=== PATIENT | male | born 1975 | race African-American/Black ===

== ENCOUNTER 2019-06-23 00:52 | Emergency (ER) | payer BC, SELFPAY ==
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
[2019-06-23] MEDS ORDERED: KETOROLAC 30 MG/ML INJ ONE (02:51)
[2019-06-23 03:19] LABS: Basophils % 0.5 % (0-1.3); Hematocrit 37.8 % (39.6-49.0); Lymphocytes % 31.5 % (15.3-44.8); MPV 8.6 fL (7.6-11.3); RBC Red Blood Cell Count 4.49 M/uL (4.33-5.43)
[2019-06-23 03:31] LABS: Albumin 3.7 g/dL (3.4-5.0); Bilirubin Total 0.3 mg/dL (0.2-1.0); Potassium 3.3 mmol/L (3.5-5.1); Uric Acid 3.6 mg/dL (3.5-7.2)
--- NOTE | 2019-06-23 04:20 | ER ---
Nurse's Notes [facility] Name: Mike Francis III Age: 44 yrs Sex: Male : 1975 Arrival Date: 06/23/2019 Time: 00:55 Bed 28 Private MD: Diagnosis: Pain in unspecified joint;Hypokalemia Presentation: 06/23 01:00 Presenting complaint: Patient states: hand pain/swelling that started about a week ago, ch2 moves from hand to hand, and to left knee. Transition of care: patient was not received from another setting of care. Onset of symptoms was June 16, 2019. Risk Assessment: Do you want to hurt yourself or someone else? Patient reports no desire to harm self or others. Initial Sepsis Screen: Does the patient meet any 2 criteria? No. Patient's initial sepsis screen is negative. Does the patient have a suspected source of infection? No. Patient's initial sepsis screen is negative. Care prior to arrival: None. Activity prior to arrival: None. 01:00 Acuity: Unassigned ch2 01:00 Method Of Arrival: Ambulatory ch2 Triage Assessment: 01:05 General: Appears in no apparent distress. uncomfortable, well groomed, well developed, ch2 well nourished, Behavior is calm, cooperative, Reports Denies fever, feeling ill, fatigue, chills. Pain: Complains of pain in right hand Pain currently is 8 out of 10 on a pain scale. Quality of pain is described as pressure, tender, throbbing, Alleviated by nothing. Historical: - Allergies: 03:35 Iodine; ch2 - Immunization history:: patient does not get flu vaccinated per routine. Screenin:13 Abuse screen: Denies threats or abuse. Denies injuries from another. Nutritional ch2 screening: No deficits noted. Tuberculosis screening: No symptoms or risk factors identified. Never had TB. Fall Risk None identified. No fall in past 12 months (0 pts). No secondary diagnosis (0 pts). IV access (20 points). Ambulatory Aid- None/Bed Rest/Nurse Assist (0 pts). Gait- Normal/Bed Rest/Wheelchair (0 pts) Mental Status- Oriented to own ability (0 pts). Assessment: 01:15 General: Appears in no apparent distress. uncomfortable, well groomed, well developed, ch2 well nourished, Behavior is calm, cooperative, appropriate for age, Reports Denies fever, feeling ill, fatigue, chills. 01:15 Pain: Complains of pain in right hand pain/swelling currently in right hand, pt reports ch2 pain/swelling has occurred in left hand and left knee but not at this time Is. Neuro: No deficits noted. Level of Consciousness is awake, alert, obeys commands, Oriented to person, place, time, situation, Appropriate for age [employer] are weak on right Weakness in right hand(s) Gait is steady, Speech is normal, Facial symmetry appears normal, Pupils are PERRLA, Intact Denies numbness in right hand and left hand. Cardiovascular: Denies chest pain, fatigue, shortness of breath, Heart tones S1 S2 present Capillary refill < 3 seconds in right in left fingers Patient's skin is warm and dry. no visible wound, skin D\T\I. Respiratory: No deficits noted. Airway is patent Respiratory effort is even, unlabored, Respiratory pattern is regular, symmetrical, Onset: The symptoms/episode began/occurred Denies cough, shortness of breath. GI: No deficits noted. No signs and/or symptoms were reported involving the gastrointestinal system. Abdomen is round non-distended, Reports normal bowel habits. : No deficits noted. No signs and/or symptoms were reported regarding the genitourinary system. Denies burning with urination, pain. EENT: No deficits noted. No signs and/or symptoms were reported regarding the EENT system. Derm: No deficits noted. No signs and/or symptoms reported regarding the dermatologic system. Musculoskeletal: Reports weakness in right hand pain in right hand LROM, patient denies injury/trauma Denies numbness in, right hand and left hand. 02:50 Reassessment: Patient appears in no apparent distress at this time. No changes from ch2 previously documented assessment. Patient and/or family updated on plan of care and expected duration. Pain level reassessed. Patient is alert, oriented x 3, equal unlabored respirations, skin warm/dry/pink. 03:31 General: Behavior is calm, quiet, patient resting with eyes closed, snoring. ch2 04:15 Reassessment: Patient appears in no apparent distress at this time. No changes from ch2 previously documented assessment. Patient and/or family updated on plan of care and expected duration. Pain level reassessed. Patient is alert, oriented x 3, equal unlabored respirations, skin warm/dry/pink. sitting up in bed, awake, no complaints or concerns at this time. Vital Signs: 01:08 BP 168 / 96; Pulse 68; Resp 18; Temp 98.5; Pulse Ox 99% ; Weight 124.74 kg; Height 6 ch2 ft. 4 in. (193.04 cm); 01:30 BP 168 / 96; Pulse 69; Resp 16; Pulse Ox 98% ; ch2 02:45 BP 182 / 100; Pulse 62; Resp 16; Pulse Ox 100% ; ch2 03:45 BP 163 / 106; Pulse 79; Resp 16; Pulse Ox 96% ; ch2 04:45 BP 157 / 94; Pulse 59; Resp 18; Pulse Ox 97% ; ch2 01:08 Body Mass Index 33.47 (124.74 kg, 193.04 cm) ch2 Vitals: 02:45 Cardiac Rhythm Assessment Regular. ch2 ED Course: 00:55 Patient arrived in ED. ds1 01:00 Arm band placed on left wrist. Patient placed in an exam room, on a stretcher, on pulse ch2 oximetry, Patient notified of wait time. 01:08 George Lockhart PA is PHCP. jmm 01:08 Domenic Blackmon MD is Attending Physician. jmm 01:40 Inserted saline lock: 20 gauge in left antecubital area, using aseptic technique. ch2 01:42 Initial lab(s) drawn, by mo, sent to lab. ch2 01:46 Patient has correct armband on for positive identification. Bed in low position. Call ch2 light in reach. Side rails up X 1. 01:46 Pulse ox on. NIBP on. Door closed. Noise minimized. Lights dimmed. Pillow given. ch2 02:58 Triage completed. ch2 04:19 Desmond Hill MD is Referral Physician. lee 05:20 IV discontinued, intact, bleeding controlled, No redness/swelling at site. Pressure ch2 dressing applied. 06:00 Wrist Right 3 View XRAY In Process Unspecified. EDMS 06:00 Hand Right 3 View XRAY In Process Unspecified. EDMS 06:00 Hand Left 3 View XRAY In Process Unspecified. EDMS 06:00 Knee Left 3 View XRAY In Process Unspecified. EDMS Administered Medications: 02:50 Drug: Ketorolac 30 mg Route: IVP; Site: left antecubital; ch2 03:25 Follow up: Response: No adverse reaction; Marked relief of symptoms; Pain is decreased ch2 05:12 Drug: SOLU-Medrol 125 mg Route: IVP; Site: left antecubital; ch2 05:12 Drug: predniSONE 20 mg Route: PO; ch2 05:12 Drug: Potassium Effervescent Tablet 25 mEq Route: PO; ch2 Outcome: 04:20 Discharge ordered by . lee 05:24 Discharged to home ambulatory. ch2 05:24 Condition: improved ch2 05:24 Discharge instructions given to patient, Instructed on discharge instructions, follow up and referral plans. medication usage, Demonstrated understanding of instructions, follow-up care, medications, Prescriptions given X 3. 05:42 Patient left the ED. ch2 Signatures: Dispatcher [employer] EDMS Domenic Blackmon MD MD cha Mickail, Joel, PA PA Shiloh Rueda ds1 Criss Blas RN RN ch2 Corrections: (The following items were deleted from the chart) 03: 02:55 Presenting complaint: Patient states: hand pain/swelling that started about a ch2 week ago, moves from hand to hand, and to left knee ch2 03: 02:55 Transition of care: patient was not received from another setting of care. ch2 ch2 03: 02:55 Onset of symptoms was June 16, 2019 ch2 ch2 : 02:55 Risk Assessment: Do you want to hurt yourself or someone else? Patient reports no ch2 desire to harm self or others. ch2 03: 02:55 Initial Sepsis Screen: Does the patient meet any 2 criteria? No. Patient's ch2 initial sepsis screen is negative. Does the patient have a suspected source of infection? No. Patient's initial sepsis screen is negative. ch2 03: 02:55 Care prior to arrival: None. ch2 ch2 03: 02:55 Activity prior to arrival: None. ch2 ch2 03: 02:55 Method Of Arrival: Ambulatory ch2 ch2 02:55 Acuity: IFEANYI 5 ch2 ch2 03:00 General: Appears in no apparent distress. uncomfortable, well groomed, well ch2 developed, well nourished, Behavior is calm, cooperative, Reports Denies fever, feeling ill, fatigue, chills, ch2 03: 03:00 Pain: Complains of pain in right hand Pain currently is 8 out of 10 on a pain ch2 scale. Quality of pain is described as pressure, tender, throbbing, Alleviated by nothing. ch2 05:38 03:45 BP 157 / 94; Pulse 59bpm; Resp 18bpm; Pulse Ox 97%; ch2 ch2
--- NOTE | 2019-06-23 04:21 | EDPHYS ---
Physician Documentation [facility] Name: Mike Francis III Age: 44 yrs Sex: Male : 1975 Arrival Date: 06/23/2019 Time: 00:55 Bed 28 Private MD: ED Physician Domenic Blackmon HPI: 06/23 01:44 This 44 yrs old Black Male presents to ER via Unassigned with complaints of Hand jmm Swelling, Hand Pain. 01:44 The patient or guardian reports pain. Onset: The symptoms/episode began/occurred jmm gradually, 1 week(s) ago. Modifying factors: The symptoms are alleviated by nothing, the symptoms are aggravated by movement. This is a 44 year old male with a history of dm, htn, that presents ot the ED with complaints of increased pain and swelling to his right wrist, right hand, left hand, left knee. Symptoms began approx 1 week ago and have gradually worsened since. . Historical: - Allergies: 03:35 Iodine; ch2 - Immunization history:: patient does not get flu vaccinated per routine. ROS: 01:44 Constitutional: Negative for fever, chills, and weight loss, Cardiovascular: Negative jmm for chest pain, palpitations, and edema, Respiratory: Negative for shortness of breath, cough, wheezing, and pleuritic chest pain. 01:44 MS/extremity: Positive for pain. 01:44 All other systems are negative. Exam: 01:44 Constitutional: This is a well developed, well nourished patient who is awake, alert, jmm and in no acute distress. Head/Face: atraumatic. Eyes: EOMI, no conjunctival erythema appreciated ENT: Moist Mucus Membranes Neck: Trachea midline, Supple Chest/axilla: Normal chest wall appearance and motion. Cardiovascular: Regular rate and rhythm. No edema appreciated Respiratory: Normal respirations, no respiratory distress appreciated Abdomen/GI: Non distended, soft 01:44 Musculoskeletal/extremity: pain noted diffusely to the right wrist joint, ip joints. left ip joints. no swelling appreciated to the left knee, FROM appreciated, compartment are soft, NVI. 01:44 Skin: Appearance: Color: normal in color. 01:44 Neuro: Orientation: is normal, Mentation: is normal, Memory: is normal. 01:44 Psych: Behavior/mood is pleasant, cooperative. Vital Signs: 01:08 BP 168 / 96; Pulse 68; Resp 18; Temp 98.5; Pulse Ox 99% ; Weight 124.74 kg; Height 6 ch2 ft. 4 in. (193.04 cm); 01:30 BP 168 / 96; Pulse 69; Resp 16; Pulse Ox 98% ; ch2 02:45 BP 182 / 100; Pulse 62; Resp 16; Pulse Ox 100% ; ch2 03:45 BP 163 / 106; Pulse 79; Resp 16; Pulse Ox 96% ; ch2 04:45 BP 157 / 94; Pulse 59; Resp 18; Pulse Ox 97% ; ch2 01:08 Body Mass Index 33.47 (124.74 kg, 193.04 cm) ch2 MDM: 01:09 Patient medically screened. [facility] 02:56 Data reviewed: vital signs, nurses notes. Transition of care: After a detail discussion alvin of the patient's case, care is transferred to Domenic Blackmon MD. 06/23 01:42 Order name: CBC with Diff [facility] 06/23 01:42 Order name: CMP [facility] 06/23 01:42 Order name: Uric Acid [facility] 06/23 03:23 Order name: CBC with Automated Diff; Complete Time: 04:18 EDMS 06/23 03:31 Order name: Comprehensive Metabolic Panel; Complete Time: 04:18 EDMS 06/23 03:31 Order name: Uric Acid; Complete Time: 04:18 EDMS 06/23 01:44 Order name: Wrist Right 3 View XRAY [facility] 06/23 01:44 Order name: Hand Right 3 View XRAY [facility] 06/23 01:44 Order name: Hand Left 3 View XRAY [facility] 06/23 01:44 Order name: Knee Left 3 View XRAY [facility] 06/23 01:42 Order name: Saline Lock [facility] Administered Medications: 02:50 Drug: Ketorolac 30 mg Route: IVP; Site: left antecubital; ch2 03:25 Follow up: Response: No adverse reaction; Marked relief of symptoms; Pain is decreased ch2 05:12 Drug: SOLU-Medrol 125 mg Route: IVP; Site: left antecubital; ch2 05:12 Drug: predniSONE 20 mg Route: PO; ch2 05:12 Drug: Potassium Effervescent Tablet 25 mEq Route: PO; ch2 Disposition: 04:21 Co-signature as Attending Physician, Domenic Blackmon MD I agree with the assessment and lee plan of care. Disposition: 06/23/19 04:20 Discharged to Home. Impression: Pain in unspecified joint, Hypokalemia. - Condition is Stable. - Discharge Instructions: Potassium Content of Foods, Musculoskeletal Pain, Hypokalemia, Joint Pain. - Prescriptions for Ibuprofen 800 mg Oral Tablet - take 1 tablet by ORAL route every 8 hours As needed take with food; 30 tablet. orphenadrine citrate 100 mg Oral Tablet Sustained Release - take 1 tablet by ORAL route 2 times per day As needed; 20 tablet. Medrol (Jaxon) 4 mg Oral Tablets, Dose Pack - take 1 tablet by ORAL route as directed - follow package instructions; 1 packet. - Medication Reconciliation Form, Thank You Letter, Antibiotic Education, Prescription Opioid Use form. - Follow up: Desmond Hill; When: 2 - 3 days; Reason: Recheck today's complaints, Continuance of care, Re-evaluation by your physician. Signatures: Dispatcher [employer] Domenic Porter MD MD cha Mickail, Joel, PA PA Criss Garibay, RN RN ch2 Corrections: (The following items were deleted from the chart) 05:42 04:20 06/23/2019 04:20 Discharged to Home. Impression: Pain in unspecified joint; ch2 Hypokalemia. Condition is Stable. Discharge Instructions: Joint Pain. Prescriptions for Ibuprofen 800 mg Oral Tablet - take 1 tablet by ORAL route every 8 hours As needed take with food; 30 tablet, orphenadrine citrate 100 mg Oral Tablet Sustained Release - take 1 tablet by ORAL route 2 times per day As needed; 20 tablet. and Forms are Medication Reconciliation Form, Thank You Letter, Antibiotic Education, Prescription Opioid Use. Follow up: Desmond Hill; When: 2 - 3 days; Reason: Recheck today's complaints, Continuance of care, Re-evaluation by your physician. [facility]
[2019-06-23] MEDS ORDERED: predniSONE 20 MG TAB ONE (05:05)
[2019-06-23] MEDS ORDERED: METHYLPREDNISOLONE 125 MG INJ ONE (05:05)
[2019-06-23] MEDS ORDERED: POTASSIUM 25 MEQ EFFERV TAB ONE (05:06)
[2019-06-23 11:07] VITALS: TEMP 98.5
[2019-06-23 11:11] VITALS: BP 157/94; O2SAT 97
--- NOTE | 2019-06-26 15:22 | RAD REPORT ---
EXAM DESCRIPTION: RAD - Hand Left 3 View - 06/23/2019 2:41 am CLINICAL HISTORY: PAIN COMPARISON: None. TECHNIQUE: XR HAND 3 OR MORE VIEWS 06/23/2019 1:44 AM MAITRE D' FINDINGS: There is an age-indeterminate deformity of the proximal base of the distal osseous body. J oint spaces are preserved. Soft tissues are unremarkable. IMPRESSION: Age-indeterminate abnormality of the proximal base of the distal fourth phalanx. Electronically signed by: Fabian Lorenzo MD 06/23/2019 3:02 AM MAITRE D' Due to temporary technical issues with the PACS/Fluency reporting system, reports are being signed by the in house radiologist as a courtesy to ensure prompt reporting. The interpreting radiologist is f ully responsible for the content of the report.
--- NOTE | 2019-06-26 15:24 | RAD REPORT ---
EXAM DESCRIPTION: RAD - Wrist Right 3 View - 06/23/2019 2:41 am CLINICAL HISTORY: Pain. COMPARISON: None. TECHNIQUE: AP, lateral, and oblique views of the right wrist. FINDINGS: There is dorsal wrist and forearm subcutaneous edema. There is no fracture. No bony malali gnment. Joint spaces appear normal. Normal bone density. No subcutaneous emphysema or foreign body. IMPRESSION: 1. Dorsal right wrist and forearm edema. No acute bony finding within the right wrist. Electronically signed by: Carolee Newman DO 06/23/2019 3:02 AM AXMINSTER RUG SETTER Due to temporary technical issues with the PACS/Fluency reporting system, reports are being signed by the in house radiologist as a courtesy to ensure prompt reporting. The interpreting radiologist is f ully responsible for the content of the report.
--- NOTE | 2019-06-26 15:25 | RAD REPORT ---
EXAM DESCRIPTION: RAD - Knee Left 3 View - 06/23/2019 2:41 am CLINICAL HISTORY: PAIN COMPARISON: None. TECHNIQUE: XR KNEE 3 VIEWS 06/23/2019 1:44 AM ASPHALT PLANT OPERATOR FINDINGS: There is no fracture. There is mild narrowing of the medial knee compartment. There is pre patellar soft tissue swelling. IMPRESSION: No acute osseous findings. Electronically signed by: Fabian Lorenzo MD 06/23/2019 3:16 AM [employer]HALT PLANT OPERATOR Due to temporary technical issues with the PACS/Fluency reporting system, reports are being signed by the in house radiologist as a courtesy to ensure prompt reporting. The interpreting radiologist is f ully responsible for the content of the report.
--- NOTE | 2019-06-26 15:27 | RAD REPORT ---
EXAM DESCRIPTION: RAD - Hand Right 3 View - 06/23/2019 2:41 am CLINICAL HISTORY: PAIN COMPARISON: None. TECHNIQUE: XR HAND 3 OR MORE VIEWS 06/23/2019 1:44 AM RETAIL SUPPORT MANAGER FINDINGS: There is no fracture. Joint spaces are preserved. There is mild dorsal soft tissue swell ing. IMPRESSION: No acute osseous findings. Electronically signed by: Fabian Lorenzo MD 06/23/2019 3:16 AM RETAIL SUPPORT MANAGER Due to temporary technical issues with the PACS/Fluency reporting system, reports are being signed by the in house radiologist as a courtesy to ensure prompt reporting. The interpreting radiologist is f ully responsible for the content of the report.
== END 2019-06-23 05:42 | disposition home or self-care (01) ==
LOC: ER 00:52
DX: E87.6 Hypokalemia (principal); M79.642 Pain in left hand; M79.641 Pain in right hand; M25.531 Pain in right wrist; Z91.048 Other nonmedicinal substance allergy status
CPT/HCPCS: 36415; 80053; 84550; 85025; 96374; 96375; 99284; J2930; J7512

== ENCOUNTER 2020-04-07 09:41 | Emergency (ER) | payer SELFPAY ==
[2020-04-07] MEDS ORDERED: METOCLOPRAMIDE 10 MG/2mL INJ ONE (11:03)
[2020-04-07] MEDS ORDERED: KETOROLAC 30 MG/ML INJ ONE (11:03)
[2020-04-07] MEDS ORDERED: DIPHENHYDRAMINE 50 MG/ML VIAL ONE (11:03)
[2020-04-07] MEDS ORDERED: NA CHLORIDE 0.9% 1,000 ML ONE (11:03)
--- NOTE | 2020-04-07 11:28 | RAD REPORT ---
EXAM DESCRIPTION: CT - Head Brain Wo Cont - 04/07/2020 11:04 am CLINICAL HISTORY: Headache COMPARISON: None. TECHNIQUE: Computed axial tomography of the head was obtained. IV contrast was not requested. All CT scans are performed using dose optimization technique as appropriate and may include automated exposure control or mA/KV adjustment according to patient size. FINDINGS: An intracranial bleed is not seen . The ventricles are normal in caliber. No extra-axial fluid collection is noted. Fluid within the sinuses/ mastoids is not seen. IMPRESSION: No acute intracranial abnormality is seen. If patient's symptoms persist MRI of the bra in would be recommended.
[2020-04-07 11:30] LABS: Absolute Lymphocytes (CBC) 2.6 K/uL (0.7-4.9); Basophils % 2.6 % (0-1.3); Hematocrit 38.4 % (39.6-49.0); Lymphocytes % 22.9 % (15.3-44.8); MPV 7.4 fL (7.6-11.3)
--- NOTE | 2020-04-07 11:43 | EDPHYS ---
Physician Documentation [facility] Name: Mike Francis III Age: 45 yrs Sex: Male : 1975 Arrival Date: 04/07/2020 Time: 09:44 Bed 4 Private MD: LUISA Physician Domenic Blackmon HPI: 04/07 10:42 This 45 yrs old Black Male presents to ER via Ambulatory with complaints of Headache > lee 24hrs Old, Nausea/Vomiting/Diarrhea, Abdominal Pain. 10:42 The patient complains of pain to the forehead, left frontal area and right frontal lee area. The patient describes the headache as a pressure. Onset: The symptoms/episode began/occurred 2 day(s) ago. Associated signs and symptoms: Pertinent positives: vomiting. Severity of symptoms: At its worst the pain was mild, in the emergency department the pain is unchanged. Headache History: The patient has had previous headaches and this one is similar to previous episodes. The symptoms are alleviated by nothing. the symptoms are aggravated by nothing. The patient has experienced similar episodes in the past, several times. Historical: - Allergies: 10:06 Iodine; ca1 - Home Meds: 10:06 atorvastatin 20 mg oral tab once daily [Active]; valsartan-hydrochlorothiazide 320-25 ca1 mg oral tab 1 tab once daily [Active]; baclofen 10 mg Oral tab 1 tab twice a day [Active]; carvedilol 25 mg oral tab 1 tab 2 times per day [Active]; fluoxetine 40 mg Oral cap 1 cap once daily [Active]; clonidine HCl 0.2 mg Oral tab 1 tab 2 times per day [Active]; hydrocodone-acetaminophen 7.5-325 mg Oral tab [Active]; etodolac 500 mg Oral tab 1 tab 2 times per day [Active]; buspirone 15 mg Oral tab 1 tab three times a day [Active]; metformin 850 mg Oral tab 1 tab 2 times per day [Active]; Trazodone Oral [Active]; amlodipine 10 mg tab 1 tab once daily [Active]; - PMHx: 10:06 Hypertension; Diabetes - NIDDM; High Cholesterol; Mild Heart Attack x 2; ca1 - PSHx: 10:06 Appendectomy; ca1 - Immunization history:: Adult Immunizations up to date. - Social history:: Smoking status: Patient reports the use of cigarette tobacco products, smokes one-half pack cigarettes per day. - Family history:: not pertinent. ROS: 10:42 Constitutional: Negative for fever, chills, and weight loss, Eyes: Negative for injury, lee pain, redness, and discharge, ENT: Negative for injury, pain, and discharge, Neck: Negative for injury, pain, and swelling, Cardiovascular: Negative for chest pain, palpitations, and edema, Respiratory: Negative for shortness of breath, cough, wheezing, and pleuritic chest pain, Abdomen/GI: Negative for abdominal pain, nausea, vomiting, diarrhea, and constipation, Back: Negative for injury and pain, : Negative for injury, bleeding, discharge, and swelling, MS/Extremity: Negative for injury and deformity, Skin: Negative for injury, rash, and discoloration, Psych: Negative for depression, anxiety, suicide ideation, homicidal ideation, and hallucinations, Allergy/Immunology: Negative for hives, rash, and allergies, Endocrine: Negative for neck swelling, polydipsia, polyuria, polyphagia, and marked weight changes. 10:42 Neuro: Positive for headache. Exam: 10:42 Constitutional: This is a well developed, well nourished patient who is awake, alert, lee and in no acute distress. Head/Face: Normocephalic, atraumatic. Eyes: Pupils equal round and reactive to light, extra-ocular motions intact. Lids and lashes normal. Conjunctiva and sclera are non-icteric and not injected. Cornea within normal limits. Periorbital areas with no swelling, redness, or edema. ENT: Nares patent. No nasal discharge, no septal abnormalities noted. Tympanic membranes are normal and external auditory canals are clear. Oropharynx with no redness, swelling, or masses, exudates, or evidence of obstruction, uvula midline. Mucous membranes moist. Neck: Trachea midline, no thyromegaly or masses palpated, and no cervical lymphadenopathy. Supple, full range of motion without nuchal rigidity, or vertebral point tenderness. No Meningismus. Chest/axilla: Normal chest wall appearance and motion. Nontender with no deformity. No lesions are appreciated. Cardiovascular: Regular rate and rhythm with a normal S1 and S2. No gallops, murmurs, or rubs. Normal PMI, no JVD. No pulse deficits. Respiratory: Lungs have equal breath sounds bilaterally, clear to auscultation and percussion. No rales, rhonchi or wheezes noted. No increased work of breathing, no retractions or nasal flaring. Abdomen/GI: Soft, non-tender, with normal bowel sounds. No distension or tympany. No guarding or rebound. No evidence of tenderness throughout. Back: No spinal tenderness. No costovertebral tenderness. Full range of motion. Male : Normal genitalia with no discharge or lesions. Skin: Warm, dry with normal turgor. Normal color with no rashes, no lesions, and no evidence of cellulitis. MS/ Extremity: Pulses equal, no cyanosis. Neurovascular intact. Full, normal range of motion. Neuro: Awake and alert, GCS 15, oriented to person, place, time, and situation. Cranial nerves II-XII grossly intact. Motor strength 5/5 in all extremities. Sensory grossly intact. Cerebellar exam normal. Normal gait. Psych: Awake, alert, with orientation to person, place and time. Behavior, mood, and affect are within normal limits. Vital Signs: 09:58 BP 118 / 85; Pulse 69; Resp 16 S; Temp 97.8(TE); Pulse Ox 99% on R/A; Weight 122.47 kg ca1 (R); Height 6 ft. 4 in. (193.04 cm) (R); Pain 7/10; 11:00 BP 122 / 73; Pulse 59; Resp 16; Pulse Ox 100% ; bp 12:18 BP 120 / 69; Pulse 63; Resp 17; Temp 97.9; Pulse Ox 100% ; bp 09:58 Body Mass Index 32.87 (122.47 kg, 193.04 cm) ca1 [place] Coma Score: 10:44 Eye Response: spontaneous(4). Verbal Response: oriented(5). Motor Response: obeys lee commands(6). Total: 15. MDM: 10:13 Patient medically screened. lee 10:44 Differential diagnosis: cluster headache, hyponatremia, sinusitis, tension headache. lee Data reviewed: vital signs, nurses notes, lab test result(s), radiologic studies, CT scan. Data interpreted: maxillofacial prosthetics dentist: not applicable for this patient encounter. rate is 69 beats/min, rhythm is regular, Pulse oximetry: on room air is 99 %. Test interpretation: by ED physician or midlevel provider:. Counseling: I had a detailed discussion with the patient and/or guardian regarding: the historical points, exam findings, and any diagnostic results supporting the discharge/admit diagnosis, lab results, radiology results, the need for outpatient follow up, for definitive care, a neurologist. 11:42 ED course: improveds, meds given for nausea, will follow up with dr ibrahim. [facility] 04/07 10:42 Order name: CBC with Diff [facility] 04/07 10:42 Order name: Comprehensive Metabolic Panel; Complete Time: 12:00 [facility] 04/07 10:42 Order name: Lipase; Complete Time: 12:00 [facility] 04/07 10:42 Order name: CT Head Brain wo Cont; Complete Time: 11:41 [facility] 04/07 10:43 Order name: CBC with Automated Diff; Complete Time: 11:41 [facility] 04/07 10:42 Order name: Urine Dipstick-Ancillary (obtain specimen); Complete Time: 12:18 [facility] Administered Medications: 11:00 Drug: NS 0.9% 1000 ml Route: IV; Rate: 1 bolus; Site: right antecubital; bp 12:18 Follow up: IV Status: Completed infusion; IV Intake: 1000ml bp 11:00 Drug: Reglan 10 mg Route: IVP; Site: right antecubital; bp 12:17 Follow up: Response: Pain is decreased bp 11:00 Drug: Benadryl 50 mg Route: IVP; Site: right antecubital; bp 12:17 Follow up: Response: Pain is decreased bp 11:00 Drug: TORadol 30 mg Route: IVP; Site: right antecubital; bp 12:17 Follow up: Response: Pain is decreased bp 12:05 Drug: Potassium Effervescent Tablet 50 mEq Route: PO; bp 12:18 Follow up: Response: No adverse reaction bp Disposition: 04/07/20 11:42 Discharged to Home. Impression: Type 2 diabetes mellitus, Headache, Migraine, Hypokalemia. - Condition is Stable. - Discharge Instructions: Type 2 Diabetes Mellitus, Diagnosis, Adult, Potassium Content of Foods, General Headache Without Cause, Migraine Headache, Hypertension, Migraine Headache, Jxdv-[id number], General Headache Without Cause, Gwqb-ek-Ibtn, Type 2 Diabetes Mellitus, Diagnosis, Adult, Sxas-iv-Qigj, Hypokalemia. - Prescriptions for Zofran 4 mg Oral Tablet - take 1 tablet by ORAL route every 12 hours As needed; 14 tablet. - Medication Reconciliation Form, Thank You Letter, Antibiotic Education, Prescription Opioid Use form. - Follow up: Private Physician; When: 2 - 3 days; Reason: Recheck today's complaints, Continuance of care, Re-evaluation by your physician. Follow up: Shmuel Ibrahim; When: 2 - 3 days; Reason: Recheck today's complaints, Re-evaluation by your physician. - Problem is new. - Symptoms have improved. Signatures: Dispatcher [employer] EDMS Domenic Blackmon MD MD cha Peltier, Brian RN RN bp Ayana, Angela RN RN ca1 Corrections: (The following items were deleted from the chart) 12:01 11:42 04/07/2020 11:42 Discharged to Home. Impression: Type 2 diabetes mellitus; lee Headache; Migraine. Condition is Stable. Discharge Instructions: Type 2 Diabetes Mellitus, Diagnosis, Adult, General Headache Without Cause, Migraine Headache, Hypertension, Migraine Headache, Xvnn-pz-Xzag, General Headache Without Cause, Jwzp-po-Bksb, Type 2 Diabetes Mellitus, Diagnosis, Adult, Azhn-rv-Rrrr. Prescriptions for Zofran 4 mg Oral Tablet - take 1 tablet by ORAL route every 12 hours As needed; 14 tablet. and Forms are Medication Reconciliation Form, Thank You Letter, Antibiotic Education, Prescription Opioid Use. Follow up: Private Physician; When: 2 - 3 days; Reason: Recheck today's complaints, Continuance of care, Re-evaluation by your physician. Follow up: Shmuel Ibrahim; When: 2 - 3 days; Reason: Recheck today's complaints, Re-evaluation by your physician. Problem is new. Symptoms have improved. [facility] 12:20 12:01 04/07/2020 11:42 Discharged to Home. Impression: Type 2 diabetes mellitus; bp Headache; Migraine; Hypokalemia. Condition is Stable. Discharge Instructions: Type 2 Diabetes Mellitus, Diagnosis, Adult, General Headache Without Cause, Migraine Headache, Hypertension, Migraine Headache, Jwmq-ng-Ioqp, General Headache Without Cause, Bezk-hf-Nxsz, Type 2 Diabetes Mellitus, Diagnosis, Adult, Vqvl-xy-Wvbj. Prescriptions for Zofran 4 mg Oral Tablet - take 1 tablet by ORAL route every 12 hours As needed; 14 tablet. and Forms are Medication Reconciliation Form, Thank You Letter, Antibiotic Education, Prescription Opioid Use. Follow up: Private Physician; When: 2 - 3 days; Reason: Recheck today's complaints, Continuance of care, Re-evaluation by your physician. Follow up: Shmuel Ibrahim; When: 2 - 3 days; Reason: Recheck today's complaints, Re-evaluation by your physician. Problem is new. Symptoms have improved. lee
--- NOTE | 2020-04-07 11:43 | ER ---
Nurse's Notes [facility] Name: Mike Francis III Age: 45 yrs Sex: Male : 1975 Arrival Date: 04/07/2020 Time: 09:44 Bed 4 Private MD: Diagnosis: Type 2 diabetes mellitus;Headache;Migraine;Hypokalemia Presentation: 04/07 09:58 Chief complaint: Patient states: Headache x 3 days. Mid abdominal pain and cramps, ca1 N/V/D x 3-4 days. Fever on and off x 3-4 days. Bilateral ear aches. Denies cough, nasal congestion. Coronavirus screen: Client denies travel out of the [place] in the last 14 days. At this time, the client does not indicate any symptoms associated with coronavirus-19. Ebola Screen: Patient negative for fever greater than or equal to 101.5 degrees Fahrenheit, and additional compatible Ebola Virus Disease symptoms Patient denies exposure to infectious person. Patient denies travel to an Ebola-affected area in the 21 days before illness onset. No symptoms or risks identified at this time. Initial Sepsis Screen: Does the patient meet any 2 criteria? No. Patient's initial sepsis screen is negative. Does the patient have a suspected source of infection? No. Patient's initial sepsis screen is negative. Risk Assessment: Do you want to hurt yourself or someone else? Patient reports no desire to harm self or others. Onset of symptoms was April 07, 2020. 09:58 Method Of Arrival: Ambulatory ca1 09:58 Acuity: IFEANYI 3 ca1 Triage Assessment: 10:17 Headache History: The patient has had previous headaches and this one is similar to bp previous episodes. General: Appears in no apparent distress. uncomfortable, Behavior is cooperative, appropriate for age, anxious. Pain: Complains of pain in head Pain currently is 6 out of 10 on a pain scale. Pain began 2-3 days ago. Also complains of nausea. EENT: No deficits noted. Neuro: Reports headache. Cardiovascular: No deficits noted. Respiratory: No deficits noted. GI: No signs and/or symptoms were reported involving the gastrointestinal system. : No signs and/or symptoms were reported regarding the genitourinary system. Derm: No deficits noted. Musculoskeletal: No deficits noted. Historical: - Allergies: 10:06 Iodine; ca1 - Home Meds: 10:06 atorvastatin 20 mg oral tab once daily [Active]; valsartan-hydrochlorothiazide 320-25 ca1 mg oral tab 1 tab once daily [Active]; baclofen 10 mg Oral tab 1 tab twice a day [Active]; carvedilol 25 mg oral tab 1 tab 2 times per day [Active]; fluoxetine 40 mg Oral cap 1 cap once daily [Active]; clonidine HCl 0.2 mg Oral tab 1 tab 2 times per day [Active]; hydrocodone-acetaminophen 7.5-325 mg Oral tab [Active]; etodolac 500 mg Oral tab 1 tab 2 times per day [Active]; buspirone 15 mg Oral tab 1 tab three times a day [Active]; metformin 850 mg Oral tab 1 tab 2 times per day [Active]; Trazodone Oral [Active]; amlodipine 10 mg tab 1 tab once daily [Active]; - PMHx: 10:06 Hypertension; Diabetes - NIDDM; High Cholesterol; Mild Heart Attack x 2; ca1 - PSHx: 10:06 Appendectomy; ca1 - Immunization history:: Adult Immunizations up to date. - Social history:: Smoking status: Patient reports the use of cigarette tobacco products, smokes one-half pack cigarettes per day. - Family history:: not pertinent. Screenin:18 Abuse screen: Denies threats or abuse. Denies injuries from another. Nutritional bp screening: No deficits noted. Tuberculosis screening: No symptoms or risk factors identified. Fall Risk None identified. Assessment: 10:18 General: SEE TRIAGE NOTE. bp 11:00 Reassessment: PT TO CT WITH BOILER TENDER. bp 11:19 Reassessment: PT RETURNED FROM CT. bp 11:49 Reassessment: D/C ON HOLD PENDING LAB RESULTS. bp 12:18 Reassessment: PT D/C HOME AMBULATORY, DX WITH HYPOKALEMIA AND MIGRAINE LOUISE. bp Vital Signs: 09:58 BP 118 / 85; Pulse 69; Resp 16 S; Temp 97.8(TE); Pulse Ox 99% on R/A; Weight 122.47 kg ca1 (R); Height 6 ft. 4 in. (193.04 cm) (R); Pain 7/10; 11:00 BP 122 / 73; Pulse 59; Resp 16; Pulse Ox 100% ; bp 12:18 BP 120 / 69; Pulse 63; Resp 17; Temp 97.9; Pulse Ox 100% ; bp 09:58 Body Mass Index 32.87 (122.47 kg, 193.04 cm) ca1 [place] Coma Score: 10:44 Eye Response: spontaneous(4). Verbal Response: oriented(5). Motor Response: obeys lee commands(6). Total: 15. ED Course: 09:44 Patient arrived in ED. ag5 10:00 Triage completed. ca1 10:06 Arm band placed on right wrist. ca1 10:13 Domenic Blackmon MD is Attending Physician. lee 10:16 Marlon Gill, AD is Primary Nurse. bp 10:18 Patient has correct armband on for positive identification. Bed in low position. Call bp light in reach. Side rails up X2. 11:04 CT Head Brain wo Cont In Process Unspecified. EDMS 11:19 Inserted saline lock: 20 gauge in right antecubital area, using aseptic technique. bp Blood collected. 11:21 CBC with Diff Sent. bp 11:42 Shmuel Soria MD is Referral Physician. lee 12:18 No provider procedures requiring assistance completed. IV discontinued, intact, bp bleeding controlled, No redness/swelling at site. Pressure dressing applied. Administered Medications: 11:00 Drug: NS 0.9% 1000 ml Route: IV; Rate: 1 bolus; Site: right antecubital; bp 12:18 Follow up: IV Status: Completed infusion; IV Intake: 1000ml bp 11:00 Drug: Reglan 10 mg Route: IVP; Site: right antecubital; bp 12:17 Follow up: Response: Pain is decreased bp 11:00 Drug: Benadryl 50 mg Route: IVP; Site: right antecubital; bp 12:17 Follow up: Response: Pain is decreased bp 11:00 Drug: TORadol 30 mg Route: IVP; Site: right antecubital; bp 12:17 Follow up: Response: Pain is decreased bp 12:05 Drug: Potassium Effervescent Tablet 50 mEq Route: PO; bp 12:18 Follow up: Response: No adverse reaction bp Intake: 12:18 IV: 1000ml; Total: 1000ml. bp Outcome: 11:42 Discharge ordered by . lee 12:18 Discharged to home ambulatory. bp 12:18 Condition: stable 12:18 Discharge instructions given to patient, Instructed on discharge instructions, follow up and referral plans. medication usage, Demonstrated understanding of instructions, follow-up care, medications, Prescriptions given X 1. 12:20 Patient left the ED. bp Signatures: Dispatcher [employer] Domenic Porter MD MD cha Peltier, Brian, RN RN Angela Henderson RN RN [facility] Edy Bhatti ag
[2020-04-07 11:46] LABS: Albumin 3.8 g/dL (3.4-5.0); Bilirubin Total 0.4 mg/dL (0.2-1.0); Protein, Total 7.4 g/dL (6.4-8.2)
[2020-04-07] MEDS ORDERED: POTASSIUM 25 MEQ EFFERV TAB ONE (12:20)
[2020-04-07 12:31] VITALS: O2SAT 100
[2020-04-07 12:32] VITALS: BP 120/69; TEMP 97.9
== END 2020-04-07 12:20 | disposition home or self-care (01) ==
LOC: ER 09:41
DX: G43.909 Migraine, unspecified, not intractable, without status migrainosus (principal); E87.6 Hypokalemia; E11.9 Type 2 diabetes mellitus without complications; F17.210 Nicotine dependence, cigarettes, uncomplicated; I10 Essential (primary) hypertension; E78.00 Pure hypercholesterolemia, unspecified; I25.2 Old myocardial infarction; Z88.8 Allergy status to other drugs, medicaments and biological substances
CPT/HCPCS: 36415; 70450; 80053; 83690; 85025; 96361; 96374; 96375; 99284; J1200; J2765; J7030

== ENCOUNTER 2020-09-23 09:28 | Inpatient (IN) | payer SELFPAY ==
--- NOTE | 2020-09-23 10:11 | RAD REPORT ---
EXAM DESCRIPTION: CT - Ct Stroke Brain Wo Cont - 09/23/2020 10:00 am CLINICAL HISTORY: Headache COMPARISON: 2019 TECHNIQUE: Computed axial tomography of the head was obtained. All CT scans are performed using dose optimization technique as appropriate and may include automated exposure control or mA/KV adjustment according to patient size. FINDINGS: An intracranial bleed is not seen . The ventricles are normal in caliber. No extra-axial fluid collection is noted. Mild to moderate low-density within periventricular, deep and subcortical white matter likely ischemi c changes secondary to small vessel disease Fluid within the sinuses/ mastoids is not seen. Mild chronic sinusitis IMPRESSION: No acute intracranial abnormality is seen. If patient's symptoms persist MRI of the bra in would be recommended. Dr Aldridge of the emergency room was notified at 10:07 a.m. September 23, 2020
[2020-09-23 10:13] LABS: Absolute Lymphocytes (CBC) 1.7 K/uL (0.7-4.9); Basophils % 1.5 % (0-1.3); Hematocrit 32.1 % (39.6-49.0); Lymphocytes % 18.6 % (15.3-44.8); MPV 7.3 fL (7.6-11.3); RBC Red Blood Cell Count 4.23 M/uL (4.33-5.43)
[2020-09-23 10:16] LABS: Protime INR 1.09
[2020-09-23 10:27] LABS: BUN Blood Urea Nitrogen 9 mg/dL (7-18); Bicarbonate 32 mmol/L (21-32); Creatine Phosphokinase 69 U/L (39-308); Glucose Level 118 mg/dL (74-106); Potassium 3.1 mmol/L (3.5-5.1); Sodium Level 142 mmol/L (136-145); Troponin (Emerg Dept Use Only) < 0.02 ng/mL (0.0-0.045)
--- NOTE | 2020-09-23 10:56 | RAD REPORT ---
EXAM DESCRIPTION: Johny Single View09/23/2020 10:50 am CLINICAL HISTORY: Confusion COMPARISON: none FINDINGS: The lungs appear clear of acute infiltrate. The heart is normal size IMPRESSION: No acute abnormalities displayed
[2020-09-23 12:25] LABS: Urine Blood NEGATIVE (NEG); Urine Glucose NEGATIVE (NEG); Urine Protein 1+ (NEG)
[2020-09-23 12:26] LABS: Barbiturates NEGATIVE (NEGATIVE); Benzodiazepines NEGATIVE (NEGATIVE); Cocaine NEGATIVE (NEGATIVE); METHAMPHETAM NEGATIVE (NEGATIVE); Methadone NEGATIVE (NEGATIVE); Opiates NEGATIVE (NEGATIVE); Phencyclidine NEGATIVE (NEGATIVE); THC Cannibis NEGATIVE (NEGATIVE)
--- NOTE | 2020-09-23 13:17 | EDPHYS ---
Physician Documentation [facility] Name: Mike Francis III Age: 45 yrs Sex: Male : 1975 Arrival Date: 09/23/2020 Time: 09:[address] Private MD: ED Physician Romario Aldridge HPI: 09/23 09:43 This 45 yrs old Black Male presents to ER via Unassigned with complaints of Slurred rn Speech, Confusion. 09:43 The patient presents to the emergency department with a speech or higher order brain rn function problem, aphasia. Onset: The symptoms/episode began/occurred last night. Context: occurred at home, occurred while the patient was at rest. Associated signs and symptoms: Pertinent positives: altered mental status, headache, Pertinent negatives: fever, syncope. Severity of symptoms: At their worst the symptoms were moderate in the emergency department the symptoms are unchanged. Current symptoms: confusion. The patient has not experienced similar symptoms in the past. reports began "acting funny" last night, seemed confused and didn't understand simple commands, worse this morning, not speaking, running into things, twitching on right side of body, also reports episode last night of stiffening and confusion. No previous stroke or seizure. . Historical: - Allergies: 09:47 Iodine; iw - PMHx: :47 Diabetes - NIDDM; High Cholesterol; Hypertension; Mild Heart Attack x 2; iw - PSHx: 09:47 Appendectomy; iw - Immunization history:: Adult Immunizations up to date. - Family history:: not pertinent. - Social history:: Smoking status: Patient reports the use of cigarette tobacco products, smokes one pack cigarettes per day. - Hospitalizations: : No recent hospitalization is reported. - History obtained from: . ROS: 09:43 Unable to obtain ROS due to altered mental status, patient being uncooperative. rn Exam: :43 Constitutional: This is a well developed, well nourished patient who is awake, slow to rn respond, not following commands Head/Face: Normocephalic, atraumatic. Eyes: Pupils equal round and reactive to light, doees not track ENT: dry MM Neck: Supple, full range of motion without nuchal rigidity, or vertebral point tenderness. No Meningismus. Cardiovascular: Regular rate and rhythm. No pulse deficits. Respiratory: No increased work of breathing, no retractions or nasal flaring. Abdomen/GI: soft, non-tender Skin: Warm, dry MS/ Extremity: Pulses equal, no cyanosis Neuro: Awake, slow to respond, nods to questions but not speaking, does not follow all commands, does not track or follow finger. + intermittent spasm RUE. All 4 extremities with FROM passively, does not follow commands or leave extremities up to test. + left sided facial droop. Vital Signs: 09:48 BP 135 / 90; Pulse 83; Resp 16; Pulse Ox 100% on R/A; iw 10:11 BP 124 / 75; Pulse 77; Resp 20; Pulse Ox 100% on R/A; sr5 11:00 BP 129 / 77; Pulse 92; Resp 18; Pulse Ox 99% ; bw 11:20 BP 123 / 81; Pulse 71; Resp 15; Pulse Ox 100% ; bw 13:00 BP 128 / 82; Pulse 97; Resp 15; Pulse Ox 100% ; bw 14:34 BP 139 / 81; Pulse 75; Resp 18; Pulse Ox 100% on R/A; jl7 16:04 BP 137 / 92; Pulse 76; Resp 12; Pulse Ox 100% ; bw 16:43 BP 136 / 84; Pulse 79; Resp 15; Pulse Ox 100% on R/A; bw 10:[address] sr5 NIH Stroke Scale Scores: 09:46 NIHSS Score: 14 bw Herreid Coma Score: 09:46 Eye Response: to voice(3). Verbal Response: inappropriate words(3). Motor Response: bw localizes pain(5). Total: 11. 14:34 Eye Response: spontaneous(4). Verbal Response: confused(4). Motor Response: obeys jl7 commands(6). Total: 14. MDM: 09:36 Patient medically screened. rn 09:52 ED course: Onset last night, no indication for tPA given outside of window, pt in CT rn scan now.. 10:07 ED course: CT head no acute findings per Dr. Ochoa. rn 13:15 Data reviewed: vital signs, nurses notes, lab test result(s), EKG, radiologic studies, rn CT scan, and as a result, I will admit patient. Counseling: I had a detailed discussion with the patient and/or guardian regarding: the historical points, exam findings, and any diagnostic results supporting the discharge/admit diagnosis, lab results, radiology results, the need for further work-up and treatment in the hospital. Response to treatment: the patient's symptoms have mildly improved after treatment, and as a result, I will admit patient. 09/23 09:43 Order name: CPK; Complete Time: 10:55 rn 09/23 09:43 Order name: Troponin (emerg Dept Use Only); Complete Time: 10:55 rn 09/23 09:43 Order name: Basic Metabolic Panel; Complete Time: 10:55 rn 09/23 09:43 Order name: CBC with Diff; Complete Time: 10:55 rn 09/23 09:43 Order name: Protime (+inr); Complete Time: 10:55 rn 09/23 09:43 Order name: Ptt, Activated; Complete Time: 10:55 rn 09/23 09:43 Order name: CT Stroke Brain w/o Contrast; Complete Time: 10:55 rn 09/23 09:43 Order name: Stroke CXR 1 View; Complete Time: 11:13 rn 09/23 09:55 Order name: COVID-19 : Document "Date of Symptom Onset" if Symptomatic. rn 09/23 11:02 Order name: Glucose, Ancillary Testing; Complete Time: 11:13 EDMS 09/23 11:15 Order name: Urine Drug Screen; Complete Time: 14:05 rn 09/23 11:17 Order name: SARS-COV-2 RT PCR; Complete Time: 14:05 EDMS 09/23 12:04 Order name: Urine Dipstick--Ancillary (enter results); Complete Time: 14:05 09/23 09:43 Order name: EKG; Complete Time: 09:43 rn 09/23 09:43 Order name: Accucheck; Complete Time: 09:49 rn 09/23 09:43 Order name: Cardiac monitoring; Complete Time: 09:49 rn 09/23 09:43 Order name: EKG - Nurse/Tech; Complete Time: 09:49 rn 09/23 09:43 Order name: IV Saline Lock; Complete Time: 09:50 rn 09/23 09:43 Order name: Labs collected and sent; Complete Time: 09:50 rn 09/23 09:43 Order name: NPO; Complete Time: 12:02 rn 09/23 09:43 Order name: O2 Per Protocol; Complete Time: 09:50 rn 09/23 09:43 Order name: O2 Sat Monitoring; Complete Time: 09:50 rn 09/23 09:43 Order name: Stroke Swallow Screen; Complete Time: 12:03 rn 09/23 11:41 Order name: Brain W/Wo Cont; Complete Time: 14:05 EDMS 09/23 11:43 Order name: MRA Head Wo Cont; Complete Time: 14:05 EDMS 09/23 11:43 Order name: MRA Neck W/Wo Cont; Complete Time: 14:05 EDMS Administered Medications: No medications were administered Point of Care Testing: Blood Glucose: Blood Glucose: 117 mg/dL; iw Ranges: Critical Glucose Levels:Adult <50 mg/dl or >400 mg/dl <40 mg/dl or >180 mg/dl Disposition: 09/23/20 13:16 Hospitalization ordered by Manuel Fuentes for Observation. Preliminary diagnosis is Altered mental status, unspecified. - Bed requested for Telemetry/MedSurg (observation). - Status is Observation. bw - Condition is Stable. - Problem is new. - Symptoms have improved. NIH Stroke Scale - NIH Stroke Score Date: 09/23/2020 Time: Total Score = 14 1a. Level of Consciousness (LOC) - 1(Not Alert) 1b. Level of Consciousness (LOC) (Year \\T\\ Age) - 2(Neither) 1c. LOC Commands (Open \\T\\ Closes Eyes/Commercial Baker Helper) - 1(One) 2. Best Gaze (Lateral Gaze Paresis) - 1(Partial gaze palsy) 3. Visual Field Loss - 0(No visual loss) 4. Facial Palsy - 1(Minor Paralysis) 5a. Left Arm: Motor (10-second hold) - 1(Drift) 5b. Right Arm: Motor (10-second hold) - 1(Drift) 6a. Left Leg: Motor (5-second hold - always test supine) - 0(No drift) 6b. Right Leg: Motor (5-second hold - always test supine) - 0(No drift) 7. Limb Ataxia (finger/nose \\T\\ heel/mendez - test with eyes open) - 9(Amputation, joint fusion) - Notes: unable to assess, when pt prompted for exam pt does not move. Reattempted, same result 8. Sensory Loss (pinprick arms/legs/face) - 0(Normal) 9. Best Language: Aphasia (description/naming/reading) - 3(Mute, global aphasia) 10. Dysarthria (speech clarity - read or repeat words) - 2(Severe) 11. Extinction and Inattention (visual/tactile/auditory/spatial/personal) - 1(Present) Initials: Signatures: Dispatcher [employer] EDPriya Sweet, RN AD Romario Aldridge MD MD rn Botello, Elizabeth eb Webb, Bethany, RN RN bw Corrections: (The following items were deleted from the chart) 10:22 09:55 CORONAVIRUS ordered. EDMS EDMS 11:41 10:12 Brain Wo Cont ordered. EDDC EDMS 15:31 13:16 Hospitalization Ordered by Manuel Fuentes DO for Observation. Preliminary eb diagnosis is Altered mental status, unspecified. Bed requested for Telemetry/MedSurg (observation). Status is Observation. Condition is Stable. Problem is new. Symptoms have improved. rn 16:45 15:31 09/23/2020 13:16 Hospitalization Ordered by Manuel Fuentes DO for bw Observation. Preliminary diagnosis is Altered mental status, unspecified. Bed requested for Telemetry/MedSurg (observation). Status is Observation. Condition is Stable. Problem is new. Symptoms have improved. eb
--- NOTE | 2020-09-23 13:17 | ER ---
Nurse's Notes [facility] Name: Mike Francis III Age: 45 yrs Sex: Male : 1975 Arrival Date: 09/23/2020 Time: 09:[address] Private MD: Diagnosis: Altered mental status, unspecified Presentation: 09/23 09:35 Chief complaint: Spouse and/or significant other states: started last night with a iw headache and he was "twitching" around 7-8 pm but he was talking normally after that, then he woke up this morning at 0600 and he just won't say and when he does it sounds slurred or he doesn't make sense. Pt was able to get himself up out of wheelchair and into stretcher , c/o headache, is not responding verbally. 09:45 Coronavirus screen: At this time, the client does not indicate any symptoms associated iw with coronavirus-19. Ebola Screen: Patient negative for fever greater than or equal to 101.5 degrees Fahrenheit, and additional compatible Ebola Virus Disease symptoms Patient denies exposure to infectious person. Patient denies travel to an Ebola-affected area in the 21 days before illness onset. No symptoms or risks identified at this time. Risk Assessment: Do you want to hurt yourself or someone else? Patient reports no desire to harm self or others. 09:45 Method Of Arrival: Wheelchair iw 09:45 Acuity: IFEANYI 2 iw 09:46 Initial Sepsis Screen: Does the patient meet any 2 criteria? No. Patient's initial iw sepsis screen is negative. Does the patient have a suspected source of infection? No. Patient's initial sepsis screen is negative. 09:48 An acute neurological deficit is present. Pre-hospital glucose is not applicable to iw this patient. 09:49 Onset of symptoms was September 22, 2020 at 19:00. iw Triage Assessment: 09:45 The onset of the patients symptoms was September 22, 2020 at 19:00. General: Appears. bw General: Behavior is flat. Stroke Activation: Symptom onset > 6 hours Physician: Stroke Attending; Name: ; Notified At: ; Arrived At: Physician: Chief Stroke Resident; Name: ; Notified At: ; Arrived At: Physician: Stroke Resident; Name: ; Notified At: ; Arrived At: Physician: ED Attending; Name: ; Notified At: ; Arrived At: Physician: ED Resident; Name: ; Notified At: ; Arrived At: Historical: - Allergies: :47 Iodine; iw - PMHx: :47 Diabetes - NIDDM; High Cholesterol; Hypertension; Mild Heart Attack x 2; iw - PSHx: :47 Appendectomy; iw - Immunization history:: Adult Immunizations up to date. - Family history:: not pertinent. - Social history:: Smoking status: Patient reports the use of cigarette tobacco products, smokes one pack cigarettes per day. - Hospitalizations: : No recent hospitalization is reported. - History obtained from: . Screenin:46 Abuse screen: Denies threats or abuse. Nutritional screening: No deficits noted. bw Tuberculosis screening: No symptoms or risk factors identified. Fall Risk IV access (20 points). Gait- Weak (10 pts.). Mental Status- Overestimates/Forgets Limitations (15 pts.). Assessment: :46 VAN Scoring: Aphasia: Patient exhibits both expressive and receptive aphasia. Provider bernardo notified of +VAN scoring. Patient has been NPO before screening. The patient is alert, and able to follow commands. The patient exhibits slurred or garbled speech. The patient is exhibiting difficulty speaking. The patient does not exhibit difficulty understanding words. The patient is able to swallow own secretions with no drooling or need for suction. The patient failed the bedside swallow screening. The patient will be kept NPO until cleared by Speech Therapy or Physician. 09:46 Pain: Complains of pain in head Pain began 14 hours ago Is. Neuro: Level of bw Consciousness is lethargic, Oriented to person, Refueling Ramp Supervisor are pt having tremors in RUE. and unable to forming operator on left side. . Weakness Gait is unsteady, Speech is slurred, Facial droop on left, Pupils are sluggish, Reports headache. Cardiovascular: No deficits noted. Respiratory: No deficits noted. GI: No deficits noted. : No deficits noted. EENT: No deficits noted. Derm: No deficits noted. Musculoskeletal: tremors noted in RUE. 11:15 Reassessment: Assisted pt to standing, pt provided urine sample at this time. jl7 11:25 Reassessment: Pt transported to MRI via wheelchair. jl7 13:00 Reassessment: Pt returned from MRI. jl7 15:48 Reassessment: Expressive aphasia noted, able to answer name correctly. When asked who jl7 the president is pt stated "Burrito" and started laughing, tried to answer the question again and stated "Burrito" again, when I said President Awilda, pt nodded. Swallow screen continued at this time. 15:49 Patient has been NPO before screening. The patient is alert, and able to follow jl7 commands. The patient exhibits slurred or garbled speech. The patient is exhibiting difficulty speaking. The patient does not exhibit difficulty understanding words. The patient is able to swallow own secretions with no drooling or need for suction. Patient tolerated one teaspoon of water. No drooling, immediate coughing, gurgling, or clearing of the throat was noted. The patient tolerated 90mL of water. No drooling, immediate coughing, gurgling, or clearing of the throat was noted. The patient passed the bedside swallow screening. Oral medications may be given as ordered. Contact Physician for further diet orders. Provider notified of bedside swallow screening results: Manuel Fuentes DO. T-PA (Activase) Screening: Contraindications: Patient reports onset of signs and symptoms of stroke greater than 6 hours ago: Yes. Vital Signs: 09:48 BP 135 / 90; Pulse 83; Resp 16; Pulse Ox 100% on R/A; iw 10:11 BP 124 / 75; Pulse 77; Resp 20; Pulse Ox 100% on R/A; sr5 11:00 BP 129 / 77; Pulse 92; Resp 18; Pulse Ox 99% ; bw 11:20 BP 123 / 81; Pulse 71; Resp 15; Pulse Ox 100% ; bw 13:00 BP 128 / 82; Pulse 97; Resp 15; Pulse Ox 100% ; bw 14:34 BP 139 / 81; Pulse 75; Resp 18; Pulse Ox 100% on R/A; jl7 16:04 BP 137 / 92; Pulse 76; Resp 12; Pulse Ox 100% ; bw 16:43 BP 136 / 84; Pulse 79; Resp 15; Pulse Ox 100% on R/A; bw 10:[address] sr5 Pablo Coma Score: 09:46 Eye Response: to voice(3). Verbal Response: inappropriate words(3). Motor Response: bw localizes pain(5). Total: 11. 14:34 Eye Response: spontaneous(4). Verbal Response: confused(4). Motor Response: obeys jl7 commands(6). Total: 14. NIH Stroke Scale Scores: 09:46 NIHSS Score: 14 bw ED Course: 09:29 Patient arrived in ED. mr 09:36 Romario Aldridge MD is Attending Physician. rn 09:43 Ambar Staples RN is Primary Nurse. bw 09:45 Triage completed. iw 09:46 Arm band placed on. iw 09:46 Patient has correct armband on for positive identification. Bed in low position. Call bw light in reach. Side rails up X2. Adult w/ patient. 09:46 No provider procedures requiring assistance completed. bw 09:50 Initial lab(s) drawn, by me, sent to lab. Inserted saline lock: 20 gauge in right jl7 wrist, using aseptic technique. Blood collected. 09:52 EKG done, by ED staff, reviewed by Romario Aldridge MD. jl7 09:59 CT Stroke Brain w/o Contrast In Process Unspecified. EDMS 10:00 satellite project site monitor on. Pulse ox on. NIBP on. jl7 10:00 Warm blanket given. jl7 10:50 Stroke CXR 1 View In Process Unspecified. EDMS 11:26 No apparent distress. pt to MRI. bw 12:03 Urine collected: clean catch specimen, clear. bw 12:15 COVID-19 : Document "Date of Symptom Onset" if Symptomatic. Sent. bw 12:55 Brain W/Wo Cont In Process Unspecified. EDMS 12:55 MRA Head Wo Cont In Process Unspecified. EDMS 12:55 MRA Neck W/Wo Cont In Process Unspecified. EDMS 13:16 Manuel Fuentes DO is Hospitalizing Provider. rn 16:40 Patient admitted, IV remains in place. bleeding controlled, No redness/swelling at site.bw Administered Medications: No medications were administered Point of Care Testing: Blood Glucose: 09:46 Blood Glucose: 117 mg/dL; iw Ranges: Outcome: 13:16 Decision to Hospitalize by Provider. rn 16:40 Admitted to Med/surg accompanied by tech, family with patient, via stretcher, room 229, bw with chart, Report called to Patricia DUONG 16:42 Condition: stable bw 16:42 Instructed on the need for admit, safety practices, Demonstrated understanding of instructions, follow-up care. 16:45 Patient left the ED. NIH Stroke Scale - NIH Stroke Score Date: 09/23/2020 Time: 09:46 Total Score = 14 1a. Level of Consciousness (LOC) - 1(Not Alert) 1b. Level of Consciousness (LOC) (Year \\T\\ Age) - 2(Neither) 1c. LOC Commands (Open \\T\\ Closes Eyes/Utility Bill Collection Clerk) - 1(One) 2. Best Gaze (Lateral Gaze Paresis) - 1(Partial gaze palsy) 3. Visual Field Loss - 0(No visual loss) 4. Facial Palsy - 1(Minor Paralysis) 5a. Left Arm: Motor (10-second hold) - 1(Drift) 5b. Right Arm: Motor (10-second hold) - 1(Drift) 6a. Left Leg: Motor (5-second hold - always test supine) - 0(No drift) 6b. Right Leg: Motor (5-second hold - always test supine) - 0(No drift) 7. Limb Ataxia (finger/nose \\T\\ heel/mendez - test with eyes open) - 9(Amputation, joint fusion) - Notes: unable to assess, when pt prompted for exam pt does not move. Reattempted, same result 8. Sensory Loss (pinprick arms/legs/face) - 0(Normal) 9. Best Language: Aphasia (description/naming/reading) - 3(Mute, global aphasia) 10. Dysarthria (speech clarity - read or repeat words) - 2(Severe) 11. Extinction and Inattention (visual/tactile/auditory/spatial/personal) - 1(Present) Initials: Signatures: Dispatcher [employer] SUZETTE Danya Scott Priya Friedman, RN Romario Hutton MD MD rn Resecker, Sam, RN RN sr5 Hilary Zapata RN RN jl7 Ambar Staples RN RN bw
--- NOTE | 2020-09-23 13:32 | RAD REPORT ---
EXAM DESCRIPTION: MRI - MRA Neck W/Wo Cont - 09/23/2020 12:55 pm CLINICAL HISTORY: confusion, slurred speech, headache COMPARISON: CT head same date, MRI brain same date TECHNIQUE: MR angiography of the cervical vasculature performed. Coronal imaging plane acquisition u tilized. A 20 MultiHance contrast volume was utilized. Coronal reformatted images were generated and reviewed. Vertical axis 3D rotational projections obtained using maximum intensity projection protoco l. FINDINGS: Exam has significant motion degradation limitation. Aortic arch is bovine configuration with no great vessel origin stenoses seen. Vertebral artery origi n assessment is limited. Codominant vertebral arteries show no suspicious finding in the neck. The co mmon carotid and internal carotid arteries are also without suspicious finding. IMPRESSION: Motion degraded MRA neck examination shows no dissection, stenosis or suspicious finding .
--- NOTE | 2020-09-23 13:36 | RAD REPORT ---
EXAM DESCRIPTION: MRI - MRA Head Wo Cont - 09/23/2020 12:55 pm CLINICAL HISTORY: Headache, slurred speech, confusion COMPARISON: CT head same date, MRI brain same date TECHNIQUE: Axial and coronal 3D [id number] image acquisition was performed. 3D rotational images were generated with source and reconstruction images reviewed. Horizontal and vertical axis rotation al views generated using MIP protocol. FINDINGS: Exam has motion degradation limitation. No aneurysm, vascular malformation, or other diffuse vascular abnormality seen. Major venous sinuses are patent. Cavernous internal carotid arteries show no suspicious findings. There is focal narrowing seen at the left middle cerebral artery M1 -M2 junction. This could be true atherosclerotic narrowing or possibl y artifact due to motion. No other significant areas of luminal narrowing identifiable. IMPRESSION: Left middle cerebral artery significant luminal narrowing at the M1 - M2 junction. This could be true atherosclerotic narrowing or artifact. Vasospasm or vasculitis etiologies for the left middle cerebral artery finding are lesser in likeliho od. No other significant findings identifiable on this motion degraded study.
--- NOTE | 2020-09-23 13:50 | RAD REPORT ---
EXAM DESCRIPTION: MRI - Brain W/Wo Cont - 09/23/2020 12:55 pm CLINICAL HISTORY: confusion, headache, slurred speech, Stroke protocol evaluation COMPARISON: Ct Stroke Brain Wo Cont dated 09/23/2020; Chest Single View dated 09/23/2020 TECHNIQUE: Sagittal and axial T1-weighted images were obtained. Axial PD/heavily T2-weighted and T2- FLAIR images were obtained along with axial DWI/ADC mapping sequences. Coronal heavily T2 weighted s equence obtained. Axial and coronal post-contrast T1-weighted images were also obtained. A 20 ml Mul tihance contrast following utilized. FINDINGS: No intracranial hemorrhage is present. Diffusion-weighted imaging does not demonstrate an acute ischemic pattern. Patient has numerous areas of hyperintense T2/ IR signal in the cerebral whit e matter and subcortical white matter. Findings are more pronounced in the medial left occipital lobe . Cortical edema and thickening changes are present in the medial left occipital lobe, less definitiv e in the other sites of T2 signal abnormality. Basal ganglia, thalamus, brainstem and cerebellum tiss ues are generally spared. There is mild localized mass effect at the sites of signal abnormality. No overall cerebral edema or sulcal effacement. No midline shift. Ventricles are normal. No extra-axial fluid collections. Signal voids are seen as a normal finding in the major intracranial vessels. Post-contrast imaging shows no abnormal cortical thickening or abnormal degree of cortical enhancemen t. The patient has innumerable areas of abnormal enhancement throughout the cerebral hemispheres. The se are primarily but not exclusively subcortical in location. There is a questionable enhancing focus in the left-side of the medulla -alyssa junction of the brainstem. No definitive cerebellum enhancemen t abnormality. [employer] vasculitis would be a primary consideration. Multiple intracranial metastatic lesions would be a consideration. Hematogenous seeding of an infectious process would be a consideration as well though the patient does not appear to be acutely septic or ill from infection. The literature on [employer] COVID-19 manifestations outside of acute ischemic infarction is still developin g. This would be clinical consideration given the general clinical environment. Mastoid air cells and paranasal sinuses are clear. IMPRESSION: Grossly abnormal examination with innumerable small enhancing lesions throughout the cer ebral hemisphere with 1 questionable site in the brainstem. [employer] vasculitis would be a primary consideration. Intracranial metastatic disease or hematogenous seed ing of an infectious process also considerations of the patient does not apparently have the history nor systemic symptoms to support these diagnoses. The literature on [employer] COVID-19 manifestations outside of acute ischemic infarction is still developin g. This would be clinical consideration given the general clinical environment and can be correlated with any testing. No acute infarction findings and no hemorrhage or significant mass effect.
--- NOTE | 2020-09-23 16:22 | P.HP ---
Certification for Inpatient Patient admitted to: Observation With expected LOS: <2 Midnights Patient will require the following post-hospital care: None Practitioner: I am a practitioner with admitting privileges, knowledge of patient current condition, hospital course, and medical plan of care. Services: Services provided to patient in accordance with Admission requirements found in Title 42 Section 412.3 of the Code of Federal Regulations Patient History Date of Service: 09/23/20 Primary Care Provider: Elisha Valdez NP Reason for admission: Altered mental status History of Present Illness: 45-year-old male with history of diabetes, hypertension and hyperlipidemia. Patient was brought in by after increasing altered mental status. reports the patient has lost over 100 lb since February of 2020. She also reports that he has been having issues with migraine headaches and memory loss since that time. Recently yesterday he started to have some difficulty with his mentation. He was not following commands appropriately a.m. was slow to respond. She reports his right arm with twitch as well. She further reports the patient had an argument with a family member. After that he looked like he was in a daze. He went to bed thinking that he was just tired. This morning he was difficult to arouse. He was not making any sense. She reports that he has with increased fatigue as of late. He came to the ER for further evaluation. In the ER patient was evaluated. Vital signs stable. White count 9.2, hemoglobin 10. Sodium within normal range. Potassium 3.1. Blood sugar 118. Renal function stable. Troponin negative. Lactic acid normal. CT scan unremarkable shows no acute stroke. Patient was negative for COVID. MRI showed innumerable small enhancing lesions throughout the cerebral hemisphere. This was discussed in detail with radiology. Metastasis was suspected. Patient was admitted for further evaluation and treatment. When I saw the patient ER, patient was able to talk better but still patient confused. Patient not able to follow commands appropriately. Patient did not appear septic. reports patient had history of colonoscopy 6 years ago with colon polyps. No significant family history of cancer in the family. Pa patient is a heavy smoker about 1 pack per day. reports no melena, blood loss. Only significant changes has been weight loss, fatigue and altered mental status changes. Allergies No Known Allergies Allergy (Unverified 09/23/20 15:30) Home medications list reviewed: Yes - Past Medical/Surgical History -: Diabetes mellitus type 2 -: Hypertension -: Hyperlipidemia -: Colon polyps -: Appendectomy Psychosocial/ Personal History: Patient is . 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 - Family History Family History: Reviewed- Non-Contributory - Social History Smoking Status: Heavy Tobacco smoker (>10 cigarettes/day) Smoking therapy provided: No Patient receptive to therapy: No Alcohol use: No CD- Drugs: No Caffeine use: Yes Place of Residence: Home Review of Systems General: Weakness, Malaise, As per HPI Eyes: Unremarkable ENT: Unremarkable Respiratory: Unremarkable Cardiovascular: Unremarkable Gastrointestinal: Unremarkable Genitourinary: Unremarkable Musculoskeletal: Unremarkable Integumentary: Unremarkable Neurological: Weakness, Confusion, As per HPI Lymphatics: Unremarkable Physical Examination - Physical Exam General: Alert, In no apparent distress, Confused, Other (Patient not able to follow full commands appropriately. Some commands able to be followed.) HEENT: Atraumatic, Normocephalic, PERRLA, Mucous membr. moist/pink Neck: Supple Respiratory: Clear to auscultation bilaterally, Normal air movement Cardiovascular: Normal pulses, Regular rate/rhythm Gastrointestinal: Normal bowel sounds, Soft and benign, Non-distended, No tenderness, No masses, No rebound, No guarding Musculoskeletal: No erythema, No tenderness, No warmth Integumentary: No tenderness/swelling Neurological: Normal speech, Normal strength at 5/5 x4 extr, Normal tone, Other (Patient confused. Appears to be able to move all extremities appropriately. No focal deficits noted.) - Studies Laboratory Data (last 24 hrs) 09/23/20 09:46: PT 12.6 H, INR 1.09, APTT 33.7 09/23/20 09:46: WBC 9.20, Hgb 10.1 L, Hct 32.1 L, Plt Count 518 H 09/23/20 09:46: Sodium 142, Potassium 3.1 L, BUN 9, Creatinine 0.80, Glucose 118 H Assessment and Plan - Plan Impression: Encephalopathy suspect related to underlying cancer of unknown etiology with noted possible brain metastasis Weight loss, fatigue, and tobacco abuse need to rule out underlying cancer Diabetes mellitus type 2 Hypertension Hyperlipidemia Plan: Patient will be admitted for further evaluation and treatment. Case discussed with Neurology. Neurology suspects MRI changes related to underlying primary cancer. Will need to rule out cancer in other places. Will order CT scan of the chest, abdomen and pelvis. Patient with history of tobacco abuse, weight loss. Possible etiologies include:, lung cancer. Will also start Keppra due to possible underlying seizures and current inflammation noted on MRI. Will check inflammatory markers to evaluate for possible sarcoidosis, lupus.. Will check lab closely. Physical, Occupational, and speech therapy consulted to evaluate further. Will need to obtain and verify home medication. Will provide IV fluids. Continue to reassess. Will also order a EEG, echocardiogram and carotid Doppler. Provide DVT prophylaxis. Await findings from CT scan to determine possible etiology. Discharge Plan: Home Plan to discharge in: 48 Hours - Advance Directives Does patient have a Living Will: No Does patient have a Durable POA for Healthcare: No - Code Status/Comfort Care Code Status Assessed: Yes (Patient is full code) Time Spent Managing Pts Care (In Minutes): 55
[2020-09-23] MEDS: INSULIN -REGULAR HUMAN 50 UNIT/0.5 ML ML SQ SCH ×2 (17:01→21:00)
[2020-09-23] MEDS ORDERED: ONDANSETRON 4 MG/2 ML VIAL IV PRN (17:01)
[2020-09-23] MEDS: NA CHLORIDE 0.9% 1,000 ML IV SCH (17:55)
[2020-09-23 18:49] LABS: Ferritin 267.4 ng/mL (26-388)
--- NOTE | 2020-09-23 19:29 | RAD REPORT ---
EXAM DESCRIPTION: CT - Chest Abd Pelvis Wo Con - 09/23/2020 7:10 pm CLINICAL HISTORY: Abnormal MRI head suspicious for mets to the brain, rule out primary cancer, unexp lained 100 pound weight loss over the preceding 6 months COMPARISON: No comparisons TECHNIQUE: Axial 5 millimeter thick images of the chest, abdomen and pelvis were obtained without IV contrast. Oral contrast was administered. IV contrast was withheld due to significant iodine contras t allergy All CT scans are performed using dose optimization technique as appropriate and may include automated exposure control or mA/KV adjustment according to patient size. FINDINGS: No worrisome mass or abnormal pulmonary nodule pattern seen. There is a 5-6 mm spiculated density in the lingula that has a presentation much more consistent with scarring. This is not regard ed as a clinically significant finding. No pneumothorax or pleural effusion. No chest wall mass or a bnormal axillary lymphadenopathy seen. Mediastinal and hilar regions show no mass or lymphadenopathy . No significant cardiac finding. Liver is normal in size. Liver parenchymal assessment is limited in the absence of IV contrast; howev er, there is no finding suspicious for focal or diffuse hepatic mass lesion. Spleen and pancreas show no suspicious findings on noncontrast imaging. No gallbladder or biliary tree abnormality seen. Gall bladder is not clearly defined and may be isodense to slightly hypodense relative to the liver. Prima ry gallbladder process is not suspected. No hydronephrosis or suspicious renal mass. Isodense masses and pyelonephritis cannot be excluded on non contrast imaging. No adrenal abnormalities. Urinary bladder is contracted limiting assessment. N o suspicion for a bladder mass. Stomach is not dilated. Almost all of the oral contrast has exited the stomach. There is a slightly t hickened or nodular appearance to the proximal stomach that can be accounted for by the limited intra lumen content. No dilated small bowel loop or focal small bowel abnormality. No colon mass is identi fiable. Sigmoid colon is redundant reaching the superior left upper quadrant. No free air, free fluid or inflammatory stranding. No hernia, mass or bulky lymphadenopathy. Disc and bone degenerative changes are present. No pathologic or destructive bone process identifiabl e. IMPRESSION: CT chest imaging shows no mass, lymphadenopathy or other finding for an occult malignanc y. No colon mass is present. No abdominal or pelvic lymphadenopathy. No focal liver lesion identifiable. The absence of contrast does decrease sensitivity though likeliho od of an occult liver process is felt to be low. Martell of the stomach are slightly thickened and nodular. This is likely an artifact caused by a limit ed content within the lumen. This is the only finding seen that could potentially be a malignant proc ess.
[2020-09-23] MEDS ORDERED: carvediloL 6.25 MG TAB PO SCH (21:00)
[2020-09-23] MEDS: HEPARIN 5000 UNIT/ML 1 ML VIAL SQ SCH (21:10)
[2020-09-23] MEDS: levETIRAcetam 500 MG in NA CHLORIDE 0.9% 100 ML IV SCH (21:11)
[2020-09-23] MEDS: FOLIC ACID 1 MG in NA CHLORIDE 0.9% 50 ML IV SCH (21:13)
[2020-09-24] MEDS: ACETAMINOPHEN 500 MG TAB PO PRN ×2 (00:34→09:17)
[2020-09-24] MEDS ORDERED: POTASSIUM 25 MEQ EFFERV TAB PO ONE ×2 (01:31→22:45)
[2020-09-24 05:40] LABS: Absolute Lymphocytes (CBC) 2.5 K/uL (0.7-4.9); Basophils % 2.6 % (0-1.3); Hematocrit 28.3 % (39.6-49.0); Lymphocytes % 27.3 % (15.3-44.8); RBC Red Blood Cell Count 3.79 M/uL (4.33-5.43)
[2020-09-24 06:11] LABS: ALT/SGPT 11 U/L (12-78); AST/SGOT 4 U/L (15-37); Albumin 3.1 g/dL (3.4-5.0); Alkaline Phosphatase 89 U/L (45-117); BUN Blood Urea Nitrogen 7 mg/dL (7-18); Bicarbonate 28 mmol/L (21-32); Bilirubin Total 0.4 mg/dL (0.2-1.0); Glucose Level 101 mg/dL (74-106); HDL Cholesterol 26 mg/dL (40-60); LDL Cholesterol, Calculated 103 (<130); Magnesium 1.8 mg/dL (1.8-2.4); Potassium 3.3 mmol/L (3.5-5.1); Sodium Level 143 mmol/L (136-145)
[2020-09-24] MEDS: NA CHLORIDE 0.9% 1,000 ML IV SCH ×2 (06:22→21:02)
[2020-09-24] MEDS ORDERED: POTASSIUM CL SA 10 MEQ TAB PO ONE (07:30)
[2020-09-24] MEDS: INSULIN -REGULAR HUMAN 50 UNIT/0.5 ML ML SQ SCH ×4 (07:30→21:00)
[2020-09-24 08:00] LABS: Blood Morphology Comment NOT SEEN (NOT SEEN); Platelet Estimate INCR; Platelets, Giant FEW; White Blood Cell Scan 0 (OK)
[2020-09-24] MEDS ORDERED: PNEUMOCOCCAL VACCINE 0.5 ML IMVAC ONE (08:00)
[2020-09-24 08:30] LABS: Rheumatoid Factor NEG (NEG)
[2020-09-24] MEDS ORDERED: THIAMINE 200 MG/2 ML INJ IVP SCH (09:00)
[2020-09-24] MEDS ORDERED: FOLIC ACID 5 MG/ML VIAL IVP SCH (09:00)
[2020-09-24] MEDS: carvediloL 6.25 MG TAB PO SCH ×2 (09:01→21:03)
[2020-09-24] MEDS: ASPIRIN EC 81 MG TAB PO SCH (09:01)
[2020-09-24] MEDS: HEPARIN 5000 UNIT/ML 1 ML VIAL SQ SCH (09:02)
[2020-09-24] MEDS: levETIRAcetam 500 MG in NA CHLORIDE 0.9% 100 ML IV SCH ×2 (09:18→21:02)
--- NOTE | 2020-09-24 11:59 | P.PN ---
Subjective Date of Service: 09/24/20 Primary Care Provider: Elisha Valdez NP Chief Complaint: Altered mental status Subjective: Other (Patient more alert. Still confused. No pain.) Physical Examination - Vital Signs Temperature: 99.1 F Blood Pressure: 155/74 Pulse: 80 Respirations: 18 Pulse Ox (%): 99 - Studies Laboratory Data (last 24 hrs) 09/24/20 05:20: Sodium 143, Potassium 3.3 L, BUN 7, Creatinine 0.70, Glucose 101, Magnesium 1.8, Total Bilirubin 0.4, AST 4 L, ALT 11 L, Alkaline Phosphatase 89, Triglycerides 153 H, Cholesterol 160, HDL Cholesterol 26 L, Cholesterol/HDL Ratio 6.15 09/24/20 05:20: WBC 9.20, Hgb 9.2 L, Hct 28.3 L, Plt Count 463 H Assessment & Plan Discharge Plan: Home Plan to discharge in: 48 Hours Physician Review Additional Text: Physical Exam: Patient alert, cooperative. Still confused. Impression: Encephalopathy suspect related to underlying cancer of unknown etiology with noted possible brain metastasis Weight loss, fatigue, family history of colon cancer, personal history of colon polyps and tobacco abuse need to rule out underlying cancer Diabetes mellitus type 2 Hypertension Hyperlipidemia Fever of unknown etiology likely related to above Plan: Encephalopathy suspect related to underlying cancer of unknown etiology with noted possible brain metastasis: MRI reviewed with radiology. Case also discuss with Neurology. Suspect brain mets from unknown cancer etiology. So far CT scan shows no evidence of other etiologies. This was limited as the patient has allergy to iodine. Will confirm this. Family reports family history of colon cancer. Patient with history of colon polyps. Patient also with history of weight loss, fatigue and tobacco abuse. Will consult GI for further possible evaluation. Would recommend EGD and colonoscopy to further investigate. Will also order abdominal ultrasound. Patient to see speech, physical therapy and occupational therapy. Will discuss further with Neurology. Patient on DVT prophylaxis. Patient also on Keppra, As recommended by neurology. Anticipate improvement over the next 48-72 hr. Weight loss, fatigue, family history of colon cancer, personal history of colon polyps and tobacco abuse need to rule out underlying cancer: Etiology unknown. Continue as above. Will discuss with GI. Anticipate EGD and colonoscopy. Will obtain abdominal ultrasound. Diabetes mellitus type 2: Continue Accu-Cheks and sliding scale. Hypertension: Continue medication. Will monitor closely. Hyperlipidemia: Review and restart home medication. Fever of unknown etiology likely related to above: Pro calcitonin negative. White count normal. Blood cultures obtained. Echocardiogram pending. Continue with above plan of care. No need for antibiotic therapy at this time. Tylenol will be provided. Continue with above plan of care. Time Spent Managing Pts Care (In Minutes): 55
[2020-09-24] MEDS ORDERED: TRAMADOL HCL 50 MG TAB PO PRN (12:02)
--- NOTE | 2020-09-24 17:01 | RAD REPORT ---
EXAM DESCRIPTION: US - Abdomen Exam Complete - 09/24/2020 4:35 pm CLINICAL HISTORY: Abdominal pain COMPARISON: September 23, 2020 cat scan FINDINGS: The liver has an increased echotexture. A gallstone is not seen. The gallbladder wall is not thickened. The biliary tree is normal caliber. Limited evaluation of pancreas secondary to overlying bowel gas The right kidney measures 10 centimeters with a normal echotexture. The left kidney measures 10 centimeters with a normal echotexture. The spleen measures 9 centimeters. The abdominal aorta and inferior vena cava appear unremarkable IMPRESSION: No acute abnormality is displayed
[2020-09-24] MEDS: FOLIC ACID 1 MG in NA CHLORIDE 0.9% 50 ML IV SCH (21:02)
--- NOTE | 2020-09-24 21:30 | CON ---
Reason For Consultation: Consultation called because of altered mental status. History Of Present Illness: Mr. Francis is a 45-year-old right-handed patient, who w as brought in by his for worsening mental status. His is in the room. She reports he had about a more than 100 pound weight loss, began in February 2000. He was actually laid off from his job at that time and began having significant headaches and memory loss. These symptoms were slowly pro gressive until about 2 days ago when he became more disoriented, confused, and at times does not seem to recognize his , did not know what he was doing, looks around on the days confused. She thoug ht he possibly even had seizure activity with some shaking of the arms. He did not have tongue bitin g or bowel and bladder loss of control. At [facility], his head CT scan done on the at 10 a.m. did show [id number] small-vessel ischemic disease, although the patient is of young age at 45. However, his brain MRI identified numerous small enhancing lesions throughout the cerebral h emisphere and possibly 2 in the brainstem. The radiologist had a differential diagnosis that include d F[employer] vasculitis, that is primary F[employer] vasculitis, less likely metastatic disease. The patient's magn etic resonance angiogram of his head showed the left middle cerebral artery has significant luminal n arrowing at M1/M2 junction, which may be arthrosclerotic or they felt it potentially could be artifac t. Further, the patient's spasm or vasculitis may be considered. The magnetic resonance angiogram s tudy of the neck showed motion degradation, but no dissection or stenosis was suspected. Given the p ossibility of metastatic disease in chest, abdomen, and pelvis, CT scan was done with essentially no significant abnormalities being identified. There was slight thickening or nodular appearance in the proximal stomach, and this was felt to be due to limited intraluminal content. His complete blood c ount with differential was remarkable for slightly low hemoglobin and hematocrit, normal white blood cell count. Coagulation panel essentially unremarkable. Chemistries show slightly low potassium, lo w protein level of 3.1. His cholesterol panel was unremarkable except for low HDL of 26. Urinalysis was negative except for 1+ protein. Toxicology negative. Immunology screen for rheumatoid factor i s negative and COVID-19 was negative. He does have a pending lumbar puncture. At the time of my evaluation, the patient was standing with his helping to get him dressed, putt ing on deodorant and shirt and he eventually sat at the side of the bed. He appeared days confused a nd disoriented. Past Medical History: Diabetes mellitus type 2, hypertension, dyslipidemia, colon polyps. Past Surgical History: Appendectomy. Family History: Noncontributory. Allergies: NO KNOWN DRUG ALLERGIES. Medications: At home, aspirin 81 mg daily, Coreg 12.5 mg twice daily. He is now on folate 1 mg dayan y, heparin 5000 units subcutaneously every 12 hours. He was recently started on Keppra 500 mg twice daily, Zofran, and thiamine. Review of Systems: The patient's did report a weight loss, more confusion. She felt that at one point he was febri le and actually in the hospital, his T-max is 100.3. Physical Examination: GENERAL: The patient is sitting at the side of bed, does appear somewhat disoriented and staring, an d may have an apprehensive or scared look on his face at times. HEENT: He is normocephalic, atraumatic. Sclerae anicteric. Oropharynx is moist and pink. Neck: Supple. Chest: Clear. Heart: Regular. Extremities: No edema, cyanosis, or clubbing. Neurological: He is slow to respond, but eventually does respond to his name, got his birthday, was able to give a thumbs up sign after repeated encouragement. He does appear confused when asked quest ions. Otherwise, on cranial nerve exam, no focal deficits identified. On motor examination, he has equally strong in the upper and lower extremities. No focal weakness identified. Sensory exam, no f ocal sensory loss. Coordination appears slow, but intact. Reflexes are symmetric in the upper and l ower extremities and not hyperreflexic. Gait, he has good stance and stride, but requires some instr uctions to move in any given direction as he is slow to respond. Assessment: Mr. 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 He does not have a stroke, does n ot have an obvious septic encephalitis, so no bacterial infection, possibly a viral etiology though. Plan: 1.Lumbar puncture to look for protein, glucose, cell count differential, CSF electrophoresis, VDRL, acid-fast bacillus, Lyme titers, myelin basic protein, anti-NMDA receptor antibody, anti-Yo, anti-Ri, anti-Mo antibodies, and consider CSF PCR for herpes simplex virus 1 and 2, and may save CSF for furt her studies as needed. 2.Continue with the anti-platelet regimen. 3.Aggressive management of his hypertension and diabetes. 4.At this point, the patient actually did have a swallow evaluation at the bedside and he was found to not have any difficulty with swallowing, and therefore may have his regular diet with actually a h eart healthy diet and diabetic association related diet. He will be followed once the CSF study is d one. Furthermore, he should have a routine electroencephalogram. 5.He may benefit from a course of steroids depending on the results of his CSF studies. ANIL/MODL Voice ID: [id number] Report ID: [id number]
--- NOTE | 2020-09-24 22:29 | EKG ---
Test Date: 2020-09-23 Test Time: 09:50:17 [employer]: MICHELA MEASUREMENT RESULTS: Intervals: Rate: 76 LA: 138 QRSD: 94 QT: 382 QTc: 429 [place]: P: 39 LA: 138 QRS: 30 T: 10 INTERPRETIVE STATEMENTS: Normal sinus rhythm Nonspecific T wave abnormality Abnormal ECG No previous ECG available for comparison Electronically Signed On 09-24-20 22:25:47 USED [employer] [facility] by Srikanth Diego
[2020-09-25 06:20] LABS: BUN Blood Urea Nitrogen 9 mg/dL (7-18); Bicarbonate 27 mmol/L (21-32); Glucose Level 93 mg/dL (74-106); Potassium 3.6 mmol/L (3.5-5.1); Sodium Level 145 mmol/L (136-145)
[2020-09-25] MEDS ORDERED: POTASSIUM 25 MEQ EFFERV TAB PO ONE (06:23)
[2020-09-25 06:26] LABS: C-Reactive Protein 32.9 mg/L (<3.00)
[2020-09-25 06:55] LABS: Magnesium 1.6 mg/dL (1.8-2.4)
--- NOTE | 2020-09-25 07:16 | P.PN ---
Subjective Date of Service: 09/25/20 Primary Care Provider: Elisha Valdez NP Chief Complaint: Altered mental status Subjective: Other (Patient still confused but more cooperative and alert.) Physical Examination - Vital Signs Temperature: 99.9 F Blood Pressure: 156/79 Pulse: 70 Respirations: 19 Pulse Ox (%): 97 - Studies Laboratory Data (last 24 hrs) 09/24/20 05:20: WBC 9.20, Hgb 9.2 L, Hct 28.3 L, Plt Count 463 H Assessment & Plan Discharge Plan: Home Plan to discharge in: 48 Hours Physician Review Additional Text: Physical Exam: Patient alert, cooperative. Still confused. Not oriented to time, place. Heart: Regular rate rhythm Lungs: Clear to auscultation GI: Soft nontender nondistended Extremities: Good range of motion to the upper lower extremities. No focal deficits noted. Impression: Encephalopathy suspect related to underlying cancer of unknown etiology with abnormal MRI noting possible brain metastasis versus vasculitis versus other autoimmune process Weight loss, fatigue, family history of colon cancer, personal history of colon polyps and tobacco abuse need to rule out underlying cancer Diabetes mellitus type 2 Hypertension Hyperlipidemia Fever of unknown etiology likely related to above Plan: Encephalopathy suspect related to underlying cancer of unknown etiology with abnormal MRI noting possible brain metastasis versus vasculitis versus other autoimmune process: MRI reviewed with radiology and neurology. Neurology suspects possible vasculitis versus other autoimmune condition. No stroke identified. No obvious septic encephalitis noted. Patient will have lumbar puncture today to evaluate for other etiologies. Case discussed with Radiology who will do this. Will speak with GI for the possibility of EGD and colonoscopy likely on this hospitalization as the patient has risk factors including family history of colon cancer, personal history of colon polyps and weight loss. Abdominal ultrasound unremarkable. CT chest, abdomen, pelvis unremarkable. Patient remains on Keppra. Will transition to oral. EEG pending. Patient may require high-dose steroids due to the inflammation if indicated. Will discuss further with Neurology after lumbar tap evaluation. Weight loss, fatigue, family history of colon cancer, personal history of colon polyps and tobacco abuse need to rule out underlying cancer: Etiology unknown. Continue as above. Left message with GI, will discuss further with him. Anticipate EGD and colonoscopy during this hospitalization. Abdominal ultrasound unremarkable. Diabetes mellitus type 2: Hemoglobin A1c 6.0. Continue Accu-Cheks and sliding scale. Will need to verify home medications. Hypertension: Carvedilol adjusted for better control. Hyperlipidemia: Continue medication. LDL 103. Fever of unknown etiology likely related to above: Pro calcitonin negative. White count normal. Blood cultures obtained and pending. Echocardiogram pending. Sed rate and CRP elevated. COVID test negative. Continue with above plan of care. No need for antibiotic therapy at this time. Tylenol will be provided. Continue with above plan of care. Time Spent Managing Pts Care (In Minutes): 55
[2020-09-25] MEDS: INSULIN -REGULAR HUMAN 50 UNIT/0.5 ML ML SQ SCH ×4 (07:30→20:46)
--- NOTE | 2020-09-25 09:09 | ECHO ---
HEIGHT: 6 ft 4 in WEIGHT: 229 lb 11.2 oz DATE OF STUDY: 09/24/[address]: Manuel Fuentes DO 2-DIMENSIONAL: YES M.MODE: YES DOPPLER: YES COLOR FLOW: YES TDS: NO PORTABLE: NO DEFINITY: NO BUBBLE STUDY: NO DIAGNOSIS: ALTERED MENTAL STATUS, POSSIBLE METS TO BRAIN CARDIAC HISTORY: CATHERIZATION: NO SURGERY: NO PROSTHETIC VALVE: NO PACEMAKER: NO MEASUREMENTS (cm) DIASTOLIC (NORMALS) SYSTOLIC (NORMALS) IVSd 1.1 (0.6-1.2) LA Diam 3.4 (1.9-4.0) LVEF 71% LVIDd 4.6 (3.5-5.7) LVIDs 2.8 (2.0-3.5) %FS 40% LVPWd 1.2 (0.6-1.2) Ao Diam 2.9 (2.0-3.7) 2 DIMENSIONAL ASSESSMENT: RIGHT ATRIUM: NORMAL LEFT ATRIUM: NORMAL RIGHT VENTRICLE: NORMAL LEFT VENTRICLE: NORMAL TRICUSPID VALVE: NORMAL MITRAL VALVE: NORMAL PULMONIC VALVE: NORMAL AORTIC VALVE: NORMAL PERICARDIAL EFFUSION: NONE AORTIC ROOT: NORMAL LEFT VENTRICULAR WALL MOTION: NORMAL DOPPLER/COLOR FLOW: NORMAL COMMENTS: NORMAL 2D ECHOCARDIOGRAM WITH DOPPLER. NO WALL MOTION ABNORMALITY. NO EFFUSION. TECHNOLOGIST: Joan RIVERA
[2020-09-25] MEDS: FOLIC ACID 1 MG TABLET PO SCH (10:46)
[2020-09-25] MEDS: HYDROCODONE/APAP 7.5/325 MG TAB PO PRN ×2 (10:47→20:58)
[2020-09-25] MEDS: THIAMINE HCL 100 MG TABLET PO SCH (10:47)
[2020-09-25] MEDS: levETIRAcetam 500 MG TAB PO SCH ×2 (10:47→20:43)
[2020-09-25] MEDS: carvediloL 6.25 MG TAB PO SCH ×2 (10:53→20:43)
[2020-09-25] MEDS: NACHLORIDE 0.45% 1,000 ML IV SCH (10:53)
--- NOTE | 2020-09-25 11:44 | RAD REPORT ---
EXAM DESCRIPTION: RAD - Lumbar Puncture For Dx - 09/25/2020 11:35 am CLINICAL HISTORY: Altered mental status, abnormal brain MRI suspicious for vasculitis or autoimmune disorder COMPARISON: None. TECHNIQUE: The procedure, risks and alternatives to the procedure were discussed with the patient in detail. The patient is 24 hours out from the end 81 milligram aspirin therapy. The elevated risk for bleeding was fully detailed to the patient and the patient's . The elevated risk was discussed w ith the patient and family via primary service as well. After answering all questions, both oral and written consent were obtained. Time-out procedure was performed. The patient was placed in an oblique prone position on the fluoroscopic table. The skin of the lower back was prepped and draped in the usual sterile fashion. After anesthetizing the skin and deeper sof t tissues with 1% lidocaine, a 22 gauge needle was advanced into the thecal sac at the L3 level. Intrathecal placement was obtained without difficulty. Clear colorless CSF was observed. Opening pres sure was 8. CSF remain colorless throughout the procedure. Approximately 12 mL of ascites was removed and retained for requested studies. At the conclusion of the procedure, the needle was withdrawn and a sterile bandage placed over the pu ncture site. The patient tolerated the procedure well without immediate complications. Post-procedu re care and precaution instructions were discussed with the patient and his before the LP proced ure. Patient was transferred back to the floor for continued care. IMPRESSION: Successful fluoroscopic guided lumbar puncture. All obtained fluid was sent to the lab for studies requested by the referring physician.
[2020-09-25 11:51] LABS: CSF Glucose 45 mg/dL (40-70)
[2020-09-25 15:29] LABS: Body Fluid Source CSF; Color of fluid Colorless (COLORLESS)
[2020-09-25 15:30] LABS: Appearance CLEAR (CLEAR)
[2020-09-25 15:31] LABS: Body Fluid WBC 141 /mm^3
[2020-09-25 16:42] LABS: Appearance CLEAR (CLEAR); Body Fluid Source CSF; Body Fluid WBC 85 /mm^3; Color of fluid Colorless (COLORLESS); Fluid Total Volume 13.5 ml
[2020-09-25] MEDS: HEPARIN 5000 UNIT/ML 1 ML VIAL SQ SCH (20:22)
[2020-09-25] MEDS: ATORVASTATIN 40 MG TAB PO SCH (20:44)
[2020-09-25] MEDS: GLUCERNA SHAKE 237 ML CAN PO SCH (20:46)
[2020-09-26] LABS: RPR (Rapid Plasma Reagin) NON-REACT (NON-REACT)
[2020-09-26] MEDS: NACHLORIDE 0.45% 1,000 ML IV SCH ×3 (04:00→06:36)
[2020-09-26 04:26] LABS: BUN Blood Urea Nitrogen 9 mg/dL (7-18); Bicarbonate 26 mmol/L (21-32); Glucose Level 90 mg/dL (74-106); Potassium 3.9 mmol/L (3.5-5.1); Sodium Level 144 mmol/L (136-145)
[2020-09-26 04:43] LABS: Absolute Lymphocytes (CBC) 2.9 K/uL (0.7-4.9); Basophils % 0.5 % (0-1.3); Hematocrit 28.3 % (39.6-49.0); Lymphocytes % 32.3 % (15.3-44.8); MPV 7.8 fL (7.6-11.3); RBC Red Blood Cell Count 3.77 M/uL (4.33-5.43)
[2020-09-26] MEDS: INSULIN -REGULAR HUMAN 50 UNIT/0.5 ML ML SQ SCH ×4 (07:30→21:00)
[2020-09-26] MEDS ORDERED: POTASSIUM 25 MEQ EFFERV TAB PO ONE (09:00)
[2020-09-26] MEDS: GLUCERNA SHAKE 237 ML CAN PO SCH ×2 (09:00→21:00)
[2020-09-26] MEDS ORDERED: MAGNESIUM SULFATE 1 gm IVPB 1 GM/100 ML BAG IV ONE (09:00)
[2020-09-26] MEDS: levETIRAcetam 500 MG TAB PO SCH ×2 (10:10→21:05)
[2020-09-26] MEDS: ASPIRIN EC 81 MG TAB PO SCH (10:10)
[2020-09-26] MEDS: FOLIC ACID 1 MG TABLET PO SCH (10:11)
[2020-09-26] MEDS: THIAMINE HCL 100 MG TABLET PO SCH (10:11)
[2020-09-26] MEDS: carvediloL 6.25 MG TAB PO SCH ×2 (10:11→21:05)
[2020-09-26] MEDS: HEPARIN 5000 UNIT/ML 1 ML VIAL SQ SCH ×2 (10:11→21:05)
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
[2020-09-26] MEDS: METHYLPRED NA SUC 1,000 MG in NA CHLORIDE 0.9% 100 ML IV SCH (15:00)
[2020-09-26] MEDS: HYDROCODONE/APAP 7.5/325 MG TAB PO PRN (16:23)
[2020-09-26 17:29] VITALS: BMI 31.2
[2020-09-26] MEDS: ATORVASTATIN 40 MG TAB PO SCH (21:05)
[2020-09-27 05:52] LABS: Absolute Lymphocytes (CBC) 0.7 K/uL (0.7-4.9); Basophils % 0.1 % (0-1.3); Lymphocytes % 8.8 % (15.3-44.8); MPV 7.3 fL (7.6-11.3); RBC Red Blood Cell Count 4.29 M/uL (4.33-5.43)
[2020-09-27 06:10] LABS: BUN Blood Urea Nitrogen 12 mg/dL (7-18); Bicarbonate 25 mmol/L (21-32); Glucose Level 155 mg/dL (74-106); Magnesium 1.9 mg/dL (1.8-2.4); Potassium 4.1 mmol/L (3.5-5.1); Sodium Level 139 mmol/L (136-145)
[2020-09-27 06:32] LABS: Anisocytosis 1+; Blood Morphology Comment NOTED (NOT SEEN); Platelet Estimate ADEQ; Platelets, Giant FEW
[2020-09-27] MEDS: NACHLORIDE 0.45% 1,000 ML IV SCH (06:37)
[2020-09-27] MEDS: INSULIN -REGULAR HUMAN 50 UNIT/0.5 ML ML SQ SCH ×4 (07:30→20:53)
[2020-09-27] MEDS: METHYLPRED NA SUC 1,000 MG in NA CHLORIDE 0.9% 100 ML IV SCH (09:04)
[2020-09-27] MEDS: levETIRAcetam 500 MG TAB PO SCH ×2 (09:04→20:46)
[2020-09-27] MEDS: FOLIC ACID 1 MG TABLET PO SCH (09:04)
[2020-09-27] MEDS: THIAMINE HCL 100 MG TABLET PO SCH (09:04)
[2020-09-27] MEDS: ASPIRIN EC 81 MG TAB PO SCH (09:04)
[2020-09-27] MEDS: GLUCERNA SHAKE 237 ML CAN PO SCH ×2 (09:05→20:58)
[2020-09-27] MEDS: carvediloL 6.25 MG TAB PO SCH ×2 (09:05→20:46)
[2020-09-27] MEDS: HEPARIN 5000 UNIT/ML 1 ML VIAL SQ SCH ×2 (09:05→20:47)
--- NOTE | 2020-09-27 09:36 | P.PN ---
Subjective Date of Service: 09/27/20 Primary Care Provider: Elisha Valdez NP Chief Complaint: Altered mental status Subjective: Improving, Doing well Physical Examination - Vital Signs Temperature: 97.9 F Blood Pressure: 153/87 Pulse: 67 Respirations: 22 Pulse Ox (%): 97 Assessment & Plan Discharge Plan: Home Plan to discharge in: 24 Hours Physician Review Additional Text: Physical Exam: Patient alert, cooperative. Patient less confused today. Patient oriented to time and place. Heart: Regular rate rhythm Lungs: Clear to auscultation GI: Soft nontender nondistended Extremities: Good range of motion to the upper lower extremities. No focal deficits noted. Impression: Encephalopathy with abnormal MRI suspect autoimmune process Weight loss, fatigue, family history of colon cancer, personal history of colon polyps and tobacco abuse Diabetes mellitus type 2 Hypertension Hyperlipidemia Fever of unknown etiology likely related to above Plan: Encephalopathy with abnormal MRI suspect autoimmune process: Spoke with , patient and Neurology yesterday at length concerning plan of care. Patient received 1st dose of high-dose steroids. Will continue with Solu-Medrol 1 g IV daily for the next 2 days. If stable likely discharge home tomorrow with tapering steroid dose. Suspect autoimmune process. CSF sent for autoimmune encephalitis workup. Continue Keppra. Blood pressure still slightly elevated. Will add Norvasc for better control. Continue monitor the patient closely. Anticipate discharge as early as tomorrow. Weight loss, fatigue, family history of colon cancer, personal history of colon polyps and tobacco abuse: Doubt cancer. Case discussed with GI. No need for intervention at this time. Diabetes mellitus type 2: Hemoglobin A1c 6.0. Continue Accu-Cheks and sliding scale. No need for medications. Hypertension: Blood pressure remains slightly elevated. Continue carvedilol. Will add Norvasc low-dose for better blood pressure control. Hyperlipidemia: Continue medication-statin. LDL 103. Fever of unknown etiology likely related to above: Pro calcitonin negative. White count normal. CSF shows no indication of infection. Echocardiogram unremarkable. Sed rate and CRP elevated. COVID test negative. Doubt infectious cause. This maybe autoimmune related. Time Spent Managing Pts Care (In Minutes): 55
[2020-09-27] MEDS: AMLODIPINE 2.5 MG TAB PO SCH (10:00)
[2020-09-27 11:55] LABS: HIV AG/AB 4TH GEN Non-reactive (Non-reactive)
[2020-09-27] MEDS: ATORVASTATIN 40 MG TAB PO SCH (20:47)
[2020-09-27] MEDS: HYDROCODONE/APAP 7.5/325 MG TAB PO PRN (20:53)
[2020-09-27 23:18] VITALS: O2SAT 96
[2020-09-28 04:50] VITALS: TEMP 97.3
[2020-09-28 06:40] LABS: BUN Blood Urea Nitrogen 15 mg/dL (7-18); Bicarbonate 25 mmol/L (21-32); Glucose Level 138 mg/dL (74-106); Potassium 4.2 mmol/L (3.5-5.1); Sodium Level 141 mmol/L (136-145)
[2020-09-28 07:18] LABS: Absolute Lymphocytes (CBC) 1.8 K/uL (0.7-4.9); Basophils % 0.4 % (0-1.3); Hematocrit 31.5 % (39.6-49.0); Lymphocytes % 10.3 % (15.3-44.8); MPV 8.4 fL (7.6-11.3); RBC Red Blood Cell Count 4.14 M/uL (4.33-5.43)
[2020-09-28] MEDS: INSULIN -REGULAR HUMAN 50 UNIT/0.5 ML ML SQ SCH ×2 (07:30→11:30)
[2020-09-28] MEDS: GLUCERNA SHAKE 237 ML CAN PO SCH (09:00)
[2020-09-28] MEDS: ASPIRIN EC 81 MG TAB PO SCH (09:08)
[2020-09-28] MEDS: FOLIC ACID 1 MG TABLET PO SCH (09:09)
[2020-09-28] MEDS: THIAMINE HCL 100 MG TABLET PO SCH (09:09)
[2020-09-28] MEDS: AMLODIPINE 2.5 MG TAB PO SCH (09:09)
[2020-09-28] MEDS: carvediloL 6.25 MG TAB PO SCH (09:09)
[2020-09-28] MEDS: HEPARIN 5000 UNIT/ML 1 ML VIAL SQ SCH (09:10)
[2020-09-28] MEDS: levETIRAcetam 500 MG TAB PO SCH (09:10)
[2020-09-28 09:34] LABS: Blood Morphology Comment NOT SEEN (NOT SEEN); Platelet Estimate INCR; White Blood Cell Scan OK (OK)
[2020-09-28] MEDS: METHYLPRED NA SUC 1,000 MG in NA CHLORIDE 0.9% 100 ML IV SCH (10:07)
[2020-09-28 10:37] VITALS: BP 160/86
--- NOTE | 2020-09-28 11:20 | P.CNS ---
Date of Consult: 09/28/20 Reason for Consult: follow up care Requesting Physician: Manuel Fuentes Primary Care Provider: Elisha Valdez NP Chief Complaint: Altered mental status History of Present Illness: Patient is a pleasant gentleman here for altered mental status. He was seen by the hosptilalist and Dr. Soria. He had an abnormal MRI. Had clear CT of the body to rule out cancer. 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 He has past medical history of htn, hyperlipidemia. He most likely has hyperglycemia. The a1c was 6. Was started on keppra and steroids. He is awaiting the results of his lumbar puncture. Allergies iodine Allergy (Verified 09/25/20 11:56) Anaphylaxis Home Medications: Amlodipine Besylate [Norvasc] 10 mg PO BEDTIME 09/25/20 Aspirin [Aspirin EC 81 MG] 81 mg PO DAILY 09/25/20 Buspirone HCl 30 mg PO BID 09/25/20 Carvedilol [Coreg] 25 mg PO BEDTIME 09/25/20 Citalopram Hydrobromide [Citalopram HBr] 40 mg PO BEDTIME 09/25/20 Cyanocobalamin (Vitamin B-12) [B-12] 500 mcg PO DAILY 09/25/20 Iron 18 mg PO BEDTIME 09/25/20 Metformin HCl 850 mg PO BEDTIME 09/25/20 [place]-3S/Dha/Epa/Fish Oil [Fish Oil [place]-3 Softgel] 1,200 mg PO BEDTIME 09/25/20 Potassium Gluconate [Potassium] 99 mg PO DAILY 09/25/20 Valsartan/Hydrochlorothiazide [Valsartan-Hctz 320-25 mg Tab] 1 each PO BEDTIME 09/25/20 - Past Medical/Surgical History Diabetic: Yes -: Diabetes mellitus type 2 -: Hypertension -: Hyperlipidemia -: Colon polyps -: Anxiety -: Appendectomy Psychosocial/ Personal History: Patient is . 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 - Family History Father Medical History: Cancer Notes: colon Mother Medical History: Hypertension - Social History Smoking Status: Current every day smoker Alcohol use: No CD- Drugs: No Caffeine use: Yes Place of Residence: Home Review of Systems 10-point ROS is otherwise unremarkable Physical Examination Temp Pulse Resp BP Pulse Ox 97.3 F 65 20 160/86 H 99 09/28/20 08:00 09/28/20 08:00 09/28/20 08:00 09/28/20 08:00 09/28/20 08:00 General: Alert, In no apparent distress HEENT: Atraumatic, PERRLA, Mucous membr. moist/pink, EOMI, Sclerae nonicteric Neck: Supple, 2+ carotid pulse no bruit, No LAD, Without JVD or thyroid abnormality Respiratory: Clear to auscultation bilaterally, Normal air movement Cardiovascular: Regular rate/rhythm, Normal S1 S2 Gastrointestinal: Normal bowel sounds, No tenderness Musculoskeletal: No tenderness Integumentary: No rashes Neurological: Normal gait, Normal speech, Normal tone, Normal affect Lymphatics: No axilla or inguinal lymphadenopathy - Problems (1) Encephalitis Current Visit: Yes Status: Acute Plan: will need to follow up on his lab results as an outpatient. He may need an outpatient referral to Dr. Soria based on his insurance. Tapering of steroids. continuing keppra (2) HTN (hypertension) Current Visit: Yes Status: Acute Plan: will monitor and adjust meds accordingly. Qualifiers: Hypertension type: essential hypertension Qualified Code(s): I10 - Essential (primary) hypertension (3) Hyperlipemia Current Visit: Yes Status: Acute Plan: we can continue statin. Routine check ups on his cholesterol meds Qualifiers: Hyperlipidemia type: moderate mixed hyperlipidemia not requiring statin therapy Qualified Code(s): E78.2 - Mixed hyperlipidemia (4) Prediabetes Current Visit: Yes Status: Acute Plan: will see if his sugar resolves after solumedrol d/c However he will need chronic monitoring as he is at higher risk of developing diabetes in the future. Physician Review: Patient Assessed, Agree with Above Assessment and Plan Critical Care: No Time Spent Managing Pts care (In Minutes): 25
--- NOTE | 2020-09-28 13:00 | P.DS ---
Admission Date: 09/24/20 Discharge Date: 09/28/20 Primary Care Provider: Elisha Valdez NP Disposition: ROUTINE DISCHARGE Discharge Condition: GOOD Reason for Admission: Altered mental status Consultations: Neurology-Dr. oSria Procedures: COVID: Negative CT scan: FINDINGS: An intracranial bleed is not seen . The ventricles are normal in caliber. No extra-axial fluid collection is noted. Mild to moderate low-density within periventricular, deep and subcortical white matter likely ischemic changes secondary to small vessel disease Fluid within the sinuses/ mastoids is not seen. Mild chronic sinusitis IMPRESSION: No acute intracranial abnormality is seen. MRI Brain: FINDINGS: No intracranial hemorrhage is present. Diffusion-weighted imaging does not demonstrate an acute ischemic pattern. Patient has numerous areas of hyperintense T2/ IR signal in the cerebral white matter and subcortical white matter. Findings are more pronounced in the medial left occipital lobe. Cortical edema and thickening changes are present in the medial left occipital lobe, less definitive in the other sites of T2 signal abnormality. Basal ganglia, thalamus, brainstem and cerebellum tissues are generally spared. There is mild localized mass effect at the sites of signal abnormality. No overall cerebral edema or sulcal effacement. No midline shift. Ventricles are normal. No extra-axial fluid collections. Signal voids are seen as a normal finding in the major intracranial vessels. Post-contrast imaging shows no abnormal cortical thickening or abnormal degree of cortical enhancement. The patient has innumerable areas of abnormal enhancement throughout the cerebral hemispheres. These are primarily but not exclusively subcortical in location. There is a questionable enhancing focus in the left-side of the medulla -alyssa junction of the brainstem. No definitive cerebellum enhancement abnormality. PSYCHOLOGY ASSISTANT vasculitis would be a primary consideration. Multiple intracranial metastatic lesions would be a consideration. Hematogenous seeding of an infectious process would be a consideration as well though the patient does not appear to be acutely septic or ill from infection. The literature on PSYCHOLOGY ASSISTANT COVID-19 manifestations outside of acute ischemic infarction is still developing. This would be clinical consideration given the general clinical environment. Mastoid air cells and paranasal sinuses are clear. IMPRESSION: Grossly abnormal examination with innumerable small enhancing lesions throughout the cerebral hemisphere with 1 questionable site in the brainstem. PSYCHOLOGY ASSISTANT vasculitis would be a primary consideration. Intracranial metastatic disease or hematogenous seeding of an infectious process also considerations of the patient does not apparently have the history nor systemic symptoms to support these diagnoses. The literature on PSYCHOLOGY ASSISTANT COVID-19 manifestations outside of acute ischemic infarction is still developing. This would be clinical consideration given the general clinical environment and can be correlated with any testing. No acute infarction findings and no hemorrhage or significant mass effect. MRA Brain: FINDINGS: Exam has motion degradation limitation. No aneurysm, vascular malformation, or other diffuse vascular abnormality seen. Major venous sinuses are patent. Cavernous internal carotid arteries show no suspicious findings. There is focal narrowing seen at the left middle cerebral artery M1 -M2 junction. This could be true atherosclerotic narrowing or possibly artifact due to motion. No other significant areas of luminal narrowing identifiable. IMPRESSION: Left middle cerebral artery significant luminal narrowing at the M1 - M2 junction. This could be true atherosclerotic narrowing or artifact. Vasospasm or vasculitis etiologies for the left middle cerebral artery finding are lesser in likelihood. No other significant findings identifiable on this motion degraded study. MRA Neck: FINDINGS: Exam has significant motion degradation limitation. Aortic arch is bovine configuration with no great vessel origin stenoses seen. Vertebral artery origin assessment is limited. Codominant vertebral arteries show no suspicious finding in the neck. The common carotid and internal carotid arteries are also without suspicious finding. IMPRESSION: Motion degraded MRA neck examination shows no dissection, stenosis or suspicious finding. ECHO: MEASUREMENTS (cm) DIASTOLIC (NORMALS) SYSTOLIC (NORMALS) IVSd 1.1 (0.6-1.2) LA Diam 3.4 (1.9-4.0) LVEF 71% LVIDd 4.6 (3.5-5.7) LVIDs 2.8 (2.0-3.5) %FS 40% LVPWd 1.2 (0.6-1.2) Ao Diam 2.9 (2.0-3.7) 2 DIMENSIONAL ASSESSMENT: RIGHT ATRIUM: NORMAL LEFT ATRIUM: NORMAL RIGHT VENTRICLE: NORMAL LEFT VENTRICLE: NORMAL TRICUSPID VALVE: NORMAL MITRAL VALVE: NORMAL PULMONIC VALVE: NORMAL AORTIC VALVE: NORMAL PERICARDIAL EFFUSION: NONE AORTIC ROOT: NORMAL LEFT VENTRICULAR WALL MOTION: NORMAL DOPPLER/COLOR FLOW: NORMAL COMMENTS: NORMAL 2D ECHOCARDIOGRAM WITH DOPPLER. NO WALL MOTION ABNORMALITY. NO EFFUSION. ABUS: COMPARISON: September 23, 2020 cat scan FINDINGS: The liver has an increased echotexture. A gallstone is not seen. The gallbladder wall is not thickened. The biliary tree is normal caliber. Limited evaluation of pancreas secondary to overlying bowel gas The right kidney measures 10 centimeters with a normal echotexture. The left kidney measures 10 centimeters with a normal echotexture. The spleen measures 9 centimeters. The abdominal aorta and inferior vena cava appear unremarkable IMPRESSION: No acute abnormality is displayed CT Scan Chest/Ab/Pelvis: FINDINGS: No worrisome mass or abnormal pulmonary nodule pattern seen. There is a 5-6 mm spiculated density in the lingula that has a presentation much more consistent with scarring. This is not regarded as a clinically significant finding. No pneumothorax or pleural effusion. No chest wall mass or abnormal axillary lymphadenopathy seen. Mediastinal and hilar regions show no mass or lymphadenopathy. No significant cardiac finding. Liver is normal in size. Liver parenchymal assessment is limited in the absence of IV contrast; however, there is no finding suspicious for focal or diffuse hepatic mass lesion. Spleen and pancreas show no suspicious findings on noncontrast imaging. No gallbladder or biliary tree abnormality seen. Gallbladder is not clearly defined and may be isodense to slightly hypodense relative to the liver. Primary gallbladder process is not suspected. No hydronephrosis or suspicious renal mass. Isodense masses and pyelonephritis cannot be excluded on non contrast imaging. No adrenal abnormalities. Urinary bladder is contracted limiting assessment. No suspicion for a bladder mass. Stomach is not dilated. Almost all of the oral contrast has exited the stomach. There is a slightly thickened or nodular appearance to the proximal stomach that can be accounted for by the limited intra lumen content. No dilated small bowel loop or focal small bowel abnormality. No colon mass is identifiable. Sigmoid colon is redundant reaching the superior left upper quadrant. No free air, free fluid or inflammatory stranding. No hernia, mass or bulky lymphadenopathy. Disc and bone degenerative changes are present. No pathologic or destructive bone process identifiable. IMPRESSION: CT chest imaging shows no mass, lymphadenopathy or other finding for an occult malignancy. No colon mass is present. No abdominal or pelvic lymphadenopathy. No focal liver lesion identifiable. The absence of contrast does decrease sensitivity though likelihood of an occult liver process is felt to be low. Martell of the stomach are slightly thickened and nodular. This is likely an artifact caused by a limited content within the lumen. This is the only finding seen that could potentially be a malignant process. Lumbar puncture: COMPARISON: None. TECHNIQUE: The procedure, risks and alternatives to the procedure were discussed with the patient in detail. The patient is 24 hours out from the end 81 milligram aspirin therapy. The elevated risk for bleeding was fully detailed to the patient and the patient's . The elevated risk was discussed with the patient and family via primary service as well. After answering all questions, both oral and written consent were obtained. Time-out procedure was performed. The patient was placed in an oblique prone position on the fluoroscopic table. The skin of the lower back was prepped and draped in the usual sterile fashion. After anesthetizing the skin and deeper soft tissues with 1% lidocaine, a 22 gauge needle was advanced into the thecal sac at the L3 level. Intrathecal placement was obtained without difficulty. Clear colorless CSF was observed. Opening pressure was 8. CSF remain colorless throughout the procedure. Approximately 12 mL of ascites was removed and retained for requested studies. At the conclusion of the procedure, the needle was withdrawn and a sterile bandage placed over the puncture site. The patient tolerated the procedure well without immediate complications. Post-procedure care and precaution instructions were discussed with the patient and his before the LP procedure. Patient was transferred back to the floor for continued care. IMPRESSION: Successful fluoroscopic guided lumbar puncture. All obtained fluid was sent to the lab for studies requested by the referring physician. EEG: No evidence of seizures CSF Cytology: No malignant cells noted. 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 Patient was brought in by after increasing altered mental status. reports the patient has lost over 100 lb since February of 2020. She also reports that he has been having issues with migraine headaches and memory loss since that time. Recently yesterday he started to have some difficulty with his mentation. He was not following commands appropriately a.m. was slow to respond. She reports his right arm with twitch as well. She further reports the patient had an argument with a family member. After that he looked like he was in a daze. He went to bed thinking that he was just tired. This morning he was difficult to arouse. He was not making any sense. She reports that he has with increased fatigue as of late. He came to the ER for further evaluation. In the ER patient was evaluated. Vital signs stable. White count 9.2, hemoglobin 10. Sodium within normal range. Potassium 3.1. Blood sugar 118. Renal function stable. Troponin negative. Lactic acid normal. CT scan unremarkable shows no acute stroke. Patient was negative for COVID. MRI showed innumerable small enhancing lesions throughout the cerebral hemisphere. This was discussed in detail with radiology. Metastasis was suspected. Patient was admitted for further evaluation and treatment. When I saw the patient ER, patient was able to talk better but still patient confused. Patient not able to follow commands appropriately. Patient did not appear septic. reports patient had history of colonoscopy 6 years ago with colon polyps. No significant family history of cancer in the family. Pa patient is a heavy smoker about 1 pack per day. reports no melena, blood loss. Only significant changes has been weight loss, fatigue and altered mental status changes. Hospital Course: Patient presented with several months of weight loss, headaches, and memory loss. The patient also presented to the emergency room with altered mental status changes. Patient was admitted for evaluation of encephalopathy. Upon initial evaluation MRI showed grossly abnormal exam with innumerable small enhancing lesions throughout the cerebral hemisphere. The patient was admitted for further evaluation and treatment. Neurology was consulted. Further workup included stroke protocol MRI, echocardiogram, CT chest/abdomen/pelvis, abdominal ultrasound, and lumbar puncture. Early on infectious cause was ruled out. There was some suspicion of metastatic disease but CSF showed no malignant cells. CT scan did not reveal any significant primary lesion. After much discu ssion encephalopathy likely related to some autoimmune process. Lumbar puncture was done to further evaluate. Lab sent out for further analysis of encephalitis. EEG did not showing evidence of significant seizures. Patient was placed on Keppra due to significant abnormal changes on MRI with the possibility of future seizures. Patient also received high-dose steroids for 3 days. Patient has done well. During the course of his stay his condition improved. Patient still confused at times but improved and more appropriate. Patient more alert and cooperative as well. During the course of his stay th multiple medications were adjusted including medication for blood pressure. Other medications were discontinued including buspirone, Celexa, vitamin-B 12, iron, metformin, potassium supplementation, valsartan hydrochlorothiazide and omega-3. At discharge the patient will continue home with follow up with Neurology this week. At discharge the patient will continue with Keppra 500 mg 1 pill twice daily, aspirin 81 mg daily, thiamine 100 mg daily, and folic acid 1 mg daily. At discharge the patient will also continue with prednisone 20 mg 1 pill twice daily for 7 days then 1 pill once daily for 7 days. The patient will follow up with neurology within 1 week to follow up this hospitalization and follow up further lab evaluation of autoimmune disease. Further adjustment in his medication can be done by Neurology. Lab pending include hepatitis panel, protein electrophoresis, CSF evaluation for encephalitis-autoimmune disease. Patient will establish care with Dr. Rutledge who has seen the patient for follow up . Patient has hypertension. Medications have been adjusted. Patient no longer on a valsartan hydrochlorothiazide. Medications have been adjusted. At discharge patient will continue with Norvasc 5 mg daily and carvedilol 12.5 mg 1 pill twice daily. Recommend to monitor blood pressure daily. Recommend to maintain blood pressure less than 130/80. If blood pressures remain above 140/90 then he is to follow up with his PCP to further monitor and address. Further adjustment can be done by his PCP. Patient was evaluated for diabetes. Hemoglobin A1c 6.0. Blood sugars have remained stable off medication. Patient previously on metformin. Will discontinue metformin at this time. Suspect pre diabetes. Recommend to recheck A1c in 3 months to further address and monitor. Recommend to maintain blood sugars less than 140 fasting and less than 200 after meals. If blood sugars remain above 200 then metformin may need to be restarted. This can be further addressed by his PCP. Patient with hyperlipidemia. LDL 103. Medications have been adjusted. As mentioned above omega-3 has been discontinued. At discharge patient will continue with Lipitor 40 mg daily. Recommend to recheck fasting lipid panel in 4-6 weeks to monitors progress. Further adjustment in medication can be done by his PCP. Patient with fever of all unknown etiology. As mentioned above autoimmune evaluation under way. No evidence of infection noted. Patient had negative pro calcitonin. White count within normal range. CSF did not indicate any infection. Echocardiogram unremarkable. COVID test negative. Patient with anemia of chronic disease with underlying iron deficiency. At discharge patient may continue with iron supplementation daily. Recommend to recheck CBC in 2-4 weeks to monitors progress. With his history of colon polyps, family history of colon cancer, and anemia will recommend that he follow up with GI as an outpatient for further evaluation. Patient would benefit with EGD and colonoscopy as an outpatient to further address. Vital Signs/Physical Exam: Temp Pulse Resp BP Pulse Ox 97.3 F 65 20 160/86 H 99 09/28/20 08:00 09/28/20 08:00 09/28/20 08:00 09/28/20 08:00 09/28/20 08:00 General: Alert, In no apparent distress, Oriented x2, Cooperative, Other (Less confusion noted. Patient cooperative) HEENT: Atraumatic Neck: Supple Respiratory: Clear to auscultation bilaterally, Normal air movement Cardiovascular: Normal pulses, Regular rate/rhythm Gastrointestinal: Normal bowel sounds, Soft and benign, Non-distended, No tenderness, No masses, No rebound, No guarding Musculoskeletal: No erythema, No tenderness, No warmth Integumentary: No tenderness/swelling, No erythema, No warmth, No cyanosis Neurological: Normal speech, Normal strength at 5/5 x4 extr, Normal tone, Other (Flat affect. Slight confusion noted but appropriate) Laboratory Data at Discharge: WBC 17.20 K/uL (4.3-10.9) H D 09/28/20 05:56 Hgb 9.9 g/dL (13.6-17.9) L 09/28/20 05:56 Hct 31.5 % (39.6-49.0) L 09/28/20 05:56 Plt Count 500 K/uL (152-406) H 09/28/20 05:56 PT 12.6 SECONDS (9.5-12.5) H 09/23/20 09:46 INR 1.09 09/23/20 09:46 APTT 33.7 SECONDS (24.3-36.9) 09/23/20 09:46 Sodium 141 mmol/L (136-145) 09/28/20 05:56 Potassium 4.2 mmol/L (3.5-5.1) 09/28/20 05:56 BUN 15 mg/dL (7-18) 09/28/20 05:56 Creatinine 0.96 mg/dL (0.55-1.3) 09/28/20 05:56 Glucose 138 mg/dL (74-106) H 09/28/20 05:56 Magnesium 1.9 mg/dL (1.8-2.4) 09/27/20 05:33 Total Bilirubin 0.4 mg/dL (0.2-1.0) 09/24/20 05:20 AST 4 U/L (15-37) L 09/24/20 05:20 ALT 11 U/L (12-78) L 09/24/20 05:20 Alkaline Phosphatase 89 U/L (45-117) 09/24/20 05:20 Triglycerides 153 mg/dL (<150) H 09/24/20 05:20 Cholesterol 160 mg/dL (<200) 09/24/20 05:20 HDL Cholesterol 26 mg/dL (40-60) L 09/24/20 05:20 Cholesterol/HDL Ratio 6.15 09/24/20 05:20 Home Medications: Aspirin [Aspirin EC 81 MG] 81 mg PO DAILY 09/25/20 Amlodipine Besylate [Norvasc] 5 mg PO DAILY #30 tablet 09/28/20 Atorvastatin Calcium [Lipitor] 40 mg PO BEDTIME #30 tab 09/28/20 Folic Acid 1 mg PO DAILY #90 tablet 09/28/20 Thiamine HCl [Vitamin B-1*] 100 mg PO DAILY #90 tablet 09/28/20 carvediloL [Coreg*] 12.5 mg PO BID #60 tab 09/28/20 levETIRAcetam [Keppra*] 500 mg PO BID #60 tab 09/28/20 predniSONE [Prednisone*] 20 mg PO SEECOM #21 tab 09/28/20 New Medications: carvediloL [Coreg*] 12.5 mg PO BID #60 tab Folic Acid 1 mg PO DAILY #90 tablet levETIRAcetam [Keppra*] 500 mg PO BID #60 tab Atorvastatin Calcium [Lipitor] 40 mg PO BEDTIME #30 tab Amlodipine Besylate [Norvasc] 5 mg PO DAILY #30 tablet predniSONE [Prednisone*] 20 mg PO SEECOM #21 tab Thiamine HCl [Vitamin B-1*] 100 mg PO DAILY #90 tablet Physician Discharge Instructions: Patient presented with several months of weight loss, headaches, and memory loss. The patient also presented to the emergency room with altered mental status changes. Patient was admitted for evaluation of encephalopathy. Upon initial evaluation MRI showed grossly abnormal exam with innumerable small e nhancing lesions throughout the cerebral hemisphere. The patient was admitted for further evaluation and treatment. Neurology was consulted. Further workup included stroke protocol MRI, echocardiogram, CT chest/abdomen/pelvis, abdominal ultrasound, and lumbar puncture. Early on infectious cause was ruled out. There was some suspicion of metastatic disease but CSF showed no malignant cells. CT scan did not reveal any significant primary lesion. After much discussion encephalopathy likely related to some autoimmune process. Lumbar puncture was done to further evaluate. Lab sent out for further analysis of encephalitis. EEG did not showing evidence of significant seizures. Patient was placed on Keppra due to significant abnormal changes on MRI with the possibility of future seizures. Patient also received high-dose steroids for 3 days. Patient has done well. During the course of his stay his condition improved. Patient still confused at times but improved and more appropriate. Patient more alert and cooperative as well. During the course of his stay th multiple medications were adjusted including medication for blood pressure. Other medications were discontinued including buspirone, Celexa, vitamin-B 12, iron, metformin, potassium supplementation, valsartan hydrochlorothiazide and omega-3. At discharge the patient will continue home with follow up with Neurology this week. At discharge the patient will continue with Keppra 500 mg 1 pill twice daily, aspirin 81 mg daily, thiamine 100 mg daily, and folic acid 1 mg daily. At discharge the patient will also continue with prednisone 20 mg 1 pill twice daily for 7 days then 1 pill once daily for 7 days. The patient will follow up with neurology within 1 week to follow up this hospitalization and follow up further lab evaluation of autoimmune disease. Further adjustment in his medication can be done by Neurology. Lab pending include hepatitis panel, protein electrophoresis, CSF evaluation for encephalitis-autoimmune disease. Patient will establish care with Dr. Rutledge who has seen the patient for follow up . Patient has hypertension. Medications have been adjusted. Patient no longer on a valsartan hydrochlorothiazide. Medications have been adjusted. At discharge patient will continue with Norvasc 5 mg daily and carvedilol 12.5 mg 1 pill twice daily. Recommend to monitor blood pressure daily. Recommend to maintain blood pressure less than 130/80. If blood pressures remain above 140/90 then he is to follow up with his PCP to further monitor and address. Further adjustment can be done by his PCP. Patient was evaluated for diabetes. Hemoglobin A1c 6.0. Blood sugars have remained stable off medication. Patient previously on metformin. Will discontinue metformin at this time. Suspect pre diabetes. Recommend to recheck A1c in 3 months to further address and monitor. Recommend to maintain blood sugars less than 140 fasting and less than 200 after meals. If blood sugars remain above 200 then metformin may need to be restarted. This can be further addressed by his PCP. Patient with hyperlipidemia. LDL 103. Medications have been adjusted. As mentioned above omega-3 has been discontinued. At discharge patient will continue with Lipitor 40 mg daily. Recommend to recheck fasting lipid panel in 4-6 weeks to monitors progress. Further adjustment in medication can be done by his PCP. Patient with fever of all unknown etiology. As mentioned above autoimmune evaluation under way. No evidence of infection noted. Patient had negative pro calcitonin. White count within normal range. CSF did not indicate any infection. Echocardiogram unremarkable. COVID test negative. Patient with anemia of chronic disease with underlying iron deficiency. At discharge patient may continue with iron supplementation daily. Recommend to recheck CBC in 2-4 weeks to monitors progress. With his history of colon polyps, family history of colon cancer, and anemia will recommend that he follow up with GI as an outpatient for further evaluation. Patient would benefit with EGD and colonoscopy as an outpatient to further address. Diet: ADA Activity: Ad manuela Followup: Kika Valdez NP [Primary Care Provider] - Time spent managing pt's care (in minutes): 55
[2020-09-28 20:15] LABS: HBsAG Nonreactive (Nonreactive)
[2020-09-28] MEDS ORDERED: carvediloL 12.5 MG TAB PO SCH (21:00)
[2020-09-29] MEDS ORDERED: AMLODIPINE 5 MG TAB PO SCH (09:00)
--- NOTE | 2020-09-29 10:09 | EEG ---
CHART: [id number] TEST ID#: [id number] DATE OF STUDY: 09/24/2020 THE EEG WAS RECORDED PORTABLE IN THE PATIENT'S ROOM ON A 17 CHANNEL MACHINE. ELECTRODES WERE APPLIED IN THE USUAL MANNER USING THE INTERNATIONAL 10-20 SYSTEM. THE WAKING BACKGROUND RHYTHM IN THIS RECORD CONSISTS OF POORLY DEVELOPED AND POORLY ORGANIZED WAVES OF 6-7 HZ., [*] WHICH ATTENUATE POORLY WITH EYE OPENING. MODERATE VOLTAGE 1.5-3 HZ ACTIVITY IS EXPRESSED IN THE FRONTAL REGIONS. MULTIFOCAL SHARP WAVES ARE SEEN IN THE LEFT AND RIGHT TEMPORAL REGION. THERE ARE NO FOCAL OR LATERALIZING FEATURES. NO EPILEPTIFORM ACTIVITY APPEARS. SLEEP OCCURRED NATURALLY. IN ADDITION NORMAL SLEEP PATTERNS ARE PRESENT. HYPERVENTILATION WAS NOT PERFORMED. PHOTIC STIMULATION PRODUCED NO DRIVING BILATERALLY. IMPRESSION: THIS IS A MODERATELY ABNORMAL EEG DUE TO THE PRESENCE OF A MODERATELY SLOW BACKGROUND AND OCCIPITAL DOMINANT RHYTHM. FURTHERMORE, MULTIFOCAL SHARP WAVES ARE PRESENT. THESE FINDINGS ARE CONSISTENT WITH A DIFFUSE DISTURBANCE IN CEREBRAL ACTIVITY.
[2020-09-29 21:50] LABS: Albumin, (SPE) 3.1 g/dL (3.8-4.8); Alpha-1-Globulins 0.4 g/dL (0.2-0.3); Alpha-2-Globulins 0.9 g/dL (0.5-0.9); Gamma Globulins 0.7 g/dL (0.8-1.7); INTERPRETATION REPORT
== END 2020-09-28 14:24 | disposition home or self-care (01) | DRG 99 ==
LOC: ER 09:28 → ERHOLD 14:06 → 2ND 16:06 → OBSVTOIN 09-24 08:08
PROVIDERS: ADMIT Family Medicine; ATTEND Family Medicine
PROC: 009U3ZX Drainage of Spinal Canal, Percutaneous Approach, Diagnostic (ICD-10-PCS; principal; 2020-09-24)
DX: B00.4 Herpesviral encephalitis (principal); I10 Essential (primary) hypertension; F17.210 Nicotine dependence, cigarettes, uncomplicated; D50.9 Iron deficiency anemia, unspecified; E78.2 Mixed hyperlipidemia; R73.9 Hyperglycemia, unspecified; R73.03 Prediabetes; R50.9 Fever, unspecified; Z85.038 Personal history of other malignant neoplasm of large intestine; Z86.73 Personal history of transient ischemic attack (TIA), and cerebral infarction without residual deficits; Z90.49 Acquired absence of other specified parts of digestive tract; Z88.8 Allergy status to other drugs, medicaments and biological substances; Z79.82 Long term (current) use of aspirin; Z79.52 Long term (current) use of systemic steroids; Z20.822 Contact with and (suspected) exposure to COVID-19
CPT/HCPCS: 36415; 70450; 70544; 70549; 70553; 71045; 71250; 74176; 76700; 77003; 80048; 80053; 80061; 80074; 80307; 81003; 82550; 82607; 82728; 82945; 82947; 83036; 83540; 83735; 84132; 84145; 84157; 84165; 84439; 84443; 84466; 84484; 85025; 85610; 85652; 85730; 86038; 86140; 86430; 86592; 87015; 87040; 87070; 87116; 87206; 87389; 88108; 88161; 89050; 92610; 93005; 93306; 93880; 95819; 97161; 99285; A9577; G0103; G0378; J1644; J1953; J2930; J3411; J3475; J7030; U0003

== ENCOUNTER 2020-11-12 16:13 | Inpatient (IN) | payer SELFPAY ==
--- NOTE | 2020-11-12 16:48 | RAD REPORT ---
EXAM DESCRIPTION: CT - Ct Stroke Brain Wo Cont - 11/12/2020 4:38 pm CLINICAL HISTORY: MENTAL STATUS CHANGEsome non sip headache COMPARISON: Ct Stroke Brain Wo Cont dated 09/23/2020; Head Brain Wo Cont dated 04/07/2020; Brain W/Wo C ont dated 09/23/2020 TECHNIQUE: Axial 5 millimeter thick images of the head were obtained without IV contrast. All CT scans are performed using dose optimization technique as appropriate and may include automated exposure control or mA/KV adjustment according to patient size. FINDINGS: No intracranial hemorrhage, mass, or cerebral edema. No acute infarction identifiable. No cortical edema or sulcal effacement. Garcia matter-white matter differentiation is preserved.Ventricles are normal in size, unchanged from the most recent MRI and CT studies. 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 No follow-up information is availab le. There are no correlates on this examination. Visualized portions of the mastoid air cells, paranasal sinuses, and orbits are unremarkable. Findings telephoned to Nikolay Grace 1643 hours IMPRESSION: No CT evidence of acute intracranial process.
[2020-11-12 17:09] LABS: Absolute Lymphocytes (CBC) 2.5 K/uL (0.7-4.9); Basophils % 1.7 % (0-1.3); Hematocrit 34.3 % (39.6-49.0); Lymphocytes % 23.4 % (15.3-44.8); MPV 7.4 fL (7.6-11.3); RBC Red Blood Cell Count 4.43 M/uL (4.33-5.43)
[2020-11-12 17:13] LABS: Protime INR 1.12
[2020-11-12 17:25] LABS: ALT/SGPT 12 U/L (12-78); AST/SGOT 6 U/L (15-37); Albumin 3.4 g/dL (3.4-5.0); Alkaline Phosphatase 89 U/L (45-117); BUN Blood Urea Nitrogen 10 mg/dL (7-18); Bicarbonate 27 mmol/L (21-32); Bilirubin Direct < 0.1 mg/dL (0-0.2); Bilirubin Total 0.3 mg/dL (0.2-1.0); Glucose Level 103 mg/dL (74-106); Magnesium 1.9 mg/dL (1.8-2.4); Potassium 3.5 mmol/L (3.5-5.1); Sodium Level 142 mmol/L (136-145); Troponin (Emerg Dept Use Only) < 0.02 ng/mL (0.0-0.045)
[2020-11-12] MEDS ORDERED: DIVALPROEX DR 250 MG TAB PO ONE (17:38)
[2020-11-12] MEDS ORDERED: NA CHLORIDE 0.9% 100 ML ONE (17:53)
--- NOTE | 2020-11-12 17:56 | RAD REPORT ---
EXAM DESCRIPTION: RAD - Chest Single View - 11/12/2020 5:15 pm CLINICAL HISTORY: DYSPNEA COMPARISON: Portable September 23 TECHNIQUE: AP portable chest image was obtained 11/12/2020 5:15 pm . FINDINGS: Lung volumes are low. No peripheral mass, consolidation or significant pulmonary edema. No cardiomegaly. Vasculature and lung markings are accentuated by body habitus, portable technique and low lung volume. Minimal edema or infiltrate could be masked. No measurable pleural effusion and no p neumothorax. No acute bony abnormality seen. No acute aortic findings suspected. IMPRESSION: Limited shallow inspiration exam no acute cardiopulmonary finding. Due to body habitus and low lung volume affects, minimal interstitial edema or infiltrate could be ma sked.
[2020-11-12] MEDS ORDERED: ACYCLOVIR IVPB ONE (18:00)
[2020-11-12] MEDS ORDERED: NA CHLORIDE 0.9% IVPB ONE (18:00)
[2020-11-12] MEDS ORDERED: LORazepam 2 MG/ML VIAL ONE (18:20)
--- NOTE | 2020-11-12 18:43 | ER ---
Nurse's Notes [facility] Name: Mike Francis III Age: 45 yrs Sex: Male : 1975 Arrival Date: 11/12/2020 Time: 16:14 Bed 6 Private MD: Diagnosis: Encephalopathy;Herpesviral encephalitis Presentation: 11/12 16:35 Chief complaint: Patient states: Sudden onset of LOUISE and words not making sense to ll1 at 1452 today. Shaking. Here September 23 for similar problems, they found lesions on the brain and swelling of the brain. Coronavirus screen: Client denies travel out of the [place] in the last 14 days. At this time, the client does not indicate any symptoms associated with coronavirus-19. Ebola Screen: Patient denies travel to an Ebola-affected area in the 21 days before illness onset. Initial Sepsis Screen: Does the patient meet any 2 criteria? No. Patient's initial sepsis screen is negative. Does the patient have a suspected source of infection? Yes: Other: LOUISE. Risk Assessment: Do you want to hurt yourself or someone else? Patient reports no desire to harm self or others. Onset of symptoms was November 12, 2020. 16:35 Method Of Arrival: Wheelchair ll1 16:35 Acuity: IFEANYI 2 ll1 Historical: - Allergies: 16:35 Iodine; ll1 - Home Meds: 16:42 amlodipine 10 mg tab 1 tab once daily [Active]; carvedilol 25 mg Oral tab 1 tab 2 times jl7 per day [Active]; levetiracetam 500 mg oral tab 1 tab 2 times per day [Active]; atorvastatin 20 mg Oral tab once daily [Active]; carbamazepine 200 mg Oral CM12 [Active]; thiamine HCl (vitamin B1) 100 mg Oral tab [Active]; folic acid 1 mg Oral tab 1 tab once daily [Active]; - PMHx: 16:35 Diabetes - NIDDM; High Cholesterol; Hypertension; Mild Heart Attack x 2; brain ll1 lesions/swelling of the brain; - PSHx: 16:35 Appendectomy; ll1 - Immunization history:: Flu vaccine is not up to date. - Social history:: Smoking status: Patient reports the use of cigarette tobacco products, smokes one-half pack cigarettes per day. Screenin:44 Abuse screen: Denies threats or abuse. Nutritional screening: No deficits noted. tr6 Tuberculosis screening: No symptoms or risk factors identified. Fall Risk None identified. 11/13 01:40 Patient has been NPO before screening. The patient is alert, able to follow commands. rr5 The patient does not exhibit slurred or garbled speech The patient is not exhibiting difficulty speaking. The patient does not exhibit difficulty understanding words. The patient is able to swallow own secretions with no drooling or need for suction. Patient tolerated one teaspoon of water. No drooling, immediate coughing, gurgling, or clearing of the throat was noted. The patient tolerated 90mL of water. No drooling, immediate coughing, gurgling, or clearing of the throat was noted. The patient passed the bedside swallow screening. Oral medications may be given as ordered. Contact Physician for further diet orders. Assessment: 11/12 16:30 General: Appears in no apparent distress. uncomfortable, Behavior is appropriate for ld1 age, agitated. Pain: Denies pain. Neuro: Level of Consciousness is awake, alert, confused, Oriented to person. 16:30 Cardiovascular: Capillary refill < 3 seconds Patient's skin is warm and dry. ld1 Respiratory: Airway is patent Respiratory effort is even, unlabored, Respiratory pattern is regular, symmetrical. GI: Abdomen is flat, non-distended. : No deficits noted. EENT: No deficits noted. Derm: No deficits noted. Musculoskeletal: No deficits noted. 19:35 General: Appears in no apparent distress. uncomfortable, Behavior is agitated, rr5 uncooperative. Neuro: Level of Consciousness is awake, alert, confused, Oriented to person. Cardiovascular: Capillary refill < 3 seconds Patient's skin is warm and dry. Respiratory: Airway is patent Respiratory effort is even, unlabored, Respiratory pattern is regular, symmetrical. Derm: Skin is intact, is healthy with good turgor, Skin temperature is warm. Musculoskeletal: No signs and/or symptoms reported regarding the musculoskeletal system. 20:35 Reassessment: Patient appears in no apparent distress at this time. Patient and/or rr5 family updated on plan of care and expected duration. Pain level reassessed. awaiting for covid result. 21:30 Reassessment: Patient appears in no apparent distress at this time. admitted as ER rr5 Hold. resting eyes closed breathing spontaneously at room air. Vital Signs: 16:35 BP 152 / 85; Pulse 80; Resp 17; Temp 98.2; Pulse Ox 100% ; Weight 108.41 kg; Height 6 ll1 ft. 5 in. (195.58 cm); 17:45 BP 154 / 97; Pulse 70; Resp 17; Pulse Ox 100% on R/A; tw2 18:31 BP 168 / 99; Pulse 84; Resp 18; Pulse Ox 98% on R/A; tw2 19:00 BP 156 / 89; Pulse 76; Resp 17; Pulse Ox 98% on R/A; rv 19:30 BP 155 / 98; Pulse 95; Resp 17; Pulse Ox 100% on R/A; rv 19:53 BP 161 / 85; Pulse 80; Resp 17; Temp 98.9; Pulse Ox 98% ; rr5 20:30 BP 151 / 95; Pulse 95; Resp 19; Pulse Ox 100% on R/A; rv 21:30 BP 128 / 104; Pulse 90; Resp 18; Pulse Ox 98% ; rr5 11/13 10:59 BP 157 / 104; Pulse 99; Resp 18; Pulse Ox 98% ; ld1 11/12 16:35 Body Mass Index 28.34 (108.41 kg, 195.58 cm) 1 ED Course: 11/12 16:14 Patient arrived in ED. as 16:33 Nikolay Grace PA is PHCP. jr8 16:33 Romario Aldridge MD is Attending Physician. jr8 16:34 Arm band placed on Patient placed in an exam room, on a stretcher, Patient's private 1 physician notified Patient stroke alert called, wheeled to CT. 16:37 Triage completed. 1 16:37 Mary Trinidad, AD is Primary Nurse. jl7 16:38 CT Stroke Brain w/o Contrast In Process Unspecified. EDMS 16:44 Placed in gown. Bed in low position. Adult w/ patient. color television console monitor on. Pulse ox on. tr6 NIBP on. 16:48 Missed attempt(s): 22 gauge in right forearm. Bleeding controlled, band aid applied, jl7 catheter tip intact. 16:48 Initial lab(s) drawn, by [employer], sent to lab. EKG done, by ED staff, reviewed by Nikolay ORTIZ. 16:50 Missed attempt(s): 20 gauge in right wrist. Bleeding controlled, band aid applied, jl7 catheter tip intact. 16:55 Missed attempt(s): 22 gauge in left forearm. Bleeding controlled, band aid applied, jl7 catheter tip intact. 17:14 Stroke CXR 1 View In Process Unspecified. EDMS 17:19 Inserted saline lock: 20 gauge in left hand, using aseptic technique. Blood collected. dh4 18:37 No provider procedures requiring assistance completed. ld1 18:39 Keny Rutledge MD is Hospitalizing Provider. jr8 18:52 COVID-19 : Document "Date of Symptom Onset" if Symptomatic. Sent. jl7 18:56 COVID-19 : Document "Date of Symptom Onset" if Symptomatic. Sent. ld1 19:12 Primary Nurse role handed off by Mary Trinidad, AD mw2 19:17 Chinmay Chaparro RN is Primary Nurse. rr5 23:28 Patient admitted, IV remains in place. intact, No redness/swelling at site. rr5 Administered Medications: 17:32 Drug: Depakote (divalproex) 1000 mg Route: PO; ld1 18:00 Follow up: Response: No adverse reaction ld1 17:40 Drug: SOLU-Medrol (methylPrednisoLONE) 1000 mg Route: IVP; Site: left forearm; ld1 18:33 Follow up: Response: No adverse reaction ld1 18:05 Drug: Ativan (LORazepam) 0.5 mg Route: IVP; Site: left forearm; ld1 18:25 Follow up: Response: No adverse reaction ld1 18:33 Follow up: Response: No adverse reaction ld1 18:47 Drug: Acyclovir 10 mg/kg Route: IVPB; Site: left wrist; ld1 19:30 Follow up: Response: No adverse reaction; IV Status: Completed infusion; IV Intake: rr5 100ml 18:47 Drug: Acyclovir 10 mg/kg Route: IVPB; Site: left wrist; ld1 Intake: 19:30 IV: 100ml; Total: 100ml. rr5 Outcome: 18:42 Decision to Hospitalize by Provider. jr8 21:30 Admitted to ER Hold. Please see [facility] for further documentation. rr5 21:30 Condition: stable 21:30 Instructed on the need for admit. 11/13 14:16 Admitted to Tele accompanied by nurse, via stretcher, room 201, with chart, Report jd3 called to Stella DUONG Instructed on the need for admit. 14:16 Patient left the ED. jd3 Signatures: Dispatcher [employer] EDMag Rene Josh, PA PA jr8 Eva Mobley, RN RN tw2 Hilary Zapata, RN RN jl7 Manuel Melissa RN RN jd3 Ronda Shields 2 Rocael Scott, RN RN Chinmay Chaparro, RN RN rr5 Nii Qureshi 4 Mireya Rea RN RN ll1 Mary Trinidad RN RN ld1 Gabriella Cox, RN RN tr6
--- NOTE | 2020-11-12 18:43 | EDPHYS ---
Physician Documentation [facility] Name: Mike Francis III Age: 45 yrs Sex: Male : 1975 Arrival Date: 11/12/2020 Time: 16:14 Bed 6 Private MD: ED Physician Romario Aldridge HPI: 11/12 18:42 This 45 yrs old Black Male presents to ER via Wheelchair with complaints of Confusion. jr8 18:42 Patient brought in by for acute onset confusion. Stated that he has had this once jr8 before recently and was diagnosed with HSV encephalitis. Stated that they had noticed slow mental decline for the past 6 months but then had abrupt change earlier this month. Had been following up with Dr. Soria for continued care post last admission. Currently has been weaning down hon his Keppra . Severity of symptoms: At their worst the symptoms were moderate in the emergency department the symptoms are unchanged. The patient has experienced a previous episode. The patient has been recently seen by a physician:. Historical: - Allergies: 16:35 Iodine; ll1 - Home Meds: 16:42 amlodipine 10 mg tab 1 tab once daily [Active]; carvedilol 25 mg Oral tab 1 tab 2 times jl7 per day [Active]; levetiracetam 500 mg oral tab 1 tab 2 times per day [Active]; atorvastatin 20 mg Oral tab once daily [Active]; carbamazepine 200 mg Oral CM12 [Active]; thiamine HCl (vitamin B1) 100 mg Oral tab [Active]; folic acid 1 mg Oral tab 1 tab once daily [Active]; - PMHx: 16:35 Diabetes - NIDDM; High Cholesterol; Hypertension; Mild Heart Attack x 2; brain ll1 lesions/swelling of the brain; - PSHx: 16:35 Appendectomy; ll1 - Immunization history:: Flu vaccine is not up to date. - Social history:: Smoking status: Patient reports the use of cigarette tobacco products, smokes one-half pack cigarettes per day. ROS: 18:42 Unable to obtain ROS due to altered mental status. jr8 Exam: 18:42 Eyes: Pupils equal round and reactive to light, extra-ocular motions intact. Lids and jr8 lashes normal. Conjunctiva and sclera are non-icteric and not injected. Cornea within normal limits. Periorbital areas with no swelling, redness, or edema. ENT: Nares patent. No nasal discharge, no septal abnormalities noted. Tympanic membranes are normal and external auditory canals are clear. Oropharynx with no redness, swelling, or masses, exudates, or evidence of obstruction, uvula midline. Mucous membranes moist. Cardiovascular: Regular rate and rhythm with a normal S1 and S2. No gallops, murmurs, or rubs. Normal PMI, no JVD. No pulse deficits. Respiratory: Lungs have equal breath sounds bilaterally, clear to auscultation and percussion. No rales, rhonchi or wheezes noted. No increased work of breathing, no retractions or nasal flaring. Abdomen/GI: Soft, non-tender, with normal bowel sounds. No distension or tympany. No guarding or rebound. No evidence of tenderness throughout. Back: No spinal tenderness. No costovertebral tenderness. Full range of motion. Skin: Warm, dry with normal turgor. Normal color with no rashes, no lesions, and no evidence of cellulitis. MS/ Extremity: Pulses equal, no cyanosis. Neurovascular intact. Full, normal range of motion. 18:42 Neuro: Orientation: to person, Mentation: able to follow commands, confused, Memory: immediate memory is intact, remote memory is impaired, recent memory is impaired, Cranial nerves: CN I not tested, CN II- XII are normal as tested, extraocular movements are intact, Facial palsy and sensory deficits are absent. no gross hearing deficit,. Nystagmus is absent. Speech is clear and appropriate. Tongue strength is normal, Motor: moves all fours, Sensation: no obvious gross deficits, Abnormal movements: resting tremor, is located in the right arm. Vital Signs: 16:35 BP 152 / 85; Pulse 80; Resp 17; Temp 98.2; Pulse Ox 100% ; Weight 108.41 kg; Height 6 ll1 ft. 5 in. (195.58 cm); 17:45 BP 154 / 97; Pulse 70; Resp 17; Pulse Ox 100% on R/A; tw2 18:31 BP 168 / 99; Pulse 84; Resp 18; Pulse Ox 98% on R/A; tw2 19:00 BP 156 / 89; Pulse 76; Resp 17; Pulse Ox 98% on R/A; rv 19:30 BP 155 / 98; Pulse 95; Resp 17; Pulse Ox 100% on R/A; rv 19:53 BP 161 / 85; Pulse 80; Resp 17; Temp 98.9; Pulse Ox 98% ; rr5 20:30 BP 151 / 95; Pulse 95; Resp 19; Pulse Ox 100% on R/A; rv 21:30 BP 128 / 104; Pulse 90; Resp 18; Pulse Ox 98% ; rr5 11/13 10:59 BP 157 / 104; Pulse 99; Resp 18; Pulse Ox 98% ; ld1 11/12 16:35 Body Mass Index 28.34 (108.41 kg, 195.58 cm) ll1 MDM: 11/12 16:33 Patient medically screened. jr8 18:24 Data reviewed: vital signs, nurses notes, lab test result(s), EKG, radiologic studies, [facility] CT scan. Data interpreted: Pulse oximetry: on room air is 100 %. Interpretation: normal. Counseling: I had a detailed discussion with the patient and/or guardian regarding: the historical points, exam findings, and any diagnostic results supporting the discharge/admit diagnosis, lab results, radiology results, the need for further work-up and treatment in the hospital. 18:42 Physician consultation: Shmuel Soria MD was called at 17:30, was contacted at 17:30, [facility] regarding consult, and will see patient in inpatient room. 11/12 16:34 Order name: Hepatic Function; Complete Time: 17:52 [facility] 11/12 16:34 Order name: Troponin (emerg Dept Use Only); Complete Time: 17:52 [facility] 11/12 16:34 Order name: Magnesium; Complete Time: 17:52 [facility] 11/12 16:34 Order name: Basic Metabolic Panel; Complete Time: 17:52 [facility] 11/12 16:34 Order name: CBC with Diff; Complete Time: 17:52 [facility] 11/12 16:34 Order name: Protime (+inr); Complete Time: 17:52 [facility] 11/12 16:34 Order name: Ptt, Activated; Complete Time: 17:52 [facility] 11/12 17:07 Order name: Glucose, Ancillary Testing; Complete Time: 17:52 EDMS 11/12 18:50 Order name: COVID-19 : Document "Date of Symptom Onset" if Symptomatic. [facility] 11/12 18:50 Order name: COVID-19 : Document "Date of Symptom Onset" if Symptomatic. 8 11/12 20:28 Order name: SARS-COV-2 RT PCR; Complete Time: 21:34 EDMS 11/13 06:21 Order name: CBC with Automated Diff; Complete Time: 09:56 EDMS 11/12 16:34 Order name: CT Stroke Brain w/o Contrast; Complete Time: 17:06 8 11/12 16:34 Order name: Stroke CXR 1 View; Complete Time: 18:08 [facility] 11/12 16:34 Order name: EKG; Complete Time: 16:34 jr8 11/12 16:34 Order name: Accucheck; Complete Time: 18:22 8 11/12 16:34 Order name: Cardiac monitoring; Complete Time: 18:22 [facility] 11/12 16:34 Order name: EKG - Nurse/Tech; Complete Time: 18:22 8 11/12 16:34 Order name: IV Saline Lock; Complete Time: 18:22 [facility] 11/12 16:34 Order name: Labs collected and sent; Complete Time: 18:22 [facility] 11/12 19:36 Order name: CONS Physician Consult EDMS 11/13 06:41 Order name: Basic Metabolic Panel; Complete Time: 09:24 EDMS 11/13 09:47 Order name: Manual Differential; Complete Time: 09:56 EDMS 11/13 11:56 Order name: Glucose, Ancillary Testing; Complete Time: 11:56 EDMS 11/12 16:34 Order name: NPO; Complete Time: 18:22 [facility] 11/12 16:34 Order name: O2 Per Protocol; Complete Time: 18:22 [facility] 11/12 16:34 Order name: O2 Sat Monitoring; Complete Time: 18:22 8 11/12 16:34 Order name: Stroke Swallow Screen; Complete Time: 01:48 jr8 Administered Medications: 17:32 Drug: Depakote (divalproex) 1000 mg Route: PO; ld1 18:00 Follow up: Response: No adverse reaction ld1 17:40 Drug: SOLU-Medrol (methylPrednisoLONE) 1000 mg Route: IVP; Site: left forearm; ld1 18:33 Follow up: Response: No adverse reaction ld1 18:05 Drug: Ativan (LORazepam) 0.5 mg Route: IVP; Site: left forearm; ld1 18:25 Follow up: Response: No adverse reaction ld1 18:33 Follow up: Response: No adverse reaction ld1 18:47 Drug: Acyclovir 10 mg/kg Route: IVPB; Site: left wrist; ld1 19:30 Follow up: Response: No adverse reaction; IV Status: Completed infusion; IV Intake: rr5 100ml 18:47 Drug: Acyclovir 10 mg/kg Route: IVPB; Site: left wrist; ld1 Disposition: 11/13 15:24 Co-signature as Attending Physician, Romario Aldridge MD. rn Disposition: 11/12/20 18:42 Hospitalization ordered by Keny Rutledge for Inpatient Admission. Preliminary diagnosis are Encephalopathy, Herpesviral encephalitis. - Bed requested for Telemetry/MedSurg (observation). - Status is Inpatient Admission. jd3 - Condition is Stable. - Problem is new. - Symptoms are unchanged. Signatures: Dispatcher [employer] EDMS Priya Schultz, AD DUONG iw Romario Aldridge MD MD rn Roszak, Josh, PA PA jr8 Hilary Zapata RN AD jl7 Rosa Hameed mn Manuel Melissa RN RN jd3 Alyson, Ronda mw2 Mireya Rea RN RN brody1 Mary Trinidad RN RN ld1 Chinmay Chaparro RN rr5 Corrections: (The following items were deleted from the chart) 11/12 18:51 18:51 CORONAVIRUS ordered. EDTN EDMS 18:51 18:51 CORONAVIRUS ordered. EDTN EDMS 19:39 18:51 CORONAVIRUS ordered. [facility] EDTN 21:01 18:42 Hospitalization Ordered by Keny Rutledge MD for Inpatient Admission. Preliminary diagnosis is Encephalopathy; Herpesviral encephalitis. Bed requested for Telemetry/MedSurg (Inpatient). Status is Inpatient Admission. Condition is Stable. Problem is new. Symptoms are unchanged. jr8 21: 21:01 11/12/2020 18:42 Hospitalization Ordered by Keny Rutledge MD for Inpatient mw2 Admission. Preliminary diagnosis is Encephalopathy; Herpesviral encephalitis. Bed requested for [facility] ER HOLD. Status is Inpatient Admission. Condition is Stable. Problem is new. Symptoms are unchanged. 11/13 12:52 11/12 21:01 11/12/2020 18:42 Hospitalization Ordered by Keny Rutledge MD for Inpatient mt Admission. Preliminary diagnosis is Encephalopathy; Herpesviral encephalitis. Bed requested for [facility] ER HOLD. Status is Inpatient Admission. Condition is Stable. Problem is new. Symptoms are unchanged. mw2 11/13 14:16 12:52 11/12/2020 18:42 Hospitalization Ordered by Keny Rutledge MD for Inpatient jd3 Admission. Preliminary diagnosis is Encephalopathy; Herpesviral encephalitis. Bed requested for Telemetry/MedSurg (observation). Status is Inpatient Admission. Condition is Stable. Problem is new. Symptoms are unchanged. mt
[2020-11-12] MEDS ORDERED: ACETAMINOPHEN 500 MG TAB PO PRN (23:12)
[2020-11-12] MEDS ORDERED: ONDANSETRON 4 MG/2 ML VIAL IV PRN (23:12)
[2020-11-12 23:16] VITALS: BMI 28.3
[2020-11-13] MEDS: ACYCLOVIR IVPB SCH ×3 (01:00→17:31)
[2020-11-13] MEDS: NA CHLORIDE 0.9% IVPB SCH ×3 (01:00→17:31)
[2020-11-13 06:20] LABS: Absolute Lymphocytes (CBC) 0.8 K/uL (0.7-4.9); Basophils % 0.3 % (0-1.3); Hematocrit 35.4 % (39.6-49.0); MPV 7.4 fL (7.6-11.3); RBC Red Blood Cell Count 4.64 M/uL (4.33-5.43)
[2020-11-13 06:40] LABS: BUN Blood Urea Nitrogen 11 mg/dL (7-18); Bicarbonate 27 mmol/L (21-32); Glucose Level 150 mg/dL (74-106); Potassium 3.5 mmol/L (3.5-5.1); Sodium Level 140 mmol/L (136-145)
[2020-11-13] MEDS ORDERED: NA CHLORIDE 0.9% 100 ML ONE (07:49)
[2020-11-13] MEDS ORDERED: DIVALPROEX DR 250 MG TAB PO ONE (07:49)
[2020-11-13] MEDS: METHYLPRED NA SUC 1,000 MG in NA CHLORIDE 0.9% 100 ML IV SCH (08:29)
[2020-11-13] MEDS: DIVALPROEX DR 500MG TAB PO SCH ×2 (08:29→20:05)
[2020-11-13] MEDS ORDERED: METHYLPREDNISOLONE 40 MG INJ IV SCH (09:00)
[2020-11-13] MEDS: LORazepam 2 MG/ML VIAL IV PRN ×3 (09:23→21:47)
--- NOTE | 2020-11-13 09:29 | P.HP ---
Certification for Inpatient Patient admitted to: Inpatient With expected LOS: >2 Midnights Patient will require the following post-hospital care: Home Health Services Practitioner: I am a practitioner with admitting privileges, knowledge of patient current condition, hospital course, and medical plan of care. 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 He has a previous history of htn and encephalopathy a month ago. 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 The patient was discharged on keppra, prednisone and 2 weeks of acyclovir. Yesterday he started having headaches and confusion. He is not at the baseline mentation that he was at when I last in the office. He has some tremors in his hands. The patient is not able to give a good history at this time. Allergies iodine Allergy (Verified 09/25/20 11:56) Anaphylaxis Home Medications: Aspirin [Aspirin EC 81 MG] 81 mg PO DAILY 09/25/20 Amlodipine Besylate [Norvasc] 5 mg PO DAILY #30 tablet 09/28/20 Atorvastatin Calcium [Lipitor] 40 mg PO BEDTIME #30 tab 09/28/20 Folic Acid 1 mg PO DAILY #90 tablet 09/28/20 Thiamine HCl [Vitamin B-1*] 100 mg PO DAILY #90 tablet 09/28/20 carvediloL [Coreg*] 12.5 mg PO BID #60 tab 09/28/20 levETIRAcetam [Keppra*] 500 mg PO BID #60 tab 09/28/20 predniSONE [Prednisone*] 20 mg PO SEECOM #21 tab 09/28/20 Acyclovir 400 mg PO TID #42 tablet 10/10/20 - Past Medical/Surgical History Has patient received pneumonia vaccine in the past: No Diabetic: Yes -: Diabetes mellitus type 2 -: Hypertension -: Hyperlipidemia -: Colon polyps -: Anxiety -: Appendectomy Psychosocial/ Personal History: Patient is . 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 - Family History Father -: Cancer Notes: colon Mother -: Hypertension - Social History Smoking Status: Current every day smoker Alcohol use: No CD- Drugs: No Caffeine use: Yes Review of Systems is unable to be obtained Physical Examination - Vital Signs Temperature: 98.2 F Blood Pressure: 157/104 Pulse: 96 Respirations: 15 Pulse Ox (%): 99 - Physical Exam General: Alert, Mild distress, Confused HEENT: Atraumatic, PERRLA, Mucous membr. moist/pink, EOMI, Sclerae nonicteric Neck: Supple, 2+ carotid pulse no bruit, No LAD, Without JVD or thyroid abnormality Respiratory: Clear to auscultation bilaterally, Normal air movement Cardiovascular: Regular rate/rhythm, Normal S1 S2 Gastrointestinal: Normal bowel sounds, No tenderness Musculoskeletal: No tenderness Integumentary: No rashes Neurological: Normal tone, Other (intention tremors of the hands), Abnormal affect Lymphatics: No axilla or inguinal lymphadenopathy - Studies Laboratory Data (last 24 hrs) 11/12/20 16:55: PT 12.9 H, INR 1.12, APTT 20.6 L 11/12/20 16:55: WBC 10.60, Hgb 10.7 L, Hct 34.3 L, Plt Count 325 11/12/20 16:55: Sodium 142, Potassium 3.5, BUN 10, Creatinine 1.01, Glucose 103, Magnesium 1.9, Total Bilirubin 0.3, AST 6 L, ALT 12, Alkaline Phosphatase 89 Assessment and Plan - Problems (Diagnosis) (1) Encephalitis Current Visit: No Status: Acute Plan: Sunil being seen by Dr. Soria. Is on steroids. Switched his keppra to dilaudid. Will continue to monitor the patient. (2) HTN (hypertension) Current Visit: No Status: Acute Plan: will restart his home amlodipine Qualifiers: Hypertension type: essential hypertension Qualified Code(s): I10 - Essential (primary) hypertension (3) Hyperlipemia Current Visit: No Status: Acute Plan: hold the statin for now. We can restart after his mentation improves. He may have difficulty complying with medications. Qualifiers: Hyperlipidemia type: moderate mixed hyperlipidemia not requiring statin therapy Qualified Code(s): E78.2 - Mixed hyperlipidemia Discharge Plan: Home Plan to discharge in: Greater than 2 days - Advance Directives Does patient have a Living Will: No Does patient have a Durable POA for Healthcare: No - Code Status/Comfort Care Code Status Assessed: Yes Code Status: Full Code Physician Review: Patient Assessed, Agree with Above Assessment and Plan Critical Care: No Time Spent Managing Pts Care (In Minutes): 40
[2020-11-13] MEDS ORDERED: GLUCAGON 1 MG/VIAL IM PRN (09:34)
[2020-11-13] MEDS ORDERED: D50W 25 GM/50 ML SYRINGE IV PRN (09:34)
[2020-11-13] MEDS ORDERED: LORazepam 2 MG/ML VIAL ONE ×2 (09:36→21:44)
[2020-11-13 09:46] LABS: Anisocytosis 1+; Blood Morphology Comment NOTED (NOT SEEN); Platelet Estimate INCR
[2020-11-13] MEDS: INSULIN -REGULAR HUMAN 50 UNIT/0.5 ML ML SQ SCH ×3 (11:30→21:00)
[2020-11-13] MEDS ORDERED: METRONIDAZOLE 500mg IVPB 500 MG/100 ML BAG IV ONE (11:31)
[2020-11-13] MEDS ORDERED: CIPROFLOXACIN 400mg IV 400 MG/200 ML BAG IV ONE (11:31)
[2020-11-13] MEDS ORDERED: INSULIN -REGULAR HUMAN 50 UNIT/0.5 ML ML ONE (12:05)
[2020-11-13] MEDS: ENOXAPARIN 40 MG/0.4 ML SQ SCH (17:31)
[2020-11-13] MEDS ORDERED: MORPHINE 4 MG/ML SYR IV ONE (21:18)
[2020-11-13] MEDS ORDERED: MORPHINE 2 MG/ML SYR ONE (21:44)
[2020-11-13] MEDS ORDERED: ZIPRASIDONE MESYLA 20 MG/VIAL IM ONE (23:03)
[2020-11-13] MEDS: WATER FOR INJ,STERILE 10 ML IM PRN (23:22)
[2020-11-14] MEDS: NA CHLORIDE 0.9% IVPB SCH ×3 (01:14→17:22)
[2020-11-14] MEDS: ACYCLOVIR IVPB SCH ×3 (01:14→17:22)
[2020-11-14] MEDS: PANTOPRAZOLE 40MG TABLET PO SCH (05:43)
[2020-11-14] MEDS: LORazepam 2 MG/ML VIAL IV PRN ×2 (05:43→21:11)
[2020-11-14] MEDS: INSULIN -REGULAR HUMAN 50 UNIT/0.5 ML ML SQ SCH ×4 (07:30→21:10)
[2020-11-14] MEDS ORDERED: ZIPRASIDONE MESYLA 20 MG/VIAL IM PRN (07:49)
[2020-11-14] MEDS ORDERED: WATER FOR INJ,STERILE 10 ML IM PRN (07:49)
--- NOTE | 2020-11-14 08:12 | P.PN ---
Subjective Date of Service: 11/14/20 Primary Care Provider: Maty Chief Complaint: altered mental status Subjective: New changes (Patient very agitated last night. needed a lot of sedation to keep him calm) Review of Systems is unable to be obtained General: Weakness Neurological: Confusion Physical Examination - Vital Signs Temperature: 98 F Blood Pressure: 166/92 Pulse: 82 Respirations: 18 Pulse Ox (%): 96 - Physical Exam General: Mild distress, Delirious HEENT: Atraumatic, PERRLA, EOMI Neck: Supple, JVD not distended Respiratory: Clear to auscultation bilaterally, Normal air movement Cardiovascular: Regular rate/rhythm, Normal S1 S2 Gastrointestinal: Normal bowel sounds, No tenderness Musculoskeletal: No tenderness Integumentary: No rashes Neurological: Abnormal strength (4/5), Abnormal affect (confused and nonverbal ) Lymphatics: No axilla or inguinal lymphadenopathy Assessment & Plan - Problems (Diagnosis) (1) Encephalitis Current Visit: No Status: Acute Plan: Sunil being seen by Dr. Soria. Is on steroids. Switched his keppra to dilaudid. Will continue to monitor the patient. 11/14 Continue acyclovir. Ativan and morphine for agitation. Geodon if the patient becomes violent. This is not his baseline. Normally a very pleasant and gentle person. (2) HTN (hypertension) Current Visit: No Status: Acute Plan: will restart his home amlodipine Qualifiers: Hypertension type: essential hypertension Qualified Code(s): I10 - Essential (primary) hypertension (3) Hyperlipemia Current Visit: No Status: Acute Plan: hold the statin for now. We can restart after his mentation improves. He may have difficulty complying with medications. Qualifiers: Hyperlipidemia type: moderate mixed hyperlipidemia not requiring statin therapy Qualified Code(s): E78.2 - Mixed hyperlipidemia Discharge Plan: Home Plan to discharge in: Greater than 2 days - Code Status/Comfort Care Code Status Assessed: No Physician Review: Patient Assessed, Agree with Above Assessment and Plan Critical Care: No Time Spent Managing Pts Care (In Minutes): 20
[2020-11-14] MEDS: DIVALPROEX DR 500MG TAB PO SCH ×2 (08:26→21:10)
[2020-11-14] MEDS: METHYLPRED NA SUC 1,000 MG in NA CHLORIDE 0.9% 100 ML IV SCH (08:28)
[2020-11-14] MEDS ORDERED: D50W 25 GM/50 ML VIAL IV PRN (13:00)
[2020-11-14] MEDS: ENOXAPARIN 40 MG/0.4 ML SQ SCH (16:22)
--- NOTE | 2020-11-14 21:52 | CON ---
Reason For Consultation: Consultation called because of more confusion. History Of Present Illness: Mr. 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 He had significant confusion, disor ientation, poor memory and judgment, and aggressive behavior. He was treated with steroids along wit h acyclovir for 2 weeks and they improved his mentation significantly. However, his notes that he began worsening cognitive functioning about a week ago with more headaches, confusion, and was bro ught [facility] to the [facility] and was admitted on November 12, 2020. He was put on Keppra for se izures. However, given the possibility of Keppra worsening behaviors, that was switched over to Depa kote and is on 500 mg twice daily. Also, he has been receiving acyclovir again along with methylpred nisolone 1 g daily. His notes he is somewhat better today. Past Medical History: As indicated in addition to diabetes mellitus type 2, hypertension, dyslipidem ia, colon polyps, anxiety. Past Surgical History: Appendectomy. Allergies: IODINE. Medications: At home, aspirin 81 mg daily, Norvasc 5 mg daily, Lipitor 40 mg at bedtime, folate 1 mg daily, thiamine 100 mg daily, carvedilol 12.5 mg once daily. He was on prednisone 5 mg daily and ac yclovir. Family History: Cancer of the colon in his father, hypertension in mother. Social History: The patient smokes daily and use caffeinated beverages. No alcohol. Review of Systems: Aside from mentioned, he had no recent fevers, chills, nausea, vomiting, myalgias, arthralgias, rash. Physical Examination: Vital Signs: Blood pressure 159/96, pulse of 78, respiratory rate 15, temperature 98.5, oxygen satur ation 100%. General: Mr. Francis is resting in bed. He is in no acute distress. HEENT: He is normocephalic, atraumatic. Sclerae anicteric. Oropharynx is moist and pink. Neck: Supple. Chest: Clear. Heart: Regular. Extremities: No edema or cyanosis. Neurologic: He is alert and oriented to person. He is slow to respond, but has no focal cranial ner ve deficits. No focal motor, sensory, coordination, balance, or gait deficits. Reflexes are symmetr ic. Laboratory Studies: Complete blood count with differential shows slightly elevated white blood cell count, likely related to steroids; hemoglobin and hematocrit are stable. INR 1.12. Chemistries are normal except blood glucose ranged from 150 to 211, calcium 9.7. COVID-19 test is negative. He has repeat head CT scan done on the and shows no acute processes. 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 Plan: 1.Depakote 500 mg twice daily. 2.Continue 3 days of 1 g daily Solu-Medrol. 3.Continue acyclovir. 4.The patient will continue with aggressive management of hypertension, diabetes mellitus, and he shall be discharged home and follow up in clinic with Dr. Zaman 1 month later. ANIL/MIRYAM Voice ID: [id number] Report ID: [id number]
[2020-11-14] MEDS: WATER FOR INJ,STERILE 10 ML IM PRN (23:32)
[2020-11-15] MEDS: LORazepam 2 MG/ML VIAL IV PRN ×2 (00:47→22:06)
[2020-11-15] MEDS: NA CHLORIDE 0.9% IVPB SCH ×3 (00:52→22:17)
[2020-11-15] MEDS: ACYCLOVIR IVPB SCH ×3 (00:52→22:17)
[2020-11-15] MEDS: PANTOPRAZOLE 40MG TABLET PO SCH (06:30)
[2020-11-15] MEDS: INSULIN -REGULAR HUMAN 50 UNIT/0.5 ML ML SQ SCH ×4 (07:30→22:03)
[2020-11-15] MEDS: DIVALPROEX DR 500MG TAB PO SCH ×2 (08:30→22:03)
--- NOTE | 2020-11-15 09:38 | P.PN ---
Subjective Date of Service: 11/15/20 Primary Care Provider: Maty Chief Complaint: altered mental status Subjective: Improving Review of Systems 10-point ROS is otherwise unremarkable General: Weakness Neurological: Confusion Physical Examination - Vital Signs Temperature: 97.5 F Blood Pressure: 142/77 Pulse: 61 Respirations: 18 Pulse Ox (%): 97 - Physical Exam General: In no apparent distress, Oriented x2 HEENT: Atraumatic, PERRLA, EOMI Neck: Supple, JVD not distended Respiratory: Clear to auscultation bilaterally, Normal air movement Cardiovascular: Regular rate/rhythm, Normal S1 S2 Gastrointestinal: Normal bowel sounds, No tenderness Musculoskeletal: No tenderness Integumentary: No rashes Neurological: Normal speech, Normal tone, Normal affect Lymphatics: No axilla or inguinal lymphadenopathy Assessment & Plan - Problems (Diagnosis) (1) Encephalitis Current Visit: No Status: Acute Plan: Sunil being seen by Dr. Soria. Is on steroids. Switched his keppra to dilaudid. Will continue to monitor the patient. 11/14 Continue acyclovir. Ativan and morphine for agitation. Geodon if the patient becomes violent. This is not his baseline. Normally a very pleasant and gentle person. (2) HTN (hypertension) Current Visit: No Status: Acute Plan: will restart his home amlodipine Qualifiers: Hypertension type: essential hypertension Qualified Code(s): I10 - Essential (primary) hypertension (3) Hyperlipemia Current Visit: No Status: Acute Plan: hold the statin for now. We can restart after his mentation improves. He may have difficulty complying with medications. Qualifiers: Hyperlipidemia type: moderate mixed hyperlipidemia not requiring statin therapy Qualified Code(s): E78.2 - Mixed hyperlipidemia Discharge Plan: Home Plan to discharge in: Greater than 2 days - Code Status/Comfort Care Code Status Assessed: No Physician Review: Patient Assessed, Agree with Above Assessment and Plan Critical Care: No Time Spent Managing Pts Care (In Minutes): 20
[2020-11-15] MEDS: METHYLPRED NA SUC 1,000 MG in NA CHLORIDE 0.9% 100 ML IV SCH ×2 (10:36→15:00)
[2020-11-15] MEDS: ENOXAPARIN 40 MG/0.4 ML SQ SCH (16:56)
[2020-11-15] MEDS: AMLODIPINE 5 MG TAB PO SCH (19:00)
[2020-11-15] MEDS: ATORVASTATIN 20 MG TAB PO SCH (22:03)
[2020-11-16] MEDS: ACYCLOVIR IVPB SCH ×3 (05:12→22:00)
[2020-11-16] MEDS: NA CHLORIDE 0.9% IVPB SCH ×3 (05:12→22:00)
[2020-11-16] MEDS: PANTOPRAZOLE 40MG TABLET PO SCH (05:41)
[2020-11-16] MEDS: INSULIN -REGULAR HUMAN 50 UNIT/0.5 ML ML SQ SCH ×4 (08:09→20:35)
[2020-11-16] MEDS: AMLODIPINE 5 MG TAB PO SCH (08:10)
[2020-11-16] MEDS: DIVALPROEX DR 500MG TAB PO SCH ×2 (08:11→20:35)
[2020-11-16] MEDS: FOLIC ACID 1 MG TABLET PO SCH (08:11)
[2020-11-16] MEDS: ATORVASTATIN 20 MG TAB PO SCH (08:11)
[2020-11-16] MEDS: THIAMINE HCL 100 MG TABLET PO SCH (08:11)
[2020-11-16] MEDS: METHYLPRED NA SUC 1,000 MG in NA CHLORIDE 0.9% 100 ML IV SCH (13:06)
--- NOTE | 2020-11-16 14:17 | P.PN ---
Subjective Date of Service: 11/16/20 Primary Care Provider: Maty Chief Complaint: altered mental status Subjective: No new changes Review of Systems 10-point ROS is otherwise unremarkable Neurological: Confusion (patinet complaints of some auditory hallucinations. ) Physical Examination - Vital Signs Temperature: 98.1 F Blood Pressure: 164/78 Pulse: 59 Respirations: 18 Pulse Ox (%): 97 - Physical Exam General: Alert, In no apparent distress HEENT: Atraumatic, PERRLA, EOMI Neck: Supple, JVD not distended Respiratory: Clear to auscultation bilaterally, Normal air movement Cardiovascular: Regular rate/rhythm, Normal S1 S2 Gastrointestinal: Normal bowel sounds, No tenderness Musculoskeletal: No tenderness Integumentary: No rashes Neurological: Normal speech, Normal tone, Normal affect Lymphatics: No axilla or inguinal lymphadenopathy Assessment & Plan - Problems (Diagnosis) (1) Encephalitis Current Visit: No Status: Acute Plan: Sunil being seen by Dr. Soria. Is on steroids. Switched his keppra to dilaudid. Will continue to monitor the patient. 11/15. no iv acycylovir. will switch to oral dosage. Will try to improve his sleep. Hopefully that will help the agitation. Seems to get more confused when he gets tired. (2) HTN (hypertension) Current Visit: No Status: Acute Plan: will restart his home amlodipine Qualifiers: Hypertension type: essential hypertension Qualified Code(s): I10 - Essential (primary) hypertension (3) Hyperlipemia Current Visit: No Status: Acute Plan: hold the statin for now. We can restart after his mentation improves. He may have difficulty complying with medications. Qualifiers: Hyperlipidemia type: moderate mixed hyperlipidemia not requiring statin therapy Qualified Code(s): E78.2 - Mixed hyperlipidemia Discharge Plan: Home Plan to discharge in: Greater than 2 days - Code Status/Comfort Care Code Status Assessed: No Physician Review: Patient Assessed, Agree with Above Assessment and Plan Critical Care: No Time Spent Managing Pts Care (In Minutes): 25
[2020-11-16] MEDS: ENOXAPARIN 40 MG/0.4 ML SQ SCH (17:05)
[2020-11-16] MEDS: ACYCLOVIR 400 MG TABLET PO SCH (20:34)
[2020-11-16] MEDS: ZOLPIDEM TARTRATE 10 MG TABLET PO PRN (20:36)
[2020-11-17] MEDS: PANTOPRAZOLE 40MG TABLET PO SCH (05:04)
[2020-11-17] MEDS: ACYCLOVIR IVPB SCH ×2 (05:08→18:34)
[2020-11-17] MEDS: NA CHLORIDE 0.9% IVPB SCH ×2 (05:08→18:34)
[2020-11-17] MEDS: INSULIN -REGULAR HUMAN 50 UNIT/0.5 ML ML SQ SCH ×4 (07:30→20:06)
[2020-11-17] MEDS: FOLIC ACID 1 MG TABLET PO SCH (10:06)
[2020-11-17] MEDS: DIVALPROEX DR 500MG TAB PO SCH ×2 (10:07→20:05)
[2020-11-17] MEDS: THIAMINE HCL 100 MG TABLET PO SCH (10:07)
[2020-11-17] MEDS: AMLODIPINE 5 MG TAB PO SCH (10:07)
[2020-11-17] MEDS: ACYCLOVIR 400 MG TABLET PO SCH (10:08)
[2020-11-17] MEDS: METHYLPRED NA SUC 1,000 MG in NA CHLORIDE 0.9% 100 ML IV SCH (10:45)
[2020-11-17] MEDS ORDERED: GLUCAGON 1 MG/VIAL IM PRN (15:30)
--- NOTE | 2020-11-17 15:36 | P.PN ---
Subjective Date of Service: 11/17/20 Primary Care Provider: Maty Chief Complaint: altered mental status Subjective: No new changes, Improving (patient is improving mentally) Review of Systems 10-point ROS is otherwise unremarkable Neurological: Confusion Physical Examination - Vital Signs Temperature: 98.3 F Blood Pressure: 170/103 Pulse: 61 Respirations: 16 Pulse Ox (%): 100 - Physical Exam General: Alert, In no apparent distress HEENT: Atraumatic, PERRLA, EOMI Neck: Supple, JVD not distended Respiratory: Clear to auscultation bilaterally, Normal air movement Cardiovascular: Regular rate/rhythm, Normal S1 S2 Gastrointestinal: Normal bowel sounds, No tenderness Musculoskeletal: No tenderness Integumentary: No rashes Neurological: Normal speech, Normal tone, Normal affect Lymphatics: No axilla or inguinal lymphadenopathy Assessment & Plan - Problems (Diagnosis) (1) Encephalitis Current Visit: No Status: Acute Plan: Sunil being seen by Dr. Soria. Is on steroids. Switched his keppra to dilaudid. Will continue to monitor the patient. 11/[address] Soria. The patient in improving. However having talked to his . He is not at his baseline. Was not at his baseline in the interveining month between his first and second hospitalization. Discussed with his this may be autoimmune. He may have a relapsing and remitting course. Will start him on n antipsychotic for the confusion and hallucinations. Will consult neonatal social worker. He may be on disability and need medicare/medicaid from this point forward. (2) HTN (hypertension) Current Visit: No Status: Acute Plan: will restart his home amlodipine Qualifiers: Hypertension type: essential hypertension Qualified Code(s): I10 - Essential (primary) hypertension (3) Hyperlipemia Current Visit: No Status: Acute Plan: hold the statin for now. We can restart after his mentation improves. He may have difficulty complying with medications. Qualifiers: Hyperlipidemia type: moderate mixed hyperlipidemia not requiring statin therapy Qualified Code(s): E78.2 - Mixed hyperlipidemia (4) Prediabetes Current Visit: No Status: Acute Plan: will check his sugar and start him on a sliding scale. Discharge Plan: Home Plan to discharge in: Greater than 2 days - Code Status/Comfort Care Code Status Assessed: No Physician Review: Patient Assessed, Agree with Above Assessment and Plan Critical Care: No Time Spent Managing Pts Care (In Minutes): 30
[2020-11-17] MEDS ORDERED: D50W 25 GM/50 ML VIAL IV PRN (16:00)
[2020-11-17] MEDS: ENOXAPARIN 40 MG/0.4 ML SQ SCH (18:24)
[2020-11-17] MEDS: ATORVASTATIN 40 MG TAB PO SCH (20:05)
[2020-11-17] MEDS: ZIPRASIDONE 20 MG CAP PO SCH (20:05)
[2020-11-18] MEDS: NA CHLORIDE 0.9% IVPB SCH ×3 (01:26→18:14)
[2020-11-18] MEDS: ACYCLOVIR IVPB SCH ×3 (01:26→18:14)
[2020-11-18] MEDS: ZOLPIDEM TARTRATE 10 MG TABLET PO PRN ×2 (01:27→22:39)
[2020-11-18] MEDS: PANTOPRAZOLE 40MG TABLET PO SCH (06:30)
[2020-11-18] MEDS: INSULIN -REGULAR HUMAN 50 UNIT/0.5 ML ML SQ SCH ×4 (07:30→21:00)
--- NOTE | 2020-11-18 07:47 | P.PN ---
Subjective Date of Service: 11/18/20 Primary Care Provider: Maty Chief Complaint: altered mental status Subjective: No new changes Review of Systems 10-point ROS is otherwise unremarkable Neurological: Confusion Physical Examination - Vital Signs Temperature: 98.1 F Blood Pressure: 160/70 Pulse: 70 Respirations: 16 Pulse Ox (%): 96 - Physical Exam General: Alert, In no apparent distress HEENT: Atraumatic, PERRLA, EOMI Neck: Supple, JVD not distended Respiratory: Clear to auscultation bilaterally, Normal air movement Cardiovascular: Regular rate/rhythm, Normal S1 S2 Gastrointestinal: Normal bowel sounds, No tenderness Musculoskeletal: No tenderness Integumentary: No rashes Neurological: Normal speech, Normal tone, Normal affect Lymphatics: No axilla or inguinal lymphadenopathy Assessment & Plan - Problems (Diagnosis) (1) Encephalitis Current Visit: No Status: Acute Plan: Sunil being seen by Dr. Soria. Is on steroids. Switched his keppra to dilaudid. Will continue to monitor the patient. 11/18 Will discuss with social studies teacher. Patient may walk around outside. he is having anxiety. His is here and is willing to walk the patient. Will be able to discharge him on geodon, decadrone and acyclovir. However as this may be a pe rmanent disability, would need assistance. hospitality workers was consulted yesterday to work on a medicare/medicaid [place] and any other paper work we can find for the patient (2) HTN (hypertension) Current Visit: No Status: Acute Plan: will restart his home amlodipine Qualifiers: Hypertension type: essential hypertension Qualified Code(s): I10 - Essential (primary) hypertension (3) Hyperlipemia Current Visit: No Status: Acute Plan: hold the statin for now. We can restart after his mentation improves. He may have difficulty complying with medications. Qualifiers: Hyperlipidemia type: moderate mixed hyperlipidemia not requiring statin therapy Qualified Code(s): E78.2 - Mixed hyperlipidemia (4) Prediabetes Current Visit: No Status: Acute Plan: will check his sugar and start him on a sliding scale. Discharge Plan: Home - Code Status/Comfort Care Code Status Assessed: No Physician Review: Patient Assessed, Agree with Above Assessment and Plan Critical Care: No Time Spent Managing Pts Care (In Minutes): 20
[2020-11-18 08:53] LABS: ALT/SGPT 16 U/L (12-78); Albumin 3.6 g/dL (3.4-5.0); Alkaline Phosphatase 87 U/L (45-117); BUN Blood Urea Nitrogen 14 mg/dL (7-18); Bicarbonate 30 mmol/L (21-32); Bilirubin Total 0.4 mg/dL (0.2-1.0); Glucose Level 132 mg/dL (74-106); Potassium 3.9 mmol/L (3.5-5.1); Sodium Level 142 mmol/L (136-145)
[2020-11-18 08:57] LABS: AST/SGOT < 3 U/L (15-37)
[2020-11-18 08:58] LABS: Absolute Lymphocytes (CBC) 2.6 K/uL (0.7-4.9); Basophils % 0.7 % (0-1.3); Lymphocytes % 16.2 % (15.3-44.8); MPV 7.7 fL (7.6-11.3)
[2020-11-18] MEDS: FOLIC ACID 1 MG TABLET PO SCH (09:36)
[2020-11-18] MEDS: ZIPRASIDONE 20 MG CAP PO SCH ×2 (09:36→20:13)
[2020-11-18] MEDS: AMLODIPINE 5 MG TAB PO SCH (09:36)
[2020-11-18] MEDS: DIVALPROEX DR 500MG TAB PO SCH ×2 (09:36→20:13)
[2020-11-18] MEDS: THIAMINE HCL 100 MG TABLET PO SCH (09:36)
[2020-11-18 13:06] LABS: Anisocytosis 1+; Blood Morphology Comment NOTED (NOT SEEN); Platelet Estimate INCR; Poikilocytosis SLIGHT
[2020-11-18] MEDS: ENOXAPARIN 40 MG/0.4 ML SQ SCH (16:21)
[2020-11-18] MEDS: ATORVASTATIN 40 MG TAB PO SCH (20:13)
[2020-11-19] MEDS: ACYCLOVIR IVPB SCH ×2 (02:02→10:15)
[2020-11-19] MEDS: NA CHLORIDE 0.9% IVPB SCH ×2 (02:02→10:15)
[2020-11-19] MEDS: PANTOPRAZOLE 40MG TABLET PO SCH (06:30)
[2020-11-19] MEDS: INSULIN -REGULAR HUMAN 50 UNIT/0.5 ML ML SQ SCH (07:30)
[2020-11-19] MEDS: THIAMINE HCL 100 MG TABLET PO SCH (09:00)
[2020-11-19 09:05] VITALS: BP 165/89; TEMP 97.5
--- NOTE | 2020-11-19 09:34 | P.DS ---
Admission Date: 11/12/20 Discharge Date: 11/19/20 Primary Care Provider: Maty Disposition: ROUTINE DISCHARGE Discharge Condition: GOOD Reason for Admission: altered mental status - Problems (1) Encephalitis Current Visit: No Status: Acute (2) HTN (hypertension) Current Visit: No Status: Acute Qualifiers: Hypertension type: essential hypertension Qualified Code(s): I10 - Essential (primary) hypertension (3) Hyperlipemia Current Visit: No Status: Acute Qualifiers: Hyperlipidemia type: moderate mixed hyperlipidemia not requiring statin therapy Qualified Code(s): E78.2 - Mixed hyperlipidemia (4) Prediabetes Current Visit: No Status: Acute Brief History of Present Illness: 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 He has a previous history of htn and encephalopathy a month ago. 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 The patient was discharged on keppra, prednisone and 2 weeks of acyclovir. Yesterday he started having headaches and confusion. He is not at the baseline mentation that he was at when I last in the office. He has some tremors in his hands. The patient is not able to give a good history at this time. Hospital Course: Patient was admitted for worsening confusion. He was started on acyclovir and solumedrol. This improved his mental function. His sugar wasn't increased. He was switched form keppra to depakote(not dilaudid as stated in the previous ) The patient was started on geodon for the confusion and the hallucinated The patient has not been ever back to his baseline. Discussed the patient with Dr. Soria. Will keep him on a low dose of acyclovir. will not keep him on geodon as it would increase the confusion. 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 Vital Signs/Physical Exam: Temp Pulse Resp BP Pulse Ox 97.5 F 74 16 165/89 H 99 11/19/20 08:00 11/19/20 08:00 11/19/20 08:00 11/19/20 08:00 11/19/20 08:00 General: Alert, In no apparent distress HEENT: Atraumatic, PERRLA, EOMI Neck: Supple, JVD not distended Respiratory: Clear to auscultation bilaterally, Normal air movement Cardiovascular: Regular rate/rhythm, Normal S1 S2 Gastrointestinal: Normal bowel sounds, No tenderness Musculoskeletal: No tenderness Integumentary: No rashes Neurological: Normal speech, Normal tone, Normal affect Lymphatics: No axilla or inguinal lymphadenopathy Laboratory Data at Discharge: WBC 15.90 K/uL (4.3-10.9) H D 11/18/20 08:12 Hgb 12.5 g/dL (13.6-17.9) L 11/18/20 08:12 Hct 40.0 % (39.6-49.0) 11/18/20 08:12 Plt Count 468 K/uL (152-406) H 11/18/20 08:12 PT 12.9 SECONDS (9.5-12.5) H 11/12/20 16:55 INR 1.12 11/12/20 16:55 APTT 20.6 SECONDS (24.3-36.9) L 11/12/20 16:55 Sodium 142 mmol/L (136-145) 11/18/20 08:12 Potassium 3.9 mmol/L (3.5-5.1) 11/18/20 08:12 BUN 14 mg/dL (7-18) 11/18/20 08:12 Creatinine 0.84 mg/dL (0.55-1.3) 11/18/20 08:12 Glucose 132 mg/dL (74-106) H 11/18/20 08:12 Magnesium 1.9 mg/dL (1.8-2.4) 11/12/20 16:55 Total Bilirubin 0.4 mg/dL (0.2-1.0) 11/18/20 08:12 AST < 3 U/L (15-37) L 11/18/20 08:12 ALT 16 U/L (12-78) 11/18/20 08:12 Alkaline Phosphatase 87 U/L (45-117) 11/18/20 08:12 Home Medications: Folic Acid 1 mg PO DAILY #90 tablet 09/28/20 Thiamine HCl [Vitamin B-1*] 100 mg PO DAILY #90 tablet 09/28/20 levETIRAcetam [Keppra*] 500 mg PO BID #60 tab 09/28/20 Amlodipine Besylate [Norvasc] 10 mg PO DAILY 11/13/20 Atorvastatin Calcium [Lipitor] 40 mg PO BEDTIME 11/13/20 Carbamazepine [Carbamazepine ER] 200 mg PO DAILY 11/13/20 carvediloL [Coreg*] 25 mg PO BID 11/13/20 Divalproex Sodium [Depakote ER] 500 mg PO BID 90 Days #180 tab.er.24h 11/19/20 Metformin ER [Glucophage ER*] 500 mg PO DAILY 90 Days #90 tab 11/19/20 Ziprasidone HCl [Geodon] 20 mg PO DAILY 90 Days #90 capsule 11/19/20 New Medications: Divalproex Sodium [Depakote ER] 500 mg PO BID 90 Days #180 tab.er.24h Ziprasidone HCl [Geodon] 20 mg PO DAILY 90 Days #90 capsule Metformin ER [Glucophage ER*] 500 mg PO DAILY 90 Days #90 tab Followup: Keny Rutledge MD [Primary Care Provider] - 1-2 Weeks Shmuel Soria MD [ASSOCIATE-ACTIVE - CAN ADMIT] - 1 Week Physician Review: Patient Assessed, Agree with Above Assessment and Plan Time spent managing pt's care (in minutes): 30
[2020-11-19] MEDS: FOLIC ACID 1 MG TABLET PO SCH (10:15)
[2020-11-19] MEDS: ZIPRASIDONE 20 MG CAP PO SCH (10:16)
[2020-11-19] MEDS: AMLODIPINE 5 MG TAB PO SCH (10:17)
[2020-11-19] MEDS: DIVALPROEX DR 500MG TAB PO SCH (10:17)
[2020-11-19 12:32] VITALS: O2SAT 99
== END 2020-11-19 12:10 | disposition home or self-care (01) | DRG 98 ==
LOC: ER 16:13 → ERHOLD 19:35 → 2ND 11-13 13:31
PROVIDERS: ADMIT Internal Medicine; ATTEND Internal Medicine
DX: B00.4 Herpesviral encephalitis (principal); R44.0 Auditory hallucinations; G93.40 Encephalopathy, unspecified; E11.9 Type 2 diabetes mellitus without complications; F17.210 Nicotine dependence, cigarettes, uncomplicated; I10 Essential (primary) hypertension; F41.9 Anxiety disorder, unspecified; E78.2 Mixed hyperlipidemia; R25.1 Tremor, unspecified; Z88.8 Allergy status to other drugs, medicaments and biological substances; Z79.899 Other long term (current) drug therapy; Z79.84 Long term (current) use of oral hypoglycemic drugs; Z90.49 Acquired absence of other specified parts of digestive tract; Z79.82 Long term (current) use of aspirin; Z79.52 Long term (current) use of systemic steroids; Z20.822 Contact with and (suspected) exposure to COVID-19
CPT/HCPCS: 36415; 70450; 71045; 80048; 80053; 80076; 82947; 83735; 84484; 85025; 85610; 85730; 93005; 96365; 96375; 97116; 97162; 97530; 99285; J0133; J0744; J1650; J2270; J2930; J3486; U0003

== ENCOUNTER → 2023-08-22 | Emergency (ER) | payer OTHER ==
[~2023-08-22] MED LIST: KETOROLAC 30 MG/ML INJ ONE; POTASSIUM 25 MEQ EFFERV TAB ONE; dexAMETHasone 10 MG/ML VIAL ONE
--- OUTSIDE RECORDS SUMMARY | 2023-08-22 17:28 | XMS REPORT | Continuity of Care Document ---
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 MULTIVITS-M INERALS/FA/ LYCOPENE (ONE-A-DAY MEN'S MULTIVITAMI N ORAL) 2022-07 14:44: 15 Yes Take by mouth. [facility] POTASSIUM-9 9 ORAL 2022-07 14:44: 15 Yes 99mg Take 99 mg by mouth daily. [facility] omega-3s-dh a-epa-fish oil-D3 (FISH OIL-VIT D3) 360 mg-1,200 mg -1,000 unit Cap 2022-07 14:44: 15 Yes Take by mouth. [facility] MULTIVITS-M INERALS/FA/ LYCOPENE (ONE-A-DAY MEN'S MULTIVITAMI N ORAL) 2022-07 14:44: 15 Yes Take by mouth. [facility] POTASSIUM-9 9 ORAL 2022-07 14:44: 15 Yes 99mg Take 99 mg by mouth daily. [facility] omega-3s-dh a-epa-fish oil-D3 (FISH OIL-VIT D3) 360 mg-1,200 mg -1,000 unit Cap 2022-07 14:44: 15 Yes Take by mouth. [facility] MULTIVITS-M INERALS/FA/ LYCOPENE (ONE-A-DAY MEN'S MULTIVITAMI N ORAL) 2022-07 14:44: 15 Yes Take by mouth. [facility] POTASSIUM-9 9 ORAL 2022-07 14:44: 15 Yes 99mg Take 99 mg by mouth daily. [facility] omega-3s-dh a-epa-fish oil-D3 (FISH OIL-VIT D3) 360 mg-1,200 mg -1,000 unit Cap 2022-07 14:44: 15 Yes Take by mouth. [facility] MULTIVITS-M INERALS/FA/ LYCOPENE (ONE-A-DAY MEN'S MULTIVITAMI N ORAL) 2022-07 14:44: 15 Yes Take by mouth. [facility] POTASSIUM-9 9 ORAL 2022-07 14:44: 15 Yes 99mg Take 99 mg by mouth daily. [facility] omega-3s-dh a-epa-fish oil-D3 (FISH OIL-VIT D3) 360 mg-1,200 mg -1,000 unit Cap 2022-07 14:44: 15 Yes Take by mouth. [facility] MULTIVITS-M INERALS/FA/ LYCOPENE (ONE-A-DAY MEN'S MULTIVITAMI N ORAL) 2022-07 14:44: 15 Yes Take by mouth. [facility] POTASSIUM-9 9 ORAL 2022-07 14:44: 15 Yes 99mg Take 99 mg by mouth daily. [facility] omega-3s-dh a-epa-fish oil-D3 (FISH OIL-VIT D3) 360 mg-1,200 mg -1,000 unit Cap 2022-07 14:44: 15 Yes Take by mouth. [facility] MULTIVITS-M INERALS/FA/ LYCOPENE (ONE-A-DAY MEN'S MULTIVITAMI N ORAL) 2022-07 14:44: 15 Yes Take by mouth. [facility] POTASSIUM-9 9 ORAL 2022-07 14:44: 15 Yes 99mg Take 99 mg by mouth daily. [facility] omega-3s-dh a-epa-fish oil-D3 (FISH OIL-VIT D3) 360 mg-1,200 mg -1,000 unit Cap 2022-07 14:44: 15 Yes Take by mouth. [facility] MULTIVITS-M INERALS/FA/ LYCOPENE (ONE-A-DAY MEN'S MULTIVITAMI N ORAL) 2022-07 14:44: 15 Yes Take by mouth. [facility] POTASSIUM-9 9 ORAL 2022-07 14:44: 15 Yes 99mg Take 99 mg by mouth daily. [facility] omega-3s-dh a-epa-fish oil-D3 (FISH OIL-VIT D3) 360 mg-1,200 mg -1,000 unit Cap 2022-07 14:44: 15 Yes Take by mouth. [facility] MULTIVITS-M INERALS/FA/ LYCOPENE (ONE-A-DAY MEN'S MULTIVITAMI N ORAL) 2022-07 14:44: 15 Yes Take by mouth. [facility] POTASSIUM-9 9 ORAL 2022-07 14:44: 15 Yes 99mg Take 99 mg by mouth daily. [facility] omega-3s-dh a-epa-fish oil-D3 (FISH OIL-VIT D3) 360 mg-1,200 mg -1,000 unit Cap 2022-07 14:44: 15 Yes Take by mouth. [facility] MULTIVITS-M INERALS/FA/ LYCOPENE (ONE-A-DAY MEN'S MULTIVITAMI N ORAL) 2022-07 14:44: 15 Yes Take by mouth. [facility] POTASSIUM-9 9 ORAL 2022-07 14:44: 15 Yes 99mg Take 99 mg by mouth daily. [facility] omega-3s-dh a-epa-fish oil-D3 (FISH OIL-VIT D3) 360 mg-1,200 mg -1,000 unit Cap 2022-07 14:44: 15 Yes Take by mouth. [facility] MULTIVITS-M INERALS/FA/ LYCOPENE (ONE-A-DAY MEN'S MULTIVITAMI N ORAL) 2022-07 14:44: 15 Yes Take by mouth. [facility] POTASSIUM-9 9 ORAL 2022-07 14:44: 15 Yes 99mg Take 99 mg by mouth daily. [facility] omega-3s-dh a-epa-fish oil-D3 (FISH OIL-VIT D3) 360 mg-1,200 mg -1,000 unit Cap 2022-07 14:44: 15 Yes Take by mouth. [facility] MULTIVITS-M INERALS/FA/ LYCOPENE (ONE-A-DAY MEN'S MULTIVITAMI N ORAL) 2022-07 14:44: 15 Yes Take by mouth. [facility] POTASSIUM-9 9 ORAL 2022-07 14:44: 15 Yes 99mg Take 99 mg by mouth daily. [facility] omega-3s-dh a-epa-fish oil-D3 (FISH OIL-VIT D3) 360 mg-1,200 mg -1,000 unit Cap 2022-07 14:44: 15 Yes Take by mouth. [facility] MULTIVITS-M INERALS/FA/ LYCOPENE (ONE-A-DAY MEN'S MULTIVITAMI N ORAL) 2022-07 14:44: 15 Yes Take by mouth. [facility] POTASSIUM-9 9 ORAL 2022-07 14:44: 15 Yes 99mg Take 99 mg by mouth daily. [facility] glyBURIDE 5 mg tablet 2022- 0-25 00:00: 00 Yes [id number] 5mg Take 1 tablet by mouth daily with breakfast. [facility] glyBURIDE 5 mg tablet 2022- 0-25 00:00: 00 Yes [id number] 5mg Take 1 tablet by mouth daily with breakfast. [facility] glyBURIDE 5 mg tablet 2022- 0-25 00:00: 00 Yes [id number] 5mg Take 1 tablet by mouth daily with breakfast. [facility] glyBURIDE 5 mg tablet 2022- 0-25 00:00: 00 Yes [id number] 5mg Take 1 tablet by mouth daily with breakfast. [facility] glyBURIDE 5 mg tablet 2022- 0-25 00:00: 00 Yes [id number] 5mg Take 1 tablet by mouth daily with breakfast. [facility] glyBURIDE 5 mg tablet 2022- 0-25 00:00: 00 Yes [id number] 5mg Take 1 tablet by mouth daily with breakfast. [facility] glyBURIDE 5 mg tablet 2022- 0-25 00:00: 00 Yes [id number] 5mg Take 1 tablet by mouth daily with breakfast. [facility] glyBURIDE 5 mg tablet 2022- 0-25 00:00: 00 Yes [id number] 5mg Take 1 tablet by mouth daily with breakfast. [facility] glyBURIDE 5 mg tablet 2022- 0-25 00:00: 00 Yes [id number] 5mg Take 1 tablet by mouth daily with breakfast. [facility] glyBURIDE 5 mg tablet 2022- 0-25 00:00: 00 Yes [id number] 5mg Take 1 tablet by mouth daily with breakfast. [facility] glyBURIDE 5 mg tablet 2022- 0-25 00:00: 00 Yes [id number] 5mg Take 1 tablet by mouth daily with breakfast. [facility] glyBURIDE 5 mg tablet 2022- 0-25 00:00: 00 Yes [id number] 5mg Take 1 tablet by mouth daily with breakfast. [facility] glyBURIDE 5 mg tablet 2022-07 0 00:00: 00 Yes [id number] 5mg Take 1 tablet by mouth daily with breakfast. [facility] glyBURIDE 5 mg tablet 2022-07 0 00:00: 00 Yes [id number] 5mg Take 1 tablet by mouth daily with breakfast. [facility] glyBURIDE 5 mg tablet 2022-07 0 00:00: 00 Yes [id number] 5mg Take 1 tablet by mouth daily with breakfast. [facility] glyBURIDE 5 mg tablet 2022-07 0 00:00: 00 Yes [id number] 5mg Take 1 tablet by mouth daily with breakfast. [facility] glyBURIDE 5 mg tablet 2022-07 0 00:00: 00 Yes [id number] 5mg Take 1 tablet by mouth daily with breakfast. [facility] glyBURIDE 5 mg tablet 2022-07 0 00:00: 00 Yes [id number] 5mg Take 1 tablet by mouth daily with breakfast. [facility] atorvastati n 20 mg tablet 2022-07 0 00:00: 00 Yes [id number] 20mg Take 1 tablet by mouth at bedtime. [facility] atorvastati n 20 mg tablet 2022-07 0 00:00: 00 Yes [id number] 20mg Take 1 tablet by mouth at bedtime. [facility] atorvastati n 20 mg tablet 2022-07 0 00:00: 00 Yes [id number] 20mg Take 1 tablet by mouth at bedtime. [facility] atorvastati n 20 mg tablet 2022-07 0 00:00: 00 Yes [id number] 20mg Take 1 tablet by mouth at bedtime. [facility] atorvastati n 20 mg tablet 2022-07 0 00:00: 00 Yes [id number] 20mg Take 1 tablet by mouth at bedtime. [facility] atorvastati n 20 mg tablet 2022-07 0 00:00: 00 Yes [id number] 20mg Take 1 tablet by mouth at bedtime. [facility] atorvastati n 20 mg tablet 2022-07 0 00:00: 00 Yes [id number] 20mg Take 1 tablet by mouth at bedtime. [facility] atorvastati n 20 mg tablet 2022-07 0 00:00: 00 Yes [id number] 20mg Take 1 tablet by mouth at bedtime. [facility] atorvastati n 20 mg tablet 2022-07 0 00:00: 00 Yes [id number] 20mg Take 1 tablet by mouth at bedtime. [facility] atorvastati n 20 mg tablet 2022-07 0 00:00: 00 Yes [id number] 20mg Take 1 tablet by mouth at bedtime. [facility] atorvastati n 20 mg tablet 2022-07 0 00:00: 00 Yes [id number] 20mg Take 1 tablet by mouth at bedtime. [facility] atorvastati n 20 mg tablet 2022-07 0 00:00: 00 Yes [id number] 20mg Take 1 tablet by mouth at bedtime. [facility] atorvastati n 20 mg tablet 2022-07 0 00:00: 00 Yes [id number] 20mg Take 1 tablet by mouth at bedtime. [facility] hydrALAZINE 25 mg tablet 04-19 00:00: 00 Yes [id number] 25mg Take 1 tablet by mouth every 6 (six) hours. [facility] hydrALAZINE 25 mg tablet 2022-0 04-19 00:00: 00 Yes [id number] 25mg Take 1 tablet by mouth every 6 (six) hours. [facility] hydrALAZINE 25 mg tablet 0 04-19 00:00: 00 Yes [id number] 25mg Take 1 tablet by mouth every 6 (six) hours. [facility] hydrALAZINE 25 mg tablet 2022-0 04-19 00:00: 00 Yes [id number] 25mg Take 1 tablet by mouth every 6 (six) hours. [facility] hydrALAZINE 25 mg tablet 2022-0 04-19 00:00: 00 Yes [id number] 25mg Take 1 tablet by mouth every 6 (six) hours. [facility] hydrALAZINE 25 mg tablet 2022-0 04-19 00:00: 00 Yes [id number] 25mg Take 1 tablet by mouth every 6 (six) hours. [facility] hydrALAZINE 25 mg tablet 2022-0 04-19 00:00: 00 Yes [id number] 25mg Take 1 tablet by mouth every 6 (six) hours. [facility] hydrALAZINE 25 mg tablet 2022-0 04-19 00:00: 00 Yes [id number] 25mg Take 1 tablet by mouth every 6 (six) hours. [facility] hydrALAZINE 25 mg tablet 0 04-19 00:00: 00 Yes [id number] 25mg Take 1 tablet by mouth every 6 (six) hours. [facility] hydrALAZINE 25 mg tablet 0 04-19 00:00: 00 Yes [id number] 25mg Take 1 tablet by mouth every 6 (six) hours. [facility] hydrALAZINE 25 mg tablet 0 04-19 00:00: 00 Yes [id number] 25mg Take 1 tablet by mouth every 6 (six) hours. [facility] hydrALAZINE 25 mg tablet 0 04-19 00:00: 00 Yes [id number] 25mg Take 1 tablet by mouth every 6 (six) hours. [facility] hydrALAZINE 25 mg tablet 2022-0 04-19 00:00: 00 Yes [id number] 25mg Take 1 tablet by mouth every 6 (six) hours. [facility] atorvastati n (LIPITOR) tablet 20 mg 03-22 02:00: 00 Yes 20mg 20 mg, Oral, QHS, First dose on Tue03/21/23 at 2100, Until Discontinu ed, Routine [facility] enoxaparin (LOVENOX) injection 40 mg 03-21 22:00: 00 Yes 40mg 40 mg, Subcutaneo us, DAILY, First dose on Tue03/21/23 at 1700, Until Discontinu ed, Routine [facility] omega-3s-dh a-epa-fish oil-D3 (FISH OIL-VIT D3) 360 mg-1,200 mg -1,000 unit Cap 03-21 17:40: 37 Yes Take by mouth. [facility] MULTIVITS-M INERALS/FA/ LYCOPENE (ONE-A-DAY MEN'S MULTIVITAMI N ORAL) 03-21 17:40: 37 Yes Take by mouth. [facility] POTASSIUM-9 9 ORAL 03-21 17:40: 37 Yes 99mg Take 99 mg by mouth daily. [facility] omega-3s-dh a-epa-fish oil-D3 (FISH OIL-VIT D3) 360 mg-1,200 mg -1,000 unit Cap 03-21 17:40: 37 Yes Take by mouth. [facility] MULTIVITS-M INERALS/FA/ LYCOPENE (ONE-A-DAY MEN'S MULTIVITAMI N ORAL) 03-21 17:40: 37 Yes Take by mouth. [facility] POTASSIUM-9 9 ORAL 03-21 17:40: 37 Yes 99mg Take 99 mg by mouth daily. [facility] omega-3s-dh a-epa-fish oil-D3 (FISH OIL-VIT D3) 360 mg-1,200 mg -1,000 unit Cap 03-21 17:40: 37 Yes Take by mouth. [facility] MULTIVITS-M INERALS/FA/ LYCOPENE (ONE-A-DAY MEN'S MULTIVITAMI N ORAL) 03-21 17:40: 37 Yes Take by mouth. [facility] POTASSIUM-9 9 ORAL 03-21 17:40: 37 Yes 99mg Take 99 mg by mouth daily. [facility] omega-3s-dh a-epa-fish oil-D3 (FISH OIL-VIT D3) 360 mg-1,200 mg -1,000 unit Cap 03-21 17:40: 37 Yes Take by mouth. [facility] MULTIVITS-M INERALS/FA/ LYCOPENE (ONE-A-DAY MEN'S MULTIVITAMI N ORAL) 03-21 17:40: 37 Yes Take by mouth. [facility] POTASSIUM-9 9 ORAL 03-21 17:40: 37 Yes 99mg Take 99 mg by mouth daily. [facility] omega-3s-dh a-epa-fish oil-D3 (FISH OIL-VIT D3) 360 mg-1,200 mg -1,000 unit Cap 03-21 17:40: 37 Yes Take by mouth. [facility] MULTIVITS-M INERALS/FA/ LYCOPENE (ONE-A-DAY MEN'S MULTIVITAMI N ORAL) 03-21 17:40: 37 Yes Take by mouth. [facility] POTASSIUM-9 9 ORAL 03-21 17:40: 37 Yes 99mg Take 99 mg by mouth daily. [facility] predniSONE (DELTASONE) tablet 10 mg 03-21 14:00: 00 Yes 10mg 10 mg, Oral, DAILY, First dose on Tue03/21/23 at 0900, Until Discontinu ed, Routine [facility] pantoprazol e (PROTONIX) EC tablet 40 mg 03-21 14:00: 00 Yes 40mg 40 mg, Oral, DAILY, First dose on Tue03/21/23 at 0900, Until Discontinu ed, Routine [facility] lisinopriL (PRINIVIL,Z ESTRIL) tablet 40 mg 03-21 14:00: 00 Yes 40mg 40 mg, Oral, DAILY, First dose on Tue03/21/23 at 0900, Until Discontinu ed, Routine [facility] amLODIPine (NORVASC) tablet 10 mg 03-21 14:00: 00 Yes 10mg 10 mg, Oral, DAILY, First dose on Tue03/21/23 at 0900, Until Discontinu ed, Routine [facility] risperiDONE (RISPERDAL) tablet 1 mg 03-21 13:00: 00 Yes 1mg 1 mg, Oral, BID, First dose on Tue03/21/23 at 0800, Until Discontinu ed, Routine [facility] gabapentin (NEURONTIN) capsule 300 mg 03-21 13:00: 00 Yes 300mg 300 mg, Oral, TID, First dose on Tue03/21/23 at 0800, Until Discontinu ed, Routine [facility] divalproex ER (DEPAKOTE ER) 24 hr tablet 2,000 mg 03-21 13:00: 00 Yes 2000mg 2,000 mg, Oral, BID, First dose on Tue03/21/23 at 0800, Until Discontinu ed, Routine [facility] carvediloL (COREG) tablet 25 mg 03-21 13:00: 00 Yes 25mg 25 mg, Oral, BID MEALS, First dose on Tue03/21/23 at 0800, Until Discontinu ed, Routine [facility] lacosamide (VIMPAT) tablet 50 mg 03-21 13:00: 00 Yes 50mg 50 mg, Oral, BID, First dose on Tue03/21/23 at 0800, Until Discontinu ed, Routine
membership assistant approving Restricted medication : DAVID [facility]AV[facility] hydrALAZINE (APRESOLINE ) tablet 25 mg 03-21 11:00: 00 Yes 25mg 25 mg, Oral, Q6H, First dose on Tue03/21/23 at 0600, Until Discontinu ed, Routine [facility] albuterol (VENTOLIN) inhaler 2 Puff 03-21 05:47: 08 Yes 2{puff} 2 Puff, Inhalation , Q6HPRN, Starting on Tue03/21/23 at 0047, Until Discontinu ed, Routine, Wheezing, Shortness of Breath, Bronchospa sm, Chest tightness [facility] acetaminoph en (TYLENOL) tablet 650 mg 03-21 05:38: 49 Yes 650mg 650 mg, Oral, PRN, Starting on Tue03/21/23 at 0038, Until Discontinu ed, Routine, Before infusion [facility] lacosamide (VIMPAT) 100 mg in NaCl 0.9% (NS) 50 mL piggyback 03-21 03:45: 03-21 07:15 :00 No 100mg 100 mg, IV Piggyback, ONCE, 1 dose, On 03/20/23 at 2245, Administer over 30 Minutes, 50 mL
Facu lty member approving Restricted medication : [facility] ibuprofen (IBU) tablet 800 mg 03-21 02:30: 00 03-21 06:09 :00 No 800mg 800 mg, Oral, ONCE, 1 dose, On 03/20/23 at 2130, [facility] lacosamide 50 mg tablet 03-21 00:00: 00 Yes [id number] 50mg Take 1 tablet by mouth in the morning and 1 tablet in the evening. [facility] lacosamide 50 mg tablet 03-21 00:00: 00 Yes [id number] 50mg Take 1 tablet by mouth in the morning and 1 tablet in the evening. [facility] lacosamide 50 mg tablet 03-21 00:00: 00 Yes [id number] 50mg Take 1 tablet by mouth in the morning and 1 tablet in the evening. [facility] lacosamide 50 mg tablet 03-21 00:00: 00 Yes [id number] 50mg Take 1 tablet by mouth in the morning and 1 tablet in the evening. [facility] lacosamide 50 mg tablet 03-21 00:00: 00 Yes [id number] 50mg Take 1 tablet by mouth in the morning and 1 tablet in the evening. [facility] lacosamide 50 mg tablet 03-21 00:00: 00 Yes [id number] 50mg Take 1 tablet by mouth in the morning and 1 tablet in the evening. [facility] lacosamide 50 mg tablet 03-21 00:00: 00 Yes [id number] 50mg Take 1 tablet by mouth in the morning and 1 tablet in the evening. [facility] lacosamide 50 mg tablet 03-21 00:00: 00 Yes [id number] 50mg Take 1 tablet by mouth in the morning and 1 tablet in the evening. [facility] lacosamide 50 mg tablet 03-21 00:00: 00 Yes [id number] 50mg Take 1 tablet by mouth in the morning and 1 tablet in the evening. [facility] lacosamide 50 mg tablet 03-21 00:00: 00 Yes [id number] 50mg Take 1 tablet by mouth in the morning and 1 tablet in the evening. [facility] lacosamide 50 mg tablet 03-21 00:00: 00 Yes [id number] 50mg Take 1 tablet by mouth in the morning and 1 tablet in the evening. [facility] lacosamide 50 mg tablet 03-21 00:00: 00 Yes [id number] 50mg Take 1 tablet by mouth in the morning and 1 tablet in the evening. [facility] lacosamide 50 mg tablet 03-21 00:00: 00 Yes [id number] 50mg Take 1 tablet by mouth in the morning and 1 tablet in the evening. [facility] lacosamide 50 mg tablet 03-21 00:00: 00 06-17 00:00 :00 No [id number] 50mg Take 1 tablet by mouth in the morning and 1 tablet in the evening. [facility] NaCl 0.9% (NS) bolus infusion 1,000 mL 03-20 23:00: 00 03-20 22:35 :00 No 1000mL at 999 mL/hr, 1,000 mL, IV Infusion, ONCE, 1 dose, On 03/20/23 at 1800, [facility] divalproex ER 500 mg 24 hr tablet 02-18 00:00: 00 Yes [id number] 2000mg Take 4 tablets by mouth in the morning and 4 tablets in the evening. [facility] divalproex ER 500 mg 24 hr tablet 02-18 00:00: 00 Yes [id number] 2000mg Take 4 tablets by mouth in the morning and 4 tablets in the evening. [facility] divalproex ER 500 mg 24 hr tablet 2023-0 7-28 00:00: 00 Yes [id number] 2000mg Take 4 tablets by mouth in the morning and 4 tablets in the evening. [facility] divalproex ER 500 mg 24 hr tablet 3-0 7-28 00:00: 00 Yes [id number] 2000mg Take 4 tablets by mouth in the morning and 4 tablets in the evening. [facility] divalproex ER 500 mg 24 hr tablet 3-0 7-28 00:00: 00 Yes [id number] 2000mg Take 4 tablets by mouth in the morning and 4 tablets in the evening. [facility] divalproex ER 500 mg 24 hr tablet 3-0 7-28 00:00: 00 Yes [id number] 2000mg Take 4 tablets by mouth in the morning and 4 tablets in the evening. [facility] divalproex ER 500 mg 24 hr tablet 3-0 728 00:00: 00 Yes [id number] 2000mg Take 4 tablets by mouth in the morning and 4 tablets in the evening. [facility] divalproex ER 500 mg 24 hr tablet 3-0 28 00:00: 00 Yes [id number] 2000mg Take 4 tablets by mouth in the morning and 4 tablets in the evening. [facility] divalproex ER 500 mg 24 hr tablet 3-0 28 00:00: 00 Yes [id number] 2000mg Take 4 tablets by mouth in the morning and 4 tablets in the evening. [facility] divalproex ER 500 mg 24 hr tablet 3-0 28 00:00: 00 Yes [id number] 2000mg Take 4 tablets by mouth in the morning and 4 tablets in the evening. [facility] divalproex ER 500 mg 24 hr tablet 3-0 7-28 00:00: 00 Yes [id number] 2000mg Take 4 tablets by mouth in the morning and 4 tablets in the evening. [facility] divalproex ER 500 mg 24 hr tablet 3-0 7-28 00:00: 00 Yes [id number] 2000mg Take 4 tablets by mouth in the morning and 4 tablets in the evening. [facility] divalproex ER 500 mg 24 hr tablet 02-18 00:00: 00 Yes [id number] 2000mg Take 4 tablets by mouth in the morning and 4 tablets in the evening. [facility] divalproex ER 500 mg 24 hr tablet 02-18 00:00: 00 Yes [id number] 2000mg Take 4 tablets by mouth in the morning and 4 tablets in the evening. [facility] divalproex ER 500 mg 24 hr tablet 02-18 00:00: 00 Yes [id number] 2000mg Take 4 tablets by mouth in the morning and 4 tablets in the evening. [facility] divalproex ER 500 mg 24 hr tablet 02-18 00:00: 00 Yes [id number] 2000mg Take 4 tablets by mouth in the morning and 4 tablets in the evening. [facility] divalproex ER 500 mg 24 hr tablet 02-18 00:00: 00 06-17 00:00 :00 No [id number] 2000mg Take 4 tablets by mouth in the morning and 4 tablets in the evening. [facility] omega-3s-dh a-epa-fish oil-D3 (FISH OIL-VIT D3) 360 mg-1,200 mg -1,000 unit Cap 02-16 11:59: 33 Yes Take by mouth. [facility] MULTIVITS-M INERALS/FA/ LYCOPENE (ONE-A-DAY MEN'S MULTIVITAMI N ORAL) 02-16 11:59: 33 Yes Take by mouth. [facility] POTASSIUM-9 9 ORAL 02-16 11:59: 33 Yes 99mg Take 99 mg by mouth daily. [facility] omega-3s-dh a-epa-fish oil-D3 (FISH OIL-VIT D3) 360 mg-1,200 mg -1,000 unit Cap 02-16 11:59: 33 Yes Take by mouth. [facility] MULTIVITS-M INERALS/FA/ LYCOPENE (ONE-A-DAY MEN'S MULTIVITAMI N ORAL) 02-16 11:59: 33 Yes Take by mouth. [facility] POTASSIUM-9 9 ORAL 02-16 11:59: 33 Yes 99mg Take 99 mg by mouth daily. [facility] omega-3s-dh a-epa-fish oil-D3 (FISH OIL-VIT D3) 360 mg-1,200 mg -1,000 unit Cap 02-16 11:59: 33 Yes Take by mouth. [facility] MULTIVITS-M INERALS/FA/ LYCOPENE (ONE-A-DAY MEN'S MULTIVITAMI N ORAL) 02-16 11:59: 33 Yes Take by mouth. [facility] POTASSIUM-9 9 ORAL 02-16 11:59: 33 Yes 99mg Take 99 mg by mouth daily. [facility] omega-3s-dh a-epa-fish oil-D3 (FISH OIL-VIT D3) 360 mg-1,200 mg -1,000 unit Cap 02-16 11:59: 33 Yes Take by mouth. [facility] MULTIVITS-M INERALS/FA/ LYCOPENE (ONE-A-DAY MEN'S MULTIVITAMI N ORAL) 02-16 11:59: 33 Yes Take by mouth. [facility] POTASSIUM-9 9 ORAL 02-16 11:59: 33 Yes 99mg Take 99 mg by mouth daily. [facility] divalproex ER (DEPAKOTE ER) 24 hr tablet 2,000 mg 02-16 01:00: 00 Yes [id number] 2000mg 2,000 mg, Oral, BID, First dose (after last modificati on) on Tue02/15/23 at 1999, Until Discontinu ed, Routine [facility] divalproex ER 500 mg 24 hr tablet 02-16 00:00: 00 Yes [id number] 2000mg Take 4 tablets by mouth in the morning and 4 tablets in the evening. [facility] divalproex ER 500 mg 24 hr tablet 02-16 00:00: 00 Yes [id number] 2000mg Take 4 tablets by mouth in the morning and 4 tablets in the evening. [facility] divalproex ER 500 mg 24 hr tablet 02-16 00:00: 00 02-18 00:00 :00 No [id number] 2000mg Take 4 tablets by mouth in the morning and 4 tablets in the evening. [facility] hydralAZINE (APRESOLINE ) injection 5 mg 02-15 02:36: 49 02-18 02:35 :49 No 5mg 5 mg, Slow IV Push, Q3HPRN, Starting on Tue02/14/23 at 2136, Until Karely 02/17/23 at 2135, Routine, DBP=>100; SBP=>180 [facility] atorvastati n (LIPITOR) tablet 20 mg 02-15 02:00: 00 Yes 20mg 20 mg, Oral, QHS, First dose on Tue02/14/23 at 2100, Until Discontinu ed, Routine [facility] iopamidol (ISOVUE 370-500 mL) injection 100 mL 02-14 16:30: 00 02-14 15:30 :00 No [id number] 100mL 100 mL, Intravenou s, ONCE, 1 dose, On Tue02/14/23 at 1130, Routine [facility] predniSONE (DELTASONE) tablet 5 mg 02-14 14:00: 00 Yes 5mg 5 mg, Oral, DAILY, First dose on Tue02/14/23 at 0900, Until Discontinu ed, Routine [facility] pantoprazol e (PROTONIX) EC tablet 40 mg 02-14 14:00: 00 Yes 40mg 40 mg, Oral, DAILY, First dose on Tue02/14/23 at 0900, Until Discontinu ed, Routine [facility] lisinopriL (PRINIVIL,Z ESTRIL) tablet 40 mg 02-14 14:00: 00 Yes 40mg 40 mg, Oral, DAILY, First dose on Tue02/14/23 at 0900, Until Discontinu ed [facility] ferrous sulfate tablet 325 mg 02-14 14:00: 00 Yes 325mg 325 mg, Oral, Q OTHERDAY, First dose on Tue02/14/23 at 0900, Until Discontinu ed, [facility]ine [facility] amLODIPine (NORVASC) tablet 10 mg 02-14 14:00: 00 Yes 10mg 10 mg, Oral, DAILY, First dose on Tue02/14/23 at 0900, Until Discontinu ed, Routine [facility] KCL (KLOR-CON M20) tablet 40 mEq 02-14 14:00: 00 02-14 18:20 :00 No [id number] 40meq 40 mEq, Oral, ONCE, 1 dose, On Tue02/14/23 at 0900, Routine [facility] risperiDONE (RISPERDAL) tablet 1 mg 02-14 13:00: 00 Yes 1mg 1 mg, Oral, BID, First dose on Tue02/14/23 at 0800, Until Discontinu ed, Routine [facility] glyBURIDE (DIABETA) tablet 5 mg 02-14 13:00: 00 Yes 5mg 5 mg, Oral, QAM WITH BREAKFAST, First dose on Tue02/14/23 at 0800, Until Discontinu ed, Routine [facility] gabapentin (NEURONTIN) capsule 300 mg 02-14 13:00: 00 Yes 300mg 300 mg, Oral, TID, First dose on Tue02/14/23 at 0800, Until Discontinu ed, Routine [facility] fluticasone propionate 50 mcg/actuati on nasal spray 1 Somis 02-14 13:00: 00 Yes 1{spray } 1 Somis, Nasal, BID, First dose on Tue02/14/23 at 0800, Until Discontinu ed, Routine [facility] carvediloL (COREG) tablet 25 mg 02-14 13:00: 00 Yes 25mg 25 mg, Oral, BID MEALS, First dose on Tue02/14/23 at 0800, Until Discontinu ed, Routine [facility] hydrALAZINE (APRESOLINE ) tablet 25 mg 02-14 11:00: 00 Yes 25mg 25 mg, Oral, Q6H, First dose on Tue02/14/23 at 0600, Until Discontinu ed, Routine [facility] hydrOXYzine (ATARAX) tablet 10 mg 02-14 06:26: 00 Yes 10mg 10 mg, Oral, Q6HPRN, Starting on Tue02/14/23 at 0126, Until Discontinu ed, Routine, Itching [facility] diphenhydrA MINE (BENADRYL) tablet 25 mg 02-14 06:25: 45 Yes 25mg 25 mg, Oral, PRN, Starting on Tue02/14/23 at 0125, Until Discontinu ed, Routine, Itching [facility] acetaminoph en (TYLENOL) tablet 650 mg 02-14 06:25: 39 Yes 650mg 650 mg, Oral, PRN, Starting on Tue02/14/23 at 0125, Until Discontinu ed, Routine, Before infusion [facility] acetaminoph en (TYLENOL) tablet 650 mg 02-14 05:22: 22 Yes 650mg 650 mg, Oral, Q6HPRN, Starting on Tue02/14/23 at 0022, Until Discontinu ed, Routine, Temp > 38 C [facility] omega-3s-dh a-epa-fish oil-D3 (FISH OIL-VIT D3) 360 mg-1,200 mg -1,000 unit Cap 01-31 15:09: 07 Yes Take by mouth. [facility] MULTIVITS-M INERALS/FA/ LYCOPENE (ONE-A-DAY MEN'S MULTIVITAMI N ORAL) 01-31 15:09: 07 Yes Take by mouth. [facility] POTASSIUM-9 9 ORAL 01-31 15:09: 07 Yes 99mg Take 99 mg by mouth daily. [facility] gabapentin 300 mg capsule 01-31 00:00: 00 Yes [id number] 300mg Take 1 capsule by mouth in the morning and 1 capsule at noon and 1 capsule in the evening. [facility] lisinopriL 40 mg tablet 01-31 00:00: 00 Yes [id number] 40mg Take 1 tablet by mouth in the morning. [facility] metFORMIN 1,000 mg tablet 3-0 7-10 00:00: 00 Yes [id number] 1000mg Take 1 tablet by mouth in the morning and 1 tablet in the evening. Take with meals. [facility] gabapentin 300 mg capsule 3-0 7-10 00:00: 00 Yes [id number] 300mg Take 1 capsule by mouth in the morning and 1 capsule at noon and 1 capsule in the evening. [facility] lisinopriL 40 mg tablet 3-0 7-10 00:00: 00 Yes [id number] 40mg Take 1 tablet by mouth in the morning. [facility] metFORMIN 1,000 mg tablet 3-0 7-10 00:00: 00 Yes [id number] 1000mg Take 1 tablet by mouth in the morning and 1 tablet in the evening. Take with meals. [facility] gabapentin 300 mg capsule 3-0 7-10 00:00: 00 Yes [id number] 300mg Take 1 capsule by mouth in the morning and 1 capsule at noon and 1 capsule in the evening. [facility] lisinopriL 40 mg tablet 3-0 7-10 00:00: 00 Yes [id number] 40mg Take 1 tablet by mouth in the morning. [facility] metFORMIN 1,000 mg tablet 3-0 7-10 00:00: 00 Yes [id number] 1000mg Take 1 tablet by mouth in the morning and 1 tablet in the evening. Take with meals. [facility] gabapentin 300 mg capsule 3-0 7-10 00:00: 00 Yes [id number] 300mg Take 1 capsule by mouth in the morning and 1 capsule at noon and 1 capsule in the evening. [facility] lisinopriL 40 mg tablet 3-0 7-10 00:00: 00 Yes [id number] 40mg Take 1 tablet by mouth in the morning. [facility] metFORMIN 1,000 mg tablet 3-0 7-10 00:00: 00 Yes [id number] 1000mg Take 1 tablet by mouth in the morning and 1 tablet in the evening. Take with meals. [facility] atorvastati n 20 mg tablet 2022-0 -10 00:00: 00 Yes [id number] 20mg Take 1 tablet by mouth at bedtime. [facility] hydrALAZINE 25 mg tablet 2022-0 710 00:00: 00 Yes [id number] 25mg Take 1 tablet by mouth every 6 (six) hours. [facility] gabapentin 300 mg capsule 2022-0 10 00:00: 00 Yes [id number] 300mg Take 1 capsule by mouth in the morning and 1 capsule at noon and 1 capsule in the evening. [facility] lisinopriL 40 mg tablet 2022-0 10 00:00: 00 Yes [id number] 40mg Take 1 tablet by mouth in the morning. [facility] glyBURIDE 5 mg tablet 2022-0 10 00:00: 00 Yes [id number] 5mg Take 1 tablet by mouth daily with breakfast. [facility] metFORMIN 1,000 mg tablet 2022-0 10 00:00: 00 Yes [id number] 1000mg Take 1 tablet by mouth in the morning and 1 tablet in the evening. Take with meals. [facility] atorvastati n 20 mg tablet 2022-0 10 00:00: 00 Yes [id number] 20mg Take 1 tablet by mouth at bedtime. [facility] hydrALAZINE 25 mg tablet 2022-0 10 00:00: 00 Yes [id number] 25mg Take 1 tablet by mouth every 6 (six) hours. [facility] gabapentin 300 mg capsule 2022-0 10 00:00: 00 Yes [id number] 300mg Take 1 capsule by mouth in the morning and 1 capsule at noon and 1 capsule in the evening. [facility] lisinopriL 40 mg tablet 2022-0 10 00:00: 00 Yes [id number] 40mg Take 1 tablet by mouth in the morning. [facility] glyBURIDE 5 mg tablet 2022-0 -10 00:00: 00 Yes [id number] 5mg Take 1 tablet by mouth daily with breakfast. [facility] metFORMIN 1,000 mg tablet 2022-0 7-10 00:00: 00 Yes [id number] 1000mg Take 1 tablet by mouth in the morning and 1 tablet in the evening. Take with meals. [facility] atorvastati n 20 mg tablet 2022-0 10 00:00: 00 Yes [id number] 20mg Take 1 tablet by mouth at bedtime. [facility] hydrALAZINE 25 mg tablet 2022-0 10 00:00: 00 Yes [id number] 25mg Take 1 tablet by mouth every 6 (six) hours. [facility] gabapentin 300 mg capsule 2022-0 10 00:00: 00 Yes [id number] 300mg Take 1 capsule by mouth in the morning and 1 capsule at noon and 1 capsule in the evening. [facility] lisinopriL 40 mg tablet 2022-0 01-31 00:00: 00 Yes [id number] 40mg Take 1 tablet by mouth in the morning. [facility] glyBURIDE 5 mg tablet 2022-0 01-31 00:00: 00 Yes [id number] 5mg Take 1 tablet by mouth daily with breakfast. [facility] metFORMIN 1,000 mg tablet 2022-0 01-31 00:00: 00 Yes [id number] 1000mg Take 1 tablet by mouth in the morning and 1 tablet in the evening. Take with meals. [facility] atorvastati n 20 mg tablet 2022-0 10 00:00: 00 Yes [id number] 20mg Take 1 tablet by mouth at bedtime. [facility] hydrALAZINE 25 mg tablet 2022-0 10 00:00: 00 Yes [id number] 25mg Take 1 tablet by mouth every 6 (six) hours. [facility] gabapentin 300 mg capsule 2022-0 10 00:00: 00 Yes [id number] 300mg Take 1 capsule by mouth in the morning and 1 capsule at noon and 1 capsule in the evening. [facility] lisinopriL 40 mg tablet 2022-0 10 00:00: 00 Yes [id number] 40mg Take 1 tablet by mouth in the morning. [facility] glyBURIDE 5 mg tablet 2022-0 7-10 00:00: 00 Yes [id number] 5mg Take 1 tablet by mouth daily with breakfast. [facility] metFORMIN 1,000 mg tablet 0 01-31 00:00: 00 Yes [id number] 1000mg Take 1 tablet by mouth in the morning and 1 tablet in the evening. Take with meals. [facility] atorvastati n 20 mg tablet 2022-0 01-31 00:00: 00 Yes [id number] 20mg Take 1 tablet by mouth at bedtime. [facility] hydrALAZINE 25 mg tablet 0 01-31 00:00: 00 Yes [id number] 25mg Take 1 tablet by mouth every 6 (six) hours. [facility] gabapentin 300 mg capsule 01-31 00:00: 00 Yes [id number] 300mg Take 1 capsule by mouth in the morning and 1 capsule at noon and 1 capsule in the evening. [facility] lisinopriL 40 mg tablet 0 01-31 00:00: 00 Yes [id number] 40mg Take 1 tablet by mouth in the morning. [facility] glyBURIDE 5 mg tablet 0 01-31 00:00: 00 Yes [id number] 5mg Take 1 tablet by mouth daily with breakfast. [facility] metFORMIN 1,000 mg tablet 0 01-31 00:00: 00 Yes [id number] 1000mg Take 1 tablet by mouth in the morning and 1 tablet in the evening. Take with meals. [facility] atorvastati n 20 mg tablet 0 01-31 00:00: 00 Yes [id number] 20mg Take 1 tablet by mouth at bedtime. [facility] hydrALAZINE 25 mg tablet 0 01-31 00:00: 00 Yes [id number] 25mg Take 1 tablet by mouth every 6 (six) hours. [facility] gabapentin 300 mg capsule 2022-0 01-31 00:00: 00 Yes [id number] 300mg Take 1 capsule by mouth in the morning and 1 capsule at noon and 1 capsule in the evening. [facility] lisinopriL 40 mg tablet 2022-0 01-31 00:00: 00 Yes [id number] 40mg Take 1 tablet by mouth in the morning. [facility] glyBURIDE 5 mg tablet 2022-0 10 00:00: 00 Yes [id number] 5mg Take 1 tablet by mouth daily with breakfast. [facility] metFORMIN 1,000 mg tablet 2022-0 10 00:00: 00 Yes [id number] 1000mg Take 1 tablet by mouth in the morning and 1 tablet in the evening. Take with meals. [facility] gabapentin 300 mg capsule 2022-0 10 00:00: 00 Yes [id number] 300mg Take 1 capsule by mouth in the morning and 1 capsule at noon and 1 capsule in the evening. [facility] lisinopriL 40 mg tablet 2022-0 10 00:00: 00 Yes [id number] 40mg Take 1 tablet by mouth in the morning. [facility] metFORMIN 1,000 mg tablet 2022-0 01-31 00:00: 00 Yes [id number] 1000mg Take 1 tablet by mouth in the morning and 1 tablet in the evening. Take with meals. [facility] gabapentin 300 mg capsule 2022-0 10 00:00: 00 Yes [id number] 300mg Take 1 capsule by mouth in the morning and 1 capsule at noon and 1 capsule in the evening. [facility] lisinopriL 40 mg tablet 2022-0 10 00:00: 00 Yes [id number] 40mg Take 1 tablet by mouth in the morning. [facility] metFORMIN 1,000 mg tablet 2022-0 10 00:00: 00 Yes [id number] 1000mg Take 1 tablet by mouth in the morning and 1 tablet in the evening. Take with meals. [facility] gabapentin 300 mg capsule 2022-0 10 00:00: 00 Yes [id number] 300mg Take 1 capsule by mouth in the morning and 1 capsule at noon and 1 capsule in the evening. [facility] lisinopriL 40 mg tablet 3-0 7-10 00:00: 00 Yes [id number] 40mg Take 1 tablet by mouth in the morning. [facility] metFORMIN 1,000 mg tablet 2023-0 7-10 00:00: 00 Yes [id number] 1000mg Take 1 tablet by mouth in the morning and 1 tablet in the evening. Take with meals. [facility] gabapentin 300 mg capsule 3-0 7-10 00:00: 00 Yes [id number] 300mg Take 1 capsule by mouth in the morning and 1 capsule at noon and 1 capsule in the evening. [facility] lisinopriL 40 mg tablet 3-0 7-10 00:00: 00 Yes [id number] 40mg Take 1 tablet by mouth in the morning. [facility] metFORMIN 1,000 mg tablet 3-0 7-10 00:00: 00 Yes [id number] 1000mg Take 1 tablet by mouth in the morning and 1 tablet in the evening. Take with meals. [facility] gabapentin 300 mg capsule 3-0 7-10 00:00: 00 Yes [id number] 300mg Take 1 capsule by mouth in the morning and 1 capsule at noon and 1 capsule in the evening. [facility] lisinopriL 40 mg tablet 3-0 7-10 00:00: 00 Yes [id number] 40mg Take 1 tablet by mouth in the morning. [facility] metFORMIN 1,000 mg tablet 3-0 7-10 00:00: 00 Yes [id number] 1000mg Take 1 tablet by mouth in the morning and 1 tablet in the evening. Take with meals. [facility] gabapentin 300 mg capsule 3-0 7-10 00:00: 00 Yes [id number] 300mg Take 1 capsule by mouth in the morning and 1 capsule at noon and 1 capsule in the evening. [facility] lisinopriL 40 mg tablet 3-0 7-10 00:00: 00 Yes [id number] 40mg Take 1 tablet by mouth in the morning. [facility] metFORMIN 1,000 mg tablet 3-0 7-10 00:00: 00 Yes [id number] 1000mg Take 1 tablet by mouth in the morning and 1 tablet in the evening. Take with meals. [facility] gabapentin 300 mg capsule 3-0 7-10 00:00: 00 Yes [id number] 300mg Take 1 capsule by mouth in the morning and 1 capsule at noon and 1 capsule in the evening. [facility] lisinopriL 40 mg tablet 3-0 7-10 00:00: 00 Yes [id number] 40mg Take 1 tablet by mouth in the morning. [facility] metFORMIN 1,000 mg tablet 3-0 7-10 00:00: 00 Yes [id number] 1000mg Take 1 tablet by mouth in the morning and 1 tablet in the evening. Take with meals. [facility] gabapentin 300 mg capsule 3-0 7-10 00:00: 00 Yes [id number] 300mg Take 1 capsule by mouth in the morning and 1 capsule at noon and 1 capsule in the evening. [facility] lisinopriL 40 mg tablet 3-0 7-10 00:00: 00 Yes [id number] 40mg Take 1 tablet by mouth in the morning. [facility] metFORMIN 1,000 mg tablet 3-0 7-10 00:00: 00 Yes [id number] 1000mg Take 1 tablet by mouth in the morning and 1 tablet in the evening. Take with meals. [facility] gabapentin 300 mg capsule 3-0 7-10 00:00: 00 Yes [id number] 300mg Take 1 capsule by mouth in the morning and 1 capsule at noon and 1 capsule in the evening. [facility] lisinopriL 40 mg tablet 3-0 7-10 00:00: 00 Yes [id number] 40mg Take 1 tablet by mouth in the morning. [facility] metFORMIN 1,000 mg tablet 3-0 7-10 00:00: 00 Yes [id number] 1000mg Take 1 tablet by mouth in the morning and 1 tablet in the evening. Take with meals. [facility] gabapentin 300 mg capsule 3-0 7-10 00:00: 00 Yes [id number] 300mg Take 1 capsule by mouth in the morning and 1 capsule at noon and 1 capsule in the evening. [facility] lisinopriL 40 mg tablet 3-0 7-10 00:00: 00 Yes [id number] 40mg Take 1 tablet by mouth in the morning. [facility] metFORMIN 1,000 mg tablet 3-0 7-10 00:00: 00 Yes [id number] 1000mg Take 1 tablet by mouth in the morning and 1 tablet in the evening. Take with meals. [facility] gabapentin 300 mg capsule 3-0 7-10 00:00: 00 Yes [id number] 300mg Take 1 capsule by mouth in the morning and 1 capsule at noon and 1 capsule in the evening. [facility] lisinopriL 40 mg tablet 3-0 7-10 00:00: 00 Yes [id number] 40mg Take 1 tablet by mouth in the morning. [facility] metFORMIN 1,000 mg tablet 3-0 7-10 00:00: 00 Yes [id number] 1000mg Take 1 tablet by mouth in the morning and 1 tablet in the evening. Take with meals. [facility] gabapentin 300 mg capsule 3-0 7-10 00:00: 00 Yes [id number] 300mg Take 1 capsule by mouth in the morning and 1 capsule at noon and 1 capsule in the evening. [facility] lisinopriL 40 mg tablet 3-0 7-10 00:00: 00 Yes [id number] 40mg Take 1 tablet by mouth in the morning. [facility] metFORMIN 1,000 mg tablet 3-0 7-10 00:00: 00 Yes [id number] 1000mg Take 1 tablet by mouth in the morning and 1 tablet in the evening. Take with meals. [facility] gabapentin 300 mg capsule 3-0 7-10 00:00: 00 Yes [id number] 300mg Take 1 capsule by mouth in the morning and 1 capsule at noon and 1 capsule in the evening. [facility] lisinopriL 40 mg tablet 3-0 7-10 00:00: 00 Yes [id number] 40mg Take 1 tablet by mouth in the morning. [facility] metFORMIN 1,000 mg tablet 3-0 7-10 00:00: 00 Yes [id number] 1000mg Take 1 tablet by mouth in the morning and 1 tablet in the evening. Take with meals. [facility] gabapentin 300 mg capsule 3-0 7-10 00:00: 00 Yes [id number] 300mg Take 1 capsule by mouth in the morning and 1 capsule at noon and 1 capsule in the evening. [facility] lisinopriL 40 mg tablet 01-31 00:00: 00 Yes [id number] 40mg Take 1 tablet by mouth in the morning. [facility] metFORMIN 1,000 mg tablet 01-31 00:00: 00 Yes [id number] 1000mg Take 1 tablet by mouth in the morning and 1 tablet in the evening. Take with meals. [facility] riTUXimab (RITUXAN) 1,000 mg in NaCl 0.9% (NS) 1,000 mL infusion 12-01 17:00: 00 12-01 20:21 :00 No [id number] 1000mg 1,000 mg, IV Infusion, ONCE, On Tue12/01/22 at 1200, For 1 dose
In itial infusion: start rate at 50 mg/hr. If there is no reaction, increase rate by 50 mg/hr increments every 30 minutes to a maximum of 400 mg/hr.&nbs p;Subseque nt infusions: initiate rate at 100 mg/hr. If infusion is well-sudeep ated, rate may be escalated in 100 mg/hr increments at 30 minute intervals to a maximum of 400 mg/hr.&nbs p;For NHL, from Cycle 2 onward, may give over 90 minutes.&n bsp; Diluted solution may be refrigerat ed for 24 hours.&nbs p; Co mplete administra tion within 8 hours from removal from refrigerat ion. Infu mike-Relat ed Reactions (IRR):&nbs p;Rituxima b products can cause severe, including fatal, infusion-r elated reactions. Severe reactions typically occurred during the first infusion with time to onset of 30-120 minutes.&n bsp; Rituximab product-in duced infusion-r elated reactions and sequelae include urticaria, hypotensio n, angioedema , hypoxia, bronchospa sm, pulmonary infiltrate s, acute respirator y distress syndrome, myocardial infarction , ventricula r fibrillati on, cardiogeni c shock, anaphylact oid events, or .&nbs p;&nbs p;Premedic ate patients with an antihistam ine and acetaminop hen prior to dosing. For patients with Granulomat osis with Polyangiit is (GPA) (Megan's Granulomat osis) and Microscopi c Polyangiit is (MPA), methylpred nisolone 100 mg intravenou sly or its equivalent is recommende d 30 minutes prior to each infusion. [place] medical management (e.g., glucocorti coids, epinephrin e, bronchodil ators, or oxygen) for infusion-r elated reactions as needed. Depending on the severity of the infusion-r elated reaction and the required interventi ons, temporaril y or permanentl y discontinu e RUXIENCE. Resume infusion at a minimum 50% reduction in rate after symptoms have resolved.& nbsp;Close ly monitor the following patients: those with preexistin g cardiac or pulmonary conditions , those who experience d prior cardiopulm onary adverse reactions, and those with high numbers of circulatin g malignant cells (greater than or equal to 25,000/mm3 ). &n bsp;BOXED WARNINGS:& nbsp;WARNI NG: FATAL INFUSION-R ELATED REACTIONS, SEVERE MUCOCUTANE OUS REACTIONS, HEPATITIS B VIRUS REACTIVATI ON and PROGRESSIV E MULTIFOCAL LEUKOENCEP HALOPATHY& nbsp;Infus ion-relate d reactions: Rituximab administra tion can result in serious, including fatal infusion-r elated reactions. Deaths within 24 hours of Rituximab infusion have occurred. Approximat dolores 80% of fatal infusion-r elated reactions occurred in associatio n with the first infusion. Monitor patients closely. Discontinu e Rituximab infusion for severe reactions and provide medical treatment for Grade 3 or 4 infusion-r elated reactions. &amp ;nbsp;Sharon re Mucocutane ous Reactions: Severe, including fatal, mucocutane ous reactions can occur in patients receiving Rituximab. &nbs p;Hepatiti s B Virus (HBV) Reactivati on: HBV reactivati on can occur in patients treated with Rituximab, in some cases resulting in fulminant hepatitis, hepatic failure, and . Screen all patients for HBV infection before treatment initiation , and monitor patients during and after treatment with Rituximab. Discontinu e Rituximab and concomitan t medication s in the event of HBV reactivati on. & nbsp;Progr essive Multifocal Leukoencep halopathy (PML), including fatal PML, can occur in patients receiving Rituximab. &nbs p;
[facility] riTUXimab (RITUXAN) 1,000 mg in NaCl 0.9% (NS) 1,000 mL infusion 12-01 17:00: 00 12-01 20:21 :00 No [id number] 1000mg 1,000 mg, IV Infusion, ONCE, On Tue12/01/22 at 1200, For 1 dose
In itial infusion: start rate at 50 mg/hr. If there is no reaction, increase rate by 50 mg/hr increments every 30 minutes to a maximum of 400 mg/hr.&nbs p;Subseque nt infusions: initiate rate at 100 mg/hr. If infusion is well-sudeep ated, rate may be escalated in 100 mg/hr increments at 30 minute intervals to a maximum of 400 mg/hr.&nbs p;For NHL, from Cycle 2 onward, may give over 90 minutes.&n bsp; Diluted solution may be refrigerat ed for 24 hours.&nbs p; Co mplete administra tion within 8 hours from removal from refrigerat ion. Infu mike-Relat ed Reactions (IRR):&nbs p;Rituxima b products can cause severe, including fatal, infusion-r elated reactions. Severe reactions typically occurred during the first infusion with time to onset of 30-120 minutes.&n bsp; Rituximab product-in duced infusion-r elated reactions and sequelae include urticaria, hypotensio n, angioedema , hypoxia, bronchospa sm, pulmonary infiltrate s, acute respirator y distress syndrome, myocardial infarction , ventricula r fibrillati on, cardiogeni c shock, anaphylact oid events, or .&nbs p;&nbs p;Premedic ate patients with an antihistam ine and acetaminop hen prior to dosing. For patients with Granulomat osis with Polyangiit is (GPA) (Megan's Granulomat osis) and Microscopi c Polyangiit is (MPA), methylpred nisolone 100 mg intravenou sly or its equivalent is recommende d 30 minutes prior to each infusion. [place] [facility] management (e.g., glucocorti coids, epinephrin e, bronchodil ators, or oxygen) for infusion-r elated reactions as needed. Depending on the severity of the infusion-r elated reaction and the required interventi ons, temporaril y or permanentl y discontinu e RUXIENCE. Resume infusion at a minimum 50% reduction in rate after symptoms have resolved.& nbsp;Close ly monitor the following patients: those with preexistin g cardiac or pulmonary conditions , those who experience d prior cardiopulm onary adverse reactions, and those with high numbers of circulatin g malignant cells (greater than or equal to 25,000/mm3 ). &n bsp;BOXED WARNINGS:& nbsp;JESSNI NG: FATAL INFUSION-R ELATED REACTIONS, SEVERE MUCOCUTANE OUS REACTIONS, HEPATITIS B VIRUS REACTIVATI ON and PROGRESSIV E MULTIFOCAL LEUKOENCEP HALOPATHY& nbsp;Infus ion-relate d reactions: Rituximab administra tion can result in serious, including fatal infusion-r elated reactions. Deaths within 24 hours of Rituximab infusion have occurred. Approximat dolores 80% of fatal infusion-r elated reactions occurred in associatio n with the first infusion. Monitor patients closely. Discontinu e Rituximab infusion for severe reactions and provide medical treatment for Grade 3 or 4 infusion-r elated reactions. &amp ;nbsp;[facility]aron re Mucocutane ous Reactions: Severe, including fatal, mucocutane ous reactions can occur in patients receiving Rituximab. &nbs p;Hepatiti s B Virus (HBV) Reactivati on: HBV reactivati on can occur in patients treated with Rituximab, in some cases resulting in fulminant hepatitis, hepatic failure, and . Screen all patients for HBV infection before treatment initiation , and monitor patients during and after treatment with Rituximab. Discontinu e Rituximab and concomitan t medication s in the event of HBV reactivati on. & nbsp;Progr essive Multifocal Leukoencep halopathy (PML), including fatal PML, can occur in patients receiving Rituximab. &nbs p;
[facility] riTUXimab (RITUXAN) 1,000 mg in NaCl 0.9% (NS) 1,000 mL infusion 12-01 17:00: 00 12-01 20:21 :00 No [id number] 1000mg 1,000 mg, IV Infusion, ONCE, On Tue12/01/22 at 1200, For 1 dose
In itial infusion: start rate at 50 mg/hr. If there is no reaction, increase rate by 50 mg/hr increments every 30 minutes to a maximum of 400 mg/hr.&nbs p;Subseque nt infusions: initiate rate at 100 mg/hr. If infusion is well-sudeep ated, rate may be escalated in 100 mg/hr increments at 30 minute intervals to a maximum of 400 mg/hr.&nbs p;For NHL, from Cycle 2 onward, may give over 90 minutes.&n bsp; Diluted solution may be refrigerat ed for 24 hours.&nbs p; Co mplete administra tion within 8 hours from removal from refrigerat ion. Infu mike-Relat ed Reactions (IRR):&nbs p;Rituxima b products can cause severe, including fatal, infusion-r elated reactions. Severe reactions typically occurred during the first infusion with time to onset of 30-120 minutes.&n bsp; Rituximab product-in duced infusion-r elated reactions and sequelae include urticaria, hypotensio n, angioedema , hypoxia, bronchospa sm, pulmonary infiltrate s, acute respirator y distress syndrome, myocardial infarction , ventricula r fibrillati on, cardiogeni c shock, anaphylact oid events, or .&nbs p;&nbs p;Premedic ate patients with an antihistam ine and acetaminop hen prior to dosing. For patients with Granulomat osis with Polyangiit is (GPA) (Megan's Granulomat osis) and Microscopi c Polyangiit is (MPA), methylpred nisolone 100 mg intravenou sly or its equivalent is recommende d 30 minutes prior to each infusion. [place] [facility] (e.g., glucocorti coids, epinephrin e, bronchodil ators, or oxygen) for infusion-r elated reactions as needed. Depending on the severity of the infusion-r elated reaction and the required interventi ons, temporaril y or permanentl y discontinu e RUXIENCE. Resume infusion at a minimum 50% reduction in rate after symptoms have resolved.& nbsp;Close ly monitor the following patients: those with preexistin g cardiac or pulmonary conditions , those who experience d prior cardiopulm onary adverse reactions, and those with high numbers of circulatin g malignant cells (greater than or equal to 25,000/mm3 ). &n bsp;BOXED WARNINGS:& nbsp;WARNI NG: FATAL INFUSION-R ELATED REACTIONS, SEVERE MUCOCUTANE OUS REACTIONS, HEPATITIS B VIRUS REACTIVATI ON and PROGRESSIV E MULTIFOCAL LEUKOENCEP HALOPATHY& nbsp;Infus ion-relate d reactions: Rituximab administra tion can result in serious, including fatal infusion-r elated reactions. Deaths within 24 hours of Rituximab infusion have occurred. Approximat dolores 80% of fatal infusion-r elated reactions occurred in associatio n with the first infusion. Monitor patients closely. Discontinu e Rituximab infusion for severe reactions and provide medical treatment for Grade 3 or 4 infusion-r elated reactions. &amp ;nbsp;Sharon re Mucocutane ous Reactions: Severe, including fatal, mucocutane ous reactions can occur in patients receiving Rituximab. &nbs p;Hepatiti s B Virus (HBV) Reactivati on: HBV reactivati on can occur in patients treated with Rituximab, in some cases resulting in fulminant hepatitis, hepatic failure, and . Screen all patients for HBV infection before treatment initiation , and monitor patients during and after treatment with Rituximab. Discontinu e Rituximab and concomitan t medication s in the event of HBV reactivati on. & nbsp;Progr essive Multifocal Leukoencep halopathy (PML), including fatal PML, can occur in patients receiving Rituximab. &nbs p;
[facility] riTUXimab (RITUXAN) 1,000 mg in NaCl 0.9% (NS) 1,000 mL infusion 12-01 17:00: 00 12-01 20:21 :00 No [id number] 1000mg 1,000 mg, IV Infusion, ONCE, On Tue12/01/22 at 1200, For 1 dose
In itial infusion: start rate at 50 mg/hr. If there is no reaction, increase rate by 50 mg/hr increments every 30 minutes to a maximum of 400 mg/hr.&nbs p;Subseque nt infusions: initiate rate at 100 mg/hr. If infusion is well-sudeep ated, rate may be escalated in 100 mg/hr increments at 30 minute intervals to a maximum of 400 mg/hr.&nbs p;For NHL, from Cycle 2 onward, may give over 90 minutes.&n bsp; Diluted solution may be refrigerat ed for 24 hours.&nbs p; Co mplete administra tion within 8 hours from removal from refrigerat ion. Infu mike-Relat ed Reactions (IRR):&nbs p;Rituxima b products can cause severe, including fatal, infusion-r elated reactions. Severe reactions typically occurred during the first infusion with time to onset of 30-120 minutes.&n bsp; Rituximab product-in duced infusion-r elated reactions and sequelae include urticaria, hypotensio n, angioedema , hypoxia, bronchospa sm, pulmonary infiltrate s, acute respirator y distress syndrome, myocardial infarction , ventricula r fibrillati on, cardiogeni c shock, anaphylact oid events, or .&nbs p;&nbs p;Premedic ate patients with an antihistam ine and acetaminop hen prior to dosing. For patients with Granulomat osis with Polyangiit is (GPA) (Megan's Granulomat osis) and Microscopi c Polyangiit is (MPA), methylpred nisolone 100 mg intravenou sly or its equivalent is recommende d 30 minutes prior to each infusion. [place] [facility] (e.g., glucocorti coids, epinephrin e, bronchodil ators, or oxygen) for infusion-r elated reactions as needed. Depending on the severity of the infusion-r elated reaction and the required interventi ons, temporaril y or permanentl y discontinu e RUXIENCE. Resume infusion at a minimum 50% reduction in rate after symptoms have resolved.& nbsp;Close ly monitor the following patients: those with preexistin g cardiac or pulmonary conditions , those who experience d prior cardiopulm onary adverse reactions, and those with high numbers of circulatin g malignant cells (greater than or equal to 25,000/mm3 ). &n bsp;BOXED WARNINGS:& nbsp;WARNI NG: FATAL INFUSION-R ELATED REACTIONS, SEVERE MUCOCUTANE OUS REACTIONS, HEPATITIS B VIRUS REACTIVATI ON and PROGRESSIV E MULTIFOCAL LEUKOENCEP HALOPATHY& nbsp;Infus ion-relate d reactions: Rituximab administra tion can result in serious, including fatal infusion-r elated reactions. Deaths within 24 hours of Rituximab infusion have occurred. Approximat dolores 80% of fatal infusion-r elated reactions occurred in associatio n with the first infusion. Monitor patients closely. Discontinu e Rituximab infusion for severe reactions and provide medical treatment for Grade 3 or 4 infusion-r elated reactions. &amp ;nbsp;Sharon re Mucocutane ous Reactions: Severe, including fatal, mucocutane ous reactions can occur in patients receiving Rituximab. &nbs p;Hepatiti s B Virus (HBV) Reactivati on: HBV reactivati on can occur in patients treated with Rituximab, in some cases resulting in fulminant hepatitis, hepatic failure, and . Screen all patients for HBV infection before treatment initiation , and monitor patients during and after treatment with Rituximab. Discontinu e Rituximab and concomitan t medication s in the event of HBV reactivati on. & nbsp;Progr essive Multifocal Leukoencep halopathy (PML), including fatal PML, can occur in patients receiving Rituximab. &nbs p;
[facility] riTUXimab (RITUXAN) 1,000 mg in NaCl 0.9% (NS) 1,000 mL infusion 12-01 17:00: 00 12-01 20:21 :00 No [id number] 1000mg 1,000 mg, IV Infusion, ONCE, On Tue12/01/22 at 1200, For 1 dose
In itial infusion: start rate at 50 mg/hr. If there is no reaction, increase rate by 50 mg/hr increments every 30 minutes to a maximum of 400 mg/hr.&nbs p;Subseque nt infusions: initiate rate at 100 mg/hr. If infusion is well-sudeep ated, rate may be escalated in 100 mg/hr increments at 30 minute intervals to a maximum of 400 mg/hr.&nbs p;For NHL, from Cycle 2 onward, may give over 90 minutes.&n bsp; Diluted solution may be refrigerat ed for 24 hours.&nbs p; Co mplete administra tion within 8 hours from removal from refrigerat ion. Infu mike-Relat ed Reactions (IRR):&nbs p;Rituxima b products can cause severe, including fatal, infusion-r elated reactions. Severe reactions typically occurred during the first infusion with time to onset of 30-120 minutes.&n bsp; Rituximab product-in duced infusion-r elated reactions and sequelae include urticaria, hypotensio n, angioedema , hypoxia, bronchospa sm, pulmonary infiltrate s, acute respirator y distress syndrome, myocardial infarction , ventricula r fibrillati on, cardiogeni c shock, anaphylact oid events, or .&nbs p;&nbs p;Premedic ate patients with an antihistam ine and acetaminop hen prior to dosing. For patients with Granulomat osis with Polyangiit is (GPA) (Megan's Granulomat osis) and Microscopi c Polyangiit is (MPA), methylpred nisolone 100 mg intravenou sly or its equivalent is recommende d 30 minutes prior to each infusion. [place] [facility] (e.g., glucocorti coids, epinephrin e, bronchodil ators, or oxygen) for infusion-r elated reactions as needed. Depending on the severity of the infusion-r elated reaction and the required interventi ons, temporaril y or permanentl y discontinu e RUXIENCE. Resume infusion at a minimum 50% reduction in rate after symptoms have resolved.& nbsp;Close ly monitor the following patients: those with preexistin g cardiac or pulmonary conditions , those who experience d prior cardiopulm onary adverse reactions, and those with high numbers of circulatin g malignant cells (greater than or equal to 25,000/mm3 ). &n bsp;BOXED WARNINGS:& nbsp;PATY NG: FATAL INFUSION-R ELATED REACTIONS, SEVERE MUCOCUTANE OUS REACTIONS, HEPATITIS B VIRUS REACTIVATI ON and PROGRESSIV E MULTIFOCAL LEUKOENCEP HALOPATHY& nbsp;Infus ion-relate d reactions: Rituximab administra tion can result in serious, including fatal infusion-r elated reactions. Deaths within 24 hours of Rituximab infusion have occurred. Approximat dolores 80% of fatal infusion-r elated reactions occurred in associatio n with the first infusion. Monitor patients closely. Discontinu e Rituximab infusion for severe reactions and provide medical treatment for Grade 3 or 4 infusion-r elated reactions. &amp ;nbsp;Sharon re Mucocutane ous Reactions: Severe, including fatal, mucocutane ous reactions can occur in patients receiving Rituximab. &nbs p;Hepatiti s B Virus (HBV) Reactivati on: HBV reactivati on can occur in patients treated with Rituximab, in some cases resulting in fulminant hepatitis, hepatic failure, and . Screen all patients for HBV infection before treatment initiation , and monitor patients during and after treatment with Rituximab. Discontinu e Rituximab and concomitan t medication s in the event of HBV reactivati on. & nbsp;Progr essive Multifocal Leukoencep halopathy (PML), including fatal PML, can occur in patients receiving Rituximab. &nbs p;
[facility] riTUXimab (RITUXAN) 1,000 mg in NaCl 0.9% (NS) 1,000 mL infusion 12-01 17:00: 00 12-01 20:21 :00 No [id number] 1000mg 1,000 mg, IV Infusion, ONCE, On Tue12/01/22 at 1200, For 1 dose
In itial infusion: start rate at 50 mg/hr. If there is no reaction, increase rate by 50 mg/hr increments every 30 minutes to a maximum of 400 mg/hr.&nbs p;Subseque nt infusions: initiate rate at 100 mg/hr. If infusion is well-sudeep ated, rate may be escalated in 100 mg/hr increments at 30 minute intervals to a maximum of 400 mg/hr.&nbs p;For NHL, from Cycle 2 onward, may give over 90 minutes.&n bsp; Diluted solution may be refrigerat ed for 24 hours.&nbs p; Co mplete administra tion within 8 hours from removal from refrigerat ion. Infu mike-Relat ed Reactions (IRR):&nbs p;Rituxima b products can cause severe, including fatal, infusion-r elated reactions. Severe reactions typically occurred during the first infusion with time to onset of 30-120 minutes.&n bsp; Rituximab product-in duced infusion-r elated reactions and sequelae include urticaria, hypotensio n, angioedema , hypoxia, bronchospa sm, pulmonary infiltrate s, acute respirator y distress syndrome, myocardial infarction , ventricula r fibrillati on, cardiogeni c shock, anaphylact oid events, or .&nbs p;&nbs p;Premedic ate patients with an antihistam ine and acetaminop hen prior to dosing. For patients with Granulomat osis with Polyangiit is (GPA) (Megan's Granulomat osis) and Microscopi c Polyangiit is (MPA), methylpred nisolone 100 mg intravenou sly or its equivalent is recommende d 30 minutes prior to each infusion. [place] [facility] management (e.g., glucocorti coids, epinephrin e, bronchodil ators, or oxygen) for infusion-r elated reactions as needed. Depending on the severity of the infusion-r elated reaction and the required interventi ons, temporaril y or permanentl y discontinu e RUXIENCE. Resume infusion at a minimum 50% reduction in rate after symptoms have resolved.& nbsp;Close ly monitor the following patients: those with preexistin g cardiac or pulmonary conditions , those who experience d prior cardiopulm onary adverse reactions, and those with high numbers of circulatin g malignant cells (greater than or equal to 25,000/mm3 ). &n bsp;BOXED WARNINGS:& nbsp;PATY NG: FATAL INFUSION-R ELATED REACTIONS, SEVERE MUCOCUTANE OUS REACTIONS, HEPATITIS B VIRUS REACTIVATI ON and PROGRESSIV E MULTIFOCAL LEUKOENCEP HALOPATHY& nbsp;Infus ion-relate d reactions: Rituximab administra tion can result in serious, including fatal infusion-r elated reactions. Deaths within 24 hours of Rituximab infusion have occurred. Approximat dolores 80% of fatal infusion-r elated reactions occurred in associatio n with the first infusion. Monitor patients closely. Discontinu e Rituximab infusion for severe reactions and provide medical treatment for Grade 3 or 4 infusion-r elated reactions. &amp ;nbsp;Sharon re Mucocutane ous Reactions: Severe, including fatal, mucocutane ous reactions can occur in patients receiving Rituximab. &nbs p;Hepatiti s B Virus (HBV) Reactivati on: HBV reactivati on can occur in patients treated with Rituximab, in some cases resulting in fulminant hepatitis, hepatic failure, and . Screen all patients for HBV infection before treatment initiation , and monitor patients during and after treatment with Rituximab. Discontinu e Rituximab and concomitan t medication s in the event of HBV reactivati on. & nbsp;Progr essive Multifocal Leukoencep halopathy (PML), including fatal PML, can occur in patients receiving Rituximab. &nbs p;
[facility] riTUXimab (RITUXAN) 1,000 mg in NaCl 0.9% (NS) 1,000 mL infusion 12-01 17:00: 00 12-01 20:21 :00 No [id number] 1000mg 1,000 mg, IV Infusion, ONCE, On Tue12/01/22 at 1200, For 1 dose
In itial infusion: start rate at 50 mg/hr. If there is no reaction, increase rate by 50 mg/hr increments every 30 minutes to a maximum of 400 mg/hr.&nbs p;Subseque nt infusions: initiate rate at 100 mg/hr. If infusion is well-sudeep ated, rate may be escalated in 100 mg/hr increments at 30 minute intervals to a maximum of 400 mg/hr.&nbs p;For NHL, from Cycle 2 onward, may give over 90 minutes.&n bsp; Diluted solution may be refrigerat ed for 24 hours.&nbs p; Co mplete administra tion within 8 hours from removal from refrigerat ion. Infu mike-Relat ed Reactions (IRR):&nbs p;Rituxima b products can cause severe, including fatal, infusion-r elated reactions. Severe reactions typically occurred during the first infusion with time to onset of 30-120 minutes.&n bsp; Rituximab product-in duced infusion-r elated reactions and sequelae include urticaria, hypotensio n, angioedema , hypoxia, bronchospa sm, pulmonary infiltrate s, acute respirator y distress syndrome, myocardial infarction , ventricula r fibrillati on, cardiogeni c shock, anaphylact oid events, or .&nbs p;&nbs p;Premedic ate patients with an antihistam ine and acetaminop hen prior to dosing. For patients with Granulomat osis with Polyangiit is (GPA) (Megan's Granulomat osis) and Microscopi c Polyangiit is (MPA), methylpred nisolone 100 mg intravenou sly or its equivalent is recommende d 30 minutes prior to each infusion. [place] [facility] management (e.g., glucocorti coids, epinephrin e, bronchodil ators, or oxygen) for infusion-r elated reactions as needed. Depending on the severity of the infusion-r elated reaction and the required interventi ons, temporaril y or permanentl y discontinu e RUXIENCE. Resume infusion at a minimum 50% reduction in rate after symptoms have resolved.& nbsp;Close ly monitor the following patients: those with preexistin g cardiac or pulmonary conditions , those who experience d prior cardiopulm onary adverse reactions, and those with high numbers of circulatin g malignant cells (greater than or equal to 25,000/mm3 ). &n bsp;BOXED WARNINGS:& nbsp;WARNI NG: FATAL INFUSION-R ELATED REACTIONS, SEVERE MUCOCUTANE OUS REACTIONS, HEPATITIS B VIRUS REACTIVATI ON and PROGRESSIV E MULTIFOCAL LEUKOENCEP HALOPATHY& nbsp;Infus ion-relate d reactions: Rituximab administra tion can result in serious, including fatal infusion-r elated reactions. Deaths within 24 hours of Rituximab infusion have occurred. Approximat dolores 80% of fatal infusion-r elated reactions occurred in associatio n with the first infusion. Monitor patients closely. Discontinu e Rituximab infusion for severe reactions and provide medical treatment for Grade 3 or 4 infusion-r elated reactions. &amp ;nbsp;Sharon re Mucocutane ous Reactions: Severe, including fatal, mucocutane ous reactions can occur in patients receiving Rituximab. &nbs p;Hepatiti s B Virus (HBV) Reactivati on: HBV reactivati on can occur in patients treated with Rituximab, in some cases resulting in fulminant hepatitis, hepatic failure, and . Screen all patients for HBV infection before treatment initiation , and monitor patients during and after treatment with Rituximab. Discontinu e Rituximab and concomitan t medication s in the event of HBV reactivati on. & nbsp;Progr essive Multifocal Leukoencep halopathy (PML), including fatal PML, can occur in patients receiving Rituximab. &nbs p;
[facility] riTUXimab (RITUXAN) 1,000 mg in NaCl 0.9% (NS) 1,000 mL infusion 12-01 17:00: 00 12-01 20:21 :00 No [id number] 1000mg 1,000 mg, IV Infusion, ONCE, On Tue12/01/22 at 1200, For 1 dose
In itial infusion: start rate at 50 mg/hr. If there is no reaction, increase rate by 50 mg/hr increments every 30 minutes to a maximum of 400 mg/hr.&nbs p;Subseque nt infusions: initiate rate at 100 mg/hr. If infusion is well-sudeep ated, rate may be escalated in 100 mg/hr increments at 30 minute intervals to a maximum of 400 mg/hr.&nbs p;For NHL, from Cycle 2 onward, may give over 90 minutes.&n bsp; Diluted solution may be refrigerat ed for 24 hours.&nbs p; Co mplete administra tion within 8 hours from removal from refrigerat ion. Infu mike-Relat ed Reactions (IRR):&nbs p;Rituxima b products can cause severe, including fatal, infusion-r elated reactions. Severe reactions typically occurred during the first infusion with time to onset of 30-120 minutes.&n bsp; Rituximab product-in duced infusion-r elated reactions and sequelae include urticaria, hypotensio n, angioedema , hypoxia, bronchospa sm, pulmonary infiltrate s, acute respirator y distress syndrome, myocardial infarction , ventricula r fibrillati on, cardiogeni c shock, anaphylact oid events, or .&nbs p;&nbs p;Premedic ate patients with an antihistam ine and acetaminop hen prior to dosing. For patients with Granulomat osis with Polyangiit is (GPA) (Megan's Granulomat osis) and Microscopi c Polyangiit is (MPA), methylpred nisolone 100 mg intravenou sly or its equivalent is recommende d 30 minutes prior to each infusion. [place] [facility] (e.g., glucocorti coids, epinephrin e, bronchodil ators, or oxygen) for infusion-r elated reactions as needed. Depending on the severity of the infusion-r elated reaction and the required interventi ons, temporaril y or permanentl y discontinu e RUXIENCE. Resume infusion at a minimum 50% reduction in rate after symptoms have resolved.& nbsp;Close ly monitor the following patients: those with preexistin g cardiac or pulmonary conditions , those who experience d prior cardiopulm onary adverse reactions, and those with high numbers of circulatin g malignant cells (greater than or equal to 25,000/mm3 ). &n bsp;BOXED WARNINGS:& nbsp;PATY NG: FATAL INFUSION-R ELATED REACTIONS, SEVERE MUCOCUTANE OUS REACTIONS, HEPATITIS B VIRUS REACTIVATI ON and PROGRESSIV E MULTIFOCAL LEUKOENCEP HALOPATHY& nbsp;Infus ion-relate d reactions: Rituximab administra tion can result in serious, including fatal infusion-r elated reactions. Deaths within 24 hours of Rituximab infusion have occurred. Approximat dolores 80% of fatal infusion-r elated reactions occurred in associatio n with the first infusion. Monitor patients closely. Discontinu e Rituximab infusion for severe reactions and provide medical treatment for Grade 3 or 4 infusion-r elated reactions. &amp ;nbsp;Sharon re Mucocutane ous Reactions: Severe, including fatal, mucocutane ous reactions can occur in patients receiving Rituximab. &nbs p;Hepatiti s B Virus (HBV) Reactivati on: HBV reactivati on can occur in patients treated with Rituximab, in some cases resulting in fulminant hepatitis, hepatic failure, and . Screen all patients for HBV infection before treatment initiation , and monitor patients during and after treatment with Rituximab. Discontinu e Rituximab and concomitan t medication s in the event of HBV reactivati on. & nbsp;Progr essive Multifocal Leukoencep halopathy (PML), including fatal PML, can occur in patients receiving Rituximab. &nbs p;
[facility] riTUXimab (RITUXAN) 1,000 mg in NaCl 0.9% (NS) 1,000 mL infusion 12-01 17:00: 00 12-01 20:21 :00 No [id number] 1000mg 1,000 mg, IV Infusion, ONCE, On Tue12/01/22 at 1200, For 1 dose
In itial infusion: start rate at 50 mg/hr. If there is no reaction, increase rate by 50 mg/hr increments every 30 minutes to a maximum of 400 mg/hr.&nbs p;Subseque nt infusions: initiate rate at 100 mg/hr. If infusion is well-sudeep ated, rate may be escalated in 100 mg/hr increments at 30 minute intervals to a maximum of 400 mg/hr.&nbs p;For NHL, from Cycle 2 onward, may give over 90 minutes.&n bsp; Diluted solution may be refrigerat ed for 24 hours.&nbs p; Co mplete administra tion within 8 hours from removal from refrigerat ion. Infu mike-Relat ed Reactions (IRR):&nbs p;Rituxima b products can cause severe, including fatal, infusion-r elated reactions. Severe reactions typically occurred during the first infusion with time to onset of 30-120 minutes.&n bsp; Rituximab product-in duced infusion-r elated reactions and sequelae include urticaria, hypotensio n, angioedema , hypoxia, bronchospa sm, pulmonary infiltrate s, acute respirator y distress syndrome, myocardial infarction , ventricula r fibrillati on, cardiogeni c shock, anaphylact oid events, or .&nbs p;&nbs p;Premedic ate patients with an antihistam ine and acetaminop hen prior to dosing. For patients with Granulomat osis with Polyangiit is (GPA) (Megan's Granulomat osis) and Microscopi c Polyangiit is (MPA), methylpred nisolone 100 mg intravenou sly or its equivalent is recommende d 30 minutes prior to each infusion. [place] [facility] (e.g., glucocorti coids, epinephrin e, bronchodil ators, or oxygen) for infusion-r elated reactions as needed. Depending on the severity of the infusion-r elated reaction and the required interventi ons, temporaril y or permanentl y discontinu e RUXIENCE. Resume infusion at a minimum 50% reduction in rate after symptoms have resolved.& nbsp;Close ly monitor the following patients: those with preexistin g cardiac or pulmonary conditions , those who experience d prior cardiopulm onary adverse reactions, and those with high numbers of circulatin g malignant cells (greater than or equal to 25,000/mm3 ). &n bsp;BOXED WARNINGS:& nbsp;WARNI NG: FATAL INFUSION-R ELATED REACTIONS, SEVERE MUCOCUTANE OUS REACTIONS, HEPATITIS B VIRUS REACTIVATI ON and PROGRESSIV E MULTIFOCAL LEUKOENCEP HALOPATHY& nbsp;Infus ion-relate d reactions: Rituximab administra tion can result in serious, including fatal infusion-r elated reactions. Deaths within 24 hours of Rituximab infusion have occurred. Approximat dolores 80% of fatal infusion-r elated reactions occurred in associatio n with the first infusion. Monitor patients closely. Discontinu e Rituximab infusion for severe reactions and provide medical treatment for Grade 3 or 4 infusion-r elated reactions. &amp ;nbsp;Sharon re Mucocutane ous Reactions: Severe, including fatal, mucocutane ous reactions can occur in patients receiving Rituximab. &nbs p;Hepatiti s B Virus (HBV) Reactivati on: HBV reactivati on can occur in patients treated with Rituximab, in some cases resulting in fulminant hepatitis, hepatic failure, and . Screen all patients for HBV infection before treatment initiation , and monitor patients during and after treatment with Rituximab. Discontinu e Rituximab and concomitan t medication s in the event of HBV reactivati on. & nbsp;Progr essive Multifocal Leukoencep halopathy (PML), including fatal PML, can occur in patients receiving Rituximab. &nbs p;
[facility] riTUXimab (RITUXAN) 1,000 mg in NaCl 0.9% (NS) 1,000 mL infusion 12-01 17:00: 00 12-01 20:21 :00 No [id number] 1000mg 1,000 mg, IV Infusion, ONCE, On Tue12/01/22 at 1200, For 1 dose
In itial infusion: start rate at 50 mg/hr. If there is no reaction, increase rate by 50 mg/hr increments every 30 minutes to a maximum of 400 mg/hr.&nbs p;Subseque nt infusions: initiate rate at 100 mg/hr. If infusion is well-sudeep ated, rate may be escalated in 100 mg/hr increments at 30 minute intervals to a maximum of 400 mg/hr.&nbs p;For NHL, from Cycle 2 onward, may give over 90 minutes.&n bsp; Diluted solution may be refrigerat ed for 24 hours.&nbs p; Co mplete administra tion within 8 hours from removal from refrigerat ion. Infu mike-Relat ed Reactions (IRR):&nbs p;Rituxima b products can cause severe, including fatal, infusion-r elated reactions. Severe reactions typically occurred during the first infusion with time to onset of 30-120 minutes.&n bsp; Rituximab product-in duced infusion-r elated reactions and sequelae include urticaria, hypotensio n, angioedema , hypoxia, bronchospa sm, pulmonary infiltrate s, acute respirator y distress syndrome, myocardial infarction , ventricula r fibrillati on, cardiogeni c shock, anaphylact oid events, or .&nbs p;&nbs p;Premedic ate patients with an antihistam ine and acetaminop hen prior to dosing. For patients with Granulomat osis with Polyangiit is (GPA) (Megan's Granulomat osis) and Microscopi c Polyangiit is (MPA), methylpred nisolone 100 mg intravenou sly or its equivalent is recommende d 30 minutes prior to each infusion. [place] [facility] (e.g., glucocorti coids, epinephrin e, bronchodil ators, or oxygen) for infusion-r elated reactions as needed. Depending on the severity of the infusion-r elated reaction and the required interventi ons, temporaril y or permanentl y discontinu e RUXIENCE. Resume infusion at a minimum 50% reduction in rate after symptoms have resolved.& nbsp;Close ly monitor the following patients: those with preexistin g cardiac or pulmonary conditions , those who experience d prior cardiopulm onary adverse reactions, and those with high numbers of circulatin g malignant cells (greater than or equal to 25,000/mm3 ). &n bsp;BOXED WARNINGS:& nbsp;JESSNI NG: FATAL INFUSION-R ELATED REACTIONS, SEVERE MUCOCUTANE OUS REACTIONS, HEPATITIS B VIRUS REACTIVATI ON and PROGRESSIV E MULTIFOCAL LEUKOENCEP HALOPATHY& nbsp;Infus ion-relate d reactions: Rituximab administra tion can result in serious, including fatal infusion-r elated reactions. Deaths within 24 hours of Rituximab infusion have occurred. Approximat dolores 80% of fatal infusion-r elated reactions occurred in associatio n with the first infusion. Monitor patients closely. Discontinu e Rituximab infusion for severe reactions and provide medical treatment for Grade 3 or 4 infusion-r elated reactions. &amp ;nbsp;Sharon re Mucocutane ous Reactions: Severe, including fatal, mucocutane ous reactions can occur in patients receiving Rituximab. &nbs p;Hepatiti s B Virus (HBV) Reactivati on: HBV reactivati on can occur in patients treated with Rituximab, in some cases resulting in fulminant hepatitis, hepatic failure, and . Screen all patients for HBV infection before treatment initiation , and monitor patients during and after treatment with Rituximab. Discontinu e Rituximab and concomitan t medication s in the event of HBV reactivati on. & nbsp;Progr essive Multifocal Leukoencep halopathy (PML), including fatal PML, can occur in patients receiving Rituximab. &nbs p;
[facility] riTUXimab (RITUXAN) 1,000 mg in NaCl 0.9% (NS) 1,000 mL infusion 12-01 17:00: 00 12-01 20:21 :00 No [id number] 1000mg 1,000 mg, IV Infusion, ONCE, On Tue12/01/22 at 1200, For 1 dose
In itial infusion: start rate at 50 mg/hr. If there is no reaction, increase rate by 50 mg/hr increments every 30 minutes to a maximum of 400 mg/hr.&nbs p;Subseque nt infusions: initiate rate at 100 mg/hr. If infusion is well-sudeep ated, rate may be escalated in 100 mg/hr increments at 30 minute intervals to a maximum of 400 mg/hr.&nbs p;For NHL, from Cycle 2 onward, may give over 90 minutes.&n bsp; Diluted solution may be refrigerat ed for 24 hours.&nbs p; Co mplete administra tion within 8 hours from removal from refrigerat ion. Infu mike-Relat ed Reactions (IRR):&nbs p;Rituxima b products can cause severe, including fatal, infusion-r elated reactions. Severe reactions typically occurred during the first infusion with time to onset of 30-120 minutes.&n bsp; Rituximab product-in duced infusion-r elated reactions and sequelae include urticaria, hypotensio n, angioedema , hypoxia, bronchospa sm, pulmonary infiltrate s, acute respirator y distress syndrome, myocardial infarction , ventricula r fibrillati on, cardiogeni c shock, anaphylact oid events, or .&nbs p;&nbs p;Premedic ate patients with an antihistam ine and acetaminop hen prior to dosing. For patients with Granulomat osis with Polyangiit is (GPA) (Megan's Granulomat osis) and Microscopi c Polyangiit is (MPA), methylpred nisolone 100 mg intravenou sly or its equivalent is recommende d 30 minutes prior to each infusion. [place] [facility] (e.g., glucocorti coids, epinephrin e, bronchodil ators, or oxygen) for infusion-r elated reactions as needed. Depending on the severity of the infusion-r elated reaction and the required interventi ons, temporaril y or permanentl y discontinu e RUXIENCE. Resume infusion at a minimum 50% reduction in rate after symptoms have resolved.& nbsp;Close ly monitor the following patients: those with preexistin g cardiac or pulmonary conditions , those who experience d prior cardiopulm onary adverse reactions, and those with high numbers of circulatin g malignant cells (greater than or equal to 25,000/mm3 ). &n bsp;BOXED WARNINGS:& nbsp;WARNI NG: FATAL INFUSION-R ELATED REACTIONS, SEVERE MUCOCUTANE OUS REACTIONS, HEPATITIS B VIRUS REACTIVATI ON and PROGRESSIV E MULTIFOCAL LEUKOENCEP HALOPATHY& nbsp;Infus ion-relate d reactions: Rituximab administra tion can result in serious, including fatal infusion-r elated reactions. Deaths within 24 hours of Rituximab infusion have occurred. Approximat dolores 80% of fatal infusion-r elated reactions occurred in associatio n with the first infusion. Monitor patients closely. Discontinu e Rituximab infusion for severe reactions and provide medical treatment for Grade 3 or 4 infusion-r elated reactions. &amp ;nbsp;Sharon re Mucocutane ous Reactions: Severe, including fatal, mucocutane ous reactions can occur in patients receiving Rituximab. &nbs p;Hepatiti s B Virus (HBV) Reactivati on: HBV reactivati on can occur in patients treated with Rituximab, in some cases resulting in fulminant hepatitis, hepatic failure, and . Screen all patients for HBV infection before treatment initiation , and monitor patients during and after treatment with Rituximab. Discontinu e Rituximab and concomitan t medication s in the event of HBV reactivati on. & nbsp;Progr essive Multifocal Leukoencep halopathy (PML), including fatal PML, can occur in patients receiving Rituximab. &nbs p;
[facility] riTUXimab (RITUXAN) 1,000 mg in NaCl 0.9% (NS) 1,000 mL infusion 12-01 17:00: 00 12-01 20:21 :00 No [id number] 1000mg 1,000 mg, IV Infusion, ONCE, On Tue12/01/22 at 1200, For 1 dose
In itial infusion: start rate at 50 mg/hr. If there is no reaction, increase rate by 50 mg/hr increments every 30 minutes to a maximum of 400 mg/hr.&nbs p;Subseque nt infusions: initiate rate at 100 mg/hr. If infusion is well-sudeep ated, rate may be escalated in 100 mg/hr increments at 30 minute intervals to a maximum of 400 mg/hr.&nbs p;For NHL, from Cycle 2 onward, may give over 90 minutes.&n bsp; Diluted solution may be refrigerat ed for 24 hours.&nbs p; Co mplete administra tion within 8 hours from removal from refrigerat ion. Infu mike-Relat ed Reactions (IRR):&nbs p;Rituxima b products can cause severe, including fatal, infusion-r elated reactions. Severe reactions typically occurred during the first infusion with time to onset of 30-120 minutes.&n bsp; Rituximab product-in duced infusion-r elated reactions and sequelae include urticaria, hypotensio n, angioedema , hypoxia, bronchospa sm, pulmonary infiltrate s, acute respirator y distress syndrome, myocardial infarction , ventricula r fibrillati on, cardiogeni c shock, anaphylact oid events, or .&nbs p;&nbs p;Premedic ate patients with an antihistam ine and acetaminop hen prior to dosing. For patients with Granulomat osis with Polyangiit is (GPA) (Megan's Granulomat osis) and Microscopi c Polyangiit is (MPA), methylpred nisolone 100 mg intravenou sly or its equivalent is recommende d 30 minutes prior to each infusion. [place] [facility] (e.g., glucocorti coids, epinephrin e, bronchodil ators, or oxygen) for infusion-r elated reactions as needed. Depending on the severity of the infusion-r elated reaction and the required interventi ons, temporaril y or permanentl y discontinu e RUXIENCE. Resume infusion at a minimum 50% reduction in rate after symptoms have resolved.& nbsp;Close ly monitor the following patients: those with preexistin g cardiac or pulmonary conditions , those who experience d prior cardiopulm onary adverse reactions, and those with high numbers of circulatin g malignant cells (greater than or equal to 25,000/mm3 ). &n bsp;BOXED WARNINGS:& nbsp;WARNI NG: FATAL INFUSION-R ELATED REACTIONS, SEVERE MUCOCUTANE OUS REACTIONS, HEPATITIS B VIRUS REACTIVATI ON and PROGRESSIV E MULTIFOCAL LEUKOENCEP HALOPATHY& nbsp;Infus ion-relate d reactions: Rituximab administra tion can result in serious, including fatal infusion-r elated reactions. Deaths within 24 hours of Rituximab infusion have occurred. Approximat dolores 80% of fatal infusion-r elated reactions occurred in associatio n with the first infusion. Monitor patients closely. Discontinu e Rituximab infusion for severe reactions and provide medical treatment for Grade 3 or 4 infusion-r elated reactions. &amp ;nbsp;Sharon re Mucocutane ous Reactions: Severe, including fatal, mucocutane ous reactions can occur in patients receiving Rituximab. &nbs p;Hepatiti s B Virus (HBV) Reactivati on: HBV reactivati on can occur in patients treated with Rituximab, in some cases resulting in fulminant hepatitis, hepatic failure, and . Screen all patients for HBV infection before treatment initiation , and monitor patients during and after treatment with Rituximab. Discontinu e Rituximab and concomitan t medication s in the event of HBV reactivati on. & nbsp;Progr essive Multifocal Leukoencep halopathy (PML), including fatal PML, can occur in patients receiving Rituximab. &nbs p;
[facility] riTUXimab (RITUXAN) 1,000 mg in NaCl 0.9% (NS) 1,000 mL infusion 12-01 17:00: 00 12-01 20:21 :00 No [id number] 1000mg 1,000 mg, IV Infusion, ONCE, On Tue12/01/22 at 1200, For 1 dose
In itial infusion: start rate at 50 mg/hr. If there is no reaction, increase rate by 50 mg/hr increments every 30 minutes to a maximum of 400 mg/hr.&nbs p;Subseque nt infusions: initiate rate at 100 mg/hr. If infusion is well-sudeep ated, rate may be escalated in 100 mg/hr increments at 30 minute intervals to a maximum of 400 mg/hr.&nbs p;For NHL, from Cycle 2 onward, may give over 90 minutes.&n bsp; Diluted solution may be refrigerat ed for 24 hours.&nbs p; Co mplete administra tion within 8 hours from removal from refrigerat ion. Infu mike-Relat ed Reactions (IRR):&nbs p;Rituxima b products can cause severe, including fatal, infusion-r elated reactions. Severe reactions typically occurred during the first infusion with time to onset of 30-120 minutes.&n bsp; Rituximab product-in duced infusion-r elated reactions and sequelae include urticaria, hypotensio n, angioedema , hypoxia, bronchospa sm, pulmonary infiltrate s, acute respirator y distress syndrome, myocardial infarction , ventricula r fibrillati on, cardiogeni c shock, anaphylact oid events, or .&nbs p;&nbs p;Premedic ate patients with an antihistam ine and acetaminop hen prior to dosing. For patients with Granulomat osis with Polyangiit is (GPA) (Megan's Granulomat osis) and Microscopi c Polyangiit is (MPA), methylpred nisolone 100 mg intravenou sly or its equivalent is recommende d 30 minutes prior to each infusion. [place] [facility] (e.g., glucocorti coids, epinephrin e, bronchodil ators, or oxygen) for infusion-r elated reactions as needed. Depending on the severity of the infusion-r elated reaction and the required interventi ons, temporaril y or permanentl y discontinu e RUXIENCE. Resume infusion at a minimum 50% reduction in rate after symptoms have resolved.& nbsp;Close ly monitor the following patients: those with preexistin g cardiac or pulmonary conditions , those who experience d prior cardiopulm onary adverse reactions, and those with high numbers of circulatin g malignant cells (greater than or equal to 25,000/mm3 ). &n bsp;BOXED WARNINGS:& nbsp;PATY NG: FATAL INFUSION-R ELATED REACTIONS, SEVERE MUCOCUTANE OUS REACTIONS, HEPATITIS B VIRUS REACTIVATI ON and PROGRESSIV E MULTIFOCAL LEUKOENCEP HALOPATHY& nbsp;Infus ion-relate d reactions: Rituximab administra tion can result in serious, including fatal infusion-r elated reactions. Deaths within 24 hours of Rituximab infusion have occurred. Approximat dolores 80% of fatal infusion-r elated reactions occurred in associatio n with the first infusion. Monitor patients closely. Discontinu e Rituximab infusion for severe reactions and provide medical treatment for Grade 3 or 4 infusion-r elated reactions. &amp ;nbsp;Sharon re Mucocutane ous Reactions: Severe, including fatal, mucocutane ous reactions can occur in patients receiving Rituximab. &nbs p;Hepatiti s B Virus (HBV) Reactivati on: HBV reactivati on can occur in patients treated with Rituximab, in some cases resulting in fulminant hepatitis, hepatic failure, and . Screen all patients for HBV infection before treatment initiation , and monitor patients during and after treatment with Rituximab. Discontinu e Rituximab and concomitan t medication s in the event of HBV reactivati on. & nbsp;Progr essive Multifocal Leukoencep halopathy (PML), including fatal PML, can occur in patients receiving Rituximab. &nbs p;
[facility] riTUXimab (RITUXAN) 1,000 mg in NaCl 0.9% (NS) 1,000 mL infusion 12-01 17:00: 00 12-01 20:21 :00 No [id number] 1000mg 1,000 mg, IV Infusion, ONCE, On Tue12/01/22 at 1200, For 1 dose
In itial infusion: start rate at 50 mg/hr. If there is no reaction, increase rate by 50 mg/hr increments every 30 minutes to a maximum of 400 mg/hr.&nbs p;Subseque nt infusions: initiate rate at 100 mg/hr. If infusion is well-sudeep ated, rate may be escalated in 100 mg/hr increments at 30 minute intervals to a maximum of 400 mg/hr.&nbs p;For NHL, from Cycle 2 onward, may give over 90 minutes.&n bsp; Diluted solution may be refrigerat ed for 24 hours.&nbs p; Co mplete administra tion within 8 hours from removal from refrigerat ion. Infu mike-Relat ed Reactions (IRR):&nbs p;Rituxima b products can cause severe, including fatal, infusion-r elated reactions. Severe reactions typically occurred during the first infusion with time to onset of 30-120 minutes.&n bsp; Rituximab product-in duced infusion-r elated reactions and sequelae include urticaria, hypotensio n, angioedema , hypoxia, bronchospa sm, pulmonary infiltrate s, acute respirator y distress syndrome, myocardial infarction , ventricula r fibrillati on, cardiogeni c shock, anaphylact oid events, or .&nbs p;&nbs p;Premedic ate patients with an antihistam ine and acetaminop hen prior to dosing. For patients with Granulomat osis with Polyangiit is (GPA) (Megan's Granulomat osis) and Microscopi c Polyangiit is (MPA), methylpred nisolone 100 mg intravenou sly or its equivalent is recommende d 30 minutes prior to each infusion. [place] [facility] (e.g., glucocorti coids, epinephrin e, bronchodil ators, or oxygen) for infusion-r elated reactions as needed. Depending on the severity of the infusion-r elated reaction and the required interventi ons, temporaril y or permanentl y discontinu e RUXIENCE. Resume infusion at a minimum 50% reduction in rate after symptoms have resolved.& nbsp;Close ly monitor the following patients: those with preexistin g cardiac or pulmonary conditions , those who experience d prior cardiopulm onary adverse reactions, and those with high numbers of circulatin g malignant cells (greater than or equal to 25,000/mm3 ). &n bsp;BOXED WARNINGS:& nbsp;PATY NG: FATAL INFUSION-R ELATED REACTIONS, SEVERE MUCOCUTANE OUS REACTIONS, HEPATITIS B VIRUS REACTIVATI ON and PROGRESSIV E MULTIFOCAL LEUKOENCEP HALOPATHY& nbsp;Infus ion-relate d reactions: Rituximab administra tion can result in serious, including fatal infusion-r elated reactions. Deaths within 24 hours of Rituximab infusion have occurred. Approximat dolores 80% of fatal infusion-r elated reactions occurred in associatio n with the first infusion. Monitor patients closely. Discontinu e Rituximab infusion for severe reactions and provide medical treatment for Grade 3 or 4 infusion-r elated reactions. &amp ;nbsp;Sharon re Mucocutane ous Reactions: Severe, including fatal, mucocutane ous reactions can occur in patients receiving Rituximab. &nbs p;Hepatiti s B Virus (HBV) Reactivati on: HBV reactivati on can occur in patients treated with Rituximab, in some cases resulting in fulminant hepatitis, hepatic failure, and . Screen all patients for HBV infection before treatment initiation , and monitor patients during and after treatment with Rituximab. Discontinu e Rituximab and concomitan t medication s in the event of HBV reactivati on. & nbsp;Progr essive Multifocal Leukoencep halopathy (PML), including fatal PML, can occur in patients receiving Rituximab. &nbs p;
[facility] riTUXimab (RITUXAN) 1,000 mg in NaCl 0.9% (NS) 1,000 mL infusion 12-01 17:00: 00 12-01 20:21 :00 No [id number] 1000mg 1,000 mg, IV Infusion, ONCE, On Tue12/01/22 at 1200, For 1 dose
In itial infusion: start rate at 50 mg/hr. If there is no reaction, increase rate by 50 mg/hr increments every 30 minutes to a maximum of 400 mg/hr.&nbs p;Subseque nt infusions: initiate rate at 100 mg/hr. If infusion is well-sudeep ated, rate may be escalated in 100 mg/hr increments at 30 minute intervals to a maximum of 400 mg/hr.&nbs p;For NHL, from Cycle 2 onward, may give over 90 minutes.&n bsp; Diluted solution may be refrigerat ed for 24 hours.&nbs p; Co mplete administra tion within 8 hours from removal from refrigerat ion. Infu mike-Relat ed Reactions (IRR):&nbs p;Rituxima b products can cause severe, including fatal, infusion-r elated reactions. Severe reactions typically occurred during the first infusion with time to onset of 30-120 minutes.&n bsp; Rituximab product-in duced infusion-r elated reactions and sequelae include urticaria, hypotensio n, angioedema , hypoxia, bronchospa sm, pulmonary infiltrate s, acute respirator y distress syndrome, myocardial infarction , ventricula r fibrillati on, cardiogeni c shock, anaphylact oid events, or .&nbs p;&nbs p;Premedic ate patients with an antihistam ine and acetaminop hen prior to dosing. For patients with Granulomat osis with Polyangiit is (GPA) (Megan's Granulomat osis) and Microscopi c Polyangiit is (MPA), methylpred nisolone 100 mg intravenou sly or its equivalent is recommende d 30 minutes prior to each infusion. [place] [facility] (e.g., glucocorti coids, epinephrin e, bronchodil ators, or oxygen) for infusion-r elated reactions as needed. Depending on the severity of the infusion-r elated reaction and the required interventi ons, temporaril y or permanentl y discontinu e RUXIENCE. Resume infusion at a minimum 50% reduction in rate after symptoms have resolved.& nbsp;Close ly monitor the following patients: those with preexistin g cardiac or pulmonary conditions , those who experience d prior cardiopulm onary adverse reactions, and those with high numbers of circulatin g malignant cells (greater than or equal to 25,000/mm3 ). &n bsp;BOXED WARNINGS:& nbsp;WARNI NG: FATAL INFUSION-R ELATED REACTIONS, SEVERE MUCOCUTANE OUS REACTIONS, HEPATITIS B VIRUS REACTIVATI ON and PROGRESSIV E MULTIFOCAL LEUKOENCEP HALOPATHY& nbsp;Infus ion-relate d reactions: Rituximab administra tion can result in serious, including fatal infusion-r elated reactions. Deaths within 24 hours of Rituximab infusion have occurred. Approximat dolores 80% of fatal infusion-r elated reactions occurred in associatio n with the first infusion. Monitor patients closely. Discontinu e Rituximab infusion for severe reactions and provide medical treatment for Grade 3 or 4 infusion-r elated reactions. &amp ;nbsp;Sharon re Mucocutane ous Reactions: Severe, including fatal, mucocutane ous reactions can occur in patients receiving Rituximab. &nbs p;Hepatiti s B Virus (HBV) Reactivati on: HBV reactivati on can occur in patients treated with Rituximab, in some cases resulting in fulminant hepatitis, hepatic failure, and . Screen all patients for HBV infection before treatment initiation , and monitor patients during and after treatment with Rituximab. Discontinu e Rituximab and concomitan t medication s in the event of HBV reactivati on. & nbsp;Progr essive Multifocal Leukoencep halopathy (PML), including fatal PML, can occur in patients receiving Rituximab. &nbs p;
[facility] riTUXimab (RITUXAN) 1,000 mg in NaCl 0.9% (NS) 1,000 mL infusion 12-01 17:00: 00 12-01 20:21 :00 No [id number] 1000mg 1,000 mg, IV Infusion, ONCE, On Tue12/01/22 at 1200, For 1 dose
In itial infusion: start rate at 50 mg/hr. If there is no reaction, increase rate by 50 mg/hr increments every 30 minutes to a maximum of 400 mg/hr.&nbs p;Subseque nt infusions: initiate rate at 100 mg/hr. If infusion is well-sudeep ated, rate may be escalated in 100 mg/hr increments at 30 minute intervals to a maximum of 400 mg/hr.&nbs p;For NHL, from Cycle 2 onward, may give over 90 minutes.&n bsp; Diluted solution may be refrigerat ed for 24 hours.&nbs p; Co mplete administra tion within 8 hours from removal from refrigerat ion. Infu mike-Relat ed Reactions (IRR):&nbs p;Rituxima b products can cause severe, including fatal, infusion-r elated reactions. Severe reactions typically occurred during the first infusion with time to onset of 30-120 minutes.&n bsp; Rituximab product-in duced infusion-r elated reactions and sequelae include urticaria, hypotensio n, angioedema , hypoxia, bronchospa sm, pulmonary infiltrate s, acute respirator y distress syndrome, myocardial infarction , ventricula r fibrillati on, cardiogeni c shock, anaphylact oid events, or .&nbs p;&nbs p;Premedic ate patients with an antihistam ine and acetaminop hen prior to dosing. For patients with Granulomat osis with Polyangiit is (GPA) (Megan's Granulomat osis) and Microscopi c Polyangiit is (MPA), methylpred nisolone 100 mg intravenou sly or its equivalent is recommende d 30 minutes prior to each infusion. [place] [facility] (e.g., glucocorti coids, epinephrin e, bronchodil ators, or oxygen) for infusion-r elated reactions as needed. Depending on the severity of the infusion-r elated reaction and the required interventi ons, temporaril y or permanentl y discontinu e RUXIENCE. Resume infusion at a minimum 50% reduction in rate after symptoms have resolved.& nbsp;Close ly monitor the following patients: those with preexistin g cardiac or pulmonary conditions , those who experience d prior cardiopulm onary adverse reactions, and those with high numbers of circulatin g malignant cells (greater than or equal to 25,000/mm3 ). &n bsp;BOXED WARNINGS:& nbsp;WARNI NG: FATAL INFUSION-R ELATED REACTIONS, SEVERE MUCOCUTANE OUS REACTIONS, HEPATITIS B VIRUS REACTIVATI ON and PROGRESSIV E MULTIFOCAL LEUKOENCEP HALOPATHY& nbsp;Infus ion-relate d reactions: Rituximab administra tion can result in serious, including fatal infusion-r elated reactions. Deaths within 24 hours of Rituximab infusion have occurred. Approximat dolores 80% of fatal infusion-r elated reactions occurred in associatio n with the first infusion. Monitor patients closely. Discontinu e Rituximab infusion for severe reactions and provide medical treatment for Grade 3 or 4 infusion-r elated reactions. &amp ;nbsp;Sharon re Mucocutane ous Reactions: Severe, including fatal, mucocutane ous reactions can occur in patients receiving Rituximab. &nbs p;Hepatiti s B Virus (HBV) Reactivati on: HBV reactivati on can occur in patients treated with Rituximab, in some cases resulting in fulminant hepatitis, hepatic failure, and . Screen all patients for HBV infection before treatment initiation , and monitor patients during and after treatment with Rituximab. Discontinu e Rituximab and concomitan t medication s in the event of HBV reactivati on. & nbsp;Progr essive Multifocal Leukoencep halopathy (PML), including fatal PML, can occur in patients receiving Rituximab. &nbs p;
[facility] riTUXimab (RITUXAN) 1,000 mg in NaCl 0.9% (NS) 1,000 mL infusion 12-01 17:00: 00 12-01 20:21 :00 No [id number] 1000mg 1,000 mg, IV Infusion, ONCE, On Tue12/01/22 at 1200, For 1 dose
In itial infusion: start rate at 50 mg/hr. If there is no reaction, increase rate by 50 mg/hr increments every 30 minutes to a maximum of 400 mg/hr.&nbs p;Subseque nt infusions: initiate rate at 100 mg/hr. If infusion is well-sudeep ated, rate may be escalated in 100 mg/hr increments at 30 minute intervals to a maximum of 400 mg/hr.&nbs p;For NHL, from Cycle 2 onward, may give over 90 minutes.&n bsp; Diluted solution may be refrigerat ed for 24 hours.&nbs p; Co mplete administra tion within 8 hours from removal from refrigerat ion. Infu mike-Relat ed Reactions (IRR):&nbs p;Rituxima b products can cause severe, including fatal, infusion-r elated reactions. Severe reactions typically occurred during the first infusion with time to onset of 30-120 minutes.&n bsp; Rituximab product-in duced infusion-r elated reactions and sequelae include urticaria, hypotensio n, angioedema , hypoxia, bronchospa sm, pulmonary infiltrate s, acute respirator y distress syndrome, myocardial infarction , ventricula r fibrillati on, cardiogeni c shock, anaphylact oid events, or .&nbs p;&nbs p;Premedic ate patients with an antihistam ine and acetaminop hen prior to dosing. For patients with Granulomat osis with Polyangiit is (GPA) (Megan's Granulomat osis) and Microscopi c Polyangiit is (MPA), methylpred nisolone 100 mg intravenou sly or its equivalent is recommende d 30 minutes prior to each infusion. [place] [facility] (e.g., glucocorti coids, epinephrin e, bronchodil ators, or oxygen) for infusion-r elated reactions as needed. Depending on the severity of the infusion-r elated reaction and the required interventi ons, temporaril y or permanentl y discontinu e RUXIENCE. Resume infusion at a minimum 50% reduction in rate after symptoms have resolved.& nbsp;Close ly monitor the following patients: those with preexistin g cardiac or pulmonary conditions , those who experience d prior cardiopulm onary adverse reactions, and those with high numbers of circulatin g malignant cells (greater than or equal to 25,000/mm3 ). &n bsp;BOXED WARNINGS:& nbsp;WARNI NG: FATAL INFUSION-R ELATED REACTIONS, SEVERE MUCOCUTANE OUS REACTIONS, HEPATITIS B VIRUS REACTIVATI ON and PROGRESSIV E MULTIFOCAL LEUKOENCEP HALOPATHY& nbsp;Infus ion-relate d reactions: Rituximab administra tion can result in serious, including fatal infusion-r elated reactions. Deaths within 24 hours of Rituximab infusion have occurred. Approximat dolores 80% of fatal infusion-r elated reactions occurred in associatio n with the first infusion. Monitor patients closely. Discontinu e Rituximab infusion for severe reactions and provide medical treatment for Grade 3 or 4 infusion-r elated reactions. &amp ;nbsp;Sharon re Mucocutane ous Reactions: Severe, including fatal, mucocutane ous reactions can occur in patients receiving Rituximab. &nbs p;Hepatiti s B Virus (HBV) Reactivati on: HBV reactivati on can occur in patients treated with Rituximab, in some cases resulting in fulminant hepatitis, hepatic failure, and . Screen all patients for HBV infection before treatment initiation , and monitor patients during and after treatment with Rituximab. Discontinu e Rituximab and concomitan t medication s in the event of HBV reactivati on. & nbsp;Progr essive Multifocal Leukoencep halopathy (PML), including fatal PML, can occur in patients receiving Rituximab. &nbs p;
[facility] acetaminoph en (TYLENOL) tablet 650 mg 3-0 -10 14:15: 00 12-01 14:06 :00 No [id number] 650mg 650 mg, Oral, ONCE, 1 dose, On Tue12/01/22 at 0915, Routine [facility] diphenhydrA MINE (BENADRYL) tablet 25 mg 2022-0 12-01 14:15: 00 12-01 14:06 :00 No [id number] 25mg 25 mg, Oral, ONCE, 1 dose, On Tue12/01/22 at 0915, Routine [facility] acetaminoph en (TYLENOL) tablet 650 mg 2022-12-01 14:15: 00 12-01 14:06 :00 No [id number] 650mg 650 mg, Oral, ONCE, 1 dose, On Tue12/01/22 at 0915, Routine [facility] diphenhydrA MINE (BENADRYL) tablet 25 mg 2022-0 12-01 14:15: 00 12-01 14:06 :00 No [id number] 25mg 25 mg, Oral, ONCE, 1 dose, On Tue12/01/22 at 0915, Routine [facility] acetaminoph en (TYLENOL) tablet 650 mg 2022-0 12-01 14:15: 00 12-01 14:06 :00 No [id number] 650mg 650 mg, Oral, ONCE, 1 dose, On Tue12/01/22 at 0915, Routine [facility] diphenhydrA MINE (BENADRYL) tablet 25 mg 3-0 12-01 14:15: 00 12-01 14:06 :00 No [id number] 25mg 25 mg, Oral, ONCE, 1 dose, On Tue12/01/22 at 0915, Routine [facility] acetaminoph en (TYLENOL) tablet 650 mg 2023-0 5-10 14:15: 00 12-01 14:06 :00 No [id number] 650mg 650 mg, Oral, ONCE, 1 dose, On Tue12/01/22 at 0915, Routine [facility] diphenhydrA MINE (BENADRYL) tablet 25 mg 3-0 5-10 14:15: 00 12-01 14:06 :00 No [id number] 25mg 25 mg, Oral, ONCE, 1 dose, On Tue12/01/22 at 0915, Routine [facility] acetaminoph en (TYLENOL) tablet 650 mg 3-0 10 14:15: 00 12-01 14:06 :00 No [id number] 650mg 650 mg, Oral, ONCE, 1 dose, On Tue12/01/22 at 0915, Routine [facility] diphenhydrA MINE (BENADRYL) tablet 25 mg 2022-0 12-01 14:15: 00 12-01 14:06 :00 No [id number] 25mg 25 mg, Oral, ONCE, 1 dose, On Tue12/01/22 at 0915, Routine [facility] acetaminoph en (TYLENOL) tablet 650 mg 2022-0 12-01 14:15: 00 12-01 14:06 :00 No [id number] 650mg 650 mg, Oral, ONCE, 1 dose, On Tue12/01/22 at 0915, Routine [facility] diphenhydrA MINE (BENADRYL) tablet 25 mg 3-0 10 14:15: 00 12-01 14:06 :00 No [id number] 25mg 25 mg, Oral, ONCE, 1 dose, On Tue12/01/22 at 0915, Routine [facility] acetaminoph en (TYLENOL) tablet 650 mg 3-0 12-01 14:15: 00 12-01 14:06 :00 No [id number] 650mg 650 mg, Oral, ONCE, 1 dose, On Tue12/01/22 at 0915, Routine [facility] diphenhydrA MINE (BENADRYL) tablet 25 mg 2022-0 5-10 14:15: 00 12-01 14:06 :00 No [id number] 25mg 25 mg, Oral, ONCE, 1 dose, On Tue12/01/22 at 0915, Routine [facility] acetaminoph en (TYLENOL) tablet 650 mg 3-0 5-10 14:15: 00 12-01 14:06 :00 No [id number] 650mg 650 mg, Oral, ONCE, 1 dose, On Tue12/01/22 at 0915, Routine [facility] diphenhydrA MINE (BENADRYL) tablet 25 mg 2022-0 12-01 14:15: 00 12-01 14:06 :00 No [id number] 25mg 25 mg, Oral, ONCE, 1 dose, On Tue12/01/22 at 0915, Routine [facility] acetaminoph en (TYLENOL) tablet 650 mg 2022-0 12-01 14:15: 00 12-01 14:06 :00 No [id number] 650mg 650 mg, Oral, ONCE, 1 dose, On Tue12/01/22 at 0915, Routine [facility] diphenhydrA MINE (BENADRYL) tablet 25 mg 2022-0 12-01 14:15: 00 12-01 14:06 :00 No [id number] 25mg 25 mg, Oral, ONCE, 1 dose, On Tue12/01/22 at 0915, Routine [facility] acetaminoph en (TYLENOL) tablet 650 mg 2022-0 10 14:15: 00 12-01 14:06 :00 No [id number] 650mg 650 mg, Oral, ONCE, 1 dose, On Tue12/01/22 at 0915, Routine [facility] diphenhydrA MINE (BENADRYL) tablet 25 mg 2022-0 10 14:15: 00 12-01 14:06 :00 No [id number] 25mg 25 mg, Oral, ONCE, 1 dose, On Tue12/01/22 at 0915, Routine [facility] acetaminoph en (TYLENOL) tablet 650 mg 2022-0 12-01 14:15: 12-01 14:06 :00 No [id number] 650mg 650 mg, Oral, ONCE, 1 dose, On Tue12/01/22 at 0915, Routine [facility] diphenhydrA MINE (BENADRYL) tablet 25 mg 3-0 -10 14:15: 00 12-01 14:06 :00 No [id number] 25mg 25 mg, Oral, ONCE, 1 dose, On Tue12/01/22 at 0915, Routine [facility] acetaminoph en (TYLENOL) tablet 650 mg 3-0 12-01 14:15: 00 12-01 14:06 :00 No [id number] 650mg 650 mg, Oral, ONCE, 1 dose, On Tue12/01/22 at 0915, Routine [facility] diphenhydrA MINE (BENADRYL) tablet 25 mg 2022-0 12-01 14:15: 00 12-01 14:06 :00 No [id number] 25mg 25 mg, Oral, ONCE, 1 dose, On Tue12/01/22 at 0915, Routine [facility] acetaminoph en (TYLENOL) tablet 650 mg 2022-0 12-01 14:15: 00 12-01 14:06 :00 No [id number] 650mg 650 mg, Oral, ONCE, 1 dose, On Tue12/01/22 at 0915, Routine [facility] diphenhydrA MINE (BENADRYL) tablet 25 mg 3-0 -10 14:15: 00 12-01 14:06 :00 No [id number] 25mg 25 mg, Oral, ONCE, 1 dose, On Tue12/01/22 at 0915, Routine [facility] acetaminoph en (TYLENOL) tablet 650 mg 3-0 12-01 14:15: 00 12-01 14:06 :00 No [id number] 650mg 650 mg, Oral, ONCE, 1 dose, On Tue12/01/22 at 0915, Routine [facility] diphenhydrA MINE (BENADRYL) tablet 25 mg 3-0 10 14:15: 00 12-01 14:06 :00 No [id number] 25mg 25 mg, Oral, ONCE, 1 dose, On Tue12/01/22 at 0915, Routine [facility] acetaminoph en (TYLENOL) tablet 650 mg 12-01 14:15: 00 12-01 14:06 :00 No [id number] 650mg 650 mg, Oral, ONCE, 1 dose, On Tue12/01/22 at 0915, Routine [facility] diphenhydrA MINE (BENADRYL) tablet 25 mg 12-01 14:15: 00 12-01 14:06 :00 No [id number] 25mg 25 mg, Oral, ONCE, 1 dose, On Tue12/01/22 at 0915, Routine [facility] acetaminoph en (TYLENOL) tablet 650 mg 12-01 14:15: 00 12-01 14:06 :00 No [id number] 650mg 650 mg, Oral, ONCE, 1 dose, On Tue12/01/22 at 0915, Routine [facility] diphenhydrA MINE (BENADRYL) tablet 25 mg 12-01 14:15: 00 12-01 14:06 :00 No [id number] 25mg 25 mg, Oral, ONCE, 1 dose, On Tue12/01/22 at 0915, Routine [facility] acetaminoph en (TYLENOL) tablet 650 mg 12-01 14:15: 00 12-01 14:06 :00 No [id number] 650mg 650 mg, Oral, ONCE, 1 dose, On Tue12/01/22 at 0915, Routine [facility] diphenhydrA MINE (BENADRYL) tablet 25 mg 12-01 14:15: 12-01 14:06 :00 No [id number] 25mg 25 mg, Oral, ONCE, 1 dose, On Tue12/01/22 at 0915, Routine [facility] fluticasone propionate (FLONASE ALLERGY RELIEF) 50 mcg/actuati on nasal spray 4-26 00:00: 00 Yes [id number] 1{spray } Use 1 Somis in each nostril in the morning and 1 Somis in the evening. [facility] glyBURIDE 5 mg tablet 0 11-17 00:00: 00 Yes [id number] 5mg Take 1 tablet by mouth daily with breakfast. [facility] fluticasone propionate (FLONASE ALLERGY RELIEF) 50 mcg/actuati on nasal spray 11-17 00:00: 00 Yes [id number] 1{spray } Use 1 Somis in each nostril in the morning and 1 Somis in the evening. [facility] glyBURIDE 5 mg tablet 0 11-17 00:00: 00 Yes [id number] 5mg Take 1 tablet by mouth daily with breakfast. [facility] fluticasone propionate (FLONASE ALLERGY RELIEF) 50 mcg/actuati on nasal spray 11-17 00:00: 00 Yes [id number] 1{spray } Use 1 Somis in each nostril in the morning and 1 Somis in the evening. [facility] glyBURIDE 5 mg tablet 0 11-17 00:00: 00 Yes [id number] 5mg Take 1 tablet by mouth daily with breakfast. [facility] fluticasone propionate (FLONASE ALLERGY RELIEF) 50 mcg/actuati on nasal spray 0 11-17 00:00: 00 Yes [id number] 1{spray } Use 1 Somis in each nostril in the morning and 1 Somis in the evening. [facility] glyBURIDE 5 mg tablet 0 11-17 00:00: 00 Yes [id number] 5mg Take 1 tablet by mouth daily with breakfast. [facility] fluticasone propionate (FLONASE ALLERGY RELIEF) 50 mcg/actuati on nasal spray 0 11-17 00:00: 00 Yes [id number] 1{spray } Use 1 Somis in each nostril in the morning and 1 Somis in the evening. [facility] glyBURIDE 5 mg tablet 2022-0 11-17 00:00: 00 Yes [id number] 5mg Take 1 tablet by mouth daily with breakfast. [facility] fluticasone propionate (FLONASE ALLERGY RELIEF) 50 mcg/actuati on nasal spray 0 11-17 00:00: 00 Yes [id number] 1{spray } Use 1 Somis in each nostril in the morning and 1 Somis in the evening. [facility] glyBURIDE 5 mg tablet 2022-0 11-17 00:00: 00 Yes [id number] 5mg Take 1 tablet by mouth daily with breakfast. [facility] fluticasone propionate (FLONASE ALLERGY RELIEF) 50 mcg/actuati on nasal spray 2022-0 11-17 00:00: 00 Yes [id number] 1{spray } Use 1 Somis in each nostril in the morning and 1 Somis in the evening. [facility] glyBURIDE 5 mg tablet 0 11-17 00:00: 00 Yes [id number] 5mg Take 1 tablet by mouth daily with breakfast. [facility] fluticasone propionate (FLONASE ALLERGY RELIEF) 50 mcg/actuati on nasal spray 0 11-17 00:00: 00 Yes [id number] 1{spray } Use 1 Somis in each nostril in the morning and 1 Somis in the evening. [facility] glyBURIDE 5 mg tablet 2022-0 11-17 00:00: 00 Yes [id number] 5mg Take 1 tablet by mouth daily with breakfast. [facility] fluticasone propionate (FLONASE ALLERGY RELIEF) 50 mcg/actuati on nasal spray 0 11-17 00:00: 00 Yes [id number] 1{spray } Use 1 Somis in each nostril in the morning and 1 Somis in the evening. [facility] glyBURIDE 5 mg tablet 0 11-17 00:00: 00 Yes [id number] 5mg Take 1 tablet by mouth daily with breakfast. [facility] fluticasone propionate (FLONASE ALLERGY RELIEF) 50 mcg/actuati on nasal spray 2022-0 11-17 00:00: 00 Yes [id number] 1{spray } Use 1 Somis in each nostril in the morning and 1 Somis in the evening. [facility] glyBURIDE 5 mg tablet 0 11-17 00:00: 00 Yes [id number] 5mg Take 1 tablet by mouth daily with breakfast. [facility] fluticasone propionate (FLONASE ALLERGY RELIEF) 50 mcg/actuati on nasal spray 0 11-17 00:00: 00 Yes [id number] 1{spray } Use 1 Somis in each nostril in the morning and 1 Somis in the evening. [facility] glyBURIDE 5 mg tablet 11-17 00:00: 00 Yes [id number] 5mg Take 1 tablet by mouth daily with breakfast. [facility] fluticasone propionate (FLONASE ALLERGY RELIEF) 50 mcg/actuati on nasal spray 11-17 00:00: 00 Yes [id number] 1{spray } Use 1 Somis in each nostril in the morning and 1 Somis in the evening. [facility] glyBURIDE 5 mg tablet 11-17 00:00: 00 Yes [id number] 5mg Take 1 tablet by mouth daily with breakfast. [facility] fluticasone propionate (FLONASE ALLERGY RELIEF) 50 mcg/actuati on nasal spray 11-17 00:00: 00 Yes [id number] 1{spray } Use 1 Somis in each nostril in the morning and 1 Somis in the evening. [facility] glyBURIDE 5 mg tablet 11-17 00:00: 00 Yes [id number] 5mg Take 1 tablet by mouth daily with breakfast. [facility] fluticasone propionate (FLONASE ALLERGY RELIEF) 50 mcg/actuati on nasal spray 11-17 00:00: 00 Yes [id number] 1{spray } Use 1 Somis in each nostril in the morning and 1 Somis in the evening. [facility] glyBURIDE 5 mg tablet 0 11-17 00:00: 00 Yes [id number] 5mg Take 1 tablet by mouth daily with breakfast. [facility] fluticasone propionate (FLONASE ALLERGY RELIEF) 50 mcg/actuati on nasal spray 0 11-17 00:00: 00 Yes [id number] 1{spray } Use 1 Somis in each nostril in the morning and 1 Somis in the evening. [facility] glyBURIDE 5 mg tablet 0 11-17 00:00: 00 Yes [id number] 5mg Take 1 tablet by mouth daily with breakfast. [facility] fluticasone propionate (FLONASE ALLERGY RELIEF) 50 mcg/actuati on nasal spray 11-17 00:00: 00 Yes [id number] 1{spray } Use 1 Somis in each nostril in the morning and 1 Somis in the evening. [facility] glyBURIDE 5 mg tablet 0 11-17 00:00: 00 Yes [id number] 5mg Take 1 tablet by mouth daily with breakfast. [facility] fluticasone propionate (FLONASE ALLERGY RELIEF) 50 mcg/actuati on nasal spray 0 11-17 00:00: 00 Yes [id number] 1{spray } Use 1 Somis in each nostril in the morning and 1 Somis in the evening. [facility] glyBURIDE 5 mg tablet 0 11-17 00:00: 00 Yes [id number] 5mg Take 1 tablet by mouth daily with breakfast. [facility] fluticasone propionate (FLONASE ALLERGY RELIEF) 50 mcg/actuati on nasal spray 0 11-17 00:00: 00 Yes [id number] 1{spray } Use 1 Somis in each nostril in the morning and 1 Somis in the evening. [facility] glyBURIDE 5 mg tablet 0 11-17 00:00: 00 Yes [id number] 5mg Take 1 tablet by mouth daily with breakfast. [facility] fluticasone propionate (FLONASE ALLERGY RELIEF) 50 mcg/actuati on nasal spray 0 11-17 00:00: 00 Yes [id number] 1{spray } Use 1 Somis in each nostril in the morning and 1 Somis in the evening. [facility] glyBURIDE 5 mg tablet 2022-0 11-17 00:00: 00 Yes [id number] 5mg Take 1 tablet by mouth daily with breakfast. [facility] fluticasone propionate (FLONASE ALLERGY RELIEF) 50 mcg/actuati on nasal spray 0 11-17 00:00: 00 Yes [id number] 1{spray } Use 1 Somis in each nostril in the morning and 1 Somis in the evening. [facility] glyBURIDE 5 mg tablet 0 11-17 00:00: 00 Yes [id number] 5mg Take 1 tablet by mouth daily with breakfast. [facility] fluticasone propionate (FLONASE ALLERGY RELIEF) 50 mcg/actuati on nasal spray 0 11-17 00:00: 00 Yes [id number] 1{spray } Use 1 Somis in each nostril in the morning and 1 Somis in the evening. [facility] glyBURIDE 5 mg tablet 0 11-17 00:00: 00 Yes [id number] 5mg Take 1 tablet by mouth daily with breakfast. [facility] fluticasone propionate (FLONASE ALLERGY RELIEF) 50 mcg/actuati on nasal spray 0 11-17 00:00: 00 Yes [id number] 1{spray } Use 1 Somis in each nostril in the morning and 1 Somis in the evening. [facility] glyBURIDE 5 mg tablet 0 11-17 00:00: 00 Yes [id number] 5mg Take 1 tablet by mouth daily with breakfast. [facility] fluticasone propionate (FLONASE ALLERGY RELIEF) 50 mcg/actuati on nasal spray 0 11-17 00:00: 00 Yes [id number] 1{spray } Use 1 Somis in each nostril in the morning and 1 Somis in the evening. [facility] glyBURIDE 5 mg tablet 0 11-17 00:00: 00 Yes [id number] 5mg Take 1 tablet by mouth daily with breakfast. [facility] fluticasone propionate (FLONASE ALLERGY RELIEF) 50 mcg/actuati on nasal spray 0 11-17 00:00: 00 Yes [id number] 1{spray } Use 1 Somis in each nostril in the morning and 1 Somis in the evening. [facility] glyBURIDE 5 mg tablet 11-17 00:00: 00 Yes [id number] 5mg Take 1 tablet by mouth daily with breakfast. [facility] fluticasone propionate (FLONASE ALLERGY RELIEF) 50 mcg/actuati on nasal spray 11-17 00:00: 00 Yes [id number] 1{spray } Use 1 Somis in each nostril in the morning and 1 Somis in the evening. [facility] fluticasone propionate (FLONASE ALLERGY RELIEF) 50 mcg/actuati on nasal spray 11-17 00:00: 00 Yes [id number] 1{spray } Use 1 Somis in each nostril in the morning and 1 Somis in the evening. [facility] fluticasone propionate (FLONASE ALLERGY RELIEF) 50 mcg/actuati on nasal spray 11-17 00:00: 00 Yes [id number] 1{spray } Use 1 Somis in each nostril in the morning and 1 Somis in the evening. [facility] fluticasone propionate (FLONASE ALLERGY RELIEF) 50 mcg/actuati on nasal spray 11-17 00:00: 00 Yes [id number] 1{spray } Use 1 Somis in each nostril in the morning and 1 Somis in the evening. [facility] fluticasone propionate (FLONASE ALLERGY RELIEF) 50 mcg/actuati on nasal spray 11-17 00:00: 00 Yes [id number] 1{spray } Use 1 Somis in each nostril in the morning and 1 Somis in the evening. [facility] fluticasone propionate (FLONASE ALLERGY RELIEF) 50 mcg/actuati on nasal spray 11-17 00:00: 00 Yes [id number] 1{spray } Use 1 Somis in each nostril in the morning and 1 Somis in the evening. [facility] fluticasone propionate (FLONASE ALLERGY RELIEF) 50 mcg/actuati on nasal spray 11-17 00:00: 00 Yes [id number] 1{spray } Use 1 Somis in each nostril in the morning and 1 Somis in the evening. [facility] fluticasone propionate (FLONASE ALLERGY RELIEF) 50 mcg/actuati on nasal spray 11-17 00:00: 00 Yes [id number] 1{spray } Use 1 Somis in each nostril in the morning and 1 Somis in the evening. [facility] fluticasone propionate (FLONASE ALLERGY RELIEF) 50 mcg/actuati on nasal spray 11-17 00:00: 00 Yes [id number] 1{spray } Use 1 Somis in each nostril in the morning and 1 Somis in the evening. [facility] fluticasone propionate (FLONASE ALLERGY RELIEF) 50 mcg/actuati on nasal spray 11-17 00:00: 00 Yes [id number] 1{spray } Use 1 Somis in each nostril in the morning and 1 Somis in the evening. [facility] fluticasone propionate (FLONASE ALLERGY RELIEF) 50 mcg/actuati on nasal spray 11-17 00:00: 00 Yes [id number] 1{spray } Use 1 Somis in each nostril in the morning and 1 Somis in the evening. [facility] fluticasone propionate (FLONASE ALLERGY RELIEF) 50 mcg/actuati on nasal spray 11-17 00:00: 00 Yes [id number] 1{spray } Use 1 Somis in each nostril in the morning and 1 Somis in the evening. [facility] fluticasone propionate (FLONASE ALLERGY RELIEF) 50 mcg/actuati on nasal spray 11-17 00:00: 00 Yes [id number] 1{spray } Use 1 Somis in each nostril in the morning and 1 Somis in the evening. [facility] fluticasone propionate (FLONASE ALLERGY RELIEF) 50 mcg/actuati on nasal spray 11-17 00:00: 00 Yes [id number] 1{spray } Use 1 Somis in each nostril in the morning and 1 Somis in the evening. [facility] fluticasone propionate (FLONASE ALLERGY RELIEF) 50 mcg/actuati on nasal spray 11-17 00:00: 00 Yes [id number] 1{spray } Use 1 Somis in each nostril in the morning and 1 Somis in the evening. [facility] fluticasone propionate (FLONASE ALLERGY RELIEF) 50 mcg/actuati on nasal spray 11-17 00:00: 00 Yes [id number] 1{spray } Use 1 Somis in each nostril in the morning and 1 Somis in the evening. [facility] fluticasone propionate (FLONASE ALLERGY RELIEF) 50 mcg/actuati on nasal spray 11-17 00:00: 00 Yes [id number] 1{spray } Use 1 Somis in each nostril in the morning and 1 Somis in the evening. [facility] fluticasone propionate (FLONASE ALLERGY RELIEF) 50 mcg/actuati on nasal spray 11-17 00:00: 00 Yes [id number] 1{spray } Use 1 Somis in each nostril in the morning and 1 Somis in the evening. [facility] fluticasone propionate (FLONASE ALLERGY RELIEF) 50 mcg/actuati on nasal spray 11-17 00:00: 00 Yes [id number] 1{spray } Use 1 Somis in each nostril in the morning and 1 Somis in the evening. [facility] fluticasone propionate (FLONASE ALLERGY RELIEF) 50 mcg/actuati on nasal spray 11-17 00:00: 00 Yes [id number] 1{spray } Use 1 Somis in each nostril in the morning and 1 Somis in the evening. [facility] fluticasone propionate (FLONASE ALLERGY RELIEF) 50 mcg/actuati on nasal spray 11-17 00:00: 00 Yes [id number] 1{spray } Use 1 Somis in each nostril in the morning and 1 Somis in the evening. [facility] fluticasone propionate (FLONASE ALLERGY RELIEF) 50 mcg/actuati on nasal spray 11-17 00:00: 00 Yes [id number] 1{spray } Use 1 Somis in each nostril in the morning and 1 Somis in the evening. [facility] fluticasone propionate (FLONASE ALLERGY RELIEF) 50 mcg/actuati on nasal spray 11-17 00:00: 00 Yes [id number] 1{spray } Use 1 Somis in each nostril in the morning and 1 Somis in the evening. [facility] fluticasone propionate (FLONASE ALLERGY RELIEF) 50 mcg/actuati on nasal spray 11-17 00:00: 00 Yes [id number] 1{spray } Use 1 Somis in each nostril in the morning and 1 Somis in the evening. [facility] omega-3s-dh a-epa-fish oil-D3 (FISH OIL-VIT D3) 360 mg-1,200 mg -1,000 unit Cap 10-26 15:16: 05 Yes Take by mouth. [facility] MULTIVITS-M INERALS/FA/ LYCOPENE (ONE-A-DAY MEN'S MULTIVITAMI N ORAL) 10-26 15:16: 05 Yes Take by mouth. [facility] POTASSIUM-9 9 ORAL 10-26 15:16: 05 Yes 99mg Take 99 mg by mouth daily. [facility] omega-3s-dh a-epa-fish oil-D3 (FISH OIL-VIT D3) 360 mg-1,200 mg -1,000 unit Cap 10-26 15:16: 05 Yes Take by mouth. [facility] MULTIVITS-M INERALS/FA/ LYCOPENE (ONE-A-DAY MEN'S MULTIVITAMI N ORAL) 10-26 15:16: 05 Yes Take by mouth. [facility] POTASSIUM-9 9 ORAL 10-26 15:16: 05 Yes 99mg Take 99 mg by mouth daily. [facility] omega-3s-dh a-epa-fish oil-D3 (FISH OIL-VIT D3) 360 mg-1,200 mg -1,000 unit Cap 10-26 15:16: 05 Yes Take by mouth. [facility] MULTIVITS-M INERALS/FA/ LYCOPENE (ONE-A-DAY MEN'S MULTIVITAMI N ORAL) 10-26 15:16: 05 Yes Take by mouth. [facility] POTASSIUM-9 9 ORAL 10-26 15:16: 05 Yes 99mg Take 99 mg by mouth daily. [facility] omega-3s-dh a-epa-fish oil-D3 (FISH OIL-VIT D3) 360 mg-1,200 mg -1,000 unit Cap - 15:16: 05 Yes Take by mouth. [facility] MULTIVITS-M INERALS/FA/ LYCOPENE (ONE-A-DAY MEN'S MULTIVITAMI N ORAL) - 15:16: 05 Yes Take by mouth. [facility] POTASSIUM-9 9 ORAL 10-26 15:16: 05 Yes 99mg Take 99 mg by mouth daily. [facility] omega-3s-dh a-epa-fish oil-D3 (FISH OIL-VIT D3) 360 mg-1,200 mg -1,000 unit Cap 10-26 15:16: 05 Yes Take by mouth. [facility] MULTIVITS-M INERALS/FA/ LYCOPENE (ONE-A-DAY MEN'S MULTIVITAMI N ORAL) 10-26 15:16: 05 Yes Take by mouth. [facility] POTASSIUM-9 9 ORAL 10-26 15:16: 05 Yes 99mg Take 99 mg by mouth daily. [facility] omega-3s-dh a-epa-fish oil-D3 (FISH OIL-VIT D3) 360 mg-1,200 mg -1,000 unit Cap 10-26 15:16: 05 Yes Take by mouth. [facility] MULTIVITS-M INERALS/FA/ LYCOPENE (ONE-A-DAY MEN'S MULTIVITAMI N ORAL) 10-26 15:16: 05 Yes Take by mouth. [facility] POTASSIUM-9 9 ORAL 10-26 15:16: 05 Yes 99mg Take 99 mg by mouth daily. [facility] omega-3s-dh a-epa-fish oil-D3 (FISH OIL-VIT D3) 360 mg-1,200 mg -1,000 unit Cap -04 15:16: 05 Yes Take by mouth. [facility] MULTIVITS-M INERALS/FA/ LYCOPENE (ONE-A-DAY MEN'S MULTIVITAMI N ORAL) -04 15:16: 05 Yes Take by mouth. [facility] POTASSIUM-9 9 ORAL -04 15:16: 05 Yes 99mg Take 99 mg by mouth daily. [facility] omega-3s-dh a-epa-fish oil-D3 (FISH OIL-VIT D3) 360 mg-1,200 mg -1,000 unit Cap -04 15:16: 05 Yes Take by mouth. [facility] MULTIVITS-M INERALS/FA/ LYCOPENE (ONE-A-DAY MEN'S MULTIVITAMI N ORAL) 10-26 15:16: 05 Yes Take by mouth. [facility] POTASSIUM-9 9 ORAL 10-26 15:16: 05 Yes 99mg Take 99 mg by mouth daily. [facility] omega-3s-dh a-epa-fish oil-D3 (FISH OIL-VIT D3) 360 mg-1,200 mg -1,000 unit Cap 04 15:16: 05 Yes Take by mouth. [facility] MULTIVITS-M INERALS/FA/ LYCOPENE (ONE-A-DAY MEN'S MULTIVITAMI N ORAL) 10-26 15:16: 05 Yes Take by mouth. [facility] POTASSIUM-9 9 ORAL -04 15:16: 05 Yes 99mg Take 99 mg by mouth daily. [facility] omega-3s-dh a-epa-fish oil-D3 (FISH OIL-VIT D3) 360 mg-1,200 mg -1,000 unit Cap -04 15:16: 05 Yes Take by mouth. [facility] MULTIVITS-M INERALS/FA/ LYCOPENE (ONE-A-DAY MEN'S MULTIVITAMI N ORAL) -04 15:16: 05 Yes Take by mouth. [facility] POTASSIUM-9 9 ORAL -04 15:16: 05 Yes 99mg Take 99 mg by mouth daily. [facility] omega-3s-dh a-epa-fish oil-D3 (FISH OIL-VIT D3) 360 mg-1,200 mg -1,000 unit Cap 10-26 15:16: 05 Yes Take by mouth. [facility] MULTIVITS-M INERALS/FA/ LYCOPENE (ONE-A-DAY MEN'S MULTIVITAMI N ORAL) 10-26 15:16: 05 Yes Take by mouth. [facility] POTASSIUM-9 9 ORAL 10-26 15:16: 05 Yes 99mg Take 99 mg by mouth daily. [facility] omega-3s-dh a-epa-fish oil-D3 (FISH OIL-VIT D3) 360 mg-1,200 mg -1,000 unit Cap 10-26 15:16: 05 Yes Take by mouth. [facility] MULTIVITS-M INERALS/FA/ LYCOPENE (ONE-A-DAY MEN'S MULTIVITAMI N ORAL) 10-26 15:16: 05 Yes Take by mouth. [facility] POTASSIUM-9 9 ORAL 10-26 15:16: 05 Yes 99mg Take 99 mg by mouth daily. [facility] omega-3s-dh a-epa-fish oil-D3 (FISH OIL-VIT D3) 360 mg-1,200 mg -1,000 unit Cap 10-26 15:16: 05 Yes Take by mouth. [facility] MULTIVITS-M INERALS/FA/ LYCOPENE (ONE-A-DAY MEN'S MULTIVITAMI N ORAL) 10-26 15:16: 05 Yes Take by mouth. [facility] POTASSIUM-9 9 ORAL 10-26 15:16: 05 Yes 99mg Take 99 mg by mouth daily. [facility] omega-3s-dh a-epa-fish oil-D3 (FISH OIL-VIT D3) 360 mg-1,200 mg -1,000 unit Cap 10-26 15:16: 05 Yes Take by mouth. [facility] MULTIVITS-M INERALS/FA/ LYCOPENE (ONE-A-DAY MEN'S MULTIVITAMI N ORAL) -04 15:16: 05 Yes Take by mouth. [facility] POTASSIUM-9 9 ORAL 10-26 15:16: 05 Yes 99mg Take 99 mg by mouth daily. [facility] omega-3s-dh a-epa-fish oil-D3 (FISH OIL-VIT D3) 360 mg-1,200 mg -1,000 unit Cap -04 15:16: 05 Yes Take by mouth. [facility] MULTIVITS-M INERALS/FA/ LYCOPENE (ONE-A-DAY MEN'S MULTIVITAMI N ORAL) 10-26 15:16: 05 Yes Take by mouth. [facility] POTASSIUM-9 9 ORAL 10-26 15:16: 05 Yes 99mg Take 99 mg by mouth daily. [facility] omega-3s-dh a-epa-fish oil-D3 (FISH OIL-VIT D3) 360 mg-1,200 mg -1,000 unit Cap 04 15:16: 05 Yes Take by mouth. [facility] MULTIVITS-M INERALS/FA/ LYCOPENE (ONE-A-DAY MEN'S MULTIVITAMI N ORAL) 10-26 15:16: 05 Yes Take by mouth. [facility] POTASSIUM-9 9 ORAL -04 15:16: 05 Yes 99mg Take 99 mg by mouth daily. [facility] omega-3s-dh a-epa-fish oil-D3 (FISH OIL-VIT D3) 360 mg-1,200 mg -1,000 unit Cap -04 15:16: 05 Yes Take by mouth. [facility] MULTIVITS-M INERALS/FA/ LYCOPENE (ONE-A-DAY MEN'S MULTIVITAMI N ORAL) -04 15:16: 05 Yes Take by mouth. [facility] POTASSIUM-9 9 ORAL 4-04 15:16: 05 Yes 99mg Take 99 mg by mouth daily. [facility] omega-3s-dh a-epa-fish oil-D3 (FISH OIL-VIT D3) 360 mg-1,200 mg -1,000 unit Cap 10-26 15:16: 05 Yes Take by mouth. [facility] MULTIVITS-M INERALS/FA/ LYCOPENE (ONE-A-DAY MEN'S MULTIVITAMI N ORAL) 10-26 15:16: 05 Yes Take by mouth. [facility] POTASSIUM-9 9 ORAL 10-26 15:16: 05 Yes 99mg Take 99 mg by mouth daily. [facility] omega-3s-dh a-epa-fish oil-D3 (FISH OIL-VIT D3) 360 mg-1,200 mg -1,000 unit Cap 10-26 15:16: 05 Yes Take by mouth. [facility] MULTIVITS-M INERALS/FA/ LYCOPENE (ONE-A-DAY MEN'S MULTIVITAMI N ORAL) 10-26 15:16: 05 Yes Take by mouth. [facility] POTASSIUM-9 9 ORAL 10-26 15:16: 05 Yes 99mg Take 99 mg by mouth daily. [facility] omega-3s-dh a-epa-fish oil-D3 (FISH OIL-VIT D3) 360 mg-1,200 mg -1,000 unit Cap 10-26 15:16: 05 Yes Take by mouth. [facility] MULTIVITS-M INERALS/FA/ LYCOPENE (ONE-A-DAY MEN'S MULTIVITAMI N ORAL) 10-26 15:16: 05 Yes Take by mouth. [facility] POTASSIUM-9 9 ORAL 10-26 15:16: 05 Yes 99mg Take 99 mg by mouth daily. [facility] omega-3s-dh a-epa-fish oil-D3 (FISH OIL-VIT D3) 360 mg-1,200 mg -1,000 unit Cap 10-26 15:16: 05 Yes Take by mouth. [facility] MULTIVITS-M INERALS/FA/ LYCOPENE (ONE-A-DAY MEN'S MULTIVITAMI N ORAL) 10-26 15:16: 05 Yes Take by mouth. [facility] POTASSIUM-9 9 ORAL 10-26 15:16: 05 Yes 99mg Take 99 mg by mouth daily. [facility] omega-3s-dh a-epa-fish oil-D3 (FISH OIL-VIT D3) 360 mg-1,200 mg -1,000 unit Cap 10-26 15:16: 05 Yes Take by mouth. [facility] MULTIVITS-M INERALS/FA/ LYCOPENE (ONE-A-DAY MEN'S MULTIVITAMI N ORAL) 10-26 15:16: 05 Yes Take by mouth. [facility] POTASSIUM-9 9 ORAL 10-26 15:16: 05 Yes 99mg Take 99 mg by mouth daily. [facility] omega-3s-dh a-epa-fish oil-D3 (FISH OIL-VIT D3) 360 mg-1,200 mg -1,000 unit Cap 10-26 15:16: 05 Yes Take by mouth. [facility] MULTIVITS-M INERALS/FA/ LYCOPENE (ONE-A-DAY MEN'S MULTIVITAMI N ORAL) 10-26 15:16: 05 Yes Take by mouth. [facility] POTASSIUM-9 9 ORAL 10-26 15:16: 05 Yes 99mg Take 99 mg by mouth daily. [facility] omega-3s-dh a-epa-fish oil-D3 (FISH OIL-VIT D3) 360 mg-1,200 mg -1,000 unit Cap 10-26 15:16: 05 Yes Take by mouth. [facility] MULTIVITS-M INERALS/FA/ LYCOPENE (ONE-A-DAY MEN'S MULTIVITAMI N ORAL) 10-26 15:16: 05 Yes Take by mouth. [facility] POTASSIUM-9 9 ORAL 10-26 15:16: 05 Yes 99mg Take 99 mg by mouth daily. [facility] omega-3s-dh a-epa-fish oil-D3 (FISH OIL-VIT D3) 360 mg-1,200 mg -1,000 unit Cap 10-26 15:16: 05 Yes Take by mouth. [facility] MULTIVITS-M INERALS/FA/ LYCOPENE (ONE-A-DAY MEN'S MULTIVITAMI N ORAL) 10-26 15:16: 05 Yes Take by mouth. [facility] POTASSIUM-9 9 ORAL 10-26 15:16: 05 Yes 99mg Take 99 mg by mouth daily. [facility] omega-3s-dh a-epa-fish oil-D3 (FISH OIL-VIT D3) 360 mg-1,200 mg -1,000 unit Cap 10-26 15:16: 05 Yes Take by mouth. [facility] MULTIVITS-M INERALS/FA/ LYCOPENE (ONE-A-DAY MEN'S MULTIVITAMI N ORAL) 10-26 15:16: 05 Yes Take by mouth. [facility] POTASSIUM-9 9 ORAL 10-26 15:16: 05 Yes 99mg Take 99 mg by mouth daily. [facility] omega-3s-dh a-epa-fish oil-D3 (FISH OIL-VIT D3) 360 mg-1,200 mg -1,000 unit Cap 10-26 15:16: 05 Yes Take by mouth. [facility] MULTIVITS-M INERALS/FA/ LYCOPENE (ONE-A-DAY MEN'S MULTIVITAMI N ORAL) 10-26 15:16: 05 Yes Take by mouth. [facility] POTASSIUM-9 9 ORAL 10-26 15:16: 05 Yes 99mg Take 99 mg by mouth daily. [facility] pantoprazol e (PROTONIX) EC tablet 40 mg 10-26 14:00: 00 Yes 40mg 40 mg, Oral, DAILY, First dose on Tue10/26/22 at 0900, Until Discontinu ed, Routine [facility] pantoprazol e (PROTONIX) EC tablet 40 mg 2022-10-26 14:00: 00 Yes 40mg 40 mg, Oral, DAILY, First dose on Tue10/26/22 at 0900, Until Discontinu ed, [facility] lisinopriL (PRINIVIL,Z ESTRIL) tablet 40 mg 10-26 14:00: 00 Yes 40mg 40 mg, Oral, DAILY, First dose on Tue10/26/22 at 0900, Until Discontinu ed [facility] amLODIPine (NORVASC) tablet 10 mg 10-26 14:00: 00 Yes 10mg 10 mg, Oral, DAILY, First dose on Tue10/26/22 at 0900, Until Discontinu ed, Routine [facility] atorvastati n (LIPITOR) tablet 20 mg 10-26 02:00: 00 Yes 20mg 20 mg, Oral, QHS, First dose on Tue10/25/22 at 2100, Until Discontinu ed, Routine [facility] heparin (porcine) injection 5,000 Units 10-26 01:00: 00 Yes 5000U 5,000 Units, Subcutaneo us, Q12H, First dose on Tue10/25/22 at 2000, Until Discontinu ed, Routine [facility] risperiDONE (RISPERDAL) tablet 1 mg 10-26 01:00: 00 Yes 1mg 1 mg, Oral, BID, First dose on Tue10/25/22 at 2000, Until Discontinu ed, Routine [facility] divalproex 250 mg EC tablet 10-26 00:00: 00 01-25 04:59 :00 No [id number] 1750mg Take 7 tablets by mouth every 12 (twelve) hours for 90 days. [facility] divalproex 250 mg EC tablet 10-26 00:00: 00 01-25 04:59 :00 No [id number] 1750mg Take 7 tablets by mouth every 12 (twelve) hours for 90 days. [facility] divalproex 250 mg EC tablet 10-26 00:00: 00 01-25 04:59 :00 No [id number] 1750mg Take 7 tablets by mouth every 12 (twelve) hours for 90 days. [facility] divalproex 250 mg EC tablet 0 4-04 00:00: 00 01-25 04:59 :00 No [id number] 1750mg Take 7 tablets by mouth every 12 (twelve) hours for 90 days. [facility] divalproex 250 mg EC tablet 0 4-04 00:00: 00 01-25 04:59 :00 No [id number] 1750mg Take 7 tablets by mouth every 12 (twelve) hours for 90 days. [facility] divalproex 250 mg EC tablet 4- 00:00: 00 01-25 04:59 :00 No [id number] 1750mg Take 7 tablets by mouth every 12 (twelve) hours for 90 days. [facility] divalproex 250 mg EC tablet - 00:00: 00 01-25 04:59 :00 No [id number] 1750mg Take 7 tablets by mouth every 12 (twelve) hours for 90 days. [facility] divalproex 250 mg EC tablet 10-26 00:00: 00 01-25 04:59 :00 No [id number] 1750mg Take 7 tablets by mouth every 12 (twelve) hours for 90 days. [facility] divalproex 250 mg EC tablet 10-26 00:00: 00 01-25 04:59 :00 No [id number] 1750mg Take 7 tablets by mouth every 12 (twelve) hours for 90 days. [facility] divalproex 250 mg EC tablet 0 4-04 00:00: 00 01-25 04:59 :00 No [id number] 1750mg Take 7 tablets by mouth every 12 (twelve) hours for 90 days. [facility] divalproex 250 mg EC tablet 0 4-04 00:00: 00 01-25 04:59 :00 No [id number] 1750mg Take 7 tablets by mouth every 12 (twelve) hours for 90 days. [facility] divalproex 250 mg EC tablet 10-26 00:00: 00 01-25 04:59 :00 No [id number] 1750mg Take 7 tablets by mouth every 12 (twelve) hours for 90 days. [facility] divalproex 250 mg EC tablet 10-26 00:00: 00 01-25 04:59 :00 No [id number] 1750mg Take 7 tablets by mouth every 12 (twelve) hours for 90 days. [facility] divalproex 250 mg EC tablet 10-26 00:00: 00 01-25 04:59 :00 No [id number] 1750mg Take 7 tablets by mouth every 12 (twelve) hours for 90 days. [facility] divalproex 250 mg EC tablet 10-26 00:00: 00 01-25 04:59 :00 No [id number] 1750mg Take 7 tablets by mouth every 12 (twelve) hours for 90 days. [facility] divalproex 250 mg EC tablet 10-26 00:00: 00 01-25 04:59 :00 No [id number] 1750mg Take 7 tablets by mouth every 12 (twelve) hours for 90 days. [facility] divalproex 250 mg EC tablet 10-26 00:00: 00 01-25 04:59 :00 No [id number] 1750mg Take 7 tablets by mouth every 12 (twelve) hours for 90 days. [facility] divalproex 250 mg EC tablet 10-26 00:00: 00 01-25 04:59 :00 No [id number] 1750mg Take 7 tablets by mouth every 12 (twelve) hours for 90 days. [facility] divalproex 250 mg EC tablet 10-26 00:00: 00 01-25 04:59 :00 No [id number] 1750mg Take 7 tablets by mouth every 12 (twelve) hours for 90 days. [facility] divalproex 250 mg EC tablet 10-26 00:00: 00 01-25 04:59 :00 No [id number] 1750mg Take 7 tablets by mouth every 12 (twelve) hours for 90 days. [facility] divalproex 250 mg EC tablet 10-26 00:00: 00 01-25 04:59 :00 No [id number] 1750mg Take 7 tablets by mouth every 12 (twelve) hours for 90 days. [facility] divalproex 250 mg EC tablet 10-26 00:00: 00 01-25 04:59 :00 No [id number] 1750mg Take 7 tablets by mouth every 12 (twelve) hours for 90 days. [facility] divalproex 250 mg EC tablet 10-26 00:00: 00 01-25 04:59 :00 No [id number] 1750mg Take 7 tablets by mouth every 12 (twelve) hours for 90 days. [facility] divalproex 250 mg EC tablet 10-26 00:00: 00 01-25 04:59 :00 No [id number] 1750mg Take 7 tablets by mouth every 12 (twelve) hours for 90 days. [facility] divalproex 250 mg EC tablet 10-26 00:00: 00 01-25 04:59 :00 No [id number] 1750mg Take 7 tablets by mouth every 12 (twelve) hours for 90 days. [facility] divalproex 250 mg EC tablet 10-26 00:00: 00 01-25 04:59 :00 No [id number] 1750mg Take 7 tablets by mouth every 12 (twelve) hours for 90 days. [facility] divalproex 250 mg EC tablet 10-26 00:00: 00 01-25 04:59 :00 No [id number] 1750mg Take 7 tablets by mouth every 12 (twelve) hours for 90 days. [facility] carvediloL (COREG) tablet 25 mg 10-25 22:00: 00 Yes 25mg 25 mg, Oral, BID MEALS, First dose on Tue10/25/22 at 1700, Until Discontinu ed, Routine [facility] gabapentin (NEURONTIN) capsule 300 mg 10-25 19:00: 00 Yes 300mg 300 mg, Oral, TID, First dose on Tue10/25/22 at 1400, Until Discontinu ed, Routine [facility] Sliding Scale Insulin - Lispro (HumaLOG) + Fsbg Testing 10-25 17:00: 00 Yes Subcutaneo us, TID MEALS+HS, First dose on Tue10/25/22 at 1200, Until Discontinu ed, Routine [facility] hydrALAZINE (APRESOLINE ) tablet 25 mg 10-25 17:00: 00 Yes 25mg 25 mg, Oral, Q6H, First dose on Tue10/25/22 at 1200, Until Discontinu ed, Routine [facility] dextrose 10% (D10W) bolus infusion 250 mL 10-25 15:51: 53 Yes 250mL 250 mL, IV Infusion, PRN - SEE INSTRUCTIO NS, Administer over 60 Minutes, Other, If blood glucose is < or = 70 mg/dL and patient is unable to swallow or has mental status changes, Starting on Tue10/25/22 at 1051
If blood glucose is < or = 70 mg/dL and patient is unable to swallow or has mental status changes (Give glucagon order if patient needs fluid restrictio n): IF IV access available: Dextrose 10%. 1. 125 mL (? bag) of D10W IV infusion - equivalent to 12.5 g dextrose 2. Blood glucose - draw blood glucose 15 minutes after D10W Administra tion. 3. If blood glucose is < 80 mg/dL, repeat.
[facility] glucagon (GLUCAGEN DIAGNOSTIC KIT) injection 1 mg 10-25 15:51: 50 Yes 1mg 1 mg, Intramuscu lar, PRN, Starting on Tue10/25/22 at 1051, Until Discontinu ed, HENRY, Blood Glucose < or = 70 mg/dL and patient is NPO, unable to swallow or has mental changes. [facility] predniSONE (DELTASONE) tablet 5 mg 10-25 15:15: 00 Yes 5mg 5 mg, Oral, DAILY, First dose on Tue10/25/22 at 1015, Until Discontinu ed, Routine [facility] acetaminoph en (TYLENOL) tablet 650 mg 10-25 15:11: 20 Yes 650mg 650 mg, Oral, Q6HPRN, Starting on Tue10/25/22 at 1011, Until Discontinu ed, Routine, Pain (scale 4-6) [facility] docusate (COLACE) capsule 100 mg 10-25 15:11: 20 Yes 100mg 100 mg, Oral, QDAILYPRN, Starting on Tue10/25/22 at 1011, Until Discontinu ed, Routine, Constipati on [facility] hydrOXYzine (ATARAX) tablet 10 mg 10-25 15:10: 10 Yes 10mg 10 mg, Oral, Q6HPRN, Starting on Tue10/25/22 at 1010, Until Discontinu ed, Routine, Itching [facility] risperiDONE 1 mg tablet 08-17 00:00: 00 Yes [id number] 1mg Take 1 tablet by mouth in the morning and 1 tablet in the evening. [facility] pantoprazol e 40 mg EC tablet 08-17 00:00: 00 Yes [id number] 40mg Take 1 tablet by mouth in the morning. [facility] metFORMIN 1,000 mg tablet 08-17 00:00: 00 Yes [id number] 1000mg Take 1 tablet by mouth in the morning and 1 tablet in the evening. Take with meals. [facility] lisinopriL 40 mg tablet 08-17 00:00: 00 Yes [id number] 40mg Take 1 tablet by mouth in the morning. [facility] hydrOXYzine 10 mg tablet 08-17 00:00: 00 Yes [id number] 10mg Take 1 tablet by mouth every 6 (six) hours as needed for Itching. [facility] hydrALAZINE 25 mg tablet 08-17 00:00: 00 Yes [id number] 25mg Take 1 tablet by mouth every 6 (six) hours. [facility] gabapentin 300 mg capsule 08-17 00:00: 00 Yes [id number] 300mg Take 1 capsule by mouth in the morning and 1 capsule at noon and 1 capsule in the evening. [facility] ferrous sulfate 325 mg (65 mg iron) tablet 08-17 00:00: 00 Yes [id number] 325mg Take 1 tablet by mouth every other day. [facility] divalproex 500 mg EC tablet 08-17 00:00: 00 Yes [id number] 1500mg Take 3 tablets by mouth every 12 (twelve) hours. [facility] diphenhydrA MINE 25 mg tablet 08-17 00:00: 00 Yes [id number] 25mg Take 1 tablet by mouth as needed for Allergies (Before infusion). [facility] carvediloL (COREG) 25 mg tablet 08-17 00:00: 00 Yes [id number] 25mg Take 1 tablet by mouth in the morning and 1 tablet in the evening. Take with meals. [facility] atorvastati n 20 mg tablet 08-17 00:00: 00 Yes [id number] 20mg Take 1 tablet by mouth at bedtime. [facility] amLODIPine 10 mg tablet 08-17 00:00: 00 Yes [id number] 10mg Take 1 tablet by mouth in the morning. [facility] risperiDONE 1 mg tablet 08-17 00:00: 00 Yes [id number] 1mg Take 1 tablet by mouth in the morning and 1 tablet in the evening. [facility] pantoprazol e 40 mg EC tablet 08-17 00:00: 00 Yes [id number] 40mg Take 1 tablet by mouth in the morning. [facility] lisinopriL 40 mg tablet 08-17 00:00: 00 Yes [id number] 40mg Take 1 tablet by mouth in the morning. [facility] hydrOXYzine 10 mg tablet 08-17 00:00: 00 Yes [id number] 10mg Take 1 tablet by mouth every 6 (six) hours as needed for Itching. [facility] divalproex 500 mg EC tablet 08-17 00:00: 00 Yes [id number] 1500mg Take 3 tablets by mouth every 12 (twelve) hours. [facility] amLODIPine 10 mg tablet 08-17 00:00: 00 Yes [id number] 10mg Take 1 tablet by mouth in the morning. [facility] atorvastati n 20 mg tablet 08-17 00:00: 00 Yes [id number] 20mg Take 1 tablet by mouth at bedtime. [facility] carvediloL (COREG) 25 mg tablet 08-17 00:00: 00 Yes [id number] 25mg Take 1 tablet by mouth in the morning and 1 tablet in the evening. Take with meals. [facility] diphenhydrA MINE 25 mg tablet 08-17 00:00: 00 Yes [id number] 25mg Take 1 tablet by mouth as needed for Allergies (Before infusion). [facility] ferrous sulfate 325 mg (65 mg iron) tablet 08-17 00:00: 00 Yes [id number] 325mg Take 1 tablet by mouth every other day. [facility] gabapentin 300 mg capsule 08-17 00:00: 00 Yes [id number] 300mg Take 1 capsule by mouth in the morning and 1 capsule at noon and 1 capsule in the evening. [facility] hydrALAZINE 25 mg tablet 08-17 00:00: 00 Yes [id number] 25mg Take 1 tablet by mouth every 6 (six) hours. [facility] metFORMIN 1,000 mg tablet 08-17 00:00: 00 Yes [id number] 1000mg Take 1 tablet by mouth in the morning and 1 tablet in the evening. Take with meals. [facility] risperiDONE 1 mg tablet 08-17 00:00: 00 Yes [id number] 1mg Take 1 tablet by mouth in the morning and 1 tablet in the evening. [facility] pantoprazol e 40 mg EC tablet 08-17 00:00: 00 Yes [id number] 40mg Take 1 tablet by mouth in the morning. [facility] lisinopriL 40 mg tablet 08-17 00:00: 00 Yes [id number] 40mg Take 1 tablet by mouth in the morning. [facility] hydrOXYzine 10 mg tablet 08-17 00:00: 00 Yes [id number] 10mg Take 1 tablet by mouth every 6 (six) hours as needed for Itching. [facility] divalproex 500 mg EC tablet 08-17 00:00: 00 Yes [id number] 1500mg Take 3 tablets by mouth every 12 (twelve) hours. [facility] amLODIPine 10 mg tablet 08-17 00:00: 00 Yes [id number] 10mg Take 1 tablet by mouth in the morning. [facility] atorvastati n 20 mg tablet 08-17 00:00: 00 Yes [id number] 20mg Take 1 tablet by mouth at bedtime. [facility] carvediloL (COREG) 25 mg tablet 08-17 00:00: 00 Yes [id number] 25mg Take 1 tablet by mouth in the morning and 1 tablet in the evening. Take with meals. [facility] diphenhydrA MINE 25 mg tablet 08-17 00:00: 00 Yes [id number] 25mg Take 1 tablet by mouth as needed for Allergies (Before infusion). [facility] ferrous sulfate 325 mg (65 mg iron) tablet 08-17 00:00: 00 Yes [id number] 325mg Take 1 tablet by mouth every other day. [facility] gabapentin 300 mg capsule 08-17 00:00: 00 Yes [id number] 300mg Take 1 capsule by mouth in the morning and 1 capsule at noon and 1 capsule in the evening. [facility] hydrALAZINE 25 mg tablet 08-17 00:00: 00 Yes [id number] 25mg Take 1 tablet by mouth every 6 (six) hours. [facility] metFORMIN 1,000 mg tablet 08-17 00:00: 00 Yes [id number] 1000mg Take 1 tablet by mouth in the morning and 1 tablet in the evening. Take with meals. [facility] risperiDONE 1 mg tablet 08-17 00:00: 00 Yes [id number] 1mg Take 1 tablet by mouth in the morning and 1 tablet in the evening. [facility] pantoprazol e 40 mg EC tablet 08-17 00:00: 00 Yes [id number] 40mg Take 1 tablet by mouth in the morning. [facility] lisinopriL 40 mg tablet 08-17 00:00: 00 Yes [id number] 40mg Take 1 tablet by mouth in the morning. [facility] [facility] hydrOXYzine 10 mg tablet 08-17 00:00: 00 Yes [id number] 10mg Take 1 tablet by mouth every 6 (six) hours as needed for Itching. [facility] amLODIPine 10 mg tablet 08-17 00:00: 00 Yes [id number] 10mg Take 1 tablet by mouth in the morning. [facility] atorvastati n 20 mg tablet 08-17 00:00: 00 Yes [id number] 20mg Take 1 tablet by mouth at bedtime. [facility] carvediloL (COREG) 25 mg tablet 08-17 00:00: 00 Yes [id number] 25mg Take 1 tablet by mouth in the morning and 1 tablet in the evening. Take with meals. [facility] diphenhydrA MINE 25 mg tablet 08-17 00:00: 00 Yes [id number] 25mg Take 1 tablet by mouth as needed for Allergies (Before infusion). [facility] ferrous sulfate 325 mg (65 mg iron) tablet 08-17 00:00: 00 Yes [id number] 325mg Take 1 tablet by mouth every other day. [facility] gabapentin 300 mg capsule 08-17 00:00: 00 Yes [id number] 300mg Take 1 capsule by mouth in the morning and 1 capsule at noon and 1 capsule in the evening. [facility] hydrALAZINE 25 mg tablet 08-17 00:00: 00 Yes [id number] 25mg Take 1 tablet by mouth every 6 (six) hours. [facility] metFORMIN 1,000 mg tablet 08-17 00:00: 00 Yes [id number] 1000mg Take 1 tablet by mouth in the morning and 1 tablet in the evening. Take with meals. [facility] risperiDONE 1 mg tablet 08-17 00:00: 00 Yes [id number] 1mg Take 1 tablet by mouth in the morning and 1 tablet in the evening. [facility] pantoprazol e 40 mg EC tablet 08-17 00:00: 00 Yes [id number] 40mg Take 1 tablet by mouth in the morning. [facility] lisinopriL 40 mg tablet 08-17 00:00: 00 Yes [id number] 40mg Take 1 tablet by mouth in the morning. [facility] hydrOXYzine 10 mg tablet 08-17 00:00: 00 Yes [id number] 10mg Take 1 tablet by mouth every 6 (six) hours as needed for Itching. [facility] amLODIPine 10 mg tablet 08-17 00:00: 00 Yes [id number] 10mg Take 1 tablet by mouth in the morning. [facility] atorvastati n 20 mg tablet 08-17 00:00: 00 Yes [id number] 20mg Take 1 tablet by mouth at bedtime. [facility] carvediloL (COREG) 25 mg tablet 08-17 00:00: 00 Yes [id number] 25mg Take 1 tablet by mouth in the morning and 1 tablet in the evening. Take with meals. [facility] diphenhydrA MINE 25 mg tablet 08-17 00:00: 00 Yes [id number] 25mg Take 1 tablet by mouth as needed for Allergies (Before infusion). [facility] ferrous sulfate 325 mg (65 mg iron) tablet 08-17 00:00: 00 Yes [id number] 325mg Take 1 tablet by mouth every other day. [facility] gabapentin 300 mg capsule 08-17 00:00: 00 Yes [id number] 300mg Take 1 capsule by mouth in the morning and 1 capsule at noon and 1 capsule in the evening. [facility] hydrALAZINE 25 mg tablet 08-17 00:00: 00 Yes [id number] 25mg Take 1 tablet by mouth every 6 (six) hours. [facility] metFORMIN 1,000 mg tablet 08-17 00:00: 00 Yes [id number] 1000mg Take 1 tablet by mouth in the morning and 1 tablet in the evening. Take with meals. [facility] risperiDONE 1 mg tablet 08-17 00:00: 00 Yes [id number] 1mg Take 1 tablet by mouth in the morning and 1 tablet in the evening. [facility] pantoprazol e 40 mg EC tablet 08-17 00:00: 00 Yes [id number] 40mg Take 1 tablet by mouth in the morning. [facility] lisinopriL 40 mg tablet 08-17 00:00: 00 Yes [id number] 40mg Take 1 tablet by mouth in the morning. [facility] hydrOXYzine 10 mg tablet 08-17 00:00: 00 Yes [id number] 10mg Take 1 tablet by mouth every 6 (six) hours as needed for Itching. [facility] amLODIPine 10 mg tablet 08-17 00:00: 00 Yes [id number] 10mg Take 1 tablet by mouth in the morning. [facility] atorvastati n 20 mg tablet 08-17 00:00: 00 Yes [id number] 20mg Take 1 tablet by mouth at bedtime. [facility] carvediloL (COREG) 25 mg tablet 08-17 00:00: 00 Yes [id number] 25mg Take 1 tablet by mouth in the morning and 1 tablet in the evening. Take with meals. [facility] diphenhydrA MINE 25 mg tablet 08-17 00:00: 00 Yes [id number] 25mg Take 1 tablet by mouth as needed for Allergies (Before infusion). [facility] ferrous sulfate 325 mg (65 mg iron) tablet 08-17 00:00: 00 Yes [id number] 325mg Take 1 tablet by mouth every other day. [facility] gabapentin 300 mg capsule 08-17 00:00: 00 Yes [id number] 300mg Take 1 capsule by mouth in the morning and 1 capsule at noon and 1 capsule in the evening. [facility] hydrALAZINE 25 mg tablet 08-17 00:00: 00 Yes [id number] 25mg Take 1 tablet by mouth every 6 (six) hours. [facility] metFORMIN 1,000 mg tablet 08-17 00:00: 00 Yes [id number] 1000mg Take 1 tablet by mouth in the morning and 1 tablet in the evening. Take with meals. [facility] risperiDONE 1 mg tablet 08-17 00:00: 00 Yes [id number] 1mg Take 1 tablet by mouth in the morning and 1 tablet in the evening. [facility] pantoprazol e 40 mg EC tablet 08-17 00:00: 00 Yes [id number] 40mg Take 1 tablet by mouth in the morning. [facility] lisinopriL 40 mg tablet 08-17 00:00: 00 Yes [id number] 40mg Take 1 tablet by mouth in the morning. [facility] hydrOXYzine 10 mg tablet 08-17 00:00: 00 Yes [id number] 10mg Take 1 tablet by mouth every 6 (six) hours as needed for Itching. [facility] amLODIPine 10 mg tablet 08-17 00:00: 00 Yes [id number] 10mg Take 1 tablet by mouth in the morning. [facility] atorvastati n 20 mg tablet 08-17 00:00: 00 Yes [id number] 20mg Take 1 tablet by mouth at bedtime. [facility] carvediloL (COREG) 25 mg tablet 08-17 00:00: 00 Yes [id number] 25mg Take 1 tablet by mouth in the morning and 1 tablet in the evening. Take with meals. [facility] diphenhydrA MINE 25 mg tablet 08-17 00:00: 00 Yes [id number] 25mg Take 1 tablet by mouth as needed for Allergies (Before infusion). [facility] ferrous sulfate 325 mg (65 mg iron) tablet 08-17 00:00: 00 Yes [id number] 325mg Take 1 tablet by mouth every other day. [facility] gabapentin 300 mg capsule 08-17 00:00: 00 Yes [id number] 300mg Take 1 capsule by mouth in the morning and 1 capsule at noon and 1 capsule in the evening. [facility] hydrALAZINE 25 mg tablet 08-17 00:00: 00 Yes [id number] 25mg Take 1 tablet by mouth every 6 (six) hours. [facility] metFORMIN 1,000 mg tablet 08-17 00:00: 00 Yes [id number] 1000mg Take 1 tablet by mouth in the morning and 1 tablet in the evening. Take with meals. [facility] risperiDONE 1 mg tablet 08-17 00:00: 00 Yes [id number] 1mg Take 1 tablet by mouth in the morning and 1 tablet in the evening. [facility] pantoprazol e 40 mg EC tablet 08-17 00:00: 00 Yes [id number] 40mg Take 1 tablet by mouth in the morning. [facility] lisinopriL 40 mg tablet 08-17 00:00: 00 Yes [id number] 40mg Take 1 tablet by mouth in the morning. [facility] hydrOXYzine 10 mg tablet 08-17 00:00: 00 Yes [id number] 10mg Take 1 tablet by mouth every 6 (six) hours as needed for Itching. [facility] amLODIPine 10 mg tablet 08-17 00:00: 00 Yes [id number] 10mg Take 1 tablet by mouth in the morning. [facility] atorvastati n 20 mg tablet 08-17 00:00: 00 Yes [id number] 20mg Take 1 tablet by mouth at bedtime. [facility] carvediloL (COREG) 25 mg tablet 08-17 00:00: 00 Yes [id number] 25mg Take 1 tablet by mouth in the morning and 1 tablet in the evening. Take with meals. [facility] diphenhydrA MINE 25 mg tablet 08-17 00:00: 00 Yes [id number] 25mg Take 1 tablet by mouth as needed for Allergies (Before infusion). [facility] ferrous sulfate 325 mg (65 mg iron) tablet 08-17 00:00: 00 Yes [id number] 325mg Take 1 tablet by mouth every other day. [facility] gabapentin 300 mg capsule 08-17 00:00: 00 Yes [id number] 300mg Take 1 capsule by mouth in the morning and 1 capsule at noon and 1 capsule in the evening. [facility] hydrALAZINE 25 mg tablet 08-17 00:00: 00 Yes [id number] 25mg Take 1 tablet by mouth every 6 (six) hours. [facility] metFORMIN 1,000 mg tablet 08-17 00:00: 00 Yes [id number] 1000mg Take 1 tablet by mouth in the morning and 1 tablet in the evening. Take with meals. [facility] risperiDONE 1 mg tablet 08-17 00:00: 00 Yes [id number] 1mg Take 1 tablet by mouth in the morning and 1 tablet in the evening. [facility] pantoprazol e 40 mg EC tablet 08-17 00:00: 00 Yes [id number] 40mg Take 1 tablet by mouth in the morning. [facility] lisinopriL 40 mg tablet 08-17 00:00: 00 Yes [id number] 40mg Take 1 tablet by mouth in the morning. [facility] hydrOXYzine 10 mg tablet 08-17 00:00: 00 Yes [id number] 10mg Take 1 tablet by mouth every 6 (six) hours as needed for Itching. [facility] amLODIPine 10 mg tablet 08-17 00:00: 00 Yes [id number] 10mg Take 1 tablet by mouth in the morning. [facility] atorvastati n 20 mg tablet 08-17 00:00: 00 Yes [id number] 20mg Take 1 tablet by mouth at bedtime. [facility] carvediloL (COREG) 25 mg tablet 08-17 00:00: 00 Yes [id number] 25mg Take 1 tablet by mouth in the morning and 1 tablet in the evening. Take with meals. [facility] diphenhydrA MINE 25 mg tablet 08-17 00:00: 00 Yes [id number] 25mg Take 1 tablet by mouth as needed for Allergies (Before infusion). [facility] ferrous sulfate 325 mg (65 mg iron) tablet 08-17 00:00: 00 Yes [id number] 325mg Take 1 tablet by mouth every other day. [facility] gabapentin 300 mg capsule 08-17 00:00: 00 Yes [id number] 300mg Take 1 capsule by mouth in the morning and 1 capsule at noon and 1 capsule in the evening. [facility] hydrALAZINE 25 mg tablet 08-17 00:00: 00 Yes [id number] 25mg Take 1 tablet by mouth every 6 (six) hours. [facility] metFORMIN 1,000 mg tablet 08-17 00:00: 00 Yes [id number] 1000mg Take 1 tablet by mouth in the morning and 1 tablet in the evening. Take with meals. [facility] risperiDONE 1 mg tablet 08-17 00:00: 00 Yes [id number] 1mg Take 1 tablet by mouth in the morning and 1 tablet in the evening. [facility] pantoprazol e 40 mg EC tablet 08-17 00:00: 00 Yes [id number] 40mg Take 1 tablet by mouth in the morning. [facility] lisinopriL 40 mg tablet 08-17 00:00: 00 Yes [id number] 40mg Take 1 tablet by mouth in the morning. [facility] hydrOXYzine 10 mg tablet 08-17 00:00: 00 Yes [id number] 10mg Take 1 tablet by mouth every 6 (six) hours as needed for Itching. [facility] amLODIPine 10 mg tablet 08-17 00:00: 00 Yes [id number] 10mg Take 1 tablet by mouth in the morning. [facility] atorvastati n 20 mg tablet 08-17 00:00: 00 Yes [id number] 20mg Take 1 tablet by mouth at bedtime. [facility] carvediloL (COREG) 25 mg tablet 08-17 00:00: 00 Yes [id number] 25mg Take 1 tablet by mouth in the morning and 1 tablet in the evening. Take with meals. [facility] diphenhydrA MINE 25 mg tablet 08-17 00:00: 00 Yes [id number] 25mg Take 1 tablet by mouth as needed for Allergies (Before infusion). [facility] ferrous sulfate 325 mg (65 mg iron) tablet 08-17 00:00: 00 Yes [id number] 325mg Take 1 tablet by mouth every other day. [facility] gabapentin 300 mg capsule 08-17 00:00: 00 Yes [id number] 300mg Take 1 capsule by mouth in the morning and 1 capsule at noon and 1 capsule in the evening. [facility] hydrALAZINE 25 mg tablet 08-17 00:00: 00 Yes [id number] 25mg Take 1 tablet by mouth every 6 (six) hours. [facility] metFORMIN 1,000 mg tablet 08-17 00:00: 00 Yes [id number] 1000mg Take 1 tablet by mouth in the morning and 1 tablet in the evening. Take with meals. [facility] risperiDONE 1 mg tablet 08-17 00:00: 00 Yes [id number] 1mg Take 1 tablet by mouth in the morning and 1 tablet in the evening. [facility] pantoprazol e 40 mg EC tablet 08-17 00:00: 00 Yes [id number] 40mg Take 1 tablet by mouth in the morning. [facility] lisinopriL 40 mg tablet 08-17 00:00: 00 Yes [id number] 40mg Take 1 tablet by mouth in the morning. [facility] hydrOXYzine 10 mg tablet 08-17 00:00: 00 Yes [id number] 10mg Take 1 tablet by mouth every 6 (six) hours as needed for Itching. [facility] amLODIPine 10 mg tablet 08-17 00:00: 00 Yes [id number] 10mg Take 1 tablet by mouth in the morning. [facility] atorvastati n 20 mg tablet 08-17 00:00: 00 Yes [id number] 20mg Take 1 tablet by mouth at bedtime. [facility] carvediloL (COREG) 25 mg tablet 08-17 00:00: 00 Yes [id number] 25mg Take 1 tablet by mouth in the morning and 1 tablet in the evening. Take with meals. [facility] diphenhydrA MINE 25 mg tablet 08-17 00:00: 00 Yes [id number] 25mg Take 1 tablet by mouth as needed for Allergies (Before infusion). [facility] ferrous sulfate 325 mg (65 mg iron) tablet 08-17 00:00: 00 Yes [id number] 325mg Take 1 tablet by mouth every other day. [facility] gabapentin 300 mg capsule 08-17 00:00: 00 Yes [id number] 300mg Take 1 capsule by mouth in the morning and 1 capsule at noon and 1 capsule in the evening. [facility] hydrALAZINE 25 mg tablet 08-17 00:00: 00 Yes [id number] 25mg Take 1 tablet by mouth every 6 (six) hours. [facility] metFORMIN 1,000 mg tablet 08-17 00:00: 00 Yes [id number] 1000mg Take 1 tablet by mouth in the morning and 1 tablet in the evening. Take with meals. [facility] risperiDONE 1 mg tablet 08-17 00:00: 00 Yes [id number] 1mg Take 1 tablet by mouth in the morning and 1 tablet in the evening. [facility] pantoprazol e 40 mg EC tablet 08-17 00:00: 00 Yes [id number] 40mg Take 1 tablet by mouth in the morning. [facility] lisinopriL 40 mg tablet 08-17 00:00: 00 Yes [id number] 40mg Take 1 tablet by mouth in the morning. [facility] hydrOXYzine 10 mg tablet 08-17 00:00: 00 Yes [id number] 10mg Take 1 tablet by mouth every 6 (six) hours as needed for Itching. [facility] amLODIPine 10 mg tablet 08-17 00:00: 00 Yes [id number] 10mg Take 1 tablet by mouth in the morning. [facility] atorvastati n 20 mg tablet 08-17 00:00: 00 Yes [id number] 20mg Take 1 tablet by mouth at bedtime. [facility] carvediloL (COREG) 25 mg tablet 08-17 00:00: 00 Yes [id number] 25mg Take 1 tablet by mouth in the morning and 1 tablet in the evening. Take with meals. [facility] diphenhydrA MINE 25 mg tablet 08-17 00:00: 00 Yes [id number] 25mg Take 1 tablet by mouth as needed for Allergies (Before infusion). [facility] ferrous sulfate 325 mg (65 mg iron) tablet 08-17 00:00: 00 Yes [id number] 325mg Take 1 tablet by mouth every other day. [facility] gabapentin 300 mg capsule 08-17 00:00: 00 Yes [id number] 300mg Take 1 capsule by mouth in the morning and 1 capsule at noon and 1 capsule in the evening. [facility] hydrALAZINE 25 mg tablet 08-17 00:00: 00 Yes [id number] 25mg Take 1 tablet by mouth every 6 (six) hours. [facility] metFORMIN 1,000 mg tablet 08-17 00:00: 00 Yes [id number] 1000mg Take 1 tablet by mouth in the morning and 1 tablet in the evening. Take with meals. [facility] risperiDONE 1 mg tablet 08-17 00:00: 00 Yes [id number] 1mg Take 1 tablet by mouth in the morning and 1 tablet in the evening. [facility] pantoprazol e 40 mg EC tablet 08-17 00:00: 00 Yes [id number] 40mg Take 1 tablet by mouth in the morning. [facility] lisinopriL 40 mg tablet 08-17 00:00: 00 Yes [id number] 40mg Take 1 tablet by mouth in the morning. [facility] hydrOXYzine 10 mg tablet 08-17 00:00: 00 Yes [id number] 10mg Take 1 tablet by mouth every 6 (six) hours as needed for Itching. [facility] amLODIPine 10 mg tablet 08-17 00:00: 00 Yes [id number] 10mg Take 1 tablet by mouth in the morning. [facility] atorvastati n 20 mg tablet 08-17 00:00: 00 Yes [id number] 20mg Take 1 tablet by mouth at bedtime. [facility] carvediloL (COREG) 25 mg tablet 08-17 00:00: 00 Yes [id number] 25mg Take 1 tablet by mouth in the morning and 1 tablet in the evening. Take with meals. [facility] diphenhydrA MINE 25 mg tablet 08-17 00:00: 00 Yes [id number] 25mg Take 1 tablet by mouth as needed for Allergies (Before infusion). [facility] ferrous sulfate 325 mg (65 mg iron) tablet 08-17 00:00: 00 Yes [id number] 325mg Take 1 tablet by mouth every other day. [facility] gabapentin 300 mg capsule 08-17 00:00: 00 Yes [id number] 300mg Take 1 capsule by mouth in the morning and 1 capsule at noon and 1 capsule in the evening. [facility] hydrALAZINE 25 mg tablet 08-17 00:00: 00 Yes [id number] 25mg Take 1 tablet by mouth every 6 (six) hours. [facility] metFORMIN 1,000 mg tablet 08-17 00:00: 00 Yes [id number] 1000mg Take 1 tablet by mouth in the morning and 1 tablet in the evening. Take with meals. [facility] risperiDONE 1 mg tablet 08-17 00:00: 00 Yes [id number] 1mg Take 1 tablet by mouth in the morning and 1 tablet in the evening. [facility] pantoprazol e 40 mg EC tablet 08-17 00:00: 00 Yes [id number] 40mg Take 1 tablet by mouth in the morning. [facility] lisinopriL 40 mg tablet 08-17 00:00: 00 Yes [id number] 40mg Take 1 tablet by mouth in the morning. [facility] hydrOXYzine 10 mg tablet 08-17 00:00: 00 Yes [id number] 10mg Take 1 tablet by mouth every 6 (six) hours as needed for Itching. [facility] amLODIPine 10 mg tablet 08-17 00:00: 00 Yes [id number] 10mg Take 1 tablet by mouth in the morning. [facility] atorvastati n 20 mg tablet 08-17 00:00: 00 Yes [id number] 20mg Take 1 tablet by mouth at bedtime. [facility] carvediloL (COREG) 25 mg tablet 08-17 00:00: 00 Yes [id number] 25mg Take 1 tablet by mouth in the morning and 1 tablet in the evening. Take with meals. [facility] diphenhydrA MINE 25 mg tablet 08-17 00:00: 00 Yes [id number] 25mg Take 1 tablet by mouth as needed for Allergies (Before infusion). [facility] ferrous sulfate 325 mg (65 mg iron) tablet 08-17 00:00: 00 Yes [id number] 325mg Take 1 tablet by mouth every other day. [facility] gabapentin 300 mg capsule 08-17 00:00: 00 Yes [id number] 300mg Take 1 capsule by mouth in the morning and 1 capsule at noon and 1 capsule in the evening. [facility] hydrALAZINE 25 mg tablet 08-17 00:00: 00 Yes [id number] 25mg Take 1 tablet by mouth every 6 (six) hours. [facility] metFORMIN 1,000 mg tablet 08-17 00:00: 00 Yes [id number] 1000mg Take 1 tablet by mouth in the morning and 1 tablet in the evening. Take with meals. [facility] risperiDONE 1 mg tablet 08-17 00:00: 00 Yes [id number] 1mg Take 1 tablet by mouth in the morning and 1 tablet in the evening. [facility] pantoprazol e 40 mg EC tablet 08-17 00:00: 00 Yes [id number] 40mg Take 1 tablet by mouth in the morning. [facility] lisinopriL 40 mg tablet 08-17 00:00: 00 Yes [id number] 40mg Take 1 tablet by mouth in the morning. [facility] hydrOXYzine 10 mg tablet 08-17 00:00: 00 Yes [id number] 10mg Take 1 tablet by mouth every 6 (six) hours as needed for Itching. [facility] amLODIPine 10 mg tablet 08-17 00:00: 00 Yes [id number] 10mg Take 1 tablet by mouth in the morning. [facility] atorvastati n 20 mg tablet 08-17 00:00: 00 Yes [id number] 20mg Take 1 tablet by mouth at bedtime. [facility] carvediloL (COREG) 25 mg tablet 08-17 00:00: 00 Yes [id number] 25mg Take 1 tablet by mouth in the morning and 1 tablet in the evening. Take with meals. [facility] diphenhydrA MINE 25 mg tablet 08-17 00:00: 00 Yes [id number] 25mg Take 1 tablet by mouth as needed for Allergies (Before infusion). [facility] ferrous sulfate 325 mg (65 mg iron) tablet 08-17 00:00: 00 Yes [id number] 325mg Take 1 tablet by mouth every other day. [facility] gabapentin 300 mg capsule 08-17 00:00: 00 Yes [id number] 300mg Take 1 capsule by mouth in the morning and 1 capsule at noon and 1 capsule in the evening. [facility] hydrALAZINE 25 mg tablet 08-17 00:00: 00 Yes [id number] 25mg Take 1 tablet by mouth every 6 (six) hours. [facility] metFORMIN 1,000 mg tablet 08-17 00:00: 00 Yes [id number] 1000mg Take 1 tablet by mouth in the morning and 1 tablet in the evening. Take with meals. [facility] risperiDONE 1 mg tablet 08-17 00:00: 00 Yes [id number] 1mg Take 1 tablet by mouth in the morning and 1 tablet in the evening. [facility] pantoprazol e 40 mg EC tablet 08-17 00:00: 00 Yes [id number] 40mg Take 1 tablet by mouth in the morning. [facility] lisinopriL 40 mg tablet 08-17 00:00: 00 Yes [id number] 40mg Take 1 tablet by mouth in the morning. [facility] hydrOXYzine 10 mg tablet 08-17 00:00: 00 Yes [id number] 10mg Take 1 tablet by mouth every 6 (six) hours as needed for Itching. [facility] amLODIPine 10 mg tablet 08-17 00:00: 00 Yes [id number] 10mg Take 1 tablet by mouth in the morning. [facility] atorvastati n 20 mg tablet 08-17 00:00: 00 Yes [id number] 20mg Take 1 tablet by mouth at bedtime. [facility] carvediloL (COREG) 25 mg tablet 08-17 00:00: 00 Yes [id number] 25mg Take 1 tablet by mouth in the morning and 1 tablet in the evening. Take with meals. [facility] diphenhydrA MINE 25 mg tablet 08-17 00:00: 00 Yes [id number] 25mg Take 1 tablet by mouth as needed for Allergies (Before infusion). [facility] ferrous sulfate 325 mg (65 mg iron) tablet 08-17 00:00: 00 Yes [id number] 325mg Take 1 tablet by mouth every other day. [facility] gabapentin 300 mg capsule 08-17 00:00: 00 Yes [id number] 300mg Take 1 capsule by mouth in the morning and 1 capsule at noon and 1 capsule in the evening. [facility] hydrALAZINE 25 mg tablet 08-17 00:00: 00 Yes [id number] 25mg Take 1 tablet by mouth every 6 (six) hours. [facility] metFORMIN 1,000 mg tablet 08-17 00:00: 00 Yes [id number] 1000mg Take 1 tablet by mouth in the morning and 1 tablet in the evening. Take with meals. [facility] risperiDONE 1 mg tablet 08-17 00:00: 00 Yes [id number] 1mg Take 1 tablet by mouth in the morning and 1 tablet in the evening. [facility] pantoprazol e 40 mg EC tablet 08-17 00:00: 00 Yes [id number] 40mg Take 1 tablet by mouth in the morning. [facility] lisinopriL 40 mg tablet 08-17 00:00: 00 Yes [id number] 40mg Take 1 tablet by mouth in the morning. [facility] hydrOXYzine 10 mg tablet 08-17 00:00: 00 Yes [id number] 10mg Take 1 tablet by mouth every 6 (six) hours as needed for Itching. [facility] amLODIPine 10 mg tablet 08-17 00:00: 00 Yes [id number] 10mg Take 1 tablet by mouth in the morning. [facility] atorvastati n 20 mg tablet 08-17 00:00: 00 Yes [id number] 20mg Take 1 tablet by mouth at bedtime. [facility] carvediloL (COREG) 25 mg tablet 08-17 00:00: 00 Yes [id number] 25mg Take 1 tablet by mouth in the morning and 1 tablet in the evening. Take with meals. [facility] diphenhydrA MINE 25 mg tablet 08-17 00:00: 00 Yes [id number] 25mg Take 1 tablet by mouth as needed for Allergies (Before infusion). [facility] ferrous sulfate 325 mg (65 mg iron) tablet 08-17 00:00: 00 Yes [id number] 325mg Take 1 tablet by mouth every other day. [facility] gabapentin 300 mg capsule 08-17 00:00: 00 Yes [id number] 300mg Take 1 capsule by mouth in the morning and 1 capsule at noon and 1 capsule in the evening. [facility] hydrALAZINE 25 mg tablet 08-17 00:00: 00 Yes [id number] 25mg Take 1 tablet by mouth every 6 (six) hours. [facility] metFORMIN 1,000 mg tablet 08-17 00:00: 00 Yes [id number] 1000mg Take 1 tablet by mouth in the morning and 1 tablet in the evening. Take with meals. [facility] risperiDONE 1 mg tablet 08-17 00:00: 00 Yes [id number] 1mg Take 1 tablet by mouth in the morning and 1 tablet in the evening. [facility] pantoprazol e 40 mg EC tablet 08-17 00:00: 00 Yes [id number] 40mg Take 1 tablet by mouth in the morning. [facility] lisinopriL 40 mg tablet 08-17 00:00: 00 Yes [id number] 40mg Take 1 tablet by mouth in the morning. [facility] hydrOXYzine 10 mg tablet 08-17 00:00: 00 Yes [id number] 10mg Take 1 tablet by mouth every 6 (six) hours as needed for Itching. [facility] amLODIPine 10 mg tablet 08-17 00:00: 00 Yes [id number] 10mg Take 1 tablet by mouth in the morning. [facility] atorvastati n 20 mg tablet 08-17 00:00: 00 Yes [id number] 20mg Take 1 tablet by mouth at bedtime. [facility] carvediloL (COREG) 25 mg tablet 08-17 00:00: 00 Yes [id number] 25mg Take 1 tablet by mouth in the morning and 1 tablet in the evening. Take with meals. [facility] diphenhydrA MINE 25 mg tablet 08-17 00:00: 00 Yes [id number] 25mg Take 1 tablet by mouth as needed for Allergies (Before infusion). [facility] ferrous sulfate 325 mg (65 mg iron) tablet 08-17 00:00: 00 Yes [id number] 325mg Take 1 tablet by mouth every other day. [facility] gabapentin 300 mg capsule 08-17 00:00: 00 Yes [id number] 300mg Take 1 capsule by mouth in the morning and 1 capsule at noon and 1 capsule in the evening. [facility] hydrALAZINE 25 mg tablet 08-17 00:00: 00 Yes [id number] 25mg Take 1 tablet by mouth every 6 (six) hours. [facility] metFORMIN 1,000 mg tablet 08-17 00:00: 00 Yes [id number] 1000mg Take 1 tablet by mouth in the morning and 1 tablet in the evening. Take with meals. [facility] risperiDONE 1 mg tablet 08-17 00:00: 00 Yes [id number] 1mg Take 1 tablet by mouth in the morning and 1 tablet in the evening. [facility] pantoprazol e 40 mg EC tablet 08-17 00:00: 00 Yes [id number] 40mg Take 1 tablet by mouth in the morning. [facility] lisinopriL 40 mg tablet 08-17 00:00: 00 Yes [id number] 40mg Take 1 tablet by mouth in the morning. [facility] hydrOXYzine 10 mg tablet 08-17 00:00: 00 Yes [id number] 10mg Take 1 tablet by mouth every 6 (six) hours as needed for Itching. [facility] amLODIPine 10 mg tablet 08-17 00:00: 00 Yes [id number] 10mg Take 1 tablet by mouth in the morning. [facility] atorvastati n 20 mg tablet 08-17 00:00: 00 Yes [id number] 20mg Take 1 tablet by mouth at bedtime. [facility] carvediloL (COREG) 25 mg tablet 08-17 00:00: 00 Yes [id number] 25mg Take 1 tablet by mouth in the morning and 1 tablet in the evening. Take with meals. [facility] diphenhydrA MINE 25 mg tablet 08-17 00:00: 00 Yes [id number] 25mg Take 1 tablet by mouth as needed for Allergies (Before infusion). [facility] ferrous sulfate 325 mg (65 mg iron) tablet 08-17 00:00: 00 Yes [id number] 325mg Take 1 tablet by mouth every other day. [facility] gabapentin 300 mg capsule 08-17 00:00: 00 Yes [id number] 300mg Take 1 capsule by mouth in the morning and 1 capsule at noon and 1 capsule in the evening. [facility] hydrALAZINE 25 mg tablet 08-17 00:00: 00 Yes [id number] 25mg Take 1 tablet by mouth every 6 (six) hours. [facility] metFORMIN 1,000 mg tablet 08-17 00:00: 00 Yes [id number] 1000mg Take 1 tablet by mouth in the morning and 1 tablet in the evening. Take with meals. [facility] risperiDONE 1 mg tablet 08-17 00:00: 00 Yes [id number] 1mg Take 1 tablet by mouth in the morning and 1 tablet in the evening. [facility] pantoprazol e 40 mg EC tablet 08-17 00:00: 00 Yes [id number] 40mg Take 1 tablet by mouth in the morning. [facility] lisinopriL 40 mg tablet 08-17 00:00: 00 Yes [id number] 40mg Take 1 tablet by mouth in the morning. [facility] hydrOXYzine 10 mg tablet 08-17 00:00: 00 Yes [id number] 10mg Take 1 tablet by mouth every 6 (six) hours as needed for Itching. [facility] amLODIPine 10 mg tablet 08-17 00:00: 00 Yes [id number] 10mg Take 1 tablet by mouth in the morning. [facility] atorvastati n 20 mg tablet 08-17 00:00: 00 Yes [id number] 20mg Take 1 tablet by mouth at bedtime. [facility] carvediloL (COREG) 25 mg tablet 08-17 00:00: 00 Yes [id number] 25mg Take 1 tablet by mouth in the morning and 1 tablet in the evening. Take with meals. [facility] diphenhydrA MINE 25 mg tablet 08-17 00:00: 00 Yes [id number] 25mg Take 1 tablet by mouth as needed for Allergies (Before infusion). [facility] ferrous sulfate 325 mg (65 mg iron) tablet 08-17 00:00: 00 Yes [id number] 325mg Take 1 tablet by mouth every other day. [facility] gabapentin 300 mg capsule 08-17 00:00: 00 Yes [id number] 300mg Take 1 capsule by mouth in the morning and 1 capsule at noon and 1 capsule in the evening. [facility] hydrALAZINE 25 mg tablet 08-17 00:00: 00 Yes [id number] 25mg Take 1 tablet by mouth every 6 (six) hours. [facility] metFORMIN 1,000 mg tablet 08-17 00:00: 00 Yes [id number] 1000mg Take 1 tablet by mouth in the morning and 1 tablet in the evening. Take with meals. [facility] risperiDONE 1 mg tablet 08-17 00:00: 00 Yes [id number] 1mg Take 1 tablet by mouth in the morning and 1 tablet in the evening. [facility] pantoprazol e 40 mg EC tablet 08-17 00:00: 00 Yes [id number] 40mg Take 1 tablet by mouth in the morning. [facility] lisinopriL 40 mg tablet 08-17 00:00: 00 Yes [id number] 40mg Take 1 tablet by mouth in the morning. [facility] hydrOXYzine 10 mg tablet 08-17 00:00: 00 Yes [id number] 10mg Take 1 tablet by mouth every 6 (six) hours as needed for Itching. [facility] amLODIPine 10 mg tablet 08-17 00:00: 00 Yes [id number] 10mg Take 1 tablet by mouth in the morning. [facility] atorvastati n 20 mg tablet 08-17 00:00: 00 Yes [id number] 20mg Take 1 tablet by mouth at bedtime. [facility] carvediloL (COREG) 25 mg tablet 08-17 00:00: 00 Yes [id number] 25mg Take 1 tablet by mouth in the morning and 1 tablet in the evening. Take with meals. [facility] diphenhydrA MINE 25 mg tablet 08-17 00:00: 00 Yes [id number] 25mg Take 1 tablet by mouth as needed for Allergies (Before infusion). [facility] ferrous sulfate 325 mg (65 mg iron) tablet 08-17 00:00: 00 Yes [id number] 325mg Take 1 tablet by mouth every other day. [facility] gabapentin 300 mg capsule 08-17 00:00: 00 Yes [id number] 300mg Take 1 capsule by mouth in the morning and 1 capsule at noon and 1 capsule in the evening. [facility] hydrALAZINE 25 mg tablet 08-17 00:00: 00 Yes [id number] 25mg Take 1 tablet by mouth every 6 (six) hours. [facility] metFORMIN 1,000 mg tablet 08-17 00:00: 00 Yes [id number] 1000mg Take 1 tablet by mouth in the morning and 1 tablet in the evening. Take with meals. [facility] risperiDONE 1 mg tablet 08-17 00:00: 00 Yes [id number] 1mg Take 1 tablet by mouth in the morning and 1 tablet in the evening. [facility] pantoprazol e 40 mg EC tablet 08-17 00:00: 00 Yes [id number] 40mg Take 1 tablet by mouth in the morning. [facility] lisinopriL 40 mg tablet 08-17 00:00: 00 Yes [id number] 40mg Take 1 tablet by mouth in the morning. [facility] hydrOXYzine 10 mg tablet 08-17 00:00: 00 Yes [id number] 10mg Take 1 tablet by mouth every 6 (six) hours as needed for Itching. [facility] amLODIPine 10 mg tablet 08-17 00:00: 00 Yes [id number] 10mg Take 1 tablet by mouth in the morning. [facility] atorvastati n 20 mg tablet 08-17 00:00: 00 Yes [id number] 20mg Take 1 tablet by mouth at bedtime. [facility] carvediloL (COREG) 25 mg tablet 08-17 00:00: 00 Yes [id number] 25mg Take 1 tablet by mouth in the morning and 1 tablet in the evening. Take with meals. [facility] diphenhydrA MINE 25 mg tablet 08-17 00:00: 00 Yes [id number] 25mg Take 1 tablet by mouth as needed for Allergies (Before infusion). [facility] ferrous sulfate 325 mg (65 mg iron) tablet 08-17 00:00: 00 Yes [id number] 325mg Take 1 tablet by mouth every other day. [facility] gabapentin 300 mg capsule 08-17 00:00: 00 Yes [id number] 300mg Take 1 capsule by mouth in the morning and 1 capsule at noon and 1 capsule in the evening. [facility] hydrALAZINE 25 mg tablet 08-17 00:00: 00 Yes [id number] 25mg Take 1 tablet by mouth every 6 (six) hours. [facility] metFORMIN 1,000 mg tablet 08-17 00:00: 00 Yes [id number] 1000mg Take 1 tablet by mouth in the morning and 1 tablet in the evening. Take with meals. [facility] risperiDONE 1 mg tablet 08-17 00:00: 00 Yes [id number] 1mg Take 1 tablet by mouth in the morning and 1 tablet in the evening. [facility] pantoprazol e 40 mg EC tablet 08-17 00:00: 00 Yes [id number] 40mg Take 1 tablet by mouth in the morning. [facility] lisinopriL 40 mg tablet 08-17 00:00: 00 Yes [id number] 40mg Take 1 tablet by mouth in the morning. [facility] hydrOXYzine 10 mg tablet 08-17 00:00: 00 Yes [id number] 10mg Take 1 tablet by mouth every 6 (six) hours as needed for Itching. [facility] amLODIPine 10 mg tablet 08-17 00:00: 00 Yes [id number] 10mg Take 1 tablet by mouth in the morning. [facility] atorvastati n 20 mg tablet 08-17 00:00: 00 Yes [id number] 20mg Take 1 tablet by mouth at bedtime. [facility] carvediloL (COREG) 25 mg tablet 08-17 00:00: 00 Yes [id number] 25mg Take 1 tablet by mouth in the morning and 1 tablet in the evening. Take with meals. [facility] diphenhydrA MINE 25 mg tablet 08-17 00:00: 00 Yes [id number] 25mg Take 1 tablet by mouth as needed for Allergies (Before infusion). [facility] ferrous sulfate 325 mg (65 mg iron) tablet 08-17 00:00: 00 Yes [id number] 325mg Take 1 tablet by mouth every other day. [facility] gabapentin 300 mg capsule 08-17 00:00: 00 Yes [id number] 300mg Take 1 capsule by mouth in the morning and 1 capsule at noon and 1 capsule in the evening. [facility] hydrALAZINE 25 mg tablet 08-17 00:00: 00 Yes [id number] 25mg Take 1 tablet by mouth every 6 (six) hours. [facility] metFORMIN 1,000 mg tablet 08-17 00:00: 00 Yes [id number] 1000mg Take 1 tablet by mouth in the morning and 1 tablet in the evening. Take with meals. [facility] risperiDONE 1 mg tablet 08-17 00:00: 00 Yes [id number] 1mg Take 1 tablet by mouth in the morning and 1 tablet in the evening. [facility] pantoprazol e 40 mg EC tablet 08-17 00:00: 00 Yes [id number] 40mg Take 1 tablet by mouth in the morning. [facility] lisinopriL 40 mg tablet 08-17 00:00: 00 Yes [id number] 40mg Take 1 tablet by mouth in the morning. [facility] hydrOXYzine 10 mg tablet 08-17 00:00: 00 Yes [id number] 10mg Take 1 tablet by mouth every 6 (six) hours as needed for Itching. [facility] amLODIPine 10 mg tablet 08-17 00:00: 00 Yes [id number] 10mg Take 1 tablet by mouth in the morning. [facility] atorvastati n 20 mg tablet 08-17 00:00: 00 Yes [id number] 20mg Take 1 tablet by mouth at bedtime. [facility] carvediloL (COREG) 25 mg tablet 08-17 00:00: 00 Yes [id number] 25mg Take 1 tablet by mouth in the morning and 1 tablet in the evening. Take with meals. [facility] diphenhydrA MINE 25 mg tablet 08-17 00:00: 00 Yes [id number] 25mg Take 1 tablet by mouth as needed for Allergies (Before infusion). [facility] ferrous sulfate 325 mg (65 mg iron) tablet 08-17 00:00: 00 Yes [id number] 325mg Take 1 tablet by mouth every other day. [facility] gabapentin 300 mg capsule 08-17 00:00: 00 Yes [id number] 300mg Take 1 capsule by mouth in the morning and 1 capsule at noon and 1 capsule in the evening. [facility] hydrALAZINE 25 mg tablet 08-17 00:00: 00 Yes [id number] 25mg Take 1 tablet by mouth every 6 (six) hours. [facility] metFORMIN 1,000 mg tablet 08-17 00:00: 00 Yes [id number] 1000mg Take 1 tablet by mouth in the morning and 1 tablet in the evening. Take with meals. [facility] risperiDONE 1 mg tablet 08-17 00:00: 00 Yes [id number] 1mg Take 1 tablet by mouth in the morning and 1 tablet in the evening. [facility] pantoprazol e 40 mg EC tablet 08-17 00:00: 00 Yes [id number] 40mg Take 1 tablet by mouth in the morning. [facility] lisinopriL 40 mg tablet 08-17 00:00: 00 Yes [id number] 40mg Take 1 tablet by mouth in the morning. [facility] hydrOXYzine 10 mg tablet 08-17 00:00: 00 Yes [id number] 10mg Take 1 tablet by mouth every 6 (six) hours as needed for Itching. [facility] amLODIPine 10 mg tablet 08-17 00:00: 00 Yes [id number] 10mg Take 1 tablet by mouth in the morning. [facility] atorvastati n 20 mg tablet 08-17 00:00: 00 Yes [id number] 20mg Take 1 tablet by mouth at bedtime. [facility] carvediloL (COREG) 25 mg tablet 08-17 00:00: 00 Yes [id number] 25mg Take 1 tablet by mouth in the morning and 1 tablet in the evening. Take with meals. [facility] diphenhydrA MINE 25 mg tablet 08-17 00:00: 00 Yes [id number] 25mg Take 1 tablet by mouth as needed for Allergies (Before infusion). [facility] ferrous sulfate 325 mg (65 mg iron) tablet 08-17 00:00: 00 Yes [id number] 325mg Take 1 tablet by mouth every other day. [facility] gabapentin 300 mg capsule 08-17 00:00: 00 Yes [id number] 300mg Take 1 capsule by mouth in the morning and 1 capsule at noon and 1 capsule in the evening. [facility] hydrALAZINE 25 mg tablet 08-17 00:00: 00 Yes [id number] 25mg Take 1 tablet by mouth every 6 (six) hours. [facility] metFORMIN 1,000 mg tablet 08-17 00:00: 00 Yes [id number] 1000mg Take 1 tablet by mouth in the morning and 1 tablet in the evening. Take with meals. [facility] risperiDONE 1 mg tablet 08-17 00:00: 00 Yes [id number] 1mg Take 1 tablet by mouth in the morning and 1 tablet in the evening. [facility] pantoprazol e 40 mg EC tablet 08-17 00:00: 00 Yes [id number] 40mg Take 1 tablet by mouth in the morning. [facility] lisinopriL 40 mg tablet 08-17 00:00: 00 Yes [id number] 40mg Take 1 tablet by mouth in the morning. [facility] hydrOXYzine 10 mg tablet 08-17 00:00: 00 Yes [id number] 10mg Take 1 tablet by mouth every 6 (six) hours as needed for Itching. [facility] amLODIPine 10 mg tablet 08-17 00:00: 00 Yes [id number] 10mg Take 1 tablet by mouth in the morning. [facility] atorvastati n 20 mg tablet 08-17 00:00: 00 Yes [id number] 20mg Take 1 tablet by mouth at bedtime. [facility] carvediloL (COREG) 25 mg tablet 08-17 00:00: 00 Yes [id number] 25mg Take 1 tablet by mouth in the morning and 1 tablet in the evening. Take with meals. [facility] diphenhydrA MINE 25 mg tablet 08-17 00:00: 00 Yes [id number] 25mg Take 1 tablet by mouth as needed for Allergies (Before infusion). [facility] ferrous sulfate 325 mg (65 mg iron) tablet 08-17 00:00: 00 Yes [id number] 325mg Take 1 tablet by mouth every other day. [facility] gabapentin 300 mg capsule 08-17 00:00: 00 Yes [id number] 300mg Take 1 capsule by mouth in the morning and 1 capsule at noon and 1 capsule in the evening. [facility] hydrALAZINE 25 mg tablet 08-17 00:00: 00 Yes [id number] 25mg Take 1 tablet by mouth every 6 (six) hours. [facility] metFORMIN 1,000 mg tablet 08-17 00:00: 00 Yes [id number] 1000mg Take 1 tablet by mouth in the morning and 1 tablet in the evening. Take with meals. [facility] risperiDONE 1 mg tablet 08-17 00:00: 00 Yes [id number] 1mg Take 1 tablet by mouth in the morning and 1 tablet in the evening. [facility] pantoprazol e 40 mg EC tablet 08-17 00:00: 00 Yes [id number] 40mg Take 1 tablet by mouth in the morning. [facility] lisinopriL 40 mg tablet 08-17 00:00: 00 Yes [id number] 40mg Take 1 tablet by mouth in the morning. [facility] hydrOXYzine 10 mg tablet 08-17 00:00: 00 Yes [id number] 10mg Take 1 tablet by mouth every 6 (six) hours as needed for Itching. [facility] amLODIPine 10 mg tablet 08-17 00:00: 00 Yes [id number] 10mg Take 1 tablet by mouth in the morning. [facility] atorvastati n 20 mg tablet 08-17 00:00: 00 Yes [id number] 20mg Take 1 tablet by mouth at bedtime. [facility] carvediloL (COREG) 25 mg tablet 08-17 00:00: 00 Yes [id number] 25mg Take 1 tablet by mouth in the morning and 1 tablet in the evening. Take with meals. [facility] diphenhydrA MINE 25 mg tablet 08-17 00:00: 00 Yes [id number] 25mg Take 1 tablet by mouth as needed for Allergies (Before infusion). [facility] ferrous sulfate 325 mg (65 mg iron) tablet 08-17 00:00: 00 Yes [id number] 325mg Take 1 tablet by mouth every other day. [facility] gabapentin 300 mg capsule 08-17 00:00: 00 Yes [id number] 300mg Take 1 capsule by mouth in the morning and 1 capsule at noon and 1 capsule in the evening. [facility] hydrALAZINE 25 mg tablet 08-17 00:00: 00 Yes [id number] 25mg Take 1 tablet by mouth every 6 (six) hours. [facility] metFORMIN 1,000 mg tablet 08-17 00:00: 00 Yes [id number] 1000mg Take 1 tablet by mouth in the morning and 1 tablet in the evening. Take with meals. [facility] risperiDONE 1 mg tablet 08-17 00:00: 00 Yes [id number] 1mg Take 1 tablet by mouth in the morning and 1 tablet in the evening. [facility] pantoprazol e 40 mg EC tablet 08-17 00:00: 00 Yes [id number] 40mg Take 1 tablet by mouth in the morning. [facility] lisinopriL 40 mg tablet 08-17 00:00: 00 Yes [id number] 40mg Take 1 tablet by mouth in the morning. [facility] hydrOXYzine 10 mg tablet 08-17 00:00: 00 Yes [id number] 10mg Take 1 tablet by mouth every 6 (six) hours as needed for Itching. [facility] amLODIPine 10 mg tablet 08-17 00:00: 00 Yes [id number] 10mg Take 1 tablet by mouth in the morning. [facility] atorvastati n 20 mg tablet 08-17 00:00: 00 Yes [id number] 20mg Take 1 tablet by mouth at bedtime. [facility] carvediloL (COREG) 25 mg tablet 08-17 00:00: 00 Yes [id number] 25mg Take 1 tablet by mouth in the morning and 1 tablet in the evening. Take with meals. [facility] diphenhydrA MINE 25 mg tablet 08-17 00:00: 00 Yes [id number] 25mg Take 1 tablet by mouth as needed for Allergies (Before infusion). [facility] ferrous sulfate 325 mg (65 mg iron) tablet 08-17 00:00: 00 Yes [id number] 325mg Take 1 tablet by mouth every other day. [facility] gabapentin 300 mg capsule 08-17 00:00: 00 Yes [id number] 300mg Take 1 capsule by mouth in the morning and 1 capsule at noon and 1 capsule in the evening. [facility] hydrALAZINE 25 mg tablet 08-17 00:00: 00 Yes [id number] 25mg Take 1 tablet by mouth every 6 (six) hours. [facility] metFORMIN 1,000 mg tablet 08-17 00:00: 00 Yes [id number] 1000mg Take 1 tablet by mouth in the morning and 1 tablet in the evening. Take with meals. [facility] risperiDONE 1 mg tablet 08-17 00:00: 00 Yes [id number] 1mg Take 1 tablet by mouth in the morning and 1 tablet in the evening. [facility] pantoprazol e 40 mg EC tablet 08-17 00:00: 00 Yes [id number] 40mg Take 1 tablet by mouth in the morning. [facility] lisinopriL 40 mg tablet 08-17 00:00: 00 Yes [id number] 40mg Take 1 tablet by mouth in the morning. [facility] hydrOXYzine 10 mg tablet 08-17 00:00: 00 Yes [id number] 10mg Take 1 tablet by mouth every 6 (six) hours as needed for Itching. [facility] amLODIPine 10 mg tablet 08-17 00:00: 00 Yes [id number] 10mg Take 1 tablet by mouth in the morning. [facility] atorvastati n 20 mg tablet 08-17 00:00: 00 Yes [id number] 20mg Take 1 tablet by mouth at bedtime. [facility] carvediloL (COREG) 25 mg tablet 08-17 00:00: 00 Yes [id number] 25mg Take 1 tablet by mouth in the morning and 1 tablet in the evening. Take with meals. [facility] diphenhydrA MINE 25 mg tablet 08-17 00:00: 00 Yes [id number] 25mg Take 1 tablet by mouth as needed for Allergies (Before infusion). [facility] ferrous sulfate 325 mg (65 mg iron) tablet 08-17 00:00: 00 Yes [id number] 325mg Take 1 tablet by mouth every other day. [facility] gabapentin 300 mg capsule 08-17 00:00: 00 Yes [id number] 300mg Take 1 capsule by mouth in the morning and 1 capsule at noon and 1 capsule in the evening. [facility] hydrALAZINE 25 mg tablet 08-17 00:00: 00 Yes [id number] 25mg Take 1 tablet by mouth every 6 (six) hours. [facility] metFORMIN 1,000 mg tablet 08-17 00:00: 00 Yes [id number] 1000mg Take 1 tablet by mouth in the morning and 1 tablet in the evening. Take with meals. [facility] risperiDONE 1 mg tablet 08-17 00:00: 00 Yes [id number] 1mg Take 1 tablet by mouth in the morning and 1 tablet in the evening. [facility] pantoprazol e 40 mg EC tablet 08-17 00:00: 00 Yes [id number] 40mg Take 1 tablet by mouth in the morning. [facility] lisinopriL 40 mg tablet 08-17 00:00: 00 Yes [id number] 40mg Take 1 tablet by mouth in the morning. [facility] hydrOXYzine 10 mg tablet 08-17 00:00: 00 Yes [id number] 10mg Take 1 tablet by mouth every 6 (six) hours as needed for Itching. [facility] amLODIPine 10 mg tablet 08-17 00:00: 00 Yes [id number] 10mg Take 1 tablet by mouth in the morning. [facility] atorvastati n 20 mg tablet 08-17 00:00: 00 Yes [id number] 20mg Take 1 tablet by mouth at bedtime. [facility] carvediloL (COREG) 25 mg tablet 08-17 00:00: 00 Yes [id number] 25mg Take 1 tablet by mouth in the morning and 1 tablet in the evening. Take with meals. [facility] diphenhydrA MINE 25 mg tablet 08-17 00:00: 00 Yes [id number] 25mg Take 1 tablet by mouth as needed for Allergies (Before infusion). [facility] ferrous sulfate 325 mg (65 mg iron) tablet 08-17 00:00: 00 Yes [id number] 325mg Take 1 tablet by mouth every other day. [facility] gabapentin 300 mg capsule 08-17 00:00: 00 Yes [id number] 300mg Take 1 capsule by mouth in the morning and 1 capsule at noon and 1 capsule in the evening. [facility] hydrALAZINE 25 mg tablet 08-17 00:00: 00 Yes [id number] 25mg Take 1 tablet by mouth every 6 (six) hours. [facility] metFORMIN 1,000 mg tablet 08-17 00:00: 00 Yes [id number] 1000mg Take 1 tablet by mouth in the morning and 1 tablet in the evening. Take with meals. [facility] risperiDONE 1 mg tablet 08-17 00:00: 00 Yes [id number] 1mg Take 1 tablet by mouth in the morning and 1 tablet in the evening. [facility] pantoprazol e 40 mg EC tablet 08-17 00:00: 00 Yes [id number] 40mg Take 1 tablet by mouth in the morning. [facility] hydrOXYzine 10 mg tablet 08-17 00:00: 00 Yes [id number] 10mg Take 1 tablet by mouth every 6 (six) hours as needed for Itching. [facility] amLODIPine 10 mg tablet 08-17 00:00: 00 Yes [id number] 10mg Take 1 tablet by mouth in the morning. [facility] carvediloL (COREG) 25 mg tablet 08-17 00:00: 00 Yes [id number] 25mg Take 1 tablet by mouth in the morning and 1 tablet in the evening. Take with meals. [facility] diphenhydrA MINE 25 mg tablet 08-17 00:00: 00 Yes [id number] 25mg Take 1 tablet by mouth as needed for Allergies (Before infusion). [facility] ferrous sulfate 325 mg (65 mg iron) tablet 08-17 00:00: 00 Yes [id number] 325mg Take 1 tablet by mouth every other day. [facility] risperiDONE 1 mg tablet 08-17 00:00: 00 Yes [id number] 1mg Take 1 tablet by mouth in the morning and 1 tablet in the evening. [facility] pantoprazol e 40 mg EC tablet 08-17 00:00: 00 Yes [id number] 40mg Take 1 tablet by mouth in the morning. [facility] hydrOXYzine 10 mg tablet 08-17 00:00: 00 Yes [id number] 10mg Take 1 tablet by mouth every 6 (six) hours as needed for Itching. [facility] amLODIPine 10 mg tablet 08-17 00:00: 00 Yes [id number] 10mg Take 1 tablet by mouth in the morning. [facility] carvediloL (COREG) 25 mg tablet 08-17 00:00: 00 Yes [id number] 25mg Take 1 tablet by mouth in the morning and 1 tablet in the evening. Take with meals. [facility] diphenhydrA MINE 25 mg tablet 08-17 00:00: 00 Yes [id number] 25mg Take 1 tablet by mouth as needed for Allergies (Before infusion). [facility] ferrous sulfate 325 mg (65 mg iron) tablet 08-17 00:00: 00 Yes [id number] 325mg Take 1 tablet by mouth every other day. [facility] risperiDONE 1 mg tablet 08-17 00:00: 00 Yes [id number] 1mg Take 1 tablet by mouth in the morning and 1 tablet in the evening. [facility] pantoprazol e 40 mg EC tablet 08-17 00:00: 00 Yes [id number] 40mg Take 1 tablet by mouth in the morning. [facility] hydrOXYzine 10 mg tablet 08-17 00:00: 00 Yes [id number] 10mg Take 1 tablet by mouth every 6 (six) hours as needed for Itching. [facility] amLODIPine 10 mg tablet 08-17 00:00: 00 Yes [id number] 10mg Take 1 tablet by mouth in the morning. [facility] carvediloL (COREG) 25 mg tablet 08-17 00:00: 00 Yes [id number] 25mg Take 1 tablet by mouth in the morning and 1 tablet in the evening. Take with meals. [facility] diphenhydrA MINE 25 mg tablet 08-17 00:00: 00 Yes [id number] 25mg Take 1 tablet by mouth as needed for Allergies (Before infusion). [facility] ferrous sulfate 325 mg (65 mg iron) tablet 08-17 00:00: 00 Yes [id number] 325mg Take 1 tablet by mouth every other day. [facility] risperiDONE 1 mg tablet 08-17 00:00: 00 Yes [id number] 1mg Take 1 tablet by mouth in the morning and 1 tablet in the evening. [facility] pantoprazol e 40 mg EC tablet 08-17 00:00: 00 Yes [id number] 40mg Take 1 tablet by mouth in the morning. [facility] hydrOXYzine 10 mg tablet 08-17 00:00: 00 Yes [id number] 10mg Take 1 tablet by mouth every 6 (six) hours as needed for Itching. [facility] amLODIPine 10 mg tablet 08-17 00:00: 00 Yes [id number] 10mg Take 1 tablet by mouth in the morning. [facility] carvediloL (COREG) 25 mg tablet 08-17 00:00: 00 Yes [id number] 25mg Take 1 tablet by mouth in the morning and 1 tablet in the evening. Take with meals. [facility] diphenhydrA MINE 25 mg tablet 08-17 00:00: 00 Yes [id number] 25mg Take 1 tablet by mouth as needed for Allergies (Before infusion). [facility] ferrous sulfate 325 mg (65 mg iron) tablet 08-17 00:00: 00 Yes [id number] 325mg Take 1 tablet by mouth every other day. [facility] risperiDONE 1 mg tablet 08-17 00:00: 00 Yes [id number] 1mg Take 1 tablet by mouth in the morning and 1 tablet in the evening. [facility] pantoprazol e 40 mg EC tablet 08-17 00:00: 00 Yes [id number] 40mg Take 1 tablet by mouth in the morning. [facility] hydrOXYzine 10 mg tablet 08-17 00:00: 00 Yes [id number] 10mg Take 1 tablet by mouth every 6 (six) hours as needed for Itching. [facility] amLODIPine 10 mg tablet 08-17 00:00: 00 Yes [id number] 10mg Take 1 tablet by mouth in the morning. [facility] carvediloL (COREG) 25 mg tablet 08-17 00:00: 00 Yes [id number] 25mg Take 1 tablet by mouth in the morning and 1 tablet in the evening. Take with meals. [facility] diphenhydrA MINE 25 mg tablet 08-17 00:00: 00 Yes [id number] 25mg Take 1 tablet by mouth as needed for Allergies (Before infusion). [facility] ferrous sulfate 325 mg (65 mg iron) tablet 08-17 00:00: 00 Yes [id number] 325mg Take 1 tablet by mouth every other day. [facility] risperiDONE 1 mg tablet 08-17 00:00: 00 Yes [id number] 1mg Take 1 tablet by mouth in the morning and 1 tablet in the evening. [facility] pantoprazol e 40 mg EC tablet 08-17 00:00: 00 Yes [id number] 40mg Take 1 tablet by mouth in the morning. [facility] hydrOXYzine 10 mg tablet 08-17 00:00: 00 Yes [id number] 10mg Take 1 tablet by mouth every 6 (six) hours as needed for Itching. [facility] amLODIPine 10 mg tablet 08-17 00:00: 00 Yes [id number] 10mg Take 1 tablet by mouth in the morning. [facility] carvediloL (COREG) 25 mg tablet 08-17 00:00: 00 Yes [id number] 25mg Take 1 tablet by mouth in the morning and 1 tablet in the evening. Take with meals. [facility] ferrous sulfate 325 mg (65 mg iron) tablet 08-17 00:00: 00 Yes [id number] 325mg Take 1 tablet by mouth every other day. [facility] risperiDONE 1 mg tablet 08-17 00:00: 00 Yes [id number] 1mg Take 1 tablet by mouth in the morning and 1 tablet in the evening. [facility] pantoprazol e 40 mg EC tablet 08-17 00:00: 00 Yes [id number] 40mg Take 1 tablet by mouth in the morning. [facility] hydrOXYzine 10 mg tablet 08-17 00:00: 00 Yes [id number] 10mg Take 1 tablet by mouth every 6 (six) hours as needed for Itching. [facility] amLODIPine 10 mg tablet 08-17 00:00: 00 Yes [id number] 10mg Take 1 tablet by mouth in the morning. [facility] carvediloL (COREG) 25 mg tablet 08-17 00:00: 00 Yes [id number] 25mg Take 1 tablet by mouth in the morning and 1 tablet in the evening. Take with meals. [facility] ferrous sulfate 325 mg (65 mg iron) tablet 08-17 00:00: 00 Yes [id number] 325mg Take 1 tablet by mouth every other day. [facility] risperiDONE 1 mg tablet 08-17 00:00: 00 Yes [id number] 1mg Take 1 tablet by mouth in the morning and 1 tablet in the evening. [facility] pantoprazol e 40 mg EC tablet 08-17 00:00: 00 Yes [id number] 40mg Take 1 tablet by mouth in the morning. [facility] hydrOXYzine 10 mg tablet 08-17 00:00: 00 Yes [id number] 10mg Take 1 tablet by mouth every 6 (six) hours as needed for Itching. [facility] amLODIPine 10 mg tablet 08-17 00:00: 00 Yes [id number] 10mg Take 1 tablet by mouth in the morning. [facility] carvediloL (COREG) 25 mg tablet 08-17 00:00: 00 Yes [id number] 25mg Take 1 tablet by mouth in the morning and 1 tablet in the evening. Take with meals. [facility] ferrous sulfate 325 mg (65 mg iron) tablet 08-17 00:00: 00 Yes [id number] 325mg Take 1 tablet by mouth every other day. [facility] risperiDONE 1 mg tablet 08-17 00:00: 00 Yes [id number] 1mg Take 1 tablet by mouth in the morning and 1 tablet in the evening. [facility] pantoprazol e 40 mg EC tablet 08-17 00:00: 00 Yes [id number] 40mg Take 1 tablet by mouth in the morning. [facility] hydrOXYzine 10 mg tablet 08-17 00:00: 00 Yes [id number] 10mg Take 1 tablet by mouth every 6 (six) hours as needed for Itching. [facility] amLODIPine 10 mg tablet 08-17 00:00: 00 Yes [id number] 10mg Take 1 tablet by mouth in the morning. [facility] carvediloL (COREG) 25 mg tablet 08-17 00:00: 00 Yes [id number] 25mg Take 1 tablet by mouth in the morning and 1 tablet in the evening. Take with meals. [facility] ferrous sulfate 325 mg (65 mg iron) tablet 08-17 00:00: 00 Yes [id number] 325mg Take 1 tablet by mouth every other day. [facility] risperiDONE 1 mg tablet 08-17 00:00: 00 Yes [id number] 1mg Take 1 tablet by mouth in the morning and 1 tablet in the evening. [facility] pantoprazol e 40 mg EC tablet 08-17 00:00: 00 Yes [id number] 40mg Take 1 tablet by mouth in the morning. [facility] hydrOXYzine 10 mg tablet 08-17 00:00: 00 Yes [id number] 10mg Take 1 tablet by mouth every 6 (six) hours as needed for Itching. [facility] amLODIPine 10 mg tablet 08-17 00:00: 00 Yes [id number] 10mg Take 1 tablet by mouth in the morning. [facility] carvediloL (COREG) 25 mg tablet 08-17 00:00: 00 Yes [id number] 25mg Take 1 tablet by mouth in the morning and 1 tablet in the evening. Take with meals. [facility] ferrous sulfate 325 mg (65 mg iron) tablet 08-17 00:00: 00 Yes [id number] 325mg Take 1 tablet by mouth every other day. [facility] risperiDONE 1 mg tablet 08-17 00:00: 00 Yes [id number] 1mg Take 1 tablet by mouth in the morning and 1 tablet in the evening. [facility] pantoprazol e 40 mg EC tablet 08-17 00:00: 00 Yes [id number] 40mg Take 1 tablet by mouth in the morning. [facility] hydrOXYzine 10 mg tablet 08-17 00:00: 00 Yes [id number] 10mg Take 1 tablet by mouth every 6 (six) hours as needed for Itching. [facility] amLODIPine 10 mg tablet 08-17 00:00: 00 Yes [id number] 10mg Take 1 tablet by mouth in the morning. [facility] carvediloL (COREG) 25 mg tablet 08-17 00:00: 00 Yes [id number] 25mg Take 1 tablet by mouth in the morning and 1 tablet in the evening. Take with meals. [facility] ferrous sulfate 325 mg (65 mg iron) tablet 08-17 00:00: 00 Yes [id number] 325mg Take 1 tablet by mouth every other day. [facility] risperiDONE 1 mg tablet 08-17 00:00: 00 Yes [id number] 1mg Take 1 tablet by mouth in the morning and 1 tablet in the evening. [facility] pantoprazol e 40 mg EC tablet 08-17 00:00: 00 Yes [id number] 40mg Take 1 tablet by mouth in the morning. [facility] hydrOXYzine 10 mg tablet 08-17 00:00: 00 Yes [id number] 10mg Take 1 tablet by mouth every 6 (six) hours as needed for Itching. [facility] amLODIPine 10 mg tablet 08-17 00:00: 00 Yes [id number] 10mg Take 1 tablet by mouth in the morning. [facility] carvediloL (COREG) 25 mg tablet 08-17 00:00: 00 Yes [id number] 25mg Take 1 tablet by mouth in the morning and 1 tablet in the evening. Take with meals. [facility] ferrous sulfate 325 mg (65 mg iron) tablet 08-17 00:00: 00 Yes [id number] 325mg Take 1 tablet by mouth every other day. [facility] risperiDONE 1 mg tablet 08-17 00:00: 00 Yes [id number] 1mg Take 1 tablet by mouth in the morning and 1 tablet in the evening. [facility] pantoprazol e 40 mg EC tablet 08-17 00:00: 00 Yes [id number] 40mg Take 1 tablet by mouth in the morning. [facility] hydrOXYzine 10 mg tablet 08-17 00:00: 00 Yes [id number] 10mg Take 1 tablet by mouth every 6 (six) hours as needed for Itching. [facility] amLODIPine 10 mg tablet 08-17 00:00: 00 Yes [id number] 10mg Take 1 tablet by mouth in the morning. [facility] carvediloL (COREG) 25 mg tablet 08-17 00:00: 00 Yes [id number] 25mg Take 1 tablet by mouth in the morning and 1 tablet in the evening. Take with meals. [facility] ferrous sulfate 325 mg (65 mg iron) tablet 08-17 00:00: 00 Yes [id number] 325mg Take 1 tablet by mouth every other day. [facility] risperiDONE 1 mg tablet 08-17 00:00: 00 Yes [id number] 1mg Take 1 tablet by mouth in the morning and 1 tablet in the evening. [facility] pantoprazol e 40 mg EC tablet 08-17 00:00: 00 Yes [id number] 40mg Take 1 tablet by mouth in the morning. [facility] hydrOXYzine 10 mg tablet 08-17 00:00: 00 Yes [id number] 10mg Take 1 tablet by mouth every 6 (six) hours as needed for Itching. [facility] amLODIPine 10 mg tablet 08-17 00:00: 00 Yes [id number] 10mg Take 1 tablet by mouth in the morning. [facility] carvediloL (COREG) 25 mg tablet 08-17 00:00: 00 Yes [id number] 25mg Take 1 tablet by mouth in the morning and 1 tablet in the evening. Take with meals. [facility] ferrous sulfate 325 mg (65 mg iron) tablet 08-17 00:00: 00 Yes [id number] 325mg Take 1 tablet by mouth every other day. [facility] risperiDONE 1 mg tablet 08-17 00:00: 00 Yes [id number] 1mg Take 1 tablet by mouth in the morning and 1 tablet in the evening. [facility] pantoprazol e 40 mg EC tablet 08-17 00:00: 00 Yes [id number] 40mg Take 1 tablet by mouth in the morning. [facility] hydrOXYzine 10 mg tablet 08-17 00:00: 00 Yes [id number] 10mg Take 1 tablet by mouth every 6 (six) hours as needed for Itching. [facility] amLODIPine 10 mg tablet 08-17 00:00: 00 Yes [id number] 10mg Take 1 tablet by mouth in the morning. [facility] carvediloL (COREG) 25 mg tablet 08-17 00:00: 00 Yes [id number] 25mg Take 1 tablet by mouth in the morning and 1 tablet in the evening. Take with meals. [facility] ferrous sulfate 325 mg (65 mg iron) tablet 08-17 00:00: 00 Yes [id number] 325mg Take 1 tablet by mouth every other day. [facility] risperiDONE 1 mg tablet 08-17 00:00: 00 Yes [id number] 1mg Take 1 tablet by mouth in the morning and 1 tablet in the evening. [facility] pantoprazol e 40 mg EC tablet 08-17 00:00: 00 Yes [id number] 40mg Take 1 tablet by mouth in the morning. [facility] hydrOXYzine 10 mg tablet 08-17 00:00: 00 Yes [id number] 10mg Take 1 tablet by mouth every 6 (six) hours as needed for Itching. [facility] amLODIPine 10 mg tablet 08-17 00:00: 00 Yes [id number] 10mg Take 1 tablet by mouth in the morning. [facility] carvediloL (COREG) 25 mg tablet 08-17 00:00: 00 Yes [id number] 25mg Take 1 tablet by mouth in the morning and 1 tablet in the evening. Take with meals. [facility] ferrous sulfate 325 mg (65 mg iron) tablet 08-17 00:00: 00 Yes [id number] 325mg Take 1 tablet by mouth every other day. [facility] risperiDONE 1 mg tablet 08-17 00:00: 00 Yes [id number] 1mg Take 1 tablet by mouth in the morning and 1 tablet in the evening. [facility] pantoprazol e 40 mg EC tablet 08-17 00:00: 00 Yes [id number] 40mg Take 1 tablet by mouth in the morning. [facility] hydrOXYzine 10 mg tablet 08-17 00:00: 00 Yes [id number] 10mg Take 1 tablet by mouth every 6 (six) hours as needed for Itching. [facility] amLODIPine 10 mg tablet 08-17 00:00: 00 Yes [id number] 10mg Take 1 tablet by mouth in the morning. [facility] carvediloL (COREG) 25 mg tablet 08-17 00:00: 00 Yes [id number] 25mg Take 1 tablet by mouth in the morning and 1 tablet in the evening. Take with meals. [facility] ferrous sulfate 325 mg (65 mg iron) tablet 08-17 00:00: 00 Yes [id number] 325mg Take 1 tablet by mouth every other day. [facility] risperiDONE 1 mg tablet 08-17 00:00: 00 Yes [id number] 1mg Take 1 tablet by mouth in the morning and 1 tablet in the evening. [facility] pantoprazol e 40 mg EC tablet 08-17 00:00: 00 Yes [id number] 40mg Take 1 tablet by mouth in the morning. [facility] hydrOXYzine 10 mg tablet 08-17 00:00: 00 Yes [id number] 10mg Take 1 tablet by mouth every 6 (six) hours as needed for Itching. [facility] amLODIPine 10 mg tablet 08-17 00:00: 00 Yes [id number] 10mg Take 1 tablet by mouth in the morning. [facility] carvediloL (COREG) 25 mg tablet 08-17 00:00: 00 Yes [id number] 25mg Take 1 tablet by mouth in the morning and 1 tablet in the evening. Take with meals. [facility] ferrous sulfate 325 mg (65 mg iron) tablet 08-17 00:00: 00 Yes [id number] 325mg Take 1 tablet by mouth every other day. [facility] risperiDONE 1 mg tablet 08-17 00:00: 00 Yes [id number] 1mg Take 1 tablet by mouth in the morning and 1 tablet in the evening. [facility] pantoprazol e 40 mg EC tablet 08-17 00:00: 00 Yes [id number] 40mg Take 1 tablet by mouth in the morning. [facility] hydrOXYzine 10 mg tablet 08-17 00:00: 00 Yes [id number] 10mg Take 1 tablet by mouth every 6 (six) hours as needed for Itching. [facility] amLODIPine 10 mg tablet 08-17 00:00: 00 Yes [id number] 10mg Take 1 tablet by mouth in the morning. [facility] carvediloL (COREG) 25 mg tablet 08-17 00:00: 00 Yes [id number] 25mg Take 1 tablet by mouth in the morning and 1 tablet in the evening. Take with meals. [facility] ferrous sulfate 325 mg (65 mg iron) tablet 08-17 00:00: 00 Yes [id number] 325mg Take 1 tablet by mouth every other day. [facility] risperiDONE 1 mg tablet 08-17 00:00: 00 Yes [id number] 1mg Take 1 tablet by mouth in the morning and 1 tablet in the evening. [facility] pantoprazol e 40 mg EC tablet 08-17 00:00: 00 Yes [id number] 40mg Take 1 tablet by mouth in the morning. [facility] hydrOXYzine 10 mg tablet 08-17 00:00: 00 Yes [id number] 10mg Take 1 tablet by mouth every 6 (six) hours as needed for Itching. [facility] amLODIPine 10 mg tablet 08-17 00:00: 00 Yes [id number] 10mg Take 1 tablet by mouth in the morning. [facility] carvediloL (COREG) 25 mg tablet 08-17 00:00: 00 Yes [id number] 25mg Take 1 tablet by mouth in the morning and 1 tablet in the evening. Take with meals. [facility] ferrous sulfate 325 mg (65 mg iron) tablet 08-17 00:00: 00 Yes [id number] 325mg Take 1 tablet by mouth every other day. [facility] risperiDONE 1 mg tablet 08-17 00:00: 00 Yes [id number] 1mg Take 1 tablet by mouth in the morning and 1 tablet in the evening. [facility] pantoprazol e 40 mg EC tablet 08-17 00:00: 00 Yes [id number] 40mg Take 1 tablet by mouth in the morning. [facility] hydrOXYzine 10 mg tablet 08-17 00:00: 00 Yes [id number] 10mg Take 1 tablet by mouth every 6 (six) hours as needed for Itching. [facility] amLODIPine 10 mg tablet 08-17 00:00: 00 Yes [id number] 10mg Take 1 tablet by mouth in the morning. [facility] carvediloL (COREG) 25 mg tablet 08-17 00:00: 00 Yes [id number] 25mg Take 1 tablet by mouth in the morning and 1 tablet in the evening. Take with meals. [facility] ferrous sulfate 325 mg (65 mg iron) tablet 08-17 00:00: 00 Yes [id number] 325mg Take 1 tablet by mouth every other day. [facility] risperiDONE 1 mg tablet 08-17 00:00: 00 Yes [id number] 1mg Take 1 tablet by mouth in the morning and 1 tablet in the evening. [facility] pantoprazol e 40 mg EC tablet 08-17 00:00: 00 Yes [id number] 40mg Take 1 tablet by mouth in the morning. [facility] hydrOXYzine 10 mg tablet 08-17 00:00: 00 Yes [id number] 10mg Take 1 tablet by mouth every 6 (six) hours as needed for Itching. [facility] amLODIPine 10 mg tablet 08-17 00:00: 00 Yes [id number] 10mg Take 1 tablet by mouth in the morning. [facility] carvediloL (COREG) 25 mg tablet 08-17 00:00: 00 Yes [id number] 25mg Take 1 tablet by mouth in the morning and 1 tablet in the evening. Take with meals. [facility] ferrous sulfate 325 mg (65 mg iron) tablet 08-17 00:00: 00 Yes [id number] 325mg Take 1 tablet by mouth every other day. [facility] risperiDONE 1 mg tablet 08-17 00:00: 00 Yes [id number] 1mg Take 1 tablet by mouth in the morning and 1 tablet in the evening. [facility] pantoprazol e 40 mg EC tablet 08-17 00:00: 00 Yes [id number] 40mg Take 1 tablet by mouth in the morning. [facility] hydrOXYzine 10 mg tablet 08-17 00:00: 00 Yes [id number] 10mg Take 1 tablet by mouth every 6 (six) hours as needed for Itching. [facility] amLODIPine 10 mg tablet 08-17 00:00: 00 Yes [id number] 10mg Take 1 tablet by mouth in the morning. [facility] carvediloL (COREG) 25 mg tablet 08-17 00:00: 00 Yes [id number] 25mg Take 1 tablet by mouth in the morning and 1 tablet in the evening. Take with meals. [facility] ferrous sulfate 325 mg (65 mg iron) tablet 08-17 00:00: 00 Yes [id number] 325mg Take 1 tablet by mouth every other day. [facility] risperiDONE 1 mg tablet 08-17 00:00: 00 Yes [id number] 1mg Take 1 tablet by mouth in the morning and 1 tablet in the evening. [facility] pantoprazol e 40 mg EC tablet 08-17 00:00: 00 Yes [id number] 40mg Take 1 tablet by mouth in the morning. [facility] hydrOXYzine 10 mg tablet 08-17 00:00: 00 Yes [id number] 10mg Take 1 tablet by mouth every 6 (six) hours as needed for Itching. [facility] amLODIPine 10 mg tablet 08-17 00:00: 00 Yes [id number] 10mg Take 1 tablet by mouth in the morning. [facility] carvediloL (COREG) 25 mg tablet 08-17 00:00: 00 Yes [id number] 25mg Take 1 tablet by mouth in the morning and 1 tablet in the evening. Take with meals. [facility] ferrous sulfate 325 mg (65 mg iron) tablet 08-17 00:00: 00 Yes [id number] 325mg Take 1 tablet by mouth every other day. [facility] risperiDONE 1 mg tablet 08-17 00:00: 00 Yes [id number] 1mg Take 1 tablet by mouth in the morning and 1 tablet in the evening. [facility] pantoprazol e 40 mg EC tablet 08-17 00:00: 00 Yes [id number] 40mg Take 1 tablet by mouth in the morning. [facility] hydrOXYzine 10 mg tablet 08-17 00:00: 00 Yes [id number] 10mg Take 1 tablet by mouth every 6 (six) hours as needed for Itching. [facility] amLODIPine 10 mg tablet 08-17 00:00: 00 Yes [id number] 10mg Take 1 tablet by mouth in the morning. [facility] carvediloL (COREG) 25 mg tablet 08-17 00:00: 00 Yes [id number] 25mg Take 1 tablet by mouth in the morning and 1 tablet in the evening. Take with meals. [facility] ferrous sulfate 325 mg (65 mg iron) tablet 08-17 00:00: 00 Yes [id number] 325mg Take 1 tablet by mouth every other day. [facility] risperiDONE 1 mg tablet 08-17 00:00: 00 Yes [id number] 1mg Take 1 tablet by mouth in the morning and 1 tablet in the evening. [facility] pantoprazol e 40 mg EC tablet 08-17 00:00: 00 Yes [id number] 40mg Take 1 tablet by mouth in the morning. [facility] hydrOXYzine 10 mg tablet 08-17 00:00: 00 Yes [id number] 10mg Take 1 tablet by mouth every 6 (six) hours as needed for Itching. [facility] amLODIPine 10 mg tablet 08-17 00:00: 00 Yes [id number] 10mg Take 1 tablet by mouth in the morning. [facility] carvediloL (COREG) 25 mg tablet 08-17 00:00: 00 Yes [id number] 25mg Take 1 tablet by mouth in the morning and 1 tablet in the evening. Take with meals. [facility] ferrous sulfate 325 mg (65 mg iron) tablet 08-17 00:00: 00 Yes [id number] 325mg Take 1 tablet by mouth every other day. [facility] predniSONE 5 mg tablet 08-17 00:00: 00 07-05 05:59 :00 No [id number] Take 4 tablets by mouth daily for 7 days, THEN 3.5 tablets daily for 7 days, THEN 3 tablets daily for 7 days, THEN 2 tablets daily for 300 days. [facility] predniSONE 5 mg tablet 08-17 00:00: 07-05 05:59 :00 No [id number] Take 4 tablets by mouth daily for 7 days, THEN 3.5 tablets daily for 7 days, THEN 3 tablets daily for 7 days, THEN 2 tablets daily for 300 days. [facility] predniSONE 5 mg tablet 08-17 00:00: 00 07-05 05:59 :00 No [id number] Take 4 tablets by mouth daily for 7 days, THEN 3.5 tablets daily for 7 days, THEN 3 tablets daily for 7 days, THEN 2 tablets daily for 300 days. [facility] predniSONE 5 mg tablet 08-17 00:00: 00 07-05 05:59 :00 No [id number] Take 4 tablets by mouth daily for 7 days, THEN 3.5 tablets daily for 7 days, THEN 3 tablets daily for 7 days, THEN 2 tablets daily for 300 days. [facility] predniSONE 5 mg tablet 2023-0 1-24 00:00: 00 07-05 05:59 :00 No [id number] Take 4 tablets by mouth daily for 7 days, THEN 3.5 tablets daily for 7 days, THEN 3 tablets daily for 7 days, THEN 2 tablets daily for 300 days. [facility] predniSONE 5 mg tablet 2023-0 1-24 00:00: 00 07-05 05:59 :00 No [id number] Take 4 tablets by mouth daily for 7 days, THEN 3.5 tablets daily for 7 days, THEN 3 tablets daily for 7 days, THEN 2 tablets daily for 300 days. [facility] predniSONE 5 mg tablet 3-0 1-24 00:00: 00 07-05 05:59 :00 No [id number] Take 4 tablets by mouth daily for 7 days, THEN 3.5 tablets daily for 7 days, THEN 3 tablets daily for 7 days, THEN 2 tablets daily for 300 days. [facility] predniSONE 5 mg tablet 2023-0 1-24 00:00: 00 07-05 05:59 :00 No [id number] Take 4 tablets by mouth daily for 7 days, THEN 3.5 tablets daily for 7 days, THEN 3 tablets daily for 7 days, THEN 2 tablets daily for 300 days. [facility] predniSONE 5 mg tablet 2023-0 1-24 00:00: 00 07-05 05:59 :00 No [id number] Take 4 tablets by mouth daily for 7 days, THEN 3.5 tablets daily for 7 days, THEN 3 tablets daily for 7 days, THEN 2 tablets daily for 300 days. [facility] predniSONE 5 mg tablet 2023-0 1-24 00:00: 00 07-05 05:59 :00 No [id number] Take 4 tablets by mouth daily for 7 days, THEN 3.5 tablets daily for 7 days, THEN 3 tablets daily for 7 days, THEN 2 tablets daily for 300 days. [facility] predniSONE 5 mg tablet 2023-0 1-24 00:00: 00 07-05 05:59 :00 No [id number] Take 4 tablets by mouth daily for 7 days, THEN 3.5 tablets daily for 7 days, THEN 3 tablets daily for 7 days, THEN 2 tablets daily for 300 days. [facility] predniSONE 5 mg tablet 2023-0 1-24 00:00: 00 07-05 05:59 :00 No [id number] Take 4 tablets by mouth daily for 7 days, THEN 3.5 tablets daily for 7 days, THEN 3 tablets daily for 7 days, THEN 2 tablets daily for 300 days. [facility] predniSONE 5 mg tablet 2023-0 1-24 00:00: 00 07-05 05:59 :00 No [id number] Take 4 tablets by mouth daily for 7 days, THEN 3.5 tablets daily for 7 days, THEN 3 tablets daily for 7 days, THEN 2 tablets daily for 300 days. [facility] predniSONE 5 mg tablet 2023-0 1-24 00:00: 00 07-05 05:59 :00 No [id number] Take 4 tablets by mouth daily for 7 days, THEN 3.5 tablets daily for 7 days, THEN 3 tablets daily for 7 days, THEN 2 tablets daily for 300 days. [facility] predniSONE 5 mg tablet 2023-0 1-24 00:00: 00 07-05 05:59 :00 No [id number] Take 4 tablets by mouth daily for 7 days, THEN 3.5 tablets daily for 7 days, THEN 3 tablets daily for 7 days, THEN 2 tablets daily for 300 days. [facility] predniSONE 5 mg tablet 2023-0 1-24 00:00: 00 07-05 05:59 :00 No [id number] Take 4 tablets by mouth daily for 7 days, THEN 3.5 tablets daily for 7 days, THEN 3 tablets daily for 7 days, THEN 2 tablets daily for 300 days. [facility] predniSONE 5 mg tablet 2023-0 1-24 00:00: 00 07-05 05:59 :00 No [id number] Take 4 tablets by mouth daily for 7 days, THEN 3.5 tablets daily for 7 days, THEN 3 tablets daily for 7 days, THEN 2 tablets daily for 300 days. [facility] predniSONE 5 mg tablet 2023-0 1-24 00:00: 00 07-05 05:59 :00 No [id number] Take 4 tablets by mouth daily for 7 days, THEN 3.5 tablets daily for 7 days, THEN 3 tablets daily for 7 days, THEN 2 tablets daily for 300 days. [facility] predniSONE 5 mg tablet 2023-0 1-24 00:00: 00 07-05 05:59 :00 No [id number] Take 4 tablets by mouth daily for 7 days, THEN 3.5 tablets daily for 7 days, THEN 3 tablets daily for 7 days, THEN 2 tablets daily for 300 days. [facility] predniSONE 5 mg tablet 2023-0 1-24 00:00: 00 07-05 05:59 :00 No [id number] Take 4 tablets by mouth daily for 7 days, THEN 3.5 tablets daily for 7 days, THEN 3 tablets daily for 7 days, THEN 2 tablets daily for 300 days. [facility] predniSONE 5 mg tablet 3-0 1-24 00:00: 00 07-05 05:59 :00 No [id number] Take 4 tablets by mouth daily for 7 days, THEN 3.5 tablets daily for 7 days, THEN 3 tablets daily for 7 days, THEN 2 tablets daily for 300 days. [facility] predniSONE 5 mg tablet 2023-0 1-24 00:00: 00 07-05 05:59 :00 No [id number] Take 4 tablets by mouth daily for 7 days, THEN 3.5 tablets daily for 7 days, THEN 3 tablets daily for 7 days, THEN 2 tablets daily for 300 days. [facility] predniSONE 5 mg tablet 2023-0 1-24 00:00: 00 07-05 05:59 :00 No [id number] Take 4 tablets by mouth daily for 7 days, THEN 3.5 tablets daily for 7 days, THEN 3 tablets daily for 7 days, THEN 2 tablets daily for 300 days. [facility] predniSONE 5 mg tablet 2023-0 1-24 00:00: 00 07-05 05:59 :00 No [id number] Take 4 tablets by mouth daily for 7 days, THEN 3.5 tablets daily for 7 days, THEN 3 tablets daily for 7 days, THEN 2 tablets daily for 300 days. [facility] predniSONE 5 mg tablet 2023-0 1-24 00:00: 00 07-05 05:59 :00 No [id number] Take 4 tablets by mouth daily for 7 days, THEN 3.5 tablets daily for 7 days, THEN 3 tablets daily for 7 days, THEN 2 tablets daily for 300 days. [facility] predniSONE 5 mg tablet 2023-0 1-24 00:00: 00 07-05 05:59 :00 No [id number] Take 4 tablets by mouth daily for 7 days, THEN 3.5 tablets daily for 7 days, THEN 3 tablets daily for 7 days, THEN 2 tablets daily for 300 days. [facility] predniSONE 5 mg tablet 3-0 1-24 00:00: 00 07-05 05:59 :00 No [id number] Take 4 tablets by mouth daily for 7 days, THEN 3.5 tablets daily for 7 days, THEN 3 tablets daily for 7 days, THEN 2 tablets daily for 300 days. [facility] predniSONE 5 mg tablet 2023-0 1-24 00:00: 00 07-05 05:59 :00 No [id number] Take 4 tablets by mouth daily for 7 days, THEN 3.5 tablets daily for 7 days, THEN 3 tablets daily for 7 days, THEN 2 tablets daily for 300 days. [facility] predniSONE 5 mg tablet 2023-0 1-24 00:00: 00 07-05 05:59 :00 No [id number] Take 4 tablets by mouth daily for 7 days, THEN 3.5 tablets daily for 7 days, THEN 3 tablets daily for 7 days, THEN 2 tablets daily for 300 days. [facility] predniSONE 5 mg tablet 2023-0 1-24 00:00: 00 07-05 05:59 :00 No [id number] Take 4 tablets by mouth daily for 7 days, THEN 3.5 tablets daily for 7 days, THEN 3 tablets daily for 7 days, THEN 2 tablets daily for 300 days. [facility] predniSONE 5 mg tablet 2023-0 1-24 00:00: 00 07-05 05:59 :00 No [id number] Take 4 tablets by mouth daily for 7 days, THEN 3.5 tablets daily for 7 days, THEN 3 tablets daily for 7 days, THEN 2 tablets daily for 300 days. [facility] predniSONE 5 mg tablet 2023-0 1-24 00:00: 00 07-05 05:59 :00 No [id number] Take 4 tablets by mouth daily for 7 days, THEN 3.5 tablets daily for 7 days, THEN 3 tablets daily for 7 days, THEN 2 tablets daily for 300 days. [facility] predniSONE 5 mg tablet 2023-0 1-24 00:00: 00 07-05 05:59 :00 No [id number] Take 4 tablets by mouth daily for 7 days, THEN 3.5 tablets daily for 7 days, THEN 3 tablets daily for 7 days, THEN 2 tablets daily for 300 days. [facility] predniSONE 5 mg tablet 2023-0 1-24 00:00: 00 07-05 05:59 :00 No [id number] Take 4 tablets by mouth daily for 7 days, THEN 3.5 tablets daily for 7 days, THEN 3 tablets daily for 7 days, THEN 2 tablets daily for 300 days. [facility] predniSONE 5 mg tablet 2023-0 1-24 00:00: 00 07-05 05:59 :00 No [id number] Take 4 tablets by mouth daily for 7 days, THEN 3.5 tablets daily for 7 days, THEN 3 tablets daily for 7 days, THEN 2 tablets daily for 300 days. [facility] predniSONE 5 mg tablet 2023-0 1-24 00:00: 00 07-05 05:59 :00 No [id number] Take 4 tablets by mouth daily for 7 days, THEN 3.5 tablets daily for 7 days, THEN 3 tablets daily for 7 days, THEN 2 tablets daily for 300 days. [facility] predniSONE 5 mg tablet 2023-0 1-24 00:00: 00 07-05 05:59 :00 No [id number] Take 4 tablets by mouth daily for 7 days, THEN 3.5 tablets daily for 7 days, THEN 3 tablets daily for 7 days, THEN 2 tablets daily for 300 days. [facility] predniSONE [facility] mg tablet 2023-0 1-24 00:00: 00 07-05 05:59 :00 No [id number] Take 4 tablets by mouth daily for 7 days, THEN 3.5 tablets daily for 7 days, THEN 3 tablets daily for 7 days, THEN 2 tablets daily for 300 days. [facility] predniSONE 5 mg tablet 2023-0 1-24 00:00: 00 07-05 05:59 :00 No [id number] Take 4 tablets by mouth daily for 7 days, THEN 3.5 tablets daily for 7 days, THEN 3 tablets daily for 7 days, THEN 2 tablets daily for 300 days. [facility] predniSONE 5 mg tablet 2023-0 1-24 00:00: 00 07-05 05:59 :00 No [id number] Take 4 tablets by mouth daily for 7 days, THEN 3.5 tablets daily for 7 days, THEN 3 tablets daily for 7 days, THEN 2 tablets daily for 300 days. [facility] predniSONE 5 mg tablet 3-0 1-24 00:00: 00 07-05 05:59 :00 No [id number] Take 4 tablets by mouth daily for 7 days, THEN 3.5 tablets daily for 7 days, THEN 3 tablets daily for 7 days, THEN 2 tablets daily for 300 days. [facility] predniSONE 5 mg tablet 2023-0 1-24 00:00: 00 07-05 05:59 :00 No [id number] Take 4 tablets by mouth daily for 7 days, THEN 3.5 tablets daily for 7 days, THEN 3 tablets daily for 7 days, THEN 2 tablets daily for 300 days. [facility] predniSONE 5 mg tablet 2023-0 1-24 00:00: 00 07-05 05:59 :00 No [id number] Take 4 tablets by mouth daily for 7 days, THEN 3.5 tablets daily for 7 days, THEN 3 tablets daily for 7 days, THEN 2 tablets daily for 300 days. [facility] predniSONE 5 mg tablet 2023-0 1-24 00:00: 00 07-05 05:59 :00 No [id number] Take 4 tablets by mouth daily for 7 days, THEN 3.5 tablets daily for 7 days, THEN 3 tablets daily for 7 days, THEN 2 tablets daily for 300 days. [facility] predniSONE 5 mg tablet 2023-0 1-24 00:00: 00 07-05 05:59 :00 No [id number] Take 4 tablets by mouth daily for 7 days, THEN 3.5 tablets daily for 7 days, THEN 3 tablets daily for 7 days, THEN 2 tablets daily for 300 days. [facility] predniSONE 5 mg tablet 2023-0 1-24 00:00: 00 07-05 05:59 :00 No [id number] Take 4 tablets by mouth daily for 7 days, THEN 3.5 tablets daily for 7 days, THEN 3 tablets daily for 7 days, THEN 2 tablets daily for 300 days. [facility] predniSONE 5 mg tablet 3-0 1-24 00:00: 00 07-05 05:59 :00 No [id number] Take 4 tablets by mouth daily for 7 days, THEN 3.5 tablets daily for 7 days, THEN 3 tablets daily for 7 days, THEN 2 tablets daily for 300 days. [facility] predniSONE 5 mg tablet 2023-0 1-24 00:00: 00 07-05 05:59 :00 No [id number] Take 4 tablets by mouth daily for 7 days, THEN 3.5 tablets daily for 7 days, THEN 3 tablets daily for 7 days, THEN 2 tablets daily for 300 days. [facility] predniSONE 5 mg tablet 2023-0 1-24 00:00: 00 07-05 05:59 :00 No [id number] Take 4 tablets by mouth daily for 7 days, THEN 3.5 tablets daily for 7 days, THEN 3 tablets daily for 7 days, THEN 2 tablets daily for 300 days. [facility] predniSONE 5 mg tablet 2023-0 1-24 00:00: 00 07-05 05:59 :00 No [id number] Take 4 tablets by mouth daily for 7 days, THEN 3.5 tablets daily for 7 days, THEN 3 tablets daily for 7 days, THEN 2 tablets daily for 300 days. [facility] predniSONE 5 mg tablet 08-17 00:00: 00 07-05 05:59 :00 No [id number] Take 4 tablets by mouth daily for 7 days, THEN 3.5 tablets daily for 7 days, THEN 3 tablets daily for 7 days, THEN 2 tablets daily for 300 days. [facility] diphenhydrA MINE 25 mg tablet 08-17 00:00: 00 03-21 00:00 :00 No [id number] 25mg Take 1 tablet by mouth as needed for Allergies (Before infusion). [facility] divalproex 500 mg EC tablet 08-17 00:00: 00 10-26 00:00 :00 No [id number] 1500mg Take 3 tablets by mouth every 12 (twelve) hours. [facility] metFORMIN 1,000 mg tablet 08-17 00:00: 00 08-17 00:00 :00 No [id number] 1000mg Take 1 tablet by mouth in the morning and 1 tablet in the evening. Take with meals. [facility] hydrALAZINE 25 mg tablet 08-17 00:00: 00 08-17 00:00 :00 No [id number] 25mg Take 1 tablet by mouth every 6 (six) hours. [facility] gabapentin 300 mg capsule 08-17 00:00: 00 08-17 00:00 :00 No [id number] 300mg Take 1 capsule by mouth in the morning and 1 capsule at noon and 1 capsule in the evening. [facility] ferrous sulfate 325 mg (65 mg iron) tablet 08-17 00:00: 00 08-17 00:00 :00 No [id number] 325mg Take 1 tablet by mouth every other day. [facility] diphenhydrA MINE 25 mg tablet 08-17 00:00: 00 08-17 00:00 :00 No [id number] 25mg Take 1 tablet by mouth as needed for Allergies (Before infusion). [facility] carvediloL (COREG) 25 mg tablet 08-17 00:00: 00 08-17 00:00 :00 No [id number] 25mg Take 1 tablet by mouth in the morning and 1 tablet in the evening. Take with meals. [facility] atorvastati n 20 mg tablet 08-17 00:00: 00 08-17 00:00 :00 No [id number] 20mg Take 1 tablet by mouth at bedtime. [facility] amLODIPine 10 mg tablet 08-17 00:00: 00 08-17 00:00 :00 No [id number] 10mg Take 1 tablet by mouth in the morning. [facility] atorvastati n (LIPITOR) 20 mg tablet 08-12 09:11: 44 08-12 00:00 :00 No 20mg Take 20 mg by mouth at bedtime. [facility] atorvastati n (LIPITOR) 20 mg tablet 08-12 09:11: 44 08-12 00:00 :00 No 20mg Take 20 mg by mouth at bedtime. [facility] atorvastati n (LIPITOR) 20 mg tablet 08-12 09:11: 44 08-12 00:00 :00 No 20mg Take 20 mg by mouth at bedtime. [facility] atorvastati n (LIPITOR) 20 mg tablet 08-12 09:11: 44 08-12 00:00 :00 No 20mg Take 20 mg by mouth at bedtime. [facility] atorvastati n (LIPITOR) 20 mg tablet 08-12 09:11: 44 08-12 00:00 :00 No 20mg Take 20 mg by mouth at bedtime. [facility] vitamin B-12 100 mcg tablet 08-12 09:04: 51 08-12 00:00 :00 No 2500ug Take 2,500 mcg by mouth daily. [facility] vitamin B-12 100 mcg tablet 08-12 09:04: 51 08-12 00:00 :00 No 2500ug Take 2,500 mcg by mouth daily. [facility] vitamin B-12 100 mcg tablet 08-12 09:04: 51 08-12 00:00 :00 No 2500ug Take 2,500 mcg by mouth daily. [facility] vitamin B-12 100 mcg tablet 08-12 09:04: 51 08-12 00:00 :00 No 2500ug Take 2,500 mcg by mouth daily. [facility] vitamin B-12 100 mcg tablet 08-12 09:04: 51 08-12 00:00 :00 No 2500ug Take 2,500 mcg by mouth daily. [facility] tiZANidine 4 mg tablet 08-12 09:03: 27 08-12 00:00 :00 No tizanidine 4 mg tablet Take 1 tablet every 12 hours by oral route as needed for 30 days. [facility] HYDROcodone -acetaminop hen 7.5-325 mg per tablet 08-12 09:03: 15 08-12 00:00 :00 No hydrocodon e 7.5 mg-acetami nophen 325 mg tablet [facility] FLUoxetine 40 mg capsule 08-12 09:03: 05 08-12 00:00 :00 No fluoxetine 40 mg capsule [facility] etodolac 500 mg tablet 08-12 09:02: 59 08-12 00:00 :00 No etodolac 500 mg tablet TAKE ONE TABLET BY MOUTH TWICE A DAY NEEDED [facility] Diclofenac Sodium 1 % gel 08-12 09:02: 47 08-12 00:00 :00 No diclofenac 1 % topical gel [facility] citalopram 20 mg tablet 08-12 09:02: 41 08-12 00:00 :00 No citalopram 20 mg tablet [facility] busPIRone 15 mg tablet 08-12 09:02: 28 08-12 00:00 :00 No buspirone 15 mg tablet [facility] busPIRone 30 mg tablet 08-12 09:02: 16 08-12 00:00 :00 No buspirone 30 mg tablet [facility] baclofen 10 mg tablet 08-12 09:01: 53 08-12 00:00 :00 No baclofen 10 mg tablet Take 1 tablet every 12 hours by oral route as needed for 30 days. [facility] ALPRAZolam 0.5 mg tablet 08-12 09:00: 07 08-12 00:00 :00 No alprazolam 0.5 mg tablet [facility] amLODIPine 10 mg tablet 08-12 00:00: 00 08-17 00:00 :00 No [id number] 10mg Take 1 tablet by mouth in the morning. [facility] carvediloL (COREG) 25 mg tablet 08-12 00:00: 00 08-17 00:00 :00 No [id number] 25mg Take 1 tablet by mouth in the morning and 1 tablet in the evening. Take with meals. [facility] diphenhydrA MINE 25 mg tablet 08-12 00:00: 00 08-17 00:00 :00 No [id number] 25mg Take 1 tablet by mouth as needed for Allergies (Before infusion). [facility] divalproex 500 mg EC tablet 08-12 00:00: 00 08-17 00:00 :00 No [id number] 1500mg Take 3 tablets by mouth every 12 (twelve) hours. [facility] ferrous sulfate 325 mg (65 mg iron) tablet 08-12 00:00: 00 08-17 00:00 :00 No [id number] 325mg Take 1 tablet by mouth every other day. [facility] gabapentin 300 mg capsule 08-12 00:00: 00 08-17 00:00 :00 No [id number] 300mg Take 1 capsule by mouth in the morning and 1 capsule at noon and 1 capsule in the evening. [facility] hydrOXYzine 10 mg tablet 08-12 00:00: 00 08-17 00:00 :00 No [id number] 10mg Take 1 tablet by mouth every 6 (six) hours as needed for Itching. [facility] lisinopriL 40 mg tablet 08-12 00:00: 00 08-17 00:00 :00 No [id number] 40mg Take 1 tablet by mouth in the morning. [facility] pantoprazol e 40 mg EC tablet 08-12 00:00: 00 08-17 00:00 :00 No [id number] 40mg Take 1 tablet by mouth in the morning. [facility] predniSONE 5 mg tablet 08-12 00:00: 00 08-17 00:00 :00 No [id number] Take 4 tablets by mouth daily for 7 days, THEN 3.5 tablets daily for 7 days, THEN 3 tablets daily for 7 days, THEN 2 tablets daily for 300 days. [facility] atorvastati n 20 mg tablet 08-12 00:00: 00 08-17 00:00 :00 No [id number] 20mg Take 1 tablet by mouth at bedtime. [facility] hydrALAZINE 25 mg tablet 08-12 00:00: 00 08-17 00:00 :00 No [id number] 25mg Take 1 tablet by mouth every 6 (six) hours. [facility] risperiDONE 1 mg tablet 08-12 00:00: 00 08-17 00:00 :00 No [id number] 1mg Take 1 tablet by mouth in the morning and 1 tablet in the evening. [facility] metFORMIN 1,000 mg tablet 08-12 00:00: 00 08-17 00:00 :00 No [id number] 1000mg Take 1 tablet by mouth in the morning and 1 tablet in the evening. Take with meals. [facility] amLODIPine 10 mg tablet 08-12 00:00: 00 08-17 00:00 :00 No [id number] 10mg Take 1 tablet by mouth in the morning. [facility] carvediloL (COREG) 25 mg tablet 08-12 00:00: 00 08-17 00:00 :00 No [id number] 25mg Take 1 tablet by mouth in the morning and 1 tablet in the evening. Take with meals. [facility] diphenhydrA MINE 25 mg tablet 08-12 00:00: 00 08-17 00:00 :00 No [id number] 25mg Take 1 tablet by mouth as needed for Allergies (Before infusion). [facility] divalproex 500 mg EC tablet 08-12 00:00: 00 08-17 00:00 :00 No [id number] 1500mg Take 3 tablets by mouth every 12 (twelve) hours. [facility] ferrous sulfate 325 mg (65 mg iron) tablet 08-12 00:00: 00 08-17 00:00 :00 No [id number] 325mg Take 1 tablet by mouth every other day. [facility] gabapentin 300 mg capsule 08-12 00:00: 00 08-17 00:00 :00 No [id number] 300mg Take 1 capsule by mouth in the morning and 1 capsule at noon and 1 capsule in the evening. [facility] hydrOXYzine 10 mg tablet 08-12 00:00: 00 08-17 00:00 :00 No [id number] 10mg Take 1 tablet by mouth every 6 (six) hours as needed for Itching. [facility] lisinopriL 40 mg tablet 08-12 00:00: 00 08-17 00:00 :00 No [id number] 40mg Take 1 tablet by mouth in the morning. [facility] pantoprazol e 40 mg EC tablet 08-12 00:00: 00 08-17 00:00 :00 No [id number] 40mg Take 1 tablet by mouth in the morning. [facility] predniSONE 5 mg tablet 08-12 00:00: 00 08-17 00:00 :00 No [id number] Take 4 tablets by mouth daily for 7 days, THEN 3.5 tablets daily for 7 days, THEN 3 tablets daily for 7 days, THEN 2 tablets daily for 300 days. [facility] atorvastati n 20 mg tablet 08-12 00:00: 00 08-17 00:00 :00 No [id number] 20mg Take 1 tablet by mouth at bedtime. [facility] hydrALAZINE 25 mg tablet 08-12 00:00: 00 08-17 00:00 :00 No [id number] 25mg Take 1 tablet by mouth every 6 (six) hours. [facility] risperiDONE 1 mg tablet 08-12 00:00: 00 08-17 00:00 :00 No [id number] 1mg Take 1 tablet by mouth in the morning and 1 tablet in the evening. [facility] metFORMIN 1,000 mg tablet 08-12 00:00: 00 08-17 00:00 :00 No [id number] 1000mg Take 1 tablet by mouth in the morning and 1 tablet in the evening. Take with meals. [facility] divalproex 500 mg EC tablet 2021-07 00:00: 00 Yes [id number] 1500mg Take 3 tablets by mouth every 12 (twelve) hours. [facility] divalproex 500 mg EC tablet 2021-07 00:00: 00 Yes [id number] 1500mg Take 3 tablets by mouth every 12 (twelve) hours. [facility] divalproex 500 mg EC tablet 2021-07 00:00: 00 08-12 00:00 :00 No [id number] 1500mg Take 3 tablets by mouth every 12 (twelve) hours. [facility] ALPRAZolam 0.5 mg tablet 2021-07 10:12: 34 Yes alprazolam 0.5 mg tablet [facility] baclofen 10 mg tablet 2021-07 10:12: 34 Yes baclofen 10 mg tablet Take 1 tablet every 12 hours by oral route as needed for 30 days. [facility] busPIRone 15 mg tablet 2021-07 10:12: 34 Yes buspirone 15 mg tablet [facility] busPIRone 30 mg tablet 2021-07 10:12: 34 Yes buspirone 30 mg tablet [facility] citalopram 20 mg tablet 2021-07 10:12: 34 Yes citalopram 20 mg tablet [facility] Diclofenac Sodium 1 % gel 2021-07 10:12: 34 Yes diclofenac 1 % topical gel [facility] etodolac 500 mg tablet 2021-07 10:12: 34 Yes etodolac 500 mg tablet TAKE ONE TABLET BY MOUTH TWICE A DAY NEEDED [facility] FLUoxetine 40 mg capsule 2021-07 10:12: 34 Yes fluoxetine 40 mg capsule [facility] HYDROcodone -acetaminop hen 7.5-325 mg per tablet 2021-07 10:12: 34 Yes hydrocodon e 7.5 mg-acetami nophen 325 mg tablet [facility] tiZANidine 4 mg tablet 2021-07 10:12: 34 Yes tizanidine 4 mg tablet Take 1 tablet every 12 hours by oral route as needed for 30 days. [facility] ALPRAZolam 0.5 mg tablet 2021-07 10:12: 34 Yes alprazolam 0.5 mg tablet [facility] baclofen 10 mg tablet 2021-07 10:12: 34 Yes baclofen 10 mg tablet Take 1 tablet every 12 hours by oral route as needed for 30 days. [facility] busPIRone 15 mg tablet 2021-07 10:12: 34 Yes buspirone 15 mg tablet [facility] busPIRone 30 mg tablet 2021-07 10:12: 34 Yes buspirone 30 mg tablet [facility] citalopram 20 mg tablet 2021-07 10:12: 34 Yes citalopram 20 mg tablet [facility] Diclofenac Sodium 1 % gel 2021-07 10:12: 34 Yes diclofenac 1 % topical gel [facility] etodolac 500 mg tablet 2021-07 10:12: 34 Yes etodolac 500 mg tablet TAKE ONE TABLET BY MOUTH TWICE A DAY NEEDED [facility] FLUoxetine 40 mg capsule 2021-07 10:12: 34 Yes fluoxetine 40 mg capsule [facility] HYDROcodone -acetaminop hen 7.5-325 mg per tablet 2021-07 10:12: 34 Yes hydrocodon e 7.5 mg-acetami nophen 325 mg tablet [facility] tiZANidine 4 mg tablet 2021-07 10:12: 34 Yes tizanidine 4 mg tablet Take 1 tablet every 12 hours by oral route as needed for 30 days. [facility] ALPRAZolam 0.5 mg tablet 2021-07 10:12: 34 Yes alprazolam 0.5 mg tablet [facility] baclofen 10 mg tablet 2021-07 10:12: 34 Yes baclofen 10 mg tablet Take 1 tablet every 12 hours by oral route as needed for 30 days. [facility] busPIRone 15 mg tablet 2021-07 10:12: 34 Yes buspirone 15 mg tablet [facility] busPIRone 30 mg tablet 2021-07 10:12: 34 Yes buspirone 30 mg tablet [facility] citalopram 20 mg tablet 2021-07 10:12: 34 Yes citalopram 20 mg tablet [facility] Diclofenac Sodium 1 % gel 2021-07 10:12: 34 Yes diclofenac 1 % topical gel [facility] etodolac 500 mg tablet 2021-07 10:12: 34 Yes etodolac 500 mg tablet TAKE ONE TABLET BY MOUTH TWICE A DAY NEEDED [facility] FLUoxetine 40 mg capsule 2021-07 10:12: 34 Yes fluoxetine 40 mg capsule [facility] HYDROcodone -acetaminop hen 7.5-325 mg per tablet 2021-07 10:12: 34 Yes hydrocodon e 7.5 mg-acetami nophen 325 mg tablet [facility] tiZANidine 4 mg tablet 2021-07 10:12: 34 Yes tizanidine 4 mg tablet Take 1 tablet every 12 hours by oral route as needed for 30 days. [facility] ALPRAZolam 0.5 mg tablet 2021-07 10:12: 34 Yes alprazolam 0.5 mg tablet [facility] baclofen 10 mg tablet 2021-07 10:12: 34 Yes baclofen 10 mg tablet Take 1 tablet every 12 hours by oral route as needed for 30 days. [facility] busPIRone 15 mg tablet 2021-07 10:12: 34 Yes buspirone 15 mg tablet [facility] busPIRone 30 mg tablet 2021-07 10:12: 34 Yes buspirone 30 mg tablet [facility] citalopram 20 mg tablet 2021-07 10:12: 34 Yes citalopram 20 mg tablet [facility] Diclofenac Sodium 1 % gel 2021-07 10:12: 34 Yes diclofenac 1 % topical gel [facility] etodolac 500 mg tablet 2021-07 10:12: 34 Yes etodolac 500 mg tablet TAKE ONE TABLET BY MOUTH TWICE A DAY NEEDED [facility] FLUoxetine 40 mg capsule 2021-07 10:12: 34 Yes fluoxetine 40 mg capsule [facility] HYDROcodone -acetaminop hen 7.5-325 mg per tablet 2021-07 10:12: 34 Yes hydrocodon e 7.5 mg-acetami nophen 325 mg tablet [facility] tiZANidine 4 mg tablet 2021-07 10:12: 34 Yes tizanidine 4 mg tablet Take 1 tablet every 12 hours by oral route as needed for 30 days. [facility] ALPRAZolam 0.5 mg tablet 2021-07 10:12: 34 Yes alprazolam 0.5 mg tablet [facility] baclofen 10 mg tablet 2021-07 10:12: 34 Yes baclofen 10 mg tablet Take 1 tablet every 12 hours by oral route as needed for 30 days. [facility] busPIRone 15 mg tablet 2021-07 10:12: 34 Yes buspirone 15 mg tablet [facility] busPIRone 30 mg tablet 2021-07 10:12: 34 Yes buspirone 30 mg tablet [facility] citalopram 20 mg tablet 2021-07 10:12: 34 Yes citalopram 20 mg tablet [facility] Diclofenac Sodium 1 % gel 2021-07 10:12: 34 Yes diclofenac 1 % topical gel [facility] etodolac 500 mg tablet 2021-07 10:12: 34 Yes etodolac 500 mg tablet TAKE ONE TABLET BY MOUTH TWICE A DAY NEEDED [facility] FLUoxetine 40 mg capsule 2021-07 10:12: 34 Yes fluoxetine 40 mg capsule [facility] HYDROcodone -acetaminop hen 7.5-325 mg per tablet 2021-07 10:12: 34 Yes hydrocodon e 7.5 mg-acetami nophen 325 mg tablet [facility] tiZANidine 4 mg tablet 2021-07 10:12: 34 Yes tizanidine 4 mg tablet Take 1 tablet every 12 hours by oral route as needed for 30 days. [facility] riTUXimab (RITUXAN) 1,000 mg in NaCl 0.9% (NS) 1,000 mL infusion 2021-07 15:30: 00 06-03 19:45 :00 No [id number] 1000mg 1,000 mg, IV Infusion, ONCE, On [place] 06/03/22 at 0930, For 1 dose
In itial infusion: start rate at 50 mg/hr. If there is no reaction, increase rate by 50 mg/hr increments every 30 minutes to a maximum of 400 mg/hr.&nbs p;Subseque nt infusions: initiate rate at 100 mg/hr. If infusion is well-sudeep ated, rate may be escalated in 100 mg/hr increments at 30 minute intervals to a maximum of 400 mg/hr.&nbs p;For NHL, from Cycle 2 onward, may give over 90 minutes.&n bsp; Diluted solution may be refrigerat ed for 24 hours.&nbs p; Co mplete administra tion within 8 hours from removal from refrigerat ion. Infu mike-Relat ed Reactions (IRR):&nbs p;Rituxima b products can cause severe, including fatal, infusion-r elated reactions. Severe reactions typically occurred during the first infusion with time to onset of 30-120 minutes.&n bsp; Rituximab product-in duced infusion-r elated reactions and sequelae include urticaria, hypotensio n, angioedema , hypoxia, bronchospa sm, pulmonary infiltrate s, acute respirator y distress syndrome, myocardial infarction , ventricula r fibrillati on, cardiogeni c shock, anaphylact oid events, or .&nbs p;&nbs p;Premedic ate patients with an antihistam ine and acetaminop hen prior to dosing. For patients with Granulomat osis with Polyangiit is (GPA) (Megan's Granulomat osis) and Microscopi c Polyangiit is (MPA), methylpred nisolone 100 mg intravenou sly or its equivalent is recommende d 30 minutes prior to each infusion. [place] medical management (e.g., glucocorti coids, epinephrin e, bronchodil ators, or oxygen) for infusion-r elated reactions as needed. Depending on the severity of the infusion-r elated reaction and the required interventi ons, temporaril y or permanentl y discontinu e RUXIENCE. Resume infusion at a minimum 50% reduction in rate after symptoms have resolved.& nbsp;Close ly monitor the following patients: those with preexistin g cardiac or pulmonary conditions , those who experience d prior cardiopulm onary adverse reactions, and those with high numbers of circulatin g malignant cells (greater than or equal to 25,000/mm3 ). &n bsp;BOXED WARNINGS:& nbsp;PATY NG: FATAL INFUSION-R ELATED REACTIONS, SEVERE MUCOCUTANE OUS REACTIONS, HEPATITIS B VIRUS REACTIVATI ON and PROGRESSIV E MULTIFOCAL LEUKOENCEP HALOPATHY& nbsp;Infus ion-relate d reactions: Rituximab administra tion can result in serious, including fatal infusion-r elated reactions. Deaths within 24 hours of Rituximab infusion have occurred. Approximat dolores 80% of fatal infusion-r elated reactions occurred in associatio n with the first infusion. Monitor patients closely. Discontinu e Rituximab infusion for severe reactions and provide medical treatment for Grade 3 or 4 infusion-r elated reactions. &amp ;nbsp;Sharon re Mucocutane ous Reactions: Severe, including fatal, mucocutane ous reactions can occur in patients receiving Rituximab. &nbs p;Hepatiti s B Virus (HBV) Reactivati on: HBV reactivati on can occur in patients treated with Rituximab, in some cases resulting in fulminant hepatitis, hepatic failure, and . Screen all patients for HBV infection before treatment initiation , and monitor patients during and after treatment with Rituximab. Discontinu e Rituximab and concomitan t medication s in the event of HBV reactivati on. & nbsp;Progr essive Multifocal Leukoencep halopathy (PML), including fatal PML, can occur in patients receiving Rituximab. &nbs p;
[facility] riTUXimab (RITUXAN) 1,000 mg in NaCl 0.9% (NS) 1,000 mL infusion 2021-07 15:30: 00 06-03 19:45 :00 No [id number] 1000mg 1,000 mg, IV Infusion, ONCE, On [facility] 06/03/22 at 0930, For 1 dose
In itial infusion: start rate at 50 mg/hr. If there is no reaction, increase rate by 50 mg/hr increments every 30 minutes to a maximum of 400 mg/hr.&nbs p;Subseque nt infusions: initiate rate at 100 mg/hr. If infusion is well-sudeep ated, rate may be escalated in 100 mg/hr increments at 30 minute intervals to a maximum of 400 mg/hr.&nbs p;For NHL, from Cycle 2 onward, may give over 90 minutes.&n bsp; Diluted solution may be refrigerat ed for 24 hours.&nbs p; Co mplete administra tion within 8 hours from removal from refrigerat ion. Infu mike-Relat ed Reactions (IRR):&nbs p;Rituxima b products can cause severe, including fatal, infusion-r elated reactions. Severe reactions typically occurred during the first infusion with time to onset of 30-120 minutes.&n bsp; Rituximab product-in duced infusion-r elated reactions and sequelae include urticaria, hypotensio n, angioedema , hypoxia, bronchospa sm, pulmonary infiltrate s, acute respirator y distress syndrome, myocardial infarction , ventricula r fibrillati on, cardiogeni c shock, anaphylact oid events, or .&nbs p;&nbs p;Premedic ate patients with an antihistam ine and acetaminop hen prior to dosing. For patients with Granulomat osis with Polyangiit is (GPA) (Megan's Granulomat osis) and Microscopi c Polyangiit is (MPA), methylpred nisolone 100 mg intravenou sly or its equivalent is recommende d 30 minutes prior to each infusion. [place] medical management (e.g., glucocorti coids, epinephrin e, bronchodil ators, or oxygen) for infusion-r elated reactions as needed. Depending on the severity of the infusion-r elated reaction and the required interventi ons, temporaril y or permanentl y discontinu e RUXIENCE. Resume infusion at a minimum 50% reduction in rate after symptoms have resolved.& nbsp;Close ly monitor the following patients: those with preexistin g cardiac or pulmonary conditions , those who experience d prior cardiopulm onary adverse reactions, and those with high numbers of circulatin g malignant cells (greater than or equal to 25,000/mm3 ). &n bsp;BOXED WARNINGS:& nbsp;PATY NG: FATAL INFUSION-R ELATED REACTIONS, SEVERE MUCOCUTANE OUS REACTIONS, HEPATITIS B VIRUS REACTIVATI ON and PROGRESSIV E MULTIFOCAL LEUKOENCEP HALOPATHY& nbsp;Infus ion-relate d reactions: Rituximab administra tion can result in serious, including fatal infusion-r elated reactions. Deaths within 24 hours of Rituximab infusion have occurred. Approximat dolores 80% of fatal infusion-r elated reactions occurred in associatio n with the first infusion. Monitor patients closely. Discontinu e Rituximab infusion for severe reactions and provide medical treatment for Grade 3 or 4 infusion-r elated reactions. &amp ;nbsp;Sharon re Mucocutane ous Reactions: Severe, including fatal, mucocutane ous reactions can occur in patients receiving Rituximab. &nbs p;Hepatiti s B Virus (HBV) Reactivati on: HBV reactivati on can occur in patients treated with Rituximab, in some cases resulting in fulminant hepatitis, hepatic failure, and . Screen all patients for HBV infection before treatment initiation , and monitor patients during and after treatment with Rituximab. Discontinu e Rituximab and concomitan t medication s in the event of HBV reactivati on. & nbsp;Progr essive Multifocal Leukoencep halopathy (PML), including fatal PML, can occur in patients receiving Rituximab. &nbs p;
[facility] riTUXimab (RITUXAN) 1,000 mg in NaCl 0.9% (NS) 1,000 mL infusion 2021-07 15:30: 00 06-03 19:45 :00 No [id number] 1000mg 1,000 mg, IV Infusion, ONCE, On [facility] 06/03/22 at 0930, For 1 dose
In itial infusion: start rate at 50 mg/hr. If there is no reaction, increase rate by 50 mg/hr increments every 30 minutes to a maximum of 400 mg/hr.&nbs p;Subseque nt infusions: initiate rate at 100 mg/hr. If infusion is well-sudeep ated, rate may be escalated in 100 mg/hr increments at 30 minute intervals to a maximum of 400 mg/hr.&nbs p;For NHL, from Cycle 2 onward, may give over 90 minutes.&n bsp; Diluted solution may be refrigerat ed for 24 hours.&nbs p; Co mplete administra tion within 8 hours from removal from refrigerat ion. Infu mike-Relat ed Reactions (IRR):&nbs p;Rituxima b products can cause severe, including fatal, infusion-r elated reactions. Severe reactions typically occurred during the first infusion with time to onset of 30-120 minutes.&n bsp; Rituximab product-in duced infusion-r elated reactions and sequelae include urticaria, hypotensio n, angioedema , hypoxia, bronchospa sm, pulmonary infiltrate s, acute respirator y distress syndrome, myocardial infarction , ventricula r fibrillati on, cardiogeni c shock, anaphylact oid events, or .&nbs p;&nbs p;Premedic ate patients with an antihistam ine and acetaminop hen prior to dosing. For patients with Granulomat osis with Polyangiit is (GPA) (Megan's Granulomat osis) and Microscopi c Polyangiit is (MPA), methylpred nisolone 100 mg intravenou sly or its equivalent is recommende d 30 minutes prior to each infusion. [place] medical management (e.g., glucocorti coids, epinephrin e, bronchodil ators, or oxygen) for infusion-r elated reactions as needed. Depending on the severity of the infusion-r elated reaction and the required interventi ons, temporaril y or permanentl y discontinu e RUXIENCE. Resume infusion at a minimum 50% reduction in rate after symptoms have resolved.& nbsp;Close ly monitor the following patients: those with preexistin g cardiac or pulmonary conditions , those who experience d prior cardiopulm onary adverse reactions, and those with high numbers of circulatin g malignant cells (greater than or equal to 25,000/mm3 ). &n bsp;BOXED WARNINGS:& nbsp;WARNI NG: FATAL INFUSION-R ELATED REACTIONS, SEVERE MUCOCUTANE OUS REACTIONS, HEPATITIS B VIRUS REACTIVATI ON and PROGRESSIV E MULTIFOCAL LEUKOENCEP HALOPATHY& nbsp;Infus ion-relate d reactions: Rituximab administra tion can result in serious, including fatal infusion-r elated reactions. Deaths within 24 hours of Rituximab infusion have occurred. Approximat dolores 80% of fatal infusion-r elated reactions occurred in associatio n with the first infusion. Monitor patients closely. Discontinu e Rituximab infusion for severe reactions and provide medical treatment for Grade 3 or 4 infusion-r elated reactions. &amp ;nbsp;Sharon re Mucocutane ous Reactions: Severe, including fatal, mucocutane ous reactions can occur in patients receiving Rituximab. &nbs p;Hepatiti s B Virus (HBV) Reactivati on: HBV reactivati on can occur in patients treated with Rituximab, in some cases resulting in fulminant hepatitis, hepatic failure, and . Screen all patients for HBV infection before treatment initiation , and monitor patients during and after treatment with Rituximab. Discontinu e Rituximab and concomitan t medication s in the event of HBV reactivati on. & nbsp;Progr essive Multifocal Leukoencep halopathy (PML), including fatal PML, can occur in patients receiving Rituximab. &nbs p;
[facility] diphenhydrA MINE (BENADRYL) tablet 25 mg 2021-07 14:45: 00 06-03 14:39 :00 No [id number] 25mg 25 mg, Oral, ONCE, 1 dose, On [facility] 06/03/22 at 0845, Routine [facility] acetaminoph en (TYLENOL) tablet 650 mg 2021-07 14:45: 00 06-03 14:39 :00 No [id number] 650mg 650 mg, Oral, ONCE, 1 dose, On [facility] 06/03/22 at 0845, Routine [facility] diphenhydrA MINE (BENADRYL) tablet 25 mg 2021-07 14:45: 00 06-03 14:39 :00 No [id number] 25mg 25 mg, Oral, ONCE, 1 dose, On [facility] 06/03/22 at 0845, Routine [facility] acetaminoph en (TYLENOL) tablet 650 mg 2021-07 14:45: 00 06-03 14:39 :00 No [id number] 650mg 650 mg, Oral, ONCE, 1 dose, On [place] 06/03/22 at 0845, Routine [facility] diphenhydrA MINE (BENADRYL) tablet 25 mg 2021-07 14:45: 00 06-03 14:39 :00 No [id number] 25mg 25 mg, Oral, ONCE, 1 dose, On [facility] 06/03/22 at 0845, Routine [facility] acetaminoph en (TYLENOL) tablet 650 mg 2021-07 14:45: 00 06-03 14:39 :00 No [id number] 650mg 650 mg, Oral, ONCE, 1 dose, On [facility] 06/03/22 at 0845, Routine [facility] ibuprofen (ADVIL) 200 mg tablet 2021-07 14:12: 18 06-03 00:00 :00 No 200mg Take 200 mg by mouth 2 (two) times daily with meals. [facility] ibuprofen (ADVIL) 200 mg tablet 2021-07 14:12: 18 06-03 00:00 :00 No 200mg Take 200 mg by mouth 2 (two) times daily with meals. [facility] ibuprofen (ADVIL) 200 mg tablet 2021-07 14:12: 18 06-03 00:00 :00 No 200mg Take 200 mg by mouth 2 (two) times daily with meals. [facility] ibuprofen (ADVIL) 200 mg tablet 2021-07 14:12: 18 06-03 00:00 :00 No 200mg Take 200 mg by mouth 2 (two) times daily with meals. [facility] ibuprofen (ADVIL) 200 mg tablet 2021-07 14:12: 18 06-03 00:00 :00 No 200mg Take 200 mg by mouth 2 (two) times daily with meals. [facility] ibuprofen (ADVIL) 200 mg tablet 2021-07 14:12: 18 06-03 00:00 :00 No 200mg Take 200 mg by mouth 2 (two) times daily with meals. [facility] ibuprofen (ADVIL) 200 mg tablet 2021-07 14:12: 18 06-03 00:00 :00 No 200mg Take 200 mg by mouth 2 (two) times daily with meals. [facility] ibuprofen (ADVIL) 200 mg tablet 2021-07 14:12: 18 06-03 00:00 :00 No 200mg Take 200 mg by mouth 2 (two) times daily with meals. [facility] diphenhydrA MINE 25 mg tablet 2021-07 00:00: 00 Yes [id number] 25mg Take 1 tablet by mouth as needed for Allergies (Before infusion). [facility] diphenhydrA MINE 25 mg tablet 2021-07 00:00: 00 Yes [id number] 25mg Take 1 tablet by mouth as needed for Allergies (Before infusion). [facility] diphenhydrA MINE 25 mg tablet 2021-07 00:00: 00 Yes [id number] 25mg Take 1 tablet by mouth as needed for Allergies (Before infusion). [facility] diphenhydrA MINE 25 mg tablet 2021-07 00:00: 00 Yes [id number] 25mg Take 1 tablet by mouth as needed for Allergies (Before infusion). [facility] diphenhydrA MINE 25 mg tablet 2021-07 00:00: 00 Yes [id number] 25mg Take 1 tablet by mouth as needed for Allergies (Before infusion). [facility] diphenhydrA MINE 25 mg tablet 2021-07 00:00: 00 Yes [id number] 25mg Take 1 tablet by mouth as needed for Allergies (Before infusion). [facility] diphenhydrA MINE 25 mg tablet 2021-07 00:00: 00 Yes [id number] 25mg Take 1 tablet by mouth as needed for Allergies (Before infusion). [facility] diphenhydrA MINE 25 mg tablet 2021-07 00:00: 00 Yes [id number] 25mg Take 1 tablet by mouth as needed for Allergies (Before infusion). [facility] acetaminoph en (TYLENOL) 325 mg tablet 2021-07 00:00: 00 05-29 04:59 :00 No [id number] 650mg Take 2 tablets by mouth as needed (Before infusion). [facility] acetaminoph en (TYLENOL) 325 mg tablet 2021-07 00:00: 00 05-29 04:59 :00 No [id number] 650mg Take 2 tablets by mouth as needed (Before infusion). [facility] acetaminoph en (TYLENOL) 325 mg tablet 2021-07 00:00: 00 05-29 04:59 :00 No [id number] 650mg Take 2 tablets by mouth as needed (Before infusion). [facility] acetaminoph en (TYLENOL) 325 mg tablet 2021-07 00:00: 00 05-29 04:59 :00 No [id number] 650mg Take 2 tablets by mouth as needed (Before infusion). [facility] acetaminoph en (TYLENOL) 325 mg tablet 2021-07 00:00: 00 05-29 04:59 :00 No [id number] 650mg Take 2 tablets by mouth as needed (Before infusion). [facility] acetaminoph en (TYLENOL) 325 mg tablet 2021-07 00:00: 00 05-29 04:59 :00 No [id number] 650mg Take 2 tablets by mouth as needed (Before infusion). [facility] acetaminoph en (TYLENOL) 325 mg tablet 2021-07 00:00: 00 05-29 04:59 :00 No [id number] 650mg Take 2 tablets by mouth as needed (Before infusion). [facility] acetaminoph en (TYLENOL) 325 mg tablet 2021-07 00:00: 00 05-29 04:59 :00 No [id number] 650mg Take 2 tablets by mouth as needed (Before infusion). [facility] acetaminoph en (TYLENOL) 325 mg tablet 2021-07 00:00: 00 05-29 04:59 :00 No [id number] 650mg Take 2 tablets by mouth as needed (Before infusion). [facility] acetaminoph en (TYLENOL) 325 mg tablet 2021-07 00:00: 05-29 04:59 :00 No [id number] 650mg Take 2 tablets by mouth as needed (Before infusion). [facility] acetaminoph en (TYLENOL) 325 mg tablet 2021-07 00:00: 00 05-29 04:59 :00 No [id number] 650mg Take 2 tablets by mouth as needed (Before infusion). [facility] acetaminoph en (TYLENOL) 325 mg tablet 2021-07 00:00: 00 05-29 04:59 :00 No [id number] 650mg Take 2 tablets by mouth as needed (Before infusion). [facility] acetaminoph en (TYLENOL) 325 mg tablet 2021-07 00:00: 00 05-29 04:59 :00 No [id number] 650mg Take 2 tablets by mouth as needed (Before infusion). [facility] acetaminoph en (TYLENOL) 325 mg tablet 2021-07 00:00: 00 05-29 04:59 :00 No [id number] 650mg Take 2 tablets by mouth as needed (Before infusion). [facility] acetaminoph en (TYLENOL) 325 mg tablet 2021-07 00:00: 00 05-29 04:59 :00 No [id number] 650mg Take 2 tablets by mouth as needed (Before infusion). [facility] acetaminoph en (TYLENOL) 325 mg tablet 2021-07 00:00: 00 05-29 04:59 :00 No [id number] 650mg Take 2 tablets by mouth as needed (Before infusion). [facility] acetaminoph en (TYLENOL) 325 mg tablet 2021-07 00:00: 00 05-29 04:59 :00 No [id number] 650mg Take 2 tablets by mouth as needed (Before infusion). [facility] acetaminoph en (TYLENOL) 325 mg tablet 2021-07 00:00: 00 05-29 04:59 :00 No [id number] 650mg Take 2 tablets by mouth as needed (Before infusion). [facility] acetaminoph en (TYLENOL) 325 mg tablet 2021-07 00:00: 00 05-29 04:59 :00 No [id number] 650mg Take 2 tablets by mouth as needed (Before infusion). [facility] acetaminoph en (TYLENOL) 325 mg tablet 2021-07 00:00: 00 05-29 04:59 :00 No [id number] 650mg Take 2 tablets by mouth as needed (Before infusion). [facility] acetaminoph en (TYLENOL) 325 mg tablet 2021-07 00:00: 00 05-29 04:59 :00 No [id number] 650mg Take 2 tablets by mouth as needed (Before infusion). [facility] acetaminoph en (TYLENOL) 325 mg tablet 2021-07 00:00: 00 05-29 04:59 :00 No [id number] 650mg Take 2 tablets by mouth as needed (Before infusion). [facility] acetaminoph en (TYLENOL) 325 mg tablet 2021-07 00:00: 00 05-29 04:59 :00 No [id number] 650mg Take 2 tablets by mouth as needed (Before infusion). [facility] acetaminoph en (TYLENOL) 325 mg tablet 2021-07 00:00: 00 05-29 04:59 :00 No [id number] 650mg Take 2 tablets by mouth as needed (Before infusion). [facility] acetaminoph en (TYLENOL) 325 mg tablet 2021-07 00:00: 00 05-29 04:59 :00 No [id number] 650mg Take 2 tablets by mouth as needed (Before infusion). [facility] acetaminoph en (TYLENOL) 325 mg tablet 2021-07 00:00: 00 05-29 04:59 :00 No [id number] 650mg Take 2 tablets by mouth as needed (Before infusion). [facility] acetaminoph en (TYLENOL) 325 mg tablet 2021-07 00:00: 00 05-29 04:59 :00 No [id number] 650mg Take 2 tablets by mouth as needed (Before infusion). [facility] acetaminoph en (TYLENOL) 325 mg tablet 2021-07 00:00: 00 05-29 04:59 :00 No [id number] 650mg Take 2 tablets by mouth as needed (Before infusion). [facility] acetaminoph en (TYLENOL) 325 mg tablet 2021-07 00:00: 00 05-29 04:59 :00 No [id number] 650mg Take 2 tablets by mouth as needed (Before infusion). [facility] acetaminoph en (TYLENOL) 325 mg tablet 2021-07 00:00: 00 05-29 04:59 :00 No [id number] 650mg Take 2 tablets by mouth as needed (Before infusion). [facility] acetaminoph en (TYLENOL) 325 mg tablet 2021-07 00:00: 00 05-29 04:59 :00 No [id number] 650mg Take 2 tablets by mouth as needed (Before infusion). [facility] acetaminoph en (TYLENOL) 325 mg tablet 2021-07 00:00: 00 05-29 04:59 :00 No [id number] 650mg Take 2 tablets by mouth as needed (Before infusion). [facility] acetaminoph en (TYLENOL) 325 mg tablet 2021-07 00:00: 00 05-29 04:59 :00 No [id number] 650mg Take 2 tablets by mouth as needed (Before infusion). [facility] acetaminoph en (TYLENOL) 325 mg tablet 2021-07 00:00: 00 05-29 04:59 :00 No [id number] 650mg Take 2 tablets by mouth as needed (Before infusion). [facility] acetaminoph en (TYLENOL) 325 mg tablet 2021-07 00:00: 00 05-29 04:59 :00 No [id number] 650mg Take 2 tablets by mouth as needed (Before infusion). [facility] acetaminoph en (TYLENOL) 325 mg tablet 2021-07 00:00: 00 05-29 04:59 :00 No [id number] 650mg Take 2 tablets by mouth as needed (Before infusion). [facility] acetaminoph en (TYLENOL) 325 mg tablet 2021-07 00:00: 00 05-29 04:59 :00 No [id number] 650mg Take 2 tablets by mouth as needed (Before infusion). [facility] acetaminoph en (TYLENOL) 325 mg tablet 2021-07 00:00: 00 05-29 04:59 :00 No [id number] 650mg Take 2 tablets by mouth as needed (Before infusion). [facility] acetaminoph en (TYLENOL) 325 mg tablet 2021-07 00:00: 00 05-29 04:59 :00 No [id number] 650mg Take 2 tablets by mouth as needed (Before infusion). [facility] acetaminoph en (TYLENOL) 325 mg tablet 2021-07 00:00: 00 05-29 04:59 :00 No [id number] 650mg Take 2 tablets by mouth as needed (Before infusion). [facility] acetaminoph en (TYLENOL) 325 mg tablet 2021-07 00:00: 00 05-29 04:59 :00 No [id number] 650mg Take 2 tablets by mouth as needed (Before infusion). [facility] acetaminoph en (TYLENOL) 325 mg tablet 2021-07 00:00: 00 05-29 04:59 :00 No [id number] 650mg Take 2 tablets by mouth as needed (Before infusion). [facility] acetaminoph en (TYLENOL) 325 mg tablet 2021-07 00:00: 00 05-29 04:59 :00 No [id number] 650mg Take 2 tablets by mouth as needed (Before infusion). [facility] acetaminoph en (TYLENOL) 325 mg tablet 2021-07 00:00: 05-29 04:59 :00 No [id number] 650mg Take 2 tablets by mouth as needed (Before infusion). [facility] acetaminoph en (TYLENOL) 325 mg tablet 2021-07 00:00: 00 05-29 04:59 :00 No [id number] 650mg Take 2 tablets by mouth as needed (Before infusion). [facility] acetaminoph en (TYLENOL) 325 mg tablet 2021-07 00:00: 00 03-21 00:00 :00 No [id number] 650mg Take 2 tablets by mouth as needed (Before infusion). [facility] diphenhydrA MINE 25 mg tablet 2021-07 00:00: 00 08-12 00:00 :00 No [id number] 25mg Take 1 tablet by mouth as needed for Allergies (Before infusion). [facility] diphenhydrA MINE 25 mg tablet 2021-07 00:00: 08-12 00:00 :00 No [id number] 25mg Take 1 tablet by mouth as needed for Allergies (Before infusion). [facility] riTUXimab (RITUXAN) 1,000 mg in NaCl 0.9% (NS) 1,000 mL infusion 2021-07 16:00: 00 05-20 21:37 :00 No [id number] 1000mg 1,000 mg, IV Infusion, ONCE, On [facility] 05/20/22 at 1100, For 1 dose
In itial infusion: start rate at 50 mg/hr. If there is no reaction, increase rate by 50 mg/hr increments every 30 minutes to a maximum of 400 mg/hr.&nbs p;Subseque nt infusions: initiate rate at 100 mg/hr. If infusion is well-sudeep ated, rate may be escalated in 100 mg/hr increments at 30 minute intervals to a maximum of 400 mg/hr.&nbs p;For NHL, from Cycle 2 onward, may give over 90 minutes.&n bsp; Diluted solution may be refrigerat ed for 24 hours.&nbs p; Co mplete administra tion within 8 hours from removal from refrigerat ion. Infu mike-Relat ed Reactions (IRR):&nbs p;Rituxima b products can cause severe, including fatal, infusion-r elated reactions. Severe reactions typically occurred during the first infusion with time to onset of 30-120 minutes.&n bsp; Rituximab product-in duced infusion-r elated reactions and sequelae include urticaria, hypotensio n, angioedema , hypoxia, bronchospa sm, pulmonary infiltrate s, acute respirator y distress syndrome, myocardial infarction , ventricula r fibrillati on, cardiogeni c shock, anaphylact oid events, or .&nbs p;&nbs p;Premedic ate patients with an antihistam ine and acetaminop hen prior to dosing. For patients with Granulomat osis with Polyangiit is (GPA) (Megan's Granulomat osis) and Microscopi c Polyangiit is (MPA), methylpred nisolone 100 mg intravenou sly or its equivalent is recommende d 30 minutes prior to each infusion. [place] medical management (e.g., glucocorti coids, epinephrin e, bronchodil ators, or oxygen) for infusion-r elated reactions as needed. Depending on the severity of the infusion-r elated reaction and the required interventi ons, temporaril y or permanentl y discontinu e RUXIENCE. Resume infusion at a minimum 50% reduction in rate after symptoms have resolved.& nbsp;Close ly monitor the following patients: those with preexistin g cardiac or pulmonary conditions , those who experience d prior cardiopulm onary adverse reactions, and those with high numbers of circulatin g malignant cells (greater than or equal to 25,000/mm3 ). &n bsp;BOXED WARNINGS:& nbsp;WARNI NG: FATAL INFUSION-R ELATED REACTIONS, SEVERE MUCOCUTANE OUS REACTIONS, HEPATITIS B VIRUS REACTIVATI ON and PROGRESSIV E MULTIFOCAL LEUKOENCEP HALOPATHY& nbsp;Infus ion-relate d reactions: Rituximab administra tion can result in serious, including fatal infusion-r elated reactions. Deaths within 24 hours of Rituximab infusion have occurred. Approximat dolores 80% of fatal infusion-r elated reactions occurred in associatio n with the first infusion. Monitor patients closely. Discontinu e Rituximab infusion for severe reactions and provide medical treatment for Grade 3 or 4 infusion-r elated reactions. &amp ;nbsp;Sharon re Mucocutane ous Reactions: Severe, including fatal, mucocutane ous reactions can occur in patients receiving Rituximab. &nbs p;Hepatiti s B Virus (HBV) Reactivati on: HBV reactivati on can occur in patients treated with Rituximab, in some cases resulting in fulminant hepatitis, hepatic failure, and . Screen all patients for HBV infection before treatment initiation , and monitor patients during and after treatment with Rituximab. Discontinu e Rituximab and concomitan t medication s in the event of HBV reactivati on. & nbsp;Progr essive Multifocal Leukoencep halopathy (PML), including fatal PML, can occur in patients receiving Rituximab. &nbs p;
[facility] riTUXimab (RITUXAN) 1,000 mg in NaCl 0.9% (NS) 1,000 mL infusion 2021-07 16:00: 00 05-20 21:37 :00 No [id number] 1000mg 1,000 mg, IV Infusion, ONCE, On [facility] 05/20/22 at 1100, For 1 dose
In itial infusion: start rate at 50 mg/hr. If there is no reaction, increase rate by 50 mg/hr increments every 30 minutes to a maximum of 400 mg/hr.&nbs p;Subseque nt infusions: initiate rate at 100 mg/hr. If infusion is well-sudeep ated, rate may be escalated in 100 mg/hr increments at 30 minute intervals to a maximum of 400 mg/hr.&nbs p;For NHL, from Cycle 2 onward, may give over 90 minutes.&n bsp; Diluted solution may be refrigerat ed for 24 hours.&nbs p; Co mplete administra tion within 8 hours from removal from refrigerat ion. Infu mike-Relat ed Reactions (IRR):&nbs p;Rituxima b products can cause severe, including fatal, infusion-r elated reactions. Severe reactions typically occurred during the first infusion with time to onset of 30-120 minutes.&n bsp; Rituximab product-in duced infusion-r elated reactions and sequelae include urticaria, hypotensio n, angioedema , hypoxia, bronchospa sm, pulmonary infiltrate s, acute respirator y distress syndrome, myocardial infarction , ventricula r fibrillati on, cardiogeni c shock, anaphylact oid events, or .&nbs p;&nbs p;Premedic ate patients with an antihistam ine and acetaminop hen prior to dosing. For patients with Granulomat osis with Polyangiit is (GPA) (Megan's Granulomat osis) and Microscopi c Polyangiit is (MPA), methylpred nisolone 100 mg intravenou sly or its equivalent is recommende d 30 minutes prior to each infusion. [place] [facility] (e.g., glucocorti coids, epinephrin e, bronchodil ators, or oxygen) for infusion-r elated reactions as needed. Depending on the severity of the infusion-r elated reaction and the required interventi ons, temporaril y or permanentl y discontinu e RUXIENCE. Resume infusion at a minimum 50% reduction in rate after symptoms have resolved.& nbsp;Close ly monitor the following patients: those with preexistin g cardiac or pulmonary conditions , those who experience d prior cardiopulm onary adverse reactions, and those with high numbers of circulatin g malignant cells (greater than or equal to 25,000/mm3 ). &n bsp;BOXED WARNINGS:& nbsp;WARNI NG: FATAL INFUSION-R ELATED REACTIONS, SEVERE MUCOCUTANE OUS REACTIONS, HEPATITIS B VIRUS REACTIVATI ON and PROGRESSIV E MULTIFOCAL LEUKOENCEP HALOPATHY& nbsp;Infus ion-relate d reactions: Rituximab administra tion can result in serious, including fatal infusion-r elated reactions. Deaths within 24 hours of Rituximab infusion have occurred. Approximat dolores 80% of fatal infusion-r elated reactions occurred in associatio n with the first infusion. Monitor patients closely. Discontinu e Rituximab infusion for severe reactions and provide medical treatment for Grade 3 or 4 infusion-r elated reactions. &amp ;nbsp;Sharon re Mucocutane ous Reactions: Severe, including fatal, mucocutane ous reactions can occur in patients receiving Rituximab. &nbs p;Hepatiti s B Virus (HBV) Reactivati on: HBV reactivati on can occur in patients treated with Rituximab, in some cases resulting in fulminant hepatitis, hepatic failure, and . Screen all patients for HBV infection before treatment initiation , and monitor patients during and after treatment with Rituximab. Discontinu e Rituximab and concomitan t medication s in the event of HBV reactivati on. & nbsp;Progr essive Multifocal Leukoencep halopathy (PML), including fatal PML, can occur in patients receiving Rituximab. &nbs p;
[facility] riTUXimab (RITUXAN) 1,000 mg in NaCl 0.9% (NS) 1,000 mL infusion 2021-07 16:00: 00 05-20 21:37 :00 No [id number] 1000mg 1,000 mg, IV Infusion, ONCE, On [place] 05/20/22 at 1100, For 1 dose
In itial infusion: start rate at 50 mg/hr. If there is no reaction, increase rate by 50 mg/hr increments every 30 minutes to a maximum of 400 mg/hr.&nbs p;Subseque nt infusions: initiate rate at 100 mg/hr. If infusion is well-sudeep ated, rate may be escalated in 100 mg/hr increments at 30 minute intervals to a maximum of 400 mg/hr.&nbs p;For NHL, from Cycle 2 onward, may give over 90 minutes.&n bsp; Diluted solution may be refrigerat ed for 24 hours.&nbs p; Co mplete administra tion within 8 hours from removal from refrigerat ion. Infu mike-Relat ed Reactions (IRR):&nbs p;Rituxima b products can cause severe, including fatal, infusion-r elated reactions. Severe reactions typically occurred during the first infusion with time to onset of 30-120 minutes.&n bsp; Rituximab product-in duced infusion-r elated reactions and sequelae include urticaria, hypotensio n, angioedema , hypoxia, bronchospa sm, pulmonary infiltrate s, acute respirator y distress syndrome, myocardial infarction , ventricula r fibrillati on, cardiogeni c shock, anaphylact oid events, or .&nbs p;&nbs p;Premedic ate patients with an antihistam ine and acetaminop hen prior to dosing. For patients with Granulomat osis with Polyangiit is (GPA) (Megan's Granulomat osis) and Microscopi c Polyangiit is (MPA), methylpred nisolone 100 mg intravenou sly or its equivalent is recommende d 30 minutes prior to each infusion. [place] [facility] (e.g., glucocorti coids, epinephrin e, bronchodil ators, or oxygen) for infusion-r elated reactions as needed. Depending on the severity of the infusion-r elated reaction and the required interventi ons, temporaril y or permanentl y discontinu e RUXIENCE. Resume infusion at a minimum 50% reduction in rate after symptoms have resolved.& nbsp;Close ly monitor the following patients: those with preexistin g cardiac or pulmonary conditions , those who experience d prior cardiopulm onary adverse reactions, and those with high numbers of circulatin g malignant cells (greater than or equal to 25,000/mm3 ). &n bsp;BOXED WARNINGS:& nbsp;PATY NG: FATAL INFUSION-R ELATED REACTIONS, SEVERE MUCOCUTANE OUS REACTIONS, HEPATITIS B VIRUS REACTIVATI ON and PROGRESSIV E MULTIFOCAL LEUKOENCEP HALOPATHY& nbsp;Infus ion-relate d reactions: Rituximab administra tion can result in serious, including fatal infusion-r elated reactions. Deaths within 24 hours of Rituximab infusion have occurred. Approximat dolores 80% of fatal infusion-r elated reactions occurred in associatio n with the first infusion. Monitor patients closely. Discontinu e Rituximab infusion for severe reactions and provide medical treatment for Grade 3 or 4 infusion-r elated reactions. &amp ;nbsp;Sharon re Mucocutane ous Reactions: Severe, including fatal, mucocutane ous reactions can occur in patients receiving Rituximab. &nbs p;Hepatiti s B Virus (HBV) Reactivati on: HBV reactivati on can occur in patients treated with Rituximab, in some cases resulting in fulminant hepatitis, hepatic failure, and . Screen all patients for HBV infection before treatment initiation , and monitor patients during and after treatment with Rituximab. Discontinu e Rituximab and concomitan t medication s in the event of HBV reactivati on. & nbsp;Progr essive Multifocal Leukoencep halopathy (PML), including fatal PML, can occur in patients receiving Rituximab. &nbs p;
[facility] riTUXimab (RITUXAN) 1,000 mg in NaCl 0.9% (NS) 1,000 mL infusion 2021-07 16:00: 00 05-20 21:37 :00 No [id number] 1000mg 1,000 mg, IV Infusion, ONCE, On [place] 05/20/22 at 1100, For 1 dose
In itial infusion: start rate at 50 mg/hr. If there is no reaction, increase rate by 50 mg/hr increments every 30 minutes to a maximum of 400 mg/hr.&nbs p;Subseque nt infusions: initiate rate at 100 mg/hr. If infusion is well-sudeep ated, rate may be escalated in 100 mg/hr increments at 30 minute intervals to a maximum of 400 mg/hr.&nbs p;For NHL, from Cycle 2 onward, may give over 90 minutes.&n bsp; Diluted solution may be refrigerat ed for 24 hours.&nbs p; Co mplete administra tion within 8 hours from removal from refrigerat ion. Infu mike-Relat ed Reactions (IRR):&nbs p;Rituxima b products can cause severe, including fatal, infusion-r elated reactions. Severe reactions typically occurred during the first infusion with time to onset of 30-120 minutes.&n bsp; Rituximab product-in duced infusion-r elated reactions and sequelae include urticaria, hypotensio n, angioedema , hypoxia, bronchospa sm, pulmonary infiltrate s, acute respirator y distress syndrome, myocardial infarction , ventricula r fibrillati on, cardiogeni c shock, anaphylact oid events, or .&nbs p;&nbs p;Premedic ate patients with an antihistam ine and acetaminop hen prior to dosing. For patients with Granulomat osis with Polyangiit is (GPA) (Megan's Granulomat osis) and Microscopi c Polyangiit is (MPA), methylpred nisolone 100 mg intravenou sly or its equivalent is recommende d 30 minutes prior to each infusion. [place] [facility] (e.g., glucocorti coids, epinephrin e, bronchodil ators, or oxygen) for infusion-r elated reactions as needed. Depending on the severity of the infusion-r elated reaction and the required interventi ons, temporaril y or permanentl y discontinu e RUXIENCE. Resume infusion at a minimum 50% reduction in rate after symptoms have resolved.& nbsp;Close ly monitor the following patients: those with preexistin g cardiac or pulmonary conditions , those who experience d prior cardiopulm onary adverse reactions, and those with high numbers of circulatin g malignant cells (greater than or equal to 25,000/mm3 ). &n bsp;BOXED WARNINGS:& nbsp;WARNI NG: FATAL INFUSION-R ELATED REACTIONS, SEVERE MUCOCUTANE OUS REACTIONS, HEPATITIS B VIRUS REACTIVATI ON and PROGRESSIV E MULTIFOCAL LEUKOENCEP HALOPATHY& nbsp;Infus ion-relate d reactions: Rituximab administra tion can result in serious, including fatal infusion-r elated reactions. Deaths within 24 hours of Rituximab infusion have occurred. Approximat dolores 80% of fatal infusion-r elated reactions occurred in associatio n with the first infusion. Monitor patients closely. Discontinu e Rituximab infusion for severe reactions and provide medical treatment for Grade 3 or 4 infusion-r elated reactions. &amp ;nbsp;Sharon re Mucocutane ous Reactions: Severe, including fatal, mucocutane ous reactions can occur in patients receiving Rituximab. &nbs p;Hepatiti s B Virus (HBV) Reactivati on: HBV reactivati on can occur in patients treated with Rituximab, in some cases resulting in fulminant hepatitis, hepatic failure, and . Screen all patients for HBV infection before treatment initiation , and monitor patients during and after treatment with Rituximab. Discontinu e Rituximab and concomitan t medication s in the event of HBV reactivati on. & nbsp;Progr essive Multifocal Leukoencep halopathy (PML), including fatal PML, can occur in patients receiving Rituximab. &nbs p;
[facility] riTUXimab (RITUXAN) 1,000 mg in NaCl 0.9% (NS) 1,000 mL infusion 2021-07 16:00: 00 05-20 21:37 :00 No [id number] 1000mg 1,000 mg, IV Infusion, ONCE, On [place] 05/20/22 at 1100, For 1 dose
In itial infusion: start rate at 50 mg/hr. If there is no reaction, increase rate by 50 mg/hr increments every 30 minutes to a maximum of 400 mg/hr.&nbs p;Subseque nt infusions: initiate rate at 100 mg/hr. If infusion is well-sudeep ated, rate may be escalated in 100 mg/hr increments at 30 minute intervals to a maximum of 400 mg/hr.&nbs p;For NHL, from Cycle 2 onward, may give over 90 minutes.&n bsp; Diluted solution may be refrigerat ed for 24 hours.&nbs p; Co mplete administra tion within 8 hours from removal from refrigerat ion. Infu mike-Relat ed Reactions (IRR):&nbs p;Rituxima b products can cause severe, including fatal, infusion-r elated reactions. Severe reactions typically occurred during the first infusion with time to onset of 30-120 minutes.&n bsp; Rituximab product-in duced infusion-r elated reactions and sequelae include urticaria, hypotensio n, angioedema , hypoxia, bronchospa sm, pulmonary infiltrate s, acute respirator y distress syndrome, myocardial infarction , ventricula r fibrillati on, cardiogeni c shock, anaphylact oid events, or .&nbs p;&nbs p;Premedic ate patients with an antihistam ine and acetaminop hen prior to dosing. For patients with Granulomat osis with Polyangiit is (GPA) (Megan's Granulomat osis) and Microscopi c Polyangiit is (MPA), methylpred nisolone 100 mg intravenou sly or its equivalent is recommende d 30 minutes prior to each infusion. [place] [facility] (e.g., glucocorti coids, epinephrin e, bronchodil ators, or oxygen) for infusion-r elated reactions as needed. Depending on the severity of the infusion-r elated reaction and the required interventi ons, temporaril y or permanentl y discontinu e RUXIENCE. Resume infusion at a minimum 50% reduction in rate after symptoms have resolved.& nbsp;Close ly monitor the following patients: those with preexistin g cardiac or pulmonary conditions , those who experience d prior cardiopulm onary adverse reactions, and those with high numbers of circulatin g malignant cells (greater than or equal to 25,000/mm3 ). &n bsp;BOXED WARNINGS:& nbsp;PATY NG: FATAL INFUSION-R ELATED REACTIONS, SEVERE MUCOCUTANE OUS REACTIONS, HEPATITIS B VIRUS REACTIVATI ON and PROGRESSIV E MULTIFOCAL LEUKOENCEP HALOPATHY& nbsp;Infus ion-relate d reactions: Rituximab administra tion can result in serious, including fatal infusion-r elated reactions. Deaths within 24 hours of Rituximab infusion have occurred. Approximat dolores 80% of fatal infusion-r elated reactions occurred in associatio n with the first infusion. Monitor patients closely. Discontinu e Rituximab infusion for severe reactions and provide medical treatment for Grade 3 or 4 infusion-r elated reactions. &amp ;nbsp;Sharon re Mucocutane ous Reactions: Severe, including fatal, mucocutane ous reactions can occur in patients receiving Rituximab. &nbs p;Hepatiti s B Virus (HBV) Reactivati on: HBV reactivati on can occur in patients treated with Rituximab, in some cases resulting in fulminant hepatitis, hepatic failure, and . Screen all patients for HBV infection before treatment initiation , and monitor patients during and after treatment with Rituximab. Discontinu e Rituximab and concomitan t medication s in the event of HBV reactivati on. & nbsp;Progr essive Multifocal Leukoencep halopathy (PML), including fatal PML, can occur in patients receiving Rituximab. &nbs p;
[facility] diphenhydrA MINE (BENADRYL) tablet 25 mg 2021-07 15:45: 00 05-20 14:50 :00 No [id number] 25mg 25 mg, Oral, ONCE, 1 dose, On [place] 05/20/22 at 1045, Routine [facility] acetaminoph en (TYLENOL) tablet 650 mg 2021-07 15:45: 00 05-20 14:50 :00 No [id number] 650mg 650 mg, Oral, ONCE, 1 dose, On [place] 05/20/22 at 1045, Routine [facility] diphenhydrA MINE (BENADRYL) tablet 25 mg 2021-07 15:45: 00 05-20 14:50 :00 No [id number] 25mg 25 mg, Oral, ONCE, 1 dose, On [place] 05/20/22 at 1045, Routine [facility] acetaminoph en (TYLENOL) tablet 650 mg 2021-07 15:45: 00 05-20 14:50 :00 No [id number] 650mg 650 mg, Oral, ONCE, 1 dose, On [place] 05/20/22 at 1045, [facility]ine [facility] diphen[facility]A MINE (BENADRYL) tablet 25 mg 2021-07 15:45: 00 05-20 14:50 :00 No [id number] 25mg 25 mg, Oral, ONCE, 1 dose, On [place] 05/20/22 at 1045, Routine [facility] acetaminoph en (TYLENOL) tablet 650 mg 2021-07 15:45: 00 05-20 14:50 :00 No [id number] 650mg 650 mg, Oral, ONCE, 1 dose, On [place] 05/20/22 at 1045, [facility]ine [facility] diphen[facility]A MINE (BENADRYL) tablet 25 mg 2021-07 15:45: 00 05-20 14:50 :00 No [id number] 25mg 25 mg, Oral, ONCE, 1 dose, On [place] 05/20/22 at 1045, Routine [facility] acetaminoph en (TYLENOL) tablet 650 mg 2021-07 15:45: 00 05-20 14:50 :00 No [id number] 650mg 650 mg, Oral, ONCE, 1 dose, On [place] 05/20/22 at 1045, Routine [facility] diphenhydrA MINE (BENADRYL) tablet 25 mg 2021-07 15:45: 00 05-20 14:50 :00 No [id number] 25mg 25 mg, Oral, ONCE, 1 dose, On [place] 05/20/22 at 1045, Routine [facility] acetaminoph en (TYLENOL) tablet 650 mg 2021-07 15:45: 00 05-20 14:50 :00 No [id number] 650mg 650 mg, Oral, ONCE, 1 dose, On [place] 05/20/22 at 1045, Routine [facility] omega-3s-dh a-epa-fish oil-D3 (FISH OIL-VIT D3) 360 mg-1,200 mg -1,000 unit Cap 2021-07 15:58: 17 Yes Take by mouth. [facility] atorvastati n (LIPITOR) 20 mg tablet 2021-07 15:58: 17 Yes 20mg Take 20 mg by mouth at bedtime. [facility] MULTIVITS-M INERALS/FA/ LYCOPENE (ONE-A-DAY MEN'S MULTIVITAMI N ORAL) 2021-07 15:58: 17 Yes Take by mouth. [facility] ibuprofen (ADVIL) 200 mg tablet 2021-07 15:58: 17 Yes 200mg Take 200 mg by mouth 2 (two) times daily with meals. [facility] POTASSIUM-9 9 ORAL 2021-07 15:58: 17 Yes 99mg Take 99 mg by mouth daily. [facility] vitamin B-12 100 mcg tablet 2021-07 15:58: 17 Yes 2500ug Take 2,500 mcg by mouth daily. [facility] omega-3s-dh a-epa-fish oil-D3 (FISH OIL-VIT D3) 360 mg-1,200 mg -1,000 unit Cap 2021-07 15:58: 17 Yes Take by mouth. [facility] atorvastati n (LIPITOR) 20 mg tablet 2021-07 15:58: 17 Yes 20mg Take 20 mg by mouth at bedtime. [facility] MULTIVITS-M INERALS/FA/ LYCOPENE (ONE-A-DAY MEN'S MULTIVITAMI N ORAL) 2021-07 0 15:58: 17 Yes Take by mouth. [facility] ibuprofen (ADVIL) 200 mg tablet 2021-07 15:58: 17 Yes 200mg Take 200 mg by mouth 2 (two) times daily with meals. [facility] POTASSIUM-9 9 ORAL 2021-0715 15:58: 17 Yes 99mg Take 99 mg by mouth daily. [facility] vitamin B-12 100 mcg tablet 2021-07 15:58: 17 Yes 2500ug Take 2,500 mcg by mouth daily. [facility] omega-3s-dh a-epa-fish oil-D3 (FISH OIL-VIT D3) 360 mg-1,200 mg -1,000 unit Cap 2021-0715 15:58: 17 Yes Take by mouth. [facility] atorvastati n (LIPITOR) 20 mg tablet 2021-07 15:58: 17 Yes 20mg Take 20 mg by mouth at bedtime. [facility] MULTIVITS-M INERALS/FA/ LYCOPENE (ONE-A-DAY MEN'S MULTIVITAMI N ORAL) 2021-07 15:58: 17 Yes Take by mouth. [facility] ibuprofen (ADVIL) 200 mg tablet 2021-07 15:58: 17 Yes 200mg Take 200 mg by mouth 2 (two) times daily with meals. [facility] POTASSIUM-9 9 ORAL 2021-07 15:58: 17 Yes 99mg Take 99 mg by mouth daily. [facility] vitamin B-12 100 mcg tablet 2021-0715 15:58: 17 Yes 2500ug Take 2,500 mcg by mouth daily. [facility] omega-3s-dh a-epa-fish oil-D3 (FISH OIL-VIT D3) 360 mg-1,200 mg -1,000 unit Cap 2021-07 015 15:58: 17 Yes Take by mouth. [facility] atorvastati n (LIPITOR) 20 mg tablet 2021-07 15:58: 17 Yes 20mg Take 20 mg by mouth at bedtime. [facility] MULTIVITS-M INERALS/FA/ LYCOPENE (ONE-A-DAY MEN'S MULTIVITAMI N ORAL) 2021-07 0 15:58: 17 Yes Take by mouth. [facility] ibuprofen (ADVIL) 200 mg tablet 2021-07 15:58: 17 Yes 200mg Take 200 mg by mouth 2 (two) times daily with meals. [facility] POTASSIUM-9 9 ORAL 2021-0715 15:58: 17 Yes 99mg Take 99 mg by mouth daily. [facility] vitamin B-12 100 mcg tablet 2021-07 15:58: 17 Yes 2500ug Take 2,500 mcg by mouth daily. [facility] omega-3s-dh a-epa-fish oil-D3 (FISH OIL-VIT D3) 360 mg-1,200 mg -1,000 unit Cap 2021-0715 15:58: 17 Yes Take by mouth. [facility] atorvastati n (LIPITOR) 20 mg tablet 2021-07 15:58: 17 Yes 20mg Take 20 mg by mouth at bedtime. [facility] MULTIVITS-M INERALS/FA/ LYCOPENE (ONE-A-DAY MEN'S MULTIVITAMI N ORAL) 2021-07 15:58: 17 Yes Take by mouth. [facility] ibuprofen (ADVIL) 200 mg tablet 2021-07 15:58: 17 Yes 200mg Take 200 mg by mouth 2 (two) times daily with meals. [facility] POTASSIUM-9 9 ORAL 2021-0715 15:58: 17 Yes 99mg Take 99 mg by mouth daily. [facility] vitamin B-12 100 mcg tablet 2021-07 15:58: 17 Yes 2500ug Take 2,500 mcg by mouth daily. [facility] omega-3s-dh a-epa-fish oil-D3 (FISH OIL-VIT D3) 360 mg-1,200 mg -1,000 unit Cap 2021-07 015 15:58: 17 Yes Take by mouth. [facility] atorvastati n (LIPITOR) 20 mg tablet 2021-0715 15:58: 17 Yes 20mg Take 20 mg by mouth at bedtime. [facility] MULTIVITS-M INERALS/FA/ LYCOPENE (ONE-A-DAY MEN'S MULTIVITAMI N ORAL) 2021-07 0 15:58: 17 Yes Take by mouth. [facility] ibuprofen (ADVIL) 200 mg tablet 2021-07 15:58: 17 Yes 200mg Take 200 mg by mouth 2 (two) times daily with meals. [facility] POTASSIUM-9 9 ORAL 2021-07 015 15:58: 17 Yes 99mg Take 99 mg by mouth daily. [facility] vitamin B-12 100 mcg tablet 2021-07 15:58: 17 Yes 2500ug Take 2,500 mcg by mouth daily. [facility] omega-3s-dh a-epa-fish oil-D3 (FISH OIL-VIT D3) 360 mg-1,200 mg -1,000 unit Cap 2021-0715 15:58: 17 Yes Take by mouth. [facility] atorvastati n (LIPITOR) 20 mg tablet 2021-07 15:58: 17 Yes 20mg Take 20 mg by mouth at bedtime. [facility] MULTIVITS-M INERALS/FA/ LYCOPENE (ONE-A-DAY MEN'S MULTIVITAMI N ORAL) 2021-0715 15:58: 17 Yes Take by mouth. [facility] ibuprofen (ADVIL) 200 mg tablet 2021-07 15:58: 17 Yes 200mg Take 200 mg by mouth 2 (two) times daily with meals. [facility] POTASSIUM-9 9 ORAL 2021-07 015 15:58: 17 Yes 99mg Take 99 mg by mouth daily. [facility] vitamin B-12 100 mcg tablet 2021-0715 15:58: 17 Yes 2500ug Take 2,500 mcg by mouth daily. [facility] omega-3s-dh a-epa-fish oil-D3 (FISH OIL-VIT D3) 360 mg-1,200 mg -1,000 unit Cap 2021-07 015 15:58: 17 Yes Take by mouth. [facility] atorvastati n (LIPITOR) 20 mg tablet 2021-07 15:58: 17 Yes 20mg Take 20 mg by mouth at bedtime. [facility] MULTIVITS-M INERALS/FA/ LYCOPENE (ONE-A-DAY MEN'S MULTIVITAMI N ORAL) 2021-07 15:58: 17 Yes Take by mouth. [facility] ibuprofen (ADVIL) 200 mg tablet 2021-07 15:58: 17 Yes 200mg Take 200 mg by mouth 2 (two) times daily with meals. [facility] POTASSIUM-9 9 ORAL 2021-07 15:58: 17 Yes 99mg Take 99 mg by mouth daily. [facility] vitamin B-12 100 mcg tablet 2021-07 15:58: 17 Yes 2500ug Take 2,500 mcg by mouth daily. [facility] omega-3s-dh a-epa-fish oil-D3 (FISH OIL-VIT D3) 360 mg-1,200 mg -1,000 unit Cap 2021-0715 15:58: 17 Yes Take by mouth. [facility] atorvastati n (LIPITOR) 20 mg tablet 2021-07 15:58: 17 Yes 20mg Take 20 mg by mouth at bedtime. [facility] MULTIVITS-M INERALS/FA/ LYCOPENE (ONE-A-DAY MEN'S MULTIVITAMI N ORAL) 2021-07 15:58: 17 Yes Take by mouth. [facility] POTASSIUM-9 9 ORAL 2021-07 15:58: 17 Yes 99mg Take 99 mg by mouth daily. [facility] vitamin B-12 100 mcg tablet 2022-1 0-15 15:58: 17 Yes 2500ug Take 2,500 mcg by mouth daily. [facility] omega-3s-dh a-epa-fish oil-D3 (FISH OIL-VIT D3) 360 mg-1,200 mg -1,000 unit Cap 2021-07 015 15:58: 17 Yes Take by mouth. [facility] atorvastati n (LIPITOR) 20 mg tablet 2021-07 015 15:58: 17 Yes 20mg Take 20 mg by mouth at bedtime. [facility] MULTIVITS-M INERALS/FA/ LYCOPENE (ONE-A-DAY MEN'S MULTIVITAMI N ORAL) 2021-07 015 15:58: 17 Yes Take by mouth. [facility] POTASSIUM-9 9 ORAL 2021-07 0 15:58: 17 Yes 99mg Take 99 mg by mouth daily. [facility] vitamin B-12 100 mcg tablet 2021-07 0 15:58: 17 Yes 2500ug Take 2,500 mcg by mouth daily. [facility] omega-3s-dh a-epa-fish oil-D3 (FISH OIL-VIT D3) 360 mg-1,200 mg -1,000 unit Cap 2021-07 015 15:58: 17 Yes Take by mouth. [facility] atorvastati n (LIPITOR) 20 mg tablet 2021-07 015 15:58: 17 Yes 20mg Take 20 mg by mouth at bedtime. [facility] MULTIVITS-M INERALS/FA/ LYCOPENE (ONE-A-DAY MEN'S MULTIVITAMI N ORAL) 2021-07 015 15:58: 17 Yes Take by mouth. [facility] POTASSIUM-9 9 ORAL 2021-07 015 15:58: 17 Yes 99mg Take 99 mg by mouth daily. [facility] vitamin B-12 100 mcg tablet 2021-07 15:58: 17 Yes 2500ug Take 2,500 mcg by mouth daily. [facility] omega-3s-dh a-epa-fish oil-D3 (FISH OIL-VIT D3) 360 mg-1,200 mg -1,000 unit Cap 2021-07 0-15 15:58: 17 Yes Take by mouth. [facility] atorvastati n (LIPITOR) 20 mg tablet 2021-07 0 15:58: 17 Yes 20mg Take 20 mg by mouth at bedtime. [facility] MULTIVITS-M INERALS/FA/ LYCOPENE (ONE-A-DAY MEN'S MULTIVITAMI N ORAL) 2021-07 0 15:58: 17 Yes Take by mouth. [facility] POTASSIUM-9 9 ORAL 2021-07 0 15:58: 17 Yes 99mg Take 99 mg by mouth daily. [facility] vitamin B-12 100 mcg tablet 2021-07 15:58: 17 Yes 2500ug Take 2,500 mcg by mouth daily. [facility] omega-3s-dh a-epa-fish oil-D3 (FISH OIL-VIT D3) 360 mg-1,200 mg -1,000 unit Cap 2021-07 015 15:58: 17 Yes Take by mouth. [facility] atorvastati n (LIPITOR) 20 mg tablet 2021-07 15:58: 17 Yes 20mg Take 20 mg by mouth at bedtime. [facility] MULTIVITS-M INERALS/FA/ LYCOPENE (ONE-A-DAY MEN'S MULTIVITAMI N ORAL) 2021-07 0 15:58: 17 Yes Take by mouth. [facility] POTASSIUM-9 9 ORAL 2021-07 15:58: 17 Yes 99mg Take 99 mg by mouth daily. [facility] vitamin B-12 100 mcg tablet 2021-0715 15:58: 17 Yes 2500ug Take 2,500 mcg by mouth daily. [facility] omega-3s-dh a-epa-fish oil-D3 (FISH OIL-VIT D3) 360 mg-1,200 mg -1,000 unit Cap 2021-07 015 15:58: 17 Yes Take by mouth. [facility] atorvastati n (LIPITOR) 20 mg tablet 2021-07 015 15:58: 17 Yes 20mg Take 20 mg by mouth at bedtime. [facility] MULTIVITS-M INERALS/FA/ LYCOPENE (ONE-A-DAY MEN'S MULTIVITAMI N ORAL) 2021-07 015 15:58: 17 Yes Take by mouth. [facility] POTASSIUM-9 9 ORAL 2021-07 015 15:58: 17 Yes 99mg Take 99 mg by mouth daily. [facility] vitamin B-12 100 mcg tablet 2021-07 015 15:58: 17 Yes 2500ug Take 2,500 mcg by mouth daily. [facility] omega-3s-dh a-epa-fish oil-D3 (FISH OIL-VIT D3) 360 mg-1,200 mg -1,000 unit Cap 2021-07 015 15:58: 17 Yes Take by mouth. [facility] atorvastati n (LIPITOR) 20 mg tablet 2021-07 015 15:58: 17 Yes 20mg Take 20 mg by mouth at bedtime. [facility] MULTIVITSM INERALS/FA/ LYCOPENE (ONE-A-DAY MEN'S MULTIVITAMI N ORAL) 2021-07 0 15:58: 17 Yes Take by mouth. [facility] POTASSIUM-9 9 ORAL 2021-07 0 15:58: 17 Yes 99mg Take 99 mg by mouth daily. [facility] vitamin B-12 100 mcg tablet 2021-07 015 15:58: 17 Yes 2500ug Take 2,500 mcg by mouth daily. [facility] omega-3s-dh a-epa-fish oil-D3 (FISH OIL-VIT D3) 360 mg-1,200 mg -1,000 unit Cap 2021-07 015 15:58: 17 Yes Take by mouth. [facility] atorvastati n (LIPITOR) 20 mg tablet 2021-07 015 15:58: 17 Yes 20mg Take 20 mg by mouth at bedtime. [facility] MULTIVITS-M INERALS/FA/ LYCOPENE (ONE-A-DAY MEN'S MULTIVITAMI N ORAL) 2021-07 015 15:58: 17 Yes Take by mouth. [facility] POTASSIUM-9 9 ORAL 2021-07 015 15:58: 17 Yes 99mg Take 99 mg by mouth daily. [facility] vitamin B-12 100 mcg tablet 2021-07 015 15:58: 17 Yes 2500ug Take 2,500 mcg by mouth daily. [facility] omega-3s-dh a-epa-fish oil-D3 (FISH OIL-VIT D3) 360 mg-1,200 mg -1,000 unit Cap 2021-07 0-15 15:58: 17 Yes Take by mouth. [facility] atorvastati n (LIPITOR) 20 mg tablet 2021-07 15:58: 17 Yes 20mg Take 20 mg by mouth at bedtime. [facility] MULTIVITS-M INERALS/FA/ LYCOPENE (ONE-A-DAY MEN'S MULTIVITAMI N ORAL) 2021-07 015 15:58: 17 Yes Take by mouth. [facility] POTASSIUM-9 9 ORAL 2021-07 0 15:58: 17 Yes 99mg Take 99 mg by mouth daily. [facility] vitamin B-12 100 mcg tablet 2021-07 015 15:58: 17 Yes 2500ug Take 2,500 mcg by mouth daily. [facility] omega-3s-dh a-epa-fish oil-D3 (FISH OIL-VIT D3) 360 mg-1,200 mg -1,000 unit Cap 2021-07 0-15 15:58: 17 Yes Take by mouth. [facility] MULTIVITS-M INERALS/FA/ LYCOPENE (ONE-A-DAY MEN'S MULTIVITAMI N ORAL) 2021-07 015 15:58: 17 Yes Take by mouth. [facility] POTASSIUM-9 9 ORAL 2021-07 015 15:58: 17 Yes 99mg Take 99 mg by mouth daily. [facility] omega-3s-dh a-epa-fish oil-D3 (FISH OIL-VIT D3) 360 mg-1,200 mg -1,000 unit Cap 2021-07 0-15 15:58: 17 Yes Take by mouth. [facility] MULTIVITS-M INERALS/FA/ LYCOPENE (ONE-A-DAY MEN'S MULTIVITAMI N ORAL) 2021-07 015 15:58: 17 Yes Take by mouth. [facility] POTASSIUM-9 9 ORAL 2021-07 015 15:58: 17 Yes 99mg Take 99 mg by mouth daily. [facility] omega-3s-dh a-epa-fish oil-D3 (FISH OIL-VIT D3) 360 mg-1,200 mg -1,000 unit Cap 2021-07 0-15 15:58: 17 Yes Take by mouth. [facility] MULTIVITS-M INERALS/FA/ LYCOPENE (ONE-A-DAY MEN'S MULTIVITAMI N ORAL) 2021-07 015 15:58: 17 Yes Take by mouth. [facility] POTASSIUM-9 9 ORAL 2021-07 015 15:58: 17 Yes 99mg Take 99 mg by mouth daily. [facility] omega-3s-dh a-epa-fish oil-D3 (FISH OIL-VIT D3) 360 mg-1,200 mg -1,000 unit Cap 2021-07 015 15:58: 17 Yes Take by mouth. [facility] MULTIVITS-M INERALS/FA/ LYCOPENE (ONE-A-DAY MEN'S MULTIVITAMI N ORAL) 2021-07 015 15:58: 17 Yes Take by mouth. [facility] POTASSIUM-9 9 ORAL 2021-07 015 15:58: 17 Yes 99mg Take 99 mg by mouth daily. [facility] omega-3s-dh a-epa-fish oil-D3 (FISH OIL-VIT D3) 360 mg-1,200 mg -1,000 unit Cap 2021-07 0-15 15:58: 17 Yes Take by mouth. [facility] MULTIVITS-M INERALS/FA/ LYCOPENE (ONE-A-DAY MEN'S MULTIVITAMI N ORAL) 2021-07 015 15:58: 17 Yes Take by mouth. [facility] POTASSIUM-9 9 ORAL 2021-07 0-15 15:58: 17 Yes 99mg Take 99 mg by mouth daily. [facility] omega-3s-dh a-epa-fish oil-D3 (FISH OIL-VIT D3) 360 mg-1,200 mg -1,000 unit Cap 2021-0715 15:58: 17 Yes Take by mouth. [facility] MULTIVITS-M INERALS/FA/ LYCOPENE (ONE-A-DAY MEN'S MULTIVITAMI N ORAL) 2021-07 0 15:58: 17 Yes Take by mouth. [facility] POTASSIUM-9 9 ORAL 2021-07 15:58: 17 Yes 99mg Take 99 mg by mouth daily. [facility] omega-3s-dh a-epa-fish oil-D3 (FISH OIL-VIT D3) 360 mg-1,200 mg -1,000 unit Cap 2021-07 15:58: 17 Yes Take by mouth. [facility] MULTIVITS-M INERALS/FA/ LYCOPENE (ONE-A-DAY MEN'S MULTIVITAMI N ORAL) 2021-07 15:58: 17 Yes Take by mouth. [facility] POTASSIUM-9 9 ORAL 2021-07 15:58: 17 Yes 99mg Take 99 mg by mouth daily. [facility] hydrALAZINE (APRESOLINE ) tablet 25 mg 2021-07 15:00: 00 Yes 25mg 25 mg, Oral, TID, First dose (after last modificati on) on Tue05/08/22 at 1000, Until Discontinu ed, Routine [facility] gabapentin (NEURONTIN) capsule 300 mg 2021-07 01:00: 00 Yes 300mg 300 mg, Oral, TID, First dose on Tue05/07/22 at 2000, Until Discontinu ed, Routine [facility] azaTHIOprin e 50 mg tablet 2021-07 00:00: 00 Yes [id number] 100mg Take 2 tablets by mouth in the morning. [facility] azaTHIOprin e 50 mg tablet 2021-07 00:00: 00 Yes [id number] 100mg Take 2 tablets by mouth in the morning. [facility] azaTHIOprin e 50 mg tablet 2021-07 00:00: 00 Yes [id number] 100mg Take 2 tablets by mouth in the morning. [facility] azaTHIOprin e 50 mg tablet 2021- 0-15 00:00: 00 Yes [id number] 100mg Take 2 tablets by mouth in the morning. [facility] azaTHIOprin e 50 mg tablet 2021-1 0-15 00:00: 00 Yes [id number] 100mg Take 2 tablets by mouth in the morning. [facility] azaTHIOprin e 50 mg tablet 2021-1 0-15 00:00: 00 Yes [id number] 100mg Take 2 tablets by mouth in the morning. [facility] azaTHIOprin e 50 mg tablet 2021-07 0-15 00:00: 00 Yes [id number] 100mg Take 2 tablets by mouth in the morning. [facility] azaTHIOprin e 50 mg tablet 2021- 0-15 00:00: 00 Yes [id number] 100mg Take 2 tablets by mouth in the morning. [facility] azaTHIOprin e 50 mg tablet 2021- 0-15 00:00: 00 Yes [id number] 100mg Take 2 tablets by mouth in the morning. [facility] azaTHIOprin e 50 mg tablet 2021- 0-15 00:00: 00 Yes [id number] 100mg Take 2 tablets by mouth in the morning. [facility] azaTHIOprin e 50 mg tablet 2021- 0-15 00:00: 00 Yes [id number] 100mg Take 2 tablets by mouth in the morning. [facility] azaTHIOprin e 50 mg tablet 2021- 0-15 00:00: 00 Yes [id number] 100mg Take 2 tablets by mouth in the morning. [facility] azaTHIOprin e 50 mg tablet 2021- 0-15 00:00: 00 Yes [id number] 100mg Take 2 tablets by mouth in the morning. [facility] azaTHIOprin e 50 mg tablet 2021-1 0-15 00:00: 00 Yes [id number] 100mg Take 2 tablets by mouth in the morning. [facility] gabapentin 300 mg capsule 2021-07 0-15 00:00: 00 -14 04:59 :00 No [id number] 300mg Take 1 capsule by mouth in the morning and 1 capsule at noon and 1 capsule in the evening. Do all this for 180 days. [facility] gabapentin 300 mg capsule 2021- 0-15 00:00: 00 11-05 04:59 :00 No [id number] 300mg Take 1 capsule by mouth in the morning and 1 capsule at noon and 1 capsule in the evening. Do all this for 180 days. [facility] gabapentin 300 mg capsule 2021-07 0-15 00:00: 00 11-05 04:59 :00 No [id number] 300mg Take 1 capsule by mouth in the morning and 1 capsule at noon and 1 capsule in the evening. Do all this for 180 days. [facility] gabapentin 300 mg capsule 2021-07 0-15 00:00: 00 11-05 04:59 :00 No [id number] 300mg Take 1 capsule by mouth in the morning and 1 capsule at noon and 1 capsule in the evening. Do all this for 180 days. [facility] gabapentin 300 mg capsule 2021- 0-15 00:00: 00 11-05 04:59 :00 No [id number] 300mg Take 1 capsule by mouth in the morning and 1 capsule at noon and 1 capsule in the evening. Do all this for 180 days. [facility] gabapentin 300 mg capsule 2021-07 0-15 00:00: 00 11-05 04:59 :00 No [id number] 300mg Take 1 capsule by mouth in the morning and 1 capsule at noon and 1 capsule in the evening. Do all this for 180 days. [facility] gabapentin 300 mg capsule 2021- 0-15 00:00: 00 11-05 04:59 :00 No [id number] 300mg Take 1 capsule by mouth in the morning and 1 capsule at noon and 1 capsule in the evening. Do all this for 180 days. [facility] gabapentin 300 mg capsule 2021- 0-15 00:00: 00 11-05 04:59 :00 No [id number] 300mg Take 1 capsule by mouth in the morning and 1 capsule at noon and 1 capsule in the evening. Do all this for 180 days. [facility] gabapentin 300 mg capsule 2021-07 0-15 00:00: 00 11-05 04:59 :00 No [id number] 300mg Take 1 capsule by mouth in the morning and 1 capsule at noon and 1 capsule in the evening. Do all this for 180 days. [facility] gabapentin 300 mg capsule 2021-07 0-15 00:00: 00 11-05 04:59 :00 No [id number] 300mg Take 1 capsule by mouth in the morning and 1 capsule at noon and 1 capsule in the evening. Do all this for 180 days. [facility] gabapentin 300 mg capsule 2021-07 0-15 00:00: 00 11-05 04:59 :00 No [id number] 300mg Take 1 capsule by mouth in the morning and 1 capsule at noon and 1 capsule in the evening. Do all this for 180 days. [facility] gabapentin 300 mg capsule 2021-07 0-15 00:00: 00 11-05 04:59 :00 No [id number] 300mg Take 1 capsule by mouth in the morning and 1 capsule at noon and 1 capsule in the evening. Do all this for 180 days. [facility] gabapentin 300 mg capsule 2021-07 0-15 00:00: 00 11-05 04:59 :00 No [id number] 300mg Take 1 capsule by mouth in the morning and 1 capsule at noon and 1 capsule in the evening. Do all this for 180 days. [facility] gabapentin 300 mg capsule 2021-07 0-15 00:00: 00 11-05 04:59 :00 No [id number] 300mg Take 1 capsule by mouth in the morning and 1 capsule at noon and 1 capsule in the evening. Do all this for 180 days. [facility] azaTHIOprin e 50 mg tablet 2021-07 0-15 00:00: 00 08-12 00:00 :00 No [id number] 100mg Take 2 tablets by mouth in the morning. [facility] gabapentin 300 mg capsule 2021-07 0-15 00:00: 00 08-12 00:00 :00 No [id number] 300mg Take 1 capsule by mouth in the morning and 1 capsule at noon and 1 capsule in the evening. Do all this for 180 days. [facility] azaTHIOprin e 50 mg tablet 2021-07 0-15 00:00: 00 08-12 00:00 :00 No [id number] 100mg Take 2 tablets by mouth in the morning. [facility] gabapentin 300 mg capsule 2021-07 0-15 00:00: 00 08-12 00:00 :00 No [id number] 300mg Take 1 capsule by mouth in the morning and 1 capsule at noon and 1 capsule in the evening. Do all this for 180 days. [facility] azaTHIOprin e 50 mg tablet 2021-07 0- 00:00: 00 08-12 00:00 :00 No [id number] 100mg Take 2 tablets by mouth in the morning. [facility] gabapentin 300 mg capsule 2021-07 0- 00:00: 00 08-12 00:00 :00 No [id number] 300mg Take 1 capsule by mouth in the morning and 1 capsule at noon and 1 capsule in the evening. Do all this for 180 days. [facility] azaTHIOprin e 50 mg tablet 2021-07 0-15 00:00: 00 08-12 00:00 :00 No [id number] 100mg Take 2 tablets by mouth in the morning. [facility] gabapentin 300 mg capsule 2021-07 0-15 00:00: 00 08-12 00:00 :00 No [id number] 300mg Take 1 capsule by mouth in the morning and 1 capsule at noon and 1 capsule in the evening. Do all this for 180 days. [facility] apixaban (ELIQUIS) 5 mg tablet 2021-07 0-15 00:00: 00 08-07 05:59 :00 No [id number] 5mg Take 1 tablet by mouth in the morning and 1 tablet in the evening. Do all this for 90 days. Indication s: history of deep vein thrombosis [facility] hydrALAZINE 25 mg tablet 2021-07 0-15 00:00: 00 08-07 05:59 :00 No [id number] 25mg Take 1 tablet by mouth in the morning and 1 tablet at noon and 1 tablet in the evening. Do all this for 90 days. [facility] apixaban (ELIQUIS) 5 mg tablet 2021-07 0-15 00:00: 00 08-07 05:59 :00 No [id number] 5mg Take 1 tablet by mouth in the morning and 1 tablet in the evening. Do all this for 90 days. Indication s: history of deep vein thrombosis [facility] hydrALAZINE 25 mg tablet 2021-07 0-15 00:00: 00 08-07 05:59 :00 No [id number] 25mg Take 1 tablet by mouth in the morning and 1 tablet at noon and 1 tablet in the evening. Do all this for 90 days. [facility] apixaban (ELIQUIS) 5 mg tablet 2021-07 0-15 00:00: 00 08-07 05:59 :00 No [id number] 5mg Take 1 tablet by mouth in the morning and 1 tablet in the evening. Do all this for 90 days. Indication s: history of deep vein thrombosis [facility] hydrALAZINE 25 mg tablet 2021-07 0-15 00:00: 00 08-07 05:59 :00 No [id number] 25mg Take 1 tablet by mouth in the morning and 1 tablet at noon and 1 tablet in the evening. Do all this for 90 days. [facility] apixaban (ELIQUIS) 5 mg tablet 2021-07 0-15 00:00: 00 08-07 05:59 :00 No [id number] 5mg Take 1 tablet by mouth in the morning and 1 tablet in the evening. Do all this for 90 days. Indication s: history of deep vein thrombosis [facility] hydrALAZINE 25 mg tablet 2021-07 0-15 00:00: 00 08-07 05:59 :00 No [id number] 25mg Take 1 tablet by mouth in the morning and 1 tablet at noon and 1 tablet in the evening. Do all this for 90 days. [facility] apixaban (ELIQUIS) 5 mg tablet 2021- 0-15 00:00: 00 08-07 05:59 :00 No [id number] 5mg Take 1 tablet by mouth in the morning and 1 tablet in the evening. Do all this for 90 days. Indication s: history of deep vein thrombosis [facility] hydrALAZINE 25 mg tablet 2021-07 0-15 00:00: 00 08-07 05:59 :00 No [id number] 25mg Take 1 tablet by mouth in the morning and 1 tablet at noon and 1 tablet in the evening. Do all this for 90 days. [facility] apixaban (ELIQUIS) 5 mg tablet 2021-07 0-15 00:00: 00 08-07 05:59 :00 No [id number] 5mg Take 1 tablet by mouth in the morning and 1 tablet in the evening. Do all this for 90 days. Indication s: history of deep vein thrombosis [facility] hydrALAZINE 25 mg tablet 2021-07 0-15 00:00: 00 08-07 05:59 :00 No [id number] 25mg Take 1 tablet by mouth in the morning and 1 tablet at noon and 1 tablet in the evening. Do all this for 90 days. [facility] apixaban (ELIQUIS) 5 mg tablet 2021-07 0-15 00:00: 00 08-07 05:59 :00 No [id number] 5mg Take 1 tablet by mouth in the morning and 1 tablet in the evening. Do all this for 90 days. Indication s: history of deep vein thrombosis [facility] hydrALAZINE 25 mg tablet 2021-07 0-15 00:00: 00 08-07 05:59 :00 No [id number] 25mg Take 1 tablet by mouth in the morning and 1 tablet at noon and 1 tablet in the evening. Do all this for 90 days. [facility] apixaban (ELIQUIS) 5 mg tablet 2021-07 0-15 00:00: 00 08-07 05:59 :00 No [id number] 5mg Take 1 tablet by mouth in the morning and 1 tablet in the evening. Do all this for 90 days. Indication s: history of deep vein thrombosis [facility] hydrALAZINE 25 mg tablet 2021-07 0-15 00:00: 00 08-07 05:59 :00 No [id number] 25mg Take 1 tablet by mouth in the morning and 1 tablet at noon and 1 tablet in the evening. Do all this for 90 days. [facility] apixaban (ELIQUIS) 5 mg tablet 2021-07 0-15 00:00: 00 08-07 05:59 :00 No [id number] 5mg Take 1 tablet by mouth in the morning and 1 tablet in the evening. Do all this for 90 days. Indication s: history of deep vein thrombosis [facility] hydrALAZINE 25 mg tablet 2021-07 0-15 00:00: 00 08-07 05:59 :00 No [id number] 25mg Take 1 tablet by mouth in the morning and 1 tablet at noon and 1 tablet in the evening. Do all this for 90 days. [facility] apixaban (ELIQUIS) 5 mg tablet 2021-07 0-15 00:00: 00 08-07 05:59 :00 No [id number] 5mg Take 1 tablet by mouth in the morning and 1 tablet in the evening. Do all this for 90 days. Indication s: history of deep vein thrombosis [facility] hydrALAZINE 25 mg tablet 2021-07 0-15 00:00: 00 08-07 05:59 :00 No [id number] 25mg Take 1 tablet by mouth in the morning and 1 tablet at noon and 1 tablet in the evening. Do all this for 90 days. [facility] apixaban (ELIQUIS) 5 mg tablet 2021-07 0-15 00:00: 00 08-07 05:59 :00 No [id number] 5mg Take 1 tablet by mouth in the morning and 1 tablet in the evening. Do all this for 90 days. Indication s: history of deep vein thrombosis [facility] hydrALAZINE 25 mg tablet 2021-07 0-15 00:00: 00 08-07 05:59 :00 No [id number] 25mg Take 1 tablet by mouth in the morning and 1 tablet at noon and 1 tablet in the evening. Do all this for 90 days. [facility] apixaban (ELIQUIS) 5 mg tablet 2021- 0-15 00:00: 00 08-07 05:59 :00 No [id number] 5mg Take 1 tablet by mouth in the morning and 1 tablet in the evening. Do all this for 90 days. Indication s: history of deep vein thrombosis [facility] hydrALAZINE 25 mg tablet 2021- 0-15 00:00: 00 08-07 05:59 :00 No [id number] 25mg Take 1 tablet by mouth in the morning and 1 tablet at noon and 1 tablet in the evening. Do all this for 90 days. [facility] apixaban (ELIQUIS) 5 mg tablet 2021-07 0-15 00:00: 00 08-07 05:59 :00 No [id number] 5mg Take 1 tablet by mouth in the morning and 1 tablet in the evening. Do all this for 90 days. Indication s: history of deep vein thrombosis [facility] hydrALAZINE 25 mg tablet 2021-07 0-15 00:00: 00 08-07 05:59 :00 No [id number] 25mg Take 1 tablet by mouth in the morning and 1 tablet at noon and 1 tablet in the evening. Do all this for 90 days. [facility] apixaban (ELIQUIS) 5 mg tablet 2021-07 0-15 00:00: 00 08-07 05:59 :00 No [id number] 5mg Take 1 tablet by mouth in the morning and 1 tablet in the evening. Do all this for 90 days. Indication s: history of deep vein thrombosis [facility] hydrALAZINE 25 mg tablet 2021- 0-15 00:00: 00 08-07 05:59 :00 No [id number] 25mg Take 1 tablet by mouth in the morning and 1 tablet at noon and 1 tablet in the evening. Do all this for 90 days. [facility] apixaban (ELIQUIS) 5 mg tablet 2021- 0-15 00:00: 00 08-07 05:59 :00 No [id number] 5mg Take 1 tablet by mouth in the morning and 1 tablet in the evening. Do all this for 90 days. Indication s: history of deep vein thrombosis [facility] hydrALAZINE 25 mg tablet 2021-07 0-15 00:00: 00 08-07 05:59 :00 No [id number] 25mg Take 1 tablet by mouth in the morning and 1 tablet at noon and 1 tablet in the evening. Do all this for 90 days. [facility] apixaban (ELIQUIS) 5 mg tablet 2021-07 0-15 00:00: 00 08-07 05:59 :00 No [id number] 5mg Take 1 tablet by mouth in the morning and 1 tablet in the evening. Do all this for 90 days. Indication s: history of deep vein thrombosis [facility] hydrALAZINE 25 mg tablet 2021-07 0-15 00:00: 00 08-07 05:59 :00 No [id number] 25mg Take 1 tablet by mouth in the morning and 1 tablet at noon and 1 tablet in the evening. Do all this for 90 days. [facility] apixaban (ELIQUIS) 5 mg tablet 2021-07 0-15 00:00: 00 08-07 05:59 :00 No [id number] 5mg Take 1 tablet by mouth in the morning and 1 tablet in the evening. Do all this for 90 days. Indication s: history of deep vein thrombosis [facility] hydrALAZINE 25 mg tablet 2021-07 0-15 00:00: 00 08-07 05:59 :00 No [id number] 25mg Take 1 tablet by mouth in the morning and 1 tablet at noon and 1 tablet in the evening. Do all this for 90 days. [facility] apixaban (ELIQUIS) 5 mg tablet 2021-07 0-15 00:00: 00 05-16 04:59 :00 No [id number] 10mg Take 2 tablets by mouth in the morning and 2 tablets in the evening. Do all this for 7 days. Indication s: history of deep vein thrombosis [facility] aspirin 81 mg chewable tablet 2021-07 0-15 00:00: 00 05-08 00:00 :00 No [id number] 81mg Take 1 tablet by mouth in the morning. [facility] apixaban (ELIQUIS) 5 mg tablet 2021-07 00:00: 00 05-08 00:00 :00 No [id number] 10mg Take 2 tablets by mouth in the morning and 2 tablets in the evening. Do all this for 7 days. Indication s: history of deep vein thrombosis [facility] apixaban (ELIQUIS) 5 mg tablet 2021-07 00:00: 00 05-08 00:00 :00 No [id number] 5mg Take 1 tablet by mouth in the morning and 1 tablet in the evening. Do all this for 90 days. Indication s: history of deep vein thrombosis [facility] aspirin 81 mg chewable tablet 2021-07 00:00: 00 05-07 00:00 :00 No [id number] 81mg Take 1 tablet by mouth in the morning. [facility] azaTHIOprin e 100 mg tablet 2021-07 00:00: 00 05-07 00:00 :00 No [id number] 100mg Take 1 tablet by mouth in the morning. [facility] gadobenate dimeglumine (MULTIHANCE -15 mL) injection 19.78 mL 2021-07 03:15: 00 05-07 03:15 :00 No [id number] .2mL/kg 19.78 mL (0.2 mL/kg ?98.9 kg), Intravenou s, ONCE, 1 dose, On Tue05/06/22 at 2215, Routine [facility] lacosamide 50 mg tablet 2021-07 00:00: 00 Yes [id number] 50mg Take 1 tablet by mouth in the morning and 1 tablet in the evening. [facility] lacosamide 50 mg tablet 2021-07 00:00: 00 Yes [id number] 50mg Take 1 tablet by mouth in the morning and 1 tablet in the evening. [facility] lacosamide 50 mg tablet 2021-07 00:00: 00 Yes [id number] 50mg Take 1 tablet by mouth in the morning and 1 tablet in the evening. [facility] lacosamide 50 mg tablet 2021- 0-14 00:00: 00 Yes [id number] 50mg Take 1 tablet by mouth in the morning and 1 tablet in the evening. [facility] lacosamide 50 mg tablet 2021- 0-14 00:00: 00 Yes [id number] 50mg Take 1 tablet by mouth in the morning and 1 tablet in the evening. [facility] lacosamide 50 mg tablet 2021- 0-14 00:00: 00 Yes [id number] 50mg Take 1 tablet by mouth in the morning and 1 tablet in the evening. [facility] predniSONE 5 mg tablet 2021- 0-14 00:00: 00 03-25 04:59 :00 No [id number] Take 4 tablets by mouth daily for 7 days, THEN 3.5 tablets daily for 7 days, THEN 3 tablets daily for 7 days, THEN 2 tablets daily for 300 days. [facility] predniSONE 5 mg tablet 2021- 0-14 00:00: 00 03-25 04:59 :00 No [id number] Take 4 tablets by mouth daily for 7 days, THEN 3.5 tablets daily for 7 days, THEN 3 tablets daily for 7 days, THEN 2 tablets daily for 300 days. [facility] predniSONE 5 mg tablet 2021- 0-14 00:00: 00 03-25 04:59 :00 No [id number] Take 4 tablets by mouth daily for 7 days, THEN 3.5 tablets daily for 7 days, THEN 3 tablets daily for 7 days, THEN 2 tablets daily for 300 days. [facility] predniSONE 5 mg tablet 2021- 0-14 00:00: 00 03-25 04:59 :00 No [id number] Take 4 tablets by mouth daily for 7 days, THEN 3.5 tablets daily for 7 days, THEN 3 tablets daily for 7 days, THEN 2 tablets daily for 300 days. [facility] predniSONE 5 mg tablet 2021- 0-14 00:00: 00 03-25 04:59 :00 No [id number] Take 4 tablets by mouth daily for 7 days, THEN 3.5 tablets daily for 7 days, THEN 3 tablets daily for 7 days, THEN 2 tablets daily for 300 days. [facility] predniSONE 5 mg tablet 2-1 0-14 00:00: 00 03-25 04:59 :00 No [id number] Take 4 tablets by mouth daily for 7 days, THEN 3.5 tablets daily for 7 days, THEN 3 tablets daily for 7 days, THEN 2 tablets daily for 300 days. [facility] predniSONE 5 mg tablet 2-1 0-14 00:00: 00 03-25 04:59 :00 No [id number] Take 4 tablets by mouth daily for 7 days, THEN 3.5 tablets daily for 7 days, THEN 3 tablets daily for 7 days, THEN 2 tablets daily for 300 days. [facility] predniSONE 5 mg tablet 2021-1 0-14 00:00: 00 03-25 04:59 :00 No [id number] Take 4 tablets by mouth daily for 7 days, THEN 3.5 tablets daily for 7 days, THEN 3 tablets daily for 7 days, THEN 2 tablets daily for 300 days. [facility] predniSONE 5 mg tablet 2021-1 0-14 00:00: 00 03-25 04:59 :00 No [id number] Take 4 tablets by mouth daily for 7 days, THEN 3.5 tablets daily for 7 days, THEN 3 tablets daily for 7 days, THEN 2 tablets daily for 300 days. [facility] predniSONE 5 mg tablet 2-1 0-14 00:00: 00 03-25 04:59 :00 No [id number] Take 4 tablets by mouth daily for 7 days, THEN 3.5 tablets daily for 7 days, THEN 3 tablets daily for 7 days, THEN 2 tablets daily for 300 days. [facility] predniSONE 5 mg tablet 2-1 0-14 00:00: 00 03-25 04:59 :00 No [id number] Take 4 tablets by mouth daily for 7 days, THEN 3.5 tablets daily for 7 days, THEN 3 tablets daily for 7 days, THEN 2 tablets daily for 300 days. [facility] predniSONE 5 mg tablet 2-1 0-14 00:00: 00 03-25 04:59 :00 No [id number] Take 4 tablets by mouth daily for 7 days, THEN 3.5 tablets daily for 7 days, THEN 3 tablets daily for 7 days, THEN 2 tablets daily for 300 days. [facility] predniSONE 5 mg tablet 2-1 0-14 00:00: 00 03-25 04:59 :00 No [id number] Take 4 tablets by mouth daily for 7 days, THEN 3.5 tablets daily for 7 days, THEN 3 tablets daily for 7 days, THEN 2 tablets daily for 300 days. [facility] predniSONE 5 mg tablet 2-1 0-14 00:00: 00 03-25 04:59 :00 No [id number] Take 4 tablets by mouth daily for 7 days, THEN 3.5 tablets daily for 7 days, THEN 3 tablets daily for 7 days, THEN 2 tablets daily for 300 days. [facility] predniSONE 5 mg tablet 2-1 0-14 00:00: 00 08-12 00:00 :00 No [id number] Take 4 tablets by mouth daily for 7 days, THEN 3.5 tablets daily for 7 days, THEN 3 tablets daily for 7 days, THEN 2 tablets daily for 300 days. [facility] predniSONE 5 mg tablet 2-1 0-14 00:00: 00 08-12 00:00 :00 No [id number] Take 4 tablets by mouth daily for 7 days, THEN 3.5 tablets daily for 7 days, THEN 3 tablets daily for 7 days, THEN 2 tablets daily for 300 days. [facility] predniSONE 5 mg tablet 2-1 0-14 00:00: 00 08-12 00:00 :00 No [id number] Take 4 tablets by mouth daily for 7 days, THEN 3.5 tablets daily for 7 days, THEN 3 tablets daily for 7 days, THEN 2 tablets daily for 300 days. [facility] predniSONE 5 mg tablet 2-1 0-14 00:00: 00 08-12 00:00 :00 No [id number] Take 4 tablets by mouth daily for 7 days, THEN 3.5 tablets daily for 7 days, THEN 3 tablets daily for 7 days, THEN 2 tablets daily for 300 days. [facility] lacosamide 50 mg tablet 2021-07 0-14 00:00: 00 06-03 00:00 :00 No [id number] 50mg Take 1 tablet by mouth in the morning and 1 tablet in the evening. [facility] lacosamide 50 mg tablet 2021-07 0-14 00:00: 00 06-03 00:00 :00 No [id number] 50mg Take 1 tablet by mouth in the morning and 1 tablet in the evening. [facility] lacosamide 50 mg tablet 2021-07 0-14 00:00: 00 06-03 00:00 :00 No [id number] 50mg Take 1 tablet by mouth in the morning and 1 tablet in the evening. [facility] lacosamide 50 mg tablet 2021-07 0-14 00:00: 00 06-03 00:00 :00 No [id number] 50mg Take 1 tablet by mouth in the morning and 1 tablet in the evening. [facility] lacosamide 50 mg tablet 2021-07 0-14 00:00: 00 06-03 00:00 :00 No [id number] 50mg Take 1 tablet by mouth in the morning and 1 tablet in the evening. [facility] lacosamide 50 mg tablet 2021-07 0-14 00:00: 00 06-03 00:00 :00 No [id number] 50mg Take 1 tablet by mouth in the morning and 1 tablet in the evening. [facility] predniSONE 5 mg tablet 2021-07 0-14 00:00: 00 05-07 00:00 :00 No [id number] Take 4 tablets by mouth daily for 7 days, THEN 2 tablets daily for 300 days. [facility] Lacosamide 10 mg/mL oral solution 2021-07 0-14 00:00: 00 05-07 00:00 :00 No [id number] 50mg Take 5 mL by mouth in the morning and 5 mL in the evening. [facility] lacosamide 50 mg tablet 2021-07 00:00: 00 05-07 00:00 :00 No [id number] 50mg Take 1 tablet by mouth in the morning and 1 tablet in the evening. [facility] aspirin chewable tablet 81 mg 2021-07 19:45: 00 Yes 81mg 81 mg, Oral, DAILY, First dose on Tue05/06/22 at 1445, Until Discontinu ed, Routine [facility] azaTHIOprin e (IMURAN) tablet 100 mg 2021-07 14:00: 00 Yes 100mg 100 mg, Oral, DAILY, First dose (after last modificati on) on Tue05/06/22 at 0900, Until Discontinu ed, Routine [facility] pantoprazol e (PROTONIX) EC tablet 40 mg 2021-07 14:00: 00 Yes 40mg 40 mg, Oral, DAILY, First dose on Tue05/06/22 at 0900, Until Discontinu ed, Routine [facility] lisinopriL (PRINIVIL,Z ESTRIL) tablet 40 mg 2021-07 14:00: 00 Yes 40mg 40 mg, Oral, DAILY, First dose on Tue05/06/22 at 0900, Until Discontinu ed [facility] ferrous sulfate tablet 325 mg 2021-07 14:00: 00 Yes 325mg 325 mg, Oral, Q OTHERDAY, First dose on Tue05/06/22 at 0900, Until Discontinu ed, Routine [facility] amLODIPine (NORVASC) tablet 10 mg 2021-07 14:00: 00 Yes 10mg 10 mg, Oral, DAILY, First dose on Tue05/06/22 at 0900, Until Discontinu ed, Routine [facility] acetaminoph en (TYLENOL) tablet 500 mg 2021-07 04:47: 18 Yes 500mg 500 mg, Oral, Q6HPRN, Starting on Tue05/05/22 at 2347, Until Discontinu ed, Routine, Pain (scale 1-3), Temp > 38.5 C, Pain (scale 4-6) [facility] atorvastati n (LIPITOR) tablet 20 mg 2021-07 02:00: 00 Yes 20mg 20 mg, Oral, QHS, First dose on Tue05/05/22 at 2100, Until Discontinu ed, Routine [facility] risperiDONE (RISPERDAL) tablet 1 mg 2021-0713 01:00: 00 Yes 1mg 1 mg, Oral, BID, First dose on Tue05/05/22 at 2000, Until Discontinu ed, Routine [facility] divalproex (DEPAKOTE) EC tablet 1,500 mg 2021-07 01:00: 00 Yes 1500mg 1,500 mg, Oral, Q12H, First dose on Tue05/05/22 at 2000, Until Discontinu ed, Routine [facility] heparin (porcine) injection 5,000 Units 2021-07 01:00: 00 Yes 5000U 5,000 Units, Subcutaneo us, Q12H, First dose on Tue05/05/22 at 2000, Until Discontinu ed, Routine [facility] Sliding Scale Insulin - Lispro (HumaLOG) + Fsbg Testing 2021-07 22:00: 00 Yes Subcutaneo us, TID MEALS+HS, First dose on Tue05/05/22 at 1700, Until Discontinu ed, Routine [facility] carvediloL (COREG) tablet 25 mg 2021-07 22:00: 00 Yes 25mg 25 mg, Oral, BID MEALS, First dose on Tue05/05/22 at 1700, Until Discontinu ed, Routine [facility] lacosamide (VIMPAT) 50 mg in NaCl 0.9% (NS) 50 mL piggyback 2021-07 21:45: 00 05-08 00:27 :03 No 50mg 50 mg, IV Piggyback, Q12H, First dose on Tue05/05/22 at 1645, Until Discontinu ed, Administer over 30 Minutes, 50 mL
Facu lty member approving Restricted medication : ARMEN COX RA [facility] predniSONE (DELTASONE) tablet 20 mg 2021-07 19:00: 00 Yes 20mg 20 mg, Oral, DAILY, First dose on Tue05/05/22 at 1400, Until Discontinu ed, Routine [facility] glucagon (GLUCAGEN DIAGNOSTIC KIT) injection 1 mg 2021-07 18:48: 01 Yes 1mg 1 mg, Intramuscu lar, PRN, Starting on Tue05/05/22 at 1348, Until Discontinu ed, HENRY, Blood Glucose < or = 70 mg/dL and patient is unable to swallow or has mental changes. [facility] dextrose 50 % in water (D50W) injection 25 mL 2021-07 18:48: 01 Yes 25mL 25 mL, Slow IV Push, PRN, Starting on Tue05/05/22 at 1348, Until Discontinu ed, HENRY, Blood Glucose < or = 70 mg/dL and patient is unable to swallow or has mental status changes. [facility] hydrOXYzine (ATARAX) 10 mg/5 mL solution 10 mg 2021-07 18:47: 35 Yes 10mg 10 mg, Oral, Q6HPRN, Starting on Tue05/05/22 at 1347, Until Discontinu ed, Routine, Anxiety [facility] NaCl 0.9% (NS) IV infusion 1,000 mL 2021-07 18:30: 00 Yes 1000mL at 50 mL/hr, IV Infusion, CONTINUOUS , Starting on Tue05/05/22 at 1330, Until Discontinu ed, Routine
To keep vein open.
[facility] iopamidol (ISOVUE 370-500 mL) injection 100 mL 2021-07 16:00: 00 05-05 16:00 :00 No [id number] 100mL 100 mL, Intravenou s, ONCE, 1 dose, On Tue05/05/22 at 1100, Routine [facility] iopamidol (ISOVUE 370-500 mL) injection 100 mL 2021-07 15:45: 00 05-05 15:45 :00 No [id number] 100mL 100 mL, Intravenou s, ONCE, 1 dose, On Tue05/05/22 at 1045, Routine [facility] NaCl 0.9% (NS) injection 5 mL 2021-07 012 14:20: 20 Yes 5mL 5 mL, Slow IV Push, PRN - SEE INSTRUCTIO NS, Starting on Tue05/05/22 at 0920, Until Discontinu ed, 10 mL [facility] predniSONE (DELTASONE) tablet 30 mg 04-11 14:00: 00 04-16 13:59 :00 No 30mg 30 mg, Oral, DAILY, 5 doses, First dose on 04/11/22 at 0900, Last dose on Karely 04/15/22 at 0900, Routine [facility] omega-3s-dh a-epa-fish oil-D3 (FISH OIL-VIT D3) 360 mg-1,200 mg -1,000 unit Cap 04-09 23:12: 13 Yes Take by mouth. [facility] atorvastati n (LIPITOR) 20 mg tablet 04-09 23:12: 13 Yes 20mg Take 20 mg by mouth at bedtime. [facility] MULTIVITS-M INERALS/FA/ LYCOPENE (ONE-A-DAY MEN'S MULTIVITAMI N ORAL) 04-09 23:12: 13 Yes Take by mouth. [facility] ibuprofen (ADVIL) 200 mg tablet 04-09 23:12: 13 Yes 200mg Take 200 mg by mouth 2 (two) times daily with meals. [facility] POTASSIUM-9 9 ORAL 04-09 23:12: 13 Yes 99mg Take 99 mg by mouth daily. [facility] vitamin B-12 100 mcg tablet 04-09 23:12: 13 Yes 2500ug Take 2,500 mcg by mouth daily. [facility] omega-3s-dh a-epa-fish oil-D3 (FISH OIL-VIT D3) 360 mg-1,200 mg -1,000 unit Cap 04-09 23:12: 13 Yes Take by mouth. [facility] atorvastati n (LIPITOR) 20 mg tablet 04-09 23:12: 13 Yes 20mg Take 20 mg by mouth at bedtime. [facility] MULTIVITS-M INERALS/FA/ LYCOPENE (ONE-A-DAY MEN'S MULTIVITAMI N ORAL) 04-09 23:12: 13 Yes Take by mouth. [facility] ibuprofen (ADVIL) 200 mg tablet 04-09 23:12: 13 Yes 200mg Take 200 mg by mouth 2 (two) times daily with meals. [facility] POTASSIUM-9 9 ORAL 04-09 23:12: 13 Yes 99mg Take 99 mg by mouth daily. [facility] vitamin B-12 100 mcg tablet 04-09 23:12: 13 Yes 2500ug Take 2,500 mcg by mouth daily. [facility] omega-3s-dh a-epa-fish oil-D3 (FISH OIL-VIT D3) 360 mg-1,200 mg -1,000 unit Cap 04-09 23:12: 13 Yes Take by mouth. [facility] atorvastati n (LIPITOR) 20 mg tablet 04-09 23:12: 13 Yes 20mg Take 20 mg by mouth at bedtime. [facility] MULTIVITS-M INERALS/FA/ LYCOPENE (ONE-A-DAY MEN'S MULTIVITAMI N ORAL) 04-09 23:12: 13 Yes Take by mouth. [facility] ibuprofen (ADVIL) 200 mg tablet 04-09 23:12: 13 Yes 200mg Take 200 mg by mouth 2 (two) times daily with meals. [facility] POTASSIUM-9 9 ORAL 04-09 23:12: 13 Yes 99mg Take 99 mg by mouth daily. [facility] vitamin B-12 100 mcg tablet 04-09 23:12: 13 Yes 2500ug Take 2,500 mcg by mouth daily. [facility] omega-3s-dh a-epa-fish oil-D3 (FISH OIL-VIT D3) 360 mg-1,200 mg -1,000 unit Cap 04-09 23:12: 13 Yes Take by mouth. [facility] atorvastati n (LIPITOR) 20 mg tablet 04-09 23:12: 13 Yes 20mg Take 20 mg by mouth at bedtime. [facility] MULTIVITS-M INERALS/FA/ LYCOPENE (ONE-A-DAY MEN'S MULTIVITAMI N ORAL) 04-09 23:12: 13 Yes Take by mouth. [facility] ibuprofen (ADVIL) 200 mg tablet 04-09 23:12: 13 Yes 200mg Take 200 mg by mouth 2 (two) times daily with meals. [facility] POTASSIUM-9 9 ORAL 04-09 23:12: 13 Yes 99mg Take 99 mg by mouth daily. [facility] vitamin B-12 100 mcg tablet 04-09 23:12: 13 Yes 2500ug Take 2,500 mcg by mouth daily. [facility] carvedilol (COREG) 25 mg tablet 04-09 16:13: 37 04-09 00:00 :00 No 25mg Take 25 mg by mouth 2 (two) times daily with meals. [facility] lisinopriL 40 mg tablet 04-09 16:13: 37 04-09 00:00 :00 No 40mg Take 40 mg by mouth in the morning. [facility] carvedilol (COREG) 25 mg tablet 04-09 16:13: 37 04-09 00:00 :00 No 25mg Take 25 mg by mouth 2 (two) times daily with meals. [facility] lisinopriL 40 mg tablet 04-09 16:13: 37 04-09 00:00 :00 No 40mg Take 40 mg by mouth in the morning. [facility] carvedilol (COREG) 25 mg tablet 04-09 16:13: 37 04-09 00:00 :00 No 25mg Take 25 mg by mouth 2 (two) times daily with meals. [facility] lisinopriL 40 mg tablet 2022-0 9-16 16:13: 37 04-09 00:00 :00 No 40mg Take 40 mg by mouth in the morning. [facility] carvedilol (COREG) 25 mg tablet 16 16:13: 37 04-09 00:00 :00 No 25mg Take 25 mg by mouth 2 (two) times daily with meals. [facility] lisinopriL 40 mg tablet 16 16:13: 37 04-09 00:00 :00 No 40mg Take 40 mg by mouth in the morning. [facility] lisinopriL 40 mg tablet 0 16 00:00: 00 Yes [id number] 40mg Take 1 tablet by mouth in the morning. [facility] carvediloL (COREG) 25 mg tablet 2021-0 16 00:00: 00 Yes [id number] 25mg Take 1 tablet by mouth in the morning and 1 tablet in the evening. Take with meals. [facility] amLODIPine 10 mg tablet 0 16 00:00: 00 Yes [id number] 10mg Take 1 tablet by mouth in the morning. [facility] lisinopriL 40 mg tablet 0 16 00:00: 00 Yes [id number] 40mg Take 1 tablet by mouth in the morning. [facility] carvediloL (COREG) 25 mg tablet 2021-0 16 00:00: 00 Yes [id number] 25mg Take 1 tablet by mouth in the morning and 1 tablet in the evening. Take with meals. [facility] amLODIPine 10 mg tablet 0 16 00:00: 00 Yes [id number] 10mg Take 1 tablet by mouth in the morning. [facility] lisinopriL 40 mg tablet 2021-0 16 00:00: 00 Yes [id number] 40mg Take 1 tablet by mouth in the morning. [facility] carvediloL (COREG) 25 mg tablet 2021-0 16 00:00: 00 Yes [id number] 25mg Take 1 tablet by mouth in the morning and 1 tablet in the evening. Take with meals. [facility] amLODIPine 10 mg tablet 2021-0 -16 00:00: 00 Yes [id number] 10mg Take 1 tablet by mouth in the morning. [facility] lisinopriL 40 mg tablet 2021-0 -16 00:00: 00 Yes [id number] 40mg Take 1 tablet by mouth in the morning. [facility] carvediloL (COREG) 25 mg tablet 2-0 -16 00:00: 00 Yes [id number] 25mg Take 1 tablet by mouth in the morning and 1 tablet in the evening. Take with meals. [facility] amLODIPine 10 mg tablet 2021-0 -16 00:00: 00 Yes [id number] 10mg Take 1 tablet by mouth in the morning. [facility] lisinopriL 40 mg tablet 2021-0 -16 00:00: 00 Yes [id number] 40mg Take 1 tablet by mouth in the morning. [facility] carvediloL (COREG) 25 mg tablet 2021-0 -16 00:00: 00 Yes [id number] 25mg Take 1 tablet by mouth in the morning and 1 tablet in the evening. Take with meals. [facility] amLODIPine 10 mg tablet 2021-0 -16 00:00: 00 Yes [id number] 10mg Take 1 tablet by mouth in the morning. [facility] lisinopriL 40 mg tablet 2021-0 -16 00:00: 00 Yes [id number] 40mg Take 1 tablet by mouth in the morning. [facility] carvediloL (COREG) 25 mg tablet 2-0 -16 00:00: 00 Yes [id number] 25mg Take 1 tablet by mouth in the morning and 1 tablet in the evening. Take with meals. [facility] amLODIPine 10 mg tablet 2-0 -16 00:00: 00 Yes [id number] 10mg Take 1 tablet by mouth in the morning. [facility] lisinopriL 40 mg tablet 2-0 -16 00:00: 00 Yes [id number] 40mg Take 1 tablet by mouth in the morning. [facility] carvediloL (COREG) 25 mg tablet 2-0 9-16 00:00: 00 Yes [id number] 25mg Take 1 tablet by mouth in the morning and 1 tablet in the evening. Take with meals. [facility] amLODIPine 10 mg tablet 2021-0 -16 00:00: 00 Yes [id number] 10mg Take 1 tablet by mouth in the morning. [facility] lisinopriL 40 mg tablet 2021-0 -16 00:00: 00 Yes [id number] 40mg Take 1 tablet by mouth in the morning. [facility] carvediloL (COREG) 25 mg tablet 2021-0 -16 00:00: 00 Yes [id number] 25mg Take 1 tablet by mouth in the morning and 1 tablet in the evening. Take with meals. [facility] amLODIPine 10 mg tablet 2021-0 -16 00:00: 00 Yes [id number] 10mg Take 1 tablet by mouth in the morning. [facility] lisinopriL 40 mg tablet 2021-0 -16 00:00: 00 Yes [id number] 40mg Take 1 tablet by mouth in the morning. [facility] carvediloL (COREG) 25 mg tablet 2021-0 -16 00:00: 00 Yes [id number] 25mg Take 1 tablet by mouth in the morning and 1 tablet in the evening. Take with meals. [facility] amLODIPine 10 mg tablet 2021-0 -16 00:00: 00 Yes [id number] 10mg Take 1 tablet by mouth in the morning. [facility] lisinopriL 40 mg tablet 2021-0 -16 00:00: 00 Yes [id number] 40mg Take 1 tablet by mouth in the morning. [facility] carvediloL (COREG) 25 mg tablet 2-0 -16 00:00: 00 Yes [id number] 25mg Take 1 tablet by mouth in the morning and 1 tablet in the evening. Take with meals. [facility] amLODIPine 10 mg tablet 2-0 -16 00:00: 00 Yes [id number] 10mg Take 1 tablet by mouth in the morning. [facility] lisinopriL 40 mg tablet 2-0 -16 00:00: 00 Yes [id number] 40mg Take 1 tablet by mouth in the morning. [facility] carvediloL (COREG) 25 mg tablet 2021-0 16 00:00: 00 Yes [id number] 25mg Take 1 tablet by mouth in the morning and 1 tablet in the evening. Take with meals. [facility] amLODIPine 10 mg tablet 2021-0 16 00:00: 00 Yes [id number] 10mg Take 1 tablet by mouth in the morning. [facility] lisinopriL 40 mg tablet 0 16 00:00: 00 Yes [id number] 40mg Take 1 tablet by mouth in the morning. [facility] carvediloL (COREG) 25 mg tablet 2021-0 16 00:00: 00 Yes [id number] 25mg Take 1 tablet by mouth in the morning and 1 tablet in the evening. Take with meals. [facility] amLODIPine 10 mg tablet 2021-0 16 00:00: 00 Yes [id number] 10mg Take 1 tablet by mouth in the morning. [facility] lisinopriL 40 mg tablet 2021-0 16 00:00: 00 Yes [id number] 40mg Take 1 tablet by mouth in the morning. [facility] carvediloL (COREG) 25 mg tablet 2021-0 16 00:00: 00 Yes [id number] 25mg Take 1 tablet by mouth in the morning and 1 tablet in the evening. Take with meals. [facility] amLODIPine 10 mg tablet 2021-0 16 00:00: 00 Yes [id number] 10mg Take 1 tablet by mouth in the morning. [facility] lisinopriL 40 mg tablet 2021-0 16 00:00: 00 Yes [id number] 40mg Take 1 tablet by mouth in the morning. [facility] carvediloL (COREG) 25 mg tablet 2021-0 16 00:00: 00 Yes [id number] 25mg Take 1 tablet by mouth in the morning and 1 tablet in the evening. Take with meals. [facility] amLODIPine 10 mg tablet 2021-0 16 00:00: 00 Yes [id number] 10mg Take 1 tablet by mouth in the morning. [facility] lisinopriL 40 mg tablet 2-0 -16 00:00: 00 Yes [id number] 40mg Take 1 tablet by mouth in the morning. [facility] carvediloL (COREG) 25 mg tablet 2-0 -16 00:00: 00 Yes [id number] 25mg Take 1 tablet by mouth in the morning and 1 tablet in the evening. Take with meals. [facility] amLODIPine 10 mg tablet 2021-0 -16 00:00: 00 Yes [id number] 10mg Take 1 tablet by mouth in the morning. [facility] lisinopriL 40 mg tablet 2021-0 -16 00:00: 00 Yes [id number] 40mg Take 1 tablet by mouth in the morning. [facility] carvediloL (COREG) 25 mg tablet 2021-0 -16 00:00: 00 Yes [id number] 25mg Take 1 tablet by mouth in the morning and 1 tablet in the evening. Take with meals. [facility] amLODIPine 10 mg tablet 2021-0 -16 00:00: 00 Yes [id number] 10mg Take 1 tablet by mouth in the morning. [facility] lisinopriL 40 mg tablet 2021-0 -16 00:00: 00 Yes [id number] 40mg Take 1 tablet by mouth in the morning. [facility] carvediloL (COREG) 25 mg tablet 2-0 -16 00:00: 00 Yes [id number] 25mg Take 1 tablet by mouth in the morning and 1 tablet in the evening. Take with meals. [facility] amLODIPine 10 mg tablet 2021-0 -16 00:00: 00 Yes [id number] 10mg Take 1 tablet by mouth in the morning. [facility] lisinopriL 40 mg tablet 2021-0 -16 00:00: 00 08-12 00:00 :00 No [id number] 40mg Take 1 tablet by mouth in the morning. [facility] carvediloL (COREG) 25 mg tablet 2021-0 9-16 00:00: 00 08-12 00:00 :00 No [id number] 25mg Take 1 tablet by mouth in the morning and 1 tablet in the evening. Take with meals. [facility] amLODIPine 10 mg tablet 2-0 9-16 00:00: 00 08-12 00:00 :00 No [id number] 10mg Take 1 tablet by mouth in the morning. [facility] lisinopriL 40 mg tablet 2-0 9-16 00:00: 00 08-12 00:00 :00 No [id number] 40mg Take 1 tablet by mouth in the morning. [facility] carvediloL (COREG) 25 mg tablet 2021-0 9-16 00:00: 00 08-12 00:00 :00 No [id number] 25mg Take 1 tablet by mouth in the morning and 1 tablet in the evening. Take with meals. [facility] amLODIPine 10 mg tablet 2-0 9-16 00:00: 00 08-12 00:00 :00 No [id number] 10mg Take 1 tablet by mouth in the morning. [facility] lisinopriL 40 mg tablet 2021-0 9-16 00:00: 00 08-12 00:00 :00 No [id number] 40mg Take 1 tablet by mouth in the morning. [facility] carvediloL (COREG) 25 mg tablet 2-0 9-16 00:00: 00 08-12 00:00 :00 No [id number] 25mg Take 1 tablet by mouth in the morning and 1 tablet in the evening. Take with meals. [facility] amLODIPine 10 mg tablet 2-0 9-16 00:00: 00 08-12 00:00 :00 No [id number] 10mg Take 1 tablet by mouth in the morning. [facility] lisinopriL 40 mg tablet 2-0 9-16 00:00: 00 08-12 00:00 :00 No [id number] 40mg Take 1 tablet by mouth in the morning. [facility] carvediloL (COREG) 25 mg tablet 2-0 9-16 00:00: 00 08-12 00:00 :00 No [id number] 25mg Take 1 tablet by mouth in the morning and 1 tablet in the evening. Take with meals. [facility] amLODIPine 10 mg tablet 2-0 9-16 00:00: 00 08-12 00:00 :00 No [id number] 10mg Take 1 tablet by mouth in the morning. [facility] lisinopriL 40 mg tablet 2021-0 -16 00:00: 00 08-12 00:00 :00 No [id number] 40mg Take 1 tablet by mouth in the morning. [facility] carvediloL (COREG) 25 mg tablet 2021-0 -16 00:00: 00 08-12 00:00 :00 No [id number] 25mg Take 1 tablet by mouth in the morning and 1 tablet in the evening. Take with meals. [facility] amLODIPine 10 mg tablet 2021-0 16 00:00: 00 08-12 00:00 :00 No [id number] 10mg Take 1 tablet by mouth in the morning. [facility] predniSONE 5 mg tablet 2021-0 -16 00:00: 00 08-09 05:59 :00 No [id number] Take 6 tablets by mouth daily for 7 days, THEN 4 tablets daily for 7 days, THEN 2 tablets daily for 7 days, THEN 1 tablet daily for 100 days. [facility] predniSONE 5 mg tablet 2021-0 -16 00:00: 00 08-09 05:59 :00 No [id number] Take 6 tablets by mouth daily for 7 days, THEN 4 tablets daily for 7 days, THEN 2 tablets daily for 7 days, THEN 1 tablet daily for 100 days. [facility] predniSONE 5 mg tablet 2-0 9-16 00:00: 00 08-09 05:59 :00 No [id number] Take 6 tablets by mouth daily for 7 days, THEN 4 tablets daily for 7 days, THEN 2 tablets daily for 7 days, THEN 1 tablet daily for 100 days. [facility] carvediloL 25 mg tablet 2-0 9-16 00:00: 00 07-09 05:59 :00 No [id number] 25mg Take 1 tablet by mouth in the morning and 1 tablet in the evening. Take with meals. Do all this for 90 days. [facility] divalproex 500 mg EC tablet 04-09 00:00: 00 07-09 05:59 :00 No [id number] 1500mg Take 3 tablets by mouth every 12 (twelve) hours for 90 days. [facility] risperiDONE 1 mg tablet 04-09 00:00: 00 07-09 05:59 :00 No [id number] 1mg Take 1 tablet by mouth in the morning and 1 tablet in the evening. Do all this for 90 days. [facility] carvediloL 25 mg tablet 04-09 00:00: 00 07-09 05:59 :00 No [id number] 25mg Take 1 tablet by mouth in the morning and 1 tablet in the evening. Take with meals. Do all this for 90 days. [facility] divalproex 500 mg EC tablet 04-09 00:00: 00 07-09 05:59 :00 No [id number] 1500mg Take 3 tablets by mouth every 12 (twelve) hours for 90 days. [facility] risperiDONE 1 mg tablet 04-09 00:00: 00 07-09 05:59 :00 No [id number] 1mg Take 1 tablet by mouth in the morning and 1 tablet in the evening. Do all this for 90 days. [facility] carvediloL 25 mg tablet 04-09 00:00: 00 07-09 05:59 :00 No [id number] 25mg Take 1 tablet by mouth in the morning and 1 tablet in the evening. Take with meals. Do all this for 90 days. [facility] divalproex 500 mg EC tablet 04-09 00:00: 00 07-09 05:59 :00 No [id number] 1500mg Take 3 tablets by mouth every 12 (twelve) hours for 90 days. [facility] risperiDONE 1 mg tablet 04-09 00:00: 00 07-09 05:59 :00 No [id number] 1mg Take 1 tablet by mouth in the morning and 1 tablet in the evening. Do all this for 90 days. [facility] divalproex 500 mg EC tablet 04-09 00:00: 00 07-09 05:59 :00 No [id number] 1500mg Take 3 tablets by mouth every 12 (twelve) hours for 90 days. [facility] risperiDONE 1 mg tablet 04-09 00:00: 00 07-09 05:59 :00 No [id number] 1mg Take 1 tablet by mouth in the morning and 1 tablet in the evening. Do all this for 90 days. [facility] divalproex 500 mg EC tablet 04-09 00:00: 00 07-09 05:59 :00 No [id number] 1500mg Take 3 tablets by mouth every 12 (twelve) hours for 90 days. [facility] risperiDONE 1 mg tablet 04-09 00:00: 00 07-09 05:59 :00 No [id number] 1mg Take 1 tablet by mouth in the morning and 1 tablet in the evening. Do all this for 90 days. [facility] divalproex 500 mg EC tablet 04-09 00:00: 00 07-09 05:59 :00 No [id number] 1500mg Take 3 tablets by mouth every 12 (twelve) hours for 90 days. [facility] risperiDONE 1 mg tablet 04-09 00:00: 00 07-09 05:59 :00 No [id number] 1mg Take 1 tablet by mouth in the morning and 1 tablet in the evening. Do all this for 90 days. [facility] divalproex 500 mg EC tablet 04-09 00:00: 00 07-09 05:59 :00 No [id number] 1500mg Take 3 tablets by mouth every 12 (twelve) hours for 90 days. [facility] risperiDONE 1 mg tablet 04-09 00:00: 00 07-09 05:59 :00 No [id number] 1mg Take 1 tablet by mouth in the morning and 1 tablet in the evening. Do all this for 90 days. [facility] divalproex 500 mg EC tablet 04-09 00:00: 00 07-09 05:59 :00 No [id number] 1500mg Take 3 tablets by mouth every 12 (twelve) hours for 90 days. [facility] risperiDONE 1 mg tablet 04-09 00:00: 00 07-09 05:59 :00 No [id number] 1mg Take 1 tablet by mouth in the morning and 1 tablet in the evening. Do all this for 90 days. [facility] divalproex 500 mg EC tablet 04-09 00:00: 00 07-09 05:59 :00 No [id number] 1500mg Take 3 tablets by mouth every 12 (twelve) hours for 90 days. [facility] risperiDONE 1 mg tablet 04-09 00:00: 00 07-09 05:59 :00 No [id number] 1mg Take 1 tablet by mouth in the morning and 1 tablet in the evening. Do all this for 90 days. [facility] divalproex 500 mg EC tablet 04-09 00:00: 00 07-09 05:59 :00 No [id number] 1500mg Take 3 tablets by mouth every 12 (twelve) hours for 90 days. [facility] risperiDONE 1 mg tablet 04-09 00:00: 00 07-09 05:59 :00 No [id number] 1mg Take 1 tablet by mouth in the morning and 1 tablet in the evening. Do all this for 90 days. [facility] divalproex 500 mg EC tablet 04-09 00:00: 00 07-09 05:59 :00 No [id number] 1500mg Take 3 tablets by mouth every 12 (twelve) hours for 90 days. [facility] risperiDONE 1 mg tablet 04-09 00:00: 00 07-09 05:59 :00 No [id number] 1mg Take 1 tablet by mouth in the morning and 1 tablet in the evening. Do all this for 90 days. [facility] divalproex 500 mg EC tablet 04-09 00:00: 00 07-09 05:59 :00 No [id number] 1500mg Take 3 tablets by mouth every 12 (twelve) hours for 90 days. [facility] risperiDONE 1 mg tablet 04-09 00:00: 00 07-09 05:59 :00 No [id number] 1mg Take 1 tablet by mouth in the morning and 1 tablet in the evening. Do all this for 90 days. [facility] divalproex 500 mg EC tablet 04-09 00:00: 00 07-09 05:59 :00 No [id number] 1500mg Take 3 tablets by mouth every 12 (twelve) hours for 90 days. [facility] risperiDONE 1 mg tablet 04-09 00:00: 00 07-09 05:59 :00 No [id number] 1mg Take 1 tablet by mouth in the morning and 1 tablet in the evening. Do all this for 90 days. [facility] divalproex 500 mg EC tablet 04-09 00:00: 00 07-09 05:59 :00 No [id number] 1500mg Take 3 tablets by mouth every 12 (twelve) hours for 90 days. [facility] risperiDONE 1 mg tablet 04-09 00:00: 00 07-09 05:59 :00 No [id number] 1mg Take 1 tablet by mouth in the morning and 1 tablet in the evening. Do all this for 90 days. [facility] divalproex 500 mg EC tablet 04-09 00:00: 00 07-09 05:59 :00 No [id number] 1500mg Take 3 tablets by mouth every 12 (twelve) hours for 90 days. [facility] risperiDONE 1 mg tablet 04-09 00:00: 00 07-09 05:59 :00 No [id number] 1mg Take 1 tablet by mouth in the morning and 1 tablet in the evening. Do all this for 90 days. [facility] divalproex 500 mg EC tablet 04-09 00:00: 00 07-09 05:59 :00 No [id number] 1500mg Take 3 tablets by mouth every 12 (twelve) hours for 90 days. [facility] risperiDONE 1 mg tablet 04-09 00:00: 00 07-09 05:59 :00 No [id number] 1mg Take 1 tablet by mouth in the morning and 1 tablet in the evening. Do all this for 90 days. [facility] divalproex 500 mg EC tablet 04-09 00:00: 00 07-09 05:59 :00 No [id number] 1500mg Take 3 tablets by mouth every 12 (twelve) hours for 90 days. [facility] risperiDONE 1 mg tablet 04-09 00:00: 00 07-09 05:59 :00 No [id number] 1mg Take 1 tablet by mouth in the morning and 1 tablet in the evening. Do all this for 90 days. [facility] divalproex 500 mg EC tablet 04-09 00:00: 00 07-09 05:59 :00 No [id number] 1500mg Take 3 tablets by mouth every 12 (twelve) hours for 90 days. [facility] risperiDONE 1 mg tablet 04-09 00:00: 00 07-09 05:59 :00 No [id number] 1mg Take 1 tablet by mouth in the morning and 1 tablet in the evening. Do all this for 90 days. [facility] divalproex 500 mg EC tablet 04-09 00:00: 00 07-09 05:59 :00 No [id number] 1500mg Take 3 tablets by mouth every 12 (twelve) hours for 90 days. [facility] risperiDONE 1 mg tablet 04-09 00:00: 00 07-09 05:59 :00 No [id number] 1mg Take 1 tablet by mouth in the morning and 1 tablet in the evening. Do all this for 90 days. [facility] predniSONE 5 mg tablet 16 00:00: 00 05-07 00:00 :00 No [id number] Take 6 tablets by mouth daily for 7 days, THEN 4 tablets daily for 7 days, THEN 2 tablets daily for 7 days, THEN 1 tablet daily for 100 days. [facility] carvediloL 25 mg tablet 04-09 00:00: 00 05-05 00:00 :00 No [id number] 25mg Take 1 tablet by mouth in the morning and 1 tablet in the evening. Take with meals. Do all this for 90 days. [facility] predniSONE 5 mg tablet 04-08 00:00: 00 04-09 00:00 :00 No [id number] Take 6 tablets by mouth daily for 5 days, THEN 4 tablets daily for 5 days, THEN 2 tablets daily for 5 days, THEN 1 tablet daily for 100 days. [facility] predniSONE (DELTASONE) tablet 40 mg 04-06 14:00: 00 04-11 13:59 :00 No 40mg 40 mg, Oral, DAILY, 5 doses, First dose on Tue04/06/22 at 0900, Last dose on Tue04/10/22 at 0900, Routine [facility] NaCl 0.9% (NS) injection 10 mL 04-06 11:19: 41 Yes 10mL 10 mL, Slow IV Push, PRN, Starting on Tue04/06/22 at 0619, Until Discontinu ed, Routine, line maintenanc e [facility] lidocaine 1% (PF) (XYLOCAINE) injection 5 mL 04-06 11:19: 41 Yes 5mL 5 mL, Subcutaneo us, PRN, Starting on Tue04/06/22 at 0619, Until Discontinu ed, Routine, Local anesthesia [facility] predniSONE (DELTASONE) tablet 40 mg 04-05 14:00: 00 04-05 13:22 :00 No 40mg 40 mg, Oral, DAILY, 1 dose, First dose (after last modificati on) on 04/05/22 at 0900, Routine [facility] divalproex (DEPAKOTE) EC tablet 1,500 mg 04-04 16:30: 00 Yes 1500mg 1,500 mg, Oral, Q12H, First dose on 04/04/22 at 1130, Until Discontinu ed, Routine [facility] risperiDONE (RISPERDAL) tablet 1 mg 04-04 04:00: 00 Yes 1mg 1 mg, Oral, BID, First dose (after last modificati on) on 04/03/22 at 2300, Until Discontinu ed, Routine [facility] melatonin (MELATIN) tablet 3 mg 04-04 02:00: 00 Yes [id number] 3mg 3 mg, Oral, QHS, First dose on 04/03/22 at 2100, Until Discontinu ed, Routine [facility] pantoprazol e (PROTONIX) EC tablet 40 mg 04-01 14:00: 00 Yes 40mg 40 mg, Oral, DAILY, First dose on Tue04/01/22 at 0900, Until Discontinu ed, Routine [facility] lisinopriL (PRINIVIL,Z ESTRIL) tablet 40 mg 04-01 14:00: 00 Yes 40mg 40 mg, Oral, DAILY, First dose on Tue04/01/22 at 0900, Until Discontinu ed [facility] predniSONE (DELTASONE) tablet 40 mg 04-01 14:00: 00 04-05 11:56 :20 No 40mg 40 mg, Oral, DAILY, First dose (after last modificati on) on Tue04/01/22 at 0900, Until Discontinu ed, Routine [facility] acetaminoph en ADULT (OFIRMEV) injection 1,000 mg 04-01 07:00: 00 04-01 06:43 :00 No 1000mg 1,000 mg, IV Infusion, at 400 mL/hr Administer over 15 Minutes, ONCE NOW, 1 dose, On Tue04/01/22 at 0200, Routine
Indicatio n: Non-periop erative Patient
Approved by: Per Policy (NPO Status) [facility] hydralAZINE (APRESOLINE ) injection 5 mg 04-01 06:12: 29 Yes 5mg 5 mg, Slow IV Push, Q4HPRN, Starting on Tue04/01/22 at 0112, Until Discontinu ed, Routine, DBP=>100; SBP=>160 [facility] valproate (DEPACON) 1,500 mg in D5W piggyback 04-01 05:00: 00 04-04 16:15 :56 No 1500mg 1,500 mg, IV Piggyback, Q12HA1, First dose on Tue04/01/22 at 0000, Until Discontinu ed, Administer over 60 Minutes, 100 mL [facility] atorvastati n (LIPITOR) tablet 20 mg 04-01 02:00: 00 Yes 20mg 20 mg, Oral, QHS, First dose on Tue03/31/22 at 2100, Until Discontinu ed, Routine [facility] amLODIPine (NORVASC) tablet 10 mg 04-01 02:00: 00 Yes 10mg 10 mg, Oral, QHS, First dose on Tue03/31/22 at 2100, Until Discontinu ed, Routine [facility] heparin (porcine) injection 5,000 Units 04-01 01:00: 00 Yes 5000U 5,000 Units, Subcutaneo us, Q12H, First dose on Tue03/31/22 at 2000, Until Discontinu ed, Routine [facility] risperiDONE (RisperDAL M-TAB) disintegrat ing tablet 1 mg 04-01 01:00: 00 04-04 03:55 :54 No 1mg 1 mg, Oral, BID, First dose on Tue03/31/22 at 2000, Until Discontinu ed, Routine [facility] diphenhydrA MINE (BENADRYL) injection 25 mg 03-31 23:15: 00 04-01 07:16 :00 No 25mg 25 mg, Slow IV Push, ONCE, 1 dose, On Tue03/31/22 at 1815, Routine [facility] acetaminoph en (TYLENOL) tablet 325 mg 03-31 22:35: 02 Yes 325mg 325 mg, Oral, Q6HPRN, Starting on Tue03/31/22 at 1735, Until Discontinu ed, Routine, Pain (scale 1-3) [facility] carvediloL (COREG) tablet 25 mg 03-31 22:00: 00 Yes 25mg 25 mg, Oral, BID MEALS, First dose on Tue03/31/22 at 1700, Until Discontinu ed, Routine [facility] azaTHIOprin e (IMURAN) tablet 50 mg 03-31 17:15: 00 04-05 16:03 :26 No 50mg 50 mg, Oral, DAILY, First dose (after last modificati on) on Tue03/31/22 at 1215, Until Discontinu ed, Routine [facility] fosphenytoi n (CEREBYX) 998 mg PE in NaCl 0.9% (NS) piggyback 03-31 17:00: 00 03-31 18:04 :00 No 10mg{ph enytoin 'equiva lent}/k g 998 mg PE (10 mg PE/kg ?99.8 kg), IV Piggyback, ONCE, 1 dose, On Tue03/31/22 at 1200, Administer over 30 Minutes, 100 mL [facility] divalproex ER (DEPAKOTE ER) 24 hr tablet 1,500 mg 03-31 16:45: 00 04-01 03:40 :07 No 1500mg 1,500 mg, Oral, BID, First dose on Tue03/31/22 at 1145, Until Discontinu ed, Routine [facility] NaCl 0.9% (NS) IV infusion 1,000 mL 03-31 16:30: 00 Yes 1000mL at 50 mL/hr, IV Infusion, CONTINUOUS , Starting on Tue03/31/22 at 1130, Until Discontinu ed, Routine [facility] iopamidol (ISOVUE 370-500 mL) injection 130 mL 03-31 16:30: 00 03-31 15:25 :00 No [id number] 130mL 130 mL, Intravenou s, ONCE, 1 dose, On Tue03/31/22 at 1130, Routine [facility] acetaminoph en (TYLENOL) tablet 650 mg 03-31 16:20: 10 Yes 650mg 650 mg, Oral, Q6HPRN, Starting on Tue03/31/22 at 1120, Until Discontinu ed, Routine, Pain (scale 4-6) [facility] docusate (COLACE) capsule 100 mg 03-31 16:20: 10 Yes 100mg 100 mg, Oral, QDAILYPRN, Starting on Tue03/31/22 at 1120, Until Discontinu ed, Routine, Constipati on [facility] hydrOXYzine (ATARAX) 10 mg/5 mL solution 10 mg 03-31 16:19: 24 Yes 10mg 10 mg, Oral, Q6HPRN, Starting on Tue03/31/22 at 1119, Until Discontinu ed, Routine, Anxiety [facility] NEISHA ASPIRIN ORAL 03-31 11:23: 20 03-31 00:00 :00 No 81mg Take 81 mg by mouth daily. [facility] Sennosides (EX-LAX MAXIMUM STRENGTH) 25 mg Tab 03-31 11:23: 20 03-31 00:00 :00 No Take by mouth. [facility] NEISHA ASPIRIN ORAL 03-31 11:23: 20 03-31 00:00 :00 No 81mg Take 81 mg by mouth daily. [facility] Sennosides (EX-LAX MAXIMUM STRENGTH) 25 mg Tab 03-31 11:23: 20 03-31 00:00 :00 No Take by mouth. [facility] NEISHA ASPIRIN ORAL 03-31 11:23: 20 03-31 00:00 :00 No 81mg Take 81 mg by mouth daily. [facility] Sennosides (EX-LAX MAXIMUM STRENGTH) 25 mg Tab 03-31 11:23: 20 03-31 00:00 :00 No Take by mouth. [facility] NEISHA ASPIRIN ORAL 03-31 11:23: 20 03-31 00:00 :00 No 81mg Take 81 mg by mouth daily. [facility] Sennosides (EX-LAX MAXIMUM STRENGTH) 25 mg Tab 03-31 11:23: 03-31 00:00 :00 No Take by mouth. [facility] OMEPRAZOLE/ SODIUM BICARBONATE (ZEGERID OTC ORAL) 03-11 12:21: 03-11 00:00 :00 No Take by mouth. [facility] OMEPRAZOLE/ SODIUM BICARBONATE (ZEGERID OTC ORAL) 03-11 12:21: 03-11 00:00 :00 No Take by mouth. [facility] OMEPRAZOLE/ SODIUM BICARBONATE (ZEGERID OTC ORAL) 03-11 12:21: 03-11 00:00 :00 No Take by mouth. [facility] pantoprazol e 40 mg EC tablet 03-11 00:00: 00 Yes [id number] 40mg Take 1 tablet by mouth in the morning. [facility] pantoprazol e 40 mg EC tablet 03-11 00:00: 00 Yes [id number] 40mg Take 1 tablet by mouth in the morning. [facility] pantoprazol e 40 mg EC tablet 03-11 00:00: 00 Yes [id number] 40mg Take 1 tablet by mouth in the morning. [facility] pantoprazol e 40 mg EC tablet 03-11 00:00: 00 Yes [id number] 40mg Take 1 tablet by mouth in the morning. [facility] pantoprazol e 40 mg EC tablet 0 03-11 00:00: 00 Yes [id number] 40mg Take 1 tablet by mouth in the morning. [facility] pantoprazol e 40 mg EC tablet 2021-0 8-18 00:00: 00 Yes [id number] 40mg Take 1 tablet by mouth in the morning. [facility] pantoprazol e 40 mg EC tablet 2021-0 8-18 00:00: 00 Yes [id number] 40mg Take 1 tablet by mouth in the morning. [facility] pantoprazol e 40 mg EC tablet 2021-0 8-18 00:00: 00 Yes [id number] 40mg Take 1 tablet by mouth in the morning. [facility] pantoprazol e 40 mg EC tablet 0 8-18 00:00: 00 Yes [id number] 40mg Take 1 tablet by mouth in the morning. [facility] pantoprazol e 40 mg EC tablet 0 8-18 00:00: 00 Yes [id number] 40mg Take 1 tablet by mouth in the morning. [facility] pantoprazol e 40 mg EC tablet 0 8-18 00:00: 00 Yes [id number] 40mg Take 1 tablet by mouth in the morning. [facility] pantoprazol e 40 mg EC tablet 0 8-18 00:00: 00 Yes [id number] 40mg Take 1 tablet by mouth in the morning. [facility] pantoprazol e 40 mg EC tablet 2021-0 8-18 00:00: 00 Yes [id number] 40mg Take 1 tablet by mouth in the morning. [facility] pantoprazol e 40 mg EC tablet 2021-0 8-18 00:00: 00 Yes [id number] 40mg Take 1 tablet by mouth in the morning. [facility] pantoprazol e 40 mg EC tablet 0 8-18 00:00: 00 Yes [id number] 40mg Take 1 tablet by mouth in the morning. [facility] pantoprazol e 40 mg EC tablet 2021-0 8-18 00:00: 00 Yes [id number] 40mg Take 1 tablet by mouth in the morning. [facility] pantoprazol e 40 mg EC tablet 2021-0 8-18 00:00: 00 Yes [id number] 40mg Take 1 tablet by mouth in the morning. [facility] pantoprazol e 40 mg EC tablet 2021-0 8-18 00:00: 00 Yes [id number] 40mg Take 1 tablet by mouth in the morning. [facility] pantoprazol e 40 mg EC tablet 2021-0 8-18 00:00: 00 Yes [id number] 40mg Take 1 tablet by mouth in the morning. [facility] pantoprazol e 40 mg EC tablet 2021-0 8-18 00:00: 00 Yes [id number] 40mg Take 1 tablet by mouth in the morning. [facility] pantoprazol e 40 mg EC tablet 2021-0 8-18 00:00: 00 Yes [id number] 40mg Take 1 tablet by mouth in the morning. [facility] pantoprazol e 40 mg EC tablet 2021-0 8-18 00:00: 00 Yes [id number] 40mg Take 1 tablet by mouth in the morning. [facility] pantoprazol e 40 mg EC tablet 2021-0 8-18 00:00: 00 Yes [id number] 40mg Take 1 tablet by mouth in the morning. [facility] pantoprazol e 40 mg EC tablet 2021-0 8-18 00:00: 00 08-12 00:00 :00 No [id number] 40mg Take 1 tablet by mouth in the morning. [facility] pantoprazol e 40 mg EC tablet 2021-0 8-18 00:00: 00 08-12 00:00 :00 No [id number] 40mg Take 1 tablet by mouth in the morning. [facility] pantoprazol e 40 mg EC tablet 2021-0 8-18 00:00: 00 08-12 00:00 :00 No [id number] 40mg Take 1 tablet by mouth in the morning. [facility] pantoprazol e 40 mg EC tablet 2021-0 8-18 00:00: 00 08-12 00:00 :00 No [id number] 40mg Take 1 tablet by mouth in the morning. [facility] pantoprazol e 40 mg EC tablet 2022-0 8-18 00:00: 00 08-12 00:00 :00 No [id number] 40mg Take 1 tablet by mouth in the morning. [facility] predniSONE 20 mg tablet 2021-0 8-18 00:00: 00 06-10 05:59 :00 No [id number] 20mg Take 1 tablet by mouth in the morning for 90 days. [facility] predniSONE 20 mg tablet 2021-0 8-18 00:00: 00 06-10 05:59 :00 No [id number] 20mg Take 1 tablet by mouth in the morning for 90 days. [facility] predniSONE 20 mg tablet 2021-0 8-18 00:00: 00 04-07 00:00 :00 No [id number] 20mg Take 1 tablet by mouth in the morning for 90 days. [facility] predniSONE 20 mg tablet 2021-0 8-18 00:00: 00 04-07 00:00 :00 No [id number] 20mg Take 1 tablet by mouth in the morning for 90 days. [facility] predniSONE 20 mg tablet 2021-0 8-18 00:00: 00 04-07 00:00 :00 No [id number] 20mg Take 1 tablet by mouth in the morning for 90 days. [facility] predniSONE 20 mg tablet 2021-0 8-18 00:00: 00 04-07 00:00 :00 No [id number] 20mg Take 1 tablet by mouth in the morning for 90 days. [facility] amoxicillin -clavulanat e (AUGMENTIN) 875-125 mg per tablet 12 00:00: 00 Yes [id number] 1{tbl} Take 1 tablet by mouth in the morning and 1 tablet in the evening. [facility] amoxicillin -clavulanat e (AUGMENTIN) 875-125 mg per tablet 0 12 00:00: 00 Yes [id number] 1{tbl} Take 1 tablet by mouth in the morning and 1 tablet in the evening. [facility] amoxicillin -clavulanat e (AUGMENTIN) 875-125 mg per tablet 8-12 00:00: 00 03-31 00:00 :00 No [id number] 1{tbl} Take 1 tablet by mouth in the morning and 1 tablet in the evening. [facility] amoxicillin -clavulanat e (AUGMENTIN) 875-125 mg per tablet 812 00:00: 00 03-31 00:00 :00 No [id number] 1{tbl} Take 1 tablet by mouth in the morning and 1 tablet in the evening. [facility] amoxicillin -clavulanat e (AUGMENTIN) 875-125 mg per tablet 03-05 00:00: 00 03-31 00:00 :00 No [id number] 1{tbl} Take 1 tablet by mouth in the morning and 1 tablet in the evening. [facility] amoxicillin -clavulanat e (AUGMENTIN) 875-125 mg per tablet 03-05 00:00: 00 03-31 00:00 :00 No [id number] 1{tbl} Take 1 tablet by mouth in the morning and 1 tablet in the evening. [facility] azaTHIOprin e 50 mg tablet 8 00:00: 00 03-11 00:00 :00 No [id number] 50mg Take 1 tablet by mouth in the morning. [facility] azaTHIOprin e 50 mg tablet 02-28 00:00: 00 03-11 00:00 :00 No [id number] 50mg Take 1 tablet by mouth in the morning. [facility] azaTHIOprin e 50 mg tablet 8 00:00: 00 03-11 00:00 :00 No [id number] 50mg Take 1 tablet by mouth in the morning. [facility] lisinopriL 40 mg tablet 02-21 08:35: 01 Yes 40mg Take 40 mg by mouth in the morning. [facility] lisinopriL 40 mg tablet 02-21 08:35: 01 Yes 40mg Take 40 mg by mouth in the morning. [facility] ferrous sulfate 325 mg (65 mg iron) tablet 02-20 00:00: 00 Yes [id number] 325mg Take 1 tablet by mouth every other day. [facility] ferrous sulfate 325 mg (65 mg iron) tablet 02-20 00:00: 00 Yes [id number] 325mg Take 1 tablet by mouth every other day. [facility] ferrous sulfate 325 mg (65 mg iron) tablet 02-20 00:00: 00 Yes [id number] 325mg Take 1 tablet by mouth every other day. [facility] ferrous sulfate 325 mg (65 mg iron) tablet 02-20 00:00: 00 Yes [id number] 325mg Take 1 tablet by mouth every other day. [facility] ferrous sulfate 325 mg (65 mg iron) tablet 02-20 00:00: 00 Yes [id number] 325mg Take 1 tablet by mouth every other day. [facility] ferrous sulfate 325 mg (65 mg iron) tablet 02-20 00:00: 00 Yes [id number] 325mg Take 1 tablet by mouth every other day. [facility] ferrous sulfate 325 mg (65 mg iron) tablet 02-20 00:00: 00 Yes [id number] 325mg Take 1 tablet by mouth every other day. [facility] ferrous sulfate 325 mg (65 mg iron) tablet 02-20 00:00: 00 Yes [id number] 325mg Take 1 tablet by mouth every other day. [facility] ferrous sulfate 325 mg (65 mg iron) tablet 02-20 00:00: 00 Yes [id number] 325mg Take 1 tablet by mouth every other day. [facility] ferrous sulfate 325 mg (65 mg iron) tablet 02-20 00:00: 00 Yes [id number] 325mg Take 1 tablet by mouth every other day. [facility] ferrous sulfate 325 mg (65 mg iron) tablet 02-20 00:00: 00 Yes [id number] 325mg Take 1 tablet by mouth every other day. [facility] ferrous sulfate 325 mg (65 mg iron) tablet 02-20 00:00: 00 Yes [id number] 325mg Take 1 tablet by mouth every other day. [facility] ferrous sulfate 325 mg (65 mg iron) tablet 02-20 00:00: 00 Yes [id number] 325mg Take 1 tablet by mouth every other day. [facility] ferrous sulfate 325 mg (65 mg iron) tablet 02-20 00:00: 00 Yes [id number] 325mg Take 1 tablet by mouth every other day. [facility] ferrous sulfate 325 mg (65 mg iron) tablet 02-20 00:00: 00 Yes [id number] 325mg Take 1 tablet by mouth every other day. [facility] ferrous sulfate 325 mg (65 mg iron) tablet 02-20 00:00: 00 Yes [id number] 325mg Take 1 tablet by mouth every other day. [facility] ferrous sulfate 325 mg (65 mg iron) tablet 02-20 00:00: 00 Yes [id number] 325mg Take 1 tablet by mouth every other day. [facility] ferrous sulfate 325 mg (65 mg iron) tablet 02-20 00:00: 00 Yes [id number] 325mg Take 1 tablet by mouth every other day. [facility] ferrous sulfate 325 mg (65 mg iron) tablet 02-20 00:00: 00 Yes [id number] 325mg Take 1 tablet by mouth every other day. [facility] ferrous sulfate 325 mg (65 mg iron) tablet 02-20 00:00: 00 Yes [id number] 325mg Take 1 tablet by mouth every other day. [facility] ferrous sulfate 325 mg (65 mg iron) tablet 0 02-20 00:00: 00 Yes [id number] 325mg Take 1 tablet by mouth every other day. [facility] ferrous sulfate 325 mg (65 mg iron) tablet 02-20 00:00: 00 Yes [id number] 325mg Take 1 tablet by mouth every other day. [facility] ferrous sulfate 325 mg (65 mg iron) tablet 02-20 00:00: 00 Yes [id number] 325mg Take 1 tablet by mouth every other day. [facility] ferrous sulfate 325 mg (65 mg iron) tablet 02-20 00:00: 00 08-12 00:00 :00 No [id number] 325mg Take 1 tablet by mouth every other day. [facility] ferrous sulfate 325 mg (65 mg iron) tablet 02-20 00:00: 00 08-12 00:00 :00 No [id number] 325mg Take 1 tablet by mouth every other day. [facility] ferrous sulfate 325 mg (65 mg iron) tablet 02-20 00:00: 00 08-12 00:00 :00 No [id number] 325mg Take 1 tablet by mouth every other day. [facility] ferrous sulfate 325 mg (65 mg iron) tablet 02-20 00:00: 00 08-12 00:00 :00 No [id number] 325mg Take 1 tablet by mouth every other day. [facility] ferrous sulfate 325 mg (65 mg iron) tablet 02-20 00:00: 08-12 00:00 :00 No [id number] 325mg Take 1 tablet by mouth every other day. [facility] carvedilol (COREG) 25 mg tablet 02-19 20:35: 38 Yes 25mg Take 25 mg by mouth 2 (two) times daily with meals. [facility] omega-3s-dh a-epa-fish oil-D3 (FISH OIL-VIT D3) 360 mg-1,200 mg -1,000 unit Cap 02-19 20:35: 38 Yes Take by mouth. [facility] NEISHA ASPIRIN ORAL 02-19 20:35: 38 Yes 81mg Take 81 mg by mouth daily. [facility] atorvastati n (LIPITOR) 20 mg tablet 02-19 20:35: 38 Yes 20mg Take 20 mg by mouth at bedtime. [facility] MULTIVITS-M INERALS/FA/ LYCOPENE (ONE-A-DAY MEN'S MULTIVITAMI N ORAL) 02-19 20:35: 38 Yes Take by mouth. [facility] Sennosides (EX-LAX MAXIMUM STRENGTH) 25 mg Tab 02-19 20:35: 38 Yes Take by mouth. [facility] ibuprofen (ADVIL) 200 mg tablet 02-19 20:35: 38 Yes 200mg Take 200 mg by mouth 2 (two) times daily with meals. [facility] POTASSIUM-9 9 ORAL 02-19 20:35: 38 Yes 99mg Take 99 mg by mouth daily. [facility] vitamin B-12 100 mcg tablet 02-19 20:35: 38 Yes 2500ug Take 2,500 mcg by mouth daily. [facility] carvedilol (COREG) 25 mg tablet 02-19 20:35: 38 Yes 25mg Take 25 mg by mouth 2 (two) times daily with meals. [facility] omega-3s-dh a-epa-fish oil-D3 (FISH OIL-VIT D3) 360 mg-1,200 mg -1,000 unit Cap 02-19 20:35: 38 Yes Take by mouth. [facility] NEISHA ASPIRIN ORAL 02-19 20:35: 38 Yes 81mg Take 81 mg by mouth daily. [facility] atorvastati n (LIPITOR) 20 mg tablet 02-19 20:35: 38 Yes 20mg Take 20 mg by mouth at bedtime. [facility] MULTIVITS-M INERALS/FA/ LYCOPENE (ONE-A-DAY MEN'S MULTIVITAMI N ORAL) 02-19 20:35: 38 Yes Take by mouth. [facility] Sennosides (EX-LAX MAXIMUM STRENGTH) 25 mg Tab 02-19 20:35: 38 Yes Take by mouth. [facility] ibuprofen (ADVIL) 200 mg tablet 02-19 20:35: 38 Yes 200mg Take 200 mg by mouth 2 (two) times daily with meals. [facility] POTASSIUM-9 9 ORAL 02-19 20:35: 38 Yes 99mg Take 99 mg by mouth daily. [facility] vitamin B-12 100 mcg tablet 02-19 20:35: 38 Yes 2500ug Take 2,500 mcg by mouth daily. [facility] divalproex ER 500 mg 24 hr tablet 02-19 00:00: 00 Yes [id number] 1000mg Take 2 tablets by mouth in the morning and 2 tablets in the evening. [facility] hydrOXYzine 10 mg/5 mL solution 02-19 00:00: 00 Yes [id number] 10mg Take 5 mL by mouth every 6 (six) hours as needed for Anxiety. [facility] risperiDONE 1 mg disintegrat ing tablet 02-19 00:00: 00 Yes [id number] 1mg Take 1 tablet by mouth in the morning and 1 tablet in the evening. [facility] divalproex ER 500 mg 24 hr tablet 02-19 00:00: 00 Yes [id number] 1000mg Take 2 tablets by mouth in the morning and 2 tablets in the evening. [facility] hydrOXYzine 10 mg/5 mL solution 02-19 00:00: 00 Yes [id number] 10mg Take 5 mL by mouth every 6 (six) hours as needed for Anxiety. [facility] risperiDONE 1 mg disintegrat ing tablet 02-19 00:00: 00 Yes [id number] 1mg Take 1 tablet by mouth in the morning and 1 tablet in the evening. [facility] hydrOXYzine 10 mg/5 mL solution 02-19 00:00: 00 Yes [id number] 10mg Take 5 mL by mouth every 6 (six) hours as needed for Anxiety. [facility] hydrOXYzine 10 mg/5 mL solution 02-19 00:00: 00 Yes [id number] 10mg Take 5 mL by mouth every 6 (six) hours as needed for Anxiety. [facility] hydrOXYzine 10 mg/5 mL solution 02-19 00:00: 00 Yes [id number] 10mg Take 5 mL by mouth every 6 (six) hours as needed for Anxiety. [facility] hydrOXYzine 10 mg/5 mL solution 0 02-19 00:00: 00 Yes [id number] 10mg Take 5 mL by mouth every 6 (six) hours as needed for Anxiety. [facility] hydrOXYzine 10 mg/5 mL solution 2021-0 02-19 00:00: 00 Yes [id number] 10mg Take 5 mL by mouth every 6 (six) hours as needed for Anxiety. [facility] hydrOXYzine 10 mg/5 mL solution 0 02-19 00:00: 00 Yes [id number] 10mg Take 5 mL by mouth every 6 (six) hours as needed for Anxiety. [facility] hydrOXYzine 10 mg/5 mL solution 2021-0 02-19 00:00: 00 Yes [id number] 10mg Take 5 mL by mouth every 6 (six) hours as needed for Anxiety. [facility] hydrOXYzine 10 mg/5 mL solution 0 02-19 00:00: 00 Yes [id number] 10mg Take 5 mL by mouth every 6 (six) hours as needed for Anxiety. [facility] hydrOXYzine 10 mg/5 mL solution 0 02-19 00:00: 00 Yes [id number] 10mg Take 5 mL by mouth every 6 (six) hours as needed for Anxiety. [facility] hydrOXYzine 10 mg/5 mL solution 2021-0 02-19 00:00: 00 Yes [id number] 10mg Take 5 mL by mouth every 6 (six) hours as needed for Anxiety. [facility] hydrOXYzine 10 mg/5 mL solution 2021-0 02-19 00:00: 00 Yes [id number] 10mg Take 5 mL by mouth every 6 (six) hours as needed for Anxiety. [facility] hydrOXYzine 10 mg/5 mL solution 2021-0 02-19 00:00: 00 Yes [id number] 10mg Take 5 mL by mouth every 6 (six) hours as needed for Anxiety. [facility] hydrOXYzine 10 mg/5 mL solution 2021-0 02-19 00:00: 00 Yes [id number] 10mg Take 5 mL by mouth every 6 (six) hours as needed for Anxiety. [facility] hydrOXYzine 10 mg/5 mL solution 2021-0 02-19 00:00: 00 Yes [id number] 10mg Take 5 mL by mouth every 6 (six) hours as needed for Anxiety. [facility] hydrOXYzine 10 mg/5 mL solution 0 02-19 00:00: 00 Yes [id number] 10mg Take 5 mL by mouth every 6 (six) hours as needed for Anxiety. [facility] hydrOXYzine 10 mg/5 mL solution 2021-0 02-19 00:00: 00 Yes [id number] 10mg Take 5 mL by mouth every 6 (six) hours as needed for Anxiety. [facility] hydrOXYzine 10 mg/5 mL solution 2021-0 02-19 00:00: 00 Yes [id number] 10mg Take 5 mL by mouth every 6 (six) hours as needed for Anxiety. [facility] hydrOXYzine 10 mg/5 mL solution 2021-0 02-19 00:00: 00 Yes [id number] 10mg Take 5 mL by mouth every 6 (six) hours as needed for Anxiety. [facility] hydrOXYzine 10 mg/5 mL solution 0 02-19 00:00: 00 Yes [id number] 10mg Take 5 mL by mouth every 6 (six) hours as needed for Anxiety. [facility] hydrOXYzine 10 mg/5 mL solution 0 02-19 00:00: 00 Yes [id number] 10mg Take 5 mL by mouth every 6 (six) hours as needed for Anxiety. [facility] hydrOXYzine 10 mg/5 mL solution 2021-0 02-19 00:00: 00 Yes [id number] 10mg Take 5 mL by mouth every 6 (six) hours as needed for Anxiety. [facility] hydrOXYzine 10 mg/5 mL solution 0 02-19 00:00: 00 20208-12 00:00 :00 No [id number] 10mg Take 5 mL by mouth every 6 (six) hours as needed for Anxiety. [facility] hydrOXYzine 10 mg/5 mL solution 02-19 00:00: 00 08-12 00:00 :00 No [id number] 10mg Take 5 mL by mouth every 6 (six) hours as needed for Anxiety. [facility] hydrOXYzine 10 mg/5 mL solution 02-19 00:00: 00 08-12 00:00 :00 No [id number] 10mg Take 5 mL by mouth every 6 (six) hours as needed for Anxiety. [facility] hydrOXYzine 10 mg/5 mL solution 02-19 00:00: 00 08-12 00:00 :00 No [id number] 10mg Take 5 mL by mouth every 6 (six) hours as needed for Anxiety. [facility] hydrOXYzine 10 mg/5 mL solution 02-19 00:00: 00 08-12 00:00 :00 No [id number] 10mg Take 5 mL by mouth every 6 (six) hours as needed for Anxiety. [facility] amLODIPine 10 mg tablet 02-19 00:00: 00 05-21 04:59 :00 No [id number] 10mg Take 1 tablet by mouth at bedtime for 90 days. [facility] amLODIPine 10 mg tablet 02-19 00:00: 00 05-21 04:59 :00 No [id number] 10mg Take 1 tablet by mouth at bedtime for 90 days. [facility] divalproex ER 500 mg 24 hr tablet 02-19 00:00: 00 04-09 00:00 :00 No [id number] 1000mg Take 2 tablets by mouth in the morning and 2 tablets in the evening. [facility] risperiDONE 1 mg disintegrat ing tablet 02-19 00:00: 00 04-09 00:00 :00 No [id number] 1mg Take 1 tablet by mouth in the morning and 1 tablet in the evening. [facility] amLODIPine 10 mg tablet 02-19 00:00: 04-09 00:00 :00 No [id number] 10mg Take 1 tablet by mouth at bedtime for 90 days. [facility] divalproex ER 500 mg 24 hr tablet 02-19 00:00: 00 04-09 00:00 :00 No [id number] 1000mg Take 2 tablets by mouth in the morning and 2 tablets in the evening. [facility] risperiDONE 1 mg disintegrat ing tablet 02-19 00:00: 00 04-09 00:00 :00 No [id number] 1mg Take 1 tablet by mouth in the morning and 1 tablet in the evening. [facility] amLODIPine 10 mg tablet 02-19 00:00: 00 04-09 00:00 :00 No [id number] 10mg Take 1 tablet by mouth at bedtime for 90 days. [facility] divalproex ER 500 mg 24 hr tablet 02-19 00:00: 00 04-09 00:00 :00 No [id number] 1000mg Take 2 tablets by mouth in the morning and 2 tablets in the evening. [facility] risperiDONE 1 mg disintegrat ing tablet 02-19 00:00: 00 04-09 00:00 :00 No [id number] 1mg Take 1 tablet by mouth in the morning and 1 tablet in the evening. [facility] amLODIPine 10 mg tablet 02-19 00:00: 00 04-09 00:00 :00 No [id number] 10mg Take 1 tablet by mouth at bedtime for 90 days. [facility] divalproex ER 500 mg 24 hr tablet 02-19 00:00: 00 04-09 00:00 :00 No [id number] 1000mg Take 2 tablets by mouth in the morning and 2 tablets in the evening. [facility] risperiDONE 1 mg disintegrat ing tablet 0 02-19 00:00: 00 04-09 00:00 :00 No [id number] 1mg Take 1 tablet by mouth in the morning and 1 tablet in the evening. [facility] amLODIPine 10 mg tablet 02-19 00:00: 00 04-09 00:00 :00 No [id number] 10mg Take 1 tablet by mouth at bedtime for 90 days. [facility] predniSONE 5 mg tablet 02-19 00:00: 00 03-11 00:00 :00 No [id number] Take 8 tablets by mouth daily for 3 days, THEN 6 tablets daily for 3 days, THEN 4 tablets daily for 3 days, THEN 3 tablets daily for 3 days, THEN 1.5 tablets daily for 100 days. [facility] predniSONE 5 mg tablet 02-19 00:00: 00 03-11 00:00 :00 No [id number] Take 8 tablets by mouth daily for 3 days, THEN 6 tablets daily for 3 days, THEN 4 tablets daily for 3 days, THEN 3 tablets daily for 3 days, THEN 1.5 tablets daily for 100 days. [facility] predniSONE 5 mg tablet 02-19 00:00: 00 03-11 00:00 :00 No [id number] Take 8 tablets by mouth daily for 3 days, THEN 6 tablets daily for 3 days, THEN 4 tablets daily for 3 days, THEN 3 tablets daily for 3 days, THEN 1.5 tablets daily for 100 days. [facility] Topiramate 25 MG Topiramate 25 MG 04-17 00:00: 00 No 1{table t} QD Topiramate 25 MG Topiramate 25 MG Topiramate 25 MG 04-17 00:00: 00 No 1{table t} QD Topiramate 25 MG Cipro 500 MG Cipro 500 MG 0 24 00:00: 00 04 00:00 :00 No 1{table t} BID Cipro 500 MG butalbital- acetaminoph en-caff 50-325-40 mg tablet 18 00:00: 00 Yes [id number] 1{tbl} Take 1 tablet by mouth every 6 (six) hours as needed for Pain (scale 7-10). [facility] butalbital- acetaminoph en-caff 50-325-40 mg tablet 18 00:00: 00 Yes [id number] 1{tbl} Take 1 tablet by mouth every 6 (six) hours as needed for Pain (scale 7-10). [facility] butalbital- acetaminoph en-caff 50-325-40 mg tablet 04-11 00:00: 00 03-31 00:00 :00 No [id number] 1{tbl} Take 1 tablet by mouth every 6 (six) hours as needed for Pain (scale 7-10). [facility] butalbital- acetaminoph en-caff 50-325-40 mg tablet 04-11 00:00: 00 03-31 00:00 :00 No [id number] 1{tbl} Take 1 tablet by mouth every 6 (six) hours as needed for Pain (scale 7-10). [facility] butalbital- acetaminoph en-caff 50-325-40 mg tablet 04-11 00:00: 00 03-31 00:00 :00 No [id number] 1{tbl} Take 1 tablet by mouth every 6 (six) hours as needed for Pain (scale 7-10). [facility] butalbital- acetaminoph en-caff 50-325-40 mg tablet 04-11 00:00: 00 03-31 00:00 :00 No [id number] 1{tbl} Take 1 tablet by mouth every 6 (six) hours as needed for Pain (scale 7-10). [facility] ProAir HFA 108 (90 Base) MCG/ACT ProAir HFA 108 (90 Base) MCG/ACT 07-27 00:00: 00 No 2{puffs _as_nee ded} TID ProAir HFA 108 (90 Base) MCG/ACT ProAir HFA 108 (90 Base) MCG/ACT ProAir HFA 108 (90 Base) MCG/ACT 07-27 00:00: 00 No 2{puffs _as_nee ded} TID ProAir HFA 108 (90 Base) MCG/ACT ProAir HFA 108 (90 Base) MCG/ACT ProAir HFA 108 (90 Base) MCG/ACT 1- 00:00: 00 No 2{puffs _as_nee ded} TID ProAir HFA 108 (90 Base) MCG/ACT ProAir HFA 108 (90 Base) MCG/ACT ProAir HFA 108 (90 Base) MCG/ACT 1- 00:00: 00 No 2{puffs _as_nee ded} TID ProAir HFA 108 (90 Base) MCG/ACT metFORMIN 500 mg tablet 04-19 00:00: 00 Yes [id number] 500mg Take 1 tablet by mouth 2 (two) times daily with meals. [facility] metFORMIN 500 mg tablet 04-19 00:00: 00 Yes [id number] 500mg Take 1 tablet by mouth 2 (two) times daily with meals. [facility] metFORMIN 500 mg tablet 04-19 00:00: 00 Yes [id number] 500mg Take 1 tablet by mouth 2 (two) times daily with meals. [facility] metFORMIN 500 mg tablet 04-19 00:00: 00 Yes [id number] 500mg Take 1 tablet by mouth 2 (two) times daily with meals. [facility] metFORMIN 500 mg tablet 04-19 00:00: 00 Yes [id number] 500mg Take 1 tablet by mouth 2 (two) times daily with meals. [facility] metFORMIN 500 mg tablet 04-19 00:00: 00 Yes [id number] 500mg Take 1 tablet by mouth 2 (two) times daily with meals. [facility] metFORMIN 500 mg tablet 04-19 00:00: 00 Yes [id number] 500mg Take 1 tablet by mouth 2 (two) times daily with meals. [facility] metFORMIN 500 mg tablet 04-19 00:00: 00 Yes [id number] 500mg Take 1 tablet by mouth 2 (two) times daily with meals. [facility] metFORMIN 500 mg tablet 04-19 00:00: 00 Yes [id number] 500mg Take 1 tablet by mouth 2 (two) times daily with meals. [facility] metFORMIN 500 mg tablet 04-19 00:00: 00 Yes [id number] 500mg Take 1 tablet by mouth 2 (two) times daily with meals. [facility] metFORMIN 500 mg tablet 04-19 00:00: 00 Yes [id number] 500mg Take 1 tablet by mouth 2 (two) times daily with meals. [facility] metFORMIN 500 mg tablet 04-19 00:00: 00 Yes [id number] 500mg Take 1 tablet by mouth 2 (two) times daily with meals. [facility] metFORMIN 500 mg tablet 04-19 00:00: 00 Yes [id number] 500mg Take 1 tablet by mouth 2 (two) times daily with meals. [facility] metFORMIN 500 mg tablet 04-19 00:00: 00 Yes [id number] 500mg Take 1 tablet by mouth 2 (two) times daily with meals. [facility] metFORMIN 500 mg tablet 04-19 00:00: 00 Yes [id number] 500mg Take 1 tablet by mouth 2 (two) times daily with meals. [facility] metFORMIN 500 mg tablet 04-19 00:00: 00 Yes [id number] 500mg Take 1 tablet by mouth 2 (two) times daily with meals. [facility] metFORMIN 500 mg tablet 04-19 00:00: 00 Yes [id number] 500mg Take 1 tablet by mouth 2 (two) times daily with meals. [facility] metFORMIN 500 mg tablet 04-19 00:00: 00 Yes [id number] 500mg Take 1 tablet by mouth 2 (two) times daily with meals. [facility] metFORMIN 500 mg tablet 04-19 00:00: 00 Yes [id number] 500mg Take 1 tablet by mouth 2 (two) times daily with meals. [facility] metFORMIN 500 mg tablet 04-19 00:00: 00 Yes [id number] 500mg Take 1 tablet by mouth 2 (two) times daily with meals. [facility] metFORMIN 500 mg tablet 04-19 00:00: 00 Yes [id number] 500mg Take 1 tablet by mouth 2 (two) times daily with meals. [facility] metFORMIN 500 mg tablet 04-19 00:00: 00 Yes [id number] 500mg Take 1 tablet by mouth 2 (two) times daily with meals. [facility] metFORMIN 500 mg tablet 04-19 00:00: 00 Yes [id number] 500mg Take 1 tablet by mouth 2 (two) times daily with meals. [facility] metFORMIN 500 mg tablet 04-19 00:00: 00 08-12 00:00 :00 No [id number] 500mg Take 1 tablet by mouth 2 (two) times daily with meals. [facility] metFORMIN 500 mg tablet 04-19 00:00: 00 08-12 00:00 :00 No [id number] 500mg Take 1 tablet by mouth 2 (two) times daily with meals. [facility] metFORMIN 500 mg tablet 04-19 00:00: 08-12 00:00 :00 No [id number] 500mg Take 1 tablet by mouth 2 (two) times daily with meals. [facility] metFORMIN 500 mg tablet 04-19 00:00: 00 08-12 00:00 :00 No [id number] 500mg Take 1 tablet by mouth 2 (two) times daily with meals. [facility] metFORMIN 500 mg tablet 04-19 00:00: 08-12 00:00 :00 No [id number] 500mg Take 1 tablet by mouth 2 (two) times daily with meals. [facility] Metformin HCl 850 MG Metformin HCl 850 MG No Metformin HCl 850 MG Amlodipine Besylate 10 MG Amlodipine Besylate 10 MG No 1{table t} QD Amlodipine Besylate 10 MG Citalopram Hydrobromid e 20 MG Citalopram Hydrobromid e 20 MG No Citalopram Hydrobromi de 20 MG Potassium 99 MG Potassium 99 MG No 1{table t} QD Potassium 99 MG Citalopram Hydrobromid e 40 MG Citalopram Hydrobromid e 40 MG No QD Citalopram Hydrobromi de 40 MG BusPIRone HCl 15 MG BusPIRone HCl 15 MG No 1{table t} BusPIRone HCl 15 MG Multi For Him - Multi For Him - No Multi For Him - Valsartan-H ydrochlorot hiazide 320-25 MG Valsartan-H ydrochlorot hiazide 320-25 MG No Valsartan- Hydrochlor othiazide 320-25 MG Clonidine HCl 0.2 MG Clonidine HCl 0.2 MG No 1{table t} BID Clonidine HCl 0.2 MG Carvedilol 25 MG Carvedilol 25 MG No Carvedilol 25 MG Potassium 99 MG Potassium 99 MG No 1{table t} QD Potassium 99 MG Fish Oil 1200 MG Fish Oil 1200 MG No 1{capsu le} BID Fish Oil 1200 MG Metformin HCl 850 MG Metformin HCl 850 MG No Metformin HCl 850 MG Atorvastati n Calcium 20 MG Atorvastati n Calcium 20 MG No Atorvastat in Calcium 20 MG Iron 325 (65 Fe) MG Iron 325 (65 Fe) MG No 1{table t} QD Iron 325 (65 Fe) MG Topiramate 25 MG Topiramate 25 MG No 1{table t} QD Topiramate 25 MG Aspirin 81 81 MG Aspirin 81 81 MG No 1{table t} QD Aspirin 81 81 MG B-12 2500 MCG B-12 2500 MCG No B-12 2500 MCG Amlodipine Besylate 10 MG Amlodipine Besylate 10 MG No 1{table t} QD Amlodipine Besylate 10 MG BusPIRone HCl BusPIRone HCl Yes Kika Valdez TAKE ONE TABLET BY MOUTH TWICE A DAY [facility] Metformin HCl 850 MG Metformin HCl 850 MG No Metformin HCl 850 MG Multi For Him - Multi For Him - No Multi For Him - Valsartan-H ydrochlorot hiazide 320-25 MG Valsartan-H ydrochlorot hiazide 320-25 MG No Valsartan- Hydrochlor othiazide 320-25 MG Topiramate 25 MG Topiramate 25 MG No 1{table t} QD Topiramate 25 MG Potassium 99 MG Potassium 99 MG No 1{table t} QD Potassium 99 MG B-12 2500 MCG B-12 2500 MCG No B-12 2500 MCG BusPIRone HCl 15 MG BusPIRone HCl 15 MG No 1{table t} BusPIRone HCl 15 MG Amlodipine Besylate 10 MG Amlodipine Besylate 10 MG No 1{table t} QD Amlodipine Besylate 10 MG Carvedilol 25 MG Carvedilol 25 MG No Carvedilol 25 MG Citalopram Hydrobromid e 40 MG Citalopram Hydrobromid e 40 MG No QD Citalopram Hydrobromi de 40 MG Iron 325 (65 Fe) MG Iron 325 (65 Fe) MG No 1{table t} QD Iron 325 (65 Fe) MG Aspirin 81 81 MG Aspirin 81 81 MG No 1{table t} QD Aspirin 81 81 MG Clonidine HCl 0.2 MG Clonidine HCl 0.2 MG No 1{table t} BID Clonidine HCl 0.2 MG Atorvastati n Calcium 20 MG Atorvastati n Calcium 20 MG No Atorvastat in Calcium 20 MG Fish Oil 1200 MG Fish Oil 1200 MG No 1{capsu le} BID Fish Oil 1200 MG BusPIRone HCl 30 MG BusPIRone HCl 30 MG No BusPIRone HCl 30 MG Amlodipine Besylate 10 MG Amlodipine Besylate 10 MG No 1{table t} QD Amlodipine Besylate 10 MG Carvedilol 25 MG Carvedilol 25 MG No Carvedilol 25 MG Multi For Him - Multi For Him - No Multi For Him - Citalopram Hydrobromid e 20 MG Citalopram Hydrobromid e 20 MG No Citalopram Hydrobromi de 20 MG Aspirin 81 81 MG Aspirin 81 81 MG No 1{table t} QD Aspirin 81 81 MG Valsartan-H ydrochlorot hiazide 320-25 MG Valsartan-H ydrochlorot hiazide 320-25 MG No Valsartan- Hydrochlor othiazide 320-25 MG Metformin HCl 850 MG Metformin HCl 850 MG No Metformin HCl 850 MG Potassium 99 MG Potassium 99 MG No 1{table t} QD Potassium 99 MG Atorvastati n Calcium 20 MG Atorvastati n Calcium 20 MG No Atorvastat in Calcium 20 MG B-12 2500 MCG B-12 2500 MCG No B-12 2500 MCG Fish Oil 1200 MG Fish Oil 1200 MG No 1{capsu le} BID Fish Oil 1200 MG Iron 325 (65 Fe) MG Iron 325 (65 Fe) MG No 1{table t} QD Iron 325 (65 Fe) MG Clonidine HCl 0.2 MG Clonidine HCl 0.2 MG No 1{table t} BID Clonidine HCl 0.2 MG B-12 2500 MCG B-12 2500 MCG No B-12 2500 MCG Aspirin 81 81 MG Aspirin 81 81 MG No 1{table t} QD Aspirin 81 81 MG BusPIRone HCl 30 MG BusPIRone HCl 30 MG No BusPIRone HCl 30 MG Multi For Him - Multi For Him - No Multi For Him - Valsartan-H ydrochlorot hiazide 320-25 MG Valsartan-H ydrochlorot hiazide 320-25 MG No Valsartan- Hydrochlor othiazide 320-25 MG Atorvastati n Calcium 20 MG Atorvastati n Calcium 20 MG No Atorvastat in Calcium 20 MG Carvedilol 25 MG Carvedilol 25 MG No Carvedilol 25 MG Clonidine HCl 0.2 MG Clonidine HCl 0.2 MG No 1{table t} BID Clonidine HCl 0.2 MG Iron 325 (65 Fe) MG Iron 325 (65 Fe) MG No 1{table t} QD Iron 325 (65 Fe) MG Fish Oil 1200 MG Fish Oil 1200 MG No 1{capsu le} BID Fish Oil 1200 MG Vital Signs Vital Name Observation Time Observation Value Comments S [email or web address] Body weight 2023-08-16 15:05:00 135.172 kg [facility] BMI 2023-08-16 15:05:00 35.34 kg/m2 [facility] Systolic blood pressure 2023-07-26 20:54:00 146 mm[Hg] [facility] Diastolic blood pressure 2023-07-26 20:54:00 94 mm[Hg] [facility] hospital Heart rate 2023-07-26 20:54:00 73 /min [facility] Body temperature 2023-07-26 20:53:00 36.61 Rox [facility] Respiratory rate 2023-07-26 20:53:00 20 /min [facility] Body height 2023-07-26 20:53:00 195.6 cm [facility] Body weight 2023-07-26 20:53:00 135.58 kg [facility] BMI 2023-07-26 20:53:00 35.44 kg/m2 [facility] Oxygen saturation in Arterial blood by Pulse oximetry 2023-07-26 20:53:00 97 /min [facility] Body weight 2023-06-14 16:00:00 129.275 kg [facility] BMI 2023-06-14 16:00:00 34.69 kg/m2 [facility] Systolic blood pressure 2023-06-03 17:21:00 149 mm[Hg] [facility] acute hospital Diastolic blood pressure 2023-06-03 17:21:00 72 mm[Hg] [facility] acute hospital Heart rate 2023-06-03 17:21:00 67 /min [facility] Body temperature 2023-06-03 17:21:00 36.67 Rox [facility] Respiratory rate 2023-06-03 17:21:00 18 /min [facility] Oxygen saturation in Arterial blood by Pulse oximetry 2023-06-03 17:21:00 96 /min [facility] Body height 2023-06-03 14:12:00 193 cm [facility] Body weight 2023-06-03 14:12:00 129.366 kg [facility] BMI 2023-06-03 14:12:00 34.72 kg/m2 [facility] Systolic blood pressure 2023-05-27 19:43:00 168 mm[Hg] [facility] acute hospital Diastolic blood pressure 2023-05-27 19:43:00 102 mm[Hg] [facility] acute hospital Heart rate 2023-05-27 19:42:00 81 /min [facility] Body temperature 2023-05-27 19:42:00 37.28 Rox [facility] Respiratory rate 2023-05-27 19:42:00 20 /min [facility] Body height 2023-05-27 19:42:00 193 cm [facility] Body weight 2023-05-27 19:42:00 131.09 kg [facility] BMI 2023-05-27 19:42:00 35.18 kg/m2 [facility] Oxygen saturation in Arterial blood by Pulse oximetry 2023-05-27 19:42:00 97 /min [facility] Systolic blood pressure 2023-03-21 19:00:00 145 mm[Hg] [facility] acute hospital Diastolic blood pressure 2023-03-21 19:00:00 77 mm[Hg] [facility] acute hospital Heart rate 2023-03-21 19:00:00 71 /min [facility] Body temperature 2023-03-21 19:00:00 38.39 Rox [facility] Respiratory rate 2023-03-21 19:00:00 20 /min [facility] Oxygen saturation in Arterial blood by Pulse oximetry 2023-03-21 13:00:00 94 /min [facility] acute hospital Body height 2023-03-21 06:00:00 195.6 cm [facility] Body weight 2023-03-20 22:13:00 125.193 kg [facility] BMI 2023-03-20 22:13:00 32.73 kg/m2 [facility] Systolic blood pressure 2023-02-16 16:15:00 114 mm[Hg] [facility] acute hospital Diastolic blood pressure 2023-02-16 16:15:00 60 mm[Hg] [facility] acute hospital Heart rate 2023-02-16 16:15:00 80 /min [facility] Body temperature 2023-02-16 16:15:00 36.5 Rox [facility] Respiratory rate 2023-02-16 16:15:00 17 /min [facility] Oxygen saturation in Arterial blood by Pulse oximetry 2023-02-16 16:15:00 94 /min [facility] Body weight 2023-02-14 18:00:00 120 kg [facility] BMI 2023-02-14 18:00:00 31.37 kg/m2 [facility] Body height 2023-02-14 04:21:00 195.6 cm [facility] Systolic blood pressure 2023-01-18 18:25:00 144 mm[Hg] General acute hospital Diastolic blood pressure 2023-01-18 18:25:00 85 mm[Hg] General acute hospital Heart rate 2023-01-18 18:25:00 90 /min [facility] Body temperature 2023-01-18 18:25:00 35.83 Rox [facility] Body height 2023-01-18 18:25:00 180.3 cm [facility] weight 2023-01-18 18:25:00 123.378 kg [facility] BMI 2023-01-18 18:25:00 37.94 kg/m2 [facility] Oxygen saturation in Arterial blood by Pulse oximetry 2023-01-18 18:25:00 96 /min General acute hospital Body weight 2022-12-14 15:26:00 121.11 kg [facility] BMI 2022-12-14 15:26:00 32.50 kg/m2 [facility] Systolic blood pressure 2022-12-01 20:22:00 139 mm[Hg] General acute hospital Diastolic blood pressure 2022-12-01 20:22:00 80 mm[Hg] General acute hospital Heart rate 2022-12-01 20:22:00 66 /min [facility] Respiratory rate 2022-12-01 20:22:00 18 /min [facility] Oxygen saturation in Arterial blood by Pulse oximetry 2022-12-01 20:22:00 98 /min General acute hospital Body temperature 2022-12-01 13:57:00 36.33 Rox [facility] Body height 2022-12-01 13:57:00 193 cm [facility] Body weight 2022-12-01 13:57:00 121.11 kg [facility] BMI 2022-12-01 13:57:00 32.50 kg/m2 [facility] Systolic blood pressure 2022-10-26 12:36:00 143 mm[Hg] General acute hospital Diastolic blood pressure 2022-10-26 12:36:00 88 mm[Hg] General acute hospital Heart rate 2022-10-26 12:36:00 59 /min [facility] Oxygen saturation in Arterial blood by Pulse oximetry 2022-10-26 12:36:00 100 /min General acute hospital Body temperature 2022-10-26 12:34:00 36.72 Rox [facility] Respiratory rate 2022-10-26 12:34:00 16 /min [facility] Body height 2022-10-25 13:48:00 193 cm [facility] Body weight 2022-10-25 13:48:00 118.842 kg [facility] BMI 2022-10-25 13:48:00 31.89 kg/m2 [facility] Systolic blood pressure 2022-06-10 16:10:00 137 mm[Hg] General acute hospital Diastolic blood pressure 2022-06-10 16:10:00 89 mm[Hg] General acute hospital Heart rate 2022-06-10 16:09:00 84 /min [facility] Body temperature 2022-06-10 16:09:00 36.06 Rox [facility] Respiratory rate 2022-06-10 16:09:00 19 /min [facility] Body height 2022-06-10 16:09:00 193 cm [facility] Body weight 2022-06-10 16:09:00 108.138 kg [facility] BMI 2022-06-10 16:09:00 29.02 kg/m2 [facility] Oxygen saturation in Arterial blood by Pulse oximetry 2022-06-10 16:09:00 100 /min General acute hospital Systolic blood pressure 2022-06-03 18:24:00 129 mm[Hg] General acute hospital Diastolic blood pressure 2022-06-03 18:24:00 73 mm[Hg] General acute hospital Heart rate 2022-06-03 18:24:00 68 /min [facility] Respiratory rate 2022-06-03 18:24:00 20 /min [facility] Oxygen saturation in Arterial blood by Pulse oximetry 2022-06-03 18:24:00 99 /min General acute hospital Body temperature 2022-06-03 14:34:00 36.44 Rox [facility] Body height 2022-06-03 14:34:00 190.5 cm [facility] Body weight 2022-06-03 14:34:00 107.049 kg [facility] BMI 2022-06-03 14:34:00 29.50 kg/m2 [facility] Systolic blood pressure 2022-05-20 21:37:00 141 mm[Hg] General acute hospital Diastolic blood pressure 2022-05-20 21:37:00 93 mm[Hg] General acute hospital Heart rate 2022-05-20 21:37:00 53 /min [facility] Respiratory rate 2022-05-20 21:37:00 16 /min [facility] Oxygen saturation in Arterial blood by Pulse oximetry 2022-05-20 21:37:00 99 /min General acute hospital Body temperature 2022-05-20 14:12:00 36.28 Rox [facility] Body height 2022-05-20 14:12:00 193 cm [facility] Body weight 2022-05-20 14:12:00 101.152 kg [facility] BMI 2022-05-20 14:12:00 27.14 kg/m2 [facility] Systolic blood pressure 2022-05-08 18:04:00 135 mm[Hg] General acute hospital Diastolic blood pressure 2022-05-08 18:04:00 92 mm[Hg] General acute hospital Heart rate 2022-05-08 18:04:00 68 /min [facility] Body temperature 2022-05-08 18:04:00 36.72 Rox [facility] Respiratory rate 2022-05-08 18:04:00 19 /min [facility] Oxygen saturation in Arterial blood by Pulse oximetry 2022-05-08 18:04:00 100 /min General acute hospital Body height 2022-05-05 21:15:00 193 cm [facility] Body weight 2022-05-05 14:17:00 98.884 kg [facility] BMI 2022-05-05 14:17:00 26.54 kg/m2 [facility] Systolic blood pressure 2022-04-10 01:03:00 152 mm[Hg] General acute hospital Diastolic blood pressure 2022-04-10 01:03:00 102 mm[Hg] General acute hospital Heart rate 2022-04-10 01:03:00 74 /min [facility] Body temperature 2022-04-10 01:03:00 36.56 Rox [facility] Oxygen saturation in Arterial blood by Pulse oximetry 2022-04-09 21:44:00 98 /min General acute hospital Respiratory rate 2022-04-09 16:46:00 20 /min [facility] Body height 2022-04-01 03:47:00 193 cm [facility] Body weight 2022-04-01 03:47:00 99.791 kg [facility] BMI 2022-04-01 03:47:00 26.78 kg/m2 [facility] Body height 2022-03-23 15:45:00 193 cm [facility] Body weight 2022-03-23 15:45:00 105.235 kg [facility] BMI 2022-03-23 15:45:00 28.24 kg/m2 [facility] Systolic blood pressure 2022-03-11 15:06:00 149 mm[Hg] General acute hospital Diastolic blood pressure 2022-03-11 15:06:00 90 mm[Hg] General acute hospital Heart rate 2022-03-11 15:06:00 71 /min [facility] Body weight 2022-03-11 15:06:00 105.235 kg [facility] BMI 2022-03-11 15:06:00 28.24 kg/m2 [facility] height 2020-08-07 16:40:00 76 [in_i] Commo n [facility] weight 2020-08-07 16:40:00 243.2 [lb_av] Co mmon [facility] temperature 2020-08-07 16:40:00 98.3 [degF] Com mon [facility] bmi 2020-08-07 16:40:00 29.6 kg/m2 Commo n [facility] oximetry 2020-08-07 16:40:00 98 % Commo n [facility] respiratory rate 2020-08-07 16:40:00 16 /min Common [facility] blood pressure systolic 2020-08-07 16:40:00 139 mm[Hg] [facility] blood pressure diastolic 2020-08-07 16:40:00 71 mm[Hg] [facility] height 2020-05-08 09:00:00 76 [in_i] Commo n [facility] weight 2020-05-08 09:00:00 258.8 [lb_av] Co [facility] temperature 2020-05-08 09:00:00 98.1 [degF] Com [facility] bmi 2020-05-08 09:00:00 31.5 kg/m2 Commo n [facility] oximetry 2020-05-08 09:00:00 98 % Commo n [facility] respiratory rate 2020-05-08 09:00:00 16 /min [facility] blood pressure systolic 2020-05-08 09:00:00 128 mm[Hg] Common [facility] blood pressure diastolic 2020-05-08 09:00:00 72 mm[Hg] Common [facility] height 2020-04-17 08:20:00 76 [in_i] Commo n [facility] weight 2020-04-17 08:20:00 261.6 [lb_av] Co mmon [facility] temperature 2020-04-17 08:20:00 97.8 [degF] Com [facility] bmi 2020-04-17 08:20:00 31.84 kg/m2 Comm on [facility] oximetry 2020-04-17 08:20:00 98 % Commo n [facility] respiratory rate 2020-04-17 08:20:00 16 /min [facility] blood pressure systolic 2020-04-17 08:20:00 126 mm[Hg] [facility] blood pressure diastolic 2020-04-17 08:20:00 80 mm[Hg] [facility] Procedures Procedure Date / Time Performed Performing Clinician Source AUTOMATED VISUAL FIELD, EXTENDED - OU - BOTH EYES 2023-08-16 16:32:06 Marlon Bush [facility] REFERRAL- REQUEST/RESPONSE 2023-07-26 06:01:00 Doctor Unassigned, [place] [facility] OCT, OPTIC NERVE - OU - BOTH EYES 2023-06-14 16:49:49 Marlon Bush [facility] INSURANCE CORRESPONDENCE 2023-06-14 06:01:00 Doctor Unassigned, [place] [facility] COMP. METABOLIC PANEL (86495) 2023-06-03 14:15:00 Azalia [facility] CBC WITH DIFF 2023-06-03 14:15:00 Azalia [facility] CD19 SUBSET ASSAY 2023-06-03 14:15:00 Azalia [facility] MINI-MENTAL STATE EXAM 2023-05-27 05:01:00 Doctor Unassigned, [place] [facility] XR CHEST 1 VW 2023-03-21 08:00:00 Moose [facility] LACTATE DEHYDROGENASE 2023-03-21 06:10:00 Moose [facility] D-DIMER 2023-03-21 06:10:00 Moose [facility] LACTIC ACID WHOLE BLOOD 2023-03-21 02:52:00 Joan Waite [facility] URINALYSIS 2023-03-21 01:57:00 Joan Waite [facility] ELECTROENCEPHALOGRAM 2023-03-21 00:00:00 Trish Mondragon [facility] CT HEAD WO CONTRAST 2023-03-20 23:59:18 Joan Waite [facility] COVID-19 (ID NOW RAPID TESTING) 2023-03-20 22:42:00 Joan Waite [facility] LAB ONLY COVID INTERPRETATION 2023-03-20 22:42:00 Joan Waite [facility] BLOOD CULTURE SCREEN 2023-03-20 22:34:00 Joan Waite [facility] MAGNESIUM 2023-03-20 22:34:00 Joan Waite [facility] FERRITIN SERUM 2023-03-20 22:34:00 Moose, [facility] C-REACTIVE PROTEIN 2023-03-20 22:34:00 Moose, [facility] COMP. METABOLIC PANEL ([id number]) 2023-03-20 22:34:00 Jona Waite [facility] VALPROIC ACID, FREE 2023-03-20 22:34[facility]00 [facility] 2023-03-20 22:34:00 Joan Waite [facility] PROCALCITONIN 2023-03-20 22:34:00 Moose [facility] CONSENT/REFUSAL FOR DIAGNOSI S AND TREATMENT 2023-03-20 22:00:37 Doctor Unassigned, [place] [facility] EXTERNAL PROVIDER RECORDS 2023-03-03 05:01:00 Doctor Unassigned, [place] [facility] US DUPLEX VENOUS ARM RIGHT - BY VASCULAR LAB 2023-02-15 20:33:00 Parminder [facility] PHOSPHORUS 2023-02-15 10:20:00 [facility] MAGNESIUM 2023-02-15 10:20:00 [facility] HEPATIC FUNCTION PANEL ([id number]) (ALB,T.PRO,BILI T,BU/BC,ALT,AST,ALK PHOS) 2023-02-15 10:20:00 Parminder [facility] BASIC METABOLIC PANEL (NA, K , CL, CO2, GLUCOSE, BUN, CREATININE, CA) 2023-02-15 10:20:00 [facility] VALPROIC ACID, FREE 2023-02-15 10:20:00 Parminder [facility] CBC WITH DIFF 2023-02-15 10:20:00 [facility], [facility] SYPHILIS IGG/IGM 2023-02-15 10:20:00 Luis Alberto Rosario [facility] POCT GLUCOSE (AUTOMATED) 2023-02-14 21:51:00 Sigifredo [place] [facility] POCT GLUCOSE (AUTOMATED) 2023-02-14 17:31:00 Sigifredo [place] [facility] LOWER EXTREMITY ARTERIAL DUPLEX BILATERAL - BY VASCULAR LAB 2023-02-14 17:26:00 Sigifredo [place] [facility] DUPLEX VENOUS LEGS BILATERAL - BY VASCULAR LAB 2023-02-14 15:59:00 Sigifredo [place] [facility] CT HEAD WO CONTRAST 2023-02-14 15:30:[address] [facility] [address] STROKE ANGIOGRAM HEAD 2023-02-14 15:30:[address] [facility] [address] STROKE ANGIOGRAM NECK 2023-02-14 15:30:00 [facility] THYROID STIMULATING HORMONE 2023-02-14 06:49:00 Ludy [facility] BASIC METABOLIC PANEL (NA, K , CL, CO2, GLUCOSE, BUN, CREATININE, CA) 2023-02-14 06:49:00 Ludy [facility] CBC WITH DIFF 2023-02-14 06:49:00 Ludy [facility] MRSA / MSSA SCREEN BY JEREMY DE LEON 2023-02-14 04:26:00 Ludy [facility] OCT, OPTIC NERVE - OU - BOTH EYES 2022-12-14 16:27:57 Marlon Bush [facility] AUTOMATED VISUAL FIELD, EXTENDED - OU - BOTH EYES 2022-12-14 16:27:26 Marlon Bush [facility] MEDICATION CORRESPONDENCE 2022-12-08 05:01:00 Doctor Unassigned, [place] [facility] EXTERNAL PROVIDER RECORDS 2022-11-02 05:01:00 Doctor Unassigned, [place] [facility] AUTHORIZATION FOR RELEASE OF PHI 2022-10-30 05:01:00 Doctor Unassigned, [place] [facility] POCT GLUCOSE (AUTOMATED) 2022-10-26 13:13:00 Masel, David [facility] POCT GLUCOSE (AUTOMATED) 2022-10-26 01:19:00 David Tavera [facility] POCT GLUCOSE (AUTOMATED) 2022-10-25 22:09:00 David Tavera [facility] AMMONIA, PLASMA 2022-10-25 17:56:00 Desi Robertsshmi [facility] POCT GLUCOSE (AUTOMATED) 2022-10-25 17:29:00 David Tavera [facility] CT HEAD WO CONTRAST 2022-10-25 16:34:36 Desi Robertsshmi [facility] XR CHEST 1 VW 2022-10-25 14:56:00 Desi Roberts [facility] HEPATIC FUNCTION PANEL ([id number]) (ALB,T.PRO,BILI T,BU/BC,ALT,AST,ALK PHOS) 2022-10-25 14:42:00 [facility] BASIC METABOLIC PANEL (NA, K , CL, CO2, GLUCOSE, BUN, CREATININE, CA) 2022-10-25 14:42:00 Desi Robertsshmi [facility] VALPROIC ACID, FREE 2022-10-25 14:42:00 Desi Robertsshmi [facility] ETHANOL 2022-10-25 14:42:00 [facility]UG (IMMUNOASSAY) - COMPREHENSIVE DRUG SCREEN 2022-10-25 14:42:00 Desi Robertsshmi [facility] CBC WITH DIFF 2022-10-25 14:42:00 [facility] 2022-10-25 14:42:00 Desi Robertsshmi [facility] EXTRA TUBE URINE CULTURE 2022-10-25 14:42:00 Yancy Singh [facility] PROCALCITONIN 2022-10-25 14:42:00 Desi Roberts [facility] ELECTROENCEPHALOGRAM 2022-10-25 00:00:00 Desi Roberts [facility] CONSENT FOR MAGGIE E TREATMENT FORM 2022-09-01 19:16:42 Doctor Unassigned, [place] [facility] PHYSICIAN ORDERS 2022-05-20 05:01:00 Doctor Unassigned, [place] [facility] POCT GLUCOSE (AUTOMATED) 2022-05-08 18:06:00 Armen Cox [facility] DUPLEX VENOUS LEGS BILATERAL - BY VASCULAR LAB 2022-05-08 13:35:40 Gauri Smith [facility] POCT GLUCOSE (AUTOMATED) 2022-05-08 13:20:00 [facility] POCT GLUCOSE (AUTOMATED) 2022-05-08 01:07:00 Armen Cox [facility] POCT GLUCOSE (AUTOMATED) 2022-05-07 22:54:00 Armen Cox [facility] BASIC METABOLIC PANEL (NA, K , CL, CO2, GLUCOSE, BUN, CREATININE, CA) 2022-05-07 18:52:00 Christy Taylor [facility] CBC WITH DIFF 2022-05-07 18:52:00 [facility] 2022-05-07 13:51:00 Armen Cox [facility] MR BRAIN W WO CONTRAST 2022-05-07 03:11:01 Dixon Taylorhilary [facility] POCT GLUCOSE (AUTOMATED) 2022-05-07 01:02:00 [facility] POCT GLUCOSE (AUTOMATED) 2022-05-06 21:51:00 Armen Cox [facility] CBC WITH DIFF 2022-05-06 20:54:00 Ramonita Rodrigues [facility] XR CHEST 1 VW 2022-05-06 20:41:00 Ramonita Rodrigues [facility] POCT GLUCOSE (AUTOMATED) 2022-05-06 17:02:00 CoxArmen aguirre [facility] POCT GLUCOSE (AUTOMATED) 2022-05-06 13:47:00 [facility] URINALYSIS 2022-05-06 10:51:00 Desi Robertsshmi [facility] URINE CULTURE 2022-05-06 10:51:00 Desi Robertsshmi [facility] BLOOD CULTURE SCREEN 2022-05-06 05:12:00 Desi Robertsshmi [facility] GALV ONLY - INFLUENZA A B RS V PCR 2022-05-06 05:12:00 Desi Roberts Nanda [facility] POCT GLUCOSE (AUTOMATED) 2022-05-06 01:42:00 Armen Cox [facility] POCT GLUCOSE (AUTOMATED) 2022-05-05 22:38:00 Armen Cox [facility] HB ECG ROUTINE & RHYTHM STRIP 2022-05-05 21:56:24 Claudia [facility] HEPATIC FUNCTION PANEL ([id number]) (ALB,T.PRO,BILI T,BU/BC,ALT,AST,ALK PHOS) 2022-05-05 19:27:00 Claudia [facility] LIPID PANEL ([id number])(TOTAL CHOLESTEROL, TRIGLYCERIDES, HDL) 2022-05-05 19:27:00 Claudia [facility] VALPROIC ACID, FREE 2022-05-05 19:27:00 Claudia [facility] GLYCOSYLATED HEMOGLOBIN (A1C) 2022-05-05 19:27:00 Claudia [facility] EKG-12 LEAD 2022-05-05 16:11:34 Ashly Collier [facility] URINALYSIS 2022-05-05 15:17:00 Ashly Collier [facility] CT STROKE PERFUSION W CONTRAST 2022-05-05 15:08:44 [facility] CT STROKE HEAD WO CONTRAST 2022-05-05 14:45:05 Nando [facility] CT STROKE ANGIOGRAM HEAD 2022-05-05 14:45:05 Nando [facility] CT STROKE ANGIOGRAM NECK 2022-05-05 14:45:05 Nando [facility] TROPONIN I 2022-05-05 14:32:00 Nando [facility] BASIC METABOLIC PANEL (NA, K , CL, CO2, GLUCOSE, BUN, CREATININE, CA) 2022-05-05 14:32:00 Nando [facility] CBC WITHOUT DIFF 2022-05-05 14:32:00 Nando [facility] PROTHROMBIN TIME / INR 2022-05-05 14:32:00 Nando [facility] ACTIVATED PARTIAL THRMPLAS BOUBACAR 2022-05-05 14:32:00 Nando [facility] EXTRA TUBE LAV 2022-05-05 14:32:00 Nando [facility] CONSENT/REFUSAL FOR DIAGNOSI S AND TREATMENT 2022-05-05 14:18:31 Doctor Unassigned, [place] [facility] ELECTROENCEPHALOGRAM 2022-05-05 00:00:00 Christy Taylor [facility] MAGNESIUM 2022-04-06 08:15:00 Gentry [facility] BASIC METABOLIC PANEL (NA, K , CL, CO2, GLUCOSE, BUN, CREATININE, CA) 2022-04-06 08:15:00 Gentry [facility] CBC WITH DIFF 2022-04-06 08:15:00 Gentry [facility] MAGNESIUM 2022-04-03 09:15:00 Elti [facility] BASIC METABOLIC PANEL (NA, K , CL, CO2, GLUCOSE, BUN, CREATININE, CA) 2022-04-03 09:15:00 Gentry [facility] CBC WITH DIFF 2022-04-03 09:15:00 Gentry [facility] BLOOD CULTURE SCREEN 2022-04-02 23:26:00 Gentry [facility] XR CHEST 1 VW 2022-04-02 20:36:00 Eljoseem [facility] URINALYSIS 2022-04-02 20:25:00 Elti [facility] BLOOD CULTURE SCREEN 2022-04-02 20:12:00 Gentry [facility] XR CHEST 2 VW 2022-04-01 15:06:00 Christy Taylor [facility] CBC WITH DIFF 2022-04-01 11:05:00 [facility] 2022-04-01 11:05:[address] [facility] ANTICARDIOLIPIN ANTIBODIES 2022-04-01 10:39:[facility] ANTI-B2 GLYCOPROTEIN I AB 2022-04-01 10:39:00 [facility] MR BRAIN WO CONTRAST 2022-03-31 23:47:22 David Tavera [facility] COVID-19 (ID NOW RAPID TESTING) 2022-03-31 22:10:00 Keturah Patricia [facility] LAB ONLY COVID INTERPRETATION 2022-03-31 22:10:00 Keturah Patricia [facility] IMMUNOGLOBULIN G A M PANEL 2022-03-31 18:06:[address] [facility] BASIC METABOLIC PANEL (NA, K , CL, CO2, GLUCOSE, BUN, CREATININE, CA) 2022-03-31 18:06:00 Joyce Aguayo [facility] CBC WITH DIFF 2022-03-31 18:06:00 Christy Taylor [facility] ANTI-NUCLEAR ANTIBODY SCREEN 2022-03-31 18:06:00 Dixon Taylorhilary [facility] ANTI-SSA(RO) 2022-03-31 18:06:00 Myke Laurenrique [facility] ANTI-NUCLEAR ANTIBODY-PATHOLOGIST INTERPRETATION 2022-03-31 18:06:00 Christy Taylor [facility] XR CHEST 1 VW 2022-03-31 16:15:00 Keturah Patricia [facility] URINE DRUG (IMMUNOASSAY) - COMPREHENSIVE DRUG SCREEN 2022-03-31 15:52:00 Keturah Patricia [facility] URINALYSIS 2022-03-31 15:52:00 Akin Wood [facility] AMMONIA, PLASMA 2022-03-31 15:41:00 Keturah Patricia [facility] C-REACTIVE PROTEIN 2022-03-31 15:41:00 Keturah Patricia [facility] FREE T4 2022-03-31 15:41:00 David Tavera [facility] VALPROIC ACID, TOTAL 2022-03-31 15:41:00 Christy Taylor [facility] VALPROIC ACID, FREE 2022-03-31 15:41:00 Christy Taylor [facility] CBC WITHOUT DIFF 2022-03-31 15:41:00 Akin Wood [facility] SEDIMENTATION RATE 2022-03-31 15:41:00 Keturah Patricia [facility] PROTHROMBIN TIME / INR 2022-03-31 15:41:00 Akin Wood [facility] ACTIVATED PARTIAL THRMPLAS BOUBACAR 2022-03-31 15:41:00 Akin Wood [facility] HB ECG ROUTINE & RHYTHM STRIP 2022-03-31 15:35:57 Akin Wood [facility] CT STROKE ANGIOGRAM HEAD 2022-03-31 15:32:41 Akin Wood [facility] CT STROKE ANGIOGRAM NECK 2022-03-31 15:32:41 Akin Wood [facility] CT STROKE PERFUSION W CONTRAST 2022-03-31 15:32:41 Christy Taylor [facility] [facility] PHOSPHORUS 2022-03-31 15:13:00 David Tavera [facility] CREATINE KINASE 2022-03-31 15:13:00 David Tavera [facility] MAGNESIUM 2022-03-31 15:13:00 David Tavera [facility] TROPONIN I 2022-03-31 15:13:00 Akin Wood [facility] TRIIODOTHYRONINE 2022-03-31 15:13:00 aDvid Tavera [facility] THYROID STIMULATING HORMONE 2022-03-31 15:13:00 Christy Taylor [facility] BASIC METABOLIC PANEL (NA, K , CL, CO2, GLUCOSE, BUN, CREATININE, CA) 2022-03-31 15:13:00 Akin Wood [facility] HEPATITIS B SURFACE ANTIGEN 2022-03-31 15:13:00 Keith Lauren [facility] HEPATITIS B CORE ANTIBODY IGM 2022-03-31 15:13:00 Keith Lauren [facility] CT STROKE HEAD WO CONTRAST 2022-03-31 15:08:30 Akin Wood [facility] CONSENT/REFUSAL FOR DIAGNOSI S AND TREATMENT 2022-03-31 14:47:03 Doctor Unassigned, [place] [facility] ELECTROENCEPHALOGRAM 2022-03-31 00:00:00 Christy Taylor [facility] OPHTHALMOLOGY DIAGNOSTIC TEST 2022-03-23 05:01:00 Doctor Unassigned, [place] [facility] OU VISUAL FIELD EXAM EXTENDE D (30-2), BOTH EYES 2022-03-23 00:00:00 Srinivas Miguel [facility] Encounters Start Date/Time End Date/Time Encounter Type Admission Type Attending [facility] Care Facility Care Department Encounter ID Source 2021-08-19 13:54:35 Outpatient Keny Rutledge [facility] [id number] [facility] 2021-08-19 13:53:31 [facility] [id number] [facility] 2021-08-19 12:20:16 Outpatient Kika Valdez [facility] [id number] [facility] 2021-08-19 11:55:20 Outpatient Kika Valdez [facility] [id number] [facility] 2021-08-19 10:59:22 Outpatient Kika Valdez [facility] [id number] [facility] 2023-11-04 09:00:00 2023-11-04 09:00:00 Outpatient R [facility] [id number] [facility] 2023-08-16 08:45:00 2023-08-16 10:38:18 Outpatient R MARLON BUSH [facility] [id number] General acute hospital 2023-08-16 08:45:00 2023-08-16 10:38:18 Office Visit Marlon Bush [facility] [employer] [place] [facility]. 1.840.114 350.1.13.10 4.2.7.2.686 [id number] [facility] 2023-07-26 15:30:00 2023-07-26 15:37:08 Outpatient R JUDE GONZALEZ [facility] [id number] [facility] 2023-07-26 15:30:00 2023-07-26 15:37:08 Office Visit Jude Gonzalez [facility] 1.840.114 350.1.13.10 4.2.7.2.686 [id number] [facility] 2023-07-26 00:00:00 2023-07-26 00:00:00 Orders Only Doctor Unassigned, [place] [facility] 1.840.114 350.1.13.10 4.2.7.2.686 [id number] [facility] 2023-06-17 00:00:00 2023-06-17 00:00:00 Telephone Elin Vieyra [facility] 1.2840.114 350.1.13.10 4.2.7.2.686 [id number] [facility] 2023-06-17 00:00:00 2023-06-17 00:00:00 Refill Angela German [facility] 1..114 350.1.13.10 4.2.7.2.686 [id number] [facility] 2023-06-14 09:30:00 2023-06-14 10:48:42 Outpatient R MARLON BUSH [facility] [id number] General acute hospital 2023-06-14 09:30:00 2023-06-14 10:48:42 Office Visit Marlon Bush [facility] [employer] [place] [facility] 1..114 350.1.13.10 4.2.7.2.686 [id number] [facility] 2023-06-14 00:00:00 2023-06-14 00:00:00 Orders Only Doctor Unassigned, [place] [facility] 1..114 350.1.13.10 4.2.7.2.686 [id number] [facility] 2023-06-03 08:45:00 2023-06-03 13:54:05 [id number] 2023-06-03 08:45:00 2023-06-03 13:54:05 Nurse Visit 4, Arina-Vl Infusion Chair Azalia [facility] ..114 350.1.13.10 4.2.7.2.686 [id number] [facility] 2023-06-02 00:00:00 2023-06-02 00:00:00 Telephone Elin Vieyra [facility] 1..114 350.1.13.10 4.2.7.2.686 [id number] [facility] 2023-05-27 16:00:00 2023-05-27 16:15:00 Preschool Director [facility] 1.2.840.114 350.1.13.10 4.2.7.2.686 [id number] [facility] 2023-05-27 15:00:00 2023-05-27 15:45:45 Outpatient R ELIN VIEYRA [facility] [id number] [facility] 2023-05-27 15:00:00 2023-05-27 15:45:45 Office Visit Elin Vieyra [facility] 1.2840.114 350.1.13.10 4.2.7.2.686 [id number] [facility] 2023-05-27 00:00:00 2023-05-27 00:00:00 Orders Only Doctor Unassigned, [place] [facility] 1.2840.114 350.1.13.10 4.2.7.2.686 [id number] [facility] 2023-03-22 00:00:00 2023-03-22 00:00:00 Transition of Care Jewell Mckeon [facility] 1.2840.114 350.1.13.10 4.2.7.2.686 [id number] [facility] 2023-03-20 17:18:00 2023-03-21 17:40:00 Outpatient X [facility] [id number] [facility] 2023-03-20 17:18:00 2023-03-21 17:40:00 Hospital Joan Christie William B Amin, Saad M. Sonstein, Lindsay K [facility] 1.2840.114 350.1.13.10 4.2.7.2.686 [id number] [facility] 2023-03-03 00:00:00 2023-03-03 00:00:00 Orders Only Doctor Unassigned, [place] [facility] 1.2.840.114 350.1.13.10 4.2.7.2.686 [id number] [facility] 2023-02-17 00:00:00 2023-02-17 00:00:00 Transition of Care Leslie Palm 1.2.840.114 350.1.13.10 4.2.7.2.686 [id number] [facility] 2023-02-17 00:00:00 2023-02-17 00:00:00 Telephone [facility] 1.2.840.114 350.1.13.10 4.2.7.2.686 [id number] [id number] [facility] 2023-02-13 22:56:00 2023-02-16 11:59:00 Inpatient U [facility] [id number] [facility] 2023-02-13 22:56:00 2023-02-16 11:59:00 Hospital Encounter Sigifredo [place], [facility] 1.2.840.114 350.1.13.10 4.2.7.2.686 [id number] [facility] 2023-01-18 15:15:00 2023-01-18 15:30:00 Preschool Director Visit Pcp-Lab [facility] 1.2.840.114 350.1.13.10 4.2.7.2.686 [id number] [facility] 2023-01-18 13:30:00 2023-01-18 15:02:55 Outpatient R [facility] [id number] [facility] 2023-01-18 13:30:00 2023-01-18 15:02:55 Office Visit [facility] 1.2.840.114 350.1.13.10 4.2.7.2.686 [id number] [facility] 2022-12-14 10:00:00 2022-12-14 11:36:44 Outpatient R MARLON BUSH [facility] [id number] General acute hospital 2022-12-14 10:00:00 2022-12-14 11:36:44 Office Visit Marlon Bush [facility]. 1..114 350.1.13.10 4.2.7.2.686 [id number] [facility] 2022-12-08 00:00:00 2022-12-08 00:00:00 Orders Only Doctor Unassigned, [place] [facility] 1.0.114 350.1.13.10 4.2.7.2.686 [id number] [facility] 2022-12-01 09:15:00 2022-12-01 15:27:23 Outpatient R ELIN VIEYRA [facility] [id number] General acute hospital 2022-12-01 09:15:00 2022-12-01 15:27:23 Nurse Visit 3, Arina- Infusion Chair Azalia [facility] 1..114 350.1.13.10 4.2.7.2.686 [id number] [facility] 2022-11-02 00:00:00 2022-11-02 00:00:00 Orders Only Doctor Unassigned, [place] [facility] 1.20.114 350.1.13.10 4.2.7.2.686 [id number] [id number] [facility] 2022-10-30 00:00:00 2022-10-30 00:00:00 Orders Only Doctor Unassigned, [place] [facility] 1.2840.114 350.1.13.10 4.2.7.2.686 [id number] [id number] [facility] 2022-10-27 00:00:00 2022-10-27 00:00:00 Letter (Out) Clinic, [facility] Neurology Resident [facility] 1.2840.114 350.1.13.10 4.2.7.2.686 [id number] [id number] [facility] 2022-10-25 08:33:00 2022-10-26 15:15:00 Outpatient U YANCY MERINO JORGE [facility] [id number] [facility] 2022-10-25 08:33:00 2022-10-26 15:15:00 Hospital Encounter David Tavera tristonEmaYancymiguelito [facility] 1.0.114 350.1.13.10 4.2.7.2.686 [id number] [facility] 2022-10-26 00:00:00 2022-10-26 00:00:00 Patient Secure Msg Doctor Unassigned, [place] [facility] 1.840.114 350.1.13.10 4.2.7.2.686 [id number] [facility] 2022-09-01 00:00:00 2022-09-01 00:00:00 Orders Only Doctor Unassigned, [place] [facility] 1.840.114 350.1.13.10 4.2.7.2.686 [id number] [facility] 2022-08-17 00:00:00 2022-08-17 00:00:00 Marie Sepulveda [facility] 1.2840.114 350.1.13.10 4.2.7.2.686 [id number] [facility] 2022-08-16 00:00:00 2022-08-16 00:00:00 Telephone Ashly Villanueva [facility] 1.2.840.114 350.1.13.10 4.2.7.2.686 [id number] [facility] 2022-08-12 11:00:00 2022-08-12 11:00:00 Outpatient ASHLY DANIELS [facility] [id number] [facility] 2022-08-12 00:00:00 2022-08-12 00:00:00 Telephone Farhanaeli [facility] 1.2.840.114 350.1.13.10 4.2.7.2.686 [id number] [facility] 2022-08-06 00:00:00 2022-08-06 00:00:00 Telephone Farhanaeli [facility] 1.2.840.114 350.1.13.10 4.2.7.2.686 [id number] [facility] 2022-07-22 00:00:00 2022-07-22 00:00:00 Telephone Demetrio Rinaldi [facility] 1.2.840.114 350.1.13.10 4.2.7.2.686 [id number] [facility] 2022-07-06 10:00:00 2022-07-06 10:00:00 Outpatient MARLON NIELSON [facility] [id number] General acute hospital 2022-07-01 08:30:00 2022-07-01 08:30:00 Outpatient ELIN HASTINGS [facility] [id number] General acute hospital 2022-06-10 10:00:00 2022-06-10 12:36:43 Outpatient ASHLY DANIELS [facility] [id number] [facility] 2022-06-10 10:00:00 2022-06-10 12:36:43 Office Visit Clinic, Neurology Continuity Ashly Villanueva [facility] 1.84.114 350.1.13.10 4.2.7.2.686 [id number] [facility] 2022-06-10 10:00:00 2022-06-10 10:00:00 Outpatient Vamsi [facility] [id number] [facility] 2022-06-03 10:00:00 2022-06-03 15:30:00 Nurse Visit 3, Arina-Vl Infusion Chair Azalia [facility] [place] [facility] 1.84.114 350.1.13.10 4.2.7.2.686 [id number] [facility] 2022-06-03 10:00:00 2022-06-03 10:00:00 [id number] 2022-05-20 10:00:00 2022-05-20 15:30:00 Nurse Visit 4, Arina-Vl Infusion Chair Azalia [facility] 1..114 350.1.13.10 4.2.7.2.686 [id number] [facility] 2022-05-20 10:00:00 2022-05-20 10:00:00 [facility] [id number] [facility] 2022-05-20 00:00:00 2022-05-20 00:00:00 Telephone Azalia [facility] 1.84.114 350.1.13.10 4.2.7.2.686 [id number] [facility] 2022-05-20 00:00:00 2022-05-20 00:00:00 Orders Only Doctor Unassigned, [place] [facility] 1.20.114 350.1.13.10 4.2.7.2.686 [id number] [facility] 2022-05-05 09:19:00 2022-05-08 15:58:00 Outpatient X ARMEN COX [facility] [id number] [facility] 2022-05-05 09:19:00 2022-05-08 15:58:00 Emergency Ashly Collier Anand Vilaschandr a [facility] 1.840.114 350.1.13.10 4.2.7.2.686 [id number] [facility] 2022-05-05 00:00:00 2022-05-05 00:00:00 Telephone Azalia [facility] MED[facility] OFF[facility] BUILD[facility] 1.0.114 350.1.13.10 4.2.7.2.686 [id number] [facility] 2022-04-19 00:00:00 2022-04-19 00:00:00 Patient Secure Msg Sharma-eKith Navarrete [facility] 1.20.114 350.1.13.10 4.2.7.2.686 [id number] [facility] 2022-04-12 00:00:00 2022-04-12 00:00:00 Transition of Care Leslie Palm 1.2840.114 350.1.13.10 4.2.7.2.686 [id number] [facility] 2022-03-31 09:52:00 2022-04-09 23:12:00 Inpatient X AZALIA ELIN [facility] [id number] [facility] 2022-03-31 09:52:00 2022-04-09 23:12:00 Hospital Encounter [facility]urah Patricia, [facility] 1.2.840.114 350.1.13.10 4.2.7.2.686 [id number] [facility] 2022-03-23 10:15:00 2022-03-23 13:08:32 Outpatient R MARLON BUSH [facility] [id number] General acute hospital 2022-03-23 10:15:00 2022-03-23 13:08:32 Office Visit Marlon Bush [facility] 1.840.114 350.1.13.10 4.2.7.2.686 [id number] [facility] 2022-03-23 00:00:00 2022-03-23 00:00:00 Orders Only Doctor Unassigned, [place] [facility] 1.0.114 350.1.13.10 4.2.7.2.686 [id number] [facility] 2022-03-23 00:00:00 2022-03-23 00:00:00 Telephone Ashly Villanueva [facility] 1.114 350.1.13.10 4.2.7.2.686 [id number] [facility] 2022-03-11 10:00:00 2022-03-11 11:00:00 Office Visit Clinic, Neurology Continuity Ashly Villanueva [facility] 1.114 350.1.13.10 4.2.7.2.686 [id number] [facility] 2022-03-11 10:00:00 2022-03-11 10:00:00 Outpatient ASHLY DANIELS [facility] [id number] [facility] 2022-03-11 10:00:00 2022-03-11 10:00:00 Outpatient R ASHLY VILLANUEVA [facility] [id number] [facility] 2022-03-11 10:00:00 2022-03-11 10:00:00 Outpatient R ASHLY VILLANUEVA [facility] [id number] [facility] 2022-03-10 13:15:00 2022-03-10 13:30:00 Office Visit Adelso Torres [facility] 1..114 350.1.13.10 4.2.7.2.686 [id number] [facility] 2022-03-10 13:15:00 2022-03-10 13:15:00 Outpatient [facility] [id number] [facility] 2022-03-10 13:15:00 2022-03-10 13:15:00 Outpatient R [facility] [id number] [facility] 2022-03-10 13:15:00 2022-03-10 13:15:00 Outpatient R [facility] [id number] [facility] 2022-03-05 00:00:00 2022-03-05 00:00:00 Outpatient [facility] [id number] [facility] 2022-03-05 00:00:00 2022-03-05 00:00:00 Orders Only Doctor Unassigned, [place] [facility] 1..114 350.1.13.10 4.2.7.2.686 [id number] [id number] [facility] 2022-03-05 00:00:00 2022-03-05 00:00:00 Patient Secure Msg Doctor Unassigned, [place] [facility] 1..114 350.1.13.10 4.2.7.2.686 [id number] [facility] 2022-03-02 00:00:00 2022-03-02 00:00:00 Telephone Keith Upton [facility] 1.114 350.1.13.10 4.2.7.2.686 [id number] [facility] 2022-02-26 13:10:00 2022-02-26 13:26:22 Outpatient R [facility] [id number] [facility] 2022-02-26 13:10:00 2022-02-26 13:26:22 Office Visit [facility]..840.114 350.1.13.10 4.2.7.2.686 [id number] [facility] 2022-02-26 13:10:00 2022-02-26 13:26:22 [facility] [id number] [facility] 2022-02-26 13:10:00 2022-02-26 13:26:22 [facility] [id number] [facility] 2022-02-22 00:00:00 2022-02-22 00:00:00 Transition of Care Alena Sarmiento [facility] 1..840.114 350.1.13.10 4.2.7.2.686 [id number] [facility] 2022-02-02 10:41:00 2022-02-19 20:35:00 Inpatient X DAVID TAVERA [facility] [id number] [facility] 2022-02-02 10:41:00 2022-02-19 20:35:00 Hospital Encounter Clement Bell, Aggie Young, Adelso Hung Todd S [facility] 1..840.114 350.1.13.10 4.2.7.2.686 [id number] [facility] 2022-02-12 09:00:00 2022-02-12 11:46:00 Surgery Adelso Torres [facility] 1.2.840.114 350.1.13.10 4.2.7.2.686 [id number] [facility] 2022-02-02 00:00:00 2022-02-02 00:00:00 Travel 1.2.840.1 74001.1.1 3.104.2.7 .3.222336 .8 1.2.840.114 350.1.13.10 4.2.7.3.698 [id number] [facility] 2020-08-08 00:00:00 2020-08-08 00:00:00 (TEL) STLMLC STLMLC [id number] [facility] 2020-08-07 00:00:00 2020-08-07 00:00:00 OFFICE VISIT EST PT LEVEL [id number] [facility] 2020-05-08 00:00:00 2020-05-08 00:00:00 OFFICE VISIT ESTAB PT LEVEL [id number] [facility] 2020-04-17 00:00:00 2020-04-17 00:00:00 OFFICE VISIT EST PT LEVEL [id number] [facility] 2020-04-11 18:06:00 2020-04-11 21:28:00 Emergency Myrna Mathews [facility] 1.2.840.114 350.1.13.10 4.2.7.2.686 [id number] [facility] 2020-04-11 17:49:00 2020-04-11 17:49:00 Emergency X MYRNA MATHEWS [facility] [id number] [facility] 2020-02-27 17:45:00 2020-02-27 17:45:00 [facility] [id number] [facility] 2020-02-05 16:20:00 2020-02-05 16:20:[address] [facility] [id number] [facility] 2020-01-30 13:41:00 2020-01-30 13:41:00 [facility] [id number] [facility] 2019-09-21 11:40:00 2019-09-21 11:40:00 [facility] [id number] [facility] 2019-08-03 11:40:00 2019-08-03 11:40:00 [facility] [id number] [facility] 2019-05-23 10:59:00 2019-05-23 10:59:00 [facility] [id number] [facility] 2019-01-22 16:20:00 2019-01-22 16:20:00 [facility] [id number] [facility] 2018-07-27 11:15:00 2018-07-27 11:15:00 [facility] [facility] [id number] [facility] 2018-07-05 15:30:00 2018-07-05 15:30:00 [facility] [id number] [facility] 2017-12-21 16:00:00 2017-12-21 16:00:00 [facility] [id number] [facility] 2017-10-27 16:00:00 2017-10-27 16:00:00 [facility] [id number] [facility] 2017-10-18 16:32:00 2017-10-18 16:32:00 [facility] [id number] [facility] 2017-10-11 15:30:00 2017-10-11 15:30:00 Outpatient [facility] [id number] [facility] 2017-10-11 08:34:00 2017-10-11 08:34:00 Outpatient [facility] [id number] [facility] Results Test Description Test Time Test Comments Results Result Co mments Source [facility]. METABOLIC PANEL (31334)2023-06-03 15:46:58* Test Item Value Reference Range Interpretation Comme nts NA (test code = 5322518507) 140 mmol/L 135-145 K (test code = 8733413998) 4.4 mmol/L 3.5-5.0 Slight hemolysis CL (test code = 3432117532) 103 mmol/L 98-108 CO2 TOTAL (test code = 8321180760) 29 mmol/L 23-31 AGAP (test code = 8237962413) 8 2-16 BUN (test code = 4311396568) 15 mg/dL 7-23 Slight hemolysis GLUCOSE (test code = 7797869021) 119 mg/dL 70-110 H CREATININE (test code = 5030907903) 0.71 mg/dL 0.60-1.25 TOTAL BILI (test code = 5506593676) 0.7 mg/dL 0.1-1.1 CALCIUM (test code = 5753312224) 9.2 mg/dL 8.6-10.6 T PROTEIN (test code = 3252425724) 6.9 g/dL 6.3-8.2 ALBUMIN (test code = 6917693549) 4.1 g/dL 3.5-5.0 ALK PHOS (test code = 6219073405) 68 U/L 34-122 Slight hemolysis ALTv (test code = 1742-6) 25 U/L 5-50 AST(SGOT) (test code = 1274798192) 34 U/L 13-40 Slight hemolysis eGFR (test code = 05786-8) 111.8 mL/min/1.73m2 CKD-EPI eGFR (2020). Assuming creatinine has been stable day-to-day for at least three months, the eGFR indicates Category G1 (>= 90 mL/min/1.73 m2) Lab Interpretation (test code = 80874-1) [facility] (22153)2023-06-03 15:46:58* Test Item Value Reference Range Interpretation Comme nts NA (test code = 4567840086) 140 mmol/L 135-145 K (test code = 7769834632) 4.4 mmol/L 3.5-5.0 Slight hemolysis CL (test code = 8887306513) 103 mmol/L 98-108 CO2 TOTAL (test code = 7481619040) 29 mmol/L 23-31 AGAP (test code = 2302945924) 8 2-16 BUN (test code = 3427448803) 15 mg/dL 7-23 Slight hemolysis GLUCOSE (test code = 0348130270) 119 mg/dL 70-110 H CREATININE (test code = 9970196923) 0.71 mg/dL 0.60-1.25 TOTAL BILI (test code = 3362855722) 0.7 mg/dL 0.1-1.1 CALCIUM (test code = 6483010871) 9.2 mg/dL 8.6-10.6 T PROTEIN (test code = 3841446063) 6.9 g/dL 6.3-8.2 ALBUMIN (test code = 7225425942) 4.1 g/dL 3.5-5.0 ALK PHOS (test code = 8135779467) 68 U/L 34-122 Slight hemolysis ALTv (test code = 1742-6) 25 U/L 5-50 AST(SGOT) (test code = 6282420318) 34 U/L 13-40 Slight hemolysis eGFR (test code = 79511-6) 111.8 mL/min/1.73m2 CKD-EPI eGFR (2020). Assuming creatinine has been stable day-to-day for at least three months, the eGFR indicates Category G1 (>= 90 mL/min/1.73 m2) Lab Interpretation (test code = 39861-4) Abnormal [facility] WITH MAWB2623-33-20 15:33:35* Test Item Value Reference Range Interpretation Comme nts WBC (test code = 6690-2) 5.77 See_Comment [Automated [employer]] The system which generated this result transmitted reference range: 4.20 - 10.70 10*3/?L. The reference range was not used to interpret this result as normal/abnormal. RBC (test code = 789-8) 4.40 See_Comment [Automated [employer]] The system which generated this result transmitted reference range: 4.26 - 5.52 10*6/?L. The reference range was not used to interpret this result as normal/abnormal. HGB (test code = 718-7) 12.6 g/dL 12.2-16.4 HCT (test code = 4544-3) 38.6 % 38.4-49.3 MCV (test code = 787-2) 87.7 fL 81.7-95.6 MCH (test code = 785-6) 28.6 pg 26.1-32.7 MCHC (test code = 786-4) 32.6 g/dL 31.2-35.0 RDW-SD (test code = 18888-9) 47.2 fL 38.5-51.6 RDW-CV (test code = 788-0) 14.7 % 12.1-15.4 PLT (test code = 777-3) 234 See_Comment [Automated [employer]] The system which generated this result transmitted reference range: 150 - 328 10*3/?L. The reference range was not used to interpret this result as normal/abnormal. MPV (test code = 52996-4) 10.7 fL 9.8-13.0 NRBC/100 WBC (test code = 7370987144) 0.0 See_Comment [Automated [employer]] The system which generated this result transmitted reference range: 0.0 - 10.0 /100 WBCs. The reference range was not used to interpret this result as normal/abnormal. NRBC x10^3 (test code = 8174953177) See_Comment [Automated [employer]] The system which generated this result transmitted reference range: 10*3/?L. The reference range was not used to interpret this result as normal/abnormal. GRAN MAT (NEUT) % (test code = 770-8) 61.9 % IMM GRAN % (test code = 8143505704) 0.50 % LYMPH % (test code = 736-9) 23.2 % MONO % (test code = 5905-5) 12.0 % EOS % (test code = 713-8) 1.7 % BASO % (test code = 706-2) 0.7 % GRAN MAT x10^3(ANC) (test code = 9966000217) 3.57 10*3/uL 1.99-6.95 IMM GRAN x10^3 (test code = 0725953991) 0.03 10*3/uL 0.00-0.06 LYMPH x10^3 (test code = 731-0) 1.34 10*3/uL 1.09-3.23 MONO x10^3 (test code = 742-7) 0.69 10*3/uL 0.36-1.02 EOS x10^3 (test code = 711-2) 0.10 10*3/uL 0.06-0.53 BASO x10^3 (test code = 704-7) 0.04 10*3/uL 0.01-0.09 [facility] WITH [id number] 15:33:35* Test Item Value Reference Range Interpretation Comme nts WBC (test code = 6690-2) 5.77 See_Comment [Automated [employer]] The system which generated this result transmitted reference range: 4.20 - 10.70 10*3/?L. The reference range was not used to interpret this result as normal/abnormal. RBC (test code = 789-8) 4.40 See_Comment [Automated [employer]] The system which generated this result transmitted reference range: 4.26 - 5.52 10*6/?L. The reference range was not used to interpret this result as normal/abnormal. HGB (test code = 718-7) 12.6 g/dL 12.2-16.4 HCT (test code = 4544-3) 38.6 % 38.4-49.3 MCV (test code = 787-2) 87.7 fL 81.7-95.6 MCH (test code = 785-6) 28.6 pg 26.1-32.7 MCHC (test code = 786-4) 32.6 g/dL 31.2-35.0 RDW-SD (test code = 60111-5) 47.2 fL 38.5-51.6 RDW-CV (test code = 788-0) 14.7 % 12.1-15.4 PLT (test code = 777-3) 234 See_Comment [Automated messa ge] The system which generated this result transmitted reference range: 150 - 328 10*3/?L. The reference range was not used to interpret this result as normal/abnormal. MPV (test code = 70859-4) 10.7 fL 9.8-13.0 NRBC/100 WBC (test code = 1780050033) 0.0 See_Comment [Automated me ssage] The system which generated this result transmitted reference range: 0.0 - 10.0 /100 WBCs. The reference range was not used to interpret this result as normal/abnormal. NRBC x10^3 (test code = 9508803738) See_Comment [Automated me ssage] The system which generated this result transmitted reference range: 10*3/?L. The reference range was not used to interpret this result as normal/abnormal. GRAN MAT (NEUT) % (test code = 770-8) 61.9 % IMM GRAN % (test code = 8392396963) 0.50 % LYMPH % (test code = 736-9) 23.2 % MONO % (test code = 5905-5) 12.0 % EOS % (test code = 713-8) 1.7 % BASO % (test code = 706-2) 0.7 % GRAN MAT x10^3(ANC) (test code = 0801493363) 3.57 10*3/uL 1.99-6.95 IMM GRAN x10^3 (test code = 0880029181) 0.03 10*3/uL 0.00-0.06 LYMPH x10^3 (test code = 731-0) 1.34 10*3/uL 1.09-3.23 MONO x10^3 (test code = 742-7) 0.69 10*3/uL 0.36-1.02 EOS x10^3 (test code = 711-2) 0.10 10*3/uL 0.06-0.53 BASO x10^3 (test code = 704-7) 0.04 10*3/uL 0.01-0.09 [facility] [id number] 20:24:36* Test Item Value Reference Range Interpretation Comme nts CRP (test code = 4527921219) 3.2 mg/dL <=0.8 H Lab Interpretation (test cod e = 27026-2) Abnormal [facility] CampusFERRITIN [id number] 06:59:28* Test Item Value Reference Range Interpretation Comme nts FERRITIN (test code = 1167995745) 153.0 ng/mL 18.0-464.0 [place] (test code = ST[place]) Biotin has been reported to cause a negative bias, interpret results relative to patient's use of biotin. Lab Interpretation (test code = 51791-1) Normal [facility] CampusPROCALCITONIN2023-08-28 06:52:56* Test Item Value Reference Range Interpretation Comme nts Procalcitonin (test code = 2045990960) 0.03 ng/mL <=0.07 [place]ORD (test code = STANFORD) INTERPRETATION OF PROCALCITONIN RESULTS IN ADULTS >= 18 YEARS OF AGE Initiation and discontinuation of antibiotics on patients with suspected or confirmed Lower Respiratory Tract Infection in Adults >= 18 years of age. + +-------- --------+ + -----+|Procalcitonin |Interpretation ?|Antibiotic ? ? |Considerations ? |ng/mL ? | ?|recommendation | ? + +-------- --------+ + -----+| <0.1 ? | Bacterial ? ? ?| Strongly ? ? ?| ? | ?| infection very | discouraged ? | Overruling: ? | ?| unlikely ? ? ? | ? | ? Clinically unstable ? ? ? + +-------- --------+ + ? High risk for adverse ? ? | <0.25 ?| Bacterial ? ? ?| Discouraged ? | ? outcome ? | ?| infection ? ? ?| ? | ? SEE IMPORTANT NOTE ?| ?| unlikely ? ? ? | ? | ? + +-------- --------+ + -----+| >=0.25 ? ? ? | Bacterial ? ? ?| Encouraged ? ?| ? | ?| infection ? ? ?| ? | ? | ?| likely ? | ? | Consider treatment failure ?+ +------- ---------+ -+ if levels does not decrease | >0.5 ? | Bacterial ? ? ?| Strongly ? ? ?| appropriately ? | ?| infection very | encouraged ? ?| ? | ?| likely ? | ? | ? + +-------- --------+ + -----+ Discontinuation of antibiotics in high-acuity patients with suspected or confirmed sepsis in Adults >= 18 years of age. + +-------- --------+ + -----+|Procalcitonin |Interpretation ?|Antibiotic ? ? |Considerations ? |ng/mL ? | ?|recommendation | ? + +-------- --------+ + -----+| <0.25 ?| Bacterial ? ? ?| Strongly ? ? ?| ? | ?| infection very | discouraged ? | Overruling: ? | ?| unlikely ? ? ? | ? | ? Clinically unstable ? ? ? + +-------- --------+ + ? High risk for adverse ? ? | <0.5 or drop | Bacterial ? ? ?| Discouraged ? | ? outcome ? | >80% from ? ?| infection ? ? ?| ? | ? SEE IMPORTANT NOTE ?| highest PCT ?| unlikely ? ? ? | ? | ? | level ?| ?| ? | ? + +-------- --------+ + -----+| >=0.5 ?| Bacterial ? ? ?| Encouraged ? ?| ? | ?| infection ? ? ?| ? | ? | ?| likely ? | ? | Consider treatment failure ?+ +------- ---------+ -+ if levels does not decrease | >1.0 ? | Bacterial ? ? ?| Strongly ? ? ?| appropriately ? | ?| infection very | encouraged ? ?| ? | ?| likely ? | ? | ? + +-------- --------+ + -----+ Percentage of drop of Procalcitonin calculation for Discontinuation of antibiotics in high-acuity patients with suspected or confirmed sepsis in Adults >= 18 years of age. ? Procalcitonin highest{}-Procalcitonin current{}Delta Procalcitonin = x100% ? Procalcitonin current {} IMPORTANT NOTE: Procalcitonin may be elevated without bacterial infection by physiologic stress related to trauma, [place], chronic dialysis, metastatic cancer, surgery in the past seven days, malaria, some fungal infections, and some forms of vasculitis. The interpretation algorithm may not apply to patients with immunosuppression (equivalent of >10 mg of prednisone daily), HIV with CD4 cell count < 350 cells/mm3, active malignancy on systemic chemotherapy, solid organ transplant or hematopoietic stem cell transplantation, or hospital acquired pneumonia. Additionally, some clinical trials of procalcitonin have excluded patients with shock requiring vasopressor use, acute respiratory failure requiring mechanical ventilation, or those with known lung abscess/empyema. For further information please refer to:[email or web address] Lab Interpretation (test code = 26277-1) Normal [facility] CampusLactic Acid Whole [id number] 03:05:13* Test Item Value Reference Range Interpretation Comme nts LACTIC ACID (test code = 8238785753) 1.18 mmol/L 0.50-2.20 QUES Lab Interpretation (test cod e = 43161-8) Normal [facility] CampusVALPROIC ACID, [id number] 01:18:26* Test Item Value Reference Range Interpretation Comme nts Valproic Acid, Free (test code = 9803510137) 13.4 ug/mL 4.0-15.0 [place] (test code = STANFORD) Toxic Range: ? Greater than 15 ug/mL Test developed and characteristics determined by [facility] Laboratory Services. Lab Interpretation (test code = 84629-5) Normal [facility] CampusCOMP. METABOLIC PANEL (37929)2023-03-20 23:46:14* Test Item Value Reference Range Interpretation Comme nts NA (test code = 8750693570) 138 mmol/L 135-145 K (test code = 5659644468) 3.9 mmol/L 3.5-5.0 CL (test code = 0454657373) 100 mmol/L 98-108 CO2 TOTAL (test code = 6827042859) 27 mmol/L 23-31 AGAP (test code = 3937405777) 11 2-16 BUN (test code = 2038772298) 13 mg/dL 7-23 GLUCOSE (test code = 7310768259) 82 mg/dL 70-110 CREATININE (test code = 4597320055) 0.90 mg/dL 0.60-1.25 TOTAL BILI (test code = 1559805393) 0.5 mg/dL 0.1-1.1 CALCIUM (test code = 0052873256) 8.9 mg/dL 8.6-10.6 T PROTEIN (test code = 0185808408) 6.6 g/dL 6.3-8.2 ALBUMIN (test code = 4751445413) 4.1 g/dL 3.5-5.0 ALK PHOS (test code = 5954682361) 67 U/L 34-122 ALTv (test code = 1742-6) 42 U/L 5-50 AST(SGOT) (test code = 9586386077) 40 U/L 13-40 eGFR (test code = 9456942586) 89.3 mL/min/1.73m2 [place] (test code = STANFORD) Association of Glomerular Filtration Rate (GFR) and Staging of Kidney Disease* + + +- +| GFR (mL/min/1.73 m2) ?| With Kidney Damage ?| ?Without Kidney Damage+ ------+ ----+ ------+| ?>90 ?| ?Stage one ?| ? Normal ?+ -+ + -+| ?60-89 ?| ?Stage two ?| ? Decreased GFR ? + + +- +| ?30-59 ?| ?Stage three ?| ? Stage three ? + + +- +| ?15-29 ?| ?Stage four ? | ? Stage four ?+ -+ + -+| ?<15 (or dialysis) ? ?| ?Stage five ? | ? Stage five ?+ -+ + -+ *Each stage assumes the associated GFR level has been in effect for at least three months. ?Stages 1 to 5, with or without kidney disease, indicate chronic kidney disease. Notes: Determination of stages one and two (with eGFR >59mL/min/1.73 m2) requires estimation of kidney damage for at least three months as defined by structural or functional abnormalities of the kidney, manifested by either:Pathological abnormalities or Markers of kidney damage (including abnormalities in the composition of the blood or urine or abnormalities in imaging tests). [facility] CampusMAGNESIUM2023-08-27 23:46:14* Test Item Value Reference Range Interpretation Comme nts MAGNESIUM (test code = 0236155620) 1.8 mg/dL 1.7-2.4 Lab Interpretation (test cod e = 29378-6) Normal [facility] WITH [id number] 23:31:14* Test Item Value Reference Range Interpretation Comme nts WBC (test code = 6690-2) 5.93 See_Comment [Automated [employer]] The system which generated this result transmitted reference range: 4.20 - 10.70 10*3/?L. The reference range was not used to interpret this result as normal/abnormal. RBC (test code = 789-8) 4.44 See_Comment [Automated [employer]] The system which generated this result transmitted reference range: 4.26 - 5.52 10*6/?L. The reference range was not used to interpret this result as normal/abnormal. HGB (test code = 718-7) 12.7 g/dL 12.2-16.4 HCT (test code = 4544-3) 38.7 % 38.4-49.3 MCV (test code = 787-2) 87.2 fL 81.7-95.6 MCH (test code = 785-6) 28.6 pg 26.1-32.7 MCHC (test code = 786-4) 32.8 g/dL 31.2-35.0 RDW-SD (test code = 73916-2) 47.8 fL 38.5-51.6 RDW-CV (test code = 788-0) 14.9 % 12.1-15.4 PLT (test code = 777-3) 209 See_Comment [Automated messa ge] The system which generated this result transmitted reference range: 150 - 328 10*3/?L. The reference range was not used to interpret this result as normal/abnormal. MPV (test code = 72067-5) 9.9 fL 9.8-13.0 NRBC/100 WBC (test code = 2928717375) 0.0 See_Comment [Automated me ssage] The system which generated this result transmitted reference range: 0.0 - 10.0 /100 WBCs. The reference range was not used to interpret this result as normal/abnormal. NRBC x10^3 (test code = 7477676393) See_Comment [Automated messa ge] The system which generated this result transmitted reference range: 10*3/?L. The reference range was not used to interpret this result as normal/abnormal. GRAN MAT (NEUT) % (test code = 770-8) 60.8 % IMM GRAN % (test code = 7005389216) 0.70 % LYMPH % (test code = 736-9) 18.4 % MONO % (test code = 5905-5) 18.7 % EOS % (test code = 713-8) 0.7 % BASO % (test code = 706-2) 0.7 % GRAN MAT x10^3(ANC) (test code = 8235963194) 3.61 10*3/uL 1.99-6.95 IMM GRAN x10^3 (test code = 0462900846) 0.04 10*3/uL 0.00-0.06 LYMPH x10^3 (test code = 731-0) 1.09 10*3/uL 1.09-3.23 MONO x10^3 (test code = 742-7) 1.11 10*3/uL 0.36-1.02 H EOS x10^3 (test code = 711-2) 0.04 10*3/uL 0.06-0.53 L BASO x10^3 (test code = 704-7) 0.04 10*3/uL 0.01-0.09 Lab Interpretation (test code = 25407-5) Abnormal [facility] GLUCOSE (AUTOMATED)2023-02-14 22:18:58* Test Item Value Reference Range Interpretation Comme nts POCT GLU (test code = 0294045353) 174 mg/dL 70-110 H Lab Interpretation (test cod e = 74396-4) Abnormal [facility] GLUCOSE (AUTOMATED)2023-02-14 17:43:43* Test Item Value Reference Range Interpretation Comme nts POCT GLU (test code = 2441104579) 84 mg/dL 70-110 Lab Interpretation (test cod e = 69574-3) Normal [facility] GLUCOSE (AUTOMATED)2022-10-26 13:16:44* Test Item Value Reference Range Interpretation Comme nts POCT GLU (test code = 9771539916) 145 mg/dL 70-110 H Lab Interpretation (test cod e = 79295-1) Abnormal [facility] GLUCOSE (AUTOMATED)2022-10-26 01:20:18* Test Item Value Reference Range Interpretation Comme nts POCT GLU (test code = 7933922022) 240 mg/dL 70-110 H Lab Interpretation (test cod e = 65447-8) Abnormal [facility] GLUCOSE (AUTOMATED)2022-10-25 22:11:38* Test Item Value Reference Range Interpretation Comme nts POCT GLU (test code = 7526131690) 254 mg/dL 70-110 H Lab Interpretation (test cod e = 51652-6) Abnormal [facility], [id number] 18:19:20* Test Item Value Reference Range Interpretation Comme nts AMMONIA (test code = 5163928448) 9-33 L Lab Interpretation (test cod e = 12070-5) Abnormal [facility] GLUCOSE (AUTOMATED)2022-10-25 17:32:20* Test Item Value Reference Range Interpretation Comme nts POCT GLU (test code = 6308676459) 212 mg/dL 70-110 H Lab Interpretation (test cod e = 34946-3) Abnormal [facility] GLUCOSE (AUTOMATED)2022-05-08 18:07:15* Test Item Value Reference Range Interpretation Comme nts POCT GLU (test code = 9549063240) 210 mg/dL 70-110 H Lab Interpretation (test cod e = 80378-3) Abnormal [facility] GLUCOSE (AUTOMATED)2022-05-08 13:21:55* Test Item Value Reference Range Interpretation Comme nts POCT GLU (test code = 6756877535) 83 mg/dL 70-110 Lab Interpretation (test cod e = 11302-5) Normal [facility] GLUCOSE (AUTOMATED)2022-05-08 01:16:03* Test Item Value Reference Range Interpretation Comme nts POCT GLU (test code = 6553653524) 133 mg/dL 70-110 H Lab Interpretation (test cod e = 06353-8) Abnormal [facility] GLUCOSE (AUTOMATED)2022-05-07 22:56:43* Test Item Value Reference Range Interpretation Comme nts POCT GLU (test code = 9178245419) 194 mg/dL 70-110 H Lab Interpretation (test cod e = 05028-7) Abnormal [facility] GLUCOSE (AUTOMATED)2022-05-07 13:54:43* Test Item Value Reference Range Interpretation Comme nts POCT GLU (test code = 6987074376) 93 mg/dL 70-110 Lab Interpretation (test cod e = 15963-5) Normal [facility] GLUCOSE (AUTOMATED)2022-05-07 01:10:55* Test Item Value Reference Range Interpretation Comme nts POCT GLU (test code = 6415592752) 148 mg/dL 70-110 H Lab Interpretation (test cod e = 18487-5) Abnormal [facility] CampusHEPATIC FUNCTION PANEL (76625) (ALB,T.PRO,BILI T,BU/BC,ALT,AST,ALK PHOS)2022-05-07 01:03:23* Test Item Value Reference Range Interpretation Comme nts TOTAL BILI (test code = 8278877655) 0.5 mg/dL 0.1-1.1 BILI UNCON (test code = 2096834173) 0.2 mg/dL 0.1-1.1 BILI CONJ (test code = 1301165194) 0.0 mg/dL 0-0.3 T PROTEIN (test code = 6417450917) 6.3 g/dL 6.3-8.2 ALBUMIN (test code = 9291704319) 3.4 g/dL 3.5-5 L ALK PHOS (test code = 4492940687) 54 U/L 34-122 ALTv (test code = 1742-6) 13 U/L 5-50 AST(SGOT) (test code = 3752211297) 18 U/L 13-40 Lab Interpretation (test cod e = 67817-7) Abnormal [facility] CampusVALPROIC ACID, [id number] 00:55:25* Test Item Value Reference Range Interpretation Comme nts Valproic Acid, Free (test code = 2461137742) 7.2 ug/mL 4-15 [place] (test code = ST[place]FORD) Toxic Range: ? Greater than 15 ug/mL Test developed and characteristics determined by [facility] Laboratory Services. Lab Interpretation (test code = 79958-1) Normal [facility] GLUCOSE (AUTOMATED)2022-05-06 21:54:40* Test Item Value Reference Range Interpretation Comme nts POCT GLU (test code = 4085907580) 149 mg/dL 70-110 H Lab Interpretation (test cod e = 90206-8) Abnormal [facility] GLUCOSE (AUTOMATED)2022-05-06 17:06:34* Test Item Value Reference Range Interpretation Comme nts POCT GLU (test code = 1548531776) 166 mg/dL 70-110 H Lab Interpretation (test cod e = 95933-5) Abnormal [facility] GLUCOSE (AUTOMATED)2022-05-06 13:49:08* Test Item Value Reference Range Interpretation Comme nts POCT GLU (test code = 7571367295) 80 mg/dL 70-110 Lab Interpretation (test cod e = 94859-2) Normal [facility] GLUCOSE (AUTOMATED)2022-05-06 01:44:43* Test Item Value Reference Range Interpretation Comme nts POCT GLU (test code = 0134998918) 158 mg/dL 70-110 H Lab Interpretation (test cod e = 78800-1) Abnormal [facility] GLUCOSE (AUTOMATED)2022-05-05 22:39:13* Test Item Value Reference Range Interpretation Comme nts POCT GLU (test code = 0101883101) 79 mg/dL 70-110 Lab Interpretation (test cod e = 03113-3) Normal [facility] CampusGLYCOSYLATED HEMOGLOBIN (A1C)2022-05-05 21:54:43* Test Item Value Reference Range Interpretation Comme nts HGB A1C (test code = 4548-4) 6.7 % 4-5.7 H [place] (test code = STANFORD) Reference RangesNormal: <5.7%Prediabetes: 5.7 - 6.4%Diabetes: > 6.5% Lab Interpretation (test code = 01579-0) Abnormal [facility] CampusFASTING LIPID PANEL (30549)(TOTAL CHOLESTEROL, TRIGLYCERIDES, HDL)2022-05-05 19:53:18* Test Item Value Reference Range Interpretation Comme nts CHOL (test code = 0766234296) 112 mg/dL 120-200 L HDL (test code = 2562100364) 47 mg/dL See_Comment [Automated [employer]] The system which generated this result transmitted reference range: >=40. The reference range was not used to interpret this result as normal/abnormal. HDLC RATIO (test code = 0141250123) See_Comment [Automated [employer]] The system which generated this result transmitted reference range: <=5.0. The reference range was not used to interpret this result as normal/abnormal. TRIG (test code = 9507696338) 123 mg/dL 30-170 LDL CHOL (test code = 42875-8) 40 mg/dL See_Comment [Automated [employer]] The system which generated this result transmitted reference range: <=160. The reference range was not used to interpret this result as normal/abnormal. VLDL (test code = 5119834052) 25 mg/dL 5-60 Lab Interpretation (test code = 86742-2) Abnormal [facility] CampusTroponin I - Code [id number] 15:00:04* Test Item Value Reference Range Interpretation Comments TROPONIN I (test code = 9288625622) 0.002 ng/mL See_Comment [Automated message] The system which generated this result transmitted reference range: <=0.034. The reference range was not used to interpret this result as normal/abnormal. ST[place]ORD (test code = STANFORD) Reference (Normal) Range (defined by the 99th percentile reference limit): <= 0.034 ng/mL Note: Cardiac troponin begins to rise 3-4 hours after the onset of ischemia. Repeat in 4-6 hours if the sample was drawn within 3-4 hours of the onset of the symptom and found normal. Diagnosis of myocardial injury is made with acute changes in cTn concentrations with at least one serial sample above the 99th percentile upper reference limit (URL), taken together with the patient's clinical presentation. Biotin has been reported to cause a negative bias, interpret results relative to patient's use of biotin. Lab Interpretation (test code = 06068-1) Normal [facility] Metabolic Panel (NA, K, CL, CO2, Glucose, BUN, Creatinine, CA) - Code [id number] 14:48:26* Test Item Value Reference Range Interpretation Comme nts NA (test code = 7511791645) 141 mmol/L 135-145 K (test code = 1245797037) 3.6 mmol/L 3.5-5 Slight hemolysis CL (test code = 7719637436) 98 mmol/L 98-108 CO2 TOTAL (test code = 0917193717) 32 mmol/L 23-31 H AGAP (test code = 3658838856) 2-16 BUN (test code = 6306653637) 10 mg/dL 7-23 Slight hemolysis GLUCOSE (test code = 3996512986) 136 mg/dL 70-110 H CREATININE (test code = 5429342293) 0.63 mg/dL 0.6-1.25 CALCIUM (test code = 0561131058) 9.1 mg/dL 8.6-10.6 eGFR (test code = 1926185132) mL/min/1.73m2 [place] (test code = ST[place]) Association of Glomerular Filtration Rate (GFR) and Staging of Kidney Disease* + -----+ --------+ +| GFR (mL/min/1.73 m2) ?| With Kidney Damage ?| ?Without Kidney Damage+ +------- +---- --+| ?>90 ?| ?Stage one ?| ? Normal ?+ ------+ ---------+--------- +| ?60-89 ?| ?Stage two ?| ? Decreased GFR ? + -----+ --------+ +| ?30-59 ?| ?Stage three ?| ? Stage three ? + -----+ --------+ +| ?15-29 ?| ?Stage four ? | ? Stage four ?+ ------+ ---------+--------- +| ?<15 (or dialysis) ? ?| ?Stage five ? | ? Stage five ?+ ------+ ---------+--------- + *Each stage assumes the associated GFR level has been in effect for at least three months. ?Stages 1 to 5, with or without kidney disease, indicate chronic kidney disease. Notes: Determination of stages one and two (with eGFR >59mL/min/1.73 m2) requires estimation of kidney damage for at least three months as defined by structural or functional abnormalities of the kidney, manifested by either:Pathological abnormalities or Markers of kidney damage (including abnormalities in the composition of the blood or urine or abnormalities in imaging tests). Lab Interpretation (test code = 04891-7) Abnormal [facility] CampusProthrombin Time / INR - Code Iiaowe8834-62-00 14:47:05* Test Item Value Reference Range Interpretation Comme [facility] PROTIME PATIENT (test code = 5964-2) See_Comment [Automated [employer]] The system which generated this result transmitted reference range: 10.1 - 12.6 Seconds. The reference range was not used to interpret this result as normal/abnormal. INR (test code = 6301-6) Normal INR <1.1; Warfarin Therapeutic range 2.0 to 3.0 or 2.5 to 3.5, depending upon the indications. Lab Interpretation (test code = 53009-1) Normal [facility] CampusaPTT - Code [id number] 14:47:05* Test Item Value Reference Range Interpretation Comme [facility] APTT Patient (test code = 3173-2) See_Comment [Automated [employer]] The system which generated this result transmitted reference range: 26 - 36 Seconds. The reference range was not used to interpret this result as normal/abnormal. Lab Interpretation (test code = 40222-8) Normal [facility] CampusCBC without Diff - Code [id number] 14:39:43* Test Item Value Reference Range Interpretation Comme [facility] WBC (test code = 6690-2) See_Comment H [Automated message] The system which generated this result transmitted reference range: 4.20 - 10.70 10*3/?L. The reference range was not used to interpret this result as normal/abnormal. RBC (test code = 789-8) See_Comment [Automated message] The system which generated this result transmitted reference range: 4.26 - 5.52 10*6/?L. The reference range was not used to interpret this result as normal/abnormal. HGB (test code = 718-7) 12.8 g/dL 12.2-16.4 HCT (test code = 4544-3) 39.7 % 38.4-49.3 MCH (test code = 785-6) 27.3 pg 26.1-32.7 MCV (test code = 787-2) 84.6 fL 81.7-95.6 MCHC (test code = 786-4) 32.2 g/dL 31.2-35 PLT (test code = 777-3) See_Comment [Automated message] The system which generated this result transmitted reference range: 150 - 328 10*3/?L. The reference range was not used to interpret this result as normal/abnormal. MPV (test code = 86093-0) 9.8 fL 9.8-13 RDW-CV (test code = 788-0) 15.3 % 12.1-15.4 RDW-SD (test code = 88585-4) 46.8 fL 38.5-51.6 NRBC x10^3 (test code = 9712691091) See_Comment [Automated [employer] ge] The system which generated this result transmitted reference range: 10*3/?L. The reference range was not used to interpret this result as normal/abnormal. NRBC/100 WBC (test code = 4432788886) See_Comment [Automated [employer]oke[employer] ge] The system which generated this result transmitted reference range: 0.0 - 10.0 /100 WBCs. The reference range was not used to interpret this result as normal/abnormal. IPF % (test code = 2330465791) Lab Interpretation (test code = 30979-7) Abnormal [facility] KQCLRYVTMG0047-00-24 02:21:10 * Test Item Value Reference Range Interpretation Comments Anticardiolipin Antibody IgG (test code = 0983736356) See_Comment [Automated message] The system which generated this result transmitted reference range: 0.0 - 10.0 GPL. The reference range was not used to interpret this result as normal/abnormal . Anticardiolipin Antibody IgM (test code = 4404493982) See_Comment [Automated message] The system which generated this result transmitted reference range: 0.0 - 10.0 MPL. The reference range was not used to interpret this result as normal/abnormal . Anticardiolipin Antibody IgA (test code = 5095521042) See_Comment [Automated message] The system which generated this result transmitted reference range: 0.0 - 15.0 APL. The reference range was not used to interpret this result as normal/abnormal . STANFORD (test code = STANFORD) Interpretation: ? IgG ?IgM ?IgANegative Values: ? <10.0 ?<10.0 ? <15.0Indeterminate ("Moss" zone) Values: ? ?10.0-19.0 ? ?10.0-25.0 ? ? 15.0-27.0Medium Values: ? 20.0-80.0 ? ?26.0-80.0 ? ? 28.0-80.0High Positive Values: ? >80.0 ?>80.0 ? >80.0 Note:Medium-high levels of anticardiolipin antibodies (mainly of the IgG isotype)have been associated with thrombosis, recurrent losses andthrombocytopenia in patients with Antiphospholipid Syndrome and SLE relateddisorders.It is recommended to repeat the test that give values in theIndeterminate "Moss" zone range at a later date (i.e. 4-6 weeks) to confirmpositivity. ?Viet R et al. ?J Thromb Haemost 2006; 4: 2210-4 Lab Interpretation (test code = 15865-1) Normal [facility] (NA, K, CL, CO2, GLUCOSE, BUN, CREATININE, CA)2022-04-03 14:15:35* Test Item Value Reference Range Interpretation Comme nts NA (test code = 9722281353) 135 mmol/L 135-145 K (test code = 7345340271) 3.2 mmol/L 3.5-5 L CL (test code = 1460152382) 104 mmol/L 98-108 CO2 TOTAL (test code = 5046634860) 23 mmol/L 23-31 AGAP (test code = 6812166697) 2-16 BUN (test code = 7284982702) 17 mg/dL 7-23 GLUCOSE (test code = 6957306264) 101 mg/dL 70-110 CREATININE (test code = 3699804413) 0.79 mg/dL 0.6-1.25 CALCIUM (test code = 5498334704) 8.4 mg/dL 8.6-10.6 L eGFR (test code = 0195087790) mL/min/1.73m2 STANFORD (test code = STANFORD) Association of Glomerular Filtration Rate (GFR) and Staging of Kidney Disease* + --+ --+ ------+| GFR (mL/min/1.73 m2) ?| With Kidney Damage ?| ?Without Kidney Damage+ --------+ --------+ +| ?>90 ?| ?Stage one ?| ? Normal ?+ ---+ ---+ -------+| ?60-89 ?| ?Stage two ?| ? Decreased GFR ? + --+ --+ ------+| ?30-59 ?| ?Stage three ?| ? Stage three ? + --+ --+ ------+| ?15-29 ?| ?Stage four ? | ? Stage four ?+ ---+ ---+ -------+| ?<15 (or dialysis) ? ?| ?Stage five ? | ? Stage five ?+ ---+ ---+ -------+ *Each stage assumes the associated GFR level has been in effect for at least three months. ?Stages 1 to 5, with or without kidney disease, indicate chronic kidney disease. Notes: Determination of stages one and two (with eGFR >59mL/min/1.73 m2) requires estimation of kidney damage for at least three months as defined by structural or functional abnormalities of the kidney, manifested by either:Pathological abnormalities or Markers of kidney damage (including abnormalities in the composition of the blood or urine or abnormalities in imaging tests). Lab Interpretation (test code = 87747-9) [facility] 14:15:[facility]* Test Item Value Reference Range Interpretation Comme nts MAGNESIUM (test code = 1372709261) 1.9 mg/dL 1.7-2.4 Lab Interpretation (test cod e = 42283-8) Normal [facility] WITH [id number] 09:34:09* Test Item Value Reference Range Interpretation Comme nts WBC (test code = 6690-2) See_Comment [Automated messa ge] The system which generated this result transmitted reference range: 4.20 - 10.70 10*3/?L. The reference range was not used to interpret this result as normal/abnormal. RBC (test code = 789-8) See_Comment L [Automated messa ge] The system which generated this result transmitted reference range: 4.26 - 5.52 10*6/?L. The reference range was not used to interpret this result as normal/abnormal. HGB (test code = 718-7) 11.4 g/dL 12.2-16.4 L HCT (test code = 4544-3) 34.7 % 38.4-49.3 L MCV (test code = 787-2) 82.4 fL 81.7-95.6 MCH (test code = 785-6) 27.1 pg 26.1-32.7 MCHC (test code = 786-4) 32.9 g/dL 31.2-35 RDW-SD (test code = 10576-3) 45.3 fL 38.5-51.6 RDW-CV (test code = 788-0) 14.9 % 12.1-15.4 PLT (test code = 777-3) See_Comment [Automated messa ge] The system which generated this result transmitted reference range: 150 - 328 10*3/?L. The reference range was not used to interpret this result as normal/abnormal. MPV (test code = 44323-3) 9.9 fL 9.8-13 NRBC/100 WBC (test code = 3061093741) See_Comment [Automated [employer] ssage] The system which generated this result transmitted reference range: 0.0 - 10.0 /100 WBCs. The reference range was not used to interpret this result as normal/abnormal. NRBC x10^3 (test code = 4543788771) See_Comment [Automated messa ge] The system which generated this result transmitted reference range: 10*3/?L. The reference range was not used to interpret this result as normal/abnormal. GRAN MAT (NEUT) % (test code = 770-8) 52.9 % IMM GRAN % (test code = 4338193179) 0.20 % LYMPH % (test code = 736-9) 33.3 % MONO % (test code = 5905-5) 11.7 % EOS % (test code = 713-8) 1.5 % BASO % (test code = 706-2) 0.4 % GRAN MAT x10^3(ANC) (test code = 1129312471) 2.48 10*3/uL 1.99-6.95 IMM GRAN x10^3 (test code = 5208750209) 0-0.06 LYMPH x10^3 (test code = 731-0) 1.56 10*3/uL 1.09-3.23 MONO x10^3 (test code = 742-7) 0.55 10*3/uL 0.36-1.02 EOS x10^3 (test code = 711-2) 0.07 10*3/uL 0.06-0.53 BASO x10^3 (test code = 704-7) 0.01-0.09 Lab Interpretation (test code = 57023-6) Abnormal [facility]ANTI-B2 GLYCOPROTEIN I [id number] 00:14:46* Test Item Value Reference Range Interpretation Comments Anti-B2 Glycoprotein 1 IgG (test code = 5690055042) See_Comment [Automated message] The system which generated this result transmitted reference range: 0.0 - 20.0 SGU. The reference range was not used to interpret this result as normal/abnormal. Anti-B2 Glycoprotein 1 IgM (test code = 6301086817) See_Comment [Automated message] The system which generated this result transmitted reference range: 0.0 - 20.0 SMU. The reference range was not used to interpret this result as normal/abnormal. Anti-B2 Glycoprotein 1 IgA (test code = 6137887611) See_Comment [Automated message] The system which generated this result transmitted reference range: 0.0 - 20.0 JERRICA. The reference range was not used to interpret this result as normal/abnormal. STANFORD (test code = STANFORD) INTERPRETATION:Values over 20 SGU, SMU, or JERRICA units are considered positive. NOTE:A positive test for anti-B2 Glycoprotein I antibodies may indicate the presence of Antiphospholipid Syndrome. ?Anti-B2 Glycoprotein I antibodies have been associated with thrombosis, recurrent losses and/or thrombocytopenia. TEST PERFORMED AT:[facility] [address], [address] [place] [address] [facility] [place] [address] Lab Interpretation (test code = 41292-4) Normal [facility]ANTI-NUCLEAR ANTIBODY-PATHOLOGIST OCGDMNAAXQSJHV6509-53-41 19:07:26ANA - Pathologist InterpretationANA HEp-2 IIFA Pathologist Interpretation Report Patient Name: Mike Francis III ? ?Antinuclear Antibody (DUARTE) Test (Anti-Cell Antibodies Test) Indirect Immunofluorescence Assay on HEp-2 Cells Screening titer: 1:80 (adults, > 18 years old), 1:40 (pediatrics, <= 18 years old)?Result: The antinuclear antibody (DUARTE) screen is negative on interpretation. Remarks:This patient has a negative antinuclear antibody (DUARTE) screening test. This suggests that the patient likely does not have a systemic autoimmune rheumatic disease that is strongly a ssociated with a positive DUARTE, such as systemic lupus erythematosus (DUARTE positive in ~95-100%), systemic sclerosis (DUARTE positive in ~60-80%), or the following disorders in which DUARTE positivity is part of the diagnostic criteria: drug-induced lupus, autoimmune hepatitis, or mixed connective tissue disease. However, the DUARTE may be negative in rare cases of systemic lupus erythematosus and systemic sclerosis. The DUARTE may also be negative in ~20% of patients presenting with autoimmune hepatitis. Additionally, DUARTE positivity is less sensitive in the diagnosis of Sjogren's syndrome (~40-70%) and marilyn matomyositis/polymyositis (~30-80%). DUARTE is not useful for the diagnosis of rheumatoid arthritis, multiple sclerosis, idiopathic thrombocytopenic purpura, thyroid disease, discoid lupus, or fibromyalgia. (https://pubmed.ncbi.nlm.nih.gov/22351917/, https://pubmed.ncbi.nlm.nih.gov/81893864/) ? ? Therefore, a diagnosis cannot be based exclusively on DUARTE detection and/or pattern and thus should be made via the integration of patient history, physical exam findings, and other diagnostic tests as clinically indicated. Karuna Anderson MD ?04/02/2022 ?2:07 PM04/02/2022 2:07 PM [facility] SERVICESCre[facility]- Nuclear Anitbody (DUARTE) Shbrzy5371-84-97 19:07:06* Test Item Value Reference Range Interpretation Comme nts DUARTE (test code = 2173010974) Negative Negative STANFORD (test code = STANFORD) Negative: ?No Anti-Nuclear Antibodies detected by IFA. Positive: ?DUARTE IFA screen performed with a 1:80 dilution in adults and a 1:40 dilution in pediatrics. ?A titer is performed and reported separately when the DUARTE is "Positive" or when "Cytoplasmic staining is observed." Lab Interpretation (test code = 76067-8) [facility]-DKAAWQSPCVDOBBKET0629-35-67 17:19:09* Test Item Value Reference Range Interpretation Comme nts Anti-Ribonucleoprotein (test code = 0628483381) Negative Negative STANFORD (test code = STANFORD) Positive - Antibod y detected.Negative - No antibody detected. Lab Interpretation (test code = 71752-2) [facility]-CANALES(SM)2022-04-01 17:19:09* Test Item Value Reference Range Interpretation Comme nts Anti-Canales (test code = 6481895679) Negative Negative STANFORD (test code = STANFORD) Positive - Antibod y detected.Negative - No antibody detected. Lab Interpretation (test code = 75548-1) [facility]-SSA(RO)2022-04-01 17:19:09* Test Item Value Reference Range Interpretation Comme nts ANTI-SSA(RO) (test code = 8845684719) Negative Negative STANFORD (test code = STANFORD) Positive - Antibod y detected.Negative - No antibody detected. Lab Interpretation (test code = 55108-2) [facility]-SSB(LA)2022-04-01 17:19:09* Test Item Value Reference Range Interpretation Comme nts Anti-SSB(LA) (test code = 4195602800) Negative Negative STANFORD (test code = STANFORD) Positive - Antibod y detected.Negative - No antibody detected. Lab Interpretation (test code = 80584-7) Normal [facility] CampusIMMUNOGLOBULIN G A M [id number] 17:18:48 * Test Item Value Reference Range Interpretation Comme nts IgA (test code = 0237768082) 141 mg/dL 70-312 IgG (test code = 7591954920) 920 mg/dL 636-1600 IgM (test code = 0087407669) 56 mg/dL 56-352 Lab Interpretation (test cod e = 27529-4) Normal [facility] (NA, K, CL, CO2, GLUCOSE, BUN, CREATININE, CA)2022-04-01 11:26:53* Test Item Value Reference Range Interpretation Comme nts NA (test code = 0569920401) 141 mmol/L 135-145 K (test code = 8788720051) 3.9 mmol/L 3.5-5 CL (test code = 2258285234) 103 mmol/L 98-108 CO2 TOTAL (test code = 8671962789) 34 mmol/L 23-31 H AGAP (test code = 8589521384) 2-16 BUN (test code = 1168873527) 9 mg/dL 7-23 GLUCOSE (test code = 3417239480) 129 mg/dL 70-110 H CREATININE (test code = 9410036380) 0.73 mg/dL 0.6-1.25 CALCIUM (test code = 1509874935) 9.1 mg/dL 8.6-10.6 eGFR (test code = 9327944832) mL/min/1.73m2 STANFORD (test code = STANFORD) Association of Glomerular Filtration Rate (GFR) and Staging of Kidney Disease* + --+ --+ ------+| GFR (mL/min/1.73 m2) ?| With Kidney Damage ?| ?Without Kidney Damage+ --------+ --------+ +| ?>90 ?| ?Stage one ?| ? Normal ?+ ---+ ---+ -------+| ?60-89 ?| ?Stage two ?| ? Decreased GFR ? + --+ --+ ------+| ?30-59 ?| ?Stage three ?| ? Stage three ? + --+ --+ ------+| ?15-29 ?| ?Stage four ? | ? Stage four ?+ ---+ ---+ -------+| ?<15 (or dialysis) ? ?| ?Stage five ? | ? Stage five ?+ ---+ ---+ -------+ *Each stage assumes the associated GFR level has been in effect for at least three months. ?Stages 1 to 5, with or without kidney disease, indicate chronic kidney disease. Notes: Determination of stages one and two (with eGFR >59mL/min/1.73 m2) requires estimation of kidney damage for at least three months as defined by structural or functional abnormalities of the kidney, manifested by either:Pathological abnormalities or Markers of kidney damage (including abnormalities in the composition of the blood or urine or abnormalities in imaging tests). Lab Interpretation (test code = 78506-5) Abnormal [facility] with Brctvxdxpbub8807-47-59 18:20:26* Test Item Value Reference Range Interpretation Comme nts WBC (test code = 6690-2) See_Comment [[employer]] The system which generated this result transmitted reference range: 4.20 - 10.70 10*3/?L. The reference range was not used to interpret this result as normal/abnormal. RBC (test code = 789-8) See_Comment [[employer]] The system which generated this result transmitted reference range: 4.26 - 5.52 10*6/?L. The reference range was not used to interpret this result as normal/abnormal. HGB (test code = 718-7) 12.0 g/dL 12.2-16.4 L HCT (test code = 4544-3) 36.8 % 38.4-49.3 L MCV (test code = 787-2) 84.0 fL 81.7-95.6 MCH (test code = 785-6) 27.4 pg 26.1-32.7 MCHC (test code = 786-4) 32.6 g/dL 31.2-35 RDW-SD (test code = 21024-0) 45.7 fL 38.5-51.6 RDW-CV (test code = 788-0) 14.9 % 12.1-15.4 PLT (test code = 777-3) See_Comment [Automated messa ge] The system which generated this result transmitted reference range: 150 - 328 10*3/?L. The reference range was not used to interpret this result as normal/abnormal. MPV (test code = 76113-9) 9.6 fL 9.8-13 L NRBC/100 WBC (test code = 5229323670) See_Comment [Automated me ssage] The system which generated this result transmitted reference range: 0.0 - 10.0 /100 WBCs. The reference range was not used to interpret this result as normal/abnormal. NRBC x10^3 (test code = 4165698510) See_Comment [Automated messa ge] The system which generated this result transmitted reference range: 10*3/?L. The reference range was not used to interpret this result as normal/abnormal. GRAN MAT (NEUT) % (test code = 770-8) 83.6 % IMM GRAN % (test code = 5798040545) 0.40 % LYMPH % (test code = 736-9) 10.6 % MONO % (test code = 5905-5) 4.9 % EOS % (test code = 713-8) 0.1 % BASO % (test code = 706-2) 0.4 % GRAN MAT x10^3(ANC) (test code = 1039223359) 8.56 10*3/uL 1.99-6.95 H IMM GRAN x10^3 (test code = 0355610543) 0.04 10*3/uL 0-0.06 LYMPH x10^3 (test code = 731-0) 1.08 10*3/uL 1.09-3.23 L MONO x10^3 (test code = 742-7) 0.50 10*3/uL 0.36-1.02 EOS x10^3 (test code = 711-2) 0.06-0.53 L BASO x10^3 (test code = 704-7) 0.04 10*3/uL 0.01-0.09 Lab Interpretation (test code = 93387-3) Abnormal [facility] A1C* Test Item Value Reference Range Interpretation Comme nts A1C (test code = 4548-4) 6.0 Consult Notes Date/Time Note Provider Source 2023-02-15 12:40:00 AZWN9LQ+n//+BxWX5tVD ZIbekuXLMj7r [id number]+LR+A 2784-07-00C26:40:00Associated Order(s): CONSULT ADULT OCCUPATIONAL THERAPY OT GENERAL EVALUATIONConsult received via Ventive, EMR reviewed and evaluation completed 02/15/23. Patient referred to occupational therapy for evaluation and treatment secondary to AMS and seizures. Patient agreeable to participate in occupational therapy.Discharge Recommendations:Therapy Needs and Potential:- Patient would benefit from continued skilled occupational therapy services to address: Decline in basic activities of daily living, Decline in instrumental activities of daily living, Decline in cognition, and Decreased endurance - Patient demonstrates good potential to improve and meet therapy goals with further skilled occupational therapy services.- Patient appears motivated to improve their B/IADLs and return to their previous level of function.- Patient demonstrates ability to tolerate at least 30-60 minutes of active participation in occupational therapy.Challenges to Home Transition:- Requires physical assistance for BADLS- Requires physical assistance for IADLS- Decreased safety awareness/judgement- Increased risk of fallsEquipment Recommendations: None, patient has or access to necessary equipmentPLAN OF CARE: At least 2x/week Precautions: Weight bearing status: NAGeneral: PPE Utilized: Gloves and Surgical mask, Fall, and ICU lines/monitoringBracing: N/ACurrent Occupational Performance and/or Treatment:AM-PAC 6 Clicks (Raw Score 0=Dependent, 24=Independent; Low function Raw Score 0= Dependent, 32=Independent):Raw Score - Daily Activity: 18 T-Scale Score - Daily Activity: 38.66 Feeding: SupervisionLB Dressing: Minimal Assistance to don underwear, pants, and socks. Extra time and assist to manage fasteners. Noted difficulty managing clothing on R side d/t vision deficits requiring cues to scan to R to appropriately manage/manipulate clothing.Toilet Transfer: Supervision using grab barFunctional Mobility:Supine <> sit independent. Pt tolerates sitting EOB approx 5 min with fluctuating levels of CGA-spv.Sit <> stand spv without ADPt performs functional ambulation to and from bathroom without AD, cues for pacing and safety.Chair transfer spv without ADPatient/caregiver educated on:Adaptive equipment , ADL training, Compensatory techniques/adaptive strategies, Fall prevention, General strengthening, Role of OT, Safety awareness, and Visual scanningPatient left sitting upright in bedside chair with call avila in reach. Spouse present and Vital signs stable . Please, see full evaluation below for more detail. OT EVALUATION:47 year old male Admit date: 02/13/2023 Date of onset: 02/13/23Admit Diagnosis: Altered mental status [R41.82]Seizures [R56.9]OT Diagnosis: Impaired BADL independence, Impaired IADL independence, Decreased endurance, Impaired self-care mobility, and Impaired cognitionPMH: Past Medical History: Diagnosis Date CAD (coronary artery disease) HLD (hyperlipidemia) HTN (hypertension) Pre-diabetes PSH: Past Surgical History: Procedure Laterality Date CRANIOTOMY BIOPSY BRAIN (SHX) Right 02/12/2022 Surgeon: Adelso Torres MD; Location[facility] PAIN: Denies pain before and after session. OCCUPATIONAL ROLES/HOME ENVIRONMENT:Home environment: Lives with spouse, 14/02 supervision/assistance is available, and Single story home. Bathroom access: YesBathroom setup: Shower with built in benchOccupation(s): DisabledFunction prior to admission: Household ambulation, Community ambulation, and Independent with BADLs, Assist with IADLs Suspected ischemic or hemorraghic stroke patient: NoEquipment prior to admission: wheelchair/walker combo, Grab bars, Hand held showerPERFORMANCE SKILLS/FACTORS: UE Muscle Tone: bilateral WNLUE ROM: bilateral AROM WFL UE Strength: [place] UE WFLHand dominance: right Dexterity/Coordination: bilateral Fine motor skills Impaired - mild tremors, spouse reports chronic d/t seizure medicationsEndurance - Sitting: Good Standing: FairSitting Balance - Static: Good Dynamic: Fair+Standing: Balance - Static Fair+ Dynamic: FairDizziness: NoSkin Integrity: RUE edemaSensation: bilateral Intact to light touch Oral Motor: WFLCommunication: Able to verbalize needs Yes Other: N/AVision: R side visual deficits noted - spouse reports this typically occurs after seizure and resolves within a few days.Hearing: good; no issues reportedCOGNITION: Spouse reports hx of memory deficits and increasing forgetfulness. Orientation: person, month but not day or year, and situationFollows Commands: 1-step Yes Multi-step Yes Inconsistencies YesSafety Awareness/Judgment: Lacks insight to deficits and Requires frequent cueingPROBLEM LIST: Decreased independence with ADL, Decreased strength/endurance for functional activity, Impaired safety awareness, and Impaired CognitionREHAB POTENTIAL/PROGNOSIS: goodPATIENT/FAMILY GOALS: to get betterTREATMENT/INTERVENTION PLAN: Functional motor treatment, Patient/Caregiver Education, Equipment recommendations, Daily living activities, Therapeutic exercises, Neuromuscular Re-Education, and Cognitive retrainingGOAL(S): By discharge, patient will increase independence in daily living skills as follows: 1 Patient will perform toilet transfer with independence.2 Patient will perform LB dressing with independence. 3 Patient will complete grooming tasks with independence while standing at the sink.4 Patient will complete toileting hygiene, including clothing management, with independence.5 Patient will increase endurance for functional activity as evidenced by ability to sustain 30 minutes of active participation. 6 Patient/caregiver will verbalize/demonstrate understanding/proficiency in the following home programs: Adaptive equipment , Compensatory techniques/adaptive strategies, Fall prevention, and General strengtheningPATIENT-FAMILY TEACHINGPatient and Family member provided with preferred teaching of verbal information on Adaptive equipment , ADL training, Compensatory techniques/adaptive strategies, Fall prevention, General strengthening, Role of OT, Safety awareness, and Visual scanning. Shows readiness to learn. Verbal instruction teaching provided. Individual needs reinforcement of teaching.Joshua Rand OTR/L, CNSTotal Timed Treatment Codes: 17 MinTotal Treatment Time: 26 MinPatient Complexity Level Moderate - An occupational therapy evaluation of moderate complexity was completed using the above tests and measures. The following information was obtained: An occupational profile and medical and therapy history, including an expanded review of medical and/or therapy records and additional review of physical, cognitive, or psychosocial history related to current functional performance, Various standardized and non-standardized assessments were used to identify at least 3-5 performance deficits related to physical, cognitive, or psychosocial skills that result in activity limitations and/or participation restrictions, and Clinical decision making of moderate analytic complexity, which includes an analysis of the occupational profile, analysis of data from detailed assessment(s), and consideration of several treatment options. Patient may present with comorbidities that affect occupational performance. Minimal to moderate modification of tasks or assistance (e.g., physical or verbal) with assessment(s) is necessary to enable patient to complete evaluation component. [id number] tqpqBV0877-33-97D50:54:28Consult [id number] .7.2.722734|[id number] e for patient [id number] K Flaherty [address] 4086GONKYASLWHBRISTZHSTCBH0834-4 5:54:281.2.840.142489.1.72 .3.15|1.2.840.823314.1.13.104.2. [id number] Rufus Rand OT [facility] 2023-02-14 14:25:34 [id number] aRfqA/JrEro9 [id number] 3452-91-69K96:25:34Associated Order(s): [facility] DISEASE [facility] CONSULTATION NOTE CLS Infectious Diseases Luis Alberto Rosario MD; Brodie Mckeon MD; Enrique Zuniga MD; Cisco Pollock MD; Malik Rich MD; Magdalena Gan MD; Laura Anne MD; Jhon Miles MD; Frank Alex MD [place] Office: [id number] [facility] [address], [place] [address] P: / F: [place] Office: [address], [place] [address] P: / F: REQUESTING CLINICIAN:Barak Poon FOR CONSULTATION:Concern for APARTMENT LEASING MANAGER infectionHISTORY OF PRESENT ILLNESS:Mike Sarah Tito III is a 47 year old male with history of seizure disorder, APARTMENT LEASING MANAGER vasculitis who was admitted early this a.m. after having breakthrough seizure and postictal confusion. History is mostly obtained from his who was present at bedside. Patient has been quite regular with his medication and has not missed any dosages. According to the , patient's current presentation is quite similar to his prior episodes of breakthrough seizures, followed by confusion. He has not had recent fever.Here, patient was febrile with Tmax of 102.1 ?F on initial evaluation. His fever has now resolved. He has had a normal WBC count. Patient has had APARTMENT LEASING MANAGER imaging, which has been reviewed. No culture data is available from this admission.Infectious disease consultation is requested for recommendations on patient's fever. By the time of my evaluation, patient was waking up, although disoriented.REVIEW OF SYSTEMS:Very limited due to patient's limited responses. The pertinent positives and negatives that I could gather are detailed in HPI. PAST MEDICAL HISTORY:Past Medical History: Diagnosis Date CAD (coronary artery disease) HLD (hyperlipidemia) HTN (hypertension) Pre-diabetes PAST SURGICAL HISTORY:Past Surgical History: Procedure Laterality Date CRANIOTOMY BIOPSY BRAIN (SHX) Right 02/12/2022 Surgeon: Adelso Torres MD; Location: [facility] SOCIAL HISTORY:Social History Tobacco Use Smoking status: Former Types: Cigarettes Passive exposure: Never Smokeless tobacco: Former Tobacco comments: Vape low dose nicotene Substance Use Topics Alcohol use: No Drug use: No FAMILY HISTORY:Family History Problem Relation Age of Onset Coronary Heart Disease Unknown Grandmother Stroke Father 60s MEDICATIONS:Current Facility-Administered Medications: acetaminophen (TYLENOL) tablet 650 mg, 650 mg, Oral, Q6HPRN, Sigifredo Boston MD, 650 mg at 02/14/23 0032 acetaminophen (TYLENOL) tablet 650 mg, 650 mg, Oral, PRN, Sigifredo Boston MD amLODIPine (NORVASC) tablet 10 mg, 10 mg, Oral, DAILY, Sigifredo Boston MD, 10 mg at 02/14/23 1314 atorvastatin (LIPITOR) tablet 20 mg, 20 mg, Oral, QHS, Sigifredo Boston MD carvediloL (COREG) tablet 25 mg, 25 mg, Oral, BID MEALS, Sigifredo Boston MD, 25 mg at 02/14/23 1315 diphenhydrAMINE (BENADRYL) tablet 25 mg, 25 mg, Oral, PRN, Sigifredo Boston MD divalproex ER (DEPAKOTE ER) 24 hr tablet 1,750 mg, 1,750 mg, Oral, BID, Dolores Caldwell, FIREARMS MODEL MAKER, 1,750 mg at 02/14/23 1316 ferrous sulfate tablet 325 mg, 325 mg, Oral, Q OTHERDAY, Sigifredo Boston MD, 325 mg at 02/14/23 1320 fluticasone propionate 50 mcg/actuation nasal spray 1 Somis, 1 Somis, Nasal, BID, Sigifredo Boston MD, 1 Somis at 02/14/23 1316 gabapentin (NEURONTIN) capsule 300 mg, 300 mg, Oral, TID, Sigifredo Boston MD, 300 mg at 02/14/23 1315 glyBURIDE (DIABETA) tablet 5 mg, 5 mg, Oral, QAM WITH BREAKFAST, Sigifredo Boston MD hydrALAZINE (APRESOLINE) tablet 25 mg, 25 mg, Oral, Q6H, Sigifredo Boston MD, 25 mg at 02/14/23 1315 hydrOXYzine (ATARAX) tablet 10 mg, 10 mg, Oral, Q6HPRN, Sigifredo Boston MD lisinopriL (PRINIVIL,ZESTRIL) tablet 40 mg, 40 mg, Oral, DAILY, Sigifredo Boston MD, 40 mg at 02/14/23 1315 pantoprazole (PROTONIX) EC tablet 40 mg, 40 mg, Oral, DAILY, Sigifredo Boston MD, 40 mg at 02/14/23 1315 predniSONE (DELTASONE) tablet 5 mg, 5 mg, Oral, DAILY, Sigifredo Boston MD, 5 mg at 02/14/23 1315 risperiDONE (RISPERDAL) tablet 1 mg, 1 mg, Oral, BID, Sigifredo Boston MDALLERGIES:Allergies Allergen Reactions Shellfish Derived Anaphylaxis Keppra [Levetiracetam] Hallucinations Onion Other - See comments Causes gas/bloating PHYSICAL EXAMINATION:VITALS:Temp: [36.8 ?C (98.2 ?F)-38.9 ?C (102.1 ?F)] 37.2 ?C (99 ?F)Pulse: [60-87] 60Resp: [13-18] 14BP: (139-190)/(86-96) 162/90GEN: Awake and alert; in no obvious distressNECK: SuppleLUNGS: Clear to auscultation bilaterallyHEART: RRR, no obvious murmursABD: Soft, nontender, nondistendedEXT: No clubbing, cyanosis, or edemaSKIN: No rashes or lesionsNEURO: Alert; disoriented; no obvious motor deficitsPSYCH: Appropriate affectLABORATORY (Reviewed):Recent pertinent labs reviewedMICROBIOLOGY (Reviewed):There are no current results on file for these tests and/or test for 1 year.QUANTATIVE CULTUREThere are no current results on file for these tests and/or test for 1 year.wound culture IMAGING / TESTS (Reviewed):CT HEAD WO CONTRASTResult Date: 02/14/2023No acute intracranial abnormality. Preliminary Report Dictated by Resident: Fely Wolfe I, David Villalba MD., have reviewed this study and agree with the above report.CT STROKE ANGIOGRAM HEADResult Date: 02/14/2023No large vessel occlusion or flow-limiting stenosis identified in the intracranial or cervical vessels. Preliminary Report Dictated by Resident: Liz Peters, Parmjit Arango MD., have reviewed this study and agree with the above report.CT STROKE ANGIOGRAM NECKResult Date: 02/14/2023No large vessel occlusion or flow-limiting stenosis identified in the intracranial or cervical vessels. Preliminary Report Dictated by Resident: Liz Peters, Parmjit Arango MD., have reviewed this study and agree with the above report. ASSESSMENT:47 year old male presents with:*Fever, resolved*APARTMENT LEASING MANAGER vasculitis*Seizure disorder with breakthrough seizure*Postictal confusion-Patient's fever has resolved. On clinical evaluation, there is no obvious evidence of APARTMENT LEASING MANAGER infection or meningitis. He seems to be waking up and improving without antimicrobials.PLAN:-Monitor off antimicrobials.-Given reported history of APARTMENT LEASING MANAGER vasculitis, will screen for syphilis.-No obvious indication for LP from ID standpoint currently.-Further recommendations to follow based upon clinical course.Thank you for this consultation; will continue to follow. [id number] [id number]:35:21Consult noteTXT1.2.840.443317.1.13.104.2 .7.2.740562|[id number] e for patient [address] NdarLjmlixtwlWjfrjzewbGUTK239162 4452JVTCREIXOEXIKLDSJVYVVI7679-4 02-14T17:35:211.2.840.889287.1.72 .3.15|1.2.840.290646.1.13.104.2. [id number] [facility] 2023-02-14 09:51:00 [id number] YAjpTBO4eib+Nnj1dIxzXcpHithVlLQr 8864-86-86U21:51:00Associated Order(s): CONSULT NEUROLOGY Neurology ConsultationPatient's Name: Mike Francis IIIMRN: [id number] of : 1975 Age: 47 yrsDate of Admission: 3Date of Service: 02/14/2023Referring provider:Dr Jeffrey for Consultation:Seizure History of Present Illness:47 yo with history of seizures and APARTMENT LEASING MANAGER vasculitis on depakote presenting as a transfer from an outside hospital for breakthrough seizures. Patient transferred to ICU for higher level of care. Patient currently post ictal and neurology asked to evaluate. at bedside reports compliance with Depakote and not missing any doses. reports having a fever recently. Patient admitted to ICU and neurology asked to evaluate Past Medical History: Diagnosis Date CAD (coronary artery disease) HLD (hyperlipidemia) HTN (hypertension) Pre-diabetes Past Surgical History: Procedure Laterality Date CRANIOTOMY BIOPSY BRAIN (SHX) Right 02/12/2022 Surgeon: Adelso Torres MD; Location: [facility] Allergies Allergen Reactions Shellfish Derived Anaphylaxis Keppra [Levetiracetam] Hallucinations Onion Other - See comments Causes gas/bloating Medication Administration Record reviewed.Current Facility-Administered Medications: acetaminophen (TYLENOL) tablet 650 mg, 650 mg, Oral, Q6HPRN, Sigifredo Boston MD, 650 mg at 02/14/23 0032 acetaminophen (TYLENOL) tablet 650 mg, 650 mg, Oral, PRN, Sigifredo Boston MD amLODIPine (NORVASC) tablet 10 mg, 10 mg, Oral, DAILY, Sigifredo Boston MD atorvastatin (LIPITOR) tablet 20 mg, 20 mg, Oral, QHS, Sigifredo Boston MD carvediloL (COREG) tablet 25 mg, 25 mg, Oral, BID MEALS, Sigifredo Boston MD diphenhydrAMINE (BENADRYL) tablet 25 mg, 25 mg, Oral, PRN, Sigifredo Boston MD divalproex ER (DEPAKOTE ER) 24 hr tablet 1,750 mg, 1,750 mg, Oral, BID, Dolores Caldwell, FIREARMS MODEL MAKER ferrous sulfate tablet 325 mg, 325 mg, Oral, Q OTHERDAY, Sigifredo Boston MD fluticasone propionate 50 mcg/actuation nasal spray 1 Somis, 1 Somis, Nasal, BID, Sigifredo Boston MD gabapentin (NEURONTIN) capsule 300 mg, 300 mg, Oral, TID, Sigifredo Boston MD glyBURIDE (DIABETA) tablet 5 mg, 5 mg, Oral, QAM WITH BREAKFAST, Sigifredo Boston MD hydrALAZINE (APRESOLINE) tablet 25 mg, 25 mg, Oral, Q6H, Sigifredo Boston MD, 25 mg at 02/14/23 0608 hydrOXYzine (ATARAX) tablet 10 mg, 10 mg, Oral, Q6HPRN, Sigifredo Boston MD KCL (KLOR-CON M20) tablet 40 mEq, 40 mEq, Oral, ONCE, Dolores Caldwell, FIREARMS MODEL MAKER lisinopriL (PRINIVIL,ZESTRIL) tablet 40 mg, 40 mg, Oral, DAILY, Sigifredo Boston MD pantoprazole (PROTONIX) EC tablet 40 mg, 40 mg, Oral, DAILY, Sigifredo Boston MD predniSONE (DELTASONE) tablet 5 mg, 5 mg, Oral, DAILY, Sigifredo Boston MD risperiDONE (RISPERDAL) tablet 1 mg, 1 mg, Oral, BID, Sigifredo Boston MD Social History: reports that he has quit smoking. His smoking use included cigarettes. He has never been exposed to tobacco smoke. He has quit using smokeless tobacco. He reports that he does not drink alcohol and does not use drugs.Family History:family history includes Coronary Heart Disease in his unknown relative; Stroke in his father.Review of Systems Unable to obtain Vitals: 02/14/23 0800 BP: Pulse: Resp: Temp: 36.8 ?C (98.2 ?F) SpO2: Physical Exam Neurological Exam:General appearance: alert, awake, oriented to self only Head/Eyes: atraumatic, clear cornea, normal conjunctiva/sclera, normocephalicENT: moist mucosal membranesNeck: full range of motion, supple/no meningismus, no masses or swellingCardiovascular: regular rate and rhythmRespiratory: aerating well, no distressAbdomen: soft, no distentionExtremities: moves all, normal inspection, normal temperature, no edemaMusculoskeletal: full range of motion, normal inspection, painless range of motionSkin: dry, intact, normal color, normal temperatureNeuro/APARTMENT LEASING MANAGER: Mental status: alert, oriented X self. Aphasic and perseverating CN: EOMI, PERRL, CN II-XII intactReflexes: equivocal toes bilaterally Motor: no motor deficitsSens: no sensory deficits to LTCoord: no cerebellar deficitsGait: unable to be tested secondary to bedrestDiagnostic Studies:Recent Results (from the past 24 hour(s)) MRSA / MSSA SCREEN BY PCR, NARES Collection Time: 02/13/23 11:26 PM Specimen: NARES, BOTH SIDES; Swab Result Value Ref Range MRSA Screen by PCR, Nares Negative Negative MSSA Screen by PCR, Nares Negative Negative MRSA/MSSA Positive? No No CBC WITH DIFF Collection Time: 02/14/23 1:49 AM Result Value Ref Range WBC 6.74 4.20 - 10.70 10*3/?L RBC 4.15 (L) 4.26 - 5.52 10*6/?L HGB 11.6 (L) 12.2 - 16.4 g/dL HCT 36.4 (L) 38.4 - 49.3 % MCV 87.7 81.7 - 95.6 fL MCH 28.0 26.1 - 32.7 pg MCHC 31.9 31.2 - 35.0 g/dL RDW-SD 47.5 38.5 - 51.6 fL RDW-CV 14.6 12.1 - 15.4 % PLT 207 150 - 328 10*3/?L MPV 9.5 (L) 9.8 - 13.0 fL NRBC/100 WBC 0.0 0.0 - 10.0 /100 WBCs NRBC x10^3 <0.01 10*3/?L GRAN MAT (NEUT) % 49.5 % IMM GRAN % 0.90 % LYMPH % 27.7 % MONO % 20.5 % EOS % 1.0 % BASO % 0.4 % GRAN MAT x10^3(ANC) 3.33 1.99 - 6.95 10*3/uL IMM GRAN x10^3 0.06 0.00 - 0.06 10*3/uL LYMPH x10^3 1.87 1.09 - 3.23 10*3/uL MONO x10^3 1.38 (H) 0.36 - 1.02 10*3/uL EOS x10^3 0.07 0.06 - 0.53 10*3/uL BASO x10^3 0.03 0.01 - 0.09 10*3/uL BASIC METABOLIC PANEL (NA, K, CL, CO2, GLUCOSE, BUN, CREATININE, CA) Collection Time: 02/14/23 1:49 AM Result Value Ref Range NA 140 135 - 145 mmol/L K 3.4 (L) 3.5 - 5.0 mmol/L CL 105 98 - 108 mmol/L CO2 TOTAL 30 23 - 31 mmol/L AGAP 5 2 - 16 BUN 15 7 - 23 mg/dL GLUCOSE 88 70 - 110 mg/dL CREATININE 0.87 0.60 - 1.25 mg/dL CALCIUM 8.3 (L) 8.6 - 10.6 mg/dL eGFR 93.3 mL/min/1.73m2 THYROID STIMULATING HORMONE Collection Time: 02/14/23 1:49 AM Result Value Ref Range TSH 2.04 0.45 - 4.70 mIU/L Imaging Studies:Neuro-imaging was directly viewed by me, and agree with formal report that notes:Impression:1. Seizure disorder 2. Post ictal state 3. APARTMENT LEASING MANAGER vasculitis 47 yo with APARTMENT LEASING MANAGER vasculitis presenting with breakthrough seizure in setting of recent fever. Possible breakthrough due to recent fever/infection. Current exam with aphasia suggestive of possible post ictal stateRecommendations:1. CT head 2. EEG 3. Continue home Depakote 4. Valproic acid level 5. Will follow Thank you for allowing us to participate in the care of your patient. Please do not hesitate to call Neurology with any further questions or changes in neurological status. Duglas Miller MD Neurologist [id number] olejLJ9860-37-25K68:58:35Consult noteTXT1.2.840.571713.1.13.104.2 .7.2.336859|[id number] e for patient [address] AgvsCypsjjvkgQyfqfzlfkJVCW264502 6062NCNHKRPKHWIQTDCZVUMVSS9886-8 7-24T09:58:351.2.840.661625.1.72 .3.15|1.2.840.735247.1.13.104.2. 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 She stated that patient has seizure episode this morning around 4 AM, described as generalized shaking, deviation of head/eyes to the left. After seizure episode resolved, patient was unable to speak, shaking, unable to walk and was confused and drowsy. He took his medications and slept. He had another seizure episode in afternoon around 1 PM. Since then, patient has been confused and lethargic and has been having fevers. reported that patient's last seizure episode was in January, last rituximab dose was on December 01, patient has been on maintenance prednisone currently on 10 mg. She denied any sick contact or COVID-19 exposure. Patient was at baseline yesterday before sleeping, he did not complain of cough, shortness of breath, rhinorrhea, chills, breathing difficulty, chest pain, palpitation, urinary/GI symptoms, any new onset weakness, myalgias.ED course:Initial vitals: - Blood pressure 178/120, pulse 107, respiratory rate 20, SPO2 95% on room air, temperature 39.2 ?C(102.5 ?F).Labs: - CBC, CMP, magnesium unremarkable, valproic acid levels 13.4(within normal limit), lactic acid 1.18. UA with RBC, no concern for infection, COVID-19 positive.Imaging:- CT head without contrast with no acute intracranial abnormality. Postsurgical changes of right frontal craniotomy, unchanged periventricular and deep white matter changes secondary to known APARTMENT LEASING MANAGER vasculitisIntervention: - Neurology was consulted. Ibuprofen 800, normal saline bolus 1 L, IV lacosamide(Vimpat) w2RINHHC OF SYSTEMS(-)=Negative,(+)=Positive See HPIPAST MEDICAL HISTORY Past Medical History: Diagnosis Date CAD (coronary artery disease) HLD (hyperlipidemia) HTN (hypertension) Pre-diabetes Past Surgical History: Procedure Laterality Date CRANIOTOMY BIOPSY BRAIN (SHX) Right 02/12/2022 Surgeon: Adelso Torres MD; Location: [facility] Family History Problem Relation Age of Onset Coronary Heart Disease Unknown Grandmother Stroke Father 60s ALLERGIESAllergies Allergen Reactions Shellfish Derived Anaphylaxis Keppra [Levetiracetam] Hallucinations Onion Other - See comments Causes gas/bloating MEDICATIONSNo current facility-administered medications on file prior to encounter. Current Outpatient Medications on File Prior to Encounter Medication Sig Dispense Refill divalproex ER 500 mg 24 hr tablet Take 4 tablets by mouth in the morning and 4 tablets in the evening. 240 tablet 3 atorvastatin 20 mg tablet Take 1 tablet by mouth at bedtime. 30 tablet 0 gabapentin 300 mg capsule Take 1 capsule by mouth in the morning and 1 capsule at noon and 1 capsule in the evening. 90 capsule 5 glyBURIDE 5 mg tablet Take 1 tablet by mouth daily with breakfast. 30 tablet 2 hydrALAZINE 25 mg tablet Take 1 tablet by mouth every 6 (six) hours. 90 tablet 0 lisinopriL 40 mg tablet Take 1 tablet by mouth in the morning. 30 tablet 11 metFORMIN 1,000 mg tablet Take 1 tablet by mouth in the morning and 1 tablet in the evening. Take with meals. 60 tablet 0 fluticasone propionate (FLONASE ALLERGY RELIEF) 50 mcg/actuation nasal spray Use 1 Somis in each nostril in the morning and 1 Somis in the evening. 16 g 0 amLODIPine 10 mg tablet Take 1 tablet by mouth in the morning. 30 tablet 0 carvediloL (COREG) 25 mg tablet Take 1 tablet by mouth in the morning and 1 tablet in the evening. Take with meals. 60 tablet 0 diphenhydrAMINE 25 mg tablet Take 1 tablet by mouth as needed for Allergies (Before infusion). 25 tablet 0 ferrous sulfate 325 mg (65 mg iron) tablet Take 1 tablet by mouth every other day. 15 tablet 0 hydrOXYzine 10 mg tablet Take 1 tablet by mouth every 6 (six) hours as needed for Itching. 90 tablet 2 pantoprazole 40 mg EC tablet Take 1 tablet by mouth in the morning. 30 tablet 5 predniSONE 5 mg tablet Take 4 tablets by mouth daily for 7 days, THEN 3.5 tablets daily for 7 days, THEN 3 tablets daily for 7 days, THEN 2 tablets daily for 300 days. 674 tablet 0 risperiDONE 1 mg tablet Take 1 tablet by mouth in the morning and 1 tablet in the evening. 60 tablet 5 acetaminophen (TYLENOL) 325 mg tablet Take 2 tablets by mouth as needed (Before infusion). 1 tablet 0 POTASSIUM-99 ORAL Take 99 mg by mouth daily. MULTIVITS-MINERALS/FA/LYCOPENE (ONE-A-DAY MEN'S MULTIVITAMIN ORAL) Take by mouth. skyxs-8j-lnr-epa-fish oil-D3 (FISH OIL-VIT D3) 360 mg-1,200 mg -1,000 unit Cap Take by mouth. SOCIAL HISTORYSocial History Socioeconomic History Marital status: Occupational History Occupation: [employer] Tobacco Use Smoking status: Former Types: Cigarettes Passive exposure: Never Smokeless tobacco: Former Tobacco comments: Vape low dose nicotene Substance and Sexual Activity Alcohol use: No Drug use: No Social Determinants of Health Financial Resource Strain: Low Risk (02/14/2023) Overall Financial Resource Strain (CARDIA) Difficulty of Paying Living Expenses: Not hard at all Food Insecurity: No Food Insecurity (02/14/2023) Hunger Vital Sign Worried About Running Out of Food in the Last Year: Never true Ran Out of Food in the Last Year: Never true Transportation Needs: No Transportation Needs (02/14/2023) PRAPARE - Transportation Lack of Transportation (Medical): No Lack of Transportation (Non-Medical): No Physical Activity: Inactive (02/14/2023) Exercise Vital Sign Days of Exercise per Week: 0 days Minutes of Exercise per Session: 0 min Social Connections: Unknown (02/14/2023) Social Connection and Isolation Panel [NHANES] Frequency of Communication with Friends and Family: More than three times a week Marital Status: Housing Stability: Low Risk (02/14/2023) Housing Stability Vital Sign Unable to Pay for Housing in the Last Year: No Number of Places Lived in the Last Year: 1 Unstable Housing in the Last Year: No PHYSICAL EXAMINATIONVitals: 03/20/23 2200 03/21/23 0030 03/21/23 0038 03/21/23 0100 BP: (!) 157/105 (!) 153/135 (!) 154/72 Pulse: 88 79 68 Resp: 13 20 Temp: 38.4 ?C (101.2 ?F) TempSrc: Oral SpO2: 93% 97% Weight: Height: 1.956 m (6' 5") General: alert and oriented x 2 (person and date/time); responsive, calm, repeating his date of birthLungs: clear to auscultation bilaterallyCardio: regular rate and rhythmAbdomen: soft; non-tender; non-distended; normoactive bowel soundsExtremities: no clubbing, cyanosis, or edemaLABS - reviewed pertinent labs as below:See HPIIMAGING - reviewed, pertinent results as below: CT head without contrastFINDINGS: Redemonstrated postsurgical changes of right frontal craniotomy. Theventricles and cerebral sulci are unchanged in caliber and configuration.No significant change in the asymmetric dilatation of the left lateralventricle temporal and occipital horns. No midline shift or pathologicalextra-axial fluid collection is present. The basal cisterns areunremarkable. No acute intracranial hemorrhage or significant mass effect is visualized.Redemonstrated small left occipital lobe chronic infarct. Scatteredperiventricular and deep white matter hypodensities are nonspecific butlikely represent related to the patient's known history of APARTMENT LEASING MANAGER vasculitis.The clements-white matter differentiation is preserved. The mastoid air cells and visualized paranasal air sinuses are clear. Thecalvarium and central skull base are unremarkable. The small area of fatstranding over the location of craniotomy appears to mildly increasecompared to the prior indicating nonspecific inflammatory changes. IMPRESSION 1. No acute intracranial abnormality. 2. Postsurgical changes of right frontal craniotomy. 3. Unchanged periventricular and deep white matter changes likely relatedto the patient's known APARTMENT LEASING MANAGER vasculitis.ASSESSMENT/PLANMike Sarah Francis III is a 48 year old male with PMH as listed above, admitted to the hospital with:Breakthrough seizuresCOVID-19 infectionPrimary APARTMENT LEASING MANAGER angiitis(biopsy-proven 03/2022)Patient presented with 2 episodes of seizures in the setting of incidentally found COVID. CT head negative for acute findings, labs unremarkable, Depakote level therapeutic febrile since last seizure episode which he experienced previously after seizure episodes. Per neurology, presentation consistent with breakthrough seizures triggered by COVID-19 infection. Patient was previously admitted in October and January for seizure episodes, at that time patient's antiepileptic levels were therapeutic as well. Since patient had only transient control of seizures despite up titration of Depakote dose recently, Vimpat is added. Regarding COVID-19, patient asymptomatic from COVID standpoint with no significant risk factors, baseline monitoring labs showed normal Pro-Regino, ferritin and mildly elevated LDH, D-dimer. Per current COVID-19 guidelines, symptomatic treatment only at this time.- Admit to [facility]-Patient currently n.p.o. as patient appeared confused. Will do bedside swallow in a.m. before starting diet.- Follow-up neurology recommendations-Continue home Depakote 2 g twice daily.- Start Vimpat loading dose 100 mg followed by maintenance 50 mg twice daily- avoid the following medications as they can also lower the seizure threshold: verapamil, diltiazem, imipenem, cefepime, bupropion, lithium, fentanyl, tramadol, meropenem- Patient warned not to drive for 3 months from the last seizure per [place] State Law. Patient was also warned to be careful when swimming alone, climbing ladders or operating heavy machinery and was advised to avoid drinking alcohol, and sleep deprivation or fatigue as this can lower seizure threshold. - Symptomatic treatment for COVID. Monitor closely.HypertensionHyperlipidemiaDiabetes mellitusCoronary artery diseaseGERD-Continue home medications: Amlodipine 10 mg, Lipitor 20 mg, Coreg 25 mg, gabapentin 300 mg, hydralazine 25 mg every 6 hours, lisinopril 40 mg, risperidone 1 mg twice daily pantoprazolePain ControlledTylenolProphylaxis: DVT- enoxaparinStress Ulcer: pantoprazoleCode Status: addressed: [facility] ssociated attestation - Oma Obando MD - 03/21/2023 4:22 AM CDT After discussion with Dr. Virk, patient was examined with the resident. I agree with resident's note, any necessary changes/additions are mentioned below. For full note please refer to resident's note. 48-year-old gentleman admitted to the hospital due to seizures at home, COVID-19 infection, acute metabolic encephalopathy due to seizures.WBC count of 5.93, hemoglobin stable at baseline, electrolytes are within normal limits. Minimally elevated LDH, UA is negative for any signs of infection. CT head was negative for any acute pathology, care has been discussed with neurology. Patient started on Lamictal, continue with Vimpat.Date of service 03/21/2023Oma Obando MD 03/21/2023 4:14 AMAssistant Professor of General Medicine. 97716-0Cuoaxll and physical [id number], Saad M.1.2.840.487402.1.13.104.2.7.2.083971TyqxGisella GutierrezFX2592-71-82S34:22:47History and physical noteTXT1.2.840.830624.1.13.104.2.7.2.66960 9|[id number] for patient ylhe65294-1Tylgcdk and physical noteLNUT[address] Wy[id number] QVELWMPHDIULUIEA7606-14-82A04:22:471.2.840 .440658.1.72.3.15|1.2.840.964552.1.13.104. 2.7.2.727879_[id number] [facility] 2023-02-14 01:18:10 s2d714fppFKjtlTeMqC+ A0Ko6Ee9A3IfknTcqfdY/N FzZfUqEBLofUrW9TxinDik0176-35-25X60:18:10F ormatting of this note is different from the original.[facility] Intensive Care History and Physical Date of Service: 02/14/2023 01:19 IMU day: 1Intubation Day: n/aCHIEF COMPLAINT: Worsening mentation/altered mental statusHISTORY OF PRESENT ILLNESSMike Francis III is a 47 year old male who presented to [facility] with worsening seizure activity and post-ictal worsening lethargy. Request was made for ICU level of care. Transferred here because well known to [facility]. On arrival pt. 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 Tobacco Use Smoking status: Former Types: Cigarettes Passive exposure: Never Smokeless tobacco: Former Tobacco comments: Vape low dose nicotene Substance and Sexual Activity Alcohol use: No Drug use: No Social Determinants of Health Financial Resource Strain: Low Risk (10/25/2022) Overall Financial Resource Strain (CARDIA) Difficulty of Paying Living Expenses: Not hard at all Food Insecurity: No Food Insecurity (10/25/2022) Hunger Vital Sign Worried About Running Out of Food in the Last Year: Never true Ran Out of Food in the Last Year: Never true Transportation Needs: No Transportation Needs (10/25/2022) PRAPARE - Transportation Lack of Transportation (Medical): No Lack of Transportation (Non-Medical): No Physical Activity: Sufficiently Active (10/25/2022) Exercise Vital Sign Days of Exercise per Week: 7 days Minutes of Exercise per Session: 60 min Social Connections: Unknown (10/25/2022) Social Connection and Isolation Panel [NHANES] Frequency of Communication with Friends and Family: More than three times a week Marital Status: Housing Stability: High Risk (10/25/2022) Housing Stability Vital Sign Unable to Pay for Housing in the Last Year: Yes Number of Places Lived in the Last Year: 1 Unstable Housing in the Last Year: No ALLERGIESAllergies Allergen Reactions Shellfish Derived Anaphylaxis Keppra [Levetiracetam] Hallucinations Onion Other - See comments Causes gas/bloating REVIEW OF SYSTEMS(-)=Negative,(+)=Positive Denies N/V/CP/SOBPHYSICAL EXAMINATIONVitals: 02/13/23 2300 02/13/23 2321 02/14/23 0000 BP: (!) 189/95 (!) 190/96 Pulse: 87 70 Resp: 18 13 SpO2: 100% 100% Weight: 120 kg (264 lb 8.8 oz) Height: 1.956 m (6' 5") Expressive difficultySleepy on interviewOtherwise unremarkable physical examREVIEW OF DATANo results for input(s): "WBC", "HGB", "MCV", "PLT" in the last 72 hours.EOS x10^3 (10*3/uL) Date Value 01/18/2023 0.08 No results for input(s): "ALB" in the last 72 hours.No results for input(s): "NA", "K", "CL", "TCO2", "AGAP", "BUN", "CREAT", "CA", "PHOS" in the last 72 hours.Invalid input(s): "GLUC"No results for input(s): "ACPH", "ACPCO2", "ACHCO3", "ACO2HB" in the last 72 hours.Recent Labs TSH 0.76 TSH (mIU/L) Date Value 03/31/2022 0.76 02/13/2022 1.24 ALBUMIN (g/dL) Date Value 01/18/2023 3.9 ALBUMIN-Q (g/dL) Date Value 09/19/2015 4.7 pulmonary function tests: No components found for: "PFT"MICROBIOLOGYCultures:Antibiotics:Line s/catheters:PIVsRADIOLOGYNo final results containing an impression from the past 30 days were found.Problem List:Principal Problem: Altered mental status (02/14/2023) (POA: Yes)Resolved Problems: * No resolved hospital problems. *Assessment/Plan:Mike Francis III is a 47 year old male admitted with altered mental statusNeuroDr. Marcano aware of pt. Chronic APARTMENT LEASING MANAGER Vasculitis with seizure disorderChecking basic labsTSHPer , pt. [facility].Will reordered all meds.Once plan in place, can likely transfer to Floor.Does not appear to be at increased risk of seizures at this point.RespNo issuesCardiovascularHTN is presentFEN/GIStress ulcer prophylaxis: Not indicatedDiet plan:Can advance as toleratedIDPresented with a fever- treated symptomaticallyWill check CBC, see if S/S of infxn, could be driving worsening mental state- no clear source at this timeRenalAwait labs HemeChecking labsEndoAvoid hyper or hypoglycemiaMSKIntact for right nowDVT prophylaxis: Heparin SQ for nowDispo:IMUPrognosis:FairCode Status: FullVictor Ludy [facility] Hyblrodoletedo77/24/231:19 AM 37372:I spent a total of 40 minutes reviewing the chart and test results, obtaining the history, performing the exam and MDM along with placing orders, charting, and speaking with the patient/family. 04282-2Jetlcjq and physical gfneIJ7282-05-95R67:25:07History and physical noteTXT1.2.840.762056.1.13.104.2.7.2.01121 9|[id number] for patient [address] HmkmHwfmhgnwtInetnkrgeIKOK8252563181FAPDQZ VIQYMCPXKGLXFGRQ0514-47-36O45:25:071.2.840 .700331.1.72.3.15|1.2.840.456549.1.13.104. 2.7.2.727879_[id number] [facility] Notes Date/Time Note Provider Source 2023-03-22 13:46:18 rgSFAcngWHJp7l4GAxBh t+yUXtLcvKuIS P2y1O34npASE9LFqmQgfqBr22sk0wPI70 16-03-29T13:46:18 TRANSITIONAL CARE MANAGEMENT ASSESSMENT03/22/2023 Mike Francis [id number] Francis III is a 48 year old Black or male was admitted on 03/20/[address] He was discharged on 03/21/23 with discharge disposition of HR- Routine Discharge.Admitting Physician: Oma ObandoDischarge Diagnosis: Breakthrough Seizure 2/2 primary APARTMENT LEASING MANAGER angitis No linked episodesTCM Zwv-qvep-js-face outreach documentation:Discharge AssessmentChart Assessed: 03/22/23TCM Outreach Completed: 03/22/23Do you have a few minutes to speak with me about how you are doing at home?: Yes (Per patient is doing ok taking a nap)Discharge InstructionsDo you understand your at-home instructions?: YesMedicationsHave you filled your prescriptions and do you have them in your home? : YesDo you know how to take your medications?: YesSuppliesDid you receive applicable home medical supplies/equipment?: N/AFollow Up AppointmentHas a follow up appointment been scheduled?: YesDo you have any questions about your follow up appointments?: NoAre you able to get to your appointment? Who will be taking you?: Yes (spouse)Home Health AssistanceHas the home health nurse contacted you since you've been home?: N/ASurvey - RecognitionIs there anything you would like to share about your recent hospitalization, or anyone you would like to recognize?: NoDo you have any suggestions for improvement?: NoDo you have any other questions or concerns at this time?: NoFuture Appointments: Future Appointments Provider Department Dept Phone 05/23/2023 1:30 PM (Cmme), Girish [facility] Engagement and Education [facility], [place] [phone] 05/27/2023 3:00 PM Elin Vieyra MD [facility] Neurology, PCP [place] [phone] 06/03/2023 8:45 AM Tasha Smart Infusion Chair [facility] [phone] 06/14/2023 9:30 AM Marlon Bush MD [facility] Eye [place], [place] [phone] 84056-2Juptsyfox encounter RhnqZR2197-14-02C26:46:55Telephon e encounter NoteTXT1.2.840.572629.1.13.104.2. 7.2.558977|[id number] for patient cnrc90426-4LysnHJ541583608Bsgue B Porter RN[address] EnbeHlktgytmaZouyoxgkmPEDL5953799 219TJTMGVKUULVSBHZSODDSHM6114-02- 29T13:46:551.2.840.225368.1.72.3. 15|1.2.840.906313.1.13.104.2.7.2. 727879_[id number] Jewell Mckeon RN [facility] 2023-03-21 16:36:25 9AO5Jff9SubfShZ5/Jack t1oOMw4XF7Z5C 9sh4FYh43Jec+52RgaqEys0rg4+xmoY20 16-03-28T16:36:25 Problem: Falls, Risk ofGoal: Absence of fallsOutcome: Resolved Problem: Seizures, Risk of / or ActualGoal: Absence of injury related to seizure activityOutcome: ResolvedGoal: Absence of seizure activityOutcome: Resolved 44398-0Ppyg of care obvaBM9146-97-99E41:36:30Plan of care noteTXT1.2.840.119912.1.13.104.2. 7.2.453934|[id number] for patient ilxj72781-5UakhDT846249429Ggvof Bentum RNUT[address] RetiMuebkxdtnDotxznudtVEWI0137661 899YHOPJCBWPKCUIJJRGAEHMJ7806-36- 28T16:36:301.2.840.771100.1.72.3. 15|1.2.840.432234.1.13.104.2.7.2. 727879_[id number] Sandra Lopez RN [facility] 2023-03-21 01:56:57 Dqh56vCSXOFQ91BCx9Gr BEkoKsVMZM/at 5OOtPbMDwpGLq2IEV5hlTQm2u9aIU4i93 16-03-28T01:56:57 Problem: Falls, Risk ofGoal: Absence of fallsOutcome: Progressing as expected Problem: Seizures, Risk of / or ActualGoal: Absence of injury related to seizure activityOutcome: Progressing as expectedGoal: Absence of seizure activityOutcome: Progressing as expected 00550-2Tool of care mvkqCI3798-22-82B95:57:00Plan of care noteTXT1.2.840.753284.1.13.104.2. 7.2.847368|[id number] for patient pcgt32017-1VndzUX355769842Tiwkzz Ino Mendoza RN[address]TXTX[address] 706CDCWQZQBEZVYBEWIKPKVHX8918-01- 28T01:57:001.2.840.926401.1.72.3. 15|1.2.840.761746.1.13.104.2.7.2. 727879_[id number] Shama Ino Mendoza RN [facility] 2023-03-20 23:42:28 ZLGT4per3twalrmhfj/c vPObKpUvLY5kB 7rT4zdFZIvb+MwB1b8q3FkfRQf5LMrN93 16-03-27T23:42:28 Resident at to assess ptPt transported to the floor via stretcher with [facility] transport and significant other. Patient aaox2, breathing even/unlabored, in NAD. Patient stable for transport at this time. 89680-2Rqrmxcgur department IqgdNZ1995-83-76N27:44:37Emergen y department NoteTXT1.2.840.959918.1.13.104.2. 7.2.620739|[id number] for patient ucjd09311-0ZvlvZD792847903Louvnba R Davenport RNUT[address]TXTX[address] 860QEBCARTNNVXQDNKCQJKKZW9934-24- 27T23:44:371.2.840.452091.1.72.3. 15|1.2.840.955473.1.13.104.2.7.2. 727879_[id number] Nazia Galloway RN [facility] 2023-03-20 23:24:49 AmjiuoX5TNx6PaQzNtvR RdOuIkGno3Lh7 yvrRgdCzwQQthFduyA1cVwaLMZvna+q20 16-03-27T23:24:49 Report called to Shama DUONG on 9C. POC discussed, questions answered. Pending transportation at this time 13129-3Ezgqwwxcf department UilpRT0682-90-22T47:26:01[facility] NoteTXT1.2.840.154927.1.13.104.2. 7.2.667629|[id number] for patient [address] 681IDJUWBBUXZRKEOPNVESULI9244-80- 27T23:26:011.2.840.133455.1.72.3. 15|1.2.840.629652.1.13.104.2.7.2. 727879_[id number] [facility] 2023-03-20 22:00:00 g7V7YvJy0A8guyMwhuQj X9qlJKspVYZDm /lLpUcavCMJRoSBKTmFekiQbj7FbVla97 16-03-27T22:00:00 Pt now oriented to name, but unable to remember birthday, where he is or what happened. 16120-0Fjypwwfra department JhhfTF9326-57-64D40:14:07[facility] department NoteTXT1.2.840.123965.1.13.104.2. 7.2.477110|[id number] for patient jyid04834-9ZhceCUPQADEQVW[address]TXTX[address] 637LGVFXONNMYRHFWZNVDXSNS9225-96- 27T22:14:071.2.840.529042.1.72.3. 15|1.2.840.165612.1.13.104.2.7.2. 727879_[id number] [facility] 2023-03-20 21:08:52 86oGaAzKyihSGUz1FOxu 22F9Lp92msL25 888tIXxNH1VddSPLTMzm6LavT80xKMt38 16-03-27T21:08:52 Neuology Resident at to assess pt. Resident notified of changes 96089-6Zllsrjjbt department JvwgIC7945-28-61K49:09:19Emergen y department NoteTXT1.2.840.850856.1.13.104.2. 7.2.681498|[id number] for patient qwds60267-0ZsyqXTJIPBRGQT[address]TXTX[address] 644FRYQJVLCFPRVZITDMZJIMM8731-75- 27T21:09:191.2.840.044876.1.72.3. 15|1.2.840.573432.1.13.104.2.7.2. 727879_[id number] [facility] 2023-03-20 21:00:00 NY2ep2BlbFW5LQHYzmbz gwxq9IsSBy0Up z7wsz55AktQMYIUz0LgCnaA4dnQTGe873 16-03-27T21:00:00 Pt resting in stretcher on continuous case monitor. Upon entry to room pt sleeping in stretcher. Pt AOx0, per family member this has happened before but not since they have been at the hospital. Kianna HARMON notified. 86775-1Uennkdonj department DrwjLL3346-81-96A20:29:47[facility] department NoteTXT1.2.840.502844.1.13.104.2. 7.2.293119|[id number] for patient lffg89963-6VupeUUPHIUMMGG[address]TXTX[address] 976EETGTRBUODGSFTWDMTMGPD1307-13- 27T21:29:471.2.840.726164.1.72.3. 15|1.2.840.352840.1.13.104.2.7.2. 727879_[id number] [facility] 2023-03-20 19:06:49 z/rnKxLwwgahhbs9GoXJ Dr3IVtZ5bD/r2 PFUvPCK8Nv187aZC/zv7dW5U5mjAZm723 16-03-27T19:06:49 Shift change report given to AD Mandujano. Reviewed chief complaint, assessment findings, allergies, MAR and orders. Plan of care discussed at bedside with patient and both nurses. Patient / family verbalized understanding of POC. 44399-6Rrrwgvwli department TipuQO5540-09-08C22:07:04[facility] NoteTXT1.2.840.660368.1.13.104.2. 7.2.284165|[id number] for patient omon64593-5EccjIH520101090Lyvtaz Jordon [address]TXTX[address] 240OXSYZFQQNFGBXTHCGOUMIW9565-83- 27T19:07:041.2.840.679403.1.72.3. 15|1.2.840.674559.1.13.104.2.7.2. 727879_[id number] Thien Ruvalcaba RN [facility] 2023-03-20 19:00:00 80Gi5uDVKCQS3C2rbk4Q ix55rd2d5Nodt wMhuGspFQnknv4Bxho2YJMdWd6fvv4L82 16-03-279:00:00 Pt returned from radiology. [place] [address]-7Vkruzhvbl department VklxGZ5154-28-70G37:09:59[facility] NoteTXT1.2.840.827602.1.13.104.2. 7.2.764576|[id number] for patient rikg67755-3FfnoXLKRDVCXYC[address]vdGalvestonGalvestonTXTX[address] 672MRVQFZBMRDBGHWNAMYHCLW9465-33- 27T21:09:591.2.840.317486.1.72.3. 15|1.2.840.566233.1.13.104.2.7.2. 727879_[id number] [facility] 2023-03-20 18:05:00 3KAQNjyiUrKK4YC3qZok wnutOsHDmJm f4/wAADJxm98e5H+9XDNSovhJieRKZm36 16-03-278:05:00 Pt calm, quiet, in bed, RR e/u, at side and call light within reach. 95404-8Shvxcyast department LtgtYC0516-92-64D98:13:55[facility] NoteTXT1.2.840.163078.1.13.104.2. 7.2.787605|[id number] for patient rwbv71153-1YvjuLGJBEABWGC[address]vestonTXTX[address] 975RTFQILHNTYBEXFQTKPESYZ0424-40- 27T19:13:551.2.840.049335.1.72.3. 15|1.2.840.612893.1.13.104.2.7.2. 727879_[id number] [facility] 2023-03-20 18:03:43 9wqst5lgs6yZiUCkbfOQ Heyjpdlgjq2Fg sveVorCRq+ijbVRCUPP8drQS9Z8J04o18 16-03-27T18:03:43 Pt transferred via stretcher to [facility] at this time. Report given to AD Cordoba. Pt alert but appears post ictal, slightly anxious VSS. 33648-2Lchhyboqu department BnqxMP4696-95-34N59:04:19[facility] NoteTXT1.2.840.803088.1.13.104.2. 7.2.750460|[id number] for patient tyus49624-4KcjnWN476710617Mhdgik M Davis RN[address] StreetTXTX[address] 242JLONTLONWAFHZWAWZEZTSL8084-01- 27T18:04:191.2.840.615728.1.72.3. 15|1.2.840.366256.1.13.104.2.7.2. 727879_[id number] Lelia Tam RN [facility] 2023-03-20 17:27:33 MA6HGvkeJjIhUvj8oLH8 U+epr7RV4H0FJ AIENGff6AuJl8eWbWWymNy6wh8XfSXp64 16-03-277:27:33 ED MD and RN at bedside attempting U/S guided IV access 10533-6Fopcbzzzd department UjroRP1174-23-62A20:27:51[facility] NoteTXT1.2.840.033862.1.13.104.2. 7.2.356858|[id number] for patient pcbh59604-5HbtlXJQTXBIIWJ[address] DfvwPywmittpcJaexfobaeNSVN9047579 155IRKYOAEIWVJDWMKXHEHTSP3738-55- 27T17:27:511.2.840.956526.1.72.3. 15|1.2.840.608808.1.13.104.2.7.2. 727879_[id number] [facility] 2023-03-20 17:13:11 RLIRZAzZl7lp1O/Ssdlv Co53sRTbmiTfq 1379VAnda8xA648vLrDRyCDFHCgRKeZ97 16-03-27T17:13:11 Mike Francis III is a 48 year old male presents to the ed with cc of seizure like activity. 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 Pt presents to the ed with cc of persistent seizure like activity. Starting today pt has been unable to walk due to generalized tremors. reports confusion and lethargic, falling asleep and going into seizures often. Pt noted to have tremors of upper extremities is drowsy, but maintaining airway and secretions, GCS 14. Hypertensive, all other vss. To room for eval by provider. 19843-9Ljdrgxyhn department Triage uygqUM1494-22-23K99:18:44Emergen y department Triage noteTXT1.2.840.957161.1.13.104.2. 7.2.730596|[id number] for patient jwge35887-7Ivxengloq department ZshuJC328813735Utmdukr Herndon RN[address] BhfiJvbetgiyuTfanvzqlvCLQH5696157 300MAWDUXMOBKLPUJVTHOQAZI3386-83- 27T17:18:441.2.840.288076.1.72.3. 15|1.2.840.219423.1.13.104.2.7.2. 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 Per spouse, patient has had multiple episodes of seizure-like activity over the last week. Spouse reports history of recurrent seizures requiring hospitalization. Patient is on Depakote 2000 twice daily and is compliant with his medication. Patient's last admission to hospital was in January 2023 at [facility]. Spouse does report associated fevers with previous seizure episodes. Spouse reports no other associated symptoms. History provided by: Patient and spousePast Medical History/Immunizations:Past Medical History: Diagnosis Date CAD (coronary artery disease) HLD (hyperlipidemia) HTN (hypertension) Pre-diabetes Tetanus received in last 5 years: Unknown Allergies:Allergies Allergen Reactions Shellfish Derived Anaphylaxis Keppra [Levetiracetam] Hallucinations Onion Other - See comments Causes gas/bloating Past Social History:Tobacco Use Former; Types: Cigarettes Passive Exposure: Never Smokeless Tobacco: Former user of smokeless tobacco. Comments: Vape low dose nicotene Alcohol Use No. Drug Use No. Past Surgical History:Past Surgical History: Procedure Laterality Date CRANIOTOMY BIOPSY BRAIN (SHX) Right 02/12/2022 Surgeon: Adelso Torres MD; Location: [facility] Review of Systems: Review of Systems Constitutional: Positive for fever. Negative for chills. HENT: Negative. Eyes: Negative for visual disturbance. Respiratory: Positive for cough. Negative for shortness of breath. Gastrointestinal: Negative for abdominal pain, diarrhea, nausea and vomiting. Genitourinary: Negative. Musculoskeletal: Negative. Skin: Negative. Neurological: Positive for seizures. Negative for syncope, weakness and numbness. All other systems reviewed and are negative.Physical Exam: ED Triage Vitals [03/20/23 1713] Weight 125.2 kg (276 lb) Actual or estimated Height BP (!) 178/120 Pulse 107 Resp 20 Temp 39.2 ?C (102.5 ?F) Temp src SpO2 95 % Measured on Physical ExamVitals and nursing note reviewed. Constitutional: Appearance: Normal appearance. HENT: Head: Normocephalic and atraumatic. Mouth/Throat: Mouth: Mucous membranes are dry. Eyes: Extraocular Movements: Extraocular movements intact. Conjunctiva/sclera: Conjunctivae normal. Pupils: Pupils are equal, round, and reactive to light. Cardiovascular: Rate and Rhythm: Regular rhythm. Tachycardia present. Pulses: Normal pulses. Heart sounds: Normal heart sounds. Pulmonary: Effort: Pulmonary effort is normal. Breath sounds: Normal breath sounds. Abdominal: General: Abdomen is flat. Palpations: Abdomen is soft. Tenderness: There is no abdominal tenderness. Musculoskeletal: General: Normal range of motion. Cervical back: Normal range of motion and neck supple. Skin: General: Skin is warm and dry. Neurological: General: No focal deficit present. Mental Status: He is alert. Mental status is at baseline. Radiology:No orders to display Lab Results:Lab Results COVID-19 (ID NOW RAPID TESTING) - Abnormal Result Value Ref Range SARS-CoV-2 Rapid ID NOW Positive (*) Not Detected CBC WITH DIFF - Abnormal WBC 5.93 4.20 - 10.70 10*3/?L RBC 4.44 4.26 - 5.52 10*6/?L HGB 12.7 12.2 - 16.4 g/dL HCT 38.7 38.4 - 49.3 % MCV 87.2 81.7 - 95.6 fL MCH 28.6 26.1 - 32.7 pg MCHC 32.8 31.2 - 35.0 g/dL RDW-SD 47.8 38.5 - 51.6 fL RDW-CV 14.9 12.1 - 15.4 % PLT 209 150 - 328 10*3/?L MPV 9.9 9.8 - 13.0 fL NRBC/100 WBC 0.0 0.0 - 10.0 /100 WBCs NRBC x10^3 <0.01 10*3/?L GRAN MAT (NEUT) % 60.8 % IMM GRAN % 0.70 % LYMPH % 18.4 % MONO % 18.7 % EOS % 0.7 % BASO % 0.7 % GRAN MAT x10^3(ANC) 3.61 1.99 - 6.95 10*3/uL IMM GRAN x10^3 0.04 0.00 - 0.06 10*3/uL LYMPH x10^3 1.09 1.09 - 3.23 10*3/uL MONO x10^3 1.11 (*) 0.36 - 1.02 10*3/uL EOS x10^3 0.04 (*) 0.06 - 0.53 10*3/uL BASO x10^3 0.04 0.01 - 0.09 10*3/uL MAGNESIUM - Normal MAGNESIUM 1.8 1.7 - 2.4 mg/dL COMP. METABOLIC PANEL (13647) NA 138 135 - 145 mmol/L K 3.9 3.5 - 5.0 mmol/L CL 100 98 - 108 mmol/L CO2 TOTAL 27 23 - 31 mmol/L AGAP 11 2 - 16 BUN 13 7 - 23 mg/dL GLUCOSE 82 70 - 110 mg/dL CREATININE 0.90 0.60 - 1.25 mg/dL TOTAL BILI 0.5 0.1 - 1.1 mg/dL CALCIUM 8.9 8.6 - 10.6 mg/dL T PROTEIN 6.6 6.3 - 8.2 g/dL ALBUMIN 4.1 3.5 - 5.0 g/dL ALK PHOS 67 34 - 122 U/L ALTv 42 5 - 50 U/L AST(SGOT) 40 13 - 40 U/L eGFR 89.3 mL/min/1.73m2 URINALYSIS VALPROIC ACID, FREE BLOOD CULTURE SCREEN BLOOD CULTURE SCREEN LACTIC ACID WHOLE BLOOD EKG:If EKG completed, see Procedure Note. Orders and Treatments:Orders Placed This Encounter Procedures CT HEAD WO CONTRAST COVID-19 (ID NOW TESTING) URINALYSIS CBC WITH DIFF COMP. METABOLIC PANEL (70926) MAGNESIUM VALPROIC ACID, FREE Blood Culture - Peripheral # 1 Blood Culture - Peripheral # 2 Lactic Acid Whole Blood Lactic Acid Whole Blood LAB ONLY COVID INTERPRETATION CONSULT NEUROLOGY Orders Placed This Encounter Medications NaCl 0.9% (NS) bolus infusion 1,000 mL First Provider Eval:ED Events Date/Time Event User Comments 03/20/231711 Medical Screening Begins MD RAVINDRA TAmandeep AKHTAR -- 03/20/231711 First Provider Evaluation MD WA[facility] T. PRESTON -- No notes of EC Admission Criteria type on file.ED COURSEPatient is a 48-year-old male who presents status post seizure episode. Patient appears nontoxic and clinically stable. Vital signs reveal tachycardia otherwise stable. EKG revealed no acute evidence of ischemia or cardiac arrhythmia. Laboratories revealed no acute abnormalities or electrolyte derangement. COVID-positive. Depakote level pending. CT head without contrast was ordered which is currently pending. Neurology was consulted for evaluation and further recommendations. Patient was signed out to the oncoming physician to follow-up pending laboratories and neurology recommendations and provide appropriate disposition. Patient remained clinically and hemodynamically stable emergency department.Diagnosis/Impression as of 03/20/231902 Seizure disorder Procedures: ProceduresMDM:Medical Decision MakingProblems Addressed:Seizure disorder: acute illness or injury Details: Seizure disorder, recurrent; breakthrough versus subtherapeutic antiepileptics; refer to ED course for further information.Amount and/or Complexity of Data ReviewedLabs: ordered. Decision-making details documented in ED Course. Details: Reviewed; refer to ED course for further information.Radiology: ordered. Details: CT head ordered, currently pending; signed out to the oncoming physician to follow-up results.ECG/medicine tests: ordered. Decision-making details documented in ED Course. Details: Reviewed; refer to ED course for further information.Discussion of management or test interpretation with external provider(s): Neurology was consulted for evaluation and further recommendations.RiskPrescription drug management.Parenteral controlled substances. Flowsheet Documentation: Scoring Tools: No data recorded Disposition/Condition:ED Disposition None Discharge Medications:Patient's Medications START taking these medications No medications on file CONTINUE taking these medications which have NOT CHANGED ACETAMINOPHEN (TYLENOL) 325 MG TABLET Take 2 tablets by mouth as needed (Before infusion). AMLODIPINE 10 MG TABLET Take 1 tablet by mouth in the morning. ATORVASTATIN 20 MG TABLET Take 1 tablet by mouth at bedtime. CARVEDILOL (COREG) 25 MG TABLET Take 1 tablet by mouth in the morning and 1 tablet in the evening. Take with meals. DIPHENHYDRAMINE 25 MG TABLET Take 1 tablet by mouth as needed for Allergies (Before infusion). DIVALPROEX ER 500 MG 24 HR TABLET Take 4 tablets by mouth in the morning and 4 tablets in the evening. FERROUS SULFATE 325 MG (65 MG IRON) TABLET Take 1 tablet by mouth every other day. FLUTICASONE PROPIONATE (FLONASE ALLERGY RELIEF) 50 MCG/ACTUATION NASAL SPRAY Use 1 Somis in each nostril in the morning and 1 Somis in the evening. GABAPENTIN 300 MG CAPSULE Take 1 capsule by mouth in the morning and 1 capsule at noon and 1 capsule in the evening. GLYBURIDE 5 MG TABLET Take 1 tablet by mouth daily with breakfast. HYDRALAZINE 25 MG TABLET Take 1 tablet by mouth every 6 (six) hours. HYDROXYZINE 10 MG TABLET Take 1 tablet by mouth every 6 (six) hours as needed for Itching. LISINOPRIL 40 MG TABLET Take 1 tablet by mouth in the morning. METFORMIN 1,000 MG TABLET Take 1 tablet by mouth in the morning and 1 tablet in the evening. Take with meals. MULTIVITS-MINERALS/FA/LYCOPENE (ONE-A-DAY MEN'S MULTIVITAMIN ORAL) Take by mouth. MHFDM-2L-HAJ-EPA-FISH OIL-D3 (FISH OIL-VIT D3) 360 MG-1,200 MG -1,000 UNIT CAP Take by mouth. PANTOPRAZOLE 40 MG EC TABLET Take 1 tablet by mouth in the morning. POTASSIUM-99 ORAL Take 99 mg by mouth daily. PREDNISONE 5 MG TABLET Take 4 tablets by mouth daily for 7 days, THEN 3.5 tablets daily for 7 days, THEN 3 tablets daily for 7 days, THEN 2 tablets daily for 300 days. RISPERIDONE 1 MG TABLET Take 1 tablet by mouth in the morning and 1 tablet in the evening. START taking Modified Medications as Prescribed No medications on file STOP taking these medications No medications on file Follow-up:Electronically signed by: Joan Waite MD03/20/231906 43712-5Bfmywibfx Emergency department ByftBA1995-08-28K09:07:04Physicia n Emergency department NoteTXT1.2.840.355680.1.13.104.2. 7.2.867853|[id number] for patient ejfx06974-7Flqtgceey department NoteLNUT[address] GpqkEybkpqnbkTytuwcaxhBCNX9835122 941RYGXYMZQKWEZBUPDDWWGRO5327-37- 27T19:07:041.2.840.681573.1.72.3. 15|1.2.840.689234.1.13.104.2.7.2. [id number] [facility] 2023-03-20 16:58:00 ywiVcD2XSL+wAiRJVqiD QTMe0lD74HkhW NX1q6ArcwutUVj+GN8YSowLoWE04ikI45 16-03-27T16:58:00 Medical Decision MakingTook over patient's care after shift change and dispo pending results and evaluation and recommendations by neurology. Labs and imaging reviewed. CBC and CMP unremarkable. Covid positive. CT head unremarkable.EKGNormal sinus rhythmNormal axisRate: 91EKG changed when compared with previous EKGPatient was seen and evaluated by neurology who recommended starting patient on Vimpat and admission to medicine teamAmount and/or Complexity of Data ReviewedExternal Data Reviewed: ECG.Labs: ordered. Decision-making details documented in ED Course.Radiology: ordered. Decision-making details documented in ED Course.ECG/medicine tests: independent interpretation performed. Decision-making details documented in ED Course.Discussion of management or test interpretation with external provider(s): Spoke with neurology who recommended starting patient on Vimpat and admission to medicine RiskPrescription drug management.Parenteral controlled substances. Maury Hutchison MD03/20/232221 53171-4Tizrvdiap Emergency department WskuFU4213-77-67U72:22:18Physicia n Emergency department NoteTXT1.2.840.345409.1.13.104.2. 7.2.190242|[id number] for patient odpl87633-7Jqlrkpcwq department NoteLNEMCARE EMERGENCY PHYSICIAN STAFFEMCARE EMERGENCY PHYSICIAN STAFF[address] JoejPuuzkdtguErubujprrXGAT1261477 163NDKXFVEADPNDRYCSQGPJSY4845-88- 27T22:22:181.2.840.327762.1.72.3. 15|1.2.840.251788.1.13.104.2.7.2. [id number] [facility] 2023-02-18 08:56:10 BUfalgsIZjeJNTAKKKQM v3hndopEX+hcl oaGE2Qr7iLVbbgW7xxhcRvEkkeeLDjB41 14-02-28T08:56:10 New prescription sent for qty 240 tabs with 3 refills to last patient until f/u with Dr Vieyra in May, called pt, left detailed message stating med sent to pharmacy. 31938-4Opydjkika encounter ZubxMS3274-14-13Q08:57:03Telephon e encounter NoteTXT1.2.840.889517.1.13.104.2. 7.2.853233|[id number] for patient care[address]TXTX[address] 688UJIJVXKURGPWMINGSGQTWT7081-45- 28T08:57:031.2.840.989749.1.72.3. 15|1.2.840.970919.1.13.104.2.7.2. [id number] [facility] 2023-02-17 10:51:27 Ls5vFTLmwrL/goTdi/P1 Pa9+68Gk/V/hr Y61TzBXpExZXEvm+eWGJFhk9G2hEAbq91 13-02-27T10:51:27 Patient calling stating that patient was prescribed divalproex ER (DEPAKOTE ER) 2,000 mg Take 2,000 mg by mouth 2 (two) times daily.Qty: 60 tablet, Refills: 0Start date: 02/16/2023 The pharmacy states that the medication only comes with 500mg per pill and patient is having to take 4 pills a day. Patient states they only have a 7 day prescription and would need medication refilled until patient is able to see Dr Vieyra 05/2023. Please contact patient at [phone] (home) 04043-7Pxuylrudw encounter PiphKH4298-75-23Y01:53:45Telephon e encounter NoteTXT1.2.840.017678.1.13.104.2. 7.2.755428|[id number] for patient umff821632282VbrlGadiel Hodges[address]TXTX[address] 222KZDWGNNWHDRLREYRFBDHGY5794-27- 27T10:53:451.2.840.918375.1.72.3. 15|1.2.840.360254.1.13.104.2.7.2. [id number] Gadiel Medrano [facility] 2023-02-17 08:45:32 vfk1nK7/EMzbne88Sqt0 Zx5Wdo88VPc18 Mm33vS4/nclQNuzovInPKDe1w1s8GSM03 13-02-27T08:45:32 TRANSITIONAL CARE MANAGEMENT ASSESSMENT02/17/2023 Mike Francis III207274PMelkailey Francis III is a 47 year old Black or male was admitted on 02/13/23 to [facility]. He was discharged on 02/16/23 with discharge disposition of HR- Routine Discharge.Admitting Physician: Joao Zurita Diagnosis: Altered mental status [R41.82]Pt.'s Verbalized understanding discharge instructions. Linked Episodes Type: Episode: Status: Noted: Resolved: Last update: Updated by: TRANSITION OF CARE tcm Active 02/17/2023 02/17/2023 8:45 AM Leslie Palm LVN Comments: TCM Mgq-prvi-rs-face outreach documentation:Discharge AssessmentChart Assessed: 02/17/23TC Outreach Completed: 02/17/23Do you have a few minutes to speak with me about how you are doing at home?: YesDischarge InstructionsDo you understand your at-home instructions?: YesMedicationsHave you filled your prescriptions and do you have them in your home? : YesDo you know how to take your medications?: YesCan you provide me with the names or descriptions of any jmjz-nue-fjaunfx or supplements you are currently taking?: YesSuppliesDid you receive applicable home medical supplies/equipment?: N/AFollow Up AppointmentHas a follow up appointment been scheduled?: YesDo you have any questions about your follow up appointments?: NoAre you able to get to your appointment? Who will be taking you?: Yes (spouse)Home Health AssistanceHas the home health nurse contacted you since you've been home?: N/ASurvey - RecognitionIs there anything you would like to share about your recent hospitalization, or anyone you would like to recognize?: NoDo you have any suggestions for improvement?: NoDo you have any other questions or concerns at this time?: NoFuture Appointments: Future Appointments Provider Department Dept Phone 05/23/2023 1:30 PM [facility] [place] [phone] 05/27/2023 3:00 PM Elin Vieyra MD [facility] Neurology, PCP [place] [phone] 06/03/2023 8:45 AM 4, Arina- Infusion Chair [facility] [phone] 77560-2Wqlbiyjrp encounter HstkPO4239-89-47C01:46:38Telephon e encounter NoteTXT1.2.840.324209.1.13.104.2. 7.2.501716|[id number] for patient fkyd943795383Lvbbqalcjm Rivas [address] TnqfLebxvwvaeYzgpzqiwrPEZG8022575 912KPANOVJCLMBSIBFRMVHAPD5154-18- 27T08:46:381.2.840.475967.1.72.3. 15|1.2.840.707065.1.13.104.2.7.2. [id number] Leslie Palm LVN [facility] 2023-02-16 11:42:24 6h8Y26A5wxrRxwxolt/h PWUqNWOi1np6Y 7uo3a3pVOFGLsF6G37Qi6UxTXUCAI4A38 13-02-26T11:42:24 Problem: Discharge PlanningGoal: Adequate for discharge02/16/2023 1142 by Ramonita Mondragon RNOutcome: Resolved02/16/2023 1051 by Giancarlo, Ramonita E, RNOutcome: Adequate for discharge Problem: Falls, Risk ofGoal: Absence of falls02/16/2023 1142 by Ramonita Mondragon RNOutcome: Resolved02/16/2023 1051 by Ramonita Mondragon RNOutcome: Adequate for discharge Problem: Mental Status - Impaired, Risk ofGoal: Mental status restored to baseline02/16/2023 1142 by Ramonita Mondragon RNOutcome: Resolved02/16/2023 1051 by Ramonita Mondragon RNOutcome: Adequate for dischargeGoal: Absence of physical injury02/16/2023 1142 by Ramonita Mondragon RNOutcome: Resolved02/16/2023 1051 by Ramonita Mondragon RNOutcome: Adequate for discharge 03631-7Bbgo of care hzteYZ1394-34-95A18:42:28Plan of care noteTXT1.2.840.123891.1.13.104.2. 7.2.425136|[id number] for patient cfgj073052767Pjepx E Roos [address]TXTX[address] 283SYPFLXCLJUPQJCQCBGGRXI7188-86- 26T11:42:281.2.840.939008.1.72.3. 15|1.2.840.532264.1.13.104.2.7.2. [id number] Ramonita Mondragon [facility] 2023-02-16 10:51:56 2+nhBmq4xTeftQtbMWDd c0yMUEAt+AneI 4cT0V+7KuTYYiYIA21+992Xv/xjff7614 13-02-26T10:51:56 Problem: Discharge PlanningGoal: Adequate for dischargeOutcome: Adequate for discharge Problem: Falls, Risk ofGoal: Absence of fallsOutcome: Adequate for discharge Problem: Mental Status - Impaired, Risk ofGoal: Mental status restored to baselineOutcome: Adequate for dischargeGoal: Absence of physical injuryOutcome: Adequate for discharge 87518-5Fdgs of care bmikOT8663-85-35P91:52:00Plan of care noteTXT1.2.840.244486.1.13.104.2. 7.2.335176|[id number] for patient [address]TXTX[address] 889DAWCDXEOCFYQQDEKMOMDQC2561-86- 26T10:52:001.2.840.660678.1.72.3. 15|1.2.840.090487.1.13.104.2.7.2. [id number] [facility] 2023-02-15 23:47:29 feQkP0AND7iT6E2o/xsd WlK9lXwaSCo2e 6ht6rvGKmBcys6Dl5YGIHNeWyL9w7iu89 13-02-25T23:47:29 Problem: Discharge PlanningGoal: Adequate for dischargeOutcome: Progressing as expected Problem: Falls, Risk ofGoal: Absence of fallsOutcome: Progressing as expected Problem: Mental Status - Impaired, Risk ofGoal: Mental status restored to baselineOutcome: Progressing as expectedGoal: Absence of physical injuryOutcome: Progressing as expected 77674-5Fpcv of care wiyeAO4463-27-28U89:47:35Plan of care noteTXT1.2.840.666046.1.13.104.2. 7.2.828990|[id number] for patient jzbq793102527Qhaxgqbvn Jose [address]TXTX[address] 867FEDTNHZPXIAXFKQSCSMZYF7481-43- 25T23:47:351.2.840.697840.1.72.3. 15|1.2.840.365847.1.13.104.2.7.2. [id number] Allyndaphne Saucedo RN [facility] 2023-02-15 12:33:10 85g0QtBqNUbcGhdDD8sz sdo45MjJjsbFX eN3eGlHX5J/qdhC4dKPk4tbSIFSApyW29 13-02-25T12:33:10 Problem: Discharge PlanningGoal: Adequate for dischargeOutcome: Progressing as expected Problem: Falls, Risk ofGoal: Absence of fallsOutcome: Progressing as expected Problem: Mental Status - Impaired, Risk ofGoal: Mental status restored to baselineOutcome: Progressing as expectedGoal: Absence of physical injuryOutcome: Progressing as expected 23215-7Qipa of care vwqsGJ1444-96-63B01:33:15Plan of care noteTXT1.2.840.623320.1.13.104.2. 7.2.788808|[id number] for patient [address] EuutFqjvqlhhuSxuwxzawiDNUF6155219 118YUWWGEMXQQTPNIQXQWCGYV8055-41- 25T12:33:151.2.840.060148.1.72.3. 15|1.2.840.388879.1.13.104.2.7.2. [id number] [facility] 2023-02-14 05:48:59 sNNUwrhzYzay8cRZpxrS 5Desr8LANLM0H /W4Vp0YqVn/j29QZ+fvLnYSpKwvFO+L20 14-02-24T05:48:59 Problem: Discharge PlanningGoal: Adequate for dischargeOutcome: Progressing as expected Problem: Falls, Risk ofGoal: Absence of fallsOutcome: Progressing as expected Problem: Mental Status - Impaired, Risk ofGoal: Mental status restored to baselineOutcome: Progressing as expectedGoal: Absence of physical injuryOutcome: Progressing as expected 78705-4Ikjx of care qrkdFU6127-23-67C45:49:02Plan of care noteTXT1.2.840.052006.1.13.104.2. 7.2.830245|[id number] for patient [address] RcdfTsppxlpscOhvwtxejlPXSP8430909 477FZIXITPNVPCYLSBIPNHAOU3823-51- 24T05:49:021.2.840.138061.1.72.3. 15|1.2.840.693154.1.13.104.2.7.2. [id number] [facility]
--- NOTE | 2023-08-22 18:03 | RAD REPORT ---
EXAM DESCRIPTION: RADChest Single View08/22/2023 5:55 pm CLINICAL HISTORY: weakness COMPARISON: Chest Single View dated 02/13/2023; Chest Single View dated 10/25/2022; Chest Single View d ated 11/12/2020; Chest Single View dated 09/23/2020 TECHNIQUE: Portable AP view of the chest. FINDINGS: The lungs are clear. No pneumothorax or effusion. The cardiomediastinal contours are unrem arkable. IMPRESSION: No acute cardiopulmonary process.
[2023-08-22 19:07] LABS: Protime INR 1.07
[2023-08-22 19:12] LABS: Absolute Lymphocytes (CBC) 1.4 K/uL (0.7-4.9); Hematocrit 37.3 % (39.6-49.0); Lymphocytes % 26.3 % (15.3-44.8); MCV 86.3 fL (80-100); MPV 7.8 fL (7.6-11.3); Platelets 294 thou/uL (152-406); RBC Red Blood Cell Count 4.32 M/uL (4.33-5.43)
[2023-08-22 19:50] LABS: Albumin 3.2 g/dL (3.4-5.0); Bilirubin Direct 0.1 mg/dL (0-0.2); Bilirubin Indirect, Calculated 0.2 mg/dL (0.2-0.8); Bilirubin Total 0.3 mg/dL (0.2-1.0); Potassium 3.2 mEq/L (3.5-5.1); Protein, Total 6.9 g/dL (6.4-8.2); Troponin High Sensitivity 5.7 pg/mL (<58.9)
--- NOTE | 2023-08-22 21:16 | RAD REPORT ---
EXAM DESCRIPTION: CT - CTHCSPWOC - 08/22/2023 8:29 pm CLINICAL HISTORY: neck pain;Visual disturbances;Headache COMPARISON: Neck Angio dated 08/22/2023 TECHNIQUE: Axial thin cut noncontrast CT images of the head were obtained. Axial thin cut noncontrast CT images of the cervical spine were obtained. Multiplanar reformatted images were generated and reviewed. All CT scans are performed using dose optimization technique as appropriate and may include automated exposure control or mA/KV adjustment according to patient size. FINDINGS: CT HEAD WITHOUT CONTRAST: No acute hemorrhage, hydrocephalus or extra-axial collection is identified.No areas of brain edema or midline shift. The paranasal sinuses and mastoids are clear.The calvarium is intact. CT CERVICAL SPINE WITHOUT CONTRAST: No fracture or subluxation.No prevertebral soft tissues swelling is identified. IMPRESSION: No acute traumatic intracranial or cervical spine findings.
--- NOTE | 2023-08-22 21:29 | RAD REPORT ---
EXAM DESCRIPTION: CT - Head angio - 08/22/2023 8:32 pm CLINICAL HISTORY: Dizziness;Headache COMPARISON: Ct Stroke Brain Wo Cont dated 02/13/2023; Head Brain Wo Cont dated 10/25/2022; Neck Angio d ated 08/22/2023; Head C Spine Mpr Wo Con dated 08/22/2023 TECHNIQUE: Axial CT angiography images of the head was performed with multiplanar and maximum intens ity projection reconstructions. Images performed following intravenous administration of 100mL Isovue 370. All CT scans are performed using dose optimization technique as appropriate and may include automated exposure control or mA/KV adjustment according to patient size. FINDINGS: No evidence of large vessel occlusion. No evidence of aneurysm or dissection flap is detec shannan. No flow-limiting stenosis or vascular malformation identified. Antegrade flow is seen in the vertebral arteries. The vertebral arteries are codominant. The visualized dural venous sinuses are grossly patent. IMPRESSION: No evidence of large vessel occlusion or flow-limiting stenosis.
--- NOTE | 2023-08-22 21:31 | RAD REPORT ---
EXAM DESCRIPTION: CT - Neck Angio - 08/22/2023 8:30 pm CLINICAL HISTORY: HEADACHE COMPARISON: No comparisons TECHNIQUE: Axial CT angiography images of the head was performed with multiplanar and maximum intens ity projection reconstructions. Images performed following intravenous administration of 100mL Isovue 370. All CT scans are performed using dose optimization technique as appropriate and may include automated exposure control or mA/KV adjustment according to patient size. Quantification of carotid stenosis, if any, is performed according to NASCET criteria. FINDINGS: A left aortic arch is identified with normal three vessel configuration of the great vesse ls. No significant flow abnormality is seen of the common carotid bilaterally. No significant stenosis is identified involving the cervical segments of both internal carotid arteri es. Normal flow is seen within both vertebral arteries. IMPRESSION: No significant flow abnormality of the neck vessels is identified. CAROTID STENOSIS REFERENCE USING NASCET CRITERIA: % ICA stenosis = (1 - narrowest ICA diameter/diameter of distal cervical ICA) x 100. Mild - <50% stenosis. Moderate - 50-69% stenosis. Severe - 70-94% stenosis. Near occlusion - 95-99% stenosis. Occluded - 100% stenosis.
--- NOTE | 2023-08-22 22:20 | EDPHYS ---
Physician Documentation [facility] Name: Mike Francis III Age: 48 yrs Sex: Male : 1975 Arrival Date: 08/22/2023 Time: 17:11 Bed 15 Private MD: ED Physician Layton Cotton HPI: 08/22 17:33 This 48 yrs old Black Male presents to ER via Ambulatory with complaints of Double cp vision, Neck Pain, <24hrs Old. 17:33 The patient's problem is reported as visual difficulty, blurred vision, weakness, that cp is generalized. Onset: The symptoms/episode began/occurred yesterday. 17:33 Duration: The episode is continuous. cp 17:33 Associated signs and symptoms: Pertinent positives: blurred vision, headache, weakness, cp neck pain, Pertinent negatives: abdominal pain, ataxia, chest pain, combativeness, fever. 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 Historical: - Allergies: 17:24 Keppra; tl4 17:24 SHELLFISH; tl4 - PMHx: 17:24 Mild Heart Attack x 2; brain lesions/swelling of the brain; Diabetes - NIDDM; High tl4 Cholesterol; Hypertension; - PSHx: 17:24 brain surgery (January 2022); Appendectomy; tl4 - Immunization history:: Adult Immunizations unknown. - Social history:: Smoking status: Patient/guardian denies using tobacco, the patient reports quitting approximately 2 years ago. ROS: 17:40 Constitutional: Negative for body aches, chills, fever, poor PO intake, cp 17:40 Eyes: Positive for blurry vision, Negative for pain, vision loss, cp 17:40 ENT: Negative for drainage from ear(s), ear pain, sore throat, difficulty swallowing, difficulty handling secretions, 17:40 Neck: Positive for pain with movement, pain at rest, 17:40 Cardiovascular: Negative for chest pain, palpitations, 17:40 Respiratory: Negative for cough, shortness of breath, wheezing, 17:40 Abdomen/GI: Negative for abdominal pain, vomiting, diarrhea, constipation, 17:40 Neuro: Positive for headache, general weakness, Negative for altered mental status, syncope, 17:40 All other systems are negative, Exam: 17:45 Constitutional: The patient appears in no acute distress, alert, awake, cp non-diaphoretic, non-toxic, well developed, well nourished, obese, 17:45 Head/Face: Normocephalic, atraumatic. cp 17:45 Eyes: Periorbital structures: appear normal, Pupils: equal, round, and reactive to light and accomodation, Extraocular movements: intact throughout, Conjunctiva: normal, no exudate, no injection, Sclera: no appreciated abnormality, Lids and lashes: appear normal, bilaterally, 17:45 ENT: External ear(s): are unremarkable, Ear canal(s): are normal, clear, TM's: dullness, bilaterally, Nose: is normal, Mouth: Lips: moist, Oral mucosa: pink and intact, moist, Posterior pharynx: Airway: no evidence of obstruction, patent, 17:45 Neck: ROM/movement: pain, that is mild, with any movement, limited range of motion, is not appreciated, Meningeal signs: are not present, nuchal rigidity, is not appreciated, 17:45 Chest/axilla: Inspection: normal, 17:45 Cardiovascular: Rate: normal, Rhythm: regular, Edema: is not appreciated, JVD: is not appreciated, 17:45 Respiratory: the patient does not display signs of respiratory distress, Respirations: normal, no use of accessory muscles, no retractions, labored breathing, is not present, Breath sounds: are clear throughout, no decreased breath sounds, no stridor, no wheezing, 17:45 Abdomen/GI: Inspection: obese Palpation: abdomen is soft and non-tender, in all quadrants, 17:45 Back: pain, is absent, ROM is normal, 17:45 Skin: no rash present. 17:45 Neuro: Orientation: to person, place \T\ time. Mentation: able to follow commands, Motor: moves all fours, no focal deficits, Sensation: is normal, Gait: is steady, Abnormal movements: resting tremor, is located in the right hand, 19:08 ECG was reviewed by the Attending Physician. cp 21:35 Radiologist reports: no acute findings cp Vital Signs: 17:21 BP 168 / 98; Pulse 79; Resp 18; Temp 99(O); Pulse Ox 97% on R/A; Weight 135.17 kg; tl4 Height 6 ft. 4 in. ; Pain 10/10; 19:06 BP 177 / 101; Pulse 72; Resp 16; Pulse Ox 99% ; bp 20:20 BP 152 / 93; Pulse 71; Resp 17 S; Pulse Ox 100% on R/A; ha1 21:00 BP 153 / 90; Pulse 72; Resp 17 S; Pulse Ox 98% on R/A; ha1 22:00 BP 153 / 100; Pulse 63; Resp 17 S; Pulse Ox 100% on R/A; ha1 17:21 Body Mass Index 36.27 (135.17 kg, 193.04 cm) tl4 17:21 Pain Scale: Adult tl4 MDM: 17:29 Patient medically screened. cp 21:49 Data reviewed: vital signs, nurses notes, lab test result(s), EKG, radiologic studies, cp CT scan, plain films. Management of patient was discussed with the following: Road Tester: DR Soria \[id number] regarding results of today's testing, patient's diagnosis of Autoimmune Encephalitis and patient's symptoms. DR Soria's recommendation is outpatient f/u with patient's primary neurologist. Symptoms are exacerbation of medical condition. 08/22 17:30 Order name: Basic Metabolic Panel; Complete Time: 21:00 cp 08/22 21:00 Interpretation: Normal except: K 3.2; GLUC 168; GFR 83. cp 08/22 17:30 Order name: CBC with Diff cp 08/22 19:49 Interpretation: Normal except: RBC 4.32; HGB 12.4; HCT 37.3; MN% 14.9; BASO% 2.8. cp 08/22 17:30 Order name: LFT's; Complete Time: 21:00 cp 08/22 21:36 Interpretation: Normal except: ALB 3.2; GLOB 3.7; A/G 0.9. cp 08/22 17:30 Order name: Magnesium; Complete Time: 21:00 cp 08/22 17:30 Order name: NT PRO-BNP; Complete Time: 21:00 cp 08/22 17:30 Order name: PT-INR; Complete Time: 19:49 cp 08/22 17:30 Order name: Troponin HS; Complete Time: 21:00 cp 08/22 22:33 Order name: CBC Smear Scan EDMS 08/22 17:30 Order name: XRAY Chest (1 view); Complete Time: 18:39 08/22 18:39 Interpretation: Report review. 08/22 17:31 Order name: CT Head C Spine; Complete Time: 21:34 cp 08/22 21:35 Interpretation: Reviewed report. 08/22 17:32 Order name: CT Head Angio; Complete Time: 21:34 cp 08/22 21:35 Interpretation: Report reviewed. 08/22 17:32 Order name: CT Neck Angio; Complete Time: 21:34 08/22 17:30 Order name: EKG; Complete Time: 17:31 cp 08/22 17:30 Order name: Cardiac monitoring; Complete Time: 18:08 08/22 17:30 Order name: EKG - Nurse/Tech; Complete Time: 19:06 08/22 17:30 Order name: IV Saline Lock; Complete Time: 19:06 cp 08/22 17:30 Order name: Labs collected and sent; Complete Time: 19:06 08/22 17:30 Order name: O2 Per Protocol; Complete Time: 18:08 08/22 17:30 Order name: O2 Sat Monitoring; Complete Time: 18:08 cp EC:08 Rate is 75 beats/min. Rhythm is regular. WI interval is normal. QRS interval is normal. cp QT interval is normal. T waves are Inverted in leads aVR, V5, V6. Interpreted by me. Reviewed by me. Administered Medications: 22:30 Drug: Potassium PO Effervescent Tablet 50 mEq PO once; dissolve in 4 ounces of water or ha1 juice Route: PO; 23:00 Follow up: Response: No adverse reaction ha1 22:35 Drug: Dexamethasone IVP 10 mg IVP once; (not to exceed 40 mg) Route: IVP; Site: right ha1 antecubital; 23:00 Follow up: Response: No adverse reaction ha1 22:37 Drug: Ketorolac IVP 15 mg IVP once Route: IVP; Site: right antecubital; [facility] 23:00 Follow up: Response: No adverse reaction; Marked relief of symptoms ha1 Disposition: 19:08 I was immediately available on-site in the Emergency Department for consultation in the ks3 care of the patient. Disposition Summary: 08/22/23 22:19 Discharge Ordered Notes: Location: Home cp Problem: new cp Symptoms: have improved cp Condition: Stable cp Diagnosis - Headache cp - Cervicalgia cp - Diplopia cp - Muscle weakness (generalized) cp Followup: cp - With: Private Physician - When: 1 - 2 days - Reason: Recheck today's complaints Discharge Instructions: - Discharge Summary Sheet cp - Diplopia cp - General Headache Without Cause cp - Weakness cp - Neck Exercises cp Forms: - Medication Reconciliation Form cp - Thank You Letter cp - Antibiotic Education cp - Prescription Opioid Use cp - Patient Portal Instructions cp - Leadership Thank You Letter cp Signatures: Dispatcher [employer] EDMS Domenic Rosa PA PA Layton Naav DO DO ms3 Sarita Francis RN RN ha1 Keon Walton tl4 Corrections: (The following items were deleted from the chart) 17:38 17:31 Head Brain Wo Cont+CT.RAD.BRZ ordered. EDWY EDMS 08/23 20:19 08/22 21:49 Management of patient was discussed with the following: Road Tester: DR jose Soria \T\[id number]. cp
--- NOTE | 2023-08-22 22:20 | ER ---
Nurse's Notes [facility] Name: Mike Francis III Age: 48 yrs Sex: Male : 1975 Arrival Date: 08/22/2023 Time: 17:11 Bed 15 Private MD: Diagnosis: Headache;Cervicalgia;Diplopia;Muscle weakness (generalized) Presentation: 08/22 17:21 Chief complaint: Patient states: Pt c/o diplopia, neck/shoulder pain, headache, and tl4 generalized weakness since yesterday morning upon waking. Pt denies any history of the same. Coronavirus screen: Vaccine status: Patient reports being unvaccinated. Ebola Screen: Patient negative for fever greater than or equal to 101.5 degrees Fahrenheit, and additional compatible Ebola Virus Disease symptoms Patient denies exposure to infectious person. Patient denies travel to an Ebola-affected area in the 21 days before illness onset. No symptoms or risks identified at this time. Initial Sepsis Screen: Does the patient meet any 2 criteria? No. Patient's initial sepsis screen is negative. Does the patient have a suspected source of infection? No. Patient's initial sepsis screen is negative. Risk Assessment: Do you want to hurt yourself or someone else? Patient reports no desire to harm self or others. Onset of symptoms was August 21, 2023 at 05:30. 17:21 Method Of Arrival: Ambulatory tl4 17:21 Acuity: IFEANYI 2 tl4 Triage Assessment: 17:25 General: Appears distressed, Behavior is calm, cooperative. Pain: Complains of pain in tl4 back of head, back of neck. EENT: No deficits noted. No signs and/or symptoms were reported regarding the EENT system. Neuro: Reports diplopia, weakness. Cardiovascular: No deficits noted. Denies chest pain, diaphoresis, lightheadedness, palpitations. Respiratory: No deficits noted. Denies cough, shortness of breath. GI: No deficits noted. No signs and/or symptoms were reported involving the gastrointestinal system. : No deficits noted. No signs and/or symptoms were reported regarding the genitourinary system. Historical: - Allergies: 17:24 Keppra; tl4 17:24 SHELLFISH; tl4 - PMHx: 17:24 Mild Heart Attack x 2; brain lesions/swelling of the brain; Diabetes - NIDDM; High tl4 Cholesterol; Hypertension; - PSHx: 17:24 brain surgery (January 2022); Appendectomy; tl4 - Immunization history:: Adult Immunizations unknown. - Social history:: Smoking status: Patient/guardian denies using tobacco, the patient reports quitting approximately 2 years ago. Screenin:00 [facility] ED Fall Risk Assessment (Adult) History of falling in the last 3 months, bp including since admission No falls in past 3 months (0 pts). Abuse screen: Denies threats or abuse. Denies injuries from another. Nutritional screening: No deficits noted. Tuberculosis screening: No symptoms or risk factors identified. Assessment: 17:30 General: SEE TRIAGE NOTE. bp 19:00 Reassessment: Patient appears in no apparent distress at this time. Patient is alert, bp oriented x 3, equal unlabored respirations, skin warm/dry/pink. 20:00 General: Appears comfortable, Behavior is calm, cooperative. Pain: Denies pain. Neuro: ha1 Level of Consciousness is awake, alert, obeys commands, Oriented to person, place, time, situation, Reports double vision . Cardiovascular: Patient's skin is warm and dry. Respiratory: Airway is patent Respiratory effort is even, unlabored, Respiratory pattern is regular, symmetrical. Derm: Skin is pink, warm \T\ dry. 21:00 Reassessment: Patient and/or family updated on plan of care and expected duration. Pain ha1 level reassessed. Patient is alert, oriented x 3, equal unlabored respirations, skin warm/dry/pink. 22:00 Reassessment: Patient and/or family updated on plan of care and expected duration. Pain ha1 level reassessed. Patient is alert, oriented x 3, equal unlabored respirations, skin warm/dry/pink. 22:55 Reassessment: Patient and/or family updated on plan of care and expected duration. Pain ha1 level reassessed. Patient is alert, oriented x 3, equal unlabored respirations, skin warm/dry/pink. Vital Signs: 17:21 BP 168 / 98; Pulse 79; Resp 18; Temp 99(O); Pulse Ox 97% on R/A; Weight 135.17 kg; tl4 Height 6 ft. 4 in. ; Pain 10/10; 19:06 BP 177 / 101; Pulse 72; Resp 16; Pulse Ox 99% ; bp 20:20 BP 152 / 93; Pulse 71; Resp 17 S; Pulse Ox 100% on R/A; ha1 21:00 BP 153 / 90; Pulse 72; Resp 17 S; Pulse Ox 98% on R/A; ha1 22:00 BP 153 / 100; Pulse 63; Resp 17 S; Pulse Ox 100% on R/A; ha1 17:21 Body Mass Index 36.27 (135.17 kg, 193.04 cm) tl4 17:21 Pain Scale: Adult tl4 ED Course: 17:13 Patient arrived in ED. im 17:14 Domenic Rosa PA is PHCP. cp 17:15 Layton Cotton DO is Attending Physician. cp 17:24 Triage completed. tl4 17:26 Domenic Rosa PA is PHCP. cp 17:26 Layton Cotton DO is Attending Physician. cp 17:27 Arm band placed on right wrist. tl4 17:48 Marlon Gill, RN is Primary Nurse. bp 17:57 XRAY Chest (1 view) In Process Unspecified. EDMS 18:51 Inserted saline lock: 20 gauge in right antecubital area, using aseptic technique. nj1 ,using aseptic technique. Ultrasound guided. Catheter tip well visualized within vasculature during placement. Blood collected. 19:00 Patient has correct armband on for positive identification. bp 20:31 CT Head C Spine In Process Unspecified. EDMS 20:31 CT Head Angio In Process Unspecified. EDMS 20:31 CT Neck Angio In Process Unspecified. EDMS 22:58 No provider procedures requiring assistance completed. IV discontinued, intact, ha1 bleeding controlled, No redness/swelling at site. Pressure dressing applied. 22:59 Provided Education on: NEED TO FOLLOW UP WITH NEUROLOGY. ha1 Administered Medications: 22:30 Drug: Potassium PO Effervescent Tablet 50 mEq PO once; dissolve in 4 ounces of water or ha1 juice Route: PO; 23:00 Follow up: Response: No adverse reaction ha1 22:35 Drug: Dexamethasone IVP 10 mg IVP once; (not to exceed 40 mg) Route: IVP; Site: right ha1 antecubital; 23:00 Follow up: Response: No adverse reaction ha1 22:37 Drug: Ketorolac IVP 15 mg IVP once Route: IVP; Site: right antecubital; ha1 23:00 Follow up: Response: No adverse reaction; Marked relief of symptoms ha1 Medication: 22:59 VIS not applicable for this client. ha1 Outcome: 22:19 Discharge ordered by . cp 22:58 Discharged to home via wheelchair, with family, ha1 22:58 Condition: stable 22:58 Discharge instructions given to patient, family, Instructed on discharge instructions, follow up and referral plans. Demonstrated understanding of instructions, follow-up care, 23:00 Patient left the ED. ha1 Signatures: Dispatcher [employer] EDMS Domenic Rosa PA PA cp Peltier, Brian, RN RN bp Sarita Francis RN RN ha1 Swati Rogers RN RN nj1 Itzel Cardoza Toni tl4 Corrections: (The following items were deleted from the chart) 19:07 18:51 Inserted saline lock: 20 gauge in right antecubital area, using aseptic nj1 technique. ,using aseptic technique. Ultrasound guided. Catheter tip well visualized within vasculature during placement. nj1
[2023-08-22 22:33] LABS: Blood Morphology Comment NOT SEEN (NOT SEEN); Platelet Estimate ADEQ; White Blood Cell Scan OK (OK)
[2023-08-23 03:16] VITALS: BP 153/100; TEMP 99; O2SAT 100
== END ==
LOC: ER 17:11
DX: R51.9 Headache, unspecified (principal); M54.2 Cervicalgia; H53.2 Diplopia; M62.81 Muscle weakness (generalized); I10 Essential (primary) hypertension; E11.9 Type 2 diabetes mellitus without complications; I25.2 Old myocardial infarction; Z88.8 Allergy status to other drugs, medicaments and biological substances; Z91.013 Allergy to seafood
CPT/HCPCS: 93005; 85025; 80048; 36415; 83735; 85610; 80076; 84484; 83880; 70450; 72125; 70496; 70498; 71045; Q9967; J1100

== ENCOUNTER → 2023-09-06 | Emergency (ER) | payer OTHER ==
[~2023-09-06] MED LIST changes: +AZITHROMYCIN 500 MG INJ IVPB ONE; +CEFTRIAXONE 1000 MG/VIAL ONE; -KETOROLAC 30 MG/ML INJ ONE; +NA CHLORIDE 0.9% 1,000 ML ONE; +NA CHLORIDE 0.9% 250 ML ONE; +NA CHLORIDE 0.9% 50 ML ONE; -POTASSIUM 25 MEQ EFFERV TAB ONE; -dexAMETHasone 10 MG/ML VIAL ONE
--- OUTSIDE RECORDS SUMMARY | 2023-09-06 21:39 | XMS REPORT | Continuity of Care Document ---
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 [facility] atorvastati n 20 mg tablet 2022-07 0 00:00: 00 Yes [id number] 20mg Take 1 tablet by mouth at bedtime. [facility] atorvastati n 20 mg tablet 2022-07 0 00:00: 00 Yes [id number] 20mg Take 1 tablet by mouth at bedtime. [facility] atorvastati n 20 mg tablet 2022-07 0 00:00: 00 Yes [id number] 20mg Take 1 tablet by mouth at bedtime. [facility] atorvastati n 20 mg tablet 2022-07 0 00:00: 00 Yes [id number] 20mg Take 1 tablet by mouth at bedtime. [facility] atorvastati n 20 mg tablet 2022-07 0 00:00: 00 Yes [id number] 20mg Take 1 tablet by mouth at bedtime. [facility] atorvastati n 20 mg tablet 2022-07 0 00:00: 00 Yes [id number] 20mg Take 1 tablet by mouth at bedtime. [facility] atorvastati n 20 mg tablet 2022-07 0 00:00: 00 Yes [id number] 20mg Take 1 tablet by mouth at bedtime. [facility] atorvastati n 20 mg tablet 2022-07 0 00:00: 00 Yes [id number] 20mg Take 1 tablet by mouth at bedtime. [facility] atorvastati n 20 mg tablet 2022-07 0 00:00: 00 Yes [id number] 20mg Take 1 tablet by mouth at bedtime. [facility] hydrALAZINE 25 mg tablet 04-19 00:00: 00 Yes [id number] 25mg Take 1 tablet by mouth every 6 (six) hours. [facility] hydrALAZINE 25 mg tablet 2022-0 04-19 00:00: 00 Yes [id number] 25mg Take 1 tablet by mouth every 6 (six) hours. [facility] hydrALAZINE 25 mg tablet 0 04-19 00:00: 00 Yes [id number] 25mg Take 1 tablet by mouth every 6 (six) hours. [facility] hydrALAZINE 25 mg tablet 2022-0 04-19 00:00: 00 Yes [id number] 25mg Take 1 tablet by mouth every 6 (six) hours. [facility] hydrALAZINE 25 mg tablet 2022-0 04-19 00:00: 00 Yes [id number] 25mg Take 1 tablet by mouth every 6 (six) hours. [facility] hydrALAZINE 25 mg tablet 2022-0 04-19 00:00: 00 Yes [id number] 25mg Take 1 tablet by mouth every 6 (six) hours. [facility] hydrALAZINE 25 mg tablet 2022-0 04-19 00:00: 00 Yes [id number] 25mg Take 1 tablet by mouth every 6 (six) hours. [facility] hydrALAZINE 25 mg tablet 2022-0 04-19 00:00: 00 Yes [id number] 25mg Take 1 tablet by mouth every 6 (six) hours. [facility] hydrALAZINE 25 mg tablet 0 04-19 00:00: 00 Yes [id number] 25mg Take 1 tablet by mouth every 6 (six) hours. [facility] hydrALAZINE 25 mg tablet 0 04-19 00:00: 00 Yes [id number] 25mg Take 1 tablet by mouth every 6 (six) hours. [facility] hydrALAZINE 25 mg tablet 0 04-19 00:00: 00 Yes [id number] 25mg Take 1 tablet by mouth every 6 (six) hours. [facility] hydrALAZINE 25 mg tablet 0 04-19 00:00: 00 Yes [id number] 25mg Take 1 tablet by mouth every 6 (six) hours. [facility] hydrALAZINE 25 mg tablet 2022-0 04-19 00:00: 00 Yes [id number] 25mg Take 1 tablet by mouth every 6 (six) hours. [facility] atorvastati n (LIPITOR) tablet 20 mg 03-22 02:00: 00 Yes 20mg 20 mg, Oral, QHS, First dose on Tue03/21/23 at 2100, Until Discontinu ed, Routine [facility] enoxaparin (LOVENOX) injection 40 mg 03-21 22:00: 00 Yes 40mg 40 mg, Subcutaneo us, DAILY, First dose on Tue03/21/23 at 1700, Until Discontinu ed, Routine [facility] omega-3s-dh a-epa-fish oil-D3 (FISH OIL-VIT D3) 360 mg-1,200 mg -1,000 unit Cap 03-21 17:40: 37 Yes Take by mouth. [facility] MULTIVITS-M INERALS/FA/ LYCOPENE (ONE-A-DAY MEN'S MULTIVITAMI N ORAL) 03-21 17:40: 37 Yes Take by mouth. [facility] POTASSIUM-9 9 ORAL 03-21 17:40: 37 Yes 99mg Take 99 mg by mouth daily. [facility] omega-3s-dh a-epa-fish oil-D3 (FISH OIL-VIT D3) 360 mg-1,200 mg -1,000 unit Cap 03-21 17:40: 37 Yes Take by mouth. [facility] MULTIVITS-M INERALS/FA/ LYCOPENE (ONE-A-DAY MEN'S MULTIVITAMI N ORAL) 03-21 17:40: 37 Yes Take by mouth. [facility] POTASSIUM-9 9 ORAL 03-21 17:40: 37 Yes 99mg Take 99 mg by mouth daily. [facility] omega-3s-dh a-epa-fish oil-D3 (FISH OIL-VIT D3) 360 mg-1,200 mg -1,000 unit Cap 03-21 17:40: 37 Yes Take by mouth. [facility] MULTIVITS-M INERALS/FA/ LYCOPENE (ONE-A-DAY MEN'S MULTIVITAMI N ORAL) 03-21 17:40: 37 Yes Take by mouth. [facility] POTASSIUM-9 9 ORAL 03-21 17:40: 37 Yes 99mg Take 99 mg by mouth daily. [facility] omega-3s-dh a-epa-fish oil-D3 (FISH OIL-VIT D3) 360 mg-1,200 mg -1,000 unit Cap 03-21 17:40: 37 Yes Take by mouth. [facility] MULTIVITS-M INERALS/FA/ LYCOPENE (ONE-A-DAY MEN'S MULTIVITAMI N ORAL) 03-21 17:40: 37 Yes Take by mouth. [facility] POTASSIUM-9 9 ORAL 03-21 17:40: 37 Yes 99mg Take 99 mg by mouth daily. [facility] omega-3s-dh a-epa-fish oil-D3 (FISH OIL-VIT D3) 360 mg-1,200 mg -1,000 unit Cap 03-21 17:40: 37 Yes Take by mouth. [facility] MULTIVITS-M INERALS/FA/ LYCOPENE (ONE-A-DAY MEN'S MULTIVITAMI N ORAL) 03-21 17:40: 37 Yes Take by mouth. [facility] POTASSIUM-9 9 ORAL 03-21 17:40: 37 Yes 99mg Take 99 mg by mouth daily. [facility] predniSONE (DELTASONE) tablet 10 mg 03-21 14:00: 00 Yes 10mg 10 mg, Oral, DAILY, First dose on Tue03/21/23 at 0900, Until Discontinu ed, Routine [facility] pantoprazol e (PROTONIX) EC tablet 40 mg 03-21 14:00: 00 Yes 40mg 40 mg, Oral, DAILY, First dose on Tue03/21/23 at 0900, Until Discontinu ed, Routine [facility] lisinopriL (PRINIVIL,Z ESTRIL) tablet 40 mg 03-21 14:00: 00 Yes 40mg 40 mg, Oral, DAILY, First dose on Tue03/21/23 at 0900, Until Discontinu ed, Routine [facility] amLODIPine (NORVASC) tablet 10 mg 03-21 14:00: 00 Yes 10mg 10 mg, Oral, DAILY, First dose on Tue03/21/23 at 0900, Until Discontinu ed, Routine [facility] risperiDONE (RISPERDAL) tablet 1 mg 03-21 13:00: 00 Yes 1mg 1 mg, Oral, BID, First dose on Tue03/21/23 at 0800, Until Discontinu ed, Routine [facility] gabapentin (NEURONTIN) capsule 300 mg 03-21 13:00: 00 Yes 300mg 300 mg, Oral, TID, First dose on Tue03/21/23 at 0800, Until Discontinu ed, Routine [facility] divalproex ER (DEPAKOTE ER) 24 hr tablet 2,000 mg 03-21 13:00: 00 Yes 2000mg 2,000 mg, Oral, BID, First dose on Tue03/21/23 at 0800, Until Discontinu ed, Routine [facility] carvediloL (COREG) tablet 25 mg 03-21 13:00: 00 Yes 25mg 25 mg, Oral, BID MEALS, First dose on Tue03/21/23 at 0800, Until Discontinu ed, Routine [facility] lacosamide (VIMPAT) tablet 50 mg 03-21 13:00: 00 Yes 50mg 50 mg, Oral, BID, First dose on Tue03/21/23 at 0800, Until Discontinu ed, Routine
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 : DAVID TAVERA [facility] hydrALAZINE (APRESOLINE ) tablet 25 mg 03-21 11:00: 00 Yes 25mg 25 mg, Oral, Q6H, First dose on Tue03/21/23 at 0600, Until Discontinu ed, Routine [facility] albuterol (VENTOLIN) inhaler 2 Puff 03-21 05:47: 08 Yes 2{puff} 2 Puff, Inhalation , Q6HPRN, Starting on Tue03/21/23 at 0047, Until Discontinu ed, Routine, Wheezing, Shortness of Breath, Bronchospa sm, Chest tightness [facility] acetaminoph en (TYLENOL) tablet 650 mg 03-21 05:38: 49 Yes 650mg 650 mg, Oral, PRN, Starting on Tue03/21/23 at 0038, Until Discontinu ed, Routine, Before infusion [facility] lacosamide (VIMPAT) 100 mg in NaCl 0.9% (NS) 50 mL piggyback 03-21 03:45: 03-21 07:15 :00 No 100mg 100 mg, IV Piggyback, ONCE, 1 dose, On 03/20/23 at 2245, Administer over 30 Minutes, 50 mL
Facu lty member approving Restricted medication : DAVID TAVERA [facility] ibuprofen (IBU) tablet 800 mg 03-21 02:30: 00 03-21 06:09 :00 No 800mg 800 mg, Oral, ONCE, 1 dose, On 03/20/23 at 2130, HENRY [facility] lacosamide 50 mg tablet 03-21 00:00: 00 Yes [id number] 50mg Take 1 tablet by mouth in the morning and 1 tablet in the evening. [facility] lacosamide 50 mg tablet 03-21 00:00: 00 Yes [id number] 50mg Take 1 tablet by mouth in the morning and 1 tablet in the evening. [facility] lacosamide 50 mg tablet 03-21 00:00: 00 Yes [id number] 50mg Take 1 tablet by mouth in the morning and 1 tablet in the evening. [facility] lacosamide 50 mg tablet 03-21 00:00: 00 Yes [id number] 50mg Take 1 tablet by mouth in the morning and 1 tablet in the evening. [facility] lacosamide 50 mg tablet 03-21 00:00: 00 Yes [id number] 50mg Take 1 tablet by mouth in the morning and 1 tablet in the evening. [facility] lacosamide 50 mg tablet 03-21 00:00: 00 Yes [id number] 50mg Take 1 tablet by mouth in the morning and 1 tablet in the evening. [facility] lacosamide 50 mg tablet 03-21 00:00: 00 Yes [id number] 50mg Take 1 tablet by mouth in the morning and 1 tablet in the evening. [facility] lacosamide 50 mg tablet 03-21 00:00: 00 Yes [id number] 50mg Take 1 tablet by mouth in the morning and 1 tablet in the evening. [facility] lacosamide 50 mg tablet 03-21 00:00: 00 Yes [id number] 50mg Take 1 tablet by mouth in the morning and 1 tablet in the evening. [facility] lacosamide 50 mg tablet 03-21 00:00: 00 Yes [id number] 50mg Take 1 tablet by mouth in the morning and 1 tablet in the evening. [facility] lacosamide 50 mg tablet 03-21 00:00: 00 Yes [id number] 50mg Take 1 tablet by mouth in the morning and 1 tablet in the evening. [facility] lacosamide 50 mg tablet 03-21 00:00: 00 Yes [id number] 50mg Take 1 tablet by mouth in the morning and 1 tablet in the evening. [facility] lacosamide 50 mg tablet 03-21 00:00: 00 Yes [id number] 50mg Take 1 tablet by mouth in the morning and 1 tablet in the evening. [facility] lacosamide 50 mg tablet 03-21 00:00: 00 06-17 00:00 :00 No [id number] 50mg Take 1 tablet by mouth in the morning and 1 tablet in the evening. [facility] NaCl 0.9% (NS) bolus infusion 1,000 mL 03-20 23:00: 00 03-20 22:35 :00 No 1000mL at 999 mL/hr, 1,000 mL, IV Infusion, ONCE, 1 dose, On 03/20/23 at 1800, HENRY [facility] divalproex ER 500 mg 24 hr tablet 02-18 00:00: 00 Yes [id number] 2000mg Take 4 tablets by mouth in the morning and 4 tablets in the evening. [facility] divalproex ER 500 mg 24 hr tablet 02-18 00:00: 00 Yes [id number] 2000mg Take 4 tablets by mouth in the morning and 4 tablets in the evening. [facility] divalproex ER 500 mg 24 hr tablet 2023-0 7-28 00:00: 00 Yes [id number] 2000mg Take 4 tablets by mouth in the morning and 4 tablets in the evening. [facility] divalproex ER 500 mg 24 hr tablet 3-0 7-28 00:00: 00 Yes [id number] 2000mg Take 4 tablets by mouth in the morning and 4 tablets in the evening. [facility] divalproex ER 500 mg 24 hr tablet 3-0 7-28 00:00: 00 Yes [id number] 2000mg Take 4 tablets by mouth in the morning and 4 tablets in the evening. [facility] divalproex ER 500 mg 24 hr tablet 3-0 7-28 00:00: 00 Yes [id number] 2000mg Take 4 tablets by mouth in the morning and 4 tablets in the evening. [facility] divalproex ER 500 mg 24 hr tablet 3-0 728 00:00: 00 Yes [id number] 2000mg Take 4 tablets by mouth in the morning and 4 tablets in the evening. [facility] divalproex ER 500 mg 24 hr tablet 3-0 28 00:00: 00 Yes [id number] 2000mg Take 4 tablets by mouth in the morning and 4 tablets in the evening. [facility] divalproex ER 500 mg 24 hr tablet 3-0 28 00:00: 00 Yes [id number] 2000mg Take 4 tablets by mouth in the morning and 4 tablets in the evening. [facility] divalproex ER 500 mg 24 hr tablet 3-0 28 00:00: 00 Yes [id number] 2000mg Take 4 tablets by mouth in the morning and 4 tablets in the evening. [facility] divalproex ER 500 mg 24 hr tablet 3-0 7-28 00:00: 00 Yes [id number] 2000mg Take 4 tablets by mouth in the morning and 4 tablets in the evening. [facility] divalproex ER 500 mg 24 hr tablet 3-0 7-28 00:00: 00 Yes [id number] 2000mg Take 4 tablets by mouth in the morning and 4 tablets in the evening. [facility] divalproex ER 500 mg 24 hr tablet 02-18 00:00: 00 Yes [id number] 2000mg Take 4 tablets by mouth in the morning and 4 tablets in the evening. [facility] divalproex ER 500 mg 24 hr tablet 02-18 00:00: 00 Yes [id number] 2000mg Take 4 tablets by mouth in the morning and 4 tablets in the evening. [facility] divalproex ER 500 mg 24 hr tablet 02-18 00:00: 00 Yes [id number] 2000mg Take 4 tablets by mouth in the morning and 4 tablets in the evening. [facility] divalproex ER 500 mg 24 hr tablet 02-18 00:00: 00 Yes [id number] 2000mg Take 4 tablets by mouth in the morning and 4 tablets in the evening. [facility] divalproex ER 500 mg 24 hr tablet 02-18 00:00: 00 06-17 00:00 :00 No [id number] 2000mg Take 4 tablets by mouth in the morning and 4 tablets in the evening. [facility] omega-3s-dh a-epa-fish oil-D3 (FISH OIL-VIT D3) 360 mg-1,200 mg -1,000 unit Cap 02-16 11:59: 33 Yes Take by mouth. [facility] MULTIVITS-M INERALS/FA/ LYCOPENE (ONE-A-DAY MEN'S MULTIVITAMI N ORAL) 02-16 11:59: 33 Yes Take by mouth. [facility] POTASSIUM-9 9 ORAL 02-16 11:59: 33 Yes 99mg Take 99 mg by mouth daily. [facility] omega-3s-dh a-epa-fish oil-D3 (FISH OIL-VIT D3) 360 mg-1,200 mg -1,000 unit Cap 02-16 11:59: 33 Yes Take by mouth. [facility] MULTIVITS-M INERALS/FA/ LYCOPENE (ONE-A-DAY MEN'S MULTIVITAMI N ORAL) 02-16 11:59: 33 Yes Take by mouth. [facility] POTASSIUM-9 9 ORAL 02-16 11:59: 33 Yes 99mg Take 99 mg by mouth daily. [facility] omega-3s-dh a-epa-fish oil-D3 (FISH OIL-VIT D3) 360 mg-1,200 mg -1,000 unit Cap 02-16 11:59: 33 Yes Take by mouth. [facility] MULTIVITS-M INERALS/FA/ LYCOPENE (ONE-A-DAY MEN'S MULTIVITAMI N ORAL) 02-16 11:59: 33 Yes Take by mouth. [facility] POTASSIUM-9 9 ORAL 02-16 11:59: 33 Yes 99mg Take 99 mg by mouth daily. [facility] omega-3s-dh a-epa-fish oil-D3 (FISH OIL-VIT D3) 360 mg-1,200 mg -1,000 unit Cap 02-16 11:59: 33 Yes Take by mouth. [facility] MULTIVITS-M INERALS/FA/ LYCOPENE (ONE-A-DAY MEN'S MULTIVITAMI N ORAL) 02-16 11:59: 33 Yes Take by mouth. [facility] POTASSIUM-9 9 ORAL 02-16 11:59: 33 Yes 99mg Take 99 mg by mouth daily. [facility] divalproex ER (DEPAKOTE ER) 24 hr tablet 2,000 mg 02-16 01:00: 00 Yes [id number] 2000mg 2,000 mg, Oral, BID, First dose (after last modificati on) on Tue02/15/23 at 1999, Until Discontinu ed, Routine [facility] divalproex ER 500 mg 24 hr tablet 02-16 00:00: 00 Yes [id number] 2000mg Take 4 tablets by mouth in the morning and 4 tablets in the evening. [facility] divalproex ER 500 mg 24 hr tablet 02-16 00:00: 00 Yes [id number] 2000mg Take 4 tablets by mouth in the morning and 4 tablets in the evening. [facility] divalproex ER 500 mg 24 hr tablet 02-16 00:00: 00 02-18 00:00 :00 No [id number] 2000mg Take 4 tablets by mouth in the morning and 4 tablets in the evening. [facility] hydralAZINE (APRESOLINE ) injection 5 mg 02-15 02:36: 49 02-18 02:35 :49 No 5mg 5 mg, Slow IV Push, Q3HPRN, Starting on Tue02/14/23 at 2136, Until Karely 02/17/23 at 2135, Routine, DBP=>100; SBP=>180 [facility] atorvastati n (LIPITOR) tablet 20 mg 02-15 02:00: 00 Yes 20mg 20 mg, Oral, QHS, First dose on Tue02/14/23 at 2100, Until Discontinu ed, Routine [facility] iopamidol (ISOVUE 370-500 mL) injection 100 mL 02-14 16:30: 00 02-14 15:30 :00 No [id number] 100mL 100 mL, Intravenou s, ONCE, 1 dose, On Tue02/14/23 at 1130, Routine [facility] predniSONE (DELTASONE) tablet 5 mg 02-14 14:00: 00 Yes 5mg 5 mg, Oral, DAILY, First dose on Tue02/14/23 at 0900, Until Discontinu ed, Routine [facility] pantoprazol e (PROTONIX) EC tablet 40 mg 02-14 14:00: 00 Yes 40mg 40 mg, Oral, DAILY, First dose on Tue02/14/23 at 0900, Until Discontinu ed, Routine [facility] lisinopriL (PRINIVIL,Z ESTRIL) tablet 40 mg 02-14 14:00: 00 Yes 40mg 40 mg, Oral, DAILY, First dose on Tue02/14/23 at 0900, Until Discontinu ed [facility] ferrous sulfate tablet 325 mg 02-14 14:00: 00 Yes 325mg 325 mg, Oral, Q OTHERDAY, First dose on Tue02/14/23 at 0900, Until Discontinu ed, Routine [facility] amLODIPine (NORVASC) tablet 10 mg 02-14 14:00: 00 Yes 10mg 10 mg, Oral, DAILY, First dose on Tue02/14/23 at 0900, Until Discontinu ed, Routine [facility] KCL (KLOR-CON M20) tablet 40 mEq 02-14 14:00: 00 02-14 18:20 :00 No [id number] 40meq 40 mEq, Oral, ONCE, 1 dose, On Tue02/14/23 at 0900, Routine [facility] risperiDONE (RISPERDAL) tablet 1 mg 02-14 13:00: 00 Yes 1mg 1 mg, Oral, BID, First dose on Tue02/14/23 at 0800, Until Discontinu ed, Routine [facility] glyBURIDE (DIABETA) tablet 5 mg 02-14 13:00: 00 Yes 5mg 5 mg, Oral, QAM WITH BREAKFAST, First dose on Tue02/14/23 at 0800, Until Discontinu ed, Routine [facility] gabapentin (NEURONTIN) capsule 300 mg 02-14 13:00: 00 Yes 300mg 300 mg, Oral, TID, First dose on Tue02/14/23 at 0800, Until Discontinu ed, Routine [facility] fluticasone propionate 50 mcg/actuati on nasal spray 1 [place] 02-14 13:00: 00 Yes 1{spray } 1 [place], Nasal, BID, First dose on Tue02/14/23 at 0800, Until Discontinu ed, Routine [facility] carvediloL (COREG) tablet 25 mg 02-14 13:00: 00 Yes 25mg 25 mg, Oral, BID MEALS, First dose on Tue02/14/23 at 0800, Until Discontinu ed, Routine [facility] hydrALAZINE (APRESOLINE ) tablet 25 mg 02-14 11:00: 00 Yes 25mg 25 mg, Oral, Q6H, First dose on Tue02/14/23 at 0600, Until Discontinu ed, Routine [facility] hydrOXYzine (ATARAX) tablet 10 mg 02-14 06:26: 00 Yes 10mg 10 mg, Oral, Q6HPRN, Starting on Tue02/14/23 at 0126, Until Discontinu ed, Routine, Itching [facility] diphenhydrA MINE (BENADRYL) tablet 25 mg 02-14 06:25: 45 Yes 25mg 25 mg, Oral, PRN, Starting on Tue02/14/23 at 0125, Until Discontinu ed, Routine, Itching [facility] acetaminoph en (TYLENOL) tablet 650 mg 02-14 06:25: 39 Yes 650mg 650 mg, Oral, PRN, Starting on Tue02/14/23 at 0125, Until Discontinu ed, Routine, Before infusion [facility] acetaminoph en (TYLENOL) tablet 650 mg 02-14 05:22: 22 Yes 650mg 650 mg, Oral, Q6HPRN, Starting on Tue02/14/23 at 0022, Until Discontinu ed, Routine, Temp > 38 C [facility] omega-3s-dh a-epa-fish oil-D3 (FISH OIL-VIT D3) 360 mg-1,200 mg -1,000 unit Cap 01-31 15:09: 07 Yes Take by mouth. [facility] MULTIVITS-M INERALS/FA/ LYCOPENE (ONE-A-DAY MEN'S MULTIVITAMI N ORAL) 01-31 15:09: 07 Yes Take by mouth. [facility] POTASSIUM-9 9 ORAL 01-31 15:09: 07 Yes 99mg Take 99 mg by mouth daily. [facility] gabapentin 300 mg capsule 01-31 00:00: 00 Yes [id number] 300mg Take 1 capsule by mouth in the morning and 1 capsule at noon and 1 capsule in the evening. [facility] lisinopriL 40 mg tablet 01-31 00:00: 00 Yes [id number] 40mg Take 1 tablet by mouth in the morning. [facility] metFORMIN 1,000 mg tablet 3-0 7-10 00:00: 00 Yes [id number] 1000mg Take 1 tablet by mouth in the morning and 1 tablet in the evening. Take with meals. [facility] gabapentin 300 mg capsule 3-0 7-10 00:00: 00 Yes [id number] 300mg Take 1 capsule by mouth in the morning and 1 capsule at noon and 1 capsule in the evening. [facility] lisinopriL 40 mg tablet 3-0 7-10 00:00: 00 Yes [id number] 40mg Take 1 tablet by mouth in the morning. [facility] metFORMIN 1,000 mg tablet 3-0 7-10 00:00: 00 Yes [id number] 1000mg Take 1 tablet by mouth in the morning and 1 tablet in the evening. Take with meals. [facility] gabapentin 300 mg capsule 3-0 7-10 00:00: 00 Yes [id number] 300mg Take 1 capsule by mouth in the morning and 1 capsule at noon and 1 capsule in the evening. [facility] lisinopriL 40 mg tablet 3-0 7-10 00:00: 00 Yes [id number] 40mg Take 1 tablet by mouth in the morning. [facility] metFORMIN 1,000 mg tablet 3-0 7-10 00:00: 00 Yes [id number] 1000mg Take 1 tablet by mouth in the morning and 1 tablet in the evening. Take with meals. [facility] gabapentin 300 mg capsule 3-0 7-10 00:00: 00 Yes [id number] 300mg Take 1 capsule by mouth in the morning and 1 capsule at noon and 1 capsule in the evening. [facility] lisinopriL 40 mg tablet 3-0 7-10 00:00: 00 Yes [id number] 40mg Take 1 tablet by mouth in the morning. [facility] metFORMIN 1,000 mg tablet 3-0 7-10 00:00: 00 Yes [id number] 1000mg Take 1 tablet by mouth in the morning and 1 tablet in the evening. Take with meals. [facility] atorvastati n 20 mg tablet 2022-0 -10 00:00: 00 Yes [id number] 20mg Take 1 tablet by mouth at bedtime. [facility] hydrALAZINE 25 mg tablet 2022-0 710 00:00: 00 Yes [id number] 25mg Take 1 tablet by mouth every 6 (six) hours. [facility] gabapentin 300 mg capsule 2022-0 10 00:00: 00 Yes [id number] 300mg Take 1 capsule by mouth in the morning and 1 capsule at noon and 1 capsule in the evening. [facility] lisinopriL 40 mg tablet 2022-0 10 00:00: 00 Yes [id number] 40mg Take 1 tablet by mouth in the morning. [facility] glyBURIDE 5 mg tablet 2022-0 10 00:00: 00 Yes [id number] 5mg Take 1 tablet by mouth daily with breakfast. [facility] metFORMIN 1,000 mg tablet 2022-0 10 00:00: 00 Yes [id number] 1000mg Take 1 tablet by mouth in the morning and 1 tablet in the evening. Take with meals. [facility] atorvastati n 20 mg tablet 2022-0 10 00:00: 00 Yes [id number] 20mg Take 1 tablet by mouth at bedtime. [facility] hydrALAZINE 25 mg tablet 2022-0 10 00:00: 00 Yes [id number] 25mg Take 1 tablet by mouth every 6 (six) hours. [facility] gabapentin 300 mg capsule 2022-0 10 00:00: 00 Yes [id number] 300mg Take 1 capsule by mouth in the morning and 1 capsule at noon and 1 capsule in the evening. [facility] lisinopriL 40 mg tablet 2022-0 10 00:00: 00 Yes [id number] 40mg Take 1 tablet by mouth in the morning. [facility] glyBURIDE 5 mg tablet 2022-0 -10 00:00: 00 Yes [id number] 5mg Take 1 tablet by mouth daily with breakfast. [facility] metFORMIN 1,000 mg tablet 2022-0 7-10 00:00: 00 Yes [id number] 1000mg Take 1 tablet by mouth in the morning and 1 tablet in the evening. Take with meals. [facility] atorvastati n 20 mg tablet 2022-0 10 00:00: 00 Yes [id number] 20mg Take 1 tablet by mouth at bedtime. [facility] hydrALAZINE 25 mg tablet 2022-0 10 00:00: 00 Yes [id number] 25mg Take 1 tablet by mouth every 6 (six) hours. [facility] gabapentin 300 mg capsule 2022-0 10 00:00: 00 Yes [id number] 300mg Take 1 capsule by mouth in the morning and 1 capsule at noon and 1 capsule in the evening. [facility] lisinopriL 40 mg tablet 2022-0 01-31 00:00: 00 Yes [id number] 40mg Take 1 tablet by mouth in the morning. [facility] glyBURIDE 5 mg tablet 2022-0 01-31 00:00: 00 Yes [id number] 5mg Take 1 tablet by mouth daily with breakfast. [facility] metFORMIN 1,000 mg tablet 2022-0 01-31 00:00: 00 Yes [id number] 1000mg Take 1 tablet by mouth in the morning and 1 tablet in the evening. Take with meals. [facility] atorvastati n 20 mg tablet 2022-0 10 00:00: 00 Yes [id number] 20mg Take 1 tablet by mouth at bedtime. [facility] hydrALAZINE 25 mg tablet 2022-0 10 00:00: 00 Yes [id number] 25mg Take 1 tablet by mouth every 6 (six) hours. [facility] gabapentin 300 mg capsule 2022-0 10 00:00: 00 Yes [id number] 300mg Take 1 capsule by mouth in the morning and 1 capsule at noon and 1 capsule in the evening. [facility] lisinopriL 40 mg tablet 2022-0 10 00:00: 00 Yes [id number] 40mg Take 1 tablet by mouth in the morning. [facility] glyBURIDE 5 mg tablet 2022-0 7-10 00:00: 00 Yes [id number] 5mg Take 1 tablet by mouth daily with breakfast. [facility] metFORMIN 1,000 mg tablet 0 01-31 00:00: 00 Yes [id number] 1000mg Take 1 tablet by mouth in the morning and 1 tablet in the evening. Take with meals. [facility] atorvastati n 20 mg tablet 2022-0 01-31 00:00: 00 Yes [id number] 20mg Take 1 tablet by mouth at bedtime. [facility] hydrALAZINE 25 mg tablet 0 01-31 00:00: 00 Yes [id number] 25mg Take 1 tablet by mouth every 6 (six) hours. [facility] gabapentin 300 mg capsule 01-31 00:00: 00 Yes [id number] 300mg Take 1 capsule by mouth in the morning and 1 capsule at noon and 1 capsule in the evening. [facility] lisinopriL 40 mg tablet 0 01-31 00:00: 00 Yes [id number] 40mg Take 1 tablet by mouth in the morning. [facility] glyBURIDE 5 mg tablet 0 01-31 00:00: 00 Yes [id number] 5mg Take 1 tablet by mouth daily with breakfast. [facility] metFORMIN 1,000 mg tablet 0 01-31 00:00: 00 Yes [id number] 1000mg Take 1 tablet by mouth in the morning and 1 tablet in the evening. Take with meals. [facility] atorvastati n 20 mg tablet 0 01-31 00:00: 00 Yes [id number] 20mg Take 1 tablet by mouth at bedtime. [facility] hydrALAZINE 25 mg tablet 0 01-31 00:00: 00 Yes [id number] 25mg Take 1 tablet by mouth every 6 (six) hours. [facility] gabapentin 300 mg capsule 2022-0 01-31 00:00: 00 Yes [id number] 300mg Take 1 capsule by mouth in the morning and 1 capsule at noon and 1 capsule in the evening. [facility] lisinopriL 40 mg tablet 2022-0 01-31 00:00: 00 Yes [id number] 40mg Take 1 tablet by mouth in the morning. [facility] glyBURIDE 5 mg tablet 2022-0 10 00:00: 00 Yes [id number] 5mg Take 1 tablet by mouth daily with breakfast. [facility] metFORMIN 1,000 mg tablet 2022-0 10 00:00: 00 Yes [id number] 1000mg Take 1 tablet by mouth in the morning and 1 tablet in the evening. Take with meals. [facility] gabapentin 300 mg capsule 2022-0 10 00:00: 00 Yes [id number] 300mg Take 1 capsule by mouth in the morning and 1 capsule at noon and 1 capsule in the evening. [facility] lisinopriL 40 mg tablet 2022-0 10 00:00: 00 Yes [id number] 40mg Take 1 tablet by mouth in the morning. [facility] metFORMIN 1,000 mg tablet 2022-0 01-31 00:00: 00 Yes [id number] 1000mg Take 1 tablet by mouth in the morning and 1 tablet in the evening. Take with meals. [facility] gabapentin 300 mg capsule 2022-0 10 00:00: 00 Yes [id number] 300mg Take 1 capsule by mouth in the morning and 1 capsule at noon and 1 capsule in the evening. [facility] lisinopriL 40 mg tablet 2022-0 10 00:00: 00 Yes [id number] 40mg Take 1 tablet by mouth in the morning. [facility] metFORMIN 1,000 mg tablet 2022-0 10 00:00: 00 Yes [id number] 1000mg Take 1 tablet by mouth in the morning and 1 tablet in the evening. Take with meals. [facility] gabapentin 300 mg capsule 2022-0 10 00:00: 00 Yes [id number] 300mg Take 1 capsule by mouth in the morning and 1 capsule at noon and 1 capsule in the evening. [facility] lisinopriL 40 mg tablet 3-0 7-10 00:00: 00 Yes [id number] 40mg Take 1 tablet by mouth in the morning. [facility] metFORMIN 1,000 mg tablet 2023-0 7-10 00:00: 00 Yes [id number] 1000mg Take 1 tablet by mouth in the morning and 1 tablet in the evening. Take with meals. [facility] gabapentin 300 mg capsule 3-0 7-10 00:00: 00 Yes [id number] 300mg Take 1 capsule by mouth in the morning and 1 capsule at noon and 1 capsule in the evening. [facility] lisinopriL 40 mg tablet 3-0 7-10 00:00: 00 Yes [id number] 40mg Take 1 tablet by mouth in the morning. [facility] metFORMIN 1,000 mg tablet 3-0 7-10 00:00: 00 Yes [id number] 1000mg Take 1 tablet by mouth in the morning and 1 tablet in the evening. Take with meals. [facility] gabapentin 300 mg capsule 3-0 7-10 00:00: 00 Yes [id number] 300mg Take 1 capsule by mouth in the morning and 1 capsule at noon and 1 capsule in the evening. [facility] lisinopriL 40 mg tablet 3-0 7-10 00:00: 00 Yes [id number] 40mg Take 1 tablet by mouth in the morning. [facility] metFORMIN 1,000 mg tablet 3-0 7-10 00:00: 00 Yes [id number] 1000mg Take 1 tablet by mouth in the morning and 1 tablet in the evening. Take with meals. [facility] gabapentin 300 mg capsule 3-0 7-10 00:00: 00 Yes [id number] 300mg Take 1 capsule by mouth in the morning and 1 capsule at noon and 1 capsule in the evening. [facility] lisinopriL 40 mg tablet 3-0 7-10 00:00: 00 Yes [id number] 40mg Take 1 tablet by mouth in the morning. [facility] metFORMIN 1,000 mg tablet 3-0 7-10 00:00: 00 Yes [id number] 1000mg Take 1 tablet by mouth in the morning and 1 tablet in the evening. Take with meals. [facility] gabapentin 300 mg capsule 3-0 7-10 00:00: 00 Yes [id number] 300mg Take 1 capsule by mouth in the morning and 1 capsule at noon and 1 capsule in the evening. [facility] lisinopriL 40 mg tablet 3-0 7-10 00:00: 00 Yes [id number] 40mg Take 1 tablet by mouth in the morning. [facility] metFORMIN 1,000 mg tablet 3-0 7-10 00:00: 00 Yes [id number] 1000mg Take 1 tablet by mouth in the morning and 1 tablet in the evening. Take with meals. [facility] gabapentin 300 mg capsule 3-0 7-10 00:00: 00 Yes [id number] 300mg Take 1 capsule by mouth in the morning and 1 capsule at noon and 1 capsule in the evening. [facility] lisinopriL 40 mg tablet 3-0 7-10 00:00: 00 Yes [id number] 40mg Take 1 tablet by mouth in the morning. [facility] metFORMIN 1,000 mg tablet 3-0 7-10 00:00: 00 Yes [id number] 1000mg Take 1 tablet by mouth in the morning and 1 tablet in the evening. Take with meals. [facility] gabapentin 300 mg capsule 3-0 7-10 00:00: 00 Yes [id number] 300mg Take 1 capsule by mouth in the morning and 1 capsule at noon and 1 capsule in the evening. [facility] lisinopriL 40 mg tablet 3-0 7-10 00:00: 00 Yes [id number] 40mg Take 1 tablet by mouth in the morning. [facility] metFORMIN 1,000 mg tablet 3-0 7-10 00:00: 00 Yes [id number] 1000mg Take 1 tablet by mouth in the morning and 1 tablet in the evening. Take with meals. [facility] gabapentin 300 mg capsule 3-0 7-10 00:00: 00 Yes [id number] 300mg Take 1 capsule by mouth in the morning and 1 capsule at noon and 1 capsule in the evening. [facility] lisinopriL 40 mg tablet 3-0 7-10 00:00: 00 Yes [id number] 40mg Take 1 tablet by mouth in the morning. [facility] metFORMIN 1,000 mg tablet 3-0 7-10 00:00: 00 Yes [id number] 1000mg Take 1 tablet by mouth in the morning and 1 tablet in the evening. Take with meals. [facility] gabapentin 300 mg capsule 3-0 7-10 00:00: 00 Yes [id number] 300mg Take 1 capsule by mouth in the morning and 1 capsule at noon and 1 capsule in the evening. [facility] lisinopriL 40 mg tablet 3-0 7-10 00:00: 00 Yes [id number] 40mg Take 1 tablet by mouth in the morning. [facility] metFORMIN 1,000 mg tablet 3-0 7-10 00:00: 00 Yes [id number] 1000mg Take 1 tablet by mouth in the morning and 1 tablet in the evening. Take with meals. [facility] gabapentin 300 mg capsule 3-0 7-10 00:00: 00 Yes [id number] 300mg Take 1 capsule by mouth in the morning and 1 capsule at noon and 1 capsule in the evening. [facility] lisinopriL 40 mg tablet 3-0 7-10 00:00: 00 Yes [id number] 40mg Take 1 tablet by mouth in the morning. [facility] metFORMIN 1,000 mg tablet 3-0 7-10 00:00: 00 Yes [id number] 1000mg Take 1 tablet by mouth in the morning and 1 tablet in the evening. Take with meals. [facility] gabapentin 300 mg capsule 3-0 7-10 00:00: 00 Yes [id number] 300mg Take 1 capsule by mouth in the morning and 1 capsule at noon and 1 capsule in the evening. [facility] lisinopriL 40 mg tablet 3-0 7-10 00:00: 00 Yes [id number] 40mg Take 1 tablet by mouth in the morning. [facility] metFORMIN 1,000 mg tablet 3-0 7-10 00:00: 00 Yes [id number] 1000mg Take 1 tablet by mouth in the morning and 1 tablet in the evening. Take with meals. [facility] gabapentin 300 mg capsule 3-0 7-10 00:00: 00 Yes [id number] 300mg Take 1 capsule by mouth in the morning and 1 capsule at noon and 1 capsule in the evening. [facility] lisinopriL 40 mg tablet 01-31 00:00: 00 Yes [id number] 40mg Take 1 tablet by mouth in the morning. [facility] metFORMIN 1,000 mg tablet 01-31 00:00: 00 Yes [id number] 1000mg Take 1 tablet by mouth in the morning and 1 tablet in the evening. Take with meals. [facility] riTUXimab (RITUXAN) 1,000 mg in NaCl 0.9% (NS) 1,000 mL infusion 12-01 17:00: 00 12-01 20:21 :00 No [id number] 1000mg 1,000 mg, IV Infusion, ONCE, On [...] d 30 minutes prior to each infusion. [place] [facility] (e.g., glucocorti coids, epinephrin e, [...] occur in patients receiving Rituximab. &nbs p;
[facility] riTUXimab (RITUXAN) 1,000 mg in NaCl 0.9% (NS) 1,000 mL infusion 12-01 17:00: 00 12-01 20:21 :00 No [id number] 1000mg 1,000 mg, IV Infusion, ONCE, On [...] d 30 minutes prior to each infusion. [facility] (e.g., glucocorti coids, epinephrin e, [...] occur in patients receiving Rituximab. &nbs p;
[facility] riTUXimab (RITUXAN) 1,000 mg in NaCl 0.9% (NS) 1,000 mL infusion 12-01 17:00: 00 12-01 20:21 :00 No [id number] 1000mg 1,000 mg, IV Infusion, ONCE, On [...] d 30 minutes prior to each infusion. [facility] (e.g., glucocorti coids, epinephrin e, [...] occur in patients receiving Rituximab. &nbs p;
[facility] riTUXimab (RITUXAN) 1,000 mg in NaCl 0.9% (NS) 1,000 mL infusion 12-01 17:00: 00 12-01 20:21 :00 No [id number] 1000mg 1,000 mg, IV Infusion, ONCE, On [...] d 30 minutes prior to each infusion. [facility] (e.g., glucocorti coids, epinephrin e, [...] in patients receiving Rituximab. &nbs p;
[facility] riTUXimab (RITUXAN) 1,000 mg in NaCl 0.9% (NS) 1,000 mL infusion 12-01 17:00: 00 12-01 20:21 :00 No [id number] 1000mg 1,000 mg, IV Infusion, ONCE, On [...] d 30 minutes prior to each infusion. [facility] (e.g., glucocorti coids, epinephrin e, [...] patients receiving Rituximab. &nbs p;
[facility] riTUXimab (RITUXAN) 1,000 mg in NaCl 0.9% (NS) 1,000 mL infusion 12-01 17:00: 00 12-01 20:21 :00 No [id number] 1000mg 1,000 mg, IV Infusion, ONCE, On [...] d 30 minutes prior to each infusion. [facility] [place] [facility] (e.g., glucocorti coids, epinephrin e, [...] patients receiving Rituximab. &nbs p;
[facility] riTUXimab (RITUXAN) 1,000 mg in NaCl 0.9% (NS) 1,000 mL infusion 12-01 17:00: 00 12-01 20:21 :00 No [id number] 1000mg 1,000 mg, IV Infusion, ONCE, On [...] d 30 minutes prior to each infusion. [facility] (e.g., glucocorti coids, epinephrin e, [...] in patients receiving Rituximab. &nbs p;
[facility] riTUXimab (RITUXAN) 1,000 mg in NaCl 0.9% (NS) 1,000 mL infusion 12-01 17:00: 00 12-01 20:21 :00 No [id number] 1000mg 1,000 mg, IV Infusion, ONCE, On [...] d 30 minutes prior to each infusion. [facility] (e.g., glucocorti coids, epinephrin e, [...] in patients receiving Rituximab. &nbs p;
[facility] riTUXimab (RITUXAN) 1,000 mg in NaCl 0.9% (NS) 1,000 mL infusion 12-01 17:00: 00 12-01 20:21 :00 No [id number] 1000mg 1,000 mg, IV Infusion, ONCE, On [...] d 30 minutes prior to each infusion. [facility] (e.g., glucocorti coids, epinephrin e, [...] occur in patients receiving Rituximab. &nbs p;
[facility] riTUXimab (RITUXAN) 1,000 mg in NaCl 0.9% (NS) 1,000 mL infusion 12-01 17:00: 00 12-01 20:21 :00 No [id number] 1000mg 1,000 mg, IV Infusion, ONCE, On [...] d 30 minutes prior to each infusion. [facility] (e.g., glucocorti coids, epinephrin e, [...] occur in patients receiving Rituximab. &nbs p;
[facility] riTUXimab (RITUXAN) 1,000 mg in NaCl 0.9% (NS) 1,000 mL infusion 12-01 17:00: 00 12-01 20:21 :00 No [id number] 1000mg 1,000 mg, IV Infusion, ONCE, On [...] d 30 minutes prior to each infusion. [facility] (e.g., glucocorti coids, epinephrin e, [...] in patients receiving Rituximab. &nbs p;
[facility] riTUXimab (RITUXAN) 1,000 mg in NaCl 0.9% (NS) 1,000 mL infusion 12-01 17:00: 00 12-01 20:21 :00 No [id number] 1000mg 1,000 mg, IV Infusion, ONCE, On [...] d 30 minutes prior to each infusion. [facility] (e.g., glucocorti coids, epinephrin e, [...] in patients receiving Rituximab. &nbs p;
[facility] riTUXimab (RITUXAN) 1,000 mg in NaCl 0.9% (NS) 1,000 mL infusion 12-01 17:00: 00 12-01 20:21 :00 No [id number] 1000mg 1,000 mg, IV Infusion, ONCE, On [...] d 30 minutes prior to each infusion. [facility] (e.g., glucocorti coids, epinephrin e, [...] in patients receiving Rituximab. &nbs p;
[facility] riTUXimab (RITUXAN) 1,000 mg in NaCl 0.9% (NS) 1,000 mL infusion 12-01 17:00: 00 12-01 20:21 :00 No [id number] 1000mg 1,000 mg, IV Infusion, ONCE, On [...] d 30 minutes prior to each infusion. [facility] (e.g., glucocorti coids, epinephrin e, [...] in patients receiving Rituximab. &nbs p;
[facility] riTUXimab (RITUXAN) 1,000 mg in NaCl 0.9% (NS) 1,000 mL infusion 12-01 17:00: 00 12-01 20:21 :00 No [id number] 1000mg 1,000 mg, IV Infusion, ONCE, On [...] d 30 minutes prior to each infusion. [facility] (e.g., glucocorti coids, epinephrin e, [...] in patients receiving Rituximab. &nbs p;
[facility] riTUXimab (RITUXAN) 1,000 mg in NaCl 0.9% (NS) 1,000 mL infusion 12-01 17:00: 00 12-01 20:21 :00 No [id number] 1000mg 1,000 mg, IV Infusion, ONCE, On [...] d 30 minutes prior to each infusion. [facility] (e.g., glucocorti coids, epinephrin e, [...] in patients receiving Rituximab. &nbs p;
[facility] riTUXimab (RITUXAN) 1,000 mg in NaCl 0.9% (NS) 1,000 mL infusion 12-01 17:00: 00 12-01 20:21 :00 No [id number] 1000mg 1,000 mg, IV Infusion, ONCE, On [...] d 30 minutes prior to each infusion. [facility] (e.g., glucocorti coids, epinephrin e, [...] occur in patients receiving Rituximab. &nbs p;
[facility] acetaminoph en (TYLENOL) tablet 650 mg 3-0 -10 14:15: 00 12-01 14:06 :00 No [id number] 650mg 650 mg, Oral, ONCE, 1 dose, On Tue12/01/22 at 0915, Routine [facility] diphenhydrA MINE (BENADRYL) tablet 25 mg 2022-0 12-01 14:15: 00 12-01 14:06 :00 No [id number] 25mg 25 mg, Oral, ONCE, 1 dose, On Tue12/01/22 at 0915, Routine [facility] acetaminoph en (TYLENOL) tablet 650 mg 2022-12-01 14:15: 00 12-01 14:06 :00 No [id number] 650mg 650 mg, Oral, ONCE, 1 dose, On Tue12/01/22 at 0915, Routine [facility] diphenhydrA MINE (BENADRYL) tablet 25 mg 2022-0 12-01 14:15: 00 12-01 14:06 :00 No [id number] 25mg 25 mg, Oral, ONCE, 1 dose, On Tue12/01/22 at 0915, Routine [facility] acetaminoph en (TYLENOL) tablet 650 mg 2022-0 12-01 14:15: 00 12-01 14:06 :00 No [id number] 650mg 650 mg, Oral, ONCE, 1 dose, On Tue12/01/22 at 0915, Routine [facility] diphenhydrA MINE (BENADRYL) tablet 25 mg 3-0 12-01 14:15: 00 12-01 14:06 :00 No [id number] 25mg 25 mg, Oral, ONCE, 1 dose, On Tue12/01/22 at 0915, Routine [facility] acetaminoph en (TYLENOL) tablet 650 mg 2023-0 5-10 14:15: 00 12-01 14:06 :00 No [id number] 650mg 650 mg, Oral, ONCE, 1 dose, On Tue12/01/22 at 0915, Routine [facility] diphenhydrA MINE (BENADRYL) tablet 25 mg 3-0 5-10 14:15: 00 12-01 14:06 :00 No [id number] 25mg 25 mg, Oral, ONCE, 1 dose, On Tue12/01/22 at 0915, Routine [facility] acetaminoph en (TYLENOL) tablet 650 mg 3-0 10 14:15: 00 12-01 14:06 :00 No [id number] 650mg 650 mg, Oral, ONCE, 1 dose, On Tue12/01/22 at 0915, Routine [facility] diphenhydrA MINE (BENADRYL) tablet 25 mg 2022-0 12-01 14:15: 00 12-01 14:06 :00 No [id number] 25mg 25 mg, Oral, ONCE, 1 dose, On Tue12/01/22 at 0915, Routine [facility] acetaminoph en (TYLENOL) tablet 650 mg 2022-0 12-01 14:15: 00 12-01 14:06 :00 No [id number] 650mg 650 mg, Oral, ONCE, 1 dose, On Tue12/01/22 at 0915, Routine [facility] diphenhydrA MINE (BENADRYL) tablet 25 mg 3-0 10 14:15: 00 12-01 14:06 :00 No [id number] 25mg 25 mg, Oral, ONCE, 1 dose, On Tue12/01/22 at 0915, Routine [facility] acetaminoph en (TYLENOL) tablet 650 mg 3-0 12-01 14:15: 00 12-01 14:06 :00 No [id number] 650mg 650 mg, Oral, ONCE, 1 dose, On Tue12/01/22 at 0915, Routine [facility] diphenhydrA MINE (BENADRYL) tablet 25 mg 2022-0 5-10 14:15: 00 12-01 14:06 :00 No [id number] 25mg 25 mg, Oral, ONCE, 1 dose, On Tue12/01/22 at 0915, Routine [facility] acetaminoph en (TYLENOL) tablet 650 mg 3-0 5-10 14:15: 00 12-01 14:06 :00 No [id number] 650mg 650 mg, Oral, ONCE, 1 dose, On Tue12/01/22 at 0915, Routine [facility] diphenhydrA MINE (BENADRYL) tablet 25 mg 2022-0 12-01 14:15: 00 12-01 14:06 :00 No [id number] 25mg 25 mg, Oral, ONCE, 1 dose, On Tue12/01/22 at 0915, Routine [facility] acetaminoph en (TYLENOL) tablet 650 mg 2022-0 12-01 14:15: 00 12-01 14:06 :00 No [id number] 650mg 650 mg, Oral, ONCE, 1 dose, On Tue12/01/22 at 0915, Routine [facility] diphenhydrA MINE (BENADRYL) tablet 25 mg 2022-0 12-01 14:15: 00 12-01 14:06 :00 No [id number] 25mg 25 mg, Oral, ONCE, 1 dose, On Tue12/01/22 at 0915, Routine [facility] acetaminoph en (TYLENOL) tablet 650 mg 2022-0 10 14:15: 00 12-01 14:06 :00 No [id number] 650mg 650 mg, Oral, ONCE, 1 dose, On Tue12/01/22 at 0915, Routine [facility] diphenhydrA MINE (BENADRYL) tablet 25 mg 2022-0 10 14:15: 00 12-01 14:06 :00 No [id number] 25mg 25 mg, Oral, ONCE, 1 dose, On Tue12/01/22 at 0915, Routine [facility] acetaminoph en (TYLENOL) tablet 650 mg 2022-0 12-01 14:15: 12-01 14:06 :00 No [id number] 650mg 650 mg, Oral, ONCE, 1 dose, On Tue12/01/22 at 0915, Routine [facility] diphenhydrA MINE (BENADRYL) tablet 25 mg 3-0 -10 14:15: 00 12-01 14:06 :00 No [id number] 25mg 25 mg, Oral, ONCE, 1 dose, On Tue12/01/22 at 0915, Routine [facility] acetaminoph en (TYLENOL) tablet 650 mg 3-0 12-01 14:15: 00 12-01 14:06 :00 No [id number] 650mg 650 mg, Oral, ONCE, 1 dose, On Tue12/01/22 at 0915, Routine [facility] diphenhydrA MINE (BENADRYL) tablet 25 mg 2022-0 12-01 14:15: 00 12-01 14:06 :00 No [id number] 25mg 25 mg, Oral, ONCE, 1 dose, On Tue12/01/22 at 0915, Routine [facility] acetaminoph en (TYLENOL) tablet 650 mg 2022-0 12-01 14:15: 00 12-01 14:06 :00 No [id number] 650mg 650 mg, Oral, ONCE, 1 dose, On Tue12/01/22 at 0915, Routine [facility] diphenhydrA MINE (BENADRYL) tablet 25 mg 3-0 -10 14:15: 00 12-01 14:06 :00 No [id number] 25mg 25 mg, Oral, ONCE, 1 dose, On Tue12/01/22 at 0915, Routine [facility] acetaminoph en (TYLENOL) tablet 650 mg 3-0 12-01 14:15: 00 12-01 14:06 :00 No [id number] 650mg 650 mg, Oral, ONCE, 1 dose, On Tue12/01/22 at 0915, Routine [facility] diphenhydrA MINE (BENADRYL) tablet 25 mg 3-0 10 14:15: 00 12-01 14:06 :00 No [id number] 25mg 25 mg, Oral, ONCE, 1 dose, On Tue12/01/22 at 0915, Routine [facility] acetaminoph en (TYLENOL) tablet 650 mg 12-01 14:15: 00 12-01 14:06 :00 No [id number] 650mg 650 mg, Oral, ONCE, 1 dose, On Tue12/01/22 at 0915, Routine [facility] diphenhydrA MINE (BENADRYL) tablet 25 mg 12-01 14:15: 00 12-01 14:06 :00 No [id number] 25mg 25 mg, Oral, ONCE, 1 dose, On Tue12/01/22 at 0915, Routine [facility] acetaminoph en (TYLENOL) tablet 650 mg 12-01 14:15: 00 12-01 14:06 :00 No [id number] 650mg 650 mg, Oral, ONCE, 1 dose, On Tue12/01/22 at 0915, Routine [facility] diphenhydrA MINE (BENADRYL) tablet 25 mg 12-01 14:15: 00 12-01 14:06 :00 No [id number] 25mg 25 mg, Oral, ONCE, 1 dose, On Tue12/01/22 at 0915, Routine [facility] acetaminoph en (TYLENOL) tablet 650 mg 12-01 14:15: 00 12-01 14:06 :00 No [id number] 650mg 650 mg, Oral, ONCE, 1 dose, On Tue12/01/22 at 0915, Routine [facility] diphenhydrA MINE (BENADRYL) tablet 25 mg 12-01 14:15: 12-01 14:06 :00 No [id number] 25mg 25 mg, Oral, ONCE, 1 dose, On Tue12/01/22 at 0915, Routine [facility] fluticasone propionate (FLONASE ALLERGY RELIEF) 50 mcg/actuati on nasal spray 4-26 00:00: 00 Yes [id number] 1{spray } Use 1 [place] in each nostril in the morning and 1 [place] in the evening. [facility] glyBURIDE 5 mg tablet 0 11-17 00:00: 00 Yes [id number] 5mg Take 1 tablet by mouth daily with breakfast. [facility] fluticasone propionate (FLONASE ALLERGY RELIEF) 50 mcg/actuati on nasal spray 11-17 00:00: 00 Yes [id number] 1{spray } Use 1 [place] in each nostril in the morning and 1 [place] in the evening. [facility] glyBURIDE 5 mg tablet 0 11-17 00:00: 00 Yes [id number] 5mg Take 1 tablet by mouth daily with breakfast. [facility] fluticasone propionate (FLONASE ALLERGY RELIEF) 50 mcg/actuati on nasal spray 11-17 00:00: 00 Yes [id number] 1{spray } Use 1 [place] in each nostril in the morning and 1 [place] in the evening. [facility] glyBURIDE 5 mg tablet 0 11-17 00:00: 00 Yes [id number] 5mg Take 1 tablet by mouth daily with breakfast. [facility] fluticasone propionate (FLONASE ALLERGY RELIEF) 50 mcg/actuati on nasal spray 0 11-17 00:00: 00 Yes [id number] 1{spray } Use 1 [place] in each nostril in the morning and 1 [place] in the evening. [facility] glyBURIDE 5 mg tablet 0 11-17 00:00: 00 Yes [id number] 5mg Take 1 tablet by mouth daily with breakfast. [facility] fluticasone propionate (FLONASE ALLERGY RELIEF) 50 mcg/actuati on nasal spray 0 11-17 00:00: 00 Yes [id number] 1{spray } Use 1 [place] in each nostril in the morning and 1 [place] in the evening. [facility] glyBURIDE 5 mg tablet 2022-0 11-17 00:00: 00 Yes [id number] 5mg Take 1 tablet by mouth daily with breakfast. [facility] fluticasone propionate (FLONASE ALLERGY RELIEF) 50 mcg/actuati on nasal spray 0 11-17 00:00: 00 Yes [id number] 1{spray } Use 1 [place] in each nostril in the morning and 1 [place] in the evening. [facility] glyBURIDE 5 mg tablet 2022-0 11-17 00:00: 00 Yes [id number] 5mg Take 1 tablet by mouth daily with breakfast. [facility] fluticasone propionate (FLONASE ALLERGY RELIEF) 50 mcg/actuati on nasal spray 2022-0 11-17 00:00: 00 Yes [id number] 1{spray } Use 1 [place] in each nostril in the morning and 1 [place] in the evening. [facility] glyBURIDE 5 mg tablet 0 11-17 00:00: 00 Yes [id number] 5mg Take 1 tablet by mouth daily with breakfast. [facility] fluticasone propionate (FLONASE ALLERGY RELIEF) 50 mcg/actuati on nasal spray 0 11-17 00:00: 00 Yes [id number] 1{spray } Use 1 [place] in each nostril in the morning and 1 [place] in the evening. [facility] glyBURIDE 5 mg tablet 2022-0 11-17 00:00: 00 Yes [id number] 5mg Take 1 tablet by mouth daily with breakfast. [facility] fluticasone propionate (FLONASE ALLERGY RELIEF) 50 mcg/actuati on nasal spray 0 11-17 00:00: 00 Yes [id number] 1{spray } Use 1 [place] in each nostril in the morning and 1 [place] in the evening. [facility] glyBURIDE 5 mg tablet 0 11-17 00:00: 00 Yes [id number] 5mg Take 1 tablet by mouth daily with breakfast. [facility] fluticasone propionate (FLONASE ALLERGY RELIEF) 50 mcg/actuati on nasal spray 2022-0 11-17 00:00: 00 Yes [id number] 1{spray } Use 1 [place] in each nostril in the morning and 1 [place] in the evening. [facility] glyBURIDE 5 mg tablet 0 11-17 00:00: 00 Yes [id number] 5mg Take 1 tablet by mouth daily with breakfast. [facility] fluticasone propionate (FLONASE ALLERGY RELIEF) 50 mcg/actuati on nasal spray 0 11-17 00:00: 00 Yes [id number] 1{spray } Use 1 [place] in each nostril in the morning and 1 [place] in the evening. [facility] glyBURIDE 5 mg tablet 11-17 00:00: 00 Yes [id number] 5mg Take 1 tablet by mouth daily with breakfast. [facility] fluticasone propionate (FLONASE ALLERGY RELIEF) 50 mcg/actuati on nasal spray 11-17 00:00: 00 Yes [id number] 1{spray } Use 1 [place] in each nostril in the morning and 1 [place] in the evening. [facility] glyBURIDE 5 mg tablet 11-17 00:00: 00 Yes [id number] 5mg Take 1 tablet by mouth daily with breakfast. [facility] fluticasone propionate (FLONASE ALLERGY RELIEF) 50 mcg/actuati on nasal spray 11-17 00:00: 00 Yes [id number] 1{spray } Use 1 [place] in each nostril in the morning and 1 [place] in the evening. [facility] glyBURIDE 5 mg tablet 11-17 00:00: 00 Yes [id number] 5mg Take 1 tablet by mouth daily with breakfast. [facility] fluticasone propionate (FLONASE ALLERGY RELIEF) 50 mcg/actuati on nasal spray 11-17 00:00: 00 Yes [id number] 1{spray } Use 1 [place] in each nostril in the morning and 1 [place] in the evening. [facility] glyBURIDE 5 mg tablet 0 11-17 00:00: 00 Yes [id number] 5mg Take 1 tablet by mouth daily with breakfast. [facility] fluticasone propionate (FLONASE ALLERGY RELIEF) 50 mcg/actuati on nasal spray 0 11-17 00:00: 00 Yes [id number] 1{spray } Use 1 [place] in each nostril in the morning and 1 [place] in the evening. [facility] glyBURIDE 5 mg tablet 0 11-17 00:00: 00 Yes [id number] 5mg Take 1 tablet by mouth daily with breakfast. [facility] fluticasone propionate (FLONASE ALLERGY RELIEF) 50 mcg/actuati on nasal spray 11-17 00:00: 00 Yes [id number] 1{spray } Use 1 [place] in each nostril in the morning and 1 [place] in the evening. [facility] glyBURIDE 5 mg tablet 0 11-17 00:00: 00 Yes [id number] 5mg Take 1 tablet by mouth daily with breakfast. [facility] fluticasone propionate (FLONASE ALLERGY RELIEF) 50 mcg/actuati on nasal spray 0 11-17 00:00: 00 Yes [id number] 1{spray } Use 1 [place] in each nostril in the morning and 1 [place] in the evening. [facility] glyBURIDE 5 mg tablet 0 11-17 00:00: 00 Yes [id number] 5mg Take 1 tablet by mouth daily with breakfast. [facility] fluticasone propionate (FLONASE ALLERGY RELIEF) 50 mcg/actuati on nasal spray 0 11-17 00:00: 00 Yes [id number] 1{spray } Use 1 [place] in each nostril in the morning and 1 [place] in the evening. [facility] glyBURIDE 5 mg tablet 0 11-17 00:00: 00 Yes [id number] 5mg Take 1 tablet by mouth daily with breakfast. [facility] fluticasone propionate (FLONASE ALLERGY RELIEF) 50 mcg/actuati on nasal spray 0 11-17 00:00: 00 Yes [id number] 1{spray } Use 1 [place] in each nostril in the morning and 1 [place] in the evening. [facility] glyBURIDE 5 mg tablet 2022-0 11-17 00:00: 00 Yes [id number] 5mg Take 1 tablet by mouth daily with breakfast. [facility] fluticasone propionate (FLONASE ALLERGY RELIEF) 50 mcg/actuati on nasal spray 0 11-17 00:00: 00 Yes [id number] 1{spray } Use 1 [place] in each nostril in the morning and 1 [place] in the evening. [facility] glyBURIDE 5 mg tablet 0 11-17 00:00: 00 Yes [id number] 5mg Take 1 tablet by mouth daily with breakfast. [facility] fluticasone propionate (FLONASE ALLERGY RELIEF) 50 mcg/actuati on nasal spray 0 11-17 00:00: 00 Yes [id number] 1{spray } Use 1 [place] in each nostril in the morning and 1 [place] in the evening. [facility] glyBURIDE 5 mg tablet 0 11-17 00:00: 00 Yes [id number] 5mg Take 1 tablet by mouth daily with breakfast. [facility] fluticasone propionate (FLONASE ALLERGY RELIEF) 50 mcg/actuati on nasal spray 0 11-17 00:00: 00 Yes [id number] 1{spray } Use 1 [place] in each nostril in the morning and 1 [place] in the evening. [facility] glyBURIDE 5 mg tablet 0 11-17 00:00: 00 Yes [id number] 5mg Take 1 tablet by mouth daily with breakfast. [facility] fluticasone propionate (FLONASE ALLERGY RELIEF) 50 mcg/actuati on nasal spray 0 11-17 00:00: 00 Yes [id number] 1{spray } Use 1 [place] in each nostril in the morning and 1 [place] in the evening. [facility] glyBURIDE 5 mg tablet 0 11-17 00:00: 00 Yes [id number] 5mg Take 1 tablet by mouth daily with breakfast. [facility] fluticasone propionate (FLONASE ALLERGY RELIEF) 50 mcg/actuati on nasal spray 0 11-17 00:00: 00 Yes [id number] 1{spray } Use 1 [place] in each nostril in the morning and 1 [place] in the evening. [facility] glyBURIDE 5 mg tablet 11-17 00:00: 00 Yes [id number] 5mg Take 1 tablet by mouth daily with breakfast. [facility] fluticasone propionate (FLONASE ALLERGY RELIEF) 50 mcg/actuati on nasal spray 11-17 00:00: 00 Yes [id number] 1{spray } Use 1 [place] in each nostril in the morning and 1 [place] in the evening. [facility] fluticasone propionate (FLONASE ALLERGY RELIEF) 50 mcg/actuati on nasal spray 11-17 00:00: 00 Yes [id number] 1{spray } Use 1 [place] in each nostril in the morning and 1 [place] in the evening. [facility] fluticasone propionate (FLONASE ALLERGY RELIEF) 50 mcg/actuati on nasal spray 11-17 00:00: 00 Yes [id number] 1{spray } Use 1 [place] in each nostril in the morning and 1 [place] in the evening. [facility] fluticasone propionate (FLONASE ALLERGY RELIEF) 50 mcg/actuati on nasal spray 11-17 00:00: 00 Yes [id number] 1{spray } Use 1 [place] in each nostril in the morning and 1 [place] in the evening. [facility] fluticasone propionate (FLONASE ALLERGY RELIEF) 50 mcg/actuati on nasal spray 11-17 00:00: 00 Yes [id number] 1{spray } Use 1 [place] in each nostril in the morning and 1 [place] in the evening. [facility] fluticasone propionate (FLONASE ALLERGY RELIEF) 50 mcg/actuati on nasal spray 11-17 00:00: 00 Yes [id number] 1{spray } Use 1 [place] in each nostril in the morning and 1 [place] in the evening. [facility] fluticasone propionate (FLONASE ALLERGY RELIEF) 50 mcg/actuati on nasal spray 11-17 00:00: 00 Yes [id number] 1{spray } Use 1 [place] in each nostril in the morning and 1 [place] in the evening. [facility] fluticasone propionate (FLONASE ALLERGY RELIEF) 50 mcg/actuati on nasal spray 11-17 00:00: 00 Yes [id number] 1{spray } Use 1 [place] in each nostril in the morning and 1 [place] in the evening. [facility] fluticasone propionate (FLONASE ALLERGY RELIEF) 50 mcg/actuati on nasal spray 11-17 00:00: 00 Yes [id number] 1{spray } Use 1 [place] in each nostril in the morning and 1 [place] in the evening. [facility] fluticasone propionate (FLONASE ALLERGY RELIEF) 50 mcg/actuati on nasal spray 11-17 00:00: 00 Yes [id number] 1{spray } Use 1 [place] in each nostril in the morning and 1 [place] in the evening. [facility] fluticasone propionate (FLONASE ALLERGY RELIEF) 50 mcg/actuati on nasal spray 11-17 00:00: 00 Yes [id number] 1{spray } Use 1 [place] in each nostril in the morning and 1 [place] in the evening. [facility] fluticasone propionate (FLONASE ALLERGY RELIEF) 50 mcg/actuati on nasal spray 11-17 00:00: 00 Yes [id number] 1{spray } Use 1 [place] in each nostril in the morning and 1 [place] in the evening. [facility] fluticasone propionate (FLONASE ALLERGY RELIEF) 50 mcg/actuati on nasal spray 11-17 00:00: 00 Yes [id number] 1{spray } Use 1 [place] in each nostril in the morning and 1 [place] in the evening. [facility] fluticasone propionate (FLONASE ALLERGY RELIEF) 50 mcg/actuati on nasal spray 11-17 00:00: 00 Yes [id number] 1{spray } Use 1 [place] in each nostril in the morning and 1 [place] in the evening. [facility] fluticasone propionate (FLONASE ALLERGY RELIEF) 50 mcg/actuati on nasal spray 11-17 00:00: 00 Yes [id number] 1{spray } Use 1 [place] in each nostril in the morning and 1 [place] in the evening. [facility] fluticasone propionate (FLONASE ALLERGY RELIEF) 50 mcg/actuati on nasal spray 11-17 00:00: 00 Yes [id number] 1{spray } Use 1 [place] in each nostril in the morning and 1 [place] in the evening. [facility] fluticasone propionate (FLONASE ALLERGY RELIEF) 50 mcg/actuati on nasal spray 11-17 00:00: 00 Yes [id number] 1{spray } Use 1 [place] in each nostril in the morning and 1 [place] in the evening. [facility] fluticasone propionate (FLONASE ALLERGY RELIEF) 50 mcg/actuati on nasal spray 11-17 00:00: 00 Yes [id number] 1{spray } Use 1 [place] in each nostril in the morning and 1 [place] in the evening. [facility] fluticasone propionate (FLONASE ALLERGY RELIEF) 50 mcg/actuati on nasal spray 11-17 00:00: 00 Yes [id number] 1{spray } Use 1 [place] in each nostril in the morning and 1 [place] in the evening. [facility] fluticasone propionate (FLONASE ALLERGY RELIEF) 50 mcg/actuati on nasal spray 11-17 00:00: 00 Yes [id number] 1{spray } Use 1 [place] in each nostril in the morning and 1 [place] in the evening. [facility] fluticasone propionate (FLONASE ALLERGY RELIEF) 50 mcg/actuati on nasal spray 11-17 00:00: 00 Yes [id number] 1{spray } Use 1 [place] in each nostril in the morning and 1 [place] in the evening. [facility] fluticasone propionate (FLONASE ALLERGY RELIEF) 50 mcg/actuati on nasal spray 11-17 00:00: 00 Yes [id number] 1{spray } Use 1 [place] in each nostril in the morning and 1 [place] in the evening. [facility] fluticasone propionate (FLONASE ALLERGY RELIEF) 50 mcg/actuati on nasal spray 11-17 00:00: 00 Yes [id number] 1{spray } Use 1 [place] in each nostril in the morning and 1 [place] in the evening. [facility] fluticasone propionate (FLONASE ALLERGY RELIEF) 50 mcg/actuati on nasal spray 11-17 00:00: 00 Yes [id number] 1{spray } Use 1 [place] in each nostril in the morning and 1 [place] in the evening. [facility] omega-3s-dh a-epa-fish oil-D3 (FISH OIL-VIT D3) 360 mg-1,200 mg -1,000 unit Cap 10-26 15:16: 05 Yes Take by mouth. [facility] MULTIVITS-M INERALS/FA/ LYCOPENE (ONE-A-DAY MEN'S MULTIVITAMI N ORAL) 10-26 15:16: 05 Yes Take by mouth. [facility] POTASSIUM-9 9 ORAL 10-26 15:16: 05 Yes 99mg Take 99 mg by mouth daily. [facility] omega-3s-dh a-epa-fish oil-D3 (FISH OIL-VIT D3) 360 mg-1,200 mg -1,000 unit Cap 10-26 15:16: 05 Yes Take by mouth. [facility] MULTIVITS-M INERALS/FA/ LYCOPENE (ONE-A-DAY MEN'S MULTIVITAMI N ORAL) 10-26 15:16: 05 Yes Take by mouth. [facility] POTASSIUM-9 9 ORAL 10-26 15:16: 05 Yes 99mg Take 99 mg by mouth daily. [facility] omega-3s-dh a-epa-fish oil-D3 (FISH OIL-VIT D3) 360 mg-1,200 mg -1,000 unit Cap 10-26 15:16: 05 Yes Take by mouth. [facility] MULTIVITS-M INERALS/FA/ LYCOPENE (ONE-A-DAY MEN'S MULTIVITAMI N ORAL) 10-26 15:16: 05 Yes Take by mouth. [facility] POTASSIUM-9 9 ORAL 10-26 15:16: 05 Yes 99mg Take 99 mg by mouth daily. [facility] omega-3s-dh a-epa-fish oil-D3 (FISH OIL-VIT D3) 360 mg-1,200 mg -1,000 unit Cap - 15:16: 05 Yes Take by mouth. [facility] MULTIVITS-M INERALS/FA/ LYCOPENE (ONE-A-DAY MEN'S MULTIVITAMI N ORAL) - 15:16: 05 Yes Take by mouth. [facility] POTASSIUM-9 9 ORAL 10-26 15:16: 05 Yes 99mg Take 99 mg by mouth daily. [facility] omega-3s-dh a-epa-fish oil-D3 (FISH OIL-VIT D3) 360 mg-1,200 mg -1,000 unit Cap 10-26 15:16: 05 Yes Take by mouth. [facility] MULTIVITS-M INERALS/FA/ LYCOPENE (ONE-A-DAY MEN'S MULTIVITAMI N ORAL) 10-26 15:16: 05 Yes Take by mouth. [facility] POTASSIUM-9 9 ORAL 10-26 15:16: 05 Yes 99mg Take 99 mg by mouth daily. [facility] omega-3s-dh a-epa-fish oil-D3 (FISH OIL-VIT D3) 360 mg-1,200 mg -1,000 unit Cap 10-26 15:16: 05 Yes Take by mouth. [facility] MULTIVITS-M INERALS/FA/ LYCOPENE (ONE-A-DAY MEN'S MULTIVITAMI N ORAL) 10-26 15:16: 05 Yes Take by mouth. [facility] POTASSIUM-9 9 ORAL 10-26 15:16: 05 Yes 99mg Take 99 mg by mouth daily. [facility] omega-3s-dh a-epa-fish oil-D3 (FISH OIL-VIT D3) 360 mg-1,200 mg -1,000 unit Cap -04 15:16: 05 Yes Take by mouth. [facility] MULTIVITS-M INERALS/FA/ LYCOPENE (ONE-A-DAY MEN'S MULTIVITAMI N ORAL) -04 15:16: 05 Yes Take by mouth. [facility] POTASSIUM-9 9 ORAL -04 15:16: 05 Yes 99mg Take 99 mg by mouth daily. [facility] omega-3s-dh a-epa-fish oil-D3 (FISH OIL-VIT D3) 360 mg-1,200 mg -1,000 unit Cap -04 15:16: 05 Yes Take by mouth. [facility] MULTIVITS-M INERALS/FA/ LYCOPENE (ONE-A-DAY MEN'S MULTIVITAMI N ORAL) 10-26 15:16: 05 Yes Take by mouth. [facility] POTASSIUM-9 9 ORAL 10-26 15:16: 05 Yes 99mg Take 99 mg by mouth daily. [facility] omega-3s-dh a-epa-fish oil-D3 (FISH OIL-VIT D3) 360 mg-1,200 mg -1,000 unit Cap 04 15:16: 05 Yes Take by mouth. [facility] MULTIVITS-M INERALS/FA/ LYCOPENE (ONE-A-DAY MEN'S MULTIVITAMI N ORAL) 10-26 15:16: 05 Yes Take by mouth. [facility] POTASSIUM-9 9 ORAL -04 15:16: 05 Yes 99mg Take 99 mg by mouth daily. [facility] omega-3s-dh a-epa-fish oil-D3 (FISH OIL-VIT D3) 360 mg-1,200 mg -1,000 unit Cap -04 15:16: 05 Yes Take by mouth. [facility] MULTIVITS-M INERALS/FA/ LYCOPENE (ONE-A-DAY MEN'S MULTIVITAMI N ORAL) -04 15:16: 05 Yes Take by mouth. [facility] POTASSIUM-9 9 ORAL -04 15:16: 05 Yes 99mg Take 99 mg by mouth daily. [facility] omega-3s-dh a-epa-fish oil-D3 (FISH OIL-VIT D3) 360 mg-1,200 mg -1,000 unit Cap 10-26 15:16: 05 Yes Take by mouth. [facility] MULTIVITS-M INERALS/FA/ LYCOPENE (ONE-A-DAY MEN'S MULTIVITAMI N ORAL) 10-26 15:16: 05 Yes Take by mouth. [facility] POTASSIUM-9 9 ORAL 10-26 15:16: 05 Yes 99mg Take 99 mg by mouth daily. [facility] omega-3s-dh a-epa-fish oil-D3 (FISH OIL-VIT D3) 360 mg-1,200 mg -1,000 unit Cap 10-26 15:16: 05 Yes Take by mouth. [facility] MULTIVITS-M INERALS/FA/ LYCOPENE (ONE-A-DAY MEN'S MULTIVITAMI N ORAL) 10-26 15:16: 05 Yes Take by mouth. [facility] POTASSIUM-9 9 ORAL 10-26 15:16: 05 Yes 99mg Take 99 mg by mouth daily. [facility] omega-3s-dh a-epa-fish oil-D3 (FISH OIL-VIT D3) 360 mg-1,200 mg -1,000 unit Cap 10-26 15:16: 05 Yes Take by mouth. [facility] MULTIVITS-M INERALS/FA/ LYCOPENE (ONE-A-DAY MEN'S MULTIVITAMI N ORAL) 10-26 15:16: 05 Yes Take by mouth. [facility] POTASSIUM-9 9 ORAL 10-26 15:16: 05 Yes 99mg Take 99 mg by mouth daily. [facility] omega-3s-dh a-epa-fish oil-D3 (FISH OIL-VIT D3) 360 mg-1,200 mg -1,000 unit Cap 10-26 15:16: 05 Yes Take by mouth. [facility] MULTIVITS-M INERALS/FA/ LYCOPENE (ONE-A-DAY MEN'S MULTIVITAMI N ORAL) -04 15:16: 05 Yes Take by mouth. [facility] POTASSIUM-9 9 ORAL 10-26 15:16: 05 Yes 99mg Take 99 mg by mouth daily. [facility] omega-3s-dh a-epa-fish oil-D3 (FISH OIL-VIT D3) 360 mg-1,200 mg -1,000 unit Cap -04 15:16: 05 Yes Take by mouth. [facility] MULTIVITS-M INERALS/FA/ LYCOPENE (ONE-A-DAY MEN'S MULTIVITAMI N ORAL) 10-26 15:16: 05 Yes Take by mouth. [facility] POTASSIUM-9 9 ORAL 10-26 15:16: 05 Yes 99mg Take 99 mg by mouth daily. [facility] omega-3s-dh a-epa-fish oil-D3 (FISH OIL-VIT D3) 360 mg-1,200 mg -1,000 unit Cap 04 15:16: 05 Yes Take by mouth. [facility] MULTIVITS-M INERALS/FA/ LYCOPENE (ONE-A-DAY MEN'S MULTIVITAMI N ORAL) 10-26 15:16: 05 Yes Take by mouth. [facility] POTASSIUM-9 9 ORAL -04 15:16: 05 Yes 99mg Take 99 mg by mouth daily. [facility] omega-3s-dh a-epa-fish oil-D3 (FISH OIL-VIT D3) 360 mg-1,200 mg -1,000 unit Cap -04 15:16: 05 Yes Take by mouth. [facility] MULTIVITS-M INERALS/FA/ LYCOPENE (ONE-A-DAY MEN'S MULTIVITAMI N ORAL) -04 15:16: 05 Yes Take by mouth. [facility] POTASSIUM-9 9 ORAL 4-04 15:16: 05 Yes 99mg Take 99 mg by mouth daily. [facility] omega-3s-dh a-epa-fish oil-D3 (FISH OIL-VIT D3) 360 mg-1,200 mg -1,000 unit Cap 10-26 15:16: 05 Yes Take by mouth. [facility] MULTIVITS-M INERALS/FA/ LYCOPENE (ONE-A-DAY MEN'S MULTIVITAMI N ORAL) 10-26 15:16: 05 Yes Take by mouth. [facility] POTASSIUM-9 9 ORAL 10-26 15:16: 05 Yes 99mg Take 99 mg by mouth daily. [facility] omega-3s-dh a-epa-fish oil-D3 (FISH OIL-VIT D3) 360 mg-1,200 mg -1,000 unit Cap 10-26 15:16: 05 Yes Take by mouth. [facility] MULTIVITS-M INERALS/FA/ LYCOPENE (ONE-A-DAY MEN'S MULTIVITAMI N ORAL) 10-26 15:16: 05 Yes Take by mouth. [facility] POTASSIUM-9 9 ORAL 10-26 15:16: 05 Yes 99mg Take 99 mg by mouth daily. [facility] omega-3s-dh a-epa-fish oil-D3 (FISH OIL-VIT D3) 360 mg-1,200 mg -1,000 unit Cap 10-26 15:16: 05 Yes Take by mouth. [facility] MULTIVITS-M INERALS/FA/ LYCOPENE (ONE-A-DAY MEN'S MULTIVITAMI N ORAL) 10-26 15:16: 05 Yes Take by mouth. [facility] POTASSIUM-9 9 ORAL 10-26 15:16: 05 Yes 99mg Take 99 mg by mouth daily. [facility] omega-3s-dh a-epa-fish oil-D3 (FISH OIL-VIT D3) 360 mg-1,200 mg -1,000 unit Cap 10-26 15:16: 05 Yes Take by mouth. [facility] MULTIVITS-M INERALS/FA/ LYCOPENE (ONE-A-DAY MEN'S MULTIVITAMI N ORAL) 10-26 15:16: 05 Yes Take by mouth. [facility] POTASSIUM-9 9 ORAL 10-26 15:16: 05 Yes 99mg Take 99 mg by mouth daily. [facility] omega-3s-dh a-epa-fish oil-D3 (FISH OIL-VIT D3) 360 mg-1,200 mg -1,000 unit Cap 10-26 15:16: 05 Yes Take by mouth. [facility] MULTIVITS-M INERALS/FA/ LYCOPENE (ONE-A-DAY MEN'S MULTIVITAMI N ORAL) 10-26 15:16: 05 Yes Take by mouth. [facility] POTASSIUM-9 9 ORAL 10-26 15:16: 05 Yes 99mg Take 99 mg by mouth daily. [facility] omega-3s-dh a-epa-fish oil-D3 (FISH OIL-VIT D3) 360 mg-1,200 mg -1,000 unit Cap 10-26 15:16: 05 Yes Take by mouth. [facility] MULTIVITS-M INERALS/FA/ LYCOPENE (ONE-A-DAY MEN'S MULTIVITAMI N ORAL) 10-26 15:16: 05 Yes Take by mouth. [facility] POTASSIUM-9 9 ORAL 10-26 15:16: 05 Yes 99mg Take 99 mg by mouth daily. [facility] omega-3s-dh a-epa-fish oil-D3 (FISH OIL-VIT D3) 360 mg-1,200 mg -1,000 unit Cap 10-26 15:16: 05 Yes Take by mouth. [facility] MULTIVITS-M INERALS/FA/ LYCOPENE (ONE-A-DAY MEN'S MULTIVITAMI N ORAL) 10-26 15:16: 05 Yes Take by mouth. [facility] POTASSIUM-9 9 ORAL 10-26 15:16: 05 Yes 99mg Take 99 mg by mouth daily. [facility] omega-3s-dh a-epa-fish oil-D3 (FISH OIL-VIT D3) 360 mg-1,200 mg -1,000 unit Cap 10-26 15:16: 05 Yes Take by mouth. [facility] MULTIVITS-M INERALS/FA/ LYCOPENE (ONE-A-DAY MEN'S MULTIVITAMI N ORAL) 10-26 15:16: 05 Yes Take by mouth. [facility] POTASSIUM-9 9 ORAL 10-26 15:16: 05 Yes 99mg Take 99 mg by mouth daily. [facility] omega-3s-dh a-epa-fish oil-D3 (FISH OIL-VIT D3) 360 mg-1,200 mg -1,000 unit Cap 10-26 15:16: 05 Yes Take by mouth. [facility] MULTIVITS-M INERALS/FA/ LYCOPENE (ONE-A-DAY MEN'S MULTIVITAMI N ORAL) 10-26 15:16: 05 Yes Take by mouth. [facility] POTASSIUM-9 9 ORAL 10-26 15:16: 05 Yes 99mg Take 99 mg by mouth daily. [facility] omega-3s-dh a-epa-fish oil-D3 (FISH OIL-VIT D3) 360 mg-1,200 mg -1,000 unit Cap 10-26 15:16: 05 Yes Take by mouth. [facility] MULTIVITS-M INERALS/FA/ LYCOPENE (ONE-A-DAY MEN'S MULTIVITAMI N ORAL) 10-26 15:16: 05 Yes Take by mouth. [facility] POTASSIUM-9 9 ORAL 10-26 15:16: 05 Yes 99mg Take 99 mg by mouth daily. [facility] pantoprazol e (PROTONIX) EC tablet 40 mg 10-26 14:00: 00 Yes 40mg 40 mg, Oral, DAILY, First dose on Tue10/26/22 at 0900, Until Discontinu ed, Routine [facility] pantoprazol e (PROTONIX) EC tablet 40 mg 2022-10-26 14:00: 00 Yes 40mg 40 mg, Oral, DAILY, First dose on Tue10/26/22 at 0900, Until Discontinu ed, [facility] lisinopriL (PRINIVIL,Z ESTRIL) tablet 40 mg 10-26 14:00: 00 Yes 40mg 40 mg, Oral, DAILY, First dose on Tue10/26/22 at 0900, Until Discontinu ed [facility] amLODIPine (NORVASC) tablet 10 mg 10-26 14:00: 00 Yes 10mg 10 mg, Oral, DAILY, First dose on Tue10/26/22 at 0900, Until Discontinu ed, Routine [facility] atorvastati n (LIPITOR) tablet 20 mg 10-26 02:00: 00 Yes 20mg 20 mg, Oral, QHS, First dose on Tue10/25/22 at 2100, Until Discontinu ed, Routine [facility] heparin (porcine) injection 5,000 Units 10-26 01:00: 00 Yes 5000U 5,000 Units, Subcutaneo us, Q12H, First dose on Tue10/25/22 at 2000, Until Discontinu ed, Routine [facility] risperiDONE (RISPERDAL) tablet 1 mg 10-26 01:00: 00 Yes 1mg 1 mg, Oral, BID, First dose on Tue10/25/22 at 2000, Until Discontinu ed, Routine [facility] divalproex 250 mg EC tablet 10-26 00:00: 00 01-25 04:59 :00 No [id number] 1750mg Take 7 tablets by mouth every 12 (twelve) hours for 90 days. [facility] divalproex 250 mg EC tablet 10-26 00:00: 00 01-25 04:59 :00 No [id number] 1750mg Take 7 tablets by mouth every 12 (twelve) hours for 90 days. [facility] divalproex 250 mg EC tablet 10-26 00:00: 00 01-25 04:59 :00 No [id number] 1750mg Take 7 tablets by mouth every 12 (twelve) hours for 90 days. [facility] divalproex 250 mg EC tablet 0 4-04 00:00: 00 01-25 04:59 :00 No [id number] 1750mg Take 7 tablets by mouth every 12 (twelve) hours for 90 days. [facility] divalproex 250 mg EC tablet 0 4-04 00:00: 00 01-25 04:59 :00 No [id number] 1750mg Take 7 tablets by mouth every 12 (twelve) hours for 90 days. [facility] divalproex 250 mg EC tablet 4- 00:00: 00 01-25 04:59 :00 No [id number] 1750mg Take 7 tablets by mouth every 12 (twelve) hours for 90 days. [facility] divalproex 250 mg EC tablet - 00:00: 00 01-25 04:59 :00 No [id number] 1750mg Take 7 tablets by mouth every 12 (twelve) hours for 90 days. [facility] divalproex 250 mg EC tablet 10-26 00:00: 00 01-25 04:59 :00 No [id number] 1750mg Take 7 tablets by mouth every 12 (twelve) hours for 90 days. [facility] divalproex 250 mg EC tablet 10-26 00:00: 00 01-25 04:59 :00 No [id number] 1750mg Take 7 tablets by mouth every 12 (twelve) hours for 90 days. [facility] divalproex 250 mg EC tablet 0 4-04 00:00: 00 01-25 04:59 :00 No [id number] 1750mg Take 7 tablets by mouth every 12 (twelve) hours for 90 days. [facility] divalproex 250 mg EC tablet 0 4-04 00:00: 00 01-25 04:59 :00 No [id number] 1750mg Take 7 tablets by mouth every 12 (twelve) hours for 90 days. [facility] divalproex 250 mg EC tablet 10-26 00:00: 00 01-25 04:59 :00 No [id number] 1750mg Take 7 tablets by mouth every 12 (twelve) hours for 90 days. [facility] divalproex 250 mg EC tablet 10-26 00:00: 00 01-25 04:59 :00 No [id number] 1750mg Take 7 tablets by mouth every 12 (twelve) hours for 90 days. [facility] divalproex 250 mg EC tablet 10-26 00:00: 00 01-25 04:59 :00 No [id number] 1750mg Take 7 tablets by mouth every 12 (twelve) hours for 90 days. [facility] divalproex 250 mg EC tablet 10-26 00:00: 00 01-25 04:59 :00 No [id number] 1750mg Take 7 tablets by mouth every 12 (twelve) hours for 90 days. [facility] divalproex 250 mg EC tablet 10-26 00:00: 00 01-25 04:59 :00 No [id number] 1750mg Take 7 tablets by mouth every 12 (twelve) hours for 90 days. [facility] divalproex 250 mg EC tablet 10-26 00:00: 00 01-25 04:59 :00 No [id number] 1750mg Take 7 tablets by mouth every 12 (twelve) hours for 90 days. [facility] divalproex 250 mg EC tablet 10-26 00:00: 00 01-25 04:59 :00 No [id number] 1750mg Take 7 tablets by mouth every 12 (twelve) hours for 90 days. [facility] divalproex 250 mg EC tablet 10-26 00:00: 00 01-25 04:59 :00 No [id number] 1750mg Take 7 tablets by mouth every 12 (twelve) hours for 90 days. [facility] divalproex 250 mg EC tablet 10-26 00:00: 00 01-25 04:59 :00 No [id number] 1750mg Take 7 tablets by mouth every 12 (twelve) hours for 90 days. [facility] divalproex 250 mg EC tablet 10-26 00:00: 00 01-25 04:59 :00 No [id number] 1750mg Take 7 tablets by mouth every 12 (twelve) hours for 90 days. [facility] divalproex 250 mg EC tablet 10-26 00:00: 00 01-25 04:59 :00 No [id number] 1750mg Take 7 tablets by mouth every 12 (twelve) hours for 90 days. [facility] divalproex 250 mg EC tablet 10-26 00:00: 00 01-25 04:59 :00 No [id number] 1750mg Take 7 tablets by mouth every 12 (twelve) hours for 90 days. [facility] divalproex 250 mg EC tablet 10-26 00:00: 00 01-25 04:59 :00 No [id number] 1750mg Take 7 tablets by mouth every 12 (twelve) hours for 90 days. [facility] divalproex 250 mg EC tablet 10-26 00:00: 00 01-25 04:59 :00 No [id number] 1750mg Take 7 tablets by mouth every 12 (twelve) hours for 90 days. [facility] divalproex 250 mg EC tablet 10-26 00:00: 00 01-25 04:59 :00 No [id number] 1750mg Take 7 tablets by mouth every 12 (twelve) hours for 90 days. [facility] divalproex 250 mg EC tablet 10-26 00:00: 00 01-25 04:59 :00 No [id number] 1750mg Take 7 tablets by mouth every 12 (twelve) hours for 90 days. [facility] carvediloL (COREG) tablet 25 mg 10-25 22:00: 00 Yes 25mg 25 mg, Oral, BID MEALS, First dose on Tue10/25/22 at 1700, Until Discontinu ed, Routine [facility] gabapentin (NEURONTIN) capsule 300 mg 10-25 19:00: 00 Yes 300mg 300 mg, Oral, TID, First dose on Tue10/25/22 at 1400, Until Discontinu ed, Routine [facility] Sliding Scale Insulin - Lispro (HumaLOG) + Fsbg Testing 10-25 17:00: 00 Yes Subcutaneo us, TID MEALS+HS, First dose on Tue10/25/22 at 1200, Until Discontinu ed, Routine [facility] hydrALAZINE (APRESOLINE ) tablet 25 mg 10-25 17:00: 00 Yes 25mg 25 mg, Oral, Q6H, First dose on Tue10/25/22 at 1200, Until Discontinu ed, Routine [facility] dextrose 10% (D10W) bolus infusion [...] blood glucose is < 80 mg/dL, repeat.
[facility] glucagon (GLUCAGEN DIAGNOSTIC KIT) injection 1 mg 10-25 15:51: 50 Yes 1mg 1 mg, Intramuscu lar, PRN, Starting on Tue10/25/22 at 1051, Until Discontinu ed, HENRY, Blood Glucose < or = 70 mg/dL and patient is NPO, unable to swallow or has mental changes. [facility] predniSONE (DELTASONE) tablet 5 mg 10-25 15:15: 00 Yes 5mg 5 mg, Oral, DAILY, First dose on Tue10/25/22 at 1015, Until Discontinu ed, Routine [facility] acetaminoph en (TYLENOL) tablet 650 mg 10-25 15:11: 20 Yes 650mg 650 mg, Oral, Q6HPRN, Starting on Tue10/25/22 at 1011, Until Discontinu ed, Routine, Pain (scale 4-6) [facility] docusate (COLACE) capsule 100 mg 10-25 15:11: 20 Yes 100mg 100 mg, Oral, QDAILYPRN, Starting on Tue10/25/22 at 1011, Until Discontinu ed, Routine, Constipati on [facility] hydrOXYzine (ATARAX) tablet 10 mg 10-25 15:10: 10 Yes 10mg 10 mg, Oral, Q6HPRN, Starting on Tue10/25/22 at 1010, Until Discontinu ed, Routine, Itching [facility] risperiDONE 1 mg tablet 08-17 00:00: 00 Yes [id number] 1mg Take 1 tablet by mouth in the morning and 1 tablet in the evening. [facility] pantoprazol e 40 mg EC tablet 08-17 00:00: 00 Yes [id number] 40mg Take 1 tablet by mouth in the morning. [facility] metFORMIN 1,000 mg tablet 08-17 00:00: 00 Yes [id number] 1000mg Take 1 tablet by mouth in the morning and 1 tablet in the evening. Take with meals. [facility] lisinopriL 40 mg tablet 08-17 00:00: 00 Yes [id number] 40mg Take 1 tablet by mouth in the morning. [facility] hydrOXYzine 10 mg tablet 08-17 00:00: 00 Yes [id number] 10mg Take 1 tablet by mouth every 6 (six) hours as needed for Itching. [facility] hydrALAZINE 25 mg tablet 08-17 00:00: 00 Yes [id number] 25mg Take 1 tablet by mouth every 6 (six) hours. [facility] gabapentin 300 mg capsule 08-17 00:00: 00 Yes [id number] 300mg Take 1 capsule by mouth in the morning and 1 capsule at noon and 1 capsule in the evening. [facility] ferrous sulfate 325 mg (65 mg iron) tablet 08-17 00:00: 00 Yes [id number] 325mg Take 1 tablet by mouth every other day. [facility] divalproex 500 mg EC tablet 08-17 00:00: 00 Yes [id number] 1500mg Take 3 tablets by mouth every 12 (twelve) hours. [facility] diphenhydrA MINE 25 mg tablet 08-17 00:00: 00 Yes [id number] 25mg Take 1 tablet by mouth as needed for Allergies (Before infusion). [facility] carvediloL (COREG) 25 mg tablet 08-17 00:00: 00 Yes [id number] 25mg Take 1 tablet by mouth in the morning and 1 tablet in the evening. Take with meals. [facility] atorvastati n 20 mg tablet 08-17 00:00: 00 Yes [id number] 20mg Take 1 tablet by mouth at bedtime. [facility] amLODIPine 10 mg tablet 08-17 00:00: 00 Yes [id number] 10mg Take 1 tablet by mouth in the morning. [facility] risperiDONE 1 mg tablet 08-17 00:00: 00 Yes [id number] 1mg Take 1 tablet by mouth in the morning and 1 tablet in the evening. [facility] pantoprazol e 40 mg EC tablet 08-17 00:00: 00 Yes [id number] 40mg Take 1 tablet by mouth in the morning. [facility] lisinopriL 40 mg tablet 08-17 00:00: 00 Yes [id number] 40mg Take 1 tablet by mouth in the morning. [facility] hydrOXYzine 10 mg tablet 08-17 00:00: 00 Yes [id number] 10mg Take 1 tablet by mouth every 6 (six) hours as needed for Itching. [facility] divalproex 500 mg EC tablet 08-17 00:00: 00 Yes [id number] 1500mg Take 3 tablets by mouth every 12 (twelve) hours. [facility] amLODIPine 10 mg tablet 08-17 00:00: 00 Yes [id number] 10mg Take 1 tablet by mouth in the morning. [facility] atorvastati n 20 mg tablet 08-17 00:00: 00 Yes [id number] 20mg Take 1 tablet by mouth at bedtime. [facility] carvediloL (COREG) 25 mg tablet 08-17 00:00: 00 Yes [id number] 25mg Take 1 tablet by mouth in the morning and 1 tablet in the evening. Take with meals. [facility] diphenhydrA MINE 25 mg tablet 08-17 00:00: 00 Yes [id number] 25mg Take 1 tablet by mouth as needed for Allergies (Before infusion). [facility] ferrous sulfate 325 mg (65 mg iron) tablet 08-17 00:00: 00 Yes [id number] 325mg Take 1 tablet by mouth every other day. [facility] gabapentin 300 mg capsule 08-17 00:00: 00 Yes [id number] 300mg Take 1 capsule by mouth in the morning and 1 capsule at noon and 1 capsule in the evening. [facility] hydrALAZINE 25 mg tablet 08-17 00:00: 00 Yes [id number] 25mg Take 1 tablet by mouth every 6 (six) hours. [facility] metFORMIN 1,000 mg tablet 08-17 00:00: 00 Yes [id number] 1000mg Take 1 tablet by mouth in the morning and 1 tablet in the evening. Take with meals. [facility] risperiDONE 1 mg tablet 08-17 00:00: 00 Yes [id number] 1mg Take 1 tablet by mouth in the morning and 1 tablet in the evening. [facility] pantoprazol e 40 mg EC tablet 08-17 00:00: 00 Yes [id number] 40mg Take 1 tablet by mouth in the morning. [facility] lisinopriL 40 mg tablet 08-17 00:00: 00 Yes [id number] 40mg Take 1 tablet by mouth in the morning. [facility] hydrOXYzine 10 mg tablet 08-17 00:00: 00 Yes [id number] 10mg Take 1 tablet by mouth every 6 (six) hours as needed for Itching. [facility] divalproex 500 mg EC tablet 08-17 00:00: 00 Yes [id number] 1500mg Take 3 tablets by mouth every 12 (twelve) hours. [facility] amLODIPine 10 mg tablet 08-17 00:00: 00 Yes [id number] 10mg Take 1 tablet by mouth in the morning. [facility] atorvastati n 20 mg tablet 08-17 00:00: 00 Yes [id number] 20mg Take 1 tablet by mouth at bedtime. [facility] carvediloL (COREG) 25 mg tablet 08-17 00:00: 00 Yes [id number] 25mg Take 1 tablet by mouth in the morning and 1 tablet in the evening. Take with meals. [facility] diphenhydrA MINE 25 mg tablet 08-17 00:00: 00 Yes [id number] 25mg Take 1 tablet by mouth as needed for Allergies (Before infusion). [facility] ferrous sulfate 325 mg (65 mg iron) tablet 08-17 00:00: 00 Yes [id number] 325mg Take 1 tablet by mouth every other day. [facility] gabapentin 300 mg capsule 08-17 00:00: 00 Yes [id number] 300mg Take 1 capsule by mouth in the morning and 1 capsule at noon and 1 capsule in the evening. [facility] hydrALAZINE 25 mg tablet 08-17 00:00: 00 Yes [id number] 25mg Take 1 tablet by mouth every 6 (six) hours. [facility] metFORMIN 1,000 mg tablet 08-17 00:00: 00 Yes [id number] 1000mg Take 1 tablet by mouth in the morning and 1 tablet in the evening. Take with meals. [facility] risperiDONE 1 mg tablet 08-17 00:00: 00 Yes [id number] 1mg Take 1 tablet by mouth in the morning and 1 tablet in the evening. [facility] pantoprazol e 40 mg EC tablet 08-17 00:00: 00 Yes [id number] 40mg Take 1 tablet by mouth in the morning. [facility] lisinopriL 40 mg tablet 08-17 00:00: 00 Yes [id number] 40mg Take 1 tablet by mouth in the morning. [facility] hydrOXYzine 10 mg tablet 08-17 00:00: 00 Yes [id number] 10mg Take 1 tablet by mouth every 6 (six) hours as needed for Itching. [facility] amLODIPine 10 mg tablet 08-17 00:00: 00 Yes [id number] 10mg Take 1 tablet by mouth in the morning. [facility] atorvastati n 20 mg tablet 08-17 00:00: 00 Yes [id number] 20mg Take 1 tablet by mouth at bedtime. [facility] carvediloL (COREG) 25 mg tablet 08-17 00:00: 00 Yes [id number] 25mg Take 1 tablet by mouth in the morning and 1 tablet in the evening. Take with meals. [facility] diphenhydrA MINE 25 mg tablet 08-17 00:00: 00 Yes [id number] 25mg Take 1 tablet by mouth as needed for Allergies (Before infusion). [facility] ferrous sulfate 325 mg (65 mg iron) tablet 08-17 00:00: 00 Yes [id number] 325mg Take 1 tablet by mouth every other day. [facility] gabapentin 300 mg capsule 08-17 00:00: 00 Yes [id number] 300mg Take 1 capsule by mouth in the morning and 1 capsule at noon and 1 capsule in the evening. [facility] hydrALAZINE 25 mg tablet 08-17 00:00: 00 Yes [id number] 25mg Take 1 tablet by mouth every 6 (six) hours. [facility] metFORMIN 1,000 mg tablet 08-17 00:00: 00 Yes [id number] 1000mg Take 1 tablet by mouth in the morning and 1 tablet in the evening. Take with meals. [facility] risperiDONE 1 mg tablet 08-17 00:00: 00 Yes [id number] 1mg Take 1 tablet by mouth in the morning and 1 tablet in the evening. [facility] pantoprazol e 40 mg EC tablet 08-17 00:00: 00 Yes [id number] 40mg Take 1 tablet by mouth in the morning. [facility] lisinopriL 40 mg tablet 08-17 00:00: 00 Yes [id number] 40mg Take 1 tablet by mouth in the morning. [facility] hydrOXYzine 10 mg tablet 08-17 00:00: 00 Yes [id number] 10mg Take 1 tablet by mouth every 6 (six) hours as needed for Itching. [facility] amLODIPine 10 mg tablet 08-17 00:00: 00 Yes [id number] 10mg Take 1 tablet by mouth in the morning. [facility] atorvastati n 20 mg tablet 08-17 00:00: 00 Yes [id number] 20mg Take 1 tablet by mouth at bedtime. [facility] carvediloL (COREG) 25 mg tablet 08-17 00:00: 00 Yes [id number] 25mg Take 1 tablet by mouth in the morning and 1 tablet in the evening. Take with meals. [facility] diphenhydrA MINE 25 mg tablet 08-17 00:00: 00 Yes [id number] 25mg Take 1 tablet by mouth as needed for Allergies (Before infusion). [facility] ferrous sulfate 325 mg (65 mg iron) tablet 08-17 00:00: 00 Yes [id number] 325mg Take 1 tablet by mouth every other day. [facility] gabapentin 300 mg capsule 08-17 00:00: 00 Yes [id number] 300mg Take 1 capsule by mouth in the morning and 1 capsule at noon and 1 capsule in the evening. [facility] hydrALAZINE 25 mg tablet 08-17 00:00: 00 Yes [id number] 25mg Take 1 tablet by mouth every 6 (six) hours. [facility] metFORMIN 1,000 mg tablet 08-17 00:00: 00 Yes [id number] 1000mg Take 1 tablet by mouth in the morning and 1 tablet in the evening. Take with meals. [facility] risperiDONE 1 mg tablet 08-17 00:00: 00 Yes [id number] 1mg Take 1 tablet by mouth in the morning and 1 tablet in the evening. [facility] pantoprazol e 40 mg EC tablet 08-17 00:00: 00 Yes [id number] 40mg Take 1 tablet by mouth in the morning. [facility] lisinopriL 40 mg tablet 08-17 00:00: 00 Yes [id number] 40mg Take 1 tablet by mouth in the morning. [facility] hydrOXYzine 10 mg tablet 08-17 00:00: 00 Yes [id number] 10mg Take 1 tablet by mouth every 6 (six) hours as needed for Itching. [facility] amLODIPine 10 mg tablet 08-17 00:00: 00 Yes [id number] 10mg Take 1 tablet by mouth in the morning. [facility] atorvastati n 20 mg tablet 08-17 00:00: 00 Yes [id number] 20mg Take 1 tablet by mouth at bedtime. [facility] carvediloL (COREG) 25 mg tablet 08-17 00:00: 00 Yes [id number] 25mg Take 1 tablet by mouth in the morning and 1 tablet in the evening. Take with meals. [facility] diphenhydrA MINE 25 mg tablet 08-17 00:00: 00 Yes [id number] 25mg Take 1 tablet by mouth as needed for Allergies (Before infusion). [facility] ferrous sulfate 325 mg (65 mg iron) tablet 08-17 00:00: 00 Yes [id number] 325mg Take 1 tablet by mouth every other day. [facility] gabapentin 300 mg capsule 08-17 00:00: 00 Yes [id number] 300mg Take 1 capsule by mouth in the morning and 1 capsule at noon and 1 capsule in the evening. [facility] hydrALAZINE 25 mg tablet 08-17 00:00: 00 Yes [id number] 25mg Take 1 tablet by mouth every 6 (six) hours. [facility] metFORMIN 1,000 mg tablet 08-17 00:00: 00 Yes [id number] 1000mg Take 1 tablet by mouth in the morning and 1 tablet in the evening. Take with meals. [facility] risperiDONE 1 mg tablet 08-17 00:00: 00 Yes [id number] 1mg Take 1 tablet by mouth in the morning and 1 tablet in the evening. [facility] pantoprazol e 40 mg EC tablet 08-17 00:00: 00 Yes [id number] 40mg Take 1 tablet by mouth in the morning. [facility] lisinopriL 40 mg tablet 08-17 00:00: 00 Yes [id number] 40mg Take 1 tablet by mouth in the morning. [facility] hydrOXYzine 10 mg tablet 08-17 00:00: 00 Yes [id number] 10mg Take 1 tablet by mouth every 6 (six) hours as needed for Itching. [facility] amLODIPine 10 mg tablet 08-17 00:00: 00 Yes [id number] 10mg Take 1 tablet by mouth in the morning. [facility] atorvastati n 20 mg tablet 08-17 00:00: 00 Yes [id number] 20mg Take 1 tablet by mouth at bedtime. [facility] carvediloL (COREG) 25 mg tablet 08-17 00:00: 00 Yes [id number] 25mg Take 1 tablet by mouth in the morning and 1 tablet in the evening. Take with meals. [facility] diphenhydrA MINE 25 mg tablet 08-17 00:00: 00 Yes [id number] 25mg Take 1 tablet by mouth as needed for Allergies (Before infusion). [facility] ferrous sulfate 325 mg (65 mg iron) tablet 08-17 00:00: 00 Yes [id number] 325mg Take 1 tablet by mouth every other day. [facility] gabapentin 300 mg capsule 08-17 00:00: 00 Yes [id number] 300mg Take 1 capsule by mouth in the morning and 1 capsule at noon and 1 capsule in the evening. [facility] hydrALAZINE 25 mg tablet 08-17 00:00: 00 Yes [id number] 25mg Take 1 tablet by mouth every 6 (six) hours. [facility] metFORMIN 1,000 mg tablet 08-17 00:00: 00 Yes [id number] 1000mg Take 1 tablet by mouth in the morning and 1 tablet in the evening. Take with meals. [facility] risperiDONE 1 mg tablet 08-17 00:00: 00 Yes [id number] 1mg Take 1 tablet by mouth in the morning and 1 tablet in the evening. [facility] pantoprazol e 40 mg EC tablet 08-17 00:00: 00 Yes [id number] 40mg Take 1 tablet by mouth in the morning. [facility] lisinopriL 40 mg tablet 08-17 00:00: 00 Yes [id number] 40mg Take 1 tablet by mouth in the morning. [facility] hydrOXYzine 10 mg tablet 08-17 00:00: 00 Yes [id number] 10mg Take 1 tablet by mouth every 6 (six) hours as needed for Itching. [facility] amLODIPine 10 mg tablet 08-17 00:00: 00 Yes [id number] 10mg Take 1 tablet by mouth in the morning. [facility] atorvastati n 20 mg tablet 08-17 00:00: 00 Yes [id number] 20mg Take 1 tablet by mouth at bedtime. [facility] carvediloL (COREG) 25 mg tablet 08-17 00:00: 00 Yes [id number] 25mg Take 1 tablet by mouth in the morning and 1 tablet in the evening. Take with meals. [facility] diphenhydrA MINE 25 mg tablet 08-17 00:00: 00 Yes [id number] 25mg Take 1 tablet by mouth as needed for Allergies (Before infusion). [facility] ferrous sulfate 325 mg (65 mg iron) tablet 08-17 00:00: 00 Yes [id number] 325mg Take 1 tablet by mouth every other day. [facility] gabapentin 300 mg capsule 08-17 00:00: 00 Yes [id number] 300mg Take 1 capsule by mouth in the morning and 1 capsule at noon and 1 capsule in the evening. [facility] hydrALAZINE 25 mg tablet 08-17 00:00: 00 Yes [id number] 25mg Take 1 tablet by mouth every 6 (six) hours. [facility] metFORMIN 1,000 mg tablet 08-17 00:00: 00 Yes [id number] 1000mg Take 1 tablet by mouth in the morning and 1 tablet in the evening. Take with meals. [facility] risperiDONE 1 mg tablet 08-17 00:00: 00 Yes [id number] 1mg Take 1 tablet by mouth in the morning and 1 tablet in the evening. [facility] pantoprazol e 40 mg EC tablet 08-17 00:00: 00 Yes [id number] 40mg Take 1 tablet by mouth in the morning. [facility] lisinopriL 40 mg tablet 08-17 00:00: 00 Yes [id number] 40mg Take 1 tablet by mouth in the morning. [facility] hydrOXYzine 10 mg tablet 08-17 00:00: 00 Yes [id number] 10mg Take 1 tablet by mouth every 6 (six) hours as needed for Itching. [facility] [facility] am[facility] 08-17 00:00: 00 Yes [id number] 10mg Take 1 tablet by mouth in the morning. [facility] atorvastati n 20 mg tablet 08-17 00:00: 00 Yes [id number] 20mg Take 1 tablet by mouth at bedtime. [facility] carvediloL (COREG) 25 mg tablet 08-17 00:00: 00 Yes [id number] 25mg Take 1 tablet by mouth in the morning and 1 tablet in the evening. Take with meals. [facility] diphenhydrA MINE 25 mg tablet 08-17 00:00: 00 Yes [id number] 25mg Take 1 tablet by mouth as needed for Allergies (Before infusion). [facility] ferrous sulfate 325 mg (65 mg iron) tablet 08-17 00:00: 00 Yes [id number] 325mg Take 1 tablet by mouth every other day. [facility] gabapentin 300 mg capsule 08-17 00:00: 00 Yes [id number] 300mg Take 1 capsule by mouth in the morning and 1 capsule at noon and 1 capsule in the evening. [facility] hydrALAZINE 25 mg tablet 08-17 00:00: 00 Yes [id number] 25mg Take 1 tablet by mouth every 6 (six) hours. [facility] metFORMIN 1,000 mg tablet 08-17 00:00: 00 Yes [id number] 1000mg Take 1 tablet by mouth in the morning and 1 tablet in the evening. Take with meals. [facility] risperiDONE 1 mg tablet 08-17 00:00: 00 Yes [id number] 1mg Take 1 tablet by mouth in the morning and 1 tablet in the evening. [facility] pantoprazol e 40 mg EC tablet 08-17 00:00: 00 Yes [id number] 40mg Take 1 tablet by mouth in the morning. [facility] lisinopriL 40 mg tablet 08-17 00:00: 00 Yes [id number] 40mg Take 1 tablet by mouth in the morning. [facility] hydrOXYzine 10 mg tablet 08-17 00:00: 00 Yes [id number] 10mg Take 1 tablet by mouth every 6 (six) hours as needed for Itching. [facility] amLODIPine 10 mg tablet 08-17 00:00: 00 Yes [id number] 10mg Take 1 tablet by mouth in the morning. [facility] atorvastati n 20 mg tablet 08-17 00:00: 00 Yes [id number] 20mg Take 1 tablet by mouth at bedtime. [facility] carvediloL (COREG) 25 mg tablet 08-17 00:00: 00 Yes [id number] 25mg Take 1 tablet by mouth in the morning and 1 tablet in the evening. Take with meals. [facility] diphenhydrA MINE 25 mg tablet 08-17 00:00: 00 Yes [id number] 25mg Take 1 tablet by mouth as needed for Allergies (Before infusion). [facility] ferrous sulfate 325 mg (65 mg iron) tablet 08-17 00:00: 00 Yes [id number] 325mg Take 1 tablet by mouth every other day. [facility] gabapentin 300 mg capsule 08-17 00:00: 00 Yes [id number] 300mg Take 1 capsule by mouth in the morning and 1 capsule at noon and 1 capsule in the evening. [facility] hydrALAZINE 25 mg tablet 08-17 00:00: 00 Yes [id number] 25mg Take 1 tablet by mouth every 6 (six) hours. [facility] metFORMIN 1,000 mg tablet 08-17 00:00: 00 Yes [id number] 1000mg Take 1 tablet by mouth in the morning and 1 tablet in the evening. Take with meals. [facility] risperiDONE 1 mg tablet 08-17 00:00: 00 Yes [id number] 1mg Take 1 tablet by mouth in the morning and 1 tablet in the evening. [facility] pantoprazol e 40 mg EC tablet 08-17 00:00: 00 Yes [id number] 40mg Take 1 tablet by mouth in the morning. [facility] lisinopriL 40 mg tablet 08-17 00:00: 00 Yes [id number] 40mg Take 1 tablet by mouth in the morning. [facility] hydrOXYzine 10 mg tablet 08-17 00:00: 00 Yes [id number] 10mg Take 1 tablet by mouth every 6 (six) hours as needed for Itching. [facility] amLODIPine 10 mg tablet 08-17 00:00: 00 Yes [id number] 10mg Take 1 tablet by mouth in the morning. [facility] atorvastati n 20 mg tablet 08-17 00:00: 00 Yes [id number] 20mg Take 1 tablet by mouth at bedtime. [facility] carvediloL (COREG) 25 mg tablet 08-17 00:00: 00 Yes [id number] 25mg Take 1 tablet by mouth in the morning and 1 tablet in the evening. Take with meals. [facility] diphenhydrA MINE 25 mg tablet 08-17 00:00: 00 Yes [id number] 25mg Take 1 tablet by mouth as needed for Allergies (Before infusion). [facility] ferrous sulfate 325 mg (65 mg iron) tablet 08-17 00:00: 00 Yes [id number] 325mg Take 1 tablet by mouth every other day. [facility] gabapentin 300 mg capsule 08-17 00:00: 00 Yes [id number] 300mg Take 1 capsule by mouth in the morning and 1 capsule at noon and 1 capsule in the evening. [facility] hydrALAZINE 25 mg tablet 08-17 00:00: 00 Yes [id number] 25mg Take 1 tablet by mouth every 6 (six) hours. [facility] metFORMIN 1,000 mg tablet 08-17 00:00: 00 Yes [id number] 1000mg Take 1 tablet by mouth in the morning and 1 tablet in the evening. Take with meals. [facility] risperiDONE 1 mg tablet 08-17 00:00: 00 Yes [id number] 1mg Take 1 tablet by mouth in the morning and 1 tablet in the evening. [facility] pantoprazol e 40 mg EC tablet 08-17 00:00: 00 Yes [id number] 40mg Take 1 tablet by mouth in the morning. [facility] lisinopriL 40 mg tablet 08-17 00:00: 00 Yes [id number] 40mg Take 1 tablet by mouth in the morning. [facility] hydrOXYzine 10 mg tablet 08-17 00:00: 00 Yes [id number] 10mg Take 1 tablet by mouth every 6 (six) hours as needed for Itching. [facility] amLODIPine 10 mg tablet 08-17 00:00: 00 Yes [id number] 10mg Take 1 tablet by mouth in the morning. [facility] atorvastati n 20 mg tablet 08-17 00:00: 00 Yes [id number] 20mg Take 1 tablet by mouth at bedtime. [facility] carvediloL (COREG) 25 mg tablet 08-17 00:00: 00 Yes [id number] 25mg Take 1 tablet by mouth in the morning and 1 tablet in the evening. Take with meals. [facility] diphenhydrA MINE 25 mg tablet 08-17 00:00: 00 Yes [id number] 25mg Take 1 tablet by mouth as needed for Allergies (Before infusion). [facility] ferrous sulfate 325 mg (65 mg iron) tablet 08-17 00:00: 00 Yes [id number] 325mg Take 1 tablet by mouth every other day. [facility] gabapentin 300 mg capsule 08-17 00:00: 00 Yes [id number] 300mg Take 1 capsule by mouth in the morning and 1 capsule at noon and 1 capsule in the evening. [facility] hydrALAZINE 25 mg tablet 08-17 00:00: 00 Yes [id number] 25mg Take 1 tablet by mouth every 6 (six) hours. [facility] metFORMIN 1,000 mg tablet 08-17 00:00: 00 Yes [id number] 1000mg Take 1 tablet by mouth in the morning and 1 tablet in the evening. Take with meals. [facility] risperiDONE 1 mg tablet 08-17 00:00: 00 Yes [id number] 1mg Take 1 tablet by mouth in the morning and 1 tablet in the evening. [facility] pantoprazol e 40 mg EC tablet 08-17 00:00: 00 Yes [id number] 40mg Take 1 tablet by mouth in the morning. [facility] lisinopriL 40 mg tablet 08-17 00:00: 00 Yes [id number] 40mg Take 1 tablet by mouth in the morning. [facility] hydrOXYzine 10 mg tablet 08-17 00:00: 00 Yes [id number] 10mg Take 1 tablet by mouth every 6 (six) hours as needed for Itching. [facility] amLODIPine 10 mg tablet 08-17 00:00: 00 Yes [id number] 10mg Take 1 tablet by mouth in the morning. [facility] atorvastati n 20 mg tablet 08-17 00:00: 00 Yes [id number] 20mg Take 1 tablet by mouth at bedtime. [facility] carvediloL (COREG) 25 mg tablet 08-17 00:00: 00 Yes [id number] 25mg Take 1 tablet by mouth in the morning and 1 tablet in the evening. Take with meals. [facility] diphenhydrA MINE 25 mg tablet 08-17 00:00: 00 Yes [id number] 25mg Take 1 tablet by mouth as needed for Allergies (Before infusion). [facility] ferrous sulfate 325 mg (65 mg iron) tablet 08-17 00:00: 00 Yes [id number] 325mg Take 1 tablet by mouth every other day. [facility] gabapentin 300 mg capsule 08-17 00:00: 00 Yes [id number] 300mg Take 1 capsule by mouth in the morning and 1 capsule at noon and 1 capsule in the evening. [facility] hydrALAZINE 25 mg tablet 08-17 00:00: 00 Yes [id number] 25mg Take 1 tablet by mouth every 6 (six) hours. [facility] metFORMIN 1,000 mg tablet 08-17 00:00: 00 Yes [id number] 1000mg Take 1 tablet by mouth in the morning and 1 tablet in the evening. Take with meals. [facility] risperiDONE 1 mg tablet 08-17 00:00: 00 Yes [id number] 1mg Take 1 tablet by mouth in the morning and 1 tablet in the evening. [facility] pantoprazol e 40 mg EC tablet 08-17 00:00: 00 Yes [id number] 40mg Take 1 tablet by mouth in the morning. [facility] lisinopriL 40 mg tablet 08-17 00:00: 00 Yes [id number] 40mg Take 1 tablet by mouth in the morning. [facility] hydrOXYzine 10 mg tablet 08-17 00:00: 00 Yes [id number] 10mg Take 1 tablet by mouth every 6 (six) hours as needed for Itching. [facility] amLODIPine 10 mg tablet 08-17 00:00: 00 Yes [id number] 10mg Take 1 tablet by mouth in the morning. [facility] atorvastati n 20 mg tablet 08-17 00:00: 00 Yes [id number] 20mg Take 1 tablet by mouth at bedtime. [facility] carvediloL (COREG) 25 mg tablet 08-17 00:00: 00 Yes [id number] 25mg Take 1 tablet by mouth in the morning and 1 tablet in the evening. Take with meals. [facility] diphenhydrA MINE 25 mg tablet 08-17 00:00: 00 Yes [id number] 25mg Take 1 tablet by mouth as needed for Allergies (Before infusion). [facility] ferrous sulfate 325 mg (65 mg iron) tablet 08-17 00:00: 00 Yes [id number] 325mg Take 1 tablet by mouth every other day. [facility] gabapentin 300 mg capsule 08-17 00:00: 00 Yes [id number] 300mg Take 1 capsule by mouth in the morning and 1 capsule at noon and 1 capsule in the evening. [facility] hydrALAZINE 25 mg tablet 08-17 00:00: 00 Yes [id number] 25mg Take 1 tablet by mouth every 6 (six) hours. [facility] metFORMIN 1,000 mg tablet 08-17 00:00: 00 Yes [id number] 1000mg Take 1 tablet by mouth in the morning and 1 tablet in the evening. Take with meals. [facility] risperiDONE 1 mg tablet 08-17 00:00: 00 Yes [id number] 1mg Take 1 tablet by mouth in the morning and 1 tablet in the evening. [facility] pantoprazol e 40 mg EC tablet 08-17 00:00: 00 Yes [id number] 40mg Take 1 tablet by mouth in the morning. [facility] lisinopriL 40 mg tablet 08-17 00:00: 00 Yes [id number] 40mg Take 1 tablet by mouth in the morning. [facility] hydrOXYzine 10 mg tablet 08-17 00:00: 00 Yes [id number] 10mg Take 1 tablet by mouth every 6 (six) hours as needed for Itching. [facility] amLODIPine 10 mg tablet 08-17 00:00: 00 Yes [id number] 10mg Take 1 tablet by mouth in the morning. [facility] atorvastati n 20 mg tablet 08-17 00:00: 00 Yes [id number] 20mg Take 1 tablet by mouth at bedtime. [facility] carvediloL (COREG) 25 mg tablet 08-17 00:00: 00 Yes [id number] 25mg Take 1 tablet by mouth in the morning and 1 tablet in the evening. Take with meals. [facility] diphenhydrA MINE 25 mg tablet 08-17 00:00: 00 Yes [id number] 25mg Take 1 tablet by mouth as needed for Allergies (Before infusion). [facility] ferrous sulfate 325 mg (65 mg iron) tablet 08-17 00:00: 00 Yes [id number] 325mg Take 1 tablet by mouth every other day. [facility] gabapentin 300 mg capsule 08-17 00:00: 00 Yes [id number] 300mg Take 1 capsule by mouth in the morning and 1 capsule at noon and 1 capsule in the evening. [facility] hydrALAZINE 25 mg tablet 08-17 00:00: 00 Yes [id number] 25mg Take 1 tablet by mouth every 6 (six) hours. [facility] metFORMIN 1,000 mg tablet 08-17 00:00: 00 Yes [id number] 1000mg Take 1 tablet by mouth in the morning and 1 tablet in the evening. Take with meals. [facility] risperiDONE 1 mg tablet 08-17 00:00: 00 Yes [id number] 1mg Take 1 tablet by mouth in the morning and 1 tablet in the evening. [facility] pantoprazol e 40 mg EC tablet 08-17 00:00: 00 Yes [id number] 40mg Take 1 tablet by mouth in the morning. [facility] lisinopriL 40 mg tablet 08-17 00:00: 00 Yes [id number] 40mg Take 1 tablet by mouth in the morning. [facility] hydrOXYzine 10 mg tablet 08-17 00:00: 00 Yes [id number] 10mg Take 1 tablet by mouth every 6 (six) hours as needed for Itching. [facility] amLODIPine 10 mg tablet 08-17 00:00: 00 Yes [id number] 10mg Take 1 tablet by mouth in the morning. [facility] atorvastati n 20 mg tablet 08-17 00:00: 00 Yes [id number] 20mg Take 1 tablet by mouth at bedtime. [facility] carvediloL (COREG) 25 mg tablet 08-17 00:00: 00 Yes [id number] 25mg Take 1 tablet by mouth in the morning and 1 tablet in the evening. Take with meals. [facility] diphenhydrA MINE 25 mg tablet 08-17 00:00: 00 Yes [id number] 25mg Take 1 tablet by mouth as needed for Allergies (Before infusion). [facility] ferrous sulfate 325 mg (65 mg iron) tablet 08-17 00:00: 00 Yes [id number] 325mg Take 1 tablet by mouth every other day. [facility] gabapentin 300 mg capsule 08-17 00:00: 00 Yes [id number] 300mg Take 1 capsule by mouth in the morning and 1 capsule at noon and 1 capsule in the evening. [facility] hydrALAZINE 25 mg tablet 08-17 00:00: 00 Yes [id number] 25mg Take 1 tablet by mouth every 6 (six) hours. [facility] metFORMIN 1,000 mg tablet 08-17 00:00: 00 Yes [id number] 1000mg Take 1 tablet by mouth in the morning and 1 tablet in the evening. Take with meals. [facility] risperiDONE 1 mg tablet 08-17 00:00: 00 Yes [id number] 1mg Take 1 tablet by mouth in the morning and 1 tablet in the evening. [facility] pantoprazol e 40 mg EC tablet 08-17 00:00: 00 Yes [id number] 40mg Take 1 tablet by mouth in the morning. [facility] lisinopriL 40 mg tablet 08-17 00:00: 00 Yes [id number] 40mg Take 1 tablet by mouth in the morning. [facility] hydrOXYzine 10 mg tablet 08-17 00:00: 00 Yes [id number] 10mg Take 1 tablet by mouth every 6 (six) hours as needed for Itching. [facility] amLODIPine 10 mg tablet 08-17 00:00: 00 Yes [id number] 10mg Take 1 tablet by mouth in the morning. [facility] atorvastati n 20 mg tablet 08-17 00:00: 00 Yes [id number] 20mg Take 1 tablet by mouth at bedtime. [facility] carvediloL (COREG) 25 mg tablet 08-17 00:00: 00 Yes [id number] 25mg Take 1 tablet by mouth in the morning and 1 tablet in the evening. Take with meals. [facility] diphenhydrA MINE 25 mg tablet 08-17 00:00: 00 Yes [id number] 25mg Take 1 tablet by mouth as needed for Allergies (Before infusion). [facility] ferrous sulfate 325 mg (65 mg iron) tablet 08-17 00:00: 00 Yes [id number] 325mg Take 1 tablet by mouth every other day. [facility] gabapentin 300 mg capsule 08-17 00:00: 00 Yes [id number] 300mg Take 1 capsule by mouth in the morning and 1 capsule at noon and 1 capsule in the evening. [facility] hydrALAZINE 25 mg tablet 08-17 00:00: 00 Yes [id number] 25mg Take 1 tablet by mouth every 6 (six) hours. [facility] metFORMIN 1,000 mg tablet 08-17 00:00: 00 Yes [id number] 1000mg Take 1 tablet by mouth in the morning and 1 tablet in the evening. Take with meals. [facility] risperiDONE 1 mg tablet 08-17 00:00: 00 Yes [id number] 1mg Take 1 tablet by mouth in the morning and 1 tablet in the evening. [facility] pantoprazol e 40 mg EC tablet 08-17 00:00: 00 Yes [id number] 40mg Take 1 tablet by mouth in the morning. [facility] lisinopriL 40 mg tablet 08-17 00:00: 00 Yes [id number] 40mg Take 1 tablet by mouth in the morning. [facility] hydrOXYzine 10 mg tablet 08-17 00:00: 00 Yes [id number] 10mg Take 1 tablet by mouth every 6 (six) hours as needed for Itching. [facility] amLODIPine 10 mg tablet 08-17 00:00: 00 Yes [id number] 10mg Take 1 tablet by mouth in the morning. [facility] atorvastati n 20 mg tablet 08-17 00:00: 00 Yes [id number] 20mg Take 1 tablet by mouth at bedtime. [facility] carvediloL (COREG) 25 mg tablet 08-17 00:00: 00 Yes [id number] 25mg Take 1 tablet by mouth in the morning and 1 tablet in the evening. Take with meals. [facility] diphenhydrA MINE 25 mg tablet 08-17 00:00: 00 Yes [id number] 25mg Take 1 tablet by mouth as needed for Allergies (Before infusion). [facility] ferrous sulfate 325 mg (65 mg iron) tablet 08-17 00:00: 00 Yes [id number] 325mg Take 1 tablet by mouth every other day. [facility] gabapentin 300 mg capsule 08-17 00:00: 00 Yes [id number] 300mg Take 1 capsule by mouth in the morning and 1 capsule at noon and 1 capsule in the evening. [facility] hydrALAZINE 25 mg tablet 08-17 00:00: 00 Yes [id number] 25mg Take 1 tablet by mouth every 6 (six) hours. [facility] metFORMIN 1,000 mg tablet 08-17 00:00: 00 Yes [id number] 1000mg Take 1 tablet by mouth in the morning and 1 tablet in the evening. Take with meals. [facility] risperiDONE 1 mg tablet 08-17 00:00: 00 Yes [id number] 1mg Take 1 tablet by mouth in the morning and 1 tablet in the evening. [facility] pantoprazol e 40 mg EC tablet 08-17 00:00: 00 Yes [id number] 40mg Take 1 tablet by mouth in the morning. [facility] lisinopriL 40 mg tablet 08-17 00:00: 00 Yes [id number] 40mg Take 1 tablet by mouth in the morning. [facility] hydrOXYzine 10 mg tablet 08-17 00:00: 00 Yes [id number] 10mg Take 1 tablet by mouth every 6 (six) hours as needed for Itching. [facility] amLODIPine 10 mg tablet 08-17 00:00: 00 Yes [id number] 10mg Take 1 tablet by mouth in the morning. [facility] atorvastati n 20 mg tablet 08-17 00:00: 00 Yes [id number] 20mg Take 1 tablet by mouth at bedtime. [facility] carvediloL (COREG) 25 mg tablet 08-17 00:00: 00 Yes [id number] 25mg Take 1 tablet by mouth in the morning and 1 tablet in the evening. Take with meals. [facility] diphenhydrA MINE 25 mg tablet 08-17 00:00: 00 Yes [id number] 25mg Take 1 tablet by mouth as needed for Allergies (Before infusion). [facility] ferrous sulfate 325 mg (65 mg iron) tablet 08-17 00:00: 00 Yes [id number] 325mg Take 1 tablet by mouth every other day. [facility] gabapentin 300 mg capsule 08-17 00:00: 00 Yes [id number] 300mg Take 1 capsule by mouth in the morning and 1 capsule at noon and 1 capsule in the evening. [facility] hydrALAZINE 25 mg tablet 08-17 00:00: 00 Yes [id number] 25mg Take 1 tablet by mouth every 6 (six) hours. [facility] metFORMIN 1,000 mg tablet 08-17 00:00: 00 Yes [id number] 1000mg Take 1 tablet by mouth in the morning and 1 tablet in the evening. Take with meals. [facility] risperiDONE 1 mg tablet 08-17 00:00: 00 Yes [id number] 1mg Take 1 tablet by mouth in the morning and 1 tablet in the evening. [facility] pantoprazol e 40 mg EC tablet 08-17 00:00: 00 Yes [id number] 40mg Take 1 tablet by mouth in the morning. [facility] lisinopriL 40 mg tablet 08-17 00:00: 00 Yes [id number] 40mg Take 1 tablet by mouth in the morning. [facility] hydrOXYzine 10 mg tablet 08-17 00:00: 00 Yes [id number] 10mg Take 1 tablet by mouth every 6 (six) hours as needed for Itching. [facility] amLODIPine 10 mg tablet 08-17 00:00: 00 Yes [id number] 10mg Take 1 tablet by mouth in the morning. [facility] atorvastati n 20 mg tablet 08-17 00:00: 00 Yes [id number] 20mg Take 1 tablet by mouth at bedtime. [facility] carvediloL (COREG) 25 mg tablet 08-17 00:00: 00 Yes [id number] 25mg Take 1 tablet by mouth in the morning and 1 tablet in the evening. Take with meals. [facility] diphenhydrA MINE 25 mg tablet 08-17 00:00: 00 Yes [id number] 25mg Take 1 tablet by mouth as needed for Allergies (Before infusion). [facility] ferrous sulfate 325 mg (65 mg iron) tablet 08-17 00:00: 00 Yes [id number] 325mg Take 1 tablet by mouth every other day. [facility] gabapentin 300 mg capsule 08-17 00:00: 00 Yes [id number] 300mg Take 1 capsule by mouth in the morning and 1 capsule at noon and 1 capsule in the evening. [facility] hydrALAZINE 25 mg tablet 08-17 00:00: 00 Yes [id number] 25mg Take 1 tablet by mouth every 6 (six) hours. [facility] metFORMIN 1,000 mg tablet 08-17 00:00: 00 Yes [id number] 1000mg Take 1 tablet by mouth in the morning and 1 tablet in the evening. Take with meals. [facility] risperiDONE 1 mg tablet 08-17 00:00: 00 Yes [id number] 1mg Take 1 tablet by mouth in the morning and 1 tablet in the evening. [facility] pantoprazol e 40 mg EC tablet 08-17 00:00: 00 Yes [id number] 40mg Take 1 tablet by mouth in the morning. [facility] lisinopriL 40 mg tablet 08-17 00:00: 00 Yes [id number] 40mg Take 1 tablet by mouth in the morning. [facility] hydrOXYzine 10 mg tablet 08-17 00:00: 00 Yes [id number] 10mg Take 1 tablet by mouth every 6 (six) hours as needed for Itching. [facility] amLODIPine 10 mg tablet 08-17 00:00: 00 Yes [id number] 10mg Take 1 tablet by mouth in the morning. [facility] atorvastati n 20 mg tablet 08-17 00:00: 00 Yes [id number] 20mg Take 1 tablet by mouth at bedtime. [facility] carvediloL (COREG) 25 mg tablet 08-17 00:00: 00 Yes [id number] 25mg Take 1 tablet by mouth in the morning and 1 tablet in the evening. Take with meals. [facility] diphenhydrA MINE 25 mg tablet 08-17 00:00: 00 Yes [id number] 25mg Take 1 tablet by mouth as needed for Allergies (Before infusion). [facility] ferrous sulfate 325 mg (65 mg iron) tablet 08-17 00:00: 00 Yes [id number] 325mg Take 1 tablet by mouth every other day. [facility] gabapentin 300 mg capsule 08-17 00:00: 00 Yes [id number] 300mg Take 1 capsule by mouth in the morning and 1 capsule at noon and 1 capsule in the evening. [facility] hydrALAZINE 25 mg tablet 08-17 00:00: 00 Yes [id number] 25mg Take 1 tablet by mouth every 6 (six) hours. [facility] metFORMIN 1,000 mg tablet 08-17 00:00: 00 Yes [id number] 1000mg Take 1 tablet by mouth in the morning and 1 tablet in the evening. Take with meals. [facility] risperiDONE 1 mg tablet 08-17 00:00: 00 Yes [id number] 1mg Take 1 tablet by mouth in the morning and 1 tablet in the evening. [facility] pantoprazol e 40 mg EC tablet 08-17 00:00: 00 Yes [id number] 40mg Take 1 tablet by mouth in the morning. [facility] lisinopriL 40 mg tablet 08-17 00:00: 00 Yes [id number] 40mg Take 1 tablet by mouth in the morning. [facility] hydrOXYzine 10 mg tablet 08-17 00:00: 00 Yes [id number] 10mg Take 1 tablet by mouth every 6 (six) hours as needed for Itching. [facility] amLODIPine 10 mg tablet 08-17 00:00: 00 Yes [id number] 10mg Take 1 tablet by mouth in the morning. [facility] atorvastati n 20 mg tablet 08-17 00:00: 00 Yes [id number] 20mg Take 1 tablet by mouth at bedtime. [facility] carvediloL (COREG) 25 mg tablet 08-17 00:00: 00 Yes [id number] 25mg Take 1 tablet by mouth in the morning and 1 tablet in the evening. Take with meals. [facility] diphenhydrA MINE 25 mg tablet 08-17 00:00: 00 Yes [id number] 25mg Take 1 tablet by mouth as needed for Allergies (Before infusion). [facility] ferrous sulfate 325 mg (65 mg iron) tablet 08-17 00:00: 00 Yes [id number] 325mg Take 1 tablet by mouth every other day. [facility] gabapentin 300 mg capsule 08-17 00:00: 00 Yes [id number] 300mg Take 1 capsule by mouth in the morning and 1 capsule at noon and 1 capsule in the evening. [facility] hydrALAZINE 25 mg tablet 08-17 00:00: 00 Yes [id number] 25mg Take 1 tablet by mouth every 6 (six) hours. [facility] metFORMIN 1,000 mg tablet 08-17 00:00: 00 Yes [id number] 1000mg Take 1 tablet by mouth in the morning and 1 tablet in the evening. Take with meals. [facility] risperiDONE 1 mg tablet 08-17 00:00: 00 Yes [id number] 1mg Take 1 tablet by mouth in the morning and 1 tablet in the evening. [facility] pantoprazol e 40 mg EC tablet 08-17 00:00: 00 Yes [id number] 40mg Take 1 tablet by mouth in the morning. [facility] lisinopriL 40 mg tablet 08-17 00:00: 00 Yes [id number] 40mg Take 1 tablet by mouth in the morning. [facility] hydrOXYzine 10 mg tablet 08-17 00:00: 00 Yes [id number] 10mg Take 1 tablet by mouth every 6 (six) hours as needed for Itching. [facility] amLODIPine 10 mg tablet 08-17 00:00: 00 Yes [id number] 10mg Take 1 tablet by mouth in the morning. [facility] atorvastati n 20 mg tablet 08-17 00:00: 00 Yes [id number] 20mg Take 1 tablet by mouth at bedtime. [facility] carvediloL (COREG) 25 mg tablet 08-17 00:00: 00 Yes [id number] 25mg Take 1 tablet by mouth in the morning and 1 tablet in the evening. Take with meals. [facility] diphenhydrA MINE 25 mg tablet 08-17 00:00: 00 Yes [id number] 25mg Take 1 tablet by mouth as needed for Allergies (Before infusion). [facility] ferrous sulfate 325 mg (65 mg iron) tablet 08-17 00:00: 00 Yes [id number] 325mg Take 1 tablet by mouth every other day. [facility] gabapentin 300 mg capsule 08-17 00:00: 00 Yes [id number] 300mg Take 1 capsule by mouth in the morning and 1 capsule at noon and 1 capsule in the evening. [facility] hydrALAZINE 25 mg tablet 08-17 00:00: 00 Yes [id number] 25mg Take 1 tablet by mouth every 6 (six) hours. [facility] metFORMIN 1,000 mg tablet 08-17 00:00: 00 Yes [id number] 1000mg Take 1 tablet by mouth in the morning and 1 tablet in the evening. Take with meals. [facility] risperiDONE 1 mg tablet 08-17 00:00: 00 Yes [id number] 1mg Take 1 tablet by mouth in the morning and 1 tablet in the evening. [facility] pantoprazol e 40 mg EC tablet 08-17 00:00: 00 Yes [id number] 40mg Take 1 tablet by mouth in the morning. [facility] lisinopriL 40 mg tablet 08-17 00:00: 00 Yes [id number] 40mg Take 1 tablet by mouth in the morning. [facility] hydrOXYzine 10 mg tablet 08-17 00:00: 00 Yes [id number] 10mg Take 1 tablet by mouth every 6 (six) hours as needed for Itching. [facility] amLODIPine 10 mg tablet 08-17 00:00: 00 Yes [id number] 10mg Take 1 tablet by mouth in the morning. [facility] atorvastati n 20 mg tablet 08-17 00:00: 00 Yes [id number] 20mg Take 1 tablet by mouth at bedtime. [facility] carvediloL (COREG) 25 mg tablet 08-17 00:00: 00 Yes [id number] 25mg Take 1 tablet by mouth in the morning and 1 tablet in the evening. Take with meals. [facility] diphenhydrA MINE 25 mg tablet 08-17 00:00: 00 Yes [id number] 25mg Take 1 tablet by mouth as needed for Allergies (Before infusion). [facility] ferrous sulfate 325 mg (65 mg iron) tablet 08-17 00:00: 00 Yes [id number] 325mg Take 1 tablet by mouth every other day. [facility] gabapentin 300 mg capsule 08-17 00:00: 00 Yes [id number] 300mg Take 1 capsule by mouth in the morning and 1 capsule at noon and 1 capsule in the evening. [facility] hydrALAZINE 25 mg tablet 08-17 00:00: 00 Yes [id number] 25mg Take 1 tablet by mouth every 6 (six) hours. [facility] metFORMIN 1,000 mg tablet 08-17 00:00: 00 Yes [id number] 1000mg Take 1 tablet by mouth in the morning and 1 tablet in the evening. Take with meals. [facility] risperiDONE 1 mg tablet 08-17 00:00: 00 Yes [id number] 1mg Take 1 tablet by mouth in the morning and 1 tablet in the evening. [facility] pantoprazol e 40 mg EC tablet 08-17 00:00: 00 Yes [id number] 40mg Take 1 tablet by mouth in the morning. [facility] lisinopriL 40 mg tablet 08-17 00:00: 00 Yes [id number] 40mg Take 1 tablet by mouth in the morning. [facility] hydrOXYzine 10 mg tablet 08-17 00:00: 00 Yes [id number] 10mg Take 1 tablet by mouth every 6 (six) hours as needed for Itching. [facility] amLODIPine 10 mg tablet 08-17 00:00: 00 Yes [id number] 10mg Take 1 tablet by mouth in the morning. [facility] atorvastati n 20 mg tablet 08-17 00:00: 00 Yes [id number] 20mg Take 1 tablet by mouth at bedtime. [facility] carvediloL (COREG) 25 mg tablet 08-17 00:00: 00 Yes [id number] 25mg Take 1 tablet by mouth in the morning and 1 tablet in the evening. Take with meals. [facility] diphenhydrA MINE 25 mg tablet 08-17 00:00: 00 Yes [id number] 25mg Take 1 tablet by mouth as needed for Allergies (Before infusion). [facility] ferrous sulfate 325 mg (65 mg iron) tablet 08-17 00:00: 00 Yes [id number] 325mg Take 1 tablet by mouth every other day. [facility] gabapentin 300 mg capsule 08-17 00:00: 00 Yes [id number] 300mg Take 1 capsule by mouth in the morning and 1 capsule at noon and 1 capsule in the evening. [facility] hydrALAZINE 25 mg tablet 08-17 00:00: 00 Yes [id number] 25mg Take 1 tablet by mouth every 6 (six) hours. [facility] metFORMIN 1,000 mg tablet 08-17 00:00: 00 Yes [id number] 1000mg Take 1 tablet by mouth in the morning and 1 tablet in the evening. Take with meals. [facility] risperiDONE 1 mg tablet 08-17 00:00: 00 Yes [id number] 1mg Take 1 tablet by mouth in the morning and 1 tablet in the evening. [facility] pantoprazol e 40 mg EC tablet 08-17 00:00: 00 Yes [id number] 40mg Take 1 tablet by mouth in the morning. [facility] lisinopriL 40 mg tablet 08-17 00:00: 00 Yes [id number] 40mg Take 1 tablet by mouth in the morning. [facility] hydrOXYzine 10 mg tablet 08-17 00:00: 00 Yes [id number] 10mg Take 1 tablet by mouth every 6 (six) hours as needed for Itching. [facility] amLODIPine 10 mg tablet 08-17 00:00: 00 Yes [id number] 10mg Take 1 tablet by mouth in the morning. [facility] atorvastati n 20 mg tablet 08-17 00:00: 00 Yes [id number] 20mg Take 1 tablet by mouth at bedtime. [facility] carvediloL (COREG) 25 mg tablet 08-17 00:00: 00 Yes [id number] 25mg Take 1 tablet by mouth in the morning and 1 tablet in the evening. Take with meals. [facility] diphenhydrA MINE 25 mg tablet 08-17 00:00: 00 Yes [id number] 25mg Take 1 tablet by mouth as needed for Allergies (Before infusion). [facility] ferrous sulfate 325 mg (65 mg iron) tablet 08-17 00:00: 00 Yes [id number] 325mg Take 1 tablet by mouth every other day. [facility] gabapentin 300 mg capsule 08-17 00:00: 00 Yes [id number] 300mg Take 1 capsule by mouth in the morning and 1 capsule at noon and 1 capsule in the evening. [facility] hydrALAZINE 25 mg tablet 08-17 00:00: 00 Yes [id number] 25mg Take 1 tablet by mouth every 6 (six) hours. [facility] metFORMIN 1,000 mg tablet 08-17 00:00: 00 Yes [id number] 1000mg Take 1 tablet by mouth in the morning and 1 tablet in the evening. Take with meals. [facility] risperiDONE 1 mg tablet 08-17 00:00: 00 Yes [id number] 1mg Take 1 tablet by mouth in the morning and 1 tablet in the evening. [facility] pantoprazol e 40 mg EC tablet 08-17 00:00: 00 Yes [id number] 40mg Take 1 tablet by mouth in the morning. [facility] lisinopriL 40 mg tablet 08-17 00:00: 00 Yes [id number] 40mg Take 1 tablet by mouth in the morning. [facility] hydrOXYzine 10 mg tablet 08-17 00:00: 00 Yes [id number] 10mg Take 1 tablet by mouth every 6 (six) hours as needed for Itching. [facility] amLODIPine 10 mg tablet 08-17 00:00: 00 Yes [id number] 10mg Take 1 tablet by mouth in the morning. [facility] atorvastati n 20 mg tablet 08-17 00:00: 00 Yes [id number] 20mg Take 1 tablet by mouth at bedtime. [facility] carvediloL (COREG) 25 mg tablet 08-17 00:00: 00 Yes [id number] 25mg Take 1 tablet by mouth in the morning and 1 tablet in the evening. Take with meals. [facility] diphenhydrA MINE 25 mg tablet 08-17 00:00: 00 Yes [id number] 25mg Take 1 tablet by mouth as needed for Allergies (Before infusion). [facility] ferrous sulfate 325 mg (65 mg iron) tablet 08-17 00:00: 00 Yes [id number] 325mg Take 1 tablet by mouth every other day. [facility] gabapentin 300 mg capsule 08-17 00:00: 00 Yes [id number] 300mg Take 1 capsule by mouth in the morning and 1 capsule at noon and 1 capsule in the evening. [facility] hydrALAZINE 25 mg tablet 08-17 00:00: 00 Yes [id number] 25mg Take 1 tablet by mouth every 6 (six) hours. [facility] metFORMIN 1,000 mg tablet 08-17 00:00: 00 Yes [id number] 1000mg Take 1 tablet by mouth in the morning and 1 tablet in the evening. Take with meals. [facility] risperiDONE 1 mg tablet 08-17 00:00: 00 Yes [id number] 1mg Take 1 tablet by mouth in the morning and 1 tablet in the evening. [facility] pantoprazol e 40 mg EC tablet 08-17 00:00: 00 Yes [id number] 40mg Take 1 tablet by mouth in the morning. [facility] lisinopriL 40 mg tablet 08-17 00:00: 00 Yes [id number] 40mg Take 1 tablet by mouth in the morning. [facility] hydrOXYzine 10 mg tablet 08-17 00:00: 00 Yes [id number] 10mg Take 1 tablet by mouth every 6 (six) hours as needed for Itching. [facility] amLODIPine 10 mg tablet 08-17 00:00: 00 Yes [id number] 10mg Take 1 tablet by mouth in the morning. [facility] atorvastati n 20 mg tablet 08-17 00:00: 00 Yes [id number] 20mg Take 1 tablet by mouth at bedtime. [facility] carvediloL (COREG) 25 mg tablet 08-17 00:00: 00 Yes [id number] 25mg Take 1 tablet by mouth in the morning and 1 tablet in the evening. Take with meals. [facility] diphenhydrA MINE 25 mg tablet 08-17 00:00: 00 Yes [id number] 25mg Take 1 tablet by mouth as needed for Allergies (Before infusion). [facility] ferrous sulfate 325 mg (65 mg iron) tablet 08-17 00:00: 00 Yes [id number] 325mg Take 1 tablet by mouth every other day. [facility] gabapentin 300 mg capsule 08-17 00:00: 00 Yes [id number] 300mg Take 1 capsule by mouth in the morning and 1 capsule at noon and 1 capsule in the evening. [facility] hydrALAZINE 25 mg tablet 08-17 00:00: 00 Yes [id number] 25mg Take 1 tablet by mouth every 6 (six) hours. [facility] metFORMIN 1,000 mg tablet 08-17 00:00: 00 Yes [id number] 1000mg Take 1 tablet by mouth in the morning and 1 tablet in the evening. Take with meals. [facility] risperiDONE 1 mg tablet 08-17 00:00: 00 Yes [id number] 1mg Take 1 tablet by mouth in the morning and 1 tablet in the evening. [facility] pantoprazol e 40 mg EC tablet 08-17 00:00: 00 Yes [id number] 40mg Take 1 tablet by mouth in the morning. [facility] lisinopriL 40 mg tablet 08-17 00:00: 00 Yes [id number] 40mg Take 1 tablet by mouth in the morning. [facility] hydrOXYzine 10 mg tablet 08-17 00:00: 00 Yes [id number] 10mg Take 1 tablet by mouth every 6 (six) hours as needed for Itching. [facility] amLODIPine 10 mg tablet 08-17 00:00: 00 Yes [id number] 10mg Take 1 tablet by mouth in the morning. [facility] atorvastati n 20 mg tablet 08-17 00:00: 00 Yes [id number] 20mg Take 1 tablet by mouth at bedtime. [facility] carvediloL (COREG) 25 mg tablet 08-17 00:00: 00 Yes [id number] 25mg Take 1 tablet by mouth in the morning and 1 tablet in the evening. Take with meals. [facility] diphenhydrA MINE 25 mg tablet 08-17 00:00: 00 Yes [id number] 25mg Take 1 tablet by mouth as needed for Allergies (Before infusion). [facility] ferrous sulfate 325 mg (65 mg iron) tablet 08-17 00:00: 00 Yes [id number] 325mg Take 1 tablet by mouth every other day. [facility] gabapentin 300 mg capsule 08-17 00:00: 00 Yes [id number] 300mg Take 1 capsule by mouth in the morning and 1 capsule at noon and 1 capsule in the evening. [facility] hydrALAZINE 25 mg tablet 08-17 00:00: 00 Yes [id number] 25mg Take 1 tablet by mouth every 6 (six) hours. [facility] metFORMIN 1,000 mg tablet 08-17 00:00: 00 Yes [id number] 1000mg Take 1 tablet by mouth in the morning and 1 tablet in the evening. Take with meals. [facility] risperiDONE 1 mg tablet 08-17 00:00: 00 Yes [id number] 1mg Take 1 tablet by mouth in the morning and 1 tablet in the evening. [facility] pantoprazol e 40 mg EC tablet 08-17 00:00: 00 Yes [id number] 40mg Take 1 tablet by mouth in the morning. [facility] lisinopriL 40 mg tablet 08-17 00:00: 00 Yes [id number] 40mg Take 1 tablet by mouth in the morning. [facility] hydrOXYzine 10 mg tablet 08-17 00:00: 00 Yes [id number] 10mg Take 1 tablet by mouth every 6 (six) hours as needed for Itching. [facility] amLODIPine 10 mg tablet 08-17 00:00: 00 Yes [id number] 10mg Take 1 tablet by mouth in the morning. [facility] atorvastati n 20 mg tablet 08-17 00:00: 00 Yes [id number] 20mg Take 1 tablet by mouth at bedtime. [facility] carvediloL (COREG) 25 mg tablet 08-17 00:00: 00 Yes [id number] 25mg Take 1 tablet by mouth in the morning and 1 tablet in the evening. Take with meals. [facility] diphenhydrA MINE 25 mg tablet 08-17 00:00: 00 Yes [id number] 25mg Take 1 tablet by mouth as needed for Allergies (Before infusion). [facility] ferrous sulfate 325 mg (65 mg iron) tablet 08-17 00:00: 00 Yes [id number] 325mg Take 1 tablet by mouth every other day. [facility] gabapentin 300 mg capsule 08-17 00:00: 00 Yes [id number] 300mg Take 1 capsule by mouth in the morning and 1 capsule at noon and 1 capsule in the evening. [facility] hydrALAZINE 25 mg tablet 08-17 00:00: 00 Yes [id number] 25mg Take 1 tablet by mouth every 6 (six) hours. [facility] metFORMIN 1,000 mg tablet 08-17 00:00: 00 Yes [id number] 1000mg Take 1 tablet by mouth in the morning and 1 tablet in the evening. Take with meals. [facility] risperiDONE 1 mg tablet 08-17 00:00: 00 Yes [id number] 1mg Take 1 tablet by mouth in the morning and 1 tablet in the evening. [facility] pantoprazol e 40 mg EC tablet 08-17 00:00: 00 Yes [id number] 40mg Take 1 tablet by mouth in the morning. [facility] hydrOXYzine 10 mg tablet 08-17 00:00: 00 Yes [id number] 10mg Take 1 tablet by mouth every 6 (six) hours as needed for Itching. [facility] amLODIPine 10 mg tablet 08-17 00:00: 00 Yes [id number] 10mg Take 1 tablet by mouth in the morning. [facility] carvediloL (COREG) 25 mg tablet 08-17 00:00: 00 Yes [id number] 25mg Take 1 tablet by mouth in the morning and 1 tablet in the evening. Take with meals. [facility] diphenhydrA MINE 25 mg tablet 08-17 00:00: 00 Yes [id number] 25mg Take 1 tablet by mouth as needed for Allergies (Before infusion). [facility] ferrous sulfate 325 mg (65 mg iron) tablet 08-17 00:00: 00 Yes [id number] 325mg Take 1 tablet by mouth every other day. [facility] risperiDONE 1 mg tablet 08-17 00:00: 00 Yes [id number] 1mg Take 1 tablet by mouth in the morning and 1 tablet in the evening. [facility] pantoprazol e 40 mg EC tablet 08-17 00:00: 00 Yes [id number] 40mg Take 1 tablet by mouth in the morning. [facility] hydrOXYzine 10 mg tablet 08-17 00:00: 00 Yes [id number] 10mg Take 1 tablet by mouth every 6 (six) hours as needed for Itching. [facility] amLODIPine 10 mg tablet 08-17 00:00: 00 Yes [id number] 10mg Take 1 tablet by mouth in the morning. [facility] carvediloL (COREG) 25 mg tablet 08-17 00:00: 00 Yes [id number] 25mg Take 1 tablet by mouth in the morning and 1 tablet in the evening. Take with meals. [facility] diphenhydrA MINE 25 mg tablet 08-17 00:00: 00 Yes [id number] 25mg Take 1 tablet by mouth as needed for Allergies (Before infusion). [facility] ferrous sulfate 325 mg (65 mg iron) tablet 08-17 00:00: 00 Yes [id number] 325mg Take 1 tablet by mouth every other day. [facility] risperiDONE 1 mg tablet 08-17 00:00: 00 Yes [id number] 1mg Take 1 tablet by mouth in the morning and 1 tablet in the evening. [facility] pantoprazol e 40 mg EC tablet 08-17 00:00: 00 Yes [id number] 40mg Take 1 tablet by mouth in the morning. [facility] hydrOXYzine 10 mg tablet 08-17 00:00: 00 Yes [id number] 10mg Take 1 tablet by mouth every 6 (six) hours as needed for Itching. [facility] amLODIPine 10 mg tablet 08-17 00:00: 00 Yes [id number] 10mg Take 1 tablet by mouth in the morning. [facility] carvediloL (COREG) 25 mg tablet 08-17 00:00: 00 Yes [id number] 25mg Take 1 tablet by mouth in the morning and 1 tablet in the evening. Take with meals. [facility] diphenhydrA MINE 25 mg tablet 08-17 00:00: 00 Yes [id number] 25mg Take 1 tablet by mouth as needed for Allergies (Before infusion). [facility] ferrous sulfate 325 mg (65 mg iron) tablet 08-17 00:00: 00 Yes [id number] 325mg Take 1 tablet by mouth every other day. [facility] risperiDONE 1 mg tablet 08-17 00:00: 00 Yes [id number] 1mg Take 1 tablet by mouth in the morning and 1 tablet in the evening. [facility] pantoprazol e 40 mg EC tablet 08-17 00:00: 00 Yes [id number] 40mg Take 1 tablet by mouth in the morning. [facility] hydrOXYzine 10 mg tablet 08-17 00:00: 00 Yes [id number] 10mg Take 1 tablet by mouth every 6 (six) hours as needed for Itching. [facility] amLODIPine 10 mg tablet 08-17 00:00: 00 Yes [id number] 10mg Take 1 tablet by mouth in the morning. [facility] carvediloL (COREG) 25 mg tablet 08-17 00:00: 00 Yes [id number] 25mg Take 1 tablet by mouth in the morning and 1 tablet in the evening. Take with meals. [facility] diphenhydrA MINE 25 mg tablet 08-17 00:00: 00 Yes [id number] 25mg Take 1 tablet by mouth as needed for Allergies (Before infusion). [facility] ferrous sulfate 325 mg (65 mg iron) tablet 08-17 00:00: 00 Yes [id number] 325mg Take 1 tablet by mouth every other day. [facility] risperiDONE 1 mg tablet 08-17 00:00: 00 Yes [id number] 1mg Take 1 tablet by mouth in the morning and 1 tablet in the evening. [facility] pantoprazol e 40 mg EC tablet 08-17 00:00: 00 Yes [id number] 40mg Take 1 tablet by mouth in the morning. [facility] hydrOXYzine 10 mg tablet 08-17 00:00: 00 Yes [id number] 10mg Take 1 tablet by mouth every 6 (six) hours as needed for Itching. [facility] amLODIPine 10 mg tablet 08-17 00:00: 00 Yes [id number] 10mg Take 1 tablet by mouth in the morning. [facility] carvediloL (COREG) 25 mg tablet 08-17 00:00: 00 Yes [id number] 25mg Take 1 tablet by mouth in the morning and 1 tablet in the evening. Take with meals. [facility] diphenhydrA MINE 25 mg tablet 08-17 00:00: 00 Yes [id number] 25mg Take 1 tablet by mouth as needed for Allergies (Before infusion). [facility] ferrous sulfate 325 mg (65 mg iron) tablet 08-17 00:00: 00 Yes [id number] 325mg Take 1 tablet by mouth every other day. [facility] risperiDONE 1 mg tablet 08-17 00:00: 00 Yes [id number] 1mg Take 1 tablet by mouth in the morning and 1 tablet in the evening. [facility] pantoprazol e 40 mg EC tablet 08-17 00:00: 00 Yes [id number] 40mg Take 1 tablet by mouth in the morning. [facility] hydrOXYzine 10 mg tablet 08-17 00:00: 00 Yes [id number] 10mg Take 1 tablet by mouth every 6 (six) hours as needed for Itching. [facility] amLODIPine 10 mg tablet 08-17 00:00: 00 Yes [id number] 10mg Take 1 tablet by mouth in the morning. [facility] carvediloL (COREG) 25 mg tablet 08-17 00:00: 00 Yes [id number] 25mg Take 1 tablet by mouth in the morning and 1 tablet in the evening. Take with meals. [facility] ferrous sulfate 325 mg (65 mg iron) tablet 08-17 00:00: 00 Yes [id number] 325mg Take 1 tablet by mouth every other day. [facility] risperiDONE 1 mg tablet 08-17 00:00: 00 Yes [id number] 1mg Take 1 tablet by mouth in the morning and 1 tablet in the evening. [facility] pantoprazol e 40 mg EC tablet 08-17 00:00: 00 Yes [id number] 40mg Take 1 tablet by mouth in the morning. [facility] hydrOXYzine 10 mg tablet 08-17 00:00: 00 Yes [id number] 10mg Take 1 tablet by mouth every 6 (six) hours as needed for Itching. [facility] amLODIPine 10 mg tablet 08-17 00:00: 00 Yes [id number] 10mg Take 1 tablet by mouth in the morning. [facility] carvediloL (COREG) 25 mg tablet 08-17 00:00: 00 Yes [id number] 25mg Take 1 tablet by mouth in the morning and 1 tablet in the evening. Take with meals. [facility] ferrous sulfate 325 mg (65 mg iron) tablet 08-17 00:00: 00 Yes [id number] 325mg Take 1 tablet by mouth every other day. [facility] risperiDONE 1 mg tablet 08-17 00:00: 00 Yes [id number] 1mg Take 1 tablet by mouth in the morning and 1 tablet in the evening. [facility] pantoprazol e 40 mg EC tablet 08-17 00:00: 00 Yes [id number] 40mg Take 1 tablet by mouth in the morning. [facility] hydrOXYzine 10 mg tablet 08-17 00:00: 00 Yes [id number] 10mg Take 1 tablet by mouth every 6 (six) hours as needed for Itching. [facility] amLODIPine 10 mg tablet 08-17 00:00: 00 Yes [id number] 10mg Take 1 tablet by mouth in the morning. [facility] carvediloL (COREG) 25 mg tablet 08-17 00:00: 00 Yes [id number] 25mg Take 1 tablet by mouth in the morning and 1 tablet in the evening. Take with meals. [facility] ferrous sulfate 325 mg (65 mg iron) tablet 08-17 00:00: 00 Yes [id number] 325mg Take 1 tablet by mouth every other day. [facility] risperiDONE 1 mg tablet 08-17 00:00: 00 Yes [id number] 1mg Take 1 tablet by mouth in the morning and 1 tablet in the evening. [facility] pantoprazol e 40 mg EC tablet 08-17 00:00: 00 Yes [id number] 40mg Take 1 tablet by mouth in the morning. [facility] hydrOXYzine 10 mg tablet 08-17 00:00: 00 Yes [id number] 10mg Take 1 tablet by mouth every 6 (six) hours as needed for Itching. [facility] amLODIPine 10 mg tablet 08-17 00:00: 00 Yes [id number] 10mg Take 1 tablet by mouth in the morning. [facility] carvediloL (COREG) 25 mg tablet 08-17 00:00: 00 Yes [id number] 25mg Take 1 tablet by mouth in the morning and 1 tablet in the evening. Take with meals. [facility] ferrous sulfate 325 mg (65 mg iron) tablet 08-17 00:00: 00 Yes [id number] 325mg Take 1 tablet by mouth every other day. [facility] risperiDONE 1 mg tablet 08-17 00:00: 00 Yes [id number] 1mg Take 1 tablet by mouth in the morning and 1 tablet in the evening. [facility] pantoprazol e 40 mg EC tablet 08-17 00:00: 00 Yes [id number] 40mg Take 1 tablet by mouth in the morning. [facility] hydrOXYzine 10 mg tablet 08-17 00:00: 00 Yes [id number] 10mg Take 1 tablet by mouth every 6 (six) hours as needed for Itching. [facility] amLODIPine 10 mg tablet 08-17 00:00: 00 Yes [id number] 10mg Take 1 tablet by mouth in the morning. [facility] carvediloL (COREG) 25 mg tablet 08-17 00:00: 00 Yes [id number] 25mg Take 1 tablet by mouth in the morning and 1 tablet in the evening. Take with meals. [facility] ferrous sulfate 325 mg (65 mg iron) tablet 08-17 00:00: 00 Yes [id number] 325mg Take 1 tablet by mouth every other day. [facility] risperiDONE 1 mg tablet 08-17 00:00: 00 Yes [id number] 1mg Take 1 tablet by mouth in the morning and 1 tablet in the evening. [facility] pantoprazol e 40 mg EC tablet 08-17 00:00: 00 Yes [id number] 40mg Take 1 tablet by mouth in the morning. [facility] hydrOXYzine 10 mg tablet 08-17 00:00: 00 Yes [id number] 10mg Take 1 tablet by mouth every 6 (six) hours as needed for Itching. [facility] amLODIPine 10 mg tablet 08-17 00:00: 00 Yes [id number] 10mg Take 1 tablet by mouth in the morning. [facility] carvediloL (COREG) 25 mg tablet 08-17 00:00: 00 Yes [id number] 25mg Take 1 tablet by mouth in the morning and 1 tablet in the evening. Take with meals. [facility] ferrous sulfate 325 mg (65 mg iron) tablet 08-17 00:00: 00 Yes [id number] 325mg Take 1 tablet by mouth every other day. [facility] risperiDONE 1 mg tablet 08-17 00:00: 00 Yes [id number] 1mg Take 1 tablet by mouth in the morning and 1 tablet in the evening. [facility] pantoprazol e 40 mg EC tablet 08-17 00:00: 00 Yes [id number] 40mg Take 1 tablet by mouth in the morning. [facility] hydrOXYzine 10 mg tablet 08-17 00:00: 00 Yes [id number] 10mg Take 1 tablet by mouth every 6 (six) hours as needed for Itching. [facility] amLODIPine 10 mg tablet 08-17 00:00: 00 Yes [id number] 10mg Take 1 tablet by mouth in the morning. [facility] carvediloL (COREG) 25 mg tablet 08-17 00:00: 00 Yes [id number] 25mg Take 1 tablet by mouth in the morning and 1 tablet in the evening. Take with meals. [facility] ferrous sulfate 325 mg (65 mg iron) tablet 08-17 00:00: 00 Yes [id number] 325mg Take 1 tablet by mouth every other day. [facility] risperiDONE 1 mg tablet 08-17 00:00: 00 Yes [id number] 1mg Take 1 tablet by mouth in the morning and 1 tablet in the evening. [facility] pantoprazol e 40 mg EC tablet 08-17 00:00: 00 Yes [id number] 40mg Take 1 tablet by mouth in the morning. [facility] hydrOXYzine 10 mg tablet 08-17 00:00: 00 Yes [id number] 10mg Take 1 tablet by mouth every 6 (six) hours as needed for Itching. [facility] amLODIPine 10 mg tablet 08-17 00:00: 00 Yes [id number] 10mg Take 1 tablet by mouth in the morning. [facility] carvediloL (COREG) 25 mg tablet 08-17 00:00: 00 Yes [id number] 25mg Take 1 tablet by mouth in the morning and 1 tablet in the evening. Take with meals. [facility] ferrous sulfate 325 mg (65 mg iron) tablet 08-17 00:00: 00 Yes [id number] 325mg Take 1 tablet by mouth every other day. [facility] risperiDONE 1 mg tablet 08-17 00:00: 00 Yes [id number] 1mg Take 1 tablet by mouth in the morning and 1 tablet in the evening. [facility] pantoprazol e 40 mg EC tablet 08-17 00:00: 00 Yes [id number] 40mg Take 1 tablet by mouth in the morning. [facility] hydrOXYzine 10 mg tablet 08-17 00:00: 00 Yes [id number] 10mg Take 1 tablet by mouth every 6 (six) hours as needed for Itching. [facility] amLODIPine 10 mg tablet 08-17 00:00: 00 Yes [id number] 10mg Take 1 tablet by mouth in the morning. [facility] carvediloL (COREG) 25 mg tablet 08-17 00:00: 00 Yes [id number] 25mg Take 1 tablet by mouth in the morning and 1 tablet in the evening. Take with meals. [facility] ferrous sulfate 325 mg (65 mg iron) tablet 08-17 00:00: 00 Yes [id number] 325mg Take 1 tablet by mouth every other day. [facility] risperiDONE 1 mg tablet 08-17 00:00: 00 Yes [id number] 1mg Take 1 tablet by mouth in the morning and 1 tablet in the evening. [facility] pantoprazol e 40 mg EC tablet 08-17 00:00: 00 Yes [id number] 40mg Take 1 tablet by mouth in the morning. [facility] hydrOXYzine 10 mg tablet 08-17 00:00: 00 Yes [id number] 10mg Take 1 tablet by mouth every 6 (six) hours as needed for Itching. [facility] amLODIPine 10 mg tablet 08-17 00:00: 00 Yes [id number] 10mg Take 1 tablet by mouth in the morning. [facility] carvediloL (COREG) 25 mg tablet 08-17 00:00: 00 Yes [id number] 25mg Take 1 tablet by mouth in the morning and 1 tablet in the evening. Take with meals. [facility] ferrous sulfate 325 mg (65 mg iron) tablet 08-17 00:00: 00 Yes [id number] 325mg Take 1 tablet by mouth every other day. [facility] risperiDONE 1 mg tablet 08-17 00:00: 00 Yes [id number] 1mg Take 1 tablet by mouth in the morning and 1 tablet in the evening. [facility] pantoprazol e 40 mg EC tablet 08-17 00:00: 00 Yes [id number] 40mg Take 1 tablet by mouth in the morning. [facility] hydrOXYzine 10 mg tablet 08-17 00:00: 00 Yes [id number] 10mg Take 1 tablet by mouth every 6 (six) hours as needed for Itching. [facility] amLODIPine 10 mg tablet 08-17 00:00: 00 Yes [id number] 10mg Take 1 tablet by mouth in the morning. [facility] carvediloL (COREG) 25 mg tablet 08-17 00:00: 00 Yes [id number] 25mg Take 1 tablet by mouth in the morning and 1 tablet in the evening. Take with meals. [facility] ferrous sulfate 325 mg (65 mg iron) tablet 08-17 00:00: 00 Yes [id number] 325mg Take 1 tablet by mouth every other day. [facility] risperiDONE 1 mg tablet 08-17 00:00: 00 Yes [id number] 1mg Take 1 tablet by mouth in the morning and 1 tablet in the evening. [facility] pantoprazol e 40 mg EC tablet 08-17 00:00: 00 Yes [id number] 40mg Take 1 tablet by mouth in the morning. [facility] hydrOXYzine 10 mg tablet 08-17 00:00: 00 Yes [id number] 10mg Take 1 tablet by mouth every 6 (six) hours as needed for Itching. [facility] amLODIPine 10 mg tablet 08-17 00:00: 00 Yes [id number] 10mg Take 1 tablet by mouth in the morning. [facility] carvediloL (COREG) 25 mg tablet 08-17 00:00: 00 Yes [id number] 25mg Take 1 tablet by mouth in the morning and 1 tablet in the evening. Take with meals. [facility] ferrous sulfate 325 mg (65 mg iron) tablet 08-17 00:00: 00 Yes [id number] 325mg Take 1 tablet by mouth every other day. [facility] risperiDONE 1 mg tablet 08-17 00:00: 00 Yes [id number] 1mg Take 1 tablet by mouth in the morning and 1 tablet in the evening. [facility] pantoprazol e 40 mg EC tablet 08-17 00:00: 00 Yes [id number] 40mg Take 1 tablet by mouth in the morning. [facility] hydrOXYzine 10 mg tablet 08-17 00:00: 00 Yes [id number] 10mg Take 1 tablet by mouth every 6 (six) hours as needed for Itching. [facility] amLODIPine 10 mg tablet 08-17 00:00: 00 Yes [id number] 10mg Take 1 tablet by mouth in the morning. [facility] carvediloL (COREG) 25 mg tablet 08-17 00:00: 00 Yes [id number] 25mg Take 1 tablet by mouth in the morning and 1 tablet in the evening. Take with meals. [facility] ferrous sulfate 325 mg (65 mg iron) tablet 08-17 00:00: 00 Yes [id number] 325mg Take 1 tablet by mouth every other day. [facility] risperiDONE 1 mg tablet 08-17 00:00: 00 Yes [id number] 1mg Take 1 tablet by mouth in the morning and 1 tablet in the evening. [facility] pantoprazol e 40 mg EC tablet 08-17 00:00: 00 Yes [id number] 40mg Take 1 tablet by mouth in the morning. [facility] hydrOXYzine 10 mg tablet 08-17 00:00: 00 Yes [id number] 10mg Take 1 tablet by mouth every 6 (six) hours as needed for Itching. [facility] amLODIPine 10 mg tablet 08-17 00:00: 00 Yes [id number] 10mg Take 1 tablet by mouth in the morning. [facility] carvediloL (COREG) 25 mg tablet 08-17 00:00: 00 Yes [id number] 25mg Take 1 tablet by mouth in the morning and 1 tablet in the evening. Take with meals. [facility] ferrous sulfate 325 mg (65 mg iron) tablet 08-17 00:00: 00 Yes [id number] 325mg Take 1 tablet by mouth every other day. [facility] risperiDONE 1 mg tablet 08-17 00:00: 00 Yes [id number] 1mg Take 1 tablet by mouth in the morning and 1 tablet in the evening. [facility] pantoprazol e 40 mg EC tablet 08-17 00:00: 00 Yes [id number] 40mg Take 1 tablet by mouth in the morning. [facility] hydrOXYzine 10 mg tablet 08-17 00:00: 00 Yes [id number] 10mg Take 1 tablet by mouth every 6 (six) hours as needed for Itching. [facility] amLODIPine 10 mg tablet 08-17 00:00: 00 Yes [id number] 10mg Take 1 tablet by mouth in the morning. [facility] carvediloL (COREG) 25 mg tablet 08-17 00:00: 00 Yes [id number] 25mg Take 1 tablet by mouth in the morning and 1 tablet in the evening. Take with meals. [facility] ferrous sulfate 325 mg (65 mg iron) tablet 08-17 00:00: 00 Yes [id number] 325mg Take 1 tablet by mouth every other day. [facility] risperiDONE 1 mg tablet 08-17 00:00: 00 Yes [id number] 1mg Take 1 tablet by mouth in the morning and 1 tablet in the evening. [facility] pantoprazol e 40 mg EC tablet 08-17 00:00: 00 Yes [id number] 40mg Take 1 tablet by mouth in the morning. [facility] hydrOXYzine 10 mg tablet 08-17 00:00: 00 Yes [id number] 10mg Take 1 tablet by mouth every 6 (six) hours as needed for Itching. [facility] amLODIPine 10 mg tablet 08-17 00:00: 00 Yes [id number] 10mg Take 1 tablet by mouth in the morning. [facility] carvediloL (COREG) 25 mg tablet 08-17 00:00: 00 Yes [id number] 25mg Take 1 tablet by mouth in the morning and 1 tablet in the evening. Take with meals. [facility] ferrous sulfate 325 mg (65 mg iron) tablet 08-17 00:00: 00 Yes [id number] 325mg Take 1 tablet by mouth every other day. [facility] risperiDONE 1 mg tablet 08-17 00:00: 00 Yes [id number] 1mg Take 1 tablet by mouth in the morning and 1 tablet in the evening. [facility] pantoprazol e 40 mg EC tablet 08-17 00:00: 00 Yes [id number] 40mg Take 1 tablet by mouth in the morning. [facility] hydrOXYzine 10 mg tablet 08-17 00:00: 00 Yes [id number] 10mg Take 1 tablet by mouth every 6 (six) hours as needed for Itching. [facility] amLODIPine 10 mg tablet 08-17 00:00: 00 Yes [id number] 10mg Take 1 tablet by mouth in the morning. [facility] carvediloL (COREG) 25 mg tablet 08-17 00:00: 00 Yes [id number] 25mg Take 1 tablet by mouth in the morning and 1 tablet in the evening. Take with meals. [facility] ferrous sulfate 325 mg (65 mg iron) tablet 08-17 00:00: 00 Yes [id number] 325mg Take 1 tablet by mouth every other day. [facility] risperiDONE 1 mg tablet 08-17 00:00: 00 Yes [id number] 1mg Take 1 tablet by mouth in the morning and 1 tablet in the evening. [facility] pantoprazol e 40 mg EC tablet 08-17 00:00: 00 Yes [id number] 40mg Take 1 tablet by mouth in the morning. [facility] hydrOXYzine 10 mg tablet 08-17 00:00: 00 Yes [id number] 10mg Take 1 tablet by mouth every 6 (six) hours as needed for Itching. [facility] amLODIPine 10 mg tablet 08-17 00:00: 00 Yes [id number] 10mg Take 1 tablet by mouth in the morning. [facility] carvediloL (COREG) 25 mg tablet 08-17 00:00: 00 Yes [id number] 25mg Take 1 tablet by mouth in the morning and 1 tablet in the evening. Take with meals. [facility] ferrous sulfate 325 mg (65 mg iron) tablet 08-17 00:00: 00 Yes [id number] 325mg Take 1 tablet by mouth every other day. [facility] risperiDONE 1 mg tablet 08-17 00:00: 00 Yes [id number] 1mg Take 1 tablet by mouth in the morning and 1 tablet in the evening. [facility] pantoprazol e 40 mg EC tablet 08-17 00:00: 00 Yes [id number] 40mg Take 1 tablet by mouth in the morning. [facility] hydrOXYzine 10 mg tablet 08-17 00:00: 00 Yes [id number] 10mg Take 1 tablet by mouth every 6 (six) hours as needed for Itching. [facility] amLODIPine 10 mg tablet 08-17 00:00: 00 Yes [id number] 10mg Take 1 tablet by mouth in the morning. [facility] carvediloL (COREG) 25 mg tablet 08-17 00:00: 00 Yes [id number] 25mg Take 1 tablet by mouth in the morning and 1 tablet in the evening. Take with meals. [facility] ferrous sulfate 325 mg (65 mg iron) tablet 08-17 00:00: 00 Yes [id number] 325mg Take 1 tablet by mouth every other day. [facility] risperiDONE 1 mg tablet 08-17 00:00: 00 Yes [id number] 1mg Take 1 tablet by mouth in the morning and 1 tablet in the evening. [facility] pantoprazol e 40 mg EC tablet 08-17 00:00: 00 Yes [id number] 40mg Take 1 tablet by mouth in the morning. [facility] hydrOXYzine 10 mg tablet 08-17 00:00: 00 Yes [id number] 10mg Take 1 tablet by mouth every 6 (six) hours as needed for Itching. [facility] amLODIPine 10 mg tablet 08-17 00:00: 00 Yes [id number] 10mg Take 1 tablet by mouth in the morning. [facility] carvediloL (COREG) 25 mg tablet 08-17 00:00: 00 Yes [id number] 25mg Take 1 tablet by mouth in the morning and 1 tablet in the evening. Take with meals. [facility] ferrous sulfate 325 mg (65 mg iron) tablet 08-17 00:00: 00 Yes [id number] 325mg Take 1 tablet by mouth every other day. [facility] risperiDONE 1 mg tablet 08-17 00:00: 00 Yes [id number] 1mg Take 1 tablet by mouth in the morning and 1 tablet in the evening. [facility] pantoprazol e 40 mg EC tablet 08-17 00:00: 00 Yes [id number] 40mg Take 1 tablet by mouth in the morning. [facility] hydrOXYzine 10 mg tablet 08-17 00:00: 00 Yes [id number] 10mg Take 1 tablet by mouth every 6 (six) hours as needed for Itching. [facility] amLODIPine 10 mg tablet 08-17 00:00: 00 Yes [id number] 10mg Take 1 tablet by mouth in the morning. [facility] carvediloL (COREG) 25 mg tablet 08-17 00:00: 00 Yes [id number] 25mg Take 1 tablet by mouth in the morning and 1 tablet in the evening. Take with meals. [facility] ferrous sulfate 325 mg (65 mg iron) tablet 08-17 00:00: 00 Yes [id number] 325mg Take 1 tablet by mouth every other day. [facility] predniSONE 5 mg tablet 08-17 00:00: 00 07-05 05:59 :00 No [id number] Take 4 tablets by mouth daily for 7 days, THEN 3.5 tablets daily for 7 days, THEN 3 tablets daily for 7 days, THEN 2 tablets daily for 300 days. [facility] predniSONE 5 mg tablet 08-17 00:00: 07-05 05:59 :00 No [id number] Take 4 tablets by mouth daily for 7 days, THEN 3.5 tablets daily for 7 days, THEN 3 tablets daily for 7 days, THEN 2 tablets daily for 300 days. [facility] predniSONE 5 mg tablet 08-17 00:00: 00 07-05 05:59 :00 No [id number] Take 4 tablets by mouth daily for 7 days, THEN 3.5 tablets daily for 7 days, THEN 3 tablets daily for 7 days, THEN 2 tablets daily for 300 days. [facility] predniSONE 5 mg tablet 08-17 00:00: 00 07-05 05:59 :00 No [id number] Take 4 tablets by mouth daily for 7 days, THEN 3.5 tablets daily for 7 days, THEN 3 tablets daily for 7 days, THEN 2 tablets daily for 300 days. [facility] predniSONE 5 mg tablet 2023-0 1-24 00:00: 00 07-05 05:59 :00 No [id number] Take 4 tablets by mouth daily for 7 days, THEN 3.5 tablets daily for 7 days, THEN 3 tablets daily for 7 days, THEN 2 tablets daily for 300 days. [facility] predniSONE 5 mg tablet 2023-0 1-24 00:00: 00 07-05 05:59 :00 No [id number] Take 4 tablets by mouth daily for 7 days, THEN 3.5 tablets daily for 7 days, THEN 3 tablets daily for 7 days, THEN 2 tablets daily for 300 days. [facility] predniSONE 5 mg tablet 3-0 1-24 00:00: 00 07-05 05:59 :00 No [id number] Take 4 tablets by mouth daily for 7 days, THEN 3.5 tablets daily for 7 days, THEN 3 tablets daily for 7 days, THEN 2 tablets daily for 300 days. [facility] predniSONE 5 mg tablet 2023-0 1-24 00:00: 00 07-05 05:59 :00 No [id number] Take 4 tablets by mouth daily for 7 days, THEN 3.5 tablets daily for 7 days, THEN 3 tablets daily for 7 days, THEN 2 tablets daily for 300 days. [facility] predniSONE 5 mg tablet 2023-0 1-24 00:00: 00 07-05 05:59 :00 No [id number] Take 4 tablets by mouth daily for 7 days, THEN 3.5 tablets daily for 7 days, THEN 3 tablets daily for 7 days, THEN 2 tablets daily for 300 days. [facility] predniSONE 5 mg tablet 2023-0 1-24 00:00: 00 07-05 05:59 :00 No [id number] Take 4 tablets by mouth daily for 7 days, THEN 3.5 tablets daily for 7 days, THEN 3 tablets daily for 7 days, THEN 2 tablets daily for 300 days. [facility] predniSONE 5 mg tablet 2023-0 1-24 00:00: 00 07-05 05:59 :00 No [id number] Take 4 tablets by mouth daily for 7 days, THEN 3.5 tablets daily for 7 days, THEN 3 tablets daily for 7 days, THEN 2 tablets daily for 300 days. [facility] predniSONE 5 mg tablet 2023-0 1-24 00:00: 00 07-05 05:59 :00 No [id number] Take 4 tablets by mouth daily for 7 days, THEN 3.5 tablets daily for 7 days, THEN 3 tablets daily for 7 days, THEN 2 tablets daily for 300 days. [facility] predniSONE 5 mg tablet 2023-0 1-24 00:00: 00 07-05 05:59 :00 No [id number] Take 4 tablets by mouth daily for 7 days, THEN 3.5 tablets daily for 7 days, THEN 3 tablets daily for 7 days, THEN 2 tablets daily for 300 days. [facility] predniSONE 5 mg tablet 2023-0 1-24 00:00: 00 07-05 05:59 :00 No [id number] Take 4 tablets by mouth daily for 7 days, THEN 3.5 tablets daily for 7 days, THEN 3 tablets daily for 7 days, THEN 2 tablets daily for 300 days. [facility] predniSONE 5 mg tablet 2023-0 1-24 00:00: 00 07-05 05:59 :00 No [id number] Take 4 tablets by mouth daily for 7 days, THEN 3.5 tablets daily for 7 days, THEN 3 tablets daily for 7 days, THEN 2 tablets daily for 300 days. [facility] predniSONE 5 mg tablet 2023-0 1-24 00:00: 00 07-05 05:59 :00 No [id number] Take 4 tablets by mouth daily for 7 days, THEN 3.5 tablets daily for 7 days, THEN 3 tablets daily for 7 days, THEN 2 tablets daily for 300 days. [facility] predniSONE 5 mg tablet 2023-0 1-24 00:00: 00 07-05 05:59 :00 No [id number] Take 4 tablets by mouth daily for 7 days, THEN 3.5 tablets daily for 7 days, THEN 3 tablets daily for 7 days, THEN 2 tablets daily for 300 days. [facility] pred[facility] tablet 2023-0 1-24 00:00: 00 07-05 05:59 :00 No [id number] Take 4 tablets by mouth daily for 7 days, THEN 3.5 tablets daily for 7 days, THEN 3 tablets daily for 7 days, THEN 2 tablets daily for 300 days. [facility] predniSONE 5 mg tablet 2023-0 1-24 00:00: 00 07-05 05:59 :00 No [id number] Take 4 tablets by mouth daily for 7 days, THEN 3.5 tablets daily for 7 days, THEN 3 tablets daily for 7 days, THEN 2 tablets daily for 300 days. [facility] predniSONE 5 mg tablet 2023-0 1-24 00:00: 00 07-05 05:59 :00 No [id number] Take 4 tablets by mouth daily for 7 days, THEN 3.5 tablets daily for 7 days, THEN 3 tablets daily for 7 days, THEN 2 tablets daily for 300 days. [facility] predniSONE 5 mg tablet 3-0 1-24 00:00: 00 07-05 05:59 :00 No [id number] Take 4 tablets by mouth daily for 7 days, THEN 3.5 tablets daily for 7 days, THEN 3 tablets daily for 7 days, THEN 2 tablets daily for 300 days. [facility] predniSONE 5 mg tablet 2023-0 1-24 00:00: 00 07-05 05:59 :00 No [id number] Take 4 tablets by mouth daily for 7 days, THEN 3.5 tablets daily for 7 days, THEN 3 tablets daily for 7 days, THEN 2 tablets daily for 300 days. [facility] predniSONE 5 mg tablet 2023-0 1-24 00:00: 00 07-05 05:59 :00 No [id number] Take 4 tablets by mouth daily for 7 days, THEN 3.5 tablets daily for 7 days, THEN 3 tablets daily for 7 days, THEN 2 tablets daily for 300 days. [facility] predniSONE 5 mg tablet 2023-0 1-24 00:00: 00 07-05 05:59 :00 No [id number] Take 4 tablets by mouth daily for 7 days, THEN 3.5 tablets daily for 7 days, THEN 3 tablets daily for 7 days, THEN 2 tablets daily for 300 days. [facility] predniSONE 5 mg tablet 2023-0 1-24 00:00: 00 07-05 05:59 :00 No [id number] Take 4 tablets by mouth daily for 7 days, THEN 3.5 tablets daily for 7 days, THEN 3 tablets daily for 7 days, THEN 2 tablets daily for 300 days. [facility] predniSONE 5 mg tablet 2023-0 1-24 00:00: 00 07-05 05:59 :00 No [id number] Take 4 tablets by mouth daily for 7 days, THEN 3.5 tablets daily for 7 days, THEN 3 tablets daily for 7 days, THEN 2 tablets daily for 300 days. [facility] predniSONE 5 mg tablet 3-0 1-24 00:00: 00 07-05 05:59 :00 No [id number] Take 4 tablets by mouth daily for 7 days, THEN 3.5 tablets daily for 7 days, THEN 3 tablets daily for 7 days, THEN 2 tablets daily for 300 days. [facility] predniSONE 5 mg tablet 2023-0 1-24 00:00: 00 07-05 05:59 :00 No [id number] Take 4 tablets by mouth daily for 7 days, THEN 3.5 tablets daily for 7 days, THEN 3 tablets daily for 7 days, THEN 2 tablets daily for 300 days. [facility] predniSONE 5 mg tablet 2023-0 1-24 00:00: 00 07-05 05:59 :00 No [id number] Take 4 tablets by mouth daily for 7 days, THEN 3.5 tablets daily for 7 days, THEN 3 tablets daily for 7 days, THEN 2 tablets daily for 300 days. [facility] predniSONE 5 mg tablet 2023-0 1-24 00:00: 00 07-05 05:59 :00 No [id number] Take 4 tablets by mouth daily for 7 days, THEN 3.5 tablets daily for 7 days, THEN 3 tablets daily for 7 days, THEN 2 tablets daily for 300 days. [facility] predniSONE 5 mg tablet 2023-0 1-24 00:00: 00 07-05 05:59 :00 No [id number] Take 4 tablets by mouth daily for 7 days, THEN 3.5 tablets daily for 7 days, THEN 3 tablets daily for 7 days, THEN 2 tablets daily for 300 days. [facility] predniSONE 5 mg tablet 2023-0 1-24 00:00: 00 07-05 05:59 :00 No [id number] Take 4 tablets by mouth daily for 7 days, THEN 3.5 tablets daily for 7 days, THEN 3 tablets daily for 7 days, THEN 2 tablets daily for 300 days. [facility] predniSONE 5 mg tablet 2023-0 1-24 00:00: 00 07-05 05:59 :00 No [id number] Take 4 tablets by mouth daily for 7 days, THEN 3.5 tablets daily for 7 days, THEN 3 tablets daily for 7 days, THEN 2 tablets daily for 300 days. [facility] predniSONE 5 mg tablet 2023-0 1-24 00:00: 00 07-05 05:59 :00 No [id number] Take 4 tablets by mouth daily for 7 days, THEN 3.5 tablets daily for 7 days, THEN 3 tablets daily for 7 days, THEN 2 tablets daily for 300 days. [facility] predniSONE 5 mg tablet 2023-0 1-24 00:00: 00 07-05 05:59 :00 No [id number] Take 4 tablets by mouth daily for 7 days, THEN 3.5 tablets daily for 7 days, THEN 3 tablets daily for 7 days, THEN 2 tablets daily for 300 days. [facility] predniSONE 5 mg tablet 2023-0 1-24 00:00: 00 07-05 05:59 :00 No [id number] Take 4 tablets by mouth daily for 7 days, THEN 3.5 tablets daily for 7 days, THEN 3 tablets daily for 7 days, THEN 2 tablets daily for 300 days. [facility] predniSONE 5 mg tablet 2023-0 1-24 00:00: 00 07-05 05:59 :00 No [id number] Take 4 tablets by mouth daily for 7 days, THEN 3.5 tablets daily for 7 days, THEN 3 tablets daily for 7 days, THEN 2 tablets daily for 300 days. [facility] predni[facility] mg tablet 2023-0 1-24 00:00: 00 07-05 05:59 :00 No [id number] Take 4 tablets by mouth daily for 7 days, THEN 3.5 tablets daily for 7 days, THEN 3 tablets daily for 7 days, THEN 2 tablets daily for 300 days. [facility] predniSONE 5 mg tablet 2023-0 1-24 00:00: 00 07-05 05:59 :00 No [id number] Take 4 tablets by mouth daily for 7 days, THEN 3.5 tablets daily for 7 days, THEN 3 tablets daily for 7 days, THEN 2 tablets daily for 300 days. [facility] predniSONE 5 mg tablet 2023-0 1-24 00:00: 00 07-05 05:59 :00 No [id number] Take 4 tablets by mouth daily for 7 days, THEN 3.5 tablets daily for 7 days, THEN 3 tablets daily for 7 days, THEN 2 tablets daily for 300 days. [facility] predniSONE 5 mg tablet 3-0 1-24 00:00: 00 07-05 05:59 :00 No [id number] Take 4 tablets by mouth daily for 7 days, THEN 3.5 tablets daily for 7 days, THEN 3 tablets daily for 7 days, THEN 2 tablets daily for 300 days. [facility] predniSONE 5 mg tablet 2023-0 1-24 00:00: 00 07-05 05:59 :00 No [id number] Take 4 tablets by mouth daily for 7 days, THEN 3.5 tablets daily for 7 days, THEN 3 tablets daily for 7 days, THEN 2 tablets daily for 300 days. [facility] predniSONE 5 mg tablet 2023-0 1-24 00:00: 00 07-05 05:59 :00 No [id number] Take 4 tablets by mouth daily for 7 days, THEN 3.5 tablets daily for 7 days, THEN 3 tablets daily for 7 days, THEN 2 tablets daily for 300 days. [facility] predniSONE 5 mg tablet 2023-0 1-24 00:00: 00 07-05 05:59 :00 No [id number] Take 4 tablets by mouth daily for 7 days, THEN 3.5 tablets daily for 7 days, THEN 3 tablets daily for 7 days, THEN 2 tablets daily for 300 days. [facility] predniSONE 5 mg tablet 2023-0 1-24 00:00: 00 07-05 05:59 :00 No [id number] Take 4 tablets by mouth daily for 7 days, THEN 3.5 tablets daily for 7 days, THEN 3 tablets daily for 7 days, THEN 2 tablets daily for 300 days. [facility] predniSONE 5 mg tablet 2023-0 1-24 00:00: 00 07-05 05:59 :00 No [id number] Take 4 tablets by mouth daily for 7 days, THEN 3.5 tablets daily for 7 days, THEN 3 tablets daily for 7 days, THEN 2 tablets daily for 300 days. [facility] predniSONE 5 mg tablet 3-0 1-24 00:00: 00 07-05 05:59 :00 No [id number] Take 4 tablets by mouth daily for 7 days, THEN 3.5 tablets daily for 7 days, THEN 3 tablets daily for 7 days, THEN 2 tablets daily for 300 days. [facility] predniSONE 5 mg tablet 2023-0 1-24 00:00: 00 07-05 05:59 :00 No [id number] Take 4 tablets by mouth daily for 7 days, THEN 3.5 tablets daily for 7 days, THEN 3 tablets daily for 7 days, THEN 2 tablets daily for 300 days. [facility] predniSONE 5 mg tablet 2023-0 1-24 00:00: 00 07-05 05:59 :00 No [id number] Take 4 tablets by mouth daily for 7 days, THEN 3.5 tablets daily for 7 days, THEN 3 tablets daily for 7 days, THEN 2 tablets daily for 300 days. [facility] predniSONE 5 mg tablet 2023-0 1-24 00:00: 00 07-05 05:59 :00 No [id number] Take 4 tablets by mouth daily for 7 days, THEN 3.5 tablets daily for 7 days, THEN 3 tablets daily for 7 days, THEN 2 tablets daily for 300 days. [facility] predniSONE 5 mg tablet 08-17 00:00: 00 07-05 05:59 :00 No [id number] Take 4 tablets by mouth daily for 7 days, THEN 3.5 tablets daily for 7 days, THEN 3 tablets daily for 7 days, THEN 2 tablets daily for 300 days. [facility] diphenhydrA MINE 25 mg tablet 08-17 00:00: 00 03-21 00:00 :00 No [id number] 25mg Take 1 tablet by mouth as needed for Allergies (Before infusion). [facility] divalproex 500 mg EC tablet 08-17 00:00: 00 10-26 00:00 :00 No [id number] 1500mg Take 3 tablets by mouth every 12 (twelve) hours. [facility] metFORMIN 1,000 mg tablet 08-17 00:00: 00 08-17 00:00 :00 No [id number] 1000mg Take 1 tablet by mouth in the morning and 1 tablet in the evening. Take with meals. [facility] hydrALAZINE 25 mg tablet 08-17 00:00: 00 08-17 00:00 :00 No [id number] 25mg Take 1 tablet by mouth every 6 (six) hours. [facility] gabapentin 300 mg capsule 08-17 00:00: 00 08-17 00:00 :00 No [id number] 300mg Take 1 capsule by mouth in the morning and 1 capsule at noon and 1 capsule in the evening. [facility] ferrous sulfate 325 mg (65 mg iron) tablet 08-17 00:00: 00 08-17 00:00 :00 No [id number] 325mg Take 1 tablet by mouth every other day. [facility] diphenhydrA MINE 25 mg tablet 08-17 00:00: 00 08-17 00:00 :00 No [id number] 25mg Take 1 tablet by mouth as needed for Allergies (Before infusion). [facility] carvediloL (COREG) 25 mg tablet 08-17 00:00: 00 08-17 00:00 :00 No [id number] 25mg Take 1 tablet by mouth in the morning and 1 tablet in the evening. Take with meals. [facility] atorvastati n 20 mg tablet 08-17 00:00: 00 08-17 00:00 :00 No [id number] 20mg Take 1 tablet by mouth at bedtime. [facility] amLODIPine 10 mg tablet 08-17 00:00: 00 08-17 00:00 :00 No [id number] 10mg Take 1 tablet by mouth in the morning. [facility] atorvastati n (LIPITOR) 20 mg tablet 08-12 09:11: 44 08-12 00:00 :00 No 20mg Take 20 mg by mouth at bedtime. [facility] atorvastati n (LIPITOR) 20 mg tablet 08-12 09:11: 44 08-12 00:00 :00 No 20mg Take 20 mg by mouth at bedtime. [facility] atorvastati n (LIPITOR) 20 mg tablet 08-12 09:11: 44 08-12 00:00 :00 No 20mg Take 20 mg by mouth at bedtime. [facility] atorvastati n (LIPITOR) 20 mg tablet 08-12 09:11: 44 08-12 00:00 :00 No 20mg Take 20 mg by mouth at bedtime. [facility] atorvastati n (LIPITOR) 20 mg tablet 08-12 09:11: 44 08-12 00:00 :00 No 20mg Take 20 mg by mouth at bedtime. [facility] vitamin B-12 100 mcg tablet 08-12 09:04: 51 08-12 00:00 :00 No 2500ug Take 2,500 mcg by mouth daily. [facility] vitamin B-12 100 mcg tablet 08-12 09:04: 51 08-12 00:00 :00 No 2500ug Take 2,500 mcg by mouth daily. [facility] vitamin B-12 100 mcg tablet 08-12 09:04: 51 08-12 00:00 :00 No 2500ug Take 2,500 mcg by mouth daily. [facility] vitamin B-12 100 mcg tablet 08-12 09:04: 51 08-12 00:00 :00 No 2500ug Take 2,500 mcg by mouth daily. [facility] vitamin B-12 100 mcg tablet 08-12 09:04: 51 08-12 00:00 :00 No 2500ug Take 2,500 mcg by mouth daily. [facility] tiZANidine 4 mg tablet 08-12 09:03: 27 08-12 00:00 :00 No tizanidine 4 mg tablet Take 1 tablet every 12 hours by oral route as needed for 30 days. [facility] HYDROcodone -acetaminop hen 7.5-325 mg per tablet 08-12 09:03: 15 08-12 00:00 :00 No hydrocodon e 7.5 mg-acetami nophen 325 mg tablet [facility] FLUoxetine 40 mg capsule 08-12 09:03: 05 08-12 00:00 :00 No fluoxetine 40 mg capsule [facility] etodolac 500 mg tablet 08-12 09:02: 59 08-12 00:00 :00 No etodolac 500 mg tablet TAKE ONE TABLET BY MOUTH TWICE A DAY NEEDED [facility] Diclofenac Sodium 1 % gel 08-12 09:02: 47 08-12 00:00 :00 No diclofenac 1 % topical gel [facility] citalopram 20 mg tablet 08-12 09:02: 41 08-12 00:00 :00 No citalopram 20 mg tablet [facility] busPIRone 15 mg tablet 08-12 09:02: 28 08-12 00:00 :00 No buspirone 15 mg tablet [facility] busPIRone 30 mg tablet 08-12 09:02: 16 08-12 00:00 :00 No buspirone 30 mg tablet [facility] baclofen 10 mg tablet 08-12 09:01: 53 08-12 00:00 :00 No baclofen 10 mg tablet Take 1 tablet every 12 hours by oral route as needed for 30 days. [facility] ALPRAZolam 0.5 mg tablet 08-12 09:00: 07 08-12 00:00 :00 No alprazolam 0.5 mg tablet [facility] amLODIPine 10 mg tablet 08-12 00:00: 00 08-17 00:00 :00 No [id number] 10mg Take 1 tablet by mouth in the morning. [facility] carvediloL (COREG) 25 mg tablet 08-12 00:00: 00 08-17 00:00 :00 No [id number] 25mg Take 1 tablet by mouth in the morning and 1 tablet in the evening. Take with meals. [facility] diphenhydrA MINE 25 mg tablet 08-12 00:00: 00 08-17 00:00 :00 No [id number] 25mg Take 1 tablet by mouth as needed for Allergies (Before infusion). [facility] divalproex 500 mg EC tablet 08-12 00:00: 00 08-17 00:00 :00 No [id number] 1500mg Take 3 tablets by mouth every 12 (twelve) hours. [facility] ferrous sulfate 325 mg (65 mg iron) tablet 08-12 00:00: 00 08-17 00:00 :00 No [id number] 325mg Take 1 tablet by mouth every other day. [facility] gabapentin 300 mg capsule 08-12 00:00: 00 08-17 00:00 :00 No [id number] 300mg Take 1 capsule by mouth in the morning and 1 capsule at noon and 1 capsule in the evening. [facility] hydrOXYzine 10 mg tablet 08-12 00:00: 00 08-17 00:00 :00 No [id number] 10mg Take 1 tablet by mouth every 6 (six) hours as needed for Itching. [facility] lisinopriL 40 mg tablet 08-12 00:00: 00 08-17 00:00 :00 No [id number] 40mg Take 1 tablet by mouth in the morning. [facility] pantoprazol e 40 mg EC tablet 08-12 00:00: 00 08-17 00:00 :00 No [id number] 40mg Take 1 tablet by mouth in the morning. [facility] predniSONE 5 mg tablet 08-12 00:00: 00 08-17 00:00 :00 No [id number] Take 4 tablets by mouth daily for 7 days, THEN 3.5 tablets daily for 7 days, THEN 3 tablets daily for 7 days, THEN 2 tablets daily for 300 days. [facility] atorvastati n 20 mg tablet 08-12 00:00: 00 08-17 00:00 :00 No [id number] 20mg Take 1 tablet by mouth at bedtime. [facility] hydrALAZINE 25 mg tablet 08-12 00:00: 00 08-17 00:00 :00 No [id number] 25mg Take 1 tablet by mouth every 6 (six) hours. [facility] risperiDONE 1 mg tablet 08-12 00:00: 00 08-17 00:00 :00 No [id number] 1mg Take 1 tablet by mouth in the morning and 1 tablet in the evening. [facility] metFORMIN 1,000 mg tablet 08-12 00:00: 00 08-17 00:00 :00 No [id number] 1000mg Take 1 tablet by mouth in the morning and 1 tablet in the evening. Take with meals. [facility] amLODIPine 10 mg tablet 08-12 00:00: 00 08-17 00:00 :00 No [id number] 10mg Take 1 tablet by mouth in the morning. [facility] carvediloL (COREG) 25 mg tablet 08-12 00:00: 00 08-17 00:00 :00 No [id number] 25mg Take 1 tablet by mouth in the morning and 1 tablet in the evening. Take with meals. [facility] diphenhydrA MINE 25 mg tablet 08-12 00:00: 00 08-17 00:00 :00 No [id number] 25mg Take 1 tablet by mouth as needed for Allergies (Before infusion). [facility] divalproex 500 mg EC tablet 08-12 00:00: 00 08-17 00:00 :00 No [id number] 1500mg Take 3 tablets by mouth every 12 (twelve) hours. [facility] ferrous sulfate 325 mg (65 mg iron) tablet 08-12 00:00: 00 08-17 00:00 :00 No [id number] 325mg Take 1 tablet by mouth every other day. [facility] gabapentin 300 mg capsule 08-12 00:00: 00 08-17 00:00 :00 No [id number] 300mg Take 1 capsule by mouth in the morning and 1 capsule at noon and 1 capsule in the evening. [facility] hydrOXYzine 10 mg tablet 08-12 00:00: 00 08-17 00:00 :00 No [id number] 10mg Take 1 tablet by mouth every 6 (six) hours as needed for Itching. [facility] lisinopriL 40 mg tablet 08-12 00:00: 00 08-17 00:00 :00 No [id number] 40mg Take 1 tablet by mouth in the morning. [facility] pantoprazol e 40 mg EC tablet 08-12 00:00: 00 08-17 00:00 :00 No [id number] 40mg Take 1 tablet by mouth in the morning. [facility] predniSONE 5 mg tablet 08-12 00:00: 00 08-17 00:00 :00 No [id number] Take 4 tablets by mouth daily for 7 days, THEN 3.5 tablets daily for 7 days, THEN 3 tablets daily for 7 days, THEN 2 tablets daily for 300 days. [facility] atorvastati n 20 mg tablet 08-12 00:00: 00 08-17 00:00 :00 No [id number] 20mg Take 1 tablet by mouth at bedtime. [facility] hydrALAZINE 25 mg tablet 08-12 00:00: 00 08-17 00:00 :00 No [id number] 25mg Take 1 tablet by mouth every 6 (six) hours. [facility] risperiDONE 1 mg tablet 08-12 00:00: 00 08-17 00:00 :00 No [id number] 1mg Take 1 tablet by mouth in the morning and 1 tablet in the evening. [facility] metFORMIN 1,000 mg tablet 08-12 00:00: 00 08-17 00:00 :00 No [id number] 1000mg Take 1 tablet by mouth in the morning and 1 tablet in the evening. Take with meals. [facility] divalproex 500 mg EC tablet 2021-07 00:00: 00 Yes [id number] 1500mg Take 3 tablets by mouth every 12 (twelve) hours. [facility] divalproex 500 mg EC tablet 2021-07 00:00: 00 Yes [id number] 1500mg Take 3 tablets by mouth every 12 (twelve) hours. [facility] divalproex 500 mg EC tablet 2021-07 00:00: 00 08-12 00:00 :00 No [id number] 1500mg Take 3 tablets by mouth every 12 (twelve) hours. [facility] ALPRAZolam 0.5 mg tablet 2021-07 10:12: 34 Yes alprazolam 0.5 mg tablet [facility] baclofen 10 mg tablet 2021-07 10:12: 34 Yes baclofen 10 mg tablet Take 1 tablet every 12 hours by oral route as needed for 30 days. [facility] busPIRone 15 mg tablet 2021-07 10:12: 34 Yes buspirone 15 mg tablet [facility] busPIRone 30 mg tablet 2021-07 10:12: 34 Yes buspirone 30 mg tablet [facility] citalopram 20 mg tablet 2021-07 10:12: 34 Yes citalopram 20 mg tablet [facility] Diclofenac Sodium 1 % gel 2021-07 10:12: 34 Yes diclofenac 1 % topical gel [facility] etodolac 500 mg tablet 2021-07 10:12: 34 Yes etodolac 500 mg tablet TAKE ONE TABLET BY MOUTH TWICE A DAY NEEDED [facility] FLUoxetine 40 mg capsule 2021-07 10:12: 34 Yes fluoxetine 40 mg capsule [facility] HYDROcodone -acetaminop hen 7.5-325 mg per tablet 2021-07 10:12: 34 Yes hydrocodon e 7.5 mg-acetami nophen 325 mg tablet [facility] tiZANidine 4 mg tablet 2021-07 10:12: 34 Yes tizanidine 4 mg tablet Take 1 tablet every 12 hours by oral route as needed for 30 days. [facility] ALPRAZolam 0.5 mg tablet 2021-07 10:12: 34 Yes alprazolam 0.5 mg tablet [facility] baclofen 10 mg tablet 2021-07 10:12: 34 Yes baclofen 10 mg tablet Take 1 tablet every 12 hours by oral route as needed for 30 days. [facility] busPIRone 15 mg tablet 2021-07 10:12: 34 Yes buspirone 15 mg tablet [facility] busPIRone 30 mg tablet 2021-07 10:12: 34 Yes buspirone 30 mg tablet [facility] citalopram 20 mg tablet 2021-07 10:12: 34 Yes citalopram 20 mg tablet [facility] Diclofenac Sodium 1 % gel 2021-07 10:12: 34 Yes diclofenac 1 % topical gel [facility] etodolac 500 mg tablet 2021-07 10:12: 34 Yes etodolac 500 mg tablet TAKE ONE TABLET BY MOUTH TWICE A DAY NEEDED [facility] FLUoxetine 40 mg capsule 2021-07 10:12: 34 Yes fluoxetine 40 mg capsule [facility] HYDROcodone -acetaminop hen 7.5-325 mg per tablet 2021-07 10:12: 34 Yes hydrocodon e 7.5 mg-acetami nophen 325 mg tablet [facility] tiZANidine 4 mg tablet 2021-07 10:12: 34 Yes tizanidine 4 mg tablet Take 1 tablet every 12 hours by oral route as needed for 30 days. [facility] ALPRAZolam 0.5 mg tablet 2021-07 10:12: 34 Yes alprazolam 0.5 mg tablet [facility] baclofen 10 mg tablet 2021-07 10:12: 34 Yes baclofen 10 mg tablet Take 1 tablet every 12 hours by oral route as needed for 30 days. [facility] busPIRone 15 mg tablet 2021-07 10:12: 34 Yes buspirone 15 mg tablet [facility] busPIRone 30 mg tablet 2021-07 10:12: 34 Yes buspirone 30 mg tablet [facility] citalopram 20 mg tablet 2021-07 10:12: 34 Yes citalopram 20 mg tablet [facility] Diclofenac Sodium 1 % gel 2021-07 10:12: 34 Yes diclofenac 1 % topical gel [facility] etodolac 500 mg tablet 2021-07 10:12: 34 Yes etodolac 500 mg tablet TAKE ONE TABLET BY MOUTH TWICE A DAY NEEDED [facility] FLUoxetine 40 mg capsule 2021-07 10:12: 34 Yes fluoxetine 40 mg capsule [facility] HYDROcodone -acetaminop hen 7.5-325 mg per tablet 2021-07 10:12: 34 Yes hydrocodon e 7.5 mg-acetami nophen 325 mg tablet [facility] tiZANidine 4 mg tablet 2021-07 10:12: 34 Yes tizanidine 4 mg tablet Take 1 tablet every 12 hours by oral route as needed for 30 days. [facility] ALPRAZolam 0.5 mg tablet 2021-07 10:12: 34 Yes alprazolam 0.5 mg tablet [facility] baclofen 10 mg tablet 2021-07 10:12: 34 Yes baclofen 10 mg tablet Take 1 tablet every 12 hours by oral route as needed for 30 days. [facility] busPIRone 15 mg tablet 2021-07 10:12: 34 Yes buspirone 15 mg tablet [facility] busPIRone 30 mg tablet 2021-07 10:12: 34 Yes buspirone 30 mg tablet [facility] citalopram 20 mg tablet 2021-07 10:12: 34 Yes citalopram 20 mg tablet [facility] Diclofenac Sodium 1 % gel 2021-07 10:12: 34 Yes diclofenac 1 % topical gel [facility] etodolac 500 mg tablet 2021-07 10:12: 34 Yes etodolac 500 mg tablet TAKE ONE TABLET BY MOUTH TWICE A DAY NEEDED [facility] FLUoxetine 40 mg capsule 2021-07 10:12: 34 Yes fluoxetine 40 mg capsule [facility] HYDROcodone -acetaminop hen 7.5-325 mg per tablet 2021-07 10:12: 34 Yes hydrocodon e 7.5 mg-acetami nophen 325 mg tablet [facility] tiZANidine 4 mg tablet 2021-07 10:12: 34 Yes tizanidine 4 mg tablet Take 1 tablet every 12 hours by oral route as needed for 30 days. [facility] ALPRAZolam 0.5 mg tablet 2021-07 10:12: 34 Yes alprazolam 0.5 mg tablet [facility] baclofen 10 mg tablet 2021-07 10:12: 34 Yes baclofen 10 mg tablet Take 1 tablet every 12 hours by oral route as needed for 30 days. [facility] busPIRone 15 mg tablet 2021-07 10:12: 34 Yes buspirone 15 mg tablet [facility] busPIRone 30 mg tablet 2021-07 10:12: 34 Yes buspirone 30 mg tablet [facility] citalopram 20 mg tablet 2021-07 10:12: 34 Yes citalopram 20 mg tablet [facility] Diclofenac Sodium 1 % gel 2021-07 10:12: 34 Yes diclofenac 1 % topical gel [facility] etodolac 500 mg tablet 2021-07 10:12: 34 Yes etodolac 500 mg tablet TAKE ONE TABLET BY MOUTH TWICE A DAY NEEDED [facility] FLUoxetine 40 mg capsule 2021-07 10:12: 34 Yes fluoxetine 40 mg capsule [facility] HYDROcodone -acetaminop hen 7.5-325 mg per tablet 2021-07 10:12: 34 Yes hydrocodon e 7.5 mg-acetami nophen 325 mg tablet [facility] tiZANidine 4 mg tablet 2021-07 10:12: 34 Yes tizanidine 4 mg tablet Take 1 tablet every 12 hours by oral route as needed for 30 days. [facility] riTUXimab (RITUXAN) 1,000 mg in NaCl 0.9% (NS) 1,000 mL infusion 2021-07 15:30: 00 06-03 19:45 :00 No [id number] 1000mg 1,000 mg, IV Infusion, ONCE, On [...] d 30 minutes prior to each infusion. [place] [facility] (e.g., glucocorti coids, epinephrin e, [...] in patients receiving Rituximab. &nbs p;
[facility] riTUXimab (RITUXAN) 1,000 mg in NaCl 0.9% (NS) 1,000 mL infusion 2021-07 15:30: 00 06-03 19:45 :00 No [id number] 1000mg 1,000 mg, IV Infusion, ONCE, On [...] d 30 minutes prior to each infusion. [facility] (e.g., glucocorti coids, epinephrin e, [...] in patients receiving Rituximab. &nbs p;
[facility] riTUXimab (RITUXAN) 1,000 mg in NaCl 0.9% (NS) 1,000 mL infusion 2021-07 15:30: 00 06-03 19:45 :00 No [id number] 1000mg 1,000 mg, IV Infusion, ONCE, On [...] d 30 minutes prior to each infusion. [facility] (e.g., glucocorti coids, epinephrin e, [...] occur in patients receiving Rituximab. &nbs p;
[facility] diphenhydrA MINE (BENADRYL) tablet 25 mg 2021-07 14:45: 00 06-03 14:39 :00 No [id number] 25mg 25 mg, Oral, ONCE, 1 dose, On [facility] 06/03/22 at 0845, Routine [facility] acetaminoph en (TYLENOL) tablet 650 mg 2021-07 14:45: 00 06-03 14:39 :00 No [id number] 650mg 650 mg, Oral, ONCE, 1 dose, On [facility] 06/03/22 at 0845, Routine [facility] diphenhydrA MINE (BENADRYL) tablet 25 mg 2021-07 14:45: 00 06-03 14:39 :00 No [id number] 25mg 25 mg, Oral, ONCE, 1 dose, On [facility] 06/03/22 at 0845, Routine [facility] acetaminoph en (TYLENOL) tablet 650 mg 2021-07 14:45: 00 06-03 14:39 :00 No [id number] 650mg 650 mg, Oral, ONCE, 1 dose, On [facility] 06/03/22 at 0845, Routine [facility] diphenhydrA MINE (BENADRYL) tablet 25 mg 2021-07 14:45: 00 06-03 14:39 :00 No [id number] 25mg 25 mg, Oral, ONCE, 1 dose, On [facility] 06/03/22 at 0845, Routine [facility] acetaminoph en (TYLENOL) tablet 650 mg 2021-07 14:45: 00 06-03 14:39 :00 No [id number] 650mg 650 mg, Oral, ONCE, 1 dose, On [facility] 06/03/22 at 0845, Routine [facility] ibuprofen (ADVIL) 200 mg tablet 2021-07 14:12: 18 06-03 00:00 :00 No 200mg Take 200 mg by mouth 2 (two) times daily with meals. [facility] ibuprofen (ADVIL) 200 mg tablet 2021-07 14:12: 18 06-03 00:00 :00 No 200mg Take 200 mg by mouth 2 (two) times daily with meals. [facility] ibuprofen (ADVIL) 200 mg tablet 2021-07 14:12: 18 06-03 00:00 :00 No 200mg Take 200 mg by mouth 2 (two) times daily with meals. [facility] ibuprofen (ADVIL) 200 mg tablet 2021-07 14:12: 18 06-03 00:00 :00 No 200mg Take 200 mg by mouth 2 (two) times daily with meals. [facility] ibuprofen (ADVIL) 200 mg tablet 2021-07 14:12: 18 06-03 00:00 :00 No 200mg Take 200 mg by mouth 2 (two) times daily with meals. [facility] ibuprofen (ADVIL) 200 mg tablet 2021-07 14:12: 18 06-03 00:00 :00 No 200mg Take 200 mg by mouth 2 (two) times daily with meals. [facility] ibuprofen (ADVIL) 200 mg tablet 2021-07 14:12: 18 06-03 00:00 :00 No 200mg Take 200 mg by mouth 2 (two) times daily with meals. [facility] ibuprofen (ADVIL) 200 mg tablet 2021-07 14:12: 18 06-03 00:00 :00 No 200mg Take 200 mg by mouth 2 (two) times daily with meals. [facility] diphenhydrA MINE 25 mg tablet 2021-07 00:00: 00 Yes [id number] 25mg Take 1 tablet by mouth as needed for Allergies (Before infusion). [facility] diphenhydrA MINE 25 mg tablet 2021-07 00:00: 00 Yes [id number] 25mg Take 1 tablet by mouth as needed for Allergies (Before infusion). [facility] diphenhydrA MINE 25 mg tablet 2021-07 00:00: 00 Yes [id number] 25mg Take 1 tablet by mouth as needed for Allergies (Before infusion). [facility] diphenhydrA MINE 25 mg tablet 2021-07 00:00: 00 Yes [id number] 25mg Take 1 tablet by mouth as needed for Allergies (Before infusion). [facility] diphenhydrA MINE 25 mg tablet 2021-07 00:00: 00 Yes [id number] 25mg Take 1 tablet by mouth as needed for Allergies (Before infusion). [facility] diphenhydrA MINE 25 mg tablet 2021-07 00:00: 00 Yes [id number] 25mg Take 1 tablet by mouth as needed for Allergies (Before infusion). [facility] diphenhydrA MINE 25 mg tablet 2021-07 00:00: 00 Yes [id number] 25mg Take 1 tablet by mouth as needed for Allergies (Before infusion). [facility] diphenhydrA MINE 25 mg tablet 2021-07 00:00: 00 Yes [id number] 25mg Take 1 tablet by mouth as needed for Allergies (Before infusion). [facility] acetaminoph en (TYLENOL) 325 mg tablet 2021-07 00:00: 00 05-29 04:59 :00 No [id number] 650mg Take 2 tablets by mouth as needed (Before infusion). [facility] acetaminoph en (TYLENOL) 325 mg tablet 2021-07 00:00: 00 05-29 04:59 :00 No [id number] 650mg Take 2 tablets by mouth as needed (Before infusion). [facility] acetaminoph en (TYLENOL) 325 mg tablet 2021-07 00:00: 00 05-29 04:59 :00 No [id number] 650mg Take 2 tablets by mouth as needed (Before infusion). [facility] acetaminoph en (TYLENOL) 325 mg tablet 2021-07 00:00: 00 05-29 04:59 :00 No [id number] 650mg Take 2 tablets by mouth as needed (Before infusion). [facility] acetaminoph en (TYLENOL) 325 mg tablet 2021-07 00:00: 00 05-29 04:59 :00 No [id number] 650mg Take 2 tablets by mouth as needed (Before infusion). [facility] acetaminoph en (TYLENOL) 325 mg tablet 2021-07 00:00: 00 05-29 04:59 :00 No [id number] 650mg Take 2 tablets by mouth as needed (Before infusion). [facility] acetaminoph en (TYLENOL) 325 mg tablet 2021-07 00:00: 00 05-29 04:59 :00 No [id number] 650mg Take 2 tablets by mouth as needed (Before infusion). [facility] acetaminoph en (TYLENOL) 325 mg tablet 2021-07 00:00: 00 05-29 04:59 :00 No [id number] 650mg Take 2 tablets by mouth as needed (Before infusion). [facility] [facility] acet[facility]oph en (TYLENOL) 325 mg tablet 2021-07 00:00: 00 05-29 04:59 :00 No [id number] 650mg Take 2 tablets by mouth as needed (Before infusion). [facility] acetaminoph en (TYLENOL) 325 mg tablet 2021-07 00:00: 05-29 04:59 :00 No [id number] 650mg Take 2 tablets by mouth as needed (Before infusion). [facility] acetaminoph en (TYLENOL) 325 mg tablet 2021-07 00:00: 00 05-29 04:59 :00 No [id number] 650mg Take 2 tablets by mouth as needed (Before infusion). [facility] acetaminoph en (TYLENOL) 325 mg tablet 2021-07 00:00: 00 05-29 04:59 :00 No [id number] 650mg Take 2 tablets by mouth as needed (Before infusion). [facility] acetaminoph en (TYLENOL) 325 mg tablet 2021-07 00:00: 00 05-29 04:59 :00 No [id number] 650mg Take 2 tablets by mouth as needed (Before infusion). [facility] acetaminoph en (TYLENOL) 325 mg tablet 2021-07 00:00: 00 05-29 04:59 :00 No [id number] 650mg Take 2 tablets by mouth as needed (Before infusion). [facility] acetaminoph en (TYLENOL) 325 mg tablet 2021-07 00:00: 00 05-29 04:59 :00 No [id number] 650mg Take 2 tablets by mouth as needed (Before infusion). [facility] acetaminoph en (TYLENOL) 325 mg tablet 2021-07 00:00: 00 05-29 04:59 :00 No [id number] 650mg Take 2 tablets by mouth as needed (Before infusion). [facility] acetaminoph en (TYLENOL) 325 mg tablet 2021-07 00:00: 00 05-29 04:59 :00 No [id number] 650mg Take 2 tablets by mouth as needed (Before infusion). [facility] acetaminoph en (TYLENOL) 325 mg tablet 2021-07 00:00: 00 05-29 04:59 :00 No [id number] 650mg Take 2 tablets by mouth as needed (Before infusion). [facility] acetaminoph en (TYLENOL) 325 mg tablet 2021-07 00:00: 00 05-29 04:59 :00 No [id number] 650mg Take 2 tablets by mouth as needed (Before infusion). [facility] acetaminoph en (TYLENOL) 325 mg tablet 2021-07 00:00: 00 05-29 04:59 :00 No [id number] 650mg Take 2 tablets by mouth as needed (Before infusion). [facility] acetaminoph en (TYLENOL) 325 mg tablet 2021-07 00:00: 00 05-29 04:59 :00 No [id number] 650mg Take 2 tablets by mouth as needed (Before infusion). [facility] acetaminoph en (TYLENOL) 325 mg tablet 2021-07 00:00: 00 05-29 04:59 :00 No [id number] 650mg Take 2 tablets by mouth as needed (Before infusion). [facility] acetaminoph en (TYLENOL) 325 mg tablet 2021-07 00:00: 00 05-29 04:59 :00 No [id number] 650mg Take 2 tablets by mouth as needed (Before infusion). [facility] acetaminoph en (TYLENOL) 325 mg tablet 2021-07 00:00: 00 05-29 04:59 :00 No [id number] 650mg Take 2 tablets by mouth as needed (Before infusion). [facility] acetaminoph en (TYLENOL) 325 mg tablet 2021-07 00:00: 00 05-29 04:59 :00 No [id number] 650mg Take 2 tablets by mouth as needed (Before infusion). [facility] acetaminoph en (TYLENOL) 325 mg tablet 2021-07 00:00: 00 05-29 04:59 :00 No [id number] 650mg Take 2 tablets by mouth as needed (Before infusion). [facility] acetaminoph en (TYLENOL) 325 mg tablet 2021-07 00:00: 00 05-29 04:59 :00 No [id number] 650mg Take 2 tablets by mouth as needed (Before infusion). [facility] acetaminoph en (TYLENOL) 325 mg tablet 2021-07 00:00: 00 05-29 04:59 :00 No [id number] 650mg Take 2 tablets by mouth as needed (Before infusion). [facility] acetaminoph en (TYLENOL) 325 mg tablet 2021-07 00:00: 00 05-29 04:59 :00 No [id number] 650mg Take 2 tablets by mouth as needed (Before infusion). [facility] acetaminoph en (TYLENOL) 325 mg tablet 2021-07 00:00: 00 05-29 04:59 :00 No [id number] 650mg Take 2 tablets by mouth as needed (Before infusion). [facility] acetaminoph en (TYLENOL) 325 mg tablet 2021-07 00:00: 00 05-29 04:59 :00 No [id number] 650mg Take 2 tablets by mouth as needed (Before infusion). [facility] acetaminoph en (TYLENOL) 325 mg tablet 2021-07 00:00: 00 05-29 04:59 :00 No [id number] 650mg Take 2 tablets by mouth as needed (Before infusion). [facility] acetaminoph en (TYLENOL) 325 mg tablet 2021-07 00:00: 00 05-29 04:59 :00 No [id number] 650mg Take 2 tablets by mouth as needed (Before infusion). [facility] acetaminoph en (TYLENOL) 325 mg tablet 2021-07 00:00: 00 05-29 04:59 :00 No [id number] 650mg Take 2 tablets by mouth as needed (Before infusion). [facility] acetaminoph en (TYLENOL) 325 mg tablet 2021-07 00:00: 00 05-29 04:59 :00 No [id number] 650mg Take 2 tablets by mouth as needed (Before infusion). [facility] acetaminoph en (TYLENOL) 325 mg tablet 2021-07 00:00: 00 05-29 04:59 :00 No [id number] 650mg Take 2 tablets by mouth as needed (Before infusion). [facility] acetaminoph en (TYLENOL) 325 mg tablet 2021-07 00:00: 00 05-29 04:59 :00 No [id number] 650mg Take 2 tablets by mouth as needed (Before infusion). [facility] acetaminoph en (TYLENOL) 325 mg tablet 2021-07 00:00: 00 05-29 04:59 :00 No [id number] 650mg Take 2 tablets by mouth as needed (Before infusion). [facility] acetaminoph en (TYLENOL) 325 mg tablet 2021-07 00:00: 00 05-29 04:59 :00 No [id number] 650mg Take 2 tablets by mouth as needed (Before infusion). [facility] acetaminoph en (TYLENOL) 325 mg tablet 2021-07 00:00: 00 05-29 04:59 :00 No [id number] 650mg Take 2 tablets by mouth as needed (Before infusion). [facility] acetaminoph en (TYLENOL) 325 mg tablet 2021-07 00:00: 00 05-29 04:59 :00 No [id number] 650mg Take 2 tablets by mouth as needed (Before infusion). [facility] acetaminoph en (TYLENOL) 325 mg tablet 2021-07 00:00: 00 05-29 04:59 :00 No [id number] 650mg Take 2 tablets by mouth as needed (Before infusion). [facility] acetaminoph en (TYLENOL) 325 mg tablet 2021-07 00:00: 00 05-29 04:59 :00 No [id number] 650mg Take 2 tablets by mouth as needed (Before infusion). [facility] acetaminoph en (TYLENOL) 325 mg tablet 2021-07 00:00: 05-29 04:59 :00 No [id number] 650mg Take 2 tablets by mouth as needed (Before infusion). [facility] acetaminoph en (TYLENOL) 325 mg tablet 2021-07 00:00: 00 05-29 04:59 :00 No [id number] 650mg Take 2 tablets by mouth as needed (Before infusion). [facility] acetaminoph en (TYLENOL) 325 mg tablet 2021-07 00:00: 00 03-21 00:00 :00 No [id number] 650mg Take 2 tablets by mouth as needed (Before infusion). [facility] diphenhydrA MINE 25 mg tablet 2021-07 00:00: 00 08-12 00:00 :00 No [id number] 25mg Take 1 tablet by mouth as needed for Allergies (Before infusion). [facility] diphenhydrA MINE 25 mg tablet 2021-07 00:00: 08-12 00:00 :00 No [id number] 25mg Take 1 tablet by mouth as needed for Allergies (Before infusion). [facility] riTUXimab (RITUXAN) 1,000 mg in NaCl 0.9% (NS) 1,000 mL infusion 2021-07 16:00: 00 05-20 21:37 :00 No [id number] 1000mg 1,000 mg, IV Infusion, ONCE, On [...] d 30 minutes prior to each infusion. [facility] (e.g., glucocorti coids, epinephrin e, [...] in patients receiving Rituximab. &nbs p;
[facility] riTUXimab (RITUXAN) 1,000 mg in NaCl 0.9% (NS) 1,000 mL infusion 2021-07 16:00: 00 05-20 21:37 :00 No [id number] 1000mg 1,000 mg, IV Infusion, ONCE, On [...] d 30 minutes prior to each infusion. [facility] (e.g., glucocorti coids, epinephrin e, [...] in patients receiving Rituximab. &nbs p;
[facility] riTUXimab (RITUXAN) 1,000 mg in NaCl 0.9% (NS) 1,000 mL infusion 2021-07 16:00: 00 05-20 21:37 :00 No [id number] 1000mg 1,000 mg, IV Infusion, ONCE, On [...] d 30 minutes prior to each infusion. [facility] (e.g., glucocorti coids, epinephrin e, [...] occur in patients receiving Rituximab. &nbs p;
[facility] riTUXimab (RITUXAN) 1,000 mg in NaCl 0.9% (NS) 1,000 mL infusion 2021-07 16:00: 00 05-20 21:37 :00 No [id number] 1000mg 1,000 mg, IV Infusion, ONCE, On [...] d 30 minutes prior to each infusion. [facility] (e.g., glucocorti coids, epinephrin e, [...] occur in patients receiving Rituximab. &nbs p;
[facility] riTUXimab (RITUXAN) 1,000 mg in NaCl 0.9% (NS) 1,000 mL infusion 2021-07 16:00: 00 05-20 21:37 :00 No [id number] 1000mg 1,000 mg, IV Infusion, ONCE, On [...] d 30 minutes prior to each infusion. [facility] (e.g., glucocorti coids, epinephrin e, [...] occur in patients receiving Rituximab. &nbs p;
[facility] diphenhydrA MINE (BENADRYL) tablet 25 mg 2021-07 15:45: 00 05-20 14:50 :00 No [id number] 25mg 25 mg, Oral, ONCE, 1 dose, On [place] 05/20/22 at 1045, [facility] acetaminoph en (TYLENOL) tablet 650 mg 2021-07 15:45: 00 05-20 14:50 :00 No [id number] 650mg 650 mg, Oral, ONCE, 1 dose, On [place] 05/20/22 at 1045, Routine [facility] diphenhydrA MINE (BENADRYL) tablet 25 mg 2021-07 15:45: 00 05-20 14:50 :00 No [id number] 25mg 25 mg, Oral, ONCE, 1 dose, On [place] 05/20/22 at 1045, Routine [facility] acetaminoph en (TYLENOL) tablet 650 mg 2021-07 15:45: 00 05-20 14:50 :00 No [id number] 650mg 650 mg, Oral, ONCE, 1 dose, On [place] 05/20/22 at 1045, [facility] (BENADRYL) tablet 25 mg 2021-07 15:45: 00 05-20 14:50 :00 No [id number] 25mg 25 mg, Oral, ONCE, 1 dose, On [place] 05/20/22 at 1045, Routine [facility] acetaminoph en (TYLENOL) tablet 650 mg 2021-07 15:45: 00 05-20 14:50 :00 No [id number] 650mg 650 mg, Oral, ONCE, 1 dose, On [place] 05/20/22 at 1045, [facility] (BENADRYL) tablet 25 mg 2021-07 15:45: 00 05-20 14:50 :00 No [id number] 25mg 25 mg, Oral, ONCE, 1 dose, On [place] 05/20/22 at 1045, [facility] acetaminoph en (TYLENOL) tablet 650 mg 2021-07 15:45: 00 05-20 14:50 :00 No [id number] 650mg 650 mg, Oral, ONCE, 1 dose, On [place] 05/20/22 at 1045, Routine [facility] diphenhydrA MINE (BENADRYL) tablet 25 mg 2021-07 15:45: 00 05-20 14:50 :00 No [id number] 25mg 25 mg, Oral, ONCE, 1 dose, On [place] 05/20/22 at 1045, Routine [facility] acetaminoph en (TYLENOL) tablet 650 mg 2021-07 15:45: 00 05-20 14:50 :00 No [id number] 650mg 650 mg, Oral, ONCE, 1 dose, On [place] 05/20/22 at 1045, Routine [facility] omega-3s-dh a-epa-fish oil-D3 (FISH OIL-VIT D3) 360 mg-1,200 mg -1,000 unit Cap 2021-07 15:58: 17 Yes Take by mouth. [facility] atorvastati n (LIPITOR) 20 mg tablet 2021-07 15:58: 17 Yes 20mg Take 20 mg by mouth at bedtime. [facility] MULTIVITS-M INERALS/FA/ LYCOPENE (ONE-A-DAY MEN'S MULTIVITAMI N ORAL) 2021-07 15:58: 17 Yes Take by mouth. [facility] ibuprofen (ADVIL) 200 mg tablet 2021-07 15:58: 17 Yes 200mg Take 200 mg by mouth 2 (two) times daily with meals. [facility] POTASSIUM-9 9 ORAL 2021-07 15:58: 17 Yes 99mg Take 99 mg by mouth daily. [facility] vitamin B-12 100 mcg tablet 2021-07 15:58: 17 Yes 2500ug Take 2,500 mcg by mouth daily. [facility] omega-3s-dh a-epa-fish oil-D3 (FISH OIL-VIT D3) 360 mg-1,200 mg -1,000 unit Cap 2021-07 15:58: 17 Yes Take by mouth. [facility] atorvastati n (LIPITOR) 20 mg tablet 2021-07 15:58: 17 Yes 20mg Take 20 mg by mouth at bedtime. [facility] MULTIVITS-M INERALS/FA/ LYCOPENE (ONE-A-DAY MEN'S MULTIVITAMI N ORAL) 2021-07 0 15:58: 17 Yes Take by mouth. [facility] ibuprofen (ADVIL) 200 mg tablet 2021-07 15:58: 17 Yes 200mg Take 200 mg by mouth 2 (two) times daily with meals. [facility] POTASSIUM-9 9 ORAL 2021-0715 15:58: 17 Yes 99mg Take 99 mg by mouth daily. [facility] vitamin B-12 100 mcg tablet 2021-07 15:58: 17 Yes 2500ug Take 2,500 mcg by mouth daily. [facility] omega-3s-dh a-epa-fish oil-D3 (FISH OIL-VIT D3) 360 mg-1,200 mg -1,000 unit Cap 2021-0715 15:58: 17 Yes Take by mouth. [facility] atorvastati n (LIPITOR) 20 mg tablet 2021-07 15:58: 17 Yes 20mg Take 20 mg by mouth at bedtime. [facility] MULTIVITS-M INERALS/FA/ LYCOPENE (ONE-A-DAY MEN'S MULTIVITAMI N ORAL) 2021-07 15:58: 17 Yes Take by mouth. [facility] ibuprofen (ADVIL) 200 mg tablet 2021-07 15:58: 17 Yes 200mg Take 200 mg by mouth 2 (two) times daily with meals. [facility] POTASSIUM-9 9 ORAL 2021-07 15:58: 17 Yes 99mg Take 99 mg by mouth daily. [facility] vitamin B-12 100 mcg tablet 2021-0715 15:58: 17 Yes 2500ug Take 2,500 mcg by mouth daily. [facility] omega-3s-dh a-epa-fish oil-D3 (FISH OIL-VIT D3) 360 mg-1,200 mg -1,000 unit Cap 2021-07 015 15:58: 17 Yes Take by mouth. [facility] atorvastati n (LIPITOR) 20 mg tablet 2021-07 15:58: 17 Yes 20mg Take 20 mg by mouth at bedtime. [facility] MULTIVITS-M INERALS/FA/ LYCOPENE (ONE-A-DAY MEN'S MULTIVITAMI N ORAL) 2021-07 0 15:58: 17 Yes Take by mouth. [facility] ibuprofen (ADVIL) 200 mg tablet 2021-07 15:58: 17 Yes 200mg Take 200 mg by mouth 2 (two) times daily with meals. [facility] POTASSIUM-9 9 ORAL 2021-0715 15:58: 17 Yes 99mg Take 99 mg by mouth daily. [facility] vitamin B-12 100 mcg tablet 2021-07 15:58: 17 Yes 2500ug Take 2,500 mcg by mouth daily. [facility] omega-3s-dh a-epa-fish oil-D3 (FISH OIL-VIT D3) 360 mg-1,200 mg -1,000 unit Cap 2021-0715 15:58: 17 Yes Take by mouth. [facility] atorvastati n (LIPITOR) 20 mg tablet 2021-07 15:58: 17 Yes 20mg Take 20 mg by mouth at bedtime. [facility] MULTIVITS-M INERALS/FA/ LYCOPENE (ONE-A-DAY MEN'S MULTIVITAMI N ORAL) 2021-07 15:58: 17 Yes Take by mouth. [facility] ibuprofen (ADVIL) 200 mg tablet 2021-07 15:58: 17 Yes 200mg Take 200 mg by mouth 2 (two) times daily with meals. [facility] POTASSIUM-9 9 ORAL 2021-0715 15:58: 17 Yes 99mg Take 99 mg by mouth daily. [facility] vitamin B-12 100 mcg tablet 2021-07 15:58: 17 Yes 2500ug Take 2,500 mcg by mouth daily. [facility] omega-3s-dh a-epa-fish oil-D3 (FISH OIL-VIT D3) 360 mg-1,200 mg -1,000 unit Cap 2021-07 015 15:58: 17 Yes Take by mouth. [facility] atorvastati n (LIPITOR) 20 mg tablet 2021-0715 15:58: 17 Yes 20mg Take 20 mg by mouth at bedtime. [facility] MULTIVITS-M INERALS/FA/ LYCOPENE (ONE-A-DAY MEN'S MULTIVITAMI N ORAL) 2021-07 0 15:58: 17 Yes Take by mouth. [facility] ibuprofen (ADVIL) 200 mg tablet 2021-07 15:58: 17 Yes 200mg Take 200 mg by mouth 2 (two) times daily with meals. [facility] POTASSIUM-9 9 ORAL 2021-07 015 15:58: 17 Yes 99mg Take 99 mg by mouth daily. [facility] vitamin B-12 100 mcg tablet 2021-07 15:58: 17 Yes 2500ug Take 2,500 mcg by mouth daily. [facility] omega-3s-dh a-epa-fish oil-D3 (FISH OIL-VIT D3) 360 mg-1,200 mg -1,000 unit Cap 2021-0715 15:58: 17 Yes Take by mouth. [facility] atorvastati n (LIPITOR) 20 mg tablet 2021-07 15:58: 17 Yes 20mg Take 20 mg by mouth at bedtime. [facility] MULTIVITS-M INERALS/FA/ LYCOPENE (ONE-A-DAY MEN'S MULTIVITAMI N ORAL) 2021-0715 15:58: 17 Yes Take by mouth. [facility] ibuprofen (ADVIL) 200 mg tablet 2021-07 15:58: 17 Yes 200mg Take 200 mg by mouth 2 (two) times daily with meals. [facility] POTASSIUM-9 9 ORAL 2021-07 015 15:58: 17 Yes 99mg Take 99 mg by mouth daily. [facility] vitamin B-12 100 mcg tablet 2021-0715 15:58: 17 Yes 2500ug Take 2,500 mcg by mouth daily. [facility] omega-3s-dh a-epa-fish oil-D3 (FISH OIL-VIT D3) 360 mg-1,200 mg -1,000 unit Cap 2021-07 015 15:58: 17 Yes Take by mouth. [facility] atorvastati n (LIPITOR) 20 mg tablet 2021-07 15:58: 17 Yes 20mg Take 20 mg by mouth at bedtime. [facility] MULTIVITS-M INERALS/FA/ LYCOPENE (ONE-A-DAY MEN'S MULTIVITAMI N ORAL) 2021-07 15:58: 17 Yes Take by mouth. [facility] ibuprofen (ADVIL) 200 mg tablet 2021-07 15:58: 17 Yes 200mg Take 200 mg by mouth 2 (two) times daily with meals. [facility] POTASSIUM-9 9 ORAL 2021-07 15:58: 17 Yes 99mg Take 99 mg by mouth daily. [facility] vitamin B-12 100 mcg tablet 2021-07 15:58: 17 Yes 2500ug Take 2,500 mcg by mouth daily. [facility] omega-3s-dh a-epa-fish oil-D3 (FISH OIL-VIT D3) 360 mg-1,200 mg -1,000 unit Cap 2021-0715 15:58: 17 Yes Take by mouth. [facility] atorvastati n (LIPITOR) 20 mg tablet 2021-07 15:58: 17 Yes 20mg Take 20 mg by mouth at bedtime. [facility] MULTIVITS-M INERALS/FA/ LYCOPENE (ONE-A-DAY MEN'S MULTIVITAMI N ORAL) 2021-07 15:58: 17 Yes Take by mouth. [facility] POTASSIUM-9 9 ORAL 2021-07 15:58: 17 Yes 99mg Take 99 mg by mouth daily. [facility] vitamin B-12 100 mcg tablet 2022-1 0-15 15:58: 17 Yes 2500ug Take 2,500 mcg by mouth daily. [facility] omega-3s-dh a-epa-fish oil-D3 (FISH OIL-VIT D3) 360 mg-1,200 mg -1,000 unit Cap 2021-07 015 15:58: 17 Yes Take by mouth. [facility] atorvastati n (LIPITOR) 20 mg tablet 2021-07 015 15:58: 17 Yes 20mg Take 20 mg by mouth at bedtime. [facility] MULTIVITS-M INERALS/FA/ LYCOPENE (ONE-A-DAY MEN'S MULTIVITAMI N ORAL) 2021-07 015 15:58: 17 Yes Take by mouth. [facility] POTASSIUM-9 9 ORAL 2021-07 0 15:58: 17 Yes 99mg Take 99 mg by mouth daily. [facility] vitamin B-12 100 mcg tablet 2021-07 0 15:58: 17 Yes 2500ug Take 2,500 mcg by mouth daily. [facility] omega-3s-dh a-epa-fish oil-D3 (FISH OIL-VIT D3) 360 mg-1,200 mg -1,000 unit Cap 2021-07 015 15:58: 17 Yes Take by mouth. [facility] atorvastati n (LIPITOR) 20 mg tablet 2021-07 015 15:58: 17 Yes 20mg Take 20 mg by mouth at bedtime. [facility] MULTIVITS-M INERALS/FA/ LYCOPENE (ONE-A-DAY MEN'S MULTIVITAMI N ORAL) 2021-07 015 15:58: 17 Yes Take by mouth. [facility] POTASSIUM-9 9 ORAL 2021-07 015 15:58: 17 Yes 99mg Take 99 mg by mouth daily. [facility] vitamin B-12 100 mcg tablet 2021-07 15:58: 17 Yes 2500ug Take 2,500 mcg by mouth daily. [facility] omega-3s-dh a-epa-fish oil-D3 (FISH OIL-VIT D3) 360 mg-1,200 mg -1,000 unit Cap 2021-07 0-15 15:58: 17 Yes Take by mouth. [facility] atorvastati n (LIPITOR) 20 mg tablet 2021-07 0 15:58: 17 Yes 20mg Take 20 mg by mouth at bedtime. [facility] MULTIVITS-M INERALS/FA/ LYCOPENE (ONE-A-DAY MEN'S MULTIVITAMI N ORAL) 2021-07 0 15:58: 17 Yes Take by mouth. [facility] POTASSIUM-9 9 ORAL 2021-07 0 15:58: 17 Yes 99mg Take 99 mg by mouth daily. [facility] vitamin B-12 100 mcg tablet 2021-07 15:58: 17 Yes 2500ug Take 2,500 mcg by mouth daily. [facility] omega-3s-dh a-epa-fish oil-D3 (FISH OIL-VIT D3) 360 mg-1,200 mg -1,000 unit Cap 2021-07 015 15:58: 17 Yes Take by mouth. [facility] atorvastati n (LIPITOR) 20 mg tablet 2021-07 15:58: 17 Yes 20mg Take 20 mg by mouth at bedtime. [facility] MULTIVITS-M INERALS/FA/ LYCOPENE (ONE-A-DAY MEN'S MULTIVITAMI N ORAL) 2021-07 0 15:58: 17 Yes Take by mouth. [facility] POTASSIUM-9 9 ORAL 2021-07 15:58: 17 Yes 99mg Take 99 mg by mouth daily. [facility] vitamin B-12 100 mcg tablet 2021-0715 15:58: 17 Yes 2500ug Take 2,500 mcg by mouth daily. [facility] omega-3s-dh a-epa-fish oil-D3 (FISH OIL-VIT D3) 360 mg-1,200 mg -1,000 unit Cap 2021-07 015 15:58: 17 Yes Take by mouth. [facility] atorvastati n (LIPITOR) 20 mg tablet 2021-07 015 15:58: 17 Yes 20mg Take 20 mg by mouth at bedtime. [facility] MULTIVITS-M INERALS/FA/ LYCOPENE (ONE-A-DAY MEN'S MULTIVITAMI N ORAL) 2021-07 015 15:58: 17 Yes Take by mouth. [facility] POTASSIUM-9 9 ORAL 2021-07 015 15:58: 17 Yes 99mg Take 99 mg by mouth daily. [facility] vitamin B-12 100 mcg tablet 2021-07 015 15:58: 17 Yes 2500ug Take 2,500 mcg by mouth daily. [facility] omega-3s-dh a-epa-fish oil-D3 (FISH OIL-VIT D3) 360 mg-1,200 mg -1,000 unit Cap 2021-07 015 15:58: 17 Yes Take by mouth. [facility] atorvastati n (LIPITOR) 20 mg tablet 2021-07 015 15:58: 17 Yes 20mg Take 20 mg by mouth at bedtime. [facility] MULTIVITSM INERALS/FA/ LYCOPENE (ONE-A-DAY MEN'S MULTIVITAMI N ORAL) 2021-07 0 15:58: 17 Yes Take by mouth. [facility] POTASSIUM-9 9 ORAL 2021-07 0 15:58: 17 Yes 99mg Take 99 mg by mouth daily. [facility] vitamin B-12 100 mcg tablet 2021-07 015 15:58: 17 Yes 2500ug Take 2,500 mcg by mouth daily. [facility] omega-3s-dh a-epa-fish oil-D3 (FISH OIL-VIT D3) 360 mg-1,200 mg -1,000 unit Cap 2021-07 015 15:58: 17 Yes Take by mouth. [facility] atorvastati n (LIPITOR) 20 mg tablet 2021-07 015 15:58: 17 Yes 20mg Take 20 mg by mouth at bedtime. [facility] MULTIVITS-M INERALS/FA/ LYCOPENE (ONE-A-DAY MEN'S MULTIVITAMI N ORAL) 2021-07 015 15:58: 17 Yes Take by mouth. [facility] POTASSIUM-9 9 ORAL 2021-07 015 15:58: 17 Yes 99mg Take 99 mg by mouth daily. [facility] vitamin B-12 100 mcg tablet 2021-07 015 15:58: 17 Yes 2500ug Take 2,500 mcg by mouth daily. [facility] omega-3s-dh a-epa-fish oil-D3 (FISH OIL-VIT D3) 360 mg-1,200 mg -1,000 unit Cap 2021-07 0-15 15:58: 17 Yes Take by mouth. [facility] atorvastati n (LIPITOR) 20 mg tablet 2021-07 15:58: 17 Yes 20mg Take 20 mg by mouth at bedtime. [facility] MULTIVITS-M INERALS/FA/ LYCOPENE (ONE-A-DAY MEN'S MULTIVITAMI N ORAL) 2021-07 015 15:58: 17 Yes Take by mouth. [facility] POTASSIUM-9 9 ORAL 2021-07 0 15:58: 17 Yes 99mg Take 99 mg by mouth daily. [facility] vitamin B-12 100 mcg tablet 2021-07 015 15:58: 17 Yes 2500ug Take 2,500 mcg by mouth daily. [facility] omega-3s-dh a-epa-fish oil-D3 (FISH OIL-VIT D3) 360 mg-1,200 mg -1,000 unit Cap 2021-07 0-15 15:58: 17 Yes Take by mouth. [facility] MULTIVITS-M INERALS/FA/ LYCOPENE (ONE-A-DAY MEN'S MULTIVITAMI N ORAL) 2021-07 015 15:58: 17 Yes Take by mouth. [facility] POTASSIUM-9 9 ORAL 2021-07 015 15:58: 17 Yes 99mg Take 99 mg by mouth daily. [facility] omega-3s-dh a-epa-fish oil-D3 (FISH OIL-VIT D3) 360 mg-1,200 mg -1,000 unit Cap 2021-07 0-15 15:58: 17 Yes Take by mouth. [facility] MULTIVITS-M INERALS/FA/ LYCOPENE (ONE-A-DAY MEN'S MULTIVITAMI N ORAL) 2021-07 015 15:58: 17 Yes Take by mouth. [facility] POTASSIUM-9 9 ORAL 2021-07 015 15:58: 17 Yes 99mg Take 99 mg by mouth daily. [facility] omega-3s-dh a-epa-fish oil-D3 (FISH OIL-VIT D3) 360 mg-1,200 mg -1,000 unit Cap 2021-07 0-15 15:58: 17 Yes Take by mouth. [facility] MULTIVITS-M INERALS/FA/ LYCOPENE (ONE-A-DAY MEN'S MULTIVITAMI N ORAL) 2021-07 015 15:58: 17 Yes Take by mouth. [facility] POTASSIUM-9 9 ORAL 2021-07 015 15:58: 17 Yes 99mg Take 99 mg by mouth daily. [facility] omega-3s-dh a-epa-fish oil-D3 (FISH OIL-VIT D3) 360 mg-1,200 mg -1,000 unit Cap 2021-07 015 15:58: 17 Yes Take by mouth. [facility] MULTIVITS-M INERALS/FA/ LYCOPENE (ONE-A-DAY MEN'S MULTIVITAMI N ORAL) 2021-07 015 15:58: 17 Yes Take by mouth. [facility] POTASSIUM-9 9 ORAL 2021-07 015 15:58: 17 Yes 99mg Take 99 mg by mouth daily. [facility] omega-3s-dh a-epa-fish oil-D3 (FISH OIL-VIT D3) 360 mg-1,200 mg -1,000 unit Cap 2021-07 0-15 15:58: 17 Yes Take by mouth. [facility] MULTIVITS-M INERALS/FA/ LYCOPENE (ONE-A-DAY MEN'S MULTIVITAMI N ORAL) 2021-07 015 15:58: 17 Yes Take by mouth. [facility] POTASSIUM-9 9 ORAL 2021-07 0-15 15:58: 17 Yes 99mg Take 99 mg by mouth daily. [facility] omega-3s-dh a-epa-fish oil-D3 (FISH OIL-VIT D3) 360 mg-1,200 mg -1,000 unit Cap 2021-0715 15:58: 17 Yes Take by mouth. [facility] MULTIVITS-M INERALS/FA/ LYCOPENE (ONE-A-DAY MEN'S MULTIVITAMI N ORAL) 2021-07 0 15:58: 17 Yes Take by mouth. [facility] POTASSIUM-9 9 ORAL 2021-07 15:58: 17 Yes 99mg Take 99 mg by mouth daily. [facility] omega-3s-dh a-epa-fish oil-D3 (FISH OIL-VIT D3) 360 mg-1,200 mg -1,000 unit Cap 2021-07 15:58: 17 Yes Take by mouth. [facility] MULTIVITS-M INERALS/FA/ LYCOPENE (ONE-A-DAY MEN'S MULTIVITAMI N ORAL) 2021-07 15:58: 17 Yes Take by mouth. [facility] POTASSIUM-9 9 ORAL 2021-07 15:58: 17 Yes 99mg Take 99 mg by mouth daily. [facility] hydrALAZINE (APRESOLINE ) tablet 25 mg 2021-07 15:00: 00 Yes 25mg 25 mg, Oral, TID, First dose (after last modificati on) on Tue05/08/22 at 1000, Until Discontinu ed, Routine [facility] gabapentin (NEURONTIN) capsule 300 mg 2021-07 01:00: 00 Yes 300mg 300 mg, Oral, TID, First dose on Tue05/07/22 at 2000, Until Discontinu ed, Routine [facility] azaTHIOprin e 50 mg tablet 2021-07 00:00: 00 Yes [id number] 100mg Take 2 tablets by mouth in the morning. [facility] azaTHIOprin e 50 mg tablet 2021-07 00:00: 00 Yes [id number] 100mg Take 2 tablets by mouth in the morning. [facility] azaTHIOprin e 50 mg tablet 2021-07 00:00: 00 Yes [id number] 100mg Take 2 tablets by mouth in the morning. [facility] azaTHIOprin e 50 mg tablet 2021- 0-15 00:00: 00 Yes [id number] 100mg Take 2 tablets by mouth in the morning. [facility] azaTHIOprin e 50 mg tablet 2021-1 0-15 00:00: 00 Yes [id number] 100mg Take 2 tablets by mouth in the morning. [facility] azaTHIOprin e 50 mg tablet 2021-1 0-15 00:00: 00 Yes [id number] 100mg Take 2 tablets by mouth in the morning. [facility] azaTHIOprin e 50 mg tablet 2021-07 0-15 00:00: 00 Yes [id number] 100mg Take 2 tablets by mouth in the morning. [facility] azaTHIOprin e 50 mg tablet 2021- 0-15 00:00: 00 Yes [id number] 100mg Take 2 tablets by mouth in the morning. [facility] azaTHIOprin e 50 mg tablet 2021- 0-15 00:00: 00 Yes [id number] 100mg Take 2 tablets by mouth in the morning. [facility] azaTHIOprin e 50 mg tablet 2021- 0-15 00:00: 00 Yes [id number] 100mg Take 2 tablets by mouth in the morning. [facility] azaTHIOprin e 50 mg tablet 2021- 0-15 00:00: 00 Yes [id number] 100mg Take 2 tablets by mouth in the morning. [facility] azaTHIOprin e 50 mg tablet 2021- 0-15 00:00: 00 Yes [id number] 100mg Take 2 tablets by mouth in the morning. [facility] azaTHIOprin e 50 mg tablet 2021- 0-15 00:00: 00 Yes [id number] 100mg Take 2 tablets by mouth in the morning. [facility] azaTHIOprin e 50 mg tablet 2021-1 0-15 00:00: 00 Yes [id number] 100mg Take 2 tablets by mouth in the morning. [facility] gabapentin 300 mg capsule 2021-07 0-15 00:00: 00 -14 04:59 :00 No [id number] 300mg Take 1 capsule by mouth in the morning and 1 capsule at noon and 1 capsule in the evening. Do all this for 180 days. [facility] gabapentin 300 mg capsule 2021- 0-15 00:00: 00 11-05 04:59 :00 No [id number] 300mg Take 1 capsule by mouth in the morning and 1 capsule at noon and 1 capsule in the evening. Do all this for 180 days. [facility] gabapentin 300 mg capsule 2021-07 0-15 00:00: 00 11-05 04:59 :00 No [id number] 300mg Take 1 capsule by mouth in the morning and 1 capsule at noon and 1 capsule in the evening. Do all this for 180 days. [facility] gabapentin 300 mg capsule 2021-07 0-15 00:00: 00 11-05 04:59 :00 No [id number] 300mg Take 1 capsule by mouth in the morning and 1 capsule at noon and 1 capsule in the evening. Do all this for 180 days. [facility] gabapentin 300 mg capsule 2021- 0-15 00:00: 00 11-05 04:59 :00 No [id number] 300mg Take 1 capsule by mouth in the morning and 1 capsule at noon and 1 capsule in the evening. Do all this for 180 days. [facility] gabapentin 300 mg capsule 2021-07 0-15 00:00: 00 11-05 04:59 :00 No [id number] 300mg Take 1 capsule by mouth in the morning and 1 capsule at noon and 1 capsule in the evening. Do all this for 180 days. [facility] gabapentin 300 mg capsule 2021- 0-15 00:00: 00 11-05 04:59 :00 No [id number] 300mg Take 1 capsule by mouth in the morning and 1 capsule at noon and 1 capsule in the evening. Do all this for 180 days. [facility] gabapentin 300 mg capsule 2021- 0-15 00:00: 00 11-05 04:59 :00 No [id number] 300mg Take 1 capsule by mouth in the morning and 1 capsule at noon and 1 capsule in the evening. Do all this for 180 days. [facility] gabapentin 300 mg capsule 2021-07 0-15 00:00: 00 11-05 04:59 :00 No [id number] 300mg Take 1 capsule by mouth in the morning and 1 capsule at noon and 1 capsule in the evening. Do all this for 180 days. [facility] gabapentin 300 mg capsule 2021-07 0-15 00:00: 00 11-05 04:59 :00 No [id number] 300mg Take 1 capsule by mouth in the morning and 1 capsule at noon and 1 capsule in the evening. Do all this for 180 days. [facility] gabapentin 300 mg capsule 2021-07 0-15 00:00: 00 11-05 04:59 :00 No [id number] 300mg Take 1 capsule by mouth in the morning and 1 capsule at noon and 1 capsule in the evening. Do all this for 180 days. [facility] gabapentin 300 mg capsule 2021-07 0-15 00:00: 00 11-05 04:59 :00 No [id number] 300mg Take 1 capsule by mouth in the morning and 1 capsule at noon and 1 capsule in the evening. Do all this for 180 days. [facility] gabapentin 300 mg capsule 2021-07 0-15 00:00: 00 11-05 04:59 :00 No [id number] 300mg Take 1 capsule by mouth in the morning and 1 capsule at noon and 1 capsule in the evening. Do all this for 180 days. [facility] gabapentin 300 mg capsule 2021-07 0-15 00:00: 00 11-05 04:59 :00 No [id number] 300mg Take 1 capsule by mouth in the morning and 1 capsule at noon and 1 capsule in the evening. Do all this for 180 days. [facility] azaTHIOprin e 50 mg tablet 2021-07 0-15 00:00: 00 08-12 00:00 :00 No [id number] 100mg Take 2 tablets by mouth in the morning. [facility] gabapentin 300 mg capsule 2021-07 0-15 00:00: 00 08-12 00:00 :00 No [id number] 300mg Take 1 capsule by mouth in the morning and 1 capsule at noon and 1 capsule in the evening. Do all this for 180 days. [facility] azaTHIOprin e 50 mg tablet 2021-07 0-15 00:00: 00 08-12 00:00 :00 No [id number] 100mg Take 2 tablets by mouth in the morning. [facility] gabapentin 300 mg capsule 2021-07 0-15 00:00: 00 08-12 00:00 :00 No [id number] 300mg Take 1 capsule by mouth in the morning and 1 capsule at noon and 1 capsule in the evening. Do all this for 180 days. [facility] azaTHIOprin e 50 mg tablet 2021-07 0- 00:00: 00 08-12 00:00 :00 No [id number] 100mg Take 2 tablets by mouth in the morning. [facility] gabapentin 300 mg capsule 2021-07 0- 00:00: 00 08-12 00:00 :00 No [id number] 300mg Take 1 capsule by mouth in the morning and 1 capsule at noon and 1 capsule in the evening. Do all this for 180 days. [facility] azaTHIOprin e 50 mg tablet 2021-07 0-15 00:00: 00 08-12 00:00 :00 No [id number] 100mg Take 2 tablets by mouth in the morning. [facility] gabapentin 300 mg capsule 2021-07 0-15 00:00: 00 08-12 00:00 :00 No [id number] 300mg Take 1 capsule by mouth in the morning and 1 capsule at noon and 1 capsule in the evening. Do all this for 180 days. [facility] apixaban (ELIQUIS) 5 mg tablet 2021-07 0-15 00:00: 00 08-07 05:59 :00 No [id number] 5mg Take 1 tablet by mouth in the morning and 1 tablet in the evening. Do all this for 90 days. Indication s: history of deep vein thrombosis [facility] hydrALAZINE 25 mg tablet 2021-07 0-15 00:00: 00 08-07 05:59 :00 No [id number] 25mg Take 1 tablet by mouth in the morning and 1 tablet at noon and 1 tablet in the evening. Do all this for 90 days. [facility] apixaban (ELIQUIS) 5 mg tablet 2021-07 0-15 00:00: 00 08-07 05:59 :00 No [id number] 5mg Take 1 tablet by mouth in the morning and 1 tablet in the evening. Do all this for 90 days. Indication s: history of deep vein thrombosis [facility] hydrALAZINE 25 mg tablet 2021-07 0-15 00:00: 00 08-07 05:59 :00 No [id number] 25mg Take 1 tablet by mouth in the morning and 1 tablet at noon and 1 tablet in the evening. Do all this for 90 days. [facility] apixaban (ELIQUIS) 5 mg tablet 2021-07 0-15 00:00: 00 08-07 05:59 :00 No [id number] 5mg Take 1 tablet by mouth in the morning and 1 tablet in the evening. Do all this for 90 days. Indication s: history of deep vein thrombosis [facility] hydrALAZINE 25 mg tablet 2021-07 0-15 00:00: 00 08-07 05:59 :00 No [id number] 25mg Take 1 tablet by mouth in the morning and 1 tablet at noon and 1 tablet in the evening. Do all this for 90 days. [facility] apixaban (ELIQUIS) 5 mg tablet 2021-07 0-15 00:00: 00 08-07 05:59 :00 No [id number] 5mg Take 1 tablet by mouth in the morning and 1 tablet in the evening. Do all this for 90 days. Indication s: history of deep vein thrombosis [facility] hydrALAZINE 25 mg tablet 2021-07 0-15 00:00: 00 08-07 05:59 :00 No [id number] 25mg Take 1 tablet by mouth in the morning and 1 tablet at noon and 1 tablet in the evening. Do all this for 90 days. [facility] apixaban (ELIQUIS) 5 mg tablet 2021- 0-15 00:00: 00 08-07 05:59 :00 No [id number] 5mg Take 1 tablet by mouth in the morning and 1 tablet in the evening. Do all this for 90 days. Indication s: history of deep vein thrombosis [facility] hydrALAZINE 25 mg tablet 2021-07 0-15 00:00: 00 08-07 05:59 :00 No [id number] 25mg Take 1 tablet by mouth in the morning and 1 tablet at noon and 1 tablet in the evening. Do all this for 90 days. [facility] apixaban (ELIQUIS) 5 mg tablet 2021-07 0-15 00:00: 00 08-07 05:59 :00 No [id number] 5mg Take 1 tablet by mouth in the morning and 1 tablet in the evening. Do all this for 90 days. Indication s: history of deep vein thrombosis [facility] hydrALAZINE 25 mg tablet 2021-07 0-15 00:00: 00 08-07 05:59 :00 No [id number] 25mg Take 1 tablet by mouth in the morning and 1 tablet at noon and 1 tablet in the evening. Do all this for 90 days. [facility] apixaban (ELIQUIS) 5 mg tablet 2021-07 0-15 00:00: 00 08-07 05:59 :00 No [id number] 5mg Take 1 tablet by mouth in the morning and 1 tablet in the evening. Do all this for 90 days. Indication s: history of deep vein thrombosis [facility] hydrALAZINE 25 mg tablet 2021-07 0-15 00:00: 00 08-07 05:59 :00 No [id number] 25mg Take 1 tablet by mouth in the morning and 1 tablet at noon and 1 tablet in the evening. Do all this for 90 days. [facility] apixaban (ELIQUIS) 5 mg tablet 2021-07 0-15 00:00: 00 08-07 05:59 :00 No [id number] 5mg Take 1 tablet by mouth in the morning and 1 tablet in the evening. Do all this for 90 days. Indication s: history of deep vein thrombosis [facility] hydrALAZINE 25 mg tablet 2021-07 0-15 00:00: 00 08-07 05:59 :00 No [id number] 25mg Take 1 tablet by mouth in the morning and 1 tablet at noon and 1 tablet in the evening. Do all this for 90 days. [facility] apixaban (ELIQUIS) 5 mg tablet 2021-07 0-15 00:00: 00 08-07 05:59 :00 No [id number] 5mg Take 1 tablet by mouth in the morning and 1 tablet in the evening. Do all this for 90 days. Indication s: history of deep vein thrombosis [facility] hydrALAZINE 25 mg tablet 2021-07 0-15 00:00: 00 08-07 05:59 :00 No [id number] 25mg Take 1 tablet by mouth in the morning and 1 tablet at noon and 1 tablet in the evening. Do all this for 90 days. [facility] apixaban (ELIQUIS) 5 mg tablet 2021-07 0-15 00:00: 00 08-07 05:59 :00 No [id number] 5mg Take 1 tablet by mouth in the morning and 1 tablet in the evening. Do all this for 90 days. Indication s: history of deep vein thrombosis [facility] hydrALAZINE 25 mg tablet 2021-07 0-15 00:00: 00 08-07 05:59 :00 No [id number] 25mg Take 1 tablet by mouth in the morning and 1 tablet at noon and 1 tablet in the evening. Do all this for 90 days. [facility] apixaban (ELIQUIS) 5 mg tablet 2021-07 0-15 00:00: 00 08-07 05:59 :00 No [id number] 5mg Take 1 tablet by mouth in the morning and 1 tablet in the evening. Do all this for 90 days. Indication s: history of deep vein thrombosis [facility] hydrALAZINE 25 mg tablet 2021-07 0-15 00:00: 00 08-07 05:59 :00 No [id number] 25mg Take 1 tablet by mouth in the morning and 1 tablet at noon and 1 tablet in the evening. Do all this for 90 days. [facility] apixaban (ELIQUIS) 5 mg tablet 2021- 0-15 00:00: 00 08-07 05:59 :00 No [id number] 5mg Take 1 tablet by mouth in the morning and 1 tablet in the evening. Do all this for 90 days. Indication s: history of deep vein thrombosis [facility] hydrALAZINE 25 mg tablet 2021- 0-15 00:00: 00 08-07 05:59 :00 No [id number] 25mg Take 1 tablet by mouth in the morning and 1 tablet at noon and 1 tablet in the evening. Do all this for 90 days. [facility] apixaban (ELIQUIS) 5 mg tablet 2021-07 0-15 00:00: 00 08-07 05:59 :00 No [id number] 5mg Take 1 tablet by mouth in the morning and 1 tablet in the evening. Do all this for 90 days. Indication s: history of deep vein thrombosis [facility] hydrALAZINE 25 mg tablet 2021-07 0-15 00:00: 00 08-07 05:59 :00 No [id number] 25mg Take 1 tablet by mouth in the morning and 1 tablet at noon and 1 tablet in the evening. Do all this for 90 days. [facility] apixaban (ELIQUIS) 5 mg tablet 2021-07 0-15 00:00: 00 08-07 05:59 :00 No [id number] 5mg Take 1 tablet by mouth in the morning and 1 tablet in the evening. Do all this for 90 days. Indication s: history of deep vein thrombosis [facility] hydrALAZINE 25 mg tablet 2021- 0-15 00:00: 00 08-07 05:59 :00 No [id number] 25mg Take 1 tablet by mouth in the morning and 1 tablet at noon and 1 tablet in the evening. Do all this for 90 days. [facility] apixaban (ELIQUIS) 5 mg tablet 2021- 0-15 00:00: 00 08-07 05:59 :00 No [id number] 5mg Take 1 tablet by mouth in the morning and 1 tablet in the evening. Do all this for 90 days. Indication s: history of deep vein thrombosis [facility] hydrALAZINE 25 mg tablet 2021-07 0-15 00:00: 00 08-07 05:59 :00 No [id number] 25mg Take 1 tablet by mouth in the morning and 1 tablet at noon and 1 tablet in the evening. Do all this for 90 days. [facility] apixaban (ELIQUIS) 5 mg tablet 2021-07 0-15 00:00: 00 08-07 05:59 :00 No [id number] 5mg Take 1 tablet by mouth in the morning and 1 tablet in the evening. Do all this for 90 days. Indication s: history of deep vein thrombosis [facility] hydrALAZINE 25 mg tablet 2021-07 0-15 00:00: 00 08-07 05:59 :00 No [id number] 25mg Take 1 tablet by mouth in the morning and 1 tablet at noon and 1 tablet in the evening. Do all this for 90 days. [facility] apixaban (ELIQUIS) 5 mg tablet 2021-07 0-15 00:00: 00 08-07 05:59 :00 No [id number] 5mg Take 1 tablet by mouth in the morning and 1 tablet in the evening. Do all this for 90 days. Indication s: history of deep vein thrombosis [facility] hydrALAZINE 25 mg tablet 2021-07 0-15 00:00: 00 08-07 05:59 :00 No [id number] 25mg Take 1 tablet by mouth in the morning and 1 tablet at noon and 1 tablet in the evening. Do all this for 90 days. [facility] apixaban (ELIQUIS) 5 mg tablet 2021-07 0-15 00:00: 00 05-16 04:59 :00 No [id number] 10mg Take 2 tablets by mouth in the morning and 2 tablets in the evening. Do all this for 7 days. Indication s: history of deep vein thrombosis [facility] aspirin 81 mg chewable tablet 2021-07 0-15 00:00: 00 05-08 00:00 :00 No [id number] 81mg Take 1 tablet by mouth in the morning. [facility] apixaban (ELIQUIS) 5 mg tablet 2021-07 00:00: 00 05-08 00:00 :00 No [id number] 10mg Take 2 tablets by mouth in the morning and 2 tablets in the evening. Do all this for 7 days. Indication s: history of deep vein thrombosis [facility] apixaban (ELIQUIS) 5 mg tablet 2021-07 00:00: 00 05-08 00:00 :00 No [id number] 5mg Take 1 tablet by mouth in the morning and 1 tablet in the evening. Do all this for 90 days. Indication s: history of deep vein thrombosis [facility] aspirin 81 mg chewable tablet 2021-07 00:00: 00 05-07 00:00 :00 No [id number] 81mg Take 1 tablet by mouth in the morning. [facility] azaTHIOprin e 100 mg tablet 2021-07 00:00: 00 05-07 00:00 :00 No [id number] 100mg Take 1 tablet by mouth in the morning. [facility] gadobenate dimeglumine (MULTIHANCE -15 mL) injection 19.78 mL 2021-07 03:15: 00 05-07 03:15 :00 No [id number] .2mL/kg 19.78 mL (0.2 mL/kg ?98.9 kg), Intravenou s, ONCE, 1 dose, On Tue05/06/22 at 2215, Routine [facility] lacosamide 50 mg tablet 2021-07 00:00: 00 Yes [id number] 50mg Take 1 tablet by mouth in the morning and 1 tablet in the evening. [facility] lacosamide 50 mg tablet 2021-07 00:00: 00 Yes [id number] 50mg Take 1 tablet by mouth in the morning and 1 tablet in the evening. [facility] lacosamide 50 mg tablet 2021-07 00:00: 00 Yes [id number] 50mg Take 1 tablet by mouth in the morning and 1 tablet in the evening. [facility] lacosamide 50 mg tablet 2021- 0-14 00:00: 00 Yes [id number] 50mg Take 1 tablet by mouth in the morning and 1 tablet in the evening. [facility] lacosamide 50 mg tablet 2021- 0-14 00:00: 00 Yes [id number] 50mg Take 1 tablet by mouth in the morning and 1 tablet in the evening. [facility] lacosamide 50 mg tablet 2021- 0-14 00:00: 00 Yes [id number] 50mg Take 1 tablet by mouth in the morning and 1 tablet in the evening. [facility] predniSONE 5 mg tablet 2021- 0-14 00:00: 00 03-25 04:59 :00 No [id number] Take 4 tablets by mouth daily for 7 days, THEN 3.5 tablets daily for 7 days, THEN 3 tablets daily for 7 days, THEN 2 tablets daily for 300 days. [facility] predniSONE 5 mg tablet 2021- 0-14 00:00: 00 03-25 04:59 :00 No [id number] Take 4 tablets by mouth daily for 7 days, THEN 3.5 tablets daily for 7 days, THEN 3 tablets daily for 7 days, THEN 2 tablets daily for 300 days. [facility] predniSONE 5 mg tablet 2021- 0-14 00:00: 00 03-25 04:59 :00 No [id number] Take 4 tablets by mouth daily for 7 days, THEN 3.5 tablets daily for 7 days, THEN 3 tablets daily for 7 days, THEN 2 tablets daily for 300 days. [facility] predniSONE 5 mg tablet 2021- 0-14 00:00: 00 03-25 04:59 :00 No [id number] Take 4 tablets by mouth daily for 7 days, THEN 3.5 tablets daily for 7 days, THEN 3 tablets daily for 7 days, THEN 2 tablets daily for 300 days. [facility] predniSONE 5 mg tablet 2021- 0-14 00:00: 00 03-25 04:59 :00 No [id number] Take 4 tablets by mouth daily for 7 days, THEN 3.5 tablets daily for 7 days, THEN 3 tablets daily for 7 days, THEN 2 tablets daily for 300 days. [facility] predniSONE 5 mg tablet 2-1 0-14 00:00: 00 03-25 04:59 :00 No [id number] Take 4 tablets by mouth daily for 7 days, THEN 3.5 tablets daily for 7 days, THEN 3 tablets daily for 7 days, THEN 2 tablets daily for 300 days. [facility] predniSONE 5 mg tablet 2-1 0-14 00:00: 00 03-25 04:59 :00 No [id number] Take 4 tablets by mouth daily for 7 days, THEN 3.5 tablets daily for 7 days, THEN 3 tablets daily for 7 days, THEN 2 tablets daily for 300 days. [facility] predniSONE 5 mg tablet 2021-1 0-14 00:00: 00 03-25 04:59 :00 No [id number] Take 4 tablets by mouth daily for 7 days, THEN 3.5 tablets daily for 7 days, THEN 3 tablets daily for 7 days, THEN 2 tablets daily for 300 days. [facility] predniSONE 5 mg tablet 2021-1 0-14 00:00: 00 03-25 04:59 :00 No [id number] Take 4 tablets by mouth daily for 7 days, THEN 3.5 tablets daily for 7 days, THEN 3 tablets daily for 7 days, THEN 2 tablets daily for 300 days. [facility] predniSONE 5 mg tablet 2-1 0-14 00:00: 00 03-25 04:59 :00 No [id number] Take 4 tablets by mouth daily for 7 days, THEN 3.5 tablets daily for 7 days, THEN 3 tablets daily for 7 days, THEN 2 tablets daily for 300 days. [facility] predniSONE 5 mg tablet 2-1 0-14 00:00: 00 03-25 04:59 :00 No [id number] Take 4 tablets by mouth daily for 7 days, THEN 3.5 tablets daily for 7 days, THEN 3 tablets daily for 7 days, THEN 2 tablets daily for 300 days. [facility] predniSONE 5 mg tablet 2-1 0-14 00:00: 00 03-25 04:59 :00 No [id number] Take 4 tablets by mouth daily for 7 days, THEN 3.5 tablets daily for 7 days, THEN 3 tablets daily for 7 days, THEN 2 tablets daily for 300 days. [facility] predniSONE 5 mg tablet 2-1 0-14 00:00: 00 03-25 04:59 :00 No [id number] Take 4 tablets by mouth daily for 7 days, THEN 3.5 tablets daily for 7 days, THEN 3 tablets daily for 7 days, THEN 2 tablets daily for 300 days. [facility] predniSONE 5 mg tablet 2-1 0-14 00:00: 00 03-25 04:59 :00 No [id number] Take 4 tablets by mouth daily for 7 days, THEN 3.5 tablets daily for 7 days, THEN 3 tablets daily for 7 days, THEN 2 tablets daily for 300 days. [facility] predniSONE 5 mg tablet 2-1 0-14 00:00: 00 08-12 00:00 :00 No [id number] Take 4 tablets by mouth daily for 7 days, THEN 3.5 tablets daily for 7 days, THEN 3 tablets daily for 7 days, THEN 2 tablets daily for 300 days. [facility] predniSONE 5 mg tablet 2-1 0-14 00:00: 00 08-12 00:00 :00 No [id number] Take 4 tablets by mouth daily for 7 days, THEN 3.5 tablets daily for 7 days, THEN 3 tablets daily for 7 days, THEN 2 tablets daily for 300 days. [facility] predniSONE 5 mg tablet 2-1 0-14 00:00: 00 08-12 00:00 :00 No [id number] Take 4 tablets by mouth daily for 7 days, THEN 3.5 tablets daily for 7 days, THEN 3 tablets daily for 7 days, THEN 2 tablets daily for 300 days. [facility] predniSONE 5 mg tablet 2-1 0-14 00:00: 00 08-12 00:00 :00 No [id number] Take 4 tablets by mouth daily for 7 days, THEN 3.5 tablets daily for 7 days, THEN 3 tablets daily for 7 days, THEN 2 tablets daily for 300 days. [facility] lacosamide 50 mg tablet 2021-07 0-14 00:00: 00 06-03 00:00 :00 No [id number] 50mg Take 1 tablet by mouth in the morning and 1 tablet in the evening. [facility] lacosamide 50 mg tablet 2021-07 0-14 00:00: 00 06-03 00:00 :00 No [id number] 50mg Take 1 tablet by mouth in the morning and 1 tablet in the evening. [facility] lacosamide 50 mg tablet 2021-07 0-14 00:00: 00 06-03 00:00 :00 No [id number] 50mg Take 1 tablet by mouth in the morning and 1 tablet in the evening. [facility] lacosamide 50 mg tablet 2021-07 0-14 00:00: 00 06-03 00:00 :00 No [id number] 50mg Take 1 tablet by mouth in the morning and 1 tablet in the evening. [facility] lacosamide 50 mg tablet 2021-07 0-14 00:00: 00 06-03 00:00 :00 No [id number] 50mg Take 1 tablet by mouth in the morning and 1 tablet in the evening. [facility] lacosamide 50 mg tablet 2021-07 0-14 00:00: 00 06-03 00:00 :00 No [id number] 50mg Take 1 tablet by mouth in the morning and 1 tablet in the evening. [facility] predniSONE 5 mg tablet 2021-07 0-14 00:00: 00 05-07 00:00 :00 No [id number] Take 4 tablets by mouth daily for 7 days, THEN 2 tablets daily for 300 days. [facility] Lacosamide 10 mg/mL oral solution 2021-07 0-14 00:00: 00 05-07 00:00 :00 No [id number] 50mg Take 5 mL by mouth in the morning and 5 mL in the evening. [facility] lacosamide 50 mg tablet 2021-07 00:00: 00 05-07 00:00 :00 No [id number] 50mg Take 1 tablet by mouth in the morning and 1 tablet in the evening. [facility] aspirin chewable tablet 81 mg 2021-07 19:45: 00 Yes 81mg 81 mg, Oral, DAILY, First dose on Tue05/06/22 at 1445, Until Discontinu ed, [facility] azaTHIOprin [facility] (IMURAN) tablet 100 mg 2021-07 14:00: 00 Yes 100mg 100 mg, Oral, DAILY, First dose (after last modificati on) on Tue05/06/22 at 0900, Until Discontinu ed, Routine [facility] pantoprazol e (PROTONIX) EC tablet 40 mg 2021-07 14:00: 00 Yes 40mg 40 mg, Oral, DAILY, First dose on Tue05/06/22 at 0900, Until Discontinu ed, Routine [facility] lisinopriL (PRINIVIL,Z ESTRIL) tablet 40 mg 2021-07 14:00: 00 Yes 40mg 40 mg, Oral, DAILY, First dose on Tue05/06/22 at 0900, Until Discontinu ed [facility] ferrous sulfate tablet 325 mg 2021-07 14:00: 00 Yes 325mg 325 mg, Oral, Q OTHERDAY, First dose on Tue05/06/22 at 0900, Until Discontinu ed, Routine [facility] amLODIPine (NORVASC) tablet 10 mg 2021-07 14:00: 00 Yes 10mg 10 mg, Oral, DAILY, First dose on Tue05/06/22 at 0900, Until Discontinu ed, [facility]ine [facility] acetaminoph en (TYLENOL) tablet 500 mg 2021-07 04:47: 18 Yes 500mg 500 mg, Oral, Q6HPRN, Starting on Tue05/05/22 at 2347, Until Discontinu ed, Routine, Pain (scale 1-3), Temp > 38.5 C, Pain (scale 4-6) [facility] atorvastati n (LIPITOR) tablet 20 mg 2021-07 02:00: 00 Yes 20mg 20 mg, Oral, QHS, First dose on Tue05/05/22 at 2100, Until Discontinu ed, Routine [facility] risperiDONE (RISPERDAL) tablet 1 mg 2021-0713 01:00: 00 Yes 1mg 1 mg, Oral, BID, First dose on Tue05/05/22 at 2000, Until Discontinu ed, Routine [facility] divalproex (DEPAKOTE) EC tablet 1,500 mg 2021-07 01:00: 00 Yes 1500mg 1,500 mg, Oral, Q12H, First dose on Tue05/05/22 at 2000, Until Discontinu ed, Routine [facility] heparin (porcine) injection 5,000 Units 2021-07 01:00: 00 Yes 5000U 5,000 Units, Subcutaneo us, Q12H, First dose on Tue05/05/22 at 2000, Until Discontinu ed, Routine [facility] Sliding Scale Insulin - Lispro (HumaLOG) + Fsbg Testing 2021-07 22:00: 00 Yes Subcutaneo us, TID MEALS+HS, First dose on Tue05/05/22 at 1700, Until Discontinu ed, Routine [facility] carvediloL (COREG) tablet 25 mg 2021-07 22:00: 00 Yes 25mg 25 mg, Oral, BID MEALS, First dose on Tue05/05/22 at 1700, Until Discontinu ed, Routine [facility] lacosamide (VIMPAT) 50 mg in NaCl 0.9% (NS) 50 mL piggyback 2021-07 21:45: 00 05-08 00:27 :03 No 50mg 50 mg, IV Piggyback, Q12H, First dose on Tue05/05/22 at 1645, Until Discontinu ed, Administer over 30 Minutes, 50 mL
Facu lty member approving Restricted medication : ARMEN COX RA [facility] predniSONE (DELTASONE) tablet 20 mg 2021-07 19:00: 00 Yes 20mg 20 mg, Oral, DAILY, First dose on Tue05/05/22 at 1400, Until Discontinu ed, Routine [facility] glucagon (GLUCAGEN DIAGNOSTIC KIT) injection 1 mg 2021-07 18:48: 01 Yes 1mg 1 mg, Intramuscu lar, PRN, Starting on Tue05/05/22 at 1348, Until Discontinu ed, HENRY, Blood Glucose < or = 70 mg/dL and patient is unable to swallow or has mental changes. [facility] dextrose 50 % in water (D50W) injection 25 mL 2021-07 18:48: 01 Yes 25mL 25 mL, Slow IV Push, PRN, Starting on Tue05/05/22 at 1348, Until Discontinu ed, HENRY, Blood Glucose < or = 70 mg/dL and patient is unable to swallow or has mental status changes. [facility] hydrOXYzine (ATARAX) 10 mg/5 mL solution 10 mg 2021-07 18:47: 35 Yes 10mg 10 mg, Oral, Q6HPRN, Starting on Tue05/05/22 at 1347, Until Discontinu ed, Routine, Anxiety [facility] NaCl 0.9% (NS) IV infusion 1,000 mL 2021-07 18:30: 00 Yes 1000mL at 50 mL/hr, IV Infusion, CONTINUOUS , Starting on Tue05/05/22 at 1330, Until Discontinu ed, Routine
To keep vein open.
[facility] iopamidol (ISOVUE 370-500 mL) injection 100 mL 2021-07 16:00: 00 05-05 16:00 :00 No [id number] 100mL 100 mL, Intravenou s, ONCE, 1 dose, On Tue05/05/22 at 1100, Routine [facility] iopamidol (ISOVUE 370-500 mL) injection 100 mL 2021-07 15:45: 00 05-05 15:45 :00 No [id number] 100mL 100 mL, Intravenou s, ONCE, 1 dose, On Tue05/05/22 at 1045, Routine [facility] NaCl 0.9% (NS) injection 5 mL 2021-07 012 14:20: 20 Yes 5mL 5 mL, Slow IV Push, PRN - SEE INSTRUCTIO NS, Starting on Tue05/05/22 at 0920, Until Discontinu ed, 10 mL [facility] predniSONE (DELTASONE) tablet 30 mg 04-11 14:00: 00 04-16 13:59 :00 No 30mg 30 mg, Oral, DAILY, 5 doses, First dose on 04/11/22 at 0900, Last dose on Karely 04/15/22 at 0900, Routine [facility] omega-3s-dh a-epa-fish oil-D3 (FISH OIL-VIT D3) 360 mg-1,200 mg -1,000 unit Cap 04-09 23:12: 13 Yes Take by mouth. [facility] atorvastati n (LIPITOR) 20 mg tablet 04-09 23:12: 13 Yes 20mg Take 20 mg by mouth at bedtime. [facility] MULTIVITS-M INERALS/FA/ LYCOPENE (ONE-A-DAY MEN'S MULTIVITAMI N ORAL) 04-09 23:12: 13 Yes Take by mouth. [facility] ibuprofen (ADVIL) 200 mg tablet 04-09 23:12: 13 Yes 200mg Take 200 mg by mouth 2 (two) times daily with meals. [facility] POTASSIUM-9 9 ORAL 04-09 23:12: 13 Yes 99mg Take 99 mg by mouth daily. [facility] vitamin B-12 100 mcg tablet 04-09 23:12: 13 Yes 2500ug Take 2,500 mcg by mouth daily. [facility] omega-3s-dh a-epa-fish oil-D3 (FISH OIL-VIT D3) 360 mg-1,200 mg -1,000 unit Cap 04-09 23:12: 13 Yes Take by mouth. [facility] atorvastati n (LIPITOR) 20 mg tablet 04-09 23:12: 13 Yes 20mg Take 20 mg by mouth at bedtime. [facility] MULTIVITS-M INERALS/FA/ LYCOPENE (ONE-A-DAY MEN'S MULTIVITAMI N ORAL) 04-09 23:12: 13 Yes Take by mouth. [facility] ibuprofen (ADVIL) 200 mg tablet 04-09 23:12: 13 Yes 200mg Take 200 mg by mouth 2 (two) times daily with meals. [facility] POTASSIUM-9 9 ORAL 04-09 23:12: 13 Yes 99mg Take 99 mg by mouth daily. [facility] vitamin B-12 100 mcg tablet 04-09 23:12: 13 Yes 2500ug Take 2,500 mcg by mouth daily. [facility] omega-3s-dh a-epa-fish oil-D3 (FISH OIL-VIT D3) 360 mg-1,200 mg -1,000 unit Cap 04-09 23:12: 13 Yes Take by mouth. [facility] atorvastati n (LIPITOR) 20 mg tablet 04-09 23:12: 13 Yes 20mg Take 20 mg by mouth at bedtime. [facility] MULTIVITS-M INERALS/FA/ LYCOPENE (ONE-A-DAY MEN'S MULTIVITAMI N ORAL) 04-09 23:12: 13 Yes Take by mouth. [facility] ibuprofen (ADVIL) 200 mg tablet 04-09 23:12: 13 Yes 200mg Take 200 mg by mouth 2 (two) times daily with meals. [facility] POTASSIUM-9 9 ORAL 04-09 23:12: 13 Yes 99mg Take 99 mg by mouth daily. [facility] vitamin B-12 100 mcg tablet 04-09 23:12: 13 Yes 2500ug Take 2,500 mcg by mouth daily. [facility] omega-3s-dh a-epa-fish oil-D3 (FISH OIL-VIT D3) 360 mg-1,200 mg -1,000 unit Cap 04-09 23:12: 13 Yes Take by mouth. [facility] atorvastati n (LIPITOR) 20 mg tablet 04-09 23:12: 13 Yes 20mg Take 20 mg by mouth at bedtime. [facility] MULTIVITS-M INERALS/FA/ LYCOPENE (ONE-A-DAY MEN'S MULTIVITAMI N ORAL) 04-09 23:12: 13 Yes Take by mouth. [facility] ibuprofen (ADVIL) 200 mg tablet 04-09 23:12: 13 Yes 200mg Take 200 mg by mouth 2 (two) times daily with meals. [facility] POTASSIUM-9 9 ORAL 04-09 23:12: 13 Yes 99mg Take 99 mg by mouth daily. [facility] vitamin B-12 100 mcg tablet 04-09 23:12: 13 Yes 2500ug Take 2,500 mcg by mouth daily. [facility] carvedilol (COREG) 25 mg tablet 04-09 16:13: 37 04-09 00:00 :00 No 25mg Take 25 mg by mouth 2 (two) times daily with meals. [facility] lisinopriL 40 mg tablet 04-09 16:13: 37 04-09 00:00 :00 No 40mg Take 40 mg by mouth in the morning. [facility] carvedilol (COREG) 25 mg tablet 04-09 16:13: 37 04-09 00:00 :00 No 25mg Take 25 mg by mouth 2 (two) times daily with meals. [facility] lisinopriL 40 mg tablet 04-09 16:13: 37 04-09 00:00 :00 No 40mg Take 40 mg by mouth in the morning. [facility] carvedilol (COREG) 25 mg tablet 04-09 16:13: 37 04-09 00:00 :00 No 25mg Take 25 mg by mouth 2 (two) times daily with meals. [facility] lisinopriL 40 mg tablet 2022-0 9-16 16:13: 37 04-09 00:00 :00 No 40mg Take 40 mg by mouth in the morning. [facility] carvedilol (COREG) 25 mg tablet 16 16:13: 37 04-09 00:00 :00 No 25mg Take 25 mg by mouth 2 (two) times daily with meals. [facility] lisinopriL 40 mg tablet 16 16:13: 37 04-09 00:00 :00 No 40mg Take 40 mg by mouth in the morning. [facility] lisinopriL 40 mg tablet 0 16 00:00: 00 Yes [id number] 40mg Take 1 tablet by mouth in the morning. [facility] carvediloL (COREG) 25 mg tablet 2021-0 16 00:00: 00 Yes [id number] 25mg Take 1 tablet by mouth in the morning and 1 tablet in the evening. Take with meals. [facility] amLODIPine 10 mg tablet 0 16 00:00: 00 Yes [id number] 10mg Take 1 tablet by mouth in the morning. [facility] lisinopriL 40 mg tablet 0 16 00:00: 00 Yes [id number] 40mg Take 1 tablet by mouth in the morning. [facility] carvediloL (COREG) 25 mg tablet 2021-0 16 00:00: 00 Yes [id number] 25mg Take 1 tablet by mouth in the morning and 1 tablet in the evening. Take with meals. [facility] amLODIPine 10 mg tablet 0 16 00:00: 00 Yes [id number] 10mg Take 1 tablet by mouth in the morning. [facility] lisinopriL 40 mg tablet 2021-0 16 00:00: 00 Yes [id number] 40mg Take 1 tablet by mouth in the morning. [facility] carvediloL (COREG) 25 mg tablet 2021-0 16 00:00: 00 Yes [id number] 25mg Take 1 tablet by mouth in the morning and 1 tablet in the evening. Take with meals. [facility] amLODIPine 10 mg tablet 2021-0 -16 00:00: 00 Yes [id number] 10mg Take 1 tablet by mouth in the morning. [facility] lisinopriL 40 mg tablet 2021-0 -16 00:00: 00 Yes [id number] 40mg Take 1 tablet by mouth in the morning. [facility] carvediloL (COREG) 25 mg tablet 2-0 -16 00:00: 00 Yes [id number] 25mg Take 1 tablet by mouth in the morning and 1 tablet in the evening. Take with meals. [facility] amLODIPine 10 mg tablet 2021-0 -16 00:00: 00 Yes [id number] 10mg Take 1 tablet by mouth in the morning. [facility] lisinopriL 40 mg tablet 2021-0 -16 00:00: 00 Yes [id number] 40mg Take 1 tablet by mouth in the morning. [facility] carvediloL (COREG) 25 mg tablet 2021-0 -16 00:00: 00 Yes [id number] 25mg Take 1 tablet by mouth in the morning and 1 tablet in the evening. Take with meals. [facility] amLODIPine 10 mg tablet 2021-0 -16 00:00: 00 Yes [id number] 10mg Take 1 tablet by mouth in the morning. [facility] lisinopriL 40 mg tablet 2021-0 -16 00:00: 00 Yes [id number] 40mg Take 1 tablet by mouth in the morning. [facility] carvediloL (COREG) 25 mg tablet 2-0 -16 00:00: 00 Yes [id number] 25mg Take 1 tablet by mouth in the morning and 1 tablet in the evening. Take with meals. [facility] amLODIPine 10 mg tablet 2-0 -16 00:00: 00 Yes [id number] 10mg Take 1 tablet by mouth in the morning. [facility] lisinopriL 40 mg tablet 2-0 -16 00:00: 00 Yes [id number] 40mg Take 1 tablet by mouth in the morning. [facility] carvediloL (COREG) 25 mg tablet 2-0 9-16 00:00: 00 Yes [id number] 25mg Take 1 tablet by mouth in the morning and 1 tablet in the evening. Take with meals. [facility] amLODIPine 10 mg tablet 2021-0 -16 00:00: 00 Yes [id number] 10mg Take 1 tablet by mouth in the morning. [facility] lisinopriL 40 mg tablet 2021-0 -16 00:00: 00 Yes [id number] 40mg Take 1 tablet by mouth in the morning. [facility] carvediloL (COREG) 25 mg tablet 2021-0 -16 00:00: 00 Yes [id number] 25mg Take 1 tablet by mouth in the morning and 1 tablet in the evening. Take with meals. [facility] amLODIPine 10 mg tablet 2021-0 -16 00:00: 00 Yes [id number] 10mg Take 1 tablet by mouth in the morning. [facility] lisinopriL 40 mg tablet 2021-0 -16 00:00: 00 Yes [id number] 40mg Take 1 tablet by mouth in the morning. [facility] carvediloL (COREG) 25 mg tablet 2021-0 -16 00:00: 00 Yes [id number] 25mg Take 1 tablet by mouth in the morning and 1 tablet in the evening. Take with meals. [facility] amLODIPine 10 mg tablet 2021-0 -16 00:00: 00 Yes [id number] 10mg Take 1 tablet by mouth in the morning. [facility] lisinopriL 40 mg tablet 2021-0 -16 00:00: 00 Yes [id number] 40mg Take 1 tablet by mouth in the morning. [facility] carvediloL (COREG) 25 mg tablet 2-0 -16 00:00: 00 Yes [id number] 25mg Take 1 tablet by mouth in the morning and 1 tablet in the evening. Take with meals. [facility] amLODIPine 10 mg tablet 2-0 -16 00:00: 00 Yes [id number] 10mg Take 1 tablet by mouth in the morning. [facility] lisinopriL 40 mg tablet 2-0 -16 00:00: 00 Yes [id number] 40mg Take 1 tablet by mouth in the morning. [facility] carvediloL (COREG) 25 mg tablet 2021-0 16 00:00: 00 Yes [id number] 25mg Take 1 tablet by mouth in the morning and 1 tablet in the evening. Take with meals. [facility] amLODIPine 10 mg tablet 2021-0 16 00:00: 00 Yes [id number] 10mg Take 1 tablet by mouth in the morning. [facility] lisinopriL 40 mg tablet 0 16 00:00: 00 Yes [id number] 40mg Take 1 tablet by mouth in the morning. [facility] carvediloL (COREG) 25 mg tablet 2021-0 16 00:00: 00 Yes [id number] 25mg Take 1 tablet by mouth in the morning and 1 tablet in the evening. Take with meals. [facility] amLODIPine 10 mg tablet 2021-0 16 00:00: 00 Yes [id number] 10mg Take 1 tablet by mouth in the morning. [facility] lisinopriL 40 mg tablet 2021-0 16 00:00: 00 Yes [id number] 40mg Take 1 tablet by mouth in the morning. [facility] carvediloL (COREG) 25 mg tablet 2021-0 16 00:00: 00 Yes [id number] 25mg Take 1 tablet by mouth in the morning and 1 tablet in the evening. Take with meals. [facility] amLODIPine 10 mg tablet 2021-0 16 00:00: 00 Yes [id number] 10mg Take 1 tablet by mouth in the morning. [facility] lisinopriL 40 mg tablet 2021-0 16 00:00: 00 Yes [id number] 40mg Take 1 tablet by mouth in the morning. [facility] carvediloL (COREG) 25 mg tablet 2021-0 16 00:00: 00 Yes [id number] 25mg Take 1 tablet by mouth in the morning and 1 tablet in the evening. Take with meals. [facility] amLODIPine 10 mg tablet 2021-0 16 00:00: 00 Yes [id number] 10mg Take 1 tablet by mouth in the morning. [facility] lisinopriL 40 mg tablet 2-0 -16 00:00: 00 Yes [id number] 40mg Take 1 tablet by mouth in the morning. [facility] carvediloL (COREG) 25 mg tablet 2-0 -16 00:00: 00 Yes [id number] 25mg Take 1 tablet by mouth in the morning and 1 tablet in the evening. Take with meals. [facility] amLODIPine 10 mg tablet 2021-0 -16 00:00: 00 Yes [id number] 10mg Take 1 tablet by mouth in the morning. [facility] lisinopriL 40 mg tablet 2021-0 -16 00:00: 00 Yes [id number] 40mg Take 1 tablet by mouth in the morning. [facility] carvediloL (COREG) 25 mg tablet 2021-0 -16 00:00: 00 Yes [id number] 25mg Take 1 tablet by mouth in the morning and 1 tablet in the evening. Take with meals. [facility] amLODIPine 10 mg tablet 2021-0 -16 00:00: 00 Yes [id number] 10mg Take 1 tablet by mouth in the morning. [facility] lisinopriL 40 mg tablet 2021-0 -16 00:00: 00 Yes [id number] 40mg Take 1 tablet by mouth in the morning. [facility] carvediloL (COREG) 25 mg tablet 2-0 -16 00:00: 00 Yes [id number] 25mg Take 1 tablet by mouth in the morning and 1 tablet in the evening. Take with meals. [facility] amLODIPine 10 mg tablet 2021-0 -16 00:00: 00 Yes [id number] 10mg Take 1 tablet by mouth in the morning. [facility] lisinopriL 40 mg tablet 2021-0 -16 00:00: 00 08-12 00:00 :00 No [id number] 40mg Take 1 tablet by mouth in the morning. [facility] carvediloL (COREG) 25 mg tablet 2021-0 9-16 00:00: 00 08-12 00:00 :00 No [id number] 25mg Take 1 tablet by mouth in the morning and 1 tablet in the evening. Take with meals. [facility] amLODIPine 10 mg tablet 2-0 9-16 00:00: 00 08-12 00:00 :00 No [id number] 10mg Take 1 tablet by mouth in the morning. [facility] lisinopriL 40 mg tablet 2-0 9-16 00:00: 00 08-12 00:00 :00 No [id number] 40mg Take 1 tablet by mouth in the morning. [facility] carvediloL (COREG) 25 mg tablet 2021-0 9-16 00:00: 00 08-12 00:00 :00 No [id number] 25mg Take 1 tablet by mouth in the morning and 1 tablet in the evening. Take with meals. [facility] amLODIPine 10 mg tablet 2-0 9-16 00:00: 00 08-12 00:00 :00 No [id number] 10mg Take 1 tablet by mouth in the morning. [facility] lisinopriL 40 mg tablet 2021-0 9-16 00:00: 00 08-12 00:00 :00 No [id number] 40mg Take 1 tablet by mouth in the morning. [facility] carvediloL (COREG) 25 mg tablet 2-0 9-16 00:00: 00 08-12 00:00 :00 No [id number] 25mg Take 1 tablet by mouth in the morning and 1 tablet in the evening. Take with meals. [facility] amLODIPine 10 mg tablet 2-0 9-16 00:00: 00 08-12 00:00 :00 No [id number] 10mg Take 1 tablet by mouth in the morning. [facility] lisinopriL 40 mg tablet 2-0 9-16 00:00: 00 08-12 00:00 :00 No [id number] 40mg Take 1 tablet by mouth in the morning. [facility] carvediloL (COREG) 25 mg tablet 2-0 9-16 00:00: 00 08-12 00:00 :00 No [id number] 25mg Take 1 tablet by mouth in the morning and 1 tablet in the evening. Take with meals. [facility] amLODIPine 10 mg tablet 2-0 9-16 00:00: 00 08-12 00:00 :00 No [id number] 10mg Take 1 tablet by mouth in the morning. [facility] lisinopriL 40 mg tablet 2021-0 -16 00:00: 00 08-12 00:00 :00 No [id number] 40mg Take 1 tablet by mouth in the morning. [facility] carvediloL (COREG) 25 mg tablet 2021-0 -16 00:00: 00 08-12 00:00 :00 No [id number] 25mg Take 1 tablet by mouth in the morning and 1 tablet in the evening. Take with meals. [facility] amLODIPine 10 mg tablet 2021-0 16 00:00: 00 08-12 00:00 :00 No [id number] 10mg Take 1 tablet by mouth in the morning. [facility] predniSONE 5 mg tablet 2021-0 -16 00:00: 00 08-09 05:59 :00 No [id number] Take 6 tablets by mouth daily for 7 days, THEN 4 tablets daily for 7 days, THEN 2 tablets daily for 7 days, THEN 1 tablet daily for 100 days. [facility] predniSONE 5 mg tablet 2021-0 -16 00:00: 00 08-09 05:59 :00 No [id number] Take 6 tablets by mouth daily for 7 days, THEN 4 tablets daily for 7 days, THEN 2 tablets daily for 7 days, THEN 1 tablet daily for 100 days. [facility] predniSONE 5 mg tablet 2-0 9-16 00:00: 00 08-09 05:59 :00 No [id number] Take 6 tablets by mouth daily for 7 days, THEN 4 tablets daily for 7 days, THEN 2 tablets daily for 7 days, THEN 1 tablet daily for 100 days. [facility] carvediloL 25 mg tablet 2-0 9-16 00:00: 00 07-09 05:59 :00 No [id number] 25mg Take 1 tablet by mouth in the morning and 1 tablet in the evening. Take with meals. Do all this for 90 days. [facility] divalproex 500 mg EC tablet 04-09 00:00: 00 07-09 05:59 :00 No [id number] 1500mg Take 3 tablets by mouth every 12 (twelve) hours for 90 days. [facility] risperiDONE 1 mg tablet 04-09 00:00: 00 07-09 05:59 :00 No [id number] 1mg Take 1 tablet by mouth in the morning and 1 tablet in the evening. Do all this for 90 days. [facility] carvediloL 25 mg tablet 04-09 00:00: 00 07-09 05:59 :00 No [id number] 25mg Take 1 tablet by mouth in the morning and 1 tablet in the evening. Take with meals. Do all this for 90 days. [facility] divalproex 500 mg EC tablet 04-09 00:00: 00 07-09 05:59 :00 No [id number] 1500mg Take 3 tablets by mouth every 12 (twelve) hours for 90 days. [facility] risperiDONE 1 mg tablet 04-09 00:00: 00 07-09 05:59 :00 No [id number] 1mg Take 1 tablet by mouth in the morning and 1 tablet in the evening. Do all this for 90 days. [facility] carvediloL 25 mg tablet 04-09 00:00: 00 07-09 05:59 :00 No [id number] 25mg Take 1 tablet by mouth in the morning and 1 tablet in the evening. Take with meals. Do all this for 90 days. [facility] divalproex 500 mg EC tablet 04-09 00:00: 00 07-09 05:59 :00 No [id number] 1500mg Take 3 tablets by mouth every 12 (twelve) hours for 90 days. [facility] risperiDONE 1 mg tablet 04-09 00:00: 00 07-09 05:59 :00 No [id number] 1mg Take 1 tablet by mouth in the morning and 1 tablet in the evening. Do all this for 90 days. [facility] divalproex 500 mg EC tablet 04-09 00:00: 00 07-09 05:59 :00 No [id number] 1500mg Take 3 tablets by mouth every 12 (twelve) hours for 90 days. [facility] risperiDONE 1 mg tablet 04-09 00:00: 00 07-09 05:59 :00 No [id number] 1mg Take 1 tablet by mouth in the morning and 1 tablet in the evening. Do all this for 90 days. [facility] divalproex 500 mg EC tablet 04-09 00:00: 00 07-09 05:59 :00 No [id number] 1500mg Take 3 tablets by mouth every 12 (twelve) hours for 90 days. [facility] risperiDONE 1 mg tablet 04-09 00:00: 00 07-09 05:59 :00 No [id number] 1mg Take 1 tablet by mouth in the morning and 1 tablet in the evening. Do all this for 90 days. [facility] divalproex 500 mg EC tablet 04-09 00:00: 00 07-09 05:59 :00 No [id number] 1500mg Take 3 tablets by mouth every 12 (twelve) hours for 90 days. [facility] risperiDONE 1 mg tablet 04-09 00:00: 00 07-09 05:59 :00 No [id number] 1mg Take 1 tablet by mouth in the morning and 1 tablet in the evening. Do all this for 90 days. [facility] divalproex 500 mg EC tablet 04-09 00:00: 00 07-09 05:59 :00 No [id number] 1500mg Take 3 tablets by mouth every 12 (twelve) hours for 90 days. [facility] risperiDONE 1 mg tablet 04-09 00:00: 00 07-09 05:59 :00 No [id number] 1mg Take 1 tablet by mouth in the morning and 1 tablet in the evening. Do all this for 90 days. [facility] divalproex 500 mg EC tablet 04-09 00:00: 00 07-09 05:59 :00 No [id number] 1500mg Take 3 tablets by mouth every 12 (twelve) hours for 90 days. [facility] risperiDONE 1 mg tablet 04-09 00:00: 00 07-09 05:59 :00 No [id number] 1mg Take 1 tablet by mouth in the morning and 1 tablet in the evening. Do all this for 90 days. [facility] divalproex 500 mg EC tablet 04-09 00:00: 00 07-09 05:59 :00 No [id number] 1500mg Take 3 tablets by mouth every 12 (twelve) hours for 90 days. [facility] risperiDONE 1 mg tablet 04-09 00:00: 00 07-09 05:59 :00 No [id number] 1mg Take 1 tablet by mouth in the morning and 1 tablet in the evening. Do all this for 90 days. [facility] divalproex 500 mg EC tablet 04-09 00:00: 00 07-09 05:59 :00 No [id number] 1500mg Take 3 tablets by mouth every 12 (twelve) hours for 90 days. [facility] risperiDONE 1 mg tablet 04-09 00:00: 00 07-09 05:59 :00 No [id number] 1mg Take 1 tablet by mouth in the morning and 1 tablet in the evening. Do all this for 90 days. [facility] divalproex 500 mg EC tablet 04-09 00:00: 00 07-09 05:59 :00 No [id number] 1500mg Take 3 tablets by mouth every 12 (twelve) hours for 90 days. [facility] risperiDONE 1 mg tablet 04-09 00:00: 00 07-09 05:59 :00 No [id number] 1mg Take 1 tablet by mouth in the morning and 1 tablet in the evening. Do all this for 90 days. [facility] divalproex 500 mg EC tablet 04-09 00:00: 00 07-09 05:59 :00 No [id number] 1500mg Take 3 tablets by mouth every 12 (twelve) hours for 90 days. [facility] risperiDONE 1 mg tablet 04-09 00:00: 00 07-09 05:59 :00 No [id number] 1mg Take 1 tablet by mouth in the morning and 1 tablet in the evening. Do all this for 90 days. [facility] divalproex 500 mg EC tablet 04-09 00:00: 00 07-09 05:59 :00 No [id number] 1500mg Take 3 tablets by mouth every 12 (twelve) hours for 90 days. [facility] risperiDONE 1 mg tablet 04-09 00:00: 00 07-09 05:59 :00 No [id number] 1mg Take 1 tablet by mouth in the morning and 1 tablet in the evening. Do all this for 90 days. [facility] divalproex 500 mg EC tablet 04-09 00:00: 00 07-09 05:59 :00 No [id number] 1500mg Take 3 tablets by mouth every 12 (twelve) hours for 90 days. [facility] risperiDONE 1 mg tablet 04-09 00:00: 00 07-09 05:59 :00 No [id number] 1mg Take 1 tablet by mouth in the morning and 1 tablet in the evening. Do all this for 90 days. [facility] divalproex 500 mg EC tablet 04-09 00:00: 00 07-09 05:59 :00 No [id number] 1500mg Take 3 tablets by mouth every 12 (twelve) hours for 90 days. [facility] risperiDONE 1 mg tablet 04-09 00:00: 00 07-09 05:59 :00 No [id number] 1mg Take 1 tablet by mouth in the morning and 1 tablet in the evening. Do all this for 90 days. [facility] divalproex 500 mg EC tablet 04-09 00:00: 00 07-09 05:59 :00 No [id number] 1500mg Take 3 tablets by mouth every 12 (twelve) hours for 90 days. [facility] risperiDONE 1 mg tablet 04-09 00:00: 00 07-09 05:59 :00 No [id number] 1mg Take 1 tablet by mouth in the morning and 1 tablet in the evening. Do all this for 90 days. [facility] divalproex 500 mg EC tablet 04-09 00:00: 00 07-09 05:59 :00 No [id number] 1500mg Take 3 tablets by mouth every 12 (twelve) hours for 90 days. [facility] risperiDONE 1 mg tablet 04-09 00:00: 00 07-09 05:59 :00 No [id number] 1mg Take 1 tablet by mouth in the morning and 1 tablet in the evening. Do all this for 90 days. [facility] divalproex 500 mg EC tablet 04-09 00:00: 00 07-09 05:59 :00 No [id number] 1500mg Take 3 tablets by mouth every 12 (twelve) hours for 90 days. [facility] risperiDONE 1 mg tablet 04-09 00:00: 00 07-09 05:59 :00 No [id number] 1mg Take 1 tablet by mouth in the morning and 1 tablet in the evening. Do all this for 90 days. [facility] divalproex 500 mg EC tablet 04-09 00:00: 00 07-09 05:59 :00 No [id number] 1500mg Take 3 tablets by mouth every 12 (twelve) hours for 90 days. [facility] risperiDONE 1 mg tablet 04-09 00:00: 00 07-09 05:59 :00 No [id number] 1mg Take 1 tablet by mouth in the morning and 1 tablet in the evening. Do all this for 90 days. [facility] predniSONE 5 mg tablet 16 00:00: 00 05-07 00:00 :00 No [id number] Take 6 tablets by mouth daily for 7 days, THEN 4 tablets daily for 7 days, THEN 2 tablets daily for 7 days, THEN 1 tablet daily for 100 days. [facility] carvediloL 25 mg tablet 04-09 00:00: 00 05-05 00:00 :00 No [id number] 25mg Take 1 tablet by mouth in the morning and 1 tablet in the evening. Take with meals. Do all this for 90 days. [facility] predniSONE 5 mg tablet 04-08 00:00: 00 04-09 00:00 :00 No [id number] Take 6 tablets by mouth daily for 5 days, THEN 4 tablets daily for 5 days, THEN 2 tablets daily for 5 days, THEN 1 tablet daily for 100 days. [facility] predniSONE (DELTASONE) tablet 40 mg 04-06 14:00: 00 04-11 13:59 :00 No 40mg 40 mg, Oral, DAILY, 5 doses, First dose on Tue04/06/22 at 0900, Last dose on Tue04/10/22 at 0900, Routine [facility] NaCl 0.9% (NS) injection 10 mL 04-06 11:19: 41 Yes 10mL 10 mL, Slow IV Push, PRN, Starting on Tue04/06/22 at 0619, Until Discontinu ed, Routine, line maintenanc e [facility] lidocaine 1% (PF) (XYLOCAINE) injection 5 mL 04-06 11:19: 41 Yes 5mL 5 mL, Subcutaneo us, PRN, Starting on Tue04/06/22 at 0619, Until Discontinu ed, Routine, Local anesthesia [facility] predniSONE (DELTASONE) tablet 40 mg 04-05 14:00: 00 04-05 13:22 :00 No 40mg 40 mg, Oral, DAILY, 1 dose, First dose (after last modificati on) on 04/05/22 at 0900, Routine [facility] divalproex (DEPAKOTE) EC tablet 1,500 mg 04-04 16:30: 00 Yes 1500mg 1,500 mg, Oral, Q12H, First dose on 04/04/22 at 1130, Until Discontinu ed, Routine [facility] risperiDONE (RISPERDAL) tablet 1 mg 04-04 04:00: 00 Yes 1mg 1 mg, Oral, BID, First dose (after last modificati on) on 04/03/22 at 2300, Until Discontinu ed, Routine [facility] melatonin (MELATIN) tablet 3 mg 04-04 02:00: 00 Yes [id number] 3mg 3 mg, Oral, QHS, First dose on 04/03/22 at 2100, Until Discontinu ed, Routine [facility] pantoprazol e (PROTONIX) EC tablet 40 mg 04-01 14:00: 00 Yes 40mg 40 mg, Oral, DAILY, First dose on Tue04/01/22 at 0900, Until Discontinu ed, Routine [facility] lisinopriL (PRINIVIL,Z ESTRIL) tablet 40 mg 04-01 14:00: 00 Yes 40mg 40 mg, Oral, DAILY, First dose on Tue04/01/22 at 0900, Until Discontinu ed [facility] predniSONE (DELTASONE) tablet 40 mg 04-01 14:00: 00 04-05 11:56 :20 No 40mg 40 mg, Oral, DAILY, First dose (after last modificati on) on Tue04/01/22 at 0900, Until Discontinu ed, Routine [facility] acetaminoph en ADULT (OFIRMEV) injection 1,000 mg 04-01 07:00: 00 04-01 06:43 :00 No 1000mg 1,000 mg, IV Infusion, at 400 mL/hr Administer over 15 Minutes, ONCE NOW, 1 dose, On Tue04/01/22 at 0200, Routine
Indicatio n: Non-periop erative Patient
Approved by: Per Policy (NPO Status) [facility] hydralAZINE (APRESOLINE ) injection 5 mg 04-01 06:12: 29 Yes 5mg 5 mg, Slow IV Push, Q4HPRN, Starting on Tue04/01/22 at 0112, Until Discontinu ed, Routine, DBP=>100; SBP=>160 [facility] valproate (DEPACON) 1,500 mg in D5W piggyback 04-01 05:00: 00 04-04 16:15 :56 No 1500mg 1,500 mg, IV Piggyback, Q12HA1, First dose on Tue04/01/22 at 0000, Until Discontinu ed, Administer over 60 Minutes, 100 mL [facility] atorvastati n (LIPITOR) tablet 20 mg 04-01 02:00: 00 Yes 20mg 20 mg, Oral, QHS, First dose on Tue03/31/22 at 2100, Until Discontinu ed, Routine [facility] amLODIPine (NORVASC) tablet 10 mg 04-01 02:00: 00 Yes 10mg 10 mg, Oral, QHS, First dose on Tue03/31/22 at 2100, Until Discontinu ed, Routine [facility] heparin (porcine) injection 5,000 Units 04-01 01:00: 00 Yes 5000U 5,000 Units, Subcutaneo us, Q12H, First dose on Tue03/31/22 at 2000, Until Discontinu ed, Routine [facility] risperiDONE (RisperDAL M-TAB) disintegrat ing tablet 1 mg 04-01 01:00: 00 04-04 03:55 :54 No 1mg 1 mg, Oral, BID, First dose on Tue03/31/22 at 2000, Until Discontinu ed, Routine [facility] diphenhydrA MINE (BENADRYL) injection 25 mg 03-31 23:15: 00 04-01 07:16 :00 No 25mg 25 mg, Slow IV Push, ONCE, 1 dose, On Tue03/31/22 at 1815, Routine [facility] acetaminoph en (TYLENOL) tablet 325 mg 03-31 22:35: 02 Yes 325mg 325 mg, Oral, Q6HPRN, Starting on Tue03/31/22 at 1735, Until Discontinu ed, Routine, Pain (scale 1-3) [facility] carvediloL (COREG) tablet 25 mg 03-31 22:00: 00 Yes 25mg 25 mg, Oral, BID MEALS, First dose on Tue03/31/22 at 1700, Until Discontinu ed, Routine [facility] azaTHIOprin e (IMURAN) tablet 50 mg 03-31 17:15: 00 04-05 16:03 :26 No 50mg 50 mg, Oral, DAILY, First dose (after last modificati on) on Tue03/31/22 at 1215, Until Discontinu ed, Routine [facility] fosphenytoi n (CEREBYX) 998 mg PE in NaCl 0.9% (NS) piggyback 03-31 17:00: 00 03-31 18:04 :00 No 10mg{ph enytoin 'equiva lent}/k g 998 mg PE (10 mg PE/kg ?99.8 kg), IV Piggyback, ONCE, 1 dose, On Tue03/31/22 at 1200, Administer over 30 Minutes, 100 mL [facility] divalproex ER (DEPAKOTE ER) 24 hr tablet 1,500 mg 03-31 16:45: 00 04-01 03:40 :07 No 1500mg 1,500 mg, Oral, BID, First dose on Tue03/31/22 at 1145, Until Discontinu ed, Routine [facility] NaCl 0.9% (NS) IV infusion 1,000 mL 03-31 16:30: 00 Yes 1000mL at 50 mL/hr, IV Infusion, CONTINUOUS , Starting on Tue03/31/22 at 1130, Until Discontinu ed, Routine [facility] iopamidol (ISOVUE 370-500 mL) injection 130 mL 03-31 16:30: 00 03-31 15:25 :00 No [id number] 130mL 130 mL, Intravenou s, ONCE, 1 dose, On Tue03/31/22 at 1130, Routine [facility] acetaminoph en (TYLENOL) tablet 650 mg 03-31 16:20: 10 Yes 650mg 650 mg, Oral, Q6HPRN, Starting on Tue03/31/22 at 1120, Until Discontinu ed, Routine, Pain (scale 4-6) [facility] docusate (COLACE) capsule 100 mg 03-31 16:20: 10 Yes 100mg 100 mg, Oral, QDAILYPRN, Starting on Tue03/31/22 at 1120, Until Discontinu ed, Routine, Constipati on [facility] hydrOXYzine (ATARAX) 10 mg/5 mL solution 10 mg 03-31 16:19: 24 Yes 10mg 10 mg, Oral, Q6HPRN, Starting on Tue03/31/22 at 1119, Until Discontinu ed, Routine, Anxiety [facility] NEISHA ASPIRIN ORAL 03-31 11:23: 20 03-31 00:00 :00 No 81mg Take 81 mg by mouth daily. [facility] Sennosides (EX-LAX MAXIMUM STRENGTH) 25 mg Tab 03-31 11:23: 20 03-31 00:00 :00 No Take by mouth. [facility] NEISHA ASPIRIN ORAL 03-31 11:23: 20 03-31 00:00 :00 No 81mg Take 81 mg by mouth daily. [facility] Sennosides (EX-LAX MAXIMUM STRENGTH) 25 mg Tab 03-31 11:23: 20 03-31 00:00 :00 No Take by mouth. [facility] NEISHA ASPIRIN ORAL 03-31 11:23: 20 03-31 00:00 :00 No 81mg Take 81 mg by mouth daily. [facility] Sennosides (EX-LAX MAXIMUM STRENGTH) 25 mg Tab 03-31 11:23: 20 03-31 00:00 :00 No Take by mouth. [facility] NEISHA ASPIRIN ORAL 03-31 11:23: 20 03-31 00:00 :00 No 81mg Take 81 mg by mouth daily. [facility] Sennosides (EX-LAX MAXIMUM STRENGTH) 25 mg Tab 03-31 11:23: 03-31 00:00 :00 No Take by mouth. [facility] OMEPRAZOLE/ SODIUM BICARBONATE (ZEGERID OTC ORAL) 03-11 12:21: 03-11 00:00 :00 No Take by mouth. [facility] OMEPRAZOLE/ SODIUM BICARBONATE (ZEGERID OTC ORAL) 03-11 12:21: 03-11 00:00 :00 No Take by mouth. [facility] OMEPRAZOLE/ SODIUM BICARBONATE (ZEGERID OTC ORAL) 03-11 12:21: 03-11 00:00 :00 No Take by mouth. [facility] pantoprazol e 40 mg EC tablet 03-11 00:00: 00 Yes [id number] 40mg Take 1 tablet by mouth in the morning. [facility] pantoprazol e 40 mg EC tablet 03-11 00:00: 00 Yes [id number] 40mg Take 1 tablet by mouth in the morning. [facility] pantoprazol e 40 mg EC tablet 03-11 00:00: 00 Yes [id number] 40mg Take 1 tablet by mouth in the morning. [facility] pantoprazol e 40 mg EC tablet 03-11 00:00: 00 Yes [id number] 40mg Take 1 tablet by mouth in the morning. [facility] pantoprazol e 40 mg EC tablet 0 03-11 00:00: 00 Yes [id number] 40mg Take 1 tablet by mouth in the morning. [facility] pantoprazol e 40 mg EC tablet 2021-0 8-18 00:00: 00 Yes [id number] 40mg Take 1 tablet by mouth in the morning. [facility] pantoprazol e 40 mg EC tablet 2021-0 8-18 00:00: 00 Yes [id number] 40mg Take 1 tablet by mouth in the morning. [facility] pantoprazol e 40 mg EC tablet 2021-0 8-18 00:00: 00 Yes [id number] 40mg Take 1 tablet by mouth in the morning. [facility] pantoprazol e 40 mg EC tablet 0 8-18 00:00: 00 Yes [id number] 40mg Take 1 tablet by mouth in the morning. [facility] pantoprazol e 40 mg EC tablet 0 8-18 00:00: 00 Yes [id number] 40mg Take 1 tablet by mouth in the morning. [facility] pantoprazol e 40 mg EC tablet 0 8-18 00:00: 00 Yes [id number] 40mg Take 1 tablet by mouth in the morning. [facility] pantoprazol e 40 mg EC tablet 0 8-18 00:00: 00 Yes [id number] 40mg Take 1 tablet by mouth in the morning. [facility] pantoprazol e 40 mg EC tablet 2021-0 8-18 00:00: 00 Yes [id number] 40mg Take 1 tablet by mouth in the morning. [facility] pantoprazol e 40 mg EC tablet 2021-0 8-18 00:00: 00 Yes [id number] 40mg Take 1 tablet by mouth in the morning. [facility] pantoprazol e 40 mg EC tablet 0 8-18 00:00: 00 Yes [id number] 40mg Take 1 tablet by mouth in the morning. [facility] pantoprazol e 40 mg EC tablet 2021-0 8-18 00:00: 00 Yes [id number] 40mg Take 1 tablet by mouth in the morning. [facility] pantoprazol e 40 mg EC tablet 2021-0 8-18 00:00: 00 Yes [id number] 40mg Take 1 tablet by mouth in the morning. [facility] pantoprazol e 40 mg EC tablet 2021-0 8-18 00:00: 00 Yes [id number] 40mg Take 1 tablet by mouth in the morning. [facility] pantoprazol e 40 mg EC tablet 2021-0 8-18 00:00: 00 Yes [id number] 40mg Take 1 tablet by mouth in the morning. [facility] pantoprazol e 40 mg EC tablet 2021-0 8-18 00:00: 00 Yes [id number] 40mg Take 1 tablet by mouth in the morning. [facility] pantoprazol e 40 mg EC tablet 2021-0 8-18 00:00: 00 Yes [id number] 40mg Take 1 tablet by mouth in the morning. [facility] pantoprazol e 40 mg EC tablet 2021-0 8-18 00:00: 00 Yes [id number] 40mg Take 1 tablet by mouth in the morning. [facility] pantoprazol e 40 mg EC tablet 2021-0 8-18 00:00: 00 Yes [id number] 40mg Take 1 tablet by mouth in the morning. [facility] pantoprazol e 40 mg EC tablet 2021-0 8-18 00:00: 00 08-12 00:00 :00 No [id number] 40mg Take 1 tablet by mouth in the morning. [facility] pantoprazol e 40 mg EC tablet 2021-0 8-18 00:00: 00 08-12 00:00 :00 No [id number] 40mg Take 1 tablet by mouth in the morning. [facility] pantoprazol e 40 mg EC tablet 2021-0 8-18 00:00: 00 08-12 00:00 :00 No [id number] 40mg Take 1 tablet by mouth in the morning. [facility] pantoprazol e 40 mg EC tablet 2021-0 8-18 00:00: 00 08-12 00:00 :00 No [id number] 40mg Take 1 tablet by mouth in the morning. [facility] pantoprazol e 40 mg EC tablet 2022-0 8-18 00:00: 00 08-12 00:00 :00 No [id number] 40mg Take 1 tablet by mouth in the morning. [facility] predniSONE 20 mg tablet 2021-0 8-18 00:00: 00 06-10 05:59 :00 No [id number] 20mg Take 1 tablet by mouth in the morning for 90 days. [facility] predniSONE 20 mg tablet 2021-0 8-18 00:00: 00 06-10 05:59 :00 No [id number] 20mg Take 1 tablet by mouth in the morning for 90 days. [facility] predniSONE 20 mg tablet 2021-0 8-18 00:00: 00 04-07 00:00 :00 No [id number] 20mg Take 1 tablet by mouth in the morning for 90 days. [facility] predniSONE 20 mg tablet 2021-0 8-18 00:00: 00 04-07 00:00 :00 No [id number] 20mg Take 1 tablet by mouth in the morning for 90 days. [facility] predniSONE 20 mg tablet 2021-0 8-18 00:00: 00 04-07 00:00 :00 No [id number] 20mg Take 1 tablet by mouth in the morning for 90 days. [facility] predniSONE 20 mg tablet 2021-0 8-18 00:00: 00 04-07 00:00 :00 No [id number] 20mg Take 1 tablet by mouth in the morning for 90 days. [facility] amoxicillin -clavulanat e (AUGMENTIN) 875-125 mg per tablet 12 00:00: 00 Yes [id number] 1{tbl} Take 1 tablet by mouth in the morning and 1 tablet in the evening. [facility] amoxicillin -clavulanat e (AUGMENTIN) 875-125 mg per tablet 0 12 00:00: 00 Yes [id number] 1{tbl} Take 1 tablet by mouth in the morning and 1 tablet in the evening. [facility] amoxicillin -clavulanat e (AUGMENTIN) 875-125 mg per tablet 8-12 00:00: 00 03-31 00:00 :00 No [id number] 1{tbl} Take 1 tablet by mouth in the morning and 1 tablet in the evening. [facility] amoxicillin -clavulanat e (AUGMENTIN) 875-125 mg per tablet 812 00:00: 00 03-31 00:00 :00 No [id number] 1{tbl} Take 1 tablet by mouth in the morning and 1 tablet in the evening. [facility] amoxicillin -clavulanat e (AUGMENTIN) 875-125 mg per tablet 03-05 00:00: 00 03-31 00:00 :00 No [id number] 1{tbl} Take 1 tablet by mouth in the morning and 1 tablet in the evening. [facility] amoxicillin -clavulanat e (AUGMENTIN) 875-125 mg per tablet 03-05 00:00: 00 03-31 00:00 :00 No [id number] 1{tbl} Take 1 tablet by mouth in the morning and 1 tablet in the evening. [facility] azaTHIOprin e 50 mg tablet 8 00:00: 00 03-11 00:00 :00 No [id number] 50mg Take 1 tablet by mouth in the morning. [facility] azaTHIOprin e 50 mg tablet 02-28 00:00: 00 03-11 00:00 :00 No [id number] 50mg Take 1 tablet by mouth in the morning. [facility] azaTHIOprin e 50 mg tablet 8 00:00: 00 03-11 00:00 :00 No [id number] 50mg Take 1 tablet by mouth in the morning. [facility] lisinopriL 40 mg tablet 02-21 08:35: 01 Yes 40mg Take 40 mg by mouth in the morning. [facility] lisinopriL 40 mg tablet 02-21 08:35: 01 Yes 40mg Take 40 mg by mouth in the morning. [facility] ferrous sulfate 325 mg (65 mg iron) tablet 02-20 00:00: 00 Yes [id number] 325mg Take 1 tablet by mouth every other day. [facility] ferrous sulfate 325 mg (65 mg iron) tablet 02-20 00:00: 00 Yes [id number] 325mg Take 1 tablet by mouth every other day. [facility] ferrous sulfate 325 mg (65 mg iron) tablet 02-20 00:00: 00 Yes [id number] 325mg Take 1 tablet by mouth every other day. [facility] ferrous sulfate 325 mg (65 mg iron) tablet 02-20 00:00: 00 Yes [id number] 325mg Take 1 tablet by mouth every other day. [facility] ferrous sulfate 325 mg (65 mg iron) tablet 02-20 00:00: 00 Yes [id number] 325mg Take 1 tablet by mouth every other day. [facility] ferrous sulfate 325 mg (65 mg iron) tablet 02-20 00:00: 00 Yes [id number] 325mg Take 1 tablet by mouth every other day. [facility] ferrous sulfate 325 mg (65 mg iron) tablet 02-20 00:00: 00 Yes [id number] 325mg Take 1 tablet by mouth every other day. [facility] ferrous sulfate 325 mg (65 mg iron) tablet 02-20 00:00: 00 Yes [id number] 325mg Take 1 tablet by mouth every other day. [facility] ferrous sulfate 325 mg (65 mg iron) tablet 02-20 00:00: 00 Yes [id number] 325mg Take 1 tablet by mouth every other day. [facility] ferrous sulfate 325 mg (65 mg iron) tablet 02-20 00:00: 00 Yes [id number] 325mg Take 1 tablet by mouth every other day. [facility] ferrous sulfate 325 mg (65 mg iron) tablet 02-20 00:00: 00 Yes [id number] 325mg Take 1 tablet by mouth every other day. [facility] ferrous sulfate 325 mg (65 mg iron) tablet 02-20 00:00: 00 Yes [id number] 325mg Take 1 tablet by mouth every other day. [facility] ferrous sulfate 325 mg (65 mg iron) tablet 02-20 00:00: 00 Yes [id number] 325mg Take 1 tablet by mouth every other day. [facility] ferrous sulfate 325 mg (65 mg iron) tablet 02-20 00:00: 00 Yes [id number] 325mg Take 1 tablet by mouth every other day. [facility] ferrous sulfate 325 mg (65 mg iron) tablet 02-20 00:00: 00 Yes [id number] 325mg Take 1 tablet by mouth every other day. [facility] ferrous sulfate 325 mg (65 mg iron) tablet 02-20 00:00: 00 Yes [id number] 325mg Take 1 tablet by mouth every other day. [facility] ferrous sulfate 325 mg (65 mg iron) tablet 02-20 00:00: 00 Yes [id number] 325mg Take 1 tablet by mouth every other day. [facility] ferrous sulfate 325 mg (65 mg iron) tablet 02-20 00:00: 00 Yes [id number] 325mg Take 1 tablet by mouth every other day. [facility] ferrous sulfate 325 mg (65 mg iron) tablet 02-20 00:00: 00 Yes [id number] 325mg Take 1 tablet by mouth every other day. [facility] ferrous sulfate 325 mg (65 mg iron) tablet 02-20 00:00: 00 Yes [id number] 325mg Take 1 tablet by mouth every other day. [facility] ferrous sulfate 325 mg (65 mg iron) tablet 0 02-20 00:00: 00 Yes [id number] 325mg Take 1 tablet by mouth every other day. [facility] ferrous sulfate 325 mg (65 mg iron) tablet 02-20 00:00: 00 Yes [id number] 325mg Take 1 tablet by mouth every other day. [facility] ferrous sulfate 325 mg (65 mg iron) tablet 02-20 00:00: 00 Yes [id number] 325mg Take 1 tablet by mouth every other day. [facility] ferrous sulfate 325 mg (65 mg iron) tablet 02-20 00:00: 00 08-12 00:00 :00 No [id number] 325mg Take 1 tablet by mouth every other day. [facility] ferrous sulfate 325 mg (65 mg iron) tablet 02-20 00:00: 00 08-12 00:00 :00 No [id number] 325mg Take 1 tablet by mouth every other day. [facility] ferrous sulfate 325 mg (65 mg iron) tablet 02-20 00:00: 00 08-12 00:00 :00 No [id number] 325mg Take 1 tablet by mouth every other day. [facility] ferrous sulfate 325 mg (65 mg iron) tablet 02-20 00:00: 00 08-12 00:00 :00 No [id number] 325mg Take 1 tablet by mouth every other day. [facility] ferrous sulfate 325 mg (65 mg iron) tablet 02-20 00:00: 08-12 00:00 :00 No [id number] 325mg Take 1 tablet by mouth every other day. [facility] carvedilol (COREG) 25 mg tablet 02-19 20:35: 38 Yes 25mg Take 25 mg by mouth 2 (two) times daily with meals. [facility] omega-3s-dh a-epa-fish oil-D3 (FISH OIL-VIT D3) 360 mg-1,200 mg -1,000 unit Cap 02-19 20:35: 38 Yes Take by mouth. [facility] NEISHA ASPIRIN ORAL 02-19 20:35: 38 Yes 81mg Take 81 mg by mouth daily. [facility] atorvastati n (LIPITOR) 20 mg tablet 02-19 20:35: 38 Yes 20mg Take 20 mg by mouth at bedtime. [facility] MULTIVITS-M INERALS/FA/ LYCOPENE (ONE-A-DAY MEN'S MULTIVITAMI N ORAL) 02-19 20:35: 38 Yes Take by mouth. [facility] Sennosides (EX-LAX MAXIMUM STRENGTH) 25 mg Tab 02-19 20:35: 38 Yes Take by mouth. [facility] ibuprofen (ADVIL) 200 mg tablet 02-19 20:35: 38 Yes 200mg Take 200 mg by mouth 2 (two) times daily with meals. [facility] POTASSIUM-9 9 ORAL 02-19 20:35: 38 Yes 99mg Take 99 mg by mouth daily. [facility] vitamin B-12 100 mcg tablet 02-19 20:35: 38 Yes 2500ug Take 2,500 mcg by mouth daily. [facility] carvedilol (COREG) 25 mg tablet 02-19 20:35: 38 Yes 25mg Take 25 mg by mouth 2 (two) times daily with meals. [facility] omega-3s-dh a-epa-fish oil-D3 (FISH OIL-VIT D3) 360 mg-1,200 mg -1,000 unit Cap 02-19 20:35: 38 Yes Take by mouth. [facility] NEISHA ASPIRIN ORAL 02-19 20:35: 38 Yes 81mg Take 81 mg by mouth daily. [facility] atorvastati n (LIPITOR) 20 mg tablet 02-19 20:35: 38 Yes 20mg Take 20 mg by mouth at bedtime. [facility] MULTIVITS-M INERALS/FA/ LYCOPENE (ONE-A-DAY MEN'S MULTIVITAMI N ORAL) 02-19 20:35: 38 Yes Take by mouth. [facility] Sennosides (EX-LAX MAXIMUM STRENGTH) 25 mg Tab 02-19 20:35: 38 Yes Take by mouth. [facility] ibuprofen (ADVIL) 200 mg tablet 02-19 20:35: 38 Yes 200mg Take 200 mg by mouth 2 (two) times daily with meals. [facility] POTASSIUM-9 9 ORAL 02-19 20:35: 38 Yes 99mg Take 99 mg by mouth daily. [facility] vitamin B-12 100 mcg tablet 02-19 20:35: 38 Yes 2500ug Take 2,500 mcg by mouth daily. [facility] divalproex ER 500 mg 24 hr tablet 02-19 00:00: 00 Yes [id number] 1000mg Take 2 tablets by mouth in the morning and 2 tablets in the evening. [facility] hydrOXYzine 10 mg/5 mL solution 02-19 00:00: 00 Yes [id number] 10mg Take 5 mL by mouth every 6 (six) hours as needed for Anxiety. [facility] risperiDONE 1 mg disintegrat ing tablet 02-19 00:00: 00 Yes [id number] 1mg Take 1 tablet by mouth in the morning and 1 tablet in the evening. [facility] divalproex ER 500 mg 24 hr tablet 02-19 00:00: 00 Yes [id number] 1000mg Take 2 tablets by mouth in the morning and 2 tablets in the evening. [facility] hydrOXYzine 10 mg/5 mL solution 02-19 00:00: 00 Yes [id number] 10mg Take 5 mL by mouth every 6 (six) hours as needed for Anxiety. [facility] risperiDONE 1 mg disintegrat ing tablet 02-19 00:00: 00 Yes [id number] 1mg Take 1 tablet by mouth in the morning and 1 tablet in the evening. [facility] hydrOXYzine 10 mg/5 mL solution 02-19 00:00: 00 Yes [id number] 10mg Take 5 mL by mouth every 6 (six) hours as needed for Anxiety. [facility] hydrOXYzine 10 mg/5 mL solution 02-19 00:00: 00 Yes [id number] 10mg Take 5 mL by mouth every 6 (six) hours as needed for Anxiety. [facility] hydrOXYzine 10 mg/5 mL solution 02-19 00:00: 00 Yes [id number] 10mg Take 5 mL by mouth every 6 (six) hours as needed for Anxiety. [facility] hydrOX[facility]/5 mL solution 0 02-19 00:00: 00 Yes [id number] 10mg Take 5 mL by mouth every 6 (six) hours as needed for Anxiety. [facility] hydrOXYzine 10 mg/5 mL solution 2021-0 02-19 00:00: 00 Yes [id number] 10mg Take 5 mL by mouth every 6 (six) hours as needed for Anxiety. [facility] hydrOXYzine 10 mg/5 mL solution 0 02-19 00:00: 00 Yes [id number] 10mg Take 5 mL by mouth every 6 (six) hours as needed for Anxiety. [facility] hydrOXYzine 10 mg/5 mL solution 2021-0 02-19 00:00: 00 Yes [id number] 10mg Take 5 mL by mouth every 6 (six) hours as needed for Anxiety. [facility] hydrOXYzine 10 mg/5 mL solution 0 02-19 00:00: 00 Yes [id number] 10mg Take 5 mL by mouth every 6 (six) hours as needed for Anxiety. [facility] hydrOXYzine 10 mg/5 mL solution 0 02-19 00:00: 00 Yes [id number] 10mg Take 5 mL by mouth every 6 (six) hours as needed for Anxiety. [facility] hydrOXYzine 10 mg/5 mL solution 2021-0 02-19 00:00: 00 Yes [id number] 10mg Take 5 mL by mouth every 6 (six) hours as needed for Anxiety. [facility] hydrOXYzine 10 mg/5 mL solution 2021-0 02-19 00:00: 00 Yes [id number] 10mg Take 5 mL by mouth every 6 (six) hours as needed for Anxiety. [facility] hydrOXYzine 10 mg/5 mL solution 2021-0 02-19 00:00: 00 Yes [id number] 10mg Take 5 mL by mouth every 6 (six) hours as needed for Anxiety. [facility] hydrOXYzine 10 mg/5 mL solution 2021-0 02-19 00:00: 00 Yes [id number] 10mg Take 5 mL by mouth every 6 (six) hours as needed for Anxiety. [facility] hydrOXYzine 10 mg/5 mL solution 2021-0 02-19 00:00: 00 Yes [id number] 10mg Take 5 mL by mouth every 6 (six) hours as needed for Anxiety. [facility] hydrOXYzine 10 mg/5 mL solution 0 02-19 00:00: 00 Yes [id number] 10mg Take 5 mL by mouth every 6 (six) hours as needed for Anxiety. [facility] hydrOXYzine 10 mg/5 mL solution 2021-0 02-19 00:00: 00 Yes [id number] 10mg Take 5 mL by mouth every 6 (six) hours as needed for Anxiety. [facility] hydrOXYzine 10 mg/5 mL solution 2021-0 02-19 00:00: 00 Yes [id number] 10mg Take 5 mL by mouth every 6 (six) hours as needed for Anxiety. [facility] hydrOXYzine 10 mg/5 mL solution 2021-0 02-19 00:00: 00 Yes [id number] 10mg Take 5 mL by mouth every 6 (six) hours as needed for Anxiety. [facility] hydrOXYzine 10 mg/5 mL solution 0 02-19 00:00: 00 Yes [id number] 10mg Take 5 mL by mouth every 6 (six) hours as needed for Anxiety. [facility] hydrOXYzine 10 mg/5 mL solution 0 02-19 00:00: 00 Yes [id number] 10mg Take 5 mL by mouth every 6 (six) hours as needed for Anxiety. [facility] hydrOXYzine 10 mg/5 mL solution 2021-0 02-19 00:00: 00 Yes [id number] 10mg Take 5 mL by mouth every 6 (six) hours as needed for Anxiety. [facility] hydrOXYzine 10 mg/5 mL solution 0 02-19 00:00: 00 20208-12 00:00 :00 No [id number] 10mg Take 5 mL by mouth every 6 (six) hours as needed for Anxiety. [facility] hydrOXYzine 10 mg/5 mL solution 02-19 00:00: 00 08-12 00:00 :00 No [id number] 10mg Take 5 mL by mouth every 6 (six) hours as needed for Anxiety. [facility] hydrOXYzine 10 mg/5 mL solution 02-19 00:00: 00 08-12 00:00 :00 No [id number] 10mg Take 5 mL by mouth every 6 (six) hours as needed for Anxiety. [facility] hydrOXYzine 10 mg/5 mL solution 02-19 00:00: 00 08-12 00:00 :00 No [id number] 10mg Take 5 mL by mouth every 6 (six) hours as needed for Anxiety. [facility] hydrOXYzine 10 mg/5 mL solution 02-19 00:00: 00 08-12 00:00 :00 No [id number] 10mg Take 5 mL by mouth every 6 (six) hours as needed for Anxiety. [facility] amLODIPine 10 mg tablet 02-19 00:00: 00 05-21 04:59 :00 No [id number] 10mg Take 1 tablet by mouth at bedtime for 90 days. [facility] amLODIPine 10 mg tablet 02-19 00:00: 00 05-21 04:59 :00 No [id number] 10mg Take 1 tablet by mouth at bedtime for 90 days. [facility] divalproex ER 500 mg 24 hr tablet 02-19 00:00: 00 04-09 00:00 :00 No [id number] 1000mg Take 2 tablets by mouth in the morning and 2 tablets in the evening. [facility] risperiDONE 1 mg disintegrat ing tablet 02-19 00:00: 00 04-09 00:00 :00 No [id number] 1mg Take 1 tablet by mouth in the morning and 1 tablet in the evening. [facility] amLODIPine 10 mg tablet 02-19 00:00: 04-09 00:00 :00 No [id number] 10mg Take 1 tablet by mouth at bedtime for 90 days. [facility] divalproex ER 500 mg 24 hr tablet 02-19 00:00: 00 04-09 00:00 :00 No [id number] 1000mg Take 2 tablets by mouth in the morning and 2 tablets in the evening. [facility] risperiDONE 1 mg disintegrat ing tablet 02-19 00:00: 00 04-09 00:00 :00 No [id number] 1mg Take 1 tablet by mouth in the morning and 1 tablet in the evening. [facility] amLODIPine 10 mg tablet 02-19 00:00: 00 04-09 00:00 :00 No [id number] 10mg Take 1 tablet by mouth at bedtime for 90 days. [facility] divalproex ER 500 mg 24 hr tablet 02-19 00:00: 00 04-09 00:00 :00 No [id number] 1000mg Take 2 tablets by mouth in the morning and 2 tablets in the evening. [facility] risperiDONE 1 mg disintegrat ing tablet 02-19 00:00: 00 04-09 00:00 :00 No [id number] 1mg Take 1 tablet by mouth in the morning and 1 tablet in the evening. [facility] amLODIPine 10 mg tablet 02-19 00:00: 00 04-09 00:00 :00 No [id number] 10mg Take 1 tablet by mouth at bedtime for 90 days. [facility] divalproex ER 500 mg 24 hr tablet 02-19 00:00: 00 04-09 00:00 :00 No [id number] 1000mg Take 2 tablets by mouth in the morning and 2 tablets in the evening. [facility] risperiDONE 1 mg disintegrat ing tablet 0 02-19 00:00: 00 04-09 00:00 :00 No [id number] 1mg Take 1 tablet by mouth in the morning and 1 tablet in the evening. [facility] amLODIPine 10 mg tablet 02-19 00:00: 00 04-09 00:00 :00 No [id number] 10mg Take 1 tablet by mouth at bedtime for 90 days. [facility] predniSONE 5 mg tablet 02-19 00:00: 00 03-11 00:00 :00 No [id number] Take 8 tablets by mouth daily for 3 days, THEN 6 tablets daily for 3 days, THEN 4 tablets daily for 3 days, THEN 3 tablets daily for 3 days, THEN 1.5 tablets daily for 100 days. [facility] predniSONE 5 mg tablet 02-19 00:00: 00 03-11 00:00 :00 No [id number] Take 8 tablets by mouth daily for 3 days, THEN 6 tablets daily for 3 days, THEN 4 tablets daily for 3 days, THEN 3 tablets daily for 3 days, THEN 1.5 tablets daily for 100 days. [facility] predniSONE 5 mg tablet 02-19 00:00: 00 03-11 00:00 :00 No [id number] Take 8 tablets by mouth daily for 3 days, THEN 6 tablets daily for 3 days, THEN 4 tablets daily for 3 days, THEN 3 tablets daily for 3 days, THEN 1.5 tablets daily for 100 days. [facility] Topiramate 25 MG Topiramate 25 [...] 50-325-40 mg tablet 18 00:00: 00 Yes [id number] 1{tbl} Take 1 tablet by mouth every 6 (six) hours as needed for Pain (scale 7-10). [facility] butalbital- acetaminoph en-caff 50-325-40 mg tablet 18 00:00: 00 Yes [id number] 1{tbl} Take 1 tablet by mouth every 6 (six) hours as needed for Pain (scale 7-10). [facility] butalbital- acetaminoph en-caff 50-325-40 mg tablet 04-11 00:00: 00 03-31 00:00 :00 No [id number] 1{tbl} Take 1 tablet by mouth every 6 (six) hours as needed for Pain (scale 7-10). [facility] butalbital- acetaminoph en-caff 50-325-40 mg tablet 04-11 00:00: 00 03-31 00:00 :00 No [id number] 1{tbl} Take 1 tablet by mouth every 6 (six) hours as needed for Pain (scale 7-10). [facility] butalbital- acetaminoph en-caff 50-325-40 mg tablet 04-11 00:00: 00 03-31 00:00 :00 No [id number] 1{tbl} Take 1 tablet by mouth every 6 (six) hours as needed for Pain (scale 7-10). [facility] butalbital- acetaminoph en-caff 50-325-40 mg tablet 04-11 00:00: 00 03-31 00:00 :00 No [id number] 1{tbl} Take 1 tablet by mouth every 6 (six) hours as needed for Pain (scale 7-10). [facility] ProAir HFA 108 (90 Base) [...] 500 mg tablet 04-19 00:00: 00 Yes [id number] 500mg Take 1 tablet by mouth 2 (two) times daily with meals. [facility] metFORMIN 500 mg tablet 04-19 00:00: 00 Yes [id number] 500mg Take 1 tablet by mouth 2 (two) times daily with meals. [facility] metFORMIN 500 mg tablet 04-19 00:00: 00 Yes [id number] 500mg Take 1 tablet by mouth 2 (two) times daily with meals. [facility] metFORMIN 500 mg tablet 04-19 00:00: 00 Yes [id number] 500mg Take 1 tablet by mouth 2 (two) times daily with meals. [facility] metFORMIN 500 mg tablet 04-19 00:00: 00 Yes [id number] 500mg Take 1 tablet by mouth 2 (two) times daily with meals. [facility] metFORMIN 500 mg tablet 04-19 00:00: 00 Yes [id number] 500mg Take 1 tablet by mouth 2 (two) times daily with meals. [facility] metFORMIN 500 mg tablet 04-19 00:00: 00 Yes [id number] 500mg Take 1 tablet by mouth 2 (two) times daily with meals. [facility] metFORMIN 500 mg tablet 04-19 00:00: 00 Yes [id number] 500mg Take 1 tablet by mouth 2 (two) times daily with meals. [facility] metFORMIN 500 mg tablet 04-19 00:00: 00 Yes [id number] 500mg Take 1 tablet by mouth 2 (two) times daily with meals. [facility] metFORMIN 500 mg tablet 04-19 00:00: 00 Yes [id number] 500mg Take 1 tablet by mouth 2 (two) times daily with meals. [facility] metFORMIN 500 mg tablet 04-19 00:00: 00 Yes [id number] 500mg Take 1 tablet by mouth 2 (two) times daily with meals. [facility] metFORMIN 500 mg tablet 04-19 00:00: 00 Yes [id number] 500mg Take 1 tablet by mouth 2 (two) times daily with meals. [facility] metFORMIN 500 mg tablet 04-19 00:00: 00 Yes [id number] 500mg Take 1 tablet by mouth 2 (two) times daily with meals. [facility] metFORMIN 500 mg tablet 04-19 00:00: 00 Yes [id number] 500mg Take 1 tablet by mouth 2 (two) times daily with meals. [facility] metFORMIN 500 mg tablet 04-19 00:00: 00 Yes [id number] 500mg Take 1 tablet by mouth 2 (two) times daily with meals. [facility] metFORMIN 500 mg tablet 04-19 00:00: 00 Yes [id number] 500mg Take 1 tablet by mouth 2 (two) times daily with meals. [facility] metFORMIN 500 mg tablet 04-19 00:00: 00 Yes [id number] 500mg Take 1 tablet by mouth 2 (two) times daily with meals. [facility] metFORMIN 500 mg tablet 04-19 00:00: 00 Yes [id number] 500mg Take 1 tablet by mouth 2 (two) times daily with meals. [facility] metFORMIN 500 mg tablet 04-19 00:00: 00 Yes [id number] 500mg Take 1 tablet by mouth 2 (two) times daily with meals. [facility] metFORMIN 500 mg tablet 04-19 00:00: 00 Yes [id number] 500mg Take 1 tablet by mouth 2 (two) times daily with meals. [facility] metFORMIN 500 mg tablet 04-19 00:00: 00 Yes [id number] 500mg Take 1 tablet by mouth 2 (two) times daily with meals. [facility] metFORMIN 500 mg tablet 04-19 00:00: 00 Yes [id number] 500mg Take 1 tablet by mouth 2 (two) times daily with meals. [facility] metFORMIN 500 mg tablet 04-19 00:00: 00 Yes [id number] 500mg Take 1 tablet by mouth 2 (two) times daily with meals. [facility] metFORMIN 500 mg tablet 04-19 00:00: 00 08-12 00:00 :00 No [id number] 500mg Take 1 tablet by mouth 2 (two) times daily with meals. [facility] metFORMIN 500 mg tablet 04-19 00:00: 00 08-12 00:00 :00 No [id number] 500mg Take 1 tablet by mouth 2 (two) times daily with meals. [facility] metFORMIN 500 mg tablet 04-19 00:00: 08-12 00:00 :00 No [id number] 500mg Take 1 tablet by mouth 2 (two) times daily with meals. [facility] metFORMIN 500 mg tablet 04-19 00:00: 00 08-12 00:00 :00 No [id number] 500mg Take 1 tablet by mouth 2 (two) times daily with meals. [facility] metFORMIN 500 mg tablet 04-19 00:00: 08-12 00:00 :00 No [id number] 500mg Take 1 tablet by mouth 2 (two) times daily with meals. [facility] Metformin HCl 850 MG Metformin [...] ONE TABLET BY MOUTH TWICE A DAY [facility] Metformin HCl 850 MG Metformin [...] [email or web address] Body weight 2023-08-16 15:05:00 135.172 kg [facility] BMI 2023-08-16 15:05:00 35.34 kg/m2 [facility] Systolic blood pressure 2023-07-26 20:54:00 146 mm[Hg] [facility] Diastolic blood pressure 2023-07-26 20:54:00 94 mm[Hg] [facility] Heart rate 2023-07-26 20:54:00 73 /min [facility] Body temperature 2023-07-26 20:53:[address] [facility] Respiratory rate 2023-07-26 20:53:00 20 /min [facility] Body height 2023-07-26 20:53:00 195.6 cm [facility] Body weight 2023-07-26 20:53:00 135.58 kg [facility] BMI 2023-07-26 20:53:00 35.44 kg/m2 [facility] Oxygen saturation in Arterial blood by Pulse oximetry 2023-07-26 20:53:00 97 /min [facility] Body weight 2023-06-14 16:00:00 129.275 kg [facility] BMI 2023-06-14 16:00:00 34.69 kg/m2 [facility] Systolic blood pressure 2023-06-03 17:21:00 149 mm[Hg] [facility] Diastolic blood pressure 2023-06-03 17:21:00 72 mm[Hg] [facility] Heart rate 2023-06-03 17:21:00 67 /min [facility] Body temperature 2023-06-03 17:21:[address] [facility] Respiratory rate 2023-06-03 17:21:00 18 /min [facility] Oxygen saturation in Arterial blood by Pulse oximetry 2023-06-03 17:21:00 96 /min [facility] Body height 2023-06-03 14:12:00 193 cm [facility] Body weight 2023-06-03 14:12:00 129.366 kg [facility] BMI 2023-06-03 14:12:00 34.72 kg/m2 [facility] Systolic blood pressure 2023-05-27 19:43:00 168 mm[Hg] [facility] Diastolic blood pressure 2023-05-27 19:43:00 102 mm[Hg] [facility] Heart rate 2023-05-27 19:42:00 81 /min [facility] Body temperature 2023-05-27 19:42:[address] [facility] Respiratory rate 2023-05-27 19:42:00 20 /min [facility] Body height 2023-05-27 19:42:00 193 cm [facility] Body weight 2023-05-27 19:42:00 131.09 kg [facility] BMI 2023-05-27 19:42:00 35.18 kg/m2 [facility] Oxygen saturation in Arterial blood by Pulse oximetry 2023-05-27 19:42:00 97 /min [facility] Systolic blood pressure 2023-03-21 19:00:00 145 mm[Hg] [facility] Diastolic blood pressure 2023-03-21 19:00:00 77 mm[Hg] [facility] Heart rate 2023-03-21 19:00:00 71 /min [facility] Body temperature 2023-03-21 19:00:[address] [facility] Respiratory rate 2023-03-21 19:00:00 20 /min [facility] Oxygen saturation in Arterial blood by Pulse oximetry 2023-03-21 13:00:00 94 /min [facility] Body height 2023-03-21 06:00:00 195.6 cm [facility] Body weight 2023-03-20 22:13:00 125.193 kg [facility] BMI 2023-03-20 22:13:00 32.73 kg/m2 [facility] Systolic blood pressure 2023-02-16 16:15:00 114 mm[Hg] [facility] Diastolic blood pressure 2023-02-16 16:15:00 60 mm[Hg] [facility] Heart rate 2023-02-16 16:15:00 80 /min [facility] Body temperature 2023-02-16 16:15:[address] [facility] Respiratory rate 2023-02-16 16:15:00 17 /min [facility] Oxygen saturation in Arterial blood by Pulse oximetry 2023-02-16 16:15:00 94 /min [facility] Body weight 2023-02-14 18:00:00 120 kg [facility] BMI 2023-02-14 18:00:00 31.37 kg/m2 [facility] Body height 2023-02-14 04:21:00 195.6 cm [facility] Systolic blood pressure 2023-01-18 18:25:00 144 mm[Hg] [facility] Diastolic blood pressure 2023-01-18 18:25:00 85 mm[Hg] [facility] Heart rate 2023-01-18 18:25:00 90 /min [facility] Body temperature 2023-01-18 18:25:[address] [facility] Body height 2023-01-18 18:25:00 [facility] 2023-01-18 18:25:[address] [facility] BMI 2023-01-18 18:25:00 37.94 kg/m2 [facility] Oxygen saturation in Arterial blood by Pulse oximetry 2023-01-18 18:25:00 96 /min [facility] Body weight 2022-12-14 15:26:00 121.11 kg [facility] BMI 2022-12-14 15:26:00 32.50 kg/m2 [facility] Systolic blood pressure 2022-12-01 20:22:00 139 mm[Hg] [facility] Diastolic blood pressure 2022-12-01 20:22:00 80 mm[Hg] [facility] Heart rate 2022-12-01 20:22:00 66 /min [facility] Respiratory rate 2022-12-01 20:22:00 18 /min [facility] Oxygen saturation in Arterial blood by Pulse oximetry 2022-12-01 20:22:00 98 /min [facility] Body temperature 2022-12-01 13:57:[address] [facility] Body height 2022-12-01 13:57:[address] [facility] Body weight 2022-12-01 13:57:00 121.11 kg [facility] BMI 2022-12-01 13:57:00 32.50 kg/m2 [facility] Systolic blood pressure 2022-10-26 12:36:00 143 mm[Hg] [facility] Diastolic blood pressure 2022-10-26 12:36:00 88 mm[Hg] [facility] Heart rate 2022-10-26 12:36:00 59 /min [facility] Oxygen saturation in Arterial blood by Pulse oximetry 2022-10-26 12:36:00 100 /min [facility] Body temperature 2022-10-26 12:34:[address] [facility] Respiratory rate 2022-10-26 12:34:00 16 /min [facility] Body height 2022-10-25 13:48:00 193 cm [facility] Body weight 2022-10-25 13:48:00 118.842 kg [facility] BMI 2022-10-25 13:48:00 31.89 kg/m2 [facility] Systolic blood pressure 2022-06-10 16:10:00 137 mm[Hg] [facility] Diastolic blood pressure 2022-06-10 16:10:00 89 mm[Hg] [facility] Heart rate 2022-06-10 16:09:00 84 /min [facility] Body temperature 2022-06-10 16:09:[address] [facility] Respiratory rate 2022-06-10 16:09:00 19 /min [facility] Body height 2022-06-10 16:09:00 193 cm [facility] Body weight 2022-06-10 16:09:00 108.138 kg [facility] BMI 2022-06-10 16:09:00 29.02 kg/m2 [facility] Oxygen saturation in Arterial blood by Pulse oximetry 2022-06-10 16:09:00 100 /min [facility] Systolic blood pressure 2022-06-03 18:24:00 129 mm[Hg] [facility] Diastolic blood pressure 2022-06-03 18:24:00 73 mm[Hg] [facility] Heart rate 2022-06-03 18:24:00 68 /min [facility] Respiratory rate 2022-06-03 18:24:00 20 /min [facility] Oxygen saturation in Arterial blood by Pulse oximetry 2022-06-03 18:24:00 99 /min [facility] Body temperature 2022-06-03 14:34:[address] [facility] Body height 2022-06-03 14:34:00 190.5 cm [facility] Body weight 2022-06-03 14:34:00 107.049 kg [facility] BMI 2022-06-03 14:34:00 29.50 kg/m2 [facility] Systolic blood pressure 2022-05-20 21:37:00 141 mm[Hg] [facility] Diastolic blood pressure 2022-05-20 21:37:00 93 mm[Hg] [facility] Heart rate 2022-05-20 21:37:00 53 /min [facility] Respiratory rate 2022-05-20 21:37:00 16 /min [facility] Oxygen saturation in Arterial blood by Pulse oximetry 2022-05-20 21:37:00 99 /min [facility] Body temperature 2022-05-20 14:12:[address] [facility] Body height 2022-05-20 14:12:00 193 cm [facility] Body weight 2022-05-20 14:12:00 101.152 kg [facility] BMI 2022-05-20 14:12:00 27.14 kg/m2 [facility] Systolic blood pressure 2022-05-08 18:04:00 135 mm[Hg] [facility] Diastolic blood pressure 2022-05-08 18:04:00 92 mm[Hg] [facility] Heart rate 2022-05-08 18:04:00 68 /min [facility] Body temperature 2022-05-08 18:04:[address] [facility] Respiratory rate 2022-05-08 18:04:00 19 /min [facility] Oxygen saturation in Arterial blood by Pulse oximetry 2022-05-08 18:04:00 100 /min [facility] Body height 2022-05-05 21:15:00 193 cm [facility] Body weight 2022-05-05 14:17:00 98.884 kg [facility] BMI 2022-05-05 14:17:00 26.54 kg/m2 [facility] Systolic blood pressure 2022-04-10 01:03:00 152 mm[Hg] [facility] Diastolic blood pressure 2022-04-10 01:03:00 102 mm[Hg] [facility] Heart rate 2022-04-10 01:03:00 74 /min [facility] Body temperature 2022-04-10 01:03:[address] [facility] Oxygen saturation in Arterial blood by Pulse oximetry 2022-04-09 21:44:00 98 /min [facility] Respiratory rate 2022-04-09 16:46:00 20 /min [facility] Body height 2022-04-01 03:47:00 193 cm [facility] Body weight 2022-04-01 03:47:00 99.791 kg [facility] BMI 2022-04-01 03:47:00 26.78 kg/m2 [facility] [facility] Body height 2022-03-23 15:45:00 193 cm [facility] Body weight 2022-03-23 15:45:00 105.235 kg [facility] BMI 2022-03-23 15:45:00 28.24 kg/m2 [facility] Systolic blood pressure 2022-03-11 15:06:00 149 mm[Hg] [facility] Diastolic blood pressure 2022-03-11 15:06:00 90 mm[Hg] [facility] Heart rate 2022-03-11 15:06:00 71 /min [facility] Body weight 2022-03-11 15:06:00 105.235 kg [facility] BMI 2022-03-11 15:06:00 28.24 kg/m2 [facility] height 2020-08-07 16:40:00 76 [in_i] Commo n [facility] weight 2020-08-07 16:40:00 243.2 [lb_av] Co mmon [facility] temperature 2020-08-07 16:40:00 98.3 [degF] Com mon [facility] bmi 2020-08-07 16:40:00 29.6 kg/m2 Commo n [facility] oximetry 2020-08-07 16:40:00 98 % Commo n [facility] respiratory rate 2020-08-07 16:40:00 16 /min Common [facility] blood pressure systolic 2020-08-07 16:40:00 139 mm[Hg] [facility] blood pressure diastolic 2020-08-07 16:40:00 71 mm[Hg] [facility] height 2020-05-08 09:00:00 76 [in_i] Commo n [facility] weight 2020-05-08 09:00:00 258.8 [lb_av] Co [facility] temperature 2020-05-08 09:00:00 98.1 [degF] Com [facility] bmi 2020-05-08 09:00:00 31.5 kg/m2 Commo n [facility] oximetry 2020-05-08 09:00:00 98 % Commo n [facility] respiratory rate 2020-05-08 09:00:00 16 /min [facility] blood pressure systolic 2020-05-08 09:00:00 128 mm[Hg] Common [facility] blood pressure diastolic 2020-05-08 09:00:00 72 mm[Hg] Common [facility] height 2020-04-17 08:20:00 76 [in_i] Commo n [facility] weight 2020-04-17 08:20:00 261.6 [lb_av] Co mmon [facility] temperature 2020-04-17 08:20:00 97.8 [degF] Com [facility] bmi 2020-04-17 08:20:00 31.84 kg/m2 Comm on [facility] oximetry 2020-04-17 08:20:00 98 % Commo n [facility] respiratory rate 2020-04-17 08:20:00 16 /min [facility] blood pressure systolic 2020-04-17 08:20:00 126 mm[Hg] [facility] blood pressure diastolic 2020-04-17 08:20:00 80 mm[Hg] Common [facility] Procedures Procedure Date / Time Performed Performing Clinician Source AUTOMATED VISUAL FIELD, EXTENDED - OU - BOTH EYES 2023-08-16 16:32:[address] [facility] REFERRAL- REQUEST/RESPONSE 2023-07-26 06:01:00 Doctor Unassigned, Story [facility] OCT, OPTIC NERVE - OU - BOTH EYES 2023-06-14 16:49:[address] [facility] INSURANCE CORRESPONDENCE 2023-06-14 06:01:00 Doctor Unassigned, Story [facility] COMP. METABOLIC PANEL (85277) 2023-06-03 14:15:00 [facility] CBC WITH DIFF 2023-06-03 14:15:00 [facility] CD19 SUBSET ASSAY 2023-06-03 14:15:00 [facility] MINI-MENTAL STATE EXAM 2023-05-27 05:01:00 Doctor Unassigned, Story [facility] XR CHEST 1 VW 2023-03-21 08:00:00 Moose [facility] LACTATE DEHYDROGENASE 2023-03-21 06:10:00 Moose [facility] D-DIMER 2023-03-21 06:10:00 Moose [facility] LACTIC ACID WHOLE BLOOD 2023-03-21 02:52:[address] [facility] URINALYSIS 2023-03-21 01:57:[address] [facility] ELECTROENCEPHALOGRAM 2023-03-21 00:00:[address] [facility] CT HEAD WO CONTRAST 2023-03-20 23:59:[address] [facility] COVID-19 (ID NOW RAPID TESTING) 2023-03-20 22:42:[address] [facility] LAB ONLY COVID INTERPRETATION 2023-03-20 22:42:[address] [facility] BLOOD CULTURE SCREEN 2023-03-20 22:34:[address] [facility] MAGNESIUM 2023-03-20 22:34:[address] [facility] FERRITIN SERUM 2023-03-20 22:34:00 Moose, [facility] C-REACTIVE PROTEIN 2023-03-20 22:34:00 Moose, [facility] COMP. METABOLIC PANEL ([id number]) 2023-03-20 22:34:[address] [facility] VALPROIC ACID, FREE 2023-03-20 22:34[facility]00 [facility]FF 2023-03-20 22:34:[address] [facility] PROCALCITONIN 2023-03-20 22:34:00 Moose [facility] CONSENT/REFUSAL FOR DIAGNOSI S AND TREATMENT 2023-03-20 22:00:37 Doctor Unassigned, Story [facility] EXTERNAL PROVIDER RECORDS 2023-03-03 05:01:00 Doctor Unassigned, Story [facility] US DUPLEX VENOUS ARM RIGHT - BY VASCULAR LAB 2023-02-15 20:33:00 Parminder [facility] PHOSPHORUS 2023-02-15 10:20:00 Javi [facility] MAGNESIUM 2023-02-15 10:20:00 Javi [facility] HEPATIC FUNCTION PANEL ([id number]) (ALB,T.PRO,BILI T,BU/BC,ALT,AST,ALK PHOS) 2023-02-15 10:20:00 Parminder [facility] BASIC METABOLIC PANEL (NA, K , CL, CO2, GLUCOSE, BUN, CREATININE, CA) 2023-02-15 10:20:00 Javi [facility] VALPROIC ACID, FREE 2023-02-15 10:20:00 Parminder [facility] CBC WITH DIFF 2023-02-15 10:20:00 [facility]IGM 2023-02-15 10:20:[address] [facility] POCT GLUCOSE (AUTOMATED) 2023-02-14 21:51:[address] [facility] POCT GLUCOSE (AUTOMATED) 2023-02-14 17:31:[address] [facility] LOWER EXTREMITY ARTERIAL DUPLEX BILATERAL - BY VASCULAR LAB 2023-02-14 17:26:[address] [facility] DUPLEX VENOUS LEGS BILATERAL - BY VASCULAR LAB 2023-02-14 15:59:[address] [facility] CT HEAD WO CONTRAST 2023-02-14 15:30:00 J[address] [facility] CT STROKE ANGIOGRAM HEAD 2023-02-14 15:30:[address] [facility] CT STROKE ANGIOGRAM NECK 2023-02-14 15:30:00 Javi [facility] THYROID STIMULATING HORMONE 2023-02-14 06:49:00 [facility] BASIC METABOLIC PANEL (NA, K , CL, CO2, GLUCOSE, BUN, CREATININE, CA) 2023-02-14 06:49:00 [facility] CBC WITH DIFF 2023-02-14 06:49:00 [facility] MRSA / MSSA SCREEN BY JEREMY DE LEON 2023-02-14 04:26:00 [facility] OCT, OPTIC NERVE - OU - BOTH EYES 2022-12-14 16:27:[address] [facility] AUTOMATED VISUAL FIELD, EXTENDED - OU - BOTH EYES 2022-12-14 16:27:[address] [facility] MEDICATION CORRESPONDENCE 2022-12-08 05:01:00 Doctor Unassigned, Story [facility] EXTERNAL PROVIDER RECORDS 2022-11-02 05:01:00 Doctor Unassigned, Story [facility] AUTHORIZATION FOR RELEASE OF PHI 2022-10-30 05:01:00 Doctor Unassigned, Story [facility] POCT GLUCOSE (AUTOMATED) 2022-10-26 13:13:00 Masel, [facility] POCT GLUCOSE (AUTOMATED) 2022-10-26 01:19:[address] [facility] POCT GLUCOSE (AUTOMATED) 2022-10-25 22:09:[address] [facility] AMMONIA, PLASMA 2022-10-25 17:56:[address] [facility] POCT GLUCOSE (AUTOMATED) 2022-10-25 17:29:[address] [facility] CT HEAD WO CONTRAST 2022-10-25 16:34:[address] [facility] XR CHEST 1 VW 2022-10-25 14:56:00 Desi Roberts [facility] HEPATIC FUNCTION PANEL ([id number]) (ALB,T.PRO,BILI T,BU/BC,ALT,AST,ALK PHOS) 2022-10-25 14:42:00 [facility] MET[facility]OLIC PANEL (NA, K , CL, CO2, GLUCOSE, BUN, CREATININE, CA) 2022-10-25 14:42:[address] [facility] VALPROIC ACID, FREE 2022-10-25 14:42:[address] [facility] ETHANOL 2022-10-25 14:42:[facility] URINE DRUG (IMMUNOASSAY) - COMPREHENSIVE DRUG SCREEN 2022-10-25 14:42:[address] [facility] CBC WITH DIFF 2022-10-25 14:42:00 [facility] 2022-10-25 14:42:[address] [facility] EXTRA TUBE URINE CULTURE 2022-10-25 14:42:[address] [facility] PROCALCITONIN 2022-10-25 14:42:00 Desi Roberts [facility] ELECTROENCEPHALOGRAM 2022-10-25 00:00:[address] [facility] CONSENT FOR MAGGIE E TREATMENT FORM 2022-09-01 19:16:42 Doctor Unassigned, Story [facility] PHYSICIAN ORDERS 2022-05-20 05:01:00 Doctor Unassigned, Story [facility] POCT GLUCOSE (AUTOMATED) 2022-05-08 18:06:[address] [facility] DUPLEX VENOUS LEGS BILATERAL - BY VASCULAR LAB 2022-05-08 13:35:[address] [facility] POCT GLUCOSE (AUTOMATED) 2022-05-08 13:20:00 [facility] POCT GLUCOSE (AUTOMATED) 2022-05-08 01:07:00 Armen [facility] POCT GLUCOSE (AUTOMATED) 2022-05-07 22:54:00 Armen [facility] BASIC METABOLIC PANEL (NA, K , CL, CO2, GLUCOSE, BUN, CREATININE, CA) 2022-05-07 18:52:[address] [facility] CBC WITH DIFF 2022-05-07 18:52[facility]00 [facility] 2022-05-07 13:51:00 Armen [facility] MR BRAIN W WO CONTRAST 2022-05-07 03:11:[address] [facility] POCT GLUCOSE (AUTOMATED) 2022-05-07 01:02:00 [facility] POCT GLUCOSE (AUTOMATED) 2022-05-06 21:51:00 Armen [facility] CBC WITH DIFF 2022-05-06 20:54:[address] [facility] XR CHEST 1 VW 2022-05-06 20:41:[address] [facility] POCT GLUCOSE (AUTOMATED) 2022-05-06 17:02:[address] [facility] POCT GLUCOSE (AUTOMATED) 2022-05-06 13:47:00 [facility] URINALYSIS 2022-05-06 10:51:[address] [facility] URINE CULTURE 2022-05-06 10:51:[address] [facility] BLOOD CULTURE SCREEN 2022-05-06 05:12:[address] [facility] GALV ONLY - INFLUENZA A B RS V PCR 2022-05-06 05:12:[address] [facility] POCT GLUCOSE (AUTOMATED) 2022-05-06 01:42:00 Armen [facility] POCT GLUCOSE (AUTOMATED) 2022-05-05 22:38:00 Armen [facility] HB ECG ROUTINE & RHYTHM STRIP 2022-05-05 21:56:24 Claudia [facility] HEPATIC FUNCTION PANEL ([id number]) (ALB,T.PRO,BILI T,BU/BC,ALT,AST,ALK PHOS) 2022-05-05 19:27:00 Claudia [facility] LIPID PANEL ([id number])(TOTAL CHOLESTEROL, TRIGLYCERIDES, HDL) 2022-05-05 19:27:00 Claudia [facility] VALPROIC ACID, FREE 2022-05-05 19:27:00 Claudia [facility] GLYCOSYLATED HEMOGLOBIN (A1C) 2022-05-05 19:27:00 Claudia [facility] EKG-12 LEAD 2022-05-05 16:11:[address] [facility] URINALYSIS 2022-05-05 15:17:[address] [facility] CT STROKE PERFUSION W CONTRAST 2022-05-05 15:08:[address] [facility] STROKE HEAD WO CONTRAST 2022-05-05 14:45:05 [address] [facility] CT STROKE ANGIOGRAM HEAD 2022-05-05 14:45:05 [address] [facility] CT STROKE ANGIOGRAM NECK 2022-05-05 14:45:05 Nando [facility] TROPONIN I 2022-05-05 14:32:00 Nando [facility] BASIC METABOLIC PANEL (NA, K , CL, CO2, GLUCOSE, BUN, CREATININE, CA) 2022-05-05 14:32:00 Nando [facility] CBC WITHOUT DIFF 2022-05-05 14:32:00 Nando [facility] PROTHROMBIN TIME / INR 2022-05-05 14:32:00 Nando [facility] ACTIVATED PARTIAL THRMPLAS BOUBACAR 2022-05-05 14:32:00 Nando [facility] EXTRA TUBE LAV 2022-05-05 14:32:00 Nando [facility] CONSENT/REFUSAL FOR DIAGNOSI S AND TREATMENT 2022-05-05 14:18:31 Doctor Unassigned, Story [facility] ELECTROENCEPHALOGRAM 2022-05-05 00:00:[address] [facility] MAGNESIUM 2022-04-06 08:15:00 Gentry [facility] BASIC METABOLIC PANEL (NA, K , CL, CO2, GLUCOSE, BUN, CREATININE, CA) 2022-04-06 08:15:00 Gentry [facility] CBC WITH DIFF 2022-04-06 08:15:00 Gentry [facility] MAGNESIUM 2022-04-03 09:15:00 Elti [facility] BASIC METABOLIC PANEL (NA, K , CL, CO2, GLUCOSE, BUN, CREATININE, CA) 2022-04-03 09:15:00 Gentry [facility] CBC WITH DIFF 2022-04-03 09:15:00 Gentry [facility] BLOOD CULTURE SCREEN 2022-04-02 23:26:00 Gentry [facility] XR CHEST 1 VW 2022-04-02 20:36:00 Eljoseem [facility] URINALYSIS 2022-04-02 20:25:00 Elti [facility] BLOOD CULTURE SCREEN 2022-04-02 20:12:00 Gentry [facility] XR CHEST 2 VW 2022-04-01 15:06:[address] [facility] CBC WITH DIFF 2022-04-01 11:05:00 [facility] 2022-04-01 11:05:00 SharmaTristen [facility] ANTICARDIOLIPIN ANTIBODIES 2022-04-01 10:39:[address] [facility] ANTI-B2 GLYCOPROTEIN I AB 2022-04-01 10:39:00 [facility] MR BRAIN WO CONTRAST 2022-03-31 23:47:[address] [facility] COVID-19 (ID NOW RAPID TESTING) 2022-03-31 22:10:[address] [facility] LAB ONLY COVID INTERPRETATION 2022-03-31 22:10:[address] [facility] IMMUNOGLOBULIN G A M PANEL 2022-03-31 18:06:00 EdithTristen [facility] BASIC METABOLIC PANEL (NA, K , CL, CO2, GLUCOSE, BUN, CREATININE, CA) 2022-03-31 18:06:[address] [facility] CBC WITH DIFF 2022-03-31 18:06:[address] [facility] ANTI-NUCLEAR ANTIBODY SCREEN 2022-03-31 18:06:[address] [facility] ANTI-SSA(RO) 2022-03-31 18:06:[address] [facility] ANTI-NUCLEAR ANTIBODY-PATHOLOGIST INTERPRETATION 2022-03-31 18:06:[address] [facility] XR CHEST 1 VW 2022-03-31 16:15:[address] [facility] URINE DRUG (IMMUNOASSAY) - COMPREHENSIVE DRUG SCREEN 2022-03-31 15:52:[address] [facility] URINALYSIS 2022-03-31 15:52:[address] [facility] AMMONIA, PLASMA 2022-03-31 15:41:[address] [facility] C-REACTIVE PROTEIN 2022-03-31 15:41:[address] [facility] FREE T4 2022-03-31 15:41:[address] [facility] VALPROIC ACID, TOTAL 2022-03-31 15:41:[address] [facility] VALPROIC ACID, FREE 2022-03-31 15:41:[address] [facility] CBC WITHOUT DIFF 2022-03-31 15:41:[address] [facility] SEDIMENTATION RATE 2022-03-31 15:41:[address] [facility] PROTHROMBIN TIME / INR 2022-03-31 15:41:[address] [facility] ACTIVATED PARTIAL THRMPLAS BOUBACAR 2022-03-31 15:41:[address] [facility] HB ECG ROUTINE & RHYTHM STRIP 2022-03-31 15:35:[address] [facility] CT STROKE ANGIOGRAM HEAD 2022-03-31 15:32:[address] [facility] CT STROKE ANGIOGRAM NECK 2022-03-31 15:32:[address] [facility] CT STROKE PERFUSION W CONTRAST 2022-03-31 15:32:[address] [facility] PHOSPHORUS 2022-03-31 15:13:[address] [facility] CREATINE KINASE 2022-03-31 15:13:[address] [facility] MAGNESIUM 2022-03-31 15:13:[address] [facility] TROPONIN I 2022-03-31 15:13:[address] [facility] TRIIODOTHYRONINE 2022-03-31 15:13:[address] [facility] THYROID STIMULATING HORMONE 2022-03-31 15:13:[address] [facility] BASIC METABOLIC PANEL (NA, K , CL, CO2, GLUCOSE, BUN, CREATININE, CA) 2022-03-31 15:13:[address] [facility] HEPATITIS B SURFACE ANTIGEN 2022-03-31 15:13:[address] [facility] HEPATITIS B CORE ANTIBODY IGM 2022-03-31 15:13:[address] [facility] CT STROKE HEAD WO CONTRAST 2022-03-31 15:08:[address] [facility] CONSENT/REFUSAL FOR DIAGNOSI S AND TREATMENT 2022-03-31 14:47:03 Doctor Unassigned, Story [facility] ELECTROENCEPHALOGRAM 2022-03-31 00:00:[address] [facility] OPHTHALMOLOGY DIAGNOSTIC TEST 2022-03-23 05:01:00 Doctor Unassigned, Story [facility] OU VISUAL FIELD EXAM EXTENDE D (30-2), BOTH EYES 2022-03-23 00:00:[address] [facility] Encounters Start Date/Time End Date/Time Encounter Type Admission Type Attending [facility] Care Facility Care Department Encounter ID Source 2021-08-19 13:54:35 Outpatient Keny Rutledge [facility] [id number] [facility] 2021-08-19 13:53:31 [facility] [id number] [facility] 2021-08-19 12:20:16 Outpatient Kika Valdez [facility] [id number] [facility] 2021-08-19 11:55:20 Outpatient Kika Valdez [facility] [id number] [facility] 2021-08-19 10:59:22 Outpatient Kika Valdez [facility] [id number] [facility] 2023-11-04 09:00:00 2023-11-04 09:00:00 Outpatient R [facility] [id number] [facility] 2023-08-16 08:45:00 2023-08-16 10:38:18 Outpatient R MARLON BUSH [facility] [id number] [facility] 2023-08-16 08:45:00 2023-08-16 10:38:18 Office Visit Marlon Bush [facility] Vivacta [facility]. 1.840.114 350.1.13.10 4.2.7.2.686 [id number] [facility] 2023-07-26 15:30:00 2023-07-26 15:37:08 Outpatient R JUDE GONZALEZ [facility] [id number] [facility] 2023-07-26 15:30:00 2023-07-26 15:37:[address] Jude Gonzalez [facility] 1.840.114 350.1.13.10 4.2.7.2.686 [id number] [facility] 2023-07-26 00:00:00 2023-07-26 00:00:00 Orders Only Doctor Unassigned, Story [facility] 1.840.114 350.1.13.10 4.2.7.2.686 [id number] [facility] 2023-06-17 00:00:00 2023-06-17 00:00:[address] [facility] 1.2840.114 350.1.13.10 4.2.7.2.686 [id number] [facility] 2023-06-17 00:00:00 2023-06-17 00:00:[address] [facility] 1..114 350.1.13.10 4.2.7.2.686 [id number] [facility] 2023-06-14 09:30:00 2023-06-14 10:48:42 Outpatient R MARLON BUSH [facility] [id number] [facility] 2023-06-14 09:30:00 2023-06-14 10:48:42 Office Visit Marlon Bush [facility]act[facility]. 1..114 350.1.13.10 4.2.7.2.686 [id number] [facility] 2023-06-14 00:00:00 2023-06-14 00:00:00 Orders Only Doctor Unassigned, Story [facility] 1..114 350.1.13.10 4.2.7.2.686 [id number] [facility] 2023-06-03 08:45:00 2023-06-03 13:54:05 [facility] [id number] [facility] 2023-06-03 08:45:00 2023-06-03 13:54:05 Nurse Visit 4, Arina-Vl Infusion Chair [facility] ..114 350.1.13.10 4.2.7.2.686 [id number] [facility] 2023-06-02 00:00:00 2023-06-02 00:00:00 Telephone Elin Vieyra [facility] 1..114 350.1.13.10 4.2.7.2.686 [id number] [facility] 2023-05-27 16:00:00 2023-05-27 16:15:00 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 1.2840.114 350.1.13.10 4.2.7.2.686 [id number] [facility] 2023-05-27 00:00:00 2023-05-27 00:00:00 Orders Only Doctor Unassigned, Story [facility] 1.2840.114 350.1.13.10 4.2.7.2.686 [id number] [facility] 2023-03-22 00:00:00 2023-03-22 00:00:00 Transition of Care Jewell Mckeon [facility] 1.2840.114 350.1.13.10 4.2.7.2.686 [id number] [facility] 2023-03-20 17:18:00 2023-03-21 17:40:00 Outpatient X [facility]ERALD [facility] [id number] [facility] 2023-03-20 17:18:00 2023-03-21 17:40:00 Hospital Joan Christie William B Amin, Saad M. Sonstein, Lindsay K JENNIE [facility] 1.2840.114 350.1.13.10 4.2.7.2.686 [id number] [facility] 2023-03-03 00:00:00 2023-03-03 00:00:00 Orders Only Doctor Unassigned, Story [facility] 1.2.840.114 350.1.13.10 4.2.7.2.686 [id number] [facility] 2023-02-17 00:00:00 2023-02-17 00:00:00 Transition of Care Leslie Palm 1.2.840.114 350.1.13.10 4.2.7.2.686 [id number] [facility] 2023-02-17 00:00:00 2023-02-17 00:00:[address] [facility] 1.2.840.114 350.1.13.10 4.2.7.2.686 [id number] [id number] [facility] 2023-02-13 22:56:00 2023-02-16 11:59:00 Inpatient U [facility] [id number] [facility] 2023-02-13 22:56:00 2023-02-16 11:59:00 Hospital Encounter Sigifredo [place], [facility] 1.2.840.114 350.1.13.10 4.2.7.2.686 [id number] [facility] 2023-01-18 15:15:00 2023-01-18 15:30:00 Diesel Lube Tech Visit Pcp-Lab Monserrat [facility] 1.2.840.114 350.1.13.10 4.2.7.2.686 [id number] [facility] 2023-01-18 13:30:00 2023-01-18 15:02:55 Outpatient R MONSERRAT [facility] [id number] [facility] 2023-01-18 13:30:00 2023-01-18 15:02:55 Office Visit Monserrat [facility]AVILLION 1.2.840.114 350.1.13.10 4.2.7.2.686 [id number] [facility] 2022-12-14 10:00:00 2022-12-14 11:36:44 Outpatient R MARLON BUSH [facility] [id number] [facility] 2022-12-14 10:00:00 2022-12-14 11:36:44 Office Visit Marlon Bush [facility]. 1..114 350.1.13.10 4.2.7.2.686 [id number] [facility] 2022-12-08 00:00:00 2022-12-08 00:00:00 Orders Only Doctor Unassigned, Story [facility] 1.0.114 350.1.13.10 4.2.7.2.686 [id number] [facility] 2022-12-01 09:15:00 2022-12-01 15:27:23 Outpatient R ELIN VIEYRA [facility] [id number] [facility] 2022-12-01 09:15:00 2022-12-01 15:27:23 Nurse Visit 3, Arina- Infusion Chair [facility] 1..114 350.1.13.10 4.2.7.2.686 [id number] [facility] 2022-11-02 00:00:00 2022-11-02 00:00:00 Orders Only Doctor Unassigned, Story [facility] 1.20.114 350.1.13.10 4.2.7.2.686 [id number] [id number] [facility] 2022-10-30 00:00:00 2022-10-30 00:00:00 Orders Only Doctor Unassigned, Story [facility] 1.2840.114 350.1.13.10 4.2.7.2.686 [id number] [facility] 2022-10-27 00:00:00 2022-10-27 00:00:00 Letter (Out) Clinic, [facility] Neurology Resident [facility] 1.2840.114 350.1.13.10 4.2.7.2.686 [id number] [facility] 2022-10-25 08:33:00 2022-10-26 15:15:00 Outpatient U YANCY MERINO J[facility]GE [facility] [id number] [facility] 2022-10-25 08:33:00 2022-10-26 15:15:00 Hospital Encounter David Tavera triston[facility]iguelito [facility] 1.0.114 350.1.13.10 4.2.7.2.686 [id number] [facility] 2022-10-26 00:00:00 2022-10-26 00:00:00 Patient Secure Msg Doctor Unassigned, Story [facility] 1.840.114 350.1.13.10 4.2.7.2.686 [id number] [facility] 2022-09-01 00:00:00 2022-09-01 00:00:00 Orders Only Doctor Unassigned, Story [facility] 1.840.114 350.1.13.10 4.2.7.2.686 [id number] [facility] 2022-08-17 00:00:00 2022-08-17 00:00:00 Marie Sepulveda [facility] 1.2840.114 350.1.13.10 4.2.7.2.686 [id number] [facility] 2022-08-16 00:00:00 2022-08-16 00:00:[address] [facility]AV[facility] 1.2.840.114 350.1.13.10 4.2.7.2.686 [id number] [facility] 2022-08-12 11:00:00 2022-08-12 11:00:00 Outpatient ASHLY DANIELS [facility] [id number] [facility] 2022-08-12 00:00:00 2022-08-12 00:00:00 Telephone Farhanaeli [facility] 1.2.840.114 350.1.13.10 4.2.7.2.686 [id number] [facility] 2022-08-06 00:00:00 2022-08-06 00:00:00 Telephone Farhanaeli [facility] PRIMARY CARE PAVILLION 1.2.840.114 350.1.13.10 4.2.7.2.686 [id number] [id number] [facility] 2022-07-22 00:00:00 2022-07-22 00:00:[address] [facility]AV[facility] 1.2.840.114 350.1.13.10 4.2.7.2.686 [id number] [facility] 2022-07-06 10:00:00 2022-07-06 10:00:00 Outpatient MARLON NIELSON [facility] [id number] [facility] 2022-07-01 08:30:00 2022-07-01 08:30:00 Outpatient ELIN HASTINGS [facility] [id number] [facility] 2022-06-10 10:00:00 2022-06-10 12:36:43 Outpatient ASHLY DANIELS [facility] [id number] [facility] 2022-06-10 10:00:00 2022-06-10 12:36:43 Office Visit Clinic, Neurology Continuity Ashly Villanueva [facility]AVILL[facility] 1.84.114 350.1.13.10 4.2.7.2.686 [id number] [facility] 2022-06-10 10:00:00 2022-06-10 10:00:00 Outpatient Vamsi [facility] [id number] [facility] 2022-06-03 10:00:00 2022-06-03 15:30:00 Nurse Visit 3, Arina-Vl Infusion Chair [facility] [place] [facility] 1.84.114 350.1.13.10 4.2.7.2.686 [id number] [facility] 2022-06-03 10:00:00 2022-06-03 10:00:00 [facility] [place] [id number] [facility] 2022-05-20 10:00:00 2022-05-20 15:30:00 Nurse Visit 4, Arina-Vl Infusion Chair Azalia [facility] 1..114 350.1.13.10 4.2.7.2.686 [id number] [facility] 2022-05-20 10:00:00 2022-05-20 10:00:00 Outpatient R [facility] [place] [id number] [facility] 2022-05-20 00:00:00 2022-05-20 00:00:00 Telephone [facility]AVILLION 1.84.114 350.1.13.10 4.2.7.2.686 [id number] [facility] 2022-05-20 00:00:00 2022-05-20 00:00:00 Orders Only Doctor Unassigned, Story [facility] 1.20.114 350.1.13.10 4.2.7.2.686 [id number] [facility] 2022-05-05 09:19:00 2022-05-08 15:58:00 Outpatient X ARMEN COX [facility] [id number] [facility] 2022-05-05 09:19:00 2022-05-08 15:58:00 Emergency Ashly Collier Anand Vilaschandr a [facility] 1.840.114 350.1.13.10 4.2.7.2.686 [id number] [facility] 2022-05-05 00:00:00 2022-05-05 00:00:00 Telephone Azalia [facility] MEDICAL OFFICE BUILDING 1.0.114 350.1.13.10 4.2.7.2.686 [id number] [facility] 2022-04-19 00:00:00 2022-04-19 00:00:00 Patient Secure Msg Sharma-Keith Navarrete [facility]ARE PAVILLION 1.20.114 350.1.13.10 4.2.7.2.686 [id number] [facility] 2022-04-12 00:00:00 2022-04-12 00:00:00 Transition of Care Leslie Palm 1.2840.114 350.1.13.10 4.2.7.2.686 [id number] [facility] 2022-03-31 09:52:00 2022-04-09 23:12:00 Inpatient X AZALIA ELIN [facility] [id number] [facility] 2022-03-31 09:52:00 2022-04-09 23:12:00 Hospital Encounter [facility]urah Patricia, [facility] 1.2.840.114 350.1.13.10 4.2.7.2.686 [id number] [facility] 2022-03-23 10:15:00 2022-03-23 13:08:32 Outpatient R MARLON BUSH [facility] [id number] [facility] 2022-03-23 10:15:00 2022-03-23 13:08:32 Office Visit Marlon Bush [facility] 1.840.114 350.1.13.10 4.2.7.2.686 [id number] [facility] 2022-03-23 00:00:00 2022-03-23 00:00:00 Orders Only Doctor Unassigned, Story [facility] 1.0.114 350.1.13.10 4.2.7.2.686 [id number] [id number] [facility] 2022-03-23 00:00:00 2022-03-23 00:00:00 Telephone Ashly Villanueva [facility] 1.114 350.1.13.10 4.2.7.2.686 [id number] [facility] 2022-03-11 10:00:00 2022-03-11 11:00:00 Office Visit Clinic, Neurology Continuity Ashly Villanueva [facility] 1.114 350.1.13.10 4.2.7.2.686 [id number] [facility] 2022-03-11 10:00:00 2022-03-11 10:00:00 Outpatient ASHLY DANIELS [facility] [id number] [facility] 2022-03-11 10:00:00 2022-03-11 10:00:00 Outpatient R ASHLY VILLANUEVA [facility] [id number] [facility] 2022-03-11 10:00:00 2022-03-11 10:00:00 Outpatient R ASHLY VILLANUEVA [facility] [id number] [facility] 2022-03-10 13:15:00 2022-03-10 13:30:00 Office Visit Adelso Torres [facility] 1..114 350.1.13.10 4.2.7.2.686 [id number] [facility] 2022-03-10 13:15:00 2022-03-10 13:15:00 [facility] [id number] 2022-03-10 13:15:00 2022-03-10 13:15:00 [facility] [id number] [facility] 2022-03-10 13:15:00 2022-03-10 13:15:00 [facility] [id number] [facility] 2022-03-05 00:00:00 2022-03-05 00:00:00 Outpatient [facility] [id number] [facility] 2022-03-05 00:00:00 2022-03-05 00:00:00 Orders Only Doctor Unassigned, Story [facility] 1..114 350.1.13.10 4.2.7.2.686 [id number] [id number] [facility] 2022-03-05 00:00:00 2022-03-05 00:00:00 Patient Secure Msg Doctor Unassigned, Story [facility] 1..114 350.1.13.10 4.2.7.2.686 [id number] [facility] 2022-03-02 00:00:00 2022-03-02 00:00:00 Telephone Keith Upton [facility] 1.114 350.1.13.10 4.2.7.2.686 [id number] [facility] 2022-02-26 13:10:00 2022-02-26 13:26:22 [facility] [id number] [facility] 2022-02-26 13:10:00 2022-02-26 13:26:22 Office Visit [facility]..840.114 350.1.13.10 4.2.7.2.686 [id number] [facility] 2022-02-26 13:10:00 2022-02-26 13:26:22 Outpatient R BRIAN [facility] [id number] [facility] 2022-02-26 13:10:00 2022-02-26 13:26:22 Outpatient R BRIAN [facility] [id number] [facility] 2022-02-22 00:00:00 2022-02-22 00:00:00 Transition of Care Alena Sarmiento [facility] 1..840.114 350.1.13.10 4.2.7.2.686 [id number] [facility] 2022-02-02 10:41:00 2022-02-19 20:35:00 Inpatient X DAVID TAVERA [facility] [id number] [facility] 2022-02-02 10:41:00 2022-02-19 20:35:00 Hospital Encounter Clement Bell, Aggie Young, Adelso Hung Todd S [facility] 1..840.114 350.1.13.10 4.2.7.2.686 [id number] [facility] 2022-02-12 09:00:00 2022-02-12 11:46:00 Surgery Adelso Torres [facility] 1.2.840.114 350.1.13.10 4.2.7.2.686 [id number] [facility] 2022-02-02 00:00:00 2022-02-02 00:00:00 Travel 1.2.840.1 05201.1.1 3.104.2.7 .3.395930 .8 1.2.840.114 350.1.13.10 4.2.7.3.698 [id number] [facility] 2020-08-08 00:00:00 2020-08-08 00:00:00 (TEL) STLMLC [facility] [id number] [facility] 2020-08-07 00:00:00 2020-08-07 00:00:00 OFFICE VISIT EST PT LEVEL 3 STLMLC STLMLC [id number] [facility] 2020-05-08 00:00:00 2020-05-08 00:00:00 OFFICE VISIT ESTAB PT LEVEL 2 STLMLC STLMLC [id number] [facility] 2020-04-17 00:00:00 2020-04-17 00:00:00 OFFICE VISIT EST PT LEVEL 3 STLMLC STLMLC [id number] [facility] 2020-04-11 18:06:00 2020-04-11 21:28:00 Emergency Myrna Mathews [facility] 1.2.840.114 350.1.13.10 4.2.7.2.686 [id number] [facility] 2020-04-11 17:49:00 2020-04-11 17:49:00 Emergency X MYRNA MATHEWS [facility] ERT [id number] [facility] 2020-02-27 17:45:00 2020-02-27 17:45:00 [facility] [id number] [facility] 2020-02-05 16:20:00 2020-02-05 16:20:00 [address] [facility] [id number] [facility] 2020-01-30 13:41:00 2020-01-30 13:41:00 [facility] [id number] [facility] 2019-09-21 11:40:00 2019-09-21 11:40:00 [facility] [id number] [facility] 2019-08-03 11:40:00 2019-08-03 11:40:00 [facility] [id number] [facility] 2019-05-23 10:59:00 2019-05-23 10:59:00 [facility] [id number] [facility] 2019-01-22 16:20:00 2019-01-22 16:20:00 [facility] [id number] [facility] 2018-07-27 11:15:00 2018-07-27 11:15:00 [facility] [id number] [facility] 2018-07-05 15:30:00 2018-07-05 15:30:00 [facility] [id number] [facility] 2017-12-21 16:00:00 2017-12-21 16:00:00 [facility] [id number] [facility] 2017-10-27 16:00:00 2017-10-27 16:00:00 [facility] [id number] [facility] 2017-10-18 16:32:00 2017-10-18 16:32:00 [address] [facility] [id number] [facility] 2017-10-11 15:30:00 2017-10-11 15:30:00 Outpatient [facility] [id number] [facility] 2017-10-11 08:34:00 2017-10-11 08:34:00 Outpatient [facility] [id number] [facility] Results Test Description Test Time Test Comments Results Result Co mments Source [facility]. METABOLIC PANEL (43960)2023-06-03 15:46:58* Test Item Value Reference Range Interpretation Comme nts NA (test code = 4712949452) 140 mmol/L 135-145 K (test code = 5171075317) 4.4 mmol/L 3.5-5.0 Slight hemolysis CL (test code = 4861963742) 103 mmol/L 98-108 CO2 TOTAL (test code = 8333245416) 29 mmol/L 23-31 AGAP (test code = 0157950191) 8 2-16 BUN (test code = 6120563279) 15 mg/dL 7-23 Slight hemolysis GLUCOSE (test code = 9201255731) 119 mg/dL 70-110 H CREATININE (test code = 4708828458) 0.71 mg/dL 0.60-1.25 TOTAL BILI (test code = 0410385689) 0.7 mg/dL 0.1-1.1 CALCIUM (test code = 0412466857) 9.2 mg/dL 8.6-10.6 T PROTEIN (test code = 0612065611) 6.9 g/dL 6.3-8.2 ALBUMIN (test code = 6790563296) 4.1 g/dL 3.5-5.0 ALK PHOS (test code = 8413230754) 68 U/L 34-122 Slight hemolysis ALTv (test code = 1742-6) 25 U/L 5-50 AST(SGOT) (test code = 7976799937) 34 U/L 13-40 Slight hemolysis eGFR (test code = 47805-5) 111.8 mL/min/1.73m2 CKD-EPI eGFR (2020). Assuming creatinine has been stable day-to-day for at least three months, the eGFR indicates Category G1 (>= 90 mL/min/1.73 m2) Lab Interpretation (test code = 00195-7) [facility]normal [facility]OL[facility] (31938)2023-06-03 15:46:58* Test Item Value Reference Range Interpretation Comme nts NA (test code = 9699742788) 140 mmol/L 135-145 K (test code = 5047663349) 4.4 mmol/L 3.5-5.0 Slight hemolysis CL (test code = 6373186096) 103 mmol/L 98-108 CO2 TOTAL (test code = 7466913640) 29 mmol/L 23-31 AGAP (test code = 7242884686) 8 2-16 BUN (test code = 4027157109) 15 mg/dL 7-23 Slight hemolysis GLUCOSE (test code = 7458508289) 119 mg/dL 70-110 H CREATININE (test code = 9268917238) 0.71 mg/dL 0.60-1.25 TOTAL BILI (test code = 8140796458) 0.7 mg/dL 0.1-1.1 CALCIUM (test code = 0927726035) 9.2 mg/dL 8.6-10.6 T PROTEIN (test code = 2823138855) 6.9 g/dL 6.3-8.2 ALBUMIN (test code = 5457814948) 4.1 g/dL 3.5-5.0 ALK PHOS (test code = 5630284441) 68 U/L 34-122 Slight hemolysis ALTv (test code = 1742-6) 25 U/L 5-50 AST(SGOT) (test code = 6495230303) 34 U/L 13-40 Slight hemolysis eGFR (test code = 37484-7) 111.8 mL/min/1.73m2 CKD-EPI eGFR (2020). Assuming creatinine has been stable day-to-day for at least three months, the eGFR indicates Category G1 (>= 90 mL/min/1.73 m2) Lab Interpretation (test code = 98282-2) Abnormal [facility] WITH [id number] 15:33:35* Test Item Value Reference Range Interpretation Comme nts WBC (test code = 6690-2) 5.77 See_Comment [Automated [employer] ge] The system which generated this result transmitted reference range: 4.20 - 10.70 10*3/?L. The reference range was not used to interpret this result as normal/abnormal. RBC (test code = 789-8) 4.40 See_Comment [Automated [employer]] The system which generated this result transmitted [...] 32.6 g/dL 31.2-35.0 RDW-SD (test code = 25803-5) 47.2 fL 38.5-51.6 RDW-CV (test code = 788-0) 14.7 % 12.1-15.4 PLT (test code = 777-3) 234 See_Comment [Automated [employer]] The system which generated this result transmitted reference range: 150 - 328 10*3/?L. The reference range was not used to interpret this result as normal/abnormal. MPV (test code = 28132-3) 10.7 fL 9.8-13.0 NRBC/100 WBC (test code = 3971660018) 0.0 See_Comment [Automated [employer] ssage] The system which generated this result transmitted reference range: 0.0 - 10.0 /100 WBCs. The reference range was not used to interpret this result as normal/abnormal. NRBC x10^3 (test code = 9307598836) See_Comment [Automated [employer] ssage] The system which generated this result transmitted reference range: 10*3/?L. The reference range was not used to interpret this result as normal/abnormal. GRAN MAT (NEUT) % (test code = 770-8) 61.9 % IMM GRAN % (test code = 1977642415) 0.50 % LYMPH % (test code = 736-9) 23.2 % MONO % (test code = 5905-5) 12.0 % EOS % (test code = 713-8) 1.7 % BASO % (test code = 706-2) 0.7 % GRAN MAT x10^3(ANC) (test code = 8293027454) 3.57 10*3/uL 1.99-6.95 IMM GRAN x10^3 (test code = 8826245964) 0.03 10*3/uL 0.00-0.06 LYMPH x10^3 (test code = 731-0) 1.34 10*3/uL 1.09-3.23 MONO x10^3 (test code = 742-7) 0.69 10*3/uL 0.36-1.02 EOS x10^3 (test code = 711-2) 0.10 10*3/uL 0.06-0.53 BASO x10^3 (test code = 704-7) 0.04 10*3/uL 0.01-0.09 [facility] WITH [id number] 15:33:35* Test Item Value Reference Range Interpretation Comme nts WBC (test code = 6690-2) 5.77 See_Comment [Automated [employer] ge] The system which generated this result transmitted reference range: 4.20 - 10.70 10*3/?L. The reference range was not used to interpret this result as normal/abnormal. RBC (test code = 789-8) 4.40 See_Comment [Automated [employer] ge] The system which generated this result [...] 32.6 g/dL 31.2-35.0 RDW-SD (test code = 07481-1) 47.2 fL 38.5-51.6 RDW-CV (test code = 788-0) 14.7 % 12.1-15.4 PLT (test code = 777-3) 234 See_Comment [Automated messa ge] The system which generated this result transmitted reference range: 150 - 328 10*3/?L. The reference range was not used to interpret this result as normal/abnormal. MPV (test code = 02411-2) 10.7 fL 9.8-13.0 NRBC/100 WBC (test code = 6089530008) 0.0 See_Comment [Automated me ssage] The system which generated this result transmitted reference range: 0.0 - 10.0 /100 WBCs. The reference range was not used to interpret this result as normal/abnormal. NRBC x10^3 (test code = 4589961348) See_Comment [Automated me ssage] The system which generated this result transmitted reference range: 10*3/?L. The reference range was not used to interpret this result as normal/abnormal. GRAN MAT (NEUT) % (test code = 770-8) 61.9 % IMM GRAN % (test code = 1405296830) 0.50 % LYMPH % (test code = 736-9) 23.2 % MONO % (test code = 5905-5) 12.0 % EOS % (test code = 713-8) 1.7 % BASO % (test code = 706-2) 0.7 % GRAN MAT x10^3(ANC) (test code = 6808017077) 3.57 10*3/uL 1.99-6.95 IMM GRAN x10^3 (test code = 6176605163) 0.03 10*3/uL 0.00-0.06 LYMPH x10^3 (test code = 731-0) 1.34 10*3/uL 1.09-3.23 MONO x10^3 (test code = 742-7) 0.69 10*3/uL 0.36-1.02 EOS x10^3 (test code = 711-2) 0.10 10*3/uL 0.06-0.53 BASO x10^3 (test code = 704-7) 0.04 10*3/uL 0.01-0.09 [facility] [id number] 20:24:36* Test Item Value Reference Range Interpretation Comme nts CRP (test code = 9922452971) 3.2 mg/dL <=0.8 H Lab Interpretation (test cod e = 61670-9) [facility]normal [facility] [id number] 06:59:28* Test Item Value Reference Range Interpretation Comme nts FERRITIN (test code = 3836007387) 153.0 ng/mL 18.0-464.0 [facility] (test code = [facility]) Biotin has been reported to cause a negative bias, interpret results relative to patient's use of biotin. Lab Interpretation (test code = 40920-1) Normal [facility]IN2023-08-28 06:52:56* Test Item Value Reference Range Interpretation Comme nts Procalcitonin (test code = 0763079995) 0.03 ng/mL <=0.07 [place] (test code = [...] lung abscess/empyema. For further information please refer to:[email or web address] Lab Interpretation (test code = 81390-6) Normal [facility] HospitalL[facility] Whole [id number] 03:05:13* Test Item Value Reference Range Interpretation Comme nts LACTIC ACID (test code = 3826014042) 1.18 mmol/L 0.50-2.20 QUES Lab Interpretation (test cod e = 10291-3) Normal [facility], [id number] 01:18:26* Test Item Value Reference Range Interpretation Comme nts Valproic Acid, Free (test code = 8084876862) 13.4 ug/mL 4.0-15.0 [place] (test code = [place]) Toxic Range: ? Greater than 15 ug/mL Test developed and characteristics determined by [facility] Laboratory Services. Lab Interpretation (test code = 73636-2) Normal [facility]COMP[facility] METABOLIC PANEL (14327)2023-03-20 23:46:14* Test Item Value Reference Range Interpretation Comme nts NA (test code = 1109533614) 138 mmol/L 135-145 K (test code = 0981512712) 3.9 mmol/L 3.5-5.0 CL (test code = 6214153020) 100 mmol/L 98-108 CO2 TOTAL (test code = 2562172668) 27 mmol/L 23-31 AGAP (test code = 2229322428) 11 2-16 BUN (test code = 3816824972) 13 mg/dL 7-23 GLUCOSE (test code = 2614252179) 82 mg/dL 70-110 CREATININE (test code = 4708353263) 0.90 mg/dL 0.60-1.25 TOTAL BILI (test code = 8423078541) 0.5 mg/dL 0.1-1.1 CALCIUM (test code = 7934505840) 8.9 mg/dL 8.6-10.6 T PROTEIN (test code = 4918328809) 6.6 g/dL 6.3-8.2 ALBUMIN (test code = 8342855805) 4.1 g/dL 3.5-5.0 ALK PHOS (test code = 6484422728) 67 U/L 34-122 ALTv (test code = 1742-6) 42 U/L 5-50 AST(SGOT) (test code = 5457540220) 40 U/L 13-40 eGFR (test code = 6339273689) 89.3 mL/min/1.73m2 [place] (test code = [place]) [...] or urine or abnormalities in imaging tests). [facility]2023-08-27 23:46:14* Test Item Value Reference Range Interpretation Comme nts MAGNESIUM (test code = 3191782108) 1.8 mg/dL 1.7-2.4 Lab Interpretation (test cod e = 59249-8) Normal [facility] WITH [id number] 23:31:14* Test Item Value Reference Range Interpretation Comme nts WBC (test code = 6690-2) 5.93 See_Comment [Automated [employer]] The system which generated this result transmitted reference range: 4.20 - 10.70 10*3/?L. The reference range was not used to interpret this result as normal/abnormal. RBC (test code = 789-8) 4.44 See_Comment [Automated [employer]] The system which generated this result transmitted [...] 32.8 g/dL 31.2-35.0 RDW-SD (test code = 72887-9) 47.8 fL 38.5-51.6 RDW-CV (test code = 788-0) 14.9 % 12.1-15.4 PLT (test code = 777-3) 209 See_Comment [Automated messa ge] The system which generated this result transmitted reference range: 150 - 328 10*3/?L. The reference range was not used to interpret this result as normal/abnormal. MPV (test code = 23627-2) 9.9 fL 9.8-13.0 NRBC/100 WBC (test code = 3242501023) 0.0 See_Comment [Automated me ssage] The system which generated this result transmitted reference range: 0.0 - 10.0 /100 WBCs. The reference range was not used to interpret this result as normal/abnormal. NRBC x10^3 (test code = 8916096521) See_Comment [Automated messa ge] The system which generated this result transmitted reference range: 10*3/?L. The reference range was not used to interpret this result as normal/abnormal. GRAN MAT (NEUT) % (test code = 770-8) 60.8 % IMM GRAN % (test code = 6996720581) 0.70 % LYMPH % (test code = 736-9) 18.4 % MONO % (test code = 5905-5) 18.7 % EOS % (test code = 713-8) 0.7 % BASO % (test code = 706-2) 0.7 % GRAN MAT x10^3(ANC) (test code = 8012622623) 3.61 10*3/uL 1.99-6.95 IMM GRAN x10^3 (test code = 1478095888) 0.04 10*3/uL 0.00-0.06 LYMPH x10^3 (test code = 731-0) 1.09 10*3/uL 1.09-3.23 MONO x10^3 (test code = 742-7) 1.11 10*3/uL 0.36-1.02 H EOS x10^3 (test code = 711-2) 0.04 10*3/uL 0.06-0.53 L BASO x10^3 (test code = 704-7) 0.04 10*3/uL 0.01-0.09 Lab Interpretation (test code = 79472-6) Abnormal [facility] GLUCOSE (AUTOMATED)2023-02-14 22:18:58* Test Item Value Reference Range Interpretation Comme nts POCT GLU (test code = 1941772132) 174 mg/dL 70-110 H Lab Interpretation (test cod e = 25513-2) Abnormal [facility] GLUCOSE (AUTOMATED)2023-02-14 17:43:43* Test Item Value Reference Range Interpretation Comme nts POCT GLU (test code = 5971973598) 84 mg/dL 70-110 Lab Interpretation (test cod e = 46824-3) Normal [facility] GLUCOSE (AUTOMATED)2022-10-26 13:16:44* Test Item Value Reference Range Interpretation Comme nts POCT GLU (test code = 3461825041) 145 mg/dL 70-110 H Lab Interpretation (test cod e = 18590-9) Abnormal [facility] GLUCOSE (AUTOMATED)2022-10-26 01:20:18* Test Item Value Reference Range Interpretation Comme nts POCT GLU (test code = 8535899628) 240 mg/dL 70-110 H Lab Interpretation (test cod e = 76671-1) Abnormal [facility] GLUCOSE (AUTOMATED)2022-10-25 22:11:38* Test Item Value Reference Range Interpretation Comme nts POCT GLU (test code = 0921029518) 254 mg/dL 70-110 H Lab Interpretation (test cod e = 76280-2) Abnormal [facility], TNBLTX5242-17-06 18:19:20* Test Item Value Reference Range Interpretation Comme nts AMMONIA (test code = 4475210458) 9-33 L Lab Interpretation (test cod e = 96851-0) Abnormal [facility] GLUCOSE (AUTOMATED)2022-10-25 17:32:20* Test Item Value Reference Range Interpretation Comme nts POCT GLU (test code = 3512867673) 212 mg/dL 70-110 H Lab Interpretation (test cod e = 44525-4) Abnormal [facility] GLUCOSE (AUTOMATED)2022-05-08 18:07:15* Test Item Value Reference Range Interpretation Comme nts POCT GLU (test code = 4339383790) 210 mg/dL 70-110 H Lab Interpretation (test cod e = 46150-4) Abnormal [facility] GLUCOSE (AUTOMATED)2022-05-08 13:21:55* Test Item Value Reference Range Interpretation Comme nts POCT GLU (test code = 1783147908) 83 mg/dL 70-110 Lab Interpretation (test cod e = 86674-8) Normal [facility] GLUCOSE (AUTOMATED)2022-05-08 01:16:03* Test Item Value Reference Range Interpretation Comme nts POCT GLU (test code = 3695537266) 133 mg/dL 70-110 H Lab Interpretation (test cod e = 40544-7) Abnormal [facility] GLUCOSE (AUTOMATED)2022-05-07 22:56:43* Test Item Value Reference Range Interpretation Comme nts POCT GLU (test code = 8714161088) 194 mg/dL 70-110 H Lab Interpretation (test cod e = 78052-8) Abnormal [facility] GLUCOSE (AUTOMATED)2022-05-07 13:54:43* Test Item Value Reference Range Interpretation Comme nts POCT GLU (test code = 6168998472) 93 mg/dL 70-110 Lab Interpretation (test cod e = 88255-3) Normal [facility] GLUCOSE (AUTOMATED)2022-05-07 01:10:55* Test Item Value Reference Range Interpretation Comme nts POCT GLU (test code = 1888246181) 148 mg/dL 70-110 H Lab Interpretation (test cod e = 49692-0) [facility] (52969[facility] (ALB,T.PRO,BILI T,BU/BC,ALT,AST,ALK PHOS)2022-05-07 01:03:23* Test Item Value Reference Range Interpretation Comme nts TOTAL BILI (test code = 0944370102) 0.5 mg/dL 0.1-1.1 BILI UNCON (test code = 6781347691) 0.2 mg/dL 0.1-1.1 BILI CONJ (test code = 2335895205) 0.0 mg/dL 0-0.3 T PROTEIN (test code = 7776689709) 6.3 g/dL 6.3-8.2 ALBUMIN (test code = 3848292315) 3.4 g/dL 3.5-5 L ALK PHOS (test code = 3259250220) 54 U/L 34-122 ALTv (test code = 1742-6) 13 U/L 5-50 AST(SGOT) (test code = 4530092592) 18 U/L 13-40 Lab Interpretation (test cod e = 46726-9) [facility]normal [facility] HospitalVALPRO[facility] ACID, [id number] 00:55:25* Test Item Value Reference Range Interpretation Comme nts Valproic Acid, Free (test code = 3205945451) 7.2 ug/mL 4-15 STANFORD (test code = STANFORD) Toxic Range: ? Greater than 15 ug/mL Test developed and characteristics determined by [facility] Laboratory Services. Lab Interpretation (test code = 80579-6) Normal [facility] GLUCOSE (AUTOMATED)2022-05-06 21:54:40* Test Item Value Reference Range Interpretation Comme nts POCT GLU (test code = 2975022509) 149 mg/dL 70-110 H Lab Interpretation (test cod e = 03612-2) Abnormal [facility] GLUCOSE (AUTOMATED)2022-05-06 17:06:34* Test Item Value Reference Range Interpretation Comme nts POCT GLU (test code = 7858175904) 166 mg/dL 70-110 H Lab Interpretation (test cod e = 83465-5) Abnormal [facility] GLUCOSE (AUTOMATED)2022-05-06 13:49:08* Test Item Value Reference Range Interpretation Comme nts POCT GLU (test code = 2150441633) 80 mg/dL 70-110 Lab Interpretation (test cod e = 02989-9) Normal [facility] GLUCOSE (AUTOMATED)2022-05-06 01:44:43* Test Item Value Reference Range Interpretation Comme nts POCT GLU (test code = 8071302148) 158 mg/dL 70-110 H Lab Interpretation (test cod e = 69230-1) Abnormal [facility] GLUCOSE (AUTOMATED)2022-05-05 22:39:13* Test Item Value Reference Range Interpretation Comme nts POCT GLU (test code = 9735829726) 79 mg/dL 70-110 Lab Interpretation (test cod e = 74650-2) Normal [facility] HospitalGLYCOSYLATED HEMOGLOBIN (A1C)2022-05-05 21:54:43* Test Item Value Reference Range Interpretation Comme nts HGB A1C (test code = 4548-4) 6.7 % 4-5.7 H STANFORD (test code = STANFORD) Reference RangesNormal: <5.7%Prediabetes: 5.7 - 6.4%Diabetes: > 6.5% Lab Interpretation (test code = 66158-0) Abnormal [facility] HospitalFASTING LIPID PANEL (89367)(TOTAL CHOLESTEROL, TRIGLYCERIDES, HDL)2022-05-05 19:53:18* Test Item Value Reference Range Interpretation Comme nts CHOL (test code = 1500209532) 112 mg/dL 120-200 L HDL (test code = 1066402139) 47 mg/dL See_Comment [Automated [employer]] The system which generated this result transmitted reference range: >=40. The reference range was not used to interpret this result as normal/abnormal. HDLC RATIO (test code = 6081108359) See_Comment [Automated [employer]] The system which generated this result transmitted reference range: <=5.0. The reference range was not used to interpret this result as normal/abnormal. TRIG (test code = 4106901348) 123 mg/dL 30-170 LDL CHOL (test code = 05458-5) 40 mg/dL See_Comment [Automated [employer] ge] The system which generated this result transmitted reference range: <=160. The reference range was not used to interpret this result as normal/abnormal. VLDL (test code = 9375580896) 25 mg/dL 5-60 Lab Interpretation (test code = 31693-2) [facility]normal [facility] HospitalTroponin I - Code Vspkrx4516-43-73 15:00:04* Test Item Value Reference Range Interpretation Comments TROPONIN I (test code = 2912288237) 0.002 ng/mL See_Comment [Automated message] The system [...] of biotin. Lab Interpretation (test code = 40410-0) Normal [facility] Metabolic Panel (NA, K, CL, CO2, Glucose, BUN, Creatinine, CA) - Code Reiboy6585-78-65 14:48:26* Test Item Value Reference Range Interpretation Comme nts NA (test code = 4294436697) 141 mmol/L 135-145 K (test code = 8529305315) 3.6 mmol/L 3.5-5 Slight hemolysis CL (test code = 4053473828) 98 mmol/L 98-108 CO2 TOTAL (test code = 0016035214) 32 mmol/L 23-31 H AGAP (test code = 4837146204) 2-16 BUN (test code = 0447270819) 10 mg/dL 7-23 Slight hemolysis GLUCOSE (test code = 5593795485) 136 mg/dL 70-110 H CREATININE (test code = 6272801526) 0.63 mg/dL 0.6-1.25 CALCIUM (test code = 6514067628) 9.1 mg/dL 8.6-10.6 eGFR (test code = 9070648260) mL/min/1.73m2 STAN[place]ORD (test code = STANFORD) Association [...] imaging tests). Lab Interpretation (test code = 27365-1) [facility]normal [facility] HospitalProthrombin Time / INR - Code Exgnpg5775-10-09 14:47:05* Test Item Value Reference Range Interpretation Comme [facility] PROTIME PATIENT (test code = 5964-2) See_Comment [Automated [employer]] The system which generated this result transmitted reference range: 10.1 - 12.6 Seconds. The reference range was not used to interpret this result as normal/abnormal. INR (test code = 6301-6) Normal INR <1.1; Warfarin Therapeutic range 2.0 to 3.0 or 2.5 to 3.5, depending upon the indications. Lab Interpretation (test code = 48132-8) Normal [facility] HospitalaPTT - Code Sldvpa4614-95-49 14:47:05* Test Item Value Reference Range Interpretation Comme [facility] APTT Patient (test code = 3173-2) See_Comment [Automated [employer]] The system which generated this result transmitted reference range: 26 - 36 Seconds. The reference range was not used to interpret this result as normal/abnormal. Lab Interpretation (test code = 88962-6) Normal [facility] HospitalCBC without Diff - Code Pprgjq4899-33-83 14:39:43* Test Item Value Reference Range Interpretation Comme [facility] WBC (test code = 6690-2) See_Comment H [...] result as normal/abnormal. MPV (test code = 83828-7) 9.8 fL 9.8-13 RDW-CV (test code = 788-0) 15.3 % 12.1-15.4 RDW-SD (test code = 33064-0) 46.8 fL 38.5-51.6 NRBC x10^3 (test code = 0611247371) See_Comment [Automated [employer] ge] The system which generated this result transmitted reference range: 10*3/?L. The reference range was not used to interpret this result as normal/abnormal. NRBC/100 WBC (test code = 4485284543) See_Comment [Automated [employer] ge] The system which generated this result transmitted reference range: 0.0 - 10.0 /100 WBCs. The reference range was not used to interpret this result as normal/abnormal. IPF % (test code = 9794553431) Lab Interpretation (test code = 41590-5) Abnormal [facility] HospitalANTICARDIOLIPIN NXEAGVYRWD7064-79-42 02:21:10 * Test Item Value Reference Range Interpretation Comments Anticardiolipin Antibody IgG (test code = 5926759601) See_Comment [Automated message] The system which generated this result transmitted reference range: 0.0 - 10.0 GPL. The reference range was not used to interpret this result as normal/abnormal . Anticardiolipin Antibody IgM (test code = 6481564865) See_Comment [Automated message] The system which generated this result transmitted reference range: 0.0 - 10.0 MPL. The reference range was not used to interpret this result as normal/abnormal . Anticardiolipin Antibody IgA (test code = 8873989197) See_Comment [Automated message] The system which generated [...] 4: 2210-4 Lab Interpretation (test code = 82471-3) Normal [facility] (NA, K, CL, CO2, GLUCOSE, BUN, CREATININE, CA)2022-04-03 14:15:35* Test Item Value Reference Range Interpretation Comme nts NA (test code = 2144611035) 135 mmol/L 135-145 K (test code = 0643602199) 3.2 mmol/L 3.5-5 L CL (test code = 9100132732) 104 mmol/L 98-108 CO2 TOTAL (test code = 2550958271) 23 mmol/L 23-31 AGAP (test code = 3597997554) 2-16 BUN (test code = 2424570068) 17 mg/dL 7-23 GLUCOSE (test code = 8562665851) 101 mg/dL 70-110 CREATININE (test code = 9136608107) 0.79 mg/dL 0.6-1.25 CALCIUM (test code = 2853251555) 8.4 mg/dL 8.6-10.6 L eGFR (test code = 4233034026) mL/min/1.73m2 ST[place]ORD (test code = STANFORD) Association [...] imaging tests). Lab Interpretation (test code = 82986-3) [facility] 14:15:35* Test Item Value Reference Range Interpretation Comme nts MAGNESIUM (test code = 1368823642) 1.9 mg/dL 1.7-2.4 Lab Interpretation (test cod e = 62186-9) Normal [facility] WITH [id number] 09:34:09* Test Item Value Reference Range Interpretation [...] 32.9 g/dL 31.2-35 RDW-SD (test code = 37882-8) 45.3 fL 38.5-51.6 RDW-CV (test code = 788-0) 14.9 % 12.1-15.4 PLT (test code = 777-3) See_Comment [Automated messa ge] The system which generated this result transmitted reference range: 150 - 328 10*3/?L. The reference range was not used to interpret this result as normal/abnormal. MPV (test code = 09167-4) 9.9 fL 9.8-13 NRBC/100 WBC (test code = 1759464277) See_Comment [Automated [employer] ssage] The system which generated this result transmitted reference range: 0.0 - 10.0 /100 WBCs. The reference range was not used to interpret this result as normal/abnormal. NRBC x10^3 (test code = 9969501286) See_Comment [Automated messa ge] The system which generated this result transmitted reference range: 10*3/?L. The reference range was not used to interpret this result as normal/abnormal. GRAN MAT (NEUT) % (test code = 770-8) 52.9 % IMM GRAN % (test code = 5143609057) 0.20 % LYMPH % (test code = 736-9) 33.3 % MONO % (test code = 5905-5) 11.7 % EOS % (test code = 713-8) 1.5 % BASO % (test code = 706-2) 0.4 % GRAN MAT x10^3(ANC) (test code = 2314861874) 2.48 10*3/uL 1.99-6.95 IMM GRAN x10^3 (test code = 1529822395) 0-0.06 LYMPH x10^3 (test code = 731-0) 1.56 10*3/uL 1.09-3.23 MONO x10^3 (test code = 742-7) 0.55 10*3/uL 0.36-1.02 EOS x10^3 (test code = 711-2) 0.07 10*3/uL 0.06-0.53 BASO x10^3 (test code = 704-7) 0.01-0.09 Lab Interpretation (test code = 72531-4) Abnormal [facility] HospitalANTI-B2 GLYCOPROTEIN I [id number] 00:14:46* Test Item Value Reference Range Interpretation Comments Anti-B2 Glycoprotein 1 IgG (test code = 4026430630) See_Comment [Automated message] The system which generated this result transmitted reference range: 0.0 - 20.0 SGU. The reference range was not used to interpret this result as normal/abnormal. Anti-B2 Glycoprotein 1 IgM (test code = 2482925128) See_Comment [Automated message] The system which generated this result transmitted reference range: 0.0 - 20.0 SMU. The reference range was not used to interpret this result as normal/abnormal. Anti-B2 Glycoprotein 1 IgA (test code = 8665296901) See_Comment [Automated message] The system which generated [...] losses and/or thrombocytopenia. TEST PERFORMED AT:[facility]. [address], [address] [place] [address] [facility] [place] [address] Lab Interpretation (test code = 33578-1) Normal [facility] HospitalANTI-NUCLEAR ANTIBODY-PATHOLOGIST RNYQLJQGQVPSWH6511-25-83 19:07:26ANA - Pathologist InterpretationANA HEp-2 IIFA Pathologist [...] purpura, thyroid disease, discoid lupus, or fibromyalgia. (https://pubmed.ncbi.nlm.nih.gov/25939688/, https://pubmed.ncbi.nlm.nih.gov/87397416/) ? ? Therefore, a diagnosis cannot be based exclusively on DUARTE detection and/or pattern and thus should be made via the integration of patient history, physical exam findings, and other diagnostic tests as clinically indicated. Karuna Anderson MD ?04/02/2022 ?2:07 PM04/02/2022 2:07 PM [facility]- Nuclear Anitbody (DUARTE) Sxptlu8929-87-58 19:07:06* Test Item Value Reference Range Interpretation Comme nts DUARTE (test code = 4341877555) Negative Negative ST[place]ORD (test code = STANFORD) Negative: ?No Anti-Nuclear Antibodies detected by IFA. Positive: ?DUARTE IFA screen performed with a 1:80 dilution in adults and a 1:40 dilution in pediatrics. ?A titer is performed and reported separately when the DUARTE is "Positive" or when "Cytoplasmic staining is observed." Lab Interpretation (test code = 81406-0) [facility]-ZCQEUUPZSMNZEJHVY3269-13-14 17:19:09* Test Item Value Reference Range Interpretation Comme nts Anti-Ribonucleoprotein (test code = 1288401009) Negative Negative STAN[place]ORD (test code = STANFORD) Positive - Antibod y detected.Negative - No antibody detected. Lab Interpretation (test code = 61638-2) [facility]-CANALES(SM)2022-04-01 17:19:09* Test Item Value Reference Range Interpretation Comme nts Anti-Canales (test code = 8065411422) Negative Negative ST[place]ORD (test code = STANFORD) Positive - Antibod y detected.Negative - No antibody detected. Lab Interpretation (test code = 06963-8) [facility]-SSA(RO)2022-04-01 17:19:09* Test Item Value Reference Range Interpretation Comme nts ANTI-SSA(RO) (test code = 5815409865) Negative Negative ST[place]ORD (test code = STANFORD) Positive - Antibod y detected.Negative - No antibody detected. Lab Interpretation (test code = 53731-0) [facility]-SSB(LA)2022-04-01 17:19:09* Test Item Value Reference Range Interpretation Comme nts Anti-SSB(LA) (test code = 8668907863) Negative Negative ST[place]ORD (test code = STANFORD) Positive - Antibod y detected.Negative - No antibody detected. Lab Interpretation (test code = 73492-3) Normal [facility] HospitalIMMUNOGLOBULIN G A M [id number] 17:18:48 * Test Item Value Reference Range Interpretation Comme nts IgA (test code = 2288914284) 141 mg/dL 70-312 IgG (test code = 4292533186) 920 mg/dL 636-1600 IgM (test code = 4262599704) 56 mg/dL 56-352 Lab Interpretation (test cod e = 16017-8) Normal [facility] (NA, K, CL, CO2, GLUCOSE, BUN, CREATININE, CA)2022-04-01 11:26:53* Test Item Value Reference Range Interpretation Comme nts NA (test code = 7631002534) 141 mmol/L 135-145 K (test code = 5775450182) 3.9 mmol/L 3.5-5 CL (test code = 1120426305) 103 mmol/L 98-108 CO2 TOTAL (test code = 1628934146) 34 mmol/L 23-31 H AGAP (test code = 0720365757) 2-16 BUN (test code = 7621405865) 9 mg/dL 7-23 GLUCOSE (test code = 1850961816) 129 mg/dL 70-110 H CREATININE (test code = 5429051634) 0.73 mg/dL 0.6-1.25 CALCIUM (test code = 2260258202) 9.1 mg/dL 8.6-10.6 eGFR (test code = 5897220708) mL/min/1.73m2 [place] (test code = STANFORD) Association [...] imaging tests). Lab Interpretation (test code = 57457-8) Abnormal [facility] with Hpszoemcfzma8249-64-69 18:20:26* Test Item Value Reference Range Interpretation Comme nts WBC (test code = 6690-2) See_Comment [[employer]] The system which generated this result transmitted reference range: 4.20 - 10.70 10*3/?L. The reference range was not used to interpret this result as normal/abnormal. RBC (test code = 789-8) See_Comment [[employer]] The system which generated this result transmitted [...] 32.6 g/dL 31.2-35 RDW-SD (test code = 92914-3) 45.7 fL 38.5-51.6 RDW-CV (test code = 788-0) 14.9 % 12.1-15.4 PLT (test code = 777-3) See_Comment [Automated messa ge] The system which generated this result transmitted reference range: 150 - 328 10*3/?L. The reference range was not used to interpret this result as normal/abnormal. MPV (test code = 83707-3) 9.6 fL 9.8-13 L NRBC/100 WBC (test code = 0781753311) See_Comment [Automated me ssage] The system which generated this result transmitted reference range: 0.0 - 10.0 /100 WBCs. The reference range was not used to interpret this result as normal/abnormal. NRBC x10^3 (test code = 9719923603) See_Comment [Automated messa ge] The system which generated this result transmitted reference range: 10*3/?L. The reference range was not used to interpret this result as normal/abnormal. GRAN MAT (NEUT) % (test code = 770-8) 83.6 % IMM GRAN % (test code = 8112937287) 0.40 % LYMPH % (test code = 736-9) 10.6 % MONO % (test code = 5905-5) 4.9 % EOS % (test code = 713-8) 0.1 % BASO % (test code = 706-2) 0.4 % GRAN MAT x10^3(ANC) (test code = 0359855925) 8.56 10*3/uL 1.99-6.95 H IMM GRAN x10^3 (test code = 8372416074) 0.04 10*3/uL 0-0.06 LYMPH x10^3 (test code = 731-0) 1.08 10*3/uL 1.09-3.23 L MONO x10^3 (test code = 742-7) 0.50 10*3/uL 0.36-1.02 EOS x10^3 (test code = 711-2) 0.06-0.53 L BASO x10^3 (test code = 704-7) 0.04 10*3/uL 0.01-0.09 Lab Interpretation (test code = 50602-3) [facility]normal [facility] HospitalHEMOGLOB[facility] A1C* Test Item Value Reference Range Interpretation Comme nts A1C (test code = 4548-4) 6.0 Consult Notes Date/Time Note Provider Source 2023-02-15 12:40:00 BHTK4TG+n//+MmVW3sKS PEozinCGHn3a zSX9bbem3DO8QzXvauwXHdumv71+LR+A 5980-27-22J80:40:00Associated Order(s): CONSULT ADULT OCCUPATIONAL THERAPY OT GENERAL EVALUATIONConsult received via [employer], EMR reviewed and evaluation completed 02/15/23. Patient [...] Right 02/12/2022 Surgeon: Adelso Torres MD; Location: [facility] PAIN: Denies pain before and after session. [...] to enable patient to complete evaluation component. 05726-8Hfhowdo lldjJK7502-17-59R89:54:28Consult noteTXT1.2.840.429032.1.13.104.2 .7.2.539845|[id number] e for patient [id number] K Flaherty [address] 3001NREWOEUFDDGCNRNYWVCEHK9943-1 5:54:281.2.840.724439.1.72 .3.15|1.2.840.922241.1.13.104.2. 7.2.727879_1858232500 Rufus Rand OT [facility] 2023-02-14 14:25:34 3rSbDv9xDKdhyYQ8eT3m aRfqA/JrEro9 qlHd4A3BW6m28LnJZeNN92mg5L5QDEIY 3000-41-00A38:25:34Associated Order(s): [facility]OUS DISE[facility] CONSULTATION NOTE CLS Infectious Diseases Luis Alberto Rosario MD; Brodie Mckeon MD; Enrique Zuniga MD; Cisco Pollock MD; Malik Rich MD; Magdalena Gan MD; Laura Anne MD; Jhon Miles MD; Frank Alex MD [place] Office: [address], [place] [address] P: / F: [place] Office: [address], [place] [address] P: / F: REQUESTING CLINICIAN:Barak Poon FOR CONSULTATION:Concern for PERSONAL INVESTMENT ADVISER infectionHISTORY OF PRESENT ILLNESS:Mike Sarah Tito III is a 47 year old male with history of seizure disorder, PERSONAL INVESTMENT ADVISER vasculitis who was admitted early this a.m. [...] a normal WBC count. Patient has had PERSONAL INVESTMENT ADVISER imaging, which has been reviewed. No culture [...] Right 02/12/2022 Surgeon: Adelso Torres MD; Location: [facility] SOCIAL HISTORY:Social History Tobacco Use Smoking status: [...] mg, 1,750 mg, Oral, BID, Dolores Caldwell, [employer] V[employer]ING [employer]ACHINE SERVICER, 1,750 mg at 02/14/23 1316 ferrous sulfate tablet 325 mg, 325 mg, Oral, Q OTHERDAY, Sigifredo Boston MD, 325 mg at 02/14/23 1320 fluticasone propionate 50 mcg/actuation nasal spray 1 Warwick, 1 Warwick, Nasal, BID, Sigifredo Boston MD, 1 Warwick at 02/14/23 1316 gabapentin (NEURONTIN) capsule 300 [...] report. ASSESSMENT:47 year old male presents with:*Fever, resolved*PERSONAL INVESTMENT ADVISER vasculitis*Seizure disorder with breakthrough seizure*Postictal confusion-Patient's fever has resolved. On clinical evaluation, there is no obvious evidence of PERSONAL INVESTMENT ADVISER infection or meningitis. He seems to be waking up and improving without antimicrobials.PLAN:-Monitor off antimicrobials.-Given reported history of PERSONAL INVESTMENT ADVISER vasculitis, will screen for syphilis.-No obvious indication for LP from ID standpoint currently.-Further recommendations to follow based upon clinical course.Thank you for this consultation; will continue to follow. 95419-4Xufixqs kaxwIT9557-20-45A83:35:21Consult noteTXT1.2.840.123609.1.13.104.2 .7.2.490680|[id number] e for patient [address] GhdjXdagowgjkNaicbhbqgRGUW778034 0269NAXOIRDNNUDUEEGODAYNEE5156-3 02-14T17:35:211.2.840.231042.1.72 .3.15|1.2.840.558208.1.13.104.2. 7.2.727879_[id number] [facility] 2023-02-14 09:51:00 6euQ92D6MW2TGKEHR39H Yj8TnbpuQe4Z VOkqMPN0eah+Ync7rFljSxqKbuvYpKNu 3556-26-44G97:51:00Associated Order(s): CONSULT NEUROLOGY Neurology ConsultationPatient's Name: Mike Francis IIIMRN: [id number] of : 1975 Age: 47 yrsDate of Admission: 3Date of Service: 02/14/2023Referring provider:Dr Jeffrey for Consultation:Seizure History of Present Illness:47 yo with history of seizures and PERSONAL INVESTMENT ADVISER vasculitis on depakote presenting as a transfer [...] Right 02/12/2022 Surgeon: Adelso Torres MD; Location: [facility] Allergies Allergen Reactions Shellfish Derived Anaphylaxis Keppra [...] mg, 1,750 mg, Oral, BID, Dolores Caldwell, ROUTE VENDING MACHINE SERVICER ferrous sulfate tablet 325 mg, 325 mg, Oral, Q OTHERDAY, Sigifredo Boston MD fluticasone propionate 50 mcg/actuation nasal spray 1 Warwick, 1 Warwick, Nasal, BID, Sigifredo Boston MD gabapentin (NEURONTIN) [...] mEq, 40 mEq, Oral, ONCE, Dolores Caldwell, ROUTE VENDING MACHINE SERVICER lisinopriL (PRINIVIL,ZESTRIL) tablet 40 mg, 40 mg, [...] of motionSkin: dry, intact, normal color, normal temperatureNeuro/PERSONAL INVESTMENT ADVISER: Mental status: alert, oriented X self. Aphasic [...] Seizure disorder 2. Post ictal state 3. PERSONAL INVESTMENT ADVISER vasculitis 47 yo with PERSONAL INVESTMENT ADVISER vasculitis presenting with breakthrough seizure in setting [...] in neurological status. Duglas Miller MD Neurologist 80317-1Qvyjwht whmqOT0248-86-43V51:58:35Consult noteTXT1.2.840.851184.1.13.104.2 .7.2.448959|[id number] e for patient [address] EerlSmuheckaqVpahamncqGSQH364085 6197ZVMZMKLSNFTNOKTOPFDCFC4197-8 7-24T09:58:351.2.840.218974.1.72 .3.15|1.2.840.596335.1.13.104.2. 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 Ibuprofen 800, normal saline bolus 1 L, IV lacosamide(Vimpat) x1DDQVXV OF SYSTEMS(-)=Negative,(+)=Positive See HPIPAST MEDICAL HISTORY Past Medical History: Diagnosis Date CAD (coronary artery disease) HLD (hyperlipidemia) HTN (hypertension) Pre-diabetes Past Surgical History: Procedure Laterality Date CRANIOTOMY BIOPSY BRAIN (SHX) Right 02/12/2022 Surgeon: Adelso Torres MD; Location: [facility] Family History Problem Relation Age of Onset [...] RELIEF) 50 mcg/actuation nasal spray Use 1 Warwick in each nostril in the morning and 1 Warwick in the evening. 16 g 0 amLODIPine [...] (ONE-A-DAY MEN'S MULTIVITAMIN ORAL) Take by mouth. aodmm-1d-pih-epa-fish oil-D3 (FISH OIL-VIT D3) 360 mg-1,200 mg -1,000 unit Cap Take by mouth. 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 The [...] matter changes likely relatedto the patient's known PERSONAL INVESTMENT ADVISER vasculitis.ASSESSMENT/PLANMike Sarah Francis III is a 48 year old male with PMH as listed above, admitted to the hospital with:Breakthrough seizuresCOVID-19 infectionPrimary PERSONAL INVESTMENT ADVISER angiitis(biopsy-proven 03/2022)Patient presented with 2 episodes of [...] 3 months from the last seizure per [place] State Law. Patient was also warned to [...] DVT- enoxaparinStress Ulcer: pantoprazoleCode Status: addressed: ROSELINE [facility] Medicine ssociated attestation - Oma Obando MD [...] 03/21/2023 4:14 AMAssistant Professor of General Medicine. 63049-9Mjyhlcd and physical xhvhAP2963882Nuty, Saad M.1.2.840.785092.1.13.104.2.7.2.040106FslaGisella GutierrezXY4101-78-10V03:22:47History and physical noteTXT1.2.840.555194.1.13.104.2.7.2.11993 9|[id number] for patient hnpy31598-8Vvcqgww and physical noteLNUT[address] JgquIhlzkzdvhVruhrckwlHDRD5468893559PXBRGP FAHAHSIMJDZERMWU9663-24-46B74:22:471.2.840 .042135.1.72.3.15|1.2.840.508813.1.13.104. 2.7.2.727879_[id number] [facility] 2023-02-14 01:18:10 g1u495fcuFKxdsXeCeH+ X6Qe7Nv8B7DbjmNbtmlF/N WeObTiNYTjfZmB6UnfnBsr6005-60-52L66:18:10F ormatting of this note is different from the original.[facility] Intensive Care History and Physical Date of Service: 02/14/2023 01:19 IMU day: 1Intubation Day: n/aCHIEF COMPLAINT: Worsening mentation/altered mental statusHISTORY OF PRESENT ILLNESSMike Francis III is a 47 year old male who presented to [facility] with worsening seizure activity and post-ictal worsening lethargy. Request was made for ICU level of care. Transferred here because well known to [facility]. On arrival pt. Is stable, with more forgetfulness being the only presenting concern per .PAST MEDICAL HISTORY Past Medical History: Diagnosis Date CAD (coronary artery disease) HLD (hyperlipidemia) HTN (hypertension) Pre-diabetes PAST SURGICAL HISTORYPast Surgical History: Procedure Laterality Date CRANIOTOMY BIOPSY BRAIN (SHX) Right 02/12/2022 Surgeon: Adelso Torres MD; Location: 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 Marcano aware of pt. Chronic PERSONAL INVESTMENT ADVISER Vasculitis with seizure disorderChecking basic labsTSHPer , pt. Seizure free since medications [facility].Will reordered all meds.Once plan in place, [...] Heparin SQ for nowDispo:IMUPrognosis:FairCode Status: FullVictor Ludy HARMONDR. [facility] Ptpvumssksgutl78/24/231:19 AM 76813:I spent a total of 40 minutes reviewing the chart and test results, obtaining the history, performing the exam and MDM along with placing orders, charting, and speaking with the patient/family. 77773-5Muangkz and physical mofkLL2290-16-84R01:25:07History and physical noteTXT1.2.840.783276.1.13.104.2.7.2.37158 9|[id number] for patient [address] RpodKwpcaookdGhcjlldlrTDTS7500596313YUNYSF UMZSEVYHDFQTNHMT7141-57-31P80:25:071.2.840 .963061.1.72.3.15|1.2.840.990159.1.13.104. 2.7.2.727879_[id number] [facility] Notes Date/Time Note Provider Source 2023-03-22 13:46:18 xtJTLhqqYOTh3c6VAmAt t+yUXtLcvKuIS U3w1D42taBTA2ZUcrChqzCb10dq7qLZ92 16-03-29T13:46:18 TRANSITIONAL CARE MANAGEMENT ASSESSMENT03/22/2023 Mike Francis III207274PMelkailey Francis III is a 48 year old Black or male was admitted on 03/20/[address] He was discharged on 03/21/23 with discharge disposition of HR- Routine Discharge.Admitting Physician: Oma ObandoDischarge Diagnosis: Breakthrough Seizure 2/2 primary PERSONAL INVESTMENT ADVISER angitis No linked episodesTCM Lnt-zbmu-ld-face outreach documentation:Discharge AssessmentChart Assessed: 03/22/23TCM Outreach Completed: [...] Dept Phone 05/23/2023 1:30 PM (Cmme), Girish [facility] Engagement and Education [facility], [place] [phone] 05/27/2023 3:00 PM Elin Vieyra MD [facility] Neurology, PCP [place] [phone] 06/03/2023 8:45 AM Tasha Smart Infusion Chair [facility] [phone] 06/14/2023 9:30 AM Marlon Bush MD [facility] Eye [place], [place] [phone] 76077-7Yxnwqtyqw encounter QfbcEH1623-10-60K73:46:55Telephon e encounter NoteTXT1.2.840.211019.1.13.104.2. 7.2.231670|[id number] for patient hkxo17240-6XjsbMC442320687Xcexi B Porter RN[address] VgufEvuujnjvyGzlwywuzwBHHS9182145 498OHGWEEQUTZVYZHJMFLEKJW0683-53- 29T13:46:551.2.840.168427.1.72.3. 15|1.2.840.130167.1.13.104.2.7.2. 727879_[id number] Jewell Mckeon RN [facility] 2023-03-21 16:36:25 1UF4Dxe6MemkEsH6/Jack s4vRRr0YM1B6G 9om9OEi52Amw+19SuopWib0fx6+xmoY20 16-03-28T16:36:25 Problem: Falls, Risk ofGoal: Absence of fallsOutcome: Resolved Problem: Seizures, Risk of / or ActualGoal: Absence of injury related to seizure activityOutcome: ResolvedGoal: Absence of seizure activityOutcome: Resolved 17440-2Oruo of care mdplHN4151-25-35J96:36:30Plan of care noteTXT1.2.840.158052.1.13.104.2. 7.2.813369|[id number] for patient fcsx47629-0PibuSL109347642Cizif Bentum RNUT[address] UyjkOvpdiphbdKfurfcerxSFJS9898971 698XHJXMPDEELYFWEKAQTASWO9568-30- 28T16:36:301.2.840.575157.1.72.3. 15|1.2.840.882501.1.13.104.2.7.2. 727879_[id number] Sandra Lopez RN [facility] 2023-03-21 01:56:57 Irj93wSBVFAU63DQi6Jr BEkoKsVMZM/at 5DTpOgWOqaJGd2MVW6jiYKz4x3lVY2g32 16-03-28T01:56:57 Problem: Falls, Risk ofGoal: Absence of fallsOutcome: Progressing as expected Problem: Seizures, Risk of / or ActualGoal: Absence of injury related to seizure activityOutcome: Progressing as expectedGoal: Absence of seizure activityOutcome: Progressing as expected 55272-3Vzng of care uxlxHT2373-73-34K45:57:00Plan of care noteTXT1.2.840.999807.1.13.104.2. 7.2.588472|[id number] for patient teul00979-8UsxaIN593205968Ctkljo Ino Mendoza RN[address] StreetTXTX[address] 473MPOYGSOZWJCEAOQIIJLWCX4061-78- 28T01:57:001.2.840.101269.1.72.3. 15|1.2.840.447195.1.13.104.2.7.2. 727879_[id number] Shama Ino Mendoza RN [facility] 2023-03-20 23:42:28 WDLE0mkg6tlvpggakg/c uVKxAmIcSF3vQ 2oT6ysFXDzk+UaR4a6p8FndLTk7MAhP58 16-03-27T23:42:28 Resident at to assess ptPt transported to the floor via stretcher with [facility] transport and significant other. Patient aaox2, breathing even/unlabored, in NAD. Patient stable for transport at this time. 78468-0Vpvnkmwti department TnitDU1881-10-30E81:44:37Emergen y department NoteTXT1.2.840.172618.1.13.104.2. 7.2.307870|[id number] for patient opsu17905-0LracBW997288294Cbsqupl R [place]en[place] RNUT[address] StreetTXTX[address] 278FZZEWTRTVEMPDEBPNCVLMK3136-81- 27T23:44:371.2.840.909291.1.72.3. 15|1.2.840.275622.1.13.104.2.7.2. 727879_[id number] Nazia Galloway RN [facility] 2023-03-20 23:24:49 EmdafrT9KQt7YkFuQejL OqKaQmQno4Kx5 jefUzoTjsVRkhZxpnL8yYxaFUSffc+q20 16-03-27T23:24:49 Report called to Shama DUONG on 9C. POC discussed, questions answered. Pending transportation at this time 72227-2Eeaqamcpz department TzajKO5548-57-81Z52:26:01[facility] NoteTXT1.2.840.114429.1.13.104.2. 7.2.452164|[id number] for patient [address]TXTX[address] 053ZCERXUJOVRXCVEXIBDZEIF3060-77- 27T23:26:011.2.840.019996.1.72.3. 15|1.2.840.697607.1.13.104.2.7.2. 727879_[id number] [facility] 2023-03-20 22:00:00 j8A2BvFy4S3qqaWiurYt R3nqROltMLOVw /tDhYcfsYCUJlIULCtGndxMit4JdBki78 16-03-27T22:00:00 Pt now oriented to name, but unable to remember birthday, where he is or what happened. 28216-1Uujxusolg department SxtkHR0156-98-65B93:14:07[facility] department NoteTXT1.2.840.580426.1.13.104.2. 7.2.152647|[id number] for patient hdhl76759-6ClpxBVYFCTRRVX[address]TXTX[address] 928UUKBDJZLUGVAGVWSJPNMZV9939-73- 27T22:14:071.2.840.270204.1.72.3. 15|1.2.840.626558.1.13.104.2.7.2. 727879_[id number] [facility] 2023-03-20 21:08:52 55jDbGyLncwFOPu8UXoc 88T8Kd25yrY43 335xDEuCS7GfbKVUGFin3VvuF85uCAa35 16-03-27T21:08:52 Neuology Resident at to assess pt. Resident notified of changes 10108-0Gelwmkpwi department WuegBI9255-13-93Q00:09:19Emergen y department NoteTXT1.2.840.870636.1.13.104.2. 7.2.788081|[id number] for patient cbwe17544-5NunbUEHCXEGVMJ[address]TXTX[address] 012PJVGMNAYBQUWFCNFPWXRHP2553-60- 27T21:09:191.2.840.248244.1.72.3. 15|1.2.840.969623.1.13.104.2.7.2. 727879_[id number] [facility] 2023-03-20 21:00:00 JV1at9UbcNJ3OYBXdsxj ztfn9FeLXj2Tu v3ygx32PeeGWERVe9KjSjlB2doUHZz050 16-03-27T21:00:00 Pt resting in stretcher on continuous personnel monitor. Upon entry to room pt sleeping in stretcher. Pt AOx0, per family member this has happened before but not since they have been at the hospital. Kianna HARMON notified. 43645-6Sdhymqtat department LhliKP4047-51-72L49:29:47[facility] department NoteTXT1.2.840.745199.1.13.104.2. 7.2.657979|[id number] for patient vxhr61680-1HbrnWXVGNIHMHB[address]TXTX[address] 332RKISPPNHYOIPGOUZYKFDZB1870-48- 27T21:29:471.2.840.663084.1.72.3. 15|1.2.840.883206.1.13.104.2.7.2. 727879_[id number] [facility] 2023-03-20 19:06:49 z/tjGaExxxqamak9NcJW Mj2MYzA1nD/r2 PRRaIKR9Ww706fPE/wo1pB3J3gtUFi621 16-03-27T19:06:49 Shift change report given to AD Mandujano. Reviewed chief complaint, assessment findings, allergies, MAR and orders. Plan of care discussed at bedside with patient and both nurses. Patient / family verbalized understanding of POC. 83199-8Oifxtxksm department SbwxMW3697-55-21Q66:07:04[facility] department NoteTXT1.2.840.534856.1.13.104.2. 7.2.570721|[id number] for patient hccy52349-3OyztOC781268010Hsbijt Jordon [address]TXTX[address] 770OLQWUOOIYSRTPMSHQDDEGR2184-29- 27T19:07:041.2.840.506420.1.72.3. 15|1.2.840.646598.1.13.104.2.7.2. 727879_[id number] Thien Ruvalcaba RN [facility] 2023-03-20 19:00:00 63Jb1zEHFECI9E8aku2K zq68pv5g0Xhyv fNqwEecHTnduo4Vtuj7HNOmRi9jwd7E78 16-03-279:00:00 Pt returned from radiology. [place] [address]-7Brnnulurg department JpwvRA8175-67-13N13:09:59[facility] department NoteTXT1.2.840.524958.1.13.104.2. 7.2.465037|[id number] for patient lpgd11656-0QxwpWKSTGQSHTQ[address]vdGalvestonGalvestonTXTX[address] 030DPCOFYASEISPGYBLSTXSPX6049-10- 27T21:09:591.2.840.961442.1.72.3. 15|1.2.840.621629.1.13.104.2.7.2. 727879_[id number] [facility] 2023-03-20 18:05:00 8LNFUunaRvSP4MU9wKvo wnutOsHDmJm f4/lMMDMzk77q7Z+9MFNVemdTtoADRx37 16-03-278:05:00 Pt calm, quiet, in bed, RR e/u, at side and call light within reach. 10831-4Pfoncgkcy department SqsmFX8521-23-87W29:13:55[facility] department NoteTXT1.2.840.881524.1.13.104.2. 7.2.214944|[id number] for patient zpxk68377-2FebjYXCTSXOSUT[address]vestonTXTX[address] 779TPFJDXGWSEPKFOLLOJRBKS0486-25- 27T19:13:551.2.840.911906.1.72.3. 15|1.2.840.945809.1.13.104.2.7.2. 727879_[id number] [facility] 2023-03-20 18:03:43 5qpuz1gwe7oYyHWtskZW Ftsgjucnjb0Ls sveVorCRq+vdiDEMZDW7ymRE5X5D49s56 16-03-27T18:03:43 Pt transferred via stretcher to [facility] at this time. Report given to AD Cordoba. Pt alert but appears post ictal, slightly anxious VSS. 87295-0Kpnnwikeu department NzggNJ2059-73-04O60:04:19[facility] department NoteTXT1.2.840.473306.1.13.104.2. 7.2.099535|[id number] for patient efik14788-2QmcwBW295243656Pbjtft M Davis RN[address] StreetTXTX[address] 976AAYJQHOCXUVHUWBQFAHHHY7847-78- 27T18:04:191.2.840.948036.1.72.3. 15|1.2.840.877543.1.13.104.2.7.2. 727879_[id number] Lelia Tam RN [facility] 2023-03-20 17:27:33 OY4FMudrTvBfCnh8vHO2 U+baz6FS0H8TQ SDNSYqr5GkFj4nQsOXchKa0in3IrENh08 16-03-277:27:33 ED MD and RN at bedside attempting U/S guided IV access 31257-4Zgrotckri department JcvmFE7562-24-59X60:27:51[facility] department NoteTXT1.2.840.820704.1.13.104.2. 7.2.434536|[id number] for patient yqyd53650-4DvcjYHQFZNYNFH[address] ZkqxUivfhjfieSwbronuuyNZKD1604376 917ZFKLAPTNJESDCJZWXCPYXM8146-33- 27T17:27:511.2.840.463982.1.72.3. 15|1.2.840.096617.1.13.104.2.7.2. 727879_[id number] [facility] 2023-03-20 17:13:11 SQQNRHlSg3gv9P/Ssdlv Ty41bYIelqJji 7821YEixw3uA752pXyJBbEGUUHaSRnJ61 16-03-27T17:13:11 Mike Francis III is a 48 year old male presents to the ed with cc of seizure like activity. Pt has history of PERSONAL INVESTMENT ADVISER vasculitis and seizures. Pt presents to the [...] vss. To room for eval by provider. 67935-9Ethtpmspk department Triage qpchOY5625-85-40V49:18:44Emergen y department Triage noteTXT1.2.840.374562.1.13.104.2. 7.2.470907|[id number] for patient gphm76235-5Wlyfmzcpb department WcjlHU930818970Wvhkbhh Herndon RN[address] HkmiLvuqoxjkgXtugyqdjtRESR3659572 119FIGUEOUTHRZXKWMHHWHVSQ7029-47- 27T17:18:441.2.840.234748.1.72.3. 15|1.2.840.727674.1.13.104.2.7.2. 727879_[id number] Jose Luis Guido RN [facility] 2023-03-20 16:58:00 UcgMSGZc6dJaVYVweey/ nomZ/WbQuL2k9 6z23skuwGgrHgo9h1f1b4ZuvBaPfqeG79 16-03-27T16:58:00 [facility] Emergency Department NotePatient Name: Mike Francis IIIDate of : 1975 48 year old maleTreatment Room: Room/bed info not foundMedical Record Number: [id number] [place] [facility] Physician: ST TRINI NICOLEPatient Escorted by: Family [5]Mode of Arrival: Personal means [1]EMS Treatment Prior to ED Arrival:SPECIAL EDUCATION PROFESSIONAL treatment: None Travel and Exposure Screening:SymptomsDoes patient [...] to hospital was in January 2023 at [facility]. Spouse does report associated fevers with previous [...] Right 02/12/2022 Surgeon: Adelso Torres MD; Location: [facility] Review of Systems: Review of Systems Constitutional: [...] 1.7 - 2.4 mg/dL COMP. METABOLIC PANEL (72630) NA 138 135 - 145 mmol/L K [...] URINALYSIS CBC WITH DIFF COMP. METABOLIC PANEL (88992) MAGNESIUM VALPROIC ACID, FREE Blood Culture - [...] RELIEF) 50 MCG/ACTUATION NASAL SPRAY Use 1 Warwick in each nostril in the morning and 1 Warwick in the evening. GABAPENTIN 300 MG CAPSULE [...] (ONE-A-DAY MEN'S MULTIVITAMIN ORAL) Take by mouth. PHZUK-2A-PDE-EPA-FISH OIL-D3 (FISH OIL-VIT D3) 360 MG-1,200 MG [...] file Follow-up:Electronically signed by: Joan Waite MD03/20/231906 85636-9[place] Emergency department DwvmZX5887-63-22G56:07:04Physicia n Emergency department NoteTXT1.2.840.566282.1.13.104.2. 7.2.452730|[id number] for patient yzmy07274-9Gvyzqolok department NoteLNUT[address] JenvXziuxnbmuBgiwhwjdjRURZ1089548 043YYPOKCWRCTCDWAYHHTNZRS6225-96- 27T19:07:041.2.840.247647.1.72.3. 15|1.2.840.146594.1.13.104.2.7.2. 727879_[id number] [facility] 2023-03-20 16:58:00 rbwLcY9QBE+wAiRJVqiD WDVl9tW62MftP LR4b6JkvhneRIs+MM7SGabAaQO45izM27 16-03-27T16:58:00 Medical Decision MakingTook over patient's care [...] drug management.Parenteral controlled substances. Maury Hutchison MD03/20/232221 18372-9Zicydgddm Emergency department JyxsHR6485-53-70U25:22:18Physicia n Emergency department NoteTXT1.2.840.444523.1.13.104.2. 7.2.744720|[id number] for patient zrdg09710-8Vmtmtlknw department NoteLNEMCARE EMERGENCY PHYSICIAN STAFFEMCARE EMERGENCY PHYSICIAN STAFF[address] DgjjCanngvjfxZupyqedrhGXCL1660168 118ENSXYRCGSSCGJFMLZEMOTJ6372-37- 27T22:22:181.2.840.919676.1.72.3. 15|1.2.840.657199.1.13.104.2.7.2. 727879_[id number] [facility] STAFF [facility] 2023-02-18 08:56:10 BUfalgsIZjeJNTAKKKQM u6vpedtKO+hcl xdXO4Rh0aXNdazO6hkfbFuMfppvVBtF05 14-02-28T08:56:10 New prescription sent for qty 240 tabs with 3 refills to last patient until f/u with Dr Vieyra in May, called pt, left detailed message stating med sent to pharmacy. 55362-2Iawipnrjp encounter BfbuPF3755-62-54V83:57:03Telephon e encounter NoteTXT1.2.840.147454.1.13.104.2. 7.2.934673|[id number] for patient care[id number] 540EAGGPJZWNFXANMQYCQSPTT7540-08- 28T08:57:031.2.840.454512.1.72.3. 15|1.2.840.074045.1.13.104.2.7.2. [id number] [facility] 2023-02-17 10:51:27 Jl2sGAWjveJ/goTdi/P1 Pa9+68Gk/V/hr I58VeBWjYdUREai+tSZXJmd4R2fXWeu21 13-02-27T10:51:27 Patient calling stating that patient was [...] Dr Vieyra 05/2023. Please contact patient at [phone] (home) 68113-9Yxfufzcrz encounter CifrGR8775-65-89E11:53:45Telephon e encounter NoteTXT1.2.840.742693.1.13.104.2. 7.2.549945|[id number] for patient [id number] Hodges[address]TXTX[address] 737QNDBKWXGDPBVEFSHNOPIAR2749-65- 27T10:53:451.2.840.189517.1.72.3. 15|1.2.840.546221.1.13.104.2.7.2. [id number] Gadiel Medrano [facility] 2023-02-17 08:45:32 qib8kM4/MGzbgw09Xdj7 Ad9Fvv17CZu72 Lk78bN1/ylfTMjhukUxSWSx5j1b2VRU82 13-02-27T08:45:32 TRANSITIONAL CARE MANAGEMENT ASSESSMENT02/17/2023 Mike Francis [id number] Francis III is a 47 year old Black or male was admitted on 02/13/23 to [facility]. He was discharged on 02/16/23 with discharge disposition of HR- Routine Discharge.Admitting Physician: Joao Zurita Diagnosis: Altered mental status [R41.82]Pt.'s Verbalized understanding discharge instructions. Linked Episodes Type: Episode: Status: Noted: Resolved: Last update: Updated by: TRANSITION OF CARE tcm Active 02/17/2023 02/17/2023 8:45 AM Leslie Palm LVN Comments: TCM Gdj-lqzg-gr-face outreach documentation:Discharge AssessmentChart Assessed: 02/17/23TC Outreach Completed: [...] with the names or descriptions of any hpxi-ety-spnojuh or supplements you are currently taking?: YesSuppliesDid [...] Provider Department Dept Phone 05/23/2023 1:30 PM ([facility] [place] [phone] 05/27/2023 3:00 PM Elin Vieyra MD [facility] Neurology, PCP [place] [phone] 06/03/2023 8:45 AM 4, Arina- Infusion Chair [facility] [phone] 47742-3Ncbtxodya encounter JelfMN7674-85-22O46:46:38Telephon e encounter NoteTXT1.2.840.947136.1.13.104.2. 7.2.172748|[id number] for patient [id number] Rivas [address] DrdhLgagbourzDeickonotTTXB7622887 147MFSURLUUFFWBZJGQRTPFRZ1693-53- 27T08:46:381.2.840.835319.1.72.3. 15|1.2.840.518755.1.13.104.2.7.2. [id number] Leslie Palm LVN [facility] 2023-02-16 11:42:24 7u2X05G3nrvMzbmskm/h YTAgHWIn3ro9V 2qg1p3ePZQBKmW4V33Qs6LpJCAQDA8L69 13-02-26T11:42:24 Problem: Discharge PlanningGoal: Adequate for discharge02/16/2023 [...] by Ramonita Mondragon RNOutcome: Adequate for discharge 72743-3Penw of care pjhiHS1214-99-08I93:42:28Plan of care noteTXT1.2.840.032437.1.13.104.2. 7.2.623557|[id number] for patient [id number] E Roos [id number] 632LJVZUURJXRDENDVBSNZWQO0510-99- 26T11:42:281.2.840.984723.1.72.3. 15|1.2.840.815947.1.13.104.2.7.2. [id number] Ramonita Mondragon [facility] 2023-02-16 10:51:56 2+rzJqi8dMzbzFblOPFx j6qIOYRs+AneI 4cT0V+9CcIQYzKTF74+992Xv/gasg8506 13-02-26T10:51:56 Problem: Discharge PlanningGoal: Adequate for dischargeOutcome: Adequate for discharge Problem: Falls, Risk ofGoal: Absence of fallsOutcome: Adequate for discharge Problem: Mental Status - Impaired, Risk ofGoal: Mental status restored to baselineOutcome: Adequate for dischargeGoal: Absence of physical injuryOutcome: Adequate for discharge 95835-3Dlxc of care ioqvMY3776-71-65D40:52:00Plan of care noteTXT1.2.840.139551.1.13.104.2. 7.2.079951|[id number] for patient [id number] 462XHBTIOQYKSBATOKJZIRHAM8133-04- 26T10:52:001.2.840.179067.1.72.3. 15|1.2.840.714311.1.13.104.2.7.2. [id number] [facility] 2023-02-15 23:47:29 bcYqW1BHH3pY0H5f/xsd AzY1bWizNPi8j 5vo4koNIbWgyd3Kg6UCDYYuFsC2a1ef73 13-02-25T23:47:29 Problem: Discharge PlanningGoal: Adequate for dischargeOutcome: Progressing as expected Problem: Falls, Risk ofGoal: Absence of fallsOutcome: Progressing as expected Problem: Mental Status - Impaired, Risk ofGoal: Mental status restored to baselineOutcome: Progressing as expectedGoal: Absence of physical injuryOutcome: Progressing as expected 68082-0Dcbe of care muyqTC6079-21-81N97:47:35Plan of care noteTXT1.2.840.443786.1.13.104.2. 7.2.773862|[id number] for patient [id number] Jose [id number] 157JXLSUDZBPBVMPQICOIDZWE7211-07- 25T23:47:351.2.840.131977.1.72.3. 15|1.2.840.578021.1.13.104.2.7.2. [id number] Allyndaphne Saucedo RN [facility] 2023-02-15 12:33:10 10p5EjIhXJjfEkjGY4zu oyx42MrVxemKX wD7iPrHT2O/rvvT2zCVk2hrPXYDEguJ81 13-02-25T12:33:10 Problem: Discharge PlanningGoal: Adequate for dischargeOutcome: Progressing as expected Problem: Falls, Risk ofGoal: Absence of fallsOutcome: Progressing as expected Problem: Mental Status - Impaired, Risk ofGoal: Mental status restored to baselineOutcome: Progressing as expectedGoal: Absence of physical injuryOutcome: Progressing as expected 15941-4Subw of care jywyJF5723-50-09Z92:33:15Plan of care noteTXT1.2.840.384118.1.13.104.2. 7.2.692618|[id number] for patient [address] Hv[id number] 989TUTUAJSWCQUTUGIUYAQGUW8659-53- 25T12:33:151.2.840.020524.1.72.3. 15|1.2.840.078443.1.13.104.2.7.2. [id number] [facility] 2023-02-14 05:48:59 qRBGyjyxYiam0iSRcisU 3Scij2YUJRD2X /R5Em4TwGu/j29QZ+fvLnYSpKwvFO+L20 14-02-24T05:48:59 Problem: Discharge PlanningGoal: Adequate for dischargeOutcome: Progressing as expected Problem: Falls, Risk ofGoal: Absence of fallsOutcome: Progressing as expected Problem: Mental Status - Impaired, Risk ofGoal: Mental status restored to baselineOutcome: Progressing as expectedGoal: Absence of physical injuryOutcome: Progressing as expected 92861-0Tulc of care ktvnXO5874-71-02X17:49:02Plan of care noteTXT1.2.840.818781.1.13.104.2. 7.2.563447|[id number] for patient [address] Au[id number] 461KELVUNDOURJOZRDHHIVLPQ5800-72- 24T05:49:021.2.840.465569.1.72.3. 15|1.2.840.212624.1.13.104.2.7.2. [id number] [facility]
--- NOTE | 2023-09-06 22:34 | RAD REPORT ---
[facility]07 [facility] CLINICAL HISTORY: CHEST PAIN COMPARISON: Chest Single View dated 08/22/2023; Chest Single View dated 02/13/2023; Chest Single View dated 10/25/2022; Chest Single View dated 11/12/2020 TECHNIQUE: Portable AP view of the chest. FINDINGS: Elevation of the right hemidiaphragm. Central interstitial prominence. Patchy left mid to lower lung airspace opacities. No pneumothorax or effusion. The cardiomediastinal contours are unrem arkable. IMPRESSION: Central interstitial prominence which may represent central congestion. More extensive l eft mid to lower lung airspace opacities could reflect atelectasis or superimposed pneumonia.
[2023-09-06 23:23] LABS: Protime INR 1.17
[2023-09-06 23:25] LABS: Absolute Lymphocytes (CBC) 0.9 K/uL (0.7-4.9); Hematocrit 34.6 % (39.6-49.0); Lymphocytes % 13.9 % (15.3-44.8); MCV 87.4 fL (80-100); MPV 7.9 fL (7.6-11.3); Platelets 197 thou/uL (152-406); RBC Red Blood Cell Count 3.96 M/uL (4.33-5.43)
[2023-09-06 23:33] LABS: SARS-CoV-2 Antigen Rapid Res Negative (Negative)
[2023-09-06 23:35] LABS: Albumin 3.1 g/dL (3.4-5.0); Bilirubin Direct 0.1 mg/dL (0-0.2); Bilirubin Indirect, Calculated 0.2 mg/dL (0.2-0.8); Bilirubin Total 0.3 mg/dL (0.2-1.0); Magnesium 1.6 mg/dL (1.6-2.4); Potassium 3.2 mEq/L (3.5-5.1); Protein, Total 6.4 g/dL (6.4-8.2); Troponin High Sensitivity 6.2 pg/mL (<58.9); Valproic Acid (Depakene) Level 90.6 mcg/mL (50.0-100.0)
[2023-09-07 01:04] LABS: Blood Morphology Comment NOT SEEN (NOT SEEN); Platelet Estimate ADEQ
--- NOTE | 2023-09-07 01:44 | EDPHYS ---
Physician Documentation [facility] Name: iMke Francis III Age: 48 yrs Sex: Male : 1975 Arrival Date: 09/06/2023 Time: 21:21 Bed 20 Private MD: ED Physician Noel Miranda HPI: 09/06 21:36 This 48 yrs old Black Male presents to ER via Unassigned with complaints of Seizure, sp4 Fever. 21:37 Allergies: Keppra; SHELLFISH PMHx: Mild Heart Attack x 2; brain lesions/swelling of the sp4 brain; Diabetes - NIDDM; High Cholesterol; Hypertension PSHx: brain surgery (January 2022); Appendectomy; . 09/07 00:07 48-year-old male with history of prior brain biopsy, history of seizure disorder, sp4 history of diabetes, history of depression, on lacosamide, Depakote, gabapentin Primary Neurologist Dr. Azalia Ya with [facility], presents with EMS after acute seizure at home seizure started at 8 PM, and continued until EMS administered 2 mg intramuscular Ativan plus IV Ativan 2 mg as well. Patient also reportedly had a fever 99.9 by EMS. He was given IV Tylenol 1 g. Patient's significant other states patient commonly gets fever when he has seizures. . Historical: - Allergies: 09/06 21:51 Keppra; tl4 21:51 SHELLFISH; tl4 - Home Meds: 21:51 amlodipine 10 mg tab 1 tab once daily [Active]; atorvastatin oral [Active]; carvedilol tl4 25 mg Oral tab 1 tab 2 times per day [Active]; divalproex 1750 mg Oral Tablet twice a day [Active]; ferrous sulfate 325 mg (65 mg iron) Oral tablet daily [Active]; fluticasone propionate inhalation [Active]; gabapentin 300 mg Oral capsule 3 times per day [Active]; glyburide 5 mg Oral tablet 2 times per day [Active]; hydralazine 25 mg Oral tablet 4 times per day [Active]; hydroxyzine HCl 10 mg Oral tablet as needed for Anxiety [Active]; lacosamide oral [Active]; lisinopril 40 mg Oral tablet daily [Active]; metformin 1 Oral Tablet 2 times per day [Active]; multivitamin Oral tablet daily [Active]; Potassium Chloride Oral [Active]; risperidone 1 mg/mL Oral solution 2 times per day [Active]; pantoprazole oral [Active]; - PMHx: 21:51 brain lesions/swelling of the brain; Diabetes - NIDDM; High Cholesterol; Hypertension; tl4 Mild Heart Attack x 2; - PSHx: 21:51 Appendectomy; brain surgery (January 2022); tl4 - Immunization history:: Adult Immunizations unknown. - Social history:: Smoking status: Patient denies any tobacco usage or history of. - Family history:: not pertinent. ROS: 09/07 00:07 Constitutional: Negative for fever, chills, and weight loss, positive for seizure, sp4 positive fever All other systems are negative, Exam: 00:07 Constitutional: This is a well developed, well nourished patient who is awake, alert, sp4 somnolent secondary to Ativan. Head/Face: Normocephalic, atraumatic. Eyes: Pupils equal round and reactive to light, extra-ocular motions intact. Lids and lashes normal. Conjunctiva and sclera are not injected. Cornea within normal limits. Periorbital areas with no swelling, redness, or edema. ENT: Nares patent. No nasal discharge, no septal abnormalities noted. Tympanic membranes are normal and external auditory canals are clear. Oropharynx with no redness, swelling, or masses, exudates, or evidence of obstruction, uvula midline. Mucous membranes moist. Neck: Trachea midline, no thyromegaly or masses palpated, and no cervical lymphadenopathy. Supple, full range of motion without nuchal rigidity, or vertebral point tenderness. Chest/axilla: Normal chest wall appearance and motion. Nontender with no deformity. No lesions are appreciated. Cardiovascular: Regular rate and rhythm with a normal S1 and S2. No gallops, murmurs, or rubs. Normal PMI, no JVD. No pulse deficits. Respiratory: Lungs have equal breath sounds bilaterally, clear to auscultation and percussion. No rales, rhonchi or wheezes noted. No increased work of breathing, no retractions or nasal flaring. Abdomen/GI: Soft, with normal bowel sounds. No distension or tympany. No guarding or rebound. No evidence of tenderness throughout. Back: No spinal tenderness. No costovertebral tenderness. Skin: Warm, dry with normal turgor. Normal color with no rashes, no lesions, and no evidence of cellulitis. MS/ Extremity: Pulses equal, no cyanosis. Neurovascular intact. Full, normal range of motion. Neuro: Awake and alert, GCS 15, oriented to person, place, time, and situation. Cranial nerves II-XII grossly intact. Motor strength 5/5 in all extremities. Sensory grossly intact. Psych: Awake, alert, with orientation to person, place and time. Behavior, mood, and affect are within normal limits 01:47 ECG was reviewed by the Attending Physician. EKG at 2210 --normal sinus rhythm with a sp4 rate of 92, Vital Signs: 09/06 21:31 BP 167 / 104; Pulse 95; Resp 18; Temp 100.8(O); Pulse Ox 97% on R/A; Weight 135.17 kg; oe Height 6 ft. 5 in. ; 22:02 BP 160 / 105; Pulse 88; Resp 21; Pulse Ox 97% on R/A; tl4 09/07 00:00 BP 136 / 89; Pulse 86; Resp 19 S; Pulse Ox 99% on R/A; jw7 01:00 BP 151 / 94; Pulse 84; Resp 20 S; Pulse Ox 99% on R/A; jw7 02:00 BP 158 / 99; Pulse 81; Resp 20 S; Pulse Ox 98% on R/A; jw7 03:00 BP 156 / 95; Pulse 83; Resp 19 S; Pulse Ox 97% on R/A; jw7 09/06 21:31 Body Mass Index 35.34 (135.17 kg, 195.58 cm) oe NIH Stroke Scale Scores: 01:47 NIHSS Score: 0 sp4 [place] Coma Score: 09/06 22:00 Eye Response: to voice(3). Motor Response: obeys commands(6). Verbal Response: tl4 inappropriate words(3). Total: 12. 09/07 01:47 Eye Response: spontaneous(4). Motor Response: obeys commands(6). Verbal Response: sp4 oriented(5). Total: 15. MDM: 09/06 23:00 Patient medically screened. sp4 09/07 00:07 ED course: EXAM DESCRIPTION: Head C Spine Mpr Wo Con CLINICAL HISTORY: 48 years Male sp4 head lesions COMPARISON: August 22, 2023 TECHNIQUE: Images were obtained in axial, sagittal, and coronal planes. This exam was performed according to our departmental dose-optimization program which includes use of Automated Exposure Control, adjustment of the mA and/or kV according to patient size and/or use of iterative reconstruction technique. FINDINGS: CT brain: Moderate ventricular enlargement. Moderate prominence of the cortical sulci. No abnormal areas of increased attenuation is seen. No extra-axial fluid collections noted. Prior right frontal craniotomy. No evidence for skull fracture. Symmetric aeration of mastoid air cells bilaterally. Unremarkable paranasal sinuses. CT cervical spine: Height of the vertebral bodies is intact. Erosive change vertebral endplates C5-6 level unchanged. Marked anterior osteophyte formation C5-6 and C6-7 levels. Marginal spur formation with mild neural foraminal narrowing bilaterally multiple levels. Intact odontoid and predental's rocael. Prevertebral soft tissues appear normal. Intact C1. Posterior elements intact all levels. Intact occipital condyles. No abnormality lung apices bilaterally. No focal disc protrusion. IMPRESSION: 1. No acute intracranial abnormality. No evidence for hemorrhage, mass lesion, or large acute infarction. 2. No acute fracture or subluxation involving the cervical spine. Moderately severe multilevel osteoarthritic change. . ED course: EXAM DESCRIPTION: [facility] Single View09/06/2023 10:07 pm CLINICAL HISTORY: CHEST PAIN COMPARISON: Chest Single View dated 08/22/2023; Chest Single View dated 02/13/2023; Chest Single View dated 10/25/2022; Chest Single View dated 11/12/2020 TECHNIQUE: Portable AP view of the chest. FINDINGS: Elevation of the right hemidiaphragm. Central interstitial prominence. Patchy left mid to lower lung airspace opacities. No pneumothorax or effusion. The cardiomediastinal contours are unremarkable. IMPRESSION: Central interstitial prominence which may represent central congestion. More extensive left mid to lower lung airspace opacities could reflect atelectasis or superimposed pneumonia. . 01:42 Differential diagnosis: drug overdose, cardiac arrhythmia, seizure, TIA. Data reviewed: sp4 vital signs, nurses notes, EMS record, old medical records, lab test result(s), EKG, radiologic studies, CT scan, plain films. Consideration of Admission/Observation Escalation of care including admission/observation considered. ED course: stable for discharge home with Zithromax PO . 01:46 ED course: Patient this time is stable for discharge home. Will advise for patient to [facility] continue all his standard medications for his seizure disorder including lacosamide, Depakote, gabapentin. 09/06 21:38 Order name: Basic Metabolic Panel; Complete Time: 00:05 [facility] 09/06 21:38 Order name: CBC with Diff [facility] 09/06 21:38 Order name: LFT's; Complete Time: 00:05 [facility] 09/06 21:38 Order name: Magnesium; Complete Time: 00:05 [facility] 09/06 21:38 Order name: NT PRO-BNP; Complete Time: 00:05 [facility] 09/06 21:38 Order name: PT-INR; Complete Time: 00:05 [facility] 09/06 21:38 Order name: Troponin HS; Complete Time: 00:05 [facility] 09/06 21:38 Order name: SARS RAPID; Complete Time: 00:05 [facility] 09/06 21:38 Order name: Influenza Screen (a \T\ B); Complete Time: 00:05 [facility] 09/06 21:57 Order name: Blood Culture Adult (2) [facility] 09/06 23:15 Order name: Valproic Acid (Depakene) Level; Complete Time: 00:05 [facility] 09/06 23:33 Order name: Manual Differential MS 09/06 21:38 Order name: XRAY Chest (1 view); Complete Time: 00:05 [facility] 09/06 21:57 Order name: CT Head C Spine [facility] 09/06 21:38 Order name: EKG; Complete Time: 21:38 [facility] 09/06 21:38 Order name: Cardiac monitoring; Complete Time: 22: [facility] 09/06 21:38 Order name: EKG - Nurse/Tech; Complete Time: 23: [facility] 09/06 21:38 Order name: IV Saline Lock; Complete Time: 23: [facility] 09/06 21:38 Order name: Labs collected and sent; Complete Time: 23: [facility] 09/06 21:38 Order name: O2 Per Protocol; Complete Time: 22: [facility] 09/06 21:38 Order name: O2 Sat Monitoring; Complete Time: 22: [facility] EC:47 Rate is 92 beats/min. Rhythm is regular, Normal Sinus Rhythm. QRS [place] is Normal. [place] sp4 interval is normal. QRS interval is normal. QT interval is normal. No Q waves. T waves are Normal. No ST changes noted. Clinical impression: Normal ECG. Interpreted by me. Reviewed by me. Administered Medications: 09/06 23:32 Drug: NS 0.9% IV 1000 ml IV at 125 ml/hr continuous Route: IV; Rate: 125 ml/hr; Site: hb right wrist; 09/07 03:05 Follow up: Response: No adverse reaction; IV Status: Completed infusion; IV Intake: jw7 1000ml 00:28 Not Given (Other Intervention Used): rjqacolprtbr383 mg PO once jb4 00:52 Drug: Rocephin - Rocephin (cefTRIAXone) IVPB 1 grams IVPB once over 30 mins; (mix in 50 jw7 mL NS) Route: IVPB; Infused Over: 30 mins; Site: right wrist; 03:05 Follow up: Response: No adverse reaction; IV Status: Completed infusion; IV Intake: 49rkze6 01:26 Drug: AZITHromycin IVPB 500 mg IVPB once over 1 hrs; (mix in 250 mL NS) Route: IVPB; jw7 Infused Over: 1 hrs; Site: right wrist; 03:05 Follow up: Response: No adverse reaction; IV Status: Completed infusion; IV Intake: jw7 250ml Disposition Summary: 09/07/23 01:44 Discharge Ordered Problem: new sp4 Symptoms: have improved sp4 Condition: Stable sp4 Diagnosis - Other seizures sp4 - Breakthrough seizure, history of epilepsy, acute pneumonia, acute febrile illness sp4 Followup: sp4 - With: Private Physician - When: 7 - 10 days - Reason: Recheck today's complaints Discharge Instructions: - Discharge Summary Sheet sp4 - Community-Acquired Pneumonia, Adult, Kwkm-to-Eemc sp4 Forms: - Patient Portal Instructions sp4 Prescriptions: - Ibuprofen 800 mg Oral Tablet - take 1 tablet ORAL route every 8 hours As needed take with food; 30 tablet; sp4 Refills: 0, Product Selection Permitted - Zithromax Z-Jaxon 250 mg Oral Tablet - take 1 tablet ORAL route as directed for 5 days Day 1 - take two (2) tablets sp4 one time. Day 2, 3, 4 , 5 take one (1) tablet once daily.; 6 tablet; Refills: 0, Product Selection Permitted NIH Stroke Scale - NIH Stroke Score Date: 09/07/2023 Time: 01:47 Total Score = 0 10. Dysarthria (speech clarity - read or repeat words) - 0(Normal) 11. Extinction and Inattention (visual/tactile/auditory/spatial/personal) - 0(No abnormality) 1a. Level of Consciousness (LOC) - 0(Alert) 1b. Level of Consciousness (LOC) (Month \T\ Age) - 0(Both) 1c. LOC Commands (Open \T\ Closes Eyes/Garment Patternmaker) - 0(Both) 2. Best Gaze (Lateral Gaze Paresis) - 0(Normal) 3. Visual Field Loss - 0(No visual loss) 4. Facial Palsy - 0(Normal) 5a. Left Arm: Motor (10-second hold) - 0(No drift) 5b. Right Arm: Motor (10-second hold) - 0(No drift) 6a. Left Leg: Motor (5-second hold - always test supine) - 0(No drift) 6b. Right Leg: Motor (5-second hold - always test supine) - 0(No drift) 7. Limb Ataxia (finger/nose \T\ heel/mendez - test with eyes open) - 0(Absent) 8. Sensory Loss (pinprick arms/legs/face) - 0(Normal) 9. Best Language: Aphasia (description/naming/reading) - 0(No aphasia) Initials: sp4 Signatures: Dispatcher [employer] EDMS Joan Cruz RN RN John Hernandez RN RN jb4 Miranda Jacobo, RN AD martinez7 Noel Miranda MD MD sp4 Keon Walton RN RN tl4 Corrections: (The following items were deleted from the chart) 09/06 23:15 21:57 VALPROIC ACID (DEPAKOTE)+C.LAB.BRZ ordered. EDMS EDMS
--- NOTE | 2023-09-07 01:44 | ER ---
Nurse's Notes [facility] Name: Mike Francis III Age: 48 yrs Sex: Male : 1975 Arrival Date: 09/06/2023 Time: 21:21 Bed 20 Private MD: Diagnosis: Other seizures;Breakthrough seizure, history of epilepsy, acute pneumonia, acute febrile illness Presentation: 09/06 21:57 Chief complaint: Spouse and/or significant other states: reports patient had a tl4 seizure. Pt also has fever. states pt has frequent seizures. Pt unable to communicate any complaints. Coronavirus screen: fever. Ebola Screen: No symptoms or risks identified at this time. Initial Sepsis Screen: Does the patient meet any 2 criteria? No. Patient's initial sepsis screen is negative. Does the patient have a suspected source of infection? No. Patient's initial sepsis screen is negative. Risk Assessment: Do you want to hurt yourself or someone else? Patient reports no desire to harm self or others. Onset of symptoms was September 06, 2023 at 20:00. 21:57 Method Of Arrival: EMS: [facility] tl4 21:57 Acuity: IFEANYI 2 tl4 Triage Assessment: 22:00 General: Appears in no apparent distress. Behavior is drowsy. Pain: Denies pain. EENT: tl4 No deficits noted. No signs and/or symptoms were reported regarding the EENT system. Neuro: Level of Consciousness is lethargic, Oriented to person, Facial symmetry appears normal, Seizure activity reported prior to arrival. Patient is post-ictal at this time. Cardiovascular: No deficits noted. Respiratory: No deficits noted. Breath sounds are clear bilaterally. GI: No deficits noted. No signs and/or symptoms were reported involving the gastrointestinal system. : No deficits noted. No signs and/or symptoms were reported regarding the genitourinary system. Derm: No deficits noted. No signs and/or symptoms reported regarding the dermatologic system. Historical: - Allergies: 21:51 Keppra; tl4 21:51 SHELLFISH; tl4 - Home Meds: 21:51 amlodipine 10 mg tab 1 tab once daily [Active]; atorvastatin oral [Active]; carvedilol tl4 25 mg Oral tab 1 tab 2 times per day [Active]; divalproex 1750 mg Oral Tablet twice a day [Active]; ferrous sulfate 325 mg (65 mg iron) Oral tablet daily [Active]; fluticasone propionate inhalation [Active]; gabapentin 300 mg Oral capsule 3 times per day [Active]; glyburide 5 mg Oral tablet 2 times per day [Active]; hydralazine 25 mg Oral tablet 4 times per day [Active]; hydroxyzine HCl 10 mg Oral tablet as needed for Anxiety [Active]; lacosamide oral [Active]; lisinopril 40 mg Oral tablet daily [Active]; metformin 1 Oral Tablet 2 times per day [Active]; multivitamin Oral tablet daily [Active]; Potassium Chloride Oral [Active]; risperidone 1 mg/mL Oral solution 2 times per day [Active]; pantoprazole oral [Active]; - PMHx: 21:51 brain lesions/swelling of the brain; Diabetes - NIDDM; High Cholesterol; Hypertension; tl4 Mild Heart Attack x 2; - PSHx: 21:51 Appendectomy; brain surgery (January 2022); tl4 - Immunization history:: Adult Immunizations unknown. - Social history:: Smoking status: Patient denies any tobacco usage or history of. - Family history:: not pertinent. Screenin:03 [facility] ED Fall Risk Assessment (Adult) History of falling in the last 3 months, tl4 including since admission No falls in past 3 months (0 pts) Confusion or Disorientation No (0 pts) Intoxicated or Sedated No (0 pts) Impaired Gait No (0 pts) Mobility Assist Device Used No (0 pt) Altered Elimination No (0 pt) Score/Fall Risk Level 0 - 2 = Low Risk. Abuse screen: Denies threats or abuse. Denies injuries from another. Nutritional screening: No deficits noted. Tuberculosis screening: No symptoms or risk factors identified. Assessment: 22:02 Reassessment: No changes from previously documented assessment. Patient and/or family tl4 updated on plan of care and expected duration. Pain level reassessed. pt remains postictal. reports pt normally has prolonged postictal state. 23:33 Reassessment: Patient appears in no apparent distress at this time. No changes from hb previously documented assessment. Patient and/or family updated on plan of care and expected duration. Pain level reassessed. 09/07 00:30 Reassessment: Patient appears in no apparent distress at this time. No changes from jw7 previously documented assessment. Patient and/or family updated on plan of care and expected duration. Pain level reassessed. 01:26 Reassessment: Patient appears in no apparent distress at this time. No changes from jw7 previously documented assessment. Patient and/or family updated on plan of care and expected duration. Pain level reassessed. 01:45 General: DISCHARGE PENDING COMPLETION OF IV ABX TREATMENT. jw7 03:02 Reassessment: Patient appears in no apparent distress at this time. No changes from 7 previously documented assessment. Patient and/or family updated on plan of care and expected duration. Pain level reassessed. Vital Signs: 09/06 21:31 BP 167 / 104; Pulse 95; Resp 18; Temp 100.8(O); Pulse Ox 97% on R/A; Weight 135.17 kg; oe Height 6 ft. 5 in. ; 22:02 BP 160 / 105; Pulse 88; Resp 21; Pulse Ox 97% on R/A; tl4 09/07 00:00 BP 136 / 89; Pulse 86; Resp 19 S; Pulse Ox 99% on R/A; jw7 01:00 BP 151 / 94; Pulse 84; Resp 20 S; Pulse Ox 99% on R/A; jw7 02:00 BP 158 / 99; Pulse 81; Resp 20 S; Pulse Ox 98% on R/A; jw7 03:00 BP 156 / 95; Pulse 83; Resp 19 S; Pulse Ox 97% on R/A; jw7 09/06 21:31 Body Mass Index 35.34 (135.17 kg, 195.58 cm) oe Pablo Coma Score: 09/06 22:00 Eye Response: to voice(3). Motor Response: obeys commands(6). Verbal Response: tl4 inappropriate words(3). Total: 12. 09/07 01:47 Eye Response: spontaneous(4). Motor Response: obeys commands(6). Verbal Response: sp4 oriented(5). Total: 15. NIH Stroke Scale Scores: 01:47 NIHSS Score: 0 sp4 ED Course: 09/06 21:25 Patient arrived in ED. wm 21:36 Neol Miranda MD is Attending Physician. sp4 21:49 Keon Walton RN is Primary Nurse. tl4 22:00 Triage completed. tl4 22:01 Arm band placed on Patient placed in an exam room, on a stretcher. tl4 22:08 XRAY Chest (1 view) In Process Unspecified. EDMS 22:13 Maintain EMS IV. Dressing intact. Good blood return noted. Site clean \T\ dry. Gauge \T\ tl 4 site: 22g left hand. 23:03 Inserted saline lock: 22 gauge in right hand, using aseptic technique. Blood collected. bp 23:07 SARS RAPID Sent. hb 23:07 Influenza Screen (a \T\ B) Sent. hb 23:08 Basic Metabolic Panel Sent. hb 23:08 CBC with Diff Sent. hb 23:08 LFT's Sent. hb 23:08 Magnesium Sent. hb 23:08 NT PRO-BNP Sent. hb 23:08 PT-INR Sent. hb 23:08 Troponin HS Sent. hb 23:08 Blood Culture Adult (2) Sent. hb 23:21 CT Head C Spine In Process Unspecified. EDMS 02 00:00 Patient has correct armband on for positive identification. Bed in low position. Call jw7 light in reach. Side rails up X2. Seizure precautions initiated. 00:53 No provider procedures requiring assistance completed. jw7 03:04 Provided Education on: Discharge instructions and medication usage. jw7 03:04 IV discontinued, intact, bleeding controlled, No redness/swelling at site. Pressure jw7 dressing applied. Administered Medications: 09/06 23:32 Drug: NS 0.9% IV 1000 ml IV at 125 ml/hr continuous Route: IV; Rate: 125 ml/hr; Site: right wrist; 09/07 03:05 Follow up: Response: No adverse reaction; IV Status: Completed infusion; IV Intake: jw7 1000ml 00:28 Not Given (Other Intervention Used): [id number] mg PO once jb4 00:52 Drug: Rocephin - Rocephin (cefTRIAXone) IVPB 1 grams IVPB once over 30 mins; (mix in 50 jw7 mL NS) Route: IVPB; Infused Over: 30 mins; Site: right wrist; 03:05 Follow up: Response: No adverse reaction; IV Status: Completed infusion; IV Intake: [id number] 01:26 Drug: AZITHromycin IVPB 500 mg IVPB once over 1 hrs; (mix in 250 mL NS) Route: IVPB; jw7 Infused Over: 1 hrs; Site: right wrist; 03:05 Follow up: Response: No adverse reaction; IV Status: Completed infusion; IV Intake: jw7 250ml Medication: 00:53 VIS not applicable for this client. jw7 Intake: 03:05 IV: 250ml; Total: 250ml. jw7 03:05 IV: 50ml; Total: 300ml. jw7 03:05 IV: 1000ml; Total: 1300ml. jw7 Outcome: :44 Discharge ordered by MD. latham 03:04 Discharged to home via wheelchair, with family, jw7 03:04 Condition: stable 03:04 Discharge instructions given to patient, family, Instructed on discharge instructions, follow up and referral plans. medication usage, Demonstrated understanding of instructions, follow-up care, medications, Prescriptions given X 2, 03:06 Patient left the ED. jw7 NIH Stroke Scale - NIH Stroke Score Date: 09/07/2023 Time: 01:47 Total Score = 0 10. Dysarthria (speech clarity - read or repeat words) - 0(Normal) 11. Extinction and Inattention (visual/tactile/auditory/spatial/personal) - 0(No abnormality) 1a. Level of Consciousness (LOC) - 0(Alert) 1b. Level of Consciousness (LOC) (Month \T\ Age) - 0(Both) 1c. LOC Commands (Open \T\ Closes Eyes/Medical Imaging Technologist) - 0(Both) 2. Best Gaze (Lateral Gaze Paresis) - 0(Normal) 3. Visual Field Loss - 0(No visual loss) 4. Facial Palsy - 0(Normal) 5a. Left Arm: Motor (10-second hold) - 0(No drift) 5b. Right Arm: Motor (10-second hold) - 0(No drift) 6a. Left Leg: Motor (5-second hold - always test supine) - 0(No drift) 6b. Right Leg: Motor (5-second hold - always test supine) - 0(No drift) 7. Limb Ataxia (finger/nose \T\ heel/mendez - test with eyes open) - 0(Absent) 8. Sensory Loss (pinprick arms/legs/face) - 0(Normal) 9. Best Language: Aphasia (description/naming/reading) - 0(No aphasia) Initials: sp4 Signatures: Dispatcher [employer] EDKY Joan Cruz RN RN hb Espinosa, Orlando oe Peltier, Marlon, RN RN bp Lena Singh Jodi, AD RN jw7 Noel Miranda MD MD sp4 eKon Walton RN RN tl4 John Hernandez RN jb4 Corrections: (The following items were deleted from the chart) 09/06 23:15 23:07 VALPROIC ACID (DEPAKOTE)+[id number].BRZ drawn and sent. EDMS
[2023-09-07 03:19] VITALS: BP 156/95; TEMP 100.8; O2SAT 97
--- NOTE | 2023-09-07 11:41 | RAD REPORT ---
EXAM DESCRIPTION: CT - Head C Spine Mpr Wo Con - 09/07/2023 6:41 am CLINICAL HISTORY: 48 years Male head lesions COMPARISON: August 22, 2023 TECHNIQUE: Images were obtained in axial, sagittal, and coronal planes. This exam was performed according to our departmental dose-optimization program which includes use of Automated Exposure Control, adjustment of the mA and/or kV according to patient size and/or use of iterative reconstruction technique. FINDINGS: CT brain: Moderate ventricular enlargement. Moderate prominence of the cortical sulci. No abnormal areas of increased attenuation is seen. No extra-axial fluid collections noted. Prior right frontal craniotomy. No evidence for skull fracture. Symmetric aeration of mastoid air cells bilateral ly. Unremarkable paranasal sinuses. CT cervical spine: Height of the vertebral bodies is intact. Erosive change vertebral endplates C5-6 level unchanged. Marked anterior osteophyte formation C5-6 and C6-7 levels. Marginal spur formation w ith mild neural foraminal narrowing bilaterally multiple levels. Intact odontoid and predental's rocael. Prevertebral soft tissues appear normal. Intact C1. Posterior elements intact all levels. Intact occ ipital condyles. No abnormality lung apices bilaterally. No focal disc protrusion. IMPRESSION: 1. No acute intracranial abnormality. No evidence for hemorrhage, mass lesion, or larg e acute infarction. 2. No acute fracture or subluxation involving the cervical spine. Moderately severe multilevel oste oarthritic change. Electronically signed by: Amber Becerra MD 09/06/2023 11:40 PM STATION JAILER Due to temporary technical issues with the PACS/Fluency reporting system, reports are being signed by the in house radiologists without review as a courtesy to insure prompt reporting. The interpreting radiologist is fully responsible for the content of the report.
== END ==
LOC: ER 21:21
DX: G40.509 Epileptic seizures related to external causes, not intractable, without status epilepticus (principal); G40.89 Other seizures; J18.9 Pneumonia, unspecified organism; R50.9 Fever, unspecified; E11.9 Type 2 diabetes mellitus without complications; I10 Essential (primary) hypertension; Z11.52 Encounter for screening for COVID-19; Z88.8 Allergy status to other drugs, medicaments and biological substances; Z91.013 Allergy to seafood
CPT/HCPCS: 87040 ×2; 85025; 80048; 36415; 83735; 85610; 80076; 80164; 84484; 83880; 87804 ×2; 70450; 72125; 71045; 87811; J7030; 93005

== ENCOUNTER 2023-12-02 23:35 | Emergency (ER) | payer OTHER ==
--- OUTSIDE RECORDS SUMMARY | 2023-12-02 23:43 | XMS REPORT | Continuity of Care Document ---
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 25 mg 02-14 11:00: 00 Yes 25mg 25 mg, Oral, Q6H, First dose on Tue02/14/23 at 0600, Until Discontinu ed, Routine [facility] hydrOXYzine (ATARAX) tablet 10 mg 02-14 06:26: 00 Yes 10mg 10 mg, Oral, Q6HPRN, Starting on Tue02/14/23 at 0126, Until Discontinu ed, Routine, Itching [facility] diphenhydrA MINE (BENADRYL) tablet 25 mg 02-14 06:25: 45 Yes 25mg 25 mg, Oral, PRN, Starting on Tue02/14/23 at 0125, Until Discontinu ed, Routine, Itching [facility] acetaminoph en (TYLENOL) tablet 650 mg 02-14 06:25: 39 Yes 650mg 650 mg, Oral, PRN, Starting on Tue02/14/23 at 0125, Until Discontinu ed, Routine, Before infusion [facility] acetaminoph en (TYLENOL) tablet 650 mg 02-14 05:22: 22 Yes 650mg 650 mg, Oral, Q6HPRN, Starting on Tue02/14/23 at 0022, Until Discontinu ed, Routine, Temp > 38 C [facility] omega-3s-dh a-epa-fish oil-D3 (FISH OIL-VIT D3) 360 mg-1,200 mg -1,000 unit Cap 01-31 15:09: 07 Yes Take by mouth. [facility] MULTIVITS-M INERALS/FA/ LYCOPENE (ONE-A-DAY MEN'S MULTIVITAMI N ORAL) 01-31 15:09: 07 Yes Take by mouth. [facility] atorvastati n 20 mg tablet 01-31 00:00: 00 Yes [id number] 20mg Take 1 tablet by mouth at bedtime. [facility] hydrALAZINE 25 mg tablet 01-31 00:00: 00 Yes [id number] 25mg Take 1 tablet by mouth every 6 (six) hours. [facility] glyBURIDE 5 mg tablet 01-31 00:00: 00 Yes [id number] 5mg Take 1 tablet by mouth daily with breakfast. [facility] metFORMIN 1,000 mg tablet 01-31 00:00: 00 Yes [id number] 1000mg Take 1 tablet by mouth in the morning and 1 tablet in the evening. Take with meals. [facility] gabapentin 300 mg capsule 01-31 00:00: 00 Yes [id number] 300mg Take 1 capsule by mouth in the morning and 1 capsule at noon and 1 capsule in the evening. [facility] lisinopriL 40 mg tablet 01-31 00:00: 00 Yes [id number] 40mg Take 1 tablet by mouth in the morning. [facility] riTUXimab (RITUXAN) 1,000 mg in NaCl 0.9% (NS) 1,000 mL infusion 12-01 17:00: 00 12-01 20:21 :00 No [id number] 1000mg 1,000 mg, IV Infusion, ONCE, On [...] d 30 minutes prior to each infusion. [place] medical management (e.g., glucocorti coids, epinephrin e, [...] occur in patients receiving Rituximab. &nbs p;
[facility] acetaminoph en (TYLENOL) tablet 650 mg 12-01 14:15: 00 12-01 14:06 :00 No [id number] 650mg 650 mg, Oral, ONCE, 1 dose, On Tue12/01/22 at 0915, Routine [facility] diphenhydrA MINE (BENADRYL) tablet 25 mg 12-01 14:15: 00 12-01 14:06 :00 No [id number] 25mg 25 mg, Oral, ONCE, 1 dose, On Tue12/01/22 at 0915, Routine [facility] glyBURIDE 5 mg tablet 11-17 00:00: 00 Yes [id number] 5mg Take 1 tablet by mouth daily with breakfast. [facility] fluticasone propionate (FLONASE ALLERGY RELIEF) 50 mcg/actuati on nasal spray 11-17 00:00: 00 Yes [id number] 1{spray } Use 1 [place] in each nostril in the morning and 1 [place] in the evening. [facility] omega-3s-dh a-epa-fish oil-D3 (FISH OIL-VIT D3) 360 mg-1,200 mg -1,000 unit Cap 10-26 15:16: 05 Yes Take by mouth. [facility] MULTIVITS-M INERALS/FA/ LYCOPENE (ONE-A-DAY MEN'S MULTIVITAMI N ORAL) 10-26 15:16: 05 Yes Take by mouth. [facility] pantoprazol e (PROTONIX) EC tablet 40 mg 10-26 14:00: 00 Yes 40mg 40 mg, Oral, DAILY, First dose on Tue10/26/22 at 0900, Until Discontinu ed, Routine [facility] lisinopriL (PRINIVIL,Z ESTRIL) tablet 40 mg 10-26 14:00: 00 Yes 40mg 40 mg, Oral, DAILY, First dose on Tue10/26/22 at 0900, Until Discontinu ed [facility] amLODIPine (NORVASC) tablet 10 mg 10-26 14:00: 00 Yes 10mg 10 mg, Oral, DAILY, First dose on Tue10/26/22 at 0900, Until Discontinu ed, Routine [facility] atorvastati n (LIPITOR) tablet 20 mg 10-26 02:00: 00 Yes 20mg 20 mg, Oral, QHS, First dose on Tue10/25/22 at 2100, Until Discontinu ed, Routine [facility] heparin (porcine) injection 5,000 Units 10-26 01:00: 00 Yes 5000U 5,000 Units, Subcutaneo us, Q12H, First dose on Tue10/25/22 at 2000, Until Discontinu ed, Routine [facility] risperiDONE (RISPERDAL) tablet 1 mg 10-26 01:00: 00 Yes 1mg 1 mg, Oral, BID, First dose on Tue10/25/22 at 2000, Until Discontinu ed, Routine [facility] divalproex 250 mg EC tablet 10-26 00:00: 00 01-25 04:59 :00 No [id number] 1750mg Take 7 tablets by mouth every 12 (twelve) hours for 90 days. [facility] it[facility] carvediloL (COREG) tablet 25 mg 10-25 22:00: 00 Yes 25mg 25 mg, Oral, BID MEALS, First dose on Tue10/25/22 at 1700, Until Discontinu ed, Routine [facility] gabapentin (NEURONTIN) capsule 300 mg 10-25 19:00: 00 Yes 300mg 300 mg, Oral, TID, First dose on Tue10/25/22 at 1400, Until Discontinu ed, Routine [facility] Sliding Scale Insulin - Lispro (HumaLOG) + Fsbg Testing 10-25 17:00: 00 Yes Subcutaneo us, TID MEALS+HS, First dose on Tue10/25/22 at 1200, Until Discontinu ed, Routine [facility] hydrALAZINE (APRESOLINE ) tablet 25 mg 10-25 17:00: 00 Yes 25mg 25 mg, Oral, Q6H, First dose on Tue10/25/22 at 1200, Until Discontinu ed, Routine [facility] dextrose 10% (D10W) bolus infusion [...] blood glucose is < 80 mg/dL, repeat.
[facility] glucagon (GLUCAGEN DIAGNOSTIC KIT) injection 1 mg 10-25 15:51: 50 Yes 1mg 1 mg, Intramuscu lar, PRN, Starting on Tue10/25/22 at 1051, Until Discontinu ed, HENRY, Blood Glucose < or = 70 mg/dL and patient is NPO, unable to swallow or has mental changes. [facility] predniSONE (DELTASONE) tablet 5 mg 10-25 15:15: 00 Yes 5mg 5 mg, Oral, DAILY, First dose on Tue10/25/22 at 1015, Until Discontinu ed, Routine [facility] acetaminoph en (TYLENOL) tablet 650 mg 10-25 15:11: 20 Yes 650mg 650 mg, Oral, Q6HPRN, Starting on Tue10/25/22 at 1011, Until Discontinu ed, Routine, Pain (scale 4-6) [facility] docusate (COLACE) capsule 100 mg 10-25 15:11: 20 Yes 100mg 100 mg, Oral, QDAILYPRN, Starting on Tue10/25/22 at 1011, Until Discontinu ed, Routine, Constipati on [facility] hydrOXYzine (ATARAX) tablet 10 mg 10-25 15:10: 10 Yes 10mg 10 mg, Oral, Q6HPRN, Starting on Tue10/25/22 at 1010, Until Discontinu ed, Routine, Itching [facility] lisinopriL 40 mg tablet 08-17 00:00: 00 Yes [id number] 40mg Take 1 tablet by mouth in the morning. [facility] atorvastati n 20 mg tablet 08-17 00:00: 00 Yes [id number] 20mg Take 1 tablet by mouth at bedtime. [facility] gabapentin 300 mg capsule 08-17 00:00: 00 Yes [id number] 300mg Take 1 capsule by mouth in the morning and 1 capsule at noon and 1 capsule in the evening. [facility] hydrALAZINE 25 mg tablet 08-17 00:00: 00 Yes [id number] 25mg Take 1 tablet by mouth every 6 (six) hours. [facility] metFORMIN 1,000 mg tablet 08-17 00:00: 00 Yes [id number] 1000mg Take 1 tablet by mouth in the morning and 1 tablet in the evening. Take with meals. [facility] risperiDONE 1 mg tablet 08-17 00:00: 00 Yes [id number] 1mg Take 1 tablet by mouth in the morning and 1 tablet in the evening. [facility] pantoprazol e 40 mg EC tablet 08-17 00:00: 00 Yes [id number] 40mg Take 1 tablet by mouth in the morning. [facility] amLODIPine 10 mg tablet 08-17 00:00: 00 Yes [id number] 10mg Take 1 tablet by mouth in the morning. [facility] carvediloL (COREG) 25 mg tablet 08-17 00:00: 00 Yes [id number] 25mg Take 1 tablet by mouth in the morning and 1 tablet in the evening. Take with meals. [facility] ferrous sulfate 325 mg (65 mg iron) tablet 08-17 00:00: 00 Yes [id number] 325mg Take 1 tablet by mouth every other day. [facility] hydrOXYzine 10 mg tablet 08-17 00:00: 00 Yes [id number] 10mg Take 1 tablet by mouth every 6 (six) hours as needed for Itching. [facility] predniSONE 5 mg tablet 08-17 00:00: 00 07-05 05:59 :00 No [id number] Take 4 tablets by mouth daily for 7 days, THEN 3.5 tablets daily for 7 days, THEN 3 tablets daily for 7 days, THEN 2 tablets daily for 300 days. [facility] diphenhydrA MINE 25 mg tablet 08-17 00:00: 00 03-21 00:00 :00 No [id number] 25mg Take 1 tablet by mouth as needed for Allergies (Before infusion). [facility] divalproex 500 mg EC tablet 08-17 00:00: 00 10-26 00:00 :00 No [id number] 1500mg Take 3 tablets by mouth every 12 (twelve) hours. [facility] atorvastati n (LIPITOR) 20 mg tablet 08-12 09:11: 44 08-12 00:00 :00 No 20mg Take 20 mg by mouth at bedtime. [facility] vitamin B-12 100 mcg tablet 08-12 09:04: 51 08-12 00:00 :00 No 2500ug Take 2,500 mcg by mouth daily. [facility] tiZANidine 4 mg tablet 08-12 09:03: 27 08-12 00:00 :00 No tizanidine 4 mg tablet Take 1 tablet every 12 hours by oral route as needed for 30 days. [facility] HYDROcodone -acetaminop hen 7.5-325 mg per tablet 08-12 09:03: 15 08-12 00:00 :00 No hydrocodon e 7.5 mg-acetami nophen 325 mg tablet [facility] FLUoxetine 40 mg capsule 08-12 09:03: 05 08-12 00:00 :00 No fluoxetine 40 mg capsule [facility] etodolac 500 mg tablet 08-12 09:02: 59 08-12 00:00 :00 No etodolac 500 mg tablet TAKE ONE TABLET BY MOUTH TWICE A DAY NEEDED [facility] Diclofenac Sodium 1 % gel 08-12 09:02: 47 08-12 00:00 :00 No diclofenac 1 % topical gel [facility] citalopram 20 mg tablet 08-12 09:02: 41 08-12 00:00 :00 No citalopram 20 mg tablet [facility] busPIRone 15 mg tablet 08-12 09:02: 28 08-12 00:00 :00 No buspirone 15 mg tablet [facility] busPIRone 30 mg tablet 08-12 09:02: 16 08-12 00:00 :00 No buspirone 30 mg tablet [facility] baclofen 10 mg tablet 08-12 09:01: 53 08-12 00:00 :00 No baclofen 10 mg tablet Take 1 tablet every 12 hours by oral route as needed for 30 days. [facility] ALPRAZolam 0.5 mg tablet 08-12 09:00: 07 08-12 00:00 :00 No alprazolam 0.5 mg tablet [facility] amLODIPine 10 mg tablet 08-12 00:00: 00 08-17 00:00 :00 No [id number] 10mg Take 1 tablet by mouth in the morning. [facility] carvediloL (COREG) 25 mg tablet 08-12 00:00: 00 08-17 00:00 :00 No [id number] 25mg Take 1 tablet by mouth in the morning and 1 tablet in the evening. Take with meals. [facility] diphenhydrA MINE 25 mg tablet 08-12 00:00: 00 08-17 00:00 :00 No [id number] 25mg Take 1 tablet by mouth as needed for Allergies (Before infusion). [facility] divalproex 500 mg EC tablet 08-12 00:00: 00 08-17 00:00 :00 No [id number] 1500mg Take 3 tablets by mouth every 12 (twelve) hours. [facility] ferrous sulfate 325 mg (65 mg iron) tablet 08-12 00:00: 00 08-17 00:00 :00 No [id number] 325mg Take 1 tablet by mouth every other day. [facility] gabapentin 300 mg capsule 08-12 00:00: 00 08-17 00:00 :00 No [id number] 300mg Take 1 capsule by mouth in the morning and 1 capsule at noon and 1 capsule in the evening. [facility] hydrOXYzine 10 mg tablet 08-12 00:00: 00 08-17 00:00 :00 No [id number] 10mg Take 1 tablet by mouth every 6 (six) hours as needed for Itching. [facility] lisinopriL 40 mg tablet 08-12 00:00: 00 08-17 00:00 :00 No [id number] 40mg Take 1 tablet by mouth in the morning. [facility] pantoprazol e 40 mg EC tablet 08-12 00:00: 00 08-17 00:00 :00 No [id number] 40mg Take 1 tablet by mouth in the morning. [facility] predniSONE 5 mg tablet 08-12 00:00: 00 08-17 00:00 :00 No [id number] Take 4 tablets by mouth daily for 7 days, THEN 3.5 tablets daily for 7 days, THEN 3 tablets daily for 7 days, THEN 2 tablets daily for 300 days. [facility] atorvastati n 20 mg tablet 08-12 00:00: 00 08-17 00:00 :00 No [id number] 20mg Take 1 tablet by mouth at bedtime. [facility] hydrALAZINE 25 mg tablet 08-12 00:00: 00 08-17 00:00 :00 No [id number] 25mg Take 1 tablet by mouth every 6 (six) hours. [facility] risperiDONE 1 mg tablet 08-12 00:00: 00 08-17 00:00 :00 No [id number] 1mg Take 1 tablet by mouth in the morning and 1 tablet in the evening. [facility] metFORMIN 1,000 mg tablet 08-12 00:00: 00 08-17 00:00 :00 No [id number] 1000mg Take 1 tablet by mouth in the morning and 1 tablet in the evening. Take with meals. [facility] divalproex 500 mg EC tablet 2021-07 2 00:00: 00 08-12 00:00 :00 No [id number] 1500mg Take 3 tablets by mouth every 12 (twelve) hours. [facility] ALPRAZolam 0.5 mg tablet 2021-07 10:12: 34 Yes alprazolam 0.5 mg tablet [facility] baclofen 10 mg tablet 2021-07 10:12: 34 Yes baclofen 10 mg tablet Take 1 tablet every 12 hours by oral route as needed for 30 days. [facility] busPIRone 15 mg tablet 2021-07 10:12: 34 Yes buspirone 15 mg tablet [facility] busPIRone 30 mg tablet 2021-07 10:12: 34 Yes buspirone 30 mg tablet [facility] citalopram 20 mg tablet 2021-07 10:12: 34 Yes citalopram 20 mg tablet [facility] Diclofenac Sodium 1 % gel 2021-07 10:12: 34 Yes diclofenac 1 % topical gel [facility] etodolac 500 mg tablet 2021-07 10:12: 34 Yes etodolac 500 mg tablet TAKE ONE TABLET BY MOUTH TWICE A DAY NEEDED [facility] FLUoxetine 40 mg capsule 2021-07 10:12: 34 Yes fluoxetine 40 mg capsule [facility] HYDROcodone -acetaminop hen 7.5-325 mg per tablet 2021-07 10:12: 34 Yes hydrocodon e 7.5 mg-acetami nophen 325 mg tablet [facility] tiZANidine 4 mg tablet 2021-07 10:12: 34 Yes tizanidine 4 mg tablet Take 1 tablet every 12 hours by oral route as needed for 30 days. [facility] riTUXimab (RITUXAN) 1,000 mg in NaCl 0.9% (NS) 1,000 mL infusion 2021-07 15:30: 00 06-03 19:45 :00 No [id number] 1000mg 1,000 mg, IV Infusion, ONCE, On [...] d 30 minutes prior to each infusion. [place] medical management (e.g., glucocorti coids, epinephrin e, [...] occur in patients receiving Rituximab. &nbs p;
[facility] diphenhydrA MINE (BENADRYL) tablet 25 mg 2021-07 14:45: 00 06-03 14:39 :00 No [id number] 25mg 25 mg, Oral, ONCE, 1 dose, On [facility] 06/03/22 at 0845, Routine [facility] acetaminoph en (TYLENOL) tablet 650 mg 2021-07 14:45: 00 06-03 14:39 :00 No [id number] 650mg 650 mg, Oral, ONCE, 1 dose, On [facility] 06/03/22 at 0845, Routine [facility] ibuprofen (ADVIL) 200 mg tablet 2021-07 14:12: 18 06-03 00:00 :00 No 200mg Take 200 mg by mouth 2 (two) times daily with meals. [facility] acetaminoph en (TYLENOL) 325 mg tablet 2021-07 00:00: 00 03-21 00:00 :00 No [id number] 650mg Take 2 tablets by mouth as needed (Before infusion). [facility] diphenhydrA MINE 25 mg tablet 2021-07 00:00: 00 08-12 00:00 :00 No [id number] 25mg Take 1 tablet by mouth as needed for Allergies (Before infusion). [facility] riTUXimab (RITUXAN) 1,000 mg in NaCl 0.9% (NS) 1,000 mL infusion 2021-07 16:00: 00 05-20 21:37 :00 No [id number] 1000mg 1,000 mg, IV Infusion, ONCE, On [...] d 30 minutes prior to each infusion. [place] medical management (e.g., glucocorti coids, epinephrin e, [...] occur in patients receiving Rituximab. &nbs p;
[facility] diphenhydrA MINE (BENADRYL) tablet 25 mg 2021-07 15:45: 00 05-20 14:50 :00 No [id number] 25mg 25 mg, Oral, ONCE, 1 dose, On [place] 05/20/22 at 1045, Routine [facility] acetaminoph en (TYLENOL) tablet 650 mg 2021-07 15:45: 00 05-20 14:50 :00 No [id number] 650mg 650 mg, Oral, ONCE, 1 dose, On [place] 05/20/22 at 1045, Routine [facility] omega-3s-dh a-epa-fish oil-D3 (FISH OIL-VIT D3) 360 mg-1,200 mg -1,000 unit Cap 2021-07 15:58: 17 Yes Take by mouth. [facility] atorvastati n (LIPITOR) 20 mg tablet 2021-07 15:58: 17 Yes 20mg Take 20 mg by mouth at bedtime. [facility] MULTIVITS-M INERALS/FA/ LYCOPENE (ONE-A-DAY MEN'S MULTIVITAMI N ORAL) 2021-07 15:58: 17 Yes Take by mouth. [facility] ibuprofen (ADVIL) 200 mg tablet 2021-07 15:58: 17 Yes 200mg Take 200 mg by mouth 2 (two) times daily with meals. [facility] vitamin B-12 100 mcg tablet 2021-07 15:58: 17 Yes 2500ug Take 2,500 mcg by mouth daily. [facility] hydrALAZINE (APRESOLINE ) tablet 25 mg 2021-07 15:00: 00 Yes 25mg 25 mg, Oral, TID, First dose (after last modificati on) on Tue05/08/22 at 1000, Until Discontinu ed, Routine [facility] gabapentin (NEURONTIN) capsule 300 mg 2021-07 01:00: 00 Yes 300mg 300 mg, Oral, TID, First dose on Tue05/07/22 at 2000, Until Discontinu ed, [facility] mg tablet 2021-07 00:00: 00 08-12 00:00 :00 No [id number] 100mg Take 2 tablets by mouth in the morning. [facility] gabapentin 300 mg capsule 2021-07 00:00: 00 08-12 00:00 :00 No [id number] 300mg Take 1 capsule by mouth in the morning and 1 capsule at noon and 1 capsule in the evening. Do all this for 180 days. [facility] hydrALAZINE 25 mg tablet 2021-07 00:00: 00 08-07 05:59 :00 No [id number] 25mg Take 1 tablet by mouth in the morning and 1 tablet at noon and 1 tablet in the evening. Do all this for 90 days. [facility] apixaban (ELIQUIS) 5 mg tablet 2021-07 00:00: 00 08-07 05:59 :00 No [id number] 5mg Take 1 tablet by mouth in the morning and 1 tablet in the evening. Do all this for 90 days. Indication s: history of deep vein thrombosis [facility] apixaban (ELIQUIS) 5 mg tablet 2021-07 00:00: 00 05-08 00:00 :00 No [id number] 10mg Take 2 tablets by mouth in the morning and 2 tablets in the evening. Do all this for 7 days. Indication s: history of deep vein thrombosis [facility] aspirin 81 mg chewable tablet 2021-07 00:00: 00 05-07 00:00 :00 No [id number] 81mg Take 1 tablet by mouth in the morning. [facility] azaTHIOprin e 100 mg tablet 2021-0715 00:00: 00 05-07 00:00 :00 No [id number] 100mg Take 1 tablet by mouth in the morning. [facility] gadobenate dimeglumine (MULTIHANCE -15 mL) injection 19.78 mL 2021-07 03:15: 00 05-07 03:15 :00 No [id number] .2mL/kg 19.78 mL (0.2 mL/kg ?98.9 kg), Intravenou s, ONCE, 1 dose, On Tue05/06/22 at 2215, Routine [facility] predniSONE 5 mg tablet 2021-07 00:00: 00 08-12 00:00 :00 No [id number] Take 4 tablets by mouth daily for 7 days, THEN 3.5 tablets daily for 7 days, THEN 3 tablets daily for 7 days, THEN 2 tablets daily for 300 days. [facility] lacosamide 50 mg tablet 2021-07 00:00: 00 06-03 00:00 :00 No [id number] 50mg Take 1 tablet by mouth in the morning and 1 tablet in the evening. [facility] Lacosamide 10 mg/mL oral solution 2021-07 00:00: 00 05-07 00:00 :00 No [id number] 50mg Take 5 mL by mouth in the morning and 5 mL in the evening. [facility] aspirin chewable tablet 81 mg 2021-07 19:45: 00 Yes 81mg 81 mg, Oral, DAILY, First dose on Tue05/06/22 at 1445, Until Discontinu ed, Routine [facility] azaTHIOprin e (IMURAN) tablet 100 mg 2021-07 14:00: 00 Yes 100mg 100 mg, Oral, DAILY, First dose (after last modificati on) on Tue05/06/22 at 0900, Until Discontinu ed, Routine [facility] pantoprazol e (PROTONIX) EC tablet 40 mg 2021-07 14:00: 00 Yes 40mg 40 mg, Oral, DAILY, First dose on Tue05/06/22 at 0900, Until Discontinu ed, Routine [facility] lisinopriL (PRINIVIL,Z ESTRIL) tablet 40 mg 2021-07 14:00: 00 Yes 40mg 40 mg, Oral, DAILY, First dose on Tue05/06/22 at 0900, Until Discontinu ed [facility] ferrous sulfate tablet 325 mg 2021-07 14:00: 00 Yes 325mg 325 mg, Oral, Q OTHERDAY, First dose on Tue05/06/22 at 0900, Until Discontinu ed, Routine [facility] amLODIPine (NORVASC) tablet 10 mg 2021-07 14:00: 00 Yes 10mg 10 mg, Oral, DAILY, First dose on Tue05/06/22 at 0900, Until Discontinu ed, Routine [facility] acetaminoph en (TYLENOL) tablet 500 mg 2021-07 04:47: 18 Yes 500mg 500 mg, Oral, Q6HPRN, Starting on Tue05/05/22 at 2347, Until Discontinu ed, Routine, Pain (scale 1-3), Temp > 38.5 C, Pain (scale 4-6) [facility] atorvastati n (LIPITOR) tablet 20 mg 2021-07 02:00: 00 Yes 20mg 20 mg, Oral, QHS, First dose on Tue05/05/22 at 2100, Until Discontinu ed, Routine [facility] risperiDONE (RISPERDAL) tablet 1 mg 2021-07 01:00: 00 Yes 1mg 1 mg, Oral, BID, First dose on Tue05/05/22 at 2000, Until Discontinu ed, Routine [facility] divalproex (DEPAKOTE) EC tablet 1,500 mg 2021-07 01:00: 00 Yes 1500mg 1,500 mg, Oral, Q12H, First dose on Tue05/05/22 at 2000, Until Discontinu ed, Routine [facility] heparin (porcine) injection 5,000 Units 2021-07 01:00: 00 Yes 5000U 5,000 Units, Subcutaneo us, Q12H, First dose on Tue05/05/22 at 2000, Until Discontinu ed, Routine [facility] Sliding Scale Insulin - Lispro (HumaLOG) + Fsbg Testing 2021-07 22:00: 00 Yes Subcutaneo us, TID MEALS+HS, First dose on Tue05/05/22 at 1700, Until Discontinu ed, Routine [facility] carvediloL (COREG) tablet 25 mg 2021-07 22:00: 00 Yes 25mg 25 mg, Oral, BID MEALS, First dose on Tue05/05/22 at 1700, Until Discontinu ed, Routine [facility] lacosamide (VIMPAT) 50 mg in NaCl 0.9% (NS) 50 mL piggyback 2021-07 21:45: 00 05-08 00:27 :03 No 50mg 50 mg, IV Piggyback, Q12H, First dose on Tue05/05/22 at 1645, Until Discontinu ed, Administer over 30 Minutes, 50 mL
Facu lty member approving Restricted medication : ARMEN COX RA [facility] predniSONE (DELTASONE) tablet 20 mg 2021-07 19:00: 00 Yes 20mg 20 mg, Oral, DAILY, First dose on Tue05/05/22 at 1400, Until Discontinu ed, Routine [facility] glucagon (GLUCAGEN DIAGNOSTIC KIT) injection 1 mg 2021-07 18:48: 01 Yes 1mg 1 mg, Intramuscu lar, PRN, Starting on Tue05/05/22 at 1348, Until Discontinu ed, HENRY, Blood Glucose < or = 70 mg/dL and patient is unable to swallow or has mental changes. [facility] dextrose 50 % in water (D50W) injection 25 mL 2021-07 18:48: 01 Yes 25mL 25 mL, Slow IV Push, PRN, Starting on Tue05/05/22 at 1348, Until Discontinu ed, HENRY, Blood Glucose < or = 70 mg/dL and patient is unable to swallow or has mental status changes. [facility] hydrOXYzine (ATARAX) 10 mg/5 mL solution 10 mg 2021-07 18:47: 35 Yes 10mg 10 mg, Oral, Q6HPRN, Starting on Tue05/05/22 at 1347, Until Discontinu ed, Routine, Anxiety [facility] NaCl 0.9% (NS) IV infusion 1,000 mL 2021-07 18:30: 00 Yes 1000mL at 50 mL/hr, IV Infusion, CONTINUOUS , Starting on Tue05/05/22 at 1330, Until Discontinu ed, Routine
To keep vein open.
[facility] iopamidol (ISOVUE 370-500 mL) injection 100 mL 2021-07 16:00: 00 05-05 16:00 :00 No [id number] 100mL 100 mL, Intravenou s, ONCE, 1 dose, On Tue05/05/22 at 1100, Routine [facility] iopamidol (ISOVUE 370-500 mL) injection 100 mL 2021-07 15:45: 00 05-05 15:45 :00 No [id number] 100mL 100 mL, Intravenou s, ONCE, 1 dose, On Tue05/05/22 at 1045, [facility]ine [facility] NaCl 0.9% (NS) injection 5 mL 2021-07 14:20: 20 Yes 5mL 5 mL, Slow IV Push, PRN - SEE INSTRUCTIO NS, Starting on Tue05/05/22 at 0920, Until Discontinu ed, 10 mL [facility] predniSONE (DELTASONE) tablet 30 mg 04-11 14:00: 00 04-16 13:59 :00 No 30mg 30 mg, Oral, DAILY, 5 doses, First dose on 04/11/22 at 0900, Last dose on [facility] 04/15/22 at 0900, Routine [facility] omega-3s-dh a-epa-fish oil-D3 (FISH OIL-VIT D3) 360 mg-1,200 mg -1,000 unit Cap 04-09 23:12: 13 Yes Take by mouth. [facility] ity [facility] atorvastati n (LIPITOR) 20 mg tablet 04-09 23:12: 13 Yes 20mg Take 20 mg by mouth at bedtime. [facility] ity [facility] POTASSIUM-9 9 ORAL 04-09 23:12: 13 Yes 99mg Take 99 mg by mouth daily. [facility] ibuprofen (ADVIL) 200 mg tablet 04-09 23:12: 13 Yes 200mg Take 200 mg by mouth 2 (two) times daily with meals. [facility] vitamin B-12 100 mcg tablet 04-09 23:12: 13 Yes 2500ug Take 2,500 mcg by mouth daily. [facility] carvedilol (COREG) 25 mg tablet 04-09 16:13: 37 04-09 00:00 :00 No 25mg Take 25 mg by mouth 2 (two) times daily with meals. [facility] lisinopriL 40 mg tablet 04-09 16:13: 37 04-09 00:00 :00 No 40mg Take 40 mg by mouth in the morning. [facility] lisinopriL 40 mg tablet 04-09 00:00: 00 08-12 00:00 :00 No [id number] 40mg Take 1 tablet by mouth in the morning. [facility] carvediloL (COREG) 25 mg tablet 04-09 00:00: 00 08-12 00:00 :00 No [id number] 25mg Take 1 tablet by mouth in the morning and 1 tablet in the evening. Take with meals. [facility] amLODIPine 10 mg tablet 04-09 00:00: 00 08-12 00:00 :00 No [id number] 10mg Take 1 tablet by mouth in the morning. [facility] risperiDONE 1 mg tablet 04-09 00:00: 00 07-09 05:59 :00 No [id number] 1mg Take 1 tablet by mouth in the morning and 1 tablet in the evening. Do all this for 90 days. [facility] divalproex 500 mg EC tablet 04-09 00:00: 00 07-09 05:59 :00 No [id number] 1500mg Take 3 tablets by mouth every 12 (twelve) hours for 90 days. [facility] predniSONE 5 mg tablet 04-09 00:00: 00 05-07 00:00 :00 No [id number] Take 6 tablets by mouth daily for 7 days, THEN 4 tablets daily for 7 days, THEN 2 tablets daily for 7 days, THEN 1 tablet daily for 100 days. [facility] predniSONE 5 mg tablet 04-08 00:00: 00 04-09 00:00 :00 No [id number] Take 6 tablets by mouth daily for 5 days, THEN 4 tablets daily for 5 days, THEN 2 tablets daily for 5 days, THEN 1 tablet daily for 100 days. [facility] predniSONE (DELTASONE) tablet 40 mg 04-06 14:00: 00 04-11 13:59 :00 No 40mg 40 mg, Oral, DAILY, 5 doses, First dose on Tue04/06/22 at 0900, Last dose on Tue04/10/22 at 0900, Routine [facility] NaCl 0.9% (NS) injection 10 mL 04-06 11:19: 41 Yes 10mL 10 mL, Slow IV Push, PRN, Starting on Tue04/06/22 at 0619, Until Discontinu ed, Routine, line maintenanc e [facility] lidocaine 1% (PF) (XYLOCAINE) injection 5 mL 04-06 11:19: 41 Yes 5mL 5 mL, Subcutaneo us, PRN, Starting on Tue04/06/22 at 0619, Until Discontinu ed, Routine, Local anesthesia [facility] predniSONE (DELTASONE) tablet 40 mg 04-05 14:00: 00 04-05 13:22 :00 No 40mg 40 mg, Oral, DAILY, 1 dose, First dose (after last modificati on) on Tue04/05/22 at 0900, Routine [facility] divalproex (DEPAKOTE) EC tablet 1,500 mg 04-04 16:30: 00 Yes 1500mg 1,500 mg, Oral, Q12H, First dose on Tue04/04/22 at 1130, Until Discontinu ed, Routine [facility] risperiDONE (RISPERDAL) tablet 1 mg 04-04 04:00: 00 Yes 1mg 1 mg, Oral, BID, First dose (after last modificati on) on Tue04/03/22 at 2300, Until Discontinu ed, Routine [facility] melatonin (MELATIN) tablet 3 mg 04-04 02:00: 00 Yes [id number] 3mg 3 mg, Oral, QHS, First dose on [facility] 04/03/22 at 2100, Until Discontinu ed, Routine [facility] pantoprazol e (PROTONIX) EC tablet 40 mg 04-01 14:00: 00 Yes 40mg 40 mg, Oral, DAILY, First dose on [facility] 04/01/22 at 0900, Until Discontinu ed, Routine [facility] lisinopriL (PRINIVIL,Z ESTRIL) tablet 40 mg 04-01 14:00: 00 Yes 40mg 40 mg, Oral, DAILY, First dose on [facility] 04/01/22 at 0900, Until Discontinu ed [facility] predniSONE (DELTASONE) tablet 40 mg 04-01 14:00: 00 04-05 11:56 :20 No 40mg 40 mg, Oral, DAILY, First dose (after last modificati on) on [facility] 04/01/22 at 0900, Until Discontinu ed, Routine [facility] acetaminoph en ADULT (OFIRMEV) injection 1,000 mg 04-01 07:00: 00 04-01 06:43 :00 No 1000mg 1,000 mg, IV Infusion, at 400 mL/hr Administer over 15 Minutes, ONCE NOW, 1 dose, On [facility] 04/01/22 at 0200, Routine
Indicatio n: Non-periop erative Patient
Approved by: Per Policy (NPO Status) [facility] hydralAZINE (APRESOLINE ) injection 5 mg 04-01 06:12: 29 Yes 5mg 5 mg, Slow IV Push, Q4HPRN, Starting on [facility] 04/01/22 at 0112, Until Discontinu ed, Routine, DBP=>100; SBP=>160 [facility] valproate (DEPACON) 1,500 mg in D5W piggyback 04-01 05:00: 00 2022- 09-11 16:15 :56 No 1500mg 1,500 mg, IV Piggyback, Q12HA1, First dose on [facility] 04/01/22 at 0000, Until Discontinu ed, Administer over 60 Minutes, 100 mL [facility] atorvastati n (LIPITOR) tablet 20 mg 04-01 02:00: 00 Yes 20mg 20 mg, Oral, QHS, First dose on Tue03/31/22 at 2100, Until Discontinu ed, Routine [facility] amLODIPine (NORVASC) tablet 10 mg 04-01 02:00: 00 Yes 10mg 10 mg, Oral, QHS, First dose on Tue03/31/22 at 2100, Until Discontinu ed, Routine [facility] heparin (porcine) injection 5,000 Units 04-01 01:00: 00 Yes 5000U 5,000 Units, Subcutaneo us, Q12H, First dose on Tue03/31/22 at 2000, Until Discontinu ed, Routine [facility] risperiDONE (RisperDAL M-TAB) disintegrat ing tablet 1 mg 04-01 01:00: 00 04-04 03:55 :54 No 1mg 1 mg, Oral, BID, First dose on Tue03/31/22 at 2000, Until Discontinu ed, Routine [facility] diphenhydrA MINE (BENADRYL) injection 25 mg 03-31 23:15: 00 04-01 07:16 :00 No 25mg 25 mg, Slow IV Push, ONCE, 1 dose, On Tue03/31/22 at 1815, Routine [facility] acetaminoph en (TYLENOL) tablet 325 mg 03-31 22:35: 02 Yes 325mg 325 mg, Oral, Q6HPRN, Starting on Tue03/31/22 at 1735, Until Discontinu ed, Routine, Pain (scale 1-3) [facility] carvediloL (COREG) tablet 25 mg 03-31 22:00: 00 Yes 25mg 25 mg, Oral, BID MEALS, First dose on Tue03/31/22 at 1700, Until Discontinu ed, Routine [facility] azaTHIOprin e (IMURAN) tablet 50 mg 03-31 17:15: 00 04-05 16:03 :26 No 50mg 50 mg, Oral, DAILY, First dose (after last modificati on) on Tue03/31/22 at 1215, Until Discontinu ed, Routine [facility] fosphenytoi n (CEREBYX) 998 mg PE in NaCl 0.9% (NS) piggyback 03-31 17:00: 00 03-31 18:04 :00 No 10mg{ph enytoin 'equiva lent}/k g 998 mg PE (10 mg PE/kg ?99.8 kg), IV Piggyback, ONCE, 1 dose, On Tue03/31/22 at 1200, Administer over 30 Minutes, 100 mL [facility] divalproex ER (DEPAKOTE ER) 24 hr tablet 1,500 mg 03-31 16:45: 00 04-01 03:40 :07 No 1500mg 1,500 mg, Oral, BID, First dose on Tue03/31/22 at 1145, Until Discontinu ed, Routine [facility] NaCl 0.9% (NS) IV infusion 1,000 mL 03-31 16:30: 00 Yes 1000mL at 50 mL/hr, IV Infusion, CONTINUOUS , Starting on Tue03/31/22 at 1130, Until Discontinu ed, Routine [facility] iopamidol (ISOVUE 370-500 mL) injection 130 mL 03-31 16:30: 00 03-31 15:25 :00 No [id number] 130mL 130 mL, Intravenou s, ONCE, 1 dose, On Tue03/31/22 at 1130, Routine [facility] acetaminoph en (TYLENOL) tablet 650 mg 03-31 16:20: 10 Yes 650mg 650 mg, Oral, Q6HPRN, Starting on Tue03/31/22 at 1120, Until Discontinu ed, Routine, Pain (scale 4-6) [facility] docusate (COLACE) capsule 100 mg 03-31 16:20: 10 Yes 100mg 100 mg, Oral, QDAILYPRN, Starting on Tue03/31/22 at 1120, Until Discontinu ed, Routine, Constipati on [facility] hydrOXYzine (ATARAX) 10 mg/5 mL solution 10 mg 03-31 16:19: 24 Yes 10mg 10 mg, Oral, Q6HPRN, Starting on Tue03/31/22 at 1119, Until Discontinu ed, Routine, Anxiety [facility] NEISHA ASPIRIN ORAL 03-31 11:23: 20 03-31 00:00 :00 No 81mg Take 81 mg by mouth daily. [facility] Sennosides (EX-LAX MAXIMUM STRENGTH) 25 mg Tab 03-31 11:23: 20 03-31 00:00 :00 No Take by mouth. [facility] OMEPRAZOLE/ SODIUM BICARBONATE (ZEGERID OTC ORAL) 03-11 12:21: 33 03-11 00:00 :00 No Take by mouth. [facility] pantoprazol e 40 mg EC tablet 03-11 00:00: 00 08-12 00:00 :00 No [id number] 40mg Take 1 tablet by mouth in the morning. [facility] predniSONE 20 mg tablet 03-11 00:00: 00 04-07 00:00 :00 No [id number] 20mg Take 1 tablet by mouth in the morning for 90 days. [facility] amoxicillin -clavulanat e (AUGMENTIN) 875-125 mg per tablet 03-05 00:00: 00 03-31 00:00 :00 No [id number] 1{tbl} Take 1 tablet by mouth in the morning and 1 tablet in the evening. [facility] azaTHIOprin e 50 mg tablet 02-28 00:00: 00 03-11 00:00 :00 No [id number] 50mg Take 1 tablet by mouth in the morning. [facility] lisinopriL 40 mg tablet 02-21 08:35: 01 Yes 40mg Take 40 mg by mouth in the morning. [facility] ferrous sulfate 325 mg (65 mg iron) tablet 02-20 00:00: 00 08-12 00:00 :00 No [id number] 325mg Take 1 tablet by mouth every other day. [facility] carvedilol (COREG) 25 mg tablet 02-19 20:35: 38 Yes 25mg Take 25 mg by mouth 2 (two) times daily with meals. [facility] omega-3s-dh a-epa-fish oil-D3 (FISH OIL-VIT D3) 360 mg-1,200 mg -1,000 unit Cap 02-19 20:35: 38 Yes Take by mouth. [facility] MULTIVITS-M INERALS/FA/ LYCOPENE (ONE-A-DAY MEN'S MULTIVITAMI N ORAL) 02-19 20:35: 38 Yes 81mg Take by mouth. [facility] atorvastati n (LIPITOR) 20 mg tablet 02-19 20:35: 38 Yes 20mg Take 20 mg by mouth at bedtime. [facility] Sennosides (EX-LAX MAXIMUM STRENGTH) 25 mg Tab 02-19 20:35: 38 Yes Take by mouth. [facility] ibuprofen (ADVIL) 200 mg tablet 02-19 20:35: 38 Yes 200mg Take 200 mg by mouth 2 (two) times daily with meals. [facility] vitamin B-12 100 mcg tablet 02-19 20:35: 38 Yes 2500ug Take 2,500 mcg by mouth daily. [facility] hydrOXYzine 10 mg/5 mL solution 02-19 00:00: 00 08-12 00:00 :00 No [id number] 10mg Take 5 mL by mouth every 6 (six) hours as needed for Anxiety. [facility] divalproex ER 500 mg 24 hr tablet 02-19 00:00: 00 04-09 00:00 :00 No [id number] 1000mg Take 2 tablets by mouth in the morning and 2 tablets in the evening. [facility] risperiDONE 1 mg disintegrat ing tablet 02-19 00:00: 00 04-09 00:00 :00 No [id number] 1mg Take 1 tablet by mouth in the morning and 1 tablet in the evening. [facility] amLODIPine 10 mg tablet 02-19 00:00: 04-09 00:00 :00 No [id number] 10mg Take 1 tablet by mouth at bedtime for 90 days. [facility] predniSONE 5 mg tablet 02-19 00:00: 03-11 00:00 :00 No [id number] Take 8 tablets by mouth daily for 3 days, THEN 6 tablets daily for 3 days, THEN 4 tablets daily for 3 days, THEN 3 tablets daily for 3 days, THEN 1.5 tablets daily for 100 days. [facility] Topiramate 25 MG Topiramate 25 MG 04-17 00:00: 00 No 1{table t} QD Topiramate 25 MG Cipro 500 MG Cipro 500 MG 04-17 00:00: 04-27 00:00 :00 No 1{table t} BID Cipro 500 MG butalbital- acetaminoph en-caff 50-325-40 mg tablet 04-11 00:00: 03-31 00:00 :00 No [id number] 1{tbl} Take 1 tablet by mouth every 6 (six) hours as needed for Pain (scale 7-10). [facility] ProAir HFA 108 (90 Base) [...] 04-19 00:00: 00 08-12 00:00 :00 No [id number] 500mg Take 1 tablet by mouth 2 (two) times daily with meals. [facility] BusPIRone HCl BusPIRone HCl Yes Kika Valdez TAKE ONE TABLET BY MOUTH TWICE A DAY [facility] Metformin HCl 850 MG Metformin [...] Amlodipine Besylate 10 MG Citalopram Hydrobromid e 40 MG Citalopram [...] 1{table t} BID Clonidine HCl 0.2 MG Fish Oil 1200 MG Fish Oil 1200 MG No 1{capsu le} BID Fish Oil 1200 MG Amlodipine Besylate 10 MG Amlodipine Besylate 10 MG No 1{table t} QD Amlodipine Besylate 10 MG Multi For Him - Multi For Him - No Multi For Him - Aspirin 81 81 MG Aspirin 81 81 [...] 1{table t} BID Clonidine HCl 0.2 MG Vital Signs Vital Name Observation Time Observation Value Comments S ource Systolic blood pressure 2023-12-02 14:56:00 159 mm[Hg] [facility] Diastolic blood pressure 2023-12-02 14:56:00 93 mm[Hg] [facility] Heart rate 2023-12-02 14:56:00 71 /min [facility] Body temperature 2023-12-02 14:56:00 36.56 Rox [facility] Respiratory rate 2023-12-02 14:56:00 19 /min [facility] Oxygen saturation in Arterial blood by Pulse oximetry 2023-12-02 14:56:00 96 /min [facility] Body height 2023-12-02 12:23:00 190.5 cm [facility] Body weight 2023-12-02 12:23:00 131.906 kg [facility] BMI 2023-12-02 12:23:00 36.35 kg/m2 [facility] Systolic blood pressure 2023-11-25 13:52:00 155 mm[Hg] [facility] Diastolic blood pressure 2023-11-25 13:52:00 93 mm[Hg] [facility] Heart rate 2023-11-25 13:52:00 69 /min [facility] Body temperature 2023-11-25 13:51:00 36.56 Rox [facility] Respiratory rate 2023-11-25 13:51:00 16 /min [facility] Body height 2023-11-25 13:51:00 190.5 cm [facility] Body weight 2023-11-25 13:51:[address] [facility] BMI 2023-11-25 13:51:00 36.39 kg/m2 [facility] Oxygen saturation in Arterial blood by Pulse oximetry 2023-11-25 13:51:00 98 /min ra [facility] Body weight 2023-08-16 15:05:00 135.172 kg [facility] BMI 2023-08-16 15:05:00 35.34 kg/m2 [facility] Systolic blood pressure 2023-07-26 20:54:00 146 mm[Hg] [facility] Diastolic blood pressure 2023-07-26 20:54:00 94 mm[Hg] [facility] Heart rate 2023-07-26 20:54:00 73 /min [facility] [facility] Body temperature 2023-07-26 20:53:00 36.61 Rox [facility] Respiratory rate 2023-07-26 20:53:00 20 /min [facility] Body height 2023-07-26 20:53:00 195.6 cm [facility] Body weight 2023-07-26 20:53:00 135.58 kg [facility] BMI 2023-07-26 20:53:00 35.44 kg/m2 [facility] Oxygen saturation in Arterial blood by Pulse oximetry 2023-07-26 20:53:00 97 /min [facility] Body weight 2023-06-14 16:00:00 129.275 kg [facility] BMI 2023-06-14 16:00:00 34.69 kg/m2 [facility] Systolic blood pressure 2023-06-03 17:21:00 149 mm[Hg] [facility] Diastolic blood pressure 2023-06-03 17:21:00 72 mm[Hg] [facility] Heart rate 2023-06-03 17:21:00 67 /min [facility] Body temperature 2023-06-03 17:21:00 36.67 Rox [facility] Respiratory rate 2023-06-03 17:21:00 18 /min [facility] Oxygen saturation in Arterial blood by Pulse oximetry 2023-06-03 17:21:00 96 /min [facility] BMI 2023-06-03 14:12:00 34.72 kg/m2 [facility] Body height 2023-06-03 14:12:[address] [facility] Body weight 2023-06-03 14:12:00 129.366 kg [facility] Systolic blood pressure 2023-05-27 19:43:00 168 mm[Hg] [facility] Diastolic blood pressure 2023-05-27 19:43:00 102 mm[Hg] [facility] Heart rate 2023-05-27 19:42:00 81 /min [facility] Body temperature 2023-05-27 19:42:00 37.28 Rox [facility] Respiratory rate 2023-05-27 19:42:00 20 /min [facility] Body height 2023-05-27 19:42:[address] [facility] Body weight 2023-05-27 19:42:[address] [facility] BMI 2023-05-27 19:42:00 35.18 kg/m2 [facility] Oxygen saturation in Arterial blood by Pulse oximetry 2023-05-27 19:42:00 97 /min [facility] Systolic blood pressure 2023-03-21 19:00:00 145 mm[Hg] [facility] Diastolic blood pressure 2023-03-21 19:00:00 77 mm[Hg] [facility] Heart rate 2023-03-21 19:00:00 71 /min [facility] Body temperature 2023-03-21 19:00:00 38.39 Rox [facility] Respiratory rate 2023-03-21 19:00:00 20 /min [facility] Oxygen saturation in Arterial blood by Pulse oximetry 2023-03-21 13:00:00 94 /min [facility] Body height 2023-03-21 06:00:[address] [facility] Body weight 2023-03-20 22:13:[address] [facility] BMI 2023-03-20 22:13:00 32.73 kg/m2 [facility] Systolic blood pressure 2023-02-16 16:15:00 114 mm[Hg] [facility] Diastolic blood pressure 2023-02-16 16:15:00 60 mm[Hg] [facility] Heart rate 2023-02-16 16:15:00 80 /min [facility] Body temperature 2023-02-16 16:15:00 36.5 Rox [facility] Respiratory rate 2023-02-16 16:15:00 17 /min [facility] Oxygen saturation in Arterial blood by Pulse oximetry 2023-02-16 16:15:00 94 /min [facility] Body weight 2023-02-14 18:00:00 120 kg [facility] BMI 2023-02-14 18:00:00 31.37 kg/m2 [facility] Body height 2023-02-14 04:21:[address] [facility] Systolic blood pressure 2023-01-18 18:25:00 144 mm[Hg] [facility] Diastolic blood pressure 2023-01-18 18:25:00 85 mm[Hg] [facility] Heart rate 2023-01-18 18:25:00 90 /min [facility] Body temperature 2023-01-18 18:25:00 35.83 Rox [facility] Body height 2023-01-18 18:25:[address] [facility] Body weight 2023-01-18 18:25:00 123.378 kg [facility] BMI 2023-01-18 18:25:00 37.94 kg/m2 [facility] Oxygen saturation in Arterial blood by Pulse oximetry 2023-01-18 18:25:00 96 /min [facility] Body weight 2022-12-14 15:26:00 121.11 kg [facility] BMI 2022-12-14 15:26:00 32.50 kg/m2 [facility] Systolic blood pressure 2022-12-01 20:22:00 139 mm[Hg] [facility] Diastolic blood pressure 2022-12-01 20:22:00 80 mm[Hg] [facility] Heart rate 2022-12-01 20:22:00 66 /min [facility] Respiratory rate 2022-12-01 20:22:00 18 /min [facility] Oxygen saturation in Arterial blood by Pulse oximetry 2022-12-01 20:22:00 98 /min [facility] Body temperature 2022-12-01 13:57:00 36.33 Rox [facility] Body height 2022-12-01 13:57:00 193 cm [facility] Body weight 2022-12-01 13:57:00 121.11 kg [facility] BMI 2022-12-01 13:57:00 32.50 kg/m2 [facility] Systolic blood pressure 2022-10-26 12:36:00 143 mm[Hg] [facility] Diastolic blood pressure 2022-10-26 12:36:00 88 mm[Hg] [facility] Heart rate 2022-10-26 12:36:00 59 /min [facility] Oxygen saturation in Arterial blood by Pulse oximetry 2022-10-26 12:36:00 100 /min [facility] Body temperature 2022-10-26 12:34:00 36.72 Rox [facility] Respiratory rate 2022-10-26 12:34:00 16 /min [facility] Body height 2022-10-25 13:48:00 193 cm [facility] Body weight 2022-10-25 13:48:00 118.842 kg [facility] BMI 2022-10-25 13:48:00 31.89 kg/m2 [facility] Systolic blood pressure 2022-06-10 16:10:00 137 mm[Hg] [facility] Diastolic blood pressure 2022-06-10 16:10:00 89 mm[Hg] [facility] Heart rate 2022-06-10 16:09:00 84 /min [facility] Body temperature 2022-06-10 16:09:00 36.06 Orx [facility] Respiratory rate 2022-06-10 16:09:00 19 /min [facility] Body height 2022-06-10 16:09:00 193 cm [facility] Body weight 2022-06-10 16:09:00 108.138 kg [facility] BMI 2022-06-10 16:09:00 29.02 kg/m2 [facility] Oxygen saturation in Arterial blood by Pulse oximetry 2022-06-10 16:09:00 100 /min [facility] Systolic blood pressure 2022-06-03 18:24:00 129 mm[Hg] [facility] Diastolic blood pressure 2022-06-03 18:24:00 73 mm[Hg] [facility] Heart rate 2022-06-03 18:24:00 68 /min [facility] Respiratory rate 2022-06-03 18:24:00 20 /min [facility] Oxygen saturation in Arterial blood by Pulse oximetry 2022-06-03 18:24:00 99 /min [facility] Body temperature 2022-06-03 14:34:00 36.44 Rox [facility] Body height 2022-06-03 14:34:00 190.5 cm [facility] Body weight 2022-06-03 14:34:00 107.049 kg [facility] BMI 2022-06-03 14:34:00 29.50 kg/m2 [facility] Systolic blood pressure 2022-05-20 21:37:00 141 mm[Hg] [facility] Diastolic blood pressure 2022-05-20 21:37:00 93 mm[Hg] [facility] Heart rate 2022-05-20 21:37:00 53 /min [facility] Respiratory rate 2022-05-20 21:37:00 16 /min [facility] Oxygen saturation in Arterial blood by Pulse oximetry 2022-05-20 21:37:00 99 /min [facility] Body temperature 2022-05-20 14:12:00 36.28 Rox [facility] Body height 2022-05-20 14:12:00 193 cm [facility] Body weight 2022-05-20 14:12:00 101.152 kg [facility] BMI 2022-05-20 14:12:00 27.14 kg/m2 [facility] Systolic blood pressure 2022-05-08 18:04:00 135 mm[Hg] [facility] Diastolic blood pressure 2022-05-08 18:04:00 92 mm[Hg] [facility] Heart rate 2022-05-08 18:04:00 68 /min [facility] Body temperature 2022-05-08 18:04:00 36.72 Rox [facility] Respiratory rate 2022-05-08 18:04:00 19 /min [facility] Oxygen saturation in Arterial blood by Pulse oximetry 2022-05-08 18:04:00 100 /min [facility] Body height 2022-05-05 21:15:00 193 cm [facility] Body weight 2022-05-05 14:17:00 98.884 kg [facility] BMI 2022-05-05 14:17:00 26.54 kg/m2 [facility] Systolic blood pressure 2022-04-10 01:03:00 152 mm[Hg] [facility] Diastolic blood pressure 2022-04-10 01:03:00 102 mm[Hg] [facility] Heart rate 2022-04-10 01:03:00 74 /min [facility] Body temperature 2022-04-10 01:03:00 36.56 Rox [facility] Oxygen saturation in Arterial blood by Pulse oximetry 2022-04-09 21:44:00 98 /min [facility] Respiratory rate 2022-04-09 16:46:00 20 /min [facility] Body height 2022-04-01 03:47:00 193 cm [facility] Body weight 2022-04-01 03:47:00 99.791 kg [facility] BMI 2022-04-01 03:47:00 26.78 kg/m2 [facility] Body height 2022-03-23 15:45:00 193 cm [facility] Body weight 2022-03-23 15:45:00 105.235 kg [facility] BMI 2022-03-23 15:45:00 28.24 kg/m2 [facility] Systolic blood pressure 2022-03-11 15:06:00 149 mm[Hg] [facility] Diastolic blood pressure 2022-03-11 15:06:00 90 mm[Hg] [facility] Heart rate 2022-03-11 15:06:00 71 /min [facility] Body weight 2022-03-11 15:06:00 105.235 kg [facility] BMI 2022-03-11 15:06:00 28.24 kg/m2 [facility] height 2020-08-07 16:40:00 76 [in_i] Commo n [facility] weight 2020-08-07 16:40:00 243.2 [lb_av] Co mmon [facility] temperature 2020-08-07 16:40:00 98.3 [degF] Com mon [facility] bmi 2020-08-07 16:40:00 29.6 kg/m2 [facility] oximetry 2020-08-07 16:40:00 98 % [facility] respiratory rate 2020-08-07 16:40:00 16 /min Common [facility] blood pressure systolic 2020-08-07 16:40:00 139 mm[Hg] Common [facility] blood pressure diastolic 2020-08-07 16:40:00 71 mm[Hg] [facility] respiratory rate 2020-05-08 09:00:00 16 /min Common [facility] blood pressure systolic 2020-05-08 09:00:00 128 mm[Hg] [facility] blood pressure diastolic 2020-05-08 09:00:00 72 mm[Hg] Common [facility] height 2020-05-08 09:00:00 76 [in_i] Commo n [facility] weight 2020-05-08 09:00:00 258.8 [lb_av] Co mmon [facility] temperature 2020-05-08 09:00:00 98.1 [degF] Com [facility] bmi 2020-05-08 09:00:00 31.5 kg/m2 Commo n [facility] oximetry 2020-05-08 09:00:00 98 % Commo n [facility] height 2020-04-17 08:20:00 76 [in_i] Commo n [facility] weight 2020-04-17 08:20:00 261.6 [lb_av] Co on [facility] temperature 2020-04-17 08:20:00 97.8 [degF] Com [facility] bmi 2020-04-17 08:20:00 31.84 kg/m2 Comm on [facility] oximetry 2020-04-17 08:20:00 98 % Commo n [facility] respiratory rate 2020-04-17 08:20:00 16 /min [facility] blood pressure systolic 2020-04-17 08:20:00 126 mm[Hg] [facility] blood pressure diastolic 2020-04-17 08:20:00 80 mm[Hg] [facility] Procedures Procedure Date / Time Performed Performing Clinician Source AUTOMATED VISUAL FIELD, EXTENDED - OU - BOTH EYES 2023-08-16 16:32:06 Marlon Bush [facility] REFERRAL- REQUEST/RESPONSE 2023-07-26 06:01:00 Doctor Unassigned, [facility]atinum [facility] OCT, OPTIC NERVE - OU - BOTH EYES 2023-06-14 16:49:49 Marlon Bush [facility] INSURANCE CORRESPONDENCE 2023-06-14 06:01:00 Doctor Unassigned, [facility] COMP. METABOLIC PANEL (45604) 2023-06-03 14:15:00 Elin Vieyra [facility] CBC WITH DIFF 2023-06-03 14:15:00 Azalia [facility] CD19 SUBSET ASSAY 2023-06-03 14:15:00 Azalia [facility] MINI-MENTAL STATE EXAM 2023-05-27 05:01:00 Doctor Unassigned, [facility]atinum [facility] XR CHEST 1 VW 2023-03-21 08:00:00 [facility] LACTATE DEHYDROGENASE 2023-03-21 06:10:00 [facility] D-DIMER 2023-03-21 06:10:00 [facility] LACTIC ACID WHOLE BLOOD 2023-03-21 02:52:00 Joan Waite [facility] URINALYSIS 2023-03-21 01:57:00 Joan Waite [facility] ELECTROENCEPHALOGRAM 2023-03-21 00:00:00 Trish Mondragon [facility] CT HEAD WO CONTRAST 2023-03-20 23:59:18 Joan Waite [facility] COVID-19 (ID NOW RAPID TESTING) 2023-03-20 22:42:00 Joan Waite [facility] LAB ONLY COVID INTERPRETATION 2023-03-20 22:42:00 Joan Waite [facility] BLOOD CULTURE SCREEN 2023-03-20 22:34:00 Joan Waite [facility] MAGNESIUM 2023-03-20 22:34:00 Joan Waite [facility] FERRITIN SERUM 2023-03-20 22:34:00 [facility] C-REACTIVE PROTEIN 2023-03-20 22:34:00 [facility] COMP. METABOLIC PANEL (30476) 2023-03-20 22:34:00 Joan Waite [facility] VALPROIC ACID, FREE 2023-03-20 22:34:00 Joan Waite [facility] CBC WITH DIFF 2023-03-20 22:34:00 Joan Waite [facility] PROCALCITONIN 2023-03-20 22:34:00 Amita Virk [facility] CONSENT/REFUSAL FOR DIAGNOSI S AND TREATMENT 2023-03-20 22:00:37 Doctor Unassigned, [facility] EXTERNAL PROVIDER RECORDS 2023-03-03 05:01:00 Doctor Unassigned, [facility] US DUPLEX VENOUS ARM RIGHT - BY VASCULAR LAB 2023-02-15 20:33:00 Mari Zurita [facility] PHOSPHORUS 2023-02-15 10:20:00 Javi [facility] MAGNESIUM 2023-02-15 10:20:00 Javi [facility] HEPATIC FUNCTION PANEL ([id number]) (ALB,T.PRO,BILI T,BU/BC,ALT,AST,ALK PHOS) 2023-02-15 10:20:00 Parminder [facility] BASIC METABOLIC PANEL (NA, K , CL, CO2, GLUCOSE, BUN, CREATININE, CA) 2023-02-15 10:20:00 Javi [facility] VALPROIC ACID, FREE 2023-02-15 10:20:00 Parminder [facility] CBC WITH DIFF 2023-02-15 10:20:00 Javi [facility] SYPHILIS IGG/IGM 2023-02-15 10:20:00 Luis Alberto Rosario [facility] POCT GLUCOSE (AUTOMATED) 2023-02-14 21:51:00 Ludy [facility] POCT GLUCOSE (AUTOMATED) 2023-02-14 17:31:00 Sigifredo Boston [facility] LOWER EXTREMITY ARTERIAL DUPLEX BILATERAL - BY VASCULAR LAB 2023-02-14 17:26:00 Ludy [facility] DUPLEX VENOUS LEGS BILATERAL - BY VASCULAR LAB 2023-02-14 15:59:00 Sigifredo Boston [facility] CT HEAD WO CONTRAST 2023-02-14 15:30:00 Javi [facility] CT STROKE ANGIOGRAM HEAD 2023-02-14 15:30:00 Javi [facility] CT STROKE ANGIOGRAM NECK 2023-02-14 15:30:00 Javi [facility] THYROID STIMULATING HORMONE 2023-02-14 06:49:00 Sigifredo Boston [facility] BASIC METABOLIC PANEL (NA, K , CL, CO2, GLUCOSE, BUN, CREATININE, CA) 2023-02-14 06:49:00 Sigifredo Boston [facility] CBC WITH DIFF 2023-02-14 06:49:00 Sigifredo Boston [facility] MRSA / MSSA SCREEN BY JEREMY DE LEON 2023-02-14 04:26:00 Sigifredo Boston [facility] OCT, OPTIC NERVE - OU - BOTH EYES 2022-12-14 16:27:57 Marlon Bush [facility] AUTOMATED VISUAL FIELD, EXTENDED - OU - BOTH EYES 2022-12-14 16:27:26 Marlon Bush [facility] MEDICATION CORRESPONDENCE 2022-12-08 05:01:00 Doctor Unassigned, [facility] EXTERNAL PROVIDER RECORDS 2022-11-02 05:01:00 Doctor Unassigned, [facility] AUTHORIZATION FOR RELEASE OF PHI 2022-10-30 05:01:00 Doctor Unassigned, [facility] POCT GLUCOSE (AUTOMATED) 2022-10-26 13:13:00 David Tavera [facility] POCT GLUCOSE (AUTOMATED) 2022-10-26 01:19:00 David Tavera [facility] POCT GLUCOSE (AUTOMATED) 2022-10-25 22:09:00 David Tavera [facility] AMMONIA, PLASMA 2022-10-25 17:56:00 Desi Roberts [facility] POCT GLUCOSE (AUTOMATED) 2022-10-25 17:29:00 David Tavera [facility] CT HEAD WO CONTRAST 2022-10-25 16:34:36 Desi Roberts [facility] XR CHEST 1 VW 2022-10-25 14:56:00 Desi Roberts [facility] HEPATIC FUNCTION PANEL ([id number]) (ALB,T.PRO,BILI T,BU/BC,ALT,AST,ALK PHOS) 2022-10-25 14:42:00 Desi Roberts [facility] BASIC METABOLIC PANEL (NA, K , CL, CO2, GLUCOSE, BUN, CREATININE, CA) 2022-10-25 14:42:00 Desi Roberts [facility] VALPROIC ACID, FREE 2022-10-25 14:42:00 Desi Roberts [facility] ETHANOL 2022-10-25 14:42:00 Desi Robertsshmi [facility] URINE DRUG (IMMUNOASSAY) - COMPREHENSIVE DRUG SCREEN 2022-10-25 14:42:00 Desi Robertsshmi [facility] CBC WITH DIFF 2022-10-25 14:42:00 Desi Roberts Nanda [facility] URINALYSIS 2022-10-25 14:42:00 Desi Robertsshmi [facility] EXTRA TUBE URINE CULTURE 2022-10-25 14:42:00 Yancy Singh [facility] PROCALCITONIN 2022-10-25 14:42:00 Desi Robertsshmi [facility] ELECTROENCEPHALOGRAM 2022-10-25 00:00:[address] [facility] MAGG[facility] E TREATMENT FORM 2022-09-01 19:16:42 Doctor Unassigned, [facility] PHYSICIAN ORDERS 2022-05-20 05:01:00 Doctor Unassigned, [facility]atinum [facility] POCT GLUCOSE (AUTOMATED) 2022-05-08 18:06:00 Armen Cox [facility] DUPLEX VENOUS LEGS BILATERAL - BY VASCULAR LAB 2022-05-08 13:35:40 Gauri Smith [facility] POCT GLUCOSE (AUTOMATED) 2022-05-08 13:20:00 Armen Cox [facility] POCT GLUCOSE (AUTOMATED) 2022-05-08 01:07:00 Armen Cox [facility] POCT GLUCOSE (AUTOMATED) 2022-05-07 22:54:00 [facility] BASIC METABOLIC PANEL (NA, K , CL, CO2, GLUCOSE, BUN, CREATININE, CA) 2022-05-07 18:52:00 [facility] 2022-05-07 18:52:00 [facility] ([facility]OMATED) 2022-05-07 13:51:00 [facility] MR BRAIN W WO CONTRAST 2022-05-07 03:11:01 Claudia [facility] POCT GLUCOSE (AUTOMATED) 2022-05-07 01:02:00 [facility] POCT GLUCOSE (AUTOMATED) 2022-05-06 21:51:00 Armen Cox [facility] CBC WITH DIFF 2022-05-06 20:54:00 Ramonita Rodrigues [facility] XR CHEST 1 VW 2022-05-06 20:41:00 Ramonita Rodrigues [facility] POCT GLUCOSE (AUTOMATED) 2022-05-06 17:02:00 [facility] POCT GLUCOSE (AUTOMATED) 2022-05-06 13:47:00 [facility] URINALYSIS 2022-05-06 10:51:00 Desi Robertsshmi [facility] URINE CULTURE 2022-05-06 10:51:00 Desi Robertsshmi [facility] BLOOD CULTURE SCREEN 2022-05-06 05:12:00 Desi Roberts Nanda [facility] GALV ONLY - INFLUENZA A B RS V PCR 2022-05-06 05:12:00 Desi Robertsshmi [facility] POCT GLUCOSE (AUTOMATED) 2022-05-06 01:42:00 [facility] POCT GLUCOSE (AUTOMATED) 2022-05-05 22:38:00 Armen Cox [facility] HB ECG ROUTINE & RHYTHM STRIP 2022-05-05 21:56:24 Dixon Taylorhilary [facility] HEPATIC FUNCTION PANEL ([id number]) (ALB,T.PRO,BILI T,BU/BC,ALT,AST,ALK PHOS) 2022-05-05 19:27:00 Claudia [facility] LIPID PANEL ([id number])(TOTAL CHOLESTEROL, TRIGLYCERIDES, HDL) 2022-05-05 19:27:00 Claudia [facility] VALPROIC ACID, FREE 2022-05-05 19:27:00 Claudia [facility] GLYCOSYLATED HEMOGLOBIN (A1C) 2022-05-05 19:27:00 Claudia [facility] EKG-12 LEAD 2022-05-05 16:11:34 Nando [facility] URINALYSIS 2022-05-05 15:17:00 Nando [facility] CT STROKE PERFUSION W CONTRAST 2022-05-05 15:08:44 Claudia [facility] CT STROKE HEAD WO CONTRAST 2022-05-05 14:45:05 Nando [facility] CT STROKE ANGIOGRAM HEAD 2022-05-05 14:45:05 Nando [facility] CT STROKE ANGIOGRAM NECK 2022-05-05 14:45:05 Nando [facility] TROPONIN I 2022-05-05 14:32:00 Nando [facility] BASIC METABOLIC PANEL (NA, K , CL, CO2, GLUCOSE, BUN, CREATININE, CA) 2022-05-05 14:32:00 Nando [facility] CBC WITHOUT DIFF 2022-05-05 14:32:00 Nando [facility] PROTHROMBIN TIME / INR 2022-05-05 14:32:00 Nando [facility] ACTIVATED PARTIAL THRMPLAS BOUBACAR 2022-05-05 14:32:00 Nando [facility] EXTRA TUBE LAV 2022-05-05 14:32:00 Ashly Collier [facility] CONSENT/REFUSAL FOR DIAGNOSI S AND TREATMENT 2022-05-05 14:18:31 Doctor Unassigned, Platinum [facility] ELECTROENCEPHALOGRAM 2022-05-05 00:00:00 Christy Taylor [facility] MAGNESIUM 2022-04-06 08:15:00 Eljoseem [facility] BASIC METABOLIC PANEL (NA, K , CL, CO2, GLUCOSE, BUN, CREATININE, CA) 2022-04-06 08:15:00 Elnaeem, [facility] CBC WITH DIFF 2022-04-06 08:15:00 Elnaeem [facility] MAGNESIUM 2022-04-03 09:15:00 Elnaeem, [facility] BASIC METABOLIC PANEL (NA, K , CL, CO2, GLUCOSE, BUN, CREATININE, CA) 2022-04-03 09:15:00 Elnaeem, [facility] CBC WITH DIFF 2022-04-03 09:15:00 Elnaeem, [facility] BLOOD CULTURE SCREEN 2022-04-02 23:26:00 Elnaeem, [facility] XR CHEST 1 VW 2022-04-02 20:36:00 Elnaeem [facility] URINALYSIS 2022-04-02 20:25:00 Elnaeem, [facility] BLOOD CULTURE SCREEN 2022-04-02 20:12:00 Elnaeem, [facility] XR CHEST 2 VW 2022-04-01 15:06:00 Christy Taylor [facility] CBC WITH DIFF 2022-04-01 11:05:00 Joyce Aguayo [facility] MISCELLANEOUS SEND OUT TEST 2022-04-01 11:05:[address] [facility] ANTICARDIOLIPIN ANTIBODIES 2022-04-01 10:39:[address] [facility] ANTI-B2 GLYCOPROTEIN I AB 2022-04-01 10:39:[address] [facility] MR BRAIN WO CONTRAST 2022-03-31 23:47:22 David Tavera [facility] COVID-19 (ID NOW RAPID TESTING) 2022-03-31 22:10:00 Keturah Patricia [facility] LAB ONLY COVID INTERPRETATION 2022-03-31 22:10:00 Keturah Patricia [facility] IMMUNOGLOBULIN G A M PANEL 2022-03-31 18:06:00 Keith Lauren [facility] BASIC METABOLIC PANEL (NA, K , CL, CO2, GLUCOSE, BUN, CREATININE, CA) 2022-03-31 18:06:00 Joyce Aguayo [facility] CBC WITH DIFF 2022-03-31 18:06:00 Dixon Taylorhilary [facility] ANTI-NUCLEAR ANTIBODY SCREEN 2022-03-31 18:06:00 [facility]ilary [facility] [place] ANTI-SSA(RO) 2022-03-31 18:06:00 Keith Lauren [facility] ANTI-NUCLEAR ANTIBODY-PATHOLOGIST INTERPRETATION 2022-03-31 18:06:00 Dixon Taylorhilary [facility] XR CHEST 1 VW 2022-03-31 16:15:00 Keturah Patricia [facility] URINE DRUG (IMMUNOASSAY) - COMPREHENSIVE DRUG SCREEN 2022-03-31 15:52:00 Keturah Patricia [facility] URINALYSIS 2022-03-31 15:52:00 Akin Wood [facility] AMMONIA, PLASMA 2022-03-31 15:41:00 Keturah Patricia [facility] C-REACTIVE PROTEIN 2022-03-31 15:41:00 Keturah Patricia [facility] FREE T4 2022-03-31 15:41:00 David Tavera [facility] VALPROIC ACID, TOTAL 2022-03-31 15:41:00 Christy Taylor [facility] VALPROIC ACID, FREE 2022-03-31 15:41:00 Dixon Taylorhilary [facility] CBC WITHOUT DIFF 2022-03-31 15:41:00 Akin Wood [facility] SEDIMENTATION RATE 2022-03-31 15:41:00 Keturah Patricia [facility] PROTHROMBIN TIME / INR 2022-03-31 15:41:00 Akin Wood [facility] ACTIVATED PARTIAL THRMPLAS BOUBACAR 2022-03-31 15:41:00 Akin Wood [facility] HB ECG ROUTINE & RHYTHM STRIP 2022-03-31 15:35:57 Akin Wood [facility] CT STROKE ANGIOGRAM HEAD 2022-03-31 15:32:41 Akin Wood [facility] CT STROKE ANGIOGRAM NECK 2022-03-31 15:32:41 Akin Wood [facility] CT STROKE PERFUSION W CONTRAST 2022-03-31 15:32:41 Christy Taylor [facility] PHOSPHORUS 2022-03-31 15:13:00 David Tavera [facility] CREATINE KINASE 2022-03-31 15:13:00 David Tavera [facility] MAGNESIUM 2022-03-31 15:13:00 David Tavera [facility] TROPONIN I 2022-03-31 15:13:00 Akin Wood [facility] TRIIODOTHYRONINE 2022-03-31 15:13:00 David Tavera [facility] THYROID STIMULATING HORMONE 2022-03-31 15:13:00 Christy Taylor [facility] BASIC METABOLIC PANEL (NA, K , CL, CO2, GLUCOSE, BUN, CREATININE, CA) 2022-03-31 15:13:00 Akin Wood [facility] HEPATITIS B SURFACE ANTIGEN 2022-03-31 15:13:00 Keith Lauren [facility] HEPATITIS B CORE ANTIBODY IGM 2022-03-31 15:13:00 Keith Lauren [facility] CT STROKE HEAD WO CONTRAST 2022-03-31 15:08:30 Akin Wood [facility] CONSENT/REFUSAL FOR DIAGNOSI S AND TREATMENT 2022-03-31 14:47:03 Doctor Unassigned, Platinum [facility] ELECTROENCEPHALOGRAM 2022-03-31 00:00:00 Claudia Christy [facility] OPHTHALMOLOGY DIAGNOSTIC TEST 2022-03-23 05:01:00 Doctor Unassigned, Platinum [facility] OU VISUAL FIELD EXAM EXTENDE D (30-2), BOTH EYES 2022-03-23 00:00:00 Srinivas Miguel [facility] Encounters Start Date/Time End Date/Time Encounter Type Admission Type Attending [facility] Care Facility Care Department Encounter ID Source 2021-08-19 13:54:[address] [facility] [id number] [facility] 2021-08-19 13:53:[address] [facility] [id number] [facility] 2021-08-19 12:20:[address] [facility] [id number] [facility] 2021-08-19 11:55:[address] [facility] [id number] [facility] 2021-08-19 10:59:[address] [facility] [id number] [facility] 2024-06-01 09:00:00 2024-06-01 09:00:00 Outpatient Vamsi VIEYRA [facility] [id number] [facility] 2023-12-08 00:00:00 2023-12-08 00:00:00 Outpatient ELIN HASTINGS [facility] [id number] [facility] 2023-12-02 08:00:00 2023-12-02 13:30:00 Nurse Visit 2, Kalyan [facility] 1.2.840.114 350.1.13.10 4.2.7.2.686 [id number] [facility] 2023-12-02 08:00:00 2023-12-02 08:00:00 Outpatient R ELIN VIEYRA [facility] [id number] [facility] 2023-11-25 09:30:00 2023-11-25 09:45:00 Outbound Telemarketer Visit Pcp-Lab Elin Vieyra [facility] 1.2.840.114 350.1.13.10 4.2.7.2.686 [id number] [facility] 2023-11-25 09:00:00 2023-11-25 09:24:14 Outpatient R AZALIA [facility] [id number] [facility] 2023-11-25 09:00:00 2023-11-25 09:24:14 Office Visit Azalia [facility] 1.2.840.114 350.1.13.10 4.2.7.2.686 [id number] [facility] 2023-11-04 09:00:00 2023-11-04 09:00:00 Outpatient R [facility] [id number] [facility] 2023-09-06 00:00:00 2023-09-06 00:00:00 Kike Conner [facility] 1.2.840.114 350.1.13.10 4.2.7.2.686 [id number] [facility] 2023-08-16 08:45:00 2023-08-16 10:38:18 Outpatient R MARLON BUSH [facility] [id number] [facility] 2023-08-16 08:45:00 2023-08-16 10:38:18 Office Visit Marlon Bush [facility] [employer] [facility]. 1.2.840.114 350.1.13.10 4.2.7.2.686 [id number] [facility] 2023-07-26 15:30:00 2023-07-26 15:37:08 Outpatient R JUDE GONZALEZ [facility] [id number] [facility] 2023-07-26 15:30:00 2023-07-26 15:37:08 Office Visit Jude Gonzalez [facility] 1.2.840.114 350.1.13.10 4.2.7.2.686 [id number] [facility] 2023-07-26 00:00:00 2023-07-26 00:00:00 Orders Only Doctor Unassigned, Platinum [facility] 1.2840.114 350.1.13.10 4.2.7.2.686 [id number] [facility] 2023-06-17 00:00:00 2023-06-17 00:00:00 Telephone Elin Vieyra [facility] 1.2840.114 350.1.13.10 4.2.7.2.686 [id number] [facility] 2023-06-17 00:00:00 2023-06-17 00:00:00 [facility] 1.2840.114 350.1.13.10 4.2.7.2.686 [id number] [facility] 2023-06-14 09:30:00 2023-06-14 10:48:42 Outpatient R MARLON BUSH [facility] [id number] [facility] 2023-06-14 09:30:00 2023-06-14 10:48:42 Office Visit Marlon Bush [facility] [employer] [facility]. 1.2.840.114 350.1.13.10 4.2.7.2.686 [id number] [facility] 2023-06-14 00:00:00 2023-06-14 00:00:00 Orders Only Doctor Unassigned, Platinum [facility] 1.2.840.114 350.1.13.10 4.2.7.2.686 [id number] [facility] 2023-06-03 08:45:00 2023-06-03 13:54:05 Outpatient R AZALIA [facility] [id number] [facility] 2023-06-03 08:45:00 2023-06-03 13:54:05 Nurse Visit 4, [facility] 1.2.840.114 350.1.13.10 4.2.7.2.686 [id number] [facility] 2023-06-02 00:00:00 2023-06-02 00:00:00 Telephone Ricannie [facility] 1.2.840.114 350.1.13.10 4.2.7.2.686 [id number] [facility] 2023-05-27 16:00:00 2023-05-27 16:15:00 Outbound Telemarketer [facility] 1.2.840.114 350.1.13.10 4.2.7.2.686 [id number] [facility] 2023-05-27 15:00:00 2023-05-27 15:45:45 Outpatient R AZALIA [facility] [id number] [facility] 2023-05-27 15:00:00 2023-05-27 15:45:45 Office Visit Azalia [facility] 1.2.840.114 350.1.13.10 4.2.7.2.686 [id number] [facility] 2023-05-27 00:00:00 2023-05-27 00:00:00 Orders Only Doctor Unassigned, Platinum [facility] 1.2.840.114 350.1.13.10 4.2.7.2.686 [id number] [facility] 2023-03-22 00:00:00 2023-03-22 00:00:00 Transition of Care Jewell MckeonIno RAY JONIROMULO 1.2.840.114 350.1.13.10 4.2.7.2.686 [id number] [facility] 2023-03-20 17:18:00 2023-03-21 17:40:00 Outpatient JEFFERY WALLSAY [facility] YASEMIN [id number] [facility] 2023-03-20 17:18:00 2023-03-21 17:40:00 Hospital Joan Christie, Maury Obando, [facility] 1.840.114 350.1.13.10 4.2.7.2.686 [id number] [facility] 2023-03-03 00:00:00 2023-03-03 00:00:00 Orders Only Doctor Unassigned, Platinum [facility] 1.2.840.114 350.1.13.10 4.2.7.2.686 [id number] [facility] 2023-02-17 00:00:00 2023-02-17 00:00:00 Transition of Care Leslie Palm XIOMARA RAY JONIROMULO 1.2.840.114 350.1.13.10 4.2.7.2.686 [id number] [facility] 2023-02-17 00:00:00 2023-02-17 00:00:00 Telephone Angela German [facility] 1.2840.114 350.1.13.10 4.2.7.2.686 [id number] [facility] 2023-02-13 22:56:00 2023-02-16 11:59:00 Inpatient U [facility] YASEMIN [id number] [facility] 2023-02-13 22:56:00 2023-02-16 11:59:00 Hospital Encounter Ludy, Sigifredo Zurita, Mari Estrada [facility]) 1..114 350.1.13.10 4.2.7.2.686 [id number] [facility] 2023-01-18 15:15:00 2023-01-18 15:30:00 Outbound Telemarketer Visit Pcp-Lab Monserrat [facility] 1..114 350.1.13.10 4.2.7.2.686 [id number] [facility] 2023-01-18 13:30:00 2023-01-18 15:02:55 Outpatient [facility] [id number] [facility] 2023-01-18 13:30:00 2023-01-18 15:02:55 Office Visit Monserrat [facility] 1..114 350.1.13.10 4.2.7.2.686 [id number] [facility] 2022-12-14 10:00:00 2022-12-14 11:36:44 Outpatient R MARLON BUSH [facility] [id number] [facility] 2022-12-14 10:00:00 2022-12-14 11:36:44 Office Visit Marlon Bush [facility] [employer] [facility]. ..114 350.1.13.10 4.2.7.2.686 [id number] [facility] 2022-12-08 00:00:00 2022-12-08 00:00:00 Orders Only Doctor Unassigned, Platinum [facility] 1.2.840.114 350.1.13.10 4.2.7.2.686 [id number] [facility] 2022-12-01 09:15:00 2022-12-01 15:27:23 Outpatient R ELIN VIEYRA [facility] [id number] Jaz[facility] 2022-12-01 09:15:00 2022-12-01 15:27:23 Nurse Visit 3, Arina-Vl Infusion Chair Elin Vieyra [facility] 1.840.114 350.1.13.10 4.2.7.2.686 [id number] [facility] 2022-11-02 00:00:00 2022-11-02 00:00:00 Orders Only Doctor Unassigned, Platinum [facility] 1.840.114 350.1.13.10 4.2.7.2.686 [id number] [facility] 2022-10-30 00:00:00 2022-10-30 00:00:00 Orders Only Doctor Unassigned, Platinum [facility] 1.2840.114 350.1.13.10 4.2.7.2.686 [id number] [facility] 2022-10-27 00:00:00 2022-10-27 00:00:00 Letter (Out) Clinic, [facility] Neurology Resident [facility] 1.84.114 350.1.13.10 4.2.7.2.686 [id number] [facility] 2022-10-25 08:33:00 2022-10-26 15:15:00 Outpatient U YANCY MERINO JORGE [facility] [id number] [facility] 2022-10-25 08:33:00 2022-10-26 15:15:00 Hospital Encounter MasDavid aguirre [facility] 1.2.840.114 350.1.13.10 4.2.7.2.686 [id number] [facility] 2022-10-26 00:00:00 2022-10-26 00:00:00 Patient Secure Msg Doctor Unassigned, Platinum [facility] 1.2.840.114 350.1.13.10 4.2.7.2.686 [id number] [facility] 2022-09-01 00:00:00 2022-09-01 00:00:00 Orders Only Doctor Unassigned, Platinum [facility] 1.2.840.114 350.1.13.10 4.2.7.2.686 [id number] [facility] 2022-08-17 00:00:00 2022-08-17 00:00[facility] 1.2.840.114 350.1.13.10 4.2.7.2.686 [id number] [facility] 2022-08-16 00:00:00 2022-08-16 00:00:00 Telephone Ashly Villanueva [facility] 1.2.840.114 350.1.13.10 4.2.7.2.686 [id number] [facility] 2022-08-12 11:00:00 2022-08-12 11:00:00 Outpatient R ASHLY VILLANUEVA [facility] [id number] [facility] 2022-08-12 00:00:00 2022-08-12 00:00:00 Telephone [facility] 1.2.840.114 350.1.13.10 4.2.7.2.686 [id number] [facility] 2022-08-06 00:00:00 2022-08-06 00:00:00 Telephone Marie Zafar [facility] 1.2.840.114 350.1.13.10 4.2.7.2.686 [id number] [facility] 2022-07-22 00:00:00 2022-07-22 00:00:00 Telephone Demetrio Rinaldi [facility] 1.2.840.114 350.1.13.10 4.2.7.2.686 [id number] [facility] 2022-07-06 10:00:00 2022-07-06 10:00:00 Outpatient MARLON NIELSON [facility] [id number] [facility] 2022-07-01 08:30:00 2022-07-01 08:30:00 Outpatient ELIN HASTINGS [facility] [id number] [facility] 2022-06-10 10:00:00 2022-06-10 12:36:43 Outpatient ASHLY DANIELS [facility] [id number] [facility] 2022-06-10 10:00:00 2022-06-10 12:36:43 Office Visit Clinic, Neurology Continuity Ashly Villanueva [facility] PAVRADHA 1.2.840.114 350.1.13.10 4.2.7.2.686 [id number] [facility] 2022-06-10 10:00:00 2022-06-10 10:00:00 Outpatient Vamsi [facility] [id number] [facility] 2022-06-03 10:00:00 2022-06-03 15:30:00 Nurse Visit 3, Arina-Vl Infusion Chair Elin Vieyra [facility] 1.2.840.114 350.1.13.10 4.2.7.2.686 [id number] [facility] 2022-06-03 10:00:00 2022-06-03 10:00:00 Outpatient R AZALIA [facility] [id number] [facility] 2022-05-20 10:00:00 2022-05-20 15:30:00 Nurse Visit 4, Kalyan Infusion Chair Az[facility] 1.0.114 350.1.13.10 4.2.7.2.686 [id number] [facility] 2022-05-20 10:00:00 2022-05-20 10:00:00 Outpatient R AZALIA [facility] [id number] [facility] 2022-05-20 00:00:00 2022-05-20 00:00:00 Telephone Azalia [facility] 1..114 350.1.13.10 4.2.7.2.686 [id number] [facility] 2022-05-20 00:00:00 2022-05-20 00:00:00 Orders Only Doctor Unassigned, Platinum [facility] 1.114 350.1.13.10 4.2.7.2.686 [id number] [facility] 2022-05-05 09:19:00 2022-05-08 15:58:00 Outpatient X ARMEN COX [facility] [id number] [facility] 2022-05-05 09:19:00 2022-05-08 15:58:00 Emergency KaAshly hightower Anand Vilaschandr a [facility] 1..114 350.1.13.10 4.2.7.2.686 [id number] [facility] 2022-05-05 00:00:00 2022-05-05 00:00:00 Telephone Azalia [facility] 1.114 350.1.13.10 4.2.7.2.686 [id number] [facility] 2022-04-19 00:00:00 2022-04-19 00:00:00 Patient Secure Keith Borja [facility] 1.114 350.1.13.10 4.2.7.2.686 [id number] [facility] 2022-04-12 00:00:00 2022-04-12 00:00:00 Transition of Care PalmLeslie LUIS EDUARDOIno [facility] 1.114 350.1.13.10 4.2.7.2.686 [id number] [facility] 2022-03-31 09:52:00 2022-04-09 23:12:00 [facility] [id number] [facility] 2022-03-31 09:52:00 2022-04-09 23:12:00 Hospital Encounter Keturah Patricia, David LariosElin [facility] .114 350.1.13.10 4.2.7.2.686 [id number] [facility] 2022-03-23 10:15:00 2022-03-23 13:08:32 Outpatient R MARLON BUSH [facility] [id number] [facility] 2022-03-23 10:15:00 2022-03-23 13:08:32 Office Visit Marlno Bush [facility] Zero[employer] BLDG. ..114 350.1.13.10 4.2.7.2.686 [id number] [facility] 2022-03-23 00:00:00 2022-03-23 00:00:00 Orders Only Doctor Unassigned, Platinum [facility] 1.114 350.1.13.10 4.2.7.2.686 [id number] [facility] 2022-03-23 00:00:00 2022-03-23 00:00:00 Telephone Kay [facility] 1.840.114 350.1.13.10 4.2.7.2.686 [id number] [facility] 2022-03-11 10:00:00 2022-03-11 11:00:00 [facility] 1.84.114 350.1.13.10 4.2.7.2.686 [id number] [facility] 2022-03-11 10:00:00 2022-03-11 10:00:00 Outpatient ASHLY DANIELS [facility] [id number] [facility] 2022-03-11 10:00:00 2022-03-11 10:00:00 Outpatient R KAY [facility] [id number] [facility] 2022-03-11 10:00:00 2022-03-11 10:00:00 Outpatient ASHLY DANIELS [facility] [id number] [facility] 2022-03-10 13:15:00 2022-03-10 13:30:00 Office Visit Adelso Torres [facility] 1.840.114 350.1.13.10 4.2.7.2.686 [id number] [facility] 2022-03-10 13:15:00 2022-03-10 13:15:00 Outpatient ADELSO RAMOS [facility] [id number] [facility] 2022-03-10 13:15:00 2022-03-10 13:15:00 Outpatient ADELSO RAMOS [facility] [id number] [facility] 2022-03-10 13:15:00 2022-03-10 13:15:00 Outpatient ADELSO RAMOS [facility] [id number] [facility] 2022-03-05 00:00:00 2022-03-05 00:00:00 Outpatient [facility] [id number] [facility] 2022-03-05 00:00:00 2022-03-05 00:00:00 Orders Only Doctor Unassigned, Platinum [facility] 1.20.114 350.1.13.10 4.2.7.2.686 [id number] [facility] 2022-03-05 00:00:00 2022-03-05 00:00:00 Patient Secure Msg Doctor Unassigned, Platinum [facility] 1.20.114 350.1.13.10 4.2.7.2.686 [id number] [facility] 2022-03-02 00:00:00 2022-03-02 00:00:00 Telephone Keith Upton [facility] 1..114 350.1.13.10 4.2.7.2.686 [id number] [facility] 2022-02-26 13:10:00 2022-02-26 13:26:22 Outpatient ADELSO RAMOS [facility] [id number] [facility] 2022-02-26 13:10:00 2022-02-26 13:26:22 Office Visit Clinic, Neurosurger y Resident Adelso Torres [facility] 1..114 350.1.13.10 4.2.7.2.686 [id number] [facility] 2022-02-26 13:10:00 2022-02-26 13:26:22 Outpatient ADELSO RAMOS [facility] [id number] [facility] 2022-02-26 13:10:00 2022-02-26 13:26:22 Outpatient R ADELSO TORRES [facility] [id number] [facility] 2022-02-22 00:00:00 2022-02-22 00:00:00 Transition of Care Alena Sarmiento 1.2.840.114 350.1.13.10 4.2.7.2.686 [id number] [facility] 2022-02-02 10:41:00 2022-02-19 20:35:00 Inpatient X DAVID TAVERA [facility] [id number] [facility] 2022-02-02 10:41:00 2022-02-19 20:35:00 Hospital Encounter Clement Bell, Aggie Young, Adelso Hung Todd S [facility] 1.2.840.114 350.1.13.10 4.2.7.2.686 [id number] [facility] 2022-02-12 09:00:00 2022-02-12 11:46:00 [facility] 1.2.840.114 350.1.13.10 4.2.7.2.686 [id number] [facility] 2022-02-02 00:00:00 2022-02-02 00:00:00 Travel 1.2.840.1 [id number] [id number] .8 1.2.840.114 350.1.13.10 4.2.7.3.698 [id number] [facility] 2020-08-08 00:00:00 2020-08-08 00:00:00 (TEL) STLMLC STLMLC [id number] [facility] 2020-08-07 00:00:00 2020-08-07 00:00:00 OFFICE VISIT EST PT LEVEL 3 STLMLC STLMLC [id number] [facility] 2020-05-08 00:00:00 2020-05-08 00:00:00 OFFICE VISIT ESTAB PT LEVEL 2 STLMLC STLMLC [id number] [facility] 2020-04-17 00:00:00 2020-04-17 00:00:00 OFFICE VISIT EST PT LEVEL [id number] [facility] 2020-04-11 18:06:00 2020-04-11 21:28:00 Emergency Reid Myrna [facility] 1.2.840.114 350.1.13.10 4.2.7.2.686 [id number] [facility] 2020-04-11 17:49:00 2020-04-11 17:49:00 Emergency X ARMENDARIZMYRNA [facility] ERT [id number] [facility] 2020-02-27 17:45:00 2020-02-27 17:45:[address] [facility] [facility] [place] [facility] [id number] [facility] 2020-02-05 16:20:00 2020-02-05 16:20:00 [facility] [place] [facility] [id number] [facility] 2020-01-30 13:41:00 2020-01-30 13:41:00 [facility] [place] [facility] [id number] [facility] 2019-09-21 11:40:00 2019-09-21 11:40:00 [facility] [place] [facility] [id number] [facility] 2019-08-03 11:40:00 2019-08-03 11:40:00 [facility] [place] [facility] [id number] [facility] 2019-05-23 10:59:00 2019-05-23 10:59:00 [facility] [place] [facility] [id number] [facility] 2019-01-22 16:20:00 2019-01-22 16:20:00 [facility] [facility] [facility] [address] [facility] [id number] [facility] 2018-07-27 11:15:00 2018-07-27 11:15:00 [facility] [address] [facility] [id number] [facility] 2018-07-05 15:30:00 2018-07-05 15:30:00 [facility] [place] [facility] [id number] [facility] 2017-12-21 16:00:00 2017-12-21 16:00:00 [facility] [place] [facility] [id number] [facility] 2017-10-27 16:00:00 2017-10-27 16:00:00 [facility] [place] [facility] [id number] [facility] 2017-10-18 16:32:00 2017-10-18 16:32:00 [facility] [address] [facility] [id number] [facility] 2017-10-11 15:30:00 2017-10-11 15:30:00 [facility] [place] [facility] [id number] [facility] 2017-10-11 08:34:00 2017-10-11 08:34:00 [facility] [place] [facility] [id number] [facility] Results Test Description Test Time Test Comments Results Result Co mments Source [facility] MET[facility]OLIC PAN[facility] (61948)2023-06-03 15:46:58* Test Item Value Reference Range Interpretation Comme nts NA (test code = 5141479140) 140 mmol/L 135-145 K (test code = 2313496737) 4.4 mmol/L 3.5-5.0 Slight hemolysis CL (test code = 1955888740) 103 mmol/L 98-108 CO2 TOTAL (test code = 6717077545) 29 mmol/L 23-31 AGAP (test code = 1202800024) 8 2-16 BUN (test code = 7485060004) 15 mg/dL 7-23 Slight hemolysis GLUCOSE (test code = 0252598493) 119 mg/dL 70-110 H CREATININE (test code = 1353022924) 0.71 mg/dL 0.60-1.25 TOTAL BILI (test code = 6163590033) 0.7 mg/dL 0.1-1.1 CALCIUM (test code = 5957288337) 9.2 mg/dL 8.6-10.6 T PROTEIN (test code = 8117780989) 6.9 g/dL 6.3-8.2 ALBUMIN (test code = 2297023844) 4.1 g/dL 3.5-5.0 ALK PHOS (test code = 2005515077) 68 U/L 34-122 Slight hemolysis ALTv (test code = 1742-6) 25 U/L 5-50 AST(SGOT) (test code = 7527931404) 34 U/L 13-40 Slight hemolysis eGFR (test code = 09976-2) 111.8 mL/min/1.73m2 CKD-EPI eGFR (2020). Assuming creatinine has been stable day-to-day for at least three months, the eGFR indicates Category G1 (>= 90 mL/min/1.73 m2) Lab Interpretation (test code = 03993-1) Abnormal [facility]. METABOLIC PANEL (32103)2023-06-03 15:46:58* Test Item Value Reference Range Interpretation Comme nts NA (test code = 4555301017) 140 mmol/L 135-145 K (test code = 6759023265) 4.4 mmol/L 3.5-5.0 Slight hemolysis CL (test code = 7526081357) 103 mmol/L 98-108 CO2 TOTAL (test code = 9279461701) 29 mmol/L 23-31 AGAP (test code = 5809567799) 8 2-16 BUN (test code = 8852748124) 15 mg/dL 7-23 Slight hemolysis GLUCOSE (test code = 6903411027) 119 mg/dL 70-110 H CREATININE (test code = 7245609246) 0.71 mg/dL 0.60-1.25 TOTAL BILI (test code = 1437685748) 0.7 mg/dL 0.1-1.1 CALCIUM (test code = 2066812549) 9.2 mg/dL 8.6-10.6 T PROTEIN (test code = 3311979270) 6.9 g/dL 6.3-8.2 ALBUMIN (test code = 8163614140) 4.1 g/dL 3.5-5.0 ALK PHOS (test code = 8780604732) 68 U/L 34-122 Slight hemolysis ALTv (test code = 1742-6) 25 U/L 5-50 AST(SGOT) (test code = 9543665580) 34 U/L 13-40 Slight hemolysis eGFR (test code = 46628-9) 111.8 mL/min/1.73m2 CKD-EPI eGFR (2020). Assuming creatinine has been stable day-to-day for at least three months, the eGFR indicates Category G1 (>= 90 mL/min/1.73 m2) Lab Interpretation (test code = 14707-9) Abnormal [facility] WITH [id number] 15:33:35* Test Item Value Reference Range Interpretation Comme nts WBC (test code = 6690-2) 5.77 See_Comment [Automated Casenet] The system which generated this result transmitted reference range: 4.20 - 10.70 10*3/?L. The reference range was not used to interpret this result as normal/abnormal. RBC (test code = 789-8) 4.40 See_Comment [Automated Casenet] The system which generated this result transmitted [...] 32.6 g/dL 31.2-35.0 RDW-SD (test code = 54026-8) 47.2 fL 38.5-51.6 RDW-CV (test code = 788-0) 14.7 % 12.1-15.4 PLT (test code = 777-3) 234 See_Comment [Automated messa ge] The system which generated this result transmitted reference range: 150 - 328 10*3/?L. The reference range was not used to interpret this result as normal/abnormal. MPV (test code = 88536-1) 10.7 fL 9.8-13.0 NRBC/100 WBC (test code = 1506582455) 0.0 See_Comment [Automated me ssage] The system which generated this result transmitted reference range: 0.0 - 10.0 /100 WBCs. The reference range was not used to interpret this result as normal/abnormal. NRBC x10^3 (test code = 6161040064) See_Comment [Automated me ssage] The system which generated this result transmitted reference range: 10*3/?L. The reference range was not used to interpret this result as normal/abnormal. GRAN MAT (NEUT) % (test code = 770-8) 61.9 % IMM GRAN % (test code = 4003628472) 0.50 % LYMPH % (test code = 736-9) 23.2 % MONO % (test code = 5905-5) 12.0 % EOS % (test code = 713-8) 1.7 % BASO % (test code = 706-2) 0.7 % GRAN MAT x10^3(ANC) (test code = 9114481525) 3.57 10*3/uL 1.99-6.95 IMM GRAN x10^3 (test code = 2393717748) 0.03 10*3/uL 0.00-0.06 LYMPH x10^3 (test code = 731-0) 1.34 10*3/uL 1.09-3.23 MONO x10^3 (test code = 742-7) 0.69 10*3/uL 0.36-1.02 EOS x10^3 (test code = 711-2) 0.10 10*3/uL 0.06-0.53 BASO x10^3 (test code = 704-7) 0.04 10*3/uL 0.01-0.09 [facility] WITH [id number] 15:33:35* Test Item Value Reference Range Interpretation Comme nts WBC (test code = 6690-2) 5.77 See_Comment [Automated messa ge] The system which generated this result transmitted reference range: 4.20 - 10.70 10*3/?L. The reference range was not used to interpret this result as normal/abnormal. RBC (test code = 789-8) 4.40 See_Comment [Automated messa ge] The system which [...] 32.6 g/dL 31.2-35.0 RDW-SD (test code = 16441-1) 47.2 fL 38.5-51.6 RDW-CV (test code = 788-0) 14.7 % 12.1-15.4 PLT (test code = 777-3) 234 See_Comment [Automated messa ge] The system which generated this result transmitted reference range: 150 - 328 10*3/?L. The reference range was not used to interpret this result as normal/abnormal. MPV (test code = 88560-0) 10.7 fL 9.8-13.0 NRBC/100 WBC (test code = 0355454839) 0.0 See_Comment [Automated me ssage] The system which generated this result transmitted reference range: 0.0 - 10.0 /100 WBCs. The reference range was not used to interpret this result as normal/abnormal. NRBC x10^3 (test code = 4568825209) See_Comment [Automated me ssage] The system which generated this result transmitted reference range: 10*3/?L. The reference range was not used to interpret this result as normal/abnormal. GRAN MAT (NEUT) % (test code = 770-8) 61.9 % IMM GRAN % (test code = 2796235947) 0.50 % LYMPH % (test code = 736-9) 23.2 % MONO % (test code = 5905-5) 12.0 % EOS % (test code = 713-8) 1.7 % BASO % (test code = 706-2) 0.7 % GRAN MAT x10^3(ANC) (test code = 2796176207) 3.57 10*3/uL 1.99-6.95 IMM GRAN x10^3 (test code = 1946421676) 0.03 10*3/uL 0.00-0.06 LYMPH x10^3 (test code = 731-0) 1.34 10*3/uL 1.09-3.23 MONO x10^3 (test code = 742-7) 0.69 10*3/uL 0.36-1.02 EOS x10^3 (test code = 711-2) 0.10 10*3/uL 0.06-0.53 BASO x10^3 (test code = 704-7) 0.04 10*3/uL 0.01-0.09 [facility] [id number] 20:24:36* Test Item Value Reference Range Interpretation Comme nts CRP (test code = 7571324454) 3.2 mg/dL <=0.8 H Lab Interpretation (test cod e = 71233-8) Abnormal [facility] WestFERRITIN [id number] 06:59:28* Test Item Value Reference Range Interpretation Comme nts FERRITIN (test code = 1220296610) 153.0 ng/mL 18.0-464.0 STANFORD (test code = STANFORD) Biotin has been reported to cause a negative bias, interpret results relative to patient's use of biotin. Lab Interpretation (test code = 29298-0) Normal [facility]PROCALCITONIN2023-08-28 06:52:56* Test Item Value Reference Range Interpretation Comme nts Procalcitonin (test code = 1515152540) 0.03 ng/mL <=0.07 STANFORD (test code = [...] lung abscess/empyema. For further information please refer to:[email or web address] Lab Interpretation (test code = 57497-7) Normal [facility] WestLactic Acid Whole [id number] 03:05:13* Test Item Value Reference Range Interpretation Comme nts LACTIC ACID (test code = 5987446955) 1.18 mmol/L 0.50-2.20 QUES Lab Interpretation (test cod e = 97993-5) Normal [facility] WestVALPROIC ACID, [id number] 01:18:26* Test Item Value Reference Range Interpretation Comme nts Valproic Acid, Free (test code = 7450902675) 13.4 ug/mL 4.0-15.0 STANFORD (test code = STANFORD) Toxic Range: ? Greater than 15 ug/mL Test developed and characteristics determined by [facility] Laboratory Services. Lab Interpretation (test code = 28223-6) Normal [facility]. METABOLIC PANEL (93011)2023-03-20 23:46:14* Test Item Value Reference Range Interpretation Comme nts NA (test code = 0382332057) 138 mmol/L 135-145 K (test code = 6362976766) 3.9 mmol/L 3.5-5.0 CL (test code = 8766613994) 100 mmol/L 98-108 CO2 TOTAL (test code = 3836935327) 27 mmol/L 23-31 AGAP (test code = 1164840352) 11 2-16 BUN (test code = 9095852915) 13 mg/dL 7-23 GLUCOSE (test code = 9924111777) 82 mg/dL 70-110 CREATININE (test code = 5621478332) 0.90 mg/dL 0.60-1.25 TOTAL BILI (test code = 0810704570) 0.5 mg/dL 0.1-1.1 CALCIUM (test code = 7679114065) 8.9 mg/dL 8.6-10.6 T PROTEIN (test code = 5372601370) 6.6 g/dL 6.3-8.2 ALBUMIN (test code = 3674636461) 4.1 g/dL 3.5-5.0 ALK PHOS (test code = 5105292205) 67 U/L 34-122 ALTv (test code = 1742-6) 42 U/L 5-50 AST(SGOT) (test code = 7998205071) 40 U/L 13-40 eGFR (test code = 0224710755) 89.3 mL/min/1.73m2 STANFORD (test code = STANFORD) [...] or urine or abnormalities in imaging tests). [facility]:46[facility]* Test Item Value Reference Range Interpretation Comme nts MAGNESIUM (test code = 1119805189) 1.8 mg/dL 1.7-2.4 Lab Interpretation (test cod e = 11473-1) Normal [facility] WITH [id number] 23:31:14* Test Item Value Reference Range Interpretation Comme nts WBC (test code = 6690-2) 5.93 See_Comment [Automated Contemporary Analysisa ge] The system which generated this result transmitted reference range: 4.20 - 10.70 10*3/?L. The reference range was not used to interpret this result as normal/abnormal. RBC (test code = 789-8) 4.44 See_Comment [Automated Contemporary Analysisa ge] The system which generated this result [...] 32.8 g/dL 31.2-35.0 RDW-SD (test code = 98904-4) 47.8 fL 38.5-51.6 RDW-CV (test code = 788-0) 14.9 % 12.1-15.4 PLT (test code = 777-3) 209 See_Comment [Automated messa ge] The system which generated this result transmitted reference range: 150 - 328 10*3/?L. The reference range was not used to interpret this result as normal/abnormal. MPV (test code = 16985-1) 9.9 fL 9.8-13.0 NRBC/100 WBC (test code = 2995955247) 0.0 See_Comment [Automated Quickflix ssage] The system which generated this result transmitted reference range: 0.0 - 10.0 /100 WBCs. The reference range was not used to interpret this result as normal/abnormal. NRBC x10^3 (test code = 0449526939) See_Comment [Automated messa ge] The system which generated this result transmitted reference range: 10*3/?L. The reference range was not used to interpret this result as normal/abnormal. GRAN MAT (NEUT) % (test code = 770-8) 60.8 % IMM GRAN % (test code = 9267724741) 0.70 % LYMPH % (test code = 736-9) 18.4 % MONO % (test code = 5905-5) 18.7 % EOS % (test code = 713-8) 0.7 % BASO % (test code = 706-2) 0.7 % GRAN MAT x10^3(ANC) (test code = 7851145203) 3.61 10*3/uL 1.99-6.95 IMM GRAN x10^3 (test code = 0046909470) 0.04 10*3/uL 0.00-0.06 LYMPH x10^3 (test code = 731-0) 1.09 10*3/uL 1.09-3.23 MONO x10^3 (test code = 742-7) 1.11 10*3/uL 0.36-1.02 H EOS x10^3 (test code = 711-2) 0.04 10*3/uL 0.06-0.53 L BASO x10^3 (test code = 704-7) 0.04 10*3/uL 0.01-0.09 Lab Interpretation (test code = 16322-5) Abnormal [facility] GLUCOSE (AUTOMATED)2023-02-14 22:18:58* Test Item Value Reference Range Interpretation Comme nts POCT GLU (test code = 6473221961) 174 mg/dL 70-110 H Lab Interpretation (test cod e = 15776-4) Abnormal [facility] GLUCOSE (AUTOMATED)2023-02-14 17:43:43* Test Item Value Reference Range Interpretation Comme nts POCT GLU (test code = 9822295535) 84 mg/dL 70-110 Lab Interpretation (test cod e = 82841-5) Normal [facility] GLUCOSE (AUTOMATED)2022-10-26 13:16:44* Test Item Value Reference Range Interpretation Comme nts POCT GLU (test code = 3305506461) 145 mg/dL 70-110 H Lab Interpretation (test cod e = 73863-1) Abnormal [facility] GLUCOSE (AUTOMATED)2022-10-26 01:20:18* Test Item Value Reference Range Interpretation Comme nts POCT GLU (test code = 5174126307) 240 mg/dL 70-110 H Lab Interpretation (test cod e = 53456-2) Abnormal [facility] GLUCOSE (AUTOMATED)2022-10-25 22:11:38* Test Item Value Reference Range Interpretation Comme nts POCT GLU (test code = 1401175655) 254 mg/dL 70-110 H Lab Interpretation (test cod e = 37783-5) Abnormal [facility], [id number] 18:19:20* Test Item Value Reference Range Interpretation Comme nts AMMONIA (test code = 5158294271) 9-33 L Lab Interpretation (test cod e = 37292-8) Abnormal [facility] GLUCOSE (AUTOMATED)2022-10-25 17:32:20* Test Item Value Reference Range Interpretation Comme nts POCT GLU (test code = 8511768104) 212 mg/dL 70-110 H Lab Interpretation (test cod e = 81142-4) Abnormal [facility] GLUCOSE (AUTOMATED)2022-05-08 18:07:15* Test Item Value Reference Range Interpretation Comme nts POCT GLU (test code = 9328178693) 210 mg/dL 70-110 H Lab Interpretation (test cod e = 86908-3) Abnormal [facility] GLUCOSE (AUTOMATED)2022-05-08 13:21:55* Test Item Value Reference Range Interpretation Comme nts POCT GLU (test code = 9728372206) 83 mg/dL 70-110 Lab Interpretation (test cod e = 53540-0) Normal [facility] GLUCOSE (AUTOMATED)2022-05-08 01:16:03* Test Item Value Reference Range Interpretation Comme nts POCT GLU (test code = 6149985803) 133 mg/dL 70-110 H Lab Interpretation (test cod e = 71010-9) Abnormal [facility] GLUCOSE (AUTOMATED)2022-05-07 22:56:43* Test Item Value Reference Range Interpretation Comme nts POCT GLU (test code = 1417603125) 194 mg/dL 70-110 H Lab Interpretation (test cod e = 51845-1) [facility]normal [facility]2022-05-07 13:54:43* Test Item Value Reference Range Interpretation Comme nts POCT GLU (test code = 6258587416) 93 mg/dL 70-110 Lab Interpretation (test cod e = 43016-6) Normal [facility] GLUCOSE (AUTOMATED)2022-05-07 01:10:55* Test Item Value Reference Range Interpretation Comme nts POCT GLU (test code = 4196255882) 148 mg/dL 70-110 H Lab Interpretation (test cod e = 60114-1) Abnormal [facility] West[facility]AT[facility] FUNCTION PANEL (06063) (ALB,T.PRO,BILI T,BU/BC,ALT,AST,ALK PHOS)2022-05-07 01:03:23* Test Item Value Reference Range Interpretation Comme nts TOTAL BILI (test code = 3054370748) 0.5 mg/dL 0.1-1.1 BILI UNCON (test code = 7607691847) 0.2 mg/dL 0.1-1.1 BILI CONJ (test code = 9538762397) 0.0 mg/dL 0-0.3 T PROTEIN (test code = 6553888899) 6.3 g/dL 6.3-8.2 ALBUMIN (test code = 1723350861) 3.4 g/dL 3.5-5 L ALK PHOS (test code = 9693837024) 54 U/L 34-122 ALTv (test code = 1742-6) 13 U/L 5-50 AST(SGOT) (test code = 7026118119) 18 U/L 13-40 Lab Interpretation (test cod e = 68282-3) Abnormal [facility] WestVALPROIC ACID, [id number] 00:55:25* Test Item Value Reference Range Interpretation Comme nts Valproic Acid, Free (test code = 5899786222) 7.2 ug/mL 4-15 STANFORD (test code = STANFORD) Toxic Range: ? Greater than 15 ug/mL Test developed and characteristics determined by [facility] Laboratory Services. Lab Interpretation (test code = 57034-1) Normal [facility] GLUCOSE (AUTOMATED)2022-05-06 21:54:40* Test Item Value Reference Range Interpretation Comme nts POCT GLU (test code = 6844465067) 149 mg/dL 70-110 H Lab Interpretation (test cod e = 12178-9) Abnormal [facility] GLUCOSE (AUTOMATED)2022-05-06 17:06:34* Test Item Value Reference Range Interpretation Comme nts POCT GLU (test code = 1062280767) 166 mg/dL 70-110 H Lab Interpretation (test cod e = 55106-6) Abnormal [facility] GLUCOSE (AUTOMATED)2022-05-06 13:49:08* Test Item Value Reference Range Interpretation Comme nts POCT GLU (test code = 9778782071) 80 mg/dL 70-110 Lab Interpretation (test cod e = 50176-7) Normal [facility] GLUCOSE (AUTOMATED)2022-05-06 01:44:43* Test Item Value Reference Range Interpretation Comme nts POCT GLU (test code = 3632016769) 158 mg/dL 70-110 H Lab Interpretation (test cod e = 32003-9) Abnormal [facility] GLUCOSE (AUTOMATED)2022-05-05 22:39:13* Test Item Value Reference Range Interpretation Comme nts POCT GLU (test code = 9523377150) 79 mg/dL 70-110 Lab Interpretation (test cod e = 45644-4) Normal [facility] WestGLYCOSYLATED HEMOGLOBIN (A1C)2022-05-05 21:54:43* Test Item Value Reference Range Interpretation Comme nts HGB A1C (test code = 4548-4) 6.7 % 4-5.7 H STANFORD (test code = STANFORD) Reference RangesNormal: <5.7%Prediabetes: 5.7 - 6.4%Diabetes: > 6.5% Lab Interpretation (test code = 60259-2) Abnormal [facility] (11678)(TOTAL CHOLESTEROL, TRIGLYCERIDES, HDL)2022-05-05 19:53:18* Test Item Value Reference Range Interpretation Comme nts CHOL (test code = 2813554642) 112 mg/dL 120-200 L HDL (test code = 6378096084) 47 mg/dL See_Comment [Automated Contemporary Analysisa Shopmium] The system which generated this result transmitted reference range: >=40. The reference range was not used to interpret this result as normal/abnormal. HDLC RATIO (test code = 3315136250) See_Comment [Automated Casenet] The system which generated this result transmitted reference range: <=5.0. The reference range was not used to interpret this result as normal/abnormal. TRIG (test code = 0390842164) 123 mg/dL 30-170 LDL CHOL (test code = 32776-0) 40 mg/dL See_Comment [Automated Casenet] The system which generated this result transmitted reference range: <=160. The reference range was not used to interpret this result as normal/abnormal. VLDL (test code = 5203467012) 25 mg/dL 5-60 Lab Interpretation (test code = 56279-3) Abnormal [facility]Trpsych[facility] I - Code [id number] 15:00:04* Test Item Value Reference Range Interpretation Comments TROPONIN I (test code = 6838337501) 0.002 ng/mL See_Comment [Automated message] The system [...] of biotin. Lab Interpretation (test code = 42995-4) Normal [facility] Metabolic Panel (NA, K, CL, CO2, Glucose, BUN, Creatinine, CA) - Code [id number] 14:48:26* Test Item Value Reference Range Interpretation Comme nts NA (test code = 7438971601) 141 mmol/L 135-145 K (test code = 3594843943) 3.6 mmol/L 3.5-5 Slight hemolysis CL (test code = 9962753038) 98 mmol/L 98-108 CO2 TOTAL (test code = 5985269293) 32 mmol/L 23-31 H AGAP (test code = 3606581247) 2-16 BUN (test code = 6228933882) 10 mg/dL 7-23 Slight hemolysis GLUCOSE (test code = 8607900711) 136 mg/dL 70-110 H CREATININE (test code = 8995694137) 0.63 mg/dL 0.6-1.25 CALCIUM (test code = 2826116626) 9.1 mg/dL 8.6-10.6 eGFR (test code = 2993258974) mL/min/1.73m2 STANFORD (test code = STANFORD) Association [...] imaging tests). Lab Interpretation (test code = 88965-4) [facility] / [facility] - Code [id number] 14:47:05* Test Item Value Reference Range Interpretation Comme [facility] PROTIME PATIENT (test code = 5964-2) See_Comment [Automated messa ge] The system which generated this result transmitted reference range: 10.1 - 12.6 Seconds. The reference range was not used to interpret this result as normal/abnormal. INR (test code = 6301-6) Normal INR <1.1; Warfarin Therapeutic range 2.0 to 3.0 or 2.5 to 3.5, depending upon the indications. Lab Interpretation (test code = 46873-5) Normal [facility] WestaPTT - Code Kycaai2839-67-00 14:47:05* Test Item Value Reference Range Interpretation Comme [facility] APTT Patient (test code = 3173-2) See_Comment [Automated messa ge] The system which generated this result transmitted reference range: 26 - 36 Seconds. The reference range was not used to interpret this result as normal/abnormal. Lab Interpretation (test code = 87521-1) Normal [facility] WestCB without Diff - Code [id number] 14:39:43* Test Item Value Reference Range Interpretation Comme [facility] WBC (test code = 6690-2) See_Comment H [...] result as normal/abnormal. MPV (test code = 36702-7) 9.8 fL 9.8-13 RDW-CV (test code = 788-0) 15.3 % 12.1-15.4 RDW-SD (test code = 92241-5) 46.8 fL 38.5-51.6 NRBC x10^3 (test code = 0558182296) See_Comment [Automated Contemporary Analysisa ge] The system which generated this result transmitted reference range: 10*3/?L. The reference range was not used to interpret this result as normal/abnormal. NRBC/100 WBC (test code = 2811873550) See_Comment [Automated Contemporary Analysisa ge] The system which generated this result transmitted reference range: 0.0 - 10.0 /100 WBCs. The reference range was not used to interpret this result as normal/abnormal. IPF % (test code = 1390226411) Lab Interpretation (test code = 92730-3) Abnormal [facility]ICARDIOLIPIN VCIYCDNQGC5508-58-82 02:21:10 * Test Item Value Reference Range Interpretation Comments Anticardiolipin Antibody IgG (test code = 3123210207) See_Comment [Automated message] The system which generated this result transmitted reference range: 0.0 - 10.0 GPL. The reference range was not used to interpret this result as normal/abnormal . Anticardiolipin Antibody IgM (test code = 6293436959) See_Comment [Automated message] The system which generated this result transmitted reference range: 0.0 - 10.0 MPL. The reference range was not used to interpret this result as normal/abnormal . Anticardiolipin Antibody IgA (test code = 2770842461) See_Comment [Automated message] The system which generated [...] the test that give values in theIndeterminate "Msos" zone range at a later date (i.e. 4-6 weeks) to confirmpositivity. ?Viet Agustin et al. ?J Thromb Haemost 2006; 4: 2210-4 Lab Interpretation (test code = 71681-6) Normal [facility] METABOLIC PANEL (NA, K, CL, CO2, GLUCOSE, BUN, CREATININE, CA)2022-04-03 14:15:35* Test Item Value Reference Range Interpretation Comme nts NA (test code = 2566413417) 135 mmol/L 135-145 K (test code = 8475797086) 3.2 mmol/L 3.5-5 L CL (test code = 8888849869) 104 mmol/L 98-108 CO2 TOTAL (test code = 3600230165) 23 mmol/L 23-31 AGAP (test code = 2679756964) 2-16 BUN (test code = 2415800912) 17 mg/dL 7-23 GLUCOSE (test code = 4835421013) 101 mg/dL 70-110 CREATININE (test code = 3715494345) 0.79 mg/dL 0.6-1.25 CALCIUM (test code = 9603898789) 8.4 mg/dL 8.6-10.6 L eGFR (test code = 4476906121) mL/min/1.73m2 STANFORD (test code = STANFORD) Association [...] imaging tests). Lab Interpretation (test code = 83918-3) Abnormal [facility]UM2022-[facility]-10 14:15:35* Test Item Value Reference Range Interpretation Comme nts MAGNESIUM (test code = 0733160214) 1.9 mg/dL 1.7-2.4 Lab Interpretation (test cod e = 28970-8) Normal [facility] WITH TZEE1844-93-48 09:34:09* Test Item Value Reference Range Interpretation Comme nts WBC (test code = 6690-2) See_Comment [Automated Casenet] The system which generated this result transmitted reference range: 4.20 - 10.70 10*3/?L. The reference range was not used to interpret this result as normal/abnormal. RBC (test code = 789-8) See_Comment L [Automated [employer]] The system which generated this result transmitted [...] 32.9 g/dL 31.2-35 RDW-SD (test code = 49681-7) 45.3 fL 38.5-51.6 RDW-CV (test code = 788-0) 14.9 % 12.1-15.4 PLT (test code = 777-3) See_Comment [Automated messa ge] The system which generated this result transmitted reference range: 150 - 328 10*3/?L. The reference range was not used to interpret this result as normal/abnormal. MPV (test code = 60084-0) 9.9 fL 9.8-13 NRBC/100 WBC (test code = 1636059793) See_Comment [Automated Quick[employer] ssage] The system which generated this result transmitted reference range: 0.0 - 10.0 /100 WBCs. The reference range was not used to interpret this result as normal/abnormal. NRBC x10^3 (test code = 1352941493) See_Comment [Automated messa ge] The system which generated this result transmitted reference range: 10*3/?L. The reference range was not used to interpret this result as normal/abnormal. GRAN MAT (NEUT) % (test code = 770-8) 52.9 % IMM GRAN % (test code = 5067062079) 0.20 % LYMPH % (test code = 736-9) 33.3 % MONO % (test code = 5905-5) 11.7 % EOS % (test code = 713-8) 1.5 % BASO % (test code = 706-2) 0.4 % GRAN MAT x10^3(ANC) (test code = 3244000675) 2.48 10*3/uL 1.99-6.95 IMM GRAN x10^3 (test code = 6449927090) 0-0.06 LYMPH x10^3 (test code = 731-0) 1.56 10*3/uL 1.09-3.23 MONO x10^3 (test code = 742-7) 0.55 10*3/uL 0.36-1.02 EOS x10^3 (test code = 711-2) 0.07 10*3/uL 0.06-0.53 BASO x10^3 (test code = 704-7) 0.01-0.09 Lab Interpretation (test code = 76975-0) Abnormal [facility]ANTI-B2 GLYCOPROTEIN I MN5256-43-90 00:14:46* Test Item Value Reference Range Interpretation Comments Anti-B2 Glycoprotein 1 IgG (test code = 7402038539) See_Comment [Automated message] The system which generated this result transmitted reference range: 0.0 - 20.0 SGU. The reference range was not used to interpret this result as normal/abnormal. Anti-B2 Glycoprotein 1 IgM (test code = 4690091258) See_Comment [Automated message] The system which generated this result transmitted reference range: 0.0 - 20.0 SMU. The reference range was not used to interpret this result as normal/abnormal. Anti-B2 Glycoprotein 1 IgA (test code = 2712977240) See_Comment [Automated message] The system which generated [...] losses and/or thrombocytopenia. TEST PERFORMED AT:[facility] [address] [place] [address] [place] [address] Lab Interpretation (test code = 20948-5) Normal [facility]ANTI-NUCLEAR ANTIBODY-PATHOLOGIST HNYAIJCFOGTSBH4458-77-06 19:07:26ANA - Pathologist InterpretationANA HEp-2 IIFA Pathologist [...] purpura, thyroid disease, discoid lupus, or fibromyalgia. (https://pubmed.ncbi.nlm.nih.gov/48742905/, https://pubmed.ncbi.nlm.nih.gov/52498665/) ? ? Therefore, a diagnosis cannot be based exclusively on DUARTE detection and/or pattern and thus should be made via the integration of patient history, physical exam findings, and other diagnostic tests as clinically indicated. Karuna Anderson MD ?04/02/2022 ?2:07 PM04/02/2022 2:07 PM [facility]OR[facility] SERVICESH[facility] WestAnti- Nuclear Anitbody (DUARTE) Viqubd7646-17-17 19:07:06* Test Item Value Reference Range Interpretation Comme nts DUARTE (test code = 9431321551) Negative Negative STANFORD (test code = STANFORD) Negative: ?No Anti-Nuclear Antibodies detected by IFA. Positive: ?DUARTE IFA screen performed with a 1:80 dilution in adults and a 1:40 dilution in pediatrics. ?A titer is performed and reported separately when the DUARTE is "Positive" or when "Cytoplasmic staining is observed." Lab Interpretation (test code = 34009-8) [facility]-HJBKLMJQBWMRPMKWX6257-36-28 17:19:09* Test Item Value Reference Range Interpretation Comme nts Anti-Ribonucleoprotein (test code = 8062637075) Negative Negative STANFORD (test code = STANFORD) Positive - Antibod y detected.Negative - No antibody detected. Lab Interpretation (test code = 80110-9) [facility]-CANALES(SM)2022-04-01 17:19:09* Test Item Value Reference Range Interpretation Comme nts Anti-Canales (test code = 0361808576) Negative Negative STANFORD (test code = STANFORD) Positive - Antibod y detected.Negative - No antibody detected. Lab Interpretation (test code = 37637-2) [facility]-SSA(RO)2022-04-01 17:19:09* Test Item Value Reference Range Interpretation Comme nts ANTI-SSA(RO) (test code = 6691248050) Negative Negative STANFORD (test code = STANFORD) Positive - Antibod y detected.Negative - No antibody detected. Lab Interpretation (test code = 11831-4) [facility]SSB(LA)2022-04-01 17:19:09* Test Item Value Reference Range Interpretation Comme nts Anti-SSB(LA) (test code = 4420854061) Negative Negative STANFORD (test code = STANFORD) Positive - Antibod y detected.Negative - No antibody detected. Lab Interpretation (test code = 36523-0) [facility] YOGTW1864-18-65 17:18:48 * Test Item Value Reference Range Interpretation Comme nts IgA (test code = 6988483639) 141 mg/dL 70-312 IgG (test code = 6486571805) 920 mg/dL 636-1600 IgM (test code = 7822945297) 56 mg/dL 56-352 Lab Interpretation (test cod e = 52101-1) [facility]OL[facility] (NA, K, CL, CO2, GLUCOSE, BUN, CREATININE, CA)2022-04-01 11:26:53* Test Item Value Reference Range Interpretation Comme nts NA (test code = 7618801680) 141 mmol/L 135-145 K (test code = 5771797847) 3.9 mmol/L 3.5-5 CL (test code = 0764785530) 103 mmol/L 98-108 CO2 TOTAL (test code = 8608275855) 34 mmol/L 23-31 H AGAP (test code = 5412542708) 2-16 BUN (test code = 5321876085) 9 mg/dL 7-23 GLUCOSE (test code = 5681009106) 129 mg/dL 70-110 H CREATININE (test code = 4569819753) 0.73 mg/dL 0.6-1.25 CALCIUM (test code = 4741315533) 9.1 mg/dL 8.6-10.6 eGFR (test code = 1686165586) mL/min/1.73m2 STANFORD (test code = STANFORD) Association [...] imaging tests). Lab Interpretation (test code = 58581-9) Abnormal [facility] with Bogllirmefww7772-62-52 18:20:26* Test Item Value Reference Range Interpretation Comme nts WBC (test code = 6690-2) See_Comment [Automated messa ge] The system which generated this result transmitted reference range: 4.20 - 10.70 10*3/?L. The reference range was not used to interpret this result as normal/abnormal. RBC (test code = 789-8) See_Comment [Automated messa ge] The system which [...] 32.6 g/dL 31.2-35 RDW-SD (test code = 16858-5) 45.7 fL 38.5-51.6 RDW-CV (test code = 788-0) 14.9 % 12.1-15.4 PLT (test code = 777-3) See_Comment [Automated messa ge] The system which generated this result transmitted reference range: 150 - 328 10*3/?L. The reference range was not used to interpret this result as normal/abnormal. MPV (test code = 09859-1) 9.6 fL 9.8-13 L NRBC/100 WBC (test code = 0769587373) See_Comment [Automated Quick[employer] ssage] The system which generated this result transmitted reference range: 0.0 - 10.0 /100 WBCs. The reference range was not used to interpret this result as normal/abnormal. NRBC x10^3 (test code = 7293543075) See_Comment [Automated messa ge] The system which generated this result transmitted reference range: 10*3/?L. The reference range was not used to interpret this result as normal/abnormal. GRAN MAT (NEUT) % (test code = 770-8) 83.6 % IMM GRAN % (test code = 0740634122) 0.40 % LYMPH % (test code = 736-9) 10.6 % MONO % (test code = 5905-5) 4.9 % EOS % (test code = 713-8) 0.1 % BASO % (test code = 706-2) 0.4 % GRAN MAT x10^3(ANC) (test code = 9089877145) 8.56 10*3/uL 1.99-6.95 H IMM GRAN x10^3 (test code = 8302418806) 0.04 10*3/uL 0-0.06 LYMPH x10^3 (test code = 731-0) 1.08 10*3/uL 1.09-3.23 L MONO x10^3 (test code = 742-7) 0.50 10*3/uL 0.36-1.02 EOS x10^3 (test code = 711-2) 0.06-0.53 L BASO x10^3 (test code = 704-7) 0.04 10*3/uL 0.01-0.09 Lab Interpretation (test code = 61518-0) Abnormal [facility]HEMOGLOBIN A1C* Test Item Value Reference Range Interpretation Comme nts A1C (test code = 4548-4) 6.0 Consult Notes Date/Time Note Provider Source 2023-02-15 12:40:00 DLTZ9YW+n//+UlYB6fRO HYfpnaBQYh6z lAL3jrur4QT0SiRccigUQtfqv25+LR+A 7774-41-49F35:40:00Associated Order(s): CONSULT ADULT OCCUPATIONAL THERAPY OT GENERAL EVALUATIONConsult received via mEgo, EMR reviewed and evaluation completed 02/15/23. Patient [...] Right 02/12/2022 Surgeon: Adelso Torres MD; Location: [facility] LOCATION PAIN: Denies pain before and after session. [...] to enable patient to complete evaluation component. 88630-5Nuzthvx miilYL9068-56-11K06:54:28Consult noteTXT1.2.840.869702.1.13.104.2 .7.2.470075|[id number] e for patient qpuz917142098Qkxvrr K Flaherty [address] IhoyVymtxtsbpEkucwsdjzMBSB367409 2976VPZZCDRDDEQMDBPGSZBYEN1930-0 :54:281.2.840.948951.1.72 .3.15|1.2.840.965376.1.13.104.2. 7.2.727879_[id number] Rufus Rand OT [facility] 2023-02-14 14:25:34 7nDjIx7lLBkevEM2mF2n aRfqA/JrEro9 ksTl2T5ZX4w67WbZHiTE71qz9Z5CUCHK 4914-75-26S11:25:34Associated Order(s): CONSULT INFECTIOUS DISEASE [facility] CLEAR LAKEINFECTIOUS DISEASES CONSULTATION NOTE CLS Infectious Diseases Luis Alberto Rosario MD; Brodie Mckeon MD; Enrique Zuniga MD; Cisco Pollock MD; Malik Rich MD; Magdalena Gan MD; Laura Anne MD; Jhon Miles MD; Frank Alex MD [place] Office: [phone] [address] [facility], [place] [address] P: / [facility]: [facility] Office: [address], [place] [address] P: / F: REQUESTING CLINICIAN:Barak Poon FOR CONSULTATION:Concern for F[employer] VENDING MECHANIC infectionHISTORY OF PRESENT ILLNESS:Mike Francis III is a 47 year old male with history of seizure disorder, F[employer] V[employer]ING MECH[employer]IC vasculitis who was admitted early this a.m. [...] a normal WBC count. Patient has had F[employer]ING MECH[employer]IC imaging, which has been reviewed. No culture [...] Right 02/12/2022 Surgeon: Adelso Torres MD; Location: [facility] SOCIAL HISTORY:Social History Tobacco Use Smoking [...] 1,750 mg, 1,750 mg, Oral, BID, Dolores Caldwell NP, 1,750 mg at 02/14/23 1316 ferrous sulfate tablet 325 mg, 325 mg, Oral, Q OTHERDAY, Sigifredo Boston MD, 325 mg at 02/14/23 1320 fluticasone propionate 50 mcg/actuation nasal spray 1 [place], 1 [place], Nasal, BID, Sigifredo Boston MD, 1 [place] at 02/14/23 1316 gabapentin (NEURONTIN) capsule 300 [...] Preliminary Report Dictated by Resident: Liz Peters, Parjmit Arango MD., have reviewed this study and agree with the above report.CT STROKE ANGIOGRAM NECKResult Date: 02/14/2023No large vessel occlusion or flow-limiting stenosis identified in the intracranial or cervical vessels. Preliminary Report Dictated by Resident: Liz Peters, Parmjit Arango MD., have reviewed this study and agree with the above report. ASSESSMENT:47 year old male presents with:*Fever, resolved*FOUNTAIN VENDING MECHANIC vasculitis*Seizure disorder with breakthrough seizure*Postictal confusion-Patient's fever has resolved. On clinical evaluation, there is no obvious evidence of FOUNTAIN VENDING MECHANIC infection or meningitis. He seems to be waking up and improving without antimicrobials.PLAN:-Monitor off antimicrobials.-Given reported history of FOUNTAIN VENDING MECHANIC vasculitis, will screen for syphilis.-No obvious indication for LP from ID standpoint currently.-Further recommendations to follow based upon clinical course.Thank you for this consultation; will continue to follow. 62040-6Qpfvtyi unkbSN1641-84-96I99:35:21Consult noteTXT1.2.840.898503.1.13.104.2 .7.2.136295|[id number] e for patient care[address] UayuPhdmqwxdkAnylskgjkMIEM777064 5906LGNXRNKZKGJPNZSOPGGKBI9823-0 7-24T17:35:211.2.840.769182.1.72 .3.15|1.2.840.572522.1.13.104.2. 7.2.727879_[id number] [facility] 2023-02-14 09:51:00 0bqD97S5BL1OVYIYB01F Ub2PrjduMn0X IJrpANW9vts+Yub5yQntTunWtaiLgAIq 6343-24-53G89:51:00Associated Order(s): CONSULT NEUROLOGY Neurology ConsultationPatient's Name: Mike Francis IIIMRN: [id number] of : 1975 Age: 47 yrsDate of Admission: 02/13/2023ate of Service: 02/14/2023Referring provider:Dr Jeffrey for Consultation:Seizure History of Present Illness:47 yo with history of seizures and F[employer] V[employer]CH[employer]IC vasculitis on depakote presenting as a transfer [...] Right 02/12/2022 Surgeon: Adelso Torres MD; Location: [facility] OR LOCATION Allergies Allergen Reactions Shellfish Derived Anaphylaxis Keppra [...] 1,750 mg, 1,750 mg, Oral, BID, Dolores Caldwell SOLITARIO ferrous sulfate tablet 325 mg, 325 mg, Oral, Q OTHERDAY, Sigifredo Boston MD fluticasone propionate 50 mcg/actuation nasal spray 1 [place], 1 [place], Nasal, BID, Sigifredo Boston MD gabapentin (NEURONTIN) capsule 300 mg, 300 mg, Oral, TID, Sigifredo oBston MD glyBURIDE (DIABETA) tablet 5 mg, 5 mg, Oral, QAM WITH BREAKFAST, Sigifredo Boston MD hydrALAZINE (APRESOLINE) tablet 25 mg, 25 mg, Oral, Q6H, Sigifredo Boston MD, 25 mg at 02/14/23 0608 hydrOXYzine (ATARAX) tablet 10 mg, 10 mg, Oral, Q6HPRN, Sigifredo Boston MD KCL (KLOR-CON M20) tablet 40 mEq, 40 mEq, Oral, ONCE, Dolores Caldwell NP lisinopriL (PRINIVIL,ZESTRIL) tablet 40 mg, 40 mg, [...] of motionSkin: dry, intact, normal color, normal temperatureNeuro/FOUNT[employer] VENDING MECHANIC: Mental status: alert, oriented X self. Aphasic [...] Seizure disorder 2. Post ictal state 3. FOUNTAIN VENDING MECHANIC vasculitis 47 yo with FOUNT[employer] VENDING MECHANIC vasculitis presenting with breakthrough seizure in setting [...] in neurological status. Duglas Miller MD Neurologist 54135-6Wcwshfh neacVZ5535-83-83D32:58:35Consult noteTXT1.2.840.013651.1.13.104.2 .7.2.935089|[id number] for patient [address]ton[place]TX[place] 5536OYDNTQYJCHFXNACNJQUEUX7181-9 09:58:351.2.840.278063.1.72 .3.15|1.2.840.078817.1.13.104.2. 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 Ibuprofen 800, normal saline bolus 1 L, IV lacosamide(Vimpat) f1HYWDLF OF SYSTEMS(-)=Negative,(+)=Positive See HPIPAST MEDICAL HISTORY Past Medical History: Diagnosis Date CAD (coronary artery disease) HLD (hyperlipidemia) HTN (hypertension) Pre-diabetes Past Surgical History: Procedure Laterality Date CRANIOTOMY BIOPSY BRAIN (SHX) Right 02/12/2022 Surgeon: Adelso Torres MD; Location: [facility] Family History Problem Relation Age of [...] RELIEF) 50 mcg/actuation nasal spray Use 1 [place] in each nostril in the morning and 1 [place] in the evening. 16 g 0 amLODIPine [...] (ONE-A-DAY MEN'S MULTIVITAMIN ORAL) Take by mouth. hyinx-1v-jmh-epa-fish oil-D3 (FISH OIL-VIT D3) 360 mg-1,200 mg -1,000 unit Cap Take by mouth. SOCIAL HISTORYSocial History Socioeconomic History Marital status: Occupational History Occupation: [employer] Tobacco Use Smoking status: Former Types: Cigarettes [...] related to the patient's known history of FOUNTAIN VENDING MECHANIC vasculitis.The clements-white matter differentiation is preserved. The [...] matter changes likely relatedto the patient's known FOUNTAIN VENDING MECHANIC vasculitis.ASSESSMENT/Mila John Francis III is a 48 year old male with PMH as listed above, admitted to the hospital with:Breakthrough seizuresCOVID-19 infectionPrimary FOUNTAIN VENDING MECHANIC angiitis(biopsy-proven 03/2022)Patient presented with 2 episodes of [...] 3 months from the last seizure per [place] Law. 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 95882-4Bvfsuwk and physical qboeDY7323493Hsna, Saad M.1.2.840.061695.1.13.104.2.7.2.338016MrblGisella GutierrezBD8765-81-31E08:22:47History and physical noteTXT1.2.840.783211.1.13.104.2.7.2.91560 9|[id number] for patient nbfi26916-7Lopthjj and physical noteLNUT[address] DffmRjaibgjanItbzazjkoRYBO8610795334ATAIPI WSRSHVJRJRNJXMEZ5356-25-13H97:22:471.2.840 .371419.1.72.3.15|1.2.840.398446.1.13.104. 2.7.2.727879_[id number] [facility] 2023-02-14 01:18:10 w9y411oovGIvqsVrUdU+ E9Yk2Qn1C8YwtzRjyvlE/N RrCeBjRFPzwBlA2PwoyZko5545-02-61B14:18:10F ormatting of this note is different from the original.[facility] Intensive Care History and Physical Date of Service: 02/14/2023 01:19 IMU day: 1Intubation Day: n/aCHIEF COMPLAINT: Worsening mentation/altered mental statusHISTORY OF PRESENT ILLNESSMike Francis III is a 47 year old male who presented to [facility] with worsening seizure activity and post-ictal worsening lethargy. Request was made for ICU level of care. Transferred here because well known to [facility]. On arrival pt. Is stable, with more forgetfulness being the only presenting concern per .PAST MEDICAL HISTORY Past Medical History: Diagnosis Date CAD (coronary artery disease) HLD (hyperlipidemia) HTN (hypertension) Pre-diabetes PAST SURGICAL HISTORYPast Surgical History: Procedure Laterality Date CRANIOTOMY BIOPSY BRAIN (SHX) Right 02/12/2022 Surgeon: Adelso Torres MD; Location: [facility] FAMILY HISTORYFamily History Problem Relation Age of Onset Coronary Heart Disease Unknown Grandmother Stroke Father 60s SOCIAL HISTORYSocial History Socioeconomic History Marital status: Occupational History Occupation: [employer] Tobacco Use Smoking status: Former Types: Cigarettes [...] mental statusNeuroDr. Marcano aware of pt. Chronic FOUNTAIN VENDING MECHANIC Vasculitis with seizure disorderChecking basic labsTSHPer , pt. Seizure free since medications given in [place] ER.Will reordered all meds.Once plan in place, [...] SQ for nowDispo:IMUPrognosis:FairCode Status: FullVictor Ludy [facility] Yvijpgpdpxyjwv61/24/231:19 AM 37394:I spent a total of 40 minutes reviewing the chart and test results, obtaining the history, performing the exam and MDM along with placing orders, charting, and speaking with the patient/family. 14478-9Ugxhzsm and physical rwxhYR3208-55-68T08:25:07History and physical noteTXT1.2.840.195639.1.13.104.2.7.2.80776 9|[id number] for patient careUT[address] YrevDdixlqmjaGdvgvzzjeFDTG7705256672TSXJTJ FXXDXHOYWVANYXJS8323-88-55O93:25:071.2.840 .110887.1.72.3.15|1.2.840.490454.1.13.104. 2.7.2.727879_[id number] [facility] Notes Date/Time Note Provider Source 2023-11-25 09:30:00 3pGgF7n28AhDTooFV5w8aOskl1cb1eIgwbz bKQ7Z5Iear0J8ef5uSYHTzWSW2cGB3982-6 09:30:00 Images from the original note were not included.Venipuncture collection performed by clean technique on the left hand. Total of 1 attempts were made. Slight pressure and a bandage/dressing were applied to the site(s). The patient experienced no complications. The following specimens were processed according to instructions and sent to [facility] laboratories per lab order on 11/25/2023:LT BLUESST 2RED 1LAV 1PPTDK GREEN (LiHep)DK GREEN (SodH)GRAYDK BLUE (K2)DK BLUE (S)ACDBlood CultureNIPT/NTD 61552-2Wfowr JgovAM9072-37-36W45:43:21Nurse NoteTXT1.2.840.823674.1.13.104.2.7. 2.364051|[id number] for patient iinr86687-7Uamik NoteLNNARRATIVEFormatted C-CDA narrative textUT[address] YyhzOjjxecsmoVwjlnmryhOJZA812738647 0PEMPJMLJLHUIKIVTBMPGRS9857-74-56Y8 9:43:211.2.840.873995.1.72.3.15|1.2 .840.759242.1.13.104.2.7.2.727879_2 [id number] [facility] 2023-09-06 15:41:38 6c58Cks4bXSxa4vaZpjpAIPSbT6elr2mMVZ Ct0yxl0retV3wfVFLGKO2vuuPtsb30057-8 09-06T15:41:38 NOV 11/25/23Routing to provider for approval or denial 64232-7Zxwhgrndy encounter EsrnNZ9727-37-30J23:42:59Telephone encounter NoteTXT1.2.840.306960.1.13.104.2.7. 2.883219|[id number] for patient bvha18300-6ZyzzPEFWFPDYZCDHfofflvjt C-CDA narrative yikk395561360Jowvo D. Demond [address] IvnwUuxfkcvecFuozxjbsuCTWF872928250 9KLPEPXSRWKZKHZZSGLGMHG2956-48-45V1 5:42:591.2.840.545263.1.72.3.15|1.2 .840.076557.1.13.104.2.7.2.727879_2 [id number] Belkysfaustina Goodillo [facility] 2023-03-22 13:46:18 hpOUCymmKAFd7a9SGiHzf+yUXtLcvKuISF3 f5E15ibINE0CImkSdolBl92mk5jFM4137-1 3:46:18 TRANSITIONAL CARE MANAGEMENT ASSESSMENT03/22/2023 Mike Francis III207274PMeldarren Francis III is a 48 year old Black or male was admitted on 03/20/[address] He was discharged on 03/21/23 with discharge disposition of HR- Routine Discharge.Admitting Physician: Oma ObandoDischarge Diagnosis: Breakthrough Seizure 2/2 primary FOUNTAIN VENDING MECHANIC angitis No linked episodesTCM Bit-bcau-qm-face outreach documentation:Discharge AssessmentChart Assessed: 03/22/23TCM Outreach Completed: [...] Dept Phone 05/23/2023 1:30 PM (Cmme), Girish [facility] Engagement and Education [facility] [phone] 05/27/2023 3:00 PM Elin Vieyra MD [facility] Neurology, PCP [place] [phone] 06/03/2023 8:45 AM Berry, Arina-Andre Infusion Chair [facility] [facility] [phone] 06/14/2023 9:30 AM Marlon Bush MD [facility] [phone] 46716-2Kbnwoozsq encounter VrfpJT1392-63-60U56:46:55Telephone encounter NoteTXT1.2.840.819751.1.13.104.2.7. 2.156590|[id number] for patient gzmr68291-3KulaCR881547449Grycu B Porter RNUT[address] LbboAx[id number] 7JTQBTPHJYGWDECKABNLPRS8890-26-87A5 3:46:551.2.840.951157.1.72.3.15|1.2 .840.563765.1.13.104.2.7.2.727879_1 [id number] Jewell Mckeon RN [facility] 2023-03-21 16:36:25 2XE0Jzk0LtrtBpD2/Ddwd4lCUw9ZO0E1X9l v1CSk72Imf+53PmjeJlj6rf9+grzJ2745-6 03-21T16:36:25 Problem: Falls, Risk ofGoal: Absence of fallsOutcome: Resolved Problem: Seizures, Risk of / or ActualGoal: Absence of injury related to seizure activityOutcome: ResolvedGoal: Absence of seizure activityOutcome: Resolved 28662-7Hmfi of care peopBP3148-17-07Y27:36:30Plan of care noteTXT1.2.840.762468.1.13.104.2.7. 2.899462|[id number] for patient wihl09388-7MdhqXX015783968Kqzpj Bentum RN[address] WktpMsuidqhsjErdqggqtrPBVY193582429 2SXZXUZUYSKRGSZNICLIWYH8909-45-10J4 6:36:301.2.840.579149.1.72.3.15|1.2 .840.001451.1.13.104.2.7.2.727879_1 [id number] Sandra Lopez RN [facility] 2023-03-21 01:56:57 Frt20vJZFGIO24KPv8IlARktUnBOPF/at1Z LdKmMQjkTLn8BIM5epQAk7g1jWT2s3168-6 01:56:57 Problem: Falls, Risk ofGoal: Absence of fallsOutcome: Progressing as expected Problem: Seizures, Risk of / or ActualGoal: Absence of injury related to seizure activityOutcome: Progressing as expectedGoal: Absence of seizure activityOutcome: Progressing as expected 70003-7Yasl of care tdqiGJ3163-46-63V53:57:00Plan of care noteTXT1.2.840.635158.1.13.104.2.7. 2.814810|[id number] for patient yvwp60144-2JlhbTL159044569Uysrtr N Gonzalez Leon RN[id number] 9YVQBZUOOSPVNVOIKPOVQHV7609-94-46E4 1:57:001.2.840.751242.1.72.3.15|1.2 .840.187507.1.13.104.2.7.2.727879_1 [id number] Shama Mendoza RN [facility] 2023-03-20 23:42:28 LSVS5wfe5lpnojkbor/olBLcFjShZR2lJ3y V9zbUTPfo+OzU0w2s6YyaADi4KRcH4951-6 3:42:28 Resident at to assess ptPt transported to the floor via stretcher with [facility] transport and significant other. Patient aaox2, breathing even/unlabored, in NAD. Patient stable for transport at this time. 64845-4Sctchhwlq department TlosEF4236-71-84U47:44:37[facility] NoteTXT1.2.840.685015.1.13.104.2.7. 2.837106|[id number] for patient xrrz50723-2KjvnMB371195974Dsdgprn R Davenport RN[id number] 6BICOJKUTDTFJXMLPPDINKY2040-47-39Y8 3:44:371.2.840.908952.1.72.3.15|1.2 .840.874266.1.13.104.2.7.2.727879_1 [id number] Nazia Galloway RN [facility] 2023-03-20 23:24:49 XmtqaaE3WHr1PwSeMmiZOfZaGdRgg4Rn3fh rOzfWkjQIqwTodkY9aTnnSYVmwf+h0384-4 03-20T23:24:49 Report called to Shama DUONG on 9C. POC discussed, questions answered. Pending transportation at this time 46120-7Ufsjmmqps department MixdSY4820-39-95M79:26:01[facility] department NoteTXT1.2.840.213271.1.13.104.2.7. 2.909863|[id number] for patient ldhn58082-6JziiDFFOPJEWGV[address]vdG[id number] 0EAUDJIBIIWTEPYDFTSEKIT6339-46-95K2 3:26:011.2.840.457042.1.72.3.15|1.2 .840.487682.1.13.104.2.7.2.727879_1 [id number] [facility] 2023-03-20 22:00:00 o2Z8WlAq7A7ofoRvglXgU0isJCukWDRZe/c QgFaaqYVVTuAADTqFpszOsu9XeIcx2074-7 03-20T22:00:00 Pt now oriented to name, but unable to remember birthday, where he is or what happened. 13743-7Khtabvtko department OgnrTT2722-67-32F60:14:07[facility] department NoteTXT1.2.840.666108.1.13.104.2.7. 2.969790|[id number] for patient tjor77405-0ZvwbEKGADSBHHO[id number] 1OPTKVBYSHOZGNDQQWTSQVD7430-59-20P6 2:14:071.2.840.334625.1.72.3.15|1.2 .840.176135.1.13.104.2.7.2.727879_1 [id number] [facility] 2023-03-20 21:08:52 25nPwCdNkutMWBo8PUnu52D9Ff18jbY9307 5fQBuBW6QvjALSKJan1OizV79uRUm3576-4 03-20T21:08:52 Neuology Resident at to assess pt. Resident notified of changes 36038-3Heqfjrawd department UmtsTR4255-18-04V84:09:19Emergency department NoteTXT1.2.840.731228.1.13.104.2.7. 2.167634|[id number] for patient mpac27181-6MkycMAJCCLFAPD[id number] 0UOFDQYBRSDPSEIEEGKVNEQ7113-25-08P3 1:09:191.2.840.665716.1.72.3.15|1.2 .840.412644.1.13.104.2.7.2.727879_1 [id number] [facility] 2023-03-20 21:00:00 HT5uq1LwcQM7CDREnzhbjrcp8RtRLj9Jzn7 ibp88NwhCEGGCj1OwLxeC0wmIRWy29934-2 03-20T21:00:00 Pt resting in stretcher on continuous compliance monitor. Upon entry to room pt sleeping in stretcher. Pt AOx0, per family member this has happened before but not since they have been at the hospital. Kianna HARMON notified. 68792-2Odzlzrdqu[address] AlhkON0655-15-69K45:29:47[facility] NoteTXT1.2.840.757972.1.13.104.2.7. 2.617452|[id number] for patient wzcq43705-2UnrxKQELJLZGBP[id number] 6IKYZHAVDDVKDQKHKFKWFZC7094-48-91W5 1:29:471.2.840.425975.1.72.3.15|1.2 .840.566995.1.13.104.2.7.2.727879_1 [id number] [facility] 2023-03-20 19:06:49 z/hmCuLslshmfnr6CxNMLm4EGjN8nX/r2XS XgLKT7Wn107dYF/dq0rI1Z0rcNCr93539-3 03-20T19:06:49 Shift change report given to AD Mandujano. Reviewed chief complaint, assessment findings, allergies, MAR and orders. Plan of care discussed at bedside with patient and both nurses. Patient / family verbalized understanding of POC. 06541-0Nqnwwgqgu[address] AufyFP4700-34-44L90:07:04[facility] NoteTXT1.2.840.409144.1.13.104.2.7. 2.455636|5337649117DYImvbvyaek for patient dtvh04536-8DvisJU286786640Icqpps Jordon [id number] 7MIXGDQICDEWJLKRLXAGGKS0543-11-82N0 9:07:041.2.840.447188.1.72.3.15|1.2 .840.208307.1.13.104.2.7.2.727879_1 [id number] Thien Ruvalcaba RN [facility] 2023-03-20 19:00:00 64Ed1wXBJXWN4T7wps6Kls66wi0v6TgxhzL jnHpdTOckqs1Mpnl5XZWuWi9zig7L0393-6 9:00:00 Pt returned from radiology. [place] [address]-8Sxwoaovsz department BsunVU3279-21-00K77:09:59[facility] department NoteTXT1.2.840.118540.1.13.104.2.7. 2.294512|[id number] for patient iigp88610-0UqfrHNYYGBGZPI[address] DlbpYxzthieenDspvsmsccEYAZ836389973 4KNGPLIUKJKKHPBELQHUXYF3715-83-58S4 1:09:591.2.840.774430.1.72.3.15|1.2 .840.937172.1.13.104.2.7.2.727879_1 [id number] [facility] 2023-03-20 18:05:00 5NCDTrcyKwEN4ZV9zZeoCjsjrlRoNKxSmj5 /hPYZBnv81w4Y+4KDPXnmcZpqQDNp1527-5 8:05:00 Pt calm, quiet, in bed, RR e/u, at side and call light within reach. 50377-1Fygggvqvu department RtwmUT5941-14-23Z55:13:55[facility] NoteTXT1.2.840.748787.1.13.104.2.7. 2.599713|7549610905QOQknjzfuqe for patient vvvp74254-0AulvWIISTMTJYN[address]TXTX[address] 6BJJPLYWTXPHZMHSSRVGWBS2610-04-77S5 9:13:551.2.840.960976.1.72.3.15|1.2 .840.154815.1.13.104.2.7.2.727879_1 [id number] [facility] 2023-03-20 18:03:43 9hkfm8fgn8jCbIBqktRSSahmtfjdtn5Ohtl eVorCRq+ownDFAZFW5kdHV4A4U50z2455-1 8:03:43 Pt transferred via stretcher to 115 at this time. Report given to AD Cordoba. Pt alert but appears post ictal, slightly anxious VSS. 80192-4Eirihiowg department FyiaKT3119-86-04E93:04:19[facility] department NoteTXT1.2.840.222353.1.13.104.2.7. 2.065535|6859077138VVRjehwhcjt for patient gifo41692-2StfmPI261980775Irbaeu M Davis RN[id number] 9FOSXPXCQDSGTASLGDMSBZD2646-74-28N7 8:04:191.2.840.306150.1.72.3.15|1.2 .840.938784.1.13.104.2.7.2.727879_1 [id number] Lelia Tam RN [facility] 2023-03-20 17:27:33 RJ7LZutlVoPoIlv5mNZ9W+hez0PQ4X0WSDH OOSrv0WzNu9kWvPVbdJb6fp8IhYLg3252-8 7:27:33 ED MD and RN at bedside attempting U/S guided IV access 62208-1Wsbwomare department PayyBP8303-36-89A27:27:51[facility] NoteTXT1.2.840.765904.1.13.104.2.7. 2.881211|[id number] for patient dobx82434-5CthwTMWBCRIACZ[address]vdGalvestonGalvestonTXTX[address] 4XXRQCFVHTWZIFDMXKXRRVX7124-48-21R9 7:27:511.2.840.695473.1.72.3.15|1.2 .840.578553.1.13.104.2.7.2.727879_1 [id number] [facility] 2023-03-20 17:13:11 TNIFILmOu6pf6E/YniwbZc10mGItzwJdz18 33GJmms2eI226dLnWXwFGFUTkUHiU5782-6 7:13:11 Mike Francis III is a 48 year old male presents to the ed with cc of seizure like activity. 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 Pt presents to the [...] vss. To room for eval by provider. 71541-3Hrgnaoyjo department Triage gxflIS1978-01-98H92:18:44[facility] Triage noteTXT1.2.840.694694.1.13.104.2.7. 2.722178|[id number] for patient ugfr32065-5Bsvatflop department HvmoME680854268Yzrrpob Herndon RNUT[address] NrxfPahhsafsdLiaunqbkpQVGJ849619506 9ZLFDKXJIVGLUOEFBUJHYRN7982-35-45R4 7:18:441.2.840.000456.1.72.3.15|1.2 .840.694565.1.13.104.2.7.2.727879_1 [id number] Jose Luis Guido RN [facility] 2023-03-20 16:58:00 TyhGGNAz4sOxDLDtmvo/nomZ/QnEzW1d17t 24xunrZofVpy9o3m0y2SdiVuTwwcL1492-4 6:58:00 [facility] Emergency Department NotePatient Name: Mike Francis IIIDate of : 1975 48 year old maleTreatment Room: Room/bed info not foundMedical Record Number: [id number] Care Physician: ST TRINI NICOLEPatient Escorted by: Family [5]Mode of Arrival: Personal means [1]EMS 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 Spouse does report associated fevers with previous [...] Right 02/12/2022 Surgeon: Adelso Torres MD; Location: [facility] Review of Systems: Review of Systems [...] 1.7 - 2.4 mg/dL COMP. METABOLIC PANEL (63810) NA 138 135 - 145 mmol/L K [...] URINALYSIS CBC WITH DIFF COMP. METABOLIC PANEL (12441) MAGNESIUM VALPROIC ACID, FREE Blood Culture - Peripheral # 1 Blood Culture - Peripheral # 2 Lactic Acid Whole Blood Lactic Acid Whole Blood LAB ONLY COVID INTERPRETATION CONSULT NEUROLOGY Orders Placed This Encounter Medications NaCl 0.9% (NS) bolus infusion 1,000 mL First Provider Eval:ED Events Date/Time Event User Comments 03/20/231711 Medical Screening Begins MD [facility] -- 03/20/231711 First Provider Evaluation MD WAITE [...] and hemodynamically stable emergency department.Diagnosis/Impression as of 03/20/23 1903 Seizure disorder Procedures: ProceduresMDM:Medical Decision MakingProblems Addressed:Seizure [...] RELIEF) 50 MCG/ACTUATION NASAL SPRAY Use 1 [place] in each nostril in the morning and 1 [place] in the evening. GABAPENTIN 300 MG CAPSULE [...] (ONE-A-DAY MEN'S MULTIVITAMIN ORAL) Take by mouth. CCCOQ-7O-LFD-EPA-FISH OIL-D3 (FISH OIL-VIT D3) 360 MG-1,200 MG [...] file Follow-up:Electronically signed by: Joan Waite MD03/20/231906 13578-6Ueboimtmj Emergency department GfdmFW3572-21-03O17:07:04Physician Emergency department NoteTXT1.2.840.686291.1.13.104.2.7. 2.711388|[id number] for patient zfpe83134-1Dadjbsqnn department Note[address] OjrxRhnwzgbukBwjqpepafRNVZ803493654 7PLPJMKXLDKNMTKZHHSKTYG1597-31-47O9 9:07:041.2.840.068027.1.72.3.15|1.2 .840.336908.1.13.104.2.7.2.727879_1 [id number] [facility] 2023-03-20 16:58:00 mqnJuS2XTL+uUjEAPeeAPEEw8iJ63ZqeIIR 4n6QtjxjhKZi+RS3DBetBtFN94uwN2489-2 03-20T16:58:00 Medical Decision MakingTook over patient's care after [...] drug management.Parenteral controlled substances. Maury Hutchison MD03/20/232221 67767-3Xrsvuqsye Emergency department PqnyYJ4968-34-24B30:22:18Physician Emergency department NoteTXT1.2.840.250015.1.13.104.2.7. 2.543249|[id number] for patient xbbz23053-5Pgvuxdzkj department NoteLNEMCARE EMERGENCY PHYSICIAN STAFFEMCARE EMERGENCY PHYSICIAN STAFF[address] Rs[id number] 8SUEPKOFHFWVQXBGCRARFIJ5401-27-84A7 2:22:181.2.840.958756.1.72.3.15|1.2 .840.551974.1.13.104.2.7.2.727879_1 [id number] [facility] EM[facility] PHYSICIAN STAFF [facility] 2023-02-18 08:56:10 VRgroykSGheNQRUKFCJKo7pxwkaUY+hclgb CP6Dl9nZKrzqG6sucxIdLsomgWRsD2079-3 02-18T08:56:10 New prescription sent for qty 240 tabs with 3 refills to last patient until f/u with Dr Vieyra in May, called pt, left detailed message stating med sent to pharmacy. 77658-8Yseyxnaog encounter NswqJZ0623-06-80M25:57:03Telephone encounter NoteTXT1.2.840.358564.1.13.104.2.7. 2.331779|[id number] for patient [address] DqfcCepxkmmliWsfugrxqpPZBO477537388 9QJRIVDXTIMUNJNKIOIXNIW7912-30-44W2 8:57:031.2.840.020991.1.72.3.15|1.2 .840.728685.1.13.104.2.7.2.727879_1 [id number] [facility] 2023-02-17 10:51:27 Ow5vUCPplyI/goTdi/P1Pa9+68Gk/V/hrT4 7LdDKfUhHKJfg+wQKBVjt1S6vBYbd6898-2 02-17T10:51:27 Patient calling stating that patient was prescribed [...] Dr Vieyra 05/2023. Please contact patient at [phone] (home) 33874-7Sookbaozw encounter WnxaTP4220-60-90T69:53:45Telephone encounter NoteTXT1.2.840.268019.1.13.104.2.7. 2.424116|[id number] for patient onxv989557914Kihz A GutierrezU[address] NegdNsjegqknhEhjgjzawwDDRU782098396 0DUNJNOKPDTUCADCNKGOKTJ8640-30-78A6 0:53:451.2.840.310898.1.72.3.15|1.2 .840.353149.1.13.104.2.7.2.727879_1 [id number] Gadiel Medrano [facility] 2023-02-17 08:45:32 oqt6cA2/XXmdsu87Afl3Gb2Vmg24GLk12Np 00fS6/whqTAbirwQqISOk0n6f3GDY6962-9 02-17T08:45:32 TRANSITIONAL CARE MANAGEMENT ASSESSMENT02/17/2023 Mike Francis III207274PMeldarren Francis III is a 47 year old Black or male was admitted on 02/13/[address] [facility] ([facility] 6B. He was discharged on 02/16/23 with discharge disposition of HR- Routine Discharge.Admitting Physician: Joao Zurita Diagnosis: Altered mental status [R41.82]Pt.'s Verbalized understanding discharge instructions. Linked Episodes Type: Episode: Status: Noted: Resolved: Last update: Updated by: TRANSITION OF CARE tcm Active 02/17/2023 02/17/2023 8:45 AM Leslie Palm LVN Comments: TCM Tqk-yhff-ax-face outreach documentation:Discharge AssessmentChart Assessed: 02/17/23TCM Outreach Completed: 02/17/23Do you have a few minutes to speak with me about how you are doing at home?: YesDischarge InstructionsDo you understand your at-home instructions?: YesMedicationsHave you filled your prescriptions and do you have them in your home? : YesDo you know how to take your medications?: YesCan you provide me with the names or descriptions of any acbp-haf-pliiucl or supplements you are currently taking?: YesSuppliesDid [...] Provider Department Dept Phone 05/23/2023 1:30 PM (Cmky), Girish [facility], [place] [phone] 05/27/2023 3:00 PM Elin Vieyra MD [facility] Neurology, PCP [place] [phone] 06/03/2023 8:45 AM Arina Smart- Infusion Chair [facility] [phone] 78488-8Xygdviulm encounter VrynKA3098-83-08V46:46:38Telephone encounter NoteTXT1.2.840.776411.1.13.104.2.7. 2.319637|[id number] for patient noxj811701665Wxzgjebojr Rivas [address] UyooJstcqcyqyOrgvcdbjpPLPX405669953 9NGYXSXLOTYJAAGLOSNKQFR0140-17-69B6 8:46:381.2.840.137384.1.72.3.15|1.2 .840.066522.1.13.104.2.7.2.727879_1 [id number] Leslie Palm LVN [facility] 2023-02-16 11:42:24 5n8O68E6dgnCxyilqm/iOGDhTTIw0rb4F2l i6z9yNREYVuN2M59Xb3YlRHDNNS6H2881-4 02-16T11:42:24 Problem: Discharge PlanningGoal: Adequate for discharge02/16/2023 1142 by Ramonita Mondragon RNOutcome: Resolved02/16/2023 1051 by Ramonita Mondragon RNOutcome: Adequate for discharge Problem: Falls, Risk [...] Ramonita Mondragon RNOutcome: Resolved02/16/2023 1051 by Ramonita Mondargon RNOutcome: Adequate for discharge 67949-9Vpqa of care ackvDA1136-70-12U14:42:28Plan of care noteTXT1.2.840.635203.1.13.104.2.7. 2.927165|5672220455SENtnrlzojs for patient rmds188503737Kxkbx E Roos [address]TXTX[address] 7XRAUKFIOTFJTOGMRXLLAHP1837-79-64N5 1:42:281.2.840.477861.1.72.3.15|1.2 .840.900334.1.13.104.2.7.2.727879_1 [id number] Ramonita Mondragon [facility] 2023-02-16 10:51:56 2+omJvz9rHuyfLgmRTJmk3nRTCVv+AneI4c T0V+8QmADFjQHO00+992Xv/xxuq804310-4 7-26T10:51:56 Problem: Discharge PlanningGoal: Adequate for dischargeOutcome: Adequate for discharge Problem: Falls, Risk ofGoal: Absence of fallsOutcome: Adequate for discharge Problem: Mental Status - Impaired, Risk ofGoal: Mental status restored to baselineOutcome: Adequate for dischargeGoal: Absence of physical injuryOutcome: Adequate for discharge 05142-4Lekv of care uxmyXU3459-21-15N58:52:00Plan of care noteTXT1.2.840.678481.1.13.104.2.7. 2.314512|2252198725YXLadyvacpd for patient [id number] 5MJGFUIAJKZLINSTJPLPNOF0219-83-16B9 0:52:001.2.840.933188.1.72.3.15|1.2 .840.410913.1.13.104.2.7.2.727879_1 [id number] [facility] 2023-02-15 23:47:29 zoUuA7QIT0gD9H4p/gjzLwF8nJweRJh5z7x c9bdIOnZcba3Se9VUAGUsLvI8o7zd6713-9 3:47:29 Problem: Discharge PlanningGoal: Adequate for dischargeOutcome: Progressing as expected Problem: Falls, Risk ofGoal: Absence of fallsOutcome: Progressing as expected Problem: Mental Status - Impaired, Risk ofGoal: Mental status restored to baselineOutcome: Progressing as expectedGoal: Absence of physical injuryOutcome: Progressing as expected 26313-0Zhxw of care kkozLX4924-44-61E55:47:35Plan of care noteTXT1.2.840.246378.1.13.104.2.7. 2.981680|6135707953ZHLhrxzkbtr for patient esxj331593516Rqlvgitgw Jose RNUT[id number] 1DAFHUVAHKWYPPVPNEAUJWA9474-22-29T7 3:47:351.2.840.392751.1.72.3.15|1.2 .840.067539.1.13.104.2.7.2.727879_1 [id number] Haven Saucedo RN [facility] 2023-02-15 12:33:10 15l9NlXjDQzrXxmCV7uojju19TyKgmtPGqB 1oKnHV5D/muiK1pDFz6utHOLAQctR9392-0 02-15T12:33:10 Problem: Discharge PlanningGoal: Adequate for dischargeOutcome: Progressing as expected Problem: Falls, Risk ofGoal: Absence of fallsOutcome: Progressing as expected Problem: Mental Status - Impaired, Risk ofGoal: Mental status restored to baselineOutcome: Progressing as expectedGoal: Absence of physical injuryOutcome: Progressing as expected 85798-0Ylkd of care avucHR8596-55-35M77:33:15Plan of care noteTXT1.2.840.383323.1.13.104.2.7. 2.494877|4652787254CDWwavzcxbm for patient [id number] 5KWBRCRUIRJRIFEYLHPIOCV4123-71-20N3 2:33:151.2.840.658205.1.72.3.15|1.2 .840.289961.1.13.104.2.7.2.727879_1 [id number] [facility] 2023-02-14 05:48:59 nFPOufefIsao4sGHdsqW0Qqin4HOUGF1Y/T 9Ln4FxCr/j29QZ+fvLnYSpKwvFO+Y0497-5 05:48:59 Problem: Discharge PlanningGoal: Adequate for dischargeOutcome: Progressing as expected Problem: Falls, Risk ofGoal: Absence of fallsOutcome: Progressing as expected Problem: Mental Status - Impaired, Risk ofGoal: Mental status restored to baselineOutcome: Progressing as expectedGoal: Absence of physical injuryOutcome: Progressing as expected 47583-6Ormf of care qxarPP5244-03-14N93:49:02Plan of care noteTXT1.2.840.708754.1.13.104.2.7. 2.007989|3607894292EZOovwdvckx for patient [address] YnsnPjavewxenDlrvphtgdGOSL292407661 9BKGTAALOUTYGATHKDQMVNQ1684-22-51G5 5:49:021.2.840.834875.1.72.3.15|1.2 .840.638632.1.13.104.2.7.2.727879_1 [id number] [facility]
[2023-12-02] MEDS ORDERED: LORazepam 2 MG/ML VIAL ONE (23:45)
[2023-12-03 00:10] LABS: Absolute Basophils 0.1 K/uL (0-0.5); Absolute Monocytes 0.6 K/uL (0.1-1.3); Absolute Neutrophil 5.4 K/uL (1.8-8.0); Basophils % 1.3 % (0-1.3); Eosinophils % 0.1 % (0-4.4); Hematocrit 36.6 % (39.6-49.0); Hemoglobin 11.7 g/dL (13.6-17.9); Lymphocytes % 14.1 % (15.3-44.8); MCHC 32.1 g/dL (32.0-36.0); MCV 87.2 fL (80-100); MPV 8.1 fL (7.6-11.3); Neutrophils % 76.5 % (41.7-73.7); Nucleated Red Blood Cells % 0.1 % (0-0); Platelets 255 thou/uL (152-406); RBC Red Blood Cell Count 4.19 M/uL (4.33-5.43); Red Cell Distribution Width 15.3 % (12.1-15.2)
[2023-12-03 00:32] LABS: Albumin 3.4 g/dL (3.4-5.0); Albumin/Globulin Ratio 0.9 (1.1-1.8); Anion Gap 10.8 mEq/L (5.0-15.0); Bilirubin Total 0.3 mg/dL (0.2-1.0); Globulin 3.6 g/dL (2.3-3.5)
[2023-12-03 00:34] LABS: Magnesium 1.9 mg/dL (1.6-2.4); Potassium 3.8 mEq/L (3.5-5.1)
--- NOTE | 2023-12-03 02:47 | ER ---
Nurse's Notes [facility] Name: Mike Francis III Age: 48 yrs Sex: Male : 1975 Arrival Date: 12/02/2023 Time: 23:35 Bed 5 Private MD: Diagnosis: Breakthrough seizure Presentation: 12/01 23:40 Chief complaint: EMS states: sudden onset of seizure.became non verbal and non rv ambulatory while trying to get out of the truck. Coronavirus screen: At this time, the client does not indicate any symptoms associated with coronavirus-19. Ebola Screen: No symptoms or risks identified at this time. Initial Sepsis Screen: Does the patient meet any 2 criteria? No. Patient's initial sepsis screen is negative. Does the patient have a suspected source of infection? No. Patient's initial sepsis screen is negative. Risk Assessment: Do you want to hurt yourself or someone else? Unable to obtain. Onset of symptoms was December 02, 2023. 23:40 Method Of Arrival: EMS: [facility] rv 23:40 Acuity: IFEANYI 2 rv Triage Assessment: 23:42 General: Appears Behavior is cooperative. Pain: Denies pain. Neuro: Level of rv Consciousness is confused. Cardiovascular: Capillary refill < 3 seconds Patient's skin is warm and dry. Respiratory: Airway is patent Respiratory effort is even, unlabored. GI: No signs and/or symptoms were reported involving the gastrointestinal system. : No signs and/or symptoms were reported regarding the genitourinary system. Derm: Skin is intact. Historical: - Allergies: 23:42 Keppra; rv 23:42 SHELLFISH; rv - PMHx: 23:42 brain lesions/swelling of the brain; Diabetes - NIDDM; High Cholesterol; Hypertension; rv Mild Heart Attack x 2; - PSHx: 23:42 Appendectomy; brain surgery (January 2022); rv - Immunization history:: Adult Immunizations up to date. - Infectious Disease History:: Denies. - Social history:: Smoking status: unknown. - Family history:: not pertinent. Screenin:43 [place] [facility] Fall Risk Assessment (Adult) History of falling in the last 3 months, rv including since admission No falls in past 3 months (0 pts) Confusion or Disorientation Yes (5 pts) Impaired Gait Yes (1 pt) Altered Elimination Score/Fall Risk Level 3 or more points = High Risk Oriented to surroundings, Maintained a safe environment, Educated pt \T\ family on fall prevention, incl call for assistance when getting out of bed, Assessed \T\ reinforced patient's understanding of fall precautions. Abuse screen: Denies threats or abuse. Denies injuries from another. Nutritional screening: No deficits noted. Tuberculosis screening: No symptoms or risk factors identified. Vital Signs: 23:40 BP 186 / 98; Pulse 86; Resp 17; Temp 98; Pulse Ox 100% on R/A; rv 12/02 03:04 BP 145 / 85; Pulse 88; Resp 18; Temp 98; Pulse Ox 100% ; rv [place] Coma Score: 03:05 Eye Response: spontaneous(4). Motor Response: obeys commands(6). Verbal Response: rv oriented(5). Total: 15. ED Course: 12/01 23:36 Patient arrived in ED. rv1 23:37 César Vincent MD is Attending Physician. rt 23:40 Rocael Scott RN is Primary Nurse. rv 23:42 Triage completed. rv 23:42 Arm band placed on right wrist. rv 23:43 Patient has correct armband on for positive identification. Client placed on continuous rv cardiac and pulse oximetry monitoring. NIBP monitoring applied. nurse monitoring on. 23:43 No provider procedures requiring assistance completed. rv 12/02 00:01 Magnesium Sent. rv 00:01 CMP Sent. rv 00:02 Seizure precautions initiated. rv 00:02 CBC with Diff Sent. rv 00:02 Initial lab(s) drawn, by pr, sent to lab. Inserted saline lock: 22 gauge in left hand, rv using aseptic technique. Blood collected. 03:05 IV discontinued, intact, bleeding controlled, No redness/swelling at site. Pressure rv dressing applied. Administered Medications: 12/01 23:50 Drug: LORazepam IM 2 mg IM once Route: IM; Site: right deltoid; rv 12/02 03:05 Follow up: Response: No adverse reaction; Marked relief of symptoms rv Medication: 12/01 23:43 VIS not applicable for this client. rv Outcome: 12/02 02:46 Discharge ordered by . rt 03:05 Discharged to home ambulatory, via wheelchair, with family, rv 03:05 Condition: good 03:05 Discharge instructions given to patient, family, Instructed on discharge instructions, follow up and referral plans. Demonstrated understanding of instructions, follow-up care, 03:05 Patient left the ED. rv Signatures: Rocael Scott RN RN rv César Vincent MD MD rt [place] rv1
--- NOTE | 2023-12-03 02:47 | EDPHYS ---
Physician Documentation [facility] Name: Mike Francis III Age: 48 yrs Sex: Male : 1975 Arrival Date: 12/02/2023 Time: 23:35 Bed 5 Private MD: ED Physician César Vincent HPI: 12/02 03:07 This 48 yrs old Black Male presents to ER via EMS with complaints of seizure. rt 03:07 Patient with history of seizure disorder presents to the ED with breakthrough seizure rt starting about 30 minutes prior to arrival. Patient is on Depakote for seizures, reportedly took a dose at 9 PM, which is his usual time. The states that he has had poor sleep recently due to his schedule. Seizure reportedly stopped. Denies other acute complaints, symptoms are moderate in severity, no other aggravating or alleviating factors.. Historical: - Allergies: 12/01 23:42 Keppra; rv 23:42 SHELLFISH; rv - PMHx: 23:42 brain lesions/swelling of the brain; Diabetes - NIDDM; High Cholesterol; Hypertension; rv Mild Heart Attack x 2; - PSHx: 23:42 Appendectomy; brain surgery (January 2022); rv - Immunization history:: Adult Immunizations up to date. - Infectious Disease History:: Denies. - Social history:: Smoking status: unknown. - Family history:: not pertinent. ROS: 12/02 03:07 Constitutional: Negative for fever, chills, and weight loss, Cardiovascular: Negative rt for chest pain, palpitations, and edema, Respiratory: Negative for shortness of breath, cough, wheezing, and pleuritic chest pain, Abdomen/GI: Negative for abdominal pain, nausea, vomiting, diarrhea, and constipation, Skin: Negative for injury, rash, and discoloration, Neuro: Positive for seizure activity, Exam: 03:07 Constitutional: This is a well developed, well nourished patient who is awake, alert, rt and in no acute distress. Head/Face: Normocephalic, atraumatic. Chest/axilla: Normal chest wall appearance and motion. Nontender with no deformity. No lesions are appreciated. Cardiovascular: Regular rate and rhythm with a normal S1 and S2. No gallops, murmurs, or rubs. Normal PMI, no JVD. No pulse deficits. Respiratory: Lungs have equal breath sounds bilaterally, clear to auscultation and percussion. No rales, rhonchi or wheezes noted. No increased work of breathing, no retractions or nasal flaring. Abdomen/GI: Soft, non-tender, with normal bowel sounds. No distension or tympany. No guarding or rebound. No evidence of tenderness throughout. Skin: Warm, dry with normal turgor. Normal color with no rashes, no lesions, and no evidence of cellulitis. MS/ Extremity: Pulses equal, no cyanosis. Neurovascular intact. Full, normal range of motion. 03:07 Neuro: Currently postictal, somewhat repetitious on speech, otherwise normal. Cranial nerves II through XII intact, strength and sensation intact in upper and lower extremities., Vital Signs: 12/01 23:40 BP 186 / 98; Pulse 86; Resp 17; Temp 98; Pulse Ox 100% on R/A; rv 12/02 03:04 BP 145 / 85; Pulse 88; Resp 18; Temp 98; Pulse Ox 100% ; rv [place] Coma Score: 03:05 Eye Response: spontaneous(4). Motor Response: obeys commands(6). Verbal Response: rv oriented(5). Total: 15. MDM: 12/01 23:37 Patient medically screened. rt 12/02 03:07 Differential Diagnosis Breakthrough seizure, electrolyte disturbance. Data reviewed: rt vital signs, nurses notes, lab test result(s). I considered the following discharge prescriptions or medication management in the emergency department Medications were administered in the Emergency Department. See MAR. Test considered but Not performed: CT: Patient with pre-existing seizure history, no apparent trauma, change to seizure pattern. CT scan of the head is not indicated.. Care significantly affected by the following chronic conditions: Seizure disorder. Counseling: I had a detailed discussion with the patient and/or guardian regarding the historical points, exam findings, and any diagnostic results supporting the discharge/admit diagnosis, lab results, the need for outpatient follow up, to return to the emergency department if symptoms worsen or persist or if there are any questions or concerns that arise at home. Response to treatment: the patient's symptoms have markedly improved after treatment. 12/01 23:41 Order name: CBC with Diff; Complete Time: 00:36 rt 12/01 23:41 Order name: CMP; Complete Time: 00:36 rt 12/01 23:41 Order name: Magnesium; Complete Time: 00:36 rt Administered Medications: 12/01 23:50 Drug: LORazepam IM 2 mg IM once Route: IM; Site: right deltoid; rv 12/02 03:05 Follow up: Response: No adverse reaction; Marked relief of symptoms rv Disposition Summary: 12/03/23 02:46 Discharge Ordered Notes: Location: Home rt Problem: an acute exacerbation rt Symptoms: have improved rt Condition: Stable rt Diagnosis - Breakthrough seizure rt Followup: rt - With: Private Physician - When: 2 - 3 days - Reason: Discharge Instructions: - Discharge Summary Sheet rt - Seizure, Adult rt Forms: - Medication Reconciliation Form rt - Antibiotic Education rt - Prescription Opioid Use rt - Patient Portal Instructions rt - Leadership Thank You Letter rt Signatures: Dispatcher [employer] Rocael Brown, AD RN rv César Vincent MD MD rt
[2023-12-03 03:37] VITALS: BP 145/85; TEMP 98; O2SAT 100
== END 2023-12-03 03:05 | disposition home or self-care (01) ==
LOC: ER 23:35
DX: G40.509 Epileptic seizures related to external causes, not intractable, without status epilepticus (principal); I10 Essential (primary) hypertension; I25.2 Old myocardial infarction; Z88.8 Allergy status to other drugs, medicaments and biological substances; Z91.013 Allergy to seafood
CPT/HCPCS: 36415; 80053; 83735; 85025; 96372; 99285

== ENCOUNTER 2024-01-22 18:05 | Emergency (ER) | payer OTHER ==
--- OUTSIDE RECORDS SUMMARY | 2024-01-22 18:15 | XMS REPORT | Continuity of Care Document ---
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 LYCOPENE (ONE-A-DAY MEN'S MULTIVITAMI N ORAL) 10-26 15:16: 05 Yes Take by mouth. [facility] it[facility] pantoprazol e (PROTONIX) EC tablet 40 mg 10-26 14:00: 00 Yes 40mg 40 mg, Oral, DAILY, First dose on Tue10/26/22 at 0900, Until Discontinu ed, Routine [facility] lisinopriL (PRINIVIL,Z ESTRIL) tablet 40 mg 10-26 14:00: 00 Yes 40mg 40 mg, Oral, DAILY, First dose on Tue10/26/22 at 0900, Until Discontinu ed [facility] amLODIPine (NORVASC) tablet 10 mg 10-26 14:00: 00 Yes 10mg 10 mg, Oral, DAILY, First dose on Tue10/26/22 at 0900, Until Discontinu ed, Routine [facility] atorvastati n (LIPITOR) tablet 20 mg 10-26 02:00: 00 Yes 20mg 20 mg, Oral, QHS, First dose on Tue10/25/22 at 2100, Until Discontinu ed, Routine [facility] heparin (porcine) injection 5,000 Units 10-26 01:00: 00 Yes 5000U 5,000 Units, Subcutaneo us, Q12H, First dose on Tue10/25/22 at 2000, Until Discontinu ed, Routine [facility] risperiDONE (RISPERDAL) tablet 1 mg 10-26 01:00: 00 Yes 1mg 1 mg, Oral, BID, First dose on Tue10/25/22 at 2000, Until Discontinu ed, Routine [facility] divalproex 250 mg EC tablet 10-26 00:00: 00 01-25 04:59 :00 No [id number] 1750mg Take 7 tablets by mouth every 12 (twelve) hours for 90 days. [facility] carvediloL (COREG) tablet 25 mg 10-25 22:00: 00 Yes 25mg 25 mg, Oral, BID MEALS, First dose on Tue10/25/22 at 1700, Until Discontinu ed, Routine [facility] gabapentin (NEURONTIN) capsule 300 mg 10-25 19:00: 00 Yes 300mg 300 mg, Oral, TID, First dose on Tue10/25/22 at 1400, Until Discontinu ed, Routine [facility] Sliding Scale Insulin - Lispro (HumaLOG) + Fsbg Testing 10-25 17:00: 00 Yes Subcutaneo us, TID MEALS+HS, First dose on Tue10/25/22 at 1200, Until Discontinu ed, Routine [facility] hydrALAZINE (APRESOLINE ) tablet 25 mg 10-25 17:00: 00 Yes 25mg 25 mg, Oral, Q6H, First dose on Tue10/25/22 at 1200, Until Discontinu ed, Routine [facility] dextrose 10% (D10W) bolus infusion 250 mL [...] blood glucose is < 80 mg/dL, repeat.
[facility] glucagon (GLUCAGEN DIAGNOSTIC KIT) injection 1 mg 10-25 15:51: 50 Yes 1mg 1 mg, Intramuscu lar, PRN, Starting on Tue10/25/22 at 1051, Until Discontinu ed, HENRY, Blood Glucose < or = 70 mg/dL and patient is NPO, unable to swallow or has mental changes. [facility] predniSONE (DELTASONE) tablet 5 mg 10-25 15:15: 00 Yes 5mg 5 mg, Oral, DAILY, First dose on Tue10/25/22 at 1015, Until Discontinu ed, Routine [facility] acetaminoph en (TYLENOL) tablet 650 mg 10-25 15:11: 20 Yes 650mg 650 mg, Oral, Q6HPRN, Starting on Tue10/25/22 at 1011, Until Discontinu ed, Routine, Pain (scale 4-6) [facility] docusate (COLACE) capsule 100 mg 10-25 15:11: 20 Yes 100mg 100 mg, Oral, QDAILYPRN, Starting on Tue10/25/22 at 1011, Until Discontinu ed, Routine, Constipati on [facility] hydrOXYzine (ATARAX) tablet 10 mg 10-25 15:10: 10 Yes 10mg 10 mg, Oral, Q6HPRN, Starting on Tue10/25/22 at 1010, Until Discontinu ed, Routine, Itching [facility] lisinopriL 40 mg tablet 08-17 00:00: 00 Yes [id number] 40mg Take 1 tablet by mouth in the morning. [facility] atorvastati n 20 mg tablet 08-17 00:00: 00 Yes [id number] 20mg Take 1 tablet by mouth at bedtime. [facility] gabapentin 300 mg capsule 08-17 00:00: 00 Yes [id number] 300mg Take 1 capsule by mouth in the morning and 1 capsule at noon and 1 capsule in the evening. [facility] hydrALAZINE 25 mg tablet 08-17 00:00: 00 Yes [id number] 25mg Take 1 tablet by mouth every 6 (six) hours. [facility] metFORMIN 1,000 mg tablet 08-17 00:00: 00 Yes [id number] 1000mg Take 1 tablet by mouth in the morning and 1 tablet in the evening. Take with meals. [facility] risperiDONE 1 mg tablet 08-17 00:00: 00 Yes [id number] 1mg Take 1 tablet by mouth in the morning and 1 tablet in the evening. [facility] pantoprazol e 40 mg EC tablet 08-17 00:00: 00 Yes [id number] 40mg Take 1 tablet by mouth in the morning. [facility] amLODIPine 10 mg tablet 08-17 00:00: 00 Yes [id number] 10mg Take 1 tablet by mouth in the morning. [facility] carvediloL (COREG) 25 mg tablet 08-17 00:00: 00 Yes [id number] 25mg Take 1 tablet by mouth in the morning and 1 tablet in the evening. Take with meals. [facility] ferrous sulfate 325 mg (65 mg iron) tablet 08-17 00:00: 00 Yes [id number] 325mg Take 1 tablet by mouth every other day. [facility] hydrOXYzine 10 mg tablet 08-17 00:00: 00 Yes [id number] 10mg Take 1 tablet by mouth every 6 (six) hours as needed for Itching. [facility] predniSONE 5 mg tablet 08-17 00:00: 00 07-05 05:59 :00 No [id number] Take 4 tablets by mouth daily for 7 days, THEN 3.5 tablets daily for 7 days, THEN 3 tablets daily for 7 days, THEN 2 tablets daily for 300 days. [facility] diphenhydrA MINE 25 mg tablet 08-17 00:00: 00 03-21 00:00 :00 No [id number] 25mg Take 1 tablet by mouth as needed for Allergies (Before infusion). [facility] divalproex 500 mg EC tablet 08-17 00:00: 00 10-26 00:00 :00 No [id number] 1500mg Take 3 tablets by mouth every 12 (twelve) hours. [facility] atorvastati n (LIPITOR) 20 mg tablet 08-12 09:11: 44 08-12 00:00 :00 No 20mg Take 20 mg by mouth at bedtime. [facility] vitamin B-12 100 mcg tablet 08-12 09:04: 51 08-12 00:00 :00 No 2500ug Take 2,500 mcg by mouth daily. [facility] tiZANidine 4 mg tablet 08-12 09:03: 27 08-12 00:00 :00 No tizanidine 4 mg tablet Take 1 tablet every 12 hours by oral route as needed for 30 days. [facility] HYDROcodone -acetaminop hen 7.5-325 mg per tablet 08-12 09:03: 15 08-12 00:00 :00 No hydrocodon e 7.5 mg-acetami nophen 325 mg tablet [facility] FLUoxetine 40 mg capsule 08-12 09:03: 05 08-12 00:00 :00 No fluoxetine 40 mg capsule [facility] etodolac 500 mg tablet 08-12 09:02: 59 08-12 00:00 :00 No etodolac 500 mg tablet TAKE ONE TABLET BY MOUTH TWICE A DAY NEEDED [facility] Diclofenac Sodium 1 % gel 08-12 09:02: 47 08-12 00:00 :00 No diclofenac 1 % topical gel [facility] citalopram 20 mg tablet 08-12 09:02: 41 08-12 00:00 :00 No citalopram 20 mg tablet [facility] busPIRone 15 mg tablet 08-12 09:02: 28 08-12 00:00 :00 No buspirone 15 mg tablet [facility] busPIRone 30 mg tablet 08-12 09:02: 16 08-12 00:00 :00 No buspirone 30 mg tablet [facility] baclofen 10 mg tablet 08-12 09:01: 53 08-12 00:00 :00 No baclofen 10 mg tablet Take 1 tablet every 12 hours by oral route as needed for 30 days. [facility] ALPRAZolam 0.5 mg tablet 08-12 09:00: 07 08-12 00:00 :00 No alprazolam 0.5 mg tablet [facility] amLODIPine 10 mg tablet 08-12 00:00: 00 08-17 00:00 :00 No [id number] 10mg Take 1 tablet by mouth in the morning. [facility] carvediloL (COREG) 25 mg tablet 08-12 00:00: 00 08-17 00:00 :00 No [id number] 25mg Take 1 tablet by mouth in the morning and 1 tablet in the evening. Take with meals. [facility] diphenhydrA MINE 25 mg tablet 08-12 00:00: 00 08-17 00:00 :00 No [id number] 25mg Take 1 tablet by mouth as needed for Allergies (Before infusion). [facility] divalproex 500 mg EC tablet 08-12 00:00: 00 08-17 00:00 :00 No [id number] 1500mg Take 3 tablets by mouth every 12 (twelve) hours. [facility] ferrous sulfate 325 mg (65 mg iron) tablet 08-12 00:00: 00 08-17 00:00 :00 No [id number] 325mg Take 1 tablet by mouth every other day. [facility] gabapentin 300 mg capsule 08-12 00:00: 00 08-17 00:00 :00 No [id number] 300mg Take 1 capsule by mouth in the morning and 1 capsule at noon and 1 capsule in the evening. [facility] hydrOXYzine 10 mg tablet 08-12 00:00: 00 08-17 00:00 :00 No [id number] 10mg Take 1 tablet by mouth every 6 (six) hours as needed for Itching. [facility] lisinopriL 40 mg tablet 08-12 00:00: 00 08-17 00:00 :00 No [id number] 40mg Take 1 tablet by mouth in the morning. [facility] pantoprazol e 40 mg EC tablet 08-12 00:00: 00 08-17 00:00 :00 No [id number] 40mg Take 1 tablet by mouth in the morning. [facility] predniSONE 5 mg tablet 08-12 00:00: 00 08-17 00:00 :00 No [id number] Take 4 tablets by mouth daily for 7 days, THEN 3.5 tablets daily for 7 days, THEN 3 tablets daily for 7 days, THEN 2 tablets daily for 300 days. [facility] atorvastati n 20 mg tablet 08-12 00:00: 00 08-17 00:00 :00 No [id number] 20mg Take 1 tablet by mouth at bedtime. [facility] hydrALAZINE 25 mg tablet 08-12 00:00: 00 08-17 00:00 :00 No [id number] 25mg Take 1 tablet by mouth every 6 (six) hours. [facility] risperiDONE 1 mg tablet 08-12 00:00: 00 08-17 00:00 :00 No [id number] 1mg Take 1 tablet by mouth in the morning and 1 tablet in the evening. [facility] metFORMIN 1,000 mg tablet 08-12 00:00: 00 08-17 00:00 :00 No [id number] 1000mg Take 1 tablet by mouth in the morning and 1 tablet in the evening. Take with meals. [facility] divalproex 500 mg EC tablet 2021-07 229 00:00: 00 08-12 00:00 :00 No [id number] 1500mg Take 3 tablets by mouth every 12 (twelve) hours. [facility] ALPRAZolam 0.5 mg tablet 2021-07 10:12: 34 Yes alprazolam 0.5 mg tablet [facility] baclofen 10 mg tablet 2021-07 10:12: 34 Yes baclofen 10 mg tablet Take 1 tablet every 12 hours by oral route as needed for 30 days. [facility] busPIRone 15 mg tablet 2021-07 10:12: 34 Yes buspirone 15 mg tablet [facility] busPIRone 30 mg tablet 2021-07 10:12: 34 Yes buspirone 30 mg tablet [facility] citalopram 20 mg tablet 2021-07 10:12: 34 Yes citalopram 20 mg tablet [facility] Diclofenac Sodium 1 % gel 2021-07 10:12: 34 Yes diclofenac 1 % topical gel [facility] etodolac 500 mg tablet 2021-07 10:12: 34 Yes etodolac 500 mg tablet TAKE ONE TABLET BY MOUTH TWICE A DAY NEEDED [facility] FLUoxetine 40 mg capsule 2021-07 10:12: 34 Yes fluoxetine 40 mg capsule [facility] HYDROcodone -acetaminop hen 7.5-325 mg per tablet 2021-07 10:12: 34 Yes hydrocodon e 7.5 mg-acetami nophen 325 mg tablet [facility] tiZANidine 4 mg tablet 2021-07 10:12: 34 Yes tizanidine 4 mg tablet Take 1 tablet every 12 hours by oral route as needed for 30 days. [facility] riTUXimab (RITUXAN) 1,000 mg in NaCl 0.9% (NS) 1,000 mL infusion 2021-07 15:30: 00 06-03 19:45 :00 No [id number] 1000mg 1,000 mg, IV Infusion, ONCE, On [...] d 30 minutes prior to each infusion. [place] [facility] management (e.g., glucocorti coids, epinephrin e, [...] occur in patients receiving Rituximab. &nbs p;
[facility] diphenhydrA MINE (BENADRYL) tablet 25 mg 2021-07 14:45: 00 06-03 14:39 :00 No [id number] 25mg 25 mg, Oral, ONCE, 1 dose, On [place] 06/03/22 at 0845, Routine [facility] acetaminoph en (TYLENOL) tablet 650 mg 2021-07 14:45: 00 06-03 14:39 :00 No [id number] 650mg 650 mg, Oral, ONCE, 1 dose, On [place] 06/03/22 at 0845, Routine [facility] ibuprofen (ADVIL) 200 mg tablet 2021-07 14:12: 18 06-03 00:00 :00 No 200mg Take 200 mg by mouth 2 (two) times daily with meals. [facility] acetaminoph en (TYLENOL) 325 mg tablet 2021-07 00:00: 00 03-21 00:00 :00 No [id number] 650mg Take 2 tablets by mouth as needed (Before infusion). [facility] diphenhydrA MINE 25 mg tablet 2021-07 00:00: 08-12 00:00 :00 No [id number] 25mg Take 1 tablet by mouth as needed for Allergies (Before infusion). [facility] riTUXimab (RITUXAN) 1,000 mg in NaCl 0.9% (NS) 1,000 mL infusion 2021-07 16:00: 05-20 21:37 :00 No [id number] 1000mg 1,000 mg, IV Infusion, ONCE, On [...] d 30 minutes prior to each infusion. [place] medical management (e.g., glucocorti coids, epinephrin e, [...] occur in patients receiving Rituximab. &nbs p;
[facility] diphenhydrA MINE (BENADRYL) tablet 25 mg 2021-07 15:45: 00 05-20 14:50 :00 No [id number] 25mg 25 mg, Oral, ONCE, 1 dose, On [place] 05/20/22 at 1045, Routine [facility] acetaminoph en (TYLENOL) tablet 650 mg 2021-07 15:45: 00 05-20 14:50 :00 No [id number] 650mg 650 mg, Oral, ONCE, 1 dose, On [place] 05/20/22 at 1045, Routine [facility] omega-3s-dh a-epa-fish oil-D3 (FISH OIL-VIT D3) 360 mg-1,200 mg -1,000 unit Cap 2021-07 15:58: 17 Yes Take by mouth. [facility] atorvastati n (LIPITOR) 20 mg tablet 2021-07 15:58: 17 Yes 20mg Take 20 mg by mouth at bedtime. [facility] MULTIVITS-M INERALS/FA/ LYCOPENE (ONE-A-DAY MEN'S MULTIVITAMI N ORAL) 2021-07 15:58: 17 Yes Take by mouth. [facility] ibuprofen (ADVIL) 200 mg tablet 2021-07 15:58: 17 Yes 200mg Take 200 mg by mouth 2 (two) times daily with meals. [facility] vitamin B-12 100 mcg tablet 2021-07 15:58: 17 Yes 2500ug Take 2,500 mcg by mouth daily. [facility] hydrALAZINE (APRESOLINE ) tablet 25 mg 2021-07 15:00: 00 Yes 25mg 25 mg, Oral, TID, First dose (after last modificati on) on [facility] 05/08/22 at 1000, Until Discontinu ed, Routine [facility] gabapentin (NEURONTIN) capsule 300 mg 2021-07 01:00: 00 Yes 300mg 300 mg, Oral, TID, First dose on Tue05/07/22 at 2000, Until Discontinu ed, Routine [facility] azaTHIOprin e 50 mg tablet 2021-07 00:00: 00 08-12 00:00 :00 No [id number] 100mg Take 2 tablets by mouth in the morning. [facility] gabapentin 300 mg capsule 2021-07 00:00: 00 08-12 00:00 :00 No [id number] 300mg Take 1 capsule by mouth in the morning and 1 capsule at noon and 1 capsule in the evening. Do all this for 180 days. [facility] hydrALAZINE 25 mg tablet 2021-07 00:00: 00 08-07 05:59 :00 No [id number] 25mg Take 1 tablet by mouth in the morning and 1 tablet at noon and 1 tablet in the evening. Do all this for 90 days. [facility] apixaban (ELIQUIS) 5 mg tablet 2021-07 00:00: 00 08-07 05:59 :00 No [id number] 5mg Take 1 tablet by mouth in the morning and 1 tablet in the evening. Do all this for 90 days. Indication s: history of deep vein thrombosis [facility] apixaban (ELIQUIS) 5 mg tablet 2021-07 00:00: 00 05-08 00:00 :00 No [id number] 10mg Take 2 tablets by mouth in the morning and 2 tablets in the evening. Do all this for 7 days. Indication s: history of deep vein thrombosis [facility] aspirin 81 mg chewable tablet 2021-07 00:00: 00 05-07 00:00 :00 No [id number] 81mg Take 1 tablet by mouth in the morning. [facility] azaTHIOprin e 100 mg tablet 2021-07 00:00: 00 05-07 00:00 :00 No [id number] 100mg Take 1 tablet by mouth in the morning. [facility] gadobenate dimeglumine (MULTIHANCE -15 mL) injection 19.78 mL 2021-07 03:15: 00 05-07 03:15 :00 No [id number] .2mL/kg 19.78 mL (0.2 mL/kg ?98.9 kg), Intravenou s, ONCE, 1 dose, On [place] 05/06/22 at 2215, Routine [facility] predniSONE 5 mg tablet 2021-07 00:00: 00 08-12 00:00 :00 No [id number] Take 4 tablets by mouth daily for 7 days, THEN 3.5 tablets daily for 7 days, THEN 3 tablets daily for 7 days, THEN 2 tablets daily for 300 days. [facility] lacosamide 50 mg tablet 2021-07 00:00: 00 06-03 00:00 :00 No [id number] 50mg Take 1 tablet by mouth in the morning and 1 tablet in the evening. [facility] Lacosamide 10 mg/mL oral solution 2021-07 00:00: 00 05-07 00:00 :00 No [id number] 50mg Take 5 mL by mouth in the morning and 5 mL in the evening. [facility] aspirin chewable tablet 81 mg 2021-07 19:45: 00 Yes 81mg 81 mg, Oral, DAILY, First dose on [place] 05/06/22 at 1445, Until Discontinu ed, Routine [facility] azaTHIOprin e (IMURAN) tablet 100 mg 2021-07 14:00: 00 Yes 100mg 100 mg, Oral, DAILY, First dose (after last modificati on) on [place] 05/06/22 at 0900, Until Discontinu ed, Routine [facility] pantoprazol e (PROTONIX) EC tablet 40 mg 2021-07 14:00: 00 Yes 40mg 40 mg, Oral, DAILY, First dose on [place] 05/06/22 at 0900, Until Discontinu ed, Routine [facility] lisinopriL (PRINIVIL,Z ESTRIL) tablet 40 mg 2021-07 14:00: 00 Yes 40mg 40 mg, Oral, DAILY, First dose on Tue05/06/22 at 0900, [facility] 325 mg 2021-07 14:00: 00 Yes 325mg 325 mg, Oral, Q OTHERDAY, First dose on Tue05/06/22 at 0900, Until Discontinu ed, Routine [facility] amLODIPine (NORVASC) tablet 10 mg 2021-07 14:00: 00 Yes 10mg 10 mg, Oral, DAILY, First dose on Tue05/06/22 at 0900, Until Discontinu ed, Routine [facility] acetaminoph en (TYLENOL) tablet 500 mg 2021-07 04:47: 18 Yes 500mg 500 mg, Oral, Q6HPRN, Starting on Tue05/05/22 at 2347, Until Discontinu ed, Routine, Pain (scale 1-3), Temp > 38.5 C, Pain (scale 4-6) [facility] atorvastati n (LIPITOR) tablet 20 mg 2021-07 02:00: 00 Yes 20mg 20 mg, Oral, QHS, First dose on Tue05/05/22 at 2100, Until Discontinu ed, Routine [facility] risperiDONE (RISPERDAL) tablet 1 mg 2021-07 01:00: 00 Yes 1mg 1 mg, Oral, BID, First dose on Tue05/05/22 at 2000, Until Discontinu ed, Routine [facility] divalproex (DEPAKOTE) EC tablet 1,500 mg 2021-07 01:00: 00 Yes 1500mg 1,500 mg, Oral, Q12H, First dose on Tue05/05/22 at 2000, Until Discontinu ed, Routine [facility] heparin (porcine) injection 5,000 Units 2021-07 01:00: 00 Yes 5000U 5,000 Units, Subcutaneo us, Q12H, First dose on 10/12/22 at 2000, Until Discontinu ed, Routine [facility] Sliding Scale Insulin - Lispro (HumaLOG) + Fsbg Testing 2021-07 22:00: 00 Yes Subcutaneo us, TID MEALS+HS, First dose on Tue05/05/22 at 1700, Until Discontinu ed, Routine [facility] carvediloL (COREG) tablet 25 mg 2021-07 22:00: 00 Yes 25mg 25 mg, Oral, BID MEALS, First dose on Tue05/05/22 at 1700, Until Discontinu ed, Routine [facility] lacosamide (VIMPAT) 50 mg in NaCl 0.9% (NS) 50 mL piggyback 2021-07 21:45: 00 05-08 00:27 :03 No 50mg 50 mg, IV Piggyback, Q12H, First dose on Tue05/05/22 at 1645, Until Discontinu ed, Administer over 30 Minutes, 50 mL
Facu lty member approving Restricted medication : ARMEN COX RA [facility] predniSONE (DELTASONE) tablet 20 mg 2021-07 19:00: 00 Yes 20mg 20 mg, Oral, DAILY, First dose on Tue05/05/22 at 1400, Until Discontinu ed, Routine [facility] glucagon (GLUCAGEN DIAGNOSTIC KIT) injection 1 mg 2021-07 18:48: 01 Yes 1mg 1 mg, Intramuscu lar, PRN, Starting on Tue05/05/22 at 1348, Until Discontinu ed, HENRY, Blood Glucose < or = 70 mg/dL and patient is unable to swallow or has mental changes. [facility] dextrose 50 % in water (D50W) injection 25 mL 2021-07 18:48: 01 Yes 25mL 25 mL, Slow IV Push, PRN, Starting on Tue05/05/22 at 1348, Until Discontinu ed, HENRY, Blood Glucose < or = 70 mg/dL and patient is unable to swallow or has mental status changes. [facility] hydrOXYzine (ATARAX) 10 mg/5 mL solution 10 mg 2021-07 18:47: 35 Yes 10mg 10 mg, Oral, Q6HPRN, Starting on Tue05/05/22 at 1347, Until Discontinu ed, Routine, Anxiety [facility] NaCl 0.9% (NS) IV infusion 1,000 mL 2021-07 18:30: 00 Yes 1000mL at 50 mL/hr, IV Infusion, CONTINUOUS , Starting on Tue05/05/22 at 1330, Until Discontinu ed, Routine
To keep vein open.
[facility] iopamidol (ISOVUE 370-500 mL) injection 100 mL 2021-07 16:00: 00 05-05 16:00 :00 No [id number] 100mL 100 mL, Intravenou s, ONCE, 1 dose, On Tue05/05/22 at 1100, [facility] ([facility]OVUE 370-500 mL) injection 100 mL 2021-07 15:45: 00 05-05 15:45 :00 No [id number] 100mL 100 mL, Intravenou s, ONCE, 1 dose, On Tue05/05/22 at 1045, Routine [facility] NaCl 0.9% (NS) injection 5 mL 2021-07 14:20: 20 Yes 5mL 5 mL, Slow IV Push, PRN - SEE INSTRUCTIO NS, Starting on Tue05/05/22 at 0920, Until Discontinu ed, 10 mL [facility] predniSONE (DELTASONE) tablet 30 mg 04-11 14:00: 00 04-16 13:59 :00 No 30mg 30 mg, Oral, DAILY, 5 doses, First dose on 04/11/22 at 0900, Last dose on [place] 04/15/22 at 0900, Routine [facility] omega-3s-dh a-epa-fish oil-D3 (FISH OIL-VIT D3) 360 mg-1,200 mg -1,000 unit Cap 04-09 23:12: 13 Yes Take by mouth. [facility] [facility] atorvastati n (LIPITOR) 20 mg tablet 04-09 23:12: 13 Yes 20mg Take 20 mg by mouth at bedtime. [facility] POTASSIUM-9 9 ORAL 04-09 23:12: 13 Yes 99mg Take 99 mg by mouth daily. [facility] ibuprofen (ADVIL) 200 mg tablet 04-09 23:12: 13 Yes 200mg Take 200 mg by mouth 2 (two) times daily with meals. [facility] vitamin B-12 100 mcg tablet 04-09 23:12: 13 Yes 2500ug Take 2,500 mcg by mouth daily. [facility] carvedilol (COREG) 25 mg tablet 04-09 16:13: 37 04-09 00:00 :00 No 25mg Take 25 mg by mouth 2 (two) times daily with meals. [facility] lisinopriL 40 mg tablet 04-09 16:13: 37 04-09 00:00 :00 No 40mg Take 40 mg by mouth in the morning. [facility] lisinopriL 40 mg tablet 04-09 00:00: 00 08-12 00:00 :00 No [id number] 40mg Take 1 tablet by mouth in the morning. [facility] carvediloL (COREG) 25 mg tablet 04-09 00:00: 00 08-12 00:00 :00 No [id number] 25mg Take 1 tablet by mouth in the morning and 1 tablet in the evening. Take with meals. [facility] amLODIPine 10 mg tablet 04-09 00:00: 00 08-12 00:00 :00 No [id number] 10mg Take 1 tablet by mouth in the morning. [facility] risperiDONE 1 mg tablet 04-09 00:00: 00 07-09 05:59 :00 No [id number] 1mg Take 1 tablet by mouth in the morning and 1 tablet in the evening. Do all this for 90 days. [facility] divalproex 500 mg EC tablet 04-09 00:00: 00 07-09 05:59 :00 No [id number] 1500mg Take 3 tablets by mouth every 12 (twelve) hours for 90 days. [facility] predniSONE 5 mg tablet 16 00:00: 00 05-07 00:00 :00 No [id number] Take 6 tablets by mouth daily for 7 days, THEN 4 tablets daily for 7 days, THEN 2 tablets daily for 7 days, THEN 1 tablet daily for 100 days. [facility] predniSONE 5 mg tablet 04-08 00:00: 00 04-09 00:00 :00 No [id number] Take 6 tablets by mouth daily for 5 days, THEN 4 tablets daily for 5 days, THEN 2 tablets daily for 5 days, THEN 1 tablet daily for 100 days. [facility] predniSONE (DELTASONE) tablet 40 mg 04-06 14:00: 00 04-11 13:59 :00 No 40mg 40 mg, Oral, DAILY, 5 doses, First dose on Tue04/06/22 at 0900, Last dose on Tue04/10/22 at 0900, Routine [facility] NaCl 0.9% (NS) injection 10 mL 04-06 11:19: 41 Yes 10mL 10 mL, Slow IV Push, PRN, Starting on Tue04/06/22 at 0619, Until Discontinu ed, Routine, line maintenanc e [facility] lidocaine 1% (PF) (XYLOCAINE) injection 5 mL 04-06 11:19: 41 Yes 5mL 5 mL, Subcutaneo us, PRN, Starting on Tue04/06/22 at 0619, Until Discontinu ed, Routine, Local anesthesia [facility] predniSONE (DELTASONE) tablet 40 mg 04-05 14:00: 00 04-05 13:22 :00 No 40mg 40 mg, Oral, DAILY, 1 dose, First dose (after last modificati on) on Tue04/05/22 at 0900, Routine [facility] divalproex (DEPAKOTE) EC tablet 1,500 mg 04-04 16:30: 00 Yes 1500mg 1,500 mg, Oral, Q12H, First dose on 04/04/22 at 1130, Until Discontinu ed, Routine [facility] risperiDONE (RISPERDAL) tablet 1 mg 04-04 04:00: 00 Yes 1mg 1 mg, Oral, BID, First dose (after last modificati on) on 04/03/22 at 2300, Until Discontinu ed, Routine [facility] melatonin (MELATIN) tablet 3 mg 04-04 02:00: 00 Yes [id number] 3mg 3 mg, Oral, QHS, First dose on [facility] 04/03/22 at 2100, Until Discontinu ed, Routine [facility] pantoprazol e (PROTONIX) EC tablet 40 mg 04-01 14:00: 00 Yes 40mg 40 mg, Oral, DAILY, First dose on [place] 04/01/22 at 0900, Until Discontinu ed, Routine [facility] lisinopriL (PRINIVIL,Z ESTRIL) tablet 40 mg 04-01 14:00: 00 Yes 40mg 40 mg, Oral, DAILY, First dose on [place] 04/01/22 at 0900, Until Discontinu ed [facility] predniSONE (DELTASONE) tablet 40 mg 04-01 14:00: 00 04-05 11:56 :20 No 40mg 40 mg, Oral, DAILY, First dose (after last modificati on) on [place] 04/01/22 at 0900, Until Discontinu ed, Routine [facility] acetaminoph en ADULT (OFIRMEV) injection 1,000 mg 04-01 07:00: 00 04-01 06:43 :00 No 1000mg 1,000 mg, IV Infusion, at 400 mL/hr Administer over 15 Minutes, ONCE NOW, 1 dose, On [place] 04/01/22 at 0200, Routine
Indicatio n: Non-periop erative Patient
Approved by: Per Policy (NPO Status) [facility] hydralAZINE (APRESOLINE ) injection 5 mg 04-01 06:12: 29 Yes 5mg 5 mg, Slow IV Push, Q4HPRN, Starting on Tue04/01/22 at 0112, Until Discontinu ed, Routine, DBP=>100; SBP=>160 [facility] valproate (DEPACON) 1,500 mg in D5W piggyback 04-01 05:00: 00 04-04 16:15 :56 No 1500mg 1,500 mg, IV Piggyback, Q12HA1, First dose on Tue04/01/22 at 0000, Until Discontinu ed, Administer over 60 Minutes, 100 mL [facility] atorvastati n (LIPITOR) tablet 20 mg 04-01 02:00: 00 Yes 20mg 20 mg, Oral, QHS, First dose on Tue03/31/22 at 2100, Until Discontinu ed, [facility]VASC[facility] 10 mg 04-01 02:00: 00 Yes 10mg 10 mg, Oral, QHS, First dose on Tue03/31/22 at 2100, Until Discontinu ed, [facility] (porcine[facility] injection 5,000 Units 04-01 01:00: 00 Yes 5000U 5,000 Units, Subcutaneo us, Q12H, First dose on Tue03/31/22 at 2000, Until Discontinu ed, Routine [facility] risperiDONE (RisperDAL M-TAB) disintegrat ing tablet 1 mg 04-01 01:00: 00 04-04 03:55 :54 No 1mg 1 mg, Oral, BID, First dose on Tue03/31/22 at 2000, Until Discontinu ed, Routine [facility] diphenhydrA MINE (BENADRYL) injection 25 mg 03-31 23:15: 00 04-01 07:16 :00 No 25mg 25 mg, Slow IV Push, ONCE, 1 dose, On Tue03/31/22 at 1815, [facility] acetamin[facility] (TYLENOL) tablet 325 mg 03-31 22:35: 02 Yes 325mg 325 mg, Oral, Q6HPRN, Starting on Tue03/31/22 at 1735, Until Discontinu ed, Routine, Pain (scale 1-3) [facility] carvediloL (COREG) tablet 25 mg 03-31 22:00: 00 Yes 25mg 25 mg, Oral, BID MEALS, First dose on Tue03/31/22 at 1700, Until Discontinu ed, Routine [facility] azaTHIOprin e (IMURAN) tablet 50 mg 03-31 17:15: 00 04-05 16:03 :26 No 50mg 50 mg, Oral, DAILY, First dose (after last modificati on) on Tue03/31/22 at 1215, Until Discontinu ed, Routine [facility] fosphenytoi n (CEREBYX) 998 mg PE in NaCl 0.9% (NS) piggyback 03-31 17:00: 00 03-31 18:04 :00 No 10mg{ph enytoin 'equiva lent}/k g 998 mg PE (10 mg PE/kg ?99.8 kg), IV Piggyback, ONCE, 1 dose, On Tue03/31/22 at 1200, Administer over 30 Minutes, 100 mL [facility] divalproex ER (DEPAKOTE ER) 24 hr tablet 1,500 mg 03-31 16:45: 00 04-01 03:40 :07 No 1500mg 1,500 mg, Oral, BID, First dose on Tue03/31/22 at 1145, Until Discontinu ed, [facility] NaCl 0.9% (NS) IV infusion 1,000 mL 03-31 16:30: 00 Yes 1000mL at 50 mL/hr, IV Infusion, CONTINUOUS , Starting on Tue03/31/22 at 1130, Until Discontinu ed, Routine [facility] iopamidol (ISOVUE 370-500 mL) injection 130 mL 03-31 16:30: 00 03-31 15:25 :00 No [id number] 130mL 130 mL, Intravenou s, ONCE, 1 dose, On Tue03/31/22 at 1130, Routine [facility] acetaminoph en (TYLENOL) tablet 650 mg 03-31 16:20: 10 Yes 650mg 650 mg, Oral, Q6HPRN, Starting on Tue03/31/22 at 1120, Until Discontinu ed, Routine, Pain (scale 4-6) [facility] docusate (COLACE) capsule 100 mg 03-31 16:20: 10 Yes 100mg 100 mg, Oral, QDAILYPRN, Starting on Tue03/31/22 at 1120, Until Discontinu ed, Routine, Constipati on [facility] hydrOXYzine (ATARAX) 10 mg/5 mL solution 10 mg 03-31 16:19: 24 Yes 10mg 10 mg, Oral, Q6HPRN, Starting on Tue03/31/22 at 1119, Until Discontinu ed, Routine, Anxiety [facility] NEISHA ASPIRIN ORAL 03-31 11:23: 20 03-31 00:00 :00 No 81mg Take 81 mg by mouth daily. [facility] Sennosides (EX-LAX MAXIMUM STRENGTH) 25 mg Tab 03-31 11:23: 20 03-31 00:00 :00 No Take by mouth. [facility] OMEPRAZOLE/ SODIUM BICARBONATE (ZEGERID OTC ORAL) 03-11 12:21: 33 03-11 00:00 :00 No Take by mouth. [facility] pantoprazol e 40 mg EC tablet 03-11 00:00: 00 08-12 00:00 :00 No [id number] 40mg Take 1 tablet by mouth in the morning. [facility] predniSONE 20 mg tablet 03-11 00:00: 00 04-07 00:00 :00 No [id number] 20mg Take 1 tablet by mouth in the morning for 90 days. [facility] amoxicillin -clavulanat e (AUGMENTIN) 875-125 mg per tablet 03-05 00:00: 00 03-31 00:00 :00 No [id number] 1{tbl} Take 1 tablet by mouth in the morning and 1 tablet in the evening. [facility] azaTHIOprin e 50 mg tablet 02-28 00:00: 00 03-11 00:00 :00 No [id number] 50mg Take 1 tablet by mouth in the morning. [facility] lisinopriL 40 mg tablet 02-21 08:35: 01 Yes 40mg Take 40 mg by mouth in the morning. [facility] ferrous sulfate 325 mg (65 mg iron) tablet 02-20 00:00: 00 08-12 00:00 :00 No [id number] 325mg Take 1 tablet by mouth every other day. [facility] carvedilol (COREG) 25 mg tablet 02-19 20:35: 38 Yes 25mg Take 25 mg by mouth 2 (two) times daily with meals. [facility] omega-3s-dh a-epa-fish oil-D3 (FISH OIL-VIT D3) 360 mg-1,200 mg -1,000 unit Cap 02-19 20:35: 38 Yes Take by mouth. [facility] MULTIVITS-M INERALS/FA/ LYCOPENE (ONE-A-DAY MEN'S MULTIVITAMI N ORAL) 02-19 20:35: 38 Yes 81mg Take by mouth. [facility] atorvastati n (LIPITOR) 20 mg tablet 02-19 20:35: 38 Yes 20mg Take 20 mg by mouth at bedtime. [facility] Sennosides (EX-LAX MAXIMUM STRENGTH) 25 mg Tab 02-19 20:35: 38 Yes Take by mouth. [facility] ibuprofen (ADVIL) 200 mg tablet 02-19 20:35: 38 Yes 200mg Take 200 mg by mouth 2 (two) times daily with meals. [facility] vitamin B-12 100 mcg tablet 02-19 20:35: 38 Yes 2500ug Take 2,500 mcg by mouth daily. [facility] hydrOXYzine 10 mg/5 mL solution 02-19 00:00: 00 08-12 00:00 :00 No [id number] 10mg Take 5 mL by mouth every 6 (six) hours as needed for Anxiety. [facility] divalproex ER 500 mg 24 hr tablet 02-19 00:00: 00 04-09 00:00 :00 No [id number] 1000mg Take 2 tablets by mouth in the morning and 2 tablets in the evening. [facility] risperiDONE 1 mg disintegrat ing tablet 02-19 00:00: 00 04-09 00:00 :00 No [id number] 1mg Take 1 tablet by mouth in the morning and 1 tablet in the evening. [facility] amLODIPine 10 mg tablet 02-19 00:00: 00 04-09 00:00 :00 No [id number] 10mg Take 1 tablet by mouth at bedtime for 90 days. [facility] predniSONE 5 mg tablet 02-19 00:00: 03-11 00:00 :00 No [id number] Take 8 tablets by mouth daily for 3 days, THEN 6 tablets daily for 3 days, THEN 4 tablets daily for 3 days, THEN 3 tablets daily for 3 days, THEN 1.5 tablets daily for 100 days. [facility] Topiramate 25 MG Topiramate 25 MG 04-17 00:00: 00 No 1{table t} QD Topiramate 25 MG Cipro 500 MG Cipro 500 MG 04-17 00:00: 00 04-27 00:00 :00 No 1{table t} BID Cipro 500 MG butalbital- acetaminoph en-caff 50-325-40 mg tablet 04-11 00:00: 00 03-31 00:00 :00 No [id number] 1{tbl} Take 1 tablet by mouth every 6 (six) hours as needed for Pain (scale 7-10). [facility] ProAir HFA 108 (90 Base) MCG/ACT ProAir HFA 108 (90 Base) MCG/ACT 2019-0 1-03 00:00: 00 No 2{puffs _as_nee ded} TID ProAir HFA 108 (90 Base) MCG/ACT ProAir HFA 108 (90 Base) MCG/ACT ProAir HFA 108 (90 Base) MCG/ACT 07-27 00:00: 00 No 2{puffs _as_nee ded} TID ProAir HFA 108 (90 Base) MCG/ACT metFORMIN 500 mg tablet 04-19 00:00: 00 08-12 00:00 :00 No [id number] 500mg Take 1 tablet by mouth 2 (two) times daily with meals. [facility] BusPIRone HCl BusPIRone HCl Yes Kika Valdez TAKE ONE TABLET BY MOUTH TWICE A DAY [facility] Metformin HCl 850 MG Metformin HCl 850 [...] Systolic blood pressure 2023-12-02 14:56:00 159 mm[Hg] [facility] Diastolic blood pressure 2023-12-02 14:56:00 93 mm[Hg] [facility] Heart rate 2023-12-02 14:56:00 71 /min [facility] Body temperature 2023-12-02 14:56:00 36.56 [facility] Respiratory rate 2023-12-02 14:56:00 19 /min [facility] Oxygen saturation in Arterial blood by Pulse oximetry 2023-12-02 14:56:00 96 /min [facility] Body height 2023-12-02 12:23:[address] [facility] Body weight 2023-12-02 12:23:[address] [facility] BMI 2023-12-02 12:23:00 36.35 kg/m2 [facility] Systolic blood pressure 2023-11-25 13:52:00 155 mm[Hg] [facility] Diastolic blood pressure 2023-11-25 13:52:00 93 mm[Hg] [facility] Heart rate 2023-11-25 13:52:00 69 /min [facility] Body temperature 2023-11-25 13:51:00 36.56 [facility] Respiratory rate 2023-11-25 13:51:00 16 /min [facility] Body height 2023-11-25 13:51:[address] [facility] Body weight 2023-11-25 13:51:[address] [facility] BMI 2023-11-25 13:51:00 36.39 kg/m2 [facility] Oxygen saturation in Arterial blood by Pulse oximetry 2023-11-25 13:51:00 98 /min [facility] Body weight 2023-08-16 15:05:[address] [facility] BMI 2023-08-16 15:05:00 35.34 kg/m2 [facility] Systolic blood pressure 2023-07-26 20:54:00 146 mm[Hg] [facility] Diastolic blood pressure 2023-07-26 20:54:00 94 mm[Hg] [facility] Heart rate 2023-07-26 20:54:00 73 /min [facility] 2023-07-26 20:53:00 36.61 [facility] Respiratory rate 2023-07-26 20:53:00 20 /min [facility] Body height 2023-07-26 20:53:[address] [facility] Body weight 2023-07-26 20:53:[address] [facility] BMI 2023-07-26 20:53:00 35.44 kg/m2 [facility] Oxygen saturation in Arterial blood by Pulse oximetry 2023-07-26 20:53:00 97 /min [facility] Body weight 2023-06-14 16:00:[address] [facility] BMI 2023-06-14 16:00:00 34.69 kg/m2 [facility] Systolic blood pressure 2023-06-03 17:21:00 149 mm[Hg] [facility] Diastolic blood pressure 2023-06-03 17:21:00 72 mm[Hg] [facility] Heart rate 2023-06-03 17:21:00 67 /min Unive [facility] Body temperature 2023-06-03 17:21:00 36.67 [facility] Respiratory rate 2023-06-03 17:21:00 18 /min [facility] Oxygen saturation in Arterial blood by Pulse oximetry 2023-06-03 17:21:00 96 /min [facility] Body height 2023-06-03 14:12:[address] [facility] Body weight 2023-06-03 14:12:[address] [facility] BMI 2023-06-03 14:12:00 34.72 kg/m2 [facility] Systolic blood pressure 2023-05-27 19:43:00 168 mm[Hg] [facility] Diastolic blood pressure 2023-05-27 19:43:00 102 mm[Hg] [facility] Heart rate 2023-05-27 19:42:00 81 /min [facility] Body temperature 2023-05-27 19:42:00 37.28 [facility] Respiratory rate 2023-05-27 19:42:00 20 /min [facility] Body height 2023-05-27 19:42:[address] [facility] Body weight 2023-05-27 19:42:[address] [facility] BMI 2023-05-27 19:42:00 35.18 kg/m2 [facility] Oxygen saturation in Arterial blood by Pulse oximetry 2023-05-27 19:42:00 97 /min [facility] Systolic blood pressure 2023-03-21 19:00:00 145 mm[Hg] [facility] Diastolic blood pressure 2023-03-21 19:00:00 77 mm[Hg] [facility] Heart rate 2023-03-21 19:00:00 71 /min [facility] Body temperature 2023-03-21 19:00:00 38.39 [facility] Respiratory rate 2023-03-21 19:00:00 20 /min [facility] Oxygen saturation in Arterial blood by Pulse oximetry 2023-03-21 13:00:00 94 /min [facility] Body height 2023-03-21 06:00:[address] [facility] Body weight 2023-03-20 22:13:[address] [facility] BMI 2023-03-20 22:13:00 32.73 kg/m2 [facility] Systolic blood pressure 2023-02-16 16:15:00 114 mm[Hg] [facility] Diastolic blood pressure 2023-02-16 16:15:00 60 mm[Hg] [facility] Heart rate 2023-02-16 16:15:00 80 /min [facility] Body temperature 2023-02-16 16:15:00 36.5 [facility] Respiratory rate 2023-02-16 16:15:00 17 /min [facility] Oxygen saturation in Arterial blood by Pulse oximetry 2023-02-16 16:15:00 94 /min [facility] Body weight 2023-02-14 18:00:[address] [facility] BMI 2023-02-14 18:00:00 31.37 kg/m2 [facility] Body height 2023-02-14 04:21:[address] [facility] Systolic blood pressure 2023-01-18 18:25:00 144 mm[Hg] [facility] Diastolic blood pressure 2023-01-18 18:25:00 85 mm[Hg] [facility] Heart rate 2023-01-18 18:25:00 90 /min [facility] Body temperature 2023-01-18 18:25:00 35.83 [facility] Body height 2023-01-18 18:25:[address] [facility] Body weight 2023-01-18 18:25:[address] [facility] BMI 2023-01-18 18:25:00 37.94 kg/m2 [facility] Oxygen saturation in Arterial blood by Pulse oximetry 2023-01-18 18:25:00 96 /min [facility] Body weight 2022-12-14 15:26:[address] [facility] BMI 2022-12-14 15:26:00 32.50 kg/m2 [facility] Systolic blood pressure 2022-12-01 20:22:00 139 mm[Hg] [facility] Diastolic blood pressure 2022-12-01 20:22:00 80 mm[Hg] [facility] Heart rate 2022-12-01 20:22:00 66 /min [facility] Res[facility] 2022-12-01 20:22:00 18 /min [facility] Oxygen saturation in Arterial blood by Pulse oximetry 2022-12-01 20:22:00 98 /min [facility] Body temperature 2022-12-01 13:57:00 36.33 [facility] Body height 2022-12-01 13:57:[address] [facility] Body weight 2022-12-01 13:57:[address] [facility] BMI 2022-12-01 13:57:00 32.50 kg/m2 [facility] Systolic blood pressure 2022-10-26 12:36:00 143 mm[Hg] [facility] Diastolic blood pressure 2022-10-26 12:36:00 88 mm[Hg] [facility] Heart rate 2022-10-26 12:36:00 59 /min [facility] Oxygen saturation in Arterial blood by Pulse oximetry 2022-10-26 12:36:00 100 /min [facility] Body temperature 2022-10-26 12:34:00 36.72 [facility] Respiratory rate 2022-10-26 12:34:00 16 /min [facility] Body height 2022-10-25 13:48:[address] [facility] Body weight 2022-10-25 13:48:00 118.842 kg [facility] BMI 2022-10-25 13:48:00 31.89 kg/m2 [facility] Systolic blood pressure 2022-06-10 16:10:00 137 mm[Hg] [facility] Diastolic blood pressure 2022-06-10 16:10:00 89 mm[Hg] [facility] Heart rate 2022-06-10 16:09:00 84 /min [facility] Body temperature 2022-06-10 16:09:00 36.06 [facility] Respiratory rate 2022-06-10 16:09:00 19 /min [facility] Body height 2022-06-10 16:09:[address] [facility] Body weight 2022-06-10 16:09:[address] [facility] BMI 2022-06-10 16:09:00 29.02 kg/m2 [facility] Oxygen saturation in Arterial blood by Pulse oximetry 2022-06-10 16:09:00 100 /min [facility] Systolic blood pressure 2022-06-03 18:24:00 129 mm[Hg] [facility] Diastolic blood pressure 2022-06-03 18:24:00 73 mm[Hg] [facility] Heart rate 2022-06-03 18:24:00 68 [facility] 2022-06-03 18:24:00 20 /min [facility] Oxygen saturation in Arterial blood by Pulse oximetry 2022-06-03 18:24:00 99 /min [facility] Body temperature 2022-06-03 14:34:00 36.44 [facility] Body height 2022-06-03 14:34:[address] [facility] Body weight 2022-06-03 14:34:[address] [facility] BMI 2022-06-03 14:34:00 29.50 kg/m2 [facility] Systolic blood pressure 2022-05-20 21:37:00 141 mm[Hg] [facility] Diastolic blood pressure 2022-05-20 21:37:00 93 mm[Hg] [facility] Heart rate 2022-05-20 21:37:00 53 /min [facility] Respiratory rate 2022-05-20 21:37:00 16 /min [facility] Oxygen saturation in Arterial blood by Pulse oximetry 2022-05-20 21:37:00 99 /min [facility] Body temperature 2022-05-20 14:12:00 36.28 [facility] Body height 2022-05-20 14:12:[address] [facility] Body weight 2022-05-20 14:12:[address] [facility] BMI 2022-05-20 14:12:00 27.14 kg/m2 [facility] Systolic blood pressure 2022-05-08 18:04:00 135 mm[Hg] [facility] Diastolic blood pressure 2022-05-08 18:04:00 92 mm[Hg] [facility] Heart rate 2022-05-08 18:04:00 68 /min [facility] Body temperature 2022-05-08 18:04:00 36.72 [facility] Respiratory rate 2022-05-08 18:04:00 19 /min [facility] Oxygen saturation in Arterial blood by Pulse oximetry 2022-05-08 18:04:00 100 /min [facility] Body height 2022-05-05 21:15:[address] [facility] Body weight 2022-05-05 14:17:[address] [facility] BMI 2022-05-05 14:17:00 26.54 kg/m2 [facility] Systolic blood pressure 2022-04-10 01:03:00 152 mm[Hg] [facility] Diastolic blood pressure 2022-04-10 01:03:00 102 mm[Hg] [facility] Heart rate 2022-04-10 01:03:00 74 /min [facility] Body temperature 2022-04-10 01:03:00 36.56 [facility] Oxygen saturation in Arterial blood by Pulse oximetry 2022-04-09 21:44:00 98 /min [facility] Respiratory rate 2022-04-09 16:46:00 20 /min [facility] Body height 2022-04-01 03:47:[address] [facility] Body weight 2022-04-01 03:47:[address] [facility] BMI 2022-04-01 03:47:00 26.78 kg/m2 [facility] Body height 2022-03-23 15:45:[address] [facility] Body weight 2022-03-23 15:45:[address] [facility] BMI 2022-03-23 15:45:00 28.24 kg/m2 [facility] Systolic blood pressure 2022-03-11 15:06:00 149 mm[Hg] [facility] Diastolic blood pressure 2022-03-11 15:06:00 90 mm[Hg] [facility] Heart rate 2022-03-11 15:06:00 71 /min [facility] Body weight 2022-03-11 15:06:[address] [facility] BMI 2022-03-11 15:06:00 28.24 kg/m2 [facility] height 2020-08-07 16:40:00 76 [in_i] Commo n [facility] weight 2020-08-07 16:40:00 243.2 [lb_av] Co mmon [facility] temperature 2020-08-07 16:40:00 98.3 [degF] Com mon [facility] bmi 2020-08-07 16:40:00 29.6 kg/m2 Com[facility] n [facility] oximetry 2020-08-07 16:40:00 98 % Commo n [facility] respiratory rate 2020-08-07 16:40:00 16 /min Common [facility] blood pressure systolic 2020-08-07 16:40:00 139 mm[Hg] Common [facility] blood pressure diastolic 2020-08-07 16:40:00 71 mm[Hg] Common [facility] respiratory rate 2020-05-08 09:00:00 16 /min Common [facility] blood pressure systolic 2020-05-08 09:00:00 128 mm[Hg] [facility] blood pressure diastolic 2020-05-08 09:00:00 72 mm[Hg] Common [facility] height 2020-05-08 09:00:00 76 [in_i] Commo n [facility] weight 2020-05-08 09:00:00 258.8 [lb_av] Co on [facility] temperature 2020-05-08 09:00:00 98.1 [degF] Com mon [facility] bmi 2020-05-08 09:00:00 31.5 kg/m2 Commo n [facility] oximetry 2020-05-08 09:00:00 98 % Commo n [facility] height 2020-04-17 08:20:00 76 [in_i] Commo n [facility] weight 2020-04-17 08:20:00 261.6 [lb_av] Co on [facility] temperature 2020-04-17 08:20:00 97.8 [degF] Com [facility] bmi 2020-04-17 08:20:00 31.84 kg/m2 Comm on [facility] oximetry 2020-04-17 08:20:00 98 % [facility] respiratory rate 2020-04-17 08:20:00 16 /min [facility] blood pressure systolic 2020-04-17 08:20:00 126 mm[Hg] Common [facility] blood pressure diastolic 2020-04-17 08:20:00 80 mm[Hg] [facility] Procedures Procedure Date / Time Performed Performing Clinician Source MR BRAIN W WO CONTRAST 2023-12-08 13:50:52 Elin Vieyra [facility] AUTOMATED VISUAL FIELD, EXTENDED - OU - BOTH EYES 2023-08-16 16:32:06 Marlon Bush [facility] REFERRAL- REQUEST/RESPONSE 2023-07-26 06:01:00 Doctor Unassigned, [place] [facility] OCT, OPTIC NERVE - OU - BOTH EYES 2023-06-14 16:49:49 Marlon Bush [facility] INSURANCE CORRESPONDENCE 2023-06-14 06:01:00 Doctor Unassigned, [place] [facility] COMP. METABOLIC PANEL (68429) 2023-06-03 14:15:00 [facility] CBC WITH DIFF 2023-06-03 14:15:00 [facility] CD19 SUBSET ASSAY 2023-06-03 14:15:00 [facility] MINI-MENTAL STATE EXAM 2023-05-27 05:01:00 Doctor Unassigned, [place] [facility] XR CHEST 1 VW 2023-03-21 08:00:00 [facility] LACTATE DEHYDROGENASE 2023-03-21 06:10:00 [facility] D-DIMER 2023-03-21 06:10:00 [facility] LACTIC ACID WHOLE BLOOD 2023-03-21 02:52:00 [facility] 2023-03-21 01:57:00 Joan Waite Mehdi [facility] ELECTROENCEPHALOGRAM 2023-03-21 00:00:00 Trish Mondragon [facility] CT HEAD WO CONTRAST 2023-03-20 23:59:18 Joan Waite [facility] COVID-19 (ID NOW RAPID TESTING) 2023-03-20 22:42:00 Joan Waite [facility] LAB ONLY COVID INTERPRETATION 2023-03-20 22:42:00 Joan Waite [facility] BLOOD CULTURE SCREEN 2023-03-20 22:34:00 Joan Waite [facility] MAGNESIUM 2023-03-20 22:34:00 Joan Waite [facility] FERRITIN SERUM 2023-03-20 22:34:00 [facility] C-REACTIVE PROTEIN 2023-03-20 22:34:00 [facility] COMP. METABOLIC PANEL ([id number]) 2023-03-20 22:34:00 [facility] VAL[facility], FREE 2023-03-20 22:34:00 [facility] CBC WITH DIFF 2023-03-20 22:34:00 Joan Waite [facility] PROCALCITONIN 2023-03-20 22:34:00 [facility] CONSENT/REFUSAL FOR DIAGNOSI S AND TREATMENT 2023-03-20 22:00:37 Doctor Unassigned, [place] [facility] EXTERNAL PROVIDER RECORDS 2023-03-03 05:01:00 Doctor Unassigned, [place] [facility] US DUPLEX VENOUS ARM RIGHT - BY VASCULAR LAB 2023-02-15 20:33:00 Parminder [facility] PHOSPHORUS 2023-02-15 10:20:00 Javi [facility] MAGNESIUM 2023-02-15 10:20:00 Javi [facility] HEPATIC FUNCTION PANEL ([id number]) (ALB,T.PRO,BILI T,BU/BC,ALT,AST,ALK PHOS) 2023-02-15 10:20:00 Parminder [facility] BASIC METABOLIC PANEL (NA, K , CL, CO2, GLUCOSE, BUN, CREATININE, CA) 2023-02-15 10:20:00 Javi [facility] VALPROIC ACID, FREE 2023-02-15 10:20:00 Parminder [facility] CBC WITH DIFF 2023-02-15 10:20:00 Javi [facility] SYPHILIS IGG/IGM 2023-02-15 10:20:00 Luis Alberto Rosario [facility] POCT GLUCOSE (AUTOMATED) 2023-02-14 21:51:00 Sigifredo [place] [facility] POCT GLUCOSE (AUTOMATED) 2023-02-14 17:31:00 Sigifredo [place] [facility] LOWER EXTREMITY ARTERIAL DUPLEX BILATERAL - BY VASCULAR LAB 2023-02-14 17:26:00 Sigifredo [place] [facility] DUPLEX VENOUS LEGS BILATERAL - BY VASCULAR LAB 2023-02-14 15:59:00 [facility] CT HEAD WO CONTRAST 2023-02-14 15:30:00 Javi [facility] CT STROKE ANGIOGRAM HEAD 2023-02-14 15:30:00 Javi [facility] CT STROKE ANGIOGRAM NECK 2023-02-14 15:30:00 Javi [facility] THYROID STIMULATING HORMONE 2023-02-14 06:49:00 [facility] BASIC METABOLIC PANEL (NA, K , CL, CO2, GLUCOSE, BUN, CREATININE, CA) 2023-02-14 06:49:00 [facility] CBC WITH DIFF 2023-02-14 06:49:00 [facility] MRSA / MSSA SCREEN BY JEREMY DE LEON 2023-02-14 04:26:00 [facility] OCT, OPTIC NERVE - OU - BOTH EYES 2022-12-14 16:27:57 Marlon Bush [facility] AUTOMATED VISUAL FIELD, EXTENDED - OU - BOTH EYES 2022-12-14 16:27:26 Marlon Bush [facility] MEDICATION CORRESPONDENCE 2022-12-08 05:01:00 Doctor Unassigned, [place] [facility] EXTERNAL PROVIDER RECORDS 2022-11-02 05:01:00 Doctor Unassigned, [place] [facility] AUTHORIZATION FOR RELEASE OF PHI 2022-10-30 05:01:00 Doctor Unassigned, [place] [facility] POCT GLUCOSE (AUTOMATED) 2022-10-26 13:13:00 David Tavera [facility] POCT GLUCOSE (AUTOMATED) 2022-10-26 01:19:00 David Tavera [facility] POCT GLUCOSE (AUTOMATED) 2022-10-25 22:09:00 David Tavera [facility] AMMONIA, PLASMA 2022-10-25 17:56:00 Desi Roberts [facility] POCT GLUCOSE (AUTOMATED) 2022-10-25 17:29:00 David Tavera [facility] CT HEAD WO CONTRAST 2022-10-25 16:34:36 Desi Robertsshmi [facility] XR CHEST 1 VW 2022-10-25 14:56:00 Desi Robertsshmi [facility] HEPATIC FUNCTION PANEL ([id number]) (ALB,T.PRO,BILI T,BU/BC,ALT,AST,ALK PHOS) 2022-10-25 14:42:00 Desi Robertsshmi [facility] BASIC METABOLIC PANEL (NA, K , CL, CO2, GLUCOSE, BUN, CREATININE, CA) 2022-10-25 14:42:00 Desi Robertsshmi [facility] VALPROIC ACID, FREE 2022-10-25 14:42:00 Desi Robertsshmi [facility] ETHANOL 2022-10-25 14:42:00 Desi Robertsshmi [facility] URINE DRUG (IMMUNOASSAY) - COMPREHENSIVE DRUG SCREEN 2022-10-25 14:42:00 Desi Robertsshmi [facility] CBC WITH DIFF 2022-10-25 14:42:00 Desi Robertsshmi [facility] URINALYSIS 2022-10-25 14:42:00 Desi Robertsshmi [facility] EXTRA TUBE URINE CULTURE 2022-10-25 14:42:00 Yancy Singh [facility] PROCALCITONIN 2022-10-25 14:42:00 Desi Robertsshmi [facility] ELECTROENCEPHALOGRAM 2022-10-25 00:00:[address]ssh[address] [facility] CONSENT FOR MAGGIE E TREATMENT FORM 2022-09-01 19:16:42 Doctor Unassigned, [place] [facility] PHYSICIAN ORDERS 2022-05-20 05:01:00 Doctor Unassigned, [place] [facility] POCT GLUCOSE (AUTOMATED) 2022-05-08 18:06:00 [facility] DUPLEX VENOUS LEGS BILATERAL - BY VASCULAR LAB 2022-05-08 13:35:40 Gauri Smith [facility] POCT GLUCOSE (AUTOMATED) 2022-05-08 13:20:00 [facility] POCT GLUCOSE (AUTOMATED) 2022-05-08 01:07:00 [facility] POCT GLUCOSE (AUTOMATED) 2022-05-07 22:54:00 Armen Cox [facility] BASIC METABOLIC PANEL (NA, K , CL, CO2, GLUCOSE, BUN, CREATININE, CA) 2022-05-07 18:52:00 [facility] CBC WITH DIFF 2022-05-07 18:52:00 Claudia [facility] POCT GLUCOSE (AUTOMATED) 2022-05-07 13:51:00 Armen Cox [facility] MR BRAIN W WO CONTRAST 2022-05-07 03:11:01 Claudia [facility] POCT GLUCOSE (AUTOMATED) 2022-05-07 01:02:00 Armen Cox [facility] POCT GLUCOSE (AUTOMATED) 2022-05-06 21:51:00 Armen Cox [facility] CBC WITH DIFF 2022-05-06 20:54:00 Ramonita Rodrigues [facility] XR CHEST 1 VW 2022-05-06 20:41:00 Ramonita Rodrigues [facility] POCT GLUCOSE (AUTOMATED) 2022-05-06 17:02:00 Armen Cox [facility] POCT GLUCOSE (AUTOMATED) 2022-05-06 13:47:00 Armen Cox [facility] URINALYSIS 2022-05-06 10:51:00 Desi Roberts [facility] URINE CULTURE 2022-05-06 10:51:00 Desi Robertsshmi [facility] BLOOD CULTURE SCREEN 2022-05-06 05:12:00 Desi Robertsshmi [facility] GALV ONLY - INFLUENZA A B RS V PCR 2022-05-06 05:12:00 Desi Robertsshmi [facility] POCT GLUCOSE (AUTOMATED) 2022-05-06 01:42:00 [facility] POCT GLUCOSE (AUTOMATED) 2022-05-05 22:38:00 [facility] HB ECG ROUTINE & RHYTHM STRIP 2022-05-05 21:56:24 Claudia [facility] HEPATIC FUNCTION PANEL ([id number]) (ALB,T.PRO,BILI T,BU/BC,ALT,AST,ALK PHOS) 2022-05-05 19:27:00 Claud[facility] LIPID PANEL ([id number])(TOTAL CHOLESTEROL, TRIGLYCERIDES, HDL) 2022-05-05 19:27:00 [facility] VALPROIC ACID, FREE 2022-05-05 19:27:00 [facility] GLYCOSYLATED HEMOGLOBIN (A1C) 2022-05-05 19:27:00 [facility] EKG-12 LEAD 2022-05-05 16:11:[address] [facility] URINALYSIS 2022-05-05 15:17:[address] [facility] CT STROKE PERFUSION W CONTRAST 2022-05-05 15:08:[facility] WO CONTRAST 2022-05-05 14:45:[address] [facility] CT STROKE ANGIOGRAM HEAD 2022-05-05 14:45:[address] [facility] CT STROKE ANGIOGRAM NECK 2022-05-05 14:45:[address] [facility] TROPONIN I 2022-05-05 14:32:00 Ashly Collier [facility] BASIC METABOLIC PANEL (NA, K , CL, CO2, GLUCOSE, BUN, CREATININE, CA) 2022-05-05 14:32:[address] [facility] CBC WITHOUT DIFF 2022-05-05 14:32:[address] [facility] PROTHROMBIN TIME / INR 2022-05-05 14:32:[address] [facility] ACTIVATED PARTIAL THRMPLAS BOUBACAR 2022-05-05 14:32:[address] [facility] EXTRA TUBE LAV 2022-05-05 14:32:[address] [facility] CONSENT/REFUSAL FOR DIAGNOSI S AND TREATMENT 2022-05-05 14:18:31 Doctor Unassigned, [place] [facility] ELECTROENCEPHALOGRAM 2022-05-05 00:00:00 Christy Taylor [facility] MAGNESIUM 2022-04-06 08:15:00 Eljoseem [facility] BASIC METABOLIC PANEL (NA, K , CL, CO2, GLUCOSE, BUN, CREATININE, CA) 2022-04-06 08:15:00 Elnaeem, [facility] CBC WITH DIFF 2022-04-06 08:15:00 Elnaeem [facility] MAGNESIUM 2022-04-03 09:15:00 Elnaeem, [facility] BASIC METABOLIC PANEL (NA, K , CL, CO2, GLUCOSE, BUN, CREATININE, CA) 2022-04-03 09:15:00 Elnaeem, [facility] CBC WITH DIFF 2022-04-03 09:15:00 Elnaeem, [facility] BLOOD CULTURE SCREEN 2022-04-02 23:26:00 Elnaeem, [facility] XR CHEST 1 VW 2022-04-02 20:36:00 Elnaeem [facility] URINALYSIS 2022-04-02 20:25:00 Elnaeem, [facility] BLOOD CULTURE SCREEN 2022-04-02 20:12:00 Elnaeem, [facility] XR CHEST 2 VW 2022-04-01 15:06:00 Christy Taylor [facility] CBC WITH DIFF 2022-04-01 11:05:00 Joyce Aguayo [facility] MISCELLANEOUS SEND OUT TEST 2022-04-01 11:05:00 Myke Laurenrique [facility] ANTICARDIOLIPIN ANTIBODIES 2022-04-01 10:39:00 SharmaJesse Keith [facility] ANTI-B2 GLYCOPROTEIN I AB 2022-04-01 10:39:00 Myke Laurenrique [facility] MR BRAIN WO CONTRAST 2022-03-31 23:47:22 David Tavera [facility] COVID-19 (ID NOW RAPID TESTING) 2022-03-31 22:10:00 Keturah Patricia [facility] LAB ONLY COVID INTERPRETATION 2022-03-31 22:10:00 Keturah Patricia [facility] IMMUNOGLOBULIN G A M PANEL 2022-03-31 18:06:00 Myke Laurenrique [facility] BASIC METABOLIC PANEL (NA, K , CL, CO2, GLUCOSE, BUN, CREATININE, CA) 2022-03-31 18:06:00 Joyce Aguayo [facility] CBC WITH DIFF 2022-03-31 18:06:00 Dixon Taylorhilary [facility] ANTI-NUCLEAR ANTIBODY SCREEN 2022-03-31 18:06:00 Dixon Taylorhilary [facility] ANTI-SSA(RO) 2022-03-31 18:06:00 Keith Lauren [facility] ANTI-NUCLEAR ANTIBODY-PATHOLOGIST INTERPRETATION 2022-03-31 18:06:00 Dixon Taylorhilary [facility] XR CHEST 1 VW 2022-03-31 16:15:00 Keturah Patricia [facility] URINE DRUG (IMMUNOASSAY) - COMPREHENSIVE DRUG SCREEN 2022-03-31 15:52:00 Keturah Patricia [facility] URINALYSIS 2022-03-31 15:52:00 Akin Wood [facility] AMMONIA, PLASMA 2022-03-31 15:41:00 Keturah Patricia [facility] C-REACTIVE PROTEIN 2022-03-31 15:41:00 Keturah Patricia [facility] FREE T4 2022-03-31 15:41:00 David Tavera [facility] VALPROIC ACID, TOTAL 2022-03-31 15:41:00 Christy Taylor [facility] VALPROIC ACID, FREE 2022-03-31 15:41:00 Christy Taylor [facility] CBC WITHOUT DIFF 2022-03-31 15:41:00 Akin Wood [facility] SEDIMENTATION RATE 2022-03-31 15:41:00 Keturah Patricia [facility] PROTHROMBIN TIME / INR 2022-03-31 15:41:00 Akin Wood [facility] ACTIVATED PARTIAL THRMPLAS BOUBACAR 2022-03-31 15:41:00 Akin Wood [facility] HB ECG ROUTINE & RHYTHM STRIP 2022-03-31 15:35:57 Akin Wood [facility] CT STROKE ANGIOGRAM HEAD 2022-03-31 15:32:41 Akin Wood [facility] CT STROKE ANGIOGRAM NECK 2022-03-31 15:32:41 Akni Wood [facility] CT STROKE PERFUSION W CONTRAST 2022-03-31 15:32:41 Christy Taylor [facility] PHOSPHORUS 2022-03-31 15:13:00 David Tavera [facility] CREATINE KINASE 2022-03-31 15:13:00 David Tavera [facility] MAGNESIUM 2022-03-31 15:13:00 David Tavera [facility] TROPONIN I 2022-03-31 15:13:00 Akin Wood [facility] TRIIODOTHYRONINE 2022-03-31 15:13:00 David Tavera [facility] THYROID STIMULATING HORMONE 2022-03-31 15:13:00 Christy Taylor [facility] BASIC METABOLIC PANEL (NA, K , CL, CO2, GLUCOSE, BUN, CREATININE, CA) 2022-03-31 15:13:00 Akin Wood [facility] HEPATITIS B SURFACE ANTIGEN 2022-03-31 15:13:00 Keith Lauren [facility] HEPATITIS B CORE ANTIBODY IGM 2022-03-31 15:13:00 Keith Lauren [facility] CT STROKE HEAD WO CONTRAST 2022-03-31 15:08:30 Akin Wood [facility] CONSENT/REFUSAL FOR DIAGNOSI S AND TREATMENT 2022-03-31 14:47:03 Doctor Unassigned, [place] [facility] ELECTROENCEPHALOGRAM 2022-03-31 00:00:00 Christy Taylor [facility] OPHTHALMOLOGY DIAGNOSTIC TEST 2022-03-23 05:01:00 Doctor Unassigned, [place] [facility] OU VISUAL FIELD EXAM EXTENDE D (30-2), BOTH EYES 2022-03-23 00:00:00 Srinivas Miguel [facility] Encounters Start Date/Time End Date/Time Encounter Type Admission Type Attending [facility] Care Facility Care Department Encounter ID Source 2021-08-19 13:54:35 Outpatient MatyKeny [facility] [id number] [facility] 2021-08-19 13:53:31 Outpatient MatyJosiean [facility] [id number] [facility] 2021-08-19 12:20:16 Outpatient ZavalaiKka deen [facility] [id number] [facility] 2021-08-19 11:55:20 Outpatient Courtney Kika [facility] [id number] [facility] 2021-08-19 10:59:22 Outpatient CourtneyKika [facility] [id number] [facility] 2024-06-01 09:00:00 2024-06-01 09:00:00 Outpatient ELIN HASTINGS [facility] [id number] [facility] 2024-01-24 09:00:00 2024-01-24 09:00:00 Outpatient JUDE REN [facility] [id number] [facility] 2023-12-08 07:23:53 2023-12-08 23:59:00 Outpatient ELIN HASTINGS [facility] [id number] [facility] 2023-12-08 07:23:53 2023-12-08 23:59:00 Hospital Encounter Azalia [facility] 1.2840.114 350.1.13.10 4.2.7.2.686 [id number] [facility] 2023-12-02 08:00:00 2023-12-02 13:30:00 Nurse Visit 2, Arina-Andre Infusion [facility] 1.2840.114 350.1.13.10 4.2.7.2.686 [id number] [facility] 2023-12-02 08:00:00 2023-12-02 08:00:00 Outpatient R AZALIA [facility] [id number] [facility] 2023-11-25 09:30:00 2023-11-25 09:45:00 Director Of Government Sales Visit Pcp-Lab Az[facility] 1.2840.114 350.1.13.10 4.2.7.2.686 [id number] [facility] 2023-11-25 09:00:00 2023-11-25 09:24:14 Outpatient R AZALIA [facility] [id number] [facility] 2023-11-25 09:00:00 2023-11-25 09:24:14 Office Visit Az[facility] 1.2840.114 350.1.13.10 4.2.7.2.686 [id number] [facility] 2023-11-04 09:00:00 2023-11-04 09:00:00 Outpatient R [facility] [id number] [facility] 2023-09-06 00:00:00 2023-09-06 00:00:00 Yani Patel, Kike Pal [facility] 1.840.114 350.1.13.10 4.2.7.2.686 [id number] [facility] 2023-08-16 08:45:00 2023-08-16 10:38:18 Outpatient R MARLON BUSH [facility] [id number] [facility] 2023-08-16 08:45:00 2023-08-16 10:38:18 Office Visit Marlon Bush R [facility] [employer] [facility] 1.840.114 350.1.13.10 4.2.7.2.686 [id number] [facility] 2023-07-26 15:30:00 2023-07-26 15:37:08 Outpatient R JUDE GONZALEZ [facility] [id number] [facility] 2023-07-26 15:30:00 2023-07-26 15:37:08 Office Visit Jude Gonzalez [facility] 1.840.114 350.1.13.10 4.2.7.2.686 [id number] [facility] 2023-07-26 00:00:00 2023-07-26 00:00:00 Orders Only Doctor Unassigned, [place] [facility] 1.840.114 350.1.13.10 4.2.7.2.686 [id number] [facility] 2023-06-17 00:00:00 2023-06-17 00:00:00 Telephone Elin Vieyra [facility] 1.840.114 350.1.13.10 4.2.7.2.686 [id number] [facility] 2023-06-17 00:00:00 2023-06-17 00:00:00 Angela Spears [facility] 1..114 350.1.13.10 4.2.7.2.686 [id number] [facility] 2023-06-14 09:30:00 2023-06-14 10:48:42 Outpatient R MARLON BUSH [facility] [id number] [facility] 2023-06-14 09:30:00 2023-06-14 10:48:42 Office Visit [facility]lon [facility]..114 350.1.13.10 4.2.7.2.686 [id number] [facility] 2023-06-14 00:00:00 2023-06-14 00:00:00 Orders Only Doctor Unassigned, [place] [facility] 1..114 350.1.13.10 4.2.7.2.686 [id number] [facility] 2023-06-03 08:45:00 2023-06-03 13:54:05 Outpatient R ELIN VIEYRA [facility] [id number] [facility] 2023-06-03 08:45:00 2023-06-03 13:54:05 Nurse Visit 4, Arina-Andre Infusion Chair [facility] 1..114 350.1.13.10 4.2.7.2.686 [id number] [facility] 2023-06-02 00:00:00 2023-06-02 00:00:00 Telephone Elin Vieyra [facility] 1..114 350.1.13.10 4.2.7.2.686 [id number] [facility] 2023-05-27 16:00:00 2023-05-27 16:15:00 Director Of Government Sales Visit Pcp-Lab [facility] 1.2.840.114 350.1.13.10 4.2.7.2.686 [id number] [facility] 2023-05-27 15:00:00 2023-05-27 15:45:45 Outpatient R ELIN VIEYRA [facility] [id number] [facility] 2023-05-27 15:00:00 2023-05-27 15:45:45 Office Visit Az[facility] 1.2.840.114 350.1.13.10 4.2.7.2.686 [id number] [facility] 2023-05-27 00:00:00 2023-05-27 00:00:00 Orders Only Doctor Unassigned, [place] [facility] 1.2.840.114 350.1.13.10 4.2.7.2.686 [id number] [facility] 2023-03-22 00:00:00 2023-03-22 00:00:00 Transition of Care Jewell Mckeon [facility] 1.2.840.114 350.1.13.10 4.2.7.2.686 [id number] [facility] 2023-03-20 17:18:00 2023-03-21 17:40:00 Outpatient X JEFFERY BLANTONSAY [facility] [id number] [facility] 2023-03-20 17:18:00 2023-03-21 17:40:00 Hospital Joan Christie, Maury Obando, Gerald De Leon [facility] 1.2840.114 350.1.13.10 4.2.7.2.686 [id number] [facility] 2023-03-03 00:00:00 2023-03-03 00:00:00 Orders Only Doctor Unassigned, [place] [facility] 1.2840.114 350.1.13.10 4.2.7.2.686 [id number] [facility] 2023-02-17 00:00:00 2023-02-17 00:00:00 Transition of Care Leslie Palm [facility] 1.2840.114 350.1.13.10 4.2.7.2.686 [id number] [facility] 2023-02-17 00:00:00 2023-02-17 00:00:00 Telephone Angela German [facility] 1.2.114 350.1.13.10 4.2.7.2.686 [id number] [facility] 2023-02-13 22:56:00 2023-02-16 11:59:00 Inpatient U [facility] YASEMIN [id number] [facility] 2023-02-13 22:56:00 2023-02-16 11:59:00 Hospital Encounter [facility]redo [place] [facility] ([facility]) 1..114 350.1.13.10 4.2.7.2.686 [id number] [facility] 2023-01-18 15:15:00 2023-01-18 15:30:00 Director Of Government Sales Visit Pcp-Lab Angela German [facility] 1..114 350.1.13.10 4.2.7.2.686 [id number] [facility] 2023-01-18 13:30:00 2023-01-18 15:02:55 Outpatient R ANGELA GERMAN [facility] [id number] [facility] 2023-01-18 13:30:00 2023-01-18 15:02:55 Office Visit Angela German [facility] 1.0.114 350.1.13.10 4.2.7.2.686 [id number] [facility] 2022-12-14 10:00:00 2022-12-14 11:36:44 Outpatient R MARLON BUSH [facility] [id number] [facility] 2022-12-14 10:00:00 2022-12-14 11:36:44 Office Visit [facility]lon [facility] 1.84.114 350.1.13.10 4.2.7.2.686 [id number] [facility] 2022-12-08 00:00:00 2022-12-08 00:00:00 Orders Only Doctor Unassigned, [place] [facility] 1.20.114 350.1.13.10 4.2.7.2.686 [id number] [facility] 2022-12-01 09:15:00 2022-12-01 15:27:23 Outpatient R ELIN VIEYRA [facility] [id number] [facility] 2022-12-01 09:15:00 2022-12-01 15:27:23 Nurse Visit 3, Arina- Infusion Chair Azalia [facility] 1..114 350.1.13.10 4.2.7.2.686 [id number] [facility] 2022-11-02 00:00:00 2022-11-02 00:00:00 Orders Only Doctor Unassigned, [place] [facility] 1.2840.114 350.1.13.10 4.2.7.2.686 [id number] [facility] 2022-10-30 00:00:00 2022-10-30 00:00:00 Orders Only Doctor Unassigned, [place] [facility] 1.2840.114 350.1.13.10 4.2.7.2.686 [id number] [facility] 2022-10-27 00:00:00 2022-10-27 00:00:00 Letter (Out) Clinic, [facility] Neurology Resident [facility] 1.2840.114 350.1.13.10 4.2.7.2.686 [id number] [facility] 2022-10-25 08:33:00 2022-10-26 15:15:00 Outpatient U YANCY MERINO JORGE [facility] [id number] [facility] 2022-10-25 08:33:00 2022-10-26 15:15:00 Hospital Encounter David Tavera Jorge [facility] 1.2840.114 350.1.13.10 4.2.7.2.686 [id number] [facility] 2022-10-26 00:00:00 2022-10-26 00:00:00 Patient Secure Msg Doctor Unassigned, [place] [facility] 1.20.114 350.1.13.10 4.2.7.2.686 [id number] [facility] 2022-09-01 00:00:00 2022-09-01 00:00:00 Orders Only Doctor Unassigned, [place] [facility] 1.2840.114 350.1.13.10 4.2.7.2.686 [id number] [facility] 2022-08-17 00:00:00 2022-08-17 00:00:00 Marie Sepulveda [facility] 1.2840.114 350.1.13.10 4.2.7.2.686 [id number] [facility] 2022-08-16 00:00:00 2022-08-16 00:00:00 Telephone Ashly Villanueva [facility] 1.2.840.114 350.1.13.10 4.2.7.2.686 [id number] [facility] 2022-08-12 11:00:00 2022-08-12 11:00:00 Outpatient ASHLY DANIELS [facility] [id number] [facility] 2022-08-12 00:00:00 2022-08-12 00:00:00 [facility] 1.2.840.114 350.1.13.10 4.2.7.2.686 [id number] [facility] 2022-08-06 00:00:00 2022-08-06 00:00:00 Telephone Charisma [facility] 1.2.840.114 350.1.13.10 4.2.7.2.686 [id number] [facility] 2022-07-22 00:00:00 2022-07-22 00:00:00 Telephone Demetrio Rinaldi [facility] 1.2.840.114 350.1.13.10 4.2.7.2.686 [id number] [facility] 2022-07-06 10:00:00 2022-07-06 10:00:00 Outpatient MARLON NIELSON [facility] [id number] [facility] 2022-07-01 08:30:00 2022-07-01 08:30:00 Outpatient ELIN HASTINGS [facility] [id number] [facility] 2022-06-10 10:00:00 2022-06-10 12:36:43 Outpatient R KAY ASHLY [facility] [id number] [facility] 2022-06-10 10:00:00 2022-06-10 12:36:43 Office Visit Clinic, Neurology Continuity ElieserAshly Nieves Vamsi [facility] 1.2840.114 350.1.13.10 4.2.7.2.686 [id number] [facility] 2022-06-10 10:00:00 2022-06-10 10:00:00 Outpatient R [facility] [id number] [facility] 2022-06-03 10:00:00 2022-06-03 15:30:00 Nurse Visit 3, [facility] 1.2840.114 350.1.13.10 4.2.7.2.686 [id number] [facility] 2022-06-03 10:00:00 2022-06-03 10:00:00 Outpatient R MADYDJose Elias [facility] [id number] [facility] 2022-05-20 10:00:00 2022-05-20 15:30:00 Nurse Visit 4, Arina-Vl Infusion Chair Azalia [facility] 1.2840.114 350.1.13.10 4.2.7.2.686 [id number] [facility] 2022-05-20 10:00:00 2022-05-20 10:00:00 [facility] [id number] [facility] 2022-05-20 00:00:00 2022-05-20 00:00:00 Telephone Azalia [facility] 1.2840.114 350.1.13.10 4.2.7.2.686 [id number] [facility] 2022-05-20 00:00:00 2022-05-20 00:00:00 Orders Only Doctor Unassigned, [place] [facility] 1.2.840.114 350.1.13.10 4.2.7.2.686 [id number] [facility] 2022-05-05 09:19:00 2022-05-08 15:58:00 Outpatient X ARMEN COX [facility] [id number] [facility] 2022-05-05 09:19:00 2022-05-08 15:58:00 Emergency Ashly Collier CoxArmen aguirre [facility] 1.2.840.114 350.1.13.10 4.2.7.2.686 [id number] [facility] 2022-05-05 00:00:00 2022-05-05 00:00:00 Telephone Elin Vieyra [facility] 1.2840.114 350.1.13.10 4.2.7.2.686 [id number] [facility] 2022-04-19 00:00:00 2022-04-19 00:00:00 Patient Secure Msg Keith Upton [facility] 1.2.840.114 350.1.13.10 4.2.7.2.686 [id number] [facility] 2022-04-12 00:00:00 2022-04-12 00:00:00 Transition of Care Leslie Palm 1.2.840.114 350.1.13.10 4.2.7.2.686 [id number] [facility] 2022-03-31 09:52:00 2022-04-09 23:12:00 Inpatient X ELIN VIEYRA [facility] [id number] [facility] 2022-03-31 09:52:00 2022-04-09 23:12:00 Hospital Encounter PatriciaKeturah, David Vieyra, [facility] 1.840.114 350.1.13.10 4.2.7.2.686 [id number] [facility] 2022-03-23 10:15:00 2022-03-23 13:08:32 Outpatient R MARLON BUSH [facility] [id number] [facility] 2022-03-23 10:15:00 2022-03-23 13:08:32 Office Visit Marlon Bush [facility]. 1.84.114 350.1.13.10 4.2.7.2.686 [id number] [facility] 2022-03-23 00:00:00 2022-03-23 00:00:00 Orders Only Doctor Unassigned, [place] [facility] 1.840.114 350.1.13.10 4.2.7.2.686 [id number] [facility] 2022-03-23 00:00:00 2022-03-23 00:00:[address] [facility] 1..114 350.1.13.10 4.2.7.2.686 [id number] [facility] 2022-03-11 10:00:00 2022-03-11 11:00:00 Office Visit Clinic, Neurology Continuity [facility] 1..114 350.1.13.10 4.2.7.2.686 [id number] [facility] 2022-03-11 10:00:00 2022-03-11 10:00:00 Outpatient R ASHLY VILLANUEVA [facility] [id number] [facility] 2022-03-11 10:00:00 2022-03-11 10:00:00 Outpatient Vamsi VILLANUEVA ASHLY [facility] [id number] [facility] 2022-03-11 10:00:00 2022-03-11 10:00:00 Outpatient Vamsi YESSIDGCHAGOASHLY [facility] [id number] [facility] 2022-03-10 13:15:00 2022-03-10 13:30:00 Office Visit Brian Adelso [facility] 1..840.114 350.1.13.10 4.2.7.2.686 [id number] [facility] 2022-03-10 13:15:00 2022-03-10 13:15:00 Outpatient Vamsi OTRRES ADELSO [facility] [id number] [facility] 2022-03-10 13:15:00 2022-03-10 13:15:00 [facility] [id number] [facility] 2022-03-10 13:15:00 2022-03-10 13:15:00 Outpatient [facility] [id number] [facility] 2022-03-05 00:00:00 2022-03-05 00:00:00 Outpatient [facility] [id number] [facility] 2022-03-05 00:00:00 2022-03-05 00:00:00 Orders Only Doctor Unassigned, [place] [facility] 1.840.114 350.1.13.10 4.2.7.2.686 [id number] [facility] 2022-03-05 00:00:00 2022-03-05 00:00:00 Patient Secure Msg Doctor Unassigned, [place] [facility] 1..840.114 350.1.13.10 4.2.7.2.686 [id number] [facility] 2022-03-02 00:00:2022-03-02 00:00:00 Telephone [facility] 1.114 350.1.13.10 4.2.7.2.686 [id number] [facility] 2022-02-26 13:10:00 2022-02-26 13:26:22 Out[facility] [id number] [facility] 2022-02-26 13:10:00 2022-02-26 13:26:22 Office Visit Clinic, Neurosurger y Resident [facility] 1.114 350..13.10 4.2.7.2.686 [id number] [facility] 2022-02-26 13:10:00 2022-02-26 13:26:22 Outpatient [facility] [id number] [facility] 2022-02-26 13:10:00 2022-02-26 13:26:22 Outpatient Vamsi TORRES [facility] [id number] [facility] 2022-02-22 00:00:00 2022-02-22 00:00:00 Transition of Care Alena Sarmiento [facility] 1..114 350..13.10 4.2.7.2.686 [id number] [facility] 2022-02-02 10:41:00 2022-02-19 20:35:00 Inpatient X DAVID TAVERA [facility] [id number] [facility] 2022-02-02 10:41:00 2022-02-19 20:35:00 Hospital Encounter Clement Bell, Aggie Young, Clarence Torres, David Polk [facility] 1.114 350.1.13.10 4.2.7.2.686 [id number] [facility] 2022-02-12 09:00:00 2022-02-12 11:46:00 Surgery Adelso Torres [facility] 1.2.840.114 350.1.13.10 4.2.7.2.686 [id number] [facility] 2022-02-02 00:00:00 2022-02-02 00:00:00 Travel 1.2.840.1 07223.1.1 3.104.2.7 .3.291215 .8 1.2.840.114 350.1.13.10 4.2.7.3.698 [id number] [facility] 2020-08-08 00:00:00 2020-08-08 00:00:00 (TEL) STLMLC STLMLC [id number] [facility] 2020-08-07 00:00:00 2020-08-07 00:00:00 OFFICE VISIT EST PT LEVEL 3 STLMLC STLMLC [id number] [facility] 2020-05-08 00:00:00 2020-05-08 00:00:00 OFFICE VISIT ESTAB PT LEVEL 2 STLMLC STLMLC [id number] [facility] 2020-04-17 00:00:00 2020-04-17 00:00:00 OFFICE VISIT EST PT LEVEL 3 STLMLC STLMLC [id number] [facility] 2020-04-11 18:06:00 2020-04-11 21:28:00 Emergency Myrna Mathews [facility] 1.2.840.114 350.1.13.10 4.2.7.2.686 [id number] [facility] 2020-04-11 17:49:00 2020-04-11 17:49:00 Emergency X MYRNA MATHEWS [facility] [id number] [facility] 2020-02-27 17:45:00 2020-02-27 17:45:[address] [facility] [id number] [facility] 2020-02-05 16:20:00 2020-02-05 16:20:00 [facility] [facility] [id number] [facility] 2020-01-30 13:41:00 2020-01-30 13:41:00 [facility] [id number] [facility] 2019-09-21 11:40:00 2019-09-21 11:40:00 [facility] [id number] [facility] 2019-08-03 11:40:00 2019-08-03 11:40:00 [facility] [id number] [facility] 2019-05-23 10:59:00 2019-05-23 10:59:00 [facility] [id number] [facility] 2019-01-22 16:20:00 2019-01-22 16:20:00 [facility] [id number] [facility] 2018-07-27 11:15:00 2018-07-27 11:15:[address] [facility] [id number] [facility] 2018-07-05 15:30:00 2018-07-05 15:30:00 [facility] [id number] [facility] 2017-12-21 16:00:00 2017-12-21 16:00:00 [facility] [id number] [facility] 2017-10-27 16:00:00 2017-10-27 16:00:[address] [facility] [facility] [id number] [facility] 2017-10-18 16:32:00 2017-10-18 16:32:00 [facility] [id number] 2017-10-11 15:30:00 2017-10-11 15:30:00 [facility] [id number] [facility] 2017-10-11 08:34:00 2017-10-11 08:34:00 Outpatient [facility] [id number] [facility] Results Test Description Test Time Test Comments Results Resul t Comments Source MR BRAIN W WO CONTRAST 2023-11-23 6 14:24:39 EXAM: MR BRAIN W WO CONTRAST HISTORY: 48 years-old Male; Provided indication: vasculitis Mike Chan III is a 48 year old male with history of seizure and possiblecerebral vasculitis.. TECHNIQUE: Multiplanar multi sequential MRI of the brain was performed withand without IV contrast. COMPARISON: Correlation with brain MRI dated 05/06/[address] head03/20/2023. FINDINGS: Post right frontal craniotomy with underlying encephalomalacia andsusceptibility artifact from mineralization/hemosi agusto deposit are noted. Prominent ventricular system suggestive of mild to moderate degree of brainvolume loss. No midline shift or pathological extra-axial fluid collection is present.The basal cisterns are unremarkable. Periventricular and deep white matter T2/FLAIR hyperintensities arepresent, which has decreased from MR brain dated 05/06/2022. Remote leftoccipital infarction with encephalomalacia is present. No restricted diffusion is present to suggest acute/subacute infarction. Mild right mastoid effusion seen. No abnormal fluid signal is present inthe mastoid air cells or paranasal air sinuses. [facility] ([id number])2023-06-03 15:46:58* Test Item Value Reference Range Interpretation Comme nts NA (test code = 1636431709) 140 mmol/L 135-145 K (test code = 6855465505) 4.4 mmol/L 3.5-5.0 Slight hemolysis CL (test code = 9838282004) 103 mmol/L 98-108 CO2 TOTAL (test code = 7620019706) 29 mmol/L 23-31 AGAP (test code = 2870941878) 8 2-16 BUN (test code = 5950526108) 15 mg/dL 7-23 Slight hemolysis GLUCOSE (test code = 7663738763) 119 mg/dL 70-110 H CREATININE (test code = 7994359300) 0.71 mg/dL 0.60-1.25 TOTAL BILI (test code = 0782856707) 0.7 mg/dL 0.1-1.1 CALCIUM (test code = 0329321978) 9.2 mg/dL 8.6-10.6 T PROTEIN (test code = 1260311059) 6.9 g/dL 6.3-8.2 ALBUMIN (test code = 5096832094) 4.1 g/dL 3.5-5.0 ALK PHOS (test code = 4363736141) 68 U/L 34-122 Slight hemolysis ALTv (test code = 1742-6) 25 U/L 5-50 AST(SGOT) (test code = 3112811250) 34 U/L 13-40 Slight hemolysis eGFR (test code = 29833-5) 111.8 mL/min/1.73m2 CKD-EPI eGFR (2020). Assuming creatinine has been stable day-to-day for at least three months, the eGFR indicates Category G1 (>= 90 mL/min/1.73 m2) Lab Interpretation (test code = 49393-1) Abnormal [facility]. METABOLIC PANEL (42425)2023-06-03 15:46:58* Test Item Value Reference Range Interpretation Comme nts NA (test code = 4156638634) 140 mmol/L 135-145 K (test code = 9744294904) 4.4 mmol/L 3.5-5.0 Slight hemolysis CL (test code = 7041141223) 103 mmol/L 98-108 CO2 TOTAL (test code = 3971356813) 29 mmol/L 23-31 AGAP (test code = 0213461068) 8 2-16 BUN (test code = 3103305736) 15 mg/dL 7-23 Slight hemolysis GLUCOSE (test code = 7193107136) 119 mg/dL 70-110 H CREATININE (test code = 2935465170) 0.71 mg/dL 0.60-1.25 TOTAL BILI (test code = 0586045021) 0.7 mg/dL 0.1-1.1 CALCIUM (test code = 9890270139) 9.2 mg/dL 8.6-10.6 T PROTEIN (test code = 1429670885) 6.9 g/dL 6.3-8.2 ALBUMIN (test code = 7335719490) 4.1 g/dL 3.5-5.0 ALK PHOS (test code = 1600169990) 68 U/L 34-122 Slight hemolysis ALTv (test code = 1742-6) 25 U/L 5-50 AST(SGOT) (test code = 9183562756) 34 U/L 13-40 Slight hemolysis eGFR (test code = 79744-1) 111.8 mL/min/1.73m2 CKD-EPI eGFR (2020). Assuming creatinine has been stable day-to-day for at least three months, the eGFR indicates Category G1 (>= 90 mL/min/1.73 m2) Lab Interpretation (test code = 57590-5) Abnormal [facility] WITH [id number] 15:33:35* Test Item Value Reference Range Interpretation Comme nts WBC (test code = 6690-2) 5.77 See_Comment [Automated [employer]] The system which generated this result transmitted reference range: 4.20 - 10.70 10*3/?L. The reference range was not used to interpret this result as normal/abnormal. RBC (test code = 789-8) 4.40 See_Comment [Automated [employer]] The system which generated this result transmitted [...] 32.6 g/dL 31.2-35.0 RDW-SD (test code = 99646-1) 47.2 fL 38.5-51.6 RDW-CV (test code = 788-0) 14.7 % 12.1-15.4 PLT (test code = 777-3) 234 See_Comment [Automated messa ge] The system which generated this result transmitted reference range: 150 - 328 10*3/?L. The reference range was not used to interpret this result as normal/abnormal. MPV (test code = 64601-0) 10.7 fL 9.8-13.0 NRBC/100 WBC (test code = 2702065625) 0.0 See_Comment [Automated me ssage] The system which generated this result transmitted reference range: 0.0 - 10.0 /100 WBCs. The reference range was not used to interpret this result as normal/abnormal. NRBC x10^3 (test code = 7102914142) See_Comment [Automated me ssage] The system which generated this result transmitted reference range: 10*3/?L. The reference range was not used to interpret this result as normal/abnormal. GRAN MAT (NEUT) % (test code = 770-8) 61.9 % IMM GRAN % (test code = 0212879425) 0.50 % LYMPH % (test code = 736-9) 23.2 % MONO % (test code = 5905-5) 12.0 % EOS % (test code = 713-8) 1.7 % BASO % (test code = 706-2) 0.7 % GRAN MAT x10^3(ANC) (test code = 0688803255) 3.57 10*3/uL 1.99-6.95 IMM GRAN x10^3 (test code = 9354830127) 0.03 10*3/uL 0.00-0.06 LYMPH x10^3 (test code = 731-0) 1.34 10*3/uL 1.09-3.23 MONO x10^3 (test code = 742-7) 0.69 10*3/uL 0.36-1.02 EOS x10^3 (test code = 711-2) 0.10 10*3/uL 0.06-0.53 BASO x10^3 (test code = 704-7) 0.04 10*3/uL 0.01-0.09 [facility] WITH [id number] 15:33:35* Test Item Value Reference Range Interpretation [...] 32.6 g/dL 31.2-35.0 RDW-SD (test code = 84451-2) 47.2 fL 38.5-51.6 RDW-CV (test code = 788-0) 14.7 % 12.1-15.4 PLT (test code = 777-3) 234 See_Comment [Automated messa ge] The system which generated this result transmitted reference range: 150 - 328 10*3/?L. The reference range was not used to interpret this result as normal/abnormal. MPV (test code = 03171-0) 10.7 fL 9.8-13.0 NRBC/100 WBC (test code = 9449430977) 0.0 See_Comment [Automated me ssage] The system which generated this result transmitted reference range: 0.0 - 10.0 /100 WBCs. The reference range was not used to interpret this result as normal/abnormal. NRBC x10^3 (test code = 1619984692) See_Comment [Automated me ssage] The system which generated this result transmitted reference range: 10*3/?L. The reference range was not used to interpret this result as normal/abnormal. GRAN MAT (NEUT) % (test code = 770-8) 61.9 % IMM GRAN % (test code = 5185445495) 0.50 % LYMPH % (test code = 736-9) 23.2 % MONO % (test code = 5905-5) 12.0 % EOS % (test code = 713-8) 1.7 % BASO % (test code = 706-2) 0.7 % GRAN MAT x10^3(ANC) (test code = 7460571539) 3.57 10*3/uL 1.99-6.95 IMM GRAN x10^3 (test code = 4031817054) 0.03 10*3/uL 0.00-0.06 LYMPH x10^3 (test code = 731-0) 1.34 10*3/uL 1.09-3.23 MONO x10^3 (test code = 742-7) 0.69 10*3/uL 0.36-1.02 EOS x10^3 (test code = 711-2) 0.10 10*3/uL 0.06-0.53 BASO x10^3 (test code = 704-7) 0.04 10*3/uL 0.01-0.09 [facility] [id number] 20:24:36* Test Item Value Reference Range Interpretation Comme nts CRP (test code = 9401213544) 3.2 mg/dL <=0.8 H Lab Interpretation (test cod e = 22209-3) Abnormal [facility] [id number] 06:59:28* Test Item Value Reference Range Interpretation Comme nts FERRITIN (test code = 3276626433) 153.0 ng/mL 18.0-464.0 [place] (test code = STANFORD) Biotin has been reported to cause a negative bias, interpret results relative to patient's use of biotin. Lab Interpretation (test code = 85286-8) [facility]2023-08-28 06:52:56* Test Item Value Reference Range Interpretation Comme nts Procalcitonin (test code = 8318623255) 0.03 ng/mL <=0.07 [place] (test code = [...] lung abscess/empyema. For further information please refer to:[email or web address] Lab Interpretation (test code = 37016-8) Normal [facility] HospitalL[facility] Acid Whole Stoub4306-13-31 03:05:13* Test Item Value Reference Range Interpretation Comme nts LACTIC ACID (test code = 7070136623) 1.18 mmol/L 0.50-2.20 QUES Lab Interpretation (test cod e = 75885-9) Normal [facility]VAL[facility], [id number] 01:18:26* Test Item Value Reference Range Interpretation Comme nts Valproic Acid, Free (test code = 1580663778) 13.4 ug/mL 4.0-15.0 [place] (test code = STANFORD) Toxic Range: ? Greater than 15 ug/mL Test developed and characteristics determined by [facility] Laboratory Services. Lab Interpretation (test code = 96649-8) Normal [facility] HospitalCOMP. METABOLIC PANEL (72387)2023-03-20 23:46:14* Test Item Value Reference Range Interpretation Comme nts NA (test code = 3700039657) 138 mmol/L 135-145 K (test code = 4000418615) 3.9 mmol/L 3.5-5.0 CL (test code = 8380119715) 100 mmol/L 98-108 CO2 TOTAL (test code = 8754927610) 27 mmol/L 23-31 AGAP (test code = 2195812684) 11 2-16 BUN (test code = 1322700065) 13 mg/dL 7-23 GLUCOSE (test code = 5442750437) 82 mg/dL 70-110 CREATININE (test code = 2044263720) 0.90 mg/dL 0.60-1.25 TOTAL BILI (test code = 9512696894) 0.5 mg/dL 0.1-1.1 CALCIUM (test code = 1661732682) 8.9 mg/dL 8.6-10.6 T PROTEIN (test code = 8136784609) 6.6 g/dL 6.3-8.2 ALBUMIN (test code = 5645143760) 4.1 g/dL 3.5-5.0 ALK PHOS (test code = 5067089333) 67 U/L 34-122 ALTv (test code = 1742-6) 42 U/L 5-50 AST(SGOT) (test code = 2070557001) 40 U/L 13-40 eGFR (test code = 9900421269) 89.3 mL/min/1.73m2 STANFORD (test code = STANFORD) [...] or urine or abnormalities in imaging tests). [facility]* Test Item Value Reference Range Interpretation Comme nts MAGNESIUM (test code = 5041545062) 1.8 mg/dL 1.7-2.4 Lab Interpretation (test cod e = 17080-0) Normal [facility] WITH [id number] 23:31:14* Test Item Value Reference Range Interpretation Comme nts WBC (test code = 6690-2) 5.93 See_Comment [Automated messa ge] The system which generated this result transmitted reference range: 4.20 - 10.70 10*3/?L. The reference range was not used to interpret this result as normal/abnormal. RBC (test code = 789-8) 4.44 See_Comment [Automated messa ge] The system which [...] 32.8 g/dL 31.2-35.0 RDW-SD (test code = 92706-7) 47.8 fL 38.5-51.6 RDW-CV (test code = 788-0) 14.9 % 12.1-15.4 PLT (test code = 777-3) 209 See_Comment [Automated messa ge] The system which generated this result transmitted reference range: 150 - 328 10*3/?L. The reference range was not used to interpret this result as normal/abnormal. MPV (test code = 65336-7) 9.9 fL 9.8-13.0 NRBC/100 WBC (test code = 3488090325) 0.0 See_Comment [Automated [employer] ssage] The system which generated this result transmitted reference range: 0.0 - 10.0 /100 WBCs. The reference range was not used to interpret this result as normal/abnormal. NRBC x10^3 (test code = 0398348393) See_Comment [Automated messa ge] The system which generated this result transmitted reference range: 10*3/?L. The reference range was not used to interpret this result as normal/abnormal. GRAN MAT (NEUT) % (test code = 770-8) 60.8 % IMM GRAN % (test code = 4654475477) 0.70 % LYMPH % (test code = 736-9) 18.4 % MONO % (test code = 5905-5) 18.7 % EOS % (test code = 713-8) 0.7 % BASO % (test code = 706-2) 0.7 % GRAN MAT x10^3(ANC) (test code = 9174583579) 3.61 10*3/uL 1.99-6.95 IMM GRAN x10^3 (test code = 5522856556) 0.04 10*3/uL 0.00-0.06 LYMPH x10^3 (test code = 731-0) 1.09 10*3/uL 1.09-3.23 MONO x10^3 (test code = 742-7) 1.11 10*3/uL 0.36-1.02 H EOS x10^3 (test code = 711-2) 0.04 10*3/uL 0.06-0.53 L BASO x10^3 (test code = 704-7) 0.04 10*3/uL 0.01-0.09 Lab Interpretation (test code = 29802-6) Abnormal [facility] GLUCOSE (AUTOMATED)2023-02-14 22:18:58* Test Item Value Reference Range Interpretation Comme nts POCT GLU (test code = 4240105180) 174 mg/dL 70-110 H Lab Interpretation (test cod e = 37843-6) Abnormal [facility] GLUCOSE (AUTOMATED)2023-02-14 17:43:43* Test Item Value Reference Range Interpretation Comme nts POCT GLU (test code = 3296333429) 84 mg/dL 70-110 Lab Interpretation (test cod e = 00781-3) Normal [facility] GLUCOSE (AUTOMATED)2022-10-26 13:16:44* Test Item Value Reference Range Interpretation Comme nts POCT GLU (test code = 8970633973) 145 mg/dL 70-110 H Lab Interpretation (test cod e = 51554-4) Abnormal [facility] GLUCOSE (AUTOMATED)2022-10-26 01:20:18* Test Item Value Reference Range Interpretation Comme nts POCT GLU (test code = 7498468533) 240 mg/dL 70-110 H Lab Interpretation (test cod e = 86222-9) Abnormal [facility] GLUCOSE (AUTOMATED)2022-10-25 22:11:38* Test Item Value Reference Range Interpretation Comme nts POCT GLU (test code = 0911108631) 254 mg/dL 70-110 H Lab Interpretation (test cod e = 00579-1) [facility], [id number] 18:19:20* Test Item Value Reference Range Interpretation Comme nts AMMONIA (test code = 6290855292) 9-33 L Lab Interpretation (test cod e = 66060-8) Abnormal [facility] GLUCOSE (AUTOMATED)2022-10-25 17:32:20* Test Item Value Reference Range Interpretation Comme nts POCT GLU (test code = 9064710235) 212 mg/dL 70-110 H Lab Interpretation (test cod e = 19914-4) Abnormal [facility] GLUCOSE (AUTOMATED)2022-05-08 18:07:15* Test Item Value Reference Range Interpretation Comme nts POCT GLU (test code = 8529468815) 210 mg/dL 70-110 H Lab Interpretation (test cod e = 13248-4) Abnormal [facility] GLUCOSE (AUTOMATED)2022-05-08 13:21:55* Test Item Value Reference Range Interpretation Comme nts POCT GLU (test code = 1761007512) 83 mg/dL 70-110 Lab Interpretation (test cod e = 43688-6) Normal [facility] GLUCOSE (AUTOMATED)2022-05-08 01:16:03* Test Item Value Reference Range Interpretation Comme nts POCT GLU (test code = 1797662805) 133 mg/dL 70-110 H Lab Interpretation (test cod e = 32775-3) Abnormal [facility] GLUCOSE (AUTOMATED)2022-05-07 22:56:43* Test Item Value Reference Range Interpretation Comme nts POCT GLU (test code = 8105757960) 194 mg/dL 70-110 H Lab Interpretation (test cod e = 92230-7) Abnormal [facility] GLUCOSE (AUTOMATED)2022-05-07 13:54:43* Test Item Value Reference Range Interpretation Comme nts POCT GLU (test code = 5959543339) 93 mg/dL 70-110 Lab Interpretation (test cod e = 69636-7) Normal [facility] GLUCOSE (AUTOMATED)2022-05-07 01:10:55* Test Item Value Reference Range Interpretation Comme nts POCT GLU (test code = 1393709367) 148 mg/dL 70-110 H Lab Interpretation (test cod e = 55130-9) [facility]normal [facility] PAN[facility] (78861) (ALB,T.PRO,BILI T,BU/BC,ALT,AST,ALK PHOS)2022-05-07 01:03:23* Test Item Value Reference Range Interpretation Comme nts TOTAL BILI (test code = 3240907443) 0.5 mg/dL 0.1-1.1 BILI UNCON (test code = 6858994497) 0.2 mg/dL 0.1-1.1 BILI CONJ (test code = 6592120187) 0.0 mg/dL 0-0.3 T PROTEIN (test code = 8987436314) 6.3 g/dL 6.3-8.2 ALBUMIN (test code = 0558061128) 3.4 g/dL 3.5-5 L ALK PHOS (test code = 8879551852) 54 U/L 34-122 ALTv (test code = 1742-6) 13 U/L 5-50 AST(SGOT) (test code = 3974146858) 18 U/L 13-40 Lab Interpretation (test cod e = 84215-4) Abnormal [facility] HospitalVALPROIC ACID, [id number] 00:55:25* Test Item Value Reference Range Interpretation Comme nts Valproic Acid, Free (test code = 4503418532) 7.2 ug/mL 4-15 STANFORD (test code = STANFORD) Toxic Range: ? Greater than 15 ug/mL Test developed and characteristics determined by [facility] Laboratory Services. Lab Interpretation (test code = 26570-0) Normal [facility] GLUCOSE (AUTOMATED)2022-05-06 21:54:40* Test Item Value Reference Range Interpretation Comme nts POCT GLU (test code = 9413405921) 149 mg/dL 70-110 H Lab Interpretation (test cod e = 63628-2) Abnormal [facility] GLUCOSE (AUTOMATED)2022-05-06 17:06:34* Test Item Value Reference Range Interpretation Comme nts POCT GLU (test code = 2974225144) 166 mg/dL 70-110 H Lab Interpretation (test cod e = 24322-5) Abnormal [facility] GLUCOSE (AUTOMATED)2022-05-06 13:49:08* Test Item Value Reference Range Interpretation Comme nts POCT GLU (test code = 9123216476) 80 mg/dL 70-110 Lab Interpretation (test cod e = 62594-2) Normal [facility] GLUCOSE (AUTOMATED)2022-05-06 01:44:43* Test Item Value Reference Range Interpretation Comme nts POCT GLU (test code = 4015727458) 158 mg/dL 70-110 H Lab Interpretation (test cod e = 71934-2) Abnormal [facility] GLUCOSE (AUTOMATED)2022-05-05 22:39:13* Test Item Value Reference Range Interpretation Comme nts POCT GLU (test code = 7749191327) 79 mg/dL 70-110 Lab Interpretation (test cod e = 62841-3) Normal [facility] HospitalGLYCOSYLATED HEMOGLOBIN (A1C)2022-05-05 21:54:43* Test Item Value Reference Range Interpretation Comme nts HGB A1C (test code = 4548-4) 6.7 % 4-5.7 H STANFORD (test code = STANFORD) Reference RangesNormal: <5.7%Prediabetes: 5.7 - 6.4%Diabetes: > 6.5% Lab Interpretation (test code = 72476-9) Abnormal [facility] LIPID PANEL (60224)(TOTAL CHOLESTEROL, TRIGLYCERIDES, HDL)2022-05-05 19:53:18* Test Item Value Reference Range Interpretation Comme nts CHOL (test code = 5918566063) 112 mg/dL 120-200 L HDL (test code = 4080687326) 47 mg/dL See_Comment [Automated messa ge] The system which generated this result transmitted reference range: >=40. The reference range was not used to interpret this result as normal/abnormal. HDLC RATIO (test code = 3909253636) See_Comment [Automated [employer]] The system which generated this result transmitted reference range: <=5.0. The reference range was not used to interpret this result as normal/abnormal. TRIG (test code = 4882633275) 123 mg/dL 30-170 LDL CHOL (test code = 93536-2) 40 mg/dL See_Comment [Automated [employer]] The system which generated this result transmitted reference range: <=160. The reference range was not used to interpret this result as normal/abnormal. VLDL (test code = 0237729184) 25 mg/dL 5-60 Lab Interpretation (test code = 73657-9) Abnormal [facility] [place] I - Code Efoovz9429-77-39 15:00:04* Test Item Value Reference Range Interpretation Comments TROPONIN I (test code = 3795404662) 0.002 ng/mL See_Comment [Automated message] The system [...] of biotin. Lab Interpretation (test code = 40080-0) Normal [facility] Met[facility] Panel (NA, K, CL, CO2, Glucose, BUN, Creatinine, CA) - Code Ofxsaf0520-50-76 14:48:26* Test Item Value Reference Range Interpretation Comme nts NA (test code = 3046942300) 141 mmol/L 135-145 K (test code = 8819257020) 3.6 mmol/L 3.5-5 Slight hemolysis CL (test code = 6830279950) 98 mmol/L 98-108 CO2 TOTAL (test code = 4321531544) 32 mmol/L 23-31 H AGAP (test code = 3585164690) 2-16 BUN (test code = 9727375453) 10 mg/dL 7-23 Slight hemolysis GLUCOSE (test code = 1439728263) 136 mg/dL 70-110 H CREATININE (test code = 8708831514) 0.63 mg/dL 0.6-1.25 CALCIUM (test code = 0989634024) 9.1 mg/dL 8.6-10.6 eGFR (test code = 9871002668) mL/min/1.73m2 [place]ORD (test code = STANFORD) Association [...] imaging tests). Lab Interpretation (test code = 23207-9) [facility] BranchProthrombin Time / INR - Code Yzpwhd4866-21-07 14:47:05* Test Item Value Reference Range Interpretation Comme [facility] PROTIME PATIENT (test [...] the indications. Lab Interpretation (test code = 59905-0) Normal [facility] HospitalaPTT - Code Trilqm4822-00-53 14:47:05* Test Item Value Reference Range Interpretation Comme [facility] APTT Patient (test code = 3173-2) See_Comment [Automated messa ge] The system which generated this result transmitted reference range: 26 - 36 Seconds. The reference range was not used to interpret this result as normal/abnormal. Lab Interpretation (test code = 71351-0) Normal [facility] HospitalCB without Diff - Code Wvvzbi5461-91-76 14:39:43* Test Item Value Reference Range Interpretation Comme [facility] WBC (test code [...] result as normal/abnormal. MPV (test code = 18432-9) 9.8 fL 9.8-13 RDW-CV (test code = 788-0) 15.3 % 12.1-15.4 RDW-SD (test code = 92331-6) 46.8 fL 38.5-51.6 NRBC x10^3 (test code = 2753352984) See_Comment [Automated messa ge] The system which generated this result transmitted reference range: 10*3/?L. The reference range was not used to interpret this result as normal/abnormal. NRBC/100 WBC (test code = 0516708620) See_Comment [Automated In[employer] ge] The system which generated this result transmitted reference range: 0.0 - 10.0 /100 WBCs. The reference range was not used to interpret this result as normal/abnormal. IPF % (test code = 1588340072) Lab Interpretation (test code = 89061-1) Abnormal [facility] HospitalANTICARDIOLIPIN VBJRDTZUEV8514-15-17 02:21:10 * Test Item Value Reference Range Interpretation Comments Anticardiolipin Antibody IgG (test code = 4258382693) See_Comment [Automated message] The system which generated this result transmitted reference range: 0.0 - 10.0 GPL. The reference range was not used to interpret this result as normal/abnormal . Anticardiolipin Antibody IgM (test code = 6419323333) See_Comment [Automated message] The system which generated this result transmitted reference range: 0.0 - 10.0 MPL. The reference range was not used to interpret this result as normal/abnormal . Anticardiolipin Antibody IgA (test code = 9438974417) See_Comment [Automated message] The system which generated [...] 4: 2210-4 Lab Interpretation (test code = 95871-3) Normal [facility] METABOLIC PANEL (NA, K, CL, CO2, GLUCOSE, BUN, CREATININE, CA)2022-04-03 14:15:35* Test Item Value Reference Range Interpretation Comme nts NA (test code = 9272066202) 135 mmol/L 135-145 K (test code = 3085138022) 3.2 mmol/L 3.5-5 L CL (test code = 0045591929) 104 mmol/L 98-108 CO2 TOTAL (test code = 1532444357) 23 mmol/L 23-31 AGAP (test code = 5146171085) 2-16 BUN (test code = 1511053430) 17 mg/dL 7-23 GLUCOSE (test code = 8739758452) 101 mg/dL 70-110 CREATININE (test code = 5313282957) 0.79 mg/dL 0.6-1.25 CALCIUM (test code = 5891589288) 8.4 mg/dL 8.6-10.6 L eGFR (test code = 4157666091) mL/min/1.73m2 [place]ORD (test code = STANFORD) Association [...] imaging tests). Lab Interpretation (test code = 03485-5) Abnormal [facility] HospitalMAGNESIUM2022-09-10 14:15:35* Test Item Value Reference Range Interpretation Comme nts MAGNESIUM (test code = 8713686658) 1.9 mg/dL 1.7-2.4 Lab Interpretation (test cod e = 76392-6) Normal [facility] WITH DOMX2612-86-50 09:34:09* Test Item Value Reference Range Interpretation Comme nts WBC (test code = 6690-2) See_Comment [Automated [employer] PPS] The system which generated this result transmitted reference range: 4.20 - 10.70 10*3/?L. The reference range was not used to interpret this result as normal/abnormal. RBC (test code = 789-8) See_Comment L [Automated [employer] PPS] The system which generated this result transmitted [...] 32.9 g/dL 31.2-35 RDW-SD (test code = 46955-1) 45.3 fL 38.5-51.6 RDW-CV (test code = 788-0) 14.9 % 12.1-15.4 PLT (test code = 777-3) See_Comment [Automated messa ge] The system which generated this result transmitted reference range: 150 - 328 10*3/?L. The reference range was not used to interpret this result as normal/abnormal. MPV (test code = 38585-8) 9.9 fL 9.8-13 NRBC/100 WBC (test code = 8664622321) See_Comment [Automated [employer] ssage] The system which generated this result transmitted reference range: 0.0 - 10.0 /100 WBCs. The reference range was not used to interpret this result as normal/abnormal. NRBC x10^3 (test code = 5890168893) See_Comment [Automated messa ge] The system which generated this result transmitted reference range: 10*3/?L. The reference range was not used to interpret this result as normal/abnormal. GRAN MAT (NEUT) % (test code = 770-8) 52.9 % IMM GRAN % (test code = 4293321124) 0.20 % LYMPH % (test code = 736-9) 33.3 % MONO % (test code = 5905-5) 11.7 % EOS % (test code = 713-8) 1.5 % BASO % (test code = 706-2) 0.4 % GRAN MAT x10^3(ANC) (test code = 0607342800) 2.48 10*3/uL 1.99-6.95 IMM GRAN x10^3 (test code = 2080658097) 0-0.06 LYMPH x10^3 (test code = 731-0) 1.56 10*3/uL 1.09-3.23 MONO x10^3 (test code = 742-7) 0.55 10*3/uL 0.36-1.02 EOS x10^3 (test code = 711-2) 0.07 10*3/uL 0.06-0.53 BASO x10^3 (test code = 704-7) 0.01-0.09 Lab Interpretation (test code = 31668-0) Abnormal [facility] HospitalANTI-B2 GLYCOPROTEIN I QG1236-97-22 00:14:46* Test Item Value Reference Range Interpretation Comments Anti-B2 Glycoprotein 1 IgG (test code = 3146259839) See_Comment [Automated message] The system which generated this result transmitted reference range: 0.0 - 20.0 SGU. The reference range was not used to interpret this result as normal/abnormal. Anti-B2 Glycoprotein 1 IgM (test code = 0582496154) See_Comment [Automated message] The system which generated this result transmitted reference range: 0.0 - 20.0 SMU. The reference range was not used to interpret this result as normal/abnormal. Anti-B2 Glycoprotein 1 IgA (test code = 6049257089) See_Comment [Automated message] The system which generated [...] losses and/or thrombocytopenia. TEST PERFORMED AT:[facility] [address] [place] [address] [employer] [facility] [place] [address] Lab Interpretation (test code = 30207-2) Normal [facility] HospitalANTI-NUCLEAR ANTIBODY-PATHOLOGIST LKHZTEFJJQXEDS0965-67-81 19:07:26ANA - Pathologist InterpretationANA HEp-2 IIFA Pathologist [...] purpura, thyroid disease, discoid lupus, or fibromyalgia. (https://pubmed.ncbi.nlm.nih.gov/46812524/, https://pubmed.ncbi.nlm.nih.gov/12969225/) ? ? Therefore, a diagnosis cannot be based exclusively on DUARTE detection and/or pattern and thus should be made via the integration of patient history, physical exam findings, and other diagnostic tests as clinically indicated. Karuna Anderson MD ?04/02/2022 ?2:07 PM04/02/2022 2:07 PM [facility]- Nuclear Anitbody (DUARTE) Lgexlc1821-46-94 19:07:06* Test Item Value Reference Range Interpretation Comme nts DUARTE (test code = 7433013368) Negative Negative STAN[place]ORD (test code = STANFORD) Negative: ?No Anti-Nuclear Antibodies detected by IFA. Positive: ?DUARTE IFA screen performed with a 1:80 dilution in adults and a 1:40 dilution in pediatrics. ?A titer is performed and reported separately when the DUARTE is "Positive" or when "Cytoplasmic staining is observed." Lab Interpretation (test code = 19541-6) Normal [facility]-FYIUSHNLPMBEASQNB3838-47-38 17:19:09* Test Item Value Reference Range Interpretation Comme nts Anti-Ribonucleoprotein (test code = 7484871553) Negative Negative STAN[place]ORD (test code = STANFORD) Positive - Antibod y detected.Negative - No antibody detected. Lab Interpretation (test code = 17657-0) Normal [facility]-CANALES(SM)2022-04-01 17:19:09* Test Item Value Reference Range Interpretation Comme nts Anti-Canales (test code = 4623477799) Negative Negative ST[place]ORD (test code = STANFORD) Positive - Antibod y detected.Negative - No antibody detected. Lab Interpretation (test code = 19842-7) [facility]-SSA(RO)2022-04-01 17:19:09* Test Item Value Reference Range Interpretation Comme nts ANTI-SSA(RO) (test code = 3675694843) Negative Negative ST[place]ORD (test code = STANFORD) Positive - Antibod y detected.Negative - No antibody detected. Lab Interpretation (test code = 71882-1) [facility]-SSB(LA)2022-04-01 17:19:09* Test Item Value Reference Range Interpretation Comme nts Anti-SSB(LA) (test code = 8817021147) Negative Negative [place]ORD (test code = STANFORD) Positive - Antibod y detected.Negative - No antibody detected. Lab Interpretation (test code = 99388-7) [facility] hospitalIM[facility]UNOGLOBULIN G A M SGXWX6062-06-32 17:18:48 * Test Item Value Reference Range Interpretation Comme nts IgA (test code = 1243128907) 141 mg/dL 70-312 IgG (test code = 8904186558) 920 mg/dL 636-1600 IgM (test code = 5743932343) 56 mg/dL 56-352 Lab Interpretation (test cod e = 38383-4) Normal [facility] Hospital[facility] METABOLIC PANEL (NA, K, CL, CO2, GLUCOSE, BUN, CREATININE, CA)2022-04-01 11:26:53* Test Item Value Reference Range Interpretation Comme nts NA (test code = 3917130977) 141 mmol/L 135-145 K (test code = 7590873245) 3.9 mmol/L 3.5-5 CL (test code = 5563006912) 103 mmol/L 98-108 CO2 TOTAL (test code = 7102314089) 34 mmol/L 23-31 H AGAP (test code = 1285243887) 2-16 BUN (test code = 0759447343) 9 mg/dL 7-23 GLUCOSE (test code = 7749003092) 129 mg/dL 70-110 H CREATININE (test code = 8044446576) 0.73 mg/dL 0.6-1.25 CALCIUM (test code = 9777141259) 9.1 mg/dL 8.6-10.6 eGFR (test code = 3175171413) mL/min/1.73m2 STANFODR (test code = STANFORD) Association of Glomerular [...] imaging tests). Lab Interpretation (test code = 19047-3) Abnormal [facility] with Gbccyobuvzpg1995-07-45 18:20:26* Test Item Value Reference Range Interpretation Comme nts WBC (test code = 6690-2) See_Comment [Automated InVivioLinka ge] The system which generated this result transmitted reference range: 4.20 - 10.70 10*3/?L. The reference range was not used to interpret this result as normal/abnormal. RBC (test code = 789-8) See_Comment [Automated InVivioLinka ge] The system which generated this result [...] 32.6 g/dL 31.2-35 RDW-SD (test code = 02153-0) 45.7 fL 38.5-51.6 RDW-CV (test code = 788-0) 14.9 % 12.1-15.4 PLT (test code = 777-3) See_Comment [Automated InVivioLinka ge] The system which generated this result transmitted reference range: 150 - 328 10*3/?L. The reference range was not used to interpret this result as normal/abnormal. MPV (test code = 37652-0) 9.6 fL 9.8-13 L NRBC/100 WBC (test code = 1359853979) See_Comment [Automated [employer] ssage] The system which generated this result transmitted reference range: 0.0 - 10.0 /100 WBCs. The reference range was not used to interpret this result as normal/abnormal. NRBC x10^3 (test code = 6143621344) See_Comment [Automated InVivioLinka ge] The system which generated this result transmitted reference range: 10*3/?L. The reference range was not used to interpret this result as normal/abnormal. GRAN MAT (NEUT) % (test code = 770-8) 83.6 % IMM GRAN % (test code = 4443099777) 0.40 % LYMPH % (test code = 736-9) 10.6 % MONO % (test code = 5905-5) 4.9 % EOS % (test code = 713-8) 0.1 % BASO % (test code = 706-2) 0.4 % GRAN MAT x10^3(ANC) (test code = 0741142294) 8.56 10*3/uL 1.99-6.95 H IMM GRAN x10^3 (test code = 5813525457) 0.04 10*3/uL 0-0.06 LYMPH x10^3 (test code = 731-0) 1.08 10*3/uL 1.09-3.23 L MONO x10^3 (test code = 742-7) 0.50 10*3/uL 0.36-1.02 EOS x10^3 (test code = 711-2) 0.06-0.53 L BASO x10^3 (test code = 704-7) 0.04 10*3/uL 0.01-0.09 Lab Interpretation (test code = 33250-4) Abnormal [facility] HospitalHEMOGLOBIN A1C* Test Item Value Reference Range Interpretation Comme nts A1C (test code = 4548-4) 6.0 Consult Notes Date/Time Note Provider Source 2023-02-15 12:40:00 4010-11-65Z26:40:00A ssociated Order(s): CONSULT ADULT OCCUPATIONAL THERAPY OT GENERAL EVALUATIONConsult received via [employer], EMR reviewed and evaluation completed 02/15/23. Patient [...] Right 02/12/2022 Surgeon: Adelso Torres MD; Location: [facility] OR ESTELLA PAIN: Denies pain before and after session. [...] to enable patient to complete evaluation component. 72007-1Fluohlu vyzdES3821-66-69B60:54:28Consult noteTXT1.2.840.398090.1.13.104.2 .7.2.974694|[id number] e for patient [id number] K Flaherty [address] YuqvVoysfqilqZykvxtglkXLPL025299 5661CAEEEQAZCWPFLSILPHJJFH6801-8 02-15T15:54:281.2.840.566955.1.72 .3.15|1.2.840.181726.1.13.104.2. 7.2.727879_[id number] Rufus Rand OT [facility] 2023-02-14 14:25:34 6682-45-76H56:25:34A ssociated Order(s): [facility]EASE [facility]EASES CONSULTATION NOTE CLS Infectious Diseases Luis Alberto Rosario MD; Brodie Mckeon MD; Enrique Zuniga MD; Cisco Pollock MD; Malik Rich MD; Magdalena Gan MD; Laura Anne MD; Jhon Miles MD; Frank Alex MD [place] Office: [address], [place] [address] P: / F: [place] Office: [address], [place] [address] P: / F: REQUESTING CLINICIAN:Barak Poon FOR CONSULTATION:Concern for BANKING REPRESENTATIVE infectionHISTORY OF PRESENT ILLNESS:Mike Francis III is a 47 year old male with history of seizure disorder, BANKING REPRESENTATIVE vasculitis who was admitted early this a.m. [...] a normal WBC count. Patient has had BANKING REPRESENTATIVE imaging, which has been reviewed. No culture [...] Right 02/12/2022 Surgeon: Adelso Torres MD; Location: [facility] SOCIAL HISTORY:Social History Tobacco Use Smoking [...] 10 mg, 10 mg, Oral, DAILY, Sigifredo Bosotn MD, 10 mg at 02/14/23 1314 atorvastatin (LIPITOR) tablet 20 mg, 20 mg, Oral, QHS, Sigifredo Boston MD carvediloL (COREG) tablet 25 mg, 25 mg, Oral, BID MEALS, Sigifredo Boston MD, 25 mg at 02/14/23 1315 diphenhydrAMINE (BENADRYL) tablet 25 mg, 25 mg, Oral, PRN, Sigifredo Boston MD divalproex ER (DEPAKOTE ER) 24 hr tablet 1,750 mg, 1,750 mg, Oral, BID, Dolores Caldwell, SOLITARIO, 1,750 mg at 02/14/23 1316 ferrous sulfate tablet 325 mg, 325 mg, Oral, Q OTHERDAY, Sigifredo Boston MD, 325 mg at 02/14/23 1320 fluticasone propionate 50 mcg/actuation nasal spray 1 Nickerson, 1 Nickerson, Nasal, BID, Sigifredo Boston MD, 1 Nickerson at 02/14/23 1316 gabapentin (NEURONTIN) capsule 300 [...] Report Dictated by Resident: Liz Peters, Parmjit Ana Heymann, MD., have reviewed this study and agree with the above report.CT STROKE ANGIOGRAM NECKResult Date: 02/14/2023No large vessel occlusion or flow-limiting stenosis identified in the intracranial or cervical vessels. Preliminary Report Dictated by Resident: Liz Peters, Parmjit Arango MD., have reviewed this study and agree with the above report. ASSESSMENT:47 year old male presents with:*Fever, resolved*BANKING REPRESENTATIVE vasculitis*Seizure disorder with breakthrough seizure*Postictal confusion-Patient's fever has resolved. On clinical evaluation, there is no obvious evidence of BANKING REPRESENTATIVE infection or meningitis. He seems to be waking up and improving without antimicrobials.PLAN:-Monitor off antimicrobials.-Given reported history of BANKING REPRESENTATIVE vasculitis, will screen for syphilis.-No obvious indication for LP from ID standpoint currently.-Further recommendations to follow based upon clinical course.Thank you for this consultation; will continue to follow. 60787-5Rzmmriy qbkrXH4724-05-36B77:35:21Consult noteTXT1.2.840.871120.1.13.104.2 .7.2.397375|[id number] e for patient [address] YmczAhhrbdlmlOfhwstobmTFMP311516 1281KFILJUISRBGIHEBQRNCVNU1852-9 02-14T17:35:211.2.840.719904.1.72 .3.15|1.2.840.462733.1.13.104.2. 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 presenting as a transfer [...] Right 02/12/2022 Surgeon: Adelso Torres MD; Location: [facility] OR LOCATION Allergies Allergen Reactions Shellfish Derived [...] mg, 1,750 mg, Oral, BID, Dolores Caldwell, SOLITARIO ferrous sulfate tablet 325 mg, 325 mg, Oral, Q OTHERDAY, Sigifredo Boston MD fluticasone propionate 50 mcg/actuation nasal spray 1 Nickerson, 1 Nickerson, Nasal, BID, Sigifredo Boston MD gabapentin (NEURONTIN) [...] mEq, 40 mEq, Oral, ONCE, Dolores Caldwell, SOLITARIO lisinopriL (PRINIVIL,ZESTRIL) tablet 40 mg, 40 mg, [...] of motionSkin: dry, intact, normal color, normal temperatureNeuro/BANKING REPRESENTATIVE: Mental status: alert, oriented X self. Aphasic [...] Seizure disorder 2. Post ictal state 3. BANKING REPRESENTATIVE vasculitis 47 yo with BANKING REPRESENTATIVE vasculitis presenting with breakthrough seizure in setting [...] in neurological status. Duglas Miller MD Neurologist 91183-1Twitktg xtlgGN7285-96-46M74:58:35Consult noteTXT1.2.840.697771.1.13.104.2 .7.2.341902|[id number] e for patient careUTREHABILIT[facility] - [address] JfwdWrlqrvebfXzeyxmyroLGJH453329 9472LLNAIWZPQCFTDGGYGAGHIV8162-0 7-24T09:58:351.2.840.003778.1.72 .3.15|1.2.840.091808.1.13.104.2. 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 Ibuprofen 800, normal saline bolus 1 L, IV lacosamide(Vimpat) l2JFLYHO OF SYSTEMS(-)=Negative,(+)=Positive See HPIPAST MEDICAL HISTORY Past Medical History: Diagnosis Date CAD (coronary artery disease) HLD (hyperlipidemia) HTN (hypertension) Pre-diabetes Past Surgical History: Procedure Laterality Date CRANIOTOMY BIOPSY BRAIN (SHX) Right 02/12/2022 Surgeon: Adelso Torres MD; Location: [facility] Family History Problem Relation Age of [...] RELIEF) 50 mcg/actuation nasal spray Use 1 Nickerson in each nostril in the morning and 1 Nickerson in the evening. 16 g 0 amLODIPine [...] (ONE-A-DAY MEN'S MULTIVITAMIN ORAL) Take by mouth. sbxdk-8t-tof-epa-fish oil-D3 (FISH OIL-VIT D3) 360 mg-1,200 mg -1,000 unit Cap Take by mouth. 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 The [...] matter changes likely relatedto the patient's known BANKING REPRESENTATIVE vasculitis.ASSESSMENT/PLANMike Sarah Francis III is a 48 year old male with PMH as listed above, admitted to the hospital with:Breakthrough seizuresCOVID-19 infectionPrimary BANKING REPRESENTATIVE angiitis(biopsy-proven 03/2022)Patient presented with 2 episodes of [...] treatment only at this time.- Admit to [facility]-Patient currently n.p.o. as patient appeared confused. Will [...] 3 months from the last seizure per [place] Simplify Law. 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 72992-6Hvckusu and physical zfksXJ8318423SkcrOma.1.2.840.680898.1.13.104.2.7.2.151564Pjei Rena.GY6196-69-11N39:22:47History and physical noteTXT1.2.840.111904.1.13.104.2.7.2.39032 9|[id number] for patient xaqr06777-2Rksvses and physical noteLNUT[address] XtznIzpqmbwxrZdsbkpwhgHRJI5766962523KKGUBO MSKQSITMFVKWTLBF7237-85-33N93:22:471.2.840 .259405.1.72.3.15|1.2.840.155015.1.13.104. 2.7.2.727879_[id number] [facility] 2023-02-14 01:18:10 7463-61-54K77:18:10F ormatting of this note is different from the original.[facility] Intensive Care History and Physical Date of Service: 02/14/2023 01:19 IMU day: 1Intubation Day: n/aCHIEF COMPLAINT: Worsening mentation/altered mental statusHISTORY OF PRESENT ILLNESSMike Francis III is a 47 year old male who presented to [facility] with worsening seizure activity and post-ictal worsening lethargy. Request was made for ICU level of care. Transferred here because well known to [facility]. On arrival pt. 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 Marcano aware of pt. Chronic BANKING REPRESENTATIVE Vasculitis with seizure disorderChecking basic labsTSHPer , pt. Seizure free [facility].Will reordered all meds.Once plan in place, [...] Heparin SQ for nowDispo:IMUPrognosis:FairCode Status: FullVictor Ludy HARMONMIM[facility]ES [facility] Tcbihdjwjdbcbz68/24/231:19 AM 95783:I spent a total of 40 minutes reviewing the chart and test results, obtaining the history, performing the exam and MDM along with placing orders, charting, and speaking with the patient/family. 71927-6Kernmpc and physical lcsbFK4417-38-70L15:25:07History and physical noteTXT1.2.840.094078.1.13.104.2.7.2.39565 9|[id number] for patient [address] JfonAbhphgtphWjemqdlnwHTLL7377873477UOLKPS CNVDYKCZWGORMGJE5812-27-15T33:25:071.2.840 .327411.1.72.3.15|1.2.840.483720.1.13.104. 2.7.2.727879_[id number] [facility] Notes Date/Time Note Provider Source 2023-11-25 09:30:00 8866-32-25J25:30:00F ormatting of this note is different from the original.Images from the original note were not included.Venipuncture collection performed by clean technique on the left hand. Total of 1 attempts were made. Slight pressure and a bandage/dressing were applied to the site(s). The patient experienced no complications. The following specimens were processed according to instructions and sent to [facility] laboratories per lab order on 11/25/2023:LT BLUESST 2RED 1LAV 1PPTDK GREEN (LiHep)DK GREEN (SodH)GRAYDK BLUE (K2)DK BLUE (S)ACDBlood CultureNIPT/NTD 23894-5Smxil VknfMX8676-64-72M47:43:21Nurse NoteTXT1.2.840.387137.1.13.104.2. 7.2.086978|[id number] for patient cfdn99326-6Lhqho NoteLNNARRATIVEFormatted C-CDA narrative text[address]TXTX[address] 952SYBAIESRXDKGQMYIJYSIWO0485-79- 03T09:43:211.2.840.029801.1.72.3. 15|1.2.840.564771.1.13.104.2.7.2. 727879_[id number] [facility] 2023-09-06 15:41:38 1987-49-97F09:41:38F ormatting of this note might be different from the original.NOV 11/25/23Routing to provider for approval or denial 97657-6Nhitrdqnc encounter OednVV7753-22-31W40:42:59Telephon e encounter NoteTXT1.2.840.901275.1.13.104.2. 7.2.561239|[id number] for patient rsic80392-8MydsPHGHQZLZIJLYrtdtyy ed C-CDA narrative ecic779859888Qsxjbaisha RANGEL[address]TXTX[address] 804DHXILBQLEHSKXQNSHDPSPQ2700-84- 13T15:42:591.2.840.219133.1.72.3. 15|1.2.840.142053.1.13.104.2.7.2. 727879_[id number] Belkys Lagos MA [facility] 2023-03-22 13:46:18 1520-82-19Q50:46:18F ormatting of this note is different from the original.TRANSITIONAL CARE MANAGEMENT ASSESSMENT03/22/2023 Mike Francis III207274PMbaltazar Francis III is a 48 year old Black or male was admitted on 03/20/[address] He was discharged on 03/21/23 with discharge disposition of HR- Routine Discharge.Admitting Physician: Oma ObandoDischarge Diagnosis: Breakthrough Seizure 2/2 primary BANKING REPRESENTATIVE angitis No linked episodesTCM Toc-jvkw-bo-face outreach documentation:Discharge AssessmentChart Assessed: 03/22/23TCM Outreach Completed: [...] Department Dept Phone 05/23/2023 1:30 PM ([facility]), Girish Team-[facility] Community Engagement and Education [facility] [phone] 05/27/2023 3:00 PM Elin Vieyra MD [facility] Neurology, PCP [place] [phone] 06/03/2023 8:45 AM Kalyan Smart Infusion Chair [facility] [phone] 06/14/2023 9:30 AM Marlon Bush MD [facility] Eye [facility] [phone] 82169-5Rdvhacoki encounter LzubQW2217-61-60T96:46:55Telephon e encounter NoteTXT1.2.840.646366.1.13.104.2. 7.2.622619|[id number] for patient oyyg36370-0IefzNC023842343Jedrs B Mckeon RN[address]TXTX[address] 103AQTIYGGGQMWBSKTRAJHMCX4341-87- 29T13:46:551.2.840.501001.1.72.3. 15|1.2.840.029145.1.13.104.2.7.2. 727879_[id number] Jewell Blake Mike [facility] 2023-03-21 16:36:25 3837-99-60U05:36:25F ormatting of this note might be different from the original.Problem: Falls, Risk ofGoal: Absence of fallsOutcome: Resolved Problem: Seizures, Risk of / or ActualGoal: Absence of injury related to seizure activityOutcome: ResolvedGoal: Absence of seizure activityOutcome: Resolved 24655-3Blug of care ujayRU4950-80-82V24:36:30Plan of care noteTXT1.2.840.068802.1.13.104.2. 7.2.737277|[id number] for patient gmvh92525-7MrieOS332814858Hfebu Bentum [address]TXTX[address] 734WUJCEQNAQCVGDEYIGGAAQH5556-99- 28T16:36:301.2.840.303743.1.72.3. 15|1.2.840.723024.1.13.104.2.7.2. 727879_[id number] Sandra Lopez [facility] 2023-03-21 01:56:57 0119-04-49M48:56:57F ormatting of this note might be different from the original.Problem: Falls, Risk ofGoal: Absence of fallsOutcome: Progressing as expected Problem: Seizures, Risk of / or ActualGoal: Absence of injury related to seizure activityOutcome: Progressing as expectedGoal: Absence of seizure activityOutcome: Progressing as expected 03786-4Rcsj of care kbmcHB1854-83-49U56:57:00Plan of care noteTXT1.2.840.882669.1.13.104.2. 7.2.546659|[id number] for patient npvs25196-7QipoSE726674266Gwefzp N Gonzalez Leon RN[address]TXTX[address] 495SCMMQQCSMYZOTFCWPNHZLW3301-13- 28T01:57:001.2.840.517391.1.72.3. 15|1.2.840.652625.1.13.104.2.7.2. 727879_[id number] Shama Mendoza RN [facility] 2023-03-20 23:42:28 7308-83-14Z17:42:28F ormatting of this note might be different from the original.Resident at to assess ptPt transported to the floor via stretcher with [facility] transport and significant other. Patient aaox2, breathing even/unlabored, in NAD. Patient stable for transport at this time. 81446-6Anlfgpkfi department LpzvHA7697-36-82E26:44:37Emergen y department NoteTXT1.2.840.365031.1.13.104.2. 7.2.051720|[id number] for patient miye15521-3HhkxVI050261831Sipmljk R Davenport RN[address]TXTX[address] 150YKHWPPCVWAMDMVXJDVRLCI5296-54- 27T23:44:371.2.840.852346.1.72.3. 15|1.2.840.869468.1.13.104.2.7.2. 727879_[id number] Nazia Galloway RN [facility] 2023-03-20 23:24:49 5288-57-31F01:24:49F ormatting of this note might be different from the original.Report called to Shama DUONG on 9C. POC discussed, questions answered. Pending transportation at this time 36161-6Hfxiorhco department JscwMY7176-39-83E82:26:01Eme[facility] NoteTXT1.2.840.460066.1.13.104.2. 7.2.948715|[id number] for patient jqer72270-6DlsgRXJWHTTAZW[address]TXTX[address] 006HUKJVNVCUWRPTANKMWQYUS3340-08- 27T23:26:011.2.840.706887.1.72.3. 15|1.2.840.188295.1.13.104.2.7.2. 727879_[id number] [facility] 2023-03-20 22:00:00 8322-68-26J00:00:00F ormatting of this note might be different from the original.Pt now oriented to name, but unable to remember birthday, where he is or what happened. 59781-5Dohzidlqt department LeuoRS4776-28-85A13:14:07[facility] NoteTXT1.2.840.674678.1.13.104.2. 7.2.571755|[id number] for patient ajpg88231-2IgajOBXUAERAZB[address]TXTX[address] 260JQFFIWMTAHWCETXRBLRZFV2299-27- 27T22:14:071.2.840.014155.1.72.3. 15|1.2.840.624849.1.13.104.2.7.2. 727879_[id number] [facility] 2023-03-20 21:08:52 5923-82-28Z80:08:52F ormatting of this note might be different from the original.Neuology Resident at to assess pt. Resident notified of changes 79241-3Hqmbvlsff department YhygQI7928-01-96S52:09:19Emer[facility] department NoteTXT1.2.840.782758.1.13.104.2. 7.2.681955|[id number] for patient tbfn68734-6FwduMBFERGJFUQ[address] ImrlRtwxhrnmbRuorodxyoALFW4759721 447XIZGNODUBPPKDTEQJTUGSR5862-31- 27T21:09:191.2.840.980393.1.72.3. 15|1.2.840.302883.1.13.104.2.7.2. 727879_[id number] [facility] 2023-03-20 21:00:00 1159-45-71D15:00:00F ormatting of this note might be different from the original.Pt resting in stretcher on continuous hiv cts specialist. Upon entry to room pt sleeping in stretcher. Pt AOx0, per family member this has happened before but not since they have been at the hospital. Kianna HARMON notified. 01745-0Phjhfmbla department DvjiPT4843-50-58D02:29:47Emer[facility] department NoteTXT1.2.840.029678.1.13.104.2. 7.2.347699|[id number] for patient mmlh41607-8HuekIWBXZRJVGF[address]TXTX[address] 222MHEPTRASRVLDEFYJBTKKCW3448-88- 27T21:29:471.2.840.551201.1.72.3. 15|1.2.840.451302.1.13.104.2.7.2. 727879_[id number] [facility] 2023-03-20 19:06:49 8944-46-99Y17:06:49F ormatting of this note might be different from the original.Shift change report given to AD Mandujano. Reviewed chief complaint, assessment findings, allergies, MAR and orders. Plan of care discussed at bedside with patient and both nurses. Patient / family verbalized understanding of POC. 34546-8Axdtabkte department QhzzFK3193-53-41K83:07:04[facility] department NoteTXT1.2.840.164806.1.13.104.2. 7.2.011621|[id number] for patient mdgh12264-7BifjTF078964175Suwedu Jordon LEMA[address]TXTX[address] 544KODNGXQEWEGGFPVVLTDAFG0581-63- 27T19:07:041.2.840.030394.1.72.3. 15|1.2.840.840430.1.13.104.2.7.2. 727879_[id number] Thien Ruvalcaba RN [facility] 2023-03-20 19:00:00 9322-19-11B64:00:00F ormatting of this note might be different from the original.Pt returned from radiology. [place] [address]-6Okvqcjxtt department XwdbUG4407-00-60G52:09:59[facility] department NoteTXT1.2.840.678588.1.13.104.2. 7.2.185525|[id number] for patient qwvx95991-6WeowGHMWJUOQNE[address]TXTX[address] 813GBAGROIXKSZMRHZYHJJKHZ6040-95- 27T21:09:591.2.840.669844.1.72.3. 15|1.2.840.646262.1.13.104.2.7.2. 727879_[id number] [facility] 2023-03-20 18:05:00 7896-03-88Y89:05:00F ormatting of this note might be different from the original.Pt calm, quiet, in bed, RR e/u, at side and call light within reach. 70967-2Lnvkxushl department IizgKC0668-64-49X76:13:55Emer[facility] department NoteTXT1.2.840.488061.1.13.104.2. 7.2.425566|[id number] for patient nayr15750-6HuewZMNDEZBWGJ[address]TXTX[address] 718EKPSHQFJZLVTCWOXNZJVYF6070-18- 27T19:13:551.2.840.194657.1.72.3. 15|1.2.840.527651.1.13.104.2.7.2. 727879_[id number] [facility] 2023-03-20 18:03:43 3048-82-01Q59:03:43F ormatting of this note might be different from the original.Pt transferred via stretcher to 115 at this time. Report given to AD Cordoba. Pt alert but appears post ictal, slightly anxious VSS. 78765-6Olncpossp department RqnqFV6941-18-21R11:04:19Emer[facility] department NoteTXT1.2.840.012272.1.13.104.2. 7.2.116474|[id number] for patient rltj23273-7BqynVX392859492Spygoo M Davis RNUT[address]TXTX[address] 810CJOTJWNXHQIMOHWDKYSAJN5089-30- 27T18:04:191.2.840.446467.1.72.3. 15|1.2.840.437827.1.13.104.2.7.2. 727879_[id number] Lelia Tam RN [facility] 2023-03-20 17:27:33 9200-79-81C39:27:33F ormatting of this note might be different from the original.ED MD and RN at bedside attempting U/S guided IV access 80552-3Iwczetrmq department IzwaVU9457-83-41D85:27:51Emer[facility] department NoteTXT1.2.840.195646.1.13.104.2. 7.2.904225|[id number] for patient tpyo70102-3RsmhFSWFPSNGNK[address]TXTX[address] 809KGIXPICHJGYODAWAUEDIQP0645-76- 27T17:27:511.2.840.216680.1.72.3. 15|1.2.840.108317.1.13.104.2.7.2. 727879_[id number] [facility] 2023-03-20 17:13:11 4387-04-70V65:13:11F ormatting of this note might be different from the original.Mike Francis III is a 48 year old male presents to the ed with cc of seizure like activity. Pt has history of BANKING REPRESENTATIVE vasculitis and seizures. Pt presents to the [...] vss. To room for eval by provider. 73548-1Dcocuhsyj department Triage peptTZ7874-48-45T64:18:44[facility] department Triage noteTXT1.2.840.038912.1.13.104.2. 7.2.823501|[id number] for patient wkym45940-2Rykwmwuin department HsgxWR600390866Qmzpldj Herndon RN[address] QmbcWbweoswptOvpsetvyfFCDX6270210 112KGVSZRYIYSDQMABGLBKQMY1106-84- 27T17:18:441.2.840.559538.1.72.3. 15|1.2.840.167139.1.13.104.2.7.2. 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 Spouse does report associated fevers with previous [...] Right 02/12/2022 Surgeon: Adelso Torres MD; Location: [facility] Review of Systems: Review of Systems [...] 1.7 - 2.4 mg/dL COMP. METABOLIC PANEL (28613) NA 138 135 - 145 mmol/L K [...] URINALYSIS CBC WITH DIFF COMP. METABOLIC PANEL (21068) MAGNESIUM VALPROIC ACID, FREE Blood Culture - [...] RELIEF) 50 MCG/ACTUATION NASAL SPRAY Use 1 Nickerson in each nostril in the morning and 1 Nickerson in the evening. GABAPENTIN 300 MG CAPSULE [...] (ONE-A-DAY MEN'S MULTIVITAMIN ORAL) Take by mouth. NJCOV-2O-CHE-EPA-FISH OIL-D3 (FISH OIL-VIT D3) 360 MG-1,200 MG [...] file Follow-up:Electronically signed by: Joan Waite MD03/20/231906 78903-8Bjsglljav Emergency department NkkbTR7155-76-44P70:07:04Physicia n Emergency department NoteTXT1.2.840.615097.1.13.104.2. 7.2.032719|[id number] for patient uuih98685-2Hlshasuqa department NoteLNUT[address] TrbcMxaztyfjoEtjjumzwdRCFA4399574 349DYMBGZEMBNGFNEMFKVDDXM8118-86- 27T19:07:041.2.840.849446.1.72.3. 15|1.2.840.266219.1.13.104.2.7.2. 727879_[id number] [facility] 2023-03-20 16:58:00 0677-26-37Q26:58:00F ormatting of this note might be different from the original.Medical Decision MakingTook over patient's care after shift [...] drug management.Parenteral controlled substances. Maury Hutchison MD03/20/232221 82331-9Qqqpvbfft Emergency department KxnvRS3794-24-96B49:22:18Physicia n Emergency department NoteTXT1.2.840.984966.1.13.104.2. 7.2.588286|[id number] for patient wdty06199-8Alwjqfifa department NoteLNEMCARE EMERGENCY PHYSICIAN STAFFEMCARE EMERG[facility] PHYSICIAN STAFF[address] [id number] 471NCSTMHGHOOUQCAIJMXFAAF6231-06- 27T22:22:181.2.840.124011.1.72.3. 15|1.2.840.119454.1.13.104.2.7.2. [id number] [facility] 2023-02-18 08:56:10 4241-24-05S49:56:10F ormatting of this note might be different from the original.New prescription sent for qty 240 tabs with 3 refills to last patient until f/u with Dr Vieyra in May, called pt, left detailed message stating med sent to pharmacy. 34051-4Vrnyxkvcw encounter VzuhPI8815-80-44O67:57:03Telephon e encounter NoteTXT1.2.840.110529.1.13.104.2. 7.2.038508|[id number] for patient [id number] 977GFADREGOCPYAVKCQMWTAER0027-64- 28T08:57:031.2.840.685976.1.72.3. 15|1.2.840.926620.1.13.104.2.7.2. [id number] [facility] 2023-02-17 10:51:27 2101-96-48K06:51:27F ormatting of this note is different from the original.Patient calling stating that patient was prescribed divalproex [...] Dr Vieyra 05/2023. Please contact patient at [phone] (home) 38016-4Gbvbmidbs encounter JxxvRG1473-44-14O64:53:45Telephon e encounter NoteTXT1.2.840.491018.1.13.104.2. 7.2.293517|[id number] for patient [id number] Segura[address]TXTX[address] 784PXUTOZHFXBCPXIHNEIIFKK3718-18- 27T10:53:451.2.840.865815.1.72.3. 15|1.2.840.874197.1.13.104.2.7.2. [id number] Gadiel Stevensonierrez [facility] 2023-02-17 08:45:32 9280-78-57Q23:45:32F ormatting of this note is different from the original.TRANSITIONAL CARE MANAGEMENT ASSESSMENT02/17/2023 Mike Francis [id number] Francis III is a 47 year old Black or male was admitted on 02/13/23 to [facility] 6B. He was discharged on 02/16/23 with discharge disposition of HR- Routine Discharge.Admitting Physician: Joao Zurita Diagnosis: Altered mental status [R41.82]Pt.'s Verbalized understanding discharge instructions. Linked Episodes Type: Episode: Status: Noted: Resolved: Last update: Updated by: TRANSITION OF CARE tcm Active 02/17/2023 02/17/2023 8:45 AM Leslie Palm LVN Comments: TCM Ylr-tzox-cv-face outreach documentation:Discharge AssessmentChart Assessed: 02/17/23TCM Outreach Completed: [...] with the names or descriptions of any yqhc-poa-oawrsln or supplements you are currently taking?: YesSuppliesDid [...] Provider Department Dept Phone 05/23/2023 1:30 PM (Cmoh[facility], [place] [phone] 05/27/2023 3:00 PM Elin Vieyra MD [facility] Neurology, PCP [place] [phone] 06/03/2023 8:45 AM 4, Arina-Andre Infusion Chair [facility] [phone] 90142-5Jnyaezdts encounter UahkJU9545-42-65W21:46:38Telephon e encounter NoteTXT1.2.840.477437.1.13.104.2. 7.2.888678|[id number] for patient [id number] Rivas [address] [id number] 191OCEDKAEXBXVEEWXTBOHLMJ1420-65- 27T08:46:381.2.840.604895.1.72.3. 15|1.2.840.638042.1.13.104.2.7.2. [id number] Leslie Palm LVN [facility] 2023-02-16 11:42:24 9666-18-23R84:42:24F ormatting of this note might be different from the original.Problem: Discharge PlanningGoal: Adequate for discharge02/16/2023 1142 by [...] by Ramonita Mondragon RNOutcome: Adequate for discharge 29653-1Gfkl of care zjkbUX3470-22-58D73:42:28Plan of care noteTXT1.2.840.430922.1.13.104.2. 7.2.751600|[id number] for patient [id number] E Roos RN[address]TXTX[address] 151WFXCHXAUIPSVBSIMUFMRTR1242-21- 26T11:42:281.2.840.371178.1.72.3. 15|1.2.840.465775.1.13.104.2.7.2. [id number] Ramonita Mondragon RN [facility] 2023-02-16 10:51:56 2840-35-72B88:51:56F ormatting of this note might be different from the original.Problem: Discharge PlanningGoal: Adequate for dischargeOutcome: Adequate for discharge Problem: Falls, Risk ofGoal: Absence of fallsOutcome: Adequate for discharge Problem: Mental Status - Impaired, Risk ofGoal: Mental status restored to baselineOutcome: Adequate for dischargeGoal: Absence of physical injuryOutcome: Adequate for discharge 48131-7Hfal of care tmenRU3457-32-94G45:52:00Plan of care noteTXT1.2.840.887992.1.13.104.2. 7.2.198884|[id number] for patient [address] 692XNOGKJOCBNZEOEHPEXEDYJ5760-99- 26T10:52:001.2.840.850021.1.72.3. 15|1.2.840.354687.1.13.104.2.7.2. [id number] [facility] 2023-02-15 23:47:29 3043-37-83I77:47:29F ormatting of this note might be different from the original.Problem: Discharge PlanningGoal: Adequate for dischargeOutcome: Progressing as expected Problem: Falls, Risk ofGoal: Absence of fallsOutcome: Progressing as expected Problem: Mental Status - Impaired, Risk ofGoal: Mental status restored to baselineOutcome: Progressing as expectedGoal: Absence of physical injuryOutcome: Progressing as expected 79574-3Lomz of care kryjCN9029-00-09B64:47:35Plan of care noteTXT1.2.840.900030.1.13.104.2. 7.2.032803|[id number] for patient [id number] Jose RN[address]TXTX[address] 299HOWGEIUFAWADIRPESLTHOO3086-53- 25T23:47:351.2.840.074038.1.72.3. 15|1.2.840.632319.1.13.104.2.7.2. [id number] Haven Saucedo RN [facility] 2023-02-15 12:33:10 8647-77-53J59:33:10F ormatting of this note might be different from the original.Problem: Discharge PlanningGoal: Adequate for dischargeOutcome: Progressing as expected Problem: Falls, Risk ofGoal: Absence of fallsOutcome: Progressing as expected Problem: Mental Status - Impaired, Risk ofGoal: Mental status restored to baselineOutcome: Progressing as expectedGoal: Absence of physical injuryOutcome: Progressing as expected 96630-2Ryhw of care ymuoUR2235-91-11B10:33:15Plan of care noteTXT1.2.840.103720.1.13.104.2. 7.2.277697|[id number] for patient [address] 191DMROZOJQKNXZYPDNZNVCZN8593-31- 25T12:33:151.2.840.239173.1.72.3. 15|1.2.840.709365.1.13.104.2.7.2. [id number] [facility] 2023-02-14 05:48:59 0559-70-30J88:48:59F ormatting of this note might be different from the original.Problem: Discharge PlanningGoal: Adequate for dischargeOutcome: Progressing as expected Problem: Falls, Risk ofGoal: Absence of fallsOutcome: Progressing as expected Problem: Mental Status - Impaired, Risk ofGoal: Mental status restored to baselineOutcome: Progressing as expectedGoal: Absence of physical injuryOutcome: Progressing as expected 47413-0Kxvr of care twdvTA8981-84-21Z41:49:02Plan of care noteTXT1.2.840.197571.1.13.104.2. 7.2.442062|[id number] for patient [address] 550QNWUGDWTKMBVQCEOJWBZDS9478-84- 24T05:49:021.2.840.030881.1.72.3. 15|1.2.840.374305.1.13.104.2.7.2. [id number] [facility]
[2024-01-22] MEDS ORDERED: NA CHLORIDE 0.9% 1,000 ML ONE ×2 (19:14→19:51)
[2024-01-22 19:16] LABS: Absolute Basophils 0.1 K/uL (0-0.5); Absolute Eosinophils 0.1 K/uL (0-0.5); Absolute Lymphocytes (CBC) 1.2 K/uL (0.7-4.9); Absolute Monocytes 1.1 K/uL (0.1-1.3); Absolute Neutrophil 4.5 K/uL (1.8-8.0); Basophils % 0.9 % (0-1.3); Eosinophils % 1.8 % (0-4.4); Hematocrit 34.8 % (39.6-49.0); Hemoglobin 11.5 g/dL (13.6-17.9); Lymphocytes % 17.2 % (15.3-44.8); MCH 28.1 pg (27.0-35.0); MCHC 32.9 g/dL (32.0-36.0); MCV 85.4 fL (80-100); MPV 7.1 fL (7.6-11.3); Monocytes % 15.8 % (3.3-12.3); Neutrophils % 64.3 % (41.7-73.7); Nucleated Red Blood Cells % 0.2 % (0-0); Platelets 359 thou/uL (152-406); RBC Red Blood Cell Count 4.08 M/uL (4.33-5.43); Red Cell Distribution Width 15.2 % (12.1-15.2)
[2024-01-22] MEDS ORDERED: LORazepam 2 MG/ML VIAL ONE ×2 (19:17→19:44)
[2024-01-22 19:46] LABS: Albumin 3.1 g/dL (3.4-5.0); Albumin/Globulin Ratio 0.9 (1.1-1.8); Anion Gap 9.3 mEq/L (5.0-15.0); Bilirubin Total 0.3 mg/dL (0.2-1.0); Globulin 3.5 g/dL (2.3-3.5); Protein, Total 6.6 g/dL (6.4-8.2)
--- NOTE | 2024-01-22 19:48 | RAD REPORT ---
EXAM DESCRIPTION: CT - Head Brain Wo Cont - 01/22/2024 7:36 pm CLINICAL HISTORY: SEIZURE Headache, drowsiness, seizure COMPARISON: <Comparisons> TECHNIQUE: All CT scans are performed using dose optimization technique as appropriate and may inclu de automated exposure control or mA/KV adjustment according to patient size. FINDINGS: No intracranial hemorrhage, hydrocephalus or extra-axial fluid collection.Moderate atrophy .No areas of brain edema or evidence of midline shift. The paranasal sinuses and mastoids are clear. Previous right frontal craniotomy noted. IMPRESSION: No acute intracranial abnormality.
[2024-01-22 19:49] LABS: Platelet Estimate ADEQ; White Blood Cell Scan OK (OK)
[2024-01-22 19:50] LABS: Blood Morphology Comment NOTED (NOT SEEN); Hypochromasia 2+
[2024-01-22] MEDS ORDERED: propofoL 200 MG/20 ML VIAL IV ONE (19:50)
[2024-01-22] MEDS ORDERED: ROCURONIUM 50 MG/5 ML VIAL IV ONE (19:51)
[2024-01-22] MEDS ORDERED: propofoL 1,000 MG/100 ML VIAL IV ONE ×3 (19:51→23:13)
[2024-01-22 19:58] LABS: Potassium 3.3 mEq/L (3.5-5.1)
[2024-01-22 20:09] LABS: Barbiturates NEGATIVE (NEGATIVE); Benzodiazepines POSITIVE (NEGATIVE); Cocaine NEGATIVE (NEGATIVE); METHAMPHETAM NEGATIVE (NEGATIVE); Methadone NEGATIVE (NEGATIVE); Opiates NEGATIVE (NEGATIVE); Phencyclidine NEGATIVE (NEGATIVE); THC Cannibis NEGATIVE (NEGATIVE)
[2024-01-22 20:11] LABS: Specific Gravity 1.022 (1.005-1.030); Sqamous Epithelial None Seen /HPF (None Seen); Urine Bacteria <20 /HPF (<20); Urine Bilirubin NEGATIVE (Negative); Urine Blood Negative (Negative); Urine Clarity Extremely Turbid (Clear); Urine Color Light-Yellow (Yellow); Urine Culture Reflex Order NOT NEEDED; Urine Glucose NEGATIVE (Negative); Urine Ketones TRACE (Negative); Urine Microscopic Reflex YN ORDER UMIC; Urine Nitrite NEGATIVE (Negative); Urine Protein NEGATIVE (Negative); Urine RBC <5 /HPF (None Seen); Urine Urobilinogen 1+ (Normal); Urine WBC <5 /HPF (<5)
--- NOTE | 2024-01-22 20:42 | ER ---
Nurse's Notes [facility] Name: Mike Francis III Age: 48 yrs Sex: Male : 1975 Arrival Date: 01/22/2024 Time: 18:05 Bed 4 Private MD: Diagnosis: Epilepsy, unspecified, not intractable, with status epilepticus Presentation: 01/21 18:30 Chief complaint: EMS states: Seizure activity that started at approx 1700. reports hb he fell backwards from standing position. 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 BP 191/107, HR 91, SpO2 98% on 2LNC. Coronavirus screen: At this time, the client does not indicate any symptoms associated with coronavirus-19. Ebola Screen: No symptoms or risks identified at this time. Initial Sepsis Screen: Does the patient meet any 2 criteria? No. Patient's initial sepsis screen is negative. Does the patient have a suspected source of infection? No. Patient's initial sepsis screen is negative. Risk Assessment: Do you want to hurt yourself or someone else? Patient reports no desire to harm self or others. Onset of symptoms was January 22, 2024 at 17:00. 18:30 [facility] Of Ar[facility]: [facility] hb 18:30 Acuity: IFEANYI 2 hb Historical: - Allergies: 18:32 Keppra; hb 18:32 SHELLFISH; hb - Home Meds: 18:32 amlodipine 10 mg tab 1 tab once daily [Active]; atorvastatin oral [Active]; carvedilol hb 25 mg Oral tab 1 tab 2 times per day [Active]; divalproex 1750 mg Oral tablet twice a day [Active]; ferrous sulfate 325 mg (65 mg iron) Oral tablet daily [Active]; fluticasone propionate inhalation [Active]; gabapentin 300 mg Oral capsule 3 times per day [Active]; glyburide 5 mg Oral tablet 2 times per day [Active]; hydralazine 25 mg Oral tablet 4 times per day [Active]; hydroxyzine HCl 10 mg Oral tablet as needed for Anxiety [Active]; lacosamide oral [Active]; lisinopril 40 mg Oral tablet daily [Active]; metformin 1 Oral tablet 2 times per day [Active]; multivitamin Oral tablet daily [Active]; pantoprazole oral [Active]; Potassium Chloride Oral [Active]; Potassium Chloride Oral [Active]; risperidone 1 mg/mL Oral solution 2 times per day [Active]; - PMHx: 18:32 brain lesions/swelling of the brain; Diabetes - NIDDM; High Cholesterol; Hypertension; hb Mild Heart Attack x 2; 18:35 CVA; CAD; Autoimmune Encephalitis; DVT; Depression; Chronic Pain; Seizure; TBI; hb - PSHx: 18:32 Appendectomy; brain surgery (January 2022); hb - Immunization history:: Adult Immunizations up to date. - Infectious Disease History:: Denies. - Social history:: Smoking status: Patient denies any tobacco usage or history of. Screenin:[facility] Fall Risk Assessment (Adult) History of falling in the last 3 months, me1 including since admission No falls in past 3 months (0 pts) Confusion or Disorientation No (0 pts) Intoxicated or Sedated No (0 pts) Impaired Gait No (0 pts) Mobility Assist Device Used No (0 pt) Altered Elimination No (0 pt) Score/Fall Risk Level 0 - 2 = Low Risk Maintained a safe environment, Provided non-skid footwear, Hourly rounding (assess needs \T\ fall precautionary measures) done. Abuse screen: Denies threats or abuse. Nutritional screening: No deficits noted. Tuberculosis screening: No symptoms or risk factors identified. Assessment: 18:30 General: Appears ill, Behavior is unresponsive. Reports seizure that started about me1 17:00. Patient continued to have intermittent seizures after arrival. Notified YESSENIA Sevilla. Pain: Unable to use pain scale. FLACC scale score is 0 out of 10. Neuro: Level of Consciousness is lethargic, unresponsive, Oriented to uto. Seizure activity noted at this time. reported prior to arrival. Patient is post-ictal at this time. Intermittent seizures that started at 17:00 and continued after arrival to ED. Patient was unresponsive most of the time with very short periods of time that lasted up to 20-30 seconds at a time when he would open his eyes and mumble between seizures. Cardiovascular: Patient's skin is warm and dry. Respiratory: Airway is patent Respiratory effort is even, unlabored, Respiratory pattern is regular, symmetrical. GI: No signs and/or symptoms were reported involving the gastrointestinal system. : No signs and/or symptoms were reported regarding the genitourinary system. EENT: No signs and/or symptoms were reported regarding the EENT system. Derm: Skin is intact, is healthy with good turgor, Skin is pink, warm \T\ dry. Musculoskeletal: No signs and/or symptoms reported regarding the musculoskeletal system. 19:53 Reassessment: Patient appears in no apparent distress at this time. Patient and/or bm8 family updated on plan of care and expected duration. Pain level reassessed. Reassessment: Intubated pt at this time due to continuous seizure activity. Neuro: Seizure activity noted at this time. Cardiovascular: Capillary refill < 3 seconds Patient's skin is warm and dry. Respiratory: Airway is patent Respiratory effort is even, unlabored, Respiratory pattern is regular, symmetrical, Breath sounds are clear bilaterally. 19:53 Neuro: Nolan Agitation-Sedation Scale (RASS): -2 Light sedation. bm8 21:47 Reassessment: Patient appears in no apparent distress at this time. No changes from bm8 previously documented assessment. Patient and/or family updated on plan of care and expected duration. Pain level reassessed. several unsuccessful attempts to place OG tube. MD is aware. 21:55 Neuro: Nolan Agitation-Sedation Scale (RASS): -5 Unarousable. bm8 22:29 Reassessment: report called to gina luong at [facility] ICU. bm8 Vital Signs: 18:30 BP 169 / 101; Pulse 84; Resp 18; Temp 98.7(A); Pulse Ox 98% on R/A; Weight 130.18 kg; hb Height 6 ft. 4 in. ; Pain 0/10; 18:30 BP 166 / 103; Pulse 91; Resp 22; Pulse Ox 97% on R/A; me1 19:00 BP 176 / 100; Pulse 83; Resp 16; Pulse Ox 95% on R/A; me1 19:30 BP 172 / 102; Pulse 91; Resp 19; Pulse Ox 97% on R/A; me1 20:00 BP 177 / 120; Pulse 119; Resp 20; Temp 97.8; Pulse Ox 100% ; Pain 0/10; bm8 20:15 BP 152 / 106; Pulse 116; Resp 20; Temp 97.8; Pulse Ox 100% on ETT vent; FiO2 30 %; Pain bm8 0/10; 20:30 BP 174 / 106; Pulse 95; Resp 20; Pulse Ox 100% on ETT vent; FiO2 30 %; Pain 0/10; bm8 21:00 BP 155 / 103; Pulse 93; Resp 20; Pulse Ox 100% on ETT vent; FiO2 30 %; Pain 0/10; bm8 21:30 BP 175 / 112; Pulse 96; Resp 20; Temp 97.8; Pulse Ox 98% on ETT vent; FiO2 30 %; Pain bm8 0/10; 22:00 BP 155 / 97; Pulse 82; Resp 20; Temp 98; Pulse Ox 100% on ETT vent; FiO2 30 %; bm8 22:30 BP 157 / 97; Pulse 84; Resp 20; Temp 98; Pulse Ox 100% on ETT vent; FiO2 30 %; bm8 22:47 BP 154 / 97; Pulse 83; Resp 20; Temp 98.7; Pulse Ox 100% ; Pain 0/10; bm8 22:50 BP 155 / 94; Pulse 82; Resp 20; Temp 98; Pulse Ox 100% ; Pain 0/10; bm8 18:30 Body Mass Index 34.93 (130.18 kg, 193.04 cm) hb 18:30 Pain Scale: Non-Verbal hb 20:00 Pain Scale: Adult bm8 20:15 Pain Scale: Adult bm8 20:30 Pain Scale: Adult bm8 21:00 Pain Scale: Adult bm8 21:30 Pain Scale: Adult bm8 22:47 Pain Scale: Adult bm8 22:50 Pain Scale: Adult bm8 Pablo Coma Score: 19:53 Eye Response: none(1). Motor Response: none(1). Verbal Response: none(1). Total: 3. bm8 22:47 Eye Response: none(1). Modifying Factors: Intubated. Motor Response: none(1). Verbal bm8 Response: none(1). Total: 3. ED Course: 18:18 Patient arrived in ED. sb4 18:26 [facility] kb 18:26 Cyn Mendoza MD is Attending Physician. kb 18:30 Patient has correct armband on for positive identification. Bed in low position. Call me1 light in reach. Side rails up X2. Seizure precautions initiated. Provided Education on: POC. verbalized understanding. . 18:30 Client placed on continuous cardiac and pulse oximetry monitoring. NIBP monitoring me1 applied. color television console monitor on. Pulse ox on. NIBP on. 18:30 No provider procedures requiring assistance completed. me1 18:32 Triage completed. hb 18:37 Shila Barlow, RN is Primary Nurse. me1 18:38 Arm band placed on. hb 19:09 Missed attempt(s): 20 gauge in right antecubital area. me1 19:14 Initial lab(s) drawn, by me, sent to lab. Inserted saline lock: 20 gauge in left EJ, me1 using aseptic technique. Blood collected. 19:38 CT Head Brain wo Cont In Process Unspecified. EDMS 19:41 Attending Physician role handed off by Cyn Mendoza MD sp4 19:41 Noel Miranda MD is Attending Physician. sp4 19:53 Door closed. Noise minimized. Visitors limited. Warm blanket given. Verbal reassurance bm8 given. Head of bed lowered. One-on-one care X 120 minutes. 19:53 Assist ventilation with ventilator. bm8 20:00 Assisted provider with central line placement. Set up central line tray. Triple lumen bm8 line placed in right subclavian. Line placed by Noel Miranda MD Placement verified by CXR, blood return, Dressed with Tape, Tegaderm, Blood was collected. Patient tolerated well. Before procedure, did Practitioner(s) obtain informed consent? Yes. Patient \T\ family education about procedure, CLABSI prevention and S/S of infection? Yes. Time-out/Briefing performed prior to start of procedure? Yes. Was handwashing/sanitizing done immediately prior to procedure? Yes. Was patient positioned to in a way to prevent air embolism? Yes. Was procedure site sterilized? Yes, with chlorhexidine. Was the site allowed to dry? Yes. Was local anesthetic and/or sedation utilized? Yes. During the procedure, did the Practitioner(s) maintain a sterile field? Yes. Were unused ports clamped during insertion? Was a 2nd qualified MD obtained after 3 unsuccessful insertion attempts? No. Was blood aspirated from each lumen? Yes. After the procedure, did the Practitioner(s) clean the site and apply a sterile dressing? Yes. 20:06 Daley cath inserted, using sterile technique, 16 Fr., by me, balloon inflated, to ha1 gravity drainage. 21:02 Chest Single View XRAY In Process Unspecified. EDMS :2043 called [facility] for Transfer talked to Maria G. . sp 21:[address] Chantelle Delgadillo accepted pt to [facility] [address] admin approval Unit sp 8A room 805 report number [phone] fax [phone]. 23:40 Abdomen 1 View XRAY In Process Unspecified. EDMS 01/22 00:12 Patient transferred, IV remains in place. bm8 Administered Medications: 01/21 19:15 Drug: NS 0.9% IV 1000 ml IV at 1000 ml once Route: IV; Rate: 1000 ml; Site: left me1 jugular; 20:45 Follow up: Response: No adverse reaction; IV Status: Completed infusion; IV Intake: bm8 1000ml 19:20 Drug: Ativan IVP 2 mg IVP once Route: IVP; Site: left jugular; me1 19:30 Follow up: Response: No adverse reaction me1 19:46 Drug: Ativan IVP 2 mg IVP once Route: IVP; Site: left jugular; me1 20:16 Follow up: Response: No adverse reaction me1 19:46 CANCELLED (Duplicate Order): ativan2 mg IVP once me1 19:53 Drug: Propofol IVP 100 mg IVP once; Document RASS score. Route: IVP; Site: left jugular;bm8 23:07 Follow up: Response: No adverse reaction bm8 19:53 Drug: Rocuronium IVP 100 mg IVP once Route: IVP; Site: left jugular; bm8 23:07 Follow up: Response: No adverse reaction bm8 20:00 Drug: Propofol IV 5 mcg/kg/min IV at calculated rate See Administration Instructions; bm8 Standard concentration 1000 mg / 100 mL; Recommended max rate 50 mcg/kg/min; Titrate 2 mcg/kg/min every 5 minutes to achieve goal (see titration policy); Goal parameter RASS score 0 to -2 Route: IV; Rate: calculated rate; Site: Other; 23:07 Follow up: Response: No adverse reaction; IV Status: Infusion continued upon transfer bm8 21:00 Drug: NS 0.9% IV 1000 ml IV at 125 ml/hr continuous Route: IV; Rate: 125 ml/hr; Site: [facility] Other; 23:06 Follow up: Response: No adverse reaction; IV Status: Infusion continued upon transfer bm8 21:40 Drug: fentaNYL (PF) IV 25 mcg/kg/h IV at calculated rate See Administration bm8 Instructions; (Standard concentration 500 mcg / 50 mL NS [10 mcg / 1 mL); Recommended max rate 4 mcg/kg/hr; Titrate 0.25 mcg/kg/hr as often as every 3 minutes to achieve goal (see titration policy); Goal parameter RASS score 0 to -2 Route: IV; Rate: calculated rate; Site: Other; 23:06 Follow up: Response: No adverse reaction; IV Status: Infusion continued upon transfer bm8 22:46 Drug: Valproic Acid IV 2000 mg IV at calculated rate once over 60 mins; (mix in 100 mL bm8 NS) Route: IV; Rate: calculated rate; Infused Over: 60 mins; Site: left jugular; 23:06 Follow up: Response: No adverse reaction; IV Status: Infusion continued upon transfer bm8 Medication: 18:30 VIS not applicable for this client. me1 Intake: 20:45 IV: 1000ml; Total: 1000ml. bm8 Ventilator: 22:47 Fi02: 30%; Rate: 20min; T.V.: 500ml; Peep: 5cm; ET tube: 8.0 fr (Oral); bm8 Outcome: 20:42 ER care complete, transfer ordered by . apryl 01/22 00:03 Patient left the ED. 00:12 Transferred by ground EMS to [facility], Transfer form bm8 completed. X-rays sent w/ patient. 00:12 Condition: stable 00:12 Instructed on the need for transfer, Signatures: Dispatcher [employer] EDPalak Neville, SPORTS CLERK-C SPORTS CLERK-Cherelle Louie Shelby, RN RN ss Joan Cruz RN RN Sarita Francis RN RN ha1 Itzel Camacho, PAMelanie PANoel Hernandez MD MD sp4 Shila Barlow RN RN me1 Len Aguiar RN RN bm8 Corrections: (The following items were deleted from the chart) 01/21 20:16 18:30 Chief complaint: EMS states: Seizure activity that started at approx 1700. me1 reports he fell backwards from standing position. 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 BP 191/107, HR 91, SpO2 98% on 2LNC. hb 21:42 21:02 4 called [facility] for Transfer talked to . sp sp 21:42 21:41 Propofol IVP 100 mg IVP in left jugular bm8 bm8 21:47 19:53 Assisted provider with central line placement. bm8 bm8
--- NOTE | 2024-01-22 20:42 | EDPHYS ---
Physician Documentation [facility] Name: Mike Francis III Age: 48 yrs Sex: Male : 1975 Arrival Date: 01/22/2024 Time: 18:05 Bed 4 Private MD: ED Physician Noel Miranda HPI: 01/21 18:27 This 48 yrs old Black Male presents to ER via Unassigned with complaints of seizure. 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 states pt went to the restroom and had a seizure, falling to the ground. She is concerned about his hitting his head. States last seizure was on 12/02/23, last seen by neurologist on 11/25/23. states all of pt's doctors are at [facility]. . Historical: - Allergies: 18:32 Keppra; hb 18:32 SHELLFISH; hb - Home Meds: 18:32 amlodipine 10 mg tab 1 tab once daily [Active]; atorvastatin oral [Active]; carvedilol hb 25 mg Oral tab 1 tab 2 times per day [Active]; divalproex 1750 mg Oral tablet twice a day [Active]; ferrous sulfate 325 mg (65 mg iron) Oral tablet daily [Active]; fluticasone propionate inhalation [Active]; gabapentin 300 mg Oral capsule 3 times per day [Active]; glyburide 5 mg Oral tablet 2 times per day [Active]; hydralazine 25 mg Oral tablet 4 times per day [Active]; hydroxyzine HCl 10 mg Oral tablet as needed for Anxiety [Active]; lacosamide oral [Active]; lisinopril 40 mg Oral tablet daily [Active]; metformin 1 Oral tablet 2 times per day [Active]; multivitamin Oral tablet daily [Active]; pantoprazole oral [Active]; Potassium Chloride Oral [Active]; Potassium Chloride Oral [Active]; risperidone 1 mg/mL Oral solution 2 times per day [Active]; - PMHx: 18:32 brain lesions/swelling of the brain; Diabetes - NIDDM; High Cholesterol; Hypertension; hb Mild Heart Attack x 2; 18:35 CVA; CAD; Autoimmune Encephalitis; DVT; Depression; Chronic Pain; Seizure; TBI; hb - PSHx: 18:32 Appendectomy; brain surgery (January 2022); hb - Immunization history:: Adult Immunizations up to date. - Infectious Disease History:: Denies. - Social history:: Smoking status: Patient denies any tobacco usage or history of. ROS: 18:30 Constitutional: As per HPI kb Exam: 18:27 Head/Face: Normocephalic, atraumatic. ENT: Moist Mucous membranes Cardiovascular: kb Regular rate Respiratory: Respirations even and unlabored. No increased work of breathing. Talking in full sentences Abdomen/GI: Soft, non-tender. No distention Skin: Warm, dry with normal turgor. Normal color. 18:27 Constitutional: The patient appears well developed, well nourished, 18:27 Neuro: Orientation: unable to test, Mentation: responsive to voice Pt opens eyes and looks at me when I speak his name or ask questions. Pt answers yes and no questions. , Vital Signs: 18:30 BP 169 / 101; Pulse 84; Resp 18; Temp 98.7(A); Pulse Ox 98% on R/A; Weight 130.18 kg; hb Height 6 ft. 4 in. ; Pain 0/10; 18:30 BP 166 / 103; Pulse 91; Resp 22; Pulse Ox 97% on R/A; me1 19:00 BP 176 / 100; Pulse 83; Resp 16; Pulse Ox 95% on R/A; me1 19:30 BP 172 / 102; Pulse 91; Resp 19; Pulse Ox 97% on R/A; me1 20:00 BP 177 / 120; Pulse 119; Resp 20; Temp 97.8; Pulse Ox 100% ; Pain 0/10; bm8 20:15 BP 152 / 106; Pulse 116; Resp 20; Temp 97.8; Pulse Ox 100% on ETT vent; FiO2 30 %; Pain bm8 0/10; 20:30 BP 174 / 106; Pulse 95; Resp 20; Pulse Ox 100% on ETT vent; FiO2 30 %; Pain 0/10; bm8 21:00 BP 155 / 103; Pulse 93; Resp 20; Pulse Ox 100% on ETT vent; FiO2 30 %; Pain 0/10; bm8 21:30 BP 175 / 112; Pulse 96; Resp 20; Temp 97.8; Pulse Ox 98% on ETT vent; FiO2 30 %; Pain bm8 0/10; 22:00 BP 155 / 97; Pulse 82; Resp 20; Temp 98; Pulse Ox 100% on ETT vent; FiO2 30 %; bm8 22:30 BP 157 / 97; Pulse 84; Resp 20; Temp 98; Pulse Ox 100% on ETT vent; FiO2 30 %; bm8 22:47 BP 154 / 97; Pulse 83; Resp 20; Temp 98.7; Pulse Ox 100% ; Pain 0/10; bm8 22:50 BP 155 / 94; Pulse 82; Resp 20; Temp 98; Pulse Ox 100% ; Pain 0/10; bm8 18:30 Body Mass Index 34.93 (130.18 kg, 193.04 cm) hb 18:30 Pain Scale: Non-Verbal hb 20:00 Pain Scale: Adult bm8 20:15 Pain Scale: Adult bm8 20:30 Pain Scale: Adult bm8 21:00 Pain Scale: Adult bm8 21:30 Pain Scale: Adult bm8 22:47 Pain Scale: Adult bm8 22:50 Pain Scale: Adult bm8 Pablo Coma Score: 19:53 Eye Response: none(1). Motor Response: none(1). Verbal Response: none(1). Total: 3. bm8 22:47 Eye Response: none(1). Modifying Factors: Intubated. Motor Response: none(1). Verbal bm8 Response: none(1). Total: 3. Ventilator: 22:47 Fi02: 30%; Rate: 20min; T.V.: 500ml; Peep: 5cm; ET tube: 8.0 fr (Oral); bm8 Procedures: 20:47 Intubation: Ventilated with 100% NRB prior to procedure. O2 saturation prior to sp4 procedure was 100 %. Intubated [place] scopic intubation S3 blade using S3 blade with 8.0 mm ETT. was successful on first attempt. Ventilated with Ambu bag. ventilator. Tube secured with ETT chauhan at center of mouth measured 27 cm at lip. Placement verified by CXR, CO2 detector with (+) color change, auscultating bilateral breath sounds, O2 saturation after procedure was 100 %. Patient tolerated well, Definitive airway secured for propofol sedation for status epilepticus. Central Line: the site was prepped with in sterile fashion, Hibiclens prep, a triple lumen catheter was inserted, in the right internal jugular vein, in 1 attempts. placement was verified, by CXR, by blood return, Ultrasound-guided central line, the site was dressed with 4X4s, Tegaderm, using sterile technique, the patient tolerated the procedure, well, Central line placed secondary to exhausted intravenous access. MDM: 18:26 Patient medically screened. kb 18:30 Data reviewed: vital signs, nurses notes. Historians other than the Patient: EMS: [facility]. Spouse/Significant Other: . 19:30 ED course: Pt returned from CT scan having seizure. Ativan 2mg given with no response. kb Dr Miranda consulted and at bedside for evaluation. Dr Miranda recommends intubation and sedation for status epilepticus. . 20:31 ED course: Pt has been moved to bed 4. Dr Miranda at bedside for intubation. . kb 20:43 Differential diagnosis: cardiac arrhythmia, seizure, ICH. Consideration of kb Admission/Observation Escalation of care including admission/observation considered. pt will be transferred. Counseling: I had a detailed discussion with the patient and/or guardian regarding the historical points, exam findings, and any diagnostic results supporting the discharge/admit diagnosis, lab results, radiology results, the need to transfer to another facility, pt will be transferred to [facility] for continuity of care. 20:54 Management of patient was discussed with the following: Dr Hurley, neuro ICU at [facility], [facility] accepts pt for transfer. 01/22 02:03 ED course: EXAM: XR Abdomen, 1 View CLINICAL HISTORY: The patient is 48 years old and sp4 is Male; NG tube placement TECHNIQUE: Frontal supine view of the abdomen/pelvis. COMPARISON: No relevant prior studies available. FINDINGS: GASTROINTESTINAL TRACT: The visualized bowel gas pattern is nonobstructive. Minimal stool is noted. BONES/JOINTS: Unremarkable. No acute fracture. TUBES, LINES AND DEVICES: An enteric tube is present looped within the proximal stomach with the tip at the level of the gastric fundus. IMPRESSION: An enteric tube is present looped within the proximal stomach with the tip at the level of the gastric fundus.. ED course: EXAM DESCRIPTION: RAD - Chest Single View - 01/22/2024 9:00 pm CLINICAL HISTORY: after Right CVL and intubation Chest pain. COMPARISON: FINDINGS: Portable technique limits examination quality. Tip of the endotracheal tube is at the level of the superior aortic arch. Venous catheter is in place on the right with its tip likely in the SVC. No pneumothorax. Small left pleural effusion. . 01/21 18:26 Order name: CBC with Diff; Complete Time: 19:57 kb 01/21 18:26 Order name: CMP; Complete Time: 19:59 kb 01/21 18:26 Order name: Urinalysis w/ reflexes; Complete Time: 20:20 kb 01/21 19:23 Order name: CBC Smear Scan; Complete Time: 19:57 EDMS 01/21 19:41 Order name: Urine Drug Screen; Complete Time: 20:10 sp4 01/21 19:47 Order name: ABG sp4 01/21 19:47 Order name: Lactate w/ 2H reflex if indic.; Complete Time: 22:02 sp4 01/21 22:17 Order name: ABG Arterial Blood Gas; Complete Time: 22:27 EDMS 01/21 18:26 Order name: CT Head Brain wo Cont; Complete Time: 19:49 kb 01/21 20:47 Order name: Chest Single View XRAY; Complete Time: 21:51 sp4 01/21 23:18 Order name: Abdomen 1 View XRAY sp4 01/21 18:26 Order name: IV Start; Complete Time: 19:58 kb 01/21 19:45 Order name: Intubation Setup; Complete Time: 19:58 sp4 01/21 19:47 Order name: Daley; Complete Time: 20:07 sp4 Administered Medications: 01/21 19:15 Drug: NS 0.9% IV 1000 ml IV at 1000 ml once Route: IV; Rate: 1000 ml; Site: left me1 jugular; 20:45 Follow up: Response: No adverse reaction; IV Status: Completed infusion; IV Intake: bm8 1000ml 19:20 Drug: Ativan IVP 2 mg IVP once Route: IVP; Site: left jugular; me1 19:30 Follow up: Response: No adverse reaction me1 19:46 Drug: Ativan IVP 2 mg IVP once Route: IVP; Site: left jugular; me1 20:16 Follow up: Response: No adverse reaction me1 19:46 CANCELLED (Duplicate Order): ativan2 mg IVP once me1 19:53 Drug: Propofol IVP 100 mg IVP once; Document RASS score. Route: IVP; Site: left jugular;8 23:07 Follow up: Response: No adverse reaction 8 19:53 Drug: Rocuronium IVP 100 mg IVP once Route: IVP; Site: left jugular; 8 23:07 Follow up: Response: No adverse reaction [facility] 20:00 Drug: Propofol IV 5 mcg/kg/min IV at calculated rate See Administration Instructions; 8 Standard concentration 1000 mg / 100 mL; Recommended max rate 50 mcg/kg/min; Titrate 2 mcg/kg/min every 5 minutes to achieve goal (see titration policy); Goal parameter RASS score 0 to -2 Route: IV; Rate: calculated rate; Site: Other; 23:07 Follow up: Response: No adverse reaction; IV Status: Infusion continued upon transfer 8 21:00 Drug: NS 0.9% IV 1000 ml IV at 125 ml/hr continuous Route: IV; Rate: 125 ml/hr; Site: [facility] Other; 23:06 Follow up: Response: No adverse reaction; IV Status: Infusion continued upon transfer 8 21:40 Drug: fentaNYL (PF) IV 25 mcg/kg/h IV at calculated rate See Administration 8 Instructions; (Standard concentration 500 mcg / 50 mL NS [10 mcg / 1 mL); Recommended max rate 4 mcg/kg/hr; Titrate 0.25 mcg/kg/hr as often as every 3 minutes to achieve goal (see titration policy); Goal parameter RASS score 0 to -2 Route: IV; Rate: calculated rate; Site: Other; 23:06 Follow up: Response: No adverse reaction; IV Status: Infusion continued upon transfer [facility] 22:46 Drug: Valproic Acid IV 2000 mg IV at calculated rate once over 60 mins; (mix in 100 mL 8 NS) Route: IV; Rate: calculated rate; Infused Over: 60 mins; Site: left jugular; 23:06 Follow up: Response: No adverse reaction; IV Status: Infusion continued upon transfer [facility] Disposition: 20:47 Co-signature as Attending Physician, Noel Miranda MD I agree with the assessment sp4 and plan of care. I reviewed the patient's care provided by Advanced Practice Provider \T\ agree w/ the diagnosis \T\ care plan. I personally saw the pt \T\ performed a substantive portion of the visit, incldng all aspects of the (History/Exam/Medical Decision Making). Disposition Summary: 01/22/24 20:42 Transfer Ordered Notes: Transfer Location: [facility] Reason: Higher level of care kb Condition: Stable kb Problem: an acute exacerbation kb Symptoms: are unchanged kb Accepting Physician: Dr Hurley(01/23/24 00:03) ss Diagnosis - Epilepsy, unspecified, not intractable, with status epilepticus kb Forms: - Medication Reconciliation Form kb - SBAR form kb Critical care time excluding procedures: 01/22 04:48 Critical care time: Bedside Care: 36 minutes, Consultation: 10 minutes, Family sp4 Intervention: 10 minutes. Total time: 56 minutes Signatures: Dispatcher [employer] EDMS Palak Sams, LICENSED NUCLEAR OPERATOR-C LICENSED NUCLEAR OPERATOR-Ckb Ying Lozano, RN RN Joan Cruz, RN RN Noel Miranda MD MD sp4 Shila Barlow RN RN me1 Len Aguiar, RN RN bm8 Corrections: (The following items were deleted from the chart) 01/21 19:46 19:45 Ativan IVP 2 mg IVP once ordered. me1 me1 19:47 19:47 LACTATE+C.LAB.BRZ ordered. EDMS EDMS 20:44 20:43 Differential diagnosis: cardiac arrhythmia, seizure, kb kb 20:54 20:42 dr pink 23:18 23:18 Abdomen 1 View+RAD.RAD.BRZ ordered. EDMS EDMS 01/22 00:03 01/21 20:54 Dr Xavi pink 01/22 04:48 01/21 20:40 Critical care time: Bedside Care: 10 minutes, Consultation: 10 minutes, sp4 Family Intervention: 10 minutes. Total time: 30 minutes kb
[2024-01-22] MEDS ORDERED: NA CHLORIDE 0.9% 50 ML ONE (20:54)
[2024-01-22] MEDS ORDERED: FENTANYL CITR 100 MCG/2 ML ONE (20:54)
--- NOTE | 2024-01-22 21:47 | RAD REPORT ---
EXAM DESCRIPTION: RAD - Chest Single View - 01/22/2024 9:00 pm CLINICAL HISTORY: after Right CVL and intubation Chest pain. COMPARISON: <Comparisons> FINDINGS: Portable technique limits examination quality. Tip of the endotracheal tube is at the level of the superior aortic arch. Venous catheter is in place on the right with its tip likely in the SVC. No pneumothorax. Small left pleural effusion.
[2024-01-22] MEDS ORDERED: VALPROATE NA 500 MG/5 ML INJ IV ONE ×2 (21:58→22:18)
[2024-01-22] MEDS ORDERED: NA CHLORIDE 0.9% 100 ML ONE (21:59)
[2024-01-22 22:16] LABS: Blood Gas Oxyhemoglobin 96.1 % (94-97); Blood O2 Saturation 98.7 % (92-98.5)
[2024-01-22 22:17] LABS: Blood Gas THB 11.7 g/dl (12-18)
[2024-01-22 22:24] VITALS: O2SAT 100
[2024-01-23 00:32] VITALS: BP 155/94; TEMP 98
--- NOTE | 2024-01-23 11:24 | RAD REPORT ---
EXAM DESCRIPTION: RAD - Abdomen Single View - 01/22/2024 11:39 pm CLINICAL HISTORY: The patient is 48 years old and is Male; NG tube placement TECHNIQUE: Frontal supine view of the abdomen/pelvis. COMPARISON: No relevant prior studies available. FINDINGS: GASTROINTESTINAL TRACT: The visualized bowel gas pattern is nonobstructive. Minimal stoo l is noted. BONES/JOINTS: Unremarkable. No acute fracture. TUBES, LINES AND DEVICES: An enteric tube is present looped within the proximal stomach with the tip at the level of the gastric fundus. IMPRESSION: An enteric tube is present looped within the proximal stomach with the tip at the level of the gastric fundus. Electronically signed by: Juana Lackey MD 01/23/2024 12:06 AM CDT RP Due to temporary technical issues with the PACS/Fluency reporting system, reports are being signed by the in house radiologist without review as a courtesy to ensure prompt reporting. The interpreting r adiologist is fully responsible for the content of the report.
== END 2024-01-23 00:03 | disposition short-term general hospital (02) ==
LOC: ER 18:05
PROC: 05HM33Z Insertion of Infusion Device into Right Internal Jugular Vein, Percutaneous Approach (ICD-10-PCS; principal; 2024-01-23)
DX: G40.901 Epilepsy, unspecified, not intractable, with status epilepticus (principal); Z87.820 Personal history of traumatic brain injury; Z88.8 Allergy status to other drugs, medicaments and biological substances; Z91.013 Allergy to seafood
CPT/HCPCS: 85025; 81001; 36415; 83605; 80053; 80307; 70450; 74018; 71045; 82805 ×2; 31500; 51702; 99291; 36600; 94002; 36556; J2704 ×4; J3010; J7030 ×2; 80164

== ENCOUNTER 2024-07-14 22:26 | Emergency (ER) | payer OTHER ==
--- OUTSIDE RECORDS SUMMARY | 2024-07-14 22:40 | XMS REPORT | Continuity of Care Document ---
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 [facility] insulin lispro (HUMALOG KWIKPEN INSULIN) 100 unit/mL pen injector 2023-07 00:00: 00 Yes [id number] INJECT UNDER THE SKIN EVERY EIGHT HOURS PER SLIDING SCALE (151-200 TWO UNITS, 201-250 4U, 251-300 6U, 301-350 8U, 351-100 10U) [facility] donepeziL (ARICEPT) 5 mg tablet 04-13 00:00: 00 Yes [id number] 5mg Take 1 tablet by mouth at bedtime. [facility] mycophenola te mofetil 500 mg tablet 04-13 00:00: 00 06-08 00:00 :00 No [id number] 500mg Take 1 tablet by mouth every 12 (twelve) hours. [facility] predniSONE 50 mg tablet 04-13 00:00: 00 04-13 00:00 :00 No [id number] 25mg Take 0.5 tablets by mouth in the morning. [facility] Blood-Gluco se Sensor (DEXCOM G7 SENSOR) Sari 03-30 00:00: 00 Yes [id number] 1{each} 1 Each by subcutaneo us (via wearable injector) route every 10 (ten) days. Use as directed [facility] Blood-Gluco se Meter,[place] (DEXCOM G7 AUTOTRANSFUSIONIST) Misc 03-29 00:00: 00 Yes [id number] Use as directed [facility] Blood-Gluco se Sensor (DEXCOM G7 SENSOR) Sari 03-29 00:00: 00 03-30 00:00 :00 No [id number] 1{each} 1 Each by subcutaneo us (via wearable injector) route every 10 (ten) days. Use as directed [facility] insulin glargine U-300 conc (TOUJEO MAX U-300 SOLOSTAR) 300 unit/mL (3 mL) InPn 03-27 00:00: 00 Yes [id number] 16U inject 16 Units under the skin at bedtime. take half dose if NPO or if blood glucose 80 - 120 mg/dL, hold if less than 80 [facility] Insulin [place], Disposable, (ULTICARE PEN NEEDLE) 31 gauge x 3/16" Ndle 03-27 00:00: 00 Yes [id number] Use as directed [facility] dapaglifloz in propanediol (FARXIGA) 10 mg tablet 03-27 00:00: 00 Yes [id number] 10mg Take 1 tablet by mouth in the morning. [facility] metFORMIN 1,000 mg tablet 03-27 00:00: 00 04-30 00:00 :00 No [id number] 1000mg Take 1 tablet by mouth in the morning and 1 tablet in the evening. Take with meals. [facility] insulin lispro (HUMALOG KWIKPEN INSULIN) 100 unit/mL pen injector 03-27 00:00: 00 04-30 00:00 :00 No [id number] INJECT UNDER THE SKIN EVERY EIGHT HOURS PER SLIDING SCALE (151-200 TWO UNITS, 201-250 4U, 251-300 6U, 301-350 8U, 351-100 10U) [facility] Blood-Gluco se Sensor (FREESTYLE DEE 3 SENSOR PLUS) Sari 03-27 00:00: 00 03-29 00:00 :00 No [id number] Change Q15 days. Use as directed. [facility] Blood-Gluco se Meter,[place] (FREESTYLE DEE 3 READER) Misc 03-27 00:00: 00 03-29 00:00 :00 No [id number] Use as directed [facility] dapaglifloz in propanediol (FARXIGA) 5 mg tablet 03-27 00:00: 00 03-27 00:00 :00 No [id number] 5mg Take 1 tablet by mouth in the morning. [facility] FARXIGA 5 mg tablet 03-23 00:00: 00 03-27 00:00 :00 No 5mg Take 1 tablet by mouth in the morning. [facility] cenobamate 100 mg Tab 03-14 00:00: 00 05-14 00:00 :00 No [id number] 100mg Take 100 mg by mouth in the morning. [facility] cenobamate 12.5 mg (14)- 25 mg (14) DsPk 03-14 00:00: 00 04-26 04:59 :00 No [id number] Take 12.5 mg by mouth daily for 14 days, THEN 25 mg daily for 14 days, THEN 50 mg daily for 14 days. [facility] HUMALOG KWIKPEN INSULIN 100 unit/mL injection 02-21 00:00: 00 03-27 00:00 :00 No INJECT UNDER THE SKIN EVERY EIGHT HOURS PER SLIDING SCALE (151-200 TWO UNITS, 201-250 4U, 251-300 6U, 301-350 8U, 351-100 10U) [facility] atorvastati n (LIPITOR) tablet 20 mg 02-15 02:00: 00 Yes 20mg [facility] pantoprazol e (PROTONIX) EC tablet 40 mg 02-14 14:00: 00 Yes 40mg 40 mg, Oral, DAILY, First dose on Tue02/15/24 at 0900, Until Discontinu ed, Routine [facility] predniSONE (DELTASONE) tablet 250 mg 02-14 14:00: 00 Yes 250mg 250 mg, Oral, DAILY, First dose on Tue02/15/24 at 0900, Until Discontinu ed, Routine [facility] KCL (KLOR-CON M20) tablet 20 mEq 02-14 14:00: 00 Yes 20meq 20 mEq, Oral, DAILY, First dose on Tue02/15/24 at 0900, Until Discontinu ed [facility] lisinopriL (PRINIVIL,Z ESTRIL) tablet 40 mg 02-14 14:00: 00 Yes 40mg 40 mg, Oral, DAILY, First dose on Tue02/15/24 at 0900, Until Discontinu ed [facility] ferrous sulfate tablet 325 mg 02-14 14:00: 00 Yes 325mg 325 mg, Oral, Q OTHERDAY, First dose on Tue02/15/24 at 0900, Until Discontinu ed, Routine [facility] cetirizine (ZYRTEC) tablet 10 mg 02-14 14:00: 00 Yes 10mg 10 mg, Oral, DAILY, First dose on Tue02/15/24 at 0900, Until Discontinu ed, Routine [facility] aspirin chewable tablet 81 mg 02-14 14:00: 00 Yes 81mg 81 mg, Oral, DAILY, First dose on Tue02/15/24 at 0900, Until Discontinu ed, Routine [facility] amLODIPine (NORVASC) tablet 10 mg 02-14 14:00: 00 Yes 10mg 10 mg, Oral, DAILY, First dose on Tue02/15/24 at 0900, Until Discontinu ed, Routine [facility] Sliding Scale Insulin - Lispro (HumaLOG) 02-14 13:00: 00 Yes [facility] risperiDONE (RISPERDAL) tablet 1 mg 02-14 13:00: 00 Yes 1mg 1 mg, Oral, BID, First dose on Tue02/15/24 at 0800, Until Discontinu ed, Routine [facility] insulin glargine (LANTUS U-100) injection 6 Units 02-14 13:00: 00 Yes 6U 6 Units, Subcutaneo us, BID, First dose on Tue02/15/24 at 0800, Until Discontinu ed, Routine [facility] divalproex ER (DEPAKOTE ER) 24 hr tablet 2,000 mg 02-14 13:00: 00 Yes 2000mg 2,000 mg, Oral, Q12H, First dose on Tue02/15/24 at 0800, Until Discontinu ed, Routine [facility] heparin (porcine) injection 5,000 Units 02-14 11:00: 00 Yes 5000U 5,000 Units, Subcutaneo us, Q8H, First dose on Tue02/15/24 at 0600, Until Discontinu ed, Routine [facility] prednisoLON E acetate (PRED-FORTE ) 1 % ophthalmic suspension drops 1 Drop 02-14 07:00: 00 Yes 1[drp] 1 Drop, Left Eye, Q2H, First dose on Tue02/15/24 at 0200, Until Discontinu ed, Routine [facility] primidone (MYSOLINE) tablet 25 mg 02-14 06:45: 00 Yes 25mg 25 mg, Oral, QPM AT 2000, First dose on Tue02/15/24 at 0145, Until Discontinu ed, Routine [facility] NaCl 0.9% (NS) IV infusion 1,000 mL 02-14 06:45: 00 Yes 1000mL at 42 mL/hr, IV Infusion, CONTINUOUS , Starting on Tue02/15/24 at 0145, Until Discontinu ed, Routine [facility] glucagon (GLUCAGEN DIAGNOSTIC KIT) injection 1 mg 02-14 06:38: 51 Yes 1mg [facility] dextrose 50 % in water (D50W) injection 25 mL 02-14 06:38: 51 Yes 25mL [facility] acetaminoph en (TYLENOL) tablet 650 mg 02-14 06:37: 21 Yes 650mg [facility] docusate (COLACE) capsule 100 mg 02-14 06:37: 21 Yes 100mg [facility] carvediloL 12.5 mg tablet 02-14 00:00: 00 Yes [id number] 37.5mg Take 3 tablets by mouth in the morning and 3 tablets in the evening. Take with meals. [facility] divalproex ER 500 mg 24 hr tablet 02-14 00:00: 00 05-14 00:00 :00 No [id number] 2000mg Take 4 tablets by mouth every 12 (twelve) hours. [facility] primidone 50 mg tablet 02-14 00:00: 00 05-14 00:00 :00 No [id number] 25mg Take 0.5 tablets by mouth every evening. [facility] midazolam (NAYZILAM) 5 mg/spray (0.1 mL) [place] 02-14 00:00: 00 03-14 00:00 :00 No [id number] 1{spray } Use 1 [place] in each nostril every 6 (six) hours as needed (seizure). [facility] artificial tears (hypromello se) (GENTEAL TEARS SEVERE GEL) 0.3 % ophthalmic gel 1 Drop 02-13 02:00: 00 Yes 1[drp] 1 Drop, Both Eyes, QHS, First dose on Tue02/13/24 at 2100, Until Discontinu ed, Routine [facility] insulin glargine (LANTUS U-100) injection 8 Units 02-13 01:00: 00 Yes 8U 8 Units, Subcutaneo us, BID, First dose (after last modificati on) on Tue02/13/24 at 2000, Until Discontinu ed, HENRY [facility] aspirin 81 mg chewable tablet 02-13 00:00: 00 Yes [id number] 81mg Take 1 tablet by mouth in the morning. [facility] cetirizine 10 mg tablet 02-13 00:00: 00 Yes [id number] 10mg Take 1 tablet by mouth in the morning. [facility] predniSONE 50 mg tablet 02-13 00:00: 00 04-13 00:00 :00 No [id number] 250mg Take 5 tablets by mouth in the morning. [facility] insulin lispro (human) (HumaLOG U-100) injection 8 Units 02-12 22:00: 00 Yes 8U 8 Units, Subcutaneo us, TID MEALS, First dose (after last modificati on) on Tue02/13/24 at 1700, Until Discontinu ed, Routine [facility] insulin glargine (LANTUS U-100) injection 14 Units 02-12 01:00: 00 02-12 20:12 :52 No 14U 14 Units, Subcutaneo us, BID, First dose (after last modificati on) on Tue02/12/24 at 2000, Until Discontinu ed, HENRY [facility] prednisoLON E acetate 1 % ophthalmic suspension drops 02-12 00:00: 00 Yes [id number] 1[drp] Place 1 Drop in left eye every 2 (two) hours. [facility] Lacosamide 200 mg tablet 02-12 00:00: 00 05-14 00:00 :00 No [id number] 200mg Take 1 tablet by mouth in the morning and 1 tablet in the evening. [facility] Insulin Syringe-Nee dle U-100 (ULTRA FINE INSULIN) 1 mL 30 gauge x 1/2" Syrg 02-12 00:00: 00 03-27 00:00 :00 No [id number] Use as directed to inject humalog (2 times daily) and lantus (2 times daily). [facility] insulin glargine 100 unit/mL injection 02-12 00:00: 00 03-27 00:00 :00 No [id number] 8U inject 8 Units under the skin in the morning and 8 Units in the evening. DISCARD UNUSED PORTION AFTER 28 DAYS. [facility] insulin lispro, human, 100 unit/mL injection 02-12 00:00: 00 03-27 00:00 :00 No [id number] 8U inject 8 Units under the skin in the morning and 8 Units at noon and 8 Units in the evening. inject with meals. DISCARD UNUSED PORTION AFTER 28 DAYS. [facility] Insulin Syringe-Nee dle U-100 0.5 mL 31 gauge x 5/16" Syrg 02-12 00:00: 00 03-27 00:00 :00 No [id number] Use as directed [facility] valACYclovi r 1 gram tablet 02-12 00:00: 00 02-19 04:59 :00 No [id number] 1g Take 1 tablet by mouth in the morning and 1 tablet at noon and 1 tablet in the evening. Do all this for 6 days. [facility] carvediloL 12.5 mg tablet 02-12 00:00: 00 02-14 00:00 :00 No [id number] 37.5mg Take 3 tablets by mouth in the morning and 3 tablets in the evening. Take with meals. [facility] Glucagon (GLUCAGON EMERGENCY KIT, HUMAN,) injection 02-12 00:00: 00 02-14 00:00 :00 No [id number] 1mg Inject 1 mg intravenou sly once now for 1 dose. [facility] cetirizine (ZYRTEC) tablet 10 mg 02-11 19:15: 00 Yes 10mg 10 mg, Oral, DAILY, First dose on 02/12/24 at 1415, Until Discontinu ed, Routine [facility] artificial tears(hypro mellose) (ISOPTO-TEA RS) 0.5 % ophthalmic drops 1 Drop 02-11 19:00: 00 Yes 1[drp] 1 Drop, Both Eyes, TID, First dose on 02/12/24 at 1400, Until Discontinu ed, Routine [facility] insulin lispro (human) (HumaLOG U-100) injection 14 Units 02-11 17:00: 00 02-12 20:12 :52 No 14U 14 Units, Subcutaneo us, TID MEALS, First dose (after last modificati on) on 02/12/24 at 1200, Until Discontinu ed, Routine [facility] insulin glargine (LANTUS U-100) injection 14 Units 02-11 02:00: 00 02-11 02:28 :00 No 14U 14 Units, Subcutaneo us, ONCE, 1 dose, On 02/11/24 at 2100, Routine [facility] insulin lispro (human) (HumaLOG U-100) injection 20 Units 02-10 22:00: 00 02-10 22:56 :22 No 20U 20 Units, Subcutaneo us, TID MEALS, First dose (after last modificati on) on 02/11/24 at 1700, Until Discontinu ed, Routine [facility] insulin lispro (human) (HumaLOG U-100) injection 22 Units 02-10 17:00: 00 02-10 16:59 :21 No 22U 22 Units, Subcutaneo us, TID MEALS, First dose (after last modificati on) on 02/11/24 at 1200, Until Discontinu ed, Routine [facility] NaCl 0.9% (NS) injection 10 mL 02-10 11:45: 48 Yes 10mL 10 mL, Slow IV Push, PRN, Starting on 02/11/24 at 0645, Until Discontinu ed, Routine, line maintenanc e [facility] lidocaine 1% (PF) (XYLOCAINE) injection 5 mL 02-10 11:45: 48 Yes 5mL 5 mL, Subcutaneo us, PRN, 1 dose, Starting on 02/11/24 at 0645, Until Discontinu ed, Routine, Local anesthesia [facility] insulin glargine (LANTUS U-100) injection 30 Units 02-08 01:00: 00 02-10 16:04 :57 No 30U 30 Units, Subcutaneo us, BID, First dose (after last modificati on) on Tue02/08/24 at 2000, Until Discontinu ed, HENRY [facility] insulin lispro (human) (HumaLOG U-100) injection 30 Units 02-07 22:00: 00 02-10 16:04 :57 No 30U 30 Units, Subcutaneo us, TID MEALS, First dose (after last modificati on) on Tue02/08/24 at 1700, Until Discontinu ed, Routine [facility] acetaminoph en (TYLENOL) tablet 500 mg 02-07 14:12: 05 Yes 500mg 500 mg, Oral, Q6HPRN, Starting on Tue02/08/24 at 0912, Until Discontinu ed, Routine, Pain (scale 4-6) [facility] predniSONE (DELTASONE) tablet 250 mg 02-07 14:00: 00 Yes 250mg 250 mg, Oral, DAILY, First dose on Tue02/08/24 at 0900, Until Discontinu ed, Routine [facility] erythromyci n (ILOTYCIN) 5 mg/gram (0.5 %) ophthalmic ointment 0.5 Inch 02-07 02:00: 00 02-12 02:50 :00 No .5[in_u s] 0.5 Inch, Left Eye, QHS, 6 doses, First dose (after last modificati on) on Tue02/07/24 at 2100, Last dose on Tue02/12/24 at 2100, Routine, To eyelid incision [facility] prednisoLON E 15 mg/5 mL solution 250 mg 02-06 14:00: 00 02-06 21:38 :15 No 250mg 250 mg, Oral, DAILY, First dose on Tue02/07/24 at 0900, Until Discontinu ed, Routine [facility] insulin glargine (LANTUS U-100) injection 44 Units 02-06 01:00: 00 02-07 19:57 :55 No 44U 44 Units, Subcutaneo us, BID, First dose (after last modificati on) on Tue02/06/24 at 2000, Until Discontinu ed, HENRY [facility] insulin lispro (human) (HumaLOG U-100) injection 29 Units 02-05 22:00: 00 02-07 19:57 :55 No 29U 29 Units, Subcutaneo us, TID MEALS, First dose (after last modificati on) on Tue02/06/24 at 1700, Until Discontinu ed, Routine [facility] Sliding Scale Insulin - Lispro (HumaLOG) 02-05 21:00: 00 02-07 21:49 :32 No Subcutaneo us, Q4H, First dose (after last modificati on) on Tue02/06/24 at 1600, Until Discontinu ed, Routine [facility] insulin glargine (LANTUS U-100) injection 40 Units 02-05 14:00: 00 02-05 19:25 :17 No 40U 40 Units, Subcutaneo us, DAILY, First dose (after last modificati on) on Tue02/06/24 at 0900, [facility] 1 g 02-05 13:00: 00 02-19 12:59 :00 No 1000mg 1 g (1,000 mg), Oral, TID, 42 doses, First dose (after last modificati on) on Tue02/06/24 at 0800, Last dose on Tue02/19/24 at 2000, [facility] divalproex ER (DEPAKOTE ER) 24 hr tablet 500 mg 02-04 19:00: 00 Yes 500mg 500 mg, Oral, TID, First dose (after last modificati on) on Tue02/05/24 at 1400, Until Discontinu ed, Routine [facility] insulin lispro (human) (HumaLOG U-100) injection 20 Units 02-04 17:00: 00 02-05 19:25 :17 No 20U 20 Units, Subcutaneo us, TID MEALS, First dose (after last modificati on) on 7/14/24 at 1200, Until Discontinu ed, Routine [facility] insulin glargine (LANTUS U-100) injection 13 Units 02-04 16:45: 00 02-04 17:34 :00 No 13U 13 Units, Subcutaneo us, ONCE, 1 dose, On 02/05/24 at 1145, [facility] insulin glargine (LANTUS U-100) injection 27 Units 02-04 14:00: 00 02-04 15:59 :05 No 27U 27 Units, Subcutaneo us, DAILY, First dose (after last modificati on) on 02/05/24 at 0900, Until Discontinu ed, [facility] insulin lispro (human) (HumaLOG U-100) injection 13 Units 02-04 13:00: 00 02-04 15:59 :05 No 13U 13 Units, Subcutaneo us, TID MEALS, First dose (after last modificati on) on 02/05/24 at 0800, Until Discontinu ed, Routine [facility] Sliding Scale Insulin - Lispro (HumaLOG) 02-04 01:00: 00 02-04 15:59 :05 No Subcutaneo us, Q3H, First dose (after last modificati on) on 02/04/24 at 2000, Until Discontinu ed, Routine [facility] insulin NPH (HUMULIN N) injection 22 Units 02-04 01:00: 00 02-04 01:11 :00 No 22U 22 Units, Subcutaneo us, Q24H, 1 dose, First dose (after last modificati on) on 02/04/24 at 2000, [facility] insulin lispro (human) (HumaLOG U-100) injection 6 Units 02-03 23:15: 00 02-03 23:17 :00 No 6U 6 Units, Subcutaneo us, ONCE, 1 dose, On [facility] 02/04/24 at 1815, [facility] insulin NPH (HUMULIN N) injection 10 Units 02-03 23:00: 00 02-04 00:05 :14 No 10U 10 Units, Subcutaneo us, Q6H, First dose on Tue02/04/24 at 1800, Until Discontinu ed, HENRY [facility] glucagon (GLUCAGEN DIAGNOSTIC KIT) injection 1 mg 02-03 21:08: 21 Yes 1mg 1 mg, Intramuscu lar, PRN, Starting on 02/04/24 at 1608, Until Discontinu ed, HENRY, Blood Glucose < or = 70 mg/dL and patient is NPO, unable to swallow or has mental changes. [facility] dextrose 50 % in water (D50W) injection 25 mL 02-03 21:08: 21 Yes 25mL 25 mL, Slow IV Push, PRN, Starting on 02/04/24 at 1608, Until Discontinu ed, HENRY, Blood Glucose < or = 70 mg/dL and patient is NPO, unable to swallow or has mental status changes. [facility] erythromyci n (ILOTYCIN) 5 mg/gram (0.5 %) ophthalmic ointment 0.5 Inch 02-03 02:00: 00 02-06 12:04 :40 No .5[in_u s] 0.5 Inch, Left Eye, QHS, First dose on Tue02/03/24 at 2100, Until Discontinu ed, Routine, To eyelid incision [facility] lacosamide (VIMPAT) tablet 200 mg 02-03 01:00: 00 Yes 200mg 200 mg, Oral, BID, First dose (after last modificati on) on Tue02/03/24 at 2000, Until Discontinu ed, Routine [facility] methylpredn isolone sod succ (SOLU-MEDRO L) injection 125 mg 02-02 18:30: 00 02-06 11:38 :52 No 125mg 125 mg, Intravenou s, Q6H, First dose on Tue02/03/24 at 1330, Until Discontinu ed, 2 mL [facility] lactated ringers IV infusion 1,000 mL 02-02 14:00: 00 Yes 1000mL at 75 mL/hr, 1,000 mL, IV Infusion, CONTINUOUS , Starting on Tue02/03/24 at 0900, Until Discontinu ed, Routine, PACU [facility] FENTanyl PF (SUBLIMAZE (PF)) injection 25 mcg 02-02 13:49: 48 Yes 25ug 25 mcg, Slow IV Push, Q5MIN PRN, 4 doses, Starting on Tue02/03/24 at 0849, Until Discontinu ed, Routine, Pain (scale 4-6), PACU [facility] ondansetron (ZOFRAN (PF)) injection 4 mg 02-02 13:49: 48 Yes 4mg 4 mg, Slow IV Push, PRN, 1 dose, Starting on Tue02/03/24 at 0849, Until Discontinu ed, Routine, Nausea and Vomiting (N/V), PACU [facility] acetaminoph en-codeine (TYLENOL #3) 300-30 mg tablet 1 tablet 02-02 13:49: 48 02-03 01:33 :00 No 1{tbl} 1 tablet, Oral, PRN, 1 dose, Starting on Tue02/03/24 at 0849, Until Tue02/03/24 at 2033, Routine, Pain (scale 1-3), PACU [facility] bupivacaine -epinephrin e-pf (SENSORCAIN E W/EPINEPHRI NE) 0.5 %-1:200,000 20 mL, lidocaine-e pinephrine (XYLOCAINE W/EPINEPHRI NE) 2 %-1:200,000 20 mL, Hyaluronida se, Human Recomb. (HYLENEX) 150 Units 02-02 12:57: 00 02-02 14:02 :50 No PRN, Starting on Tue02/03/24 at 0757, Intra-op [facility] povidone-io dine (BETADINE) 5 % ophthalmic drops 02-02 12:57: 00 02-02 14:02 :50 No PRN, Starting on Tue02/03/24 at 0757, Until Tue02/03/24 at 0902, Routine, [facility] salt soln no.2 irrig. (BSS) ophthalmic solution 02-02 12:56: 00 02-02 14:02 :50 No PRN, Starting on Tue02/03/24 at 0756, Until Tue02/03/24 at 0902, Routine, Intra-op [facility] bacitracin- polymyxin B oph (POLYSPORIN ) 500-10,000 unit/gram ophthalmic ointment 02-02 12:56: 00 02-02 14:02 :50 No PRN, Starting on Tue02/03/24 at 0756, Until Tue02/03/24 at 0902, Routine, Intra-op [facility] PHENYLephri ne 1000 mcg/10 mL in 0.9% NaCl syringe 02-02 12:49: 00 02-02 13:43 :56 No Intravenou s, ONCE INTRA PROCEDURE, Starting on Tue02/03/24 at 0749, Until Tue02/03/24 at 0843, Routine, Intra-op [facility] glycopyrrol ate (ROBINUL) injection 02-02 12:35: 00 02-02 13:43 :56 No Intravenou s, ONCE INTRA PROCEDURE, Starting on Tue02/03/24 at 0735, Until Tue02/03/24 at 0843, Routine, Intra-op [facility] lactated ringers IV infusion 02-02 12:30: 00 02-02 13:43 :56 No IV Infusion, CONTINUOUS PRN, Starting on Tue02/03/24 at 0730, Until Tue02/03/24 at 0843, Routine, Intra-op [facility] propofoL IV infusion 02-02 12:30: 00 02-02 13:43 :56 No Slow IV Push, ONCE INTRA PROCEDURE, Starting on Tue02/03/24 at 0730, Until Tue02/03/24 at 0843, Routine, Intra-op [facility] lidocaine 1% (XYLOCAINE) 100 mg/10 mL (1 %) injection 02-02 12:30: 00 02-02 13:43 :56 No Slow IV Push, ONCE INTRA PROCEDURE, Starting on Tue02/03/24 at 0730, Until Tue02/03/24 at 0843, Routine, [facility]op [facility] remifentani L (ULTIVA) injection 02-02 12:21: 00 02-02 13:43 :56 No Slow IV Push, ONCE INTRA PROCEDURE, Starting on Tue02/03/24 at 0721, Until Tue02/03/24 at 0843, Routine, Intra-op [facility] midazolam (VERSED) injection 02-02 12:11: 00 02-02 13:43 :56 No IV Push, ONCE INTRA PROCEDURE, Starting on Tue02/03/24 at 0711, Until Tue02/03/24 at 0843, Routine, Intra-op [facility] amLODIPine (NORVASC) tablet 10 mg 02-01 14:00: 00 Yes 10mg 10 mg, Enteral, DAILY, First dose (after last modificati on) on Tue02/02/24 at 0900, Until Discontinu ed, [facility] 3 mg 02-01 02:00: 00 Yes 3mg 3 mg, Oral, QHS, First dose on Tue02/01/24 at 2100, Until Discontinu ed, [facility] atorvast[facility] n (LIPITOR) tablet 20 mg 02-01 02:00: 00 Yes 20mg 20 mg, Oral, QHS, First dose (after last modificati on) on Tue02/01/24 at 2100, Until Discontinu ed, Routine [facility] carvediloL (COREG) tablet 37.5 mg 01-31 22:00: 00 Yes 37.5mg 37.5 mg, Oral, BID MEALS, First dose (after last modificati on) on Tue02/01/24 at 1700, Until Discontinu ed, Routine [facility] cefTAZIDime (FORTAZ) 2.25 mg/ 0.1 mL intravitrea l syringe 01-31 21:15: 00 01-31 22:13 :00 No 2.25mg 2.25 mg, Intravitre al, ONCE, 1 dose, On Tue02/01/24 at 1615, 0.1 mL, Reason for Anti-Infec tive: Empiric Therapy for Suspected Infection, Empiric Therapy Site: Other, Other site: eye, Duration of therapy: Once (ED), Restricted use approved by: DAYAMI POPE [facility] vancomycin 1 mg/ 0.1 mL intravitrea l syringe 01-31 21:15: 00 01-31 22:14 :00 No 1mg 1 mg, Intravitre al, ONCE, 1 dose, On Tue02/01/24 at 1615, 0.1 mL, Reason for Anti-Infec tive: Empiric Therapy for Suspected Infection, Empiric Therapy Site: Other, Other site: eye, Duration of therapy: Once (ED) [facility] voriconazol e (VFEND) 0.1 mg in NaCl 0.9% (NS) 0.1 mL intravitrea l syringe 01-31 21:15: 00 01-31 22:14 :00 No .1mg 0.1 mg, Intravitre al, ONCE, 1 dose, On Tue02/01/24 at 1615, 0.1 mL, Reason for Anti-Infec tive: Empiric Therapy for Suspected Infection, Empiric Therapy Site: Other, Other site: eye, Duration of therapy: Once (ED), Restricted use approved by: ARYAN GALLEGO [facility] iopamidol (ISOVUE 370-500 mL) injection 80 mL 01-31 15:28: 00 01-31 15:28 :00 No [id number] 80mL 80 mL, Intravenou s, ONCE, 1 dose, On Tue02/01/24 at 1045, Routine [facility] aspirin chewable tablet 81 mg 01-31 15:15: 00 Yes 81mg 81 mg, Oral, DAILY, First dose on Tue02/01/24 at 1015, Until Discontinu ed, Routine [facility] doxycycline hyclate (Vibramycin ) capsule 100 mg 01-30 23:00: 00 02-04 11:03 :00 No 100mg 100 mg, Oral, Q12HA2, 10 doses, First dose on Tue01/31/24 at 1800, Last dose on Tue02/05/24 at 0600, HENRY, Reason for Anti-Infec tive: Empiric Therapy for Suspected Infection, Empiric Therapy Site: Other, Other site: ophthalmic , Duration of therapy: 5 days [facility] levoFLOXaci n (LEVAQUIN) tablet 750 mg 01-30 23:00: 00 02-03 23:16 :00 No 750mg 750 mg, Oral, Q24H ABX, 5 doses, First dose on Tue01/31/24 at 1800, Last dose on Tue02/04/24 at 1800, HENRY, Reason for Anti-Infec tive: Empiric Therapy for Suspected Infection, Empiric Therapy Site: Other, Other site: ophthalmic , Duration of therapy: 5 days [facility] ceFEPIme (MAXIPIME) 2,000 mg in NaCl 0.9% (NS) 100 mL MINI-BAG 01-30 05:00: 00 01-30 21:56 :38 No 2000mg 2,000 mg, IV Piggyback, Q8H ABX, 15 doses, First dose on Tue01/31/24 at 0000, Last dose on Tue02/04/24 at 1600, Administer over 4 Hours, 100 mL, Reason for Anti-Infec tive: Empiric Therapy for Suspected Infection, 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, Duration of therapy: 5 days [facility] insulin glargine (LANTUS U-100) injection 9 Units 01-30 02:00: 00 02-03 22:15 :49 No 9U 9 Units, Subcutaneo us, QHS, First dose on Tue01/30/24 at 2100, Until Discontinu ed, Routine [facility] micafungin (MYCAMINE) 100 mg in NaCl 0.9% (NS) 100 mL MINI-BAG 01-29 21:30: 00 01-30 21:56 :38 No 100mg 100 mg, IV Piggyback, Q24H ABX, 5 doses, First dose on Tue01/30/24 at 1630, Last dose on Tue02/03/24 at 1630, Administer over 60 Minutes, 100 mL, Restricted use approved by: ARYAN GALLEGO, Reason for Anti-Infec tive: Empiric Therapy for Suspected Infection, 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, Duration of therapy: 5 days [facility] ceFEPIme (MAXIPIME) 2,000 mg in NaCl 0.9% (NS) 100 mL MINI-BAG 01-29 21:15: 00 01-29 21:15 :00 No 2000mg 2,000 mg, IV Piggyback, ONCE, 1 dose, On Tue01/30/24 at 1615, Administer over 30 Minutes, 100 mL, Reason for Anti-Infec tive: Empiric Therapy for Suspected Infection, 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, Duration of therapy: 5 days [facility] vancomycin (VANCOCIN) 1,500 mg in NaCl 0.9% (NS) 500 mL VIAL-MATE IV piggyback 01-29 21:00: 00 01-30 21:56 :38 No 15mg/kg 1,500 mg (rounded from 1,978.5 mg = 15 mg/kg ?131.9 kg), IV Piggyback, Q12H ABX, 10 doses, First dose on Tue01/30/24 at 1600, Last dose on Tue02/04/24 at 0400, Administer over 90 Minutes, 500 mL, Reason for Anti-Infec tive: Empiric Therapy for Suspected Infection, 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, Duration of therapy: 5 days [facility] insulin lispro (human) (HumaLOG U-100) injection 2 Units 01-29 17:00: 00 02-03 22:15 :49 No 2U 2 Units, Subcutaneo us, TID MEALS, First dose on Tue01/30/24 at 1200, Until Discontinu ed, Routine [facility] cyclopentol ate (CYCLOGYL) 1 % ophthalmic drops 1 Drop 01-29 01:00: 00 02-06 16:17 :15 No 1[drp] 1 Drop, Left Eye, TID, First dose on Tue01/29/24 at 2000, Until Discontinu ed, Routine [facility] gadobenate dimeglumine (MULTIHANCE -20 mL) injection 26.38 mL 01-29 01:00: 00 01-29 01:00 :00 No [id number] .2mL/kg 26.38 mL (0.2 mL/kg ?131.9 kg), Intravenou s, ONCE, 1 dose, On Tue01/29/24 at 2000, Routine [facility] acyclovir (ZOVIRAX) 850 mg in NaCl 0.9% (NS) 250 mL IV infusion 01-29 00:00: 00 01-31 16:14 :38 No 10mg/kg 850 mg (rounded from 845 mg = 10 mg/kg ?84.5 kg [place] weight), IV Infusion, Q8H ABX, 21 doses, First dose on Tue01/29/24 at 1900, Last dose on Tue02/05/24 at 1100, Administer over 60 Minutes, 250 mL [facility] prednisoLON E acetate (PRED-FORTE ) 1 % ophthalmic suspension drops 1 Drop 01-28 23:00: 00 Yes 1[drp] 1 Drop, Left Eye, Q2H WHILE AWAKE, First dose on Tue01/29/24 at 1800, Until Discontinu ed, Routine [facility] lidocaine PF 2% (XYLOCAINE- MPF) injection 10 mL 01-28 19:30: 00 01-28 19:30 :00 No 10mL 10 mL, Injection, ONCE, 1 dose, On Tue01/29/24 at 1430, Routine [facility] LORazepam (ATIVAN) injection 1 mg 01-28 19:30: 00 01-28 19:50 :00 No 1mg 1 mg, Slow IV Push, ONCE, 1 dose, On Tue01/29/24 at 1430, Routine [facility] NaCl 0.9% (NS) IV infusion 1,000 mL 01-28 18:45: 00 01-31 14:12 :51 No 1000mL at 100 mL/hr, IV Infusion, CONTINUOUS , Starting on Tue01/29/24 at 1345, Until Tue02/01/24 at 0912, Routine [facility] docusate (COLACE) 50 mg/5 mL solution 100 mg 01-27 14:00: 00 Yes 100mg 100 mg, Oral, DAILY, First dose (after last modificati on) on Tue01/28/24 at 0900, Until Discontinu ed, Routine [facility] atorvastati n (LIPITOR) tablet 10 mg 01-27 02:00: 00 01-31 15:08 :56 No 10mg 10 mg, Oral, QHS, First dose on Tue01/27/24 at 2100, Until Discontinu ed, [facility] famot[facility] (PEPCID) 40 mg/5 mL (8 mg/mL) suspension 20 mg 01-27 01:00: 00 Yes 20mg 20 mg, Oral, BID, First dose (after last modificati on) on Tue01/27/24 at 2000, Until Discontinu ed, Routine, Indication for use: None of the above [facility] lacosamide (VIMPAT) tablet 150 mg 01-27 01:00: 00 02-02 21:53 :17 No 150mg 150 mg, Oral, BID, First dose (after last modificati on) on Tue01/27/24 at 2000, Until Discontinu ed, Routine [facility] carvedilol (COREG) 1.25 mg/mL oral suspension 37.5 mg 01-26 22:00: 00 01-31 15:08 :39 No 37.5mg 37.5 mg, Oral, BID MEALS, First dose (after last modificati on) on Tue01/27/24 at 1700, Until Discontinu ed, Routine [facility] gabapentin (NEURONTIN) 300 mg/6 mL oral solution 300 mg 01-26 19:00: 00 01-31 16:05 :55 No 300mg 300 mg, Oral, TID, First dose (after last modificati on) on Tue01/27/24 at 1400, Until Discontinu ed, Routine [facility] moxifloxaci n (VIGAMOX) 0.5 % ophthalmic drops 1 Drop 01-26 14:30: 00 01-28 13:05 :35 No 1[drp] 1 Drop, Left Eye, TID, First dose on Tue01/27/24 at 0930, Until Discontinu ed, Routine [facility] hydrALAZINE (APRESOLINE ) tablet 25 mg 01-26 13:45: 00 Yes 25mg 25 mg, Oral, Q6H, First dose on Tue01/27/24 at 0845, Until Discontinu ed, Routine [facility] divalproex ER (DEPAKOTE ER) 24 hr tablet 750 mg 01-26 01:00: 00 02-04 16:06 :09 No 700mg 750 mg (rounded from 700 mg), Oral, TID, First dose on Tue01/26/24 at 1999, Until Discontinu ed, Routine [facility] lacosamide (VIMPAT) tablet 100 mg 01-26 01:00: 00 01-26 18:44 :15 No 100mg 100 mg, Oral, BID, First dose on Tue01/26/24 at 2000, Until Discontinu ed, Routine [facility] lacosamide (VIMPAT) 100 mg in NaCl 0.9% (NS) 50 mL piggyback 01-25 02:00: 00 01-26 00:13 :11 No 100mg 100 mg, IV Piggyback, Q12H, First dose on Tue01/25/24 at 2100, Until Discontinu ed, Administer over 30 Minutes, 50 mL [facility] polyethylen e glycol 3350 powder 17 g 01-25 01:00: 00 Yes 17g 17 g, Oral, BID, First dose on Tue01/25/24 at 2000, Until Discontinu ed, Routine [facility] lisinopriL (PRINIVIL,Z ESTRIL) tablet 40 mg 01-24 22:30: 00 Yes 40mg 40 mg, Oral, DAILY, First dose on Tue01/25/24 at 1730, Until Discontinu ed, Routine [facility] labetaloL (NORMODYNE) 5 mg/mL injection 10 mg 01-24 20:15: 06 Yes 10mg 10 mg, Slow IV Push, Q30MIN PRN, Starting on Tue01/25/24 at 1515, Until Discontinu ed, Routine, for systolic >180 [facility] valproate (DEPACON) 700 mg in D5W piggyback 01-24 20:15: 00 01-26 00:13 :11 No 700mg 700 mg, IV Piggyback, TID, First dose on Tue01/25/24 at 1515, Until Discontinu ed, Administer over 60 Minutes, 100 mL [facility] labetaloL (NORMODYNE) 5 mg/mL injection 10 mg 01-24 03:43: 37 01-24 20:15 :19 No 10mg 10 mg, Slow IV Push, PRN, Starting on Tue01/24/24 at 2243, Until Tue01/25/24 at 1515, Routine, for systolic >180 [facility] carvedilol (COREG) 1.25 mg/mL oral suspension 25 mg 01-22 22:00: 00 01-26 14:16 :38 No 25mg 25 mg, Enteral, BID MEALS, First dose (after last modificati on) on Tue01/23/24 at 1700, Until Discontinu ed, Routine [facility] carvedilol (COREG) 1.25 mg/mL oral suspension 12.5 mg 01-22 16:30: 00 01-22 17:12 :00 No 12.5mg 12.5 mg, Enteral, ONCE, 1 dose, On Tue01/23/24 at 1130, Routine [facility] Potassium Bicarb-Citr ic Acid (EFFER-K) effervescen t tablet 40 mEq 01-22 16:30: 00 01-22 17:12 :00 No 40meq 40 mEq, Enteral, ONCE, 1 dose, On Tue01/23/24 at 1130, Routine [facility] propofoL IV infusion 01-22 16:22: 45 01-26 18:27 :39 No 5ug/kg/ min 5-50 mcg/kg/min ?131.9 kg (3.957-39. 57 mL/hr, rounded to 3.96-39.57 mL/hr), IV Infusion, TITRATE, Cessation of seizures or burst suppressio n, Starting on Tue01/23/24 at 1122, Initiate infusion at 5 mcg/kg/min and titrate by 5 mcg/kg/min every 30 seconds to 10 minutes to goal sedation score. Maximum dose = 50 mcg/kg/min . If goal not maintained at maximum allowed dose, contact prescriber . Tubing and unused portions of vials should be discarded after 12 hours. [facility] potassium chloride in water (KCL) 20 mEq/100 mL RTU IVPB 20 mEq 01-22 15:15: 00 01-22 17:06 :00 No 20meq 20 mEq, IV Piggyback, ONCE, 1 dose, On Tue01/23/24 at 1015, 100 mL [facility] amLODIPine (NORVASC) tablet 10 mg 01-22 14:00: 00 01-31 15:24 :04 No 10mg 10 mg, Enteral, DAILY, First dose (after last modificati on) on Tue01/23/24 at 0900, Until Discontinu ed, [facility] docusate (COLACE) 50 mg/5 mL solution 100 mg 01-22 14:00: 00 01-26 14:16 :38 No 100mg 100 mg, Enteral, DAILY, First dose on Tue01/23/24 at 0900, Until Discontinu ed, Routine [facility] valproic acid (DEPAKENE) 250 mg/5 mL oral solution 700 mg 01-22 13:15: 00 01-25 11:45 :45 No 700mg 700 mg, Enteral, Q8H, First dose on Tue01/23/24 at 0815, Until Discontinu ed, Routine [facility] heparin (porcine) injection 5,000 Units 01-22 13:00: 00 Yes 5000U 5,000 Units, Subcutaneo us, Q12H, First dose on Tue01/23/24 at 0800, Until Discontinu ed, Routine [facility] Sliding Scale Insulin - Lispro (HumaLOG) 01-22 13:00: 00 02-03 22:04 :24 No Subcutaneo us, TID MEALS+HS, First dose on Tue01/23/24 at 0800, Until Discontinu ed, Routine [facility] gabapentin (NEURONTIN) 300 mg/6 mL oral solution 300 mg 01-22 13:00: 00 01-26 14:16 :38 No 300mg 300 mg, Enteral, TID, First dose on Tue01/23/24 at 0800, Until Discontinu ed, Routine [facility] famotidine (PEPCID) 40 mg/5 mL (8 mg/mL) suspension 20 mg 01-22 13:00: 00 01-26 14:16 :38 No 20mg 20 mg, Enteral, BID, First dose on Tue01/23/24 at 0800, Until Discontinu ed, Routine, Indication for use: None of the above [facility] lacosamide (VIMPAT) tablet 100 mg 01-22 13:00: 00 01-25 01:56 :53 No 100mg 100 mg, Enteral, BID, First dose (after last modificati on) on Tue01/23/24 at 0800, Until Discontinu ed, Routine [facility] magnesium sulfate in water 2 gram/50 mL (4 %) infusion 2 g 01-22 13:00: 00 01-22 13:55 :00 No 2g 2 g, IV Piggyback, Administer over 60 Minutes, ONCE, 1 dose, On Tue01/23/24 at 0800, Routine [facility] acetaminoph en (TYLENOL) 160 mg/5 mL oral liquid 650 mg 01-22 12:58: 33 02-07 14:12 :21 No 650mg 650 mg, Enteral, Q4HPRN, Starting on Tue01/23/24 at 0758, Until Tue02/08/24 at 0912, Routine, Temp > 37.5 [facility] labetaloL (NORMODYNE) 5 mg/mL injection 5 mg 01-22 11:30: 00 01-22 10:44 :00 No 5mg 5 mg, Slow IV Push, ONCE, 1 dose, On Tue01/23/24 at 0630, Routine [facility] chlorhexidi ne (PERIDEX) 0.12 % mouthwash 15 mL 01-22 11:00: 00 Yes 15mL 15 mL, Oral (Swish And Spit Out), Q6H, First dose on Tue01/23/24 at 0600, Until Discontinu ed, Routine [facility] potassium chloride in water (KCL) 20 mEq/100 mL RTU IVPB 20 mEq 01-22 10:00: 00 01-22 13:59 :00 No 20meq 20 mEq, IV Piggyback, Q2H ES, 2 doses, First dose on Tue01/23/24 at 0500, Last dose on Tue01/23/24 at 0700, 100 mL [facility] propofoL IV infusion 01-22 09:39: 58 01-22 15:19 :52 No 5ug/kg/ min 5-50 mcg/kg/min ?131.9 kg (3.957-39. 57 mL/hr, rounded to 3.96-39.57 mL/hr), IV Infusion, TITRATE, Sedation-R ASS score (0 to -1), Starting on Tue01/23/24 at 0439, Initiate infusion at 5 mcg/kg/min and titrate by 5 mcg/kg/min every 30 seconds to 10 minutes to goal sedation score. Maximum dose = 50 mcg/kg/min . If goal not maintained at maximum allowed dose, contact prescriber . Tubing and unused portions of vials should be discarded after 12 hours. [facility] NaCl 0.9% (NS) IV infusion 1,000 mL 01-22 07:45: 00 01-28 18:36 :02 No 1000mL at 42 mL/hr, IV Infusion, CONTINUOUS , Starting on Tue01/23/24 at 0245, Until 01/29/24 at 1336, Routine [facility] omega-3s-dh a-epa-fish oil-D3 (FISH OIL-VIT D3) 360 mg-1,200 mg -1,000 unit Cap 01-22 00:51: 28 Yes Take by mouth. [facility] POTASSIUM-9 9 ORAL 01-22 00:51: 28 Yes 99mg Take 99 mg by mouth daily. [facility] gadobenate dimeglumine (MULTIHANCE -20 mL) injection 26.38 mL 12-07 13:45: 00 12-07 13:44 :00 No [id number] .2mL/kg 26.38 mL (0.2 mL/kg ?131.9 kg), Intravenou s, ONCE, 1 dose, On Tue12/08/23 at 0845, Routine [facility] riTUXimab-p vvr (RUXIENCE) 1,000 mg in NaCl 0.9% (NS) 1,000 mL infusion 12-01 14:00: 00 12-01 16:54 :00 No [id number] 1000mg 1,000 mg, IV Infusion, ONCE, Administer [...] d 30 minutes prior to each infusion. 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 [facility] methylpredn isolone sod succ (SOLU-MEDRO L) injection 100 mg 12-01 12:30: 00 12-01 12:47 :00 No [id number] 100mg 100 mg, Slow IV Push, ONCE, 1 dose, On Tue12/02/23 at 0730, Routine [facility] acetaminoph en (TYLENOL) tablet 650 mg 12-01 12:30: 00 12-01 12:28 :00 No [id number] 650mg 650 mg, Oral, ONCE, 1 dose, On Tue12/02/23 at 0730, Routine [facility] diphenhydrA MINE (BENADRYL) tablet 50 mg 12-01 12:30: 00 12-01 12:28 :00 No [id number] 50mg 50 mg, Oral, ONCE, 1 dose, On Tue12/02/23 at 0730, Routine [facility] atorvastati n 20 mg tablet 09-07 00:00: 00 04-30 00:00 :00 No [id number] 20mg Take 1 tablet by mouth at bedtime. [facility] lacosamide 50 mg tablet 09-07 00:00: 00 02-12 00:00 :00 No [id number] 50mg Take 1 tablet by mouth in the morning and 1 tablet in the evening. [facility] amLODIPine 10 mg tablet 09-02 00:00: 00 04-30 00:00 :00 No [id number] 10mg Take 1 tablet by mouth in the morning. [facility] gabapentin 300 mg capsule 09-02 00:00: 00 03-14 00:00 :00 No [id number] 300mg Take 1 capsule by mouth in the morning and 1 capsule at noon and 1 capsule in the evening. [facility] glyBURIDE 5 mg tablet 08-22 00:00: 00 02-12 00:00 :00 No [id number] 5mg Take 1 tablet by mouth daily with breakfast. [facility] atorvastati n 20 mg tablet 2022-07 00:00: 00 Yes [id number] 20mg Take 1 tablet by mouth at bedtime. [facility] hydrALAZINE 25 mg tablet 2022-07 00:00: 00 Yes [id number] 25mg Take 1 tablet by mouth every 6 (six) hours. [facility] DIVALPROEX ER 500 mg 24 hr tablet 2022-07 00:00: 00 02-14 00:00 :00 No [id number] 2000mg TAKE 4 TABLETS BY MOUTH IN THE MORNING AND 4 TABLETS IN THE EVENING [facility] lacosamide 50 mg tablet 2022-07 00:00: 00 09-06 00:00 :00 No [id number] 50mg Take 1 tablet by mouth in the morning and 1 tablet in the evening. [facility] riTUXimab (RITUXAN) 1,000 mg in NaCl 0.9% (NS) 1,000 mL infusion 2022-07 15:45: 00 06-03 19:16 :00 No [id number] 1000mg 1,000 mg, IV Infusion, ONCE, On [...] d 30 minutes prior to each infusion. [place] medical management (e.g., glucocorti coids, epinephrin e, [...] occur in patients receiving Rituximab. &nbs p;
[facility] methylpredn isolone sod succ (SOLU-MEDRO L) injection 100 mg 2022-07 15:15: 00 06-03 15:05 :00 No [id number] 100mg 100 mg, Slow IV Push, ONCE, 1 dose, On Tue06/03/23 at 0915, Routine [facility] acetaminoph en (TYLENOL) tablet 650 mg 2022-07 15:15: 00 06-03 15:04 :00 No [id number] 650mg 650 mg, Oral, ONCE, 1 dose, On Tue06/03/23 at 0915, Routine [facility] diphenhydrA MINE (BENADRYL) injection 50 mg 2022-07 15:15: 00 06-03 15:05 :00 No [id number] 50mg 50 mg, Slow IV Push, ONCE, 1 dose, On Tue06/03/23 at 0915, Routine [facility] omega-3s-dh a-epa-fish oil-D3 (FISH OIL-VIT D3) 360 mg-1,200 mg -1,000 unit Cap 2022-07 14:44: 15 Yes Take by mouth. [facility] MULTIVITS-M INERALS/FA/ LYCOPENE (ONE-A-DAY MEN'S MULTIVITAMI N ORAL) 2022-07-03 14:44: 15 Yes Take by mouth. [facility] glyBURIDE 5 mg tablet 2022-07 0-25 00:00: 00 Yes [id number] 5mg Take 1 tablet by mouth daily with breakfast. [facility] atorvastati n 20 mg tablet 2022-07 0-21 00:00: 00 Yes [id number] 20mg Take 1 tablet by mouth at bedtime. [facility] hydrALAZINE 25 mg tablet 9- 00:00: 00 Yes [id number] 25mg Take 1 tablet by mouth every 6 (six) hours. [facility] atorvastati n (LIPITOR) tablet 20 mg 03-22 02:00: 00 Yes 20mg 20 mg, Oral, QHS, First dose on Tue03/21/23 at 2100, Until Discontinu ed, Routine [facility] enoxaparin (LOVENOX) injection 40 mg 03-21 22:00: 00 Yes 40mg 40 mg, Subcutaneo us, DAILY, First dose on Tue03/21/23 at 1700, Until Discontinu ed, Routine [facility] omega-3s-dh a-epa-fish oil-D3 (FISH OIL-VIT D3) 360 mg-1,200 mg -1,000 unit Cap 03-21 17:40: 37 Yes Take by mouth. [facility] MULTIVITS-M INERALS/FA/ LYCOPENE (ONE-A-DAY MEN'S MULTIVITAMI N ORAL) 03-21 17:40: 37 Yes Take by mouth. [facility] predniSONE (DELTASONE) tablet 10 mg 03-21 14:00: 00 Yes 10mg 10 mg, Oral, DAILY, First dose on Tue03/21/23 at 0900, Until Discontinu ed, Routine [facility] pantoprazol e (PROTONIX) EC tablet 40 mg 03-21 14:00: 00 Yes 40mg 40 mg, Oral, DAILY, First dose on Tue03/21/23 at 0900, Until Discontinu ed, Routine [facility] lisinopriL (PRINIVIL,Z ESTRIL) tablet 40 mg 03-21 14:00: 00 Yes 40mg 40 mg, Oral, DAILY, First dose on Tue03/21/23 at 0900, Until Discontinu ed, Routine [facility] amLODIPine (NORVASC) tablet 10 mg 03-21 14:00: 00 Yes 10mg 10 mg, Oral, DAILY, First dose on Tue03/21/23 at 0900, Until Discontinu ed, Routine [facility] risperiDONE (RISPERDAL) tablet 1 mg 03-21 13:00: 00 Yes 1mg 1 mg, Oral, BID, First dose on Tue03/21/23 at 0800, Until Discontinu ed, Routine [facility] gabapentin (NEURONTIN) capsule 300 mg 03-21 13:00: 00 Yes 300mg 300 mg, Oral, TID, First dose on Tue03/21/23 at 0800, Until Discontinu ed, Routine [facility] divalproex ER (DEPAKOTE ER) 24 hr tablet 2,000 mg 03-21 13:00: 00 Yes 2000mg 2,000 mg, Oral, BID, First dose on Tue03/21/23 at 0800, Until Discontinu ed, Routine [facility] carvediloL (COREG) tablet 25 mg 03-21 13:00: 00 Yes 25mg 25 mg, Oral, BID MEALS, First dose on Tue03/21/23 at 0800, Until Discontinu ed, Routine [facility] lacosamide (VIMPAT) tablet 50 mg 03-21 13:00: 00 Yes 50mg 50 mg, Oral, BID, First dose on Tue03/21/23 at 0800, Until Discontinu ed, Routine
history faculty member approving Restricted medication : DAVID TAVERA [facility] hydrALAZINE (APRESOLINE ) tablet 25 mg 03-21 11:00: 00 Yes 25mg 25 mg, Oral, Q6H, First dose on Tue03/21/23 at 0600, Until Discontinu ed, Routine [facility] albuterol (VENTOLIN) inhaler 2 Puff 03-21 05:47: 08 Yes 2{puff} 2 Puff, Inhalation , Q6HPRN, Starting on Tue03/21/23 at 0047, Until Discontinu ed, Routine, Wheezing, Shortness of Breath, Bronchospa sm, Chest tightness [facility] acetaminoph en (TYLENOL) tablet 650 mg 03-21 05:38: 49 Yes 650mg 650 mg, Oral, PRN, Starting on Tue03/21/23 at 0038, Until Discontinu ed, Routine, Before infusion [facility] lacosamide (VIMPAT) 100 mg in NaCl 0.9% (NS) 50 mL piggyback 03-21 03:45: 00 03-21 07:15 :00 No 100mg 100 mg, IV Piggyback, ONCE, 1 dose, On Tue03/20/23 at 2245, Administer over 30 Minutes, 50 mL
Facu lty member approving Restricted medication : DAVID TAVERA [facility] ibuprofen (IBU) tablet 800 mg 03-21 02:30: 00 03-21 06:09 :00 No 800mg 800 mg, Oral, ONCE, 1 dose, On Tue03/20/23 at 2130[facility] 03-21 00:00: 00 06-17 00:00 :00 No [id number] 50mg Take 1 tablet by mouth in the morning and 1 tablet in the evening. [facility] NaCl 0.9% (NS) bolus infusion 1,000 mL 03-20 23:00: 00 03-20 22:35 :00 No 1000mL at 999 mL/hr, 1,000 mL, IV Infusion, ONCE, 1 dose, On Tue03/20/23 at 1800[facility] hr tablet 02-18 00:00: 00 06-17 00:00 :00 No [id number] 2000mg Take 4 tablets by mouth in the morning and 4 tablets in the evening. [facility] omega-3s-dh a-epa-fish oil-D3 (FISH OIL-VIT D3) 360 mg-1,200 mg -1,000 unit Cap 02-16 11:59: 33 Yes Take by mouth. [facility] MULTIVITS-M INERALS/FA/ LYCOPENE (ONE-A-DAY MEN'S MULTIVITAMI N ORAL) 02-16 11:59: 33 Yes Take by mouth. [facility] divalproex ER (DEPAKOTE ER) 24 hr tablet 2,000 mg 02-16 01:00: 00 Yes [id number] 2000mg 2,000 mg, Oral, BID, First dose (after last modificati on) on Tue02/15/23 at 2000, Until Discontinu ed, Routine [facility] divalproex ER 500 mg 24 hr tablet 02-16 00:00: 00 02-18 00:00 :00 No [id number] 2000mg Take 4 tablets by mouth in the morning and 4 tablets in the evening. [facility] hydralAZINE (APRESOLINE ) injection 5 mg 02-15 02:36: 49 02-18 02:35 :49 No 5mg 5 mg, Slow IV Push, Q3HPRN, Starting on Tue02/14/23 at 2136, Until Tue02/17/23 at 2135, Routine, DBP=>100; SBP=>180 [facility] atorvastati n (LIPITOR) tablet 20 mg 02-15 02:00: 00 Yes 20mg 20 mg, Oral, QHS, First dose on Tue02/14/23 at 2100, Until Discontinu ed, Routine [facility] iopamidol (ISOVUE 370-500 mL) injection 100 mL 02-14 16:30: 00 02-14 15:30 :00 No [id number] 100mL 100 mL, Intravenou s, ONCE, 1 dose, On Tue02/14/23 at 1130, Routine [facility] predniSONE (DELTASONE) tablet 5 mg 02-14 14:00: 00 Yes 5mg 5 mg, Oral, DAILY, First dose on Tue02/14/23 at 0900, Until Discontinu ed, Routine [facility] pantoprazol e (PROTONIX) EC tablet 40 mg 02-14 14:00: 00 Yes 40mg 40 mg, Oral, DAILY, First dose on Tue02/14/23 at 0900, Until Discontinu ed, Routine [facility] lisinopriL (PRINIVIL,Z ESTRIL) tablet 40 mg 02-14 14:00: 00 Yes 40mg 40 mg, Oral, DAILY, First dose on Tue02/14/23 at 0900, [facility] 325 mg 02-14 14:00: 00 Yes 325mg 325 mg, Oral, Q OTHERDAY, First dose on Tue02/14/23 at 0900, Until Discontinu ed, Routine [facility] amLODIPine (NORVASC) tablet 10 mg 02-14 14:00: 00 Yes 10mg 10 mg, Oral, DAILY, First dose on Tue02/14/23 at 0900, Until Discontinu ed, Routine [facility] KCL (KLOR-CON M20) tablet 40 mEq 02-14 14:00: 00 02-14 18:20 :00 No [id number] 40meq 40 mEq, Oral, ONCE, 1 dose, On Tue02/14/23 at 0900, Routine [facility] risperiDONE (RISPERDAL) tablet 1 mg 02-14 13:00: 00 Yes 1mg 1 mg, Oral, BID, First dose on Tue02/14/23 at 0800, Until Discontinu ed, Routine [facility] glyBURIDE (DIABETA) tablet 5 mg 02-14 13:00: 00 Yes 5mg 5 mg, Oral, QAM WITH BREAKFAST, First dose on Tue02/14/23 at 0800, Until Discontinu ed, Routine [facility] gabapentin (NEURONTIN) capsule 300 mg 02-14 13:00: 00 Yes 300mg 300 mg, Oral, TID, First dose on Tue02/14/23 at 0800, Until Discontinu ed, Routine [facility] fluticasone propionate 50 mcg/actuati on nasal spray 1 Newton 02-14 13:00: 00 Yes 1{spray } 1 Newton, Nasal, BID, First dose on Tue02/14/23 at 0800, Until Discontinu ed, Routine [facility] carvediloL (COREG) tablet 25 mg 02-14 13:00: 00 Yes 25mg 25 mg, Oral, BID MEALS, First dose on Tue02/14/23 at 0800, Until Discontinu ed, Routine [facility] hydrALAZINE (APRESOLINE ) tablet 25 mg 02-14 11:00: 00 Yes 25mg 25 mg, Oral, Q6H, First dose on Tue02/14/23 at 0600, Until Discontinu ed, Routine [facility] hydrOXYzine (ATARAX) tablet 10 mg 02-14 06:26: 00 Yes 10mg 10 mg, Oral, Q6HPRN, Starting on Tue02/14/23 at 0126, Until Discontinu ed, Routine, Itching [facility] diphenhydrA MINE (BENADRYL) tablet 25 mg 02-14 06:25: 45 Yes 25mg 25 mg, Oral, PRN, Starting on Tue02/14/23 at 0125, Until Discontinu ed, Routine, Itching [facility] acetaminoph en (TYLENOL) tablet 650 mg 02-14 06:25: 39 Yes 650mg 650 mg, Oral, PRN, Starting on Tue02/14/23 at 0125, Until Discontinu ed, Routine, Before infusion [facility] acetaminoph en (TYLENOL) tablet 650 mg 02-14 05:22: 22 Yes 650mg 650 mg, Oral, Q6HPRN, Starting on Tue02/14/23 at 0022, Until Discontinu ed, Routine, Temp > 38 C [facility] omega-3s-dh a-epa-fish oil-D3 (FISH OIL-VIT D3) 360 mg-1,200 mg -1,000 unit Cap 01-31 15:09: 07 Yes Take by mouth. [facility] MULTIVITS-M INERALS/FA/ LYCOPENE (ONE-A-DAY MEN'S MULTIVITAMI N ORAL) 01-31 15:09: 07 Yes Take by mouth. [facility] atorvastati n 20 mg tablet 01-31 00:00: 00 Yes [id number] 20mg Take 1 tablet by mouth at bedtime. [facility] hydrALAZINE 25 mg tablet 01-31 00:00: 00 Yes [id number] 25mg Take 1 tablet by mouth every 6 (six) hours. [facility] glyBURIDE 5 mg tablet 01-31 00:00: 00 Yes [id number] 5mg Take 1 tablet by mouth daily with breakfast. [facility] gabapentin 300 mg capsule 01-31 00:00: 00 Yes [id number] 300mg Take 1 capsule by mouth in the morning and 1 capsule at noon and 1 capsule in the evening. [facility] lisinopriL 40 mg tablet 01-31 00:00: 00 Yes [id number] 40mg Take 1 tablet by mouth in the morning. [facility] metFORMIN 1,000 mg tablet 01-31 00:00: 00 03-27 00:00 :00 No [id number] 1000mg Take 1 tablet by mouth in the morning and 1 tablet in the evening. Take with meals. [facility] riTUXimab (RITUXAN) 1,000 mg in NaCl 0.9% (NS) 1,000 mL infusion 12-01 17:00: 00 12-01 20:21 :00 No [id number] 1000mg 1,000 mg, IV Infusion, ONCE, On [...] d 30 minutes prior to each infusion. [place] medical management (e.g., glucocorti coids, epinephrin e, [...] occur in patients receiving Rituximab. &nbs p;
[facility] acetaminoph en (TYLENOL) tablet 650 mg 12-01 14:15: 00 12-01 14:06 :00 No [id number] 650mg 650 mg, Oral, ONCE, 1 dose, On Tue12/01/22 at 0915, Routine [facility] diphenhydrA MINE (BENADRYL) tablet 25 mg 12-01 14:15: 00 12-01 14:06 :00 No [id number] 25mg 25 mg, Oral, ONCE, 1 dose, On Tue12/01/22 at 0915, Routine [facility] glyBURIDE 5 mg tablet - 00:00: 00 Yes [id number] 5mg Take 1 tablet by mouth daily with breakfast. [facility] fluticasone propionate (FLONASE ALLERGY RELIEF) 50 mcg/actuati on nasal spray 11-17 00:00: 00 Yes [id number] 1{spray } Use 1 Newton in each nostril in the morning and 1 Newton in the evening. [facility] omega-3s-dh a-epa-fish oil-D3 (FISH OIL-VIT D3) 360 mg-1,200 mg -1,000 unit Cap 10-26 15:16: 05 Yes Take by mouth. [facility] MULTIVITS-M INERALS/FA/ LYCOPENE (ONE-A-DAY MEN'S MULTIVITAMI N ORAL) 10-26 15:16: 05 Yes Take by mouth. [facility] pantoprazol e (PROTONIX) EC tablet 40 mg 10-26 14:00: 00 Yes 40mg 40 mg, Oral, DAILY, First dose on Tue10/26/22 at 0900, Until Discontinu ed, Routine [facility] lisinopriL (PRINIVIL,Z ESTRIL) tablet 40 mg 10-26 14:00: 00 Yes 40mg 40 mg, Oral, DAILY, First dose on Tue10/26/22 at 0900, Until Discontinu ed [facility] amLODIPine (NORVASC) tablet 10 mg 10-26 14:00: 00 Yes 10mg 10 mg, Oral, DAILY, First dose on Tue10/26/22 at 0900, Until Discontinu ed, Routine [facility] atorvastati n (LIPITOR) tablet 20 mg 10-26 02:00: 00 Yes 20mg 20 mg, Oral, QHS, First dose on Tue10/25/22 at 2100, Until Discontinu ed, Routine [facility] heparin (porcine) injection 5,000 Units 10-26 01:00: 00 Yes 5000U 5,000 Units, Subcutaneo us, Q12H, First dose on Tue10/25/22 at 2000, Until Discontinu ed, Routine [facility] risperiDONE (RISPERDAL) tablet 1 mg 10-26 01:00: 00 Yes 1mg 1 mg, Oral, BID, First dose on Tue10/25/22 at 2000, Until Discontinu ed, Routine [facility] divalproex 250 mg EC tablet 10-26 00:00: 00 01-25 04:59 :00 No [id number] 1750mg Take 7 tablets by mouth every 12 (twelve) hours for 90 days. [facility] carvediloL (COREG) tablet 25 mg 10-25 22:00: 00 Yes 25mg 25 mg, Oral, BID MEALS, First dose on Tue10/25/22 at 1700, Until Discontinu ed, Routine [facility] gabapentin (NEURONTIN) capsule 300 mg 10-25 19:00: 00 Yes 300mg 300 mg, Oral, TID, First dose on Tue10/25/22 at 1400, Until Discontinu ed, Routine [facility] Sliding Scale Insulin - Lispro (HumaLOG) + Fsbg Testing 10-25 17:00: 00 Yes Subcutaneo us, TID MEALS+HS, First dose on Tue10/25/22 at 1200, Until Discontinu ed, Routine [facility] hydrALAZINE (APRESOLINE ) tablet 25 mg 10-25 17:00: 00 Yes 25mg 25 mg, Oral, Q6H, First dose on Tue10/25/22 at 1200, Until Discontinu ed, Routine [facility] dextrose 10% (D10W) bolus infusion 250 [...] blood glucose is < 80 mg/dL, repeat.
[facility] glucagon (GLUCAGEN DIAGNOSTIC KIT) injection 1 mg 10-25 15:51: 50 Yes 1mg 1 mg, Intramuscu lar, PRN, Starting on Tue10/25/22 at 1051, Until Discontinu ed, HENRY, Blood Glucose < or = 70 mg/dL and patient is NPO, unable to swallow or has mental changes. [facility] predniSONE (DELTASONE) tablet 5 mg 10-25 15:15: 00 Yes 5mg 5 mg, Oral, DAILY, First dose on Tue10/25/22 at 1015, Until Discontinu ed, Routine [facility] acetaminoph en (TYLENOL) tablet 650 mg 10-25 15:11: 20 Yes 650mg 650 mg, Oral, Q6HPRN, Starting on Tue10/25/22 at 1011, Until Discontinu ed, Routine, Pain (scale 4-6) [facility] docusate (COLACE) capsule 100 mg 10-25 15:11: 20 Yes 100mg 100 mg, Oral, QDAILYPRN, Starting on Tue10/25/22 at 1011, Until Discontinu ed, Routine, Constipati on [facility] hydrOXYzine (ATARAX) tablet 10 mg 10-25 15:10: 10 Yes 10mg 10 mg, Oral, Q6HPRN, Starting on Tue10/25/22 at 1010, Until Discontinu ed, Routine, Itching [facility] lisinopriL 40 mg tablet 08-17 00:00: 00 Yes [id number] 40mg Take 1 tablet by mouth in the morning. [facility] atorvastati n 20 mg tablet 08-17 00:00: 00 Yes [id number] 20mg Take 1 tablet by mouth at bedtime. [facility] gabapentin 300 mg capsule 08-17 00:00: 00 Yes [id number] 300mg Take 1 capsule by mouth in the morning and 1 capsule at noon and 1 capsule in the evening. [facility] hydrALAZINE 25 mg tablet 08-17 00:00: 00 Yes [id number] 25mg Take 1 tablet by mouth every 6 (six) hours. [facility] metFORMIN 1,000 mg tablet 08-17 00:00: 00 Yes [id number] 1000mg Take 1 tablet by mouth in the morning and 1 tablet in the evening. Take with meals. [facility] amLODIPine 10 mg tablet 08-17 00:00: 00 Yes [id number] 10mg Take 1 tablet by mouth in the morning. [facility] risperiDONE 1 mg tablet 08-17 00:00: 00 Yes [id number] 1mg Take 1 tablet by mouth in the morning and 1 tablet in the evening. [facility] pantoprazol e 40 mg EC tablet 08-17 00:00: 00 Yes [id number] 40mg Take 1 tablet by mouth in the morning. [facility] hydrOXYzine 10 mg tablet 08-17 00:00: 00 Yes [id number] 10mg Take 1 tablet by mouth every 6 (six) hours as needed for Itching. [facility] ferrous sulfate 325 mg (65 mg iron) tablet 08-17 00:00: 00 Yes [id number] 325mg Take 1 tablet by mouth every other day. [facility] carvediloL (COREG) 25 mg tablet 08-17 00:00: 00 02-12 00:00 :00 No [id number] 25mg Take 1 tablet by mouth in the morning and 1 tablet in the evening. Take with meals. [facility] predniSONE 5 mg tablet 08-17 00:00: 00 07-05 05:59 :00 No [id number] Take 4 tablets by mouth daily for 7 days, THEN 3.5 tablets daily for 7 days, THEN 3 tablets daily for 7 days, THEN 2 tablets daily for 300 days. [facility] diphenhydrA MINE 25 mg tablet 08-17 00:00: 00 03-21 00:00 :00 No [id number] 25mg Take 1 tablet by mouth as needed for Allergies (Before infusion). [facility] divalproex 500 mg EC tablet 08-17 00:00: 00 10-26 00:00 :00 No [id number] 1500mg Take 3 tablets by mouth every 12 (twelve) hours. [facility] atorvastati n (LIPITOR) 20 mg tablet 08-12 09:11: 44 08-12 00:00 :00 No 20mg Take 20 mg by mouth at bedtime. [facility] vitamin B-12 100 mcg tablet 08-12 09:04: 51 08-12 00:00 :00 No 2500ug Take 2,500 mcg by mouth daily. [facility] tiZANidine 4 mg tablet 08-12 09:03: 27 08-12 00:00 :00 No tizanidine 4 mg tablet Take 1 tablet every 12 hours by oral route as needed for 30 days. [facility] HYDROcodone -acetaminop hen 7.5-325 mg per tablet 08-12 09:03: 15 08-12 00:00 :00 No hydrocodon e 7.5 mg-acetami nophen 325 mg tablet [facility] FLUoxetine 40 mg capsule 08-12 09:03: 05 08-12 00:00 :00 No fluoxetine 40 mg capsule [facility] etodolac 500 mg tablet 08-12 09:02: 59 08-12 00:00 :00 No etodolac 500 mg tablet TAKE ONE TABLET BY MOUTH TWICE A DAY NEEDED [facility] Diclofenac Sodium 1 % gel 08-12 09:02: 47 08-12 00:00 :00 No diclofenac 1 % topical gel [facility] citalopram 20 mg tablet 08-12 09:02: 41 08-12 00:00 :00 No citalopram 20 mg tablet [facility] busPIRone 15 mg tablet 08-12 09:02: 28 08-12 00:00 :00 No buspirone 15 mg tablet [facility] busPIRone 30 mg tablet 08-12 09:02: 16 08-12 00:00 :00 No buspirone 30 mg tablet [facility] baclofen 10 mg tablet 08-12 09:01: 53 08-12 00:00 :00 No baclofen 10 mg tablet Take 1 tablet every 12 hours by oral route as needed for 30 days. [facility] ALPRAZolam 0.5 mg tablet 08-12 09:00: 07 08-12 00:00 :00 No alprazolam 0.5 mg tablet [facility] amLODIPine 10 mg tablet 08-12 00:00: 00 08-17 00:00 :00 No [id number] 10mg Take 1 tablet by mouth in the morning. [facility] carvediloL (COREG) 25 mg tablet 08-12 00:00: 00 08-17 00:00 :00 No [id number] 25mg Take 1 tablet by mouth in the morning and 1 tablet in the evening. Take with meals. [facility] diphenhydrA MINE 25 mg tablet 08-12 00:00: 00 08-17 00:00 :00 No [id number] 25mg Take 1 tablet by mouth as needed for Allergies (Before infusion). [facility] divalproex 500 mg EC tablet 08-12 00:00: 00 08-17 00:00 :00 No [id number] 1500mg Take 3 tablets by mouth every 12 (twelve) hours. [facility] ferrous sulfate 325 mg (65 mg iron) tablet 08-12 00:00: 00 08-17 00:00 :00 No [id number] 325mg Take 1 tablet by mouth every other day. [facility] gabapentin 300 mg capsule 08-12 00:00: 00 08-17 00:00 :00 No [id number] 300mg Take 1 capsule by mouth in the morning and 1 capsule at noon and 1 capsule in the evening. [facility] hydrOXYzine 10 mg tablet 08-12 00:00: 00 08-17 00:00 :00 No [id number] 10mg Take 1 tablet by mouth every 6 (six) hours as needed for Itching. [facility] lisinopriL 40 mg tablet 08-12 00:00: 00 08-17 00:00 :00 No [id number] 40mg Take 1 tablet by mouth in the morning. [facility] pantoprazol e 40 mg EC tablet 08-12 00:00: 00 08-17 00:00 :00 No [id number] 40mg Take 1 tablet by mouth in the morning. [facility] predniSONE 5 mg tablet 08-12 00:00: 00 08-17 00:00 :00 No [id number] Take 4 tablets by mouth daily for 7 days, THEN 3.5 tablets daily for 7 days, THEN 3 tablets daily for 7 days, THEN 2 tablets daily for 300 days. [facility] atorvastati n 20 mg tablet 08-12 00:00: 00 08-17 00:00 :00 No [id number] 20mg Take 1 tablet by mouth at bedtime. [facility] hydrALAZINE 25 mg tablet 08-12 00:00: 00 08-17 00:00 :00 No [id number] 25mg Take 1 tablet by mouth every 6 (six) hours. [facility] risperiDONE 1 mg tablet 08-12 00:00: 00 08-17 00:00 :00 No [id number] 1mg Take 1 tablet by mouth in the morning and 1 tablet in the evening. [facility] metFORMIN 1,000 mg tablet 08-12 00:00: 00 08-17 00:00 :00 No [id number] 1000mg Take 1 tablet by mouth in the morning and 1 tablet in the evening. Take with meals. [facility] divalproex 500 mg EC tablet 2021-07 2- 00:00: 00 08-12 00:00 :00 No [id number] 1500mg Take 3 tablets by mouth every 12 (twelve) hours. [facility] ALPRAZolam 0.5 mg tablet 2021-07 10:12: 34 Yes alprazolam 0.5 mg tablet [facility] baclofen 10 mg tablet 2021-07 10:12: 34 Yes baclofen 10 mg tablet Take 1 tablet every 12 hours by oral route as needed for 30 days. [facility] busPIRone 15 mg tablet 2021-07 10:12: 34 Yes buspirone 15 mg tablet [facility] busPIRone 30 mg tablet 2021-07 10:12: 34 Yes buspirone 30 mg tablet [facility] citalopram 20 mg tablet 2021-07 10:12: 34 Yes citalopram 20 mg tablet [facility] Diclofenac Sodium 1 % gel 2021-07 10:12: 34 Yes diclofenac 1 % topical gel [facility] etodolac 500 mg tablet 2021-07 10:12: 34 Yes etodolac 500 mg tablet TAKE ONE TABLET BY MOUTH TWICE A DAY NEEDED [facility] FLUoxetine 40 mg capsule 2021-07 10:12: 34 Yes fluoxetine 40 mg capsule [facility] HYDROcodone -acetaminop hen 7.5-325 mg per tablet 2021-07 10:12: 34 Yes hydrocodon e 7.5 mg-acetami nophen 325 mg tablet [facility] tiZANidine 4 mg tablet 2021-07 10:12: 34 Yes tizanidine 4 mg tablet Take 1 tablet every 12 hours by oral route as needed for 30 days. [facility] riTUXimab (RITUXAN) 1,000 mg in NaCl 0.9% (NS) 1,000 mL infusion 2021-07 15:30: 06-03 19:45 :00 No [id number] 1000mg 1,000 mg, IV Infusion, ONCE, On [...] d 30 minutes prior to each infusion. [place] medical management (e.g., glucocorti coids, epinephrin e, [...] occur in patients receiving Rituximab. &nbs p;
[facility] diphenhydrA MINE (BENADRYL) tablet 25 mg 2021-07 14:45: 00 06-03 14:39 :00 No [id number] 25mg 25 mg, Oral, ONCE, 1 dose, On [place] 06/03/22 at 0845, Routine [facility] acetaminoph en (TYLENOL) tablet 650 mg 2021-07 14:45: 06-03 14:39 :00 No [id number] 650mg 650 mg, Oral, ONCE, 1 dose, On [place] 06/03/22 at 0845, Routine [facility] ibuprofen (ADVIL) 200 mg tablet 2021-07 14:12: 18 06-03 00:00 :00 No 200mg Take 200 mg by mouth 2 (two) times daily with meals. [facility] acetaminoph en (TYLENOL) 325 mg tablet 2021-07 00:00: 00 03-21 00:00 :00 No [id number] 650mg Take 2 tablets by mouth as needed (Before infusion). [facility] diphenhydrA MINE 25 mg tablet 2021-07 00:00: 00 08-12 00:00 :00 No [id number] 25mg Take 1 tablet by mouth as needed for Allergies (Before infusion). [facility] riTUXimab (RITUXAN) 1,000 mg in NaCl 0.9% (NS) 1,000 mL infusion 2021-07 16:00: 00 05-20 21:37 :00 No [id number] 1000mg 1,000 mg, IV Infusion, ONCE, On [...] d 30 minutes prior to each infusion. [place] medical management (e.g., glucocorti coids, epinephrin e, [...] occur in patients receiving Rituximab. &nbs p;
[facility] diphenhydrA MINE (BENADRYL) tablet 25 mg 2021-07 15:45: 00 05-20 14:50 :00 No [id number] 25mg 25 mg, Oral, ONCE, 1 dose, On [place] 05/20/22 at 1045, Routine [facility] acetaminoph en (TYLENOL) tablet 650 mg 2021-07 15:45: 00 05-20 14:50 :00 No [id number] 650mg 650 mg, Oral, ONCE, 1 dose, On [place] 05/20/22 at 1045, Routine [facility] omega-3s-dh a-epa-fish oil-D3 (FISH OIL-VIT D3) 360 mg-1,200 mg -1,000 unit Cap 2021-07 15:58: 17 Yes Take by mouth. [facility] atorvastati n (LIPITOR) 20 mg tablet 2021-07 15:58: 17 Yes 20mg Take 20 mg by mouth at bedtime. [facility] MULTIVITS-M INERALS/FA/ LYCOPENE (ONE-A-DAY MEN'S MULTIVITAMI N ORAL) 2021-07 15:58: 17 Yes Take by mouth. [facility] ibuprofen (ADVIL) 200 mg tablet 2021-07 15:58: 17 Yes 200mg Take 200 mg by mouth 2 (two) times daily with meals. [facility] vitamin B-12 100 mcg tablet 2021-07 15:58: 17 Yes 2500ug Take 2,500 mcg by mouth daily. [facility] hydrALAZINE (APRESOLINE ) tablet 25 mg 2021-07 15:00: 00 Yes 25mg 25 mg, Oral, TID, First dose (after last modificati on) on Tue05/08/22 at 1000, Until Discontinu ed, Routine [facility] gabapentin (NEURONTIN) capsule 300 mg 2021-07 01:00: 00 Yes 300mg 300 mg, Oral, TID, First dose on Tue05/07/22 at 2000, Until Discontinu ed, Routine [facility] azaTHIOprin e 50 mg tablet 2021-07 00:00: 00 08-12 00:00 :00 No [id number] 100mg Take 2 tablets by mouth in the morning. [facility] gabapentin 300 mg capsule 2021-07 00:00: 00 08-12 00:00 :00 No [id number] 300mg Take 1 capsule by mouth in the morning and 1 capsule at noon and 1 capsule in the evening. Do all this for 180 days. [facility] hydrALAZINE 25 mg tablet 2021-07 00:00: 00 08-07 05:59 :00 No [id number] 25mg Take 1 tablet by mouth in the morning and 1 tablet at noon and 1 tablet in the evening. Do all this for 90 days. [facility] apixaban (ELIQUIS) 5 mg tablet 2021-07 00:00: 00 08-07 05:59 :00 No [id number] 5mg Take 1 tablet by mouth in the morning and 1 tablet in the evening. Do all this for 90 days. Indication s: history of deep vein thrombosis [facility] apixaban (ELIQUIS) 5 mg tablet 2021-07 00:00: 00 05-08 00:00 :00 No [id number] 10mg Take 2 tablets by mouth in the morning and 2 tablets in the evening. Do all this for 7 days. Indication s: history of deep vein thrombosis [facility] aspirin 81 mg chewable tablet 2021-0715 00:00: 00 05-07 00:00 :00 No [id number] 81mg Take 1 tablet by mouth in the morning. [facility] azaTHIOprin e 100 mg tablet 2021-07 00:00: 00 05-07 00:00 :00 No [id number] 100mg Take 1 tablet by mouth in the morning. [facility] gadobenate dimeglumine (MULTIHANCE -15 mL) injection 19.78 mL 2021-07 03:15: 00 05-07 03:15 :00 No [id number] .2mL/kg 19.78 mL (0.2 mL/kg ?98.9 kg), Intravenou s, ONCE, 1 dose, On [facility] 05/06/22 at 2215, Routine [facility] predniSONE 5 mg tablet 2021-07 00:00: 00 08-12 00:00 :00 No [id number] Take 4 tablets by mouth daily for 7 days, THEN 3.5 tablets daily for 7 days, THEN 3 tablets daily for 7 days, THEN 2 tablets daily for 300 days. [facility] lacosamide 50 mg tablet 2021-07 00:00: 00 06-03 00:00 :00 No [id number] 50mg Take 1 tablet by mouth in the morning and 1 tablet in the evening. [facility] Lacosamide 10 mg/mL oral solution 2021-07 00:00: 00 05-07 00:00 :00 No [id number] 50mg Take 5 mL by mouth in the morning and 5 mL in the evening. [facility] aspirin chewable tablet 81 mg 2021-07 19:45: 00 Yes 81mg 81 mg, Oral, DAILY, First dose on [facility] 05/06/22 at 1445, Until Discontinu ed, Routine [facility] azaTHIOprin e (IMURAN) tablet 100 mg 2021-07 14:00: 00 Yes 100mg 100 mg, Oral, DAILY, First dose (after last modificati on) on [facility] 05/06/22 at 0900, Until Discontinu [facility] am[facility] (NORVASC) tablet 10 mg 2021-07 14:00: 00 Yes 10mg 10 mg, Oral, DAILY, First dose on Tue05/06/22 at 0900, Until Discontinu ed, Routine [facility] acetaminoph en (TYLENOL) tablet 500 mg 2021-07 04:47: 18 Yes 500mg 500 mg, Oral, Q6HPRN, Starting on Tue05/05/22 at 2347, Until Discontinu ed, Routine, Pain (scale 1-3), Temp > 38.5 C, Pain (scale 4-6) [facility] atorvastati n (LIPITOR) tablet 20 mg 2021-07 02:00: 00 Yes 20mg 20 mg, Oral, QHS, First dose on Tue05/05/22 at 2100, Until Discontinu ed, [facility]ine [facility] [facility]DONE (RISPERDAL) tablet 1 mg 2021-07 01:00: 00 Yes 1mg 1 mg, Oral, BID, First dose on Tue05/05/22 at 2000, Until Discontinu ed, [facility] tablet 1,500 mg 2021-07 01:00: 00 Yes 1500mg 1,500 mg, Oral, Q12H, First dose on Tue05/05/22 at 2000, Until Discontinu ed, Routine [facility] heparin (porcine) injection 5,000 Units 2021-07 01:00: 00 Yes 5000U 5,000 Units, Subcutaneo us, Q12H, First dose on Tue05/05/22 at 2000, Until Discontinu ed, Routine [facility] Sliding Scale Insulin - Lispro (HumaLOG) + Fsbg Testing 2021-07 22:00: 00 Yes Subcutaneo us, TID MEALS+HS, First dose on Tue05/05/22 at 1700, Until Discontinu ed, Routine [facility] carvediloL (COREG) tablet 25 mg 2021-07 22:00: 00 Yes 25mg 25 mg, Oral, BID MEALS, First dose on Tue05/05/22 at 1700, Until Discontinu ed, Routine [facility] lacosamide (VIMPAT) 50 mg in NaCl 0.9% (NS) 50 mL piggyback 2021-07 21:45: 00 05-08 00:27 :03 No 50mg 50 mg, IV Piggyback, Q12H, First dose on Tue05/05/22 at 1645, Until Discontinu ed, Administer over 30 Minutes, 50 mL
Facu lty member approving Restricted medication : DWAINE COX RA [facility] predniSONE (DELTASONE) tablet 20 mg 2021-07 19:00: 00 Yes 20mg 20 mg, Oral, DAILY, First dose on Tue05/05/22 at 1400, Until Discontinu ed, Routine [facility] glucagon (GLUCAGEN DIAGNOSTIC KIT) injection 1 mg 2021-07 18:48: 01 Yes 1mg 1 mg, Intramuscu lar, PRN, Starting on Tue05/05/22 at 1348, Until Discontinu ed, HENRY, Blood Glucose < or = 70 mg/dL and patient is unable to swallow or has mental changes. [facility] dextrose 50 % in water (D50W) injection 25 mL 2021-07 18:48: 01 Yes 25mL 25 mL, Slow IV Push, PRN, Starting on Tue05/05/22 at 1348, Until Discontinu ed, HENRY, Blood Glucose < or = 70 mg/dL and patient is unable to swallow or has mental status changes. [facility] hydrOXYzine (ATARAX) 10 mg/5 mL solution 10 mg 2021-07 18:47: 35 Yes 10mg 10 mg, Oral, Q6HPRN, Starting on Tue05/05/22 at 1347, Until Discontinu ed, Routine, Anxiety [facility] NaCl 0.9% (NS) IV infusion 1,000 mL 2021-07 18:30: 00 Yes 1000mL at 50 mL/hr, IV Infusion, CONTINUOUS , Starting on Tue05/05/22 at 1330, Until Discontinu ed, Routine
To keep vein open.
[facility] iopamidol (ISOVUE 370-500 mL) injection 100 mL 2021-07 16:00: 00 05-05 16:00 :00 No [id number] 100mL 100 mL, Intravenou s, ONCE, 1 dose, On Tue05/05/22 at 1100, Routine [facility] iopamidol (ISOVUE 370-500 mL) injection 100 mL 2021-07 15:45: 00 05-05 15:45 :00 No [id number] 100mL 100 mL, Intravenou s, ONCE, 1 dose, On Tue05/05/22 at 1045, Routine [facility] NaCl 0.9% (NS) injection 5 mL 2021-07 14:20: 20 Yes 5mL 5 mL, Slow IV Push, PRN - SEE INSTRUCTIO NS, Starting on Tue05/05/22 at 0920, Until Discontinu ed, 10 mL [facility] predniSONE (DELTASONE) tablet 30 mg 04-11 14:00: 00 04-16 13:59 :00 No 30mg 30 mg, Oral, DAILY, 5 doses, First dose on 04/11/22 at 0900, Last dose on [place]are[place] 04/15/22 at 0900, Routine [facility] omega-3s-dh a-epa-fish oil-D3 (FISH OIL-VIT D3) 360 mg-1,200 mg -1,000 unit Cap 04-09 23:12: 13 Yes Take by mouth. [facility] atorvastati n (LIPITOR) 20 mg tablet 04-09 23:12: 13 Yes 20mg Take 20 mg by mouth at bedtime. [facility] POTASSIUM-9 9 ORAL 04-09 23:12: 13 Yes 99mg Take 99 mg by mouth daily. [facility] ibuprofen (ADVIL) 200 mg tablet 04-09 23:12: 13 Yes 200mg Take 200 mg by mouth 2 (two) times daily with meals. [facility] vitamin B-12 100 mcg tablet 04-09 23:12: 13 Yes 2500ug Take 2,500 mcg by mouth daily. [facility] carvedilol (COREG) 25 mg tablet 04-09 16:13: 37 04-09 00:00 :00 No 25mg Take 25 mg by mouth 2 (two) times daily with meals. [facility] lisinopriL 40 mg tablet 04-09 16:13: 37 04-09 00:00 :00 No 40mg Take 40 mg by mouth in the morning. [facility] lisinopriL 40 mg tablet 04-09 00:00: 00 08-12 00:00 :00 No [id number] 40mg Take 1 tablet by mouth in the morning. [facility] carvediloL (COREG) 25 mg tablet 04-09 00:00: 00 08-12 00:00 :00 No [id number] 25mg Take 1 tablet by mouth in the morning and 1 tablet in the evening. Take with meals. [facility] amLODIPine 10 mg tablet 04-09 00:00: 00 08-12 00:00 :00 No [id number] 10mg Take 1 tablet by mouth in the morning. [facility] risperiDONE 1 mg tablet 04-09 00:00: 00 07-09 05:59 :00 No [id number] 1mg Take 1 tablet by mouth in the morning and 1 tablet in the evening. Do all this for 90 days. [facility] divalproex 500 mg EC tablet 04-09 00:00: 00 07-09 05:59 :00 No [id number] 1500mg Take 3 tablets by mouth every 12 (twelve) hours for 90 days. [facility] predniSONE 5 mg tablet 04-09 00:00: 00 05-07 00:00 :00 No [id number] Take 6 tablets by mouth daily for 7 days, THEN 4 tablets daily for 7 days, THEN 2 tablets daily for 7 days, THEN 1 tablet daily for 100 days. [facility] predniSONE 5 mg tablet 04-08 00:00: 00 04-09 00:00 :00 No [id number] Take 6 tablets by mouth daily for 5 days, THEN 4 tablets daily for 5 days, THEN 2 tablets daily for 5 days, THEN 1 tablet daily for 100 days. [facility] predniSONE (DELTASONE) tablet 40 mg 04-06 14:00: 00 04-11 13:59 :00 No 40mg 40 mg, Oral, DAILY, 5 doses, First dose on Tue04/06/22 at 0900, Last dose on Tue04/10/22 at 0900, Routine [facility] NaCl 0.9% (NS) injection 10 mL 04-06 11:19: 41 Yes 10mL 10 mL, Slow IV Push, PRN, Starting on Tue04/06/22 at 0619, Until Discontinu ed, Routine, line maintenanc e [facility] lidocaine 1% (PF) (XYLOCAINE) injection 5 mL 04-06 11:19: 41 Yes 5mL 5 mL, Subcutaneo us, PRN, Starting on Tue04/06/22 at 0619, Until Discontinu ed, Routine, Local anesthesia [facility] predniSONE (DELTASONE) tablet 40 mg 04-05 14:00: 00 04-05 13:22 :00 No 40mg 40 mg, Oral, DAILY, 1 dose, First dose (after last modificati on) on 04/05/22 at 0900, Routine [facility] divalproex (DEPAKOTE) EC tablet 1,500 mg 04-04 16:30: 00 Yes 1500mg 1,500 mg, Oral, Q12H, First dose on 04/04/22 at 1130, Until Discontinu ed, Routine [facility] risperiDONE (RISPERDAL) tablet 1 mg 04-04 04:00: 00 Yes 1mg 1 mg, Oral, BID, First dose (after last modificati on) on 04/03/22 at 2300, Until Discontinu ed, Routine [facility] melatonin (MELATIN) tablet 3 mg 04-04 02:00: 00 Yes [id number] 3mg 3 mg, Oral, QHS, First dose on 04/03/22 at 2100, Until Discontinu ed, Routine [facility] pantoprazol e (PROTONIX) EC tablet 40 mg 04-01 14:00: 00 Yes 40mg 40 mg, Oral, DAILY, First dose on [place] 04/01/22 at 0900, Until Discontinu ed, Routine [facility] lisinopriL (PRINIVIL,Z ESTRIL) tablet 40 mg 04-01 14:00: 00 Yes 40mg 40 mg, Oral, DAILY, First dose on [facility] 04/01/22 at 0900, Until Discontinu ed [facility] predniSONE (DELTASONE) tablet 40 mg 04-01 14:00: 00 04-05 11:56 :20 No 40mg 40 mg, Oral, DAILY, First dose (after last modificati on) on [place] 04/01/22 at 0900, Until Discontinu ed, Routine [facility] acetaminoph en ADULT (OFIRMEV) injection 1,000 mg 04-01 07:00: 00 04-01 06:43 :00 No 1000mg 1,000 mg, IV Infusion, at 400 mL/hr Administer over 15 Minutes, ONCE NOW, 1 dose, On Tue04/01/22 at 0200, Routine
Indicatio n: Non-periop erative Patient
Approved by: Per Policy (NPO Status) [facility] hydralAZINE (APRESOLINE ) injection 5 mg 04-01 06:12: 29 Yes 5mg 5 mg, Slow IV Push, Q4HPRN, Starting on Tue04/01/22 at 0112, Until Discontinu ed, Routine, DBP=>100; SBP=>160 [facility] valproate (DEPACON) 1,500 mg in D5W piggyback 04-01 05:00: 00 04-04 16:15 :56 No 1500mg 1,500 mg, IV Piggyback, Q12HA1, First dose on Tue04/01/22 at 0000, Until Discontinu ed, Administer over 60 Minutes, 100 mL [facility] atorvastati n (LIPITOR) tablet 20 mg 04-01 02:00: 00 Yes 20mg 20 mg, Oral, QHS, First dose on Tue03/31/22 at 2100, Until Discontinu ed, Routine [facility] amLODIPine (NORVASC) tablet 10 mg 04-01 02:00: 00 Yes 10mg 10 mg, Oral, QHS, First dose on Tue03/31/22 at 2100, Until Discontinu ed, Routine [facility] heparin (porcine) injection 5,000 Units 04-01 01:00: 00 Yes 5000U 5,000 Units, Subcutaneo us, Q12H, First dose on Tue03/31/22 at 2000, Until Discontinu ed, Routine [facility] risperiDONE (RisperDAL M-TAB) disintegrat ing tablet 1 mg 04-01 01:00: 00 04-04 03:55 :54 No 1mg 1 mg, Oral, BID, First dose on Tue03/31/22 at 2000, Until Discontinu ed, Routine [facility] diphenhydrA MINE (BENADRYL) injection 25 mg 2022-0 9-07 23:15: 00 04-01 07:16 :00 No 25mg 25 mg, Slow IV Push, ONCE, 1 dose, On Tue03/31/22 at 1815, Routine [facility] acetaminoph en (TYLENOL) tablet 325 mg 03-31 22:35: 02 Yes 325mg 325 mg, Oral, Q6HPRN, Starting on Tue03/31/22 at 1735, Until Discontinu ed, Routine, Pain (scale 1-3) [facility] carvediloL (COREG) tablet 25 mg 03-31 22:00: 00 Yes 25mg 25 mg, Oral, BID MEALS, First dose on Tue03/31/22 at 1700, Until Discontinu ed, Routine [facility] azaTHIOprin e (IMURAN) tablet 50 mg 03-31 17:15: 00 04-05 16:03 :26 No 50mg 50 mg, Oral, DAILY, First dose (after last modificati on) on Tue03/31/22 at 1215, Until Discontinu ed, Routine [facility] fosphenytoi n (CEREBYX) 998 mg PE in NaCl 0.9% (NS) piggyback 03-31 17:00: 00 03-31 18:04 :00 No 10mg{ph enytoin 'equiva lent}/k g 998 mg PE (10 mg PE/kg ?99.8 kg), IV Piggyback, ONCE, 1 dose, On Tue03/31/22 at 1200, Administer over 30 Minutes, 100 mL [facility] divalproex ER (DEPAKOTE ER) 24 hr tablet 1,500 mg 03-31 16:45: 00 04-01 03:40 :07 No 1500mg 1,500 mg, Oral, BID, First dose on Tue03/31/22 at 1145, Until Discontinu ed, Routine [facility] NaCl 0.9% (NS) IV infusion 1,000 mL 03-31 16:30: 00 Yes 1000mL at 50 mL/hr, IV Infusion, CONTINUOUS , Starting on Tue03/31/22 at 1130, Until Discontinu ed, Routine [facility] iopamidol (ISOVUE 370-500 mL) injection 130 mL 03-31 16:30: 00 03-31 15:25 :00 No [id number] 130mL 130 mL, Intravenou s, ONCE, 1 dose, On Tue03/31/22 at 1130, Routine [facility] acetaminoph en (TYLENOL) tablet 650 mg 03-31 16:20: 10 Yes 650mg 650 mg, Oral, Q6HPRN, Starting on Tue03/31/22 at 1120, Until Discontinu ed, Routine, Pain (scale 4-6) [facility] docusate (COLACE) capsule 100 mg 03-31 16:20: 10 Yes 100mg 100 mg, Oral, QDAILYPRN, Starting on Tue03/31/22 at 1120, Until Discontinu ed, Routine, Constipati on [facility] hydrOXYzine (ATARAX) 10 mg/5 mL solution 10 mg 03-31 16:19: 24 Yes 10mg 10 mg, Oral, Q6HPRN, Starting on Tue03/31/22 at 1119, Until Discontinu ed, Routine, Anxiety [facility] NEISHA ASPIRIN ORAL 03-31 11:23: 20 03-31 00:00 :00 No 81mg Take 81 mg by mouth daily. [facility] Sennosides (EX-LAX MAXIMUM STRENGTH) 25 mg Tab 03-31 11:23: 20 03-31 00:00 :00 No Take by mouth. [facility] OMEPRAZOLE/ SODIUM BICARBONATE (ZEGERID OTC ORAL) 03-11 12:21: 33 03-11 00:00 :00 No Take by mouth. [facility] pantoprazol e 40 mg EC tablet 03-11 00:00: 00 08-12 00:00 :00 No [id number] 40mg Take 1 tablet by mouth in the morning. [facility] predniSONE 20 mg tablet 03-11 00:00: 00 04-07 00:00 :00 No [id number] 20mg Take 1 tablet by mouth in the morning for 90 days. [facility] amoxicillin -clavulanat e (AUGMENTIN) 875-125 mg per tablet 03-05 00:00: 00 03-31 00:00 :00 No [id number] 1{tbl} Take 1 tablet by mouth in the morning and 1 tablet in the evening. [facility] azaTHIOprin e 50 mg tablet 02-28 00:00: 00 03-11 00:00 :00 No [id number] 50mg Take 1 tablet by mouth in the morning. [facility] lisinopriL 40 mg tablet 02-21 08:35: 01 Yes 40mg Take 40 mg by mouth in the morning. [facility] ferrous sulfate 325 mg (65 mg iron) tablet 02-20 00:00: 00 08-12 00:00 :00 No [id number] 325mg Take 1 tablet by mouth every other day. [facility] carvedilol (COREG) 25 mg tablet 02-19 20:35: 38 Yes 25mg Take 25 mg by mouth 2 (two) times daily with meals. [facility] omega-3s-dh a-epa-fish oil-D3 (FISH OIL-VIT D3) 360 mg-1,200 mg -1,000 unit Cap 02-19 20:35: 38 Yes Take by mouth. [facility] MULTIVITS-M INERALS/FA/ LYCOPENE (ONE-A-DAY MEN'S MULTIVITAMI N ORAL) 02-19 20:35: 38 Yes 81mg Take by mouth. [facility] atorvastati n (LIPITOR) 20 mg tablet 02-19 20:35: 38 Yes 20mg Take 20 mg by mouth at bedtime. [facility] Sennosides (EX-LAX MAXIMUM STRENGTH) 25 mg Tab 02-19 20:35: 38 Yes Take by mouth. [facility] ibuprofen (ADVIL) 200 mg tablet 02-19 20:35: 38 Yes 200mg Take 200 mg by mouth 2 (two) times daily with meals. [facility] vitamin B-12 100 mcg tablet 02-19 20:35: 38 Yes 2500ug Take 2,500 mcg by mouth daily. [facility] hydrOXYzine 10 mg/5 mL solution 02-19 00:00: 00 08-12 00:00 :00 No [id number] 10mg Take 5 mL by mouth every 6 (six) hours as needed for Anxiety. [facility] divalproex ER 500 mg 24 hr tablet 02-19 00:00: 00 04-09 00:00 :00 No [id number] 1000mg Take 2 tablets by mouth in the morning and 2 tablets in the evening. [facility] risperiDONE 1 mg disintegrat ing tablet 02-19 00:00: 00 04-09 00:00 :00 No [id number] 1mg Take 1 tablet by mouth in the morning and 1 tablet in the evening. [facility] amLODIPine 10 mg tablet 02-19 00:00: 00 04-09 00:00 :00 No [id number] 10mg Take 1 tablet by mouth at bedtime for 90 days. [facility] predniSONE 5 mg tablet 02-19 00:00: 00 03-11 00:00 :00 No [id number] Take 8 tablets by mouth daily for 3 days, THEN 6 tablets daily for 3 days, THEN 4 tablets daily for 3 days, THEN 3 tablets daily for 3 days, THEN 1.5 tablets daily for 100 days. [facility] Topiramate 25 MG Topiramate 25 MG 04-17 00:00: 00 No 1{table t} QD Topiramate 25 MG Cipro 500 MG Cipro 500 MG 04-17 00:00: 00 04-27 00:00 :00 No 1{table t} BID Cipro 500 MG butalbital- acetaminoph en-caff 50-325-40 mg tablet 04-11 00:00: 03-31 00:00 :00 No [id number] 1{tbl} Take 1 tablet by mouth every 6 (six) hours as needed for Pain (scale 7-10). [facility] ProAir HFA 108 (90 Base) MCG/ACT [...] 04-19 00:00: 00 08-12 00:00 :00 No [id number] 500mg Take 1 tablet by mouth 2 (two) times daily with meals. [facility] BusPIRone HCl BusPIRone HCl Yes Kika Valdez TAKE ONE TABLET BY MOUTH TWICE A DAY [facility] Metformin HCl 850 MG Metformin HCl [...] Value Comments S ource Systolic blood pressure 2024-06-16 17:58:00 130 mm[Hg] [facility] Diastolic blood pressure 2024-06-16 17:58:00 76 mm[Hg] [facility] Heart rate 2024-06-16 17:58:00 65 /min [facility] Body temperature 2024-06-16 17:58:00 35.61 Rox [facility] Oxygen saturation in Arterial blood by Pulse oximetry 2024-06-16 17:58:00 96 /min [facility] Respiratory rate 2024-06-16 13:30:00 18 /min [facility] Body height 2024-06-16 13:30:00 195.6 cm [facility] Body weight 2024-06-16 13:30:00 117.935 kg [facility] BMI 2024-06-16 13:30:00 30.83 kg/m2 [facility] Systolic blood pressure 2024-06-08 17:48:00 146 mm[Hg] [facility] Diastolic blood pressure 2024-06-08 17:48:00 87 mm[Hg] [facility] Heart rate 2024-06-08 17:48:00 71 /min [facility] Body temperature 2024-06-08 17:48:00 36.61 Rox [facility] Respiratory rate 2024-06-08 17:48:00 19 /min [facility] Body height 2024-06-08 17:48:00 195.6 cm [facility] Body weight 2024-06-08 17:48:00 117.935 kg [facility] BMI 2024-06-08 17:48:00 30.83 kg/m2 [facility] Oxygen saturation in Arterial blood by Pulse oximetry 2024-06-08 17:48:00 96 /min [facility] Systolic blood pressure 2024-06-05 17:12:00 136 mm[Hg] [facility] Diastolic blood pressure 2024-06-05 17:12:00 79 mm[Hg] [facility] Heart rate 2024-06-05 17:12:00 61 /min [facility] Body temperature 2024-06-05 17:12:00 36.11 Rox [facility] Respiratory rate 2024-06-05 17:12:00 18 /min [facility] Body weight 2024-06-05 17:12:00 117.935 kg [facility] BMI 2024-06-05 17:12:00 31.65 kg/m2 [facility] Oxygen saturation in Arterial blood by Pulse oximetry 2024-06-05 17:12:00 98 /min [facility] Body height 2024-06-05 13:43:00 193 cm [facility] Body weight 2024-05-22 13:14:00 115.667 kg [facility] BMI 2024-05-22 13:14:00 31.04 kg/m2 [facility] Body weight 2024-05-14 18:20:00 115.667 kg [facility] BMI 2024-05-14 18:20:00 31.04 kg/m2 [facility] Systolic blood pressure 2024-05-14 13:06:00 133 mm[Hg] [facility] Diastolic blood pressure 2024-05-14 13:06:00 84 mm[Hg] [facility] Heart rate 2024-05-14 13:04:00 74 /min [facility] Body height 2024-05-14 13:04:00 193 cm [facility] Body weight 2024-05-14 13:04:00 115.667 kg [facility] BMI 2024-05-14 13:04:00 31.04 kg/m2 [facility] Oxygen saturation in Arterial blood by Pulse oximetry 2024-05-14 13:04:00 98 /min [facility] Body weight 2024-05-08 15:09:00 115.667 kg [facility] BMI 2024-05-08 15:09:00 30.24 kg/m2 [facility] Systolic blood pressure 2024-05-01 14:13:00 123 mm[Hg] [facility] Diastolic blood pressure 2024-05-01 14:13:00 75 mm[Hg] [facility] Heart rate 2024-05-01 14:13:00 63 /min [facility] Respiratory rate 2024-05-01 14:13:00 18 /min [facility] Body height 2024-05-01 14:13:00 195.6 cm [facility] Body weight 2024-05-01 14:13:00 115.939 kg [facility] BMI 2024-05-01 14:13:00 30.31 kg/m2 [facility] Oxygen saturation in Arterial blood by Pulse oximetry 2024-05-01 14:13:00 99 /min [facility] Systolic blood pressure 2024-04-13 13:36:00 137 mm[Hg] [facility] Diastolic blood pressure 2024-04-13 13:36:00 79 mm[Hg] [facility] Heart rate 2024-04-13 13:36:00 61 /min [facility] Body temperature 2024-04-13 13:36:00 36.56 Rox [facility] Body height 2024-04-13 13:36:00 193 cm [facility] Body weight 2024-04-13 13:36:00 115.667 kg [facility] BMI 2024-04-13 13:36:00 31.04 kg/m2 [facility] Oxygen saturation in Arterial blood by Pulse oximetry 2024-04-13 13:36:00 100 /min [facility] Systolic blood pressure 2024-04-03 19:02:00 112 mm[Hg] [facility] Diastolic blood pressure 2024-04-03 19:02:00 71 mm[Hg] [facility] Heart rate 2024-04-03 19:02:00 77 /min [facility] Body temperature 2024-04-03 19:02:00 36 Rox [facility] Respiratory rate 2024-04-03 19:02:00 18 /min [facility] Body height 2024-04-03 19:02:00 193 cm [facility] Body weight 2024-04-03 19:02:00 117.935 kg [facility] BMI 2024-04-03 19:02:00 31.65 kg/m2 [facility] Oxygen saturation in Arterial blood by Pulse oximetry 2024-04-03 19:02:00 96 /min [facility] Systolic blood pressure 2024-03-27 21:19:00 146 mm[Hg] [facility] Diastolic blood pressure 2024-03-27 21:19:00 87 mm[Hg] [facility] Heart rate 2024-03-27 21:19:00 73 /min [facility] Body height 2024-03-27 21:19:00 193 cm [facility] Body weight 2024-03-27 21:19:00 118.117 kg [facility] BMI 2024-03-27 21:19:00 31.70 kg/m2 [facility] Oxygen saturation in Arterial blood by Pulse oximetry 2024-03-27 21:19:00 97 /min [facility] Systolic blood pressure 2024-03-14 18:09:00 138 mm[Hg] [facility] Diastolic blood pressure 2024-03-14 18:09:00 82 mm[Hg] [facility] Heart rate 2024-03-14 18:08:00 89 /min [facility] Body height 2024-03-14 18:08:00 193 cm [facility] Body weight 2024-03-14 18:08:00 129.729 kg [facility] BMI 2024-03-14 18:08:00 34.81 kg/m2 [facility] Oxygen saturation in Arterial blood by Pulse oximetry 2024-03-14 18:08:00 97 /min [facility] Body weight 2024-03-02 16:17:00 126.1 kg [facility] BMI 2024-03-02 16:17:00 33.84 kg/m2 [facility] Systolic blood pressure 2024-02-15 17:20:00 148 mm[Hg] [facility] Diastolic blood pressure 2024-02-15 17:20:00 83 mm[Hg] [facility] Heart rate 2024-02-15 15:43:00 58 /min [facility] Body temperature 2024-02-15 15:43:00 37 Rox [facility] Respiratory rate 2024-02-15 15:43:00 18 /min [facility] Oxygen saturation in Arterial blood by Pulse oximetry 2024-02-15 15:43:00 97 /min [facility] Body height 2024-02-15 03:48:00 193 cm [facility] Body weight 2024-02-15 03:48:00 131.543 kg [facility] BMI 2024-02-15 03:48:00 35.30 kg/m2 [facility] Systolic blood pressure 2024-02-13 20:15:00 139 mm[Hg] [facility] Diastolic blood pressure 2024-02-13 20:15:00 74 mm[Hg] [facility] Heart rate 2024-02-13 20:15:00 68 /min [facility] Body temperature 2024-02-13 20:15:00 36.61 Rox [facility] Respiratory rate 2024-02-13 20:15:00 16 /min [facility] Oxygen saturation in Arterial blood by Pulse oximetry 2024-02-13 20:15:00 97 /min [facility] Body height 2024-01-23 06:00:00 190.5 cm from nurse visit 5. [facility] Body weight 2024-01-23 06:00:00 131.9 kg weight from nurse visit on 12.05.23 [facility] BMI 2024-01-23 06:00:00 36.35 kg/m2 [facility] Systolic blood pressure 2024-02-03 13:47:00 122 mm[Hg] [facility] Diastolic blood pressure 2024-02-03 13:47:00 83 mm[Hg] [facility] Heart rate 2024-02-03 13:47:00 85 /min [facility] Body temperature 2024-02-03 13:47:00 36 Rox [facility] Respiratory rate 2024-02-03 13:47:00 16 /min [facility] Oxygen saturation in Arterial blood by Pulse oximetry 2024-02-03 13:47:00 100 /min [facility] Body height 2024-01-23 06:00:00 190.5 cm from nurse visit 12.05.23 [facility] Body weight 2024-01-23 06:00:00 131.9 kg weight from nurse visit on 12.05.23 [facility] BMI 2024-01-23 06:00:00 36.35 kg/m2 [facility] Systolic blood pressure 2023-12-02 14:56:00 159 mm[Hg] [facility] Diastolic blood pressure 2023-12-02 14:56:00 93 mm[Hg] [facility] Heart rate 2023-12-02 14:56:00 71 /min [facility] Body temperature 2023-12-02 14:56:00 36.56 Rox [facility] Respiratory rate 2023-12-02 14:56:00 19 /min [facility] Oxygen saturation in Arterial blood by Pulse oximetry 2023-12-02 14:56:00 96 /min [facility] Body height 2023-12-02 12:23:00 190.5 cm [facility] Body weight 2023-12-02 12:23:00 131.906 kg [facility] BMI 2023-12-02 12:23:00 36.35 kg/m2 [facility] Systolic blood pressure 2023-11-25 13:52:00 155 mm[Hg] [facility] Diastolic blood pressure 2023-11-25 13:52:00 93 mm[Hg] [facility] Heart rate 2023-11-25 13:52:00 69 /min [facility] Body temperature 2023-11-25 13:51:00 36.56 Rox [facility] Respiratory rate 2023-11-25 13:51:00 16 /min [facility] Body height 2023-11-25 13:51:00 190.5 cm [facility] Body weight 2023-11-25 13:51:00 132.042 kg [facility] BMI 2023-11-25 13:51:00 36.39 kg/m2 [facility] Oxygen saturation in Arterial blood by Pulse oximetry 2023-11-25 13:51:00 98 /min ra [facility] Body weight 2023-08-16 15:05:00 135.172 kg [facility] BMI 2023-08-16 15:05:00 35.34 kg/m2 [facility] Systolic blood pressure 2023-07-26 20:54:00 146 mm[Hg] [facility] Diastolic blood pressure 2023-07-26 20:54:00 94 mm[Hg] [facility] Heart rate 2023-07-26 20:54:00 73 /min [facility] Body temperature 2023-07-26 20:53:00 36.61 Rox [facility] Respiratory rate 2023-07-26 20:53:00 20 /min [facility] Body height 2023-07-26 20:53:00 195.6 cm [facility] Body weight 2023-07-26 20:53:00 135.58 kg [facility] BMI 2023-07-26 20:53:00 35.44 kg/m2 [facility] Oxygen saturation in Arterial blood by Pulse oximetry 2023-07-26 20:53:00 97 /min [facility] Body weight 2023-06-14 16:00:00 129.275 kg [facility] BMI 2023-06-14 16:00:00 34.69 kg/m2 [facility] Systolic blood pressure 2023-06-03 17:21:00 149 mm[Hg] [facility] Diastolic blood pressure 2023-06-03 17:21:00 72 mm[Hg] [facility] Heart rate 2023-06-03 17:21:00 67 /min [facility] Body temperature 2023-06-03 17:21:00 36.67 Rox [facility] Respiratory rate 2023-06-03 17:21:00 18 /min [facility] Oxygen saturation in Arterial blood by Pulse oximetry 2023-06-03 17:21:00 96 /min [facility] Body height 2023-06-03 14:12:00 193 cm [facility] Body weight 2023-06-03 14:12:00 129.366 kg [facility] BMI 2023-06-03 14:12:00 34.72 kg/m2 [facility] Systolic blood pressure 2023-05-27 19:43:00 168 mm[Hg] [facility] Diastolic blood pressure 2023-05-27 19:43:00 102 mm[Hg] [facility] Heart rate 2023-05-27 19:42:00 81 /min [facility] Body temperature 2023-05-27 19:42:00 37.28 Rox [facility] Respiratory rate 2023-05-27 19:42:00 20 /min [facility] Body height 2023-05-27 19:42:00 193 cm [facility] Body weight 2023-05-27 19:42:00 131.09 kg [facility] BMI 2023-05-27 19:42:00 35.18 kg/m2 [facility] Oxygen saturation in Arterial blood by Pulse oximetry 2023-05-27 19:42:00 97 /min [facility] Systolic blood pressure 2023-03-21 19:00:00 145 mm[Hg] [facility] Diastolic blood pressure 2023-03-21 19:00:00 77 mm[Hg] [facility] Heart rate 2023-03-21 19:00:00 71 /min [facility] Body temperature 2023-03-21 19:00:00 38.39 Rox [facility] Respiratory rate 2023-03-21 19:00:00 20 /min [facility] Oxygen saturation in Arterial blood by Pulse oximetry 2023-03-21 13:00:00 94 /min [facility] Body height 2023-03-21 06:00:00 195.6 cm [facility] Body weight 2023-03-20 22:13:00 125.193 kg [facility] BMI 2023-03-20 22:13:00 32.73 kg/m2 [facility] Systolic blood pressure 2023-02-16 16:15:00 114 mm[Hg] [facility] Diastolic blood pressure 2023-02-16 16:15:00 60 mm[Hg] [facility] Heart rate 2023-02-16 16:15:00 80 /min [facility] Body temperature 2023-02-16 16:15:00 36.5 Rox [facility] Respiratory rate 2023-02-16 16:15:00 17 /min [facility] Oxygen saturation in Arterial blood by Pulse oximetry 2023-02-16 16:15:00 94 /min [facility] Body weight 2023-02-14 18:00:00 120 kg [facility] BMI 2023-02-14 18:00:00 31.37 kg/m2 [facility] Body height 2023-02-14 04:21:00 195.6 cm [facility] Systolic blood pressure 2023-01-18 18:25:00 144 mm[Hg] [facility] Diastolic blood pressure 2023-01-18 18:25:00 85 mm[Hg] [facility] Heart rate 2023-01-18 18:25:00 90 /min [facility] Body temperature 2023-01-18 18:25:00 35.83 Rox [facility] Body height 2023-01-18 18:25:00 180.3 cm [facility] Body weight 2023-01-18 18:25:00 123.378 kg [facility] BMI 2023-01-18 18:25:00 37.94 kg/m2 [facility] Oxygen saturation in Arterial blood by Pulse oximetry 2023-01-18 18:25:00 96 /min [facility] Body weight 2022-12-14 15:26:00 121.11 kg [facility] BMI 2022-12-14 15:26:00 32.50 kg/m2 [facility] Systolic blood pressure 2022-12-01 20:22:00 139 mm[Hg] [facility] Diastolic blood pressure 2022-12-01 20:22:00 80 mm[Hg] [facility] Heart rate 2022-12-01 20:22:00 66 /min [facility] Respiratory rate 2022-12-01 20:22:00 18 /min [facility] Oxygen saturation in Arterial blood by Pulse oximetry 2022-12-01 20:22:00 98 /min [facility] Body temperature 2022-12-01 13:57:00 36.33 Rox [facility] Body height 2022-12-01 13:57:00 193 cm [facility] Body weight 2022-12-01 13:57:00 121.11 kg [facility] BMI 2022-12-01 13:57:00 32.50 kg/m2 [facility] Systolic blood pressure 2022-10-26 12:36:00 143 mm[Hg] [facility] Diastolic blood pressure 2022-10-26 12:36:00 88 mm[Hg] [facility] Heart rate 2022-10-26 12:36:00 59 /min [facility] Oxygen saturation in Arterial blood by Pulse oximetry 2022-10-26 12:36:00 100 /min [facility] Body temperature 2022-10-26 12:34:00 36.72 Rox [facility] Respiratory rate 2022-10-26 12:34:00 16 /min [facility] Body height 2022-10-25 13:48:00 193 cm [facility] Body weight 2022-10-25 13:48:00 118.842 kg [facility] BMI 2022-10-25 13:48:00 31.89 kg/m2 [facility] Systolic blood pressure 2022-06-10 16:10:00 137 mm[Hg] [facility] Diastolic blood pressure 2022-06-10 16:10:00 89 mm[Hg] [facility] Heart rate 2022-06-10 16:09:00 84 /min [facility] Body temperature 2022-06-10 16:09:00 36.06 Rox [facility] Respiratory rate 2022-06-10 16:09:00 19 /min [facility] Body height 2022-06-10 16:09:00 193 cm [facility] Body weight 2022-06-10 16:09:00 108.138 kg [facility] BMI 2022-06-10 16:09:00 29.02 kg/m2 [facility] Oxygen saturation in Arterial blood by Pulse oximetry 2022-06-10 16:09:00 100 /min [facility] Systolic blood pressure 2022-06-03 18:24:00 129 mm[Hg] [facility] Diastolic blood pressure 2022-06-03 18:24:00 73 mm[Hg] [facility] Heart rate 2022-06-03 18:24:00 68 /min [facility] Respiratory rate 2022-06-03 18:24:00 20 /min [facility] Oxygen saturation in Arterial blood by Pulse oximetry 2022-06-03 18:24:00 99 /min [facility] Body temperature 2022-06-03 14:34:00 36.44 Rox [facility] Body height 2022-06-03 14:34:00 190.5 cm [facility] Body weight 2022-06-03 14:34:00 107.049 kg [facility] BMI 2022-06-03 14:34:00 29.50 kg/m2 [facility] Systolic blood pressure 2022-05-20 21:37:00 141 mm[Hg] [facility] Diastolic blood pressure 2022-05-20 21:37:00 93 mm[Hg] [facility] Heart rate 2022-05-20 21:37:00 53 /min [facility] Respiratory rate 2022-05-20 21:37:00 16 /min [facility] Oxygen saturation in Arterial blood by Pulse oximetry 2022-05-20 21:37:00 99 /min [facility] Body temperature 2022-05-20 14:12:00 36.28 Rox [facility] Body height 2022-05-20 14:12:00 193 cm [facility] Body weight 2022-05-20 14:12:00 101.152 kg [facility] BMI 2022-05-20 14:12:00 27.14 kg/m2 [facility] Systolic blood pressure 2022-05-08 18:04:00 135 mm[Hg] [facility] Diastolic blood pressure 2022-05-08 18:04:00 92 mm[Hg] [facility] Heart rate 2022-05-08 18:04:00 68 /min [facility] Body temperature 2022-05-08 18:04:00 36.72 Rox [facility] Respiratory rate 2022-05-08 18:04:00 19 /min [facility] Oxygen saturation in Arterial blood by Pulse oximetry 2022-05-08 18:04:00 100 /min [facility] Body height 2022-05-05 21:15:00 193 cm [facility] Body weight 2022-05-05 14:17:00 98.884 kg [facility] BMI 2022-05-05 14:17:00 26.54 kg/m2 [facility] Systolic blood pressure 2022-04-10 01:03:00 152 mm[Hg] [facility] Diastolic blood pressure 2022-04-10 01:03:00 102 mm[Hg] [facility] Heart rate 2022-04-10 01:03:00 74 /min [facility] Body temperature 2022-04-10 01:03:00 36.56 Rox [facility] Oxygen saturation in Arterial blood by Pulse oximetry 2022-04-09 21:44:00 98 /min [facility] Respiratory rate 2022-04-09 16:46:00 20 /min [facility] Body height 2022-04-01 03:47:00 193 cm [facility] Body weight 2022-04-01 03:47:00 99.791 kg [facility] BMI 2022-04-01 03:47:00 26.78 kg/m2 [facility] Body height 2022-03-23 15:45:00 193 cm [facility] Body weight 2022-03-23 15:45:00 105.235 kg [facility] BMI 2022-03-23 15:45:00 28.24 kg/m2 [facility] Systolic blood pressure 2022-03-11 15:06:00 149 mm[Hg] [facility] Diastolic blood pressure 2022-03-11 15:06:00 90 mm[Hg] [facility] Heart rate 2022-03-11 15:06:00 71 /min [facility] Body weight 2022-03-11 15:06:00 105.235 kg [facility] BMI 2022-03-11 15:06:00 28.24 kg/m2 [facility] height 2020-08-07 16:40:00 76 [in_i] [facility] weight 2020-08-07 16:40:00 243.2 [lb_av] [facility] temperature 2020-08-07 16:40:00 98.3 [degF] [facility] bmi 2020-08-07 16:40:00 29.6 kg/m2 [facility] oximetry 2020-08-07 16:40:00 98 % [facility] respiratory rate 2020-08-07 16:40:00 16 /min [facility] blood pressure systolic 2020-08-07 16:40:00 139 mm[Hg] [facility] blood pressure diastolic 2020-08-07 16:40:00 71 mm[Hg] [facility] respiratory rate 2020-05-08 09:00:00 16 /min [facility] blood pressure systolic 2020-05-08 09:00:00 128 mm[Hg] [facility] blood pressure diastolic 2020-05-08 09:00:00 72 mm[Hg] [facility] height 2020-05-08 09:00:00 76 [in_i] [facility] weight 2020-05-08 09:00:00 258.8 [lb_av] [facility] temperature 2020-05-08 09:00:00 98.1 [degF] [facility] bmi 2020-05-08 09:00:00 31.5 kg/m2 [facility] oximetry 2020-05-08 09:00:00 98 % [facility] height 2020-04-17 08:20:00 76 [in_i] [facility] weight 2020-04-17 08:20:00 261.6 [lb_av] [facility] temperature 2020-04-17 08:20:00 97.8 [degF] [facility] bmi 2020-04-17 08:20:00 31.84 kg/m2 [facility] oximetry 2020-04-17 08:20:00 98 % [facility] respiratory rate 2020-04-17 08:20:00 16 /min [facility] blood pressure systolic 2020-04-17 08:20:00 126 mm[Hg] [facility] blood pressure diastolic 2020-04-17 08:20:00 80 mm[Hg] [facility] Procedures Procedure Date / Time Performed Performing Clinician Source POCT GLUCOSE (AUTOMATED) 2024-06-16 13:35:00 Mushtaq Singh [facility] MAGNESIUM 2024-06-16 10:50:00 Rosibel Kaur [facility] BASIC METABOLIC PANEL (NA, K , CL, CO2, GLUCOSE, BUN, CREATININE, CA) 2024-06-16 10:50:00 Rosibel Kaur [facility] CBC WITH DIFF 2024-06-16 10:50:00 Rosibel Kaur [facility] POCT GLUCOSE (AUTOMATED) 2024-06-16 03:05:00 Mushtaq Singh [facility] EXTRA TUBE SST 2024-06-16 02:10:00 Mushtaq Singh [facility] CEREBROSPINAL FLUID PROTEIN 2024-06-15 23:00:00 Rosibel Kaurfany [facility] CEREBROSPINAL FLUID GLUCOSE 2024-06-15 23:00:00 Rosibel Kaur Nighat [facility] BODY FLUID DIRECT COUNT 2024-06-15 23:00:00 Rosibel Kaur Nighat [facility] CSF CULTURE 2024-06-15 23:00:00 Rosibel Kaur [facility] POCT GLUCOSE (AUTOMATED) 2024-06-15 22:10:00 Mushtaq Singh [facility] PROTHROMBIN TIME / INR 2024-06-15 21:41:00 [facility] ACTIVATED PARTIAL THRMPLAS BOUBACAR 2024-06-15 21:41:00 [facility] POCT GLUCOSE (AUTOMATED) 2024-06-15 17:38:00 Mushtaq Singh [facility] POCT GLUCOSE (AUTOMATED) 2024-06-15 14:56:00 Mushtaq Singh [facility] MAGNESIUM 2024-06-15 11:01:00 Estuardo Duncan Rosibel [facility] BASIC METABOLIC PANEL (NA, K , CL, CO2, GLUCOSE, BUN, CREATININE, CA) 2024-06-15 11:01:00 Estuardo Duncan Rosibel Nighat [facility] CBC WITH DIFF 2024-06-15 11:01:00 Rosibel Kaur [facility] POCT GLUCOSE (AUTOMATED) 2024-06-15 01:47:00 Mushtaq Singh [facility] POCT GLUCOSE (AUTOMATED) 2024-06-14 22:57:00 Mushtaq Singh [facility] POCT GLUCOSE (AUTOMATED) 2024-06-14 18:59:00 Mushtaq Singh [facility] POCT GLUCOSE (AUTOMATED) 2024-06-14 14:22:00 Mushtaq Singh [facility] MAGNESIUM 2024-06-14 11:38:00 Rosibel Kaur Nighat [facility] BASIC METABOLIC PANEL (NA, K , CL, CO2, GLUCOSE, BUN, CREATININE, CA) 2024-06-14 11:38:00 Rosibel Kaur [facility] CBC WITH DIFF 2024-06-14 11:38:00 Rosibel Kaur [facility] MR CERVICAL SPINE W WO CONTRAST 2024-06-14 10:38:33 Estuardo Duncan Rosibel [facility] POCT GLUCOSE (AUTOMATED) 2024-06-14 02:32:00 Mushtaq Singh [facility] POCT GLUCOSE (AUTOMATED) 2024-06-13 23:10:00 [facility] 2024-06-13 18:38:00 [facility]SE ([facility]OMATED) 2024-06-13 14:24:00 Mushtaq Singh [facility] PHOSPHORUS 2024-06-13 11:07:00 [facility] 2024-06-13 11:07:00 Amanda [facility] BASIC METABOLIC PANEL (NA, K , CL, CO2, GLUCOSE, BUN, CREATININE, CA) 2024-06-13 11:07:00 Kike Patel [facility] CBC WITH DIFF 2024-06-13 11:07:00 [facility]BIT [facility] WO CONTRAST 2024-06-13 09:38:59 Amanda [facility] MR BRAIN W WO CONTRAST 2024-06-13 09:35:07 Amanda [facility] HB ECG ROUTINE & RHYTHM STRIP 2024-06-13 06:52:03 Amanda [facility] CT ANGIOGRAM HEAD 2024-06-13 02:38:00 Amanda [facility] CT ANGIOGRAM NECK 2024-06-13 02:38:00 Kike Patel [facility] AMMONIA, PLASMA 2024-06-13 01:31:00 Haily [facility] CT HEAD WO CONTRAST 2024-06-13 00:03:23 Haily [facility] CREATINE KINASE 2024-06-12 21:26:[facility] C-REACTIVE PROTEIN 2024-06-12 21:26:00 Yifan [facility] HEPATIC FUNCTION PANEL ([id number]) (ALB,T.PRO,BILI T,BU/BC,ALT,AST,ALK PHOS) 2024-06-12 21:26:00 [facility]OLIC PANEL (NA, K , CL, CO2, GLUCOSE, BUN, CREATININE, CA) 2024-06-12 21:26:00 [facility] VALPROIC ACID, FREE 2024-06-12 21:26:00 Yifan [facility] SEDIMENTATION RATE 2024-06-12 21:26:00 [facility] CBC WITH DIFF 2024-06-12 21:26:00 [facility] URINALYSIS 2024-06-12 21:26:00 [facility] OCT, OPTIC NERVE - OU - BOTH EYES 2024-05-22 14:16:15 Isaias De Leon [facility] OCT, RETINA - OU - BOTH EYES 2024-05-22 14:16:01 Adilene Levy [facility] OCT, OPTIC NERVE - OU - BOTH EYES 2024-05-08 15:07:59 Dorian Lazarorolfechristie [facility] AUTOMATED VISUAL FIELD, EXTENDED - OU - BOTH EYES 2024-05-08 15:03:06 Zen Lazaro [facility] COMP. METABOLIC PANEL ([id number]) 2024-05-01 15:36:00 Chinmay Gonzalez [facility] CBC WITH DIFF 2024-05-01 15:36:00 Chinmay Gonzalez [facility] OCT, OPTIC NERVE - OU - BOTH EYES 2024-03-02 17:17:04 Carine Bush [facility] EKG-12 LEAD 2024-02-15 10:47:56 Stacy Miramontes [facility] PHOSPHORUS 2024-02-15 05:05:00 Zen Lacey [facility] CREATINE KINASE 2024-02-15 05:05:00 Zen Lacey [facility] MAGNESIUM 2024-02-15 05:05:00 Zen Lacey [facility] COMP. METABOLIC PANEL ([id number]) 2024-02-15 05:05:00 Stacy Miramontes [facility] CBC WITH DIFF 2024-02-15 05:05:00 Stacy Miramontes [facility] POCT GLUCOSE (AUTOMATED) 2024-02-13 22:09:00 Aggie Cai [facility] POCT GLUCOSE (AUTOMATED) 2024-02-13 16:34:00 Aggie Cai [facility] POCT GLUCOSE (AUTOMATED) 2024-02-13 12:47:00 Aggie Cai [facility] POCT GLUCOSE (AUTOMATED) 2024-02-13 00:41:00 Aggie Cai [facility] POCT GLUCOSE (AUTOMATED) 2024-02-12 22:09:00 Aggie Cai [facility] POCT GLUCOSE (AUTOMATED) 2024-02-12 16:56:00 Aggie Cai [facility] POCT GLUCOSE (AUTOMATED) 2024-02-12 13:16:00 Aggie Cai [facility] POCT GLUCOSE (AUTOMATED) 2024-02-12 02:17:00 Aggie Cai [facility] POCT GLUCOSE (AUTOMATED) 2024-02-11 21:47:00 Aggie Cai [facility] POCT GLUCOSE (AUTOMATED) 2024-02-11 16:32:00 Aggie Cai [facility] CBC WITH DIFF 2024-02-11 14:05:00 Kwame Kaplan [facility] POCT GLUCOSE (AUTOMATED) 2024-02-11 13:58:00 Cai, Aggie J [facility] MAGNESIUM 2024-02-11 13:54:00 [facility]OLIC PANEL (NA, K , CL, CO2, GLUCOSE, BUN, CREATININE, CA) 2024-02-11 13:54:00 [facility] 2024-02-11 12:37:00 Aggie Cai [facility] POCT GLUCOSE (AUTOMATED) 2024-02-11 08:52:00 Aggie Cai [facility] POCT GLUCOSE (AUTOMATED) 2024-02-11 00:48:00 Aggie Cai [facility] POCT GLUCOSE (AUTOMATED) 2024-02-10 22:15:00 Aggie Cai [facility] POCT GLUCOSE (AUTOMATED) 2024-02-10 16:26:00 Aggie Cai [facility] POCT GLUCOSE (AUTOMATED) 2024-02-10 12:29:00 Aggie Cai [facility] MAGNESIUM 2024-02-10 10:51:00 [facility]OLIC PANEL (NA, K , CL, CO2, GLUCOSE, BUN, CREATININE, CA) 2024-02-10 10:51:00 Rosarua [facility] CBC WITH DIFF 2024-02-10 10:51:00 [facility] POCT GLUCOSE (AUTOMATED) 2024-02-10 08:49:00 Aggie Cai [facility] POCT GLUCOSE (AUTOMATED) 2024-02-10 04:34:00 Aggie Cai [facility] POCT GLUCOSE (AUTOMATED) 2024-02-10 01:32:00 Aggie Cai [facility] POCT GLUCOSE (AUTOMATED) 2024-02-09 21:17:00 Aggie Cai [facility] POCT GLUCOSE (AUTOMATED) 2024-02-09 17:01:00 Aggie Cai [facility] POCT GLUCOSE (AUTOMATED) 2024-02-09 12:53:00 Aggie Cai [facility] MAGNESIUM 2024-02-09 10:35:00 [facility]OLIC PANEL (NA, K , CL, CO2, GLUCOSE, BUN, CREATININE, CA) 2024-02-09 10:35:00 [facility] WITH DIFF 2024-02-09 10:35:00 Rosaura Gonzales [facility]SE (AUTOMATED) 2024-02-09 08:53:00 Aggie Cai [facility] POCT GLUCOSE (AUTOMATED) 2024-02-09 03:52:00 Aggie Cai [facility] POCT GLUCOSE (AUTOMATED) 2024-02-09 00:27:00 Aggie Cai [facility] POCT GLUCOSE (AUTOMATED) 2024-02-08 22:15:00 Aggie Cai [facility] POCT GLUCOSE (AUTOMATED) 2024-02-08 17:34:00 Aggie Cai [facility] POCT GLUCOSE (AUTOMATED) 2024-02-08 13:39:00 Aggie Cai [facility] MAGNESIUM 2024-02-08 10:43:00 [facility]OLIC PANEL (NA, K , CL, CO2, GLUCOSE, BUN, CREATININE, CA) 2024-02-08 10:43:00 [facility]FF 2024-02-08 10:43:00 [facility] MISCELLANEOUS SEND OUT TEST 2024-02-08 10:43:00 Dagoberto Camacho [facility] POCT GLUCOSE (AUTOMATED) 2024-02-08 07:51:00 Aggie Cai [facility] POCT GLUCOSE (AUTOMATED) 2024-02-08 03:38:00 Aggie Cai [facility] POCT GLUCOSE (AUTOMATED) 2024-02-08 00:47:00 Aggie Cai [facility] POCT GLUCOSE (AUTOMATED) 2024-02-07 22:24:00 Aggie Cai [facility] POCT GLUCOSE (AUTOMATED) 2024-02-07 21:07:00 Aggie Cai [facility] POCT GLUCOSE (AUTOMATED) 2024-02-07 16:54:00 Aggie Cai [facility] POCT GLUCOSE (AUTOMATED) 2024-02-07 12:52:00 Aggie Cai [facility] MAGNESIUM 2024-02-07 09:39:00 Rosaura [facility] BASIC METABOLIC PANEL (NA, K , CL, CO2, GLUCOSE, BUN, CREATININE, CA) 2024-02-07 09:39:00 Rosaura [facility] CBC WITH DIFF 2024-02-07 09:39:00 Rosaura [facility] POCT GLUCOSE (AUTOMATED) 2024-02-07 08:55:00 Aggie Cai [facility] POCT GLUCOSE (AUTOMATED) 2024-02-07 04:15:00 Aggie Cai [facility] POCT GLUCOSE (AUTOMATED) 2024-02-07 01:05:00 Aggie Cai [facility] POCT GLUCOSE (AUTOMATED) 2024-02-06 21:01:00 Aggie Cai [facility] POCT GLUCOSE (AUTOMATED) 2024-02-06 17:02:00 Aggie Cai [facility] POCT GLUCOSE (AUTOMATED) 2024-02-06 17:02:00 Aggie Cai [facility] POCT GLUCOSE (AUTOMATED) 2024-02-06 13:07:00 Aggie Cai [facility] POCT GLUCOSE (AUTOMATED) 2024-02-06 13:07:00 Aggie Cai [facility] MAGNESIUM 2024-02-06 10:58:00 Rosaura [facility] BASIC METABOLIC PANEL (NA, K , CL, CO2, GLUCOSE, BUN, CREATININE, CA) 2024-02-06 10:58:00 Rosaura [facility] CBC WITH DIFF 2024-02-06 10:58:00 Rosaura [facility] MAGNESIUM 2024-02-06 10:58:00 [facility] BASIC METABOLIC PANEL (NA, K , CL, CO2, GLUCOSE, BUN, CREATININE, CA) 2024-02-06 10:58:00 [facility] 2024-02-06 10:58:00 [facility] VAL[facility] FREE 2024-02-06 08:45:00 Lerbarb [facility] VALPROIC ACID, FREE 2024-02-06 08:45:00 [facility]OMATED) 2024-02-06 08:43:00 Aggie Cai [facility] POCT GLUCOSE (AUTOMATED) 2024-02-06 08:43:00 Aggie Cai [facility] POCT GLUCOSE (AUTOMATED) 2024-02-06 04:00:00 Aggie Cai [facility] POCT GLUCOSE (AUTOMATED) 2024-02-06 04:00:00 Aggie Cai [facility] POCT GLUCOSE (AUTOMATED) 2024-02-06 00:45:00 Aggie Cai [facility] POCT GLUCOSE (AUTOMATED) 2024-02-06 00:45:00 Aggie Cai [facility] POCT GLUCOSE (AUTOMATED) 2024-02-05 22:31:00 Aggie Cai [facility] POCT GLUCOSE (AUTOMATED) 2024-02-05 22:31:00 Aggie Cai [facility] POCT GLUCOSE (AUTOMATED) 2024-02-05 17:30:00 Aggie Cai [facility] POCT GLUCOSE (AUTOMATED) 2024-02-05 17:30:00 Aggie Cai [facility] POCT GLUCOSE (AUTOMATED) 2024-02-05 13:10:00 Aggie Cai [facility] POCT GLUCOSE (AUTOMATED) 2024-02-05 13:10:00 Aggie Cai [facility] POCT GLUCOSE (AUTOMATED) 2024-02-05 09:49:00 Aggie Cai [facility] POCT GLUCOSE (AUTOMATED) 2024-02-05 09:49:00 Aggie Cai [facility] MAGNESIUM 2024-02-05 09:23:00 Rosibel Kaur [facility] BASIC METABOLIC PANEL (NA, K , CL, CO2, GLUCOSE, BUN, CREATININE, CA) 2024-02-05 09:23:00 Rosibel Kaur [facility] CBC WITH DIFF 2024-02-05 09:23:00 Rosibel Kaur [facility] MAGNESIUM 2024-02-05 09:23:00 Rosibel Kaur [facility] BASIC METABOLIC PANEL (NA, K , CL, CO2, GLUCOSE, BUN, CREATININE, CA) 2024-02-05 09:23:00 Estuardo Duncan Rosibel [facility] CBC WITH DIFF 2024-02-05 09:23:00 Rosibel Kaur [facility] POCT GLUCOSE (AUTOMATED) 2024-02-05 07:22:00 Aggie Cai [facility] POCT GLUCOSE (AUTOMATED) 2024-02-05 07:22:00 Aggie Cai [facility] POCT GLUCOSE (AUTOMATED) 2024-02-05 04:09:00 Aggie Cai [facility] POCT GLUCOSE (AUTOMATED) 2024-02-05 04:09:00 Aggie Cai [facility] POCT GLUCOSE (AUTOMATED) 2024-02-05 00:58:00 Aggie Cai [facility] POCT GLUCOSE (AUTOMATED) 2024-02-05 00:58:00 Aggie Cai [facility] POCT GLUCOSE (AUTOMATED) 2024-02-04 23:16:00 Aggie Cai [facility] POCT GLUCOSE (AUTOMATED) 2024-02-04 23:16:00 Aggie Cai [facility] POCT GLUCOSE (AUTOMATED) 2024-02-04 21:26:00 Aggie Cai [facility] POCT GLUCOSE (AUTOMATED) 2024-02-04 21:26:00 Aggie Cai [facility] POCT GLUCOSE (AUTOMATED) 2024-02-04 17:54:00 Aggie Cai [facility] POCT GLUCOSE (AUTOMATED) 2024-02-04 17:54:00 Aggie Cai [facility] POCT GLUCOSE (AUTOMATED) 2024-02-04 14:30:00 Aggie Cai [facility] POCT GLUCOSE (AUTOMATED) 2024-02-04 14:30:00 Aggie Cai [facility] XR CHEST 1 VW 2024-02-04 11:47:40 Salud [facility] XR CHEST 1 VW 2024-02-04 11:47:40 Salud [facility] BLOOD CULTURE SCREEN 2024-02-04 11:45:00 Salud [facility] BLOOD CULTURE SCREEN 2024-02-04 11:45:00 Salud [facility] MAGNESIUM 2024-02-04 05:02:00 Macho [facility] BASIC METABOLIC PANEL (NA, K , CL, CO2, GLUCOSE, BUN, CREATININE, CA) 2024-02-04 05:02:00 Macho [facility] CBC WITH DIFF 2024-02-04 05:02:00 Macho [facility] MAGNESIUM 2024-02-04 05:02:00 Macho [facility] BASIC METABOLIC PANEL (NA, K , CL, CO2, GLUCOSE, BUN, CREATININE, CA) 2024-02-04 05:02:00 Macho [facility] CBC WITH DIFF 2024-02-04 05:02:00 Macho Gaviota [facility] POCT GLUCOSE (AUTOMATED) 2024-02-04 01:42:00 Aggie Cai [facility] POCT GLUCOSE (AUTOMATED) 2024-02-04 01:42:00 Aggie Cai [facility] POCT GLUCOSE (AUTOMATED) 2024-02-03 22:40:00 Aggie Cai [facility] POCT GLUCOSE (AUTOMATED) 2024-02-03 22:40:00 Aggie Cai [facility] POCT GLUCOSE (AUTOMATED) 2024-02-03 17:29:00 Aggie Cai [facility] POCT GLUCOSE (AUTOMATED) 2024-02-03 17:29:00 Aggie Cai [facility] FUNGUS (ROUTINE) CULTURE 2024-02-03 13:07:00 Carine Bush [facility] TISSUE CULTURE(AEROBIC/ANAEROBIC) 2024-02-03 13:07:00 Aggie Cai [facility] FUNGUS (ROUTINE) CULTURE 2024-02-03 13:07:00 Carine Bush [facility] TISSUE CULTURE(AEROBIC/ANAEROBIC) 2024-02-03 13:07:00 Aggie Cai [facility] FUNGUS (ROUTINE) CULTURE 2024-02-03 13:05:00 Carine Bush [facility] TISSUE CULTURE(AEROBIC/ANAEROBIC) 2024-02-03 13:05:00 Aggie Cai [facility] FUNGUS (ROUTINE) CULTURE 2024-02-03 13:05:00 Carine Bush [facility] TISSUE CULTURE(AEROBIC/ANAEROBIC) 2024-02-03 13:05:00 Aggie Cai [facility] SURGICAL PATHOLOGY EXAM 2024-02-03 13:05:00 Carine Bush [facility] INTUBATION 2024-02-03 12:34:00 Aminah Watkins [facility] ORBITOTOMY 2024-02-03 12:00:00 Carine Bush [facility] MASS EXCISION 2024-02-03 12:00:00 Carine Bush [facility] ORBITOTOMY 2024-02-03 12:00:00 Carine Bush [facility] MASS EXCISION 2024-02-03 12:00:00 Carine Bush [facility] POCT GLUCOSE (AUTOMATED) 2024-02-03 11:29:[facility] 2024-02-03 11:29:00 Rocío Renteria [facility] MAGNESIUM 2024-02-03 10:30:00 Stefany Chan [facility] COMP. METABOLIC PANEL ([id number]) 2024-02-03 10:30:00 [facility]FF 2024-02-03 10:30:00 Evangelina Chanbrielle [facility] MAGNESIUM 2024-02-03 10:30:00 Dustin [facility] COMP. METABOLIC PANEL ([id number]) 2024-02-03 10:30:00 Sheela Chanbrielle [facility] CBC WITH DIFF 2024-02-03 10:30:00 Dustin [facility] POCT GLUCOSE (AUTOMATED) 2024-02-03 00:50:00 Gautam [facility] POCT GLUCOSE (AUTOMATED) 2024-02-03 00:50:00 Gautam [facility] POCT GLUCOSE (AUTOMATED) 2024-02-02 22:38:00 Gautam [facility] POCT GLUCOSE (AUTOMATED) 2024-02-02 22:38:00 Gautam [facility] POCT GLUCOSE (AUTOMATED) 2024-02-02 17:02:00 Gautam [facility] POCT GLUCOSE (AUTOMATED) 2024-02-02 17:02:00 Gautam [facility] POCT GLUCOSE (AUTOMATED) 2024-02-02 13:37:00 Gautam [facility] POCT GLUCOSE (AUTOMATED) 2024-02-02 13:37:00 Gautam [facility] MAGNESIUM 2024-02-02 11:35:00 Elnaehilda [facility] BASIC METABOLIC PANEL (NA, K , CL, CO2, GLUCOSE, BUN, CREATININE, CA) 2024-02-02 11:35:00 Elti [facility] MAGNESIUM 2024-02-02 11:35:00 Gentry [facility] BASIC METABOLIC PANEL (NA, K , CL, CO2, GLUCOSE, BUN, CREATININE, CA) 2024-02-02 11:35:00 ElDemetrio luke [facility] CBC WITH DIFF 2024-02-02 10:14:00 Demetrio Rinaldi [facility] CBC WITH DIFF 2024-02-02 10:14:00 Demetrio Rinaldi [facility] POCT GLUCOSE (AUTOMATED) 2024-02-02 01:23:00 [facility]) 2024-02-02 01:23:00 [facility] FUNGUS (ROUTINE) CULTURE 2024-02-01 22:50:00 [facility] EYE CULTURE 2024-02-01 22:50:00 Eulogio House [facility] FUNGUS (ROUTINE) CULTURE 2024-02-01 22:50:00 Eulogio House [facility] EYE CULTURE 2024-02-01 22:50:00 [facility] POCT GLUCOSE (AUTOMATED) 2024-02-01 22:02:00 [facility] POCT GLUCOSE (AUTOMATED) 2024-02-01 22:02:00 Gautam [facility] HB ECG ROUTINE & RHYTHM STRIP 2024-02-01 19:30:28 Mirna Leung [facility] HB ECG ROUTINE & RHYTHM STRIP 2024-02-01 19:30:28 Mirna Leung [facility] POCT GLUCOSE (AUTOMATED) 2024-02-01 17:00:00 [facility] POCT GLUCOSE (AUTOMATED) 2024-02-01 17:00:00 [facility]OUT[facility] & RHYTHM STRIP 2024-02-01 16:37:49 Elti [facility] HB ECG ROUTINE & RHYTHM STRIP 2024-02-01 16:37:49 Gentry [facility] CT ABDOMEN PELVIS W CONTRAST 2024-02-01 15:38:[address] El[address] [facility] CT THORAX W CONTRAST 2024-02-01 15:38:10 Elti [facility] CT ABDOMEN PELVIS W CONTRAST 2024-02-01 15:38:10 Elnaeem, [facility] CT THORAX W CONTRAST 2024-02-01 15:38:10 Gentry [facility] POCT GLUCOSE (AUTOMATED) 2024-02-01 14:14:00 [facility] POCT GLUCOSE (AUTOMATED) 2024-02-01 14:14:00 Rocío Renteria [facility] MAGNESIUM 2024-02-01 07:29:00 Stefany Chan [facility] C-REACTIVE PROTEIN 2024-02-01 07:29:00 Elti [facility] THYROID STIMULATING HORMONE 2024-02-01 07:29:00 Eulogio House [facility] BASIC METABOLIC PANEL (NA, K , CL, CO2, GLUCOSE, BUN, CREATININE, CA) 2024-02-01 07:29:00 Stefany Chan [facility] SEDIMENTATION RATE 2024-02-01 07:29:00 Elnaeem [facility] CBC WITH DIFF 2024-02-01 07:29:00 Stefany Chan [facility] ANCA SCREEN 2024-02-01 07:29:00 [facility] MAGNESIUM 2024-02-01 07:29:00 Stefany Chan [facility] C-REACTIVE PROTEIN 2024-02-01 07:29:00 Elnaeem, [facility] THYROID STIMULATING HORMONE 2024-02-01 07:29:00 Eulogio House [facility] BASIC METABOLIC PANEL (NA, K , CL, CO2, GLUCOSE, BUN, CREATININE, CA) 2024-02-01 07:29:00 Stefany Chan [facility] SEDIMENTATION RATE 2024-02-01 07:29:00 Elnaeem, [facility] CBC WITH DIFF 2024-02-01 07:29:00 Stefany Chan [facility] ANCA SCREEN 2024-02-01 07:29:00 Thatikonda, Nithisha [facility] POCT GLUCOSE (AUTOMATED) 2024-02-01 02:28:00 Ed Renteriacarmen [facility] POCT GLUCOSE (AUTOMATED) 2024-02-01 02:28:00 [facility] POCT GLUCOSE (AUTOMATED) 2024-02-01 01:40:00 Gautam [facility] POCT GLUCOSE (AUTOMATED) 2024-02-01 01:40:00 Gautam [facility] POCT GLUCOSE (AUTOMATED) 2024-01-31 22:10:00 Gautam [facility] POCT GLUCOSE (AUTOMATED) 2024-01-31 22:10:00 Gautam [facility] POCT GLUCOSE (AUTOMATED) 2024-01-31 17:08:00 Gautam [facility] POCT GLUCOSE (AUTOMATED) 2024-01-31 17:08:00 Gautam [facility] POCT GLUCOSE (AUTOMATED) 2024-01-31 12:49:00 [facility]autam [facility] POCT GLUCOSE (AUTOMATED) 2024-01-31 12:49:00 [facility]autam [facility] RHEUMATOID FACTOR 2024-01-31 08:06:00 Elti [facility] IMMUNOGLOBULIN G 2024-01-31 08:06:00 Elti [facility] VANCOMYCIN RANDOM LEVEL 2024-01-31 08:06:00 Kike Patel [facility] VALPROIC ACID, FREE 2024-01-31 08:06:00 Stefany Chan [facility] RHEUMATOID FACTOR 2024-01-31 08:06:00 Elti [facility] IMMUNOGLOBULIN G 2024-01-31 08:06:00 Elti [facility] VANCOMYCIN RANDOM LEVEL 2024-01-31 08:06:00 Kike Patel [facility] VALPROIC ACID, FREE 2024-01-31 08:06:00 Stefany Chan [facility] POCT GLUCOSE (AUTOMATED) 2024-01-31 02:30:00 [facility] PO[facility]UCOSE (AUTOMATED) 2024-01-31 02:30:00 [facility] POCT GLUCOSE (AUTOMATED) 2024-01-30 22:39:00 [facility]autam [facility] POCT GLUCOSE (AUTOMATED) 2024-01-30 22:39:00 Gautam [facility] POCT GLUCOSE (AUTOMATED) 2024-01-30 17:36:00 Gautam [facility] POCT GLUCOSE (AUTOMATED) 2024-01-30 17:36:00 Gautam [facility] POCT GLUCOSE (AUTOMATED) 2024-01-30 14:35:00 Gautam [facility] POCT GLUCOSE (AUTOMATED) 2024-01-30 14:35:00 Gautam [facility] LYSOZYME, SERUM 2024-01-30 09:24:00 Salud [facility] ANGIOTENSIN CONVERTING ENZYME 2024-01-30 09:24:00 Salud [facility] MAGNESIUM 2024-01-30 09:24:00 Macho Gaviota [facility] BASIC METABOLIC PANEL (NA, K , CL, CO2, GLUCOSE, BUN, CREATININE, CA) 2024-01-30 09:24:00 Macho Gaviota [facility] CBC WITH DIFF 2024-01-30 09:24:00 Macho Gaviota [facility] MISCELLANEOUS SEND OUT TEST 2024-01-30 09:24:00 Aryan Gallego [facility] LYSOZYME, SERUM 2024-01-30 09:24:00 Salud [facility] ANGIOTENSIN CONVERTING ENZYME 2024-01-30 09:24:00 Salud [facility] MAGNESIUM 2024-01-30 09:24:00 Gaviota Pritchard [facility] BASIC METABOLIC PANEL (NA, K , CL, CO2, GLUCOSE, BUN, CREATININE, CA) 2024-01-30 09:24:00 Macho Gaviota [facility] CBC WITH DIFF 2024-01-30 09:24:00 Macho [facility] MISCELLANEOUS SEND OUT TEST 2024-01-30 09:24:00 Aryan Gallego [facility] POCT GLUCOSE (AUTOMATED) 2024-01-30 04:27:00 [facility] PO[facility] GLUCOSE (AUTOMATED) 2024-01-30 04:27:00 [facility] POCT GLUCOSE (AUTOMATED) 2024-01-30 01:08:00 [facility] POCT GLUCOSE (AUTOMATED) 2024-01-30 01:08:00 Gautam [facility] MR ORBIT W WO CONTRAST 2024-01-30 00:56:58 Macho [facility] MR ORBIT W WO CONTRAST 2024-01-30 00:56:58 Macho [facility] MR BRAIN W WO CONTRAST 2024-01-30 00:54:21 Macho [facility] MR BRAIN W WO CONTRAST 2024-01-30 00:54:21 Macho [facility] POCT GLUCOSE (AUTOMATED) 2024-01-29 22:32:00 [facility]autam [facility] POCT GLUCOSE (AUTOMATED) 2024-01-29 22:32:00 Gautam [facility] FUNGUS (ROUTINE) CULTURE 2024-01-29 21:00:00 Tien, Byanita [facility] EYE CULTURE 2024-01-29 21:00:00 Tien, Byanita [facility] FUNGUS (ROUTINE) CULTURE 2024-01-29 21:00:00 Tien, Byanita [facility] EYE CULTURE 2024-01-29 21:00:00 Tien, Byanita [facility] CEREBROSPINAL FLUID PROTEIN 2024-01-29 20:45:00 Laya Trejo [facility] CEREBROSPINAL FLUID GLUCOSE 2024-01-29 20:45:00 Esperanza Sanchez [facility] FUNGUS (ROUTINE) CULTURE 2024-01-29 20:45:00 Esperanza Sanchez [facility] CSF/UNDERWRITING DIRECTOR SHUNT CULTURE 2024-01-29 20:45:00 Esperanza Sanchez [facility] CRYPTOCOCCAL ANTIGEN CSF/SERUM 2024-01-29 20:45:00 Esperanza Sanchez [facility] MISCELLANEOUS SEND OUT TEST 2024-01-29 20:45:00 Esperanza Sanchez [facility] BODY FLUID DIRECT COUNT 2024-01-29 20:45:00 Esperanza Sanchez [facility] EXTRA TUBE CSF 2024-01-29 20:45:00 Esperanza Sanchez [facility] CSF CULTURE 2024-01-29 20:45:00 Esperanza Sanchez [facility] MENINGITIS/ENCEPHALITIS PANE L BY PCR 2024-01-29 20:45:00 Esperanza Sanchez [facility] MYCOBACTERIUM TUBERCULOSIS COMPLEX PCR 2024-01-29 20:45:00 Liu Flower [facility] CEREBROSPINAL FLUID PROTEIN 2024-01-29 20:45:00 Esperanza Sanchez [facility] CEREBROSPINAL FLUID GLUCOSE 2024-01-29 20:45:00 Esperanza Sanchez [facility] BODY FLUID DIRECT COUNT 2024-01-29 20:45:00 Esperanza Sanchez [facility] FUNGUS (ROUTINE) CULTURE 2024-01-29 20:45:00 Esperanza Sanchez [facility] CSF/UNDERWRITING DIRECTOR SHUNT CULTURE 2024-01-29 20:45:00 Esperanza Sanchez [facility] CRYPTOCOCCAL ANTIGEN CSF/SERUM 2024-01-29 20:45:00 Esperanza Sanchez [facility] MISCELLANEOUS SEND OUT TEST 2024-01-29 20:45:00 Esperanza Sanchez [facility] EXTRA TUBE CSF 2024-01-29 20:45:00 Esperanza Sanchez [facility] CSF CULTURE 2024-01-29 20:45:00 Esperanza Sanchez [facility] MENINGITIS/ENCEPHALITIS PANE L BY PCR 2024-01-29 20:45:00 Esperanza Sanchez [facility] MYCOBACTERIUM TUBERCULOSIS COMPLEX PCR 2024-01-29 20:45:00 Liu Flower [facility] CYTO SPINAL FLUID 2024-01-29 20:42:00 Esperanza Sanchez [facility] CYTO SPINAL FLUID 2024-01-29 20:42:00 Esperanza Sanchez [facility] PROTHROMBIN TIME / INR 2024-01-29 19:00:00 Macho [facility] PROTHROMBIN TIME / INR 2024-01-29 19:00:00 Macho Gaviota [facility] POCT GLUCOSE (AUTOMATED) 2024-01-29 18:39:00 Gautam [facility] POCT GLUCOSE (AUTOMATED) 2024-01-29 18:39:00 Gautam [facility] MISCELLANEOUS SEND OUT TEST 2024-01-29 16:32[facility]00 [facility] 2024-01-29 16:32:00 Adilene Sommers [facility] POCT GLUCOSE (AUTOMATED) 2024-01-29 13:38:00 [facility] POCT GLUCOSE (AUTOMATED) 2024-01-29 13:38:00 Gautam [facility] HISTOPLASMA ABS (ID) 2024-01-29 07:09:00 Adilene Sommers [facility] CBC WITH DIFF 2024-01-29 07:09:00 Adilene Sommers [facility] TOXOPLASMA IGG ANTIBODY 2024-01-29 07:09:00 Matthieu, Mohamed Mostafa Mohamed [facility] ANTI-NUCLEAR ANTIBODY SCREEN 2024-01-29 07:09:00 Elnaeem [facility] ANTI-NUCLEAR ANTIBODY TITER 2024-01-29 07:09:00 Elti [facility] HISTOPLASMA ANTIGEN QUANTITATIVE BY EIA, SERUM 2024-01-29 07:09:00 Aryan Gallego [facility] TOXOPLASMA AB, IGM 2024-01-29 07:09:00 Salud [facility] SYPHILIS IGG/IGM 2024-01-29 07:09:[address] [facility] ANTI-NUCLEAR ANTIBODY-PATHOLOGIST INTERPRETATION 2024-01-29 07:09:00 Elnaehilda [facility] HISTOPLASMA ABS (ID) 2024-01-29 07:09:00 [facility]ene Sommers [facility] CBC WITH DIFF 2024-01-29 07:09:[address] [facility] TOXOPLASMA IGG ANTIBODY 2024-01-29 07:09:00 MatthieuAdilene solis [facility] ANTI-NUCLEAR ANTIBODY SCREEN 2024-01-29 07:09:00 Elnaeem [facility] ANTI-NUCLEAR ANTIBODY TITER 2024-01-29 07:09:00 Elti [facility] HISTOPLASMA ANTIGEN QUANTITATIVE BY EIA, SERUM 2024-01-29 07:09:00 Aryan Gallego [facility] TOXOPLASMA AB, IGM 2024-01-29 07:09:00 Salud [facility] SYPHILIS IGG/IGM 2024-01-29 07:09:[address] [facility] ANTI-NUCLEAR ANTIBODY-PATHOLOGIST INTERPRETATION 2024-01-29 07:09:00 Gentry [facility] POCT GLUCOSE (AUTOMATED) 2024-01-29 06:51:00 Rocío Renteria [facility] POCT GLUCOSE (AUTOMATED) 2024-01-29 06:51:00 Rocío Renteria [facility] MAGNESIUM 2024-01-29 05:47:[address] [facility] BASIC METABOLIC PANEL (NA, K , CL, CO2, GLUCOSE, BUN, CREATININE, CA) 2024-01-29 05:47:[address] [facility] QUANTIFERON-TB ASSAY 2024-01-29 05:47:[address] [facility] HIV 1/2 AG-AB WITH REFLEX 2024-01-29 05:47:00 Aryan Gallego [facility] MAGNESIUM 2024-01-29 05:47:00 MatthieuAdilene mendesrosario [facility] BASIC METABOLIC PANEL (NA, K , CL, CO2, GLUCOSE, BUN, CREATININE, CA) 2024-01-29 05:47:[address] [facility] QUANTIFERON-TB ASSAY 2024-01-29 05:47:00 MatthieuAdilenerosario [facility] HIV 1/2 AG-AB WITH REFLEX 2024-01-29 05:47:00 Aryan Gallego [facility] POCT GLUCOSE (AUTOMATED) 2024-01-29 02:01:00 Gautam [facility] POCT GLUCOSE (AUTOMATED) 2024-01-29 02:01:00 Gautam [facility] POCT GLUCOSE (AUTOMATED) 2024-01-28 18:41:00 Gautam [facility] POCT GLUCOSE (AUTOMATED) 2024-01-28 18:41:00 Gautam [facility] POCT GLUCOSE (AUTOMATED) 2024-01-28 14:18:00 Gautam [facility] POCT GLUCOSE (AUTOMATED) 2024-01-28 14:18:00 Gautam [facility] POCT GLUCOSE (AUTOMATED) 2024-01-28 05:04:00 Gautam, [facility] POCT GLUCOSE (AUTOMATED) 2024-01-28 05:04:00 Gautam [facility] POCT GLUCOSE (AUTOMATED) 2024-01-28 01:46:00 Gautam [facility] POCT GLUCOSE (AUTOMATED) 2024-01-28 01:46:00 Gautam [facility] POCT GLUCOSE (AUTOMATED) 2024-01-27 19:47:00 Gautam [facility] POCT GLUCOSE (AUTOMATED) 2024-01-27 19:47:00 Gautam [facility] HB ECG ROUTINE & RHYTHM STRIP 2024-01-27 18:37:40 Macho [facility] HB ECG ROUTINE & RHYTHM STRIP 2024-01-27 18:37:40 Macho Gaviota [facility] POCT GLUCOSE (AUTOMATED) 2024-01-27 15:46:00 Gautam [facility] POCT GLUCOSE (AUTOMATED) 2024-01-27 15:46:00 Gautam [facility] MAGNESIUM 2024-01-27 09:15:00 Stefany Chan [facility] BASIC METABOLIC PANEL (NA, K , CL, CO2, GLUCOSE, BUN, CREATININE, CA) 2024-01-27 09:15:00 Stefany Chan [facility] CBC WITH DIFF 2024-01-27 09:15:00 Stefany Chan [facility] MAGNESIUM 2024-01-27 09:15:00 Stefany Chan [facility] BASIC METABOLIC PANEL (NA, K , CL, CO2, GLUCOSE, BUN, CREATININE, CA) 2024-01-27 09:15:00 Stefany Chan [facility] CBC WITH DIFF 2024-01-27 09:15:00 Stefany Chan [facility] POCT GLUCOSE (AUTOMATED) 2024-01-27 01:51:00 Gautam [facility] POCT GLUCOSE (AUTOMATED) 2024-01-27 01:51:00 Gautam [facility] POCT GLUCOSE (AUTOMATED) 2024-01-26 22:41:00 Gautam [facility] POCT GLUCOSE (AUTOMATED) 2024-01-26 22:41:00 Gautam [facility] POCT GLUCOSE (AUTOMATED) 2024-01-26 16:51:00 Gautam [facility] POCT GLUCOSE (AUTOMATED) 2024-01-26 16:51:00 Gautam [facility] POCT GLUCOSE (AUTOMATED) 2024-01-26 12:52:00 Mirna [facility] POCT GLUCOSE (AUTOMATED) 2024-01-26 12:52:00 Mirna Hurley [facility] COMP. METABOLIC PANEL (92547) 2024-01-26 08:39:00 Mirna Leung [facility] CBC WITH DIFF 2024-01-26 08:39:00 Mirna Leung [facility] COMP. METABOLIC PANEL ([id number]) 2024-01-26 08:39:00 Mirna Leung [facility] CBC WITH DIFF 2024-01-26 08:39:00 Mirna Leung [facility] POCT GLUCOSE (AUTOMATED) 2024-01-26 01:10:00 Mirna Hurley [facility] POCT GLUCOSE (AUTOMATED) 2024-01-26 01:10:00 Mirna Hurley [facility] POCT GLUCOSE (AUTOMATED) 2024-01-25 21:51:00 Mirna Hurley [facility] POCT GLUCOSE (AUTOMATED) 2024-01-25 21:51:00 Mirna Hurley [facility] POCT GLUCOSE (AUTOMATED) 2024-01-25 17:02:00 Mirna Hurley [facility] POCT GLUCOSE (AUTOMATED) 2024-01-25 17:02:00 Mirna Hurley [facility] POCT GLUCOSE (AUTOMATED) 2024-01-25 13:32:00 Mirna Hurley [facility] POCT GLUCOSE (AUTOMATED) 2024-01-25 13:32:00 Mirna Hurley [facility] MAGNESIUM 2024-01-25 08:17:00 Stefany Chan [facility] BASIC METABOLIC PANEL (NA, K , CL, CO2, GLUCOSE, BUN, CREATININE, CA) 2024-01-25 08:17:00 Stefany Chan [facility] VALPROIC ACID, FREE 2024-01-25 08:17:00 Stefany Chan [facility] CBC WITH DIFF 2024-01-25 08:17:00 Stefany Chan [facility] MAGNESIUM 2024-01-25 08:17:00 Stefany Chan [facility] BASIC METABOLIC PANEL (NA, K , CL, CO2, GLUCOSE, BUN, CREATININE, CA) 2024-01-25 08:17:00 Stefany Chan [facility] VALPROIC ACID, FREE 2024-01-25 08:17:00 Stefany Chan [facility] CBC WITH DIFF 2024-01-25 08:17:00 Stefany Chan [facility] POCT GLUCOSE (AUTOMATED) 2024-01-25 01:52:00 Mirna Hurley [facility] POCT GLUCOSE (AUTOMATED) 2024-01-25 01:52:00 Mirna Hurley [facility] POCT GLUCOSE (AUTOMATED) 2024-01-24 21:05:00 Mirna Hurley [facility] POCT GLUCOSE (AUTOMATED) 2024-01-24 21:05:00 Mirna Hurley [facility] POCT GLUCOSE (AUTOMATED) 2024-01-24 17:10:00 Mirna Hurley [facility] POCT GLUCOSE (AUTOMATED) 2024-01-24 17:10:00 Mirna Hurley [facility] POCT GLUCOSE (AUTOMATED) 2024-01-24 12:26:00 Mirna Hurley [facility] POCT GLUCOSE (AUTOMATED) 2024-01-24 12:26:00 Mirna Hurley [facility] MAGNESIUM 2024-01-24 08:12:00 Stefany Chan [facility] BASIC METABOLIC PANEL (NA, K , CL, CO2, GLUCOSE, BUN, CREATININE, CA) 2024-01-24 08:12:00 Stefany Chan [facility] VALPROIC ACID, FREE 2024-01-24 08:12:00 Demetrio Rinaldi [facility] CBC WITH DIFF 2024-01-24 08:12:00 Stefany Chan [facility] MAGNESIUM 2024-01-24 08:12:00 Stefany Chan [facility] BASIC METABOLIC PANEL (NA, K , CL, CO2, GLUCOSE, BUN, CREATININE, CA) 2024-01-24 08:12:00 Stefany Chan [facility] VALPROIC ACID, FREE 2024-01-24 08:12:00 Demetrio Rinaldi [facility] CBC WITH DIFF 2024-01-24 08:12:00 Stefany Chan [facility] POCT GLUCOSE (AUTOMATED) 2024-01-24 02:32:00 Mirna Hurley [facility] POCT GLUCOSE (AUTOMATED) 2024-01-24 02:32:00 Mirna Hurley [facility] POCT GLUCOSE (AUTOMATED) 2024-01-23 22:28:00 Mirna Hurley [facility] POCT GLUCOSE (AUTOMATED) 2024-01-23 22:28:00 Mirna Hurley [facility] SPUTUM CULTURE 2024-01-23 19:02:00 Elnaeem, [facility] SPUTUM CULTURE 2024-01-23 19:02:00 Elnaeem, [facility] URINALYSIS 2024-01-23 19:01:00 Elnaeem, [facility] URINE CULTURE 2024-01-23 19:01:00 Elnaeem, [facility] URINALYSIS 2024-01-23 19:01:00 Elnaeem, [facility] URINE CULTURE 2024-01-23 19:01:00 Elnaeem, [facility] CT HEAD WO CONTRAST 2024-01-23 18:34:49 Elnaeem, [facility] CT HEAD WO CONTRAST 2024-01-23 18:34:49 Elnaeem, [facility] BLOOD CULTURE SCREEN 2024-01-23 17:08:00 Elnaeem, [facility] AMMONIA, PLASMA 2024-01-23 17:08:00 Elnaeem, [facility] BLOOD CULTURE SCREEN 2024-01-23 17:08:00 Elnaeem, [facility] AMMONIA, PLASMA 2024-01-23 17:08:00 Elnaeem, [facility] XR KUB 2024-01-23 15:32:00 Elnaeem, [facility] XR KUB 2024-01-23 15:32:00 Elnaeem, [facility] POCT GLUCOSE (AUTOMATED) 2024-01-23 13:16:00 Mirna [facility] POCT GLUCOSE (AUTOMATED) 2024-01-23 13:16:00 Mirna Hulrey [facility] AC PANEL 20 + LACTIC ACID 2024-01-23 08:27:00 Mirna Leung [facility] AC PANEL 20 + LACTIC ACID 2024-01-23 08:27:00 Mirna Leung [facility] HEPATIC FUNCTION PANEL (69250) (ALB,T.PRO,BILI T,BU/BC,ALT,AST,ALK PHOS) 2024-01-23 08:26:00 Elnaeem, [facility] VALPROIC ACID, FREE 2024-01-23 08:26:00 Mirna Leung [facility] URINE DRUG (IMMUNOASSAY) - COMPREHENSIVE DRUG SCREEN 2024-01-23 08:26:00 Jay Leungmad [facility] URINE DRUG (LCMSMS) - BENZODIAZEPINES PANEL 2024-01-23 08:26:00 Xochitl Sanchez [facility] HEPATIC FUNCTION PANEL ([id number]) (ALB,T.PRO,BILI T,BU/BC,ALT,AST,ALK PHOS) 2024-01-23 08:26:00 Gentry [facility] VALPROIC ACID, FREE 2024-01-23 08:26:00 Xochitl Sanchez [facility] URINE DRUG (IMMUNOASSAY) - COMPREHENSIVE DRUG SCREEN 2024-01-23 08:26:00 Xochitl Sanchez [facility] URINE DRUG (LCMSMS) - BENZODIAZEPINES PANEL 2024-01-23 08:26:00 Xochitl [facility] XR CHEST 1 VW 2024-01-23 06:25:00 Xochitl [facility] XR CHEST 1 VW 2024-01-23 06:25:00 Xochitl [facility] TROPONIN I 2024-01-23 06:07:00 Xochitl Sanchez [facility] BASIC METABOLIC PANEL (NA, K , CL, CO2, GLUCOSE, BUN, CREATININE, CA) 2024-01-23 06:07:00 Xochitl [facility] CBC WITH DIFF 2024-01-23 06:07:00 Xochitl Sanchez [facility] GLYCOSYLATED HEMOGLOBIN (A1C) 2024-01-23 06:07:00 Xochitl [facility] MRSA / MSSA SCREEN BY JEREMY DE LEON 2024-01-23 06:07:00 Xochitl [facility] TROPONIN I 2024-01-23 06:07:00 Xochitl, Sanchez [facility] BASIC METABOLIC PANEL (NA, K , CL, CO2, GLUCOSE, BUN, CREATININE, CA) 2024-01-23 06:07:00 Xochitl Sanchez [facility] CBC WITH DIFF 2024-01-23 06:07:00 Xochitl Sanchez [facility] GLYCOSYLATED HEMOGLOBIN (A1C) 2024-01-23 06:07:00 Xochitl [facility] MRSA / MSSA SCREEN BY PCRJEREMY 2024-01-23 06:07:00 Xochitl [facility] ELECTROENCEPHALOGRAM 2024-01-23 00:00:00 Xochitl [facility] ELECTROENCEPHALOGRAM 2024-01-23 00:00:00 Xochitl [facility] MR BRAIN W WO CONTRAST 2023-12-08 13:50:52 Chung [facility] AUTOMATED VISUAL FIELD, EXTENDED - OU - BOTH EYES 2023-08-16 16:32:06 Carine Bush [facility] REFERRAL- REQUEST/RESPONSE 2023-07-26 06:01:00 Doctor Unassigned, Protivin [facility] OCT, OPTIC NERVE - OU - BOTH EYES 2023-06-14 16:49:49 Carine Bush [facility] INSURANCE CORRESPONDENCE 2023-06-14 06:01:00 Doctor Unassigned, Protivin [facility] COMP. METABOLIC PANEL ([id number]) 2023-06-03 14:15:00 [facility] 2023-06-03 14:15:00 Chung [facility] CD19 SUBSET ASSAY 2023-06-03 14:15:00 Chung [facility] MINI-MENTAL STATE EXAM 2023-05-27 05:01:00 Doctor Unassigned, Protivin [facility] XR CHEST 1 VW 2023-03-21 08:00:00 Amita Virk [facility] LACTATE DEHYDROGENASE 2023-03-21 06:10:00 Amita Virk [facility] D-DIMER 2023-03-21 06:10:00 Moose [facility] LACTIC ACID WHOLE BLOOD 2023-03-21 02:52:00 Joan Knowles [facility] URINALYSIS 2023-03-21 01:57:00 Joan Knowles [facility] ELECTROENCEPHALOGRAM 2023-03-21 00:00:00 Trish Mondragon [facility] CT HEAD WO CONTRAST 2023-03-20 23:59:18 Joan Knowles [facility] COVID-19 (ID NOW RAPID TESTING) 2023-03-20 22:42:00 Joan Knowles [facility] LAB ONLY COVID INTERPRETATION 2023-03-20 22:42:00 Joan Knowles [facility] BLOOD CULTURE SCREEN 2023-03-20 22:34:00 Joan Knowles [facility] MAGNESIUM 2023-03-20 22:34:00 Joan Knowles [facility] FERRITIN SERUM 2023-03-20 22:34:00 Moose [facility] C-REACTIVE PROTEIN 2023-03-20 22:34:00 Moose [facility] COMP. METABOLIC PANEL ([id number]) 2023-03-20 22:34:00 Joan Knowles [facility] VALPROIC ACID, FREE 2023-03-20 22:34:00 Joan Knowles [facility] CBC WITH DIFF 2023-03-20 22:34:00 Joan Knowles [facility] PROCALCITONIN 2023-03-20 22:34:00 Moose [facility] CONSENT/REFUSAL FOR DIAGNOSI S AND TREATMENT 2023-03-20 22:00:37 Doctor Unassigned, Protivin [facility] EXTERNAL PROVIDER RECORDS 2023-03-03 05:01:00 Doctor Unassigned, Protivin [facility] US DUPLEX VENOUS ARM RIGHT - BY VASCULAR LAB 2023-02-15 20:33:00 eRji Zurita [facility] PHOSPHORUS 2023-02-15 10:20:00 Javi, [facility] MAGNESIUM 2023-02-15 10:20:00 Javi [facility] HEPATIC FUNCTION PANEL ([id number]) (ALB,T.PRO,BILI T,BU/BC,ALT,AST,ALK PHOS) 2023-02-15 10:20:00 Parminder [facility] BASIC METABOLIC PANEL (NA, K , CL, CO2, GLUCOSE, BUN, CREATININE, CA) 2023-02-15 10:20:00 Javi [facility] VALPROIC ACID, FREE 2023-02-15 10:20:00 Parminder [facility] CBC WITH DIFF 2023-02-15 10:20:00 Javi [facility] SYPHILIS IGG/IGM 2023-02-15 10:20:00 Luis Alberto Rosario [facility] POCT GLUCOSE (AUTOMATED) 2023-02-14 21:51:00 [facility] POCT GLUCOSE (AUTOMATED) 2023-02-14 17:31:00 [facility] LOWER EXTREMITY ARTERIAL DUPLEX BILATERAL - BY VASCULAR LAB 2023-02-14 17:26:00 [facility] DUPLEX VENOUS LEGS BILATERAL - BY VASCULAR LAB 2023-02-14 15:59:[address] [facility] CT HEAD WO CONTRAST 2023-02-14 15:30:00 Javi [facility] CT STROKE ANGIOGRAM HEAD 2023-02-14 15:30:00 Javi [facility] CT STROKE ANGIOGRAM NECK 2023-02-14 15:30:00 Javi [facility] THYROID STIMULATING HORMONE 2023-02-14 06:49:00 [facility] BASIC METABOLIC PANEL (NA, K , CL, CO2, GLUCOSE, BUN, CREATININE, CA) 2023-02-14 06:49:00 [facility] CBC WITH DIFF 2023-02-14 06:49:00 [facility] MRSA / MSSA SCREEN BY JEREMY D ELEON 2023-02-14 04:26:00 [facility] OCT, OPTIC NERVE - OU - BOTH EYES 2022-12-14 16:27:57 Carine Bush [facility] AUTOMATED VISUAL FIELD, EXTENDED - OU - BOTH EYES 2022-12-14 16:27:26 Carine Bush [facility] MEDICATION CORRESPONDENCE 2022-12-08 05:01:00 Doctor Unassigned, Protivin [facility] EXTERNAL PROVIDER RECORDS 2022-11-02 05:01:00 Doctor Unassigned, Protivin [facility] AUTHORIZATION FOR RELEASE OF PHI 2022-10-30 05:01:00 Doctor Unassigned, Protivin [facility] POCT GLUCOSE (AUTOMATED) 2022-10-26 13:13:00 David Tavera [facility] POCT GLUCOSE (AUTOMATED) 2022-10-26 01:19:00 David Tavera [facility] POCT GLUCOSE (AUTOMATED) 2022-10-25 22:09:00 David Tavera [facility] AMMONIA, PLASMA 2022-10-25 17:56:00 Desi Robertsshmi [facility] POCT GLUCOSE (AUTOMATED) 2022-10-25 17:29:00 David Tavera [facility] CT HEAD WO CONTRAST 2022-10-25 16:34:36 Desi Robertsshmi [facility] XR CHEST 1 VW 2022-10-25 14:56:00 Desi Robertsshmi [facility] HEPATIC FUNCTION PANEL ([id number]) (ALB,T.PRO,BILI T,BU/BC,ALT,AST,ALK PHOS) 2022-10-25 14:42:00 Desi Roberts Nanda [facility] BASIC METABOLIC PANEL (NA, K , CL, CO2, GLUCOSE, BUN, CREATININE, CA) 2022-10-25 14:42:00 Desi Robertsshmi [facility] VALPROIC ACID, FREE 2022-10-25 14:42:00 Desi Robertsshmi [facility] ETHANOL 2022-10-25 14:42:00 Desi Roberts Nanda [facility] URINE DRUG (IMMUNOASSAY) - COMPREHENSIVE DRUG SCREEN 2022-10-25 14:42:00 Desi Roberts [facility] CBC WITH DIFF 2022-10-25 14:42:00 Desi Roberts [facility] URINALYSIS 2022-10-25 14:42:00 Desi Roberts [facility] EXTRA TUBE URINE CULTURE 2022-10-25 14:42:00 Mushtaq Singh [facility] PROCALCITONIN 2022-10-25 14:42:00 Desi Robertsshmi [facility] ELECTROENCEPHALOGRAM 2022-10-25 00:00:00 Desi Roberts [facility] CONSENT FOR MAGGIE E TREATMENT FORM 2022-09-01 19:16:42 Doctor Unassigned, Protivin [facility] PHYSICIAN ORDERS 2022-05-20 05:01:00 Doctor Unassigned, Protivin [facility] POCT GLUCOSE (AUTOMATED) 2022-05-08 18:06:00 [facility] DUPLEX VENOUS LEGS BILATERAL - BY VASCULAR LAB 2022-05-08 13:35:40 Gauri Smith [facility] POCT GLUCOSE (AUTOMATED) 2022-05-08 13:20:00 [facility] POCT GLUCOSE (AUTOMATED) 2022-05-08 01:07:00 [facility] POCT GLUCOSE (AUTOMATED) 2022-05-07 22:54:00 [facility] BASIC METABOLIC PANEL (NA, K , CL, CO2, GLUCOSE, BUN, CREATININE, CA) 2022-05-07 18:52:00 Christy Taylor [facility] CBC WITH DIFF 2022-05-07 18:52:00 Christy Taylor [facility] POCT GLUCOSE (AUTOMATED) 2022-05-07 13:51:00 Dwaine Cox [facility] MR BRAIN W WO CONTRAST 2022-05-07 03:11:01 Christy Taylor [facility] POCT GLUCOSE (AUTOMATED) 2022-05-07 01:02:00 [facility] POCT GLUCOSE (AUTOMATED) 2022-05-06 21:51:00 [facility] CBC WITH DIFF 2022-05-06 20:54:00 Ramonita Rodrigues [facility] XR CHEST 1 VW 2022-05-06 20:41:00 Ramonita Rodrigues [facility] POCT GLUCOSE (AUTOMATED) 2022-05-06 17:02:00 Dwaine oCx [facility] POCT GLUCOSE (AUTOMATED) 2022-05-06 13:47:00 Dwaine Cox [facility] URINALYSIS 2022-05-06 10:51:00 Desi Roberts [facility] URINE CULTURE 2022-05-06 10:51:00 [facility] 2022-05-06 05:12:00 Desi Roberts Nanda [facility] GALV ONLY - INFLUENZA A B RS V PCR 2022-05-06 05:12:00 Desi Roberts [facility] POCT GLUCOSE (AUTOMATED) 2022-05-06 01:42:00 [facility] POCT GLUCOSE (AUTOMATED) 2022-05-05 22:38:00 [facility] & RHYTHM STRIP 2022-05-05 21:56:24 Dixon Taylorhilary [facility] HEPATIC FUNCTION PANEL ([id number]) (ALB,T.PRO,BILI T,BU/BC,ALT,AST,ALK PHOS) 2022-05-05 19:27:00 Christy Taylor [facility] LIPID PANEL ([id number])(TOTAL CHOLESTEROL, TRIGLYCERIDES, HDL) 2022-05-05 19:27:00 [facility] 2022-05-05 19:27:00 Claudia [facility] GLYCOSYLATED HEMOGLOBIN (A1C) 2022-05-05 19:27:00 [facility] 2022-05-05 16:11:34 Nando [facility] URINALYSIS 2022-05-05 15:17:[address] [facility] CT STROKE PERFUSION W CONTRAST 2022-05-05 15:08:44 [facility] WO CONTRAST 2022-05-05 14:45:05 Nando [facility] CT STROKE ANGIOGRAM HEAD 2022-05-05 14:45:05 N[address] [facility] CT STROKE ANGIOGRAM NECK 2022-05-05 14:45:05 Nando [facility] TROPONIN I 2022-05-05 14:32:00 Nando [facility] BASIC METABOLIC PANEL (NA, K , CL, CO2, GLUCOSE, BUN, CREATININE, CA) 2022-05-05 14:32:00 Nando [facility] CBC WITHOUT DIFF 2022-05-05 14:32:00 Nando [facility] PROTHROMBIN TIME / INR 2022-05-05 14:32:00 Nando [facility] ACTIVATED PARTIAL THRMPLAS BOUBACAR 2022-05-05 14:32:00 Nando [facility] EXTRA TUBE LAV 2022-05-05 14:32:00 N[facility] CONSENT/REFUSAL FOR DIAGNOSI S AND TREATMENT 2022-05-05 14:18:31 Doctor Unassigned, Protivin [facility] ELECTROENCEPHALOGRAM 2022-05-05 00:00:00 Christy Taylor [facility] MAGNESIUM 2022-04-06 08:15:00 Demetrio Rinaldi [facility] BASIC METABOLIC PANEL (NA, K , CL, CO2, GLUCOSE, BUN, CREATININE, CA) 2022-04-06 08:15:00 Elnaeem, [facility] CBC WITH DIFF 2022-04-06 08:15:00 Elnaeem, [facility] MAGNESIUM 2022-04-03 09:15:00 Elnaeem, [facility] BASIC METABOLIC PANEL (NA, K , CL, CO2, GLUCOSE, BUN, CREATININE, CA) 2022-04-03 09:15:00 Elnaeem, [facility] CBC WITH DIFF 2022-04-03 09:15:00 Elnaeem, [facility] BLOOD CULTURE SCREEN 2022-04-02 23:26:00 Elnaeem, [facility] XR CHEST 1 VW 2022-04-02 20:36:00 Elnaeem, [facility] URINALYSIS 2022-04-02 20:25:00 Elnaeem, [facility] BLOOD CULTURE SCREEN 2022-04-02 20:12:00 Elnaeem, [facility] XR CHEST 2 VW 2022-04-01 15:06:00 Christy Taylor [facility] CBC WITH DIFF 2022-04-01 11:05:00 Joyce Aguayo [facility] MISCELLANEOUS SEND OUT TEST 2022-04-01 11:05:00 Leonidas [facility] ANTICARDIOLIPIN ANTIBODIES 2022-04-01 10:39:00 SharmaJesse [facility] ANTI-B2 GLYCOPROTEIN I AB 2022-04-01 10:39:00 Leonidas [facility] MR BRAIN WO CONTRAST 2022-03-31 23:47:22 David Tavera [facility] COVID-19 (ID NOW RAPID TESTING) 2022-03-31 22:10:00 Keturah Patricia [facility] LAB ONLY COVID INTERPRETATION 2022-03-31 22:10:00 Keturah Patricia [facility] IMMUNOGLOBULIN G A M PANEL 2022-03-31 18:06:00 Myke Laurenrique [facility] BASIC METABOLIC PANEL (NA, K , CL, CO2, GLUCOSE, BUN, CREATININE, CA) 2022-03-31 18:06:00 Joyce Aguayo [facility] CBC WITH DIFF 2022-03-31 18:06:00 Christy Taylor [facility] ANTI-NUCLEAR ANTIBODY SCREEN 2022-03-31 18:06:00 Christy Taylor [facility] ANTI-SSA(RO) 2022-03-31 18:06:00 Keith Lauren [facility] ANTI-NUCLEAR ANTIBODY-PATHOLOGIST INTERPRETATION 2022-03-31 18:06:00 Christy Taylor [facility] XR CHEST 1 VW 2022-03-31 16:15:00 Keturah Patricia [facility] URINE DRUG (IMMUNOASSAY) - COMPREHENSIVE DRUG SCREEN 2022-03-31 15:52:00 Keturah aPtricia [facility] URINALYSIS 2022-03-31 15:52:00 Akin Wood [facility] AMMONIA, PLASMA 2022-03-31 15:41:00 Keturah Patricia [facility] C-REACTIVE PROTEIN 2022-03-31 15:41:00 Keturah Patricia [facility] FREE T4 2022-03-31 15:41:00 David Tavera [facility] VALPROIC ACID, TOTAL 2022-03-31 15:41:00 Christy Taylor [facility] VALPROIC ACID, FREE 2022-03-31 15:41:00 Christy Taylor [facility] CBC WITHOUT DIFF 2022-03-31 15:41:00 Akin Wood [facility] SEDIMENTATION RATE 2022-03-31 15:41:00 Keturah Patricia [facility] PROTHROMBIN TIME / INR 2022-03-31 15:41:00 Akin Wood [facility] ACTIVATED PARTIAL THRMPLAS BOUBACAR 2022-03-31 15:41:00 Akin Wood [facility] HB ECG ROUTINE & RHYTHM STRIP 2022-03-31 15:35:57 Akin Wood [facility] CT STROKE ANGIOGRAM HEAD 2022-03-31 15:32:41 Akin Wood [facility] CT STROKE ANGIOGRAM NECK 2022-03-31 15:32:41 Akin Wood [facility] CT STROKE PERFUSION W CONTRAST 2022-03-31 15:32:41 Christy Taylor [facility] PHOSPHORUS 2022-03-31 15:13:00 David Tavera [facility] CREATINE KINASE 2022-03-31 15:13:00 David Tavera [facility] MAGNESIUM 2022-03-31 15:13:00 David Tavera [facility] TROPONIN I 2022-03-31 15:13:00 Akin Wood [facility] TRIIODOTHYRONINE 2022-03-31 15:13:00 David Tavera [facility] THYROID STIMULATING HORMONE 2022-03-31 15:13:00 Christy Taylor [facility] BASIC METABOLIC PANEL (NA, K , CL, CO2, GLUCOSE, BUN, CREATININE, CA) 2022-03-31 15:13:00 Akin Wood [facility] HEPATITIS B SURFACE ANTIGEN 2022-03-31 15:13:00 Myke Laurenrique [facility] HEPATITIS B CORE ANTIBODY IGM 2022-03-31 15:13:00 Myke Laurenrique [facility] CT STROKE HEAD WO CONTRAST 2022-03-31 15:08:30 Akin Wood [facility] CONSENT/REFUSAL FOR DIAGNOSI S AND TREATMENT 2022-03-31 14:47:03 Doctor Unassigned, Protivin [facility] ELECTROENCEPHALOGRAM 2022-03-31 00:00:00 Christy Taylor [facility] OPHTHALMOLOGY DIAGNOSTIC TEST 2022-03-23 05:01:00 Doctor Unassigned, Protivin [facility] OU VISUAL FIELD EXAM EXTENDE D (30-2), BOTH EYES 2022-03-23 00:00:00 Srinivas Miguel [facility] Encounters Start Date/Time End Date/Time Encounter Type Admission Type Attending Clinicians Care Facility Care Department Encounter ID Source 2021-08-19 13:54:[address] [facility] [id number] [facility] 2021-08-19 13:53:31 [facility] [id number] [facility] 2021-08-19 12:20:[address] [facility] [id number] [facility] 2021-08-19 11:55:[address] [facility] [id number] [facility] 2021-08-19 10:59:[address] [facility] [id number] [facility] 2024-11-12 08:00:00 2024-11-12 08:00:00 Outpatient ROCÍO FARFAN [facility] [id number] [facility] 2024-07-27 10:30:00 2024-07-27 10:30:00 Outpatient HOUSTON HERNANDEZ [facility] [id number] [facility] 2024-06-11 00:00:00 2024-07-14 18:17:37 Patient Secure MsKeyur Estevez [facility] Y [employer] BANK BLDG. 1.2.840.114 350.1.13.10 4.2.7.2.686 [id number] [facility] 2024-07-13 08:00:00 2024-07-13 08:00:00 Outpatient CARINE NAPIER [facility] [id number] [facility] 2024-07-12 00:00:00 2024-07-12 16:50:03 Telephone Rocío Renteria [facility] BUILD[facility] 1.2.840.114 350.1.13.10 4.2.7.2.686 [id number] [facility] 2024-06-18 00:00:00 2024-06-18 14:42:40 Transition of Care Cain Somers Michele A SHEARN FLOR MILLAN 1.114 350.1.13.10 4.2.7.2.686 [id number] [facility] 2024-06-18 12:00:00 2024-06-18 14:40:06 Outpatient CARINE NAPIER [facility] [id number] [facility] 2024-06-18 12:00:00 2024-06-18 14:40:06 Ancillary Visit Philippe Bullock Brian A Gramke, Nicholas D [email or web address] PAVILLIWILLOW 1.114 350.1.13.10 4.2.7.2.686 [id number] [facility] 2024-06-18 09:45:00 2024-06-18 10:44:33 Outpatient CARINE NAPIER [facility] [id number] [facility] 2024-06-18 09:45:00 2024-06-18 10:44:33 Ancillary Visit Patricia Nelson Brian A Boyd, Amy E [facility] [[email or web address] 1.114 350.1.13.10 4.2.7.2.686 [id number] [facility] 2024-06-17 00:00:00 2024-06-18 02:01:27 Mobile Device Encounter Rosibel Kaur [facility] [[email or web address] [place] (PARM[place]IT) 1.114 350.1.13.10 4.2.7.2.686 [id number] [facility] 2024-05-11 00:00:00 2024-06-16 18:27:39 Patient Secure Msg Doctor Unassigned, Protivin Doctor Unassigned, Protivin [facility] [[email or web address] [place] (PARM[place]) 1..114 350.1.13.10 4.2.7.2.686 [id number] [facility] 2024-05-15 00:00:00 2024-06-16 18:23:12 Patient Secure Msg Rocío Renteria [facility] MED[facility] OFF[facility] BUILDING 1..114 350.1.13.10 4.2.7.2.686 [id number] [id number] [facility] 2024-05-15 00:00:00 2024-06-16 18:23:02 Patient Secure Msg Doctor Unassigned, Protivin Doctor Unassigned, Protivin [facility] [[email or web address] [place] 1..114 350.1.13.10 4.2.7.2.686 [id number] [facility] 2024-06-12 14:30:00 2024-06-16 12:36:00 Inpatient MUSHTAQ BARROS JORGE [facility] [[email or web address]] JUAN DAVID [id number] [facility] 2024-06-12 14:30:00 2024-06-16 12:36:00 Hospital Encounter HailyToby Jorge [facility] [[email or web address] [place] ([place]) 1..114 350.1.13.10 4.2.7.2.686 [id number] [facility] 2024-06-12 08:15:00 2024-06-12 08:15:00 Outpatient ZEN FONSECA [facility] [id number] [facility] 2024-06-11 12:00:00 2024-06-11 16:23:56 Ancillary Visit Philippe Bullock, Philippe Wray [facility] [[email or web address]] [facility] 1..114 350.1.13.10 4.2.7.2.686 [id number] [facility] 2024-06-11 09:45:00 2024-06-11 10:28:26 Ancillary Visit Patricia Nelson, Patricia Massey [facility] [[email or web address]] [facility] 1.20.114 350.1.13.10 4.2.7.2.686 [id number] [facility] 2024-05-04 00:00:00 2024-06-09 18:24:32 Patient Secure Msg Doctor Unassigned, Protivin Doctor Unassigned, Protivin [facility] [[email or web address] [place] ([facility]) 1.2840.114 350.1.13.10 4.2.7.2.686 [id number] [facility] 2024-05-09 00:00:00 2024-06-09 18:18:16 Patient Secure Msg Doctor Unassigned, Protivin Doctor Unassigned, Protivin [facility] 1.20.114 350.1.13.10 4.2.7.2.686 [id number] [facility] 2024-06-08 12:30:00 2024-06-08 12:45:00 Assistant Store Manager Operations Visit Pcp-Lab Chinmay Gonzalez Pcp-Lab [facility] [[email or web address]] PRIMARY CARE PAVLEONIDON 1.2.114 350.1.13.10 4.2.7.2.686 [id number] [facility] 2024-06-08 12:30:00 2024-06-08 12:30:00 Outpatient R CHINMAY GONZALEZ [facility] [id number] [facility] 2024-06-08 12:00:00 2024-06-08 12:16:02 Office Visit Chinmay Gonzalez [facility] [[email or web address]] PR[facility] PAVLEONIDON 1.2.114 350.1.13.10 4.2.7.2.686 [id number] [facility] 2024-06-06 12:00:00 2024-06-06 12:00:00 Outpatient R CHINMAY GONZALEZ [facility] [id number] [facility] 2024-06-05 08:00:00 2024-06-05 12:30:00 Nurse Visit 1, Arina-Vl Infusion Chair Elin Vieyra 1, Arina-Vl Infusion Chair [facility] [[email or web address] [place] 1.2840.114 350.1.13.10 4.2.7.2.686 [id number] [facility] 2024-06-05 00:00:00 2024-06-05 12:12:31 Telephone Chinmay Gonzalez [facility] [[email or web address]] PR[facility] C[facility] PAVILLION 1.2840.114 350.1.13.10 4.2.7.2.686 [id number] [facility] 2024-06-05 08:00:00 2024-06-05 08:00:00 Outpatient ELIN HASTINGS [facility] [id number] [facility] 2024-06-04 10:45:00 2024-06-04 11:00:00 Assistant Store Manager Operations Visit Pcp-Lab Chinmay Gonzalez Pcp-Lab [facility] [[email or web address]] PR[facility] PAVILLION 1.2840.114 350.1.13.10 4.2.7.2.686 [id number] [facility] 2024-06-04 10:45:00 2024-06-04 10:45:00 Outpatient CHINMAY REN [facility] [id number] [facility] 2024-06-04 09:45:00 2024-06-04 10:30:00 Ancillary Visit Patricia Nelson, Patricia Massey [facility] [[email or web address]] PRIMARY [facility] PAVILLION 1.2.840.114 350.1.13.10 4.2.7.2.686 [id number] [facility] 2024-06-01 09:00:00 2024-06-01 09:00:00 Outpatient ELIN HASTINGS [facility] [id number] [facility] 2024-05-28 09:45:00 2024-05-28 10:30:00 Ancillary Visit Patricia Nelson Brian A Boyd, Amy E [facility] [[email or web address]] PRIMARY CARE PAVILLION 1.2.840.114 350.1.13.10 4.2.7.2.686 [id number] [facility] 2024-05-22 00:00:00 2024-05-22 13:32:58 Patient Secure Msg Yasmani Gonzalezjoey Lockhart [facility] [[email or web address]] PRIMARY CARE PAVILLION 1.2.840.114 350.1.13.10 4.2.7.2.686 [id number] [id number] [facility] 2024-05-22 10:30:00 2024-05-22 11:30:46 Outpatient CARINE NAPIER [facility] [id number] [facility] 2024-05-22 10:30:00 2024-05-22 11:30:46 Ancillary Visit Patricia Nelson Brian A Boyd, Amy E [email or web address]] PRIMARY CARE PAVILLION 1.2840.114 350.1.13.10 4.2.7.2.686 [id number] [facility] 2024-05-22 08:00:00 2024-05-22 09:24:54 Outpatient R ADILENE LEVY [facility] [id number] [facility] 2024-05-22 08:00:00 2024-05-22 09:24:54 Office Visit Adilene Levy [facility] BLDG. 1.2840.114 350.1.13.10 4.2.7.2.686 [id number] [facility] 2024-05-16 00:00:00 2024-05-16 16:51:59 Telephone Yasmani Gonzalezjoey Lockhart [facility] [[email or web address]] PRIMARY CARE PAVILLION 1.2.840.114 350.1.13.10 4.2.7.2.686 [id number] [id number] [facility] 2024-05-16 00:00:00 2024-05-16 10:07:22 Telephone Chinmay Gonzalez [facility] [[email or web address]] PRIMARY CARE PAVRADHA 1.2840.114 350.1.13.10 4.2.7.2.686 [id number] [id number] [facility] 2024-05-16 00:00:00 2024-05-16 10:02:13 Patient Secure Msg Chinmay Gonzalez [facility] [[email or web address]] PRIMARY CARE PAVLENOIDON 1.84.114 350.1.13.10 4.2.7.2.686 [id number] [id number] [facility] 2024-05-15 10:00:00 2024-05-15 10:15:00 Assistant Store Manager Operations Visit Lab, Jasmeet Tamayo Unknown, Attending Lab, Jasmeet Tamayo [facility] BU[facility] 1.840.114 350.1.13.10 4.2.7.2.686 [id number] [facility] 2024-05-15 10:00:00 2024-05-15 08:50:51 Outpatient R CHINMAY GONZALEZ [facility] [id number] [facility] 2024-05-14 14:00:00 2024-05-14 14:18:53 Office Visit Keyur Cortes Y [employer] [facility] BLDG. ..840.114 350.1.13.10 4.2.7.2.686 [id number] [facility] 2024-05-14 08:00:00 2024-05-14 08:30:00 Office Visit Ed Renteriacarmen [facility] MEDICAL OFFICE BUILDING 1.840.114 350.1.13.10 4.2.7.2.686 [id number] [id number] [facility] 2024-05-14 08:00:00 2024-05-14 08:00:00 Outpatient R ROCÍO RENTERIA [facility] [id number] [facility] 2024-05-09 00:00:00 2024-05-09 08:28:10 Telephone Chinmay Gonzalez [facility] 1..114 350.1.13.10 4.2.7.2.686 [id number] [id number] [facility] 2024-05-08 11:45:00 2024-05-08 12:00:00 Assistant Store Manager Operations Visit Pcp-Lab Zen Lazaro Pcp-Lab [facility] [[email or web address]] PRIMARY CARE PAVILLION 1..114 350.1.13.10 4.2.7.2.686 [id number] [facility] 2024-05-08 11:45:00 2024-05-08 11:45:00 Outpatient R ZEN LAZARO [facility] [id number] [facility] 2024-05-08 10:00:00 2024-05-08 11:13:29 Office Visit Zen Lazaro [facility] Awesome[employer]me [facility] BLDG. 1..114 350.1.13.10 4.2.7.2.686 [id number] [facility] 2024-05-07 00:00:00 2024-05-08 08:54:52 Telephone Houston Moran [facility] CHRIS?JOCELYNBrielle [facility] 1.2.114 350.1.13.10 4.2.7.2.686 [id number] [facility] 2024-05-01 10:00:00 2024-05-01 10:15:00 Assistant Store Manager Operations Visit Pcp-Lab Chinmay Gonzalez Pcp-Lab [facility] [[email or web address]] PRIMARY CARE PAVILLION 1.2.114 350.1.13.10 4.2.7.2.686 [id number] [facility] 2024-05-01 09:30:00 2024-05-01 09:49:47 Outpatient R CHINMAY GONZALEZ [facility] [id number] [facility] 2024-05-01 09:30:00 2024-05-01 09:49:47 Office Visit Chinmay Gonzalez [facility] [[email or web address]] PRIMARY CARE PAVILLION 1.2.840.114 350.1.13.10 4.2.7.2.686 [id number] [id number] [facility] 2024-03-27 00:00:00 2024-04-28 18:20:13 Patient Secure Msg Rocío Renteria [facility] OFFICE BUILDING 1.2.840.114 350.1.13.10 4.2.7.2.686 [id number] [id number] [facility] 2024-03-28 00:00:00 2024-04-28 18:19:10 Patient Secure Msg Doctor Unassigned, Protivin Doctor Unassigned, Protivin [email or web address] [place] ([facility]) 1.2.840.114 350.1.13.10 4.2.7.2.686 [id number] [id number] [facility] 2024-04-26 00:00:00 2024-04-26 15:52:27 Telephone Elin Vieyra [facility] [[email or web address]] PRIMARY CARE PAVILLION 1.2.840.114 350.1.13.10 4.2.7.2.686 [id number] [id number] [facility] 2024-04-13 10:15:00 2024-04-13 10:30:00 Assistant Store Manager Operations Visit Pcp-Lab Elin Vieyra Pcp-Lab [facility] [[email or web address]] PRIMARY CARE PAVILLION 1.2.840.114 350.1.13.10 4.2.7.2.686 [id number] [facility] 2024-04-13 09:00:00 2024-04-13 10:03:04 Outpatient R ELIN VIEYRA [facility] [id number] [facility] 2024-04-13 09:00:00 2024-04-13 10:03:04 Office Visit Elin Vieyra [facility] [[email or web address]] PRIMARY CARE PAVILLION 1.2.840.114 350.1.13.10 4.2.7.2.686 [id number] [id number] [facility] 2024-04-11 00:00:00 2024-04-11 12:20:28 Patient Secure Msg Chinmay Gonzalez [facility] PRIMARY CARE PAVILLION 1.2.840.114 350.1.13.10 4.2.7.2.686 [id number] 086 [id number] [facility] 2024-04-11 00:00:00 2024-04-11 10:38:52 Patient Secure Msg Chinmay Gonzalez [facility] PRIMARY CARE PAVILLION 1.2.840.114 350.1.13.10 4.2.7.2.686 [id number] [id number] [facility] 2024-03-02 00:00:00 2024-04-07 18:25:12 Patient Secure Msg Eleazar Carine Agustin [facility] BLDG. 1.2.840.114 350.1.13.10 4.2.7.2.686 [id number] [facility] 2024-04-04 00:00:00 2024-04-05 12:23:40 Houston Rivas [facility]?JOCELYNBrielle [facility] MEDICAL OFFICE BUILDING 1.2.840.114 350.1.13.10 4.2.7.2.686 [id number] [facility] 2024-04-03 14:00:00 2024-04-03 14:18:55 Outpatient R CHINMAY GONZALEZ [facility] [id number] [facility] 2024-04-03 14:00:00 2024-04-03 14:18:55 Office Visit Chinmay Gonzalez [facility] PRIMARY CARE PAVILLION 1.2.840.114 350.1.13.10 4.2.7.2.686 [id number] 086 [id number] [facility] 2024-03-30 00:00:00 2024-03-30 14:03:06 Patient Secure Msg Kaia [facility] CHRIS?SERENA NINO MEDICAL OFFICE BUILDING 1.2.840.114 350.1.13.10 4.2.7.2.686 [id number] [facility] 2024-03-28 00:00:00 2024-03-30 11:47:25 Patient Secure Msg Kaia [facility] CHRIS?[facility] MED[facility] OFF[facility] BUILD[facility] 1.2.840.114 350.1.13.10 4.2.7.2.686 [id number] [facility] 2024-03-29 00:00:00 2024-03-29 10:35:57 [facility] 1.2840.114 350.1.13.10 4.2.7.2.686 [id number] [facility] 2024-03-27 16:00:00 2024-03-27 17:02:17 Outpatient R [facility] [id number] [facility] 2024-03-27 16:00:00 2024-03-27 17:02:17 Office Visit Kaia [facility] CHRIS?SERENA NINO MEDICAL OFF[facility] BUILDING 1.2.840.114 350.1.13.10 4.2.7.2.686 [id number] [facility] 2024-03-14 00:00:00 2024-03-19 10:02:14 Telephone Rocío Renteria [facility] MEDICAL OFFICE BUILDING 1.2.840.114 350.1.13.10 4.2.7.2.686 [id number] 092 [id number] [facility] 2024-03-14 13:30:00 2024-03-14 14:33:59 Outpatient R [facility] [id number] [facility] 2024-03-14 13:30:00 2024-03-14 14:33:59 Office Visit Ed Renteriacarmen [facility] MEDICAL OFFICE BUILDING 1.2.840.114 350.1.13.10 4.2.7.2.686 [id number] [id number] [facility] 2024-03-02 10:15:00 2024-03-02 10:30:00 Office Visit [facility] 1.2.840.114 350.1.13.10 4.2.7.2.686 [id number] [facility] 2024-03-02 10:15:00 2024-03-02 10:15:00 Outpatient R CARINE BUSH [facility] [id number] [facility] 2024-02-21 00:00:00 2024-02-22 13:05:43 Telephone Elin Vieyra [email or web address]] PRIMARY CARE PAVILLION 1.2.840.114 350.1.13.10 4.2.7.2.686 [id number] 092 [id number] [facility] 2024-02-17 00:00:00 2024-02-17 12:11:28 Telephone Janee Suarez [email or web address] [place] 1.2.840.114 350.1.13.10 4.2.7.2.686 [id number] [facility] 2024-02-14 22:50:00 2024-02-15 12:37:00 Outpatient X MUSHTAQ MERINO JORGE [email or web address]] JUAN DAVID [id number] [facility] 2024-02-14 22:50:00 2024-02-15 12:37:00 [facility]imal[facility] [place] 1.2.840.114 350.1.13.10 4.2.7.2.686 [id number] [facility] 2024-02-14 09:30:00 2024-02-14 09:30:00 Outpatient R CRAINE BUSH [facility] [id number] [facility] 2024-01-23 00:51:00 2024-02-13 18:45:00 Inpatient X AYALA NICHOLE[facility]UAN DAVID [id number] [facility] 2024-01-23 00:51:00 2024-02-13 18:45:00 Hospital Encounter Mirna Hurley, Clarence Renteria, Rocío Cai, Aggie Mena, [facility] 1.2.840.114 350.1.13.10 4.2.7.2.686 [id number] [facility] 2024-02-03 07:05:00 2024-02-03 08:55:00 Surgery Carine Bush [facility] 1.2.840.114 350.1.13.10 4.2.7.2.686 [id number] [facility] 2024-02-03 07:11:00 2024-02-03 08:43:00 Anesthesia Event Reji Cox, Adilene Hannah [facility] 1.2.840.114 350.1.13.10 4.2.7.2.686 [id number] [facility] 2024-01-24 09:00:00 2024-01-24 09:00:00 Outpatient CHINMAY REN [facility] [id number] [facility] 2023-12-08 07:23:53 2023-12-08 23:59:00 Outpatient R ELIN VIEYRA [facility] [id number] [facility] 2023-12-08 07:23:53 2023-12-08 23:59:00 Hospital Encounter Elin Vieyra [facility] 1.2.840.114 350.1.13.10 4.2.7.2.686 [id number] [facility] 2023-12-02 08:00:00 2023-12-02 13:30:00 Nurse Visit 2, Arina- [facility] 1.2.840.114 350.1.13.10 4.2.7.2.686 [id number] [id number] [facility] 2023-12-02 08:00:00 2023-12-02 08:00:00 [facility] [id number] [facility] 2023-11-25 09:30:00 2023-11-25 09:45:00 Assistant Store Manager Operations Visit Pcp-Lab Chung [facility] PRIMARY CARE PAVILLION 1.2.840.114 350.1.13.10 4.2.7.2.686 [id number] [facility] 2023-11-25 09:00:00 2023-11-25 09:24:14 Outpatient R CHUNG ELIN [facility] [id number] [facility] 2023-11-25 09:00:00 2023-11-25 09:24:14 Office Visit [facility] PRIMARY CARE PAVILLION 1.2.840.114 350.1.13.10 4.2.7.2.686 [id number] [facility] 2023-11-04 09:00:00 2023-11-04 09:00:00 Outpatient R [facility] [id number] [facility] 2023-09-06 00:00:00 2023-09-06 00:00:00 Kike Conner [facility] [[email or web address] 1.840.114 350.1.13.10 4.2.7.2.686 [id number] [facility] 2023-08-16 08:45:00 2023-08-16 10:38:18 Outpatient R CARINE BUSH [facility] [id number] [facility] 2023-08-16 08:45:00 2023-08-16 10:38:18 Office Visit Carine Bush [facility] 1.840.114 350.1.13.10 4.2.7.2.686 [id number] [facility] 2023-07-26 15:30:00 2023-07-26 15:37:08 Outpatient R CHINMAY GONZALEZ [facility] [id number] [facility] 2023-07-26 15:30:00 2023-07-26 15:37:08 Office Visit Chinmay Gonzalez [facility] [[email or web address] [facility] 1.840.114 350.1.13.10 4.2.7.2.686 [id number] [facility] 2023-07-26 00:00:00 2023-07-26 00:00:00 Orders Only Doctor Unassigned, Protivin [facility] 1.840.114 350.1.13.10 4.2.7.2.686 [id number] [facility] 2023-06-17 00:00:00 2023-06-17 00:00:00 Telephone Elin Vieyra [facility] [[email or web address] [facility] 1..840.114 350.1.13.10 4.2.7.2.686 [id number] [id number] [facility] 2023-06-17 00:00:00 2023-06-17 00:00:00 [facility] 1..114 350.1.13.10 4.2.7.2.686 [id number] [id number] [facility] 2023-06-14 09:30:00 2023-06-14 10:48:42 Outpatient R CARINE BUSH [facility] [id number] [facility] 2023-06-14 09:30:00 2023-06-14 10:48:42 Office Visit Carine Bush [facility] [employer] [facility]. 1..114 350.1.13.10 4.2.7.2.686 [id number] [facility] 2023-06-14 00:00:00 2023-06-14 00:00:00 Orders Only Doctor Unassigned, Protivin [facility] 1..114 350.1.13.10 4.2.7.2.686 [id number] [facility] 2023-06-03 08:45:00 2023-06-03 13:54:05 Outpatient R ELIN VIEYRA [facility] [id number] [facility] 2023-06-03 08:45:00 2023-06-03 13:54:05 Nurse Visit 4, Arina-Vl Infusion Chair [facility] 1..114 350.1.13.10 4.2.7.2.686 [id number] [facility] 2023-06-02 00:00:00 2023-06-02 00:00:00 Telephone Elin Vieyra [facility] 1..114 350.1.13.10 4.2.7.2.686 [id number] [facility] 2023-05-27 16:00:00 2023-05-27 16:15:00 Assistant Store Manager Operations Visit Pcp-Lab [facility] PRIMARY CARE PAVILLION 1.2.840.114 350.1.13.10 4.2.7.2.686 [id number] [facility] 2023-05-27 15:00:00 2023-05-27 15:45:45 [facility]patient [facility] [id number] [facility] 2023-05-27 15:00:00 2023-05-27 15:45:45 Office Visit [facility] PRIMARY CARE PAVILLION 1.2.840.114 350.1.13.10 4.2.7.2.686 [id number] [facility] 2023-05-27 00:00:00 2023-05-27 00:00:00 Orders Only Doctor Unassigned, Protivin [facility] 1.2840.114 350.1.13.10 4.2.7.2.686 [id number] [facility] 2023-03-22 00:00:00 2023-03-22 00:00:00 Transition of Care Jewell Mckeon 1.2.840.114 350.1.13.10 4.2.7.2.686 [id number] [facility] 2023-03-20 17:18:00 2023-03-21 17:40:00 Outpatient X CICI BLANTON [facility] [id number] [facility] 2023-03-20 17:18:00 2023-03-21 17:40:00 Hospital Encounter Joan Knowles, Maury Obando, Ccii De Leon [facility] 1.2840.114 350.1.13.10 4.2.7.2.686 [id number] [facility] 2023-03-03 00:00:00 2023-03-03 00:00:00 Orders Only Doctor Unassigned, Protivin [facility] 1.2.840.114 350.1.13.10 4.2.7.2.686 [id number] [facility] 2023-02-17 00:00:00 2023-02-17 00:00:00 Transition of Care Leslie Palm 1.2.840.114 350.1.13.10 4.2.7.2.686 [id number] [facility] 2023-02-17 00:00:00 2023-02-17 00:00:00 Telephone Angela German [facility] [[email or web address]] PRIMARY CARE PAVILLION 1.2840.114 350.1.13.10 4.2.7.2.686 [id number] [facility] 2023-02-13 22:56:00 2023-02-16 11:59:00 [facility] [id number] 2023-02-13 22:56:00 2023-02-16 11:59:00 Hospital Encounter [facility]o [place] 1.2840.114 350.1.13.10 4.2.7.2.686 [id number] [facility] 2023-01-18 15:15:00 2023-01-18 15:30:00 Assistant Store Manager Operations Visit Pcp-Lab Angela German [facility] [[email or web address]] PRIMARY CARE PAVILLION 1.2840.114 350.1.13.10 4.2.7.2.686 [id number] [facility] 2023-01-18 13:30:00 2023-01-18 15:02:55 Outpatient R ANGELA GERMAN [facility] [id number] [facility] 2023-01-18 13:30:00 2023-01-18 15:02:55 Office Visit Angela German [facility] [[email or web address]] PR[facility] CARE PAVILLION 1.20.114 350.1.13.10 4.2.7.2.686 [id number] [facility] 2022-12-14 10:00:00 2022-12-14 11:36:44 Outpatient R CARINE BUSH [facility] [id number] [facility] 2022-12-14 10:00:00 2022-12-14 11:36:44 Office Visit Carine Bush [facility]. 1.840.114 350.1.13.10 4.2.7.2.686 [id number] [facility] 2022-12-08 00:00:00 2022-12-08 00:00:00 Orders Only Doctor Unassigned, Protivin [facility] 1.2840.114 350.1.13.10 4.2.7.2.686 [id number] [facility] 2022-12-01 09:15:00 2022-12-01 15:27:23 Outpatient R ELIN VIEYRA [facility] [id number] [facility] 2022-12-01 09:15:00 2022-12-01 15:27:23 Nurse Visit 3, Arina- Infusion Chair [facility] 1.840.114 350.1.13.10 4.2.7.2.686 [id number] [facility] 2022-11-02 00:00:00 2022-11-02 00:00:00 Orders Only Doctor Unassigned, Protivin [facility] 1.2840.114 350.1.13.10 4.2.7.2.686 [id number] [facility] 2022-10-30 00:00:00 2022-10-30 00:00:00 Orders Only Doctor Unassigned, Protivin [facility] 1.840.114 350.1.13.10 4.2.7.2.686 [id number] [facility] 2022-10-27 00:00:00 2022-10-27 00:00:00 Letter (Out) Clinic, [facility] Neurology Resident [facility] 1.840.114 350.1.13.10 4.2.7.2.686 [id number] [id number] [facility] 2022-10-25 08:33:00 2022-10-26 15:15:00 Outpatient U MUSHTAQ MERINO JORGE [facility] [[email or web address]] JUAN DAVID [id number] [facility] 2022-10-25 08:33:00 2022-10-26 15:15:00 Hospital Encounter David Tavera Jorge JENNIE [facility] 1.0.114 350.1.13.10 4.2.7.2.686 [id number] [facility] 2022-10-26 00:00:00 2022-10-26 00:00:00 Patient Secure Msg Doctor Unassigned, Protivin [facility] 1.840.114 350.1.13.10 4.2.7.2.686 [id number] [facility] 2022-09-01 00:00:00 2022-09-01 00:00:00 Orders Only Doctor Unassigned, Protivin [facility] 1.840.114 350.1.13.10 4.2.7.2.686 [id number] [facility] 2022-08-17 00:00:00 2022-08-17 00:00:00 Marie Sepulveda [facility] 1.840.114 350.1.13.10 4.2.7.2.686 [id number] [facility] 2022-08-16 00:00:00 2022-08-16 00:00:00 Telephone Ashly Villanueva [facility] [[email or web address]] PRIMARY CARE PAVILLION 1.2.840.114 350.1.13.10 4.2.7.2.686 [id number] [facility] 2022-08-12 11:00:00 2022-08-12 11:00:00 Outpatient ASHLY DANIELS [facility] [id number] [facility] 2022-08-12 00:00:00 2022-08-12 00:00:00 [facility] 1.2.840.114 350.1.13.10 4.2.7.2.686 [id number] [facility] 2022-08-06 00:00:00 2022-08-06 00:00:00 Telephone [facility] PRIMARY CARE PAVILLION 1.2.840.114 350.1.13.10 4.2.7.2.686 [id number] [facility] 2022-07-22 00:00:00 2022-07-22 00:00:00 Telephone Demetrio Rinaldi [facility] [[email or web address]] PRIMARY CARE PAVILLION 1.2.840.114 350.1.13.10 4.2.7.2.686 [id number] [facility] 2022-07-06 10:00:00 2022-07-06 10:00:00 Outpatient CARINE NIELSON [facility] [id number] [facility] 2022-07-01 08:30:00 2022-07-01 08:30:00 Outpatient ELIN HASTINGS [facility] [id number] [facility] 2022-06-10 10:00:00 2022-06-10 12:36:43 Outpatient ASHLY DANIELS [facility] [id number] [facility] 2022-06-10 10:00:00 2022-06-10 12:36:43 Office Visit Clinic, Neurology Continuity Ashly Villanueva [facility] [[email or web address]] PRIMARY CARE MIKHAIL 1..840.114 350.1.13.10 4.2.7.2.686 [id number] [facility] 2022-06-10 10:00:00 2022-06-10 10:00:00 Outpatient R [facility] [id number] [facility] 2022-06-03 10:00:00 2022-06-03 15:30:00 Nurse Visit 3, Arina-[facility]l [facility] 1.840.114 350.1.13.10 4.2.7.2.686 [id number] [facility] 2022-06-03 10:00:00 2022-06-03 10:00:00 [facility] [id number] [facility] 2022-05-20 10:00:00 2022-05-20 15:30:00 Nurse Visit 4, Arina-Vl Infusion Chair Chung [facility] AT [facility] 1..840.114 350.1.13.10 4.2.7.2.686 [id number] [facility] 2022-05-20 10:00:00 2022-05-20 10:00:00 Outpatient [facility] [id number] [facility] 2022-05-20 00:00:00 2022-05-20 00:00:00 Telephone [facility] PRIMARY CARE MI[facility]HAIL 1..840.114 350.1.13.10 4.2.7.2.686 [id number] [facility] 2022-05-20 00:00:00 2022-05-20 00:00:00 Orders Only Doctor Unassigned, Protivin [facility] 1.2.840.114 350.1.13.10 4.2.7.2.686 [id number] [facility] 2022-05-05 09:19:00 2022-05-08 15:58:00 Outpatient X DWAINE COX [facility] [[email or web address]] JUAN DAVID [id number] [facility] 2022-05-05 09:19:00 2022-05-08 15:58:00 Emergency Ashly Collier Anand Vilaschandr a [facility] 1.2.840.114 350.1.13.10 4.2.7.2.686 [id number] [facility] 2022-05-05 00:00:00 2022-05-05 00:00:00 Telephone Elin Vieyra [facility] 1.2840.114 350.1.13.10 4.2.7.2.686 [id number] [facility] 2022-04-19 00:00:00 2022-04-19 00:00:00 Patient Secure Msg Keith Upton [facility] [[email or web address]] PRIMARY CARE PAVILLION 1.2.840.114 350.1.13.10 4.2.7.2.686 [id number] [facility] 2022-04-12 00:00:00 2022-04-12 00:00:00 Transition of Care Leslie Palm [facility] 1.2.840.114 350.1.13.10 4.2.7.2.686 [id number] [facility] 2022-03-31 09:52:00 2022-04-09 23:12:00 Inpatient X ELIN VIEYRA [facility] [[email or web address]] JUAN DAVID [id number] [facility] 2022-03-31 09:52:00 2022-04-09 23:12:00 Hospital Encounter Keturah Patricia, Levi [facility]ill[facility] 1.0.114 350.1.13.10 4.2.7.2.686 [id number] [facility] 2022-03-23 10:15:00 2022-03-23 13:08:32 Outpatient R CARINE BUSH [facility] [id number] [facility] 2022-03-23 10:15:00 2022-03-23 13:08:32 Office Visit Carine Bush [facility] 1..840.114 350.1.13.10 4.2.7.2.686 [id number] [facility] 2022-03-23 00:00:00 2022-03-23 00:00:00 Orders Only Doctor Unassigned, Protivin [facility] 1.0.114 350.1.13.10 4.2.7.2.686 [id number] [facility] 2022-03-23 00:00:00 2022-03-23 00:00:00 Telephone Татьяна [facility] 1..114 350.1.13.10 4.2.7.2.686 [id number] [facility] 2022-03-11 10:00:00 2022-03-11 11:00:00 Office Visit Clinic, Neurology Continuity Татьяна [facility] 1..114 350.1.13.10 4.2.7.2.686 [id number] [facility] 2022-03-11 10:00:00 2022-03-11 10:00:00 Outpatient ASHLY DANIELS [facility] [id number] [facility] 2022-03-11 10:00:00 2022-03-11 10:00:00 Outpatient ASHLY DANIELS [facility] [id number] [facility] 2022-03-11 10:00:00 2022-03-11 10:00:00 Outpatient ASHLY DANIELS [facility] [id number] [facility] 2022-03-10 13:15:00 2022-03-10 13:30:00 Office Visit Brian Preethi [facility] 1..840.114 350.1.13.10 4.2.7.2.686 [id number] [facility] 2022-03-10 13:15:00 2022-03-10 13:15:00 [facility] [id number] [facility] 2022-03-10 13:15:00 2022-03-10 13:15:00 [facility] [id number] [facility] 2022-03-10 13:15:00 2022-03-10 13:15:00 Out[facility] [id number] [facility] 2022-03-05 00:00:00 2022-03-05 00:00:00 [facility]patient [facility] [id number] [facility] 2022-03-05 00:00:00 2022-03-05 00:00:00 Orders Only Doctor Unassigned, Protivin [facility] 1..840.114 350.1.13.10 4.2.7.2.686 [id number] [facility] 2022-03-05 00:00:00 2022-03-05 00:00:00 Patient Secure Msg Doctor Unassigned, Protivin [facility] 1..840.114 350.1.13.10 4.2.7.2.686 [id number] [facility] 2022-03-02 00:00:00 2022-03-02 00:00:00 Telephone Keith Upton [facility] 1.114 350.1.13.10 4.2.7.2.686 [id number] [facility] 2022-02-26 13:10:00 2022-02-26 13:26:22 Outpatient R PREETHI TORRES [facility] [id number] [facility] 2022-02-26 13:10:00 2022-02-26 13:26:22 Office Visit Clinic, [facility]surger y [facility] 1..114 350.1.13.10 4.2.7.2.686 [id number] [facility] 2022-02-26 13:10:00 2022-02-26 13:26:22 [facility] [id number] [facility] 2022-02-26 13:10:00 2022-02-26 13:26:22 [facility] [id number] [facility] 2022-02-22 00:00:00 2022-02-22 00:00:00 Transition of Care Alena Sarmiento [facility] 1..114 350.1.13.10 4.2.7.2.686 [id number] [facility] 2022-02-02 10:41:00 2022-02-19 20:35:00 Inpatient X DAVID TAVERA [facility] [[email or web address]] JUAN DAVID [id number] [facility] 2022-02-02 10:41:00 2022-02-19 20:35:00 Hospital Encounter Clement Bell, Aggie Young, Clarence Torres, David Polk [facility] 1..114 350.1.13.10 4.2.7.2.686 [id number] [facility] 2022-02-12 09:00:00 2022-02-12 11:46:00 Surgery Brian Preethi [facility] 1.2.840.114 350.1.13.10 4.2.7.2.686 [id number] [facility] 2022-02-02 00:00:00 2022-02-02 00:00:00 Travel 1.2.840.1 17172.1.1 3.104.2.7 .[id number] .8 1.2.840.114 350.1.13.10 4.2.7.3.698 [id number] [facility] 2020-08-08 00:00:00 2020-08-08 00:00:00 (TEL) STLMLC ST[facility] [id number] [facility] 2020-08-07 00:00:00 2020-08-07 00:00:00 OFFICE VISIT EST PT LEVEL 3 STLMLC STLMLC [id number] [facility] 2020-05-08 00:00:00 2020-05-08 00:00:00 OFFICE VISIT ESTAB PT LEVEL 2 STLMLC STLMLC [id number] [facility] 2020-04-17 00:00:00 2020-04-17 00:00:00 OFFICE VISIT EST PT LEVEL 3 STLMLC STLMLC [id number] [facility] 2020-04-11 18:06:00 2020-04-11 21:28:00 Emergency Myrna Mathews [facility] 1.2.840.114 350.1.13.10 4.2.7.2.686 [id number] [facility] 2020-04-11 17:49:00 2020-04-11 17:49:00 Emergency X MYRNA MATHEWS [facility] [[email or web address]] ERT [id number] [facility] 2020-02-27 17:45:00 2020-02-27 17:45:00 [facility] [id number] [facility] 2020-02-05 16:20:00 2020-02-05 16:20:00 [facility] [id number] [facility] 2020-01-30 13:41:00 2020-01-30 13:41:00 [facility] [id number] [facility] 2019-09-21 11:40:00 2019-09-21 11:40:00 [facility] [id number] [facility] 2019-08-03 11:40:00 2019-08-03 11:40:00 [facility] [id number] [facility] 2019-05-23 10:59:00 2019-05-23 10:59:00 [facility] [id number] [facility] 2019-01-22 16:20:00 2019-01-22 16:20:00 [facility] [id number] [facility] 2018-07-27 11:15:00 2018-07-27 11:15:00 [facility] [id number] [facility] 2018-07-05 15:30:00 2018-07-05 15:30:00 [facility] [id number] [facility] 2017-12-21 16:00:00 2017-12-21 16:00:00 [facility] [id number] [facility] 2017-10-27 16:00:00 2017-10-27 16:00:00 [facility] [id number] [facility] 2017-10-18 16:32:00 2017-10-18 16:32:00 Outpatient [facility] [id number] [facility] 2017-10-11 15:30:00 2017-10-11 15:30:00 Outpatient [facility] [id number] [facility] 2017-10-11 08:34:00 2017-10-11 08:34:00 Outpatient [facility] [id number] [facility] Results Test Description Test Time Test Comments Results Result Co mments Source [facility]16 03:06:29* Test Item Value Reference Range Interpretation Comme nts POCT GLU (test code = 2335506016) 349 mg/dL 70-110 H Lab Interpretation (test cod e = 06505-1) Abnormal [facility] [id number] 00:58:03* Test Item Value Reference Range Interpretation Comme nts BF SEGS% (test code = 15788-8) 2 % 0-7 BF LYMPHS% (test code = 07076-5) 77 % 28-96 BF MACROPHAGE% (test code = 69581-8) 21 % 16-56 BF #CELLS CNTD (test code = 7269501364) 100 cells/u L [facility] Fluid Direct [id number] 00:53:22* Test Item Value Reference Range Interpretation Comme nts BF COLOR (test code = 8526166912) Clear BF WBC Count (test code = 0236373868) 1 0-5 BF RBC Count (test code = 9421697056) 30 See_Comment [Automated me ssage] The system which generated this result transmitted reference range: /?L. The reference range was not used to interpret this result as normal/abnormal. [facility]ERE[facility]OSPINAL FLUID [id number] 00:10:47 * Test Item Value Reference Range Interpretation Comme nts GLU CSF (test code = 7097578879) 71 mg/dL 50-80 UNSPUN BODY FLUID COLOR (test code = 7344103131) Colorless UNSPUN BODY FLUID CLARITY (test code = 6735704673) Clear SPUN BODY FLUID COLOR (test code = 6409936592) Colorless SPUN BODY FLUID CLARITY (test code = 8411779934) Clear Sediment (test code = 8933179960) The sediment volume is <0.1 mLs of the total fluid volume of 5.0 mLs and its color is red. [facility] [id number] 00:10:47 * Test Item Value Reference Range Interpretation Comme nts T. PRO CSF (test code = 4862772228) 115.0 mg/dL 15.0-45.0 H UNSPUN BODY FLUID COLOR (test code = 2279019806) Colorless UNSPUN BODY FLUID CLARITY (test code = 7043155502) Clear SPUN BODY FLUID COLOR (test code = 4196326960) Colorless SPUN BODY FLUID CLARITY (test code = 8752488842) Clear Sediment (test code = 2583188955) The sediment volume is <0.1 mLs of the total fluid volume of 5.0 mLs and its color is red. Lab Interpretation (test code = 19606-7) Abnormal [facility] GLUCOSE (AUTOMATED)2024-06-15 22:11:27* Test Item Value Reference Range Interpretation Comme nts POCT GLU (test code = 0778781061) 127 mg/dL 70-110 H Lab Interpretation (test cod e = 79072-0) Abnormal [facility] GLUCOSE (AUTOMATED)2024-06-15 17:39:00* Test Item Value Reference Range Interpretation Comme nts POCT GLU (test code = 6154537299) 90 mg/dL 70-110 Lab Interpretation (test cod e = 31281-7) Normal [facility] GLUCOSE (AUTOMATED)2024-06-15 14:58:53* Test Item Value Reference Range Interpretation Comme nts POCT GLU (test code = 8721938851) 79 mg/dL 70-110 Lab Interpretation (test cod e = 03659-1) Normal [facility] GLUCOSE (AUTOMATED)2024-06-15 02:04:28* Test Item Value Reference Range Interpretation Comme nts POCT GLU (test code = 4155541823) 134 mg/dL 70-110 H Lab Interpretation (test cod e = 69175-8) Abnormal [facility] GLUCOSE (AUTOMATED)2024-06-14 22:58:24* Test Item Value Reference Range Interpretation Comme nts POCT GLU (test code = 1840745032) 123 mg/dL 70-110 H Lab Interpretation (test cod e = 07989-2) Abnormal [facility] WO [id number] 21:31:34EXAM: MR CERVICAL SPINE W WO CONTRAST HISTORY: Myelopathy, chronic, cervical spine TECHNIQUE: MRI of cervical spine was performed on 1.5 Ginette before andafter intravenous administration of contrast. COMPARISON: None. FINDINGS: Normal cervical lordosis. The vertebral bodies are normal in height andalignment. The background bone marrow signal is unremarkable. Schmorl's nodes noted atC5-C6 with enhancement likely reactive. Flattening of the cervical cord noted at C5-C6. The cervical spinal cord isotherwise normal in morphology and signal intensity. No abnormalenhancement identified. Multilevel disc desiccation noted. At C2-C3, right uncovertebral and facet arthrosis result in severe rightneural foraminal narrowing. No high-grade spinal canal stenosis orsignificant left neural foraminal narrowing. At C3-C4, posterior disc osteophyte complex with uncovertebral and facetarthrosis result in moderate to severe bilateral neural foraminal narrowingand mild spinal canal stenosis. There is indentation of the ventral surfaceof the cervical cord at this level. At C4- C5, posterior disc osteophyte complex with uncovertebral and facetarthrosis result in moderate to severe bilateral neural foraminal narrowingand mild spinal canal stenosis. At C5-C6, posterior disc osteophyte complex with uncovertebral and facetarthrosis result in severe right and moderate left neural foraminalnarrowing and moderate spinal canal stenosis. At C6-C7, posterior disc osteophyte complex with uncovertebral arthrosisresult in moderate bilateral neural foraminal narrowing. No high-gradespinal canal stenosis. At C7-T1, posterior disc osteophyte complex with bilateral uncovertebralarthrosis result in mild spinal canal stenosis and mild bilateral neuralforaminal narrowing. The prevertebral soft tissues are unremarkable.[facility] POCT GLUCOSE (AUTOMATED)2024-06-14 19:00:53* Test Item Value Reference Range Interpretation Comme [facility] POCT GLU (test code = 9891588673) 165 mg/dL 70-110 H Lab Interpretation (test cod e = 10003-4) Abnormal [facility]2024-06-14 14:22:53* Test Item Value Reference Range Interpretation Comme nts POCT GLU (test code = 7844287836) 141 mg/dL 70-110 H Lab Interpretation (test cod e = 70291-3) Abnormal [facility] GLUCOSE (AUTOMATED)2024-06-14 02:33:19* Test Item Value Reference Range Interpretation Comme nts POCT GLU (test code = 6675333726) 105 mg/dL 70-110 Lab Interpretation (test cod e = 92537-0) Normal [facility] GLUCOSE (AUTOMATED)2024-06-13 23:11:18* Test Item Value Reference Range Interpretation Comme nts POCT GLU (test code = 8365686337) 152 mg/dL 70-110 H Lab Interpretation (test cod e = 30205-4) Abnormal [facility] GLUCOSE (AUTOMATED)2024-06-13 18:39:50* Test Item Value Reference Range Interpretation Comme nts POCT GLU (test code = [id number]) 175 mg/dL 70-110 H Lab Interpretation (test cod e = 87463-8) [facility] [id number] 16:56:40MR BRAIN W WO CONTRAST, MR ORBIT W WO CONTRAST PROVIDED INDICATION: PACNS flare up . ADDITIONAL HISTORY OBTAINED FROM ELECTRONIC MEDICAL RECORD: PMHx of PACNS(On scheduled rituximab) c/b seizure disorder, HTN, HLD, DM, CAD, withright eye pain. COMPARISON: MR brain and orbits 01/29/2024 TECHNIQUE: Multiplanar multiweighted MR of the brain and orbits wasperformed before and after the administration of gadolinium basedintravenous contrast. FINDINGS: MR BRAIN: Redemonstration of postsurgical changes of right frontal craniotomy withunderlying susceptibility signal loss from hemosiderin deposition. Dilated ventricles out of proportion to the caliber of sulci likelysecondary to central predominant volume loss. The basal cisterns areunremarkable. No brain herniation. No mass effect, midline shift or pathological extra-axial fluid collectionis present. Extensive periventricular and deep white matter T2/FLAIRhyperintensities, nonspecific likely related to the patient's knownvasculitis. ?left occipital lobe encephalomalacia with ex vacuo dilatationof the occipital horn of the lateral ventricle likely sequela of chronicinfarct. No acute intracranial hemorrhage. No restricted diffusion to suggest acute/subacute ischemia. No abnormalenhancement identified. No abnormal signal in the paranasal sinuses or mastoid air cells. The T2 flow voids for the major intracranial vessels are unremarkable. MR ORBITS: There is diffuse thickening and enhancement of the bilateral optic sheath,right more than the left, with some stranding of surrounding intraorbitalfat planes. There is diffusion restriction on the right optic nerve suggestive of acuteischemia. There is also abnormal STIR/FLAIR hyperintensesignal of theright optic nerves throughout their entire course. There is volume loss andFLAIR/STIR hyperintense signal of the left optic nerve. There isquestionable STIR hyperintense signal of the left side of the optic chiasm,otherwise unremarkable. No orbital mass identified.The globes, lacrimal glands and extraocularmuscles are symmetric. The cavernous sinuses are unremarkable.[facility] HospitalMR ORBIT W WO [id number] 16:56:40MR BRAIN W WO CONTRAST, MR ORBIT W WO CONTRAST PROVIDED INDICATION: PACNS flare up . ADDITIONAL HISTORY OBTAINED FROM ELECTRONIC MEDICAL RECORD: PMHx of PACNS(On scheduled rituximab) c/b seizure disorder, HTN, HLD, DM, CAD, withright eye pain. COMPARISON: MR brain and orbits 01/29/2024 TECHNIQUE: Multiplanar multiweighted MR of the brain and orbits wasperformed before and after the administration of gadolinium basedintravenous contrast. FINDINGS: MR BRAIN: Redemonstration of postsurgical changes of right frontal craniotomy withunderlying susceptibility signal loss from hemosiderin deposition. Dilated ventricles out of proportion to the caliber of sulci likelysecondary to central predominant volume loss. The basal cisterns areunremarkable. No brain herniation. No mass effect, midline shift or pathological extra-axial fluid collectionis present. Extensive periventricular and deep white matter T2/FLAIRhyperintensities, nonspecific likely related to the patient's knownvasculitis. ?left occipital lobe encephalomalacia with ex vacuo dilatationof the occipital horn of the lateral ventricle likely sequela of chronicinfarct. No acute intracranial hemorrhage. No restricted diffusion to suggest acute/subacute ischemia. No abnormalenhancement identified. No abnormal signal in the paranasal sinuses or mastoid air cells. The T2 flow voids for the major intracranial vessels are unremarkable. MR ORBITS: There is diffuse thickening and enhancement of the bilateral optic sheath,right more than the left, with some stranding of surrounding intraorbitalfat planes. There is diffusion restriction on the right optic nerve suggestive of acuteischemia. There is also abnormal STIR/FLAIR hyperintensesignal of theright optic nerves throughout their entire course. There is volume loss andFLAIR/STIR hyperintense signal of the left optic nerve. There isquestionable STIR hyperintense signal of the left side of the optic chiasm,otherwise unremarkable. No orbital mass identified.The globes, lacrimal glands and extraocularmuscles are symmetric. The cavernous sinuses are unremarkable.[facility] HospitalC-Reactive [id number] 16:33:55* Test Item Value Reference Range Interpretation Comme [facility] CRP (test code = 8727522272) 0.4 mg/dL <=0.8 Lab Interpretation (test cod e = 20046-3) Normal [facility] HospitalPO[facility]SE (AUTOMATED)2024-06-13 14:26:15* Test Item Value Reference Range Interpretation Comme [facility] POCT GLU (test code = 4712998099) 114 mg/dL 70-110 H Lab Interpretation (test cod e = 78228-5) Abnormal [facility] HospitalCT ANGIOGRAM [id number] 14:22:26CT ANGIOGRAM NECK, CT ANGIOGRAM HEAD PROVIDED INDICATION: 49 years-old Male; Vision loss, binocular. ADDITIONAL HISTORY OBTAINED FROM ELECTRONIC MEDICAL RECORD: Right eyevision problems since 1117. COMPARISON: CT angiogram dated 02/14/2023 TECHNIQUE: ?CT angiography of the head and neck was performed after theadministration of IV contrast with MIPS, coronal and sagittalreconstructions. FINDINGS: CTA NECK: Common origin of the brachiocephalic and left common carotid artery. Thereis mild atherosclerotic plaques of the aortic arch. Origin of arch vesselsare patent without stenosis. The innominate and bilateral subclavianarteries are patent. The right common and internal carotid arteries are patent and unremarkable. The left common and internal carotid arteries are patent and unremarkable.Minimal atherosclerosis at the left carotid bulb without stenosis. The right vertebral artery is patentthroughout it's course up to thevertibrobasilar junction. The left vertebral artery is patent throughout it's course up to thevertibrobasilar junction. CTA HEAD: Bilateral intradural vertebral arteryand basilar artery are patent. Thesuperior cerebellar arteries are unremarkable. The posterior cerebralarteries are patent. origin left [employer]. Posterior communicating arteryis present on the right. There is atherosclerotic calcification of the carotid siphons. The distalcervical, petrous, cavernous and supraclinoid internal carotid arteries areunremarkable. The anterior and middle cerebral arteries are unremarkable. An anteriorcommunicating artery is visualized. The dural venous sinuses arepatent. [facility] HospitalCT ANGIOGRAM [id number] 14:22:26CT ANGIOGRAM NECK, CT ANGIOGRAM HEAD PROVIDED INDICATION: 49 years-old Male; Vision loss, binocular. ADDITIONAL HISTORY OBTAINED FROM ELECTRONIC MEDICAL RECORD: Right eyevision problems since 1116. COMPARISON: CT angiogram dated 02/14/2023 TECHNIQUE: ?CT angiography of the head and neck was performed after theadministration of IV contrast with MIPS, coronal and sagittalreconstructions. FINDINGS: CTA NECK: Common origin of the brachiocephalic and left common carotid artery. Thereis mild atherosclerotic plaques of the aortic arch. Origin of arch vesselsare patent without stenosis. The innominate and bilateral subclavianarteries are patent. The right common and internal carotid arteries are patent and unremarkable. The left common and internal carotid arteries are patent and unremarkable.Minimal atherosclerosis at the left carotid bulb without stenosis. The right vertebral artery is patentthroughout it's course up to thevertibrobasilar junction. The left vertebral artery is patent throughout it's course up to thevertibrobasilar junction. CTA HEAD: Bilateral intradural vertebral arteryand basilar artery are patent. Thesuperior cerebellar arteries are unremarkable. The posterior cerebralarteries are patent. origin left [employer]END[employer]. Posterior communicating arteryis present on the right. There is atherosclerotic calcification of the carotid siphons. The distalcervical, petrous, cavernous and supraclinoid internal carotid arteries areunremarkable. The anterior and middle cerebral arteries are unremarkable. An anteriorcommunicating artery is visualized. The dural venous sinuses arepatent. [facility] HospitalAmmonia, [id number] 01:53:46* Test Item Value Reference Range Interpretation Comme nts AMMONIA (test code = 2150389122) 9-33 L Lab Interpretation (test cod e = 37327-4) Abnormal [facility] HospitalCT HEAD WO [id number] 00:18:53EXAM: CT HEAD WO CONTRAST HISTORY: Right-sided eye pain. TECHNIQUE: Axial CT of the head was performed and reconstructed at 5 mmintervals. Coronal and sagittal reformatted images were generated. COMPARISON: CT head 01/23/2024 FINDINGS: Enlargement of the ventricles and sulci is suggestive of moderatecerebralvolume loss. No midline shift or pathological extra-axial fluid collectionis present. The basal cisterns are unremarkable. No acute intracranial hemorrhage or significant mass effect is visualized.Periventricular hypodensities are nonspecific but likely represent sequelaeof microvascular ischemic disease. The clements-white matter differentiation ispreserved. The mastoid air cells and visualized paranasal air sinuses are clear. Priorright frontal craniotomy/brain biopsy changes. The calvarium and centralskull base are otherwise unremarkable. [facility] HospitalValproic Acid, [id number] 23:39:12* Test Item Value Reference Range Interpretation Comme nts Valproic Acid, Free (test code = 7400451139) 11.7 ug/mL 4.0-15.0 [place] (test code = [place]) Toxic Range: ? Greater than 15 ug/mL Test developed and characteristics determined by [facility] [[email or web address]] Laboratory Services. Lab Interpretation (test code = 74674-4) Normal [facility] HospitalSedimentation [id number] 22:59:54* Test Item Value Reference Range Interpretation Comme nts ESR (test code = 27731-2) 2 2-30 Lab Interpretation (test cod e = 94023-9) Normal [facility] HospitalBASIC METABOLIC PANEL (NA, K, CL, CO2, GLUCOSE, BUN, CREATININE, CA)2024-06-12 22:32:44* Test Item Value Reference Range Interpretation Comme nts NA (test code = 4913984357) 143 mmol/L 135-145 K (test code = 0069959380) 3.7 mmol/L 3.5-5.0 CL (test code = 1594061384) 106 mmol/L 98-108 CO2 TOTAL (test code = 4078855497) 32 mmol/L 23-31 H AGAP (test code = 8585587336) 5 2-16 BUN (test code = 8578342955) 16 mg/dL 7-23 GLUCOSE (test code = 1715864567) 151 mg/dL 70-110 H CREATININE (test code = 2160-0) 0.71 mg/dL 0.60-1.25 CALCIUM (test code = 4452812350) 8.6 mg/dL 8.6-10.6 eGFR (test code = 59791-8) 111.1 mL/min/1.73m2 CKD-EPI eGFR (2020). Assuming creatinine has been stable day-to-day for at least three months, the eGFR indicates Category G1 (>= 90 mL/min/1.73 m2) Lab Interpretation (test code = 58585-0) Abnormal [facility] HospitalHEPATIC FUNCTION PANEL (88637) (ALB,T.PRO,BILI T,BU/BC,ALT,AST,ALK PHOS)2024-06-12 22:32:44* Test Item Value Reference Range Interpretation Comme nts TOTAL BILI (test code = 5546611756) 0.3 mg/dL 0.1-1.1 BILI UNCON (test code = 0979899032) 0.0 mg/dL 0.1-1.1 L BILI CONJ (test code = 1064339623) 0.0 mg/dL 0.0-0.3 T PROTEIN (test code = 5190700457) 5.5 g/dL 6.3-8.2 L ALBUMIN (test code = 9950765919) 3.5 g/dL 3.5-5.0 ALK PHOS (test code = 2067732190) 59 U/L 34-122 ALTv (test code = 1742-6) 20 U/L 5-50 AST(SGOT) (test code = 6441718165) 20 U/L 13-40 Lab Interpretation (test cod e = 45025-9) Abnormal [facility] HospitalCreatine [id number] 22:32:44* Test Item Value Reference Range Interpretation Comme nts CK (test code = 2605066503) 46 U/L 33-194 Lab Interpretation (test cod e = 15077-2) Normal [facility] HospitalCBC WITH [id number] 22:13:19* Test Item Value Reference Range Interpretation Comme nts WBC (test code = 6690-2) 5.10 4.20-10.70 RBC (test code = 789-8) 3.88 4.26-5.52 L HGB (test code = 718-7) 11.6 g/dL 12.2-16.4 L HCT (test code = 4544-3) 36.9 % 38.4-49.3 L MCV (test code = 787-2) 95.1 fL 81.7-95.6 MCH (test code = 785-6) 29.9 pg 26.1-32.7 MCHC (test code = 786-4) 31.4 g/dL 31.2-35.0 RDW-SD (test code = 54105-9) 51.2 fL 38.5-51.6 RDW-CV (test code = 788-0) 14.6 % 12.1-15.4 PLT (test code = 777-3) 202 150-328 MPV (test code = 27705-9) 10.8 fL 9.8-13.0 NRBC/100 WBC (test code = 3664572354) 0.0 0.0-10.0 NRBC x10^3 (test code = 5468207229) See_Comment [Automated messa ge] The system which generated this result transmitted reference range: 10*3/?L. The reference range was not used to interpret this result as normal/abnormal. GRAN MAT (NEUT) % (test code = 770-8) 67.1 % IMM GRAN % (test code = 5712023378) 0.40 % LYMPH % (test code = 736-9) 23.9 % MONO % (test code = 5905-5) 8.0 % EOS % (test code = 713-8) 0.2 % BASO % (test code = 706-2) 0.4 % GRAN MAT x10^3(ANC) (test code = 2969452919) 3.42 10*3/uL 1.99-6.95 IMM GRAN x10^3 (test code = 2925501287) 0.00-0.06 LYMPH x10^3 (test code = 731-0) 1.22 10*3/uL 1.09-3.23 MONO x10^3 (test code = 742-7) 0.41 10*3/uL 0.36-1.02 EOS x10^3 (test code = 711-2) 0.06-0.53 L BASO x10^3 (test code = 704-7) 0.01-0.09 Lab Interpretation (test code = 79738-5) Abnormal [facility] with [id number] 18:42:16* Test Item Value Reference Range Interpretation Comme nts WBC (test code = 6690-2) 2.49 4.20-10.70 L RBC (test code = 789-8) 4.45 4.26-5.52 HGB (test code = 718-7) 13.3 g/dL 12.2-16.4 HCT (test code = 4544-3) 40.3 % 38.4-49.3 MCV (test code = 787-2) 90.6 fL 81.7-95.6 MCH (test code = 785-6) 29.9 pg 26.1-32.7 MCHC (test code = 786-4) 33.0 g/dL 31.2-35.0 RDW-SD (test code = 50859-6) 56.3 fL 38.5-51.6 H RDW-CV (test code = 788-0) 17.0 % 12.1-15.4 H PLT (test code = 777-3) 186 150-328 MPV (test code = 15061-0) 9.6 fL 9.8-13.0 L NRBC/100 WBC (test code = 8955281733) 0.0 0.0-10.0 NRBC x10^3 (test code = 4015758469) See_Comment [Automated messa ge] The system which generated this result transmitted reference range: 10*3/?L. The reference range was not used to interpret this result as normal/abnormal. GRAN MAT (NEUT) % (test code = 770-8) 51.0 % IMM GRAN % (test code = 7471619508) 1.20 % LYMPH % (test code = 736-9) 33.3 % MONO % (test code = 5905-5) 13.3 % EOS % (test code = 713-8) 0.4 % BASO % (test code = 706-2) 0.8 % GRAN MAT x10^3(ANC) (test code = 3440464377) 1.27 10*3/uL 1.99-6.95 L IMM GRAN x10^3 (test code = 9466511553) 0.03 10*3/uL 0.00-0.06 LYMPH x10^3 (test code = 731-0) 0.83 10*3/uL 1.09-3.23 L MONO x10^3 (test code = 742-7) 0.33 10*3/uL 0.36-1.02 L EOS x10^3 (test code = 711-2) 0.06-0.53 L BASO x10^3 (test code = 704-7) 0.01-0.09 REACT LYMPHS (test code = 1902804519) Rare Lab Interpretation (test code = 78886-5) Abnormal [facility] HospitalComp. Metabolic Panel (99742)2024-05-01 18:11:42* Test Item Value Reference Range Interpretation Comme nts NA (test code = 2819487089) 139 mmol/L 135-145 K (test code = 6907441872) 3.9 mmol/L 3.5-5.0 CL (test code = 7101695650) 100 mmol/L 98-108 CO2 TOTAL (test code = 8248472292) 30 mmol/L 23-31 AGAP (test code = 1094115538) 9 2-16 BUN (test code = 4314897880) 12 mg/dL 7-23 GLUCOSE (test code = 9114762682) 121 mg/dL 70-110 H CREATININE (test code = 2160-0) 0.68 mg/dL 0.60-1.25 TOTAL BILI (test code = 8171731809) 0.4 mg/dL 0.1-1.1 CALCIUM (test code = 9926784094) 9.4 mg/dL 8.6-10.6 T PROTEIN (test code = 9998630312) 6.0 g/dL 6.3-8.2 L ALBUMIN (test code = 6205150934) 4.0 g/dL 3.5-5.0 ALK PHOS (test code = 4894086382) 78 U/L 34-122 ALTv (test code = 1742-6) 23 U/L 5-50 AST(SGOT) (test code = 4380604346) 22 U/L 13-40 eGFR (test code = 14392-2) 112.5 mL/min/1.73m2 CKD-EPI eGFR (2020). Assuming creatinine has been stable day-to-day for at least three months, the eGFR indicates Category G1 (>= 90 mL/min/1.73 m2) Lab Interpretation (test code = 75735-2) Abnormal [facility] GLUCOSE (AUTOMATED)2024-02-13 22:10:52* Test Item Value Reference Range Interpretation Comme nts POCT GLU (test code = 4016621536) 221 mg/dL 70-110 H Lab Interpretation (test cod e = 07504-5) Abnormal [facility] GLUCOSE (AUTOMATED)2024-02-13 16:36:56* Test Item Value Reference Range Interpretation Comme nts POCT GLU (test code = 4161936317) 157 mg/dL 70-110 H Lab Interpretation (test cod e = 77082-5) Abnormal [facility] GLUCOSE (AUTOMATED)2024-02-13 12:49:06* Test Item Value Reference Range Interpretation Comme nts POCT GLU (test code = 4001502843) 79 mg/dL 70-110 Lab Interpretation (test cod e = 30877-6) Normal [facility] GLUCOSE (AUTOMATED)2024-02-13 00:52:17* Test Item Value Reference Range Interpretation Comme nts POCT GLU (test code = 3500969156) 298 mg/dL 70-110 H Lab Interpretation (test cod e = 81598-5) Abnormal [facility] GLUCOSE (AUTOMATED)2024-02-12 22:11:25* Test Item Value Reference Range Interpretation Comme nts POCT GLU (test code = 2598054915) 222 mg/dL 70-110 H Lab Interpretation (test cod e = 56214-8) Abnormal [facility] GLUCOSE (AUTOMATED)2024-02-12 16:58:15* Test Item Value Reference Range Interpretation Comme nts POCT GLU (test code = 7628478709) 126 mg/dL 70-110 H Lab Interpretation (test cod e = 34017-8) Abnormal [facility] GLUCOSE (AUTOMATED)2024-02-12 13:18:16* Test Item Value Reference Range Interpretation Comme nts POCT GLU (test code = 3898999243) 59 mg/dL 70-110 L Lab Interpretation (test cod e = 86032-8) [facility] 02:18:24* Test Item Value Reference Range Interpretation Comme nts POCT GLU (test code = 0435465408) 205 mg/dL 70-110 H Lab Interpretation (test cod e = 70308-6) Abnormal [facility] GLUCOSE (AUTOMATED)2024-02-11 21:48:49* Test Item Value Reference Range Interpretation Comme nts POCT GLU (test code = 1960144787) 217 mg/dL 70-110 H Lab Interpretation (test cod e = 18458-1) Abnormal [facility] GLUCOSE (AUTOMATED)2024-02-11 16:35:14* Test Item Value Reference Range Interpretation Comme nts POCT GLU (test code = 7642682092) 189 mg/dL 70-110 H Lab Interpretation (test cod e = 59446-2) Abnormal [facility] GLUCOSE (AUTOMATED)2024-02-11 14:04:59* Test Item Value Reference Range Interpretation Comme nts POCT GLU (test code = 9113127343) 65 mg/dL 70-110 L Lab Interpretation (test cod e = 80953-5) Abnormal [facility] GLUCOSE (AUTOMATED)2024-02-11 12:39:29* Test Item Value Reference Range Interpretation Comme nts POCT GLU (test code = 5295870533) 73 mg/dL 70-110 Lab Interpretation (test cod e = 58628-2) Normal [facility] GLUCOSE (AUTOMATED)2024-02-11 08:56:46* Test Item Value Reference Range Interpretation Comme nts POCT GLU (test code = 2968975090) 127 mg/dL 70-110 H Lab Interpretation (test cod e = 33359-5) Abnormal [facility] GLUCOSE (AUTOMATED)2024-02-11 00:52:16* Test Item Value Reference Range Interpretation Comme nts POCT GLU (test code = 3374969609) 229 mg/dL 70-110 H Lab Interpretation (test cod e = 96976-2) [facility]normal [facility]2024-02-10 22:17:00* Test Item Value Reference Range Interpretation Comme nts POCT GLU (test code = 5919061544) 108 mg/dL 70-110 Lab Interpretation (test cod e = 26761-2) Normal [facility] HospitalSurgical Pathology [id number] 20:30:07* Test Item Value Reference Range Interpretation Comme nts Case Report (test code = 7184022264) Surgical Pathology ?Case: [id number] ? Authorizing Provider: ?Carine Bush MD ?Collected: ? 02/03/2024 0805 ?Ordering Location: ? ? [facility] OR ? Received: ?02/03/2024 1012 ? Department ? Pathologist: ? Danilo Maradiaga MD ? Specimens: ? A) - SOFT TISSUE, OTHER, LEFT EYE ORBITAL FAT ? B) - SOFT TISSUE, OTHER, LEFT LACRIMAL GLAND ? Addendum (test code = 8971771823) g9hsbIXcSBBadOYbGMRtD2n pcwZvPXJmnXDkF9ByrphlUP ybZN7rOL7pmDddbUNgrBIxP XXsIiCyo0cbl126bFGes8gg THLKfocfzRv5oDtbK38fn5I 4KtpkR00wdIAnEOH9LVLzVJ UzmRXxRXCbSWW9VTGrbEMyN 3toNHAeVQ2wuqptNXlsEQgl RIOdaXP6XCXkdAOfH0OmJUB uUAirTOCwelc7PpEjCh0jbQ VyeTcyMFxwYXJkXHBsYWluX WUxTmArEMKjZZ6jcD0cpA3f wjNac8T5QUNeREp4nU2sOIr udpDsaYi8afiavGBiCHViho ACQ6r4WExyvZXhq0lgc4ZnY 4jvfBjclHB5YY5yLMRuj1Aw WTNxOyHWKSswwLv0JCT4tOZ oIGFwcHJvcHJpYXRlIHBvc2 z6pDLyNFSnxwZlq9efONLlz lxwYXJcYiBBZGRpdGlvbmFs AVBeEVfna4RtlqfrWEYbfyr oVLflD0uixeW5MZ8cC4O6kU TdFCAlwoVHR6r7QVZrLIEbW OPsJKpeljEfj2GrPBTvmL7d sbXyBQDmguslCXGyKzYrC49 tbWVudDpccGFyIENENjggaW 5hqO0wnZnooR6oqPZlgDF0g yxsp90pZxNjv4ezr0BjFQXw z5QtBTuaO45tbDocrAHpuMZ oPoNaJU0uyeb8yDBzG4JeuA DfIC3qHAWiRgZ1QZ2eD4Xqq FrpC6HmMCQcs23ezFF9EKBg k6d5zQG0wEEiySHxdFMye0V 0qEPrZXv5jWXdq3R6wBxiBX B9DsUdXuicKEYaIUaeaeUsi ALqil5rVOYkYEIhJ3Jzc1Go W4mhwvDyJ8JyjIPkg7HqF0O fddWqf82wwJ37npXxmsXlXH 8nARGtr35fJRYzbxVWgTOen S78iOZpZpLjkx09SIPljFdd gSVgo1FrHEuqlLRgyavtABj iQ7cqceGvS49waLDafjDeJW Sku03zyBFtUR86SG2gOCYuR XNtYSBjZWxscyBhbmQgbHlt rTjcH8j4KDWbSSCqBPKdSSY 4XRWms0Efk4xoO6fzqLQ3GM 1rQ5GoUVogXFYzL0XmD3N0O QDeZWPnKIRhnJToDX3pjiWe r2SmIGCyo4AkQUbemqBkWzM chxJbYTCyiU1cRVUjDBSwLO ioE34qu1kzYU1cRPLaM0D3a 7KqAX7qtBjyPDstNVWkMXSw Iy8zMMZma64aa9vmaLFozTL sXMR1mOZcQrRDwVZrKDWmze SxPY2hAAfaAxgibR9ctXhhn xKgjkJ6uUMfS3UdxlPakFRs DZTgEOlnPB6vyWBfOQTwUnQ koC5qhVLiPBSnpy6= Final Diagnosis (test code = 7265831513) u3hcrROhHPGtb0mmHPNgvXY uZzEwMzNcZnRuYmpcdWMxIH pepqPwYNbkwMljMFB4KXQeN T6ixHgfqTw1xMvdWXDtidO4 rMSyCXgat7zzQOZ9n5ygfgw kXRXwHCpePm3plJUcuXjoFj UmRSZkKBj8aJ00FHOmvA9uf KVbZRv5UOTyqGPuxsIaKoZx TFKglIQnyOC3HGPdFJ4slzj iNEcdPMsgMZGxvvE5TOIwrR LsL0MtIONsPD5sevasWVK6P MgwZHZqILI5WwPcZMTbz8Zt nlj9ZxKmuSMgLElryGJthxo mczIwIEEsIEZJQlJPQURJUE 8QVNMKLXHZNTKbBORLB8sYE tDDVQLxRvrJTcPeSOeLYO9X QklUQUwgRkFUIiwgRVhDSVN VH702DIGqtqDuIJGbBGAdEK ZFODcCLHSMR4JUMFQPWtbJU NSGHXzMDbXFU54CRbJFIQKV FgWKLzBHUF9EQRLYV94loQH yDZXpwuQYUPYQLIAFHJ4GWD BHTEFORCwgREVTSUdOQVRFR LOrVNDUPMVtPOATC3vSUV5W DgwgCLBaZCAeGOJfHU0aDKi MPSvPBQwBQ46ZG5qWANNfZA FDUllPQURFTklUSVNccGFyI KXgSIQiLDSnIKNKZ3ROC5hC UxFACOEMSGdFY5QXIhjhC8V HXVTRUM1RBfJagMBlsUsexh RiJNxfx5KtZ7BrVpVxVUind nNpXGRlZmxhbmcxMDMzXGZ0 bmJqXHVjMVxkZWZmMHtcZm9 gpZPtzYmmZiQzYCJfk1wcip SLNYjzVhRgA972LBQzEPgwv 0mob5AoZQVoaDAhy4J8FHZB rmplaOk4e1zlGtXxVtK5kGN dATowG3tddoJnzXDfI1YpgL HszHe9tUoeQ94wq3Y0JkvuR 6tgHLCcFBThA3KuFW6sTSUe Idm6ZZJ2GFD8FELzMTCvO1N zIL0lBLXqmNSmAYv6l2hajM zwDZOgEOE4y0pkBOppffR0V W2ctd7tvMp5m8ffrrVdWIBr YBOroEWQIGOsF3KdtUpoWb2 kjRx6eYftRswrUSA9Daa7VB 7mba56tzi7eCdxEIUgyxfhC wS7AOjlPUAdnheqORz9NGps TXIhqGM7PJIrtUQmX4ZsTBQ pLE0ykgy6XSL3YZajEITfZg N6FPTfcCZjZWTgaPliKCdgh 519BZA1CrLsEG6sR9Olv4P6 vR0hxBRmVRMrlKXlMgCtVFO tuy3qwPXfTTept9CfGCZ8cp I1gXJstXYcBLRjLM24Wmroy 5ArKdnkPOU8OPVjiuDir8Qi g2piCjZcdgQxB0afU7WhEOK mIJQnYPQtSlZvcvDbv2Ulk4 UeeTZatEm5w5zvAJVfTRRhc Juul7wqAOR9LHRsG9R8yZZv y0smYVkaDVHemLD8zaQ2PFH hbTGjO0IlsM7bJVQxAR6jut g4m0xhIHX6SCkcMIUtFxP8g aI1YUYrcJZiSRJzhQmfHNav g023WMN8FwBrGYOrw6DkU0X buXjgT84hhCisM29hGAZuhW icbV4qdFvuuT0wVpJmPuExI FxxbFxwbGFpblxmMVxmczIw ZAdhlzbbSXSpGSwfL0oxZaQ yAYZlyBlgQEzbg3NqQRUzVD NmMlxmczIwXHBhciBJIGhhd nNvxQEbd87yLXylwNJpRATy VEcaDGPrtLgwb9MvD2qgPO1 rK1QjdNNqctNjcbAaHKtaWG Hvu4q7lUTdgEvts0VdzGBvU T05hyGhNIJnXSP6ZRVct4qa HJ44oqocLqTfbS59egLzyjE cXYZuy1uoA9gpeXOcb3Pir9 OwcbFrXQhoa0YrOV9ujZAjr vcbcCY0RAUytGCcnuKsncU8 aMbjLEPzcL2bmQ2xsAowgX7 eIcWmLkRlTWrgGO9qRPEgO1 lmvIKjSQVpKNFoX0awQnXeu O0ctFusMprtqlE7EXTneh65 Final Diagnosis Comment (test code = [id number]) j2qvmFBiGYUcuBIyNRVbY7g evuZzUOVmmEQtM1IynrrwOA ftMQ2rSN2rdXhjsFRotIHnG ATaNqZzy0oxm953aHHfa2rw MUYPfcifsRw2iKdaQ12em9N 5XeuvS46zdLBpJIV3UZJgMM KavOGeLWPxOTV2IKUgcHKrP 3lpBLJyNY3cmygcYQsoDIkb RPBoxIV4HIIonHByC5OnSIN sLUqmNJDkhiq3XwTeUg6hdP VyeTcyMFxwYXJkXHBsYWluX MKvEnOjWCrqF5NorGiqfiFa N09ydQAwmuFcphp8OBMiAuX pCAEucW7oGBM7vNWepEMhv2 v8sLFdcC8jeZAkMPBunxu9D VJocVmcrmHnu84rphZblACi mvPdicFiuDEuIGVakf8rbLY lOUZygmUDSoRRJbIac7KsmQ 6tXCXcUEM8zA8ttbGzVT4sh xK1aaY3BUNlVKNuuM7qsEKy nSHlHYQclxKmSLQyp0NcUFZ pHZBcbXTkh9HihWRdm0VyrI npe5DiDeMPhTLgvM6gqDinA YevD5VjpOUiYHnpWB6nRTIz JLKgTWWzjoOdRPJewmYwB0X cHCFfB9OoXuNav9DtsL5ig8 60H3ncHZXhW9UbuMItLLJiE EUudEPmjPKzO0TvrCJlPUJk HNHoRE0pQRBrCdB8e1IuoJX yY9T5eYFqUKPveYqtw9YvoS 84jPA2rLGwF0oehjIwEZPYT yHtlA70mn2oaSG0p8XnYX9j z2YvlVAlTPIwDDbdHFGuTSX tyF6zkV0luTAmGENhbTGxyf CszIWvXwG4mTQkjFVmmNQtq 6L3nRTmGII7SzSyOLIjZBdp fSmmQCHjmP3rqVPeMWOcsSD JZTv3nZJsy1B0oPYiUZOsGC J3IVOtGOM0aTCkiPylq9S7M ZToVGKmeXAbCW0wA6IsHaud c7NdiB8ufecjY55pWfdjuNZ dUZTlzIahxIYrH3FvxWXvnc EvayL5rZFjBEojyWdbq58sF PUjkSpviJ4wwFn5yhT1IZbp pA80DJCfmxB2xJSxqRNzaPA gp1L0gBHuGUL8DwAmWYAxSO FgRMteaBf2AEGax8XfnTsth 21hIGNlbGxzLiBccGFyXHBh yasjSWUyXDXnaP8ekCLnpLD xfl5ldNDtrI4uddIjIPAnlZ QgSWdHNCBkaXNlYXNlIGlzI ZPalcKuvbxqy8E3dHNcDVH4 a9MxzVwcB34dbTJeeWvxVEA laL71ii1wgLBsaiudRhUrd0 VbyIxrfYSloxPmC6YkWxnvF TBlGnPszIYvNQbdyBAzz8ha z1EfD1vkvQqxQVvqs8NtnU1 dMFdjvzXigJAcMr7xiSLwMJ 8lZBGym9IcMLMgNOajbDzcp LznDIIzqNldb2kaQwOrESL6 bHRzOlxwYXJccGFyICAgIC0 hV5VhDGllJQDfuL3nwZ2jiD OyQN2vfsvzztgiw0OgFJAmf 6C4c9Zkk80cZVLtjfTspTHk QJBiHY2lD0LnCis9SHMwJRP zZRKfCWdhBU6jvkdoredyQV SfZQCgjULpdLIutU0dDXVlf 4BhRWNacdSuGUEnQBBLMtq5 OX1cO6DqyEyyN3NwiDxpnSk wU3g6QOJbGGHvUYXlEKAtlg NnrcmlJYH9ihVvCIAzCWPll nRlZCBpbiBhbiBhZGRlbmR1 eGgxQBVrZKThLXLIP9x4EhY CDT6bgE9jBGAiNBUvSZBiUV QuoA3abWXgWUehNMQwXEMcI BScDWYyIHAvnopjUYLdG44m dHJvbCBzdGFpbnMgYXJlIGV 2KZf2TWZaNHOwf9ObGRIcsx 5yzlkseLZkv5YnoW6pizouO FxwYXJccGFyfQ== Clinical Information (test code = 8454993811) Orbital inflammation [H05.10] Gross Description (test code = 2995392638) c0ssfTFkFUByePBjUCPwF3b aolHsCZChrKEhR9SznukvJT ibZY2eTS9woOehpIRdfSXkY NYcBiNqy3rmg890yHHkm7kh LOOQpqpwzWi1jEgfB12iv1U 2YctaX96meAKwPMW8ZIWmMF WgsCRkGHZbNMH1UNPorOJgQ 7gnQIHnMA8pbakrMYtsNAvp XPXagJE2CEFgkGAvC8WsIKR mKGezFSWsydy8BgMmYg9pkL OevFtlBKosYhdgtGomx7Edl CBcXGlkIDUxMDAwIFxcbmgg CPa2PNWpOSdicOVuPF7gvCb oZhwqgQjax1DksYVfEZslON IqBEQqUNcuGYJlK9GVXNReO TRcPsJcIjVgARh4ZRm3EF1W UyAiICAyNjcxODAyMSIgOTk 8EXguUF9WCGQoISR6CpodSa XlCXF6BXyoDGn9OMLzBYeff mDrKPdgPgdnTQtjM36tkJHy ZFxwbGFpblxmczIwIFNQRUN JTUVOIEFccGFyXHBhcmRcc2 TkGTeoaOzrOWVvKuFkj2RwY SqtdHgoVYFjRbOlsWbmaJ3c ObZgGvWRmKFwaQ8ofbRWJTa uGYLuH5YmvmSeMUZzVLGwBG PwIIZtrPNvPNN5LJ36nAgaq ZcrK1IfVMjvXOHpig1quHej IGxhYmVsbGVkIHdpdGggdGh hHZZuoEccseUdX4Q6kiEuWO 4jRPYKVRBubW3sZISpBQYqS HsdKkXpODglZA6eOcn1AUmx XkE5YYmcNMgvOlIzPO9cAEX wzhTsr3RlXL9uOQXcl7mnF2 sjJHTfp7OjWX06EYZmv8Sex QRxmQetJ5Iwo9OooZVyoB03 OVtnXkYcPQZtCVZhRNcog2Z cEXFfb9F2WQIaFRX4RSBfSx A1GXWkCxWxbNgoZUUCbSBdl 9YlN6jqCQ8onGUga7HfwWs3 jGRzNHYwsBclHUq3BGQfHWX zuoNmT8ObhE7nH0Nsf7E9dO ZuIVQou9zqiYeae3MelLAvV V9xhFOdg5ujIRWugXLuTPD0 IFxcaWQgNTEwMDIgXFxkYiB PVlIgIiAxNDAzMzMzMSIgOT h3WIrhH6KKKBVbYMW4WsX8Y KR9LqH6EBt4ILKJWr4iNdY1 YaD4PGm0TCD5TEU8OKRbBFR gMiBcXHNzIDMgXFxmbCBcXG 4huVwgMRScUXJcIJB0QNGwy NODc9IvKAWkTdUgARHRYIQF NZ5RCdAYVMAkixfkWGKdPBM yHkOrHMYqK2mfVqQvTJHiKB ueLZZzAlUpO2JiA8twPJ0mH iBpcyByZWNlaXZlZCBmcmVz rLVfcxVnk4Fsv8IfpVWryVr 5IHBsYWNlZCBpbiBsYWJlbG imRVM9ePTsRYAcUDGsJVXqS X44GXgbSISzikYyAAwxZRel bbYuYwDqCTKnOUFrGXQ5FAb kK1YuqUPbJZihGU8fGSxrKS txSrIbJH2tDHSelgVcw4GjV S1iEYLpz5qeL0yoVATbc8Gw OD17MNWenFrwW8Bbr3ZkhNf trv88XX6jq2fnV1m3bYhgyT 5kdXJhdGVkIHNvZnQgdGlzc 7VpNDdfWHpoET99BYtvBA7n VKYdDT3wYOFtP0Etn11jldr wooT3LYVzcqKvYYEvmyvrfU NuSKXxuSdddVb3OZWtOmRfg GljIGFuZCBzbGlnaHRseSBp uvB1hwP5HZNgeBBdZX1khSi xTH0pSAKuEPAjuHYwyY0bup McqxQejMOuzDZ7RQXtZL18g FNufXpscK6oR6Qzr1R4lICr QjEuXHBhclxwYXJkXHBhclx oMMGiBANyhCZGe5XbDNBDkf MrZ1EsN7QaOGRsHYWvYO4XX tylFIDUWPEOHLqNW1KBUKIk z1jquMywl5RvyMIzDG47DWR rvJNmPDH3GD1scMcwBXT3 Disclaimer (test code = [id number]) o2cejLVqLYSvo5blBEAccNJ uZzEwMzNcZnRuYmpcdWMxIH iqtvQqBVzfw1LkP1RiXnYyK FxhbnNpXGRlZmxhbmcxMDMz HDX3spSsQEPpEDkzQXJqTJe xFc1ypALpfIyvGzMmFMKfp7 hzbcJKATitWnUoK855CGWqU Nxqi1abq5HkEJBcwHHpg8X8 UMWRboybfFh9hGsvC69lz2T 7ZfcdR3klXKBtARAvZ0ZcFH 3bUTLfRwd3XZT8IUF4IEXvB EDhS1QmXS6gFLKoaARkHBn4 i8hhhBkiABHnWAR2d4mvAOq pvxCdDB8htm1afRa7a1mrtc RuUKGpCTZtgTBQJXJsQ9Suj IscTb2qvEe7pKsbBmglMUT4 Kuy0YK6brf60itk4eDwjKCE hrgpkQxV8WMfhMJWinbvwGQ a4FOwbODJbdFI6DALyvABcC 7UdBJIuMD5itlh9FXM9LYss RFMdFsK1RMXkcIKrOOUnbPv yITxrb302EFB5VhCrVB0fL4 Nfa5U6hN0yyWYjBALfySUpR pPqHATrof5qmYSsUWlma9Op HWA5zgW1uFSqtHCjQNWuLJ9 3Cpyvp0YxTmswv9JcX12opH K5CXexm0ryZC2qDfO6wcVfI Jprv9ituA1bPlW6WVnxOD3o NY1aIIOpqL8bfskdUADgAgH rzzinJZOgkQmqkiWkVs2iiE ccUIC0YZsyE5fztX9vOzH5Z ThjH8bcvP8jBDb4XDwioBJ4 BCPzzW5sST1sxktps4ikIYx nSXgpLFTwcoA3ouO6LDRpbJ FtQ4SayJ7tDQQbVV2trlxwa 1uhVMG1BUqbOQDcUFW0PzDp SDYkc9Csupk8KyIle8MktPT sHQckI65hw311LIHnjeVfD8 xwbGFpblxwbGFpblxmMFxmc lV9ANTqvlUsn0PeQHHmKKX2 GJicZUoisVAnTMEukYmdq2r uZ0QqcWBdYSOpILezRGPxMM ZzMjBcbGFuZzEwMzNcaGlja ZrsDJqwYpGuQYJqJEihK1oa VrIpL4FfZNKmBkQytCScR8m yIYorkbZcKDNqhpJkuND2DQ weT9p7PZPyzgAqeOs9zrYnP uFpTGNaHDG0IMozjTCwHEGt a2JwcdhinWQaDu4oiVXpKLV ulG0uVOViIVCyGXifLB0coS j2EESTfEZktGGnMuYXXYIbX U56tnMjVXKAhptyz3T4ACos OCIfg1PdaFXiH2jtr9FgVEA zh18dHR0dw1M3l9qaXNQ9MY 1yx7MvZAEnlGMnjDEsBYBpa 4Xvqmlsc4TkEDFpnjQcq3Iq ZCBhbmQgaXRzIHBlcmZvcm1 wztZrDWPnXTPqO7FmzcnbqA xnfbSySTRidj9hwlBjPDT3C XFZCAGeIGXrb9MkxK1loUHP LRR4uNHlbu7oczVUiNAjDHW ahg59DZDkML1mL2gmZFWbVA QrbcQjbBJak7ZjOXJvwMR9d IBsMH3TPfMVl92ySBIxQVOM krOtWBXuiZwzqDQ5ccW9yA2 uIChGREEpLlx+IFRoZSBGRE EkNG6yiyGem6OzilPngFxgW DQhqNPrn0HdpWVez2VlsJlf l8DayHOpnGFkZX5bKZHagnf uJPZuSOJVDfDLARGwgpP0b6 RhESZdNMPaIMP5gOnttuc2U UCroY0pBHKmZ4zcbnxwDRhf DCJie8GzzO4bnGIGnPYgi3P hvECtxCSWjLOfXQ2rxaDqHA zIKVvEPYV7srFnXQOmb2AbS RabY9qqU54rkGljvBh7kVR7 JUF9vC9mSzg+IFxwYXJccGF yIEFwcHJvcHJpYXRlbHkgcm PlL9TauhChmR8iaCTxvoNoR H8bLL2xC5R8fESiMOOjcmOm t6beOJlyqlEqYwEvofTmLZN zCVtqKOSiu1RhJEemFMZ9YP lucyBpbmNsdWRpbmcgSCZFL IURoGBijRBvETA2HTgivrSr czPkZG1eyF2twJhcdJ5zmRK nxBR8lrfsPDUmHTQjwQvmQW QtYG3svGlgmF5hSlCdEgJqN YrtMN1dPDOqQ6ltoUXaZELu WAUjV4mmJiDbgZ1nzVrqGGi jZjJcZnMyMFxwYXJccGFyXH BsYWluXGYxXGZzMjBcbGFuZ zEwMzNcaGljaFxmMVxkYmNo SZZbAHlrB5aqGyZjT8UfSIH xEwDitSLnK3vpKLypDQW1DO QbDZ0xrZLlQA15zBGnk4gqO MbeaHnqyj5tY77twCStWUgb yUjyLZSuz20ov0XpUBTjjoD ebq1wYBDnkhL6dK2eMDAdaJ bsSAEvgICfOHEql2LqYXiub XRpemVkIGdsYXNzIHNsaWRl uoI9llDnejWztlZbMAUdgPl jLITmd6PbBXBiEHamo4Ebpi 5ccGFyXHBhciBBbGwgdGVja U8nK2NhTLQtUBSfvg1sFDTk tN7yNGisi3FlbysmRFDdBPR nESOudeLbcb6sXNZoqPQOOC 9YQQvsfABgf2KbigQjG8hLI NR7ZIFaMwXpRdqiZSOtqRAq jRKeRPPnhb83FLStgN5hpKz yEMBhqU1vuS9bjDhfpP0wCu TvGxDbTVbeRM7oLZGsJ6iht QVbDXWrZGSvR8xwMpFwpU6b aFxmMVxjZjJcZnMyMFxwYXJ 9fQ== Embedded Images (test code = 1861561764) [facility] GLUCOSE (AUTOMATED)2024-02-10 16:31:13* Test Item Value Reference Range Interpretation Comme nts POCT GLU (test code = 4465179563) 135 mg/dL 70-110 H Lab Interpretation (test cod e = 04045-9) Abnormal [facility] GLUCOSE (AUTOMATED)2024-02-10 12:31:08* Test Item Value Reference Range Interpretation Comme nts POCT GLU (test code = 0063264894) 129 mg/dL 70-110 H Lab Interpretation (test cod e = 32937-0) Abnormal [facility] GLUCOSE (AUTOMATED)2024-02-10 08:50:33* Test Item Value Reference Range Interpretation Comme nts POCT GLU (test code = 7043082643) 141 mg/dL 70-110 H Notified Provide r Lab Interpretation (test code = 42810-7) Abnormal [facility] GLUCOSE (AUTOMATED)2024-02-10 04:36:23* Test Item Value Reference Range Interpretation Comme nts POCT GLU (test code = 4929602237) 195 mg/dL 70-110 H Notified Provide r Lab Interpretation (test code = 08030-6) Abnormal [facility] GLUCOSE (AUTOMATED)2024-02-10 01:33:42* Test Item Value Reference Range Interpretation Comme nts POCT GLU (test code = 5506261359) 198 mg/dL 70-110 H Notified Provide r Lab Interpretation (test code = 37832-1) Abnormal [facility] Fluid Manual [id number] 21:17:51* Test Item Value Reference Range Interpretation Comme nts BF SEGS% (test code = 84690-3) 2 % 0-7 BF LYMPHS% (test code = 95505-7) 81 % 28-96 BF MACROPHAGE% (test code = 39788-6) 17 % 16-56 BF #CELLS CNTD (test code = 7100098901) 100 cells/uL [place] (test code = ST[place]FORD) Favor Reactive.Pos sible bacteria contamination. Reviewed by Griffin Young, Director of Hematopathology. [facility] GLUCOSE (AUTOMATED)2024-02-09 21:17:46* Test Item Value Reference Range Interpretation Comme nts POCT GLU (test code = 2626645911) 117 mg/dL 70-110 H Lab Interpretation (test cod e = 75573-4) Abnormal [facility] GLUCOSE (AUTOMATED)2024-02-09 17:03:23* Test Item Value Reference Range Interpretation Comme nts POCT GLU (test code = 3322528688) 171 mg/dL 70-110 H Lab Interpretation (test cod e = 18082-4) Abnormal [facility] GLUCOSE (AUTOMATED)2024-02-09 12:54:37* Test Item Value Reference Range Interpretation Comme nts POCT GLU (test code = 4674458000) 98 mg/dL 70-110 Lab Interpretation (test cod e = 65827-1) Normal [facility] GLUCOSE (AUTOMATED)2024-02-09 08:54:40* Test Item Value Reference Range Interpretation Comme nts POCT GLU (test code = 6443289821) 131 mg/dL 70-110 H Lab Interpretation (test cod e = 50871-7) Abnormal [facility] GLUCOSE (AUTOMATED)2024-02-09 03:55:26* Test Item Value Reference Range Interpretation Comme nts POCT GLU (test code = 1168200519) 154 mg/dL 70-110 H Lab Interpretation (test cod e = 05360-5) Abnormal [facility] GLUCOSE (AUTOMATED)2024-02-09 00:37:11* Test Item Value Reference Range Interpretation Comme nts POCT GLU (test code = 1106185368) 434 mg/dL 70-110 H Lab Interpretation (test cod e = 21853-2) [facility] 22:16:36* Test Item Value Reference Range Interpretation Comme nts POCT GLU (test code = 0214662630) 207 mg/dL 70-110 H Lab Interpretation (test cod e = 65115-5) [facility] 17:38:10* Test Item Value Reference Range Interpretation Comme nts POCT GLU (test code = 5095178234) 219 mg/dL 70-110 H Lab Interpretation (test cod e = 64694-8) [facility] 13:40:07* Test Item Value Reference Range Interpretation Comme nts POCT GLU (test code = 5919284832) 130 mg/dL 70-110 H Lab Interpretation (test cod e = 75879-2) Abnormal [facility] GLUCOSE (AUTOMATED)2024-02-08 07:52:57* Test Item Value Reference Range Interpretation Comme nts POCT GLU (test code = 9795618653) 156 mg/dL 70-110 H Lab Interpretation (test cod e = 93973-6) Abnormal [facility] GLUCOSE (AUTOMATED)2024-02-08 03:46:08* Test Item Value Reference Range Interpretation Comme nts POCT GLU (test code = 4180672602) 214 mg/dL 70-110 H Lab Interpretation (test cod e = 49507-3) Abnormal [facility] GLUCOSE (AUTOMATED)2024-02-08 00:51:34* Test Item Value Reference Range Interpretation Comme nts POCT GLU (test code = 7078270652) 293 mg/dL 70-110 H Lab Interpretation (test cod e = 67184-1) [facility] 22:25:31* Test Item Value Reference Range Interpretation Comme nts POCT GLU (test code = 7980244257) 301 mg/dL 70-110 H Lab Interpretation (test cod e = 09562-1) [facility] 21:08:11* Test Item Value Reference Range Interpretation Comme nts POCT GLU (test code = 4904841563) 304 mg/dL 70-110 H Lab Interpretation (test cod e = 09928-6) Abnormal [facility] Culture(Aerobic/Anaerobic)2024-02-07 18:50:59* Test Item Value Reference Range Interpretation Comme nts TISSUE CULTURE (test code = 80553-8) No aerobic/anaerobic organisms isolated Gram stain (test code = 664-3) No Polymorphonuclear leukocytes [facility] GLUCOSE (AUTOMATED)2024-02-07 16:55:37* Test Item Value Reference Range Interpretation Comme nts POCT GLU (test code = 8186533262) 392 mg/dL 70-110 H Lab Interpretation (test cod e = 92876-1) Abnormal [facility] GLUCOSE (AUTOMATED)2024-02-07 12:53:06* Test Item Value Reference Range Interpretation Comme nts POCT GLU (test code = 2516557547) 214 mg/dL 70-110 H Lab Interpretation (test cod e = 92660-1) Abnormal [facility] GLUCOSE (AUTOMATED)2024-02-07 08:56:48* Test Item Value Reference Range Interpretation Comme nts POCT GLU (test code = 0250272660) 210 mg/dL 70-110 H Notified Provide r Lab Interpretation (test code = 22523-6) Abnormal [facility] GLUCOSE (AUTOMATED)2024-02-07 04:17:07* Test Item Value Reference Range Interpretation Comme nts POCT GLU (test code = 5715015195) 267 mg/dL 70-110 H Notified Provide r Lab Interpretation (test code = 40701-0) Abnormal [facility] GLUCOSE (AUTOMATED)2024-02-07 01:06:30* Test Item Value Reference Range Interpretation Comme nts POCT GLU (test code = 9876469061) 308 mg/dL 70-110 H Notified Provide r Lab Interpretation (test code = 46707-7) Abnormal [facility] GLUCOSE (AUTOMATED)2024-02-06 21:01:56* Test Item Value Reference Range Interpretation Comme nts POCT GLU (test code = 6000152227) 381 mg/dL 70-110 H Lab Interpretation (test cod e = 20220-8) Abnormal [facility] Culture(Aerobic/Anaerobic)2024-02-06 19:10:18* Test Item Value Reference Range Interpretation Comme nts TISSUE CULTURE (test code = 68191-1) No aerobic/anaerobic organisms isolated Gram stain (test code = 664-3) Few Polymorphonuclear leukocytes [facility] Culture(Aerobic/Anaerobic)2024-02-06 19:10:18* Test Item Value Reference Range Interpretation Comme nts TISSUE CULTURE (test code = 23076-3) No aerobic/anaerobic organisms isolated Gram stain (test code = 664-3) Few [facility]ymorphonuclear leukocytes [facility] [id number] 17:58:04EXAM: XR CHEST 1 VW HISTORY: 48 years-old Male with screening . TECHNIQUE: Single frontal view of the chest. COMPARISON: Chest radiograph dated 01/23/2024, CT chest dated 02/01/2024 FINDINGS: Lungs and pleura: Mild low lung volumes. No focal opacities or pleuralabnormality is visualized. Chronic blunting of left costophrenic sulcuscould be related to pleural thickening or prominent fat pad. Minimalch ronic peribronchial wall thickening. Heart/Mediastinum: The cardiac silhouette appears at the upperlimits ofnormal accounting for technique and degree of inspiration. Bones and soft tissues: No acute osseous abnormality is visualized. [facility] [id number] 17:58:04EXAM: XR CHEST 1 VW HISTORY: 48 years-old Male with screening . TECHNIQUE: Single frontal view of the chest. COMPARISON: Chest radiograph dated 01/23/2024, CT chest dated 02/01/2024 FINDINGS: Lungs and pleura: Mild low lung volumes. No focal opacities or pleuralabnormality is visualized. Chronic blunting of left costophrenic sulcuscould be related to pleural thickening or prominent fat pad. Minimalch ronic peribronchial wall thickening. Heart/Mediastinum: The cardiac silhouette appears at the upperlimits ofnormal accounting for technique and degree of inspiration. Bones and soft tissues: No acute osseous abnormality is visualized. [facility] GLUCOSE (AUTOMATED)2024-02-06 17:03:50* Test Item Value Reference Range Interpretation Comme nts POCT GLU (test code = 2274584972) 356 mg/dL 70-110 H Lab Interpretation (test cod e = 96241-7) [facility] 17:03:50* Test Item Value Reference Range Interpretation Comme nts POCT GLU (test code = 9886432635) 356 mg/dL 70-110 H Lab Interpretation (test cod e = 76079-5) [facility] 13:07:48* Test Item Value Reference Range Interpretation Comme nts POCT GLU (test code = 6506933998) 248 mg/dL 70-110 H Lab Interpretation (test cod e = 16721-8) [facility] 13:07:48* Test Item Value Reference Range Interpretation Comme nts POCT GLU (test code = 8509373436) 248 mg/dL 70-110 H Lab Interpretation (test cod e = 88958-3) Abnormal [facility] GLUCOSE (AUTOMATED)2024-02-06 08:44:04* Test Item Value Reference Range Interpretation Comme nts POCT GLU (test code = 0611204306) 246 mg/dL 70-110 H Lab Interpretation (test cod e = 36613-6) [facility] 08:44:04* Test Item Value Reference Range Interpretation Comme nts POCT GLU (test code = 7975107790) 246 mg/dL 70-110 H Lab Interpretation (test cod e = 25685-0) Abnormal [facility] GLUCOSE (AUTOMATED)2024-02-06 04:08:26* Test Item Value Reference Range Interpretation Comme nts POCT GLU (test code = 1868415151) 246 mg/dL 70-110 H Lab Interpretation (test cod e = 87217-7) [facility] 04:08:26* Test Item Value Reference Range Interpretation Comme nts POCT GLU (test code = 1608730664) 246 mg/dL 70-110 H Lab Interpretation (test cod e = 65819-7) [facility] 00:46:19* Test Item Value Reference Range Interpretation Comme nts POCT GLU (test code = 1088419959) 311 mg/dL 70-110 H Notified Provide r Lab Interpretation (test code = 06039-4) Abnormal [facility] GLUCOSE (AUTOMATED)2024-02-06 00:46:19* Test Item Value Reference Range Interpretation Comme nts POCT GLU (test code = 5073505837) 311 mg/dL 70-110 H Notified Provide r Lab Interpretation (test code = 74183-7) Abnormal [facility] GLUCOSE (AUTOMATED)2024-02-05 22:32:49* Test Item Value Reference Range Interpretation Comme nts POCT GLU (test code = 1300788890) 325 mg/dL 70-110 H Lab Interpretation (test cod e = 55814-8) Abnormal [facility] GLUCOSE (AUTOMATED)2024-02-05 22:32:49* Test Item Value Reference Range Interpretation Comme nts POCT GLU (test code = 6501927523) 325 mg/dL 70-110 H Lab Interpretation (test cod e = 02609-9) Abnormal [facility] GLUCOSE (AUTOMATED)2024-02-05 17:31:47* Test Item Value Reference Range Interpretation Comme nts POCT GLU (test code = 1644236910) 308 mg/dL 70-110 H Lab Interpretation (test cod e = 89258-8) Abnormal [facility] GLUCOSE (AUTOMATED)2024-02-05 17:31:47* Test Item Value Reference Range Interpretation Comme nts POCT GLU (test code = 6062966359) 308 mg/dL 70-110 H Lab Interpretation (test cod e = 61698-2) Abnormal [facility] GLUCOSE (AUTOMATED)2024-02-05 13:11:51* Test Item Value Reference Range Interpretation Comme nts POCT GLU (test code = 2490370204) 343 mg/dL 70-110 H Lab Interpretation (test cod e = 45594-9) Abnormal [facility] GLUCOSE (AUTOMATED)2024-02-05 13:11:51* Test Item Value Reference Range Interpretation Comme nts POCT GLU (test code = 0545936216) 343 mg/dL 70-110 H Lab Interpretation (test cod e = 67726-4) Abnormal [facility] [id number] 12:22:55* Test Item Value Reference Range Interpretation Comme nts EYE CULTURE (test code = 609-8) No aerobic organisms isolated Gram stain (test code = 664-3) No Mononuclear cells [facility] [id number] 12:22:55* Test Item Value Reference Range Interpretation Comme nts EYE CULTURE (test code = 609-8) No aerobic organisms isolated Gram stain (test code = 664-3) No Mononuclear cells [facility] GLUCOSE (AUTOMATED)2024-02-05 09:51:00* Test Item Value Reference Range Interpretation Comme nts POCT GLU (test code = 4273669584) 349 mg/dL 70-110 H Notified Provide r Lab Interpretation (test code = 75000-4) Abnormal [facility] GLUCOSE (AUTOMATED)2024-02-05 09:51:00* Test Item Value Reference Range Interpretation Comme nts POCT GLU (test code = 4668864697) 349 mg/dL 70-110 H Notified Provide r Lab Interpretation (test code = 24923-5) Abnormal [facility] GLUCOSE (AUTOMATED)2024-02-05 07:23:31* Test Item Value Reference Range Interpretation Comme nts POCT GLU (test code = 5439381585) 318 mg/dL 70-110 H Lab Interpretation (test cod e = 63885-5) Abnormal [facility] GLUCOSE (AUTOMATED)2024-02-05 07:23:31* Test Item Value Reference Range Interpretation Comme nts POCT GLU (test code = 0012799420) 318 mg/dL 70-110 H Lab Interpretation (test cod e = 53575-9) Abnormal [facility] GLUCOSE (AUTOMATED)2024-02-05 04:11:17* Test Item Value Reference Range Interpretation Comme nts POCT GLU (test code = 2907760334) 349 mg/dL 70-110 H Notified Provide r Lab Interpretation (test code = 06329-7) Abnormal [facility] GLUCOSE (AUTOMATED)2024-02-05 04:11:17* Test Item Value Reference Range Interpretation Comme nts POCT GLU (test code = 2888832638) 349 mg/dL 70-110 H Notified Provide r Lab Interpretation (test code = 38153-4) Abnormal [facility] GLUCOSE (AUTOMATED)2024-02-05 00:59:28* Test Item Value Reference Range Interpretation Comme nts POCT GLU (test code = 0394208903) 388 mg/dL 70-110 H Notified Provide r Lab Interpretation (test code = 63513-1) [facility]:59:28* Test Item Value Reference Range Interpretation Comme nts POCT GLU (test code = 0222345564) 388 mg/dL 70-110 H Notified Provide r Lab Interpretation (test code = 42662-1) Abnormal [facility] GLUCOSE (AUTOMATED)2024-02-04 23:17:30* Test Item Value Reference Range Interpretation Comme nts POCT GLU (test code = 4165364982) 416 mg/dL 70-110 H Lab Interpretation (test cod e = 27143-8) Abnormal [facility] GLUCOSE (AUTOMATED)2024-02-04 23:17:30* Test Item Value Reference Range Interpretation Comme nts POCT GLU (test code = 7117760967) 416 mg/dL 70-110 H Lab Interpretation (test cod e = 60897-9) Abnormal [facility] GLUCOSE (AUTOMATED)2024-02-04 21:27:35* Test Item Value Reference Range Interpretation Comme nts POCT GLU (test code = 9540968330) 408 mg/dL 70-110 H Lab Interpretation (test cod e = 26765-7) Abnormal [facility] GLUCOSE (AUTOMATED)2024-02-04 21:27:35* Test Item Value Reference Range Interpretation Comme nts POCT GLU (test code = 8531057547) 408 mg/dL 70-110 H Lab Interpretation (test cod e = 75510-6) Abnormal [facility] GLUCOSE (AUTOMATED)2024-02-04 17:55:59* Test Item Value Reference Range Interpretation Comme nts POCT GLU (test code = 8528333670) 387 mg/dL 70-110 H Lab Interpretation (test cod e = 88604-8) Abnormal [facility] GLUCOSE (AUTOMATED)2024-02-04 17:55:59* Test Item Value Reference Range Interpretation Comme nts POCT GLU (test code = 0497306940) 387 mg/dL 70-110 H Lab Interpretation (test cod e = 78649-1) Abnormal [facility] GLUCOSE (AUTOMATED)2024-02-04 14:31:49* Test Item Value Reference Range Interpretation Comme nts POCT GLU (test code = 7230426879) 286 mg/dL 70-110 H Lab Interpretation (test cod e = 40152-7) Abnormal [facility] GLUCOSE (AUTOMATED)2024-02-04 14:31:49* Test Item Value Reference Range Interpretation Comme nts POCT GLU (test code = 0588534587) 286 mg/dL 70-110 H Lab Interpretation (test cod e = 09120-9) Abnormal [facility] Metabolic Panel (NA, K, CL, CO2, GLUCOSE, BUN, CREATININE, CA)2024-02-04 05:26:10* Test Item Value Reference Range Interpretation Comme nts NA (test code = 6811009097) 135 mmol/L 135-145 K (test code = 5919062696) 5.1 mmol/L 3.5-5.0 H Slight hemolysis CL (test code = 5912375746) 101 mmol/L 98-108 CO2 TOTAL (test code = 4382594199) 27 mmol/L 23-31 AGAP (test code = 5069829515) 7 2-16 BUN (test code = 0683168918) 20 mg/dL 7-23 Slight hemolysis GLUCOSE (test code = 5466721092) 282 mg/dL 70-110 H CREATININE (test code = 2160-0) 0.79 mg/dL 0.60-1.25 CALCIUM (test code = 6428556816) 9.6 mg/dL 8.6-10.6 eGFR (test code = 13431-8) 108.2 mL/min/1.73m2 CKD-EPI eGFR (2020). Assuming creatinine has been stable day-to-day for at least three months, the eGFR indicates Category G1 (>= 90 mL/min/1.73 m2) Lab Interpretation (test code = 45883-0) [facility] Test Item Value Reference Range Interpretation Comme nts MAGNESIUM (test code = 4029292956) 1.9 mg/dL 1.7-2.4 Lab Interpretation (test cod e = 95414-2) Normal [facility] Metabolic Panel (NA, K, CL, CO2, GLUCOSE, BUN, CREATININE, CA)2024-02-04 05:26:10* Test Item Value Reference Range Interpretation Comme nts NA (test code = 7268354036) 135 mmol/L 135-145 K (test code = 4265535311) 5.1 mmol/L 3.5-5.0 H Slight hemolysis CL (test code = 5235122080) 101 mmol/L 98-108 CO2 TOTAL (test code = 5367945055) 27 mmol/L 23-31 AGAP (test code = 9770566078) 7 2-16 BUN (test code = 0260302037) 20 mg/dL 7-23 Slight hemolysis GLUCOSE (test code = 4396252136) 282 mg/dL 70-110 H CREATININE (test code = 2160-0) 0.79 mg/dL 0.60-1.25 CALCIUM (test code = 7230239695) 9.6 mg/dL 8.6-10.6 eGFR (test code = 03385-4) 108.2 mL/min/1.73m2 CKD-EPI eGFR (2020). Assuming creatinine has been stable day-to-day for at least three months, the eGFR indicates Category G1 (>= 90 mL/min/1.73 m2) Lab Interpretation (test code = 95487-7) [facility]:26:10* Test Item Value Reference Range Interpretation Comme nts MAGNESIUM (test code = 9610507288) 1.9 mg/dL 1.7-2.4 Lab Interpretation (test cod e = 36391-5) Normal [facility] with Ghja5763-21-55 05:19:32* Test Item Value Reference Range Interpretation Comme nts WBC (test code = 6690-2) 8.46 4.20-10.70 RBC (test code = 789-8) 4.22 4.26-5.52 L HGB (test code = 718-7) 11.7 g/dL 12.2-16.4 L HCT (test code = 4544-3) 35.5 % 38.4-49.3 L MCV (test code = 787-2) 84.1 fL 81.7-95.6 MCH (test code = 785-6) 27.7 pg 26.1-32.7 MCHC (test code = 786-4) 33.0 g/dL 31.2-35.0 RDW-SD (test code = 73941-2) 42.1 fL 38.5-51.6 RDW-CV (test code = 788-0) 13.9 % 12.1-15.4 PLT (test code = 777-3) 488 150-328 H MPV (test code = 60135-9) 9.2 fL 9.8-13.0 L NRBC/100 WBC (test code = 7714482966) 0.0 0.0-10.0 NRBC x10^3 (test code = 6586805536) See_Comment [Automated messa ge] The system which generated this result transmitted reference range: 10*3/?L. The reference range was not used to interpret this result as normal/abnormal. GRAN MAT (NEUT) % (test code = 770-8) 88.9 % IMM GRAN % (test code = 7378514533) 0.80 % LYMPH % (test code = 736-9) 9.3 % MONO % (test code = 5905-5) 0.7 % EOS % (test code = 713-8) 0.1 % BASO % (test code = 706-2) 0.2 % GRAN MAT x10^3(ANC) (test code = 6291529498) 7.51 10*3/uL 1.99-6.95 H IMM GRAN x10^3 (test code = 8702389753) 0.07 10*3/uL 0.00-0.06 H LYMPH x10^3 (test code = 731-0) 0.79 10*3/uL 1.09-3.23 L MONO x10^3 (test code = 742-7) 0.06 10*3/uL 0.36-1.02 L EOS x10^3 (test code = 711-2) 0.06-0.53 L BASO x10^3 (test code = 704-7) 0.01-0.09 Lab Interpretation (test code = 97676-3) Abnormal [facility] with Otrs6588-71-95 05:19:32* Test Item Value Reference Range Interpretation Comme nts WBC (test code = 6690-2) 8.46 4.20-10.70 RBC (test code = 789-8) 4.22 4.26-5.52 L HGB (test code = 718-7) 11.7 g/dL 12.2-16.4 L HCT (test code = 4544-3) 35.5 % 38.4-49.3 L MCV (test code = 787-2) 84.1 fL 81.7-95.6 MCH (test code = 785-6) 27.7 pg 26.1-32.7 MCHC (test code = 786-4) 33.0 g/dL 31.2-35.0 RDW-SD (test code = 93452-2) 42.1 fL 38.5-51.6 RDW-CV (test code = 788-0) 13.9 % 12.1-15.4 PLT (test code = 777-3) 488 150-328 H MPV (test code = 37453-5) 9.2 fL 9.8-13.0 L NRBC/100 WBC (test code = 2289464175) 0.0 0.0-10.0 NRBC x10^3 (test code = 1325988026) See_Comment [Automated messa ge] The system which generated this result transmitted reference range: 10*3/?L. The reference range was not used to interpret this result as normal/abnormal. GRAN MAT (NEUT) % (test code = 770-8) 88.9 % IMM GRAN % (test code = 7226873305) 0.80 % LYMPH % (test code = 736-9) 9.3 % MONO % (test code = 5905-5) 0.7 % EOS % (test code = 713-8) 0.1 % BASO % (test code = 706-2) 0.2 % GRAN MAT x10^3(ANC) (test code = 6727842130) 7.51 10*3/uL 1.99-6.95 H IMM GRAN x10^3 (test code = 0567957185) 0.07 10*3/uL 0.00-0.06 H LYMPH x10^3 (test code = 731-0) 0.79 10*3/uL 1.09-3.23 L MONO x10^3 (test code = 742-7) 0.06 10*3/uL 0.36-1.02 L EOS x10^3 (test code = 711-2) 0.06-0.53 L BASO x10^3 (test code = 704-7) 0.01-0.09 Lab Interpretation (test code = 03162-2) Abnormal [facility] GLUCOSE (AUTOMATED)2024-02-04 01:49:19* Test Item Value Reference Range Interpretation Comme nts POCT GLU (test code = 7669620732) 271 mg/dL 70-110 H Lab Interpretation (test cod e = 56640-2) Abnormal [facility] GLUCOSE (AUTOMATED)2024-02-04 01:49:19* Test Item Value Reference Range Interpretation Comme nts POCT GLU (test code = 1189558596) 271 mg/dL 70-110 H Lab Interpretation (test cod e = 52284-4) Abnormal [facility] GLUCOSE (AUTOMATED)2024-02-03 22:41:28* Test Item Value Reference Range Interpretation Comme nts POCT GLU (test code = 7671605106) 220 mg/dL 70-110 H Lab Interpretation (test cod e = 18450-7) Abnormal [facility] GLUCOSE (AUTOMATED)2024-02-03 22:41:28* Test Item Value Reference Range Interpretation Comme nts POCT GLU (test code = 6714815700) 220 mg/dL 70-110 H Lab Interpretation (test cod e = 13354-8) Abnormal [facility] GLUCOSE (AUTOMATED)2024-02-03 17:30:51* Test Item Value Reference Range Interpretation Comme nts POCT GLU (test code = 0253488159) 155 mg/dL 70-110 H Lab Interpretation (test cod e = 76107-0) Abnormal [facility] GLUCOSE (AUTOMATED)2024-02-03 17:30:51* Test Item Value Reference Range Interpretation Comme nts POCT GLU (test code = 9317312240) 155 mg/dL 70-110 H Lab Interpretation (test cod e = 46752-6) [facility]normal [facility] 12:34:00Aminah Watkins CRNA ? ? 02/03/2024 ?7:50 AMIntubationDate/Time: 02/03/2024 7:34 AMUrgency: electiveAirway not difficult General Information and Staff Patient location during procedure: ORPerformed: resident/DEVIL TENDER Performed by: Aminah Watkins CRNAAuthorized by: Adilene Acharya MD ? Indicationsand Patient ConditionIndications for airway management: anesthesiaSpontaneous Ventilation: absentSedation level: deepPreoxygenated: yesMILS maintained throughoutMask difficulty assessment: 0 - not attempted Final Airway DetailsFinal airway type: supraglottic airway Successful airway: Size 5 Number of attempts at approach: 2 (LMA 4placed-to small.changed to LMA 5)Ventilation between attempts: noneNumber of other approaches attempted: 0 Additional CommentsSmooth, atraumatic, dentition and lips unchanged from pre-op.[facility] Airabvb7555-04-24 12:18:04* Test Item Value Reference Range Interpretation Comme nts EYE CULTURE (test code = 609-8) No aerobic organisms isolated Gram stain (test code = 664-3) No PMNs or Mononuclear cells observed [facility] Axjnlgc4076-07-39 12:18:04* Test Item Value Reference Range Interpretation Comme nts EYE CULTURE (test code = 609-8) No aerobic organisms isolated Gram stain (test code = 664-3) No PMNs or Mononuclear cells observed [facility] GLUCOSE (AUTOMATED)2024-02-03 11:30:51* Test Item Value Reference Range Interpretation Comme nts POCT GLU (test code = 8620786524) 189 mg/dL 70-110 H Lab Interpretation (test cod e = 65943-2) Abnormal [facility] GLUCOSE (AUTOMATED)2024-02-03 11:30:51* Test Item Value Reference Range Interpretation Comme nts POCT GLU (test code = 8651431219) 189 mg/dL 70-110 H Lab Interpretation (test cod e = 09313-5) Abnormal [facility] GLUCOSE (AUTOMATED)2024-02-03 00:53:07* Test Item Value Reference Range Interpretation Comme nts POCT GLU (test code = 6135327274) 278 mg/dL 70-110 H Lab Interpretation (test cod e = 39211-1) Abnormal [facility] GLUCOSE (AUTOMATED)2024-02-03 00:53:07* Test Item Value Reference Range Interpretation Comme nts POCT GLU (test code = 1237914022) 278 mg/dL 70-110 H Lab Interpretation (test cod e = 36957-9) Abnormal [facility] GLUCOSE (AUTOMATED)2024-02-02 22:41:11* Test Item Value Reference Range Interpretation Comme nts POCT GLU (test code = 8748122207) 213 mg/dL 70-110 H Lab Interpretation (test cod e = 24942-2) Abnormal [facility] GLUCOSE (AUTOMATED)2024-02-02 22:41:11* Test Item Value Reference Range Interpretation Comme nts POCT GLU (test code = 5684329843) 213 mg/dL 70-110 H Lab Interpretation (test cod e = 97763-5) Abnormal [facility] GLUCOSE (AUTOMATED)2024-02-02 17:03:46* Test Item Value Reference Range Interpretation Comme nts POCT GLU (test code = 8556331851) 255 mg/dL 70-110 H Lab Interpretation (test cod e = 12404-9) Abnormal [facility] GLUCOSE (AUTOMATED)2024-02-02 17:03:46* Test Item Value Reference Range Interpretation Comme nts POCT GLU (test code = 0402597597) 255 mg/dL 70-110 H Lab Interpretation (test cod e = 59566-5) Abnormal [facility] GLUCOSE (AUTOMATED)2024-02-02 13:42:15* Test Item Value Reference Range Interpretation Comme nts POCT GLU (test code = 8886060251) 202 mg/dL 70-110 H Lab Interpretation (test cod e = 90744-7) Abnormal [facility] GLUCOSE (AUTOMATED)2024-02-02 13:42:15* Test Item Value Reference Range Interpretation Comme nts POCT GLU (test code = 8165342464) 202 mg/dL 70-110 H Lab Interpretation (test cod e = 48942-9) Abnormal [facility]- [id number] Mycobacterium tuberculosis Complex Detection and Rifampin Resistance by RPH2007-75-02 12:54:09 * Test Item Value Reference Range Interpretation Comme nts Miscellaneous Test (test code = 3538276126) See scanned report Performing Lab (test code = 3758192606) [facility]. Sendout- Mycobacterium tuberculosis Complex Detection and Rifampin Resistance by [id number] 12:54:09 * Test Item Value Reference Range Interpretation Comme nts Miscellaneous Test (test code = 3225556477) See scanned report Performing Lab (test code = 8655737684) [facility] GLUCOSE (AUTOMATED)2024-02-02 01:24:08* Test Item Value Reference Range Interpretation Comme nts POCT GLU (test code = 0419554103) 225 mg/dL 70-110 H Lab Interpretation (test cod e = 19238-6) Abnormal [facility] GLUCOSE (AUTOMATED)2024-02-02 01:24:08* Test Item Value Reference Range Interpretation Comme nts POCT GLU (test code = 4561821344) 225 mg/dL 70-110 H Lab Interpretation (test cod e = 51611-7) Abnormal [facility] GLUCOSE (AUTOMATED)2024-02-01 22:05:10* Test Item Value Reference Range Interpretation Comme nts POCT GLU (test code = 9650799678) 204 mg/dL 70-110 H Lab Interpretation (test cod e = 15418-3) Abnormal [facility] GLUCOSE (AUTOMATED)2024-02-01 22:05:10* Test Item Value Reference Range Interpretation Comme nts POCT GLU (test code = 7148869423) 204 mg/dL 70-110 H Lab Interpretation (test cod e = 99168-9) Abnormal [facility] GLUCOSE (AUTOMATED)2024-02-01 17:02:15* Test Item Value Reference Range Interpretation Comme nts POCT GLU (test code = 9600216658) 261 mg/dL 70-110 H Lab Interpretation (test cod e = 09043-1) Abnormal [facility] GLUCOSE (AUTOMATED)2024-02-01 17:02:15* Test Item Value Reference Range Interpretation Comme nts POCT GLU (test code = 9121867305) 261 mg/dL 70-110 H Lab Interpretation (test cod e = 14594-7) Abnormal [facility] [id number] 16:45:32CT ABDOMEN PELVIS W CONTRAST 02/01/2024 10:13 AM HISTORY: 48-year-old male presents for evaluation for lymphadenopathy orpossible biopsy admitted for left eye pain. COMPARISON: None. TECHNIQUE: Axial images of the abdomen and pelvis were acquired afteradministration of intravenous contrast. Coronal and sagittalreconstructions were also created. FINDINGS: LOWER CHEST: Bibasilar lower lung atelectasis. HEPATOBILIARY: The liver is normal in size.No focal hepatic lesion.No biliary ductal dilatation.The gallbladder is normal. SPLEEN: Within normal limits. PANCREAS: The parenchyma is unremarkable.No ductal dilatation. No masses. ADRENAL GLANDS: No adrenal nodules. KIDNEYS: No hydronephrosis or stone. No solid mass. GI TRACT: Small type I hiatal hernia. No dilation or wall thickening. Theappendix is surgically absent. PERITONEUM AND RETROPERITONEUM: No free air or free fluid. LYMPH NODES: Enlarged periaortic lymph node largest of 1 cm size in leftupper abdomen dictation to the lower edge of the adrenal gland just abovethe left renal vein. . PELVIS/BLADDER: Punctate foci of air are seen in the bladder which may bedue to recent instrumentation. No Daley bladder catheter is present. Thereproductive organs are within normal limits. VESSELS: Atherosclerosis of aorta and iliac arteries without an aorticaneurysm. BONES AND SOFT TISSUES: No aggressive osseous lesion or acute osseousabnormality. Mild degenerative changes of the spine. No concerning softtissue abnormality.[facility] W [id number] 16:45:32CT ABDOMEN PELVIS W CONTRAST 02/01/2024 10:13 AM HISTORY: 48-year-old male presents for evaluation for lymphadenopathy orpossible biopsy admitted for left eye pain. COMPARISON: None. TECHNIQUE: Axial images of the abdomen and pelvis were acquired afteradministration of intravenous contrast. Coronal and sagittalreconstructions were also created. FINDINGS: LOWER CHEST: Bibasilar lower lung atelectasis. HEPATOBILIARY: The liver is normal in size.No focal hepatic lesion.No biliary ductal dilatation.The gallbladder is normal. SPLEEN: Within normal limits. PANCREAS: The parenchyma is unremarkable.No ductal dilatation. No masses. ADRENAL GLANDS: No adrenal nodules. KIDNEYS: No hydronephrosis or stone. No solid mass. GI TRACT: Small type I hiatal hernia. No dilation or wall thickening. Theappendix is surgically absent. PERITONEUM AND RETROPERITONEUM: No free air or free fluid. LYMPH NODES: Enlarged periaortic lymph node largest of 1 cm size in leftupper abdomen dictation to the lower edge of the adrenal gland just abovethe left renal vein. . PELVIS/BLADDER: Punctate foci of air are seen in the bladder which may bedue to recent instrumentation. No Daley bladder catheter is present. Thereproductive organs are within normal limits. VESSELS: Atherosclerosis of aorta and iliac arteries without an aorticaneurysm. BONES AND SOFT TISSUES: No aggressive osseous lesion or acute osseousabnormality. Mild degenerative changes of the spine. No concerning softtissue abnormality.[facility]CT THORAX W [id number] 16:36:39PROCEDURE: CT CHEST WITH ?CONTRAST - CHEST PROTOCOL CLINICAL INDICATION: Screen for lymphadenopathyas biopsy site. 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 ? Comparison: ?CT chest dated 02/09/2022. TECHNIQUE: Volumetric images of the chest were acquired (from lung apicesto bases) following administrationof IV contrast. Images werereconstructed at 2.5 mm slice thickness. MIP axial images, coronal andsagittal reformats were also submitted for interpretation. FINDINGS: Devices: None LUNGS AND PLEURA: The lungs are well-expanded and clear. Bilateral lowerlobe atelectatic bands, otherwise no focal opacities are identified. Nosuspicious nodules. Trace right pleural effusion/thickening. LYMPH NODES: Noevidence of intrathoracic lymphadenopathy. MEDIASTINUM AND LOWER NECK: No central airway lesions are detected. Themild mural thickening of the distal esophagus may be related toesophagitis/reflux. Small hiatus hernia. The included thyroid gland appearsnormal. HEART AND GREAT VESSELS: The heart is normal in size. No pericardialabnormalities are identified. The RV to LV is normal. The ascending thoracic aorta measures 4.1 cm. Normal caliber of thedescending thoracic aorta. Aortic arch mild atheros clerotic plaque. The pulmonary trunk is normal in caliber. VISUALIZED UPPER ABDOMEN: The included solid organs and hollow viscusappear within normal limits. OSSEOUS STRUCTURES AND SOFT TISSUES: No focal osseous lesions are detected.The soft tissues appear normal.[facility] THORAX W [id number] 16:36:39PROCEDURE: CT CHEST WITH ?CONTRAST - CHEST PROTOCOL CLINICAL INDICATION: Screen for lymphadenopathyas biopsy site. 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 ? Comparison: ?CT chest dated 02/09/2022. TECHNIQUE: Volumetric images of the chest were acquired (from lung apicesto bases) following administrationof IV contrast. Images werereconstructed at 2.5 mm slice thickness. MIP axial images, coronal andsagittal reformats were also submitted for interpretation. FINDINGS: Devices: None LUNGS AND PLEURA: The lungs are well-expanded and clear. Bilateral lowerlobe atelectatic bands, otherwise no focal opacities are identified. Nosuspicious nodules. Trace right pleural effusion/thickening. LYMPH NODES: Noevidence of intrathoracic lymphadenopathy. MEDIASTINUM AND LOWER NECK: No central airway lesions are detected. Themild mural thickening of the distal esophagus may be related toesophagitis/reflux. Small hiatus hernia. The included thyroid gland appearsnormal. HEART AND GREAT VESSELS: The heart is normal in size. No pericardialabnormalities are identified. The RV to LV is normal. The ascending thoracic aorta measures 4.1 cm. Normal caliber of thedescending thoracic aorta. Aortic arch mild atheros clerotic plaque. The pulmonary trunk is normal in caliber. VISUALIZED UPPER ABDOMEN: The included solid organs and hollow viscusappear within normal limits. OSSEOUS STRUCTURES AND SOFT TISSUES: No focal osseous lesions are detected.The soft tissues appear normal.[facility] GLUCOSE (AUTOMATED)2024-02-01 14:15:44* Test Item Value Reference Range Interpretation Comme nts POCT GLU (test code = 1163458595) 179 mg/dL 70-110 H Lab Interpretation (test cod e = 71621-3) Abnormal [facility] GLUCOSE (AUTOMATED)2024-02-01 14:15:44* Test Item Value Reference Range Interpretation Comme nts POCT GLU (test code = 8776359659) 179 mg/dL 70-110 H Lab Interpretation (test cod e = 11164-9) Abnormal [facility] HospitalCSF Koumbjy4915-75-78 13:39:18* Test Item Value Reference Range Interpretation Comme nts CSF CULTURE (test code = 606-4) No organisms isolated Gram stain (test code = 664-3) Moderate Mononuclear cells [facility] Zsbjhqp1696-52-34 13:39:18* Test Item Value Reference Range Interpretation Comme nts CSF CULTURE (test code = 606-4) No organisms isolated Gram stain (test code = 664-3) Moderate Mononuclear cells [facility] GLUCOSE (AUTOMATED)2024-02-01 02:29:09* Test Item Value Reference Range Interpretation Comme nts POCT GLU (test code = 8530869582) 212 mg/dL 70-110 H Lab Interpretation (test cod e = 53563-6) Abnormal [facility] GLUCOSE (AUTOMATED)2024-02-01 02:29:09* Test Item Value Reference Range Interpretation Comme nts POCT GLU (test code = 3296598318) 212 mg/dL 70-110 H Lab Interpretation (test cod e = 79885-6) Abnormal [facility] GLUCOSE (AUTOMATED)2024-02-01 01:41:38* Test Item Value Reference Range Interpretation Comme nts POCT GLU (test code = 3794669224) 246 mg/dL 70-110 H Lab Interpretation (test cod e = 58804-8) Abnormal [facility] GLUCOSE (AUTOMATED)2024-02-01 01:41:38* Test Item Value Reference Range Interpretation Comme nts POCT GLU (test code = 5975657148) 246 mg/dL 70-110 H Lab Interpretation (test cod e = 45990-0) Abnormal [facility] GLUCOSE (AUTOMATED)2024-01-31 22:12:39* Test Item Value Reference Range Interpretation Comme nts POCT GLU (test code = 6715359576) 183 mg/dL 70-110 H Lab Interpretation (test cod e = 00506-9) Abnormal [facility] GLUCOSE (AUTOMATED)2024-01-31 22:12:39* Test Item Value Reference Range Interpretation Comme nts POCT GLU (test code = 0820881713) 183 mg/dL 70-110 H Lab Interpretation (test cod e = 34327-3) Abnormal [facility] GLUCOSE (AUTOMATED)2024-01-31 17:11:04* Test Item Value Reference Range Interpretation Comme nts POCT GLU (test code = 7568640045) 231 mg/dL 70-110 H Lab Interpretation (test cod e = 80942-1) Abnormal [facility])2024-01-31 17:11:04* Test Item Value Reference Range Interpretation Comme nts POCT GLU (test code = 8617736244) 231 mg/dL 70-110 H Lab Interpretation (test cod e = 86941-6) Abnormal [facility] HospitalQuantiferon-Tb Fwnfr1137-89-81 15:59:03* Test Item Value Reference Range Interpretation Comme nts Nil (test code = 69444-5) 0.046 IU/mL TB1 minus Nil (test code = 01495-5) 0.060 IU/mL TB2 minus Nil (test code = 9044149298) 0.070 IU/mL Mitogen minus Nil (test code = 57135-1) 9.955 IU/mL QFT Gold Plus Result (test code = 68788-6) Negative Negative [place]ORD (test code = STANFORD) The QuantiFERON? TB Gold Plus (in Tube) assay is intended for use as an aid in diagnosis of TB infection. This test uses a peptide cocktail of CD4+ and CD8+ T cell antigens to stimulate cells in whole blood. ?Detection of interferon-gamma is used to identify in vitro responses to these peptide antigens that are associated with Mycobacterium tuberculosis infection. A negative result suggests that M. tuberculosis infection is unlikely. ?However, in patients with high suspicion of exposure, a negative test should be repeated on a new sample. A positive result indicates an interferon-gamma response to M. tuberculosis antigens, suggesting infection with M. tuberculosis. Positive results in patients at low-risk for tuberculosis should be interpreted with caution and repeat testing on a new sample is advised. ?If repeat testing is positive, treatment may be indicated. ?Consult Infectious Disease Services for further recommendations. False positive results may occur in patients with prior infection with M. marinum, M. szulgai, or M. kansasii. For an indeterminate result, the likelihood of determining infection with M. tuberculosis cannot be determined. ?If clinically indicated, repeat testing on a new sample is advised. Diagnosing or excluding tuberculosis disease, and assessing the probability of LTBI, requires a combination of epidemiological, historical, medical, and diagnostic findings that should be considered when interpreting QFT-Plus results. ?See general guidance on the diagnosis and treatment of TB disease and LTBI https://www.cdc.gov/tb/pu blications/guidelines/def alessandra.htm. [facility] HospitalQuantiferon-Tb Zudza9783-85-72 15:59:03* Test Item Value Reference Range Interpretation Comme nts Nil (test code = 38554-4) 0.046 IU/mL TB1 minus Nil (test code = 19195-0) 0.060 IU/mL TB2 minus Nil (test code = 9401181593) 0.070 IU/mL Mitogen minus Nil (test code = 68102-2) 9.955 IU/mL QFT Gold Plus Result (test code = 81614-9) Negative Negative [place]ORD (test code = STANFORD) The QuantiFERON? TB Gold Plus (in Tube) assay is intended for use as an aid in diagnosis of TB infection. This test uses a peptide cocktail of CD4+ and CD8+ T cell antigens to stimulate cells in whole blood. ?Detection of interferon-gamma is used to identify in vitro responses to these peptide antigens that are associated with Mycobacterium tuberculosis infection. A negative result suggests that M. tuberculosis infection is unlikely. ?However, in patients with high suspicion of exposure, a negative test should be repeated on a new sample. A positive result indicates an interferon-gamma response to M. tuberculosis antigens, suggesting infection with M. tuberculosis. Positive results in patients at low-risk for tuberculosis should be interpreted with caution and repeat testing on a new sample is advised. ?If repeat testing is positive, treatment may be indicated. ?Consult Infectious Disease Services for further recommendations. False positive results may occur in patients with prior infection with M. marinum, M. szulgai, or M. kansasii. For an indeterminate result, the likelihood of determining infection with M. tuberculosis cannot be determined. ?If clinically indicated, repeat testing on a new sample is advised. Diagnosing or excluding tuberculosis disease, and assessing the probability of LTBI, requires a combination of epidemiological, historical, medical, and diagnostic findings that should be considered when interpreting QFT-Plus results. ?See general guidance on the diagnosis and treatment of TB disease and LTBI https://www.cdc.gov/tb/pu blications/guidelines/def alessandra.htm. [facility] GLUCOSE (AUTOMATED)2024-01-31 12:50:46* Test Item Value Reference Range Interpretation Comme nts POCT GLU (test code = [id number]) 175 mg/dL 70-110 H Lab Interpretation (test cod e = 48517-5) Abnormal [facility] GLUCOSE (AUTOMATED)2024-01-31 12:50:46* Test Item Value Reference Range Interpretation Comme nts POCT GLU (test code = 3372638946) 175 mg/dL 70-110 H Lab Interpretation (test cod e = 72054-4) Abnormal [facility] GLUCOSE (AUTOMATED)2024-01-31 02:32:28* Test Item Value Reference Range Interpretation Comme nts POCT GLU (test code = 9971641287) 209 mg/dL 70-110 H Lab Interpretation (test cod e = 71133-7) Abnormal [facility] GLUCOSE (AUTOMATED)2024-01-31 02:32:28* Test Item Value Reference Range Interpretation Comme nts POCT GLU (test code = 4125414219) 209 mg/dL 70-110 H Lab Interpretation (test cod e = 88928-8) Abnormal [facility] GLUCOSE (AUTOMATED)2024-01-30 22:41:12* Test Item Value Reference Range Interpretation Comme nts POCT GLU (test code = [id number]) 244 mg/dL 70-110 H Lab Interpretation (test cod e = 74781-0) Abnormal [facility] GLUCOSE (AUTOMATED)2024-01-30 22:41:12* Test Item Value Reference Range Interpretation Comme nts POCT GLU (test code = 9652297244) 244 mg/dL 70-110 H Lab Interpretation (test cod e = 52807-8) [id number] 21:01:55* Test Item Value Reference Range Interpretation Comme nts Case Report (test code = [id number]) Non-Gynecologic Cytology ?Case: [id number] ?Authorizing Provider: ?Rocío Renteria MD ? ? ?Collected: ? 01/29/2024 1542 ?Ordering Location: ? ? Neurology/Neurologica l ? ? Received: ?01/29/2024 1557 ? Surgery ([facility] 11B) ?Specimen: ? ?CEREBRAL SPINAL FLUID ? Final Diagnosis (test code = [id number]) s9aqyXWwDHOje0ztYBElz GFuZzEwMzNcZnRuYmpcdW MxIHtccnRmMVxlcGljMTA 3WLEeUS6bcBzunXx8bKqd RLZqzpW1lNIqXKcev5aqG YI4c5zycipfAIAbBJgoEa 9udHRibHtcZjAgQXJpYWw 1rQ11AGZuzY7iuRZvLCas tqFvFPqrabCjkhYtFtr4T ZG1oWnuJXChydoxEmN6FE qdEVGkaimwJGx8VJdgKIW dgGL0GGHgmSEaX5VjIZPt BQ3rqvy9AQZ8UAimCLDzR hC4YKEiiFNyRPSpkCesYF pii693KJD6DyZrLGIqrvF gqEddqD4zDmkvkgTyPGTu VqGrH4GPLBWWS4VFYY0RP CBGTFVJRDpccGFyXGIwIC 3pVNZoT3IdQL2NEO8PASq HTkFOVCBDRUxMUyBJREVO VElGSUVELiBcYjAgKFNFR RXFC54TFX9NFBwfCDOaV0 HlRXXufh98GDI1WmHqw8K 5AASgTnEnREOdWT6maZma MGOiTQ5lLWVhF3qzhH6xp bd8JyDoZXRhMcP8BBEfdk P1Tmw3ZLAlAQydj7oqz3B bE7MqiUJwbCb0f6ykSDNm ZuW1tFSqHZygK1rbdbDpz WWuHWYgJJi6iTxwUjHyUF Dhn8jxvnIxDoNkRUStATO rZOIzyQtaemi8pN30NJGa nG6ksNUjCLmeejWoEnT2G YwmYKWcYqM2QXStpEBwRJ EyG0nuJVZuRVxbQUSlIUg ohUPyBFT9zPzsb5I5gMCj aGVldHtcZjBcZnMyOCBOb 2DzXTo5pSquG7TdWEKuPc K3kDNeJTLvDIboRQQmESL uqdE1sW19SNdretQ2lNQi b2Sbx01td749oW3acENyG CC6GPFnXZSktTDeFNHkET G0JBAnwNLmB3yzQLOrKM1 hcmdyMTgwMFxtYXJndDE0 ZQRlpBDoR8MjCAVqEIbcX CDclka1ZkIsKn6wgYPjkU djXDrhk3ekw4uweXDdSzg 6QBBqLpXoMuucUCwnn4Fb l4ecYDQntt0oOUX8uDBcn Xkxf0T6zTIxWBFcbKOfsb WvMZDiWaK9IBfxKE9sca2 3KIZiLTZ1hz9wiIZrhVrb fePrhXTlQOyyC6QiHLDrk 168KBHzB3YeCOBiv8W3es JnXtErTYWghEE2jaD6UPE aNOb0zKXqsqG8rcWyjOBx M8svvH3zOBMxKE7eziinn 0ffOPavBCyzGUWicMD9bv A7DFWfpALhN2JpqK4dZQV vUGkwTHMoeft2IeFnQz9s dGVyeTcyMFxzYmtwYWdlX HBnbmNvbnRccGduZGVjXH BsYWluXHBsYWluXGYwXGZ eRqYumExzlHqxwK8lDeZx XsKcDBfhUE7vXRQzL3ubx CWeGLDlNYJgC9lbTnFxvN 9jaFxmMVxjZjJcZnMyMFx wYXIgSSBoYXZlIHBlcnNv qfPctRbjboB9hRF4TNUiI UmgGXDkTDEgkGWksw0tiB xuUZSxCP6oPRTlyxJkYXf gfAwtNVjaDBN0GBItvGDg dHMgbWFkZSBieSByZXNpZ SPxiAHfPBEnaDhgv1Mgg2 YghYQ4lL4ci5din4QvUQM ohQN8AR80dcF0iG2hOGRt HL3uOUQcYB6ufZWnmGFxB SKed01ccVtjnrRoZQGjoq QuXHBsYWluXGYyXGZzMjh cbGFuZzEwMzNcaGljaFxm PblrSkMmEWYwQSqnZ7vbH oEjRiViETleSHN6kX== Final Diagnosis Comment (test code = [id number]) d9qwqZVpLQMsbJWeVTQtD 9dgcoAtEAUxoXJeG7Alws hpPRhlRO9bGY0cjCusjPV dsEHyXZKjQvHkn1och638 yLFur9ezDVJHpnzdwJu1c VypO46ut5R5UkvwL0kiWI QwXGdyZWVuMFxibHVlMDt 9XHBhcGVydzEyMjQwXHBh yUCvdTR8FBWbYB3dfqveX SwtPBsgCVHlmiQ3BYBlqQ InO6DzOGEpYQ7bszslUDJ 4TXyjQSAqUYS7FzJaISDf k4Rikho2XmNidHLlBPkyz GFpblxmczIwIFNtZWFycy XzpI77IYYxOXlnOZj6mWF ye8M7nENnEOGkDMPrEBFd RI4pvt7bqXYfcr3kIGWzK FRNzhXmPSunW65gwkDxB9 VsbHMgaWRlbnRpZmllZC5 ccGFyXGNmMFxwYXJ9 Clinical Information (test code = [id number]) eye infection Gross Description (test code = 2195985185) d0taqZLfEDEsgHQpRRSwR 4cayeApAKOfzPKyA1Gumq htDZnwHC4hDQ7lkUijxGG dsZReGGBiDaIpe2bco765 bPHhk7ocTJDAjcosiNl2p TxbD89ht9E9VkabY79wzF UgEDD5MRKmOZGqdQKnERR sXAX1ZHHoxKJdI9woIHSc CZ3swlknLVjyUXkpBDAhb LK6IPYwrTNqS9YjNMRfXP zfWSMtupn7MlHwUh4poFY akEacECisAsktsSovi9Rz dCBcXGlkIDUxMDAwIFxcb rpdNIz6YJPeGYogzOOcMH 2gsDgmJdudoIiiz1QeoHJ cXGlkIDUxMDAyIFxcZGIg J2FVWMEhCGL8RuttJzmlC Wk6KQn6BQ7PTpCrHQEqEb P4CLNgFiEnVUg0KQyaGQ1 PIDIxNDAzMjIzNDAgNTQ1 DZLxBDu9DMUkVLudiiNbW BglAaqjAPoaY99zvXVnVL xwbGFpblxmczIyXHBhclx vZWDgYZGfBcQnXUDnM8mz YjMwXHBsYWluXGZzMjJcc GFyXHBhcmQgQTEuICBDRV TJHsWYT0YFGyPPQCUJACg EXHBhciBSZWNlaXZlZCBm plTgyLCixsFpEWTtI9Pih 4XzH9deXSSoTar2uIBjUH BhciBQcmVwYXJlZCAyIHN epMNywwQpD7g4x1AzlI8s mHAnaZReSYBso33aOpGrP XIjoNYiv8fbp2diVB1tGZ JsQKYfAW0bU60rEK03SDE 0YWluZWQpXHBhclxzYTMw WVDxzNZNo2FoOVnsQIJlD 4GfA1JdbuS2a1qerGcwn4 SncNVoLJ3xsNKuwA== Disclaimer (test code = [id number]) y2jzhWArQYYjr3peIXGoo GFuZzEwMzNcZnRuYmpcdW LdHSuhwxEjLRtvo4JnN2A yMjAwMFxhbnNpXGRlZmxh doebJJSvYKP6jlMqWAYuN FcdTBCqYPinHx5dtMAefR qpJsTnWPDbt9coatGDHSf rIvYdU185HEAmRQhkd6kj v9GpJHPpvKUis9B3EZNXf owuwSs5n0jkBeSrEaM5hN RoTHmyE9widyNpeLEkP5R kyJUdzUt8jDbeY38md6R6 StifL4trTQAdDLZpX0VhJ B4kRRWhOes4FNO5AJR5NS IeUYByO5JvRT9gSQIqeWP pJXa1s0rdnLtaSMVxRCA4 g7taEAokosIfEO3opq5go Nw7e7mttjLnQTSmPVGuaB WZXXWnW0TnaDasVf3qiFz 1jOgeOgyiAKE2Doq1SD5x oq20wha3nRbrAIEwjjymI vK1VYvzZOPrzyokGHk5UY czHXErcZE2JXEyiHHoY5Y pZKYnXV6gusm6KNX5FRnx AYFmCkA7LLBabDMqRJCbi DcsMNofe971DXH9QzEfFA 4yL2Cgx5O4dI7mkZAjTNF asEIwJeIxAYNdwe2joAQx TIcol6EyCGZ1gmN9nYTkv SEvHSXoVH96Xkqkv2RuTe jhEXY8YHVmkvPlu9Owc6b cGkIzuzWxI8kbA2KaJEJm VPRaVMDdUeDdgwZyz0Tbj 7ZunPEijGp9s6twWUFuBA ZuwOoav4duFFN0ZPPgL5E 2kQIkw4bhUNcwJMZoiFI5 keR0AWLbpGFxE2ConG6eA KFhZW1dsdi5t2yhVDN8FS idNETzOuY3dfV7ITNnaZJ bNXWbqTkzAQqsm115YVU3 PmFlJLZbb3IbX5MneGjgD 91yrHliZ22iFKPvvDwoaN 4pjSzkjC8aIzPcKiPwEYb xbFxwbGFpblxmMVxmczIw OIqzlsbqTGKhDHvaD7baA rNkLKBxrFdnGCeqg5WsIR YxXGNmMlxmczIwIFRoaXM tvmGiv3S4AK6edDIyauLz kASfWAVqn7HneQAoh2Wbm YKfJUPpcvGqu5VwZTT2QL Q1oP7vEMLqjpYwgp1tQSK 2s6tpCaAUsVLmgtYKHVDp LBo7gEUdD8MnB9wewSXnL uWwZ6EhiIEgNQTSYzOlMI 3ljKAenoBdDN9nMUN8axI wPVTaPKGzux8qFVLxUE31 bBViCFSymvZzID2lFtNAj Oadh8JqvZL9JQM6nE7iRR jyxkDsSVCmeA9hHDRbFT5 eEJk6peYmBOXzp5GwWU8l JZGyeTHmQAP9UQOah9GdR 2GyNSY8VCHsaQ8sFWLhmS PFHS3VMUldKv7yELUapij zG0HtfjhoZXBjZJIUbQIj XRCvux66LZUlAX5zL4omO AKuBFLclqCruFYsm7VuYP GjbZP4jVMwZR1OYmBNs26 kIGFuZCBEcnVnIEFkbWlu dQU4liV2pA0lMClCTUZtF zJbJNsxECJRBEUbn1SzZO 4ikOEmUNR7aECjSZWiiIV ktyQlDENinkZ2nOPnSWU7 ONJ9gf1mOUxfNMEwxZHbI YTTUPZoXRMmq2PonV6xbQ SzUKIoXLGymNGdc1JumnY eQIQoJESoAITddA7lB3Zj EGtyIi3pUVJswdqvCA5vi y47ZL1dobDmLQ9uknKoZP 55deQjS2rLUVnutZ3yzFG zBe7nuFYnsEawFIMwtPAr OHlolLcswPEvkZzcXx0nJ FxwYXJccGFyIEFwcHJvcH ZkCUSogIpvefHoN1IgdeK edJ5jxXVnewXtYR1zDR4t D1L6oBVnVKYpqkPtu4dhA GhhdmUgYmVlbiByZXZpZX pqUGXhr6ZtFHntZFG2FVs ucyBpbmNsdWRpbmcgSCZF VGYIzFTlbPRdPRF8FSoru oPyhjGfQY4qrN8aaFlaqH 7jhAUbbKV6esjaVKIuCRZ mpVpiRVTuHQ4gxBCuAPQz ogNUhFnpdFIdyQ8gP1LpT IVqHKElmj9kOKFmwR3gLO bld4QrhdhfOAPpXWQePWV glyPuwy3yEQZgnGUVFD6C QTgsbXJml6AwpdEwT4sIU FN2PXQzHmJuZvdnEHVumC VfsGWzLQTlvi29CMVplA4 xfYxmTTWdtA3mfD8ntZgn xM9yGbIcLiUdLjcqLN0jZ HZkN0vtiZMxZANuGDXnO2 svQiEehD3kcWyvHwclawK sYQLluo17 Embedded Images (test code = [id number]) [facility] [id number] 21:01:55* Test Item Value Reference Range Interpretation Comme nts Case Report (test code = [id number]) Non-Gynecologic Cytology ?Case: [id number] ?Authorizing Provider: ?Rocío Renteria MD ? ? ?Collected: ? 01/29/2024 1542 ?Ordering Location: ? ? Neurology/Neurologica l ? ? Received: ?01/29/2024 1557 ? Surgery ([facility] 11B) ?Specimen: ? ?CEREBRAL SPINAL FLUID ? Final Diagnosis (test code = [id number]) o6zseEHeWCPdl3nqLPLpo GFuZzEwMzNcZnRuYmpcdW MxIHtccnRmMVxlcGljMTA 0SBSvRW6iaIihbNu0xXcn FOAxpwC6xICqFUrvv8plT IW2z5udhzuwVCIcRVrfPf 9udHRibHtcZjAgQXJpYWw 9sY86YAQeuG9liEFfQAuc kiUzRQawrsXdvmLyKiz9R YY0tQiuXGIyexxpYnW0PP lpBSGqbvwdQWl2NAdePAP maVW4FRZgfLTaW4HrINMu JY4cvmd2RWM3JDzbRUHfB fM6FUVgcBScBQMekNbmCF zfa687HWB2PhYoAIDxnwH ozCtprQ2kKmaiobNgWIXy MdRfN4VGAUEXQ4BAKB7UH CBGTFVJRDpccGFyXGIwIC 5cFHFmS6CjRZ6AXN1GGSn HTkFOVCBDRUxMUyBJREVO VElGSUVELiBcYjAgKFNFR FMYW45POZ8QXEfbMTWxS6 YnNGXtby55CVG8AnBak0A 0XCHtByPhPUFtBN9idDph IKSwPV0gCXOjW7ppbW9ir ok5JlIhBMKxVeV8TFTxkj X5Tww2RFGfIBxlt2wzz3C zP5FjjGWikNx5q4wlHBUz FjD0yKJoOXhoY8kvgzFrd MQhAAEsRId8jQqhQnNcGR Vuq9otsyGfIrByPKFcYWW uFVKdcNnucww4aF29GBCe zY6pqGOeWDbpuhQvNjU8E WthOOGiCcE8OMDjsNLmYC JrW1zjSPEaJTgiISHhHLa cnYXdPRB1fBpzo9B0bTLx aGVldHtcZjBcZnMyOCBOb 1CyVQf7uSptB1OkUGDaJn I5gZLiGWPgYNyaMRAcASS zfdB7lV72OZtaloL9nCKk p1Swx42he850rL2gsDCiL EE3HVIcYIDydQDxCSBnVK T7UARyxRVtX3ptKQXnDH1 hcmdyMTgwMFxtYXJndDE0 DOFdbHKpI1MdMYJyQRxtH JOkjbx6WyUiJr1wiDAplN vdAPtcl8dno2ioxVHkYsv 9WHVuAyXhWkelKQobc9Id d2bvDCYjcp0hRIU2cZFnk Bprr5P5lJSmWEAinJTfuq XhMOJqNdD4CEbbOY2fne7 9LEFjPSS6zn6ctPYsbJgz frNxoWMqHTawW0QgEAFpt 768JHHbB9CgDRUmr7O9aw RiLuPjZVZnxJL2uuL1XYF mGIp6fCObxbP8eoQnwNJi D4bigB0aEUCrTU6kxagth 5tiCIxyEPztZZKucSV2gz W2LYGgbETmV1GweK4gRBL dYAtiRWOkbek0UwFzBx4n dGVyeTcyMFxzYmtwYWdlX HBnbmNvbnRccGduZGVjXH BsYWluXHBsYWluXGYwXGZ dVoLgkPibyIgusO1qCuZq GbIvFUvmPI6dCUGdD9cju IIcAGLtYMLaE8caTiEluZ 9jaFxmMVxjZjJcZnMyMFx wYXIgSSBoYXZlIHBlcnNv grYyvIbcxbU9bBX9DMZfG YfoQQMfMUUdlJJxud0rkJ raBBImGZ9eBENtfrYwLFz zvDhuQEgkVWL1ECUmlVUv dHMgbWFkZSBieSByZXNpZ JTxeWRsBBVheWfqm3Xbm3 IxqAQ6bX7lp3nbq6HzDHH csTZ7UA93gwZ9nT8zVGXk OG0tZQPkTW2tmJVdvUReL KKiy18buNmvgpYvMICrzr QuXHBsYWluXGYyXGZzMjh cbGFuZzEwMzNcaGljaFxm EuhyYnPyINXvOThdL2seI aNsOlOgXMerDVL1cM== Final Diagnosis Comment (test code = [id number]) m3uoeFMfGZPugQYxJLCcG 9sgwcNjSXKwwXTxR6Ltot cuINiwRS5lVQ7fwEgxqHU qsRUjBBSwYjMnx3sjo783 sYUsl7uvHRIUvwstvPy0n UfqM72nq6Q3OdrvN2ewJZ QwXGdyZWVuMFxibHVlMDt 9XHBhcGVydzEyMjQwXHBh lGQcePQ0IHSlGY8rmfbsS QfoELidETAqghK2GEEizU VkR7FdVJFwCZ3dvwloARQ 4LPahWKXoHBT7XkRnBOFb c8Jompm3MrFigCZyCRlbq GFpblxmczIwIFNtZWFycy JliE87JUGoXByiRVe2wTB ye5M4oWTuVPYsVQKvKSRd QK2qha0cgPAjqy0yTBRlK YQLfjVzXEuhG53ltfPtC5 VsbHMgaWRlbnRpZmllZC5 ccGFyXGNmMFxwYXJ9 Clinical Information (test code = [id number]) eye infection Gross Description (test code = [id number]) m3qflCEhSBWooSYzROCpG 3airjDiRNPcyPTzN2Bsnw ngHQqvIB8mUJ9foLxisPC hfIDjEDSjHwMtc8fka494 aNOhc9cuPUJZxtzhxGd9p BqgH98ud8D0BotlG58ogR CqTJX4KHZmANBrjUIeERI dARL3VEPkaFQxV9goKZQm TX8qecqrVXqaQKjzYJGsw EZ8DZLbsYUfN1XgPPAdIG thLVBpzpx4PuXpQz3jcLY bhMgeGYykAbnswVugd3Zz dCBcXGlkIDUxMDAwIFxcb owaZIk4TMOpXGdihMHlBG 2mdBoyExzdzNyde0EdmGM cXGlkIDUxMDAyIFxcZGIg Y0FTCTGeLQD7MbxlLageO Nq8AGe6CZ1NJaCzQJXwEz F0XAMvHsRcXHp9XDbyFC3 PIDIxNDAzMjIzNDAgNTQ1 HRHkUVc9SDLrXYnrlpMoA HfvUsxwMWfzC59pkHZpYP xwbGFpblxmczIyXHBhclx zWWKuYGRlZbFlXXEaO4or YjMwXHBsYWluXGZzMjJcc GFyXHBhcmQgQTEuICBDRV IAGnASA4SYSiQTMXQDBFk EXHBhciBSZWNlaXZlZCBm jqYpdYGkiyBvZLZbR9Ejl 9LeF9wtGTLyToc9eZInTT BhciBQcmVwYXJlZCAyIHN ohDVhulTpP2x1l7JpcD5i pAMyzLMyTZDxf95hTnWxN LIodBZyj5wgj7zdWZ4oIK MpHBMaZS4tN06oNG62CGD 0YWluZWQpXHBhclxzYTMw RWNdqFJSk4MiHSlaJZAdW 8ZvT1IspyD2e0mynSbca4 TvvTFlVZ1ebUQrpY== Disclaimer (test code = [id number]) m3ijqJUyPBQvf1bvWTVam GFuZzEwMzNcZnRuYmpcdW AiUHgnacNzLSjhd9CfB0L yMjAwMFxhbnNpXGRlZmxh qzayJMVaPAK0nmFfVJMaX LtaAKXnNOycOo5gnOYhgC slAcXrFUGpk6bmrfNGFEh kFdClB902EARxSZffd2mo p4YwTTOnoDPih2X2BAZVn uthwLs1s3ohTyEqHuJ1kD NqMDzlN5tworImvSSiQ8K irEMtoXn0hTlaO29yd8I4 DcztE0plLSMxMWBpM7RiA L1nCCMqKsv5JFX4MEA1RX UtYYYeJ9ZbYP1aWWYvmGN sHMv8z8eyyJktIQZjEHX5 u5miMLrstnIsOV3fvh7fd Lw6q2sfpfIuLDQqVRYjcY KMNHQgX9VutUyoDx4okTn 5sGpuSoafCPR8Dqa2SG8z uh72pgh9wDjrREFdwemiV qY8QJmqIYKzqvujWJj5DL kzCLEvzXN8CSNfuQLtW6H pEMOfAU6xkol5JDV2NHjy JBMtToW1QTFfzLTyPNZmf EroMCysg580SOI2XdAzPK 9eU8Kze1L0tB5coSEaYLH gpWPyFfGcIDRunp2faURx RXfin3UvLKJ3yaX2wSPgz WWmLOTuYQ07Tuaih8BnUu iyBTD0JWFebmVnh6Jgl3d bPeVtyuZfE2hsF4WePSQu YNXlDWLvSbAkwvOxh2Hur 0RjfWVqmTk9r5yhZOAkRT LsjZhhw0sdHQN8HQNuG7L 3qELja5joFZqrEAApzHU6 moP1IZWbiTQuN8ZjuM2fM QYfLY2sbnk0j9ndERA2UN vxTXSlWiQ6jmG3BUQjxPS vNOWdyRocZTpvf883BTT6 TjWrRHPrx5QtV0CspFqdN 33auUohO01gJNFfiMutiP 9fmXyemC9iRwAoFtHwLYe xbFxwbGFpblxmMVxmczIw ZGkdehmyBDXrFEpaZ8rkL cSzHRYaqUkkOMktr2ScUG YxXGNmMlxmczIwIFRoaXM mbsAsk3C1KM4rqCDrhdNn qKBqKBNeu7SttNLxz2Bgq AWcIJXpdyAkp8EbSKG3LP I1mP4eDXJagkJdzi3tBZV 2k8lnHpKFdQUbeyFMXTCv ZAd3fAUaE3RyV5iceESbB jOcY7KqrRIaVKOPEpMeSE 6euLUntiOoHA2xOFM4liS nRQSgQCBejr3lCFLuNP03 yCSsIRVtxgFhSR9yOkLYb Okra4NitDS4XKN2wZ1gGL gsrvHyWPBpsL0gPOLhXP1 fHLr7vvRgSRRmj2QtAV4o KRPykFLdEUQ1UEAxe4SbP 0XdHDO6CHRguH9iPVBeuG IJOJ1KJPrbRo8aNRGgalv cN5GygggaPPZdTHQVuWHd VVPfso64SUZcBD7eA8vvY UEqADNhdwWchZOqz8ZgVY OasMG1sZSkHU8EFyAVa45 kIGFuZCBEcnVnIEFkbWlu pKV9qtD6oQ8wXQjUAXPyW kChEIqcENDRPKAlg8PnUZ 3hcCQmWAQ8kXRkTHKfnKA loiTzDLOypqR7dBDkZZO0 FOV5mm2qRVzqVTYncFErD TVWAJNlAUXpi7VieZ5urR SmXZYbYOMgkKQif9XxswO rAHDgVRWsLGKriF4nP9Lh QVnlCj1hPNSdvrhjXT9se b39MY1eggGoFG7lcwNyUY 58omVgZ4aOYGohiJ9nfIY pNn4snUDjlIktQHJrcVIb FXphfYkdjHGsmLdtJg5zG FxwYXJccGFyIEFwcHJvcH TkGBUxjOlskeLvN3GjscW ypU9zmJMzizFfVS3wZB9d M3E7iKVlXBOrxjXfb0mcX GhhdmUgYmVlbiByZXZpZX scSWWdk6ZiHPngBFI8FMv ucyBpbmNsdWRpbmcgSCZF ZUCRyRYqpAGiGIZ2SDvtc lBxfkOcER8hpL0tfDbhdB 5rhBRasZO8uglqKYSzEJM heOyrOKMsMZ6sdJNtKZJh utTTyFqipJCibF7nJ0NvR BDvYOWwdv7xWPAfzP7fUP cpt4WvhebnUBKuZQYtTWM bxcDihl5pJHAltMMLBX1J NQpvlDWqk6IkpxZgE4kVZ ES3EMNhEiFaIgioKJTkgH DdwWPsNBZrxh74EZQcbD7 wfBmbTNWpiB2ewP8ihTbe tF4aTrOxZiMnVjzrES5xE FUyX2cewVTzSFXaBEKmM8 pmRmUdeR4xvLylMmdrkmB eFRBimc89 Embedded Images (test code = [id number]) [facility] BRAIN W WO [id number] 20:22:56FULL RESULT: Examination: MR BRAIN W WO CONTRAST, MR ORBIT W WO CONTRAST on 46:46 PM Clinical History: Right eye infection and vision loss Comparison: Head CT 01/23/2024 Technique: Multiplanar T1, T2 and post contrast images were obtainedthrough the brain and orbits. 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 There is noabnormal enhancement. There is some hemosiderin staining in the rightfrontal region either side of prior surgery. With respect the orbits, potentially in part due to the length of acombined brain and orbit study, there is motion artifact degrading thecoronal series. Nevertheless, in the left globe there is extensive abnormalenhancement of the sclera as well as the retrobulbar fat and along thecourse of the opticnerve/sheath. I've made numerous annotations on [id number] the fat is clearly infiltrated on the axial T1 image 10 series 10. With respect to the right eye, there is also abnormal scleral enhancementbut not as striking (image 11 series 15, as well as abnormal periopticenhancement. Bilaterally appearsthat the enhancement extends through at least the opticcanal but also potentially the superior orbital fissure into the clinoidregion where there is abnormal enhancement bilaterally (image 21 series 1 4,image 10 series 15). These findings are presumed to represent infection. [facility] ORBIT W WO [id number] 20:22:56FULL RESULT: Examination: MR BRAIN W WO CONTRAST, MR ORBIT W WO CONTRAST on :46 PM Clinical History: Right eye infection and vision loss Comparison: Head CT 01/23/2024 Technique: Multiplanar T1, T2 and post contrast images were obtainedthrough the brain and orbits. 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 There is noabnormal enhancement. There is some hemosiderin staining in the rightfrontal region either side of prior surgery. With respect the orbits, potentially in part due to the length of acombined brain and orbit study, there is motion artifact degrading thecoronal series. Nevertheless, in the left globe there is extensive abnormalenhancement of the sclera as well as the retrobulbar fat and along thecourse of the opticnerve/sheath. I've made numerous annotations on [id number] the fat is clearly infiltrated on the axial T1 image 10 series 10. With respect to the right eye, there is also abnormal scleral enhancementbut not as striking (image 11 series 15, as well as abnormal periopticenhancement. Bilaterally appearsthat the enhancement extends through at least the opticcanal but also potentially the superior orbital fissure into the clinoidregion where there is abnormal enhancement bilaterally (image 21 series 1 4,image 10 series 15). These findings are presumed to represent infection. [facility] BRAIN W WO [id number] 20:22:56FULL RESULT: Examination: MR BRAIN W WO CONTRAST, MR ORBIT W WO CONTRAST on :46 PM Clinical History: Right eye infection and vision loss Comparison: Head CT 01/23/2024 Technique: Multiplanar T1, T2 and post contrast images were obtainedthrough the brain and orbits. 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 There is noabnormal enhancement. There is some hemosiderin staining in the rightfrontal region either side of prior surgery. With respect the orbits, potentially in part due to the length of acombined brain and orbit study, there is motion artifact degrading thecoronal series. Nevertheless, in the left globe there is extensive abnormalenhancement of the sclera as well as the retrobulbar fat and along thecourse of the opticnerve/sheath. I've made numerous annotations on [email or web address] the fat is clearly infiltrated on the axial T1 image 10 series 10. With respect to the right eye, there is also abnormal scleral enhancementbut not as striking (image 11 series 15, as well as abnormal periopticenhancement. Bilaterally appearsthat the enhancement extends through at least the opticcanal but also potentially the superior orbital fissure into the clinoidregion where there is abnormal enhancement bilaterally (image 21 series 1 4,image 10 series 15). These findings are presumed to represent infection[facility] [id number] 20:22:56FULL RESULT: Examination: MR BRAIN W WO CONTRAST, MR ORBIT W WO CONTRAST on 46:46 PM Clinical History: Right eye infection and vision loss Comparison: Head CT 01/23/2024 Technique: Multiplanar T1, T2 and post contrast images were obtainedthrough the brain and orbits. 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 There is noabnormal enhancement. There is some hemosiderin staining in the rightfrontal region either side of prior surgery. With respect the orbits, potentially in part due to the length of acombined brain and orbit study, there is motion artifact degrading thecoronal series. Nevertheless, in the left globe there is extensive abnormalenhancement of the sclera as well as the retrobulbar fat and along thecourse of the opticnerve/sheath. I've made numerous annotations on [id number] the fat is clearly infiltrated on the axial T1 image 10 series 10. With respect to the right eye, there is also abnormal scleral enhancementbut not as striking (image 11 series 15, as well as abnormal periopticenhancement. Bilaterally appearsthat the enhancement extends through at least the opticcanal but also potentially the superior orbital fissure into the clinoidregion where there is abnormal enhancement bilaterally (image 21 series 1 4,image 10 series 15). These findings are presumed to represent infection. [facility] GLUCOSE (AUTOMATED)2024-01-30 17:38:11* Test Item Value Reference Range Interpretation Comme nts POCT GLU (test code = 5324444572) 228 mg/dL 70-110 H Lab Interpretation (test cod e = 79519-6) Abnormal [facility] GLUCOSE (AUTOMATED)2024-01-30 17:38:11* Test Item Value Reference Range Interpretation Comme nts POCT GLU (test code = 7450707540) 228 mg/dL 70-110 H Lab Interpretation (test cod e = 80371-8) [facility] CSF/[id number] 14:46:25* Test Item Value Reference Range Interpretation Comme nts Specimen Tested (test code = 8669677684) CSF Cryptococcal Antigen (test c ode = 69789-6) Negative Negative [facility] CSF/[id number] 14:46:25* Test Item Value Reference Range Interpretation Comme nts Specimen Tested (test code = 4915293335) CSF Cryptococcal Antigen (test c ode = 34567-8) Negative Negative [facility] GLUCOSE (AUTOMATED)2024-01-30 14:37:37* Test Item Value Reference Range Interpretation Comme nts POCT GLU (test code = 1988176039) 210 mg/dL 70-110 H Lab Interpretation (test cod e = 71662-9) Abnormal [facility] GLUCOSE (AUTOMATED)2024-01-30 14:37:37* Test Item Value Reference Range Interpretation Comme nts POCT GLU (test code = 2941768552) 210 mg/dL 70-110 H Lab Interpretation (test cod e = 00382-4) Abnormal [facility] GLUCOSE (AUTOMATED)2024-01-30 04:28:13* Test Item Value Reference Range Interpretation Comme nts POCT GLU (test code = 3512145121) 294 mg/dL 70-110 H Notified Provide r Lab Interpretation (test code = 63926-4) Abnormal [facility] GLUCOSE (AUTOMATED)2024-01-30 04:28:13* Test Item Value Reference Range Interpretation Comme nts POCT GLU (test code = 5131390092) 294 mg/dL 70-110 H Notified Provide r Lab Interpretation (test code = 87464-3) Abnormal [facility] GLUCOSE (AUTOMATED)2024-01-30 01:09:33* Test Item Value Reference Range Interpretation Comme nts POCT GLU (test code = 7339583651) 301 mg/dL 70-110 H Notified Provide r Lab Interpretation (test code = 63622-6) Abnormal [facility] GLUCOSE (AUTOMATED)2024-01-30 01:09:33* Test Item Value Reference Range Interpretation Comme nts POCT GLU (test code = 4250268197) 301 mg/dL 70-110 H Notified Provide r Lab Interpretation (test code = 96622-3) [facility]normal [facility] BY [id number] 23:07:12* Test Item Value Reference Range Interpretation Comme nts Escherichia coli K1 (test code = 19430-3) Negative Negative, Indeterminate, See Comment Haemophilus influenzae (test code = 55155-5) Negative Negative, Indeterminate, See Comment Listeria monocytogenes (test code = 06675-9) Negative Negative, Indeterminate, See Comment Neisseria meningitidis (encapsulated) (test code = 37797-7) Negative Negative, Indeterminate, See Comment Streptococcus agalactiae (test code = 16840-7) Negative Negative, Indeterminate, See Comment Streptococcus pneumoniae (test code = 17732-4) Negative Negative, Indeterminate, See Comment Cytomegalovirus (test code = 19470-0) Negative Negative, Indeterminate, See Comment Enterovirus (test code = 07838-0) Negative Negative, Indeterminate, See Comment Herpes simplex virus 1 (test code = 35943-7) Negative Negative, Indeterminate, See Comment Herpes simplex virus 2 (test code = 66378-0) Negative Negative, Indeterminate, See Comment Human herpesvirus 6 (test code = 84756-4) Negative Negative, Indeterminate, See Comment Human parechovirus (test code = 93520-1) Negative Negative, Indeterminate, See Comment Varicella zoster virus (test code = 90578-2) Negative Negative, Indeterminate, See Comment Cryptococcus neoformans/gattii (test code = 72001-1) Negative Negative, Indeterminate, See Comment STANFORD (test code = STANFORD) Negative:A negativ e result does not rule-out infection. ?This assay does not test for all potential infectious agents. Positive:A positive test result does not necessarily indicate the presence of viable organism. ? Lab Interpretation (test code = 08519-8) [facility] BY [id number] 23:07:12* Test Item Value Reference Range Interpretation Comme nts Escherichia coli K1 (test code = 69849-4) Negative Negative, Indeterminate, See Comment Haemophilus influenzae (test code = 63703-5) Negative Negative, Indeterminate, See Comment Listeria monocytogenes (test code = 45955-7) Negative Negative, Indeterminate, See Comment Neisseria meningitidis (encapsulated) (test code = 67587-8) Negative Negative, Indeterminate, See Comment Streptococcus agalactiae (test code = 30086-8) Negative Negative, Indeterminate, See Comment Streptococcus pneumoniae (test code = 73207-8) Negative Negative, Indeterminate, See Comment Cytomegalovirus (test code = 21821-6) Negative Negative, Indeterminate, See Comment Enterovirus (test code = 42595-1) Negative Negative, Indeterminate, See Comment Herpes simplex virus 1 (test code = 90704-0) Negative Negative, Indeterminate, See Comment Herpes simplex virus 2 (test code = 13310-2) Negative Negative, Indeterminate, See Comment Human herpesvirus 6 (test code = 07937-2) Negative Negative, Indeterminate, See Comment Human parechovirus (test code = 45628-1) Negative Negative, Indeterminate, See Comment Varicella zoster virus (test code = 55086-4) Negative Negative, Indeterminate, See Comment Cryptococcus neoformans/gattii (test code = 12799-6) Negative Negative, Indeterminate, See Comment STANFORD (test code = STANFORD) Negative:A negativ e result does not rule-out infection. ?This assay does not test for all potential infectious agents. Positive:A positive test result does not necessarily indicate the presence of viable organism. ? Lab Interpretation (test code = 20027-1) Normal [facility] GLUCOSE (AUTOMATED)2024-01-29 22:41:05* Test Item Value Reference Range Interpretation Comme nts POCT GLU (test code = 9022113185) 229 mg/dL 70-110 H Lab Interpretation (test cod e = 04471-5) Abnormal [facility] GLUCOSE (AUTOMATED)2024-01-29 22:41:05* Test Item Value Reference Range Interpretation Comme nts POCT GLU (test code = 3368216642) 229 mg/dL 70-110 H Lab Interpretation (test cod e = 76972-0) [facility]normal [facility] Fl[facility] Direct [id number] 22:15:47* Test Item Value Reference Range Interpretation Comme nts BF COLOR (test code = 8663891862) Clear BF WBC Count (test code = 9365282175) 25 0-5 H BF RBC Count (test code = 7379994158) 2 See_Comment [Automated Opendisc] The system which generated this result transmitted reference range: /?L. The reference range was not used to interpret this result as normal/abnormal. Lab Interpretation (test code = 00969-1) [facility]normal [facility] [id number] 22:15:47* Test Item Value Reference Range Interpretation Comme nts BF COLOR (test code = 9682771492) Clear BF WBC Count (test code = 0064209652) 25 0-5 H BF RBC Count (test code = 4766525793) 2 See_Comment [Automated Opendisc] The system which generated this result transmitted reference range: /?L. The reference range was not used to interpret this result as normal/abnormal. Lab Interpretation (test code = 40397-0) [facility]normal [facility] [id number] 21:47:09 * Test Item Value Reference Range Interpretation Comme [facility] GLU CSF (test code = 0546140330) 130 mg/dL 50-80 H UNSPUN BODY FLUID COLOR (test code = 7847986506) Colorless UNSPUN BODY FLUID CLARITY (test code = 1677202373) Clear SPUN BODY FLUID COLOR (test code = 7050775302) Colorless SPUN BODY FLUID CLARITY (test code = 4048194448) Clear Sediment (test code = 1724101097) No sediment observed Lab Interpretation (test code = 27834-4) [facility]normal [facility] [id number] 21:47:09 * Test Item Value Reference Range Interpretation Comme nts T. PRO CSF (test code = 5210332166) 123.0 mg/dL 15.0-45.0 H UNSPUN BODY FLUID COLOR (test code = 0925582900) Colorless UNSPUN BODY FLUID CLARITY (test code = 4339179392) Clear SPUN BODY FLUID COLOR (test code = 0766191364) Colorless SPUN BODY FLUID CLARITY (test code = 5619605938) Clear Sediment (test code = 6679962667) No sediment observed Lab Interpretation (test code = 56185-9) [facility]normal [facility] [id number] 21:47:09 * Test Item Value Reference Range Interpretation Comme nts GLU CSF (test code = 8982298820) 130 mg/dL 50-80 H UNSPUN BODY FLUID COLOR (test code = 2593692599) Colorless UNSPUN BODY FLUID CLARITY (test code = 7140177222) Clear SPUN BODY FLUID COLOR (test code = 1954865383) Colorless SPUN BODY FLUID CLARITY (test code = 5475022676) Clear Sediment (test code = 9314267379) No sediment observed Lab Interpretation (test code = 10059-7) Abnormal [facility] [id number] 21:47:09 * Test Item Value Reference Range Interpretation Comme nts T. PRO CSF (test code = 6288962109) 123.0 mg/dL 15.0-45.0 H UNSPUN BODY FLUID COLOR (test code = 0670794595) Colorless UNSPUN BODY FLUID CLARITY (test code = 4717689902) Clear SPUN BODY FLUID COLOR (test code = 0315523388) Colorless SPUN BODY FLUID CLARITY (test code = 9661864558) Clear Sediment (test code = 7674535988) No sediment observed Lab Interpretation (test code = 13488-0) Abnormal [facility] GLUCOSE (AUTOMATED)2024-01-29 18:41:29* Test Item Value Reference Range Interpretation Comme nts POCT GLU (test code = 4819153039) 232 mg/dL 70-110 H Lab Interpretation (test cod e = 70293-9) Abnormal [facility] GLUCOSE (AUTOMATED)2024-01-29 18:41:29* Test Item Value Reference Range Interpretation Comme nts POCT GLU (test code = 9273804758) 232 mg/dL 70-110 H Lab Interpretation (test cod e = 72969-3) [facility]2 Ag-Ab with [id number] 17:57:58* Test Item Value Reference Range Interpretation Comme nts HIV Semi-quantitative (test code = 91661-2) 0.17 Negative STANFORD (test code = STANFORD) Non-reactive for HIV-1 antigen and HIV-1/HIV-2 antibodies. ?No laboratory evidence of HIV infection. ?Repeat in 2-4 weeks if acute HIV infection is suspected. [facility]2 Ag-Ab with [id number] 17:57:58* Test Item Value Reference Range Interpretation Comme nts HIV Semi-quantitative (test code = 23977-1) 0.17 Negative STANFORD (test code = STANFORD) Non-reactive for HIV-1 antigen and HIV-1/HIV-2 antibodies. ?No laboratory evidence of HIV infection. ?Repeat in 2-4 weeks if acute HIV infection is suspected. [facility] GLUCOSE (AUTOMATED)2024-01-29 13:46:31* Test Item Value Reference Range Interpretation Comme [facility] POCT GLU (test code = 4328262898) 196 mg/dL 70-110 H Lab Interpretation (test cod e = 46759-6) Abnormal [facility] GLUCOSE (AUTOMATED)2024-01-29 13:46:31* Test Item Value Reference Range Interpretation Comme [facility] POCT GLU (test code = 5557615840) 196 mg/dL 70-110 H Lab Interpretation (test cod e = 85253-3) Abnormal [facility] HospitalMagnesium2024-07-07 07:04:09* Test Item Value Reference Range Interpretation Comme nts MAGNESIUM (test code = 3436192937) 2.0 mg/dL 1.7-2.4 Lab Interpretation (test cod e = 83028-6) [facility] (NA, K, CL, CO2, GLUCOSE, BUN, CREATININE, CA)2024-01-29 07:04:09* Test Item Value Reference Range Interpretation Comme nts NA (test code = 4983087283) 137 mmol/L 135-145 K (test code = 9059694719) 3.8 mmol/L 3.5-5.0 CL (test code = 7459387460) 103 mmol/L 98-108 CO2 TOTAL (test code = 6712803534) 28 mmol/L 23-31 AGAP (test code = 5175692562) 6 2-16 BUN (test code = 3364913948) 18 mg/dL 7-23 GLUCOSE (test code = 4907785659) 263 mg/dL 70-110 H CREATININE (test code = 2160-0) 0.71 mg/dL 0.60-1.25 CALCIUM (test code = 2761363559) 9.4 mg/dL 8.6-10.6 eGFR (test code = 09395-2) 111.8 mL/min/1.73m2 CKD-EPI eGFR (2020). Assuming creatinine has been stable day-to-day for at least three months, the eGFR indicates Category G1 (>= 90 mL/min/1.73 m2) Lab Interpretation (test code = 60853-3) [facility]normal [facility]2024-07-07 07:04:09* Test Item Value Reference Range Interpretation Comme nts MAGNESIUM (test code = 9199135098) 2.0 mg/dL 1.7-2.4 Lab Interpretation (test cod e = 44292-4) Normal [facility] Metabolic Panel (NA, K, CL, CO2, GLUCOSE, BUN, CREATININE, CA)2024-01-29 07:04:09* Test Item Value Reference Range Interpretation Comme nts NA (test code = 2554621667) 137 mmol/L 135-145 K (test code = 7051801676) 3.8 mmol/L 3.5-5.0 CL (test code = 4232771304) 103 mmol/L 98-108 CO2 TOTAL (test code = 7815294134) 28 mmol/L 23-31 AGAP (test code = 8780701457) 6 2-16 BUN (test code = 1776842933) 18 mg/dL 7-23 GLUCOSE (test code = 6434160538) 263 mg/dL 70-110 H CREATININE (test code = 2160-0) 0.71 mg/dL 0.60-1.25 CALCIUM (test code = 3541165175) 9.4 mg/dL 8.6-10.6 eGFR (test code = 14453-6) 111.8 mL/min/1.73m2 CKD-EPI eGFR (2020). Assuming creatinine has been stable day-to-day for at least three months, the eGFR indicates Category G1 (>= 90 mL/min/1.73 m2) Lab Interpretation (test code = 74747-5) Abnormal [facility] GLUCOSE (AUTOMATED)2024-01-29 06:52:50* Test Item Value Reference Range Interpretation Comme nts POCT GLU (test code = 4389191955) 198 mg/dL 70-110 H Lab Interpretation (test cod e = 40888-7) [facility] 06:52:50* Test Item Value Reference Range Interpretation Comme nts POCT GLU (test code = 8002326612) 198 mg/dL 70-110 H Lab Interpretation (test cod e = 74981-6) [facility] 02:04:02* Test Item Value Reference Range Interpretation Comme nts POCT GLU (test code = 9507336198) 325 mg/dL 70-110 H Lab Interpretation (test cod e = 86422-5) Abnormal [facility] GLUCOSE (AUTOMATED)2024-01-29 02:04:02* Test Item Value Reference Range Interpretation Comme nts POCT GLU (test code = 8794133917) 325 mg/dL 70-110 H Lab Interpretation (test cod e = 11864-7) Abnormal [facility] GLUCOSE (AUTOMATED)2024-01-28 18:42:57* Test Item Value Reference Range Interpretation Comme nts POCT GLU (test code = 2612812430) 259 mg/dL 70-110 H Lab Interpretation (test cod e = 86631-9) [facility] 18:42:57* Test Item Value Reference Range Interpretation Comme nts POCT GLU (test code = 1723167318) 259 mg/dL 70-110 H Lab Interpretation (test cod e = 82761-5) [facility] 14:19:56* Test Item Value Reference Range Interpretation Comme nts POCT GLU (test code = 5167278951) 219 mg/dL 70-110 H Lab Interpretation (test cod e = 65879-1) Abnormal [facility] GLUCOSE (AUTOMATED)2024-01-28 14:19:56* Test Item Value Reference Range Interpretation Comme nts POCT GLU (test code = 1542614184) 219 mg/dL 70-110 H Lab Interpretation (test cod e = 86112-5) Abnormal [facility] GLUCOSE (AUTOMATED)2024-01-28 05:04:53* Test Item Value Reference Range Interpretation Comme nts POCT GLU (test code = 1018562449) 239 mg/dL 70-110 H Notified Provide r Lab Interpretation (test code = 93361-6) [facility]28 05:04:53* Test Item Value Reference Range Interpretation Comme nts POCT GLU (test code = 9643357941) 239 mg/dL 70-110 H Notified Provide r Lab Interpretation (test code = 87404-7) Abnormal [facility] GLUCOSE (AUTOMATED)2024-01-28 01:46:53* Test Item Value Reference Range Interpretation Comme nts POCT GLU (test code = 3711125040) 338 mg/dL 70-110 H Notified Provide r Lab Interpretation (test code = 68129-9) Abnormal [facility] GLUCOSE (AUTOMATED)2024-01-28 01:46:53* Test Item Value Reference Range Interpretation Comme nts POCT GLU (test code = 1627404123) 338 mg/dL 70-110 H Notified Provide r Lab Interpretation (test code = 86477-9) [facility] 19:49:11* Test Item Value Reference Range Interpretation Comme nts POCT GLU (test code = 3455151632) 215 mg/dL 70-110 H Lab Interpretation (test cod e = 12159-6) Abnormal [facility] GLUCOSE (AUTOMATED)2024-01-27 19:49:11* Test Item Value Reference Range Interpretation Comme nts POCT GLU (test code = 5394066539) 215 mg/dL 70-110 H Lab Interpretation (test cod e = 13696-0) [facility] 15:48:26* Test Item Value Reference Range Interpretation Comme nts POCT GLU (test code = 5818393631) 228 mg/dL 70-110 H Lab Interpretation (test cod e = 24938-8) Abnormal [facility] GLUCOSE (AUTOMATED)2024-01-27 15:48:26* Test Item Value Reference Range Interpretation Comme nts POCT GLU (test code = 5047190635) 228 mg/dL 70-110 H Lab Interpretation (test cod e = 88879-1) Abnormal [facility] GLUCOSE (AUTOMATED)2024-01-27 01:53:20* Test Item Value Reference Range Interpretation Comme nts POCT GLU (test code = 0948009883) 267 mg/dL 70-110 H Lab Interpretation (test cod e = 23690-3) Abnormal [facility] GLUCOSE (AUTOMATED)2024-01-27 01:53:20* Test Item Value Reference Range Interpretation Comme nts POCT GLU (test code = 1301800824) 267 mg/dL 70-110 H Lab Interpretation (test cod e = 12912-9) Abnormal [facility] GLUCOSE (AUTOMATED)2024-01-26 22:43:39* Test Item Value Reference Range Interpretation Comme nts POCT GLU (test code = 0279048120) 210 mg/dL 70-110 H Lab Interpretation (test cod e = 60281-2) Abnormal [facility] GLUCOSE (AUTOMATED)2024-01-26 22:43:39* Test Item Value Reference Range Interpretation Comme nts POCT GLU (test code = 8755272137) 210 mg/dL 70-110 H Lab Interpretation (test cod e = 46383-3) Abnormal [facility] GLUCOSE (AUTOMATED)2024-01-26 16:52:50* Test Item Value Reference Range Interpretation Comme nts POCT GLU (test code = 3548188156) 182 mg/dL 70-110 H Lab Interpretation (test cod e = 98188-6) Abnormal [facility] GLUCOSE (AUTOMATED)2024-01-26 16:52:50* Test Item Value Reference Range Interpretation Comme nts POCT GLU (test code = 0722724009) 182 mg/dL 70-110 H Lab Interpretation (test cod e = 62290-8) Abnormal [facility] GLUCOSE (AUTOMATED)2024-01-26 12:54:31* Test Item Value Reference Range Interpretation Comme nts POCT GLU (test code = 6454628396) 167 mg/dL 70-110 H Lab Interpretation (test cod e = 21032-8) Abnormal [facility] GLUCOSE (AUTOMATED)2024-01-26 12:54:31* Test Item Value Reference Range Interpretation Comme nts POCT GLU (test code = 0870180661) 167 mg/dL 70-110 H Lab Interpretation (test cod e = 64297-3) Abnormal [facility] GLUCOSE (AUTOMATED)2024-01-26 01:10:48* Test Item Value Reference Range Interpretation Comme nts POCT GLU (test code = 9951082586) 179 mg/dL 70-110 H Lab Interpretation (test cod e = 46099-0) Abnormal [facility] GLUCOSE (AUTOMATED)2024-01-26 01:10:48* Test Item Value Reference Range Interpretation Comme nts POCT GLU (test code = 4344372602) 179 mg/dL 70-110 H Lab Interpretation (test cod e = 41417-5) Abnormal [facility] GLUCOSE (AUTOMATED)2024-01-25 21:51:47* Test Item Value Reference Range Interpretation Comme nts POCT GLU (test code = 8905010173) 152 mg/dL 70-110 H Lab Interpretation (test cod e = 00854-1) Abnormal [facility] GLUCOSE (AUTOMATED)2024-01-25 21:51:47* Test Item Value Reference Range Interpretation Comme nts POCT GLU (test code = 0323152628) 152 mg/dL 70-110 H Lab Interpretation (test cod e = 30336-1) Abnormal [facility] [id number] 17:28:48* Test Item Value Reference Range Interpretation Comme nts SPUTUM CULTURE (test code = 622-1) 1+ Respiratory debra: Commensal upper respiratory microorganisms only. Gram stain (test code = 664-3) Few Mononuclear cells STANFORD (test code = STANFORD) Bacterial pathogens associated with lower respiratory infections were not identified, which include Pseudomonas aeruginosa and Staphylococcus aureus (MRSA or MSSA). [facility] [id number] 17:28:48* Test Item Value Reference Range Interpretation Comme nts SPUTUM CULTURE (test code = 622-1) 1+ Respiratory debra: Commensal upper respiratory microorganisms only. Gram stain (test code = 664-3) Few Mononuclear cells STANFORD (test code = STANFORD) Bacterial pathogens associated with lower respiratory infections were not identified, which include Pseudomonas aeruginosa and Staphylococcus aureus (MRSA or MSSA). [facility] GLUCOSE (AUTOMATED)2024-01-25 17:02:43* Test Item Value Reference Range Interpretation Comme nts POCT GLU (test code = 9980023380) 185 mg/dL 70-110 H Lab Interpretation (test cod e = 98976-8) Abnormal [facility] GLUCOSE (AUTOMATED)2024-01-25 17:02:43* Test Item Value Reference Range Interpretation Comme nts POCT GLU (test code = 6902957967) 185 mg/dL 70-110 H Lab Interpretation (test cod e = 65576-9) [facility] [id number] 14:03:18EXAM: XR KUB HISTORY: 48 years-old Male; clear OGT . TECHNIQUE: Frontal views of the abdomen and pel vis COM[facility] 2024-[facility]-25 14:03:18EXAM: XR KUB HISTORY: 48 years-old Male; clear OGT . TECHNIQUE: Frontal views of the abdomen and pelvis [facility]-25 13:32:49* Test Item Value Reference Range Interpretation Comme nts POCT GLU (test code = 9404962226) 197 mg/dL 70-110 H Lab Interpretation (test cod e = 61668-5) Abnormal [facility] GLUCOSE (AUTOMATED)2024-01-25 13:32:49* Test Item Value Reference Range Interpretation Comme nts POCT GLU (test code = 1775641826) 197 mg/dL 70-110 H Lab Interpretation (test cod e = 64091-8) Abnormal [facility] GLUCOSE (AUTOMATED)2024-01-25 01:53:37* Test Item Value Reference Range Interpretation Comme nts POCT GLU (test code = 7632787925) 225 mg/dL 70-110 H Lab Interpretation (test cod e = 34716-9) Abnormal [facility] GLUCOSE (AUTOMATED)2024-01-25 01:53:37* Test Item Value Reference Range Interpretation Comme nts POCT GLU (test code = 9950428375) 225 mg/dL 70-110 H Lab Interpretation (test cod e = 83425-9) Abnormal [facility] GLUCOSE (AUTOMATED)2024-01-24 21:06:19* Test Item Value Reference Range Interpretation Comme nts POCT GLU (test code = 6423168544) 202 mg/dL 70-110 H Lab Interpretation (test cod e = 97984-9) [facility] 21:06:19* Test Item Value Reference Range Interpretation Comme nts POCT GLU (test code = 8318222255) 202 mg/dL 70-110 H Lab Interpretation (test cod e = 33560-4) Abnormal [facility] GLUCOSE (AUTOMATED)2024-01-24 17:10:56* Test Item Value Reference Range Interpretation Comme nts POCT GLU (test code = 6390094123) 179 mg/dL 70-110 H Lab Interpretation (test cod e = 01615-1) Abnormal [facility] GLUCOSE (AUTOMATED)2024-01-24 17:10:56* Test Item Value Reference Range Interpretation Comme nts POCT GLU (test code = 6444325792) 179 mg/dL 70-110 H Lab Interpretation (test cod e = 18725-3) Abnormal [facility] GLUCOSE (AUTOMATED)2024-01-24 12:27:42* Test Item Value Reference Range Interpretation Comme nts POCT GLU (test code = 1036127126) 166 mg/dL 70-110 H Lab Interpretation (test cod e = 96076-5) Abnormal [facility] GLUCOSE (AUTOMATED)2024-01-24 12:27:42* Test Item Value Reference Range Interpretation Comme nts POCT GLU (test code = 1805270101) 166 mg/dL 70-110 H Lab Interpretation (test cod e = 67142-9) [facility]normal [facility] Hospital[facility], [id number] 11:26:08* Test Item Value Reference Range Interpretation Comme nts Valproic Acid, Free (test code = 3752980791) 18.8 ug/mL 4.0-15.0 H STANFORD (test code = STANFORD) Toxic Range: ? Greater than 15 ug/mL Test developed and characteristics determined by [email or web address] Laboratory Services. Lab Interpretation (test code = 36314-6) [facility] BranchValpro[facility] Acid, [id number] 11:26:08* Test Item Value Reference Range Interpretation Comme nts Valproic Acid, Free (test code = 6055268372) 18.8 ug/mL 4.0-15.0 H STANFORD (test code = STANFORD) Toxic Range: ? Greater than 15 ug/mL Test developed and characteristics determined by [facility] [[email or web address] Laboratory Services. Lab Interpretation (test code = 72405-1) Abnormal [facility] Metabolic Panel (NA, K, CL, CO2, GLUCOSE, BUN, CREATININE, CA)2024-01-24 10:46:23* Test Item Value Reference Range Interpretation Comme nts NA (test code = 2883576815) 137 mmol/L 135-145 K (test code = 0800362248) 3.7 mmol/L 3.5-5.0 CL (test code = 5163535026) 103 mmol/L 98-108 CO2 TOTAL (test code = 0921154111) 30 mmol/L 23-31 AGAP (test code = 5794670419) 4 2-16 BUN (test code = 9882716328) 10 mg/dL 7-23 GLUCOSE (test code = 3213220611) 168 mg/dL 70-110 H CREATININE (test code = 2160-0) 0.70 mg/dL 0.60-1.25 CALCIUM (test code = 5669190267) 8.7 mg/dL 8.6-10.6 eGFR (test code = 75797-8) 112.3 mL/min/1.73m2 CKD-EPI eGFR (2020). Assuming creatinine has been stable day-to-day for at least three months, the eGFR indicates Category G1 (>= 90 mL/min/1.73 m2) Lab Interpretation (test code = 16613-6) [facility]2024-[facility] 10:46:23* Test Item Value Reference Range Interpretation Comme nts MAGNESIUM (test code = 9207985823) 2.1 mg/dL 1.7-2.4 Lab Interpretation (test cod e = 35607-3) Normal [facility] Metabolic Panel (NA, K, CL, CO2, GLUCOSE, BUN, CREATININE, CA)2024-01-24 10:46:23* Test Item Value Reference Range Interpretation Comme nts NA (test code = 1795699708) 137 mmol/L 135-145 K (test code = 2599303246) 3.7 mmol/L 3.5-5.0 CL (test code = 7593387440) 103 mmol/L 98-108 CO2 TOTAL (test code = 8295214279) 30 mmol/L 23-31 AGAP (test code = 2775235801) 4 2-16 BUN (test code = 3746675550) 10 mg/dL 7-23 GLUCOSE (test code = 7878001587) 168 mg/dL 70-110 H CREATININE (test code = 2160-0) 0.70 mg/dL 0.60-1.25 CALCIUM (test code = 7554183351) 8.7 mg/dL 8.6-10.6 eGFR (test code = 77664-3) 112.3 mL/min/1.73m2 CKD-EPI eGFR (2020). Assuming creatinine has been stable day-to-day for at least three months, the eGFR indicates Category G1 (>= 90 mL/min/1.73 m2) Lab Interpretation (test code = 54373-5) [facility]24-[facility] 10:46:23* Test Item Value Reference Range Interpretation Comme nts MAGNESIUM (test code = 7726372185) 2.1 mg/dL 1.7-2.4 Lab Interpretation (test cod e = 49543-7) Normal [facility] with Hmum2993-28-79 09:00:37* Test Item Value Reference Range Interpretation Comme nts WBC (test code = 6690-2) 7.59 4.20-10.70 RBC (test code = 789-8) 4.00 4.26-5.52 L HGB (test code = 718-7) 11.0 g/dL 12.2-16.4 L HCT (test code = 4544-3) 34.6 % 38.4-49.3 L MCV (test code = 787-2) 86.5 fL 81.7-95.6 MCH (test code = 785-6) 27.5 pg 26.1-32.7 MCHC (test code = 786-4) 31.8 g/dL 31.2-35.0 RDW-SD (test code = 41627-8) 44.5 fL 38.5-51.6 RDW-CV (test code = 788-0) 14.0 % 12.1-15.4 PLT (test code = 777-3) 303 150-328 MPV (test code = 65207-0) 9.4 fL 9.8-13.0 L NRBC/100 WBC (test code = 7041723404) 0.0 0.0-10.0 NRBC x10^3 (test code = 7708964043) See_Comment [Automated messa ge] The system which generated this result transmitted reference range: 10*3/?L. The reference range was not used to interpret this result as normal/abnormal. GRAN MAT (NEUT) % (test code = 770-8) 63.5 % IMM GRAN % (test code = 9853677349) 0.30 % LYMPH % (test code = 736-9) 12.6 % MONO % (test code = 5905-5) 19.9 % EOS % (test code = 713-8) 3.3 % BASO % (test code = 706-2) 0.4 % GRAN MAT x10^3(ANC) (test code = 9617206447) 4.82 10*3/uL 1.99-6.95 IMM GRAN x10^3 (test code = 3570123416) 0.00-0.06 LYMPH x10^3 (test code = 731-0) 0.96 10*3/uL 1.09-3.23 L MONO x10^3 (test code = 742-7) 1.51 10*3/uL 0.36-1.02 H EOS x10^3 (test code = 711-2) 0.25 10*3/uL 0.06-0.53 BASO x10^3 (test code = 704-7) 0.03 10*3/uL 0.01-0.09 BANDS (test code = 4399856252) Increased A Lab Interpretation (test code = 02659-1) Abnormal [facility] with [id number] 09:00:37* Test Item Value Reference Range Interpretation Comme nts WBC (test code = 6690-2) 7.59 4.20-10.70 RBC (test code = 789-8) 4.00 4.26-5.52 L HGB (test code = 718-7) 11.0 g/dL 12.2-16.4 L HCT (test code = 4544-3) 34.6 % 38.4-49.3 L MCV (test code = 787-2) 86.5 fL 81.7-95.6 MCH (test code = 785-6) 27.5 pg 26.1-32.7 MCHC (test code = 786-4) 31.8 g/dL 31.2-35.0 RDW-SD (test code = 72575-3) 44.5 fL 38.5-51.6 RDW-CV (test code = 788-0) 14.0 % 12.1-15.4 PLT (test code = 777-3) 303 150-328 MPV (test code = 64384-4) 9.4 fL 9.8-13.0 L NRBC/100 WBC (test code = 6340534650) 0.0 0.0-10.0 NRBC x10^3 (test code = 7039400144) See_Comment [Automated messa ge] The system which generated this result transmitted reference range: 10*3/?L. The reference range was not used to interpret this result as normal/abnormal. GRAN MAT (NEUT) % (test code = 770-8) 63.5 % IMM GRAN % (test code = 0172498455) 0.30 % LYMPH % (test code = 736-9) 12.6 % MONO % (test code = 5905-5) 19.9 % EOS % (test code = 713-8) 3.3 % BASO % (test code = 706-2) 0.4 % GRAN MAT x10^3(ANC) (test code = 8036969399) 4.82 10*3/uL 1.99-6.95 IMM GRAN x10^3 (test code = 8285613397) 0.00-0.06 LYMPH x10^3 (test code = 731-0) 0.96 10*3/uL 1.09-3.23 L MONO x10^3 (test code = 742-7) 1.51 10*3/uL 0.36-1.02 H EOS x10^3 (test code = 711-2) 0.25 10*3/uL 0.06-0.53 BASO x10^3 (test code = 704-7) 0.03 10*3/uL 0.01-0.09 BANDS (test code = 9843275660) Increased A Lab Interpretation (test code = 35922-7) Abnormal [facility] GLUCOSE (AUTOMATED)2024-01-24 02:48:54* Test Item Value Reference Range Interpretation Comme nts POCT GLU (test code = 5238283429) 176 mg/dL 70-110 H Lab Interpretation (test cod e = 53778-0) Abnormal [facility] GLUCOSE (AUTOMATED)2024-01-24 02:48:54* Test Item Value Reference Range Interpretation Comme nts POCT GLU (test code = 5729246869) 176 mg/dL 70-110 H Lab Interpretation (test cod e = 09008-0) Abnormal [facility] GLUCOSE (AUTOMATED)2024-01-23 22:29:22* Test Item Value Reference Range Interpretation Comme nts POCT GLU (test code = 2073500554) 135 mg/dL 70-110 H Lab Interpretation (test cod e = 59070-7) Abnormal [facility] GLUCOSE (AUTOMATED)2024-01-23 22:29:22* Test Item Value Reference Range Interpretation Comme nts POCT GLU (test code = 7875692962) 135 mg/dL 70-110 H Lab Interpretation (test cod e = 89279-9) Abnormal [facility] HEAD WO [id number] 19:01:25CT HEAD WO CONTRAST HISTORY: seizure COMPARISON: CT head on 03/20/2023 and 05/05/2022. MR brain on 12/08/2023. TECHNIQUE: Axial CT of the head without contrast was performed. Coronal andsagittal reformatted images were generated. FINDINGS: The ventricles and cerebral sulci are prominent but compatible with degreeof cerebral volume loss. No hydrocephalus, midline shift or pathologicalextra-axial fluid collection is present. The basal cisterns areunremarkable. There is no acute intracranial hemorrhage or significant mass effect.Periventricular and deep white matter hypodensities are nonspecific but mayrepresent small vessel ischemic changes. The clements-white matterdifferentiation is preserved. Moderate opacification of the ethmoid, sphenoid and maxillary sinuses. Themastoid air cells are clear.Remote right frontal craniotomy is again seen. The central skull base isunremarkable.[facility] 19:01:25CT HEAD WO CONTRAST HISTORY: seizure COMPARISON: CT head on 03/20/2023 and 05/05/2022. MR brain on 12/08/2023. TECHNIQUE: Axial CT of the head without contrast was performed. Coronal andsagittal reformatted images were generated. FINDINGS: The ventricles and cerebral sulci are prominent but compatible with degreeof cerebral volume loss. No hydrocephalus, midline shift or pathologicalextra-axial fluid collection is present. The basal cisterns areunremarkable. There is no acute intracranial hemorrhage or significant mass effect.Periventricular and deep white matter hypodensities are nonspecific but mayrepresent small vessel ischemic changes. The clements-white matterdifferentiation is preserved. Moderate opacification of the ethmoid, sphenoid and maxillary sinuses. Themastoid air cells are clear.Remote right frontal craniotomy is again seen. The central skull base isunremarkable.[facility] Hepatic Function Panel (52525) (ALB,T.PRO,BILI T,BU/BC,ALT,AST,ALK PHOS) 2024-01-23 17:08:30* Test Item Value Reference Range Interpretation Comme nts TOTAL BILI (test code = 4366742234) 0.3 mg/dL 0.1-1.1 BILI UNCON (test code = 2794996728) 0.1 mg/dL 0.1-1.1 BILI CONJ (test code = 8371626739) 0.0 mg/dL 0.0-0.3 T PROTEIN (test code = 6674352583) 5.6 g/dL 6.3-8.2 L ALBUMIN (test code = 9307440289) 3.2 g/dL 3.5-5.0 L ALK PHOS (test code = 5765736226) 91 U/L 34-122 ALTv (test code = 1742-6) 24 U/L 5-50 AST(SGOT) (test code = 8094070883) 21 U/L 13-40 Lab Interpretation (test cod e = 03212-0) Abnormal [facility] (75668) (ALB,T.PRO,BILI T,BU/BC,ALT,AST,ALK PHOS)2024-01-23 17:08:30* Test Item Value Reference Range Interpretation Comme nts TOTAL BILI (test code = 6670125270) 0.3 mg/dL 0.1-1.1 BILI UNCON (test code = 3282473317) 0.1 mg/dL 0.1-1.1 BILI CONJ (test code = 6984230712) 0.0 mg/dL 0.0-0.3 T PROTEIN (test code = 9836528059) 5.6 g/dL 6.3-8.2 L ALBUMIN (test code = 2009607856) 3.2 g/dL 3.5-5.0 L ALK PHOS (test code = 8807146216) 91 U/L 34-122 ALTv (test code = 1742-6) 24 U/L 5-50 AST(SGOT) (test code = 4991386954) 21 U/L 13-40 Lab Interpretation (test cod e = 20275-2) [facility]normal [facility]2024-01-23 13:18:14* Test Item Value Reference Range Interpretation Comme nts POCT GLU (test code = 7410166001) 119 mg/dL 70-110 H Lab Interpretation (test cod e = 08667-5) Abnormal [facility]2024-01-23 13:18:14* Test Item Value Reference Range Interpretation Comme nts POCT GLU (test code = 7606954885) 119 mg/dL 70-110 H Lab Interpretation (test cod e = 42763-1) Abnormal [facility] 1 [id number] 11:28:15Study: Single view chest. Ordering Physician: JEAN-CLAUDE HURLEY Date: 01/23/2024 1:15 AM History:Intubated, respiratory failure. COMPARISON: 03/21/2023 Findings: Single frontal view chest demonstrates a normal heart size. Smallpleural effusions are identified. No infiltrate or pneumothorax is present.The endotracheal tube terminates 2.5 cm above the reed. Theesophagogastric tube courses below the diaphragm. The right internaljugular venous catheter terminates over the distal superior vena cava.[facility] view 2024-01-23 11:28:15Study: Single view chest. Ordering Physician: JEAN-CLAUDE HURLEY Date: 01/23/2024 1:15 AM History:Intubated, respiratory failure. COMPARISON: 03/21/2023 Findings: Single frontal view chest demonstrates a normal heart size. Smallpleural effusions are identified. No infiltrate or pneumothorax is present.The endotracheal tube terminates 2.5 cm above the reed. Theesophagogastric tube courses below thediaphragm. The right internaljugular venous catheter terminates over the distal superior vena cava.[facility] HospitalValproic Acid, [id number] 10:39:03* Test Item Value Reference Range Interpretation Comme nts Valproic Acid, Free (test code = 7896690312) 28.4 ug/mL 4.0-15.0 H [place]ORD (test code = STANFORD) Toxic Range: ? Greater than 15 ug/mL Test developed and characteristics determined by [facility] [[email or web address]] Laboratory Services. Lab Interpretation (test code = 12941-5) Abnormal [facility] HospitalValpro[facility] Acid, [id number] 10:39:03* Test Item Value Reference Range Interpretation Comme nts Valproic Acid, Free (test code = 8282585658) 28.4 ug/mL 4.0-15.0 H STAN[place]ORD (test code = STANFORD) Toxic Range: ? Greater than 15 ug/mL Test developed and characteristics determined by [facility] [[email or web address] Laboratory Services. Lab Interpretation (test code = 31471-9) Abnormal [facility] HospitalGlycosylated Hemoglobin (A1C)2024-01-23 09:53:50* Test Item Value Reference Range Interpretation Comme nts HGB A1C (test code = 4548-4) 8.2 % 4.0-5.7 H STANFORD (test code = STANFORD) Reference RangesNormal: <5.7%Prediabetes: 5.7 - 6.4%Diabetes: > 6.5% Lab Interpretation (test code = 88273-0) Abnormal [facility] Hemoglobin (A1C)2024-01-23 09:53:50* Test Item Value Reference Range Interpretation Comme nts HGB A1C (test code = 4548-4) 8.2 % 4.0-5.7 H STANFORD (test code = STAFNORD) Reference RangesNormal: <5.7%Prediabetes: 5.7 - 6.4%Diabetes: > 6.5% Lab Interpretation (test code = 77946-2) Abnormal [facility] Panel 20 + Lactic [id number] 08:51:05* Test Item Value Reference Range Interpretation Comme nts PH (test code = 2) 7.42 7.35-7.45 PCO2 (test code = 8220811674) 42 35-45 PO2 (test code = 0296553717) 100 80-100 HCO3 (test code = 8272696200) 27 22-26 H BE (test code = 2836003739) 2.0 -3.0-3.0 THB (test code = 9356537601) 12.5 g/dL 13.5-18.0 L %O2HB (test code = 8210469207) 97.0 % 94.0-99.0 %COHB ART (test code = 4692984190) 0.3 % 0.0-1.5 %METHB ART (test code = 7564091189) 0.1 % 0.4-1.5 L VOL%O2 ART (test code = 6124070866) 17.2 % 15.0-23.0 NA (test code = 9030420981) 141 mmol/L 135-145 K+ (test code = 0264767305) 3.2 mmol/L 3.5-5.0 L AC CA IONZ (test code = 6667377956) 4.70 mg/dL 4.50-5.30 GLUCOSE (test code = 6806886516) 131 mg/dL 70-110 H LACTIC ACID (test code = 4876414959) 1.53 mmol/L 0.50-2.20 QUES Lab Interpretation (test cod e = 88708-7) Abnormal [facility] 20 + Lactic [id number] 08:51:05* Test Item Value Reference Range Interpretation Comme nts PH (test code = 2) 7.42 7.35-7.45 PCO2 (test code = 8061824951) 42 35-45 PO2 (test code = 7303304544) 100 80-100 HCO3 (test code = 4967717754) 27 22-26 H BE (test code = 4104457096) 2.0 -3.0-3.0 THB (test code = 8733790988) 12.5 g/dL 13.5-18.0 L %O2HB (test code = 4897029885) 97.0 % 94.0-99.0 %COHB ART (test code = 4773359374) 0.3 % 0.0-1.5 %METHB ART (test code = 2504811071) 0.1 % 0.4-1.5 L VOL%O2 ART (test code = 3553055031) 17.2 % 15.0-23.0 NA (test code = 6578344536) 141 mmol/L 135-145 K+ (test code = 0119924478) 3.2 mmol/L 3.5-5.0 L AC CA IONZ (test code = 8534252952) 4.70 mg/dL 4.50-5.30 GLUCOSE (test code = 0163632184) 131 mg/dL 70-110 H LACTIC ACID (test code = 3292393094) 1.53 mmol/L 0.50-2.20 QUES Lab Interpretation (test cod e = 34060-5) Abnormal [facility] HospitalTrgitanin [id number] 06:55:50* Test Item Value Reference Range Interpretation Comme nts TROPONIN I (test code = 5788094882) 0.002 ng/mL <=0.034 STANFORD (test code = STANFORD) Reference (Normal) [...] of biotin. Lab Interpretation (test code = 14405-0) Normal [facility] HospitalTroponin [id number] 06:55:50* Test Item Value Reference Range Interpretation Comme nts TROPONIN I (test code = 9532102324) 0.002 ng/mL <=0.034 ST[place]ORD (test code = STANFORD) Reference (Normal) [...] of biotin. Lab Interpretation (test code = 56641-8) Normal [facility] (NA, K, CL, CO2, GLUCOSE, BUN, CREATININE, CA)2024-01-23 06:43:51* Test Item Value Reference Range Interpretation Comme nts NA (test code = 7854614860) 140 mmol/L 135-145 K (test code = 2737605211) 3.1 mmol/L 3.5-5.0 L CL (test code = 8553173191) 103 mmol/L 98-108 CO2 TOTAL (test code = 9736321908) 31 mmol/L 23-31 AGAP (test code = 7522870748) 6 2-16 BUN (test code = 5740258852) 11 mg/dL 7-23 GLUCOSE (test code = 6455830409) 148 mg/dL 70-110 H CREATININE (test code = 2160-0) 0.75 mg/dL 0.60-1.25 CALCIUM (test code = 3777360726) 8.7 mg/dL 8.6-10.6 eGFR (test code = 24205-5) 109.9 mL/min/1.73m2 CKD-EPI eGFR (2020). Assuming creatinine has been stable day-to-day for at least three months, the eGFR indicates Category G1 (>= 90 mL/min/1.73 m2) Lab Interpretation (test code = 89048-6) Abnormal [facility] Metabolic Panel (NA, K, CL, CO2, GLUCOSE, BUN, CREATININE, CA)2024-01-23 06:43:51* Test Item Value Reference Range Interpretation Comme nts NA (test code = 7655286981) 140 mmol/L 135-145 K (test code = 3196338355) 3.1 mmol/L 3.5-5.0 L CL (test code = 8353103168) 103 mmol/L 98-108 CO2 TOTAL (test code = 8547759300) 31 mmol/L 23-31 AGAP (test code = 3941613086) 6 2-16 BUN (test code = 7180123795) 11 mg/dL 7-23 GLUCOSE (test code = 5456535145) 148 mg/dL 70-110 H CREATININE (test code = 2160-0) 0.75 mg/dL 0.60-1.25 CALCIUM (test code = 0071693372) 8.7 mg/dL 8.6-10.6 eGFR (test code = 66493-5) 109.9 mL/min/1.73m2 CKD-EPI eGFR (2020). Assuming creatinine has been stable day-to-day for at least three months, the eGFR indicates Category G1 (>= 90 mL/min/1.73 m2) Lab Interpretation (test code = 27407-6) Abnormal [facility] With [id number] 06:34:53* Test Item Value Reference Range Interpretation Comme nts WBC (test code = 6690-2) 6.40 4.20-10.70 RBC (test code = 789-8) 4.18 4.26-5.52 L HGB (test code = 718-7) 11.6 g/dL 12.2-16.4 L HCT (test code = 4544-3) 35.1 % 38.4-49.3 L MCV (test code = 787-2) 84.0 fL 81.7-95.6 MCH (test code = 785-6) 27.8 pg 26.1-32.7 MCHC (test code = 786-4) 33.0 g/dL 31.2-35.0 RDW-SD (test code = 23412-7) 42.3 fL 38.5-51.6 RDW-CV (test code = 788-0) 13.8 % 12.1-15.4 PLT (test code = 777-3) 334 150-328 H MPV (test code = 29066-0) 9.4 fL 9.8-13.0 L NRBC/100 WBC (test code = 2838611104) 0.0 0.0-10.0 NRBC x10^3 (test code = 9310117128) See_Comment [Automated messa ge] The system which generated this result transmitted reference range: 10*3/?L. The reference range was not used to interpret this result as normal/abnormal. GRAN MAT (NEUT) % (test code = 770-8) 59.5 % IMM GRAN % (test code = 3085830774) 0.50 % LYMPH % (test code = 736-9) 23.6 % MONO % (test code = 5905-5) 14.7 % EOS % (test code = 713-8) 1.4 % BASO % (test code = 706-2) 0.3 % GRAN MAT x10^3(ANC) (test code = 2929976316) 3.81 10*3/uL 1.99-6.95 IMM GRAN x10^3 (test code = 7012604164) 0.03 10*3/uL 0.00-0.06 LYMPH x10^3 (test code = 731-0) 1.51 10*3/uL 1.09-3.23 MONO x10^3 (test code = 742-7) 0.94 10*3/uL 0.36-1.02 EOS x10^3 (test code = 711-2) 0.09 10*3/uL 0.06-0.53 BASO x10^3 (test code = 704-7) 0.01-0.09 Lab Interpretation (test code = 68642-4) Abnormal [facility] With [id number] 06:34:53* Test Item Value Reference Range Interpretation Comme nts WBC (test code = 6690-2) 6.40 4.20-10.70 RBC (test code = 789-8) 4.18 4.26-5.52 L HGB (test code = 718-7) 11.6 g/dL 12.2-16.4 L HCT (test code = 4544-3) 35.1 % 38.4-49.3 L MCV (test code = 787-2) 84.0 fL 81.7-95.6 MCH (test code = 785-6) 27.8 pg 26.1-32.7 MCHC (test code = 786-4) 33.0 g/dL 31.2-35.0 RDW-SD (test code = 53067-2) 42.3 fL 38.5-51.6 RDW-CV (test code = 788-0) 13.8 % 12.1-15.4 PLT (test code = 777-3) 334 150-328 H MPV (test code = 70380-8) 9.4 fL 9.8-13.0 L NRBC/100 WBC (test code = 4227481606) 0.0 0.0-10.0 NRBC x10^3 (test code = 4722142348) See_Comment [Automated messa ge] The system which generated this result transmitted reference range: 10*3/?L. The reference range was not used to interpret this result as normal/abnormal. GRAN MAT (NEUT) % (test code = 770-8) 59.5 % IMM GRAN % (test code = 9719784472) 0.50 % LYMPH % (test code = 736-9) 23.6 % MONO % (test code = 5905-5) 14.7 % EOS % (test code = 713-8) 1.4 % BASO % (test code = 706-2) 0.3 % GRAN MAT x10^3(ANC) (test code = 9130381939) 3.81 10*3/uL 1.99-6.95 IMM GRAN x10^3 (test code = 3952888008) 0.03 10*3/uL 0.00-0.06 LYMPH x10^3 (test code = 731-0) 1.51 10*3/uL 1.09-3.23 MONO x10^3 (test code = 742-7) 0.94 10*3/uL 0.36-1.02 EOS x10^3 (test code = 711-2) 0.09 10*3/uL 0.06-0.53 BASO x10^3 (test code = 704-7) 0.01-0.09 Lab Interpretation (test code = 72517-2) Abnormal [facility]ro[facility] - Duration of test: Continuous EEG Monitoring (LTM); Release to patient:Mggjlqpgi2314-35-67 00:00:00 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 REPORT TECHNICAL SUMMARY: The EEG was recorded digitally. Electrodes were applied using the International 10/20 System of electrode placement. Eye movements and rhythm strip ECG were monitored on separate channels of the ongoing EEG recording. There is no ?occipital dominant rhythm. Diffuse moderate slowing with superimposed fast activity is seen. Higher amplitude is seen in the right parasaggital region. ?Occasional to frequent sharp waves are seen in the right frontal region (F4/FP2). Wakefulness, drowsiness and sleep can not be determined. No electrographic seizures ?are seen. Tachycardia is seen in the EKG lead. IMPRESSION: This EEG is abnormal due to 1) diffuse moderate slowing with superposed fast activity, indicative of diffuse moderate disturbancein cerebral function, but could also be at least partially explained by sedating medication.2) occasional to frequent sharp waves in the right anterior head region, indicative of potential epileptic seizure to arise from that region. 3) higher amplitude in the right parasaggital region, indicative breach rhythm (a skull defect in that region). 4) tachycardia I notify the neurology team immediately after I read this segment. Nicolette Aldana MD, PhD Date of interpretation: 01/23/2024 CUSTODIAL EEG MONITORING SEGMENT #2Date and Time of Procedure: 01/23/2024, 04:46:46 to 16:40 Impression:Relative, sharply contoured, higher amplitude activity in right parasaggital region, c/w breach rhythmGeneralized slowing, delta, beta, reactive This is an abnormal EEG indicating the presence of moderate encephalopathy of non-specific etiology. Breach rhythm in right parasaggital region in indicative of underlying skull defect. Eileen Mena Professor,Department of Neurology, [facility] [[email or web address]] CUSTODIAL EEG MONITORING SEGMENT #3Date and Time of Procedure: 01/23/2024, 16:40 to 21:24 EEG Findings: - Generalized continuous slowing consisting of delta frequency with superimposed sharply contoured beta activity.- State changes and reactivity arepresent. - Increased amplitude in right parasaggital region. Clinical Impression:This is an abnormal EEG indicating the presence of moderate encephalopathy and a skull defect over the right hemisphere. No epileptiform discharges or seizures are seen. No change in the EEG is noted compared to the preceding segment. Mirna Hurley MDNeurocritical Care/[facility] [place] Department of Neurology ASSISTANT PROFESSOR OF CHEMISTRY EEG MONITORING SEGMENT #4: 01/23/2024, 21:24-01/24/2024, 7:00; 01/24/2024, 7:01-12:05 This EEG segment is abnormal due to:1) moderate diffuse slowing, suggestive of a moderate diffuse disturbance in cerebral function.2) excess fast activity, suggestive of medication effect.3) breach rhythm inthe right parasaggital region, suggestive of a skull defect in that region. No electrographic seizures or epileptiform abnormalities are seen. Interpreted by Angela German MD on 01/24/2024 SHELTER EEG MONITORING SEGMENT #4: ?01/24/2024, 12:05 to 15:40 No significant changes were seen comparedto the previous segment. Eileen Mena,Department of Neurology, [facility] [[email or web address]] CUSTODIAL EEG MONITORING SEGMENT #5: ?01/24/2024, 15:40- to 20:12No significant changes were seen compared tothe previous segment. Mike Osunaurocritical Care/[facility] [place] Departmentof Neurology CUSTODIAL EEG MONITORING SEGMENT #6: ?01/24/2024, ?20:12 - 01/25/24, 07:00This EEG segment is abnormal due to:1) moderate diffuse slowing with superimposed fast activity, suggestive of a moderate diffuse disturbance in cerebral function, but could also be at least partially explained by sedating medications. 2) focal slowing at right parasaggital region, indicative of focal disturbance in that region. 3) breach rhythm in the right parasaggital region, suggestive of a skull defect in that region. No electrographic seizures or epileptiform abnormalities are seen. Chantelle Styles CUSTODIAL EEG MONITORING SEGMENT #7: ?01/25/2024, ?07:00:33 - 12:45:10This EEG segment is abnormal due to:1) moderate diffuse slowing with superimposed fast activity, suggestive of a moderate diffuse disturbance in cerebral function, but could also be at least partially explained by sedating medications. 2) focal slowing at right parasaggital region, indicative of focal disturbance in that region. 3) breach rhythm in the right parasaggital region, suggestive of a skull defect in that region. No electrographic seizures or epileptiform abnormalities are seen. Nicolette Aldana MD CUSTODIAL EEG MONITORING SEGMENT #8: ?01/25/2024, ?12:45:10 - 16:34:52This EEG segment is abnormal due to:1) moderate diffuse slowing with superimposed fast activity, suggestive of a moderate diffuse disturbance in cerebral function. 2) focal slowing at right parasaggital region, indicative of focal disturbance in that region. 3) breach rhythm in the right parasaggital region, suggestive of a skull defect in that region. No significant EEG changes compared to previous segment. No electrographic seizures or epileptiform abnormalities are seen. Nicolette Aldana MD CUSTODIAL EEG MONITORING SEGMENT #9: ?01/25/2024 21:37 to 01/26/24 07:46 No significant EEG changes compared to previous segment are seen.There is an electrode artifact in left frontal channels. Mirna Hurley MDNjurocritical Care/[facility] [place] Department of Neurology CUSTODIAL EEG MONITORING SEGMENT #10: ?01/25/2407:46 to 08:02 No significant EEG changes compared to previous segment are seen. There is an electrode artifact in left frontal channels. Eileen Mena Professor,Department of Neurology, [facility] [[email or web address]] --- [facility] 2023-12-08 14:24:39EXAM: MR BRAIN W WO CONTRAST HISTORY: 48 years-old Male; Provided indication: vasculitis Mike Chan III is a 48 year old male with history of seizure and possiblecerebral vasculitis.. TECHNIQUE: Multiplanar multi sequential MRI of the brain was performed withand without IV contrast. COMPARISON: Correlation with brain MRI dated 05/06/[address] head03/20/2023. FINDINGS: Post right frontal craniotomy with underlying encephalomalacia andsusceptibility artifact from mineralization/hemosiderin deposit are noted. Prominent ventricular system suggestive of mild to moderate degree of brainvolu me loss. No midline shift or pathological extra-axial [...] inthe mastoid air cells or paranasal air sinuses.[facility]CD[facility] SUBSET [id number] 21:17:12* Test Item Value Reference Range Interpretation Comme nts CD19 ABS# (test code = 3454981079) 1 See_Comment L [Automated [employer]] The system which generated this result transmitted reference range: 90 - 660 Cells/?L. The reference range was not used to interpret this result as normal/abnormal. CD19 % (test code = 1155529841) 6-25 L Lab Interpretation (test code = 19700-5) [facility]normal [facility]OL[facility]EL (72118)2023-06-03 15:46:58* Test Item Value Reference Range Interpretation Comme nts NA (test code = 3319811435) 140 mmol/L 135-145 K (test code = 3134936559) 4.4 mmol/L 3.5-5.0 Slight hemolysis CL (test code = 9929377911) 103 mmol/L 98-108 CO2 TOTAL (test code = 8493747943) 29 mmol/L 23-31 AGAP (test code = 4748677745) 8 2-16 BUN (test code = 4939092257) 15 mg/dL 7-23 Slight hemolysis GLUCOSE (test code = 5038978808) 119 mg/dL 70-110 H CREATININE (test code = 2501182354) 0.71 mg/dL 0.60-1.25 TOTAL BILI (test code = 8672501735) 0.7 mg/dL 0.1-1.1 CALCIUM (test code = 7904889415) 9.2 mg/dL 8.6-10.6 T PROTEIN (test code = 1811592752) 6.9 g/dL 6.3-8.2 ALBUMIN (test code = 2939611556) 4.1 g/dL 3.5-5.0 ALK PHOS (test code = 8559145132) 68 U/L 34-122 Slight hemolysis ALTv (test code = 1742-6) 25 U/L 5-50 AST(SGOT) (test code = 1785452741) 34 U/L 13-40 Slight hemolysis eGFR (test code = 63117-7) 111.8 mL/min/1.73m2 CKD-EPI eGFR (2020). Assuming creatinine has been stable day-to-day for at least three months, the eGFR indicates Category G1 (>= 90 mL/min/1.73 m2) Lab Interpretation (test code = 93909-2) [facility] (28567)2023-06-03 15:46:58* Test Item Value Reference Range Interpretation Comme nts NA (test code = 0764790176) 140 mmol/L 135-145 K (test code = 3538283980) 4.4 mmol/L 3.5-5.0 Slight hemolysis CL (test code = 4575451872) 103 mmol/L 98-108 CO2 TOTAL (test code = 1860741738) 29 mmol/L 23-31 AGAP (test code = 1063444139) 8 2-16 BUN (test code = 6246062001) 15 mg/dL 7-23 Slight hemolysis GLUCOSE (test code = 2429439131) 119 mg/dL 70-110 H CREATININE (test code = 0825163789) 0.71 mg/dL 0.60-1.25 TOTAL BILI (test code = 7983002275) 0.7 mg/dL 0.1-1.1 CALCIUM (test code = 8568243034) 9.2 mg/dL 8.6-10.6 T PROTEIN (test code = 2750635061) 6.9 g/dL 6.3-8.2 ALBUMIN (test code = 6586781907) 4.1 g/dL 3.5-5.0 ALK PHOS (test code = 7784675524) 68 U/L 34-122 Slight hemolysis ALTv (test code = 1742-6) 25 U/L 5-50 AST(SGOT) (test code = 0586171180) 34 U/L 13-40 Slight hemolysis eGFR (test code = 88859-4) 111.8 mL/min/1.73m2 CKD-EPI eGFR (2020). Assuming creatinine has been stable day-to-day for at least three months, the eGFR indicates Category G1 (>= 90 mL/min/1.73 m2) Lab Interpretation (test code = 40912-1) Abnormal [facility] WITH [id number] 15:33:35* Test Item Value Reference Range Interpretation Comme nts WBC (test code = 6690-2) 5.77 See_Comment [Automated Opendisc] The system which generated this result transmitted reference range: 4.20 - 10.70 10*3/?L. The reference range was not used to interpret this result as normal/abnormal. RBC (test code = 789-8) 4.40 See_Comment [Automated Opendisc] The system which generated this result transmitted [...] 32.6 g/dL 31.2-35.0 RDW-SD (test code = 91907-4) 47.2 fL 38.5-51.6 RDW-CV (test code = 788-0) 14.7 % 12.1-15.4 PLT (test code = 777-3) 234 See_Comment [Automated messa ge] The system which generated this result transmitted reference range: 150 - 328 10*3/?L. The reference range was not used to interpret this result as normal/abnormal. MPV (test code = 65551-9) 10.7 fL 9.8-13.0 NRBC/100 WBC (test code = 3898618771) 0.0 See_Comment [Automated me ssage] The system which generated this result transmitted reference range: 0.0 - 10.0 /100 WBCs. The reference range was not used to interpret this result as normal/abnormal. NRBC x10^3 (test code = 8736969136) See_Comment [Automated me ssage] The system which generated this result transmitted reference range: 10*3/?L. The reference range was not used to interpret this result as normal/abnormal. GRAN MAT (NEUT) % (test code = 770-8) 61.9 % IMM GRAN % (test code = 6970728468) 0.50 % LYMPH % (test code = 736-9) 23.2 % MONO % (test code = 5905-5) 12.0 % EOS % (test code = 713-8) 1.7 % BASO % (test code = 706-2) 0.7 % GRAN MAT x10^3(ANC) (test code = 9693949918) 3.57 10*3/uL 1.99-6.95 IMM GRAN x10^3 (test code = 0018217964) 0.03 10*3/uL 0.00-0.06 LYMPH x10^3 (test code = 731-0) 1.34 10*3/uL 1.09-3.23 MONO x10^3 (test code = 742-7) 0.69 10*3/uL 0.36-1.02 EOS x10^3 (test code = 711-2) 0.10 10*3/uL 0.06-0.53 BASO x10^3 (test code = 704-7) 0.04 10*3/uL 0.01-0.09 [facility] WITH [id number] 15:33:35* Test Item Value Reference Range Interpretation Comme nts WBC (test code = 6690-2) 5.77 See_Comment [Automated [employer] ge] The system which generated this result transmitted reference range: 4.20 - 10.70 10*3/?L. The reference range was not used to interpret this result as normal/abnormal. RBC (test code = 789-8) 4.40 See_Comment [Automated [employer] ge] The system which generated this result [...] 32.6 g/dL 31.2-35.0 RDW-SD (test code = 66048-2) 47.2 fL 38.5-51.6 RDW-CV (test code = 788-0) 14.7 % 12.1-15.4 PLT (test code = 777-3) 234 See_Comment [Automated [employer]] The system which generated this result transmitted reference range: 150 - 328 10*3/?L. The reference range was not used to interpret this result as normal/abnormal. MPV (test code = 17986-2) 10.7 fL 9.8-13.0 NRBC/100 WBC (test code = 4701493016) 0.0 See_Comment [Automated [employer] ssage] The system which generated this result transmitted reference range: 0.0 - 10.0 /100 WBCs. The reference range was not used to interpret this result as normal/abnormal. NRBC x10^3 (test code = 3969059190) See_Comment [Automated [employer] ssage] The system which generated this result transmitted reference range: 10*3/?L. The reference range was not used to interpret this result as normal/abnormal. GRAN MAT (NEUT) % (test code = 770-8) 61.9 % IMM GRAN % (test code = 6161778587) 0.50 % LYMPH % (test code = 736-9) 23.2 % MONO % (test code = 5905-5) 12.0 % EOS % (test code = 713-8) 1.7 % BASO % (test code = 706-2) 0.7 % GRAN MAT x10^3(ANC) (test code = 7127779896) 3.57 10*3/uL 1.99-6.95 IMM GRAN x10^3 (test code = 8846296365) 0.03 10*3/uL 0.00-0.06 LYMPH x10^3 (test code = 731-0) 1.34 10*3/uL 1.09-3.23 MONO x10^3 (test code = 742-7) 0.69 10*3/uL 0.36-1.02 EOS x10^3 (test code = 711-2) 0.10 10*3/uL 0.06-0.53 BASO x10^3 (test code = 704-7) 0.04 10*3/uL 0.01-0.09 [facility] HospitalC-REACTIVE [id number] 20:24:36* Test Item Value Reference Range Interpretation Comme nts CRP (test code = 6928531895) 3.2 mg/dL <=0.8 H Lab Interpretation (test cod e = 07621-1) Abnormal [facility] HospitalFERRITIN [id number] 06:59:28* Test Item Value Reference Range Interpretation Comme nts FERRITIN (test code = 0220241240) 153.0 ng/mL 18.0-464.0 ST[place]ORD (test code = STANFORD) Biotin has been reported to cause a negative bias, interpret results relative to patient's use of biotin. Lab Interpretation (test code = 34069-9) Normal [facility] HospitalPROCALCITONIN2023-08-28 06:52:56* Test Item Value Reference Range Interpretation Comme nts Procalcitonin (test code = 4506207529) 0.03 ng/mL <=0.07 [place] (test code = [...] lung abscess/empyema. For further information please refer to:[email or web address] Lab Interpretation (test code = 54797-5) Normal [facility] HospitalLactic Acid Whole [id number] 03:05:13* Test Item Value Reference Range Interpretation Comme nts LACTIC ACID (test code = 6308481193) 1.18 mmol/L 0.50-2.20 QUES Lab Interpretation (test cod e = 91951-2) Normal [facility] HospitalVALPROIC ACID, [id number] 01:18:26* Test Item Value Reference Range Interpretation Comme nts Valproic Acid, Free (test code = 9351607992) 13.4 ug/mL 4.0-15.0 [place] (test code = STANFORD) Toxic Range: ? Greater than 15 ug/mL Test developed and characteristics determined by [facility] [[email or web address]] Laboratory Services. Lab Interpretation (test code = 62139-8) Normal [facility] HospitalCOM. METABOLIC PANEL (78477)2023-03-20 23:46:14* Test Item Value Reference Range Interpretation Comme nts NA (test code = 9564532021) 138 mmol/L 135-145 K (test code = 0916691808) 3.9 mmol/L 3.5-5.0 CL (test code = 7444018271) 100 mmol/L 98-108 CO2 TOTAL (test code = 6598366800) 27 mmol/L 23-31 AGAP (test code = 5701379613) 11 2-16 BUN (test code = 7502840214) 13 mg/dL 7-23 GLUCOSE (test code = 9599639497) 82 mg/dL 70-110 CREATININE (test code = 8202164941) 0.90 mg/dL 0.60-1.25 TOTAL BILI (test code = 2602492080) 0.5 mg/dL 0.1-1.1 CALCIUM (test code = 1971713672) 8.9 mg/dL 8.6-10.6 T PROTEIN (test code = 8614604045) 6.6 g/dL 6.3-8.2 ALBUMIN (test code = 2532958336) 4.1 g/dL 3.5-5.0 ALK PHOS (test code = 6294008417) 67 U/L 34-122 ALTv (test code = 1742-6) 42 U/L 5-50 AST(SGOT) (test code = 7312825267) 40 U/L 13-40 eGFR (test code = 6476255907) 89.3 mL/min/1.73m2 ST[place]ORD (test code = STANFORD) [...] or urine or abnormalities in imaging tests). [facility]MAG[facility]20[facility] 23:46:14* Test Item Value Reference Range Interpretation Comme nts MAGNESIUM (test code = 7915140789) 1.8 mg/dL 1.7-2.4 Lab Interpretation (test cod e = 21692-8) Normal [facility] HospitalCB WITH [id number] 23:31:14* Test Item Value Reference Range Interpretation [...] 32.8 g/dL 31.2-35.0 RDW-SD (test code = 66106-0) 47.8 fL 38.5-51.6 RDW-CV (test code = 788-0) 14.9 % 12.1-15.4 PLT (test code = 777-3) 209 See_Comment [Automated messa ge] The system which generated this result transmitted reference range: 150 - 328 10*3/?L. The reference range was not used to interpret this result as normal/abnormal. MPV (test code = 74841-8) 9.9 fL 9.8-13.0 NRBC/100 WBC (test code = 5336857579) 0.0 See_Comment [Automated [employer] ssage] The system which generated this result transmitted reference range: 0.0 - 10.0 /100 WBCs. The reference range was not used to interpret this result as normal/abnormal. NRBC x10^3 (test code = 5572635438) See_Comment [Automated messa ge] The system which generated this result transmitted reference range: 10*3/?L. The reference range was not used to interpret this result as normal/abnormal. GRAN MAT (NEUT) % (test code = 770-8) 60.8 % IMM GRAN % (test code = 8104153812) 0.70 % LYMPH % (test code = 736-9) 18.4 % MONO % (test code = 5905-5) 18.7 % EOS % (test code = 713-8) 0.7 % BASO % (test code = 706-2) 0.7 % GRAN MAT x10^3(ANC) (test code = 3618098122) 3.61 10*3/uL 1.99-6.95 IMM GRAN x10^3 (test code = 1783362475) 0.04 10*3/uL 0.00-0.06 LYMPH x10^3 (test code = 731-0) 1.09 10*3/uL 1.09-3.23 MONO x10^3 (test code = 742-7) 1.11 10*3/uL 0.36-1.02 H EOS x10^3 (test code = 711-2) 0.04 10*3/uL 0.06-0.53 L BASO x10^3 (test code = 704-7) 0.04 10*3/uL 0.01-0.09 Lab Interpretation (test code = 01086-4) Abnormal [facility] GLUCOSE (AUTOMATED)2023-02-14 22:18:58* Test Item Value Reference Range Interpretation Comme nts POCT GLU (test code = 9649742377) 174 mg/dL 70-110 H Lab Interpretation (test cod e = 73515-1) Abnormal [facility] GLUCOSE (AUTOMATED)2023-02-14 17:43:43* Test Item Value Reference Range Interpretation Comme nts POCT GLU (test code = 9104526733) 84 mg/dL 70-110 Lab Interpretation (test cod e = 74108-2) Normal [facility] GLUCOSE (AUTOMATED)2022-10-26 13:16:44* Test Item Value Reference Range Interpretation Comme nts POCT GLU (test code = 9301963437) 145 mg/dL 70-110 H Lab Interpretation (test cod e = 00051-4) Abnormal [facility] GLUCOSE (AUTOMATED)2022-10-26 01:20:18* Test Item Value Reference Range Interpretation Comme nts POCT GLU (test code = 1754507912) 240 mg/dL 70-110 H Lab Interpretation (test cod e = 39458-6) Abnormal [facility] GLUCOSE (AUTOMATED)2022-10-25 22:11:38* Test Item Value Reference Range Interpretation Comme nts POCT GLU (test code = 1137107079) 254 mg/dL 70-110 H Lab Interpretation (test cod e = 32868-3) Abnormal [facility] HospitalAMMONIA, [id number] 18:19:20* Test Item Value Reference Range Interpretation Comme nts AMMONIA (test code = 8330749655) 9-33 L Lab Interpretation (test cod e = 12659-2) Abnormal [facility] GLUCOSE (AUTOMATED)2022-10-25 17:32:20* Test Item Value Reference Range Interpretation Comme nts POCT GLU (test code = 3319269579) 212 mg/dL 70-110 H Lab Interpretation (test cod e = 77884-5) Abnormal [facility] GLUCOSE (AUTOMATED)2022-05-08 18:07:15* Test Item Value Reference Range Interpretation Comme nts POCT GLU (test code = 0634366766) 210 mg/dL 70-110 H Lab Interpretation (test cod e = 07802-6) Abnormal [facility] GLUCOSE (AUTOMATED)2022-05-08 13:21:55* Test Item Value Reference Range Interpretation Comme nts POCT GLU (test code = 8138678297) 83 mg/dL 70-110 Lab Interpretation (test cod e = 93260-7) Normal [facility] GLUCOSE (AUTOMATED)2022-05-08 01:16:03* Test Item Value Reference Range Interpretation Comme nts POCT GLU (test code = 0986022058) 133 mg/dL 70-110 H Lab Interpretation (test cod e = 63194-5) Abnormal [facility] GLUCOSE (AUTOMATED)2022-05-07 22:56:43* Test Item Value Reference Range Interpretation Comme nts POCT GLU (test code = 6655885941) 194 mg/dL 70-110 H Lab Interpretation (test cod e = 70345-3) Abnormal [facility] GLUCOSE (AUTOMATED)2022-05-07 13:54:43* Test Item Value Reference Range Interpretation Comme nts POCT GLU (test code = 5290566991) 93 mg/dL 70-110 Lab Interpretation (test cod e = 19679-3) Normal [facility] GLUCOSE (AUTOMATED)2022-05-07 01:10:55* Test Item Value Reference Range Interpretation Comme nts POCT GLU (test code = 5129638880) 148 mg/dL 70-110 H Lab Interpretation (test cod e = 65956-8) Abnormal [facility] HospitalHEPATIC FUNCTION PANEL (44614) (ALB,T.PRO,BILI T,BU/BC,ALT,AST,ALK PHOS)2022-05-07 01:03:23* Test Item Value Reference Range Interpretation Comme nts TOTAL BILI (test code = 5415360906) 0.5 mg/dL 0.1-1.1 BILI UNCON (test code = 4789206264) 0.2 mg/dL 0.1-1.1 BILI CONJ (test code = 4278199213) 0.0 mg/dL 0-0.3 T PROTEIN (test code = 4193359038) 6.3 g/dL 6.3-8.2 ALBUMIN (test code = 9231556018) 3.4 g/dL 3.5-5 L ALK PHOS (test code = 6424124285) 54 U/L 34-122 ALTv (test code = 1742-6) 13 U/L 5-50 AST(SGOT) (test code = 2455489633) 18 U/L 13-40 Lab Interpretation (test cod e = 22732-6) Abnormal [facility] HospitalVALPROIC ACID, [id number] 00:55:25* Test Item Value Reference Range Interpretation Comme nts Valproic Acid, Free (test code = 9891046530) 7.2 ug/mL 4-15 [place] (test code = STANFORD) Toxic Range: ? Greater than 15 ug/mL Test developed and characteristics determined by [facility] [[email or web address]] Laboratory Services. Lab Interpretation (test code = 52560-4) Normal [facility] GLUCOSE (AUTOMATED)2022-05-06 21:54:40* Test Item Value Reference Range Interpretation Comme nts POCT GLU (test code = 3790689290) 149 mg/dL 70-110 H Lab Interpretation (test cod e = 53892-8) Abnormal [facility] GLUCOSE (AUTOMATED)2022-05-06 17:06:34* Test Item Value Reference Range Interpretation Comme nts POCT GLU (test code = 5228114060) 166 mg/dL 70-110 H Lab Interpretation (test cod e = 64832-1) Abnormal [facility] GLUCOSE (AUTOMATED)2022-05-06 13:49:08* Test Item Value Reference Range Interpretation Comme nts POCT GLU (test code = 7746214045) 80 mg/dL 70-110 Lab Interpretation (test cod e = 15988-2) Normal [facility] GLUCOSE (AUTOMATED)2022-05-06 01:44:43* Test Item Value Reference Range Interpretation Comme nts POCT GLU (test code = 6907752570) 158 mg/dL 70-110 H Lab Interpretation (test cod e = 18870-7) Abnormal [facility] GLUCOSE (AUTOMATED)2022-05-05 22:39:13* Test Item Value Reference Range Interpretation Comme nts POCT GLU (test code = 7855141834) 79 mg/dL 70-110 Lab Interpretation (test cod e = 42726-9) Normal [facility] HospitalGLYCOSYLATED HEMOGLOBIN (A1C)2022-05-05 21:54:43* Test Item Value Reference Range Interpretation Comme nts HGB A1C (test code = 4548-4) 6.7 % 4-5.7 H [place] (test code = STANFORD) Reference RangesNormal: <5.7%Prediabetes: 5.7 - 6.4%Diabetes: > 6.5% Lab Interpretation (test code = 60803-1) Abnormal [facility] LIPID PANEL (19738)(TOTAL CHOLESTEROL, TRIGLYCERIDES, HDL)2022-05-05 19:53:18* Test Item Value Reference Range Interpretation Comme nts CHOL (test code = 9630112375) 112 mg/dL 120-200 L HDL (test code = 2988638574) 47 mg/dL See_Comment [Automated [employer]] The system which generated this result transmitted reference range: >=40. The reference range was not used to interpret this result as normal/abnormal. HDLC RATIO (test code = 4123616668) See_Comment [Automated messa Big Contacts] The system which generated this result transmitted reference range: <=5.0. The reference range was not used to interpret this result as normal/abnormal. TRIG (test code = 3444424869) 123 mg/dL 30-170 LDL CHOL (test code = 55354-4) 40 mg/dL See_Comment [Automated messa ge] The system which generated this result transmitted reference range: <=160. The reference range was not used to interpret this result as normal/abnormal. VLDL (test code = 0930859508) 25 mg/dL 5-60 Lab Interpretation (test code = 68954-3) Abnormal [facility] HospitalTroponin I - Code Lsskci6100-68-14 15:00:04* Test Item Value Reference Range Interpretation Comments TROPONIN I (test code = 9305343818) 0.002 ng/mL See_Comment [Automated message] The system [...] of biotin. Lab Interpretation (test code = 86203-5) Normal [facility] HospitalBasi Metabolic Panel (NA, K, CL, CO2, Glucose, BUN, Creatinine, CA) - Code [id number] 14:48:26* Test Item Value Reference Range Interpretation Comme nts NA (test code = 7778917625) 141 mmol/L 135-145 K (test code = 5360889653) 3.6 mmol/L 3.5-5 Slight hemolysis CL (test code = 7385789886) 98 mmol/L 98-108 CO2 TOTAL (test code = 4522257619) 32 mmol/L 23-31 H AGAP (test code = 8994814561) 2-16 BUN (test code = 2626138735) 10 mg/dL 7-23 Slight hemolysis GLUCOSE (test code = 8077822894) 136 mg/dL 70-110 H CREATININE (test code = 8056293296) 0.63 mg/dL 0.6-1.25 CALCIUM (test code = 7535458721) 9.1 mg/dL 8.6-10.6 eGFR (test code = 5156218438) mL/min/1.73m2 [place] (test code = STANFORD) Association [...] imaging tests). Lab Interpretation (test code = 15756-7) Abnormal [facility] HospitalProthrombin Time / INR - Code Idngws2487-50-11 14:47:05* Test Item Value Reference Range Interpretation Comme nts KRISTAIME PATIENT (test code = 5964-2) See_Comment [Automated Opendisc] The system which generated this result transmitted reference range: 10.1 - 12.6 Seconds. The reference range was not used to interpret this result as normal/abnormal. INR (test code = 6301-6) Normal INR <1.1; Warfarin Therapeutic range 2.0 to 3.0 or 2.5 to 3.5, depending upon the indications. Lab Interpretation (test code = 97020-1) Normal [facility] HospitalaPTT - Code Hisgvz1738-11-03 14:47:05* Test Item Value Reference Range Interpretation Comme nts APTT Patient (test code = 3173-2) See_Comment [Automated messa ge] The system which generated this result transmitted reference range: 26 - 36 Seconds. The reference range was not used to interpret this result as normal/abnormal. Lab Interpretation (test code = 94532-4) Normal [facility] HospitalCB without Diff - Code Gccicr8767-12-94 14:39:43* Test Item Value Reference Range Interpretation Comme nts WBC (test code = 6690-2) See_Comment H [...] result as normal/abnormal. MPV (test code = 45937-8) 9.8 fL 9.8-13 RDW-CV (test code = 788-0) 15.3 % 12.1-15.4 RDW-SD (test code = 61423-6) 46.8 fL 38.5-51.6 NRBC x10^3 (test code = 0905769832) See_Comment [Automated [employer] ge] The system which generated this result transmitted reference range: 10*3/?L. The reference range was not used to interpret this result as normal/abnormal. NRBC/100 WBC (test code = 2152630726) See_Comment [Automated messa ge] The system which generated this result transmitted reference range: 0.0 - 10.0 /100 WBCs. The reference range was not used to interpret this result as normal/abnormal. IPF % (test code = 7448325787) Lab Interpretation (test code = 39994-3) Abnormal [facility] HospitalANTICARDIOLIPIN VSABHDRQSL6926-92-07 02:21:10 * Test Item Value Reference Range Interpretation Comments Anticardiolipin Antibody IgG (test code = 6439013013) See_Comment [Automated message] The system which generated this result transmitted reference range: 0.0 - 10.0 GPL. The reference range was not used to interpret this result as normal/abnormal . Anticardiolipin Antibody IgM (test code = 8833428842) See_Comment [Automated message] The system which generated this result transmitted reference range: 0.0 - 10.0 MPL. The reference range was not used to interpret this result as normal/abnormal . Anticardiolipin Antibody IgA (test code = 7771253343) See_Comment [Automated message] The system which generated [...] 4: 2210-4 Lab Interpretation (test code = 79146-2) Normal [facility] METABOLIC PANEL (NA, K, CL, CO2, GLUCOSE, BUN, CREATININE, CA)2022-04-03 14:15:35* Test Item Value Reference Range Interpretation Comme nts NA (test code = 4814942032) 135 mmol/L 135-145 K (test code = 5039873918) 3.2 mmol/L 3.5-5 L CL (test code = 1447775643) 104 mmol/L 98-108 CO2 TOTAL (test code = 2746397593) 23 mmol/L 23-31 AGAP (test code = 2016847508) 2-16 BUN (test code = 0868851006) 17 mg/dL 7-23 GLUCOSE (test code = 1522669814) 101 mg/dL 70-110 CREATININE (test code = 3949780919) 0.79 mg/dL 0.6-1.25 CALCIUM (test code = 7175089613) 8.4 mg/dL 8.6-10.6 L eGFR (test code = 5459256343) mL/min/1.73m2 [place] (test code = STANFORD) Association [...] imaging tests). Lab Interpretation (test code = 20763-9) [facility]normal [facility]MAG[facility]IUM2022-09-10 14:15:35* Test Item Value Reference Range Interpretation Comme nts MAGNESIUM (test code = 8289557951) 1.9 mg/dL 1.7-2.4 Lab Interpretation (test cod e = 82169-3) Normal [facility] WITH [id number] 09:34:09* Test Item Value Reference Range Interpretation Comme nts WBC (test code = 6690-2) See_Comment [Automated [employer]] The system which generated this result transmitted reference range: 4.20 - 10.70 10*3/?L. The reference range was not used to interpret this result as normal/abnormal. RBC (test code = 789-8) See_Comment L [Automated [employer]] The system which generated this result transmitted [...] 32.9 g/dL 31.2-35 RDW-SD (test code = 75515-9) 45.3 fL 38.5-51.6 RDW-CV (test code = 788-0) 14.9 % 12.1-15.4 PLT (test code = 777-3) See_Comment [Automated messa ge] The system which generated this result transmitted reference range: 150 - 328 10*3/?L. The reference range was not used to interpret this result as normal/abnormal. MPV (test code = 16824-5) 9.9 fL 9.8-13 NRBC/100 WBC (test code = 3279859651) See_Comment [Automated [employer] ssage] The system which generated this result transmitted reference range: 0.0 - 10.0 /100 WBCs. The reference range was not used to interpret this result as normal/abnormal. NRBC x10^3 (test code = 2271794487) See_Comment [Automated Ethonov[employer] ge] The system which generated this result transmitted reference range: 10*3/?L. The reference range was not used to interpret this result as normal/abnormal. GRAN MAT (NEUT) % (test code = 770-8) 52.9 % IMM GRAN % (test code = 6211952085) 0.20 % LYMPH % (test code = 736-9) 33.3 % MONO % (test code = 5905-5) 11.7 % EOS % (test code = 713-8) 1.5 % BASO % (test code = 706-2) 0.4 % GRAN MAT x10^3(ANC) (test code = 3986271743) 2.48 10*3/uL 1.99-6.95 IMM GRAN x10^3 (test code = 3726023022) 0-0.06 LYMPH x10^3 (test code = 731-0) 1.56 10*3/uL 1.09-3.23 MONO x10^3 (test code = 742-7) 0.55 10*3/uL 0.36-1.02 EOS x10^3 (test code = 711-2) 0.07 10*3/uL 0.06-0.53 BASO x10^3 (test code = 704-7) 0.01-0.09 Lab Interpretation (test code = 91521-2) [facility]normal [facility] I [id number] 00:14:46* Test Item Value Reference Range Interpretation Comments Anti-B2 Glycoprotein 1 IgG (test code = 1746327285) See_Comment [Automated message] The system which generated this result transmitted reference range: 0.0 - 20.0 SGU. The reference range was not used to interpret this result as normal/abnormal. Anti-B2 Glycoprotein 1 IgM (test code = 3101352456) See_Comment [Automated message] The system which generated this result transmitted reference range: 0.0 - 20.0 SMU. The reference range was not used to interpret this result as normal/abnormal. Anti-B2 Glycoprotein 1 IgA (test code = 2194346301) See_Comment [Automated message] The system which generated [...] losses and/or thrombocytopenia. TEST PERFORMED AT:[facility] [address] [place] [id number] Lab Interpretation (test code = 14810-3) Normal [facility]NUCLEAR ANTIBODY-PATHOLOGIST [id number] 19:07:26ANA - Pathologist InterpretationANA HEp-2 IIFA Pathologist [...] purpura, thyroid disease, discoid lupus, or fibromyalgia. (https://pubmed.ncbi.nlm.nih.gov/69962515/, https://pubmed.ncbi.nlm.nih.gov/93556053/) ? ? Therefore, a diagnosis cannot be based exclusively on DUARTE detection and/or pattern and thus should be made via the integration of patient history, physical exam findings, and other diagnostic tests as clinically indicated. Karuna Anderson MD ?04/02/2022 ?2:07 PM04/02/2022 2:07 PM CDTUT LABORAT[facility] SERVICESMem[facility] HospitalAnti- Nuclear Anitbody (DUARTE) [id number] 19:07:06* Test Item Value Reference Range Interpretation Comme nts DUARTE (test code = 8045150380) Negative Negative STANFORD (test code = STANFORD) Negative: ?No Anti-Nuclear Antibodies detected by IFA. Positive: ?DUARTE IFA screen performed with a 1:80 dilution in adults and a 1:40 dilution in pediatrics. ?A titer is performed and reported separately when the DUARTE is "Positive" or when "Cytoplasmic staining is observed." Lab Interpretation (test code = 80789-8) Normal [facility] HospitalNmcvgwGHYE-[id number] 17:19:09* Test Item Value Reference Range Interpretation Comme nts Anti-Ribonucleoprotein (test code = 4412816658) Negative Negative STANFORD (test code = STANFORD) Positive - Antibod y detected.Negative - No antibody detected. Lab Interpretation (test code = 42686-6) Normal [facility]CANALES(SM)2022-04-01 17:19:09* Test Item Value Reference Range Interpretation Comme nts Anti-Canales (test code = 2237132948) Negative Negative STANFORD (test code = STANFORD) Positive - Antibod y detected.Negative - No antibody detected. Lab Interpretation (test code = 48153-6) [facility] 17:19:09* Test Item Value Reference Range Interpretation Comme nts ANTI-SSA(RO) (test code = 1495881493) Negative Negative STANFORD (test code = STANFORD) Positive - Antibod y detected.Negative - No antibody detected. Lab Interpretation (test code = 51457-2) [facility]22-[facility] 17:19:09* Test Item Value Reference Range Interpretation Comme nts Anti-SSB(LA) (test code = 0725844261) Negative Negative STANFORD (test code = STANFORD) Positive - Antibod y detected.Negative - No antibody detected. Lab Interpretation (test code = 85251-9) Normal [facility] HospitalIMMUNOGLOBULIN G A M [id number] 17:18:48 * Test Item Value Reference Range Interpretation Comme nts IgA (test code = 3217108535) 141 mg/dL 70-312 IgG (test code = 1888032630) 920 mg/dL 636-1600 IgM (test code = 2273089836) 56 mg/dL 56-352 Lab Interpretation (test cod e = 68786-1) Normal [facility] MET[facility]OLIC PANEL (NA, K, CL, CO2, GLUCOSE, BUN, CREATININE, CA)2022-04-01 11:26:53* Test Item Value Reference Range Interpretation Comme nts NA (test code = 8779234243) 141 mmol/L 135-145 K (test code = 1708443258) 3.9 mmol/L 3.5-5 CL (test code = 9574168582) 103 mmol/L 98-108 CO2 TOTAL (test code = 8721541786) 34 mmol/L 23-31 H AGAP (test code = 9160907759) 2-16 BUN (test code = 5089870496) 9 mg/dL 7-23 GLUCOSE (test code = 2104071812) 129 mg/dL 70-110 H CREATININE (test code = 3497198616) 0.73 mg/dL 0.6-1.25 CALCIUM (test code = 7171748913) 9.1 mg/dL 8.6-10.6 eGFR (test code = 8656265429) mL/min/1.73m2 STANFORD (test code = STANFORD) Association [...] imaging tests). Lab Interpretation (test code = 94457-5) Abnormal [facility] with [id number] 18:20:26* Test Item Value Reference Range Interpretation Comme nts WBC (test code = 6690-2) See_Comment [Automated Opendisc] The system which generated this result transmitted reference range: 4.20 - 10.70 10*3/?L. The reference range was not used to interpret this result as normal/abnormal. RBC (test code = 789-8) See_Comment [Automated Ethonovaa ge] The system which generated this result [...] 32.6 g/dL 31.2-35 RDW-SD (test code = 46380-2) 45.7 fL 38.5-51.6 RDW-CV (test code = 788-0) 14.9 % 12.1-15.4 PLT (test code = 777-3) See_Comment [Automated Ethonovaa ge] The system which generated this result transmitted reference range: 150 - 328 10*3/?L. The reference range was not used to interpret this result as normal/abnormal. MPV (test code = 22350-1) 9.6 fL 9.8-13 L NRBC/100 WBC (test code = 2505427755) See_Comment [Automated [employer] ssage] The system which generated this result transmitted reference range: 0.0 - 10.0 /100 WBCs. The reference range was not used to interpret this result as normal/abnormal. NRBC x10^3 (test code = 7550359973) See_Comment [Automated Ethonovaa ge] The system which generated this result transmitted reference range: 10*3/?L. The reference range was not used to interpret this result as normal/abnormal. GRAN MAT (NEUT) % (test code = 770-8) 83.6 % IMM GRAN % (test code = 3422674894) 0.40 % LYMPH % (test code = 736-9) 10.6 % MONO % (test code = 5905-5) 4.9 % EOS % (test code = 713-8) 0.1 % BASO % (test code = 706-2) 0.4 % GRAN MAT x10^3(ANC) (test code = 1332462545) 8.56 10*3/uL 1.99-6.95 H IMM GRAN x10^3 (test code = 3597233265) 0.04 10*3/uL 0-0.06 LYMPH x10^3 (test code = 731-0) 1.08 10*3/uL 1.09-3.23 L MONO x10^3 (test code = 742-7) 0.50 10*3/uL 0.36-1.02 EOS x10^3 (test code = 711-2) 0.06-0.53 L BASO x10^3 (test code = 704-7) 0.04 10*3/uL 0.01-0.09 Lab Interpretation (test code = 06515-2) Abnormal [facility]HEMOGLOBIN A1C* Test Item Value Reference Range Interpretation Comme nts A1C (test code = 4548-4) 6.0 Consult Notes Date/Time Note Provider Source 2024-06-13 14:50:44 Associated Order(s): CONSULT RHEUMATOLOGY Rheumatology Consult Note Patient: Mike Francis III 06/13/2024 Chief Complaint/Reason for Visit: [facility] (Internal) consultation visit, requested by Dr. Armijo, for evaluation for HEALTH POLICY ANALYST vasculitis HPI: Mike Francis III is a 49 year old Black or male with past medical history listed below, presenting today, as mentioned above. 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 His disease course has been complicated by severe neurologic involvement including recurrent strokes and seizures. He is s/p Rituximab q6 months for maintenance therapy (last dose 06/05/24) and was previously on MMF but this was stopped 2/2 leukopenia. Patient with worsening neurological symptoms, most recently difficulty walking and worsening vision changes, requiring increased amounts of high dose oral steroids. However, despite this intervention, his reports continued progressive decline in mental status. Patient reports previously being on IVIG during prior hospitalization which did provide some relief. Today, the patient denies any rashes, difficulty breathing, cough, sinusitis, hematuria, or any other complaints. REVIEW OF SYSTEMS 14 point ROS negative except as mentioned per HPI HISTORY Past Medical History: Diagnosis Date Allergic rhinitis December 2021 Anxiety September 2020 CAD (coronary artery disease) Depression September 2020 Glaucoma December 2023 HLD (hyperlipidemia) HTN (hypertension) Pre-diabetes Seizures September 2020 Stroke April 2022 T2DM (type 2 diabetes mellitus) Past Surgical History: Procedure Laterality Date CRANIOTOMY BIOPSY BRAIN (SHX) Right 02/12/2022 Surgeon: Preethi Torres MD; Location: [facility] MASS EXCISION Left 02/03/2024 Surgeon: Carine Bush MD; Location: [facility] ORBITOTOMY Left 02/03/2024 Surgeon: Carine Bush MD; Location: [facility] Family History Problem Relation Age of Onset Coronary Heart Disease Other Grandmother Stroke Father 60s Arthritis Mother Cancer Father Diabetes Maternal Grandmother Social History Socioeconomic History Marital status: Occupational History 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 Tobacco Use Smoking status: Former Current packs/day: 0.00 Average packs/day: 2.0 packs/day for 15.0 years (30.0 ttl pk-yrs) Types: Cigarettes Quit date: 03/25/2022 Years since quittin.2 Passive exposure: Never Smokeless tobacco: Former Quit date: 09/22/2020 Tobacco comments: Vape low dose nicotene Substance and Sexual Activity Alcohol use: No Drug use: No Sexual activity: Not Currently Partners: Female Comment: Health issues....seizures Social Determinants of Health Financial Resource Strain: Low Risk (01/23/2024) Overall Financial Resource Strain (CARDIA) Difficulty of Paying Living Expenses: Not hard at all Food Insecurity: No Food Insecurity (06/12/2024) NCSS - Food Insecurity Worried About Running Out of Food in the Last Year: No Ran Out of Food in the Last Year: No Transportation Needs: No Transportation Needs (06/12/2024) NCSS - Transportation Lack of Transportation: No Physical Activity: Inactive (01/23/2024) Exercise Vital Sign Days of Exercise per Week: 0 days Minutes of Exercise per Session: 0 min Social Connections: Unknown (01/23/2024) Social Connection and Isolation Panel [NHANES] Frequency of Communication with Friends and Family: Never Marital Status: Housing Stability: Not At Risk (06/12/2024) NCSS - Housing/Utilities Has Housing: Yes Worried About Losing Housing: No Unable to Get Utilities: No Allergies Allergen Reactions Shellfish Derived Anaphylaxis Keppra [Levetiracetam] Hallucinations No current facility-administered medications on file prior to encounter. Current Outpatient Medications on File Prior to Encounter Medication Sig Dispense Refill cenobamate 150 mg Tab Take 150 mg by mouth in the morning. 30 tablet 0 cenobamate 200 mg Tab Take 200 mg by mouth in the morning. 30 tablet 5 divalproex ER 500 mg 24 hr tablet Take 4 tablets by mouth every 12 (twelve) hours. 120 tablet 5 Lacosamide 200 mg tablet Take 1 tablet by mouth in the morning and 1 tablet in the evening. 60 tablet 5 amLODIPine 10 mg tablet Take 1 tablet by mouth in the morning. 30 tablet 11 atorvastatin 20 mg tablet Take 1 tablet by mouth at bedtime. 30 tablet 11 insulin lispro (HUMALOG KWIKPEN INSULIN) 100 unit/mL pen injector INJECT UNDER THE SKIN EVERY EIGHT HOURS PER SLIDING SCALE (151-200 TWO UNITS, 201-250 4U, 251-300 6U, 301-350 8U, 351-100 10U) 30 mL 2 metFORMIN 1,000 mg tablet Take 1 tablet by mouth in the morning and 1 tablet in the evening. Take with meals. 60 tablet 11 donepeziL (ARICEPT) 5 mg tablet Take 1 tablet by mouth at bedtime. 60 tablet 3 predniSONE 50 mg tablet Take 0.5 tablets by mouth in the morning. (Patient taking differently: Take 0.5 tablets by mouth in the morning. Indications: Has tapered down to 25 mg daily) 90 tablet 0 Blood-Glucose Sensor (DEXCOM G7 SENSOR) Sari 1 Each by subcutaneous (via wearable injector) route every 10 (ten) days. Use as directed 4 Each 4 Blood-Glucose Meter,Continuous (DEXCOM G7 AUTOTRANSFUSIONIST) [facility] directed 1 Each 0 dapagliflozin propanediol (FARXIGA) 10 mg tablet Take 1 tablet by mouth in the morning. 90 tablet 3 insulin glargine U-300 conc (TOUJEO MAX U-300 SOLOSTAR) 300 unit/mL (3 mL) InPn inject 16 Units under the skin at bedtime. take half dose if NPO or if blood glucose 80 - 120 mg/dL, hold if less than 80 9 mL 1 Insulin [place], Disposable, (ULTICARE PEN NEEDLE) 31 gauge x 3/16" Ndle Use as directed 100 Each 3 carvediloL 12.5 mg tablet Take 3 tablets by mouth in the morning and 3 tablets in the evening. Take with meals. 30 tablet 6 midazolam (NAYZILAM) 5 mg/spray (0.1 mL) [place] Use 1 Newton in each nostril every 6 (six) hours as needed (seizure). 10 Each 3 aspirin 81 mg chewable tablet Take 1 tablet by mouth in the morning. 30 tablet 6 cetirizine 10 mg tablet Take 1 tablet by mouth in the morning. 30 tablet 0 prednisoLONE acetate 1 % ophthalmic suspension drops Place 1 Drop in left eye every 2 (two) hours. 5 mL 6 hydrALAZINE 25 mg tablet Take 1 tablet by mouth every 6 (six) hours. 30 tablet 0 lisinopriL 40 mg tablet Take 1 tablet by mouth in the morning. 30 tablet 11 fluticasone propionate (FLONASE ALLERGY RELIEF) 50 mcg/actuation nasal spray Use 1 Newton in each nostril in the morning and 1 [place] in the evening. 16 g 0 ferrous sulfate 325 mg (65 mg iron) tablet Take 1 tablet by mouth every other day. 15 tablet 0 hydrOXYzine 10 mg tablet Take 1 tablet by mouth every 6 (six) hours as needed for Itching. 90 tablet 2 pantoprazole 40 mg EC tablet Take 1 tablet by mouth in the morning. 30 tablet 5 risperiDONE 1 mg tablet Take 1 tablet by mouth in the morning and 1 tablet in the evening. 60 tablet 5 POTASSIUM-99 ORAL Take 99 mg by mouth daily. MULTIVITS-MINERALS/FA/LYCOPEN E (ONE-A-DAY MEN'S MULTIVITAMIN ORAL) Take by mouth. mwylg-5l-fcd-epa-fish oil-D3 (FISH OIL-VIT D3) 360 mg-1,200 mg -1,000 unit Cap Take by mouth. PHYSICAL EXAM BP 136/80 | Pulse 65 | Temp 36.7 ?C (98 ?F) | Resp 18 | Ht 1.956 m (6' 5") | Wt 117.9 kg (260 lb) | SpO2 100% | BMI 30.83 kg/m? General: Alert, Oriented to name, place and time, No apparent distress; appears mildly somnolent Eyes: Sclera non injected, anicteric Ears, Nose, Throat, Mouth:no oral or nasal ulcers or erythema;no parotid enlargement Skin: No rashes noted Cardiovascular: Regular S1, S2; normal rate and rhythm Respiratory: clear to ausculation bilaterally, no wheezes or crackles Neuro: Normal proximal and distal muscle strength Musculoskeletal: Hands: No swelling, tenderness, warmth, erythema, present at the PIPs, DIPs, MCPs. Wrists: No swelling, tenderness, warmth, erythema. Elbows: No swelling, tenderness, warmth, erythema. No nodules. Shoulders: No swelling, tenderness. Feet: No swelling, tenderness; bilateral MTP squeeze negative. Ankles: No swelling, tenderness, warmth, erythema. Knees: No swelling, tenderness, warmth, erythema. Tender points: Normal. ASSESSMENT Worsening vision changes PACNS (bx-proven, s/p Rituximab, 06/05/24) Hx of recurrent CVA 2/2 above Hx of seizure disorder 2/2 above Long-term steroid use Comment: Patient presents with worsening vision changes and progressive mental decline in setting of biopsy-proven PACNS. Patient is s/p Rituximab q6 months (most recently 06/05/24), and previously on MMF but stopped 2/2 leukopenia. Patient has required high doses of long-term steroids, raising concern that the Rituximab he is on is not controlling his disease process adequately. No evidence of systemic vasculitis at this time. Recommend discussing treatment alternatives with Neuroimmunology to get a better grasp on his condition and avoid further high doses of steroids. Patient has previously responded to IVIG so this may be an option to hold the patient over until terminal makeup operator treatment in the form of MTX vs other is initiated. Alternative option may be to reduce interval between Rituximab doses if patient feels like their is improvement in symptoms for a temporary amount of time following Rituximab dose. Labs reviewed: 06/13/24 CBC Lymph 0.61 CMP normal ESR CRP normal UA no protein blood or RBCs CT Head negative CTA Head/Neck negative MRI Brain/Orbit No acute intracranial abnormality. 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 Chronic left occipital lobe infarct. There is thickening and enhancement of the bilateral optic sheath, right more than left suggestive of perineuritis. Diffusion restriction of the right optic nerve with associated abnormal FLAIR hyperintense signal concerning for acute ischemia. No abnormal enhancement identified. Volume loss of left optic nerve with abnormal T2/FLAIR hyperintense signal may represents chronic optic neuropathy changes. PLAN: - s/p Rituximab q6 months (most recently 06/05/24) - on IV high dose steroids - Ophthalmology following - discuss with Neuroimmunology regarding long-term treatment alternatives; consider methotrexate vs IVIG vs decreasing Rituximab to [id number] vs other in order to avoid further long-term steroid use - no evidence of systemic vasculitis; management of HEALTH POLICY ANALYST vasculitis by neurology Patient seen with faculty, Dr. Castle Thank you for this interesting consult. Please let us know if you have any questions or concerns. Franklin Barron DO Rheumatology Fellow, PGY-5 OSOFT DEVELOPER Associated attestation - Desi Castle MD - 06/14/2024 11:13 AM MICROSOFT DEVELOPER Pt seen on 06/13/[address] Franklin Barron , I examined this patient with Dr. Franklin Barron . I agree with resident's note as written. Case co ordination between neurology, neuro-ophthalmology, neuro-immunology to determine how much of current symptoms are from long standing damage, versus active disease.... If from active disease, then whether changing the rituximab maintenance frequency to every 4 months, versus adding another agent such as methotrexate, verses switching to another biologic, also whether adding IVIG in house and then as bridging would make a difference for this case Doesn't seem to be DADA2, which would contribute to recurrent strokes, typically associated with cutaneous vasculitis features such as levido reticularis Have discussed directly with primary time neurology and pt and his Time taken 82 mins The time spent for patient care includes: PreCharting (eg, review of tests, notes, etc.), Performing a medically appropriate examination and/or evaluation, Counseling and educating the patient/family/caregiver, Documenting clinical information in the electronic or other health record, and Care coordination (not separately reported). DESI CASTLE MD Rheumatology RHEUMATOLOGY [facility] 2024-06-13 09:56:00 Associated Order(s): CONSULT ADULT OCCUPATIONAL THERAPY OT GENERAL EVALUATION Consult received via [employer], EMR reviewed and evaluation completed 06/13/24. Patient referred to occupational therapy for evaluation and treatment secondary to eye pain. Seen in conjunction with Mitzy Nice PT secondary to anticipated limited activity tolerance. Billing for OT portion only. Patient agreeable to participate in occupational therapy. Discharge Recommendations: Therapy Needs and Potential: - Patient would benefit from continued skilled occupational therapy services to address: Decline in basic activities of daily living, Decline in instrumental activities of daily living, Decline in cognition, Decreased endurance, and low vision - Patient demonstrates good potential to improve and meet therapy goals with further skilled occupational therapy services. - Patient appears motivated to improve their BADLS and IADLs and return to their previous level of function. - Patient demonstrates ability to tolerate at least 30-60 minutes of active participation in occupational therapy. - Patient able to follow commands: 1-step Yes, Multi-step Yes, Inconsistencies No - Patient would benefit from continued out-patient occupational therapy services to address low vision deficits and increase independence in ADLs and functional mobility Challenges to Home Transition: - Requires physical assistance for IADLS - Requires supervision or verbal cues for BADLS - Decreased safety awareness/judgement - Increased risk of falls Equipment Recommendations: None PLAN OF CARE: Discharge from OT services; patient at functional baseline for ADLs Precautions: Weight bearing status: NA General: Fall and medical telemetry and low vision Bracing: N/A Subjective: "Can I wash my face?" Current Occupational Performance and/or Treatment: AM-PAC 6 Clicks (Raw Score 0=Dependent, 24=Independent; Low function Raw Score 0= Dependent, 32=Independent): Raw Score - Daily Activity: 19 T-Scale Score - Daily Activity: 40.22 Grooming: Supervision, to wipe face with damp washcloth. Patient asking permission from prior to performing grooming task at bed level LB Dressing: Supervision, to doff/don slip-on shoes seated EOB. Simulated Toilet Transfer: see functional mobility below Functional Mobility: Recline to sit: Supervision, Sit to stand: Supervision, with RW Out of room ambulation with RW and cues for fall prevention secondary to atypical gait pattern. Patient returns to EOB. Patient/caregiver educated on: Adaptive equipment , ADL training, Compensatory techniques/adaptive strategies, Fall prevention, Positioning, Role of OT, Safety awareness, and importance of participation in ADLs relative to individual functionality (e.g., grooming, dressing, bathing, toileting, feeding, and functional mobility, etc.) and participation in simple UE ROM/strengthening regimen for increased/continued functional participation in ADLs and deconditioning prevention Patient left semireclining in bed with call avila in reach. Spouse present. Please, see full evaluation below for more detail. OT EVALUATION: 49 year old male Admit date: 06/12/2024 Date of onset: ~1 weeks Admit Diagnosis: Eye pain, right [H57.11] OT Diagnosis: Impaired BADL independence, Impaired IADL independence, Decreased endurance, and Impaired self-care mobility PMH: Past Medical History: Diagnosis Date Allergic rhinitis December 2021 Anxiety September 2020 CAD (coronary artery disease) Depression September 2020 Glaucoma December 2023 HLD (hyperlipidemia) HTN (hypertension) Pre-diabetes Seizures September 2020 Stroke April 2022 T2DM (type 2 diabetes mellitus) PSH: Past Surgical History: Procedure Laterality Date CRANIOTOMY BIOPSY BRAIN (SHX) Right 02/12/2022 Surgeon: Preethi Torres MD; Location: [facility] MASS EXCISION Left 02/03/2024 Surgeon: Carine Bush MD; Location: [facility] ORBITOTOMY Left 02/03/2024 Surgeon: Carine Bush MD; Location: [facility] PAIN: Denies pain before and after session. OCCUPATIONAL ROLES/HOME ENVIRONMENT: Home environment: Lives with spouse and Mobile Home/Trailer. Bathroom access: Yes Bathroom setup: Shower Occupation(s): Disabled Function prior to admission: Household ambulation and community ambulation with RW Spouse pushes patient in wheelchair in needed Supervision for BADLs by spouse Suspected ischemic or hemorraghic stroke patient: No Equipment prior to admission: shower chair, grab bars, rolling walker, wheelchair PERFORMANCE SKILLS/FACTORS: UE Muscle Tone: bilateral WNL UE ROM: bilateral AROM WFL UE Strength: SEAN UE 5/5 Hand dominance: right Dexterity/Coordination: bilateral Intact Endurance - Sitting: Good Standing: Fair+ Sitting Balance - Static: Good Dynamic: Good Standing: Balance - Static Fair+ Dynamic: Fair+ Dizziness: No Skin Integrity: No breakdown noted Sensation: Patient denies numbness and tingling. Oral Motor: WFL Communication: Able to verbalize needs Yes Other: N/A Vision: No Other: Patient with low vision and receiving OT services for low vision Hearing: good; no issues reported COGNITION: Orientation: person, place, date/time, and situation Follows Commands: 1-step Yes Multi-step Yes Inconsistencies No Safety Awareness/Judgment: Fair PROBLEM LIST: Decreased independence with ADL, Decreased strength/endurance for functional activity, and Sensory deficits REHAB POTENTIAL/PROGNOSIS: NA as no further therapy needs PATIENT/FAMILY GOALS: To figure out what is going on. TREATMENT/INTERVENTION PLAN: Discharge from OT PATIENT-FAMILY TEACHING Patient provided with preferred teaching of verbal information on Adaptive equipment , ADL training, Compensatory techniques/adaptive strategies, Fall prevention, Positioning, Role of OT, Safety awareness, and importance of participation in ADLs relative to individual functionality (e.g., grooming, dressing, bathing, toileting, feeding, and functional mobility, etc.) and participation in simple UE ROM/strengthening regimen for increased/continued functional participation in ADLs and deconditioning prevention. Shows readiness to learn. Verbal instruction teaching provided. Individual is able to read and verbalizes understanding of teaching provided and accurately returns demonstration of skill. Shahrzad Yancey, CHAPARROR, OTD Pager: [phone] Total Timed Treatment Codes: 10 Min Total Treatment Time: 31 Min Patient Complexity Level Moderate - An occupational therapy [...] to enable patient to complete evaluation component. [facility] 2024-06-13 09:55:00 Associated Order(s): CONSULT ADULT PHYSICAL THERAPY Patient cleared with nursing and agreeable to working with physical therapy. Patient met semi reclined in bed and spouse at bedside . Recommend nursing staff utilize rolling walker and min assist to safely assist patient with mobility out of the bed or chair. PHYSICAL THERAPY EVALUATION Consult received, chart reviewed and evaluation complete this date. Patient is referred to PT for evaluation and treatment. Patient is a 49 year old male who presents to hospital for Eye pain, right [H57.11] HEALTH POLICY ANALYST Vasculitis flare and seizure dso. Discharge Recommendations: Therapy Needs and Potential: Patient would benefit from continued physical therapy services to address: decline in bed mobility decline in transfers decline in gait and/or balance decreased strength decreased endurance Patient demonstrates good potential to improve and meet therapy goals with further physical therapy services. Patient appears motivated to improve their functional mobility and return to their previous level of function. Patient demonstrates ability to tolerate atleast 30-60 minutes of physical therapy with active participation. Patient will benefit from post acute rehab: Out Patient PT vs Home Health Challenges to Home Transition: increased risk of falls decreased safety awareness Equipment recommendations: Patient has or access to necessary equipment Current Functional Status and/or Treatment: AM-PAC 6 Clicks (Raw Score 0=Dependent, 24=Independent; Low function Raw Score 0= Dependent, 32=Independent): Raw Score - Basic Mobility : 17 T-Scale Score - Basic Mobility : 39.67 Tolerated session fair. Responded well to frequent verbal instructions and tapping to improve gait. As per spouse, about 8 days ago, patient was ambulatory without AD. Bed Mobility: Rolling: Supervision Supine-sit: Supervision Sit to supine: Supervision Scooting to edge of bed: Supervision Cues for safety hand placement and postural feedback Dizziness No Transfers: Sit to stand: Close supervision to intermittent CGA x 1 using Rolling Walker Step transfer: Close supervision to intermittent CGA x 1 using Rolling Walker Stand to sit: Close supervision to intermittent CGA x 1 using Rolling Walker Standing balance / tolerance with Close supervision to intermittent CGA x 1 using Rolling Walker for ~ 3 mins Verbal cueing provided for correct hand placement, facilitate forward trunk flexion during seat off and correct use of RW for sit-stand for safety and balance During stand to sit, cues provided to reach back for sitting surface before sitting down for safety Cues to control descent Dizziness No Ambulation: Assisted patient with ambulation as follows: 250 feet using personal RW and Supervision. Patient presenting with Step-through and intermittent shuffling, toes first / drags gait pattern. Noted to be unsteady but responds well with cues for correction and foot clearance Provided varying grade assistance to increase patient control, assist to promote even steps, clear foot during swing phase and verbal / tactile cues to improve posture, stay within the RW and sequencing. Dizziness No Therapeutic exercise: Patient educated in ROM ex, Postural / positional Awareness, Compensatory techniques/adaptive strategies, Energy conservation, and Fall prevention, instructed patient a home exercise program and which she performed the following: AROM ex of bilateral LE while seated EOB A-P 5 reps and recommend to continue with it t/o the day or as tolerated with rest breaks. cues provided to complete the motion, self pacing so as to promote proper quality of motion as well as target specific muscle groups for increased strength and reach full pain free ROM Functional Outcome Measures: (Values within the past 12 hours) Tinetti Gait Score- # / 12 Initiation of gait: No hesitancy Step length: Only on foot passes the other Foot clearance: Only one foot clears the floor during swing phase Step Symmetry: Step lengths not equal Step continuity: Steps appear continuous Path: Mild/moderate deviation or uses AD Trunk: Marked sway or uses AD Walking: Heels apart Tinetti Gait Score: 5 Tinetti Gait Score Interpretation: < 7 - Increased risk for falls TINETTI BALANCE SCORE- # / 16 Sitting balance: Steady, safe Arises: Able, uses arms to help Attempts to Rise: Able to rise, 1 attempt Immediate standing balance (first 5 sec): Steady but uses walker or other support Standing Balance: Steady but CHARI > 4 inches or uses AD/other support Nudged 3 times *: Begins to fall Eyes closed*: Unsteady Turning 360 degrees: Either discontinuous or unsteady Sitting down: Uses arms or motion not smooth Tinetti Balance Score: 8 Tinetti Balance Interpretation: < 9 - Increased risk for falls After session, patient semi reclined in bed. Call button provided. All needs met, RN aware, family present. PLAN OF CARE: While in the hospital, PT will follow patient at least 2 times per week,once or twice a day, per patient's tolerance and needs. See below for complete details. Admit Date: 06/12/2024 Hospital Diagnosis:Eye pain, right [H57.11] HEALTH POLICY ANALYST Vasculitis flare and seizure dso. PT Diagnosis: Difficulty walking and Abnormality of gait and balance Weight Bearing Precaution: NA General Precautions: General, Fall,IV Peripheral, oxygen: Room air Bracing/Cast present or required:N/A PMH: Past Medical History: Diagnosis Date Allergic rhinitis December 2021 Anxiety September 2020 CAD (coronary artery disease) Depression September 2020 Glaucoma December 2023 HLD (hyperlipidemia) HTN (hypertension) Pre-diabetes Seizures September 2020 Stroke April 2022 T2DM (type 2 diabetes mellitus) PSH: Past Surgical History: Procedure Laterality Date CRANIOTOMY BIOPSY BRAIN (SHX) Right 02/12/2022 Surgeon: Preethi Torres MD; Location: [facility] MASS EXCISION Left 02/03/2024 Surgeon: Carine Bush MD; Location: [facility] ORBITOTOMY Left 02/03/2024 Surgeon: Carine Bush MD; Location: [facility] PRIOR LIVING SITUATION: lives with their spouse, in a mobile home, and ramp access, DME: Rolling Walker, Wheel Chair Prior level of Mobility: community ambulation, ambulates with personal RW Suspected ischemic or hemorraghic stroke:No Subjective: "OK" for therapy Patient/Family Goals: Get better and go home Patient/Family verbalizes understanding of condition: Yes PAIN: denies pain before and after session COMMUNICATION Primary Language: Kuwaiti Able to Verbalize needs: Yes Vision:impaired Hearing:good; no issues reported ORIENTATION/COGNITION: Oriented to: person and place Awake: Yes Alert: Yes Dizzy: No Follows Commands: Yes 1-Step Yes Multi-Step Yes but can be inconsistent / easily distracted / confused Inconsistent: No NEUROLOGICAL Light Touch: within functional limits bilateral LE, Heel to mendez: WFL Tone: WFL BALANCE: Sitting: Static: Good Dynamic: Fair+ Standing: Static: Fair+ Dynamic: Fair+ RANGE OF MOTION: within functional limits bilateral LE, STRENGTH: 4/5 (Good), bilateral LE ENDURANCE: Fair, Room air SKIN INTEGRITY: defer to nursing PROBLEM LIST: Decline in gait, Decline in transfers, Decreased strength, Decreased endurance, Decreased balance, decline in wheel chair mobiliity, Safety awareness deficits, and Decreased Coordination ASSESSMENT: Patient is a 49 year old male seen secondary to the above listed diagnosis. Patient would benefit from continued PT to address the above listed deficits to maximize independence and safety with functional mobility. Rehabilitation Potential: fair Goals: The following goals are to maximize independence and safety with functional mobility to eventually return to prior living situation and prior functional status. Upon discharge, patient and/or family will demonstrate the followin. Sit to stand: Independent using no AD Stand to sit: Independent using no AD 2. Supervision with ambulation, Feet: 300 using rolling walker. Treatment Plan: Gait training, Therapeutic exercise, Transfer training, Balance training, Bed mobility training, Equipment needs assessment, Safety education, patient/caregiver education, Neuromuscular Re-Education, and Functional Motor Training PATIENT EDUCATION: Patient and Significant other provided with preferred teaching of verbal information and demonstration on role of PT, plan of care, HEP. Shows readiness to learn. Verbal instruction and Demonstration teaching provided. Individual verbalizes understanding of teaching provided and needs reinforcement of teaching. 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 Patient started walking uses a walker since a week now and earlier walked with using any aid. Patient has been following Neurology, rheumatology and ophthalmology outpatient. Patient also started experiencing L eye pain on Tuesday which does not radiate but happens more with eye movement. also noted some eye puffiness and discharge for the L eye which started around the same time. No weakness, or sensory changes noted. Patient and his denies any new seizure like activity and is very stable on the current medication. Of note, patient was started on mycophenolate in mar but was stopped by Rheumatology because of Leukopenia. PAST MEDICAL/ SURGICAL HISTORY has a past medical history of Allergic rhinitis (December 2021), Anxiety (September 2020), CAD (coronary artery disease), Depression (September 2020), Glaucoma (December 2023), HLD (hyperlipidemia), HTN (hypertension), Pre-diabetes, Seizures (September 2020), Stroke (April 2022), and T2DM (type 2 diabetes mellitus). He has no past medical history of ADHD (attention deficit hyperactivity disorder). has a past surgical history that includes craniotomy biopsy brain (shx) (Right, 02/12/2022); orbitotomy (Left, 02/03/2024); and mass excision (Left, 02/03/2024). FAMILY/ SOCIAL HISTORY family history includes Arthritis in his mother; Cancer in his father; Coronary Heart Disease in an other family member; Diabetes in his maternal grandmother; Stroke in his father. reports that he quit smoking about 2 years ago. His smoking use included cigarettes. He has a 30 pack-year smoking history. He has never been exposed to tobacco smoke. He quit smokeless tobacco use about 3 years ago. He reports that he does not drink alcohol and does not use drugs. ALLERGY is allergic to shellfish derived and keppra [levetiracetam]. HOME MEDICATIONS Current Outpatient Medications Medication Instructions amLODIPine (NORVASC) 10 mg, Oral, DAILY aspirin 81 mg, Oral, DAILY atorvastatin (LIPITOR) 20 mg, Oral, QHS Blood-Glucose Meter,Continuous (DEXCOM G7 AUTOTRANSFUSIONIST) [facility] as directed Blood-Glucose Sensor (DEXCOM G7 SENSOR) Sari 1 Each, subcutaneous (via wearable injector), [id number], Use as directed carvediloL (COREG) 37.5 mg, Oral, BID MEALS cenobamate (XCOPRI) 150 mg, Oral, DAILY cenobamate (XCOPRI) 200 mg, Oral, DAILY cetirizine (ZYRTEC) 10 mg, Oral, DAILY dapagliflozin propanediol (FARXIGA) 10 mg, Oral, DAILY divalproex ER (DEPAKOTE ER) 2,000 mg, Oral, Q12H donepeziL (ARICEPT) 5 mg, Oral, QHS ferrous sulfate 325 mg, Oral, Q OTHERDAY fluticasone propionate (FLONASE ALLERGY RELIEF) 50 mcg/actuation nasal spray 1 [place], Nasal, BID hydrALAZINE (APRESOLINE) 25 mg, Oral, Q6H hydrOXYzine (ATARAX) 10 mg, Oral, Q6HPRN insulin glargine U-300 conc (TOUJEO MAX U-300 SOLOSTAR) 16 Units, Subcutaneous, QHS, take half dose if NPO or if blood glucose 80 - 120 mg/dL, hold if less than 80 insulin lispro (HUMALOG KWIKPEN INSULIN) 100 unit/mL pen injector INJECT UNDER THE SKIN EVERY EIGHT HOURS PER SLIDING SCALE (151-200 TWO UNITS, 201-250 4U, 251-300 6U, 301-350 8U, 351-100 10U) Insulin [place], Disposable, (ULTICARE PEN NEEDLE) 31 gauge x 3/16" Ndle Use as directed Lacosamide (VIMPAT) 200 mg, Oral, BID lisinopriL (PRINIVIL,ZESTRIL) 40 mg, Oral, DAILY metFORMIN (GLUCOPHAGE) 1,000 mg, Oral, BID MEALS midazolam (NAYZILAM) 5 mg/spray (0.1 mL) [place] 1 [place], Nasal, Q6HPRN MULTIVITS-MINERALS/FA/LYCOPEN E (ONE-A-DAY MEN'S MULTIVITAMIN ORAL) Take by mouth. qujgw-[id number]-fish oil-D3 (FISH OIL-VIT D3) 360 mg-1,200 mg -1,000 unit Cap Take by mouth. pantoprazole (PROTONIX) 40 mg, Oral, DAILY POTASSIUM-99 ORAL 99 mg, Oral, DAILY prednisoLONE acetate 1 % ophthalmic suspension drops 1 Drop, Left Eye, Q2H predniSONE (DELTASONE) 25 mg, Oral, DAILY risperiDONE (RISPERDAL) 1 mg, Oral, BID HOSPITAL MEDICATIONS Scheduled meds: IV meds: PRN meds: [START ON 06/13/2024] amLODIPine, 10 mg, DAILY [START ON 06/13/2024] aspirin, 81 mg, DAILY atorvastatin, 20 mg, QHS [START ON 06/13/2024] carvediloL, 37.5 mg, BID MEALS divalproex ER, 2,000 mg, Q12H donepeziL, 5 mg, QHS [START ON 06/13/2024] enoxaparin (LOVENOX) adult SC Syringe, 40 mg, DAILY [START ON 06/13/2024] hydrALAZINE, 25 mg, Q6H insulin glargine, 10 Units, QHS lacosamide, 200 mg, BID [START ON 06/13/2024] lisinopriL, 40 mg, DAILY methylPREDNISolone sod succ (SOLU-MEDROL) IV/IM, 1,000 mg, Q24H NaCl 0.9% (NS), 1,000 mL, ONCE [START ON 06/13/2024] Non-Formulary Medication, 200 mg, DAILY [START ON 06/13/2024] pantoprazole, 40 mg, DAILY risperiDONE, 1 mg, BID acetaminophen, 650 mg, Q6HPRN docusate, 100 mg, QDAILYPRN hydrOXYzine, 10 mg, Q6HPRN REVIEW OF SYSTEMS General: (-) fever, (-) chills, (-) weight change, (-) dizziness, (-) fatigue, (-) change in appetite Skin: (-) rash, (-) lesion HEENT: (-) headache, (-) change in hearing, (-) change in vision, (-) nasal discharge, (-) sore throat Neck: (-) pain, (-) difficulty swallowing, (-) mass Heme: (-) bleeding disorder Resp: (-) cough, (-) shortness of breath, (-) dyspnea on exertion Cardio: (-) chest pain, (-) palpitations, (-) syncope GI: (-) abdominal pain, (-) nausea, (-) vomiting, (-) diarrhea, (-) constipation, (-) melena, (-) hematochezia, (-) hematemesis : (-) dysuria, (-) hematuria, (-) increased frequency, (-) difficulty urinating, (-) difficulty initiating Endo: (-) heat intolerance, (-) diabetes, (-) cold intolerance, (-) polyuria, (-) polydipsia, (-) renal insufficiency, (-) thyroid disease Neuro: See HPI Back: (-) pain, (-)spasms CONTRERAS: (-) muscle pain, (-) joint pain, (-) claudication Psych: (-) anxiety, (-) depression, (-) psychiatric disorder PHYSICAL EXAM Vitals: 06/12/24 1425 06/12/24 1741 BP: 139/84 (!) 146/97 Pulse: 84 53 Resp: 20 20 Temp: 37.1 ?C (98.8 ?F) SpO2: 98% 97% Weight: 117.9 kg (260 lb) Height: 1.956 m (6' 5") General: No apparent distress. Mental Status: Alert and oriented x 2 (person, place). Consciousness, attention, concentration: normal, Stays focused and on task while being questioned. Language: intact to comprehension, repetition and naming. Reduced fluency Fund of knowledge: impaired Remote and recent memory: impaired, chronic Cranial Nerves: I. Not tested. II. Symmetric, equally reactive pupils. L HH chronic III. IV., . Extraocular movements intact without nystagmus . V. Normal sensation bilaterally in V1-3 distributions. VII. No facial droop noted. VIII. Hearing intact to finger rubbing in either ear. IX., X. Palatal elevation normal symmetrically. XI. Normal strength of sternocleidomastoid and trapezius muscles bilaterally. XII. Tongue in midline. Motor system: Tone: normal Bulk: normal Strength Right Left Deltoid 5 5 Biceps 5 5 Triceps 5 5 Wrist extensors 5 5 Interossei 5 5 Hip flexors 5 5 Knee flexors (hamstring) 5 5 Knee extensors (quadriceps) 5 5 Ankle dorsiflexors 5 5 Ankle plantar flexors 5 5 Deep Tendon Reflexes Right Left Biceps 2+ 2+ Triceps 2+ 2+ Brachioradialis 2+ 2+ Patella 2+ 2+ Achilles 1+ 1+ Pathologic reflexes and signs: Ankle clonus: absent Abebe's sign: negative bilaterally. Plantar response: mute bilaterally Cerebellum: Negative: intentional tremors noted, nystagmus, rapid alternating movements, ahmtjn-pn-besu testing, vuvt-me-rnys testing Sensory system: Light touch: Intact Gait: Deferred. General examination: HEENT: moist mucus membranes. Clear oropharynx. Lungs: normal breath sounds. No abnormal sounds. Cardio: normal heart sounds. No added sounds. Extremities: no cyanosis, clubbing or edema. Neck: supple. No carotid bruit or JVD. Abdomen: normal contour. Soft, non-tender to palpation. Normoactive bowel sounds. LABS, RADIOLOGY, ELECTROPHYSIOLOGY Relevant labs: Labs (last 24 hours): Chemistry CBC LFTs Coags, other 143 106 16 151 (H) 5.10 11.6 (L) 202 AST: 20 ALT: 20 PT: - INR: - 3.7 32 (H) 0.71 36.9 (L) AP: 59 T Sean: 0.3 PTT: - eGFR: 111.1 Ca: 8.6 % Juan David: 67.1 Prot: 5.5 (L) Alb: 3.5 Lact: - Procal: - Mg: - PO4: - ANC: 3.42 pBNP: - Trop I: - MRI brain (date): === Study performed on encounter date 01/23/24 === MR BRAIN W WO CONTRAST - Impression - 1. No acute brain lesion. 2. Very extensive abnormal left sclerouveal and retrobulbar/perioptic enhancement. 3. Subtle abnormal scleral and perioptic enhancement in the right orbit. 4. Abnormal enhancement extending to the orbital apex and through the orbital foramen bilaterally into the paraclinoid region. I do not see diffuse abnormal intracranial enhancement further back. CT head (date): === Study performed on encounter date 06/12/24 === CT HEAD WO CONTRAST (Preliminary) This result has not been signed. Information might be incomplete. - Impression - No acute intracranial abnormality. Preliminary Report Dictated by Resident: Manjinder Mendoza CTA head and neck (date): === Study performed on encounter date 02/13/23 === CT STROKE ANGIOGRAM HEAD - Impression - No large vessel occlusion or flow-limiting stenosis identified in the intracranial or cervical vessels. Preliminary Report Dictated by Resident: Liz Peters, Parmjit Arango MD., have reviewed this study and agree with the above report. === Study performed on encounter date 02/13/23 === CT STROKE ANGIOGRAM NECK - Impression - No large vessel occlusion or flow-limiting stenosis identified in the intracranial or cervical vessels. Preliminary Report Dictated by Resident: Parmjit May MD., have reviewed this study and agree with the above report. 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 Patient was evaluated by ophthalmology in ER who noted him to have ?optociliary shunt vessels c/f flare. Will admit patient to neurology service and treat as vasculitis flare up. RECOMMENDATIONS: - IVMP 1 g x3 days - MRI brain and MRI orbit wwo - CTA head and neck - basic labs including CBC, CMP, UA, TSH Patient was seen and discussed with Mushtaq Armijo MD, Neurology Faculty. Discussed with the primary team. Neurology will continue to follow. Neurology consult pager: [phone] Kike Patel MD General Neurology Consults Service [facility] OSOFT DEVELOPER Associated attestation - Mushtaq Singh MD - 06/13/2024 8:52 PM MICROSOFT DEVELOPER I personally examined the patient on the date of service 06/13 and agree with the residents note above. I actively participated in the decision-making process. Including any findings and plan of care as documented by the residents or edited by me. I spent a total of 75 minutes on the day of the visit. The time spent for patient care includes: PreCharting (eg, review of tests, notes, etc.), Obtaining and/or reviewing separately obtained history (Care Everywhere or paper records), Performing a medically appropriate examination and/or evaluation, Counseling and educating the patient/family/caregiver, Ordering medications, tests, or procedures, Ordering referrals and/or communicating with other health childcare attendant (when not separately reported), Documenting clinical information in the electronic or other health record, Independently interpreting results (not separately reported) and/or communicating results to the patient/family/caregiver, and Care coordination (not separately reported). Please see the resident's note for additional details. 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, brain MRI showed extensive perivascular and deep wm lesion he underwent brain biopsy which showed moss and white matter and perivascular T-cell predominant chronic inflammatory infiltrates and diffuse microglial activation with extensive gliosis, viral and autoimmune encephalopathy panel were negative, patient was diagnosed with PACNS and given IV steroid (Methylprednisolone 12 mg per day followed with oral taper and scheduled Rituximab, disease is c/b seizures and patient continued to progress and was hospitalized several times due to seizures, patient has had a Rt sided HH noted since 02/2022 and further evaluation of his MRI showed a corresponding Left occipital lesion, vision deteriorated and patient developed bilateral Left >>> Right vision loss in January 2024, MRI showed extensive retrobulbar and scleral enhancement, with perineuritis and orbital apex involvement, LP showed 22 WBCs, elevated protein, elevated glucose. 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 chest imaging was negative, JULI was negative. continued to follow up with Rheumatology and neurology. Patient on Rituximab last dose was on November 15), reports continued progressive decline in his mental status and his vision has stabilized since January with no significant improvement, in addition to gait abnormalities (patient has shuffling gait). Today, patient states he experienced L eye pain in the morning with no changes in the vision. He is currently experiencing L eye pain, worse with eye movements. He is not experiencing any pain the R eye however had an episode this morning of R eye pain and vision changes. Ocular ROS: Contact lens wearer - No Trauma to the eye - No Change of vision - No Presbyopia - Yes Diplopia - No Photophobia - No Photopsia and floaters - No Eye pain - Yes Discharge - No Redness - No ROS General: negative Skin: negative Neck: negative Resp: negative GI: negative Neuro: negative Back: negative MS: negative Psych: negative Mental Status Oriented to Time, Place & Person: Yes Mood, Affect: Normal Past History Past Medical History: Diagnosis Date Allergic rhinitis December 2021 Anxiety September 2020 CAD (coronary artery disease) Depression September 2020 Glaucoma December 2023 HLD (hyperlipidemia) HTN (hypertension) Pre-diabetes Seizures September 2020 Stroke April 2022 T2DM (type 2 diabetes mellitus) Ocular History Per HPI Ocular Family History None Ocular Medications (per patient) Pred forte once daily in both eyes Social History Social History Socioeconomic History Marital status: Spouse name: Not on file Number of children: Not on file Years of education: Not on file Highest education level: Not on file Occupational History 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 Tobacco Use Smoking status: Former Current packs/day: 0.00 Average packs/day: 2.0 packs/day for 15.0 years (30.0 ttl pk-yrs) Types: Cigarettes Quit date: 03/25/2022 Years since quittin.2 Passive exposure: Never Smokeless tobacco: Former Quit date: 09/22/2020 Tobacco comments: Vape low dose nicotene Substance and Sexual Activity Alcohol use: No Drug use: No Sexual activity: Not Currently Partners: Female Comment: Health issues....seizures Other Topics Concern Not on file Social History Narrative Not on file Social Determinants of Health Financial Resource Strain: Low Risk (01/23/2024) Overall Financial Resource Strain (CARDIA) Difficulty of Paying Living Expenses: Not hard at all Food Insecurity: No Food Insecurity (01/23/2024) Hunger Vital Sign Worried About Running Out of Food in the Last Year: Never true Ran Out of Food in the Last Year: Never true Transportation Needs: No Transportation Needs (03/21/2023) PRAPARE - Transportation Lack of Transportation (Medical): No Lack of Transportation (Non-Medical): No Physical Activity: Inactive (01/23/2024) Exercise Vital Sign Days of Exercise per Week: 0 days Minutes of Exercise per Session: 0 min Stress: Not on file Social Connections: Unknown (01/23/2024) Social Connection and Isolation Panel [NHANES] Frequency of Communication with Friends and Family: Never Frequency of Social Gatherings with Friends and Family: Not on file Attends Yazdanism Services: Not on file Active Member of Clubs or Organizations: Not on file Attends Club or Organization Meetings: Not on file Marital Status: Housing Stability: Low Risk (01/23/2024) Housing Stability Vital Sign Unable to Pay for Housing in the Last Year: No Number of Places Lived in the Last Year: 1 Unstable Housing in the Last Year: No Medications No current facility-administered medications for this encounter. Current Outpatient Medications Medication Sig Dispense Refill cenobamate 150 mg Tab Take 150 mg by mouth in the morning. 30 tablet 0 cenobamate 200 mg Tab Take 200 mg by mouth in the morning. 30 tablet 5 divalproex ER 500 mg 24 hr tablet Take 4 tablets by mouth every 12 (twelve) hours. 120 tablet 5 Lacosamide 200 mg tablet Take 1 tablet by mouth in the morning and 1 tablet in the evening. 60 tablet 5 amLODIPine 10 mg tablet Take 1 tablet by mouth in the morning. 30 tablet 11 atorvastatin 20 mg tablet Take 1 tablet by mouth at bedtime. 30 tablet 11 insulin lispro (HUMALOG KWIKPEN INSULIN) 100 unit/mL pen injector INJECT UNDER THE SKIN EVERY EIGHT HOURS PER SLIDING SCALE (151-200 TWO UNITS, 201-250 4U, 251-300 6U, 301-350 8U, 351-100 10U) 30 mL 2 metFORMIN 1,000 mg tablet Take 1 tablet by mouth in the morning and 1 tablet in the evening. Take with meals. 60 tablet 11 donepeziL (ARICEPT) 5 mg tablet Take 1 tablet by mouth at bedtime. 60 tablet 3 predniSONE 50 mg tablet Take 0.5 tablets by mouth in the morning. (Patient taking differently: Take 0.5 tablets by mouth in the morning. Indications: Has tapered down to 25 mg daily) 90 tablet 0 Blood-Glucose Sensor (DEXCOM G7 SENSOR) Sari 1 Each by subcutaneous (via wearable injector) route every 10 (ten) days. Use as directed 4 Each 4 Blood-Glucose Meter,Continuous (DEXCOM G7 AUTOTRANSFUSIONIST) [facility] [place] 1 Each 0 dapagliflozin propanediol (FARXIGA) 10 mg tablet Take 1 tablet by mouth in the morning. 90 tablet 3 insulin glargine U-300 conc (TOUJEO MAX U-300 SOLOSTAR) 300 unit/mL (3 mL) InPn inject 16 Units under the skin at bedtime. take half dose if NPO or if blood glucose 80 - 120 mg/dL, hold if less than 80 9 mL 1 Insulin [place], Disposable, (ULTICARE PEN NEEDLE) 31 gauge x 3/16" Ndle Use as directed 100 Each 3 carvediloL 12.5 mg tablet Take 3 tablets by mouth in the morning and 3 tablets in the evening. Take with meals. 30 tablet 6 midazolam (NAYZILAM) 5 mg/spray (0.1 mL) [place] Use 1 Newton in each nostril every 6 (six) hours as needed (seizure). 10 Each 3 aspirin 81 mg chewable tablet Take 1 tablet by mouth in the morning. 30 tablet 6 cetirizine 10 mg tablet Take 1 tablet by mouth in the morning. 30 tablet 0 prednisoLONE acetate 1 % ophthalmic suspension drops Place 1 Drop in left eye every 2 (two) hours. 5 mL 6 hydrALAZINE 25 mg tablet Take 1 tablet by mouth every 6 (six) hours. 30 tablet 0 lisinopriL 40 mg tablet Take 1 tablet by mouth in the morning. 30 tablet 11 fluticasone propionate (FLONASE ALLERGY RELIEF) 50 mcg/actuation nasal spray Use 1 Newton in each nostril in the morning and 1 Newton in the evening. 16 g 0 ferrous sulfate 325 mg (65 mg iron) tablet Take 1 tablet by mouth every other day. 15 tablet 0 hydrOXYzine 10 mg tablet Take 1 tablet by mouth every 6 (six) hours as needed for Itching. 90 tablet 2 pantoprazole 40 mg EC tablet Take 1 tablet by mouth in the morning. 30 tablet 5 risperiDONE 1 mg tablet Take 1 tablet by mouth in the morning and 1 tablet in the evening. 60 tablet 5 POTASSIUM-99 ORAL Take 99 mg by mouth daily. MULTIVITS-MINERALS/FA/LYCOPEN E (ONE-A-DAY MEN'S MULTIVITAMIN ORAL) Take by mouth. ddcra-8b-jys-epa-fish oil-D3 (FISH OIL-VIT D3) 360 mg-1,200 mg -1,000 unit Cap Take by mouth. Allergies Allergies Allergen Reactions Shellfish Derived Anaphylaxis Keppra [Levetiracetam] Hallucinations Physical Exam BP: (139)/(84) Temp: [37.1 ?C (98.8 ?F)] Temp source: -- Pulse: [84] Resp: [20] SpO2: [98 %] Height: [195.6 cm (6' 5")] Weight: [117.9 kg (260 lb)] BMI (calculated): [30.83] Visual Acuity: distance OD 20/150 with correction/glasses, 20/60 PH OS hand motions with correction/glasses, NI PH caponizer test: patient unable 2/2 poor VA OS Pupils: OD: dark: 4 mm light: 3 mm rAPD: no OS: dark: 4 mm light: 3 mm rAPD: yes Intraocular Pressure: Tonopen Patient administered 1 drop of proparacaine into each eye. OD: 13 OS: 13 Motility: -1 supraduction and infraduction OS Visual Field: unable OS, restricted ST OD OPH Exam: Slit Light Exam OD: External: wnl Lids and Lashes: wnl Conjunctiva/Sclera: CAM Cornea: inferior dense PEE Anterior Chamber: deep quiet Iris: Normal Lens: central PSC, NS OS: External: wnl Lids and Lashes: wnl Conjunctiva/Sclera: CAM Cornea: dense PEE Anterior Chamber: deep, quiet Iris: Normal Lens: PSC Dilated Fundus Exam: Patient dilated with 1 drop of 2.5% phenylephrine and 1% tropicamide into each eye at 3:24 PM. 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 Patient currently on pred 25 mg oral daily, pred forte OU qdaily and rituxumab every 6 m, last dose 06/17. Despite above treatment, patient still with symptoms concerning for flare - Color plates 8/16 OD, also noted in January 2024 admission - VA 20/60 OD, HM OS, IOP wnl, RAPD OS - Slit lamp exam significant for: no cell or flare OU, central PSC OD - DFE: no appreciable optic nerve edema OU, significant optocilliary shunt vessels OS - Patient with symptoms of L eye pain concerning for HEALTH POLICY ANALYST vasculitis flare. Reports increase extraocular symptoms with increased gait instability - Appreciate neurology evaluation - will require repeat imaging to assess for recurrence of optic neuritis OS including vascular imaging to assess for cause of OSVs found OS followed by IV steroids Recommendations: - MRI brain and orbits/MRA with fat suppression - patient will need inpatient admission for IV steroids - neurology evaluation for cerebral vasculitis flare - preservative free artificial tears QID OU - IV MP 1 g/day for 3 days - rheumatology evaluation - Return precautions given - Ophthalmology will continue to follow Patient was seen and discussed with Dr. Knutson PGY-[address] Cortes (faculty), will be discussed with Dr. Varela, faculty I personally examined the patient with Dr. Khanna and agree with the resident's note as written. I actively participated in the decision making process. Please see the resident's note for additional details. Felipe Varela MD Ophthalmology faculty The management plan was discussed with the patient and the consulting team. Sangita Khanna MD PGY-2 Ophthalmology and Visual Sciences Please page event specialist product demonstrator ophthalmology resident with any questions ----- ----- Common Ophthalmology Abbreviations: AC - Anterior chamber; ACG - Angle closure glaucoma; ALT - Argon laser trabeculoplasty; AMD - Age-related macular degeneration; APD - Afferent pupillary defect; AT - Artificial tears; C/D - Cup-to-disc ratio; CWS: Cotton wool spots; DBH: Dot-blot hemorrhages; DFE - Dilated fundus exam; FA - Fluorescein angiography; FB - Foreign body; HVF - Briceno Visual Koenig; KP - Keratic precipitates; IOL - Intraocular lens; IOP - Intraocular pressure; LP - Light perception; NLP - No light perception; NPDR - Non-proliferative diabetic retinopathy; NS - Nuclear sclerotic; NVM - Neovascular membrane; OAG - Open angle glaucoma; OD - right eye; OS - left eye; OU - Both eyes; PCIOL - Posterior chamber IOL; PDR - Proliferative diabetic retinopathy; ph - Pin hole; PI - Peripheral iridectomy/iridotomy; PK - Penetrating keratoplasty; POAG - Primary open angle glaucoma; PPV - Pars plana vitrectomy; PRK - Photorefractive keratectomy; PRP - Metcalf retinal photocoagulation; PSC - Posterior subcapsular cataract; RAPD - Relative afferent papillary defect; RD - Retinal detachment; ROP - Retinopathy of prematurity; TBUT - Tear break-up time; TID - Transillumination Defect; TM - Trabecular meshwork; Trab - Trabeculectomy; TRD - Traction retinal detachment; tony - Ointment; VA - Visual acuity; VF - Visual field; YAG - Akumukq-yvfctqnj-uyhuls laser OSOFT DEVELOPER OPH-OPHTHALMOLOGY STAFF [facility] 2024-02-10 11:35:36 Associated Order(s): CONSULT RHEUMATOLOGY Rheumatology Note Patient: Mike Francis III 02/10/2024 Chief Complaint/Reason for Visit: [facility] (Internal) consultation visit, requested by Dr. Cai, for evaluation for " L eye optic neuropathy, Posterior uveitis vs endophthalmitis; concern for autoimmune etiology, pending biopsy results. " HPI: Mike Francis III is a 48 year old Black or male with past medical history listed below, presenting to clinic today, as mentioned above. Patient with history of primary angitis status post rituxan (last dose november 2023), who presents with status epliepticus intubated/sedated 01/23/24 and extubated 01/25/2024. Investigations demonstrated progressive left eye pain with decreasing vision wherein evaluation demonstrated progressive 3 month L eye pain with decreasing vision wherein ijmaging noted significan sclero uveal and retroptic abnormalities. Patient indicates he cannot see from his L eye and symptoms have minimally improved since presentation. He and his are uncertain if there is any improvement while on the rituxan, patient denies skin changes, arthralgia, shortness of breath. Denies new skin lesions, mucositis. Given history of pacns, hx significant immunosuppresion, suspicion for opportunistic infection, id was consulted with broad spectrum antibiotics and antifungals. Lumbar punctures were unremarkable and patient had viitreous tap performed by opththo with orbiital biopsy pending and on high dose steroids. Of note, vitreous and ac samples not adequate for vzv, hsv, cmv pcr. Autoimmune work up with DUARTE 1:80 spckled, crp 5.7, sed rate 97, wnl tsh, igg levels. The patient denies all except bolded terms mucositis, serositis, synovitis, psychosis, seizures, malar rash, discoid rash, photosensitivity, calcinosis, Raynaud's, esophageal dysfunction, sclerodactyly, telangiectasia, xerostomia, xerophthalmia, dyspnea, thrombosis, miscarriage, alopecia or fever. REVIEW OF SYSTEMS See hpi above HISTORY Past Medical History: Diagnosis Date CAD (coronary artery disease) HLD (hyperlipidemia) HTN (hypertension) Pre-diabetes Past Surgical History: Procedure Laterality Date CRANIOTOMY BIOPSY BRAIN (SHX) Right 02/12/2022 Surgeon: Preethi Torres MD; Location: [facility] OR [facility] MASS EXCISION Left 02/03/2024 Surgeon: Carine Bush MD; Location: [facility] ORBITOTOMY Left 02/03/2024 Surgeon: Carine Bush MD; Location: [facility] OR LOCATION Family History Problem Relation Age of Onset Coronary Heart Disease Unknown Grandmother Stroke Father 60s Social History Socioeconomic History Marital status: Occupational History 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 Tobacco Use Smoking status: Former Types: Cigarettes Passive exposure: Never Smokeless tobacco: Former Tobacco comments: Vape low dose nicotene Substance and Sexual Activity Alcohol use: No Drug use: No Social Determinants of Health Financial Resource Strain: Low Risk (01/23/2024) Overall Financial Resource Strain (CARDIA) Difficulty of Paying Living Expenses: Not hard at all Food Insecurity: No Food Insecurity (01/23/2024) Hunger Vital Sign Worried About Running Out of Food in the Last Year: Never true Ran Out of Food in the Last Year: Never true Transportation Needs: No Transportation Needs (03/21/2023) PRAPARE - Transportation Lack of Transportation (Medical): No Lack of Transportation (Non-Medical): No Physical Activity: Inactive (01/23/2024) Exercise Vital Sign Days of Exercise per Week: 0 days Minutes of Exercise per Session: 0 min Social Connections: Unknown (01/23/2024) Social Connection and Isolation Panel [NHANES] Frequency of Communication with Friends and Family: Never Marital Status: Housing Stability: Low Risk (01/23/2024) Housing Stability Vital Sign Unable to Pay for Housing in the Last Year: No Number of Places Lived in the Last Year: 1 Unstable Housing in the Last Year: No Allergies Allergen Reactions Shellfish Derived Anaphylaxis Keppra [Levetiracetam] Hallucinations Onion Other - See comments Causes gas/bloating No current facility-administered medications on file prior to encounter. Current Outpatient Medications on File Prior to Encounter Medication Sig Dispense Refill atorvastatin 20 mg tablet Take 1 tablet by mouth at bedtime. 30 tablet 0 lacosamide 50 mg tablet Take 1 tablet by mouth in the morning and 1 tablet in the evening. 60 tablet 2 amLODIPine 10 mg tablet Take 1 tablet by mouth in the morning. 30 tablet 0 gabapentin 300 mg capsule Take 1 capsule by mouth in the morning and 1 capsule at noon and 1 capsule in the evening. 90 capsule 0 glyBURIDE 5 mg tablet Take 1 tablet by mouth daily with breakfast. 30 tablet 2 hydrALAZINE 25 mg tablet Take 1 tablet by mouth every 6 (six) hours. 30 tablet 0 DIVALPROEX ER 500 mg 24 hr tablet TAKE 4 TABLETS BY MOUTH IN THE MORNING AND 4 TABLETS IN THE EVENING 240 tablet 3 lisinopriL 40 mg tablet Take 1 tablet by mouth in the morning. 30 tablet 11 metFORMIN 1,000 mg tablet Take 1 tablet by mouth in the morning and 1 tablet in the evening. Take with meals. 60 tablet 0 fluticasone propionate (FLONASE ALLERGY RELIEF) 50 mcg/actuation nasal spray Use 1 Newton in each nostril in the morning and 1 Newton in the evening. 16 g 0 carvediloL (COREG) 25 mg tablet Take 1 tablet by mouth in the morning and 1 tablet in the evening. Take with meals. 60 tablet 0 ferrous sulfate 325 mg (65 mg iron) tablet Take 1 tablet by mouth every other day. 15 tablet 0 hydrOXYzine 10 mg tablet Take 1 tablet by mouth every 6 (six) hours as needed for Itching. 90 tablet 2 pantoprazole 40 mg EC tablet Take 1 tablet by mouth in the morning. 30 tablet 5 risperiDONE 1 mg tablet Take 1 tablet by mouth in the morning and 1 tablet in the evening. 60 tablet 5 POTASSIUM-99 ORAL Take 99 mg by mouth daily. MULTIVITS-MINERALS/FA/LYCOPEN E (ONE-A-DAY MEN'S MULTIVITAMIN ORAL) Take by mouth. nawvr-1o-peu-epa-fish oil-D3 (FISH OIL-VIT D3) 360 mg-1,200 mg -1,000 unit Cap Take by mouth. PHYSICAL EXAM BP 127/74 (BP Location: Right arm, Patient Position: Sitting) | Pulse 66 | Temp 36.4 ?C (97.5 ?F) | Resp 16 | Ht 1.905 m (6' 3") | Wt 131.9 kg (290 lb 12.6 oz) | SpO2 98% | BMI 36.35 kg/m? General: Alert, Oriented to name, place and time, No apparent distress Psych: Mood and affect congruent Ears, Nose, Throat, Mouth: Oral mucosa moist with good salivary pool; Skin: No rashes noted Neck: No lymphadenopathy Cardiovascular: RRR no murmur Respiratory: clear to ausculation bilaterally, no wheezes or crackles Abdomen: Soft, nontender, nondistended with normoactive bowel sounds Neuro: non focal deficits Musculoskeletal: Hands: Normal, No swelling, tenderness, warmth, erythema, present at the PIPs, DIPs, MCPs. Wrists: Normal. No swelling, tenderness, warmth, erythema. Bilateral ROM: Normal. Elbows: Normal. No swelling, tenderness, warmth, erythema. No nodules. Bilateral ROM: Normal. Shoulders: Normal. Bilateral ROM: Normal. Feet: Normal and bilateral MTP squeeze negative. Ankles: Normal. No swelling, tenderness, warmth, erythema. Bilateral ROM: Normal. Knees: trace edema, no swelling or ttp Hips: Normal and bilateral ROM: Normal. Spine: Normal, Paraspinal tenderness not present. LABS Recent Labs 02/08/24 0543 02/09/24 0535 02/10/24 0551 WBC 11.96* 9.54 8.77 HGB 11.1* 11.4* 11.3* MCV 83.1 84.2 83.8 PLT 444* 395* 322 Recent Labs 02/08/24 0543 02/09/24 0535 02/10/24 0551 NA 141 141 137 K 4.4 4.0 4.0 CL 104 103 100 TCO2 31 32* 33* BUN 30* 24* 20 CREAT 0.79 0.75 0.70 GLU 156* 93 130* CA 8.7 8.5* 8.4* MG 2.3 2.2 2.0 Histoplasma Abs (Id) & Antigen Quant by EIA (serum) 01/29/24: negative Coccidioides IgG DANIELLE, IgM DANIELLE serum 01/29/24: negative Aspergillus Galactomannan antigen by EIA serum 01/29/24: negative Bartonella henselae serum 01/29/24 Ig:64 (equivocal) / IgM negative Bartonella moore serum 01/29/24 Ig:64 (equivocal) / IgM negative Pathology: LEFT EYE ORBITAL FAT 02/03/24: in process CSF 01/29/24: Smears show small lymphocytes and rare monocytes. No malignant cells identified. DUARTE 1:80 speckled Neg syphillis igm\\igg Neg quant gold Negative anca Crp 5.7 Esr 97 Rf <20 IGG 771 ADA csf neg JULI <10 Ct thorax \\abdomen large periaortic lympho node left upper abdomen , no LAD Mri orbit: exttensive abnormal left sclerouveal and retrobulbar perioptic enhancment, substle abnormal scleral perioptic enchancement of R orbit. Abnormal enhacnment extendinc go oribtal apex and through orbital foremen bilaterally into paraclinoid region. ASSESSMENT Posterior uveitis/Endophthalmitis Primary angitis HEALTH POLICY ANALYST s/p rituxan Patient admitted with seizure found with L eye pain concerning for posterior uveitis vs endophalmitis previously managed on rituxan. Discussion with patient and reports uncertain if there have been improvements despite immunosuppression. Given history of immunosuppression, it is critical to rule out infectious etiology which appears grossly negative thus far however pending viral pcrs. Physical exam, history, and pathological results are not consistent with other systemic rheumatological disease but warrant to rule out igg4. As there is no obvious retroperitoneal masses, less suspicious for IGG4 gammopathy but to complete rule out would require biopsy count of IGG4 plasma cells, biopsy ratio of igg4 to igg, and serum igg4 levels. However, it must be noted that patient is already on rituxan which can treat refractory igg4. -recommend obtaining biopsy results for IGG4 positive plasma cells by high power field, and IGG4/IGG ratio ratio of biopsy -Serum igg4 (order placed) -Steroids per neurology/ophtho -Given immunosuppression, presentation of endophthalmitis/posterior uveitis,agree with thorough infectious rule out -We will follow based on results for igg4 Thank you for this interesting consult Jose Galvan Rheumatology Ariel Fellow, PGY4 Associated attestation - Desi Castle MD - 02/10/2024 10:38 PM CDT 02/10/[address] Galvan, I examined this patient with Dr. Galvan. I agree with resident's note as written. Please obtain the labs and tissue testing as in fellows note Steroids for now as per neurology and ophthalmology Agree with primary team in ensuring any infectious etiologies are ruled out DESI CASTLE MD Rheumatology IM-RHEUMATOLOGY [facility] 2024-02-05 12:57:57 Associated Order(s): CONSULT ENDOCRINOLOGY Endocrinology Consult Note Consultation requested by: Service: IM Reason for Consultation: Hyperglycemia with high dose steroids Date of Service: 02/05/24 HPI 48 year old Black or male presented with PMH of CAD, Primary angiitis of HEALTH POLICY ANALYST (On scheduled rituximab), seizures, HTN, HLD, T2DM (uncontrolled A1C 8.2%) was admitted for seizures. Patient has been getting high dose steroids starting 02/02. In settings of high dose steroids hyperglycemia has been worsening. Endocrinology is consulted for uncontrolled type 2 diabetes mellitus and hyperglycemia with high-dose steroids. Diabetes Type and year diagnosed: Type II, diagnosed 10 years ago Diabetes complications: Coronary artery disease Hx of DM regimen: Metformin 1000 mg twice daily Compliance: Good BG monitoring? Occasional Hypoglycemia hx: No Hypoglycemia unawareness? No Symptoms of hyperglycemia: Blurry vision Living situation and support: Lives with Diabetes doctor: Primary care doctor Family hx of diabetes: Yes from maternal side HX of glucocorticoid use: Yes in the hospital HX of transfusions or EPO in last 6 months: No PAST MEDICAL HISTORY Past Medical History: Diagnosis Date CAD (coronary artery disease) HLD (hyperlipidemia) HTN (hypertension) Pre-diabetes Past Surgical History: Procedure Laterality Date CRANIOTOMY BIOPSY BRAIN (SHX) Right 02/12/2022 Surgeon: Preethi Torres MD; Location: [facility] OR [facility] Family History Problem Relation Age of Onset Coronary Heart Disease Unknown Grandmother Stroke Father 60s Social History Tobacco Use Smoking status: Former Types: Cigarettes Passive exposure: Never Smokeless tobacco: Former Tobacco comments: Vape low dose nicotene Substance Use Topics Alcohol use: No Drug use: No ALLERGIES Shellfish derived, Keppra [levetiracetam], and Onion REVIEW OF SYSTEMS Most of the history was taken by present on the bedside, patient himself did not answer any of the questions but appears to be in no acute distress at this time PHYSICALEXAM BP 134/75 | Pulse 68 | Temp 36.3 ?C (97.4 ?F) | Resp 18 | Ht 1.905 m (6' 3") | Wt 131.9 kg (290 lb 12.6 oz) | SpO2 94% | BMI 36.35 kg/m? General: Patient appears in no apparent distress Neck: Supple Lungs: clear to auscultation, no accessory muscle use Cardiovascular: RRR Abdomen: soft, nontender Musculoskeletal: no tenderness or deformities Integumentary: warm, dry Neuro: Awake and alert psych: Cooperative Foot exam: Sensation in feet grossly intact, no ulcers or wounds noticed LABORATORY Recent Labs 02/01/24 0229 TSH 1.68 Recent Labs 01/23/24 0107 HGBA1C 8.2* BMP Recent Labs 02/03/24 0530 02/04/24 0002 02/05/24 0423 NA 136 < > 136 K 3.9 < > 4.5 CA 9.4 < > 9.9 CL 99 < > 102 BUN 12 < > 40* CREAT 0.66 < > 1.04 GLU 182* < > 336* TCO2 31 < > 26 ALB 3.5 -- -- < > = values in this interval not displayed. Lab Results Component Value Date/Time GLU 336 (H) 02/05/2024 04:23 AM POC GLU 308 (H) 02/05/2024 12:30 PM POC GLU 343 (H) 02/05/2024 08:10 AM POC GLU 349 (H) 02/05/2024 04:49 AM POC GLU 318 (H) 02/05/2024 02:22 AM POC GLU 349 (H) 02/04/2024 11:09 PM POC GLU 388 (H) 02/04/2024 07:58 PM POC GLU 416 (H) 02/04/2024 06:16 PM POC GLU 408 (H) 02/04/2024 04:26 PM HOSPITAL MEDICATIONS Scheduled meds:divalproex ER, 500 mg, TID [START ON 02/06/2024] insulin glargine, 40 Units, DAILY insulin lispro (human), 20 Units, TID MEALS insulin lispro (human), , Q4H erythromycin, 0.5 Inch, QHS lacosamide, 200 mg, BID methylPREDNISolone sod succ (SOLU-MEDROL) IV/IM, 125 mg, Q6H amLODIPine, 10 mg, DAILY aspirin, 81 mg, DAILY atorvastatin, 20 mg, QHS carvediloL, 37.5 mg, BID MEALS melatonin, 3 mg, QHS cyclopentolate, 1 Drop, TID prednisoLONE acetate, 1 Drop, Q2H WHILE AWAKE docusate, 100 mg, DAILY famotidine, 20 mg, BID hydrALAZINE, 25 mg, Q6H lisinopriL, 40 mg, DAILY polyethylene glycol (MIRALAX, CLEARLAX, HEALTHYLAX) oral powder, 17 g, BID chlorhexidine, 15 mL, Q6H heparin (porcine) 5,000 units subcutaneous injection, 5,000 Units, Q12H IV meds:lactated ringers PRN meds:dextrose 50 % in water (D50W), 25 mL, PRN glucagon, 1 mg, PRN FENTanyl PF, 25 mcg, Q5MIN PRN ondansetron, 4 mg, PRN labetaloL, 10 mg, Q30MIN PRN acetaminophen, 650 mg, Q4HPRN ASSESSMENT and PLAN Problem List: Uncontrolled type 2 diabetes mellitus A1c of 8.2%, complicated by CAD Steroid induced hyperglycemia Stress dose induced hyperglycemia 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 Patient has been getting high dose steroids starting 02/02. In settings of high dose steroids hyperglycemia has been worsening. Endocrinology is consulted for uncontrolled type 2 diabetes mellitus and hyperglycemia with high-dose steroids. BG & Insulin Data: BG trend: 300s mg/dL TDD of insulin: 82 units Scheduled Insulin: 66 units Diet: Diabetic Steroids: IV solu-Medrol 125mg q6H BG Range Above Goal: 24 hour TDD requirements were 82 units with BG readings remaining above the target range of 140 - 180 mg/dL. We will therefore increase TDD by 20%. New TDD: 100 units Due to steroids basal 40%, bolus 60% RECOMMENDATIONS: Lantus 40 units daily - Give half dose if patient NPO or if BG 80 - 120 mg/dL. - Hold dose if BG <80 mg/dL. Lispro 20 units TID meals - Give half dose if patient eats less than half meal OR if BG 80 - 120 mg/dL. - HOLD DOSE if NPO or BG < 80 mg/dL. Please give at end of meal if not sure if patient will eat. Sliding scale, SSI 1:20 - Give lispro sliding scale Q4H; may give even if NPO. Blood sugar 140 to 160, give 1 unit. Blood sugar 161 to 180, give 2 units. Blood sugar 181 to 200, give 3 units. Blood sugar 201 to 220, give 4 units. Blood sugar 221 to 240, give 5 units. Blood sugar 241 to 260, give 6 units. Blood sugar 261 to 280, give 7 units. Blood sugar 281 to 300, give 8 units. Blood sugar greater than 300, give 9 units, recheck in 3 hours and cover again with sliding scale. Other acute issues per primary - Case seen and discussed with Dr. Smith. Rell Grande MD Endocrinology Fellow Associated attestation - Elke Smith MD - 02/05/2024 8:45 PM CDT I saw and evaluated Ya Francis III with Dr. Grande on 02/05/24 and actively participated in medical decision making. I reviewed the note and agree with the findings and the plan of care as documented in the note and made appropriate addendums where necessary. Elke Smith MD [facility] Division of Endocrinology [facility] 2024-01-31 10:53:00 Associated Order(s): CONSULT ADULT PHYSICAL THERAPY 01/31/2024 3:55 PM Physical therapy note: Duplicate consult. Kurt Orosco PT, DPT, CCS Board-Certified Clinical Specialist in Cardiovascular and Pulmonary Physical Therapy [facility] 2024-01-29 07:31:00 Associated Order(s): CONSULT OPHTHALMOLOGY Images from the original note were not included. Department of Ophthalmology and Visual Services Consult 01/29/2024 07:31 - Mike Francis III - [id number] Date of Service: 01/29/2024 07:31 Warehouse Pricing And Inventory Clerk: Tammi Chauhan MD Reason for Consult: L eye pain worsening CC / HPI 48 year old male seen by ophthalmology for CC of left eye pain Patient reports worsening of left eye pain since October. Patient has used prednisolone, gatifloxacin, and besifloxacin (last used 01/22/24). Eye itches and hurts & starting 01/24/24, patient could not see much out of the eye. Reports clear/white discharge and floaters. Uveitis history Pertinent Ocular history POH: no h/o POSH: no h/o complicated CE/IOL , no retino-vascular surgery Family history: no h/o of rheumatoid arthritis, sarcoidosis, ankylosing spondylitis, SLE, inflammatory bowel diseases, Behcet disease Constitutional: fever and night sweats since Tues, 10 lb weight loss in 2 months (intentional), weakness for 2 years and worsened following seizure ENT and Head: denies tinnitus or lumps in neck; unsure if headaches as well or just eye pain, has neck stiffness (has neck problems) Respiratory: no risk of TB exposure, has been coughing since off ventilator 3 days Cardiovascular: denies h/o vasculitis or myocarditis Gastrointestinal: denies diarrhea or bloody stools or worms Musculoskeletal: denies back stiffness and joint stiffness in the morning for >30mins (all the time, not just morning) Skin: denies rashes, or depigmentation spots; has tattoos with no elevation Genitourinary: denies genital ulcers or hematuria Insect bites: mosquitos Travel: denies recent international travel Animal exposure: has service dog Recent Immunization/immunotherapy: NA Sexual history: No high-risk behavior Social history: denies smoking or consumption of alcohol or drug abuse; quit smoking 2 years ago Ocular ROS: Contact lens wearer - No Trauma to the eye - No Change of vision - Yes Presbyopia - No Diplopia - Yes prior to vision loss Photophobia - Yes Photopsia and floaters - chronic floaters Eye pain - yes Discharge - tearing Redness - yes Past History Past Medical History: Diagnosis Date CAD (coronary artery disease) HLD (hyperlipidemia) HTN (hypertension) Pre-diabetes Ocular History See HPI Ocular Family History See HPI Ocular Medications See HPI Medications Current Facility-Administered Medications: atorvastatin (LIPITOR) tablet 10 mg, 10 mg, Oral, QHS, Patel, Kike Pal, MBBS, 10 mg at 01/28/242054 carvedilol (COREG) 1.25 mg/mL oral suspension 37.5 mg, 37.5 mg, Oral, BID MEALS, Patel, Kike Pal, MBBS, 37.5 mg at 01/28/24 173 docusate (COLACE) 50 mg/5 mL solution 100 mg, 100 mg, Oral, DAILY, Gaviota Pritchard, MBBS famotidine (PEPCID) 40 mg/5 mL (8 mg/mL) suspension 20 mg, 20 mg, Oral, BID, Gaviota Pritchard, MBBS, 20 mg at 01/28/242135 gabapentin (NEURONTIN) 300 mg/6 mL oral solution 300 mg, 300 mg, Oral, TID, Gaviota Pritchard, MBBS, 300 mg at 01/28/242135 hydrALAZINE (APRESOLINE) tablet 25 mg, 25 mg, Oral, Q6H, Patel, Kike Pal, MBBS, 25 mg at 01/29/24 06 lacosamide (VIMPAT) tablet 150 mg, 150 mg, Oral, BID, Patel, Kike Pal, MBBS, 150 mg at 01/28/242055 moxifloxacin (VIGAMOX) 0.5 % ophthalmic drops 1 Drop, 1 Drop, Left Eye, TID, Macho, Gaviota, GRANTBS, 1 Drop at 01/28/242136 divalproex ER (DEPAKOTE ER) 24 hr tablet 750 mg, 750 mg, Oral, TID, Mirna Leung MBBS, 750 mg at 01/28/242054 hydralAZINE (APRESOLINE) injection 10 mg, 10 mg, Slow IV Push, Q30MIN PRN, Stefany Chan MBBS labetaloL (NORMODYNE) 5 mg/mL injection 10 mg, 10 mg, Slow IV Push, Q30MIN PRN, Stefany Chan MBBS, 10 mg at 01/26/24 020 lisinopriL (PRINIVIL,ZESTRIL) tablet 40 mg, 40 mg, Oral, DAILY, Demetrio Rinaldi MBBS, 40 mg at 01/28/24901 polyethylene glycol 3350 powder 17 g, 17 g, Oral, BID, Demetrio Rinaldi MBBS, 17 g at 01/27/242036 acetaminophen (TYLENOL) 160 mg/5 mL oral liquid 650 mg, 650 mg, Enteral, Q4HPRN, Ankitaem, Demetrio, GRANTBS, 650 mg at 01/28/24 1627 amLODIPine (NORVASC) tablet 10 mg, 10 mg, Enteral, DAILY, Mirna Leung MBBS, 10 mg at 01/28/24 0902 chlorhexidine (PERIDEX) 0.12 % mouthwash 15 mL, 15 mL, Oral (Swish And Spit Out), Q6H, Mirna Leung MBBS, 15 mL at 01/28/24 1256 dextrose 50 % in water (D50W) injection 25 mL, 25 mL, Slow IV Push, PRN, Mirna Leung MBBS glucagon (GLUCAGEN DIAGNOSTIC KIT) injection 1 mg, 1 mg, Intramuscular, PRN, Xochitl, Sanchez Wajih, MBBS heparin (porcine) injection 5,000 Units, 5,000 Units, Subcutaneous, Q12H, Mirna Leung MBBS, 5,000 Units at 01/28/242055 NaCl 0.9% (NS) IV infusion 1,000 mL, 1,000 mL, IV Infusion, CONTINUOUS, Mirna Leung MBBS, Last Rate: 42 mL/hr at 01/26/24 1018, 1,000 mL at 01/26/24 1018 Sliding Scale Insulin - Lispro (HumaLOG), , Subcutaneous, TID MEALS+HS, Mirna Leung MBBS, 1 Units at 01/29/24 0153 Allergies Allergies Allergen Reactions Shellfish Derived Anaphylaxis Keppra [Levetiracetam] Hallucinations Onion Other - See comments Causes gas/bloating Physical Exam BP (!) 157/86 | Pulse 68 | Temp 36.7 ?C (98.1 ?F) | Resp 19 | Ht 1.905 m (6' 3") | Wt 131.9 kg (290 lb 12.6 oz) | SpO2 97% | BMI 36.35 kg/m? Mental Status Oriented to Time, Place & Person: No, oriented to person, place, and situation (but says its 2018) Mood, Affect: Normal Visual Acuity: OD: 20/200 with correction/glasses, 20/50 PH, near card OS: hand motions Intraocular Pressure: Patient administered 1 drop of proparacaine into each eye. OD: 11 OS: 13 Pupils: OD: dark: 3 mm light: 2 mm rAPD: no OS: dark: 3 mm light: 3 mm rAPD: yes caponizer test: no desaturation and Color Plates: 6/12 OD, unable to assess due to poor vision OS Motility: Restricted, -1 supraduction deficit possibly due to effort/participation OD Restricted, -3 in all quadrants OS Visual Field: Right homonymous heminoapsia OPH Exam: Slit Light Exam OD: External: wnl, no edema, erythema, tenderness Lids and Lashes: no ptosis, wnl Conjunctiva/Sclera: white, not injected Cornea: clear Anterior Chamber: deep and quiet Iris: no lesions Lens: 2+ NS Anterior Vitreous: wnl OS: External: wnl, no edema, erythema, tenderness Lids and Lashes: ptosis likely mechanical due to edema Conjunctiva/Sclera: 360 3+ chemosis, 1+ injection Cornea: 1+ edema, fine KPs Anterior Chamber: 1+ cell Iris: no lesions Lens: 2+ NS Anterior Vitreous: 3+ cell Dilated Fundus Exam: Patient dilated with 1 drop of 2.5% phenylephrine and 1% tropicamide into each eye at 7:31 AM. OD: Optic Nerve: pink and sharp C/D: 0.3 Macula: attached Vessels: normal caliber Periphery: no lesions, attached Vitreous: clear OS: Optic Nerve: optic nerve head infiltrate with yellow/white bumpy appearance Macula: attached Vessels: normal caliber Periphery: no lesions, attached Vitreous: clear Labs reviewed Radiology: Hospital Encounter on 01/23/24 XR KUB Narrative EXAM: XR KUB HISTORY: 48 years-old Male; clear OGT . TECHNIQUE: Frontal views of the abdomen and pelvis COMPARISON: Same day chest x-ray Impression FINDINGS/IMPRESSION: An endogastric tube tip projects over the gastric fundus coiling in the fundus portion of the stomach. Nonobstructive bowel gas pattern. No abnormal calcifications or acute osseous abnormalities are detected. No acute osseous abnormality. Trace left basilar atelectasis. Preliminary Report Dictated by Resident: Nicole Ying MD., have reviewed this study and agree with the above report. CT HEAD WO CONTRAST Narrative CT HEAD WO CONTRAST HISTORY: seizure COMPARISON: CT head on 03/20/2023 and 05/05/2022. MR brain on 12/08/2023. TECHNIQUE: Axial CT of the head without contrast was performed. Coronal and sagittal reformatted images were generated. FINDINGS: The ventricles and cerebral sulci are prominent but compatible with degree of cerebral volume loss. No hydrocephalus, midline shift or pathological extra-axial fluid collection is present. The basal cisterns are unremarkable. There is no acute intracranial hemorrhage or significant mass effect. Periventricular and deep white matter hypodensities are nonspecific but may represent small vessel ischemic changes. The clements-white matter differentiation is preserved. Moderate opacification of the ethmoid, sphenoid and maxillary sinuses. The mastoid air cells are clear. Remote right frontal craniotomy is again seen. The central skull base is unremarkable. Impression No acute intracranial abnormality. Preliminary Report Dictated by Resident: Marco A Emery I, David Villalba MD., have reviewed this study and agree with the above report. X-ray chest 1 view Narrative Study: Single view chest. Ordering Physician: MIRNA HURLEY Date: 01/23/2024 1:15 AM History:Intubated, respiratory failure. COMPARISON: 03/21/2023 Findings: Single frontal view chest demonstrates a normal heart size. Small pleural effusions are identified. No infiltrate or pneumothorax is present. The endotracheal tube terminates 2.5 cm above the reed. The esophagogastric tube courses below the diaphragm. The right internal jugular venous catheter terminates over the distal superior vena cava. Impression 1. Small pleural effusions are present with bibasilar atelectasis. 2. Support line and tubes are present as above. 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 Considering being on rituximab for primary angiitis for HEALTH POLICY ANALYST, possibly infectious or inflammatory etiology affecting the anterior part of the eye and the optic nerve with infiltrate. - VA 20/50 OD PH near card, Hand motion OS, IOP wnl, RAPD OS - Anterior exam: likely mechanical ptosis, 360 3+ chemosis, 1+ injection, 1+ corneal edema, fine Kps, 1+ cell AC, 3+ cell anterior vitreous OS - DFE: optic nerve head infiltrate with white/yellow bumpy appearance OS - Differentials include: infectious (bacterial, fungal, TB, syphilis, toxo, HIV, viral) vs. Inflammatory (sarcoidosis, ANCA, lupus, GPA, HLA B27, behcet) - Anterior chamber tap performed - Discussed with ID and decided to prioritize results for bacterial, fungal, AFB culture of AC and potentially collect vitreous samples for other differentials - Discussed with ID to hold topical abx to improve sample yield Recommendations - Follow up with MRI brain and orbits with and without contrast - Start prednisolone acetate 1% q2h left eye while awake; hold abx drop - Start cyclogyl 1% TID left eye - Recommend ordering JULI, lysozyme, toxo IgM - Follow up AC tap (bacterial, fungal, AFB) - Follow up LP results - ophthalmology will continue to follow The management plan was discussed with the patient and the consulting team. This note is preliminary. The plan of care will not be final until the faculty attestation is included. Seen and discussed with Dr. Still, PGY-4 Seen and discussed with Dr. Mcmahan, faculty. Tammi Chauhan MD Ophthalmology, PGY-2 Associated attestation - Paco Mcmahan MD - 01/31/2024 9:20 AM CDT I discussed and examined the patient with resident Dr. Chauhan on 01/29/2024. I agree with the resident note as written. 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 In addition, the patient is quite somnolent so history was gathered from his partner in the room. She reports he has been fighting off an eye infection for the last 3 months with the help of an outside oil expeller operator. He has been on several antibiotic eye drops and steroids which all improve his symptoms however they return within 3 days of stopping therapy. Most recently he finished antibiotics a few days prior to admission. He is currently admitted due to status epilepticus from his HEALTH POLICY ANALYST vasculitis. He has pain, swelling, redness and vision loss in his L eye. He also has some chills and night sweats, as well as around 10 lbs of unintentional weight loss over the past 3 months. [place] with several animals including chickens w/ new chicks, a pig, several outdoor dogs and his service dog. The pt has minimal contact with the outside dogs. They use well water for bathing and cooking, drinks bottled water exclusively though. Past Histories: Patient has a past medical history of CAD (coronary artery disease), HLD (hyperlipidemia), HTN (hypertension), and Pre-diabetes. Patient has a past surgical history that includes craniotomy biopsy brain (shx) (Right, 02/12/2022). Patient reports that he has quit smoking. His smoking use included cigarettes. He has never been exposed to tobacco smoke. He has quit using smokeless tobacco. He reports that he does not drink alcohol and does not use drugs. Patient family history includes Coronary Heart Disease in his unknown relative; Stroke in his father. ? Current Facility-Administered Medications: atorvastatin (LIPITOR) tablet 10 mg, 10 mg, Oral, QHS, Patel, Kike Pal, MBBS, 10 mg at 01/27/242036 carvedilol (COREG) 1.25 mg/mL oral suspension 37.5 mg, 37.5 mg, Oral, BID MEALS, Patel, Kike Pal, MBBS, 37.5 mg at 01/28/24902 docusate (COLACE) 50 mg/5 mL solution 100 mg, 100 mg, Oral, DAILY, Macho Gaviota, MBBS famotidine (PEPCID) 40 mg/5 mL (8 mg/mL) suspension 20 mg, 20 mg, Oral, BID, Matcheswalkathi, Gaviota, MBBS, 20 mg at 01/28/24903 gabapentin (NEURONTIN) 300 mg/6 mL oral solution 300 mg, 300 mg, Oral, TID, Isaurowalkathi, Gaviota, MBBS, 300 mg at 01/28/24903 hydrALAZINE (APRESOLINE) tablet 25 mg, 25 mg, Oral, Q6H, Patel, Kike Pal, MBBS, 25 mg at 01/28/24 06 lacosamide (VIMPAT) tablet 150 mg, 150 mg, Oral, BID, Patel, Kike Pal, MBBS, 150 mg at 01/28/24 09 moxifloxacin (VIGAMOX) 0.5 % ophthalmic drops 1 Drop, 1 Drop, Left Eye, TID, IsaurowallaGaviota, GRANTBS, 1 Drop at 01/28/24 0905 divalproex ER (DEPAKOTE ER) 24 hr tablet 750 mg, 750 mg, Oral, TID, Mirna Leung MBBS, 750 mg at 01/28/24 0901 hydralAZINE (APRESOLINE) injection 10 mg, 10 mg, Slow IV Push, Q30MIN PRN, Stefany Chan, REMIGIO labetaloL (NORMODYNE) 5 mg/mL injection 10 mg, 10 mg, Slow IV Push, Q30MIN PRN, Stefany Chan, REMIGIO, 10 mg at 01/26/24 0204 lisinopriL (PRINIVIL,ZESTRIL) tablet 40 mg, 40 mg, Oral, DAILY, Ankitaem, Demetrio, GRANTBS, 40 mg at 01/28/24901 polyethylene glycol 3350 powder 17 g, 17 g, Oral, BID, Eljoseem, Demetrio, MBBS, 17 g at 01/27/242036 acetaminophen (TYLENOL) 160 mg/5 mL oral liquid 650 mg, 650 mg, Enteral, Q4HPRN, Ankitaem, Genesisb, MBBS, 650 mg at 01/28/24905 amLODIPine (NORVASC) tablet 10 mg, 10 mg, Enteral, DAILY, Mirna Leung MBBS, 10 mg at 01/28/24 09 chlorhexidine (PERIDEX) 0.12 % mouthwash 15 mL, 15 mL, Oral (Swish And Spit Out), Q6H, Mirna Leung MBBS, 15 mL at 01/28/24 0610 dextrose 50 % in water (D50W) injection 25 mL, 25 mL, Slow IV Push, PRN, Mirna Leung MBBS glucagon (GLUCAGEN DIAGNOSTIC KIT) injection 1 mg, 1 mg, Intramuscular, PRN, Mirna Leung MBBS heparin (porcine) injection 5,000 Units, 5,000 Units, Subcutaneous, Q12H, Mirna Leung MBBS, 5,000 Units at 01/28/24 0904 NaCl 0.9% (NS) IV infusion 1,000 mL, 1,000 mL, IV Infusion, CONTINUOUS, Mirna Leung MBBS, Last Rate: 42 mL/hr at 01/26/24 1018, 1,000 mL at 01/26/24 1018 Sliding Scale Insulin - Lispro (HumaLOG), , Subcutaneous, TID MEALS+HS, Mirna Leung MBBS, 1 Units at 01/28/24 0922 ? Allergies: is allergic to shellfish derived, keppra [levetiracetam], and onion. Objective Physical Examination: Vitals: 01/28/24 0003 01/28/24 0151 01/28/24 0326 01/28/24 0716 BP: (!) 150/94 (!) 154/93 (!) 157/90 BP Location: Left arm Patient Position: Sitting Pulse: 88 74 77 74 Resp: 18 18 18 16 Temp: 36.8 ?C (98.3 ?F) 36.9 ?C (98.4 ?F) 37.4 ?C (99.3 ?F) TempSrc: Tympanic SpO2: 94% 98% 94% 93% Weight: Height: General: aox4, nad HEENT: L orbit edematous, erythematous, with periocular swelling, ptosis, and visual acuity loss, R eye normal GI: abd soft, nd, nttp MSK: ngd Ext: no edema Skin: no rash on visible skin Neuro: no obvious deficits Psych: alert & cooperative Antimicrobial Hx: Current: Moxifloxacin eye drops Previous: multiple other FQ eye drops Labs: (most recent, double check dates): Chemistry 01/27/2024 CBC 01/27/2024 LFTs 01/26/2024 Coags, Infl Mrks 136 101 13 197 (H) 7.49 11.2 (L) 317 AST 35 ALT 19 INR - PTT - 3.5 30 0.65 34.0 (L) AlkP 91 T Sean 0.6 LA 1.53 ESR 4 Ca 8.6 Mg 1.9 ANC 3.83 EOS 0.23 Prot 6.6 Alb 3.5 PrCal 0.03 CRP 0.8 (H) Microbiology: No results found for the last 90 days. Relevant Radiology: reviewed Assessment & Plan Undifferentiated L Ocular Infection vs inflammatory disorder Pt with unusual waxing and waning eye infection/inflammation over last 3 months Due to rituximab therapy, ddx is broad Feel the steroid drops used have allowed this infection to progress for longer than would otherwise be possible without significant symptoms Concern for NTM infection or fungal infection which would not be covered by FQs and would be less likely to have progressed over 3 months than bacterial corneal infection Will initiate broad infectious workup as outlined below and would appreciate advice from our ophtho colleagues with a detailed retinal exam as well as vitreal tap if possible Notably, most HEALTH POLICY ANALYST vasculitis are caused by atypical infections and this patient's was determined 2 years ago to be primary and he had similar L eye symptoms at the time- may be from vasculitis and alternatively, his vasculitis may be from an infection which is now revealing itself again Would request rpt MR imaging of brain and orbits to better characterize the extent of inflammation Complicating Conditions: 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 seizures and status epilepticus now resolved DM2 - A1C 8.2 (H) 01/23/2024 CAD HTN/HLD Recommendation summary: Appreciate Ophtho input Vitreal tap if possible with bacterial (aerobic+anaerobic), fungal, AFB cxs and Toxo PCR if indicated on exam Hold abx/steroid drops if possible New MRI brain and orbit w/ and w/o contrast Lumbar puncture with OP Send for cell count+diff, glucose, protein, histoplasma and coccidioides abs, MTB PCR and adenosine deaminase AFB blood cxs Check new Quanterferon gold, syphilis IgG/IgM, HIV, toxo abs Send fungal labs: Histoplasma urinary/serum antigen Coccidioides Abs reflex panel: [facility] [id number] (1,3)- Cpbm-L-Ocvvwf serum (Fungitell): [facility] [id number] Aspergillus Galactomannan serum: [facility] [id number] Thank you for this fascinating consult, we will continue to follow Pt discussed with ID faculty. Aryan Gallego M.D. Dept of Infectious Diseases Fellow, PGY-4 Associated attestation - Liu Flower MD - 01/31/2024 11:05 AM CDT I personally examined the patient on 01/28/24 and agree with the note as written by: Aryan Gallego MD. I actively participated in the decision-making process. Please see the housestaff's note for additional details. Mr. 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 Appreciate ophtho and neuro input. Briefly, we need to prioritize a timely and exhaustive diagnostic strategy including neuroimaging, serologic assays, vitreal fluid, and cerebrospinal fluid. Given suspected recurrence, we are concerned that this pt actually has secondary HEALTH POLICY ANALYST vasculitis, not primary disease. Based on chronicity, will hold antimicrobials for now to assist with diagnostic yield especially since ocular fluid volume is likely to be extremely low. Additionally, the DDx features many atypical pathogens. Non-infectious etiologies do feature on the DDx including lymphoma, ocular involvement of the primary HEALTH POLICY ANALYST vasculitis, ocular sarcoidosis, or another autoimmune phenomenon. [facility] 2024-01-26 11:47:00 Associated Order(s): CONSULT SPEECH Speech-Language Pathology Clinical Swallow Evaluation 01/26/2024 Mike Francis III : 1975 Age/Sex: 48 year old male Time IN/OUT: [id number] Referring Physician: Dustin Date of Referral: 01/25/2024 Reason for Referral: dysphagia s/p extubation Date of Admission/Onset: 01/23/2024 SUBJECTIVE: Patient asleep upon CUFFING MACHINE OPERATOR arrival, slow to arouse but eventually fully awake and agreed to participate. present. OBJECTIVE: is being seen for a clinical swallow evaluation. 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 Of note, patient was intubated on 01/22 and extubated on 01/24. Please see chart for more details. Pertinent Imaging: XR KUB Result Date: 01/25/2024 FINDINGS/IMPRESSION: An endogastric tube tip projects over the gastric fundus coiling in the fundus portion of the stomach. Nonobstructive bowel gas pattern. No abnormal calcifications or acute osseous abnormalities are detected. No acute osseous abnormality. Trace left basilar atelectasis. Preliminary Report Dictated by Resident: Fely Wolfe I, Nicole Marcano MD., have reviewed this study and agree with the above report. CT HEAD WO CONTRAST Result Date: 01/23/2024 No acute intracranial abnormality. Preliminary Report Dictated by Resident: Marco A Emery I, David Villalba MD., have reviewed this study and agree with the above report. X-ray chest 1 view Result Date: 01/23/2024 1. Small pleural effusions are present with bibasilar atelectasis. 2. Support line and tubes are present as above. RL: [id number] Previous CUFFING MACHINE OPERATOR Services/Swallow History: Patient seen by this service during a previous admission. CSE completed on 04/01/2022 and he appeared to present with safe, functional swallowing. CUFFING MACHINE OPERATOR rec'd a regular/thin diet, which he appeared to be tolerating on 04/05/2022 and service signed off. He was seen again during an admission and speech-language evaluation completed 05/06/2022, found to have at least mild-moderate expressive and receptive aphasia with possible apraxia of speech component contributing to communication deficits in the setting of HEALTH POLICY ANALYST vasculitis. CUFFING MACHINE OPERATOR rec'd therapy though no follow-up sessions completed. Please see previous notes for more details. Past Medical History: Diagnosis Date CAD (coronary artery disease) HLD (hyperlipidemia) HTN (hypertension) Pre-diabetes Past Surgical History: Procedure Laterality Date CRANIOTOMY BIOPSY BRAIN (SHX) Right 02/12/2022 Surgeon: Preethi Torres MD; Location: [facility] General Behavior: Cooperative Hearing: WFL for speech Respiratory Status: nasal cannula: 4L/min Orientation/Cognition: - Patient oriented to: person; per , patient not oriented at baseline - Response type: verbal - Follows 1-step commands: Yes Current Diet Texture/Means of Nutrition: NPO pending CUFFING MACHINE OPERATOR evaluation Oral Motor Exam Dentition and Oral Cavity: dentate and moist oral mucosa Face impaired function, characterized by ?left facial weakness; ?tremor at times ; ?L eye ptosis Jaw symmetrical at rest Lips impaired function, characterized by asymmetric labial spread and pucker Tongue impaired function, characterized by slightly reduced tongue lateralization bilaterally and reduced protrusion; ?tremors Palate Unable to visualize/assess Vocal Quality dysphonic; ?resonance changes Speech dysarthria CLINICAL SWALLOW EVALUATION Swallows on command: Yes Handles Secretions: Yes Volitional Cough: present Spontaneous Cough: No PO trials were administered by CUFFING MACHINE OPERATOR. Patient was provided with multiple bites/sips of ice chips, slightly thick liquid (1), pudding (4), and regular solid (7) consistencies with the following observations: Oral Stage Anterior leakage of bolus not observed Pocketing of bolus not observed Subjectively prolonged oral phase not observed Oral residue not observed Mastication slow and prolonged Pharyngeal Stage Subjectively reduced laryngeal elevation not observed Coughing or throat clearing not observed Change in voice quality not observed Multiple swallows subjectively not observed Respiratory sufficiency and coordination WFL - no increased work of breathing and/or oxygen sats and respiratory rate remained stable Report of globus sensation no 3 oz water challenge passed Patient/Family/Staff education: Provided verbally. Discussed findings of evaluation, recommendations and CUFFING MACHINE OPERATOR plan of care. Patient/Family goal: safe PO intake ASSESSMENT/IMPRESSIONS: Mike Francis III presents with: Diagnosis: seemingly grossly safe/functional swallow Etiology of suspected dysphagia/Risk factors for dysphagia: s/p extubation; seizures likely 2/2 vasculitis Observations/Complaints: slow/prolonged mastication; otherwise seemingly adequate oral phase; no overt s/sx of aspiration Factors raising concern for aspiration or pharyngeal dysphagia: borderline febrile Suspected risk for aspiration: low Factors increasing risk for aspiration-related respiratory complication such as pneumonia: reduced mobility, dependence on others for oral hygiene and feeding, and impaired cognition Risk for malnutrition/dehydration or not meeting nutritional needs: unknown Additional comments: Patient appears grossly safe to initiate a PO diet as below. He would benefit from at-least 1 additional CUFFING MACHINE OPERATOR session to assess diet tolerance and ensure no further needs. *Note: aspiration cannot be ruled out nor confirmed without instrumental assessment/imaging. Prognosis: fair for safe po intake with adherence to swallow precautions due to above findings. RECOMMENDATIONS/GOALS: Diet: Recommend patient initiate a regular (IDDSI level 7)-textured diet with thin liquids (IDDSI level 0) Precautions: - Swallow Precautions: 1:1 supervision/assist for PO intake, sit fully upright/in chair, small single bites/sips, alternate bites/sips, and remain upright after PO intake - Recommend elevated head of bed and frequent, thorough oral hygiene care. Instrumental Swallow Assessment: - Not indicated at this time. Additional Referrals: - None evident at this time. *May consider evaluation of ?dysphonia/resonance changes Continued CUFFING MACHINE OPERATOR services: Recommend CUFFING MACHINE OPERATOR therapy 2-5x/wk for 15-45 min/session while in-house to address the following goals: Swallowing: - Patient will tolerate the safest, least restricted po diet texture without overt s/sx of aspiration or other negative effects on medical condition Discharge Recommendations: - TBD pending ongoing work-up/progress made while in-house. Genia Brown MS, [facility]-CUFFING MACHINE OPERATOR Speech Language Pathology Office Number: [phone] Pager: [phone] Genia Brown CUFFING MACHINE OPERATOR [facility] 2024-01-25 15:24:00 Associated Order(s): CONSULT ADULT OCCUPATIONAL THERAPY OT GENERAL EVALUATION Consult received via [employer], EMR reviewed and evaluation completed 01/25/24. Patient referred to occupational therapy for evaluation and treatment secondary to Seizures. Therapy in conjunction with A Kwesi, Pt, for pt safety and limited activity tolerance. OT Billing for OT portion only. Patient agreeable to participate in occupational therapy. Discharge Recommendations: Therapy Needs and Potential:- Patient would benefit from continued skilled occupational therapy services to address: Decline in basic activities of daily living, Decline in instrumental activities of daily living, Decline in cognition, Decreased strength, Decreased range of motion, Decreased endurance, Decreased coordination, and Caregiver training - Patient demonstrates good potential to improve and meet therapy goals with further skilled occupational therapy services. - Patient appears motivated to improve their B/IADLs and return to their previous level of function. - Patient demonstrates ability to tolerate at least 30-60 minutes of active participation in occupational therapy. - Patient able to follow commands: 1-step Yes, Multi-step No, Inconsistencies No Challenges to Home Transition:- Requires physical assistance for BADLS - Requires physical assistance for IADLS - Limited caregiver availability - Decreased safety awareness/judgement - Increased risk of falls - Environmental barriers Equipment Recommendations:Bariatric bedside commode, Long handled sponge, Long handled chief marketing officer, and I certify that Mike Francis III is under my care and that I had a [id number] encounter with this patient on: 01/25/24 . The primary reason for the durable medical equipment: Bariatric Bedside Commode. I am recomending that, based on my findings, the following is medically necessary durable medical equipment: 3 in 1 bedside commode. Height: Ht Readings from Last 1 Encounters: 01/23/24 6' 3" (1.905 m) Weight: Wt Readings from Last 1 Encounters: 01/23/24 290 lb 12.6 oz (131.9 kg) Duration of need: 99 months. Patient does not have access to regular toilet facilities because he/she is confined to: A single room. PLAN OF CARE: At least 3x/week Precautions: Weight bearing status: NA General: Fall, Daley, 10 L O2 per n/c, and seizures Bracing: Prevalon boots to BLE Current Occupational Performance and/or Treatment: AM-PAC 6 Clicks (Raw Score 0=Dependent, 24=Independent; Low function Raw Score 0= Dependent, 32=Independent): Raw Score - Daily Activity: 8 T-Scale Score - Daily Activity: 22.87 Feeding: Total Assistance, NPO, not safe to eat due to level of alertness Grooming: Maximum Assistance, Max assist to wash face with washcloth LB Dressing: Total Assistance, No effort to don SEAN socks Toilet Hygiene: Total A; Daley cath Toilet Transfer: NT due to decreased level of alertness; Max A x 2 person anticipated to [facility] Functional Mobility: Supine to sitting EOB with Max A x2. Sitting EOB Min A progressing to SPV, duration of ~10 mins. Sit to stand from EOB using RW Max A x 2 person. Pt not able to progress with steps. Stand to sit EOB with RW Max A. Scooting sated EOB with Max to total Assist. Sitting EOB to supine in bed Max A x2. Repositioning to [facility] Total Assist. Vitals Supine in bed at rest:HR 81-91 bpm, RR 20 bpm, SPO2 97%, BP 185/101, MAP (125) Sitting EOB: BP 164/117 MAP (130) Supine in bed following activity: BP 196/103, MAP (128) Supine in bed after 3 mins resting: BP 185/109, MAP (129) SPO2 and HR stable throughout duration of therapy. Patient/caregiver educated on: AROM, Positioning, Role of OT, and Safety awareness Patient left semireclining in bed with call avila in reach. Spouse present, Prevalon boots donned, SCDs donned and engaged, and nurse updated . Please, see full evaluation below for more detail. OT EVALUATION: 48 year old male Admit date: 01/23/2024 Date of onset: 01/22 Admit Diagnosis: Seizure [R56.9] OT Diagnosis: Impaired BADL independence, Impaired IADL independence, Weakness, Activity intolerance, Decreased endurance, Impaired self-care mobility, Decreased UE Function SEAN, Limited joint ROM, and Impaired cognition PMH: Past Medical History: Diagnosis Date CAD (coronary artery disease) HLD (hyperlipidemia) HTN (hypertension) Pre-diabetes PSH: Past Surgical History: Procedure Laterality Date CRANIOTOMY BIOPSY BRAIN (SHX) Right 02/12/2022 Surgeon: Preethi Torres MD; [facility] PAIN: Denies pain before and after session. OCCUPATIONAL ROLES/HOME ENVIRONMENT: Home environment: Lives with spouse, 14/02 supervision/assistance is available, Mobile Home/Trailer, and Ramp. Bathroom access: Yes Bathroom setup: Shower Occupation(s): Disabled Function prior to admission: Household ambulation, Community ambulation, Independent with BADLs, and Independent with IADLs Suspected ischemic or hemorraghic stroke patient: No Equipment prior to admission: Bedside commode, Long handled chief marketing officer, long handled sponge PERFORMANCE SKILLS/FACTORS: UE Muscle Tone: bilateral Fluctuating UE ROM: bilateral PROM WFL UE Strength: SEAN UE 2+/5 Hand dominance: right Dexterity/Coordination: bilateral Fine motor skills Impaired , bilateral Gross motor skills Impaired , bilateral Finger to nose Impaired , and Rapid alternating movements Impaired Endurance - Sitting: Fair - Standing: Poor+ Sitting Balance - Static: Fair - Dynamic: NT Standing: Balance - Static Poor Dynamic: Poor Dizziness: No Skin Integrity: No breakdown noted, defer full skin assessment to nursing, and High risk for breakdown Sensation: Patient denies numbness and tingling. Oral Motor: Defer to CUFFING MACHINE OPERATOR Communication: Able to verbalize needs Yes Other: Unintelligible speech Vision: WFL No Other: visual loss, glasses or contacts Hearing: good; no issues reported COGNITION: Orientation: person and place Follows Commands: 1-step Yes Multi-step No Inconsistencies Yes Safety Awareness/Judgment: Lacks insight to deficits and Requires frequent cueing PROBLEM LIST: Decreased independence with ADL, Impaired postural control, Decreased functional ROM, Decreased strength/endurance for functional activity, Impaired safety awareness, and Impaired Cognition REHAB POTENTIAL/PROGNOSIS: fair PATIENT/FAMILY GOALS: To return to OF of Independent TREATMENT/INTERVENTION PLAN: Functional motor treatment, Patient/Caregiver Education, Equipment recommendations, Daily living activities, Therapeutic exercises, Neuromuscular Re-Education, Sensory integration, and Cognitive retraining GOAL(S): By discharge, patient will increase independence in daily living skills as follows: 1 Patient will perform 3 in 1 BSC transfer with supervision. 2 Patient will perform face washing with independence. 3 Patient will don/doff shirt with independence using LRAD. 4 Patient will don/doff underwear, pants , or shorts with supervision using LRAD. 5 Patient will increase endurance for functional activity as evidenced by ability to sustain 20 minutes of active participation. 6 Patient/caregiver will verbalize/demonstrate understanding/proficiency in the following home programs: Adaptive equipment , AROM, and General strengthening PATIENT-FAMILY TEACHING Patient provided with preferred teaching of verbal information on AROM, Positioning, Role of OT, and Safety awareness. Shows readiness to learn. Verbal instruction teaching provided. Individual has difficulty reading and needs reinforcement of teaching. ANNALEE Lindsey, [facility] Pager [phone] Total Timed Treatment Codes: 25 Min Total Treatment Time: 40 Min Patient Complexity Level High - An occupational therapy evaluation of high complexity was completed using the above tests and measures. The following information was obtained: An occupational profile and medical and therapy history, including review of medical and/or therapy records and extensive additional review of physical, cognitive, or psychosocial history related to current functional performance, Various standardized and non-standardized assessments were used to identify at least 5 or more performance deficits related to physical, cognitive, or psychosocial skills that result in activity limitations and/or participation restrictions, and Clinical decision-making is of high analytic complexity, which includes an analysis of the patient profile, analysis of data from comprehensive assessment(s), and consideration of multiple treatment options. Patient present with comorbidities that affect occupational performance. Significant modification of tasks or assistance (e.g., physical or verbal) with assessment(s) is necessary to enable patient to complete evaluation component. [facility] 2024-01-25 13:24:00 Associated Order(s): CONSULT ADULT PHYSICAL THERAPY Patient agreeable to working with physical therapy. Patient met semi reclined in bed with vitals as follows HR: 83 bpm, Spo2; 96%, RR: 23 bpm, BP: 188/97 Recommend nursing staff utilize max assist x 2 with bed mobility , sergey macedo with mod assist to max assist ( if patient with increased fatigue use matthew lift) to safely assist patient with mobility out of the bed or chair. PHYSICAL THERAPY EVALUATION Consult received, chart reviewed and evaluation complete this date. Patient is referred to PT for evaluation and treatment. Patient is a 48 year old male who presents to hospital for Seizure [R56.9] . Discharge Recommendations: Therapy Needs and Potential: Patient would benefit from continued physical therapy services to address: decline in bed mobility decline in transfers decline in gait and/or balance decreased strength decreased endurance Patient demonstrates good potential to improve and meet therapy goals with further physical therapy services. Patient appears motivated to improve their functional mobility and return to their previous level of function. Patient demonstrates ability to tolerate atleast 30-60 minutes of physical therapy with active participation. Challenges to Home Transition: increased risk of falls decreased caregiver availability decreased safety awareness environmental barriers Equipment recommendations: To be decided as patient able to tolerate further therapy Current Functional Status and/or Treatment: AM-PAC 6 Clicks (Raw Score 0=Dependent, 24=Independent; Low function Raw Score 0= Dependent, 32=Independent): Raw Score - Basic Mobility : 10 T-Scale Score - Basic Mobility : 28.13 Bed Mobility: Rolling: Maximum Assistance , supine to sit: max assist x 2 with head of the bed elevated. Sitting at the edge of bed: initially max assist and progressed to min assist to supervision with verbal cues for hand placement and technique. Patient tolerated sitting at the edge of bed for ~ 5 min. Scooting in sitting: max assist with verbal cues. Sit to supine: max assist x 2, scooting in supine: max assist x 2 with head of the bed in Trendelenburg position Dizziness No Transfers: Sit to stand: Maximum Assistance x2 using rolling Walker. Stand to sit: Maximum Assistance x2 using rolling Walker. With verbal cues for hand placement and technique Dizziness Yes initially and resolved Ambulation: patient unable to tolerate due to patient not able to advance the lower extremity at this time Dizziness No Therapeutic exercise: instructed patient in the following: ankle pumps, heel slides, hip abduction/adduction, long arc quads 10x After session, patient . Call button provided. RN notified of patient status PLAN OF CARE: While in the hospital, PT will follow patient at least 3 times per week,once or twice a day, per patient's tolerance and needs. See below for complete details. Admit Date: 01/23/2024 Hospital Diagnosis:Seizure [R56.9] PT Diagnosis: Difficulty walking and Weakness Weight Bearing Precaution: NA General Precautions: PPE used:Gloves, General, Fall, Lines/Tubes, IV; peripheral Head of bed 30?,Daley catheter, IV cEEG, oxygen: Nasal canula, icu lines Bracing/Cast present or required:N/A PMH: Past Medical History: Diagnosis Date CAD (coronary artery disease) HLD (hyperlipidemia) HTN (hypertension) Pre-diabetes PSH: Past Surgical History: Procedure Laterality Date CRANIOTOMY BIOPSY BRAIN (SHX) Right 02/12/2022 Surgeon: Preethi Torres MD; Location: [facility] Prior Living Situation: lives with their spouse, in a double wide trailer with ramp access DME: Four wheeled walker with seat Prior level of Mobility: community ambulation Suspected ischemic or hemorraghic stroke:No Subjective: per patient was able to ambulate with walker Patient/Family Goals: to get better Patient/Family verbalizes understanding of condition: Yes PAIN: denies pain before and after session COMMUNICATION Primary Language: [place]i Able to Verbalize needs: Yes however slurred speech noted Vision: patient with central vision per Hearing:good; no issues reported ORIENTATION/COGNITION: Oriented to: person Awake: Yes Alert: Yes however falls asleep Dizzy: Yes initially while standing Follows Commands: Yes 1-Step Yes Multi-Step Yes Inconsistent: No NEUROLOGICAL Light Touch: within functional limits bilateral LE, Tone: normal BALANCE: Sitting: Static: Fair Dynamic: Poor+ Standing: Static: Poor Dynamic: Poor RANGE OF MOTION: within functional limits bilateral LE STRENGTH: RT LE: 3+/5 left LE: 5/5 ENDURANCE: Fair, Nasal canula SKIN INTEGRITY: defer to nursing notes PROBLEM LIST: Decline in bed mobility, Decline in gait, Decline in transfers, Difficulty with stairs, Decreased strength, Decreased endurance, and Decreased balance ASSESSMENT: Patient is a 48 year old male seen secondary to the above listed diagnosis. Patient would benefit from continued PT to address the above listed deficits to maximize independence and safety with functional mobility. Rehabilitation Potential: fair Goals: The following goals are to maximize independence and safety with functional mobility to eventually return to prior living situation and prior functional status. Upon discharge, patient and/or family will demonstrate the followin. Supine-sit: Independent 2. Sit to stand: Minimal Assistance using rolling Walker. Stand to sit: Minimal Assistance using rolling Walker. 3. Independent with ambulation, Feet: 150 using least assistive device. Treatment Plan: Gait training, Therapeutic exercise, Transfer training, Balance training, Bed mobility training, Equipment needs assessment, and Safety education, patient/caregiver education PATIENT EDUCATION: Patient provided with preferred teaching of verbal information on role of PT, plan of care. Shows readiness to learn. Verbal instruction teaching provided. Individual verbalizes understanding of teaching provided. Total Time Tx Codes in Minutes: 23 min Total Treatment Time in Minutes: 40 min Kurt Orosco PT, DPT, CCS Board-Certified Clinical Specialist in Cardiovascular and Pulmonary Physical Therapy [facility] 2023-02-15 12:40:00 Associated Order(s): CONSULT ADULT OCCUPATIONAL THERAPY OT GENERAL EVALUATION Consult received via [employer], EMR reviewed and evaluation completed 02/15/23. Patient referred to occupational therapy for evaluation and treatment secondary to AMS and seizures. Patient agreeable to participate in occupational therapy. Discharge Recommendations: Therapy Needs and Potential:- Patient would benefit from continued skilled occupational therapy services to address: Decline in basic activities of daily living, Decline in instrumental activities of daily living, Decline in cognition, and Decreased endurance - Patient demonstrates good potential to improve and meet therapy goals with further skilled occupational therapy services. - Patient appears motivated to improve their B/IADLs and return to their previous level of function. - Patient demonstrates ability to tolerate at least 30-60 minutes of active participation in occupational therapy. Challenges to Home Transition:- Requires physical assistance for BADLS - Requires physical assistance for IADLS - Decreased safety awareness/judgement - Increased risk of falls Equipment Recommendations: None, patient has or access to necessary equipment PLAN OF CARE: At least 2x/week Precautions: Weight bearing status: NA General: PPE Utilized: Gloves and Surgical mask, Fall, and ICU lines/monitoring Bracing: N/A Current Occupational Performance and/or Treatment: AM-PAC 6 Clicks (Raw Score 0=Dependent, 24=Independent; Low function Raw Score 0= Dependent, 32=Independent): Raw Score - Daily Activity: 18 T-Scale Score - Daily Activity: 38.66 Feeding: Supervision LB Dressing: Minimal Assistance to don underwear, pants, and socks. Extra time and assist to manage fasteners. Noted difficulty managing clothing on R side d/t vision deficits requiring cues to scan to R to appropriately manage/manipulate clothing. Toilet Transfer: Supervision using grab bar Functional Mobility: Supine <> sit independent. Pt tolerates sitting EOB approx 5 min with fluctuating levels of CGA-spv. Sit <> stand spv without AD Pt performs functional ambulation to and from bathroom without AD, cues for pacing and safety. Chair transfer spv without AD Patient/caregiver educated on:Adaptive equipment , ADL training, Compensatory techniques/adaptive strategies, Fall prevention, General strengthening, Role of OT, Safety awareness, and Visual scanning Patient left sitting upright in bedside chair with call avila in reach. Spouse present and Vital signs stable . Please, see full evaluation below for more detail. OT EVALUATION: 47 year old male Admit date: 02/13/2023 Date of onset: 02/13/23 Admit Diagnosis: Altered mental status [R41.82] Seizures [R56.9] OT Diagnosis: Impaired BADL independence, Impaired IADL independence, Decreased endurance, Impaired self-care mobility, and Impaired cognition PMH: Past Medical History: Diagnosis Date CAD (coronary artery disease) HLD (hyperlipidemia) HTN (hypertension) Pre-diabetes PSH: Past Surgical History: Procedure Laterality Date CRANIOTOMY BIOPSY BRAIN (SHX) Right 02/12/2022 Surgeon: Preethi Torres MD; Location: [facility] PAIN: Denies pain before and after session. OCCUPATIONAL ROLES/HOME ENVIRONMENT: Home environment: Lives with spouse, 14/02 supervision/assistance is available, and Single story home. Bathroom access: Yes Bathroom setup: Shower with built in bench Occupation(s): Disabled Function prior to admission: Household ambulation, Community ambulation, and Independent with BADLs, Assist with IADLs Suspected ischemic or hemorraghic stroke patient: No Equipment prior to admission: wheelchair/walker combo, Grab bars, Hand held shower PERFORMANCE SKILLS/FACTORS: UE Muscle Tone: bilateral WNL UE ROM: bilateral AROM WFL UE Strength: SEAN UE WFL Hand dominance: right Dexterity/Coordination: bilateral Fine motor skills Impaired - mild tremors, spouse reports chronic d/t seizure medications Endurance - Sitting: Good Standing: Fair Sitting Balance - Static: Good Dynamic: Fair+ Standing: Balance - Static Fair+ Dynamic: Fair Dizziness: No Skin Integrity: RUE edema Sensation: bilateral Intact to light touch Oral Motor: WFL Communication: Able to verbalize needs Yes Other: N/A Vision: R side visual deficits noted - spouse reports this typically occurs after seizure and resolves within a few days. Hearing: good; no issues reported COGNITION: Spouse reports hx of memory deficits and increasing forgetfulness. Orientation: person, month but not day or year, and situation Follows Commands: 1-step Yes Multi-step Yes Inconsistencies Yes Safety Awareness/Judgment: Lacks insight to deficits and Requires frequent cueing PROBLEM LIST: Decreased independence with ADL, Decreased strength/endurance for functional activity, Impaired safety awareness, and Impaired Cognition REHAB POTENTIAL/PROGNOSIS: good PATIENT/FAMILY GOALS: to get better TREATMENT/INTERVENTION PLAN: Functional motor treatment, Patient/Caregiver Education, Equipment recommendations, Daily living activities, Therapeutic exercises, Neuromuscular Re-Education, and Cognitive retraining GOAL(S): By discharge, patient will increase independence in daily living skills as follows: 1 Patient will perform toilet transfer with independence. 2 Patient will perform LB dressing with independence. 3 Patient will complete grooming tasks with independence while standing at the sink. 4 Patient will complete toileting hygiene, including clothing management, with independence. 5 Patient will increase endurance for functional activity as evidenced by ability to sustain 30 minutes of active participation. 6 Patient/caregiver will verbalize/demonstrate understanding/proficiency in the following home programs: Adaptive equipment , Compensatory techniques/adaptive strategies, Fall prevention, and General strengthening PATIENT-FAMILY TEACHING Patient and Family member provided with preferred teaching of verbal information on Adaptive equipment , ADL training, Compensatory techniques/adaptive strategies, Fall prevention, General strengthening, Role of OT, Safety awareness, and Visual scanning. Shows readiness to learn. Verbal instruction teaching provided. Individual needs reinforcement of teaching. Joshua Rand OTR/Lam, HEALTH POLICY ANALYST Total Timed Treatment Codes: 17 Min Total Treatment Time: 26 Min Patient Complexity Level Moderate - An occupational therapy [...] to enable patient to complete evaluation component. Rufus Rand OT [facility] 2023-02-14 14:25:34 Associated Order(s): CONSULT INFECTIOUS DISEASE [facility] INFECTIOUS DISEASES CONSULTATION NOTE CLS Infectious Diseases Luis Alberto Rosario MD; Brodie Mckeon MD; Enrique Zuniga MD; Cisco Pollock MD; Malik Rich MD; Magdalena Gan MD; Mirna Anne MD; Jhon Miles MD; Frank Alex MD [place] Office: [address], [place] [address] P: / F: [place] Office: [address], [place] [address] P: / F: REQUESTING CLINICIAN: Reji Poon REASON FOR CONSULTATION: Concern for HEALTH POLICY ANALYST infection HISTORY OF PRESENT ILLNESS: Mike John Tito III is a 47 year old male with history of seizure disorder, HEALTH POLICY ANALYST vasculitis who was admitted early this a.m. [...] by confusion. He has not had recent fever. Here, patient was febrile with Tmax of 102.1 ?F on initial evaluation. His fever has now resolved. He has had a normal WBC count. Patient has had HEALTH POLICY ANALYST imaging, which has been reviewed. No culture data is available from this admission. Infectious disease consultation is requested for recommendations on patient's fever. By the time of my evaluation, patient was waking up, although disoriented. REVIEW OF SYSTEMS: Very limited due to patient's limited responses. The pertinent positives and negatives that I could gather are detailed in HPI. PAST MEDICAL HISTORY: Past Medical History: Diagnosis Date CAD (coronary artery disease) HLD (hyperlipidemia) HTN (hypertension) Pre-diabetes PAST SURGICAL HISTORY: Past Surgical History: Procedure Laterality Date CRANIOTOMY BIOPSY BRAIN (SHX) Right 02/12/2022 Surgeon: Preethi Torres MD; Location: [facility] SOCIAL HISTORY: Social History Tobacco Use Smoking status: Former Types: Cigarettes Passive exposure: Never Smokeless tobacco: Former Tobacco comments: Vape low dose nicotene Substance Use Topics Alcohol use: No Drug use: No FAMILY HISTORY: Family History Problem Relation Age of Onset Coronary Heart Disease Unknown Grandmother Stroke Father 60s MEDICATIONS: Current Facility-Administered Medications: acetaminophen (TYLENOL) tablet 650 mg, [...] fluticasone propionate 50 mcg/actuation nasal spray 1 Newton, 1 Newton, Nasal, BID, Sigifredo Boston MD, 1 Newton at 02/14/23 1316 gabapentin (NEURONTIN) capsule 300 [...] 1 mg, Oral, BID, Sigifredo Boston MD ALLERGIES: Allergies Allergen Reactions Shellfish Derived Anaphylaxis Keppra [Levetiracetam] Hallucinations Onion Other - See comments Causes gas/bloating PHYSICAL EXAMINATION: VITALS: Temp: [36.8 ?C (98.2 ?F)-38.9 ?C (102.1 ?F)] 37.2 ?C (99 ?F) Pulse: [60-87] 60 Resp: [13-18] 14 BP: (139-190)/(86-96) 162/90 GEN: Awake and alert; in no obvious distress NECK: Supple LUNGS: Clear to auscultation bilaterally HEART: RRR, no obvious murmurs ABD: Soft, nontender, nondistended EXT: No clubbing, cyanosis, or edema SKIN: No rashes or lesions NEURO: Alert; disoriented; no obvious motor deficits PSYCH: Appropriate affect LABORATORY (Reviewed): Recent pertinent labs reviewed MICROBIOLOGY (Reviewed): There are no current results on file for these tests and/or test for 1 year.QUANTATIVE CULTURE There are no current results on file for these tests and/or test for 1 year.wound culture IMAGING / TESTS (Reviewed): CT HEAD WO CONTRAST Result Date: 02/14/2023 No acute intracranial abnormality. Preliminary Report Dictated by Resident: Fely Wolfe I, David Villalba MD., have reviewed this study and agree with the above report. CT STROKE ANGIOGRAM HEAD Result Date: 02/14/2023 No large vessel occlusion or flow-limiting stenosis identified in the intracranial or cervical vessels. Preliminary Report Dictated by Resident: Liz Peters, Parmjit Arango MD., have reviewed this study and agree with the above report. CT STROKE ANGIOGRAM NECK Result Date: 02/14/2023 No large vessel occlusion or flow-limiting stenosis identified in the intracranial or cervical vessels. Preliminary Report Dictated by Resident: Liz Peters, Parmjit Arango MD., have reviewed this study and agree with the above report. ASSESSMENT: 47 year old male presents with: *Fever, resolved *HEALTH POLICY ANALYST vasculitis *Seizure disorder with breakthrough seizure *Postictal confusion -Patient's fever has resolved. On clinical evaluation, there is no obvious evidence of HEALTH POLICY ANALYST infection or meningitis. He seems to be waking up and improving without antimicrobials. PLAN: -Monitor off antimicrobials. -Given reported history of HEALTH POLICY ANALYST vasculitis, will screen for syphilis. -No obvious indication for LP from ID standpoint currently. -Further recommendations to follow based upon clinical course. Thank you for this consultation; will continue to follow. [facility] 2023-02-14 09:51:00 Associated Order(s): CONSULT NEUROLOGY Neurology Consultation Patient's Name: Mike Francis III Date of : 1975 Age: 47 yrs Date of Admission: 02/13/2023 Date of Service: 02/14/2023 Referring provider: Dr Caldwell Reason for Consultation: Seizure History of Present Illness: 47 yo with history of seizures and HEALTH POLICY ANALYST vasculitis on depakote presenting as a transfer [...] CRANIOTOMY BIOPSY BRAIN (SHX) Right 02/12/2022 Surgeon: Preethi Torres MD; Location: [facility] OR LOCATION Allergies Allergen Reactions Shellfish Derived Anaphylaxis Keppra [Levetiracetam] Hallucinations Onion Other - See comments Causes gas/bloating Medication Administration Record reviewed. Current Facility-Administered Medications: acetaminophen (TYLENOL) tablet 650 mg, [...] mg, 1,750 mg, Oral, BID, Dolores Caldwell NP ferrous sulfate tablet 325 mg, 325 mg, Oral, Q OTHERDAY, Sigifredo Boston MD fluticasone propionate 50 mcg/actuation nasal spray 1 Newton, 1 Newton, Nasal, BID, Sigifredo Boston MD gabapentin (NEURONTIN) [...] not drink alcohol and does not use drugs. Family History: family history includes Coronary Heart Disease in his unknown relative; Stroke in his father. Review of Systems Unable to obtain Vitals: 02/14/23 0800 BP: Pulse: Resp: Temp: 36.8 ?C (98.2 ?F) SpO2: Physical Exam Neurological Exam: General appearance: alert, awake, oriented to self only Head/Eyes: atraumatic, clear cornea, normal conjunctiva/sclera, normocephalic ENT: moist mucosal membranes Neck: full range of motion, supple/no meningismus, no masses or swelling Cardiovascular: regular rate and rhythm Respiratory: aerating well, no distress Abdomen: soft, no distention Extremities: moves all, normal inspection, normal temperature, no edema Musculoskeletal: full range of motion, normal inspection, painless range of motion Skin: dry, intact, normal color, normal temperature Neuro/HEALTH POLICY ANALYST: Mental status: alert, oriented X self. Aphasic and perseverating CN: EOMI, PERRL, CN II-XII intact Reflexes: equivocal toes bilaterally Motor: no motor deficits Sens: no sensory deficits to LT Coord: no cerebellar deficits Gait: unable to be tested secondary to bedrest Diagnostic Studies: Recent Results (from the past 24 hour(s)) MRSA [...] TSH 2.04 0.45 - 4.70 mIU/L Imaging Studies: Neuro-imaging was directly viewed by me, and agree with formal report that notes: Impression: 1. Seizure disorder 2. Post ictal state 3. HEALTH POLICY ANALYST vasculitis 47 yo with HEALTH POLICY ANALYST vasculitis presenting with breakthrough seizure in setting of recent fever. Possible breakthrough due to recent fever/infection. Current exam with aphasia suggestive of possible post ictal state Recommendations: 1. CT head 2. EEG 3. Continue home Depakote 4. Valproic acid level 5. Will follow Thank you for allowing us to participate in the care of your patient. Please do not hesitate to call Neurology with any further questions or changes in neurological status. Duglas Miller MD Neurologist T [facility] [[email or web address]] - Health History and Physical Notes Date/Time Note Provider Source 2024-06-12 18:47:40 See my consult note. Kike Patel MD PGY 3 Department of Neurology [employer] Associated attestation - Mushtaq Singh MD - 06/13/2024 8:49 PM [employer] Mushtaq Singh MD [facility] 2024-02-03 06:45:07 Outpatient Surgery History & Physical 02/03/2024 6:46AM Mike Francis III 1975, 48 year old, Black or , male [id number] Admit type: DSU Location: Attending Surgeon: Carine Bush MD Resident Surgeon: Tanya Ulloa DO Chief Complaint: Orbital inflammation OS History of Present Illness: Orbital pain and severely decreased VA over the last three months. Hx of PACNS treated with Rituximab. Currently treated with IV antibiotics and antifungals as an inpatient awaiting orbital biopsy to guider further treatment. Past Medical History: Diagnosis Date CAD (coronary artery disease) HLD (hyperlipidemia) HTN (hypertension) Pre-diabetes Past Surgical History: Procedure Laterality Date CRANIOTOMY BIOPSY BRAIN (SHX) Right 02/12/2022 Surgeon: Preethi Torres MD; Location: [facility] Current Facility-Administered Medications Medication Dose Route Frequency Last Rate Last Admin amLODIPine (NORVASC) tablet 10 mg 10 mg Enteral DAILY 10 mg at 02/02/24 0816 aspirin chewable tablet 81 mg 81 mg Oral DAILY 81 mg at 02/02/24 0800 atorvastatin (LIPITOR) tablet 20 mg 20 mg Oral QHS 20 mg at 02/02/241950 carvediloL (COREG) tablet 37.5 mg 37.5 mg Oral BID MEALS 37.5 mg at 02/02/24 175 melatonin (MELATIN) tablet 3 mg 3 mg Oral QHS 3 mg at 02/02/241950 doxycycline hyclate (Vibramycin) capsule 100 mg 100 mg Oral Q12HA2 100 mg at 02/03/24 0509 fluconazole (DIFLUCAN) tablet 400 mg 400 mg Oral DAILY 400 mg at 02/02/24 0801 levoFLOXacin (LEVAQUIN) tablet 750 mg 750 mg Oral Q24H ABX 750 mg at 02/02/24 175 insulin glargine (LANTUS U-100) injection 9 Units 9 Units Subcutaneous QHS 9 Units at 02/02/242000 insulin lispro (human) (HumaLOG U-100) injection 2 Units 2 Units Subcutaneous TID MEALS 2 Units at 02/02/241740 cyclopentolate (CYCLOGYL) 1 % ophthalmic drops 1 Drop 1 Drop Left Eye TID 1 Drop at 02/02/241950 prednisoLONE acetate (PRED-FORTE) 1 % ophthalmic suspension drops 1 Drop 1 Drop Left Eye Q2H WHILE AWAKE 1 Drop at 02/03/24 0509 docusate (COLACE) 50 mg/5 mL solution 100 mg 100 mg Oral DAILY 100 mg at 02/02/24 0800 famotidine (PEPCID) 40 mg/5 mL (8 mg/mL) suspension 20 mg 20 mg Oral BID 20 mg at 02/02/24 0816 hydrALAZINE (APRESOLINE) tablet 25 mg 25 mg Oral Q6H 25 mg at 02/03/24 0509 lacosamide (VIMPAT) tablet 150 mg 150 mg Oral BID 150 mg at 02/02/241950 divalproex ER (DEPAKOTE ER) 24 hr tablet 750 mg 750 mg Oral TID 750 mg at 02/02/241950 labetaloL (NORMODYNE) 5 mg/mL injection 10 mg 10 mg Slow IV Push Q30MIN PRN 10 mg at 01/26/24 0204 lisinopriL (PRINIVIL,ZESTRIL) tablet 40 mg 40 mg Oral DAILY 40 mg at 02/02/24 0815 polyethylene glycol 3350 powder 17 g 17 g Oral BID 17 g at 02/02/24 0800 acetaminophen (TYLENOL) 160 mg/5 mL oral liquid 650 mg 650 mg Enteral Q4HPRN 650 mg at 02/02/24 0805 chlorhexidine (PERIDEX) 0.12 % mouthwash 15 mL 15 mL Oral (Swish And Spit Out) Q6H 15 mL at 02/02/24 175 dextrose 50 % in water (D50W) injection 25 mL 25 mL Slow IV Push PRN glucagon (GLUCAGEN DIAGNOSTIC KIT) injection 1 mg 1 mg Intramuscular PRN heparin (porcine) injection 5,000 Units 5,000 Units Subcutaneous Q12H 5,000 Units at 02/02/241950 Sliding Scale Insulin - Lispro (HumaLOG) Subcutaneous TID MEALS+HS 3 Units at 02/02/241999 Shellfish derived, Keppra [levetiracetam], and Onion HEENT: WNL Heart: WNL Lungs: WNL Abdomen: WNL Blood pressure (!) 156/86, pulse 62, temperature 36.2 ?C (97.1 ?F), resp. rate 16, height 1.905 m (6' 3"), weight 131.9 kg (290 lb 12.6 oz), SpO2 98%. Bleeding tendencies: No Pertinent Lab Data: Pertinent physical abnormalities: NLP with motility deficits, vitreitis and significant optic nerve edema and infiltrate Refer to most recent progress note for full eye exam Impression/Diagnosis: Left retrobulbar and perioptic enhancement with extension to the orbital apex Treatment Plan/Procedure: Examination under anesthesia, Left Orbitomy and Orbital / orbital fat / lacrimal gland biopsy and any other indicated biopsies Risks, benefits, and alternatives discussed with patient who voices understanding and wishes to proceed. Consent obtained: Written consent was obtained from patient Physician: Tanya Ulloa, Ophthalmology PGY-4 Associated attestation - Carine Bush MD - 02/03/2024 6:53 AM CDT I personally saw and evaluated patient with Dr. Ulloa and agree with H&P. Carine Bush MD [facility] 2024-02-01 22:12:16 Outpatient Surgery History & Physical 02/01/2024 10:17 PM Mike Francis III 1975, 48 year old, Black or , male [id number] Admit type: DSU Location: Attending Surgeon: Carine Bush MD Resident Surgeon: Tanya Ulloa Chief Complaint: Orbital inflammation OS History of Present Illness: Orbital pain and severely decreased VA over the last three months. Hx of PACNS treated with Rituximab. Currently treated with IV antibiotics and antifungals as an inpatient awaiting orbital biopsy to guider further treatment. Past Medical History: Diagnosis Date CAD (coronary artery disease) HLD (hyperlipidemia) HTN (hypertension) Pre-diabetes Past Surgical History: Procedure Laterality Date CRANIOTOMY BIOPSY BRAIN (SHX) Right 02/12/2022 Surgeon: Preethi Torres MD; Location: [facility] Current Facility-Administered Medications Medication Dose Route Frequency Last Rate Last Admin [START ON 02/02/2024] amLODIPine (NORVASC) tablet 10 mg 10 mg Enteral DAILY aspirin chewable tablet 81 mg 81 mg Oral DAILY 81 mg at 02/01/24 1100 atorvastatin (LIPITOR) tablet 20 mg 20 mg Oral QHS 20 mg at 02/01/242018 carvediloL (COREG) tablet 37.5 mg 37.5 mg Oral BID MEALS 37.5 mg at 02/01/241753 melatonin (MELATIN) tablet 3 mg 3 mg Oral QHS 3 mg at 02/01/242018 doxycycline hyclate (Vibramycin) capsule 100 mg 100 mg Oral Q12HA2 100 mg at 02/01/241753 fluconazole (DIFLUCAN) tablet 400 mg 400 mg Oral DAILY 400 mg at 02/01/24 0846 levoFLOXacin (LEVAQUIN) tablet 750 mg 750 mg Oral Q24H ABX 750 mg at 02/01/241753 insulin glargine (LANTUS U-100) injection 9 Units 9 Units Subcutaneous QHS 9 Units at 02/01/242026 insulin lispro (human) (HumaLOG U-100) injection 2 Units 2 Units Subcutaneous TID MEALS 2 Units at 02/01/24 172 cyclopentolate (CYCLOGYL) 1 % ophthalmic drops 1 Drop 1 Drop Left Eye TID 1 Drop at 02/01/242027 prednisoLONE acetate (PRED-FORTE) 1 % ophthalmic suspension drops 1 Drop 1 Drop Left Eye Q2H WHILE AWAKE 1 Drop at 02/01/242026 docusate (COLACE) 50 mg/5 mL solution 100 mg 100 mg Oral DAILY 100 mg at 02/01/24 0901 famotidine (PEPCID) 40 mg/5 mL (8 mg/mL) suspension 20 mg 20 mg Oral BID 20 mg at 02/01/242018 hydrALAZINE (APRESOLINE) tablet 25 mg 25 mg Oral Q6H 25 mg at 02/01/24 184 lacosamide (VIMPAT) tablet 150 mg 150 mg Oral BID 150 mg at 02/01/242018 divalproex ER (DEPAKOTE ER) 24 hr tablet 750 mg 750 mg Oral TID 750 mg at 02/01/242018 labetaloL (NORMODYNE) 5 mg/mL injection 10 mg 10 mg Slow IV Push Q30MIN PRN 10 mg at 01/26/24 0204 lisinopriL (PRINIVIL,ZESTRIL) tablet 40 mg 40 mg Oral DAILY 40 mg at 02/01/24 0844 polyethylene glycol 3350 powder 17 g 17 g Oral BID 17 g at 02/01/242019 acetaminophen (TYLENOL) 160 mg/5 mL oral liquid 650 mg 650 mg Enteral Q4HPRN 650 mg at 02/01/24 0846 chlorhexidine (PERIDEX) 0.12 % mouthwash 15 mL 15 mL Oral (Swish And Spit Out) Q6H 15 mL at 02/01/24 1754 dextrose 50 % in water (D50W) injection 25 mL 25 mL Slow IV Push PRN glucagon (GLUCAGEN DIAGNOSTIC KIT) injection 1 mg 1 mg Intramuscular PRN heparin (porcine) injection 5,000 Units 5,000 Units Subcutaneous Q12H 5,000 Units at 02/01/242018 Sliding Scale Insulin - Lispro (HumaLOG) Subcutaneous TID MEALS+HS 2 Units at 02/01/242026 Shellfish derived, Keppra [levetiracetam], and Onion HEENT: WNL Heart: WNL Lungs: WNL Abdomen: WNL Blood pressure (!) 150/84, pulse 58, temperature 36.3 ?C (97.3 ?F), resp. rate 16, height 1.905 m (6' 3"), weight 131.9 kg (290 lb 12.6 oz), SpO2 95%. Bleeding tendencies: No Pertinent Lab Data: Pertinent physical abnormalities: NLP with motility deficits, vitreitis and significant optic nerve edema and infiltrate Refer to most recent progress note for full eye exam Impression/Diagnosis: Left retrobulbar and perioptic enhancement with extension to the orbital apex Treatment Plan/Procedure: Left Orbitomy and Orbital Biopsy Risks, benefits, and alternatives discussed with patient who voices understanding and wishes to proceed. Consent obtained: Written consent was obtained from patient Physician: Eulogio House MD Upon further evaluation, to be more specific, lacrimal gland and orbital fat will be biopsied. Upon EUA, other tissue may also be considered for biopsy. Carine Bush MD OPH-OPHTHALMOLOGY STAFF [facility] 2024-01-23 01:25:12 [facility] HISTORY AND PHYSICAL DATE OF SERVICE: 01/23/2024 01:25 CHIEF COMPLAINT: seizures Code status: addressed: full HISTORY OF PRESENT ILLNESS Mike Francis III is a 48 year old male right handed with PMHX of CAD, PACNS (On scheduled rituximab), seizures likely 2/2 vasculitis (on depakote), HTN, HLD, DM (uncontrolled A1C 9.6) and essential tremors came in as a transfer from [facility] for seizures. Pt was in his usual state of health yesterday when his partner found him down in the restroom seizing. As per partnet the seizures lasted for about 5 hours and there were instances when there was either arm or leg shaking. There was no eye deviation or head turning and no urinary or fecal incontinece. Pt was taken to an ER where he was administered 4 mg of ativan and then episode subsided. He was intubated and sedated for airway protection and then subsequently transfer to [facility] [[email or web address]] for further care. Of note pt has PACNS and is on rituximab infusions. Last infusion was on the 01 of December. Post infusion he again had a seizure and was taken to the ER where he was subsequently discharged. 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 Tobacco Use Smoking status: Former Types: Cigarettes Passive exposure: Never Smokeless tobacco: Former Tobacco comments: Vape low dose nicotene Substance and Sexual Activity Alcohol use: No Drug use: No Social Determinants of Health Financial Resource Strain: Low Risk (03/21/2023) Overall Financial Resource Strain (CARDIA) Difficulty of Paying Living Expenses: Not very hard Food Insecurity: No Food Insecurity (03/21/2023) Hunger Vital Sign Worried About Running Out of Food in the Last Year: Never true Ran Out of Food in the Last Year: Never true Transportation Needs: No Transportation Needs (03/21/2023) PRAPARE - Transportation Lack of Transportation (Medical): No Lack of Transportation (Non-Medical): No Physical Activity: Inactive (03/21/2023) Exercise Vital Sign Days of Exercise per Week: 0 days Minutes of Exercise per Session: 0 min Social Connections: Unknown (03/21/2023) Social Connection and Isolation Panel [NHANES] Frequency of Communication with Friends and Family: More than three times a week Marital Status: Housing Stability: Low Risk (03/21/2023) Housing Stability Vital Sign Unable to Pay for Housing in the Last Year: No Number of Places Lived in the Last Year: 1 Unstable Housing in the Last Year: No Reviewed patient's family, surgical and social hx. HOME MEDICATIONS Medications Prior to Admission Medication Sig Dispense Refill Last Dose atorvastatin 20 mg tablet Take 1 tablet by mouth at bedtime. 30 tablet 0 lacosamide 50 mg tablet Take 1 tablet by mouth in the morning and 1 tablet in the evening. 60 tablet 2 amLODIPine 10 mg tablet Take 1 tablet by mouth in the morning. 30 tablet 0 gabapentin 300 mg capsule Take 1 capsule by mouth in the morning and 1 capsule at noon and 1 capsule in the evening. 90 capsule 0 glyBURIDE 5 mg tablet Take 1 tablet by mouth daily with breakfast. 30 tablet 2 hydrALAZINE 25 mg tablet Take 1 tablet by mouth every 6 (six) hours. 30 tablet 0 Taking DIVALPROEX ER 500 mg 24 hr tablet TAKE 4 TABLETS BY MOUTH IN THE MORNING AND 4 TABLETS IN THE EVENING 240 tablet 3 Taking lisinopriL 40 mg tablet Take 1 tablet by mouth in the morning. 30 tablet 11 Taking metFORMIN 1,000 mg tablet Take 1 tablet by mouth in the morning and 1 tablet in the evening. Take with meals. 60 tablet 0 Taking fluticasone propionate (FLONASE ALLERGY RELIEF) 50 mcg/actuation nasal spray Use 1 Newton in each nostril in the morning and 1 Newton in the evening. 16 g 0 Taking carvediloL (COREG) 25 mg tablet Take 1 tablet by mouth in the morning and 1 tablet in the evening. Take with meals. 60 tablet 0 Taking ferrous sulfate 325 mg (65 mg iron) tablet Take 1 tablet by mouth every other day. 15 tablet 0 Taking hydrOXYzine 10 mg tablet Take 1 tablet by mouth every 6 (six) hours as needed for Itching. 90 tablet 2 Taking pantoprazole 40 mg EC tablet Take 1 tablet by mouth in the morning. 30 tablet 5 Taking risperiDONE 1 mg tablet Take 1 tablet by mouth in the morning and 1 tablet in the evening. 60 tablet 5 Taking POTASSIUM-99 ORAL Take 99 mg by mouth daily. Taking MULTIVITS-MINERALS/FA/LYCOPENE (ONE-A-DAY MEN'S MULTIVITAMIN ORAL) Take by mouth. Taking lfrve-2j-drl-epa-fish oil-D3 (FISH OIL-VIT D3) 360 mg-1,200 mg -1,000 unit Cap Take by mouth. Taking HOSPITAL MEDICATIONS Current Facility-Administered Medications Medication Dose Route Frequency Last Rate Last Admin amLODIPine (NORVASC) tablet 10 mg 10 mg Oral DAILY carvedilol (COREG) 1.25 mg/mL oral suspension 12.5 mg 12.5 mg Enteral BID MEALS chlorhexidine (PERIDEX) 0.12 % mouthwash 15 mL 15 mL Oral (Swish And Spit Out) Q6H dextrose 50 % in water (D50W) injection 25 mL 25 mL Slow IV Push PRN divalproex ER (DEPAKOTE ER) 24 hr tablet 2,000 mg 2,000 mg Oral BID famotidine (PEPCID) 40 mg/5 mL (8 mg/mL) suspension 20 mg 20 mg Enteral BID gabapentin (NEURONTIN) capsule 300 mg 300 mg Oral TID glucagon (GLUCAGEN DIAGNOSTIC KIT) injection 1 mg 1 mg Intramuscular PRN heparin (porcine) injection 5,000 Units 5,000 Units Subcutaneous Q12H lacosamide (VIMPAT) tablet 50 mg 50 mg Oral BID sennosides-docusate sodium (SENOKOT-S) 8.6-50 mg per tablet 1 tablet 1 tablet Enteral DAILY Sliding Scale Insulin - Lispro (HumaLOG) Subcutaneous TID MEALS+HS ALLERGY Allergies Allergen Reactions Shellfish Derived Anaphylaxis Keppra [Levetiracetam] Hallucinations Onion Other - See comments Causes gas/bloating REVIEW OF SYSTEMS General: (-) fever, (-) chills, (-) weight change, (-) dizziness, (-) fatigue, (-) change in appetite Skin: (-) rash, (-) lesion HEENT: (-) headache, (-) change in hearing, (-) change in vision, (-) nasal discharge, (-) sore throat Neck: (-) pain, (-) difficulty swallowing, (-) mass Heme: (-) bleeding disorder Resp: (-) cough, (-) shortness of breath, (-) dyspnea on exertion Cardio: (-) chest pain, (-) palpitations, (-) syncope GI: (-) abdominal pain, (-) nausea, (-) vomiting, (-) diarrhea, (-) constipation, (-) melena, (-) hematochezia, (-) hematemesis : (-) dysuria, (-) hematuria, (-) increased frequency, (-) difficulty urinating, (-) difficulty initiating Endo: (-) heat intolerance, (-) diabetes, (-) cold intolerance, (-) polyuria, (-) polydipsia, (-) renal insufficiency, (-) thyroid disease Neuro: See HPI Back: (-) pain, (-)spasms CONTRERAS: (-) muscle pain, (-) joint pain, (-) claudication Psych: (-) anxiety, (-) depression, (-) psychiatric disorder PHYSICAL EXAM BP: -- Temp: -- Temp source: -- Pulse: -- Resp: -- SpO2: -- Height: -- Weight: [1 kg (2 lb 3.3 oz)] BMI (calculated): [0] Vitals: 01/23/24 0100 Weight: (!) 1 kg (2 lb 3.3 oz) No intake or output data in the 24 hours ending 01/23/24 0125 Intubated Patients VENTILATOR SETTINGS: Vitals Ventilation / Pressors Sedation / Paralyzation Mental status: -Level of consciousness - unreactive -No receptive or expressive language FOUR (Full Outline of Unresponsiveness) Score Eye Response 0 Eyelids open or opened, tracking or blinking to command 4 Eyelids open but not tracking 3 Eyelids closed but opens to loud voice 2 Eyelids closed but opens to pain 1 Eyelids remain closed with pain 0 Motor Response 0 Thumbs up, fist, or peace sign to command 4 Localizing to pain 3 Flexion response to pain 2 Extensor posturing 1 No response to pain or generalized myoclonus status epilepticus 0 Brainstem Reflexes 4 Pupil and corneal reflexes present 4 One pupil wide and fixed 3 Pupil or corneal reflexes absent 2 Pupil and corneal reflexes absent 1 Absent pupil, corneal, and cough reflex 0 Respiration 1 Not intubated, regular breathing pattern 4 Not intubated, [place] breathing pattern 3 Not intubated, irregular breathing pattern 2 Breathes above ventilator rate 1 Breathes at ventilator rate or apnea 0 Cranial nerves: II - visual threat - blinks to threat III, IV, - does not track. Oculocephalic reflexes reveal intact motor movements. V - Corneal reflex intact, nares tickling provokes grimace VII - Supraorbital nerve compression yields symmetrical facial grimace VIII - Voice stimulation in ear provokes flinch IX/X - Gag reflex intact XI/XII - Not possible to reliably examine Motor: -muscle tone normal, not atonic, not increased -not following motor commands Sensory: - no withdrawal, on propofol Reflexes: -DTRs symmetrical -Babinski down bilaterally HEENT: pupils equal, round, reactive to light; extraocular movements intact; oropharynx clear; moist mucous membranes Lungs: clear to auscultation bilaterally Cardio: S1, S2 normal Extremities:no cyanosis,clubbing or edema Neck:supple,no carotid bruit,no JVD Abdomen: soft; non-tender; non-distended; normoactive bowel sounds heard LABS No results found for this or any previous visit (from the past 24 hour(s)). STROKE LABS HGB A1C (%) Date Value 05/05/2022 6.7 (H) LDL CHOL (mg/dL) Date Value 05/05/2022 40 [id number] (mg/dL (calc)) Date Value 09/19/2015 66 CHOL (mg/dL) Date Value 05/05/2022 112 (L) CHOLESTEROL, TOTAL-Q (mg/dL) Date Value 09/19/2015 141 TSH (mIU/L) Date Value 11/25/2023 2.27 There are no current results on file for these tests and/or test for 1 year. RADIOLOGY No final results containing an impression from the past 48 hours were found. ASSESSMENT AND PLAN Mike Francis III is a 48 year old male with PMHx as stated above, who presented with seizures 1. Neuro PACNS Seizures Plan: Admission to [facility] Neurochecks Q1H Telemetry 100-140 BP range Check CBC, BMP, Pt, PTT, cardiac enzymes x 1, EKG Fall precautions Consult PT/OT/ Speech pathology/Primary swallowing screen cEEG C/w with home Depakote 2 gm BID and lacosamide 50 mg BID 2. Cardiac HTN HLD - EKG NSR - Troponin f/u - SBP goal 100-140 - c/w carvedilol 12.5 mg BID amlodipine 10 mg 3. Pulmonary Intubated and sedated Plan: CXR ABG PRN Sputum culture Monitor fever 4. GI No active issues Plan: Advance diet as tolerated 6. ID No active issues WC normal - monitor fever 7. Endo DM A1C a year ago 9.6 - SSI - monitor glucose IV access: PIV or central line Infusions: Propofol Bowel regimen: senokot - GI Prophylaxis: famotidine - DVT Prophylaxis: heparin Discussed with Dr. Hurley, neurology faculty. Joyce Leung MD PGY3 Neurology Associated attestation - Mirna Hurley MD - 01/23/2024 9:16 PM CDT The case was discussed with me over phone overnight. I agree with the documented assessment and plan. Mirna Hurley MD Neurocritical Care/Epilepsy Attending [facility] [[email or web address]] Department of Neurology [facility] 2023-03-21 03:42:55 Formatting of this n ote is different from the original. 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 History provided by . She stated that patient [...] palpitation, urinary/GI symptoms, any new onset weakness, myalgias. ED course: Initial vitals: - Blood pressure 178/120, pulse 107, respiratory rate 20, SPO2 95% on room air, temperature 39.2 ?C(102.5 ?F). Labs: - CBC, CMP, magnesium unremarkable, valproic acid levels 13.4(within normal limit), lactic acid 1.18. UA with RBC, no concern for infection, COVID-19 positive. Imaging: - CT head without contrast with no acute intracranial abnormality. Postsurgical changes of right frontal craniotomy, unchanged periventricular and deep white matter changes secondary to known HEALTH POLICY ANALYST vasculitis Intervention: - Neurology was consulted. Ibuprofen 800, normal saline bolus 1 L, IV lacosamide(Vimpat) x1 REVIEW OF SYSTEMS (-)=Negative,(+)=Positive See HPI PAST MEDICAL HISTORY Past Medical History: Diagnosis Date CAD (coronary artery disease) HLD (hyperlipidemia) HTN (hypertension) Pre-diabetes Past Surgical History: Procedure Laterality Date CRANIOTOMY BIOPSY BRAIN (SHX) Right 02/12/2022 Surgeon: Preethi Torres MD; Location: [facility] Family History Problem Relation Age of Onset Coronary Heart Disease Unknown Grandmother Stroke Father 60s ALLERGIES Allergies Allergen Reactions Shellfish Derived Anaphylaxis Keppra [Levetiracetam] Hallucinations Onion Other - See comments Causes gas/bloating MEDICATIONS No current facility-administered medications on file prior to [...] RELIEF) 50 mcg/actuation nasal spray Use 1 Newton in each nostril in the morning and 1 Newton in the evening. 16 g 0 amLODIPine [...] (ONE-A-DAY MEN'S MULTIVITAMIN ORAL) Take by mouth. inpap-3d-uvd-epa-fish oil-D3 (FISH OIL-VIT D3) 360 mg-1,200 mg -1,000 unit Cap Take by mouth. 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 Tobacco Use Smoking status: Former Types: Cigarettes [...] Housing in the Last Year: No PHYSICAL EXAMINATION Vitals: 03/20/23 2200 03/21/23 0030 03/21/23 0038 03/21/23 0100 BP: (!) 157/105 (!) 153/135 (!) 154/72 Pulse: 88 79 68 Resp: 13 20 Temp: 38.4 ?C (101.2 ?F) TempSrc: Oral SpO2: 93% 97% Weight: Height: 1.956 m (6' 5") General: alert and oriented x 2 (person and date/time); responsive, calm, repeating his date of Lungs: clear to auscultation bilaterally Cardio: regular rate and rhythm Abdomen: soft; non-tender; non-distended; normoactive bowel sounds Extremities: no clubbing, cyanosis, or edema LABS - reviewed pertinent labs as below: See HPI IMAGING - reviewed, pertinent results as below: CT head without contrast FINDINGS: Redemonstrated postsurgical changes of right frontal craniotomy. The ventricles and cerebral sulci are unchanged in caliber and configuration. No significant change in the asymmetric dilatation of the left lateral ventricle temporal and occipital horns. No midline shift or pathological extra-axial fluid collection is present. The basal cisterns are unremarkable. No acute intracranial hemorrhage or significant mass effect is visualized. 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 Scattered periventricular and deep white matter hypodensities are nonspecific but likely represent related to the patient's known history of HEALTH POLICY ANALYST vasculitis. The clements-white matter differentiation is preserved. The mastoid air cells and visualized paranasal air sinuses are clear. The calvarium and central skull base are unremarkable. The small area of fat stranding over the location of craniotomy appears to mildly increase compared to the prior indicating nonspecific inflammatory changes. IMPRESSION 1. No acute intracranial abnormality. 2. Postsurgical changes of right frontal craniotomy. 3. Unchanged periventricular and deep white matter changes likely related to the patient's known HEALTH POLICY ANALYST vasculitis. ASSESSMENT/PLAN Mike Francis III is a 48 year old male with PMH as listed above, admitted to the hospital with: Breakthrough seizures COVID-19 infection Primary HEALTH POLICY ANALYST angiitis(biopsy-proven 03/2022) Patient presented with 2 episodes of seizures in [...] COVID-19 guidelines, symptomatic treatment only at this time. - Admit to [facility] -Patient currently n.p.o. as patient appeared confused. Will do bedside swallow in a.m. before starting diet. - Follow-up neurology recommendations -Continue home Depakote 2 g twice daily. - Start Vimpat loading dose 100 mg followed by maintenance 50 mg twice daily - avoid the following medications as they can also lower the seizure threshold: verapamil, diltiazem, imipenem, cefepime, bupropion, lithium, fentanyl, tramadol, meropenem - Patient warned not to drive for 3 months from the last seizure per [place] State Law. Patient was also warned to be careful when swimming alone, climbing ladders or operating heavy machinery and was advised to avoid drinking alcohol, and sleep deprivation or fatigue as this can lower seizure threshold. - Symptomatic treatment for COVID. Monitor closely. Hypertension Hyperlipidemia Diabetes mellitus Coronary artery disease GERD -Continue home medications: Amlodipine 10 mg, Lipitor 20 mg, Coreg 25 mg, gabapentin 300 mg, hydralazine 25 mg every 6 hours, lisinopril 40 mg, risperidone 1 mg twice daily pantoprazole Pain ControlledTylenol Prophylaxis: DVT- enoxaparin Stress Ulcer: pantoprazole Code Status: addressed: DARIAN Virk MD PGY-3 Internal Medicine Associated attestation - Oma Obando MD - 03/21/2023 4:22 AM CDT After discussion with Dr. Virk, patient was examined with the resident. I agree with resident's note, any necessary changes/additions are mentioned below. For full note please refer to resident's note. 48-year-old gentleman admitted to the hospital due to seizures at home, COVID-19 infection, acute metabolic encephalopathy due to seizures. WBC count of 5.93, hemoglobin stable at baseline, electrolytes are within normal limits. Minimally elevated LDH, UA is negative for any signs of infection. CT head was negative for any acute pathology, care has been discussed with neurology. Patient started on Lamictal, continue with Vimpat. Date of service 03/21/2023 Oma Obando MD 03/21/2023 4:14 AM [facility] of General Medicine. [facility] 2023-02-14 01:18:10 Formatting of this n ote is different from the original. [facility] [[email or web address]] Intensive Care History and Physical Date of Service: 02/14/2023 01:19 IMU day: 1 Intubation Day: n/a CHIEF COMPLAINT: Worsening mentation/altered mental status HISTORY OF PRESENT ILLNESS Mike Francis III is a 47 year old male who presented to [facility] with worsening seizure activity and post-ictal worsening lethargy. Request was made for ICU level of care. Transferred here because well known to [facility] [[email or web address] On arrival pt. Is stable, with more forgetfulness being the only presenting concern per . 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 Tobacco Use Smoking status: Former Types: Cigarettes [...] Unstable Housing in the Last Year: No ALLERGIES Allergies Allergen Reactions Shellfish Derived Anaphylaxis Keppra [Levetiracetam] Hallucinations Onion Other - See comments Causes gas/bloating REVIEW OF SYSTEMS (-)=Negative,(+)=Positive Denies N/V/CP/SOB PHYSICAL EXAMINATION Vitals: 02/13/23 2300 02/13/23 2321 02/14/23 0000 BP: (!) 189/95 (!) 190/96 Pulse: 87 70 Resp: 18 13 SpO2: 100% 100% Weight: 120 kg (264 lb 8.8 oz) Height: 1.956 m (6' 5") Expressive difficulty Sleepy on interview Otherwise unremarkable physical exam REVIEW OF DATA No results for input(s): "WBC", "HGB", "MCV", "PLT" in the last 72 hours. EOS x10^3 (10*3/uL) Date Value 01/18/2023 0.08 No results for input(s): "ALB" in the last 72 hours. No results for input(s): "NA", "K", "CL", "TCO2", "AGAP", "BUN", "CREAT", "CA", "PHOS" in the last 72 hours. Invalid input(s): "GLUC" No results for input(s): "ACPH", "ACPCO2", "ACHCO3", "ACO2HB" in the last 72 hours. Recent Labs 03/31/22 1013 TSH 0.76 TSH (mIU/L) Date Value 03/31/2022 0.76 02/13/2022 1.24 ALBUMIN (g/dL) Date Value 01/18/2023 3.9 ALBUMIN-Q (g/dL) Date Value 09/19/2015 4.7 pulmonary function tests: No components found for: "PFT" MICROBIOLOGY Cultures: Antibiotics: Lines/catheters: PIVs RADIOLOGY No final results containing an impression from the past 30 days were found. Problem List: Principal Problem: Altered mental status (02/14/2023) (POA: Yes) Resolved Problems: * No resolved hospital problems. * Assessment/Plan: Mike Francis III is a 47 year old male admitted with altered mental status Neuro Dr. Marcano aware of pt. Chronic HEALTH POLICY ANALYST Vasculitis with seizure disorder Checking basic labs TSH Per , pt. Seizure free since medications given in [facility] ER. Will reordered all meds. Once plan in place, can likely transfer to Floor. Does not appear to be at increased risk of seizures at this point. Resp No issues Cardiovascular HTN is present FEN/GI Stress ulcer prophylaxis: Not indicated Diet plan:Can advance as tolerated ID Presented with a fever- treated symptomatically Will check CBC, see if S/S of infxn, could be driving worsening mental state- no clear source at this time Renal Await labs Heme Checking labs Endo Avoid hyper or hypoglycemia MSK Intact for right now DVT prophylaxis: Heparin SQ for now Dispo:IMU Prognosis:Fair Code Status: Full Sigifredo Boston MD [facility] [[email or web address]] Anesthesiology 02/14/23 1:19 AM [id number]: I spent a total of 40 minutes reviewing the chart and test results, obtaining the history, performing the exam and MDM along with placing orders, charting, and speaking with the patient/family. [facility] Procedure Notes Date/Time Note Provider Source 2024-02-03 07:50:14 Associated Order(s): Intubation Intubation Date/Time: 02/03/2024 7:34 AM Urgency: elective Airway not difficult General Information and Staff Patient location during procedure: OR Performed: resident/DEVIL TENDER Performed by: Aminah Watkins, DEVIL TENDER Authorized by: Adilene Acharya MD Indications and Patient Condition Indications for airway management: anesthesia Spontaneous Ventilation: absent Sedation level: deep Preoxygenated: yes MILS maintained throughout Mask difficulty assessment: 0 - not attempted Final Airway Details Final airway type: supraglottic airway Successful airway: Size 5 Number of attempts at approach: 2 (LMA 4placed-to small.changed to LMA 5) Ventilation between attempts: none Number of other approaches attempted: 0 Additional Comments Smooth, atraumatic, dentition and lips unchanged from pre-op. NACR-NURSE RECREATION TECHNICIAN,CERTIFIED REGISTERED NURSE RECREATION TECHNICIAN [facility] 2024-02-01 17:14:05 Procedure Note Procedure: Tap and Intravitreal injection of ap and Intravitreal injection of Vancomycin 1mg/0.1ml and Ceftazadime 2.25mg/0.1ml and Voriconazole 0.1mg/0.1mL Date of Service: 02/10/2021 Indication: Suspect endophthalmitis Left Eye Surgeon: Dr. Jarrell Fellow: Dr. De Leon Resident: Dr. Knutson Allergy: No Known Allergies Anesthesia: Lidocaine 1% with epinephrine, Route: Subconjunctival The patient agreed to proceed with the procedure, and an informed consent was obtained. A new set of instruments was opened. Eye lashes, eye lids, and ocular surface were prepped with topical betadine according to standard protocol. Topical Proparacaine 1% was applied. Lid speculum was placed in the left eye. Additional topical Betadine was applied to the surface of the eye. 1% lidocaine was injected subconjunctivally and allowed to sit for 15 minutes. A 25-gauge needle on a 1 CC syringe was used to withdraw vitreous fluid, 4mm from limbus superiorly. 0.3 cc of fluid was drawn. 1 attempts were made. Additional topical Betadine was applied to the surface of the eye. Intravitreal medication Vancomycin 1 mg/0.1 mL was injected 4 mm posterior to the limbus into the vitreous cavity using a 30G needle. The same procedure was done for Ceftazidime 2 mg/0.1 mL and Voriconazole 50 mcg/0.1 mL . Patient tolerated the procedure well without complication. Vision was NLP after injection (same as prior to procedure). IOP was 3 with tonopen and retina was atraumatic Education: Patient received written and verbal post procedure care and education. Isaias De Leon Retina fellow [id number] Associated attestation - Any Jarrell MD - 02/01/2024 10:22 PM CDT I have reviewed this patient with Dr. De Leon and I agree with the findings, assessments, and plans, with my revisions and additional details as noted. I actively participated in the decision-making process. Any Jarrell MD [employer] [facility] [[email or web address]] Ophthalmology and Visual Sciences OPH-RETINA SPECIALIST [facility] [[email or web address]] - Health 2024-01-29 16:58:41 Procedure(s): PARACENTESIS OF ANTERIOR CHAMBER, DIAGNOSTIC - OS - LEFT EYE Pre-Procedure Diagnose(s): Panuveitis of left eye Post-Procedure Diagnose(s): Panuveitis of left eye Procedure Note Date of Service: 01/29/2024 Indications: Panuveitis vs Endophthalmitis, OS Allergies: Allergies Allergen Reactions Shellfish Derived Anaphylaxis Keppra [Levetiracetam] Hallucinations Onion Other - See comments Causes gas/bloating Anesthesia: Tetracaine Procedure: Anterior Chamber Aqueous Paracentesis, left eye After discussing risks, benefits and alternatives, the patient signed consent documentation. Topical betadine was applied to the surface of the eye. A lid speculum was placed into the left eye. 0.08 mL of aqueous fluid was removed through a temporal approach using a tuberculin syringe with a 27 G needle. The eye was rinsed with saline. A drop of vigamox was instilled. The anterior chamber remained formed following procedure and intraocular pressure was measured at 10. Patient tolerated the procedure well and visual acuity was at least HM at the conclusion of the procedure. No complications were noted. Plan: Per progress note. Signature: Chai Still MD Associated attestation - Paco Mcmahan MD - 01/31/2024 9:19 AM CDT I was immediately available for the entire procedure. Paco Mcmahan MD Lumber Hacker Department of Ophthalmology & Visual Sciences [facility] 2024-01-29 13:51:57 LUMBAR PUNCTURE PROCEDURE NOTE: Faculty: Dr. Rneteria Indication/Diagnosis: ? HEALTH POLICY ANALYST INFECTION PreProcedure Verification Completed: Yes Site Marking Completed Yes Time Out Completed: Yes Aseptic technique: Betadine Anesthesia: local: 1% lidocaine Opening pressure (in cm H2O): 19.5 Closing pressure (in cm H2O): Not measured Narrative: The patient was placed in the lateral decubitus position. The patient was prepped and draped in a sterile fashion. The skin and subcutaneous tissue were numbed with 1% lidocaine. The spinal needle was inserted into the L3-L4 inner space and CSF was obtained after first attempt/s. 20 cc of fluid was obtained and sent for cell count, chemistry, cultures, cytology and gram stain and other [facility] lab send outs including csf afb, histoplasma and coccidioides abs, MTB PCR, adenosine deaminase, Bartonella PCR. The spinal needle was removed and a sterile dressing was applied. The patient was instructed to lie supine for two hours post procedure. The patient tolerated the procedure well. Complications: None Dr. Renteria, Faculty was immediately available for the procedure, if needed. Gaviota Pritchard Department of Internal medicine PGY2 Neurology Associated attestation - Rocío Renteria MD - 02/03/2024 12:20 PM CDT Rocío Renteria MD, PhD, FAES Professor, Department of Neurology, [facility] [[email or web address]]. Epileptologist PN-NEUROLOGY [facility]
[2024-07-14] MEDS ORDERED: ACETAMINOPHEN 500 MG TAB ONE (23:03)
[2024-07-14 23:52] LABS: SARS-CoV-2 Antigen CONTROL BLUE LINE VIS/BG OK; SARS-CoV-2 Antigen Rapid Res Negative (Negative)
[2024-07-15 00:13] LABS: Absolute Monocytes 0.9 K/uL (0.1-1.3); Absolute Neutrophil 3.4 K/uL (1.8-8.0); Basophils % 0.7 % (0-1.3); Eosinophils % 0.3 % (0-4.4); Hematocrit 38.8 % (39.6-49.0); Hemoglobin 12.6 g/dL (13.6-17.9); Lymphocytes % 19.1 % (15.3-44.8); MCH 30.8 pg (27.0-35.0); MCHC 32.6 g/dL (32.0-36.0); MCV 94.6 fL (80-100); MPV 8.2 fL (7.6-11.3); Monocytes % 17.1 % (3.3-12.3); Neutrophils % 62.8 % (41.7-73.7); Nucleated Red Blood Cells % 0.2 % (0-0); Platelets 205 thou/uL (152-406); Red Cell Distribution Width 15.6 % (12.1-15.2)
[2024-07-15 00:22] LABS: Albumin 3.1 g/dL (3.4-5.0); Albumin/Globulin Ratio 1.1 (1.1-1.8); Anion Gap 8.4 mEq/L (5.0-15.0); Bilirubin Total 0.2 mg/dL (0.2-1.0); Globulin 2.8 g/dL (2.3-3.5); Potassium 3.4 mEq/L (3.5-5.1); Protein, Total 5.9 g/dL (6.4-8.2)
--- NOTE | 2024-07-15 00:44 | ER ---
Nurse's Notes [facility] Name: Mike Francis III Age: 49 yrs Sex: Male : 1975 Arrival Date: 07/14/2024 Time: 22:26 Bed 4 Private MD: Diagnosis: Respiratory syncytial virus as the cause of diseases classified elsewhere;Other specified viral diseases;Fever, unspecified Presentation: 07/14 22:39 Chief complaint: EMS states: Had a seizure in the shower. Did not fall was sitting on vc1 shower chair. Coronavirus screen: Client denies travel out of the [place] in the last 14 days. At this time, the client does not indicate any symptoms associated with coronavirus-19. Ebola Screen: Patient negative for fever greater than or equal to 101.5 degrees Fahrenheit, and additional compatible Ebola Virus Disease symptoms Patient denies exposure to infectious person. Patient denies travel to an Ebola-affected area in the 21 days before illness onset. No symptoms or risks identified at this time. Initial Sepsis Screen: Does the patient meet any 2 criteria? No. Patient's initial sepsis screen is negative. Does the patient have a suspected source of infection? No. Patient's initial sepsis screen is negative. Risk Assessment: Do you want to hurt yourself or someone else? Patient reports no desire to harm self or others. Onset of symptoms was July 14, 2024. Care prior to arrival: Medication(s) given: versed. Activity prior to arrival: None. Mechanism of Injury: No Mechanism of Injury. Transition of care: patient was not received from another setting of care. 22:39 Method Of Arrival: EMS: [facility] 22:39 Acuity: IFEANYI 3 vc1 Triage Assessment: 22:55 General: Appears in no apparent distress. uncomfortable, ill, obese, Behavior is calm, vc1 cooperative, appropriate for age. Pain: Denies pain. EENT: No deficits noted. No signs and/or symptoms were reported regarding the EENT system. Neuro: Level of Consciousness is post ictal, Oriented to person, place. Cardiovascular: Capillary refill < 3 seconds. Respiratory: Airway is patent Respiratory effort is even, unlabored, Respiratory pattern is regular, symmetrical. Derm: Skin is intact, is healthy with good turgor, Skin is dry, Skin is normal, Skin temperature is hot. Historical: - Allergies: 22:49 Keppra; vc1 22:49 SHELLFISH; vc1 - Home Meds: 22:49 amlodipine 10 mg tab 1 tab once daily [Active]; atorvastatin oral [Active]; carvedilol vc1 25 mg Oral tab 1 tab 2 times per day [Active]; divalproex 1750 mg Oral tablet twice a day [Active]; ferrous sulfate 325 mg (65 mg iron) Oral tablet daily [Active]; fluticasone propionate inhalation [Active]; gabapentin 300 mg Oral capsule 3 times per day [Active]; glyburide 5 mg Oral tablet 2 times per day [Active]; hydralazine 25 mg Oral tablet 4 times per day [Active]; hydroxyzine HCl 10 mg Oral tablet as needed for Anxiety [Active]; lacosamide oral [Active]; lisinopril 40 mg Oral tablet daily [Active]; metformin 1 Oral tablet 2 times per day [Active]; pantoprazole oral [Active]; risperidone 1 mg/mL Oral solution 2 times per day [Active]; multivitamin Oral tablet daily [Active]; Potassium Chloride Oral [Active]; - PMHx: 22:49 Autoimmune Encephalitis; brain lesions/swelling of the brain; Depression; TBI; CAD; vc1 Seizure; Chronic pain; CVA; Diabetes - NIDDM; DVT; High Cholesterol; Hypertension; Mild Heart Attack x 2; - PSHx: 22:49 Appendectomy; brain surgery (January 2022); vc1 - Immunization history:: Client reports having NOT received the Covid vaccine. - Infectious Disease History:: Denies. - Social history:: Smoking status: unknown. Screenin:48 [facility] ED Fall Risk Assessment (Adult) History of falling in the last 3 months, vc1 including since admission Yes- fall prone (multiple falls) (3 pts) Confusion or Disorientation No (0 pts) Intoxicated or Sedated Yes (3 pts) Impaired Gait Yes (1 pt) Mobility Assist Device Used No (0 pt) Altered Elimination No (0 pt) Score/Fall Risk Level 3 or more points = High Risk Oriented to surroundings, Maintained a safe environment, Educated pt \T\ family on fall prevention, incl call for assistance when getting out of bed. Abuse screen: Denies threats or abuse. Nutritional screening: No deficits noted. Tuberculosis screening: No symptoms or risk factors identified. Assessment: 23:08 General: Appears in no apparent distress. comfortable, Behavior is calm, cooperative, bm8 appropriate for age. Pain: Complains of pain in head Pain currently is 6 out of 10 on a pain scale. Neuro: Level of Consciousness is awake, alert, obeys commands, Oriented to person, place, time, situation, Appropriate for age. Cardiovascular: Denies chest pain, Capillary refill < 3 seconds in bilateral fingers Patient's skin is warm and dry. Respiratory: Airway is patent Trachea midline Respiratory effort is even, unlabored, Respiratory pattern is regular, symmetrical. GI: No signs and/or symptoms were reported involving the gastrointestinal system. : No signs and/or symptoms were reported regarding the genitourinary system. EENT: No signs and/or symptoms were reported regarding the EENT system. Derm: No signs and/or symptoms reported regarding the dermatologic system. Musculoskeletal: No signs and/or symptoms reported regarding the musculoskeletal system. 07/15 01:15 Reassessment: pt awaiting medication administration to complete. bm8 02:11 Reassessment: Patient appears in no apparent distress at this time. No changes from bm8 previously documented assessment. Patient and/or family updated on plan of care and expected duration. Pain level reassessed. Patient is alert, oriented x 3, equal unlabored respirations, skin warm/dry/pink. Patient states feeling better. Patient states symptoms have improved. Vital Signs: 07/14 22:39 BP 165 / 94; Pulse 94; Resp 14; Temp 101.4; Pulse Ox 95% ; Weight 117.93 kg; Height 6 vc1 ft. 5 in. ; 23:08 BP 164 / 94; Pulse 103; Resp 18; Temp 101.4; Pulse Ox 97% ; Pain 6/10; bm8 07/15 02:11 BP 148 / 83; Pulse 82; Resp 17; Temp 100.6; Pulse Ox 96% ; Pain 0/10; bm8 07/14 22:39 Body Mass Index 30.83 (117.93 kg, 195.58 cm) vc1 23:08 Pain Scale: Adult bm8 07/15 02:11 Pain Scale: Adult bm8 Leakey Coma Score: 07/14 22:55 Eye Response: to voice(3). Motor Response: obeys commands(6). Verbal Response: vc1 oriented(5). Total: 14. 23:08 Eye Response: to voice(3). Motor Response: obeys commands(6). Verbal Response: bm8 oriented(5). Total: 14. 07/15 02:11 Eye Response: spontaneous(4). Motor Response: obeys commands(6). Verbal Response: bm8 oriented(5). Total: 15. ED Course: 07/14 22:28 Patient arrived in ED. rv1 22:38 Jerrod Rucker MD is Attending Physician. bo1 22:44 Bed in low position. Side rails up X 1. Side rails up X2. Seizure precautions initiated.kmf 22:48 Triage completed. vc1 22:55 Arm band placed on left wrist. vc1 22:58 Len Aguiar, RN is Primary Nurse. bm8 23:48 No provider procedures requiring assistance completed. Initial lab(s) drawn, by , bm8 sent to lab. Inserted saline lock: 22 gauge in left forearm, using aseptic technique. Blood collected. Flushed with 10 mL NS. 07/15 02:12 Provided Education on: post er care. bm8 02:12 IV discontinued, intact, bleeding controlled, No redness/swelling at site. Pressure bm8 dressing applied. Administered Medications: 07/14 23:08 Drug: Acetaminophen PO 1000 mg PO once Route: PO; bm8 07/15 01:00 Follow up: Response: No adverse reaction bm8 01:00 Drug: AZITHromycin IVPB 500 mg IVPB once over 1 hrs; (mix in 250 mL NS) Route: IVPB; bm8 Infused Over: 1 hrs; Site: left forearm; 01:55 Follow up: Response: No adverse reaction; IV Status: Completed infusion; IV Intake: bm8 250ml Medication: 07/14 22:55 VIS not applicable for this client. vc1 Intake: 07/15 01:55 IV: 250ml; Total: 250ml. bm8 Outcome: 00:43 Discharge ordered by . bo1 02:12 Discharged to home via wheelchair, with family, bm8 02:12 Condition: stable 02:12 Discharge instructions given to patient, family, Instructed on discharge instructions, follow up and referral plans. no drinking with medication, no driving heavy equipment, medication usage, safety practices, Demonstrated understanding of instructions, follow-up care, medications, Prescriptions given X 1, 02:13 Patient left the ED. bm8 Signatures: Ana Luisa Elizabeth, RN RN vc1 Cat Ramon1 Cassidy Wan [facility] Jerrod Rucker MD MD bo1 Len Aguiar, RN RN bm8
--- NOTE | 2024-07-15 00:44 | EDPHYS ---
Physician Documentation [facility] Name: Mike Francis III Age: 49 yrs Sex: Male : 1975 Arrival Date: 07/14/2024 Time: 22:26 Bed 4 Private MD: ED Physician Jerrod Rucker HPI: 07/14 23:24 This 49 yrs old Black Male presents to ER via EMS with complaints of Seizure. bo1 23:24 The patient presents after having a single isolated seizure. Character of seizure(s): bo1 Pt was hanging on a support handle in the shower stall, suspected seizure though "tonic/clonic" activity was not witnessed. Seizure onset: just prior to arrival. Context: occurred at home. Seizure Hx: From his hx of TBI and autoimmune encephalitis - care by [facility]. No known recent illness but runny nose thought to be allergies recently. Historical: - Allergies: 22:49 Keppra; vc1 22:49 SHELLFISH; vc1 - Home Meds: 22:49 amlodipine 10 mg tab 1 tab once daily [Active]; atorvastatin oral [Active]; carvedilol vc1 25 mg Oral tab 1 tab 2 times per day [Active]; divalproex 1750 mg Oral tablet twice a day [Active]; ferrous sulfate 325 mg (65 mg iron) Oral tablet daily [Active]; fluticasone propionate inhalation [Active]; gabapentin 300 mg Oral capsule 3 times per day [Active]; glyburide 5 mg Oral tablet 2 times per day [Active]; hydralazine 25 mg Oral tablet 4 times per day [Active]; hydroxyzine HCl 10 mg Oral tablet as needed for Anxiety [Active]; lacosamide oral [Active]; lisinopril 40 mg Oral tablet daily [Active]; metformin 1 Oral tablet 2 times per day [Active]; pantoprazole oral [Active]; risperidone 1 mg/mL Oral solution 2 times per day [Active]; multivitamin Oral tablet daily [Active]; Potassium Chloride Oral [Active]; - PMHx: 22:49 Autoimmune Encephalitis; brain lesions/swelling of the brain; Depression; TBI; CAD; vc1 Seizure; Chronic pain; CVA; Diabetes - NIDDM; DVT; High Cholesterol; Hypertension; Mild Heart Attack x 2; - PSHx: 22:49 Appendectomy; brain surgery (January 2022); vc1 - Immunization history:: Client reports having NOT received the Covid vaccine. - Infectious Disease History:: Denies. - Social history:: Smoking status: unknown. ROS: 23:28 Constitutional: Negative for fever, chills, and weight loss as known bo1 23:28 Cardiovascular: Negative for chest pain, 23:28 Respiratory: Negative for cough, shortness of breath, 23:28 Neuro: Positive for seizure activity, Possible as pt was in shower, unable to stand and was holding on a support handle in the shower stall, 23:28 All other systems are negative, Exam: 07/15 00:39 Constitutional: This is a well developed, well nourished patient who is in no acute bo1 distress. Constitutional: The patient appears in no acute distress, comfortable, non-toxic, At baseline w/o seizure activity. Was febrile and treated with Tylenol ENT: Exam is negative for acute changes, No drooling, airway is patent and open. Neck: External neck: no acute changes, Flexed and somewhat contracted, Cardiovascular: Rate: tachycardic, Rhythm: regular, Pulses: no pulse deficits are appreciated, Respiratory: the patient does not display signs of respiratory distress, Respirations: normal, Breath sounds: are clear throughout, Skin: Warm and dry with good skin turgor. Vital Signs: 07/14 22:39 BP 165 / 94; Pulse 94; Resp 14; Temp 101.4; Pulse Ox 95% ; Weight 117.93 kg; Height 6 vc1 ft. 5 in. ; 23:08 BP 164 / 94; Pulse 103; Resp 18; Temp 101.4; Pulse Ox 97% ; Pain 6/10; bm8 07/15 02:11 BP 148 / 83; Pulse 82; Resp 17; Temp 100.6; Pulse Ox 96% ; Pain 0/10; bm8 07/14 22:39 Body Mass Index 30.83 (117.93 kg, 195.58 cm) vc1 23:08 Pain Scale: Adult bm8 07/15 02:11 Pain Scale: Adult bm8 Pablo Coma Score: 07/14 22:55 Eye Response: to voice(3). Motor Response: obeys commands(6). Verbal Response: vc1 oriented(5). Total: 14. 23:08 Eye Response: to voice(3). Motor Response: obeys commands(6). Verbal Response: bm8 oriented(5). Total: 14. 07/15 02:11 Eye Response: spontaneous(4). Motor Response: obeys commands(6). Verbal Response: bm8 oriented(5). Total: 15. MDM: 07/14 22:38 Medical Screening Exam initiated bo1 07/15 00:37 Differential diagnosis: seizure, Vs infection, viral. RSV positive. Data reviewed: bo1 vital signs, old medical records, lab test result(s). Management of patient was discussed with the following: Pt's spouse and she agrees to prophylaxis with PO abx. ED course: Pt is RSV positive and will be managed as an OP w/o need for transfer. 07/14 22:43 Order name: Flu; Complete Time: 00:01 bo1 07/14 22:43 Order name: SARS-COV-2 Antigen Rapid; Complete Time: 00:01 bo1 07/14 22:43 Order name: RSV; Complete Time: 00:01 bo1 07/14 22:43 Order name: CBC with Diff; Complete Time: 00:23 bo1 07/14 22:43 Order name: CMP; Complete Time: 00:23 bo1 07/14 22:43 Order name: IV Saline Lock; Complete Time: 23:48 bo1 07/14 22:43 Order name: Labs collected and sent; Complete Time: 23:48 bo1 Administered Medications: 07/14 23:08 Drug: Acetaminophen PO 1000 mg PO once Route: PO; bm8 07/15 01:00 Follow up: Response: No adverse reaction bm8 01:00 Drug: AZITHromycin IVPB 500 mg IVPB once over 1 hrs; (mix in 250 mL NS) Route: IVPB; bm8 Infused Over: 1 hrs; Site: left forearm; 01:55 Follow up: Response: No adverse reaction; IV Status: Completed infusion; IV Intake: bm8 250ml Disposition Summary: 07/15/24 00:43 Discharge Ordered Notes: Location: Home bo1 Problem: new bo1 Symptoms: are unchanged bo1 Condition: Stable bo1 Diagnosis - Respiratory syncytial virus as the cause of diseases classified elsewhere bo1 - Other specified viral diseases bo1 - Fever, unspecified bo1 Followup: bo1 - With: Private Physician - When: Upon discharge from the Emergency Department - Reason: Recheck today's complaints, Continuance of care Discharge Instructions: - Discharge Summary Sheet bo1 - Viral Respiratory Infection bo1 - Respiratory Syncytial Virus Test bo1 Forms: - Medication Reconciliation Form bo1 - Antibiotic Education bo1 - Prescription Opioid Use bo1 - Patient Portal Instructions bo1 - Leadership Thank You Letter bo1 Prescriptions: - azithromycin 500 mg Oral tablet - take 1 dose pack ORAL route as directed on dose pack For 250 mg dose pack: take bo1 500 mg today (day 1), then 250 mg for 4 days (days 2-5); 1 unit; Refills: 0, Product Selection Permitted Signatures: Dispatcher [employer] Ana Luisa Crump RN RN vc1 Jerrod Rucker MD MD bo1 Len Aguiar RN RN bm8
[2024-07-15] MEDS ORDERED: AZITHROMYCIN 500 MG INJ IVPB ONE (00:50)
[2024-07-15] MEDS ORDERED: NA CHLORIDE 0.9% 250 ML ONE (00:50)
[2024-07-15 02:46] VITALS: BP 148/83; TEMP 100.6; O2SAT 96
== END 2024-07-15 02:13 | disposition home or self-care (01) ==
LOC: ER 22:26
DX: B33.8 Other specified viral diseases (principal); B97.4 Respiratory syncytial virus as the cause of diseases classified elsewhere; Z87.820 Personal history of traumatic brain injury; Z11.52 Encounter for screening for COVID-19
CPT/HCPCS: 96365; 85025; 36415; 80053; 87807; 87804 ×2; 99284; 87811; J7050